=== PATIENT | female | born 1945 | race African-American/Black ===

== ENCOUNTER 2017-12-02 21:56 | Inpatient (IN) | payer MEDICARE ==
[2017-12-02 22:12] LABS: ADD MAN DIFF? NO
[2017-12-02] MEDS: IV NORMAL SALINE 1000ML BAG 1,000 ML IV (22:16)
[2017-12-02] MEDS: methylPREDNISolone SOD SUCC PF 125 MG/2 ML VIAL. IV (22:17)
[2017-12-02 22:19] LABS: BASO # 0.1 x10^3/uL (0.0-0.2); BASO % 1 % (0-3); EOS # 0.2 x10^3/uL (0.0-0.7); EOS % 2 % (0-3); LYMPH # 2.5 x10^3/uL (1.0-4.8); LYMPH % 24 % (24-48); MEAN CORPUSCULAR HEMOGLOBIN 31 pg (25-35); MEAN CORPUSCULAR HGB CONC 33 g/dL (31-37); MEAN CORPUSCULAR VOLUME 94 fL (79-100); MONO # 0.8 x10^3/uL (0.0-1.1); MONO % 8 % (0-9); NEUT % 66 % (31-73); PLATELET COUNT 260 x10^3/uL (140-400); RED BLOOD COUNT 1.82 x10^6/uL (3.50-5.40); RED CELL DISTRIBUTION WIDTH 16.6 % (11.5-14.5); WHITE BLOOD COUNT 10.6 x10^3/uL (4.0-11.0)
[2017-12-02 22:24] LABS: HEMOGLOBIN 5.6 g/dL (12.0-15.5)
[2017-12-02] MEDS: IPRATRPIUM/ALBUTEROL 0.5/2.5MG 3 ML NEBU. NEB ×2 (22:26→22:56)
[2017-12-02 22:31] LABS: ANION GAP 13 (6-14); BLOOD UREA NITROGEN 23 mg/dL (7-20); CALCIUM 8.4 mg/dL (8.5-10.1); CARBON DIOXIDE 24 mmol/L (21-32); CHLORIDE 107 mmol/L (98-107); CREATININE 1.2 mg/dL (0.6-1.0); GFR 53.3; GLUCOSE 196 mg/dL (70-99); POTASSIUM 3.9 mmol/L (3.5-5.1); SODIUM 144 mmol/L (136-145)
[2017-12-02 22:40] LABS: TROPONINI < 0.017 ng/mL (0.000-0.055)
[2017-12-02 23:32] LABS: INR 1.2 (0.8-1.1); PARTIAL THROMBOPLASTIN TIME 31 SEC (24-38); PROTHROMBIN TIME PATIENT 14.7 SEC (11.7-14.0)
[2017-12-03] MEDS ORDERED: ONDANSETRON PF 4 MG/2 ML VIAL. IV (00:45)
[2017-12-03 02:00] LABS: IMMEDIATE SPIN CROSSMATCH 1 4
[2017-12-03] MEDS: IV NORMAL SALINE 1000ML BAG 1,000 ML IV ×2 (04:46→18:02)
[2017-12-03] MEDS: IPRATRPIUM/ALBUTEROL 0.5/2.5MG 3 ML NEBU. NEB ×4 (07:24→19:34)
[2017-12-03 07:31] LABS: TROPONINI < 0.017 ng/mL (0.000-0.055)
[2017-12-03 07:37] LABS: FECAL OB PT POSITIVE (NEG); NEG OBC FOB NEG; POS OBC FOB POS
[2017-12-03 08:23] LABS: POC GLUCOSE 175 mg/dL (70-99)
[2017-12-03 12:45] LABS: POC GLUCOSE 178 mg/dL (70-99)
[2017-12-03] MEDS: FAMOTIDINE 20 MG/2 ML VIAL IVP ×2 (13:02→20:31)
[2017-12-03] MEDS: methylPREDNISolone SOD SUCC PF 40 MG/ML VIAL. IV ×2 (13:02→20:34)
[2017-12-03 13:38] LABS: ADD MAN DIFF? NO
[2017-12-03 13:41] LABS: BASO % 0 % (0-3); EOS % 0 % (0-3); HEMATOCRIT 24.9 % (36.0-47.0); HEMOGLOBIN 8.3 g/dL (12.0-15.5); LYMPH % 14 % (24-48); MEAN CORPUSCULAR HEMOGLOBIN 31 pg (25-35); MEAN CORPUSCULAR HGB CONC 34 g/dL (31-37); MEAN CORPUSCULAR VOLUME 91 fL (79-100); MONO # 0.2 x10^3/uL (0.0-1.1); MONO % 3 % (0-9); NEUT # 5.7 x10^3uL (1.8-7.7); NEUT % 83 % (31-73); PLATELET COUNT 231 x10^3/uL (140-400); RED BLOOD COUNT 2.74 x10^6/uL (3.50-5.40); RED CELL DISTRIBUTION WIDTH 15.8 % (11.5-14.5); WHITE BLOOD COUNT 6.9 x10^3/uL (4.0-11.0)
[2017-12-03 14:38] LABS: ALBUMIN 2.9 g/dL (3.4-5.0); ALBUMIN/GLOBULIN RATIO 0.9 (1.0-1.7); ALK PHOS 52 U/L (46-116); ALT (SGPT) 23 U/L (14-59); ANION GAP 13 (6-14); AST (SGOT) 17 U/L (15-37); BLOOD UREA NITROGEN 19 mg/dL (7-20); BUN/CREATININE RATIO 19 (6-20); CALCIUM 8.7 mg/dL (8.5-10.1); CARBON DIOXIDE 23 mmol/L (21-32); CHLORIDE 107 mmol/L (98-107); GFR 65.8; GLUCOSE 160 mg/dL (70-99); POTASSIUM 4.2 mmol/L (3.5-5.1); SODIUM 143 mmol/L (136-145); TOTAL BILIRUBIN 0.4 mg/dL (0.2-1.0); TOTAL PROTEIN 6.1 g/dL (6.4-8.2)
[2017-12-03 14:45] LABS: TROPONINI < 0.017 ng/mL (0.000-0.055)
[2017-12-03 17:06] LABS: POC GLUCOSE 164 mg/dL (70-99)
[2017-12-03] MEDS: DULoxetine HCL 30 MG CAPSULE.DR PO (17:55)
[2017-12-03] MEDS: rOPINIRole 1 MG TABLET. PO (17:55)
[2017-12-03] MEDS: SPIRONOLACTONE 25 MG TABLET PO (17:55)
[2017-12-03] MEDS: LOSARTAN POTASSIUM 50 MG TABLET. PO (17:55)
[2017-12-03] MEDS: traMADol 50 MG TABLET PO (17:56)
[2017-12-03] MEDS: MEMANTINE 10 MG TABLET. PO (20:29)
[2017-12-03 20:52] LABS: POC GLUCOSE 171 mg/dL (70-99)
[2017-12-03] MEDS: ACETAMINOPHEN 325 MG TABLET. PO (22:46)
[2017-12-04 05:15] LABS: ADD MAN DIFF? NO
[2017-12-04 05:32] LABS: BASO % 0 % (0-3); EOS % 0 % (0-3); HEMATOCRIT 27.9 % (36.0-47.0); HEMOGLOBIN 9.2 g/dL (12.0-15.5); LYMPH # 0.8 x10^3/uL (1.0-4.8); LYMPH % 8 % (24-48); MEAN CORPUSCULAR HEMOGLOBIN 30 pg (25-35); MEAN CORPUSCULAR HGB CONC 33 g/dL (31-37); MEAN CORPUSCULAR VOLUME 91 fL (79-100); MONO # 0.2 x10^3/uL (0.0-1.1); MONO % 2 % (0-9); NEUT # 9.2 x10^3uL (1.8-7.7); NEUT % 89 % (31-73); PLATELET COUNT 291 x10^3/uL (140-400); RED BLOOD COUNT 3.07 x10^6/uL (3.50-5.40); RED CELL DISTRIBUTION WIDTH 16.6 % (11.5-14.5); WHITE BLOOD COUNT 10.3 x10^3/uL (4.0-11.0)
[2017-12-04] MEDS: methylPREDNISolone SOD SUCC PF 40 MG/ML VIAL. IV (05:44)
[2017-12-04 05:53] LABS: ANION GAP 14 (6-14); BLOOD UREA NITROGEN 16 mg/dL (7-20); CALCIUM 8.9 mg/dL (8.5-10.1); CARBON DIOXIDE 21 mmol/L (21-32); CHLORIDE 106 mmol/L (98-107); GFR 65.8; GLUCOSE 166 mg/dL (70-99); POTASSIUM 4.2 mmol/L (3.5-5.1); SODIUM 141 mmol/L (136-145)
[2017-12-04] MEDS: IPRATRPIUM/ALBUTEROL 0.5/2.5MG 3 ML NEBU. NEB (07:46)
[2017-12-04 08:48] LABS: POC GLUCOSE 167 mg/dL (70-99)
[2017-12-04] MEDS: rOPINIRole 1 MG TABLET. PO (09:02)
[2017-12-04] MEDS: amLODIPine BESYLATE 10 MG TABLET PO (09:02)
[2017-12-04] MEDS: MEMANTINE 10 MG TABLET. PO (09:02)
[2017-12-04] MEDS: SPIRONOLACTONE 25 MG TABLET PO (09:02)
[2017-12-04] MEDS: FAMOTIDINE 20 MG/2 ML VIAL IVP (09:03)
[2017-12-04] MEDS: DULoxetine HCL 30 MG CAPSULE.DR PO (09:03)
[2017-12-04] MEDS: LOSARTAN POTASSIUM 50 MG TABLET. PO (09:03)
[2017-12-04 11:50] LABS: POC GLUCOSE 163 mg/dL (70-99)
== END 2017-12-04 13:30 | disposition home health service (06) | DRG 377 ==
LOC: 2 SOUTH 12-03 01:00 → ER 21:56
PROVIDERS: Neurological Surgery
PROC: 30233N1 Transfusion of Nonautologous Red Blood Cells into Peripheral Vein, Percutaneous Approach (ICD-10-PCS; principal; 2017-12-03)
DX: K57.31 Diverticulosis of large intestine without perforation or abscess with bleeding (principal); J96.01 Acute respiratory failure with hypoxia; E44.0 Moderate protein-calorie malnutrition; D62 Acute posthemorrhagic anemia; J44.1 Chronic obstructive pulmonary disease with (acute) exacerbation; E86.0 Dehydration; E11.9 Type 2 diabetes mellitus without complications; E78.00 Pure hypercholesterolemia, unspecified; E78.5 Hyperlipidemia, unspecified; Z68.28 Body mass index [BMI] 28.0-28.9, adult; F03.90 Unspecified dementia, unspecified severity, without behavioral disturbance, psychotic disturbance, mood disturbance, and anxiety; F17.210 Nicotine dependence, cigarettes, uncomplicated; F32.9 Major depressive disorder, single episode, unspecified; F41.9 Anxiety disorder, unspecified; G47.33 Obstructive sleep apnea (adult) (pediatric); I10 Essential (primary) hypertension; K21.9 Gastro-esophageal reflux disease without esophagitis; K29.80 Duodenitis without bleeding; K55.20 Angiodysplasia of colon without hemorrhage; K59.00 Constipation, unspecified; Z82.3 Family history of stroke; Z82.49 Family history of ischemic heart disease and other diseases of the circulatory system; Z86.010 Personal history of colon polyps; Z88.0 Allergy status to penicillin
CPT/HCPCS: 36415; 71045; 71046; 78278; 80048; 80053; 82274; 82962; 84484; 85025; 85610; 85730; 86850; 86900; 86901; 86920; 93005; 94618; 94640; 94760; 96361; 96374; 99291-25; A9560; J2920; J2930; J7030; J7620; P9016; S0028

== ENCOUNTER 2018-04-20 12:14 | Emergency (ER) | payer MEDICARE ==
[2018-04-20] MEDS: IPRATRPIUM/ALBUTEROL 0.5/2.5MG 3 ML NEBU. NEB (13:15)
[2018-04-20] MEDS: predniSONE 20 MG TABLET PO (14:03)
[2018-04-20 14:22] LABS: ADD MAN DIFF? NO
[2018-04-20 14:24] LABS: BASO # 0.1 x10^3/uL (0.0-0.2); BASO % 1 % (0-3); EOS # 0.1 x10^3/uL (0.0-0.7); EOS % 1 % (0-3); HEMATOCRIT 44.8 % (36.0-47.0); HEMOGLOBIN 15.2 g/dL (12.0-15.5); LYMPH # 1.9 x10^3/uL (1.0-4.8); LYMPH % 17 % (24-48); MEAN CORPUSCULAR HEMOGLOBIN 30 pg (25-35); MEAN CORPUSCULAR HGB CONC 34 g/dL (31-37); MEAN CORPUSCULAR VOLUME 88 fL (79-100); MONO # 0.9 x10^3/uL (0.0-1.1); MONO % 8 % (0-9); NEUT # 8.3 x10^3uL (1.8-7.7); NEUT % 74 % (31-73); PLATELET COUNT 202 x10^3/uL (140-400); RED BLOOD COUNT 5.12 x10^6/uL (3.50-5.40); RED CELL DISTRIBUTION WIDTH 16.7 % (11.5-14.5); WHITE BLOOD COUNT 11.2 x10^3/uL (4.0-11.0)
[2018-04-20 14:43] LABS: ANION GAP 7 (6-14); BLOOD UREA NITROGEN 11 mg/dL (7-20); BUN/CREATININE RATIO 14 (6-20); CALCIUM 9.2 mg/dL (8.5-10.1); CARBON DIOXIDE 28 mmol/L (21-32); CHLORIDE 103 mmol/L (98-107); CREATININE 0.8 mg/dL (0.6-1.0); GFR 84.8; GLUCOSE 106 mg/dL (70-99); POTASSIUM 3.8 mmol/L (3.5-5.1); SODIUM 138 mmol/L (136-145)
[2018-04-20 14:49] LABS: ALBUMIN 3.7 g/dL (3.4-5.0); ALBUMIN/GLOBULIN RATIO 0.8 (1.0-1.7); ALK PHOS 92 U/L (46-116); ALT (SGPT) 33 U/L (14-59); AST (SGOT) 22 U/L (15-37); TOTAL BILIRUBIN 0.6 mg/dL (0.2-1.0); TOTAL PROTEIN 8.1 g/dL (6.4-8.2)
[2018-04-20] MEDS: ALBUTEROL SULFATE 2.5 MG/3 ML NEBU. CONT NEB (15:21)
== END 2018-04-20 21:06 | disposition left against medical advice (07) ==
LOC: ER 12:14
DX: J44.9 Chronic obstructive pulmonary disease, unspecified (principal); E78.00 Pure hypercholesterolemia, unspecified; E11.9 Type 2 diabetes mellitus without complications; I10 Essential (primary) hypertension; F41.9 Anxiety disorder, unspecified; Z99.81 Dependence on supplemental oxygen; F17.210 Nicotine dependence, cigarettes, uncomplicated; Z88.0 Allergy status to penicillin
CPT/HCPCS: 36415; 71046; 80053; 85025; 93005; 94618; 94640; 94644; 99285-25; J7512; J7613; J7620

== ENCOUNTER 2018-12-10 20:12 | Emergency (ER) | payer MEDICARE ==
[~2018-12-10] VITALS: Ht 170.2 cm; Wt 81.6 kg
[~2018-12-10 20:12] MED LIST: AMLO10TA6 PO; ASCO-78 PO; BISO5TAB2 PO; DIAZ5TAB PO; DONE10TA7 PO; DULO20CA PO; FERR250T PO; FLUT1DIS3 IH; Fluticasone/Vilanterol INH; GABA800T3 PO; GUAI5LIQ PO; HYDR-2678 PO; LOSA100T14 PO; LOSA1TAB22 PO; MEMA10TA PO; METF500T9 PO; METH500T7 PO; NAPR-683 PO; OXYB10TA PO; OXYB15TA PO; OXYB5TAB7 PO; PANT40GR PO; POTA10TA12 PO; PRED-220 PO; PRED50TA PO; ROPI1TAB PO; SPIR25TA5 PO; VENTOLIN HFA18 GM INH; [UNRECOGNIZED DRUG - REMARK]
--- NOTE | 2018-12-10 20:39 | PHYS DOC ---
Past Medical History Past Medical History: Anxiety, COPD, Diabetes-Type II, GI Bleed, High Cholesterol, Hypertension, Other Additional Past Medical Histor: "MEMORY LOSS" (OLYA MORE APRN) Past Surgical History: Tonsillectomy, Other Additional Past Surgical Histo: BACK SURGERY X2, POLYPS REMOVED FROM THROAT (OLYA MORE APRN) Alcohol Use: Occasionally Drug Use: None (OLYA MORE APRN) Adult General Chief Complaint Chief Complaint: MECHANICAL FALL HPI HPI Patient is a 72 year old female who presents with tripped over her oxygen cord at home at 1930 and hit her face. Patient's bottom tooth went through her top lip. There are no broken teeth. (OLYA MORE APRN) Review of Systems Review of Systems Constitutional: Denies fever or chills [] Eyes: Denies change in visual acuity, redness, or eye pain [] HENT: Denies nasal congestion or sore throat [] Respiratory: Denies cough or shortness of breath [] Cardiovascular: No additional information not addressed in HPI [] GI: Denies abdominal pain, nausea, vomiting, bloody stools or diarrhea [] : Denies dysuria or hematuria [] Musculoskeletal: Denies back pain or joint pain [] Integument: laceration to inner upper lip. Denies rash or skin lesions [] Neurologic: Denies headache, focal weakness or sensory changes [] All other systems were reviewed and found to be within normal limits, except as documented in this note. (OLYA MORE APRN) Current Medications Current Medications Current Medications Medications (Trade) Dose Ordered Sig/Buffy Start Time Stop Time Status Last Admin Dose Admin Lidocaine/ Epinephrine (Let Topical) 3 ml 1X ONCE 12/10/18 20:45 12/10/18 20:46 DC 12/10/18 20:51 3 ML Lidocaine/Sodium Bicarbonate (Buffered Lidocaine 1%) 3 ml 1X ONCE 12/10/18 20:45 12/10/18 20:46 DC 12/10/18 20:52 3 ML Oxycodone/ Acetaminophen (Percocet 5/325) 1 tab 1X ONCE 12/10/18 21:30 12/10/18 21:31 DC 12/10/18 21:32 1 TAB (LUCY WHALEN DO) Allergies Allergies Allergies Coded Allergies Type Severity Reaction Last Updated Verified Penicillins Allergy Intermediate 11/22/18 Yes (LUCY WHALEN DO) Physical Exam Physical Exam Constitutional: Well developed, well nourished, no acute distress, non-toxic appearance. [] HENT: Normocephalic, atraumatic, bilateral external ears normal, oropharynx moist, no oral exudates, nose normal. [] Eyes: PERRLA, EOMI, conjunctiva normal, no discharge. [] Neck: Normal range of motion, no tenderness, supple, no stridor. [] Cardiovascular:Heart rate regular rhythm, no murmur [] Lungs & Thorax: Bilateral breath sounds clear to auscultation [] Abdomen: Bowel sounds normal, soft, no tenderness, no masses, no pulsatile masses. [] Skin: Laceration to inner mucosa of upper lip. Warm, dry, no erythema, no rash. [] Back: No tenderness, no CVA tenderness. [] Extremities: No tenderness, no cyanosis, no clubbing, ROM intact, no edema. [] Neurologic: Alert and oriented X 3, normal motor function, normal sensory function, no focal deficits noted. [] Psychologic: Affect normal, judgement normal, mood normal. [] (OLYA MORE APRN) Physical Exam Constitutional: No acute distress, non-toxic appearance. [] HENT: Normocephalic, atraumatic,mucosal lacerations to upper lip, no lilian border involvement Neurologic: Alert and oriented X 3, no focal deficits noted. [] (LUCY WHALEN DO) Current Patient Data Vital Signs Vital Signs Date Time Temp Pulse Resp B/P (MAP) Pulse Ox O2 Delivery O2 Flow Rate FiO2 12/10/18 22:00 79 20 100 12/10/18 21:32 Nasal Cannula 2.0 12/10/18 20:14 98.0 125/67 (86) 98.0 (LUCY WHALEN DO) EKG EKG [] (OLYA MORE APRN) Radiology/Procedures Radiology/Procedures CT HEAD, MAXILLOFACIAL, AND CERVICAL SPINE (OLYA MORE APRN) Impressions: [facility] [address] [place] [address] IMAGING REPORT Signed PATIENT: ELLE LATHAM ACCOUNT: [id number] : 1945 LOCATION: ER AGE: 72 SEX: F EXAM STATUS: REG ER ORD. PHYSICIAN: OLYA MORE APRN REASON: FALL PROCEDURE: CT CERVICAL SPINE WO CONTRAST PQRS Compliance Statement: One or more of the following individualized dose reduction techniques were utilized for this examination: 1. Automated exposure control 2. Adjustment of the mA and/or kV according to patient size 3. Use of iterative reconstruction technique CT head , maxillofacial and cervical spine without contrast 12/10/2018 8:31 PM INDICATION: Fall COMPARISON: CT head November 20, 2018 TECHNIQUE: Multiple axial CT images of the head were obtained from skull base through the vertex without intravenous contrast. Multiple axial CT images of the cervical spine and maxillofacial structures were obtained without intravenous contrast. Coronal and sagittal reformats are provided. FINDINGS: Head and maxillofacial: Ventricles, sulci and basal cisterns are within normal limits. There is no hydrocephalus. Jeong-white matter differentiation is normal. There is no acute intracranial hemorrhage. There is no mass, mass effect or midline shift. Posterior fossa is normal in appearance. Orbits are spherical and contour. Bilateral lens replacement is noted. There is no intraconal or extraconal mass is identified. Extraocular muscles are normal in appearance. Osseous orbits are intact. Paranasal sinuses are well aerated. Nasal septum is predominantly midline. Ostiomeatal units are widely patent. Skull base is intact. Soft tissue swelling is identified along the ventral aspect of the mandible. Mandible and maxilla are intact. Dentition appear intact. Cervical spine: Alignment of the cervical spine is normal. Skull base is intact. Craniocervical junction is normal in appearance. Atlantoaxial articulation is normal. Vertebral body heights are maintained without evidence for acute fracture. There is straightening of the normal cervical lordosis. There is moderate disc height loss at C4-C5, C5-C6 and C6-C7. There is endplate remodeling at C5-C6 and C6-C7 with endplate sclerosis. Superior endplate Schmorl's node is identified at C7. There is minimal height loss at C7 which is age indeterminate. There is no prevertebral soft tissue swelling. Thyroid gland is normal in appearance. Visualized portions of the lung apices are normal without evidence for suspicious pulmonary nodule or infiltrate. IMPRESSION: 1. No acute intracranial hemorrhage. Subcutaneous soft tissue swelling along the ventral mandible without maxillofacial fracture. 2. No acute malalignment. There is superior endplate Schmorl's node at C7 with minimal height loss. Findings may represent superior plate compression fracture in the appropriate clinical setting. Correlate with point tenderness. Alternatively, these findings may be chronic and secondary to remodeling from degenerative disc disease. Electronically signed by: Ludwin Erwin MD (12/10/2018 9:34 PM) [facility] DICTATED and SIGNED BY: LUDWIN ERWIN MD DATE: 12/10/182124 [facility] [address] [place], [place] [id number] IMAGING REPORT Signed PATIENT: ELLE LATHAM ACCOUNT: [id number] : 1945 LOCATION: ER AGE: 72 SEX: F EXAM STATUS: REG ER ORD. PHYSICIAN: OLYA MORE APRN REASON: FALL PROCEDURE: CT HEAD AND MAXILLOFACIAL WO PQRS Compliance Statement: One or more of the following individualized dose reduction techniques were utilized for this examination: 1. Automated exposure control 2. Adjustment of the mA and/or kV according to patient size 3. Use of iterative reconstruction technique CT head , maxillofacial and cervical spine without contrast 12/10/2018 8:31 PM INDICATION: Fall COMPARISON: CT head November 20, 2018 TECHNIQUE: Multiple axial CT images of the head were obtained from skull base through the vertex without intravenous contrast. Multiple axial CT images of the cervical spine and maxillofacial structures were obtained without intravenous contrast. Coronal and sagittal reformats are provided. FINDINGS: Head and maxillofacial: Ventricles, sulci and basal cisterns are within normal limits. There is no hydrocephalus. Jeong-white matter differentiation is normal. There is no acute intracranial hemorrhage. There is no mass, mass effect or midline shift. Posterior fossa is normal in appearance. Orbits are spherical and contour. Bilateral lens replacement is noted. There is no intraconal or extraconal mass is identified. Extraocular muscles are normal in appearance. Osseous orbits are intact. Paranasal sinuses are well aerated. Nasal septum is predominantly midline. Ostiomeatal units are widely patent. Skull base is intact. Soft tissue swelling is identified along the ventral aspect of the mandible. Mandible and maxilla are intact. Dentition appear intact. Cervical spine: Alignment of the cervical spine is normal. Skull base is intact. Craniocervical junction is normal in appearance. Atlantoaxial articulation is normal. Vertebral body heights are maintained without evidence for acute fracture. There is straightening of the normal cervical lordosis. There is moderate disc height loss at C4-C5, C5-C6 and C6-C7. There is endplate remodeling at C5-C6 and C6-C7 with endplate sclerosis. Superior endplate Schmorl's node is identified at C7. There is minimal height loss at C7 which is age indeterminate. There is no prevertebral soft tissue swelling. Thyroid gland is normal in appearance. Visualized portions of the lung apices are normal without evidence for suspicious pulmonary nodule or infiltrate. IMPRESSION: 1. No acute intracranial hemorrhage. Subcutaneous soft tissue swelling along the ventral mandible without maxillofacial fracture. 2. No acute malalignment. There is superior endplate Schmorl's node at C7 with minimal height loss. Findings may represent superior plate compression fracture in the appropriate clinical setting. Correlate with point tenderness. Alternatively, these findings may be chronic and secondary to remodeling from degenerative disc disease. Electronically signed by: Ludwin Erwin MD (12/10/2018 9:34 PM) [facility] DICTATED and SIGNED BY: LUDWIN ERWIN MD DATE: 12/10/182124 (OLYA MORE APRN) Course & Med Decision Making Course & Med Decision Making Patient is a 72 year old female who presents with tripped over her oxygen cord at home at 1930 and hit her face. Patient's bottom tooth went through her top lip. There are no broken teeth. Patient is alert and oriented. Strength in full clear sentences. Patient has no facial pain with palpation but she does have some slight tenderness and pain on her upper lip and right above her upper teeth. Patient has full range of motion of her neck. She has no tenderness in her neck or pain in her neck. Patient denies hitting her head elsewhere. Patient has no other trauma on her body. Patient has no spinal bony point tenderness. Patient moves all extremities with equal strength. Patient can move all extremities at all joints without pain or problem. There are no deformities seen. Patient states she's had a tetanus shot in the last 5 years. Patient denies LOC. Patient denies a headache or nausea, vomiting, neck pain or stiffness. Patient states her pain is a 5 out of 10. Patient states she last took a Percocet this morning. Patient will be given one Percocet in the ED. Patient has Percocet at home that she can take for pain and Chlorhexidine mouth wash. Laceration Repair by me: Anesthesia: 1% lidocaine locally Location: Inner Mucosa of upper lip Tendon/Joint/Nerves: No injury Foreign body: None detected after copious irrigation and exploration Technique: 4 Simple Interrupted Sutures Complexity: No subcutaneous sutures/mucosal repair/edge excision Post Closure Length: 1 cm Patient's bleeding was easily controlled in the department and there is no indication of anemia. No evidence of compartment syndrome, neurologic injury, vascular injury, open joint, tendon laceration, or foreign body. Patient is appropriate for outpatient follow up. 48 hour wound check. Scar minimization instructions given. (OLYA MORE APRN) Dragon Disclaimer Dragon Disclaimer This electronic medical record was generated, in whole or in part, using a voice recognition dictation system. (OLYA MORE MATE SHIP) Departure Departure Impression: Primary Impression: Fall Additional Impression: Laceration of mouth Disposition: HOME, SELF-CARE Condition: STABLE Referrals: MINI TREJO (PCP) Patient Instructions: Fall Prevention and Home Safety, Laceration Care, Adult, Mouth Laceration Additional Instructions: Return to the ER in 5-7 days for sutural removal. Use medication as described. Member to rinse out her mouth after eating or smoking. Try not to smoke. Try using ice for pain control with your pain medication. Scripts Chlorhexidine Gluconate (CHLORHEXIDINE GLUCONATE) 473 Ml Mouthwash 473 ML MM BID for 7 Days, #1 [facility] [place]: OLYA MORE MATE SHIP 12/10/18 Attending Signature Attending Signature I have personally interviewed and examined the patient. All charts, labs, and imaging studies were reviewed. I agree with the PA/DIRECTOR OF FRONT OFFICE's findings, exam, and plan. (LUCY WHALEN DO) Problem Qualifiers Primary Impression: Fall Encounter type: initial encounter Qualified Codes: W19.XXXA - Unspecified fall, initial encounter Additional Impression: Laceration of mouth Encounter type: initial encounter Qualified Codes: S01.512A - Laceration without foreign body of oral cavity, initial encounter OLYA MORE APRN Dec 10, 2018 20:39 LUCY WHALEN DO Dec 10, 2018 22:42
[2018-12-10] MEDS ORDERED: LIDOCAINE WITH 8.4% SOD BICARB 3 ML DISP.SYRIN. INJ ONE (20:45)
[2018-12-10] MEDS ORDERED: LIDOCAINE/EPI/TETRACAINE TOPICAL GEL 3 ML. TP ONE (20:45)
[2018-12-10] MEDS ORDERED: oxyCODONE/APAP 5/325 1 TAB TABLET PO ONE (21:30)
--- NOTE | 2018-12-10 21:39 | RAD ---
PQRS Compliance Statement: One or more of the following individualized dose reduction techniques were utilized for this examination: 1. Automated exposure control 2. Adjustment of the mA and/or kV according to patient size 3. Use of iterative reconstruction technique CT head , maxillofacial and cervical spine without contrast 12/10/2018 8:31 PM INDICATION: Fall COMPARISON: CT head November 20, 2018 TECHNIQUE: Multiple axial CT images of the head were obtained from skull base through the vertex without intravenous contrast. Multiple axial CT images of the cervical spine and maxillofacial structures were obtained without intravenous contrast. Coronal and sagittal reformats are provided. FINDINGS: Head and maxillofacial: Ventricles, sulci and basal cisterns are within normal limits. There is no hydrocephalus. Jeong-white matter differentiation is normal. There is no acute intracranial hemorrhage. There is no mass, mass effect or midline shift. Posterior fossa is normal in appearance. Orbits are spherical and contour. Bilateral lens replacement is noted. There is no intraconal or extraconal mass is identified. Extraocular muscles are normal in appearance. Osseous orbits are intact. Paranasal sinuses are well aerated. Nasal septum is predominantly midline. Ostiomeatal units are widely patent. Skull base is intact. Soft tissue swelling is identified along the ventral aspect of the mandible. Mandible and maxilla are intact. Dentition appear intact. Cervical spine: Alignment of the cervical spine is normal. Skull base is intact. Craniocervical junction is normal in appearance. Atlantoaxial articulation is normal. Vertebral body heights are maintained without evidence for acute fracture. There is straightening of the normal cervical lordosis. There is moderate disc height loss at C4-C5, C5-C6 and C6-C7. There is endplate remodeling at C5-C6 and C6-C7 with endplate sclerosis. Superior endplate Schmorl's node is identified at C7. There is minimal height loss at C7 which is age indeterminate. There is no prevertebral soft tissue swelling. Thyroid gland is normal in appearance. Visualized portions of the lung apices are normal without evidence for suspicious pulmonary nodule or infiltrate. IMPRESSION: 1. No acute intracranial hemorrhage. Subcutaneous soft tissue swelling along the ventral mandible without maxillofacial fracture. 2. No acute malalignment. There is superior endplate Schmorl's node at C7 with minimal height loss. Findings may represent superior plate compression fracture in the appropriate clinical setting. Correlate with point tenderness. Alternatively, these findings may be chronic and secondary to remodeling from degenerative disc disease. Electronically signed by: Mary Lorenzo MD (12/10/2018 9:34 PM) [facility]
[2018-12-10] MEDS ORDERED: CHLO473M MM (22:22)
[2018-12-10 22:30] VITALS: BP 113/55
== END 2018-12-10 22:34 | disposition home or self-care (01) ==
LOC: ER 20:12
DX: S01.512A Laceration without foreign body of oral cavity, initial encounter (principal); E78.00 Pure hypercholesterolemia, unspecified; I10 Essential (primary) hypertension; E11.9 Type 2 diabetes mellitus without complications; J44.9 Chronic obstructive pulmonary disease, unspecified; Z88.0 Allergy status to penicillin; W01.198A Fall on same level from slipping, tripping and stumbling with subsequent striking against other object, initial encounter; Y93.89 Activity, other specified; Y92.89 Other specified places as the place of occurrence of the external cause; Y99.8 Other external cause status
CPT/HCPCS: 12011; 70450; 70486; 72125; 99285-25

== ENCOUNTER 2018-12-14 13:02 | Inpatient (IN) | payer MEDICARE ==
[~2018-12-14] VITALS: Ht 170.2 cm; Wt 85.0 kg
[2018-12-14] VITALS (8 sets, daily range): BP systolic 98–146; BP diastolic 61–73
[~2018-12-14 13:02] MED LIST changes: -AMLO10TA6 PO; +AMLO10TA8 PO; +CHLO473M MM; -GABA800T3 PO; +GABA800T5 PO
[2018-12-14] MEDS ORDERED: IV NORMAL SALINE 1000ML BAG 1,000 ML IV ONE (13:30)
[2018-12-14 14:12] LABS: BASO % 1 % (0-3); EOS % 0 % (0-3); LYMPH # 1.5 x10^3/uL (1.0-4.8); LYMPH % 17 % (24-48); MEAN CORPUSCULAR HEMOGLOBIN 23 pg (25-35); MEAN CORPUSCULAR HGB CONC 31 g/dL (31-37); MEAN CORPUSCULAR VOLUME 75 fL (79-100); MONO # 0.8 x10^3/uL (0.0-1.1); MONO % 9 % (0-9); NEUT # 6.1 x10^3uL (1.8-7.7); NEUT % 73 % (31-73); PLATELET COUNT 336 x10^3/uL (140-400); RED BLOOD COUNT 2.58 x10^6/uL (3.50-5.40); RED CELL DISTRIBUTION WIDTH 20.5 % (11.5-14.5); WHITE BLOOD COUNT 8.5 x10^3/uL (4.0-11.0)
--- NOTE | 2018-12-14 14:13 | PDOC2 ---
ABRAHAM WEBER PORCELAIN ENAMELER 12/14/18 1413: CONSULT Date of Consult Date of Consult DATE: 12/14/18 TIME: 14:03 Reason for Consult Reason for Consult: GI bleed Referring Physician Referring Physician: ER Identification/Chief Complaint Chief Complaint gi bleed Source Source: Chart review, Patient History of Present Illness Reason for Visit: Ongoing issues with GI bleed for several months, has been following with Dr Austin 11/24 at [facility] CT showed focal extravasation mid sigmoid, however negative bleeding scan capsule study study 12/07 showed retained blood in right colon colonoscopy showed diverticula in sigmoid, no other findings and no active bleeding Returns due to anemia when labs done at GI office yesterday Past Medical History Cardiovascular: HTN Pulmonary: Asthma, Bronchitis, COPD Past Surgical History Past Surgical History: No pertinent history Family History Family History: No Significant, Heart Disease Social History Social History: Parent <1 pack per day ALCOHOL: none Drugs: None Lives: with Family Current Medications Current Medications Current Medications Sodium Chloride 1,000 ml @ 1,000 mls/hr 1X ONCE IV Last administered on at 13:52; Start 12/14/18 at 13:30; Stop 12/14/18 at 14:29 Active Scripts Active Chlorhexidine Gluconate 473 Ml Mouthwash 473 Ml MM BID 7 Days Vitamin C (Ascorbate Calcium) 500 Mg Tablet 500 Mg PO DAILY 30 Days Slow Release Iron (Ferrous Sulfate) 250 Mg Tablet.er 250 Mg PO DAILY 30 Days Protonix (Pantoprazole Sodium) 40 Mg Grankofikt.dr 40 Mg PO DAILY 30 Days Reported Metformin Hcl Er (Metformin Hcl) 500 Mg Tab.er.24h 1 Tab PO DAILY Namenda (Memantine Hcl) 10 Mg Tablet 1 Tab PO BID Losartan Potassium 100 Mg Tablet 100 Mg PO DAILY Spironolactone 25 Mg Tablet 1 Tab PO DAILY Ventolin Hfa Inhaler (Albuterol Sulfate) 18 Gm Hfa.aer.ad 2 Puff INH Q4HRS Cymbalta (Duloxetine Hcl) 20 Mg Capsule.dr 90 Mg PO DAILY Requip (Ropinirole Hcl) 1 Mg Tablet 3 Mg PO DAILY Amlodipine Besylate 10 Mg Tablet 10 Mg PO DAILY Allergies Allergies: Coded Allergies: Penicillins (Verified Allergy, Intermediate, 11/22/18) ROS General: YES: Appetite (lack); No: Chills PSYCHOLOGICAL ROS: No: Anxiety, Depression Eyes: No Blurry vision, No Double vision HEENT: No: Heacaches, Sore Throat Hematological and Lymphatic: YES: Bleeding Problems; No: Blood Clots Respiratory: YES: Shortness of breath; No: Cough Cardiovascular: No Chest Pain, No Palpitations Gastrointestinal: No Nausea, No Abdominal Pain Genitourinary: No Dysuria, No Hematuria Musculoskeletal: Yes Muscular Weakness; No Joint Pain Neurological: No Impaired Coord/balance, No Numbness/Tingling Skin: No Pruritus, No Rash Physical Exam General: Alert, Oriented X3, Cooperative, No acute distress HEENT: PERRLA, Mucous membr. moist/pink Lungs: Clear to auscultation, Normal air movement Heart: Regular rate, Normal S1, Normal S2, No murmurs Abdomen: Soft, Other (ND, NTTP) Extremities: No clubbing, No cyanosis Skin: No rashes, No breakdown Neuro: Normal gait, Normal speech Psych/Mental Status: Mental status NL, Mood NL MUSCULOSKELETAL: No deformity, No swelling Vitals VITALS Vital Signs Date Time Temp Pulse Resp B/P (MAP) Pulse Ox O2 Delivery O2 Flow Rate FiO2 12/14/18 13:05 98.5 97 24 125/78 (94) 98 Room Air 98.5 Assessment/Plan Assessment/Plan Gi bleed testing did not identify bleeding source--findings of tic in sigmoid on scope, capsule showed retained blood in right colon would rec bleeding scan DAYLIN WEI MD 12/15/18 0849: CONSULT Assessment/Plan Assessment/Plan Patient seen and examined. Denies abd pain has some nausea but no vomiting. Abd soft, ND NT CT reviewed showing no abnormalities and bleeding scan negative. Will await further recommendations from ABRAHAM MCMAHAN APRN Dec 14, 2018 14:13 DAYLIN WEI MD Dec 15, 2018 08:49
[2018-12-14 14:17] LABS: CALCIUM 9.8 mg/dL (8.5-10.1); CREATININE 1.2 mg/dL (0.6-1.0); GFR 53.1; POTASSIUM 4.1 mmol/L (3.5-5.1)
[2018-12-14 14:18] LABS: HEMATOCRIT 19.4 % (36.0-47.0)
[2018-12-14 14:19] LABS: PROTHROMBIN TIME PATIENT 14.3 SEC (11.7-14.0)
[2018-12-14 14:23] LABS: ALBUMIN 3.4 g/dL (3.4-5.0); ALBUMIN/GLOBULIN RATIO 0.9 (1.0-1.7); TOTAL BILIRUBIN 0.4 mg/dL (0.2-1.0); TOTAL PROTEIN 7.4 g/dL (6.4-8.2)
[2018-12-14 14:43] LABS: ANISOCYTOSIS MOD; HYPOCHROMIA SLIGHT; PLT ESTIMATE ADEQUATE (ADEQUATE); POIKILOCYTOSIS SLIGHT
[2018-12-14 14:44] LABS: MICROCYTOSIS SLIGHT; POLYCHROMASIA SLIGHT; SPHEROCYTES OCC; TARGET CELLS FEW
[2018-12-14 14:45] LABS: OVALOCYTES OCC; SCHISTOCYTES OCC
--- NOTE | 2018-12-14 15:10 | EKG ---
[facility] [address] [place] [address] Test Date: 2018-12-14 Test Time: 13:17:10 Pat Name: ELLE LATHAM Department: Room: 508 1 Gender: F Field Liability Generalist: : 1945 Requested By: ANDRES GÓMEZ Order Number: [id number] Reading MD: Wes Christianson MD Measurements Intervals Girard Rate: 70 P: DE: QRS: 24 QRSD: 82 T: 54 QT: 402 QTc: 436 Interpretive Statements BASELINE ARTIFACT CANNOT RULE OUT AFIB PROBABLE SINUS RHYTHM WITH PAC'S RECOMMEND REPEAT EKG Electronically Signed On 12-20-2018 9:25:59 TELECOMMUNICATIONS SWITCH TECHNICIAN by Wes Christianson MD
--- NOTE | 2018-12-14 15:50 | PDOC1 ---
History and Physical Date of Admission Date of Admission DATE: 12/14/18 TIME: 15:48 Identification/Chief Complaint Chief Complaint GI bleed for several months, has been following with Dr Austin sent for admit with low hgb today, transfused in er Past Medical History Cardiovascular: HTN Pulmonary: Asthma, Bronchitis, COPD Past Surgical History Past Surgical History: No pertinent history Family History Family History: No Significant, Heart Disease Family History: Parent Social History Smoke: <1 pack per day ALCOHOL: none Drugs: None Current Medications Current Medications Current Medications Sodium Chloride 1,000 ml @ 1,000 mls/hr 1X ONCE IV Last administered on at 13:52; Start 12/14/18 at 13:30; Stop 12/14/18 at 14:29; Status DC Active Scripts Active Chlorhexidine Gluconate 473 Ml Mouthwash 473 Ml MM BID 7 Days Vitamin C (Ascorbate Calcium) 500 Mg Tablet 500 Mg PO DAILY 30 Days Slow Release Iron (Ferrous Sulfate) 250 Mg Tablet.er 250 Mg PO DAILY 30 Days Protonix (Pantoprazole Sodium) 40 Mg Granpkt.dr 40 Mg PO DAILY 30 Days Reported Metformin Hcl Er (Metformin Hcl) 500 Mg Tab.er.24h 1 Tab PO DAILY Namenda (Memantine Hcl) 10 Mg Tablet 1 Tab PO BID Losartan Potassium 100 Mg Tablet 100 Mg PO DAILY Spironolactone 25 Mg Tablet 1 Tab PO DAILY Ventolin Hfa Inhaler (Albuterol Sulfate) 18 Gm Hfa.aer.ad 2 Puff INH Q4HRS Cymbalta (Duloxetine Hcl) 20 Mg Capsule.dr 90 Mg PO DAILY Requip (Ropinirole Hcl) 1 Mg Tablet 3 Mg PO DAILY Amlodipine Besylate 10 Mg Tablet 10 Mg PO DAILY Allergies Allergies: Coded Allergies: Penicillins (Verified Allergy, Intermediate, 11/22/18) ROS Review of System Review of Systems Review of Systems Constitutional: Denies fever or chills [] Eyes: Denies change in visual acuity, redness, or eye pain [] HENT: Denies nasal congestion or sore throat [] Respiratory: Denies cough or shortness of breath [] Cardiovascular: No additional information not addressed in HPI [] GI: Denies abdominal pain, nausea, vomiting, bloody stools or diarrhea [] : Denies dysuria or hematuria [] Musculoskeletal: Denies back pain or joint pain [] Integument: laceration to inner upper lip. Denies rash or skin lesions [] Neurologic: Denies headache, focal weakness or sensory changes [] 14 pt systems were reviewed and found to be within normal limits, except as documented . Gastrointestinal: Yes Melena Physical Exam Physical Exam Physical Exam Physical Exam Constitutional: Well developed, well nourished, no acute distress, non-toxic appearance. [] HENT: Normocephalic, atraumatic, bilateral external ears normal, oropharynx moist, no oral exudates, nose normal. [] Eyes: PERRLA, EOMI, conjunctiva normal, no discharge. [] Neck: Normal range of motion, no tenderness, supple, no stridor. [] Cardiovascular:Heart rate regular rhythm, no murmur [] Lungs & Thorax: Bilateral breath sounds clear to auscultation [] Abdomen: Bowel sounds normal, soft, no tenderness, no masses, no pulsatile masses. [] Skin: Laceration to inner mucosa of upper lip. Warm, dry, no erythema, no rash. [] Back: No tenderness, no CVA tenderness. [] Extremities: No tenderness, no cyanosis, no clubbing, ROM intact, no edema. [] Neurologic: Alert and oriented X 3, normal motor function, normal sensory function, no focal deficits noted. [] Psychologic: Affect normal, judgement normal, mood normal. [] General: Alert, Oriented X3, Cooperative Breasts: Not examined Abdomen: Soft Extremities: No cyanosis Neuro: Cranial nerves 3-12 NL Psych/Mental Status: Mental status NL, Mood NL Vitals Vitals Vital Signs Date Time Temp Pulse Resp B/P (MAP) Pulse Ox O2 Delivery O2 Flow Rate FiO2 12/14/18 14:39 62 18 114/61 (78) 93 Room Air 12/14/18 13:05 98.5 98.5 Labs Labs Laboratory Tests Test 12/14/18 13:44 White Blood Count 8.5 x10^3/uL (4.0-11.0) Red Blood Count 2.58 x10^6/uL (3.50-5.40) Hemoglobin 6.0 g/dL (12.0-15.5) Hematocrit 19.4 % (36.0-47.0) Mean Corpuscular Volume 75 fL (79-100) Mean Corpuscular Hemoglobin 23 pg (25-35) Mean Corpuscular Hemoglobin Concent 31 g/dL (31-37) Red Cell Distribution Width 20.5 % (11.5-14.5) Platelet Count 336 x10^3/uL (140-400) Neutrophils (%) (Auto) 73 % (31-73) Lymphocytes (%) (Auto) 17 % (24-48) Monocytes (%) (Auto) 9 % (0-9) Eosinophils (%) (Auto) 0 % (0-3) Basophils (%) (Auto) 1 % (0-3) Neutrophils # (Auto) 6.1 x10^3uL (1.8-7.7) Lymphocytes # (Auto) 1.5 x10^3/uL (1.0-4.8) Monocytes # (Auto) 0.8 x10^3/uL (0.0-1.1) Eosinophils # (Auto) 0.0 x10^3/uL (0.0-0.7) Basophils # (Auto) 0.0 x10^3/uL (0.0-0.2) Platelet Estimate Adequate (ADEQUATE) Polychromasia Slight Hypochromasia Slight Poikilocytosis Slight Anisocytosis Mod Microcytosis Slight Spherocytes Occ Target Cells Few Ovalocytes Occ Schistocytes Occ Prothrombin Time 14.3 SEC (11.7-14.0) Prothromb Time International Ratio 1.1 (0.8-1.1) Activated Partial Thromboplast Time 29 SEC (24-38) Sodium Level 140 mmol/L (136-145) Potassium Level 4.1 mmol/L (3.5-5.1) Chloride Level 101 mmol/L (98-107) Carbon Dioxide Level 29 mmol/L (21-32) Anion Gap 10 (6-14) Blood Urea Nitrogen 21 mg/dL (7-20) Creatinine 1.2 mg/dL (0.6-1.0) Estimated GFR (Cockcroft-Gault) 53.1 BUN/Creatinine Ratio 18 (6-20) Glucose Level 141 mg/dL (70-99) Calcium Level 9.8 mg/dL (8.5-10.1) Total Bilirubin 0.4 mg/dL (0.2-1.0) Aspartate Amino Transf (AST/SGOT) 14 U/L (15-37) Alanine Aminotransferase (ALT/SGPT) 22 U/L (14-59) Alkaline Phosphatase 63 U/L (46-116) Total Protein 7.4 g/dL (6.4-8.2) Albumin 3.4 g/dL (3.4-5.0) Albumin/Globulin Ratio 0.9 (1.0-1.7) Laboratory Tests Test 12/14/18 13:44 White Blood Count 8.5 x10^3/uL (4.0-11.0) Red Blood Count 2.58 x10^6/uL (3.50-5.40) Hemoglobin 6.0 g/dL (12.0-15.5) Hematocrit 19.4 % (36.0-47.0) Mean Corpuscular Volume 75 fL (79-100) Mean Corpuscular Hemoglobin 23 pg (25-35) Mean Corpuscular Hemoglobin Concent 31 g/dL (31-37) Red Cell Distribution Width 20.5 % (11.5-14.5) Platelet Count 336 x10^3/uL (140-400) Neutrophils (%) (Auto) 73 % (31-73) Lymphocytes (%) (Auto) 17 % (24-48) Monocytes (%) (Auto) 9 % (0-9) Eosinophils (%) (Auto) 0 % (0-3) Basophils (%) (Auto) 1 % (0-3) Neutrophils # (Auto) 6.1 x10^3uL (1.8-7.7) Lymphocytes # (Auto) 1.5 x10^3/uL (1.0-4.8) Monocytes # (Auto) 0.8 x10^3/uL (0.0-1.1) Eosinophils # (Auto) 0.0 x10^3/uL (0.0-0.7) Basophils # (Auto) 0.0 x10^3/uL (0.0-0.2) Platelet Estimate Adequate (ADEQUATE) Polychromasia Slight Hypochromasia Slight Poikilocytosis Slight Anisocytosis Mod Microcytosis Slight Spherocytes Occ Target Cells Few Ovalocytes Occ Schistocytes Occ Prothrombin Time 14.3 SEC (11.7-14.0) Prothromb Time International Ratio 1.1 (0.8-1.1) Activated Partial Thromboplast Time 29 SEC (24-38) Sodium Level 140 mmol/L (136-145) Potassium Level 4.1 mmol/L (3.5-5.1) Chloride Level 101 mmol/L (98-107) Carbon Dioxide Level 29 mmol/L (21-32) Anion Gap 10 (6-14) Blood Urea Nitrogen 21 mg/dL (7-20) Creatinine 1.2 mg/dL (0.6-1.0) Estimated GFR (Cockcroft-Gault) 53.1 BUN/Creatinine Ratio 18 (6-20) Glucose Level 141 mg/dL (70-99) Calcium Level 9.8 mg/dL (8.5-10.1) Total Bilirubin 0.4 mg/dL (0.2-1.0) Aspartate Amino Transf (AST/SGOT) 14 U/L (15-37) Alanine Aminotransferase (ALT/SGPT) 22 U/L (14-59) Alkaline Phosphatase 63 U/L (46-116) Total Protein 7.4 g/dL (6.4-8.2) Albumin 3.4 g/dL (3.4-5.0) Albumin/Globulin Ratio 0.9 (1.0-1.7) Images Images STATUS: REG ER ORD. PHYSICIAN: OLYA MORE APRN REASON: FALL PROCEDURE: CT CERVICAL SPINE WO CONTRAST PQRS Compliance Statement: One or more of the following individualized dose reduction techniques were utilized for this examination: 1. Automated exposure control 2. Adjustment of the mA and/or kV according to patient size 3. Use of iterative reconstruction technique CT head , maxillofacial and cervical spine without contrast 12/10/2018 8:31 PM INDICATION: Fall COMPARISON: CT head November 20, 2018 TECHNIQUE: Multiple axial CT images of the head were obtained from skull base through the vertex without intravenous contrast. Multiple axial CT images of the cervical spine and maxillofacial structures were obtained without intravenous contrast. Coronal and sagittal reformats are provided. FINDINGS: Head and maxillofacial: Ventricles, sulci and basal cisterns are within normal limits. There is no hydrocephalus. Jeong-white matter differentiation is normal. There is no acute intracranial hemorrhage. There is no mass, mass effect or midline shift. Posterior fossa is normal in appearance. Orbits are spherical and contour. Bilateral lens replacement is noted. There is no intraconal or extraconal mass is identified. Extraocular muscles are normal in appearance. Osseous orbits are intact. Paranasal sinuses are well aerated. Nasal septum is predominantly midline. Ostiomeatal units are widely patent. Skull base is intact. Soft tissue swelling is identified along the ventral aspect of the mandible. Mandible and maxilla are intact. Dentition appear intact. Cervical spine: Alignment of the cervical spine is normal. Skull base is intact. Craniocervical junction is normal in appearance. Atlantoaxial articulation is normal. Vertebral body heights are maintained without evidence for acute fracture. There is straightening of the normal cervical lordosis. There is moderate disc height loss at C4-C5, C5-C6 and C6-C7. There is endplate remodeling at C5-C6 and C6-C7 with endplate sclerosis. Superior endplate Schmorl's node is identified at C7. There is minimal height loss at C7 which is age indeterminate. There is no prevertebral soft tissue swelling. Thyroid gland is normal in appearance. Visualized portions of the lung apices are normal without evidence for suspicious pulmonary nodule or infiltrate. IMPRESSION: 1. No acute intracranial hemorrhage. Subcutaneous soft tissue swelling along the ventral mandible without maxillofacial fracture. 2. No acute malalignment. There is superior endplate Schmorl's node at C7 with minimal height loss. Findings may represent superior plate compression fracture in the appropriate clinical setting. Correlate with point tenderness. Alternatively, these findings may be chronic and secondary to remodeling from degenerative disc disease. Electronically signed by: Ludwin Erwin MD (12/10/2018 9:34 PM) [facility] DICTATED and SIGNED BY: LUDWIN ERWIN MD DATE: 12/10/182124 VTE Prophylaxis Ordered VTE Prophylaxis Devices: Yes VTE Pharmacological Prophylaxi: Contraindicated Assessment/Plan Assessment/Plan Assessment/Plan Assessment/Plan Gi bleed acute testing with capsule showed retained blood in right colon bleeding scan today, gen surg consult DAYLIN MILLER MD Dec 14, 2018 15:50
--- NOTE | 2018-12-14 16:18 | RAD ---
NUCLEAR MEDICINE TAGGED RBC SCAN Clinical Indication: Dark tarry stool for several months, admitted today for anemia. COMPARISON: Tagged red blood cell scan October 26, 2018. Technique: Patient was injected with 31 mCi of technetium 99m labeled red blood cells using Ultratag technique. Then anterior dynamic images of the abdomen were obtained for 60 minutes. Findings: Lower chest is included in the [id number], similar to prior study. On the first image there is faint diffuse tracer uptake in the stomach that gradually increases throughout the study and the distribution is homogeneous throughout the stomach. Finding likely due to free pertechnetate. The pattern of uptake is not suggestive of GI bleed. There is gradual tracer accumulation in the urinary bladder, a normal finding. Urinary contamination is noted inferiorly near the end of the study. There is no gradual accumulation and propagation of tracer to indicate an active GI bleed. IMPRESSION: Study is negative for acute GI bleed. Electronically signed by: Bruno Kinney MD (12/14/2018 4:14 PM) [id number]
[2018-12-14] MEDS: ASCORBIC ACID 500 MG TABLET PO SCH (17:00)
[2018-12-14] MEDS: amLODIPine BESYLATE 10 MG TABLET PO SCH (17:00)
[2018-12-14] MEDS: LOSARTAN POTASSIUM 50 MG TABLET. PO SCH (17:00)
[2018-12-14] MEDS: DULoxetine HCL 30 MG CAPSULE.DR PO SCH (17:00)
[2018-12-14] MEDS: FERROUS SULFATE 325 MG TABLET. PO SCH (17:00)
[2018-12-14] MEDS: PANTOPRAZOLE 40 MG TABLET.DR. PO SCH (17:00)
[2018-12-14] MEDS: SPIRONOLACTONE 25 MG TABLET PO SCH (17:00)
--- NOTE | 2018-12-14 17:28 | NUR ---
All 1700 medications not given, patient stated she took all her medications the morning.
[2018-12-14] MEDS: IV NORMAL SALINE 1000ML BAG 1,000 ML IV SCH (17:37)
--- NOTE | 2018-12-14 17:51 | PHYS DOC ---
Past Medical History Past Medical History: Anxiety, COPD, Diabetes-Type II, GI Bleed, High Cholesterol, Hypertension, Other Additional Past Medical Histor: "MEMORY LOSS" (ANDRES GÓMEZ APRN) Past Surgical History: Tonsillectomy, Other Additional Past Surgical Histo: BACK SURGERY X2, POLYPS REMOVED FROM THROAT (ANDRES GÓMEZ APRN) Alcohol Use: Occasionally Drug Use: None (ANDRES GÓMEZ APRN) Adult General Chief Complaint Chief Complaint: SHORTNESS OF BREATH HPI HPI Patient is a 72 year old female who presents with anemia and a GI bleed. The patient was seen at Dr. Davi Austin's office. She was supposed to be seen by Dr. Balderrama later this week but it was noted that her hemoglobin was 6.3. She was instructed to go to the emergency department for transfusion. She has exercise intolerance and fatigue. She denies syncope. (ANDRES GÓMEZ APRN) Review of Systems Review of Systems Constitutional: Denies fever or chills [] Eyes: Denies change in visual acuity, redness, or eye pain [] HENT: Denies nasal congestion or sore throat [] Respiratory: Denies cough or shortness of breath [] Cardiovascular: No additional information not addressed in HPI [] GI: See history of present illness : Denies dysuria or hematuria [] Musculoskeletal: Denies back pain or joint pain [] Integument: Denies rash or skin lesions [] Neurologic: Denies headache, focal weakness or sensory changes [] Endocrine: Denies polyuria or polydipsia [] All other systems were reviewed and found to be within normal limits, except as documented in this note. (ANDRES GÓMEZ APRN) Current Medications Current Medications Current Medications Medications (Trade) Dose Ordered Sig/Buffy Start Time Stop Time Status Last Admin Dose Admin Sodium Chloride 1,000 ml @ 1,000 mls/hr 1X ONCE 12/14/18 13:30 12/14/18 14:29 DC 12/14/18 13:52 1,000 MLS/HR (LUCY WHALEN DO) Allergies Allergies Allergies Coded Allergies Type Severity Reaction Last Updated Verified Penicillins Allergy Intermediate 11/22/18 Yes (LUCY WHALEN DO) Physical Exam Physical Exam Constitutional: Well developed, well nourished, no acute distress, non-toxic appearance. [] HENT: Normocephalic, atraumatic, bilateral external ears normal, oropharynx moist, no oral exudates, nose normal. [] Eyes: PERRLA, EOMI, conjunctiva normal, no discharge. [] Neck: Normal range of motion, no tenderness, supple, no stridor. [] Cardiovascular:Heart rate regular rhythm, no murmur [] Lungs & Thorax: Bilateral breath sounds clear to auscultation [] Abdomen: Bowel sounds normal, firm, mild abdominal tenderness to right mid quadrant, no masses, no pulsatile masses. [] Skin: Warm, dry, no erythema, no rash. [] Back: No tenderness, no CVA tenderness. [] Extremities: No tenderness, no cyanosis, no clubbing, ROM intact, no edema. [] Neurologic: Alert and oriented X 3, normal motor function, normal sensory function, no focal deficits noted. [] Psychologic: Affect normal, judgement normal, mood normal. [] (ANDRES GÓMEZ APRN) Current Patient Data Vital Signs Vital Signs Date Time Temp Pulse Resp B/P (MAP) Pulse Ox O2 Delivery O2 Flow Rate FiO2 12/14/18 13:05 98.5 97 24 125/78 (94) 98 Room Air 98.5 (WHALENLUCY FOURNIER DO) EKG EKG [] (ANDRES GÓMEZ APRN) Radiology/Procedures Radiology/Procedures [] (ANDRES GÓMEZ APRN) Course & Med Decision Making Course & Med Decision Making Pertinent Labs and Imaging studies reviewed. (See chart for details) []Transfusion has been ordered for the patient. She is being admitted to Dr. Ball's service. Dr. Montoya was consulted in the care of this patient. (ANDRES GÓMEZ APRN) Dragon Disclaimer Dragon Disclaimer This electronic medical record was generated, in whole or in part, using a voice recognition dictation system. (ANDRES GÓMEZ APRN) Departure Departure Impression: Primary Impression: GI bleed Additional Impression: Anemia Disposition: ADMITTED INPATIENT Admitting Physician: Elmer Vasquez (ANDRES GÓMEZ APRN) Condition: GOOD Referrals: MINI TREJO (PCP) Attending Signature Attending Signature I have reviewed the PA/SAP TRAINER's note and plan of care. I was available for consultation as needed during the patient's visit in the emergency department. I agree with the clinical impression, plan, and disposition. (LUCY WHALEN DO) Problem Qualifiers ANDRES GÓMEZ APRN Dec 14, 2018 17:51 LUCY WHALEN DO Dec 14, 2018 20:46
[2018-12-14] MEDS ORDERED: NON FORMULARY ITEM (Albuterol Sulfate (Ventolin Hfa Inhaler) 2 PUFF) INH SCH (20:00)
[2018-12-14] MEDS: ALBUTEROL SULFATE 2.5 MG/3 ML NEBU. NEB SCH ×2 (20:05→23:56)
[2018-12-14] MEDS: rOPINIRole 1 MG TABLET. PO SCH (21:24)
[2018-12-14] MEDS: CHLORHEXIDINE 0.12% 15 ML MOUTHWASH. MM SCH (21:24)
[2018-12-14] MEDS: MEMANTINE 10 MG TABLET. PO SCH (21:24)
--- NOTE | 2018-12-14 21:31 | RAD ---
Abdominal and Pelvis CT, Without Contrast: History: GI bleed. Comparison: None. Procedure: Axial images are obtained of the abdomen and pelvis, without IV or oral contrast. CT Abdomen without Contrast: Findings: Evaluation of solid organs is limited without contrast. Evaluation of stomach and bowel is limited without oral contrast. There is been prior fracture from hardware from prior fusion of L2-L4. Liver: Normal. Spleen: Normal. Pancreas: Normal. Adrenal Glands: Normal. Kidneys: Normal. There is no free air or free fluid. There is no lymphadenopathy. Impression: Please see CT Pelvis without Contrast. End Impression. CT Pelvis without Contrast: Findings: The urinary bladder appears normal. There is no free fluid. There is no lymphadenopathy. There is no pericolonic inflammation identified. Impression: No acute findings. End impression PQRS Compliance Statement: One or more of the following individualized dose reduction techniques were utilized for this examination: 1. Automated exposure control 2. Adjustment of the mA and/or kV according to patient size 3. Use of iterative reconstruction technique Electronically signed by: Fred Ramachandran III, MD (12/14/2018 9:27 PM) [id number]
[2018-12-15] VITALS (8 sets, daily range): BP systolic 138–170; BP diastolic 72–89
[2018-12-15] MEDS: ALBUTEROL SULFATE 2.5 MG/3 ML NEBU. NEB SCH ×5 (04:31→20:08)
[2018-12-15] MEDS: ACETAMINOPHEN 325 MG TABLET. PO PRN ×2 (05:02→19:43)
[2018-12-15 05:38] LABS: BASO # 0.1 x10^3/uL (0.0-0.2); BASO % 1 % (0-3); EOS # 0.1 x10^3/uL (0.0-0.7); EOS % 1 % (0-3); HEMATOCRIT 26.5 % (36.0-47.0); HEMOGLOBIN 8.6 g/dL (12.0-15.5); LYMPH # 1.8 x10^3/uL (1.0-4.8); LYMPH % 21 % (24-48); MEAN CORPUSCULAR HEMOGLOBIN 26 pg (25-35); MEAN CORPUSCULAR HGB CONC 32 g/dL (31-37); MEAN CORPUSCULAR VOLUME 79 fL (79-100); MONO # 0.9 x10^3/uL (0.0-1.1); MONO % 10 % (0-9); NEUT # 5.9 x10^3uL (1.8-7.7); NEUT % 67 % (31-73); PLATELET COUNT 305 x10^3/uL (140-400); RED BLOOD COUNT 3.34 x10^6/uL (3.50-5.40); RED CELL DISTRIBUTION WIDTH 22.1 % (11.5-14.5); WHITE BLOOD COUNT 8.8 x10^3/uL (4.0-11.0)
[2018-12-15 05:57] LABS: CALCIUM 9.5 mg/dL (8.5-10.1); CREATININE 0.9 mg/dL (0.6-1.0); GFR 74.1; POTASSIUM 3.9 mmol/L (3.5-5.1)
--- NOTE | 2018-12-15 08:56 | PDOC ---
SURGICAL PROGRESS NOTE Subjective Patient doing well, no complaints Vital Signs Vital Signs Date Time Temp Pulse Resp B/P (MAP) Pulse Ox O2 Delivery O2 Flow Rate FiO2 12/15/18 08:13 Room Air 12/15/18 03:00 98.5 76 17 148/75 (99) 93 98.5 I&O Intake and Output 12/15/18 07:01 Intake Total 10 ml Balance 10 ml Intake Oral 0 ml Blood Product IV Normal Saline Flush 10 ml # Voids 3 PATIENT HAS A PILLAI: No General: Alert, Oriented X3, Cooperative, No acute distress Lungs: Clear to auscultation Heart: Regular rate, No murmurs Abdomen: Normal bowel sounds, Soft, No tenderness Extremities: No clubbing, No edema Skin: No significant lesion Neuro: Normal speech Labs Laboratory Tests Test 12/14/18 13:44 12/14/18 16:56 12/15/18 04:08 12/15/18 07:16 White Blood Count 8.5 x10^3/uL (4.0-11.0) 8.8 x10^3/uL (4.0-11.0) Red Blood Count 2.58 x10^6/uL (3.50-5.40) 3.34 x10^6/uL (3.50-5.40) Hemoglobin 6.0 g/dL (12.0-15.5) 8.6 g/dL (12.0-15.5) Hematocrit 19.4 % (36.0-47.0) 26.5 % (36.0-47.0) Mean Corpuscular Volume 75 fL (79-100) 79 fL (79-100) Mean Corpuscular Hemoglobin 23 pg (25-35) 26 pg (25-35) Mean Corpuscular Hemoglobin Concent 31 g/dL (31-37) 32 g/dL (31-37) Red Cell Distribution Width 20.5 % (11.5-14.5) 22.1 % (11.5-14.5) Platelet Count 336 x10^3/uL (140-400) 305 x10^3/uL (140-400) Neutrophils (%) (Auto) 73 % (31-73) 67 % (31-73) Lymphocytes (%) (Auto) 17 % (24-48) 21 % (24-48) Monocytes (%) (Auto) 9 % (0-9) 10 % (0-9) Eosinophils (%) (Auto) 0 % (0-3) 1 % (0-3) Basophils (%) (Auto) 1 % (0-3) 1 % (0-3) Neutrophils # (Auto) 6.1 x10^3uL (1.8-7.7) 5.9 x10^3uL (1.8-7.7) Lymphocytes # (Auto) 1.5 x10^3/uL (1.0-4.8) 1.8 x10^3/uL (1.0-4.8) Monocytes # (Auto) 0.8 x10^3/uL (0.0-1.1) 0.9 x10^3/uL (0.0-1.1) Eosinophils # (Auto) 0.0 x10^3/uL (0.0-0.7) 0.1 x10^3/uL (0.0-0.7) Basophils # (Auto) 0.0 x10^3/uL (0.0-0.2) 0.1 x10^3/uL (0.0-0.2) Platelet Estimate Adequate (ADEQUATE) Polychromasia Slight Hypochromasia Slight Poikilocytosis Slight Anisocytosis Mod Microcytosis Slight Spherocytes Occ Target Cells Few Ovalocytes Occ Schistocytes Occ Prothrombin Time 14.3 SEC (11.7-14.0) Prothromb Time International Ratio 1.1 (0.8-1.1) Activated Partial Thromboplast Time 29 SEC (24-38) Sodium Level 140 mmol/L (136-145) 140 mmol/L (136-145) Potassium Level 4.1 mmol/L (3.5-5.1) 3.9 mmol/L (3.5-5.1) Chloride Level 101 mmol/L (98-107) 104 mmol/L (98-107) Carbon Dioxide Level 29 mmol/L (21-32) 27 mmol/L (21-32) Anion Gap 10 (6-14) 9 (6-14) Blood Urea Nitrogen 21 mg/dL (7-20) 13 mg/dL (7-20) Creatinine 1.2 mg/dL (0.6-1.0) 0.9 mg/dL (0.6-1.0) Estimated GFR (Cockcroft-Gault) 53.1 74.1 BUN/Creatinine Ratio 18 (6-20) Glucose Level 141 mg/dL (70-99) 126 mg/dL (70-99) Calcium Level 9.8 mg/dL (8.5-10.1) 9.5 mg/dL (8.5-10.1) Total Bilirubin 0.4 mg/dL (0.2-1.0) Aspartate Amino Transf (AST/SGOT) 14 U/L (15-37) Alanine Aminotransferase (ALT/SGPT) 22 U/L (14-59) Alkaline Phosphatase 63 U/L (46-116) Total Protein 7.4 g/dL (6.4-8.2) Albumin 3.4 g/dL (3.4-5.0) Albumin/Globulin Ratio 0.9 (1.0-1.7) Glucose (Fingerstick) 102 mg/dL (70-99) 135 mg/dL (70-99) Laboratory Tests Test 12/14/18 13:44 12/14/18 16:56 12/15/18 04:08 12/15/18 07:16 White Blood Count 8.5 x10^3/uL (4.0-11.0) 8.8 x10^3/uL (4.0-11.0) Red Blood Count 2.58 x10^6/uL (3.50-5.40) 3.34 x10^6/uL (3.50-5.40) Hemoglobin 6.0 g/dL (12.0-15.5) 8.6 g/dL (12.0-15.5) Hematocrit 19.4 % (36.0-47.0) 26.5 % (36.0-47.0) Mean Corpuscular Volume 75 fL (79-100) 79 fL (79-100) Mean Corpuscular Hemoglobin 23 pg (25-35) 26 pg (25-35) Mean Corpuscular Hemoglobin Concent 31 g/dL (31-37) 32 g/dL (31-37) Red Cell Distribution Width 20.5 % (11.5-14.5) 22.1 % (11.5-14.5) Platelet Count 336 x10^3/uL (140-400) 305 x10^3/uL (140-400) Neutrophils (%) (Auto) 73 % (31-73) 67 % (31-73) Lymphocytes (%) (Auto) 17 % (24-48) 21 % (24-48) Monocytes (%) (Auto) 9 % (0-9) 10 % (0-9) Eosinophils (%) (Auto) 0 % (0-3) 1 % (0-3) Basophils (%) (Auto) 1 % (0-3) 1 % (0-3) Neutrophils # (Auto) 6.1 x10^3uL (1.8-7.7) 5.9 x10^3uL (1.8-7.7) Lymphocytes # (Auto) 1.5 x10^3/uL (1.0-4.8) 1.8 x10^3/uL (1.0-4.8) Monocytes # (Auto) 0.8 x10^3/uL (0.0-1.1) 0.9 x10^3/uL (0.0-1.1) Eosinophils # (Auto) 0.0 x10^3/uL (0.0-0.7) 0.1 x10^3/uL (0.0-0.7) Basophils # (Auto) 0.0 x10^3/uL (0.0-0.2) 0.1 x10^3/uL (0.0-0.2) Platelet Estimate Adequate (ADEQUATE) Polychromasia Slight Hypochromasia Slight Poikilocytosis Slight Anisocytosis Mod Microcytosis Slight Spherocytes Occ Target Cells Few Ovalocytes Occ Schistocytes Occ Prothrombin Time 14.3 SEC (11.7-14.0) Prothromb Time International Ratio 1.1 (0.8-1.1) Activated Partial Thromboplast Time 29 SEC (24-38) Sodium Level 140 mmol/L (136-145) 140 mmol/L (136-145) Potassium Level 4.1 mmol/L (3.5-5.1) 3.9 mmol/L (3.5-5.1) Chloride Level 101 mmol/L (98-107) 104 mmol/L (98-107) Carbon Dioxide Level 29 mmol/L (21-32) 27 mmol/L (21-32) Anion Gap 10 (6-14) 9 (6-14) Blood Urea Nitrogen 21 mg/dL (7-20) 13 mg/dL (7-20) Creatinine 1.2 mg/dL (0.6-1.0) 0.9 mg/dL (0.6-1.0) Estimated GFR (Cockcroft-Gault) 53.1 74.1 BUN/Creatinine Ratio 18 (6-20) Glucose Level 141 mg/dL (70-99) 126 mg/dL (70-99) Calcium Level 9.8 mg/dL (8.5-10.1) 9.5 mg/dL (8.5-10.1) Total Bilirubin 0.4 mg/dL (0.2-1.0) Aspartate Amino Transf (AST/SGOT) 14 U/L (15-37) Alanine Aminotransferase (ALT/SGPT) 22 U/L (14-59) Alkaline Phosphatase 63 U/L (46-116) Total Protein 7.4 g/dL (6.4-8.2) Albumin 3.4 g/dL (3.4-5.0) Albumin/Globulin Ratio 0.9 (1.0-1.7) Glucose (Fingerstick) 102 mg/dL (70-99) 135 mg/dL (70-99) Assessment/Plan Questionable GI bleed with anemia Nuc med bleeding scan negative Unsure of source. Awaiting recommendations from DAYLIN OTERO MD Dec 15, 2018 08:56
--- NOTE | 2018-12-15 09:08 | PDOC ---
Subjective: Subjective: 72 y/o female know to GI who has been followed by Dr. Austin for recurrent GI bleeding. 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 Hgb yesterday was 6, now 8.6 s/p transfusion 2 units. Per RN, no bleeding. Pt reports a black stool on 12/10 or 12/11 - none since. Objective: Vital Signs: Vital Signs Date Time Temp Pulse Resp B/P (MAP) Pulse Ox O2 Delivery O2 Flow Rate FiO2 12/15/18 08:48 94 Room Air 12/15/18 03:00 98.5 76 17 148/75 (99) 98.5 Labs: Laboratory Tests Test 12/14/18 13:44 12/14/18 16:56 12/15/18 04:08 12/15/18 07:16 White Blood Count 8.5 x10^3/uL 8.8 x10^3/uL Red Blood Count 2.58 x10^6/uL 3.34 x10^6/uL Hemoglobin 6.0 g/dL 8.6 g/dL Hematocrit 19.4 % 26.5 % Mean Corpuscular Volume 75 fL 79 fL Mean Corpuscular Hemoglobin 23 pg 26 pg Mean Corpuscular Hemoglobin Concent 31 g/dL 32 g/dL Red Cell Distribution Width 20.5 % 22.1 % Platelet Count 336 x10^3/uL 305 x10^3/uL Neutrophils (%) (Auto) 73 % 67 % Lymphocytes (%) (Auto) 17 % 21 % Monocytes (%) (Auto) 9 % 10 % Eosinophils (%) (Auto) 0 % 1 % Basophils (%) (Auto) 1 % 1 % Neutrophils # (Auto) 6.1 x10^3uL 5.9 x10^3uL Lymphocytes # (Auto) 1.5 x10^3/uL 1.8 x10^3/uL Monocytes # (Auto) 0.8 x10^3/uL 0.9 x10^3/uL Eosinophils # (Auto) 0.0 x10^3/uL 0.1 x10^3/uL Basophils # (Auto) 0.0 x10^3/uL 0.1 x10^3/uL Platelet Estimate Adequate Polychromasia Slight Hypochromasia Slight Poikilocytosis Slight Anisocytosis Mod Microcytosis Slight Spherocytes Occ Target Cells Few Ovalocytes Occ Schistocytes Occ Prothrombin Time 14.3 SEC Prothromb Time International Ratio 1.1 Activated Partial Thromboplast Time 29 SEC Sodium Level 140 mmol/L 140 mmol/L Potassium Level 4.1 mmol/L 3.9 mmol/L Chloride Level 101 mmol/L 104 mmol/L Carbon Dioxide Level 29 mmol/L 27 mmol/L Anion Gap 10 9 Blood Urea Nitrogen 21 mg/dL 13 mg/dL Creatinine 1.2 mg/dL 0.9 mg/dL Estimated GFR (Cockcroft-Gault) 53.1 74.1 BUN/Creatinine Ratio 18 Glucose Level 141 mg/dL 126 mg/dL Calcium Level 9.8 mg/dL 9.5 mg/dL Total Bilirubin 0.4 mg/dL Aspartate Amino Transf (AST/SGOT) 14 U/L Alanine Aminotransferase (ALT/SGPT) 22 U/L Alkaline Phosphatase 63 U/L Total Protein 7.4 g/dL Albumin 3.4 g/dL Albumin/Globulin Ratio 0.9 Glucose (Fingerstick) 102 mg/dL 135 mg/dL Imaging: CT A/P Impression: No acute findings. GI Bleed IMPRESSION: Study is negative for acute GI bleed. PE: GEN: NAD LUNGS: CTAB HEART: RRR ABD: NABS, S/ND/NT NEURO/PSYCH: A & O 3 A/P: Recurrent GI bleeding -- Will plan for colonoscopy tomorrow after prep. RADHA JUSTICE Dec 15, 2018 09:08
[2018-12-15] MEDS: PANTOPRAZOLE 40 MG TABLET.DR. PO SCH (10:53)
[2018-12-15] MEDS: DULoxetine HCL 30 MG CAPSULE.DR PO SCH (10:53)
[2018-12-15] MEDS: ASCORBIC ACID 500 MG TABLET PO SCH (10:54)
[2018-12-15] MEDS: MEMANTINE 10 MG TABLET. PO SCH ×2 (10:54→21:27)
[2018-12-15] MEDS: amLODIPine BESYLATE 10 MG TABLET PO SCH (10:54)
[2018-12-15] MEDS: LOSARTAN POTASSIUM 50 MG TABLET. PO SCH (10:54)
[2018-12-15] MEDS: SPIRONOLACTONE 25 MG TABLET PO SCH (10:55)
[2018-12-15] MEDS: FERROUS SULFATE 325 MG TABLET. PO SCH (10:55)
[2018-12-15] MEDS: CHLORHEXIDINE 0.12% 15 ML MOUTHWASH. MM SCH ×2 (10:55→21:26)
--- NOTE | 2018-12-15 11:43 | PDOC ---
PROGRESS NOTES History of Present Illness History of Present Illness VTE Prophylaxis Ordered VTE Prophylaxis Devices: Yes VTE Pharmacological Prophylaxi: Contraindicated Assessment/Plan Assessment/Plan Assessment/Plan Assessment/Plan Gi bleed acute ,Questionable GI bleed with anemia marked anemia POA Colonoscopy in 11/2017 showed diverticulosis, EGD 11/2018 showed non-erosive gastritis testing with capsule showed retained blood in right colon bleeding scan 12/14, gen surg FOLLOWING Vitals Vitals Vital Signs Date Time Temp Pulse Resp B/P (MAP) Pulse Ox O2 Delivery O2 Flow Rate FiO2 12/15/18 11:00 98.0 73 17 143/80 (101) 95 Room Air 98.0 Physical Exam General: Alert, Oriented X3, Cooperative, No acute distress Heart: Regular rate, No murmurs Lungs: Clear Abdomen: Normal bowel sounds, Soft, No tenderness Extremities: No clubbing, No edema Skin: No significant lesion Labs LABS NUCLEAR MEDICINE TAGGED RBC SCAN Clinical Indication: Dark tarry stool for several months, admitted today for anemia. COMPARISON: Tagged red blood cell scan October 26, 2018. Technique: Patient was injected with 31 mCi of technetium 99m labeled red blood cells using Ultratag technique. Then anterior dynamic images of the abdomen were obtained for 60 minutes. Findings: Lower chest is included in the [id number], similar to prior study. On the first image there is faint diffuse tracer uptake in the stomach that gradually increases throughout the study and the distribution is homogeneous throughout the stomach. Finding likely due to free pertechnetate. The pattern of uptake is not suggestive of GI bleed. There is gradual tracer accumulation in the urinary bladder, a normal finding. Urinary contamination is noted inferiorly near the end of the study. There is no gradual accumulation and propagation of tracer to indicate an active GI bleed. IMPRESSION: Study is negative for acute GI bleed. Electronically signed by: Bruno Kinney MD (12/14/2018 4:14 PM) [id number] Abdominal and Pelvis CT, Without Contrast: History: GI bleed. Comparison: None. Procedure: Axial images are obtained of the abdomen and pelvis, without IV or oral contrast. CT Abdomen without Contrast: Findings: Evaluation of solid organs is limited without contrast. Evaluation of stomach and bowel is limited without oral contrast. There is been prior fracture from hardware from prior fusion of L2-L4. Liver: Normal. Spleen: Normal. Pancreas: Normal. Adrenal Glands: Normal. Kidneys: Normal. There is no free air or free fluid. There is no lymphadenopathy. Impression: Please see CT Pelvis without Contrast. End Impression. CT Pelvis without Contrast: Findings: The urinary bladder appears normal. There is no free fluid. There is no lymphadenopathy. There is no pericolonic inflammation identified. Impression: No acute findings. End impression Laboratory Tests Test 12/14/18 13:44 12/14/18 16:56 12/15/18 04:08 12/15/18 07:16 White Blood Count 8.5 x10^3/uL (4.0-11.0) 8.8 x10^3/uL (4.0-11.0) Red Blood Count 2.58 x10^6/uL (3.50-5.40) 3.34 x10^6/uL (3.50-5.40) Hemoglobin 6.0 g/dL (12.0-15.5) 8.6 g/dL (12.0-15.5) Hematocrit 19.4 % (36.0-47.0) 26.5 % (36.0-47.0) Mean Corpuscular Volume 75 fL (79-100) 79 fL (79-100) Mean Corpuscular Hemoglobin 23 pg (25-35) 26 pg (25-35) Mean Corpuscular Hemoglobin Concent 31 g/dL (31-37) 32 g/dL (31-37) Red Cell Distribution Width 20.5 % (11.5-14.5) 22.1 % (11.5-14.5) Platelet Count 336 x10^3/uL (140-400) 305 x10^3/uL (140-400) Neutrophils (%) (Auto) 73 % (31-73) 67 % (31-73) Lymphocytes (%) (Auto) 17 % (24-48) 21 % (24-48) Monocytes (%) (Auto) 9 % (0-9) 10 % (0-9) Eosinophils (%) (Auto) 0 % (0-3) 1 % (0-3) Basophils (%) (Auto) 1 % (0-3) 1 % (0-3) Neutrophils # (Auto) 6.1 x10^3uL (1.8-7.7) 5.9 x10^3uL (1.8-7.7) Lymphocytes # (Auto) 1.5 x10^3/uL (1.0-4.8) 1.8 x10^3/uL (1.0-4.8) Monocytes # (Auto) 0.8 x10^3/uL (0.0-1.1) 0.9 x10^3/uL (0.0-1.1) Eosinophils # (Auto) 0.0 x10^3/uL (0.0-0.7) 0.1 x10^3/uL (0.0-0.7) Basophils # (Auto) 0.0 x10^3/uL (0.0-0.2) 0.1 x10^3/uL (0.0-0.2) Platelet Estimate Adequate (ADEQUATE) Polychromasia Slight Hypochromasia Slight Poikilocytosis Slight Anisocytosis Mod Microcytosis Slight Spherocytes Occ Target Cells Few Ovalocytes Occ Schistocytes Occ Prothrombin Time 14.3 SEC (11.7-14.0) Prothromb Time International Ratio 1.1 (0.8-1.1) Activated Partial Thromboplast Time 29 SEC (24-38) Sodium Level 140 mmol/L (136-145) 140 mmol/L (136-145) Potassium Level 4.1 mmol/L (3.5-5.1) 3.9 mmol/L (3.5-5.1) Chloride Level 101 mmol/L (98-107) 104 mmol/L (98-107) Carbon Dioxide Level 29 mmol/L (21-32) 27 mmol/L (21-32) Anion Gap 10 (6-14) 9 (6-14) Blood Urea Nitrogen 21 mg/dL (7-20) 13 mg/dL (7-20) Creatinine 1.2 mg/dL (0.6-1.0) 0.9 mg/dL (0.6-1.0) Estimated GFR (Cockcroft-Gault) 53.1 74.1 BUN/Creatinine Ratio 18 (6-20) Glucose Level 141 mg/dL (70-99) 126 mg/dL (70-99) Calcium Level 9.8 mg/dL (8.5-10.1) 9.5 mg/dL (8.5-10.1) Total Bilirubin 0.4 mg/dL (0.2-1.0) Aspartate Amino Transf (AST/SGOT) 14 U/L (15-37) Alanine Aminotransferase (ALT/SGPT) 22 U/L (14-59) Alkaline Phosphatase 63 U/L (46-116) Total Protein 7.4 g/dL (6.4-8.2) Albumin 3.4 g/dL (3.4-5.0) Albumin/Globulin Ratio 0.9 (1.0-1.7) Glucose (Fingerstick) 102 mg/dL (70-99) 135 mg/dL (70-99) Test 12/15/18 11:27 Glucose (Fingerstick) 166 mg/dL (70-99) Comment Review of Relevant I have reviewed the following items abdifatah (where applicable) has been applied. Labs Laboratory Tests Test 12/14/18 13:44 12/14/18 16:56 12/15/18 04:08 12/15/18 07:16 White Blood Count 8.5 x10^3/uL (4.0-11.0) 8.8 x10^3/uL (4.0-11.0) Red Blood Count 2.58 x10^6/uL (3.50-5.40) 3.34 x10^6/uL (3.50-5.40) Hemoglobin 6.0 g/dL (12.0-15.5) 8.6 g/dL (12.0-15.5) Hematocrit 19.4 % (36.0-47.0) 26.5 % (36.0-47.0) Mean Corpuscular Volume 75 fL (79-100) 79 fL (79-100) Mean Corpuscular Hemoglobin 23 pg (25-35) 26 pg (25-35) Mean Corpuscular Hemoglobin Concent 31 g/dL (31-37) 32 g/dL (31-37) Red Cell Distribution Width 20.5 % (11.5-14.5) 22.1 % (11.5-14.5) Platelet Count 336 x10^3/uL (140-400) 305 x10^3/uL (140-400) Neutrophils (%) (Auto) 73 % (31-73) 67 % (31-73) Lymphocytes (%) (Auto) 17 % (24-48) 21 % (24-48) Monocytes (%) (Auto) 9 % (0-9) 10 % (0-9) Eosinophils (%) (Auto) 0 % (0-3) 1 % (0-3) Basophils (%) (Auto) 1 % (0-3) 1 % (0-3) Neutrophils # (Auto) 6.1 x10^3uL (1.8-7.7) 5.9 x10^3uL (1.8-7.7) Lymphocytes # (Auto) 1.5 x10^3/uL (1.0-4.8) 1.8 x10^3/uL (1.0-4.8) Monocytes # (Auto) 0.8 x10^3/uL (0.0-1.1) 0.9 x10^3/uL (0.0-1.1) Eosinophils # (Auto) 0.0 x10^3/uL (0.0-0.7) 0.1 x10^3/uL (0.0-0.7) Basophils # (Auto) 0.0 x10^3/uL (0.0-0.2) 0.1 x10^3/uL (0.0-0.2) Platelet Estimate Adequate (ADEQUATE) Polychromasia Slight Hypochromasia Slight Poikilocytosis Slight Anisocytosis Mod Microcytosis Slight Spherocytes Occ Target Cells Few Ovalocytes Occ Schistocytes Occ Prothrombin Time 14.3 SEC (11.7-14.0) Prothromb Time International Ratio 1.1 (0.8-1.1) Activated Partial Thromboplast Time 29 SEC (24-38) Sodium Level 140 mmol/L (136-145) 140 mmol/L (136-145) Potassium Level 4.1 mmol/L (3.5-5.1) 3.9 mmol/L (3.5-5.1) Chloride Level 101 mmol/L (98-107) 104 mmol/L (98-107) Carbon Dioxide Level 29 mmol/L (21-32) 27 mmol/L (21-32) Anion Gap 10 (6-14) 9 (6-14) Blood Urea Nitrogen 21 mg/dL (7-20) 13 mg/dL (7-20) Creatinine 1.2 mg/dL (0.6-1.0) 0.9 mg/dL (0.6-1.0) Estimated GFR (Cockcroft-Gault) 53.1 74.1 BUN/Creatinine Ratio 18 (6-20) Glucose Level 141 mg/dL (70-99) 126 mg/dL (70-99) Calcium Level 9.8 mg/dL (8.5-10.1) 9.5 mg/dL (8.5-10.1) Total Bilirubin 0.4 mg/dL (0.2-1.0) Aspartate Amino Transf (AST/SGOT) 14 U/L (15-37) Alanine Aminotransferase (ALT/SGPT) 22 U/L (14-59) Alkaline Phosphatase 63 U/L (46-116) Total Protein 7.4 g/dL (6.4-8.2) Albumin 3.4 g/dL (3.4-5.0) Albumin/Globulin Ratio 0.9 (1.0-1.7) Glucose (Fingerstick) 102 mg/dL (70-99) 135 mg/dL (70-99) Test 12/15/18 11:27 Glucose (Fingerstick) 166 mg/dL (70-99) Laboratory Tests Test 12/14/18 13:44 12/14/18 16:56 12/15/18 04:08 12/15/18 07:16 White Blood Count 8.5 x10^3/uL (4.0-11.0) 8.8 x10^3/uL (4.0-11.0) Red Blood Count 2.58 x10^6/uL (3.50-5.40) 3.34 x10^6/uL (3.50-5.40) Hemoglobin 6.0 g/dL (12.0-15.5) 8.6 g/dL (12.0-15.5) Hematocrit 19.4 % (36.0-47.0) 26.5 % (36.0-47.0) Mean Corpuscular Volume 75 fL (79-100) 79 fL (79-100) Mean Corpuscular Hemoglobin 23 pg (25-35) 26 pg (25-35) Mean Corpuscular Hemoglobin Concent 31 g/dL (31-37) 32 g/dL (31-37) Red Cell Distribution Width 20.5 % (11.5-14.5) 22.1 % (11.5-14.5) Platelet Count 336 x10^3/uL (140-400) 305 x10^3/uL (140-400) Neutrophils (%) (Auto) 73 % (31-73) 67 % (31-73) Lymphocytes (%) (Auto) 17 % (24-48) 21 % (24-48) Monocytes (%) (Auto) 9 % (0-9) 10 % (0-9) Eosinophils (%) (Auto) 0 % (0-3) 1 % (0-3) Basophils (%) (Auto) 1 % (0-3) 1 % (0-3) Neutrophils # (Auto) 6.1 x10^3uL (1.8-7.7) 5.9 x10^3uL (1.8-7.7) Lymphocytes # (Auto) 1.5 x10^3/uL (1.0-4.8) 1.8 x10^3/uL (1.0-4.8) Monocytes # (Auto) 0.8 x10^3/uL (0.0-1.1) 0.9 x10^3/uL (0.0-1.1) Eosinophils # (Auto) 0.0 x10^3/uL (0.0-0.7) 0.1 x10^3/uL (0.0-0.7) Basophils # (Auto) 0.0 x10^3/uL (0.0-0.2) 0.1 x10^3/uL (0.0-0.2) Platelet Estimate Adequate (ADEQUATE) Polychromasia Slight Hypochromasia Slight Poikilocytosis Slight Anisocytosis Mod Microcytosis Slight Spherocytes Occ Target Cells Few Ovalocytes Occ Schistocytes Occ Prothrombin Time 14.3 SEC (11.7-14.0) Prothromb Time International Ratio 1.1 (0.8-1.1) Activated Partial Thromboplast Time 29 SEC (24-38) Sodium Level 140 mmol/L (136-145) 140 mmol/L (136-145) Potassium Level 4.1 mmol/L (3.5-5.1) 3.9 mmol/L (3.5-5.1) Chloride Level 101 mmol/L (98-107) 104 mmol/L (98-107) Carbon Dioxide Level 29 mmol/L (21-32) 27 mmol/L (21-32) Anion Gap 10 (6-14) 9 (6-14) Blood Urea Nitrogen 21 mg/dL (7-20) 13 mg/dL (7-20) Creatinine 1.2 mg/dL (0.6-1.0) 0.9 mg/dL (0.6-1.0) Estimated GFR (Cockcroft-Gault) 53.1 74.1 BUN/Creatinine Ratio 18 (6-20) Glucose Level 141 mg/dL (70-99) 126 mg/dL (70-99) Calcium Level 9.8 mg/dL (8.5-10.1) 9.5 mg/dL (8.5-10.1) Total Bilirubin 0.4 mg/dL (0.2-1.0) Aspartate Amino Transf (AST/SGOT) 14 U/L (15-37) Alanine Aminotransferase (ALT/SGPT) 22 U/L (14-59) Alkaline Phosphatase 63 U/L (46-116) Total Protein 7.4 g/dL (6.4-8.2) Albumin 3.4 g/dL (3.4-5.0) Albumin/Globulin Ratio 0.9 (1.0-1.7) Glucose (Fingerstick) 102 mg/dL (70-99) 135 mg/dL (70-99) Test 12/15/18 11:27 Glucose (Fingerstick) 166 mg/dL (70-99) Medications Current Medications Sodium Chloride 1,000 ml @ 1,000 mls/hr 1X ONCE IV Last administered on at 13:52; Start 12/14/18 at 13:30; Stop 12/14/18 at 14:29; Status DC Amlodipine Besylate (Norvasc) 10 mg DAILY PO Last administered on 12/15/18at 10: 54; Start 12/14/18 at 17:00 Chlorhexidine Gluconate (Peridex) 15 ml BID MM Last administered on 12/15/18at 10:55; Start 12/14/18 at 21:00 Non-Formulary Medication (Albuterol Sulfate (Ventolin Hfa Inhaler)) 2 puff Q4HRS INH ; Start 12/14/18 at 20:00; Status UNV Ascorbic Acid (Vitamin C) 500 mg DAILY PO Last administered on 12/15/18 10:54 ; Start 12/14/18 at 17:00 Duloxetine HCl (Cymbalta) 90 mg DAILY PO Last administered on 12/15/18 10:53; Start 12/14/18 at 17:00 Ferrous Sulfate (Feosol) 325 mg [id number] PO Last administered on 12/15/18 10 :55; Start 12/14/18 at 17:00 Losartan Potassium (Cozaar) 100 mg DAILY PO Last administered on 12/15/18 10: 54; Start 12/14/18 at 17:00 Memantine (Namenda) 10 mg BID PO Last administered on 12/15/18 10:54; Start at 21:00 Pantoprazole Sodium (Protonix) 40 mg DAILYAC PO Last administered on 12/15/18 10:53; Start 12/14/18 at 17:00 Ropinirole HCl (Requip) 3 mg QHS PO Last administered on 12/14/18at 21:24; Start 12/14/18 at 21:00 Spironolactone (Aldactone) 25 mg DAILY PO Last administered on 12/15/18 10:55 ; Start 12/14/18 at 17:00 Albuterol Sulfate (Ventolin Neb Soln) 2.5 mg Q4HRS NEB Last administered on at 08:48; Start 12/14/18 at 20:00 Sodium Chloride 1,000 ml @ 80 mls/hr [id number] IV Last administered on at 17:37; Start 12/14/18 at 17:15 Acetaminophen (Tylenol) 650 mg PRN Q6HRS PRN PO Pain Last administered on at 05:02; Start 12/15/18 at 04:45 Polyethylene Glycol (miraLAX Powder BULK BOTTLE) 238 gm 1X ONCE PO ; Start at 12:00; Stop 12/15/18 at 12:01 Active Scripts Active Chlorhexidine Gluconate 473 Ml Mouthwash 473 Ml MM BID 7 Days Vitamin C (Ascorbate Calcium) 500 Mg Tablet 500 Mg PO DAILY 30 Days Slow Release Iron (Ferrous Sulfate) 250 Mg Tablet.er 250 Mg PO DAILY 30 Days Protonix (Pantoprazole Sodium) 40 Mg Saludkt. 40 Mg PO DAILY 30 Days Reported Metformin Hcl Er (Metformin Hcl) 500 Mg Tab.er.24h 1 Tab PO DAILY Namenda (Memantine Hcl) 10 Mg Tablet 1 Tab PO BID Losartan Potassium 100 Mg Tablet 100 Mg PO DAILY Spironolactone 25 Mg Tablet 1 Tab PO DAILY Ventolin Hfa Inhaler (Albuterol Sulfate) 18 Gm Hfa.aer.ad 2 Puff INH Q4HRS Cymbalta (Duloxetine Hcl) 20 Mg Capsule.dr 90 Mg PO DAILY Requip (Ropinirole Hcl) 1 Mg Tablet 3 Mg PO DAILY Amlodipine Besylate 10 Mg Tablet 10 Mg PO DAILY Vitals/I & O Vital Sign - Last 24 Hours 12/14/18 12/14/18 12/14/18 12/14/18 13:05 13:55 14:25 14:39 Temp 98.5 98.5 Pulse 97 66 62 62 Resp 24 28 13 18 B/P (MAP) 125/78 (94) 118/55 (76) 123/72 (89) 114/61 (78) Pulse Ox 98 99 95 93 O2 Delivery Room Air Room Air Room Air Room Air 12/14/18 12/14/18 12/14/18 12/14/18 17:11 18:45 19:00 20:02 Temp 98.7 98.7 97.7 97.2 98.7 98.7 97.7 97.2 Pulse 62 62 72 63 Resp 16 16 16 B/P (MAP) 132/67 (88) 132/67 98/73 115/61 O2 Delivery Room Air 12/14/18 12/14/18 12/14/18 12/14/18 20:03 20:06 21:07 23:14 Temp 98.4 98.6 98.4 98.6 Pulse 71 75 Resp 16 16 B/P (MAP) 128/63 142/70 Pulse Ox 95 O2 Delivery Room Air Room Air 12/14/18 12/14/18 12/14/18 12/15/18 23:23 23:29 23:56 00:17 Temp 98.3 98.3 98.6 98.3 98.3 98.6 Pulse 84 84 84 Resp 16 16 16 B/P (MAP) 146/69 (94) 146/69 138/76 O2 Delivery Room Air Room Air 12/15/18 12/15/18 12/15/18 12/15/18 01:18 03:00 04:33 07:00 Temp 98.6 98.5 98.7 98.6 98.5 98.7 Pulse 91 76 83 Resp 16 17 17 B/P (MAP) 145/82 148/75 (99) 170/88 (115) Pulse Ox 93 96 O2 Delivery Room Air Room Air Room Air 12/15/18 12/15/18 12/15/18 12/15/18 08:13 08:48 10:54 10:54 Pulse 73 73 B/P (MAP) 143/80 143/80 Pulse Ox 94 O2 Delivery Room Air Room Air 12/15/18 11:00 Temp 98.0 98.0 Pulse 73 Resp 17 B/P (MAP) 143/80 (101) Pulse Ox 95 O2 Delivery Room Air Intake and Output 12/14/18 12/14/18 12/15/18 15:01 23:01 07:01 Intake Total 10 ml 0 ml Balance 10 ml 0 ml DAYLIN MILLER MD Dec 15, 2018 11:43
[2018-12-15] MEDS ORDERED: POLYETHYLENE GLYCOL 3350 BTL 238 GM POWDER PO ONE (12:00)
[2018-12-15] MEDS: IV NORMAL SALINE 1000ML BAG 1,000 ML IV SCH ×2 (12:49→18:15)
--- NOTE | 2018-12-15 14:41 | NUR ---
SW following pt for anticipated dc needs. Chart reviewed. Pt lives home alone and is on Room Air. No PT/OT evaluation at this time. SW will continue to evaluate dc needs.
[2018-12-15] MEDS: rOPINIRole 1 MG TABLET. PO SCH (21:27)
[2018-12-16] VITALS (8 sets, daily range): BP systolic 117–155; BP diastolic 64–90
[2018-12-16] MEDS: IV NORMAL SALINE 1000ML BAG 1,000 ML IV SCH ×2 (00:51→17:00)
[2018-12-16 05:01] LABS: BASO % 1 % (0-3); EOS # 0.1 x10^3/uL (0.0-0.7); EOS % 1 % (0-3); HEMATOCRIT 26.7 % (36.0-47.0); HEMOGLOBIN 8.5 g/dL (12.0-15.5); LYMPH # 1.6 x10^3/uL (1.0-4.8); LYMPH % 22 % (24-48); MEAN CORPUSCULAR HEMOGLOBIN 25 pg (25-35); MEAN CORPUSCULAR HGB CONC 32 g/dL (31-37); MEAN CORPUSCULAR VOLUME 79 fL (79-100); MONO # 0.7 x10^3/uL (0.0-1.1); MONO % 9 % (0-9); NEUT # 5.1 x10^3uL (1.8-7.7); NEUT % 67 % (31-73); PLATELET COUNT 289 x10^3/uL (140-400); RED BLOOD COUNT 3.39 x10^6/uL (3.50-5.40); RED CELL DISTRIBUTION WIDTH 22.2 % (11.5-14.5); WHITE BLOOD COUNT 7.6 x10^3/uL (4.0-11.0)
[2018-12-16 05:28] LABS: CALCIUM 9.2 mg/dL (8.5-10.1); CREATININE 0.8 mg/dL (0.6-1.0); GFR 84.8; POTASSIUM 3.4 mmol/L (3.5-5.1)
[2018-12-16] MEDS: PANTOPRAZOLE 40 MG TABLET.DR. PO SCH (05:43)
[2018-12-16] MEDS: ALBUTEROL SULFATE 2.5 MG/3 ML NEBU. NEB SCH ×5 (06:56→19:22)
[2018-12-16] MEDS ORDERED: HYDROmorphone 2 MG/ML VIAL IV PRN (07:00)
[2018-12-16] MEDS ORDERED: fentaNYL PF VIAL 100 MCG/2 ML VIAL IV PRN ×4 (07:00→07:15)
[2018-12-16] MEDS ORDERED: LIDOCAINE 1% PF 2 ML VIAL. ID PRN ×2 (07:00→07:15)
[2018-12-16] MEDS ORDERED: PROCHLORPERAZINE 10 MG/2 ML VIAL. IV PRN (07:00)
[2018-12-16] MEDS ORDERED: MORPHINE SULFATE 4 MG/ML VIAL. IV PRN (07:00)
[2018-12-16] MEDS ORDERED: ONDANSETRON PF 4 MG/2 ML VIAL. IV PRN (07:00)
[2018-12-16] MEDS ORDERED: IV RINGERS,LACTATED 1000ML 1,000 ML IV SCH (07:00)
[2018-12-16] MEDS: IV RINGERS,LACTATED 1000ML 1,000 ML IV SCH ×2 (07:13→15:13)
[2018-12-16] MEDS ORDERED: MIDAZOLAM HCL/PF 2 MG/2 ML VIAL. IV PRN (07:15)
[2018-12-16] MEDS: ACETAMINOPHEN 325 MG TABLET. PO PRN ×2 (08:11→17:11)
[2018-12-16] MEDS: MEMANTINE 10 MG TABLET. PO SCH ×2 (09:00→21:31)
[2018-12-16] MEDS: CHLORHEXIDINE 0.12% 15 ML MOUTHWASH. MM SCH ×2 (09:00→21:30)
--- NOTE | 2018-12-16 09:02 | PDOC ---
SURGICAL PROGRESS NOTE Subjective Patient without complaints. Had prep for colonoscopy Vital Signs Vital Signs Date Time Temp Pulse Resp B/P (MAP) Pulse Ox O2 Delivery O2 Flow Rate FiO2 12/16/18 07:00 98.8 82 17 117/78 (91) 92 Room Air 98.8 I&O Intake and Output 12/16/18 07:01 Intake Total 600 ml Output Total 0 ml Balance 600 ml Intake Oral 600 ml Output Urine Total 0 ml # Voids 3 PATIENT HAS A PILLAI: No General: Alert, Oriented X3, Cooperative, No acute distress Abdomen: Normal bowel sounds, Soft, No tenderness Labs Laboratory Tests Test 12/14/18 13:44 12/14/18 16:56 12/15/18 04:08 12/15/18 07:16 White Blood Count 8.5 x10^3/uL (4.0-11.0) 8.8 x10^3/uL (4.0-11.0) Red Blood Count 2.58 x10^6/uL (3.50-5.40) 3.34 x10^6/uL (3.50-5.40) Hemoglobin 6.0 g/dL (12.0-15.5) 8.6 g/dL (12.0-15.5) Hematocrit 19.4 % (36.0-47.0) 26.5 % (36.0-47.0) Mean Corpuscular Volume 75 fL (79-100) 79 fL (79-100) Mean Corpuscular Hemoglobin 23 pg (25-35) 26 pg (25-35) Mean Corpuscular Hemoglobin Concent 31 g/dL (31-37) 32 g/dL (31-37) Red Cell Distribution Width 20.5 % (11.5-14.5) 22.1 % (11.5-14.5) Platelet Count 336 x10^3/uL (140-400) 305 x10^3/uL (140-400) Neutrophils (%) (Auto) 73 % (31-73) 67 % (31-73) Lymphocytes (%) (Auto) 17 % (24-48) 21 % (24-48) Monocytes (%) (Auto) 9 % (0-9) 10 % (0-9) Eosinophils (%) (Auto) 0 % (0-3) 1 % (0-3) Basophils (%) (Auto) 1 % (0-3) 1 % (0-3) Neutrophils # (Auto) 6.1 x10^3uL (1.8-7.7) 5.9 x10^3uL (1.8-7.7) Lymphocytes # (Auto) 1.5 x10^3/uL (1.0-4.8) 1.8 x10^3/uL (1.0-4.8) Monocytes # (Auto) 0.8 x10^3/uL (0.0-1.1) 0.9 x10^3/uL (0.0-1.1) Eosinophils # (Auto) 0.0 x10^3/uL (0.0-0.7) 0.1 x10^3/uL (0.0-0.7) Basophils # (Auto) 0.0 x10^3/uL (0.0-0.2) 0.1 x10^3/uL (0.0-0.2) Platelet Estimate Adequate (ADEQUATE) Polychromasia Slight Hypochromasia Slight Poikilocytosis Slight Anisocytosis Mod Microcytosis Slight Spherocytes Occ Target Cells Few Ovalocytes Occ Schistocytes Occ Prothrombin Time 14.3 SEC (11.7-14.0) Prothromb Time International Ratio 1.1 (0.8-1.1) Activated Partial Thromboplast Time 29 SEC (24-38) Sodium Level 140 mmol/L (136-145) 140 mmol/L (136-145) Potassium Level 4.1 mmol/L (3.5-5.1) 3.9 mmol/L (3.5-5.1) Chloride Level 101 mmol/L (98-107) 104 mmol/L (98-107) Carbon Dioxide Level 29 mmol/L (21-32) 27 mmol/L (21-32) Anion Gap 10 (6-14) 9 (6-14) Blood Urea Nitrogen 21 mg/dL (7-20) 13 mg/dL (7-20) Creatinine 1.2 mg/dL (0.6-1.0) 0.9 mg/dL (0.6-1.0) Estimated GFR (Cockcroft-Gault) 53.1 74.1 BUN/Creatinine Ratio 18 (6-20) Glucose Level 141 mg/dL (70-99) 126 mg/dL (70-99) Calcium Level 9.8 mg/dL (8.5-10.1) 9.5 mg/dL (8.5-10.1) Total Bilirubin 0.4 mg/dL (0.2-1.0) Aspartate Amino Transf (AST/SGOT) 14 U/L (15-37) Alanine Aminotransferase (ALT/SGPT) 22 U/L (14-59) Alkaline Phosphatase 63 U/L (46-116) Total Protein 7.4 g/dL (6.4-8.2) Albumin 3.4 g/dL (3.4-5.0) Albumin/Globulin Ratio 0.9 (1.0-1.7) Glucose (Fingerstick) 102 mg/dL (70-99) 135 mg/dL (70-99) Test 12/15/18 11:27 12/15/18 16:28 12/15/18 19:27 12/16/18 03:46 Glucose (Fingerstick) 166 mg/dL (70-99) 124 mg/dL (70-99) 145 mg/dL (70-99) 135 mg/dL (70-99) Test 12/16/18 04:08 12/16/18 07:00 White Blood Count 7.6 x10^3/uL (4.0-11.0) Red Blood Count 3.39 x10^6/uL (3.50-5.40) Hemoglobin 8.5 g/dL (12.0-15.5) Hematocrit 26.7 % (36.0-47.0) Mean Corpuscular Volume 79 fL (79-100) Mean Corpuscular Hemoglobin 25 pg (25-35) Mean Corpuscular Hemoglobin Concent 32 g/dL (31-37) Red Cell Distribution Width 22.2 % (11.5-14.5) Platelet Count 289 x10^3/uL (140-400) Neutrophils (%) (Auto) 67 % (31-73) Lymphocytes (%) (Auto) 22 % (24-48) Monocytes (%) (Auto) 9 % (0-9) Eosinophils (%) (Auto) 1 % (0-3) Basophils (%) (Auto) 1 % (0-3) Neutrophils # (Auto) 5.1 x10^3uL (1.8-7.7) Lymphocytes # (Auto) 1.6 x10^3/uL (1.0-4.8) Monocytes # (Auto) 0.7 x10^3/uL (0.0-1.1) Eosinophils # (Auto) 0.1 x10^3/uL (0.0-0.7) Basophils # (Auto) 0.0 x10^3/uL (0.0-0.2) Sodium Level 139 mmol/L (136-145) Potassium Level 3.4 mmol/L (3.5-5.1) Chloride Level 103 mmol/L (98-107) Carbon Dioxide Level 27 mmol/L (21-32) Anion Gap 9 (6-14) Blood Urea Nitrogen 6 mg/dL (7-20) Creatinine 0.8 mg/dL (0.6-1.0) Estimated GFR (Cockcroft-Gault) 84.8 Glucose Level 139 mg/dL (70-99) Calcium Level 9.2 mg/dL (8.5-10.1) Glucose (Fingerstick) 126 mg/dL (70-99) Laboratory Tests Test 12/15/18 11:27 12/15/18 16:28 12/15/18 19:27 12/16/18 03:46 Glucose (Fingerstick) 166 mg/dL (70-99) 124 mg/dL (70-99) 145 mg/dL (70-99) 135 mg/dL (70-99) Test 12/16/18 04:08 12/16/18 07:00 White Blood Count 7.6 x10^3/uL (4.0-11.0) Red Blood Count 3.39 x10^6/uL (3.50-5.40) Hemoglobin 8.5 g/dL (12.0-15.5) Hematocrit 26.7 % (36.0-47.0) Mean Corpuscular Volume 79 fL (79-100) Mean Corpuscular Hemoglobin 25 pg (25-35) Mean Corpuscular Hemoglobin Concent 32 g/dL (31-37) Red Cell Distribution Width 22.2 % (11.5-14.5) Platelet Count 289 x10^3/uL (140-400) Neutrophils (%) (Auto) 67 % (31-73) Lymphocytes (%) (Auto) 22 % (24-48) Monocytes (%) (Auto) 9 % (0-9) Eosinophils (%) (Auto) 1 % (0-3) Basophils (%) (Auto) 1 % (0-3) Neutrophils # (Auto) 5.1 x10^3uL (1.8-7.7) Lymphocytes # (Auto) 1.6 x10^3/uL (1.0-4.8) Monocytes # (Auto) 0.7 x10^3/uL (0.0-1.1) Eosinophils # (Auto) 0.1 x10^3/uL (0.0-0.7) Basophils # (Auto) 0.0 x10^3/uL (0.0-0.2) Sodium Level 139 mmol/L (136-145) Potassium Level 3.4 mmol/L (3.5-5.1) Chloride Level 103 mmol/L (98-107) Carbon Dioxide Level 27 mmol/L (21-32) Anion Gap 9 (6-14) Blood Urea Nitrogen 6 mg/dL (7-20) Creatinine 0.8 mg/dL (0.6-1.0) Estimated GFR (Cockcroft-Gault) 84.8 Glucose Level 139 mg/dL (70-99) Calcium Level 9.2 mg/dL (8.5-10.1) Glucose (Fingerstick) 126 mg/dL (70-99) Assessment/Plan Anemia from presumed GI bleed Nuc Med bleeding scan 11/24/[address] Angio 11/24/16 showed bleeding in the sigmoid colon Colonoscopy 12/16/17 d sigmoid diverticulosis without bleeding EGD 11/22/18 gastritis without bleeding Small bowel series 11/26/18 negative Capsule endoscopy 12/07/18 showed some angiodysplasias at the cecum Information is confusing as to the source of bleeding. She is scheduled for colonoscopy today will F/U on results. Hopefully, will give clearer picture as to the source. DAYLIN WEI MD Dec 16, 2018 09:02
--- NOTE | 2018-12-16 10:00 | PDOC ---
PROGRESS NOTES History of Present Illness History of Present Illness VTE Prophylaxis Ordered VTE Prophylaxis Devices: Yes VTE Pharmacological Prophylaxi: Contraindicated Assessment/Plan Assessment/Plan Assessment/Plan Assessment/Plan Gi bleed acute ,Questionable GI bleed with anemia marked anemia POA Colonoscopy in 11/2017 showed diverticulosis, EGD 11/2018 showed non-erosive gastritis bleeding cecal ulcer/avm s/p endo-clip with continued oozing Plan surgical resection tomorrow and possible hemorrhoid debulking testing with capsule showed retained blood in right colon bleeding scan 12/14, gen surg FOLLOWING Vitals Vitals Vital Signs Date Time Temp Pulse Resp B/P (MAP) Pulse Ox O2 Delivery O2 Flow Rate FiO2 12/16/18 07:00 98.8 82 17 117/78 (91) 92 Room Air 98.8 Physical Exam General: Alert, Oriented X3, Cooperative, No acute distress Heart: Regular rate, Normal S1, No murmurs Lungs: Clear Abdomen: Normal bowel sounds, Soft, No tenderness Extremities: No clubbing, No cyanosis, No edema Skin: No significant lesion Labs LABS Operative Note Operative Note Colonoscopy with endo-clipping Meds propofol per anesthesia Pre-op dx chroinc blood loss anemia/abnl pill cam endoscopy post-op dx large external and internal hemorrhoids sigmoid and cecal diverticuli bleeding cecal ulcer/avm s/p endo-clip with continued oozing Plan surgical resection tomorrow and possible hemorrhoid debulking Laboratory Tests Test 12/15/18 11:27 12/15/18 16:28 12/15/18 19:27 12/16/18 03:46 Glucose (Fingerstick) 166 mg/dL (70-99) 124 mg/dL (70-99) 145 mg/dL (70-99) 135 mg/dL (70-99) Test 12/16/18 04:08 12/16/18 07:00 White Blood Count 7.6 x10^3/uL (4.0-11.0) Red Blood Count 3.39 x10^6/uL (3.50-5.40) Hemoglobin 8.5 g/dL (12.0-15.5) Hematocrit 26.7 % (36.0-47.0) Mean Corpuscular Volume 79 fL (79-100) Mean Corpuscular Hemoglobin 25 pg (25-35) Mean Corpuscular Hemoglobin Concent 32 g/dL (31-37) Red Cell Distribution Width 22.2 % (11.5-14.5) Platelet Count 289 x10^3/uL (140-400) Neutrophils (%) (Auto) 67 % (31-73) Lymphocytes (%) (Auto) 22 % (24-48) Monocytes (%) (Auto) 9 % (0-9) Eosinophils (%) (Auto) 1 % (0-3) Basophils (%) (Auto) 1 % (0-3) Neutrophils # (Auto) 5.1 x10^3uL (1.8-7.7) Lymphocytes # (Auto) 1.6 x10^3/uL (1.0-4.8) Monocytes # (Auto) 0.7 x10^3/uL (0.0-1.1) Eosinophils # (Auto) 0.1 x10^3/uL (0.0-0.7) Basophils # (Auto) 0.0 x10^3/uL (0.0-0.2) Sodium Level 139 mmol/L (136-145) Potassium Level 3.4 mmol/L (3.5-5.1) Chloride Level 103 mmol/L (98-107) Carbon Dioxide Level 27 mmol/L (21-32) Anion Gap 9 (6-14) Blood Urea Nitrogen 6 mg/dL (7-20) Creatinine 0.8 mg/dL (0.6-1.0) Estimated GFR (Cockcroft-Gault) 84.8 Glucose Level 139 mg/dL (70-99) Calcium Level 9.2 mg/dL (8.5-10.1) Glucose (Fingerstick) 126 mg/dL (70-99) Comment Review of Relevant I have reviewed the following items abdifatah (where applicable) has been applied. Labs Laboratory Tests Test 12/14/18 13:44 12/14/18 16:56 12/15/18 04:08 12/15/18 07:16 White Blood Count 8.5 x10^3/uL (4.0-11.0) 8.8 x10^3/uL (4.0-11.0) Red Blood Count 2.58 x10^6/uL (3.50-5.40) 3.34 x10^6/uL (3.50-5.40) Hemoglobin 6.0 g/dL (12.0-15.5) 8.6 g/dL (12.0-15.5) Hematocrit 19.4 % (36.0-47.0) 26.5 % (36.0-47.0) Mean Corpuscular Volume 75 fL (79-100) 79 fL (79-100) Mean Corpuscular Hemoglobin 23 pg (25-35) 26 pg (25-35) Mean Corpuscular Hemoglobin Concent 31 g/dL (31-37) 32 g/dL (31-37) Red Cell Distribution Width 20.5 % (11.5-14.5) 22.1 % (11.5-14.5) Platelet Count 336 x10^3/uL (140-400) 305 x10^3/uL (140-400) Neutrophils (%) (Auto) 73 % (31-73) 67 % (31-73) Lymphocytes (%) (Auto) 17 % (24-48) 21 % (24-48) Monocytes (%) (Auto) 9 % (0-9) 10 % (0-9) Eosinophils (%) (Auto) 0 % (0-3) 1 % (0-3) Basophils (%) (Auto) 1 % (0-3) 1 % (0-3) Neutrophils # (Auto) 6.1 x10^3uL (1.8-7.7) 5.9 x10^3uL (1.8-7.7) Lymphocytes # (Auto) 1.5 x10^3/uL (1.0-4.8) 1.8 x10^3/uL (1.0-4.8) Monocytes # (Auto) 0.8 x10^3/uL (0.0-1.1) 0.9 x10^3/uL (0.0-1.1) Eosinophils # (Auto) 0.0 x10^3/uL (0.0-0.7) 0.1 x10^3/uL (0.0-0.7) Basophils # (Auto) 0.0 x10^3/uL (0.0-0.2) 0.1 x10^3/uL (0.0-0.2) Platelet Estimate Adequate (ADEQUATE) Polychromasia Slight Hypochromasia Slight Poikilocytosis Slight Anisocytosis Mod Microcytosis Slight Spherocytes Occ Target Cells Few Ovalocytes Occ Schistocytes Occ Prothrombin Time 14.3 SEC (11.7-14.0) Prothromb Time International Ratio 1.1 (0.8-1.1) Activated Partial Thromboplast Time 29 SEC (24-38) Sodium Level 140 mmol/L (136-145) 140 mmol/L (136-145) Potassium Level 4.1 mmol/L (3.5-5.1) 3.9 mmol/L (3.5-5.1) Chloride Level 101 mmol/L (98-107) 104 mmol/L (98-107) Carbon Dioxide Level 29 mmol/L (21-32) 27 mmol/L (21-32) Anion Gap 10 (6-14) 9 (6-14) Blood Urea Nitrogen 21 mg/dL (7-20) 13 mg/dL (7-20) Creatinine 1.2 mg/dL (0.6-1.0) 0.9 mg/dL (0.6-1.0) Estimated GFR (Cockcroft-Gault) 53.1 74.1 BUN/Creatinine Ratio 18 (6-20) Glucose Level 141 mg/dL (70-99) 126 mg/dL (70-99) Calcium Level 9.8 mg/dL (8.5-10.1) 9.5 mg/dL (8.5-10.1) Total Bilirubin 0.4 mg/dL (0.2-1.0) Aspartate Amino Transf (AST/SGOT) 14 U/L (15-37) Alanine Aminotransferase (ALT/SGPT) 22 U/L (14-59) Alkaline Phosphatase 63 U/L (46-116) Total Protein 7.4 g/dL (6.4-8.2) Albumin 3.4 g/dL (3.4-5.0) Albumin/Globulin Ratio 0.9 (1.0-1.7) Glucose (Fingerstick) 102 mg/dL (70-99) 135 mg/dL (70-99) Test 12/15/18 11:27 12/15/18 16:28 12/15/18 19:27 12/16/18 03:46 Glucose (Fingerstick) 166 mg/dL (70-99) 124 mg/dL (70-99) 145 mg/dL (70-99) 135 mg/dL (70-99) Test 12/16/18 04:08 12/16/18 07:00 White Blood Count 7.6 x10^3/uL (4.0-11.0) Red Blood Count 3.39 x10^6/uL (3.50-5.40) Hemoglobin 8.5 g/dL (12.0-15.5) Hematocrit 26.7 % (36.0-47.0) Mean Corpuscular Volume 79 fL (79-100) Mean Corpuscular Hemoglobin 25 pg (25-35) Mean Corpuscular Hemoglobin Concent 32 g/dL (31-37) Red Cell Distribution Width 22.2 % (11.5-14.5) Platelet Count 289 x10^3/uL (140-400) Neutrophils (%) (Auto) 67 % (31-73) Lymphocytes (%) (Auto) 22 % (24-48) Monocytes (%) (Auto) 9 % (0-9) Eosinophils (%) (Auto) 1 % (0-3) Basophils (%) (Auto) 1 % (0-3) Neutrophils # (Auto) 5.1 x10^3uL (1.8-7.7) Lymphocytes # (Auto) 1.6 x10^3/uL (1.0-4.8) Monocytes # (Auto) 0.7 x10^3/uL (0.0-1.1) Eosinophils # (Auto) 0.1 x10^3/uL (0.0-0.7) Basophils # (Auto) 0.0 x10^3/uL (0.0-0.2) Sodium Level 139 mmol/L (136-145) Potassium Level 3.4 mmol/L (3.5-5.1) Chloride Level 103 mmol/L (98-107) Carbon Dioxide Level 27 mmol/L (21-32) Anion Gap 9 (6-14) Blood Urea Nitrogen 6 mg/dL (7-20) Creatinine 0.8 mg/dL (0.6-1.0) Estimated GFR (Cockcroft-Gault) 84.8 Glucose Level 139 mg/dL (70-99) Calcium Level 9.2 mg/dL (8.5-10.1) Glucose (Fingerstick) 126 mg/dL (70-99) Laboratory Tests Test 12/15/18 11:27 12/15/18 16:28 12/15/18 19:27 12/16/18 03:46 Glucose (Fingerstick) 166 mg/dL (70-99) 124 mg/dL (70-99) 145 mg/dL (70-99) 135 mg/dL (70-99) Test 12/16/18 04:08 12/16/18 07:00 White Blood Count 7.6 x10^3/uL (4.0-11.0) Red Blood Count 3.39 x10^6/uL (3.50-5.40) Hemoglobin 8.5 g/dL (12.0-15.5) Hematocrit 26.7 % (36.0-47.0) Mean Corpuscular Volume 79 fL (79-100) Mean Corpuscular Hemoglobin 25 pg (25-35) Mean Corpuscular Hemoglobin Concent 32 g/dL (31-37) Red Cell Distribution Width 22.2 % (11.5-14.5) Platelet Count 289 x10^3/uL (140-400) Neutrophils (%) (Auto) 67 % (31-73) Lymphocytes (%) (Auto) 22 % (24-48) Monocytes (%) (Auto) 9 % (0-9) Eosinophils (%) (Auto) 1 % (0-3) Basophils (%) (Auto) 1 % (0-3) Neutrophils # (Auto) 5.1 x10^3uL (1.8-7.7) Lymphocytes # (Auto) 1.6 x10^3/uL (1.0-4.8) Monocytes # (Auto) 0.7 x10^3/uL (0.0-1.1) Eosinophils # (Auto) 0.1 x10^3/uL (0.0-0.7) Basophils # (Auto) 0.0 x10^3/uL (0.0-0.2) Sodium Level 139 mmol/L (136-145) Potassium Level 3.4 mmol/L (3.5-5.1) Chloride Level 103 mmol/L (98-107) Carbon Dioxide Level 27 mmol/L (21-32) Anion Gap 9 (6-14) Blood Urea Nitrogen 6 mg/dL (7-20) Creatinine 0.8 mg/dL (0.6-1.0) Estimated GFR (Cockcroft-Gault) 84.8 Glucose Level 139 mg/dL (70-99) Calcium Level 9.2 mg/dL (8.5-10.1) Glucose (Fingerstick) 126 mg/dL (70-99) Medications Current Medications Sodium Chloride 1,000 ml @ 1,000 mls/hr 1X ONCE IV Last administered on 13:52; Start 12/14/18 at 13:30; Stop 12/14/18 at 14:29; Status DC Amlodipine Besylate (Norvasc) 10 mg DAILY PO Last administered on 12/15/18 10: 54; Start 12/14/18 at 17:00 Chlorhexidine Gluconate (Peridex) 15 ml BID MM Last administered on 12/15/18 21:26; Start 12/14/18 at 21:00 Non-Formulary Medication (Albuterol Sulfate (Ventolin Hfa Inhaler)) 2 puff Q4HRS INH ; Start 12/14/18 at 20:00; Status UNV Ascorbic Acid (Vitamin C) 500 mg DAILY PO Last administered on 12/15/18 10:54 ; Start 12/14/18 at 17:00 Duloxetine HCl (Cymbalta) 90 mg DAILY PO Last administered on 12/15/18 10:53; Start 12/14/18 at 17:00 Ferrous Sulfate (Feosol) 325 mg DAILYWBKFT PO Last administered on 12/15/18 10 :55; Start 12/14/18 at 17:00 Losartan Potassium (Cozaar) 100 mg DAILY PO Last administered on 12/15/18 10: 54; Start 12/14/18 at 17:00 Memantine (Namenda) 10 mg BID PO Last administered on 12/15/18 21:27; Start at 21:00 Pantoprazole Sodium (Protonix) 40 mg DAILYAC PO Last administered on 12/16/18 05:43; Start 12/14/18 at 17:00 Ropinirole HCl (Requip) 3 mg QHS PO Last administered on 12/15/18 21:27; Start 12/14/18 at 21:00 Spironolactone (Aldactone) 25 mg DAILY PO Last administered on 12/15/18at 10:55 ; Start 12/14/18 at 17:00 Albuterol Sulfate (Ventolin Neb Soln) 2.5 mg Q4HRS NEB Last administered on at 06:56; Start 12/14/18 at 20:00 Sodium Chloride 1,000 ml @ 80 mls/hr [id number] IV Last administered on at 00:51; Start 12/14/18 at 17:15 Acetaminophen (Tylenol) 650 mg PRN Q6HRS PRN PO Pain Last administered on at 08:11; Start 12/15/18 at 04:45 Polyethylene Glycol (miraLAX Powder BULK BOTTLE) 238 gm 1X ONCE PO Last administered on 12/15/18at 12:48; Start 12/15/18 at 12:00; Stop 12/15/18 at 12:01 ; Status DC Ondansetron HCl (Zofran) 4 mg PRN Q6HRS PRN IV NAUSEA/VOMITING; Start 12/16/18 at 07:00; Stop 12/17/18 at 06:59 Fentanyl Citrate (Fentanyl 2ml Vial) 25 mcg PRN Q5MIN PRN IV MILD PAIN; Start 12/16/18 at 07:00; Stop 12/17/18 at 06:59 Fentanyl Citrate (Fentanyl 2ml Vial) 50 mcg PRN Q5MIN PRN IV MODERATE TO SEVERE PAIN; Start 12/16/18 at 07:00; Stop 12/17/18 at 06:59 Morphine Sulfate (Morphine Sulfate) 1 mg PRN Q10MIN PRN IV SEVERE PAIN; Start 12/16/18 at 07:00; Stop 12/17/18 at 06:59 Ringer's Solution 1,000 ml @ 30 mls/hr Q24H IV ; Start 12/16/18 at 07:00; Stop 12/16/18 at 18:59 Lidocaine HCl (Xylocaine-Mpf 1% 2ml Vial) 2 ml PRN 1X PRN ID IV START; Start at 07:00; Stop 12/17/18 at 06:59 Hydromorphone HCl (Dilaudid) 0.5 mg PRN Q10MIN PRN IV SEV PAIN, Second choice; Start 12/16/18 at 07:00; Stop 12/17/18 at 06:59 Prochlorperazine Edisylate (Compazine) 5 mg PACU PRN PRN IV NAUSEA, MRX1; Start 12/16/18 at 07:00; Stop 12/17/18 at 06:59 Midazolam HCl (Versed) 2 mg PRN 1X PRN IV PRIOR TO PROCEDURE; Start 12/16/18 at 07:15; Stop 12/17/18 at 07:14 Fentanyl Citrate (Fentanyl 2ml Vial) 25 mcg PRN Q5MIN PRN IV X 2 DOSES FOR PAIN ; Start 12/16/18 at 07:15; Stop 12/17/18 at 07:14 Fentanyl Citrate (Fentanyl 2ml Vial) 50 mcg PRN Q5MIN PRN IV X 2 DOSES FOR PAIN ; Start 12/16/18 at 07:15; Stop 12/17/18 at 07:14 Ringer's Solution 1,000 ml @ 125 mls/hr Q8H IV ; Start 12/16/18 at 07:13; Stop 12/16/18 at 19:12 Lidocaine HCl (Xylocaine-Mpf 1% 2ml Vial) 2 ml 1X PRN PRN ID IV START; Start at 07:15; Stop 12/17/18 at 07:14 Active Scripts Active Chlorhexidine Gluconate 473 Ml Mouthwash 473 Ml MM BID 7 Days Vitamin C (Ascorbate Calcium) 500 Mg Tablet 500 Mg PO DAILY 30 Days Slow Release Iron (Ferrous Sulfate) 250 Mg Tablet.er 250 Mg PO DAILY 30 Days Protonix (Pantoprazole Sodium) 40 Mg Nav. 40 Mg PO DAILY 30 Days Reported Metformin Hcl Er (Metformin Hcl) 500 Mg Tab.er.24h 1 Tab PO DAILY Namenda (Memantine Hcl) 10 Mg Tablet 1 Tab PO BID Losartan Potassium 100 Mg Tablet 100 Mg PO DAILY Spironolactone 25 Mg Tablet 1 Tab PO DAILY Ventolin Hfa Inhaler (Albuterol Sulfate) 18 Gm Hfa.aer.ad 2 Puff INH Q4HRS Cymbalta (Duloxetine Hcl) 20 Mg Capsule. 90 Mg PO DAILY Requip (Ropinirole Hcl) 1 Mg Tablet 3 Mg PO DAILY Amlodipine Besylate 10 Mg Tablet 10 Mg PO DAILY Vitals/I & O Vital Sign - Last 24 Hours 12/15/18 12/15/18 12/15/18 12/15/18 10:54 10:54 11:00 12:20 Temp 98.0 98.0 Pulse 73 73 73 Resp 17 B/P (MAP) 143/80 143/80 143/80 (101) Pulse Ox 95 95 O2 Delivery Room Air Room Air 12/15/18 12/15/18 12/15/18 12/15/18 15:00 17:01 19:00 20:00 Temp 98.3 97.9 98.3 97.9 Pulse 68 86 Resp 18 18 B/P (MAP) 141/72 (95) 148/89 (108) Pulse Ox 98 95 97 O2 Delivery Room Air Room Air Room Air Room Air 12/15/18 12/15/18 12/16/18 12/16/18 20:08 23:00 03:00 06:56 Temp 98.5 98.0 98.5 98.0 Pulse 80 80 Resp 18 18 B/P (MAP) 165/86 (112) 147/72 (97) Pulse Ox 96 93 99 96 O2 Delivery Room Air Room Air Room Air Room Air 12/16/18 07:00 Temp 98.8 98.8 Pulse 82 Resp 17 B/P (MAP) 117/78 (91) Pulse Ox 92 O2 Delivery Room Air Intake and Output 12/15/18 12/15/18 12/16/18 15:01 23:01 07:01 Intake Total 120 ml 480 ml 0 ml Output Total 0 ml Balance 120 ml 480 ml 0 ml DAYLIN MILLER MD Dec 16, 2018 10:00
--- NOTE | 2018-12-16 12:19 | NUR ---
Pt was given 2 1000ml TWE's 50 minutes apart. Pt siddhartha well after 2nd enema clear brown tinged fluid returned.
[2018-12-16] MEDS ORDERED: PROPOFOL 40 ML IV ONE (13:58)
--- NOTE | 2018-12-16 14:45 | PDOC4 ---
Operative Note Operative Note Colonoscopy with endo-clipping Meds propofol per anesthesia Pre-op dx chroinc blood loss anemia/abnl pill cam endoscopy post-op dx large external and internal hemorrhoids sigmoid and cecal diverticuli bleeding cecal ulcer/avm s/p endo-clip with continued oozing Plan surgical resection tomorrow and possible hemorrhoid debulking ELIZABETH PACHECO MD Dec 16, 2018 14:45
--- NOTE | 2018-12-16 16:06 | PDOC ---
SURGICAL PROGRESS NOTE Subjective Patient doing quite well status post colonoscopy where she was found to have a cecal diverticulum with ulceration and bleeding attempts at clipping the bleed with the endoscope were unsuccessful. Vital Signs Vital Signs Date Time Temp Pulse Resp B/P (MAP) Pulse Ox O2 Delivery O2 Flow Rate FiO2 12/16/18 15:13 65 16 154/78 95 Room Air 12/16/18 15:00 98.8 98.8 I&O Intake and Output 12/16/18 07:01 Intake Total 600 ml Output Total 0 ml Balance 600 ml Intake Oral 600 ml Output Urine Total 0 ml # Voids 3 PATIENT HAS A PILLAI: No General: Alert, Oriented X3, Cooperative, No acute distress Abdomen: Normal bowel sounds, Soft, No tenderness Labs Laboratory Tests Test 12/14/18 16:56 12/15/18 04:08 12/15/18 07:16 12/15/18 11:27 Glucose (Fingerstick) 102 mg/dL (70-99) 135 mg/dL (70-99) 166 mg/dL (70-99) White Blood Count 8.8 x10^3/uL (4.0-11.0) Red Blood Count 3.34 x10^6/uL (3.50-5.40) Hemoglobin 8.6 g/dL (12.0-15.5) Hematocrit 26.5 % (36.0-47.0) Mean Corpuscular Volume 79 fL (79-100) Mean Corpuscular Hemoglobin 26 pg (25-35) Mean Corpuscular Hemoglobin Concent 32 g/dL (31-37) Red Cell Distribution Width 22.1 % (11.5-14.5) Platelet Count 305 x10^3/uL (140-400) Neutrophils (%) (Auto) 67 % (31-73) Lymphocytes (%) (Auto) 21 % (24-48) Monocytes (%) (Auto) 10 % (0-9) Eosinophils (%) (Auto) 1 % (0-3) Basophils (%) (Auto) 1 % (0-3) Neutrophils # (Auto) 5.9 x10^3uL (1.8-7.7) Lymphocytes # (Auto) 1.8 x10^3/uL (1.0-4.8) Monocytes # (Auto) 0.9 x10^3/uL (0.0-1.1) Eosinophils # (Auto) 0.1 x10^3/uL (0.0-0.7) Basophils # (Auto) 0.1 x10^3/uL (0.0-0.2) Sodium Level 140 mmol/L (136-145) Potassium Level 3.9 mmol/L (3.5-5.1) Chloride Level 104 mmol/L (98-107) Carbon Dioxide Level 27 mmol/L (21-32) Anion Gap 9 (6-14) Blood Urea Nitrogen 13 mg/dL (7-20) Creatinine 0.9 mg/dL (0.6-1.0) Estimated GFR (Cockcroft-Gault) 74.1 Glucose Level 126 mg/dL (70-99) Calcium Level 9.5 mg/dL (8.5-10.1) Test 12/15/18 16:28 12/15/18 19:27 12/16/18 03:46 12/16/18 04:08 Glucose (Fingerstick) 124 mg/dL (70-99) 145 mg/dL (70-99) 135 mg/dL (70-99) White Blood Count 7.6 x10^3/uL (4.0-11.0) Red Blood Count 3.39 x10^6/uL (3.50-5.40) Hemoglobin 8.5 g/dL (12.0-15.5) Hematocrit 26.7 % (36.0-47.0) Mean Corpuscular Volume 79 fL (79-100) Mean Corpuscular Hemoglobin 25 pg (25-35) Mean Corpuscular Hemoglobin Concent 32 g/dL (31-37) Red Cell Distribution Width 22.2 % (11.5-14.5) Platelet Count 289 x10^3/uL (140-400) Neutrophils (%) (Auto) 67 % (31-73) Lymphocytes (%) (Auto) 22 % (24-48) Monocytes (%) (Auto) 9 % (0-9) Eosinophils (%) (Auto) 1 % (0-3) Basophils (%) (Auto) 1 % (0-3) Neutrophils # (Auto) 5.1 x10^3uL (1.8-7.7) Lymphocytes # (Auto) 1.6 x10^3/uL (1.0-4.8) Monocytes # (Auto) 0.7 x10^3/uL (0.0-1.1) Eosinophils # (Auto) 0.1 x10^3/uL (0.0-0.7) Basophils # (Auto) 0.0 x10^3/uL (0.0-0.2) Sodium Level 139 mmol/L (136-145) Potassium Level 3.4 mmol/L (3.5-5.1) Chloride Level 103 mmol/L (98-107) Carbon Dioxide Level 27 mmol/L (21-32) Anion Gap 9 (6-14) Blood Urea Nitrogen 6 mg/dL (7-20) Creatinine 0.8 mg/dL (0.6-1.0) Estimated GFR (Cockcroft-Gault) 84.8 Glucose Level 139 mg/dL (70-99) Calcium Level 9.2 mg/dL (8.5-10.1) Test 12/16/18 07:00 12/16/18 11:15 Glucose (Fingerstick) 126 mg/dL (70-99) 133 mg/dL (70-99) Laboratory Tests Test 12/15/18 16:28 12/15/18 19:27 12/16/18 03:46 12/16/18 04:08 Glucose (Fingerstick) 124 mg/dL (70-99) 145 mg/dL (70-99) 135 mg/dL (70-99) White Blood Count 7.6 x10^3/uL (4.0-11.0) Red Blood Count 3.39 x10^6/uL (3.50-5.40) Hemoglobin 8.5 g/dL (12.0-15.5) Hematocrit 26.7 % (36.0-47.0) Mean Corpuscular Volume 79 fL (79-100) Mean Corpuscular Hemoglobin 25 pg (25-35) Mean Corpuscular Hemoglobin Concent 32 g/dL (31-37) Red Cell Distribution Width 22.2 % (11.5-14.5) Platelet Count 289 x10^3/uL (140-400) Neutrophils (%) (Auto) 67 % (31-73) Lymphocytes (%) (Auto) 22 % (24-48) Monocytes (%) (Auto) 9 % (0-9) Eosinophils (%) (Auto) 1 % (0-3) Basophils (%) (Auto) 1 % (0-3) Neutrophils # (Auto) 5.1 x10^3uL (1.8-7.7) Lymphocytes # (Auto) 1.6 x10^3/uL (1.0-4.8) Monocytes # (Auto) 0.7 x10^3/uL (0.0-1.1) Eosinophils # (Auto) 0.1 x10^3/uL (0.0-0.7) Basophils # (Auto) 0.0 x10^3/uL (0.0-0.2) Sodium Level 139 mmol/L (136-145) Potassium Level 3.4 mmol/L (3.5-5.1) Chloride Level 103 mmol/L (98-107) Carbon Dioxide Level 27 mmol/L (21-32) Anion Gap 9 (6-14) Blood Urea Nitrogen 6 mg/dL (7-20) Creatinine 0.8 mg/dL (0.6-1.0) Estimated GFR (Cockcroft-Gault) 84.8 Glucose Level 139 mg/dL (70-99) Calcium Level 9.2 mg/dL (8.5-10.1) Test 12/16/18 07:00 12/16/18 11:15 Glucose (Fingerstick) 126 mg/dL (70-99) 133 mg/dL (70-99) Assessment/Plan Cecal diverticulum with ulceration and bleeding and for laparoscopic cecectomy in the a.m. in addition were all due hemorrhoidectomy. An long discussion with the patient and her family about surgery risks benefits and she wishes to proceed with surgery. DAYLIN WEI MD Dec 16, 2018 16:06
[2018-12-16] MEDS: FERROUS SULFATE 325 MG TABLET. PO SCH (16:57)
[2018-12-16] MEDS: LOSARTAN POTASSIUM 50 MG TABLET. PO SCH (16:58)
[2018-12-16] MEDS: SPIRONOLACTONE 25 MG TABLET PO SCH (16:58)
[2018-12-16] MEDS: DULoxetine HCL 30 MG CAPSULE.DR PO SCH (16:59)
[2018-12-16] MEDS: ASCORBIC ACID 500 MG TABLET PO SCH (17:00)
[2018-12-16] MEDS: amLODIPine BESYLATE 10 MG TABLET PO SCH (17:06)
[2018-12-16] MEDS: rOPINIRole 1 MG TABLET. PO SCH (21:31)
[2018-12-17] VITALS (15 sets, daily range): BP systolic 114–150; BP diastolic 67–92
[2018-12-17] MEDS ORDERED: ONDANSETRON PF 4 MG/2 ML VIAL. IV PRN (07:00)
[2018-12-17] MEDS ORDERED: PROCHLORPERAZINE 10 MG/2 ML VIAL. IV PRN (07:00)
[2018-12-17] MEDS ORDERED: LIDOCAINE 1% PF 2 ML VIAL. ID PRN (07:00)
[2018-12-17] MEDS ORDERED: fentaNYL PF VIAL 100 MCG/2 ML VIAL IV PRN (07:00)
[2018-12-17] MEDS ORDERED: MORPHINE SULFATE 4 MG/ML VIAL. IV PRN (07:00)
[2018-12-17] MEDS ORDERED: HYDROmorphone 2 MG/ML VIAL IV PRN (07:00)
[2018-12-17] MEDS ORDERED: SUCCINYLCHOLINE 200 MG/10 ML VIAL. ONE (07:21)
[2018-12-17] MEDS ORDERED: ROCURONIUM 50 MG/5 ML VIAL. ONE (07:21)
[2018-12-17] MEDS ORDERED: PROPOFOL 20 ML IV ONE (07:21)
[2018-12-17] MEDS ORDERED: LIDOCAINE 2% PF 5 ML VIAL. ONE (07:21)
[2018-12-17] MEDS ORDERED: fentaNYL PF VIAL 100 MCG/2 ML VIAL ONE (07:21)
[2018-12-17] MEDS: IV RINGERS,LACTATED 1000ML 1,000 ML IV SCH ×2 (07:26→10:34)
[2018-12-17] MEDS: ALBUTEROL SULFATE 2.5 MG/3 ML NEBU. NEB SCH ×7 (07:28→23:22)
[2018-12-17] MEDS ORDERED: ALBUTEROL SULFATE 2.5 MG/3 ML NEBU. NEB ONE (07:30)
[2018-12-17] MEDS: PANTOPRAZOLE 40 MG TABLET.DR. PO SCH (07:30)
[2018-12-17] MEDS: IV NORMAL SALINE 1000ML BAG 1,000 ML IV SCH ×2 (07:45→11:57)
[2018-12-17] MEDS ORDERED: BUPIVAC MPF-EPI 0.5%-1:200000 30 ML VIAL. ONE ×2 (07:46→09:41)
[2018-12-17] MEDS ORDERED: NEOMY/BACITR/POLYMYXIN OINT PACKET. TP ONE ×3 (07:46→07:47)
[2018-12-17] MEDS ORDERED: DESFLURANE > 120 MINUTES IH ONE (07:54)
[2018-12-17] MEDS ORDERED: DEXAMETHASONE SOD PHOS 20 MG/5 ML VIAL. ONE (07:54)
[2018-12-17] MEDS ORDERED: HYDROCORTISONE SOD SUCC/PF 100 MG/2 ML VIAL. ONE (07:54)
[2018-12-17] MEDS: FERROUS SULFATE 325 MG TABLET. PO SCH (08:00)
[2018-12-17] MEDS ORDERED: NEOSTIGMINE 10 MG/10 ML VIAL. ONE (08:21)
[2018-12-17] MEDS ORDERED: GLYCOPYRROLATE 1 MG/5 ML VIAL. ONE (08:21)
[2018-12-17] MEDS ORDERED: PHENYLEPHRINE 10 MG/ML VIAL. ONE (08:23)
[2018-12-17] MEDS: ASCORBIC ACID 500 MG TABLET PO SCH (09:00)
[2018-12-17] MEDS: DULoxetine HCL 30 MG CAPSULE.DR PO SCH (09:00)
[2018-12-17] MEDS: MEMANTINE 10 MG TABLET. PO SCH ×2 (09:00→21:05)
[2018-12-17] MEDS: SPIRONOLACTONE 25 MG TABLET PO SCH (09:00)
[2018-12-17] MEDS: LOSARTAN POTASSIUM 50 MG TABLET. PO SCH (09:00)
[2018-12-17] MEDS: CHLORHEXIDINE 0.12% 15 ML MOUTHWASH. MM SCH ×2 (09:00→21:06)
[2018-12-17] MEDS: amLODIPine BESYLATE 10 MG TABLET PO SCH (09:00)
[2018-12-17] MEDS ORDERED: DESFLURANE 61 TO 120 MINUTES IH ONE (09:23)
--- NOTE | 2018-12-17 09:37 | NUR ---
Pt to transfer post op to room 442,report called to receiving nurse Tamar VAUGHN. Pt's belongings moved to room 442.
--- NOTE | 2018-12-17 10:03 | PDOC4 ---
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 She is also found to have grade 3 hemorrhoids on her colonoscopy. The procedure of laparoscopic-assisted right colon resection and hemorrhoidectomy were explained to the patient in detail all risks and benefits were also discussed including bleeding infection injury to intra-abdominal contents possibly necessitating further or open operations alternatives to this procedure were also discussed with the patient is seemed to understand and gave both verbal and written consent to have the procedure performed. Patient was taken to the operating room placed in supine position general anesthesia with was initiated once patient was asleep and it abated her abdomen was prepped and draped usual sterile fashion using ChloraPrep and area at the umbilicus was injected with quarter percent Marcaine with epinephrine and incision was mail-in blade scalpel and a Veress needle was placed within the abdomen creating pneumoperitoneum once this was complete 5 mm port was placed and a 5mm camera was placed within the abdomen which was inspected no other abnormalities were noted. A 5 mm port was placed under direct visualization low in the left abdomen and one in the epigastrium. Using the services should the white line of Toldt was taken down laterally to free up the right colon there were some attachments to the appendix which were taken down with the Sonos incision. Once the right colon and freed up up to the hepatic flexure and incision was made in the right lower quadrant transversely about 7 cm this was carried down through the subcutaneous tissue using electrocautery divided hemostasis established fascia which again was opened with electrocautery and the peritoneum was opened with electrocautery a Yasmeen retractor was placed and the cecum and terminal ileum right colon were brought up through the retractor A CECILIA staplers used to staple and transect at the terminal ileum a second load was used to staple and transect the right colon about mid descending colon. A [id number] stapled anastomosis was performed between the small bowel and the colon and the enterotomy was closed with a running interlocking 3-0 PDS and oversewn with 3-0 Vicryl Lembert sutures. This was then returned to the abdomen the Yasmeen retractor was removed to the peritoneum was closed with a running 0 Vicryl and the fascia was closed with a running oh looped PDS. The deep subcutaneous layers closed running 3-0 Vicryl the skin was reapproximated for septic or Monocryl all ports removed skin incisions at the port sites were closed with 4- 0 subcuticular Monocryl Mastisol Steri-Strips and island dressings were applied. Once this was completed the drapes were taken down the patient was repositioned in the lithotomy position and her perineum was prepped and draped usual sterile fashion using Betadine solution. She had sequential hemorrhoids these area was injected with quarter percent Marcaine with epinephrine and the hemorrhoids were excised using the Harmonic scalpel. Once this complete area was dressed with antibiotic ointment A BD and mesh underwear. The patient was awakened and extubated in operating room taken recovery in stable condition all sponge instrument needle counts listed as correct estimated blood loss 30 mL. DAYLIN WEI MD Dec 17, 2018 10:02
[2018-12-17] MEDS: fentaNYL PF VIAL 100 MCG/2 ML VIAL IV PRN ×2 (10:35→11:13)
--- NOTE | 2018-12-17 11:05 | PDOC ---
Objective: Vital Signs: Vital Signs Date Time Temp Pulse Resp B/P (MAP) Pulse Ox O2 Delivery O2 Flow Rate FiO2 12/17/18 10:35 22 99 Simple Mask 10.0 12/17/18 10:33 79 156/75 12/17/18 10:03 97.2 97.2 Labs: Laboratory Tests Test 12/16/18 11:15 12/16/18 16:13 12/16/18 20:26 Glucose (Fingerstick) 133 mg/dL 116 mg/dL 117 mg/dL Imaging: Colonoscopy 12/16 large external and internal hemorrhoids sigmoid and cecal diverticuli bleeding cecal ulcer/avm s/p endo-clip with continued oozing PE: not in room A/P: S/p right colon resection and hemorrhoidectomy -- Will follow post-op. RADHA JUSTICE Dec 17, 2018 11:04 ELIZABETH PACHECO MD Dec 17, 2018 11:17
--- NOTE | 2018-12-17 11:09 | PDOC ---
PROGRESS NOTES History of Present Illness History of Present Illness VTE Prophylaxis Ordered VTE Prophylaxis Devices: Yes VTE Pharmacological Prophylaxi: Contraindicated Assessment/Plan Assessment/Plan Assessment/Plan Assessment/Plan Gi bleed acute ,Questionable GI bleed with anemia marked anemia POA Colonoscopy in 11/2017 showed diverticulosis, EGD 11/2018 showed non-erosive gastritis bleeding cecal ulcer/avm s/p endo-clip with continued oozing Plan surgical resection 12/17/18 Operative Note Operative Note Date: 12/17/2018 Preoperative diagnosis: GI bleed cecal ulceration by colonoscopy with active bleeding hemorrhoids Postoperative diagnosis: Same Procedure: Laparoscopic-assisted right colon resection and hemorrhoidectomy Surgeon: Jan Specimen: Right colon and hemorrhoids testing with capsule showed retained blood in right colon Vitals Vitals Vital Signs Date Time Temp Pulse Resp B/P (MAP) Pulse Ox O2 Delivery O2 Flow Rate FiO2 12/17/18 11:03 82 22 147/80 100 Simple Mask 10 12/17/18 10:03 97.2 97.2 Physical Exam General: Alert, Oriented X3, Cooperative, No acute distress, mild distress Heart: Regular rate, Normal S1, No murmurs Lungs: Clear Abdomen: Normal bowel sounds, Soft, No tenderness Extremities: No clubbing, No cyanosis, No edema Skin: No significant lesion Labs LABS Laboratory Tests Test 12/16/18 11:15 12/16/18 16:13 12/16/18 20:26 Glucose (Fingerstick) 133 mg/dL (70-99) 116 mg/dL (70-99) 117 mg/dL (70-99) Comment Review of Relevant I have reviewed the following items abdifatah (where applicable) has been applied. Labs Laboratory Tests Test 12/15/18 11:27 12/15/18 16:28 12/15/18 19:27 12/16/18 03:46 Glucose (Fingerstick) 166 mg/dL (70-99) 124 mg/dL (70-99) 145 mg/dL (70-99) 135 mg/dL (70-99) Test 12/16/18 04:08 12/16/18 07:00 12/16/18 11:15 12/16/18 16:13 White Blood Count 7.6 x10^3/uL (4.0-11.0) Red Blood Count 3.39 x10^6/uL (3.50-5.40) Hemoglobin 8.5 g/dL (12.0-15.5) Hematocrit 26.7 % (36.0-47.0) Mean Corpuscular Volume 79 fL (79-100) Mean Corpuscular Hemoglobin 25 pg (25-35) Mean Corpuscular Hemoglobin Concent 32 g/dL (31-37) Red Cell Distribution Width 22.2 % (11.5-14.5) Platelet Count 289 x10^3/uL (140-400) Neutrophils (%) (Auto) 67 % (31-73) Lymphocytes (%) (Auto) 22 % (24-48) Monocytes (%) (Auto) 9 % (0-9) Eosinophils (%) (Auto) 1 % (0-3) Basophils (%) (Auto) 1 % (0-3) Neutrophils # (Auto) 5.1 x10^3uL (1.8-7.7) Lymphocytes # (Auto) 1.6 x10^3/uL (1.0-4.8) Monocytes # (Auto) 0.7 x10^3/uL (0.0-1.1) Eosinophils # (Auto) 0.1 x10^3/uL (0.0-0.7) Basophils # (Auto) 0.0 x10^3/uL (0.0-0.2) Sodium Level 139 mmol/L (136-145) Potassium Level 3.4 mmol/L (3.5-5.1) Chloride Level 103 mmol/L (98-107) Carbon Dioxide Level 27 mmol/L (21-32) Anion Gap 9 (6-14) Blood Urea Nitrogen 6 mg/dL (7-20) Creatinine 0.8 mg/dL (0.6-1.0) Estimated GFR (Cockcroft-Gault) 84.8 Glucose Level 139 mg/dL (70-99) Calcium Level 9.2 mg/dL (8.5-10.1) Glucose (Fingerstick) 126 mg/dL (70-99) 133 mg/dL (70-99) 116 mg/dL (70-99) Test 12/16/18 20:26 Glucose (Fingerstick) 117 mg/dL (70-99) Laboratory Tests Test 12/16/18 11:15 12/16/18 16:13 12/16/18 20:26 Glucose (Fingerstick) 133 mg/dL (70-99) 116 mg/dL (70-99) 117 mg/dL (70-99) Medications Current Medications Sodium Chloride 1,000 ml @ 1,000 mls/hr 1X ONCE IV Last administered on 13:52; Start 12/14/18 at 13:30; Stop 12/14/18 at 14:29; Status DC Amlodipine Besylate (Norvasc) 10 mg DAILY PO Last administered on 12/16/18 17: 06; Start 12/14/18 at 17:00 Chlorhexidine Gluconate (Peridex) 15 ml BID MM Last administered on 12/16/18 21:30; Start 12/14/18 at 21:00 Non-Formulary Medication (Albuterol Sulfate (Ventolin Hfa Inhaler)) 2 puff Q4HRS INH ; Start 12/14/18 at 20:00; Status UNV Ascorbic Acid (Vitamin C) 500 mg DAILY PO Last administered on 12/16/18 17:00 ; Start 12/14/18 at 17:00 Duloxetine HCl (Cymbalta) 90 mg DAILY PO Last administered on 12/16/18 16:59; Start 12/14/18 at 17:00 Ferrous Sulfate (Feosol) 325 mg DAILYWBKFT PO Last administered on 12/16/18 16 :57; Start 12/14/18 at 17:00 Losartan Potassium (Cozaar) 100 mg DAILY PO Last administered on 12/16/18 16: 58; Start 12/14/18 at 17:00 Memantine (Namenda) 10 mg BID PO Last administered on 12/16/18 21:31; Start at 21:00 Pantoprazole Sodium (Protonix) 40 mg DAILYAC PO Last administered on 12/16/18 05:43; Start 12/14/18 at 17:00 Ropinirole HCl (Requip) 3 mg QHS PO Last administered on 12/16/18 21:31; Start 12/14/18 at 21:00 Spironolactone (Aldactone) 25 mg DAILY PO Last administered on 12/16/18 16:58 ; Start 12/14/18 at 17:00 Albuterol Sulfate (Ventolin Neb Soln) 2.5 mg Q4HRS NEB Last administered on 12/17at 07:28; Start 12/14/18 at 20:00 Sodium Chloride 1,000 ml @ 80 mls/hr [id number] IV Last administered on at 17:00; Start 12/14/18 at 17:15 Acetaminophen (Tylenol) 650 mg PRN Q6HRS PRN PO Pain Last administered on at 17:11; Start 12/15/18 at 04:45 Polyethylene Glycol (miraLAX Powder BULK BOTTLE) 238 gm 1X ONCE PO Last administered on 12/15/18at 12:48; Start 12/15/18 at 12:00; Stop 12/15/18 at 12:01 ; Status DC Ondansetron HCl (Zofran) 4 mg PRN Q6HRS PRN IV NAUSEA/VOMITING; Start 12/16/18 at 07:00; Stop 12/17/18 at 06:59; Status DC Fentanyl Citrate (Fentanyl 2ml Vial) 25 mcg PRN Q5MIN PRN IV MILD PAIN; Start 12/16/18 at 07:00; Stop 12/16/18 at 16:33; Status DC Fentanyl Citrate (Fentanyl 2ml Vial) 50 mcg PRN Q5MIN PRN IV MODERATE TO SEVERE PAIN; Start 12/16/18 at 07:00; Stop 12/16/18 at 16:33; Status DC Morphine Sulfate (Morphine Sulfate) 1 mg PRN Q10MIN PRN IV SEVERE PAIN; Start 12/16/18 at 07:00; Stop 12/17/18 at 06:59; Status DC Ringer's Solution 1,000 ml @ 30 mls/hr Q24H IV Last administered on 12/16/18at 13:00; Start 12/16/18 at 07:00; Stop 12/16/18 at 18:59; Status DC Lidocaine HCl (Xylocaine-Mpf 1% 2ml Vial) 2 ml PRN 1X PRN ID IV START; Start at 07:00; Stop 12/17/18 at 06:59; Status DC Hydromorphone HCl (Dilaudid) 0.5 mg PRN Q10MIN PRN IV SEV PAIN, Second choice; Start 12/16/18 at 07:00; Stop 12/17/18 at 06:59; Status DC Prochlorperazine Edisylate (Compazine) 5 mg PACU PRN PRN IV NAUSEA, MRX1; Start 12/16/18 at 07:00; Stop 12/17/18 at 06:59; Status DC Midazolam HCl (Versed) 2 mg PRN 1X PRN IV PRIOR TO PROCEDURE; Start 12/16/18 at 07:15; Stop 12/17/18 at 07:14; Status DC Fentanyl Citrate (Fentanyl 2ml Vial) 25 mcg PRN Q5MIN PRN IV X 2 DOSES FOR PAIN ; Start 12/16/18 at 07:15; Stop 12/16/18 at 16:33; Status DC Fentanyl Citrate (Fentanyl 2ml Vial) 50 mcg PRN Q5MIN PRN IV X 2 DOSES FOR PAIN ; Start 12/16/18 at 07:15; Stop 12/16/18 at 16:34; Status DC Ringer's Solution 1,000 ml @ 125 mls/hr Q8H IV ; Start 12/16/18 at 07:13; Stop 12/16/18 at 19:12; Status DC Lidocaine HCl (Xylocaine-Mpf 1% 2ml Vial) 2 ml 1X PRN PRN ID IV START; Start at 07:15; Stop 12/17/18 at 07:14; Status DC Propofol 40 ml @ As Directed STK-MED ONCE IV ; Start 12/16/18 at 13:58; Stop at 14:00; Status DC Prochlorperazine Edisylate (Compazine) 5 mg PACU PRN PRN IV NAUSEA, MRX1; Start 12/17/18 at 07:00; Stop 12/18/18 at 06:59 Hydromorphone HCl (Dilaudid) 0.5 mg PRN Q10MIN PRN IV SEV PAIN, Second choice; Start 12/17/18 at 07:00; Stop 12/18/18 at 06:59 Lidocaine HCl (Xylocaine-Mpf 1% 2ml Vial) 2 ml PRN 1X PRN ID IV START; Start at 07:00; Stop 12/18/18 at 06:59 Ringer's Solution 1,000 ml @ 30 mls/hr Q24H IV Last administered on 12/17/18at 10:34; Start 12/17/18 at 07:00; Stop 12/17/18 at 18:59 Morphine Sulfate (Morphine Sulfate) 1 mg PRN Q10MIN PRN IV SEVERE PAIN; Start 12/17/18 at 07:00; Stop 12/18/18 at 06:59 Fentanyl Citrate (Fentanyl 2ml Vial) 50 mcg PRN Q5MIN PRN IV MODERATE TO SEVERE PAIN Last administered on 12/17/18at 10:35; Start 12/17/18 at 07:00; Stop at 06:59 Fentanyl Citrate (Fentanyl 2ml Vial) 25 mcg PRN Q5MIN PRN IV MILD PAIN; Start 12/17/18 at 07:00; Stop 12/18/18 at 06:59 Ondansetron HCl (Zofran) 4 mg PRN Q6HRS PRN IV NAUSEA/VOMITING; Start 12/17/18 at 07:00; Stop 12/18/18 at 06:59 Propofol 20 ml @ As Directed STK-MED ONCE IV ; Start 12/17/18 at 07:21; Stop 12/17 at 07:23; Status DC Albuterol Sulfate (Ventolin Neb Soln) 2.5 mg 1X ONCE NEB ; Start 12/17/18 at 07: 30; Stop 12/17/18 at 07:31; Status DC Lidocaine HCl (Lidocaine Pf 2% Vial) 5 ml STK-MED ONCE .ROUTE ; Start 12/17/18 at 07:21; Stop 12/17/18 at 07:23; Status DC Succinylcholine Chloride (Anectine) 200 mg STK-MED ONCE .ROUTE ; Start 12/17/18 at 07:21; Stop 12/17/18 at 07:23; Status DC Rocuronium [place] (Zemuron) 50 mg STK-MED ONCE .ROUTE ; Start 12/17/18 at 07:21 ; Stop 12/17/18 at 07:23; Status DC Fentanyl Citrate (Fentanyl 2ml Vial) 100 mcg STK-MED ONCE .ROUTE ; Start at 07:21; Stop 12/17/18 at 07:24; Status DC Cefazolin Sodium/ Dextrose 50 ml @ 100 mls/hr 1X ONCE IV Last administered on 12/17/18at 08:07; Start 12/17/18 at 07:45; Stop 12/17/18 at 08:18; Status DC Bupivacaine HCl/ Epinephrine Bitart (Sensorcain-Mpf Epi 0.5%-1:[id number]) 30 ml STK -MED ONCE .ROUTE Last administered on 12/17/18at 08:34; Start 12/17/18 at 07:46; Stop 12/17/18 at 07:49; Status DC Neomycin/ Polymyxin/ Bacitracin (Triple Antibiotic Ointment) 1 pkt STK-MED ONCE TP Last administered on 12/17/18at 10:07; Start 12/17/18 at 07:46; Stop 12/17/18 at 07:49; Status DC Neomycin/ Polymyxin/ Bacitracin (Triple Antibiotic Ointment) 1 pkt STK-MED ONCE TP Last administered on 12/17/18at 10:07; Start 12/17/18 at 07:46; Stop 12/17/18 at 07:49; Status DC Neomycin/ Polymyxin/ Bacitracin (Triple Antibiotic Ointment) 1 pkt STK-MED ONCE TP ; Start 12/17/18 at 07:47; Stop 12/17/18 at 07:49; Status DC Dexamethasone Sodium Phosphate (Decadron) 20 mg STK-MED ONCE .ROUTE ; Start 12/17 at 07:54; Stop 12/17/18 at 07:56; Status DC Hydrocortisone Sodium Succinate (Solu-CORTEF) 100 mg STK-MED ONCE .ROUTE ; Start 12/17/18 at 07:54; Stop 12/17/18 at 07:56; Status DC Desflurane (Suprane) 90 ml STK-MED ONCE IH ; Start 12/17/18 at 07:54; Stop at 07:56; Status DC Neostigmine Methylsulfate (Bloxiverz) 10 mg STK-MED ONCE .ROUTE ; Start 12/17/18 at 08:21; Stop 12/17/18 at 08:24; Status DC Glycopyrrolate (Robinul) 1 mg STK-MED ONCE .ROUTE ; Start 12/17/18 at 08:21; Stop 12/17/18 at 08:24; Status DC Phenylephrine HCl (Bogdan-Synephrine Inj) 10 mg STK-MED ONCE .ROUTE ; Start at 08:23; Stop 12/17/18 at 08:26; Status DC Desflurane (Suprane) 60 ml STK-MED ONCE IH ; Start 12/17/18 at 09:23; Stop at 09:26; Status DC Bupivacaine HCl/ Epinephrine Bitart (Sensorcain-Mpf Epi 0.5%-1:[id number]) 30 ml STK -MED ONCE .ROUTE Last administered on 12/17/18at 10:06; Start 12/17/18 at 09:41; Stop 12/17/18 at 09:43; Status DC Morphine Sulfate (Morphine Sulfate) 2 mg PRN Q2HR PRN IV PAIN; Start 12/17/18 at 10:15 Ketorolac Tromethamine (Toradol 15mg Vial) 15 mg Q6HRS IV ; Start 12/17/18 at 12: 00; Stop 12/18/18 at 10:00 Active Scripts Active Chlorhexidine Gluconate 473 Ml Mouthwash 473 Ml MM BID 7 Days Vitamin C (Ascorbate Calcium) 500 Mg Tablet 500 Mg PO DAILY 30 Days Slow Release Iron (Ferrous Sulfate) 250 Mg Tablet.er 250 Mg PO DAILY 30 Days Protonix (Pantoprazole Sodium) 40 Mg Granpkt.dr 40 Mg PO DAILY 30 Days Reported Metformin Hcl Er (Metformin Hcl) 500 Mg Tab.er.24h 1 Tab PO DAILY Namenda (Memantine Hcl) 10 Mg Tablet 1 Tab PO BID Losartan Potassium 100 Mg Tablet 100 Mg PO DAILY Spironolactone 25 Mg Tablet 1 Tab PO DAILY Ventolin Hfa Inhaler (Albuterol Sulfate) 18 Gm Hfa.aer.ad 2 Puff INH Q4HRS Cymbalta (Duloxetine Hcl) 20 Mg Capsule.dr 90 Mg PO DAILY Requip (Ropinirole Hcl) 1 Mg Tablet 3 Mg PO DAILY Amlodipine Besylate 10 Mg Tablet 10 Mg PO DAILY Vitals/I & O Vital Sign - Last 24 Hours 12/16/18 12/16/18 12/16/18 12/16/18 11:53 12:53 14:43 14:58 Temp 97.9 97.4 97.9 97.4 Pulse 76 84 68 Resp 16 16 16 B/P (MAP) 128/64 154/78 Pulse Ox 96 95 95 O2 Delivery Room Air Room Air Room Air 12/16/18 12/16/18 12/16/1819 15:00 15:13 16:10 16:17 Temp 98.8 98.8 Pulse 96 65 79 Resp 18 16 B/P (MAP) 129/90 (103) 154/78 129/80 (96) Pulse Ox 97 95 O2 Delivery Room Air Room Air Room Air 12/16/18 12/16/18 12/16/18 12/16/18 16:18 16:58 17:06 19:00 Temp 98.4 98.4 Pulse 79 79 69 Resp 20 B/P (MAP) 129/80 129/80 150/80 (103) Pulse Ox 98 98 O2 Delivery Room Air Nasal Cannula 12/16/18 12/16/18 12/16/18 12/17/18 19:22 20:00 23:05 03:05 Temp 98.6 98.3 98.6 98.3 Pulse 64 87 Resp 20 20 B/P (MAP) 155/80 (105) 150/92 (111) Pulse Ox 98 98 93 O2 Delivery Nasal Cannula Room Air Nasal Cannula Nasal Cannula O2 Flow Rate 2.0 12/17/18 12/17/18 12/17/18 12/17/18 03:24 07:07 07:31 10:03 Temp 98.6 97.2 98.6 97.2 Pulse 84 81 88 Resp 22 B/P (MAP) 139/87 (104) 157/84 180/99 Pulse Ox 93 100 O2 Delivery Room Air Room Air Simple Mask O2 Flow Rate 10 12/17/18 12/17/18 12/17/18 12/17/18 10:03 10:18 10:33 10:35 Pulse 84 79 Resp 22 B/P (MAP) 165/85 156/75 Pulse Ox 100 100 99 O2 Delivery Mask Simple Mask Simple Mask Simple Mask O2 Flow Rate 10 10 10 10.0 12/17/18 12/17/18 10:48 11:03 Pulse 81 82 Resp 22 B/P (MAP) 169/79 147/80 Pulse Ox 100 100 O2 Delivery Simple Mask Simple Mask O2 Flow Rate 10 10 Intake and Output 12/16/18 12/16/18 12/17/18 15:01 23:01 07:01 Intake Total 1050 ml Balance 1050 ml DAYLIN MILLER MD Dec 17, 2018 11:09
[2018-12-17] MEDS: KETOROLAC 15 MG/ML VIAL. IV SCH ×2 (11:57→17:45)
[2018-12-17] MEDS: MORPHINE SULFATE 4 MG/ML VIAL. IV PRN ×3 (13:35→19:01)
[2018-12-17] MEDS: rOPINIRole 1 MG TABLET. PO SCH (21:05)
[2018-12-18] MEDS: IV NORMAL SALINE 1000ML BAG 1,000 ML IV SCH ×2 (00:27→17:54)
[2018-12-18] MEDS: KETOROLAC 15 MG/ML VIAL. IV SCH ×2 (00:27→05:39)
[2018-12-18 03:00] VITALS: BP 129/76
[2018-12-18 04:25] LABS: BASO % 0 % (0-3); EOS % 0 % (0-3); HEMATOCRIT 24.2 % (36.0-47.0); HEMOGLOBIN 7.6 g/dL (12.0-15.5); LYMPH # 0.9 x10^3/uL (1.0-4.8); LYMPH % 5 % (24-48); MEAN CORPUSCULAR HEMOGLOBIN 25 pg (25-35); MEAN CORPUSCULAR HGB CONC 32 g/dL (31-37); MEAN CORPUSCULAR VOLUME 78 fL (79-100); MONO # 1.2 x10^3/uL (0.0-1.1); MONO % 7 % (0-9); NEUT # 16.1 x10^3uL (1.8-7.7); NEUT % 88 % (31-73); PLATELET COUNT 247 x10^3/uL (140-400); RED CELL DISTRIBUTION WIDTH 23.5 % (11.5-14.5); WHITE BLOOD COUNT 18.2 x10^3/uL (4.0-11.0)
[2018-12-18 04:30] LABS: CALCIUM 9.1 mg/dL (8.5-10.1); CREATININE 1.2 mg/dL (0.6-1.0); GFR 53.1; POTASSIUM 4.3 mmol/L (3.5-5.1)
[2018-12-18] MEDS: PANTOPRAZOLE 40 MG TABLET.DR. PO SCH (05:40)
[2018-12-18 07:00] VITALS: BP 116/62
[2018-12-18] MEDS: ALBUTEROL SULFATE 2.5 MG/3 ML NEBU. NEB SCH ×5 (07:23→23:09)
[2018-12-18] MEDS: FERROUS SULFATE 325 MG TABLET. PO SCH (08:28)
[2018-12-18] MEDS: CHLORHEXIDINE 0.12% 15 ML MOUTHWASH. MM SCH ×2 (08:29→20:58)
[2018-12-18] MEDS: SPIRONOLACTONE 25 MG TABLET PO SCH (08:29)
[2018-12-18] MEDS: DULoxetine HCL 30 MG CAPSULE.DR PO SCH (08:31)
[2018-12-18] MEDS: LOSARTAN POTASSIUM 50 MG TABLET. PO SCH (08:31)
[2018-12-18] MEDS: ASCORBIC ACID 500 MG TABLET PO SCH (08:32)
[2018-12-18] MEDS: amLODIPine BESYLATE 10 MG TABLET PO SCH (08:32)
[2018-12-18] MEDS: MEMANTINE 10 MG TABLET. PO SCH ×2 (08:32→20:59)
[2018-12-18] MEDS: MORPHINE SULFATE 4 MG/ML VIAL. IV PRN ×3 (08:35→21:00)
[2018-12-18 09:10] LABS: % BANDS 6 % (0-9); % LYMPHS 7 % (24-48); % MONOS 5 % (0-10); % SEGS 82 % (35-66)
--- NOTE | 2018-12-18 09:10 | PDOC ---
ABRAHAM WEBER [employer] 12/18/18 0910: SURGICAL PROGRESS NOTE Subjective hungry some nausea with liquids, no emesis no flatus Vital Signs Vital Signs Date Time Temp Pulse Resp B/P (MAP) Pulse Ox O2 Delivery O2 Flow Rate FiO2 12/18/18 08:35 20 Room Air 12/18/18 08:32 71 129/76 12/18/18 07:24 96 2.0 12/18/18 07:00 97.7 97.7 I&O Intake and Output 12/18/18 07:01 Intake Total 2780 ml Output Total 584 ml Balance 2196 ml Intake Oral 1630 ml IV Total 1150 ml Output Urine Total 580 ml Estimated Blood Loss 4 ml General: Alert, Oriented X3, Cooperative, No acute distress Abdomen: Soft, Other (ND, dressings dry) Labs Laboratory Tests Test 12/16/18 11:15 12/16/18 16:13 12/16/18 20:26 12/17/18 12:08 Glucose (Fingerstick) 133 mg/dL (70-99) 116 mg/dL (70-99) 117 mg/dL (70-99) 164 mg/dL (70-99) Test 12/17/18 17:00 12/17/18 20:39 12/18/18 03:50 12/18/18 08:06 Glucose (Fingerstick) 177 mg/dL (70-99) 182 mg/dL (70-99) 162 mg/dL (70-99) White Blood Count 18.2 x10^3/uL (4.0-11.0) Red Blood Count 3.10 x10^6/uL (3.50-5.40) Hemoglobin 7.6 g/dL (12.0-15.5) Hematocrit 24.2 % (36.0-47.0) Mean Corpuscular Volume 78 fL (79-100) Mean Corpuscular Hemoglobin 25 pg (25-35) Mean Corpuscular Hemoglobin Concent 32 g/dL (31-37) Red Cell Distribution Width 23.5 % (11.5-14.5) Platelet Count 247 x10^3/uL (140-400) Neutrophils (%) (Auto) 88 % (31-73) Lymphocytes (%) (Auto) 5 % (24-48) Monocytes (%) (Auto) 7 % (0-9) Eosinophils (%) (Auto) 0 % (0-3) Basophils (%) (Auto) 0 % (0-3) Neutrophils # (Auto) 16.1 x10^3uL (1.8-7.7) Lymphocytes # (Auto) 0.9 x10^3/uL (1.0-4.8) Monocytes # (Auto) 1.2 x10^3/uL (0.0-1.1) Eosinophils # (Auto) 0.0 x10^3/uL (0.0-0.7) Basophils # (Auto) 0.0 x10^3/uL (0.0-0.2) Sodium Level 138 mmol/L (136-145) Potassium Level 4.3 mmol/L (3.5-5.1) Chloride Level 104 mmol/L (98-107) Carbon Dioxide Level 26 mmol/L (21-32) Anion Gap 8 (6-14) Blood Urea Nitrogen 16 mg/dL (7-20) Creatinine 1.2 mg/dL (0.6-1.0) Estimated GFR (Cockcroft-Gault) 53.1 Glucose Level 128 mg/dL (70-99) Calcium Level 9.1 mg/dL (8.5-10.1) Laboratory Tests Test 12/17/18 12:08 12/17/18 17:00 12/17/18 20:39 12/18/18 03:50 Glucose (Fingerstick) 164 mg/dL (70-99) 177 mg/dL (70-99) 182 mg/dL (70-99) White Blood Count 18.2 x10^3/uL (4.0-11.0) Red Blood Count 3.10 x10^6/uL (3.50-5.40) Hemoglobin 7.6 g/dL (12.0-15.5) Hematocrit 24.2 % (36.0-47.0) Mean Corpuscular Volume 78 fL (79-100) Mean Corpuscular Hemoglobin 25 pg (25-35) Mean Corpuscular Hemoglobin Concent 32 g/dL (31-37) Red Cell Distribution Width 23.5 % (11.5-14.5) Platelet Count 247 x10^3/uL (140-400) Neutrophils (%) (Auto) 88 % (31-73) Lymphocytes (%) (Auto) 5 % (24-48) Monocytes (%) (Auto) 7 % (0-9) Eosinophils (%) (Auto) 0 % (0-3) Basophils (%) (Auto) 0 % (0-3) Neutrophils # (Auto) 16.1 x10^3uL (1.8-7.7) Lymphocytes # (Auto) 0.9 x10^3/uL (1.0-4.8) Monocytes # (Auto) 1.2 x10^3/uL (0.0-1.1) Eosinophils # (Auto) 0.0 x10^3/uL (0.0-0.7) Basophils # (Auto) 0.0 x10^3/uL (0.0-0.2) Sodium Level 138 mmol/L (136-145) Potassium Level 4.3 mmol/L (3.5-5.1) Chloride Level 104 mmol/L (98-107) Carbon Dioxide Level 26 mmol/L (21-32) Anion Gap 8 (6-14) Blood Urea Nitrogen 16 mg/dL (7-20) Creatinine 1.2 mg/dL (0.6-1.0) Estimated GFR (Cockcroft-Gault) 53.1 Glucose Level 128 mg/dL (70-99) Calcium Level 9.1 mg/dL (8.5-10.1) Test 12/18/18 08:06 Glucose (Fingerstick) 162 mg/dL (70-99) Problem List s/p resection, hemorrhoidectomy clears, await better bowel function increase activity DAYLIN WEI MD 12/18/18 1054: SURGICAL PROGRESS NOTE Assessment/Plan Patient described pain at the anus has passed a small amount of flatus denies any nausea vomiting. Agree with Germania assessment and plan we'll hold on advancing diet until return of bowel function ABRAHAM WEBER APRN Dec 18, 2018 09:10 DAYLIN WEI MD Dec 18, 2018 10:54
[2018-12-18 09:11] LABS: ANISOCYTOSIS MOD; HYPOCHROMIA PRESENT; PLT ESTIMATE ADEQUATE (ADEQUATE); POLYCHROMASIA PRESENT
--- NOTE | 2018-12-18 10:02 | PDOC ---
PROGRESS NOTES History of Present Illness History of Present Illness VTE Prophylaxis Ordered VTE Prophylaxis Devices: Yes VTE Pharmacological Prophylaxi: Contraindicated Assessment/Plan Assessment/Plan Assessment/Plan Assessment/Plan Gi bleed acute ,Questionable GI bleed with anemia marked anemia POA Colonoscopy in 11/2017 showed diverticulosis, EGD 11/2018 showed non-erosive gastritis bleeding cecal ulcer surgical resection 12/17/18 POD # 1 Operative Note Operative Note Date: 12/17/2018 Preoperative diagnosis: GI bleed cecal ulceration by colonoscopy with active bleeding hemorrhoids Postoperative diagnosis: Same Procedure: Laparoscopic-assisted right colon resection and hemorrhoidectomy Surgeon: Jan Specimen: Right colon and hemorrhoids INCREASE ACTIVITY 12/18 CLEAR LIQ, NO inc in bowel fx yet, pain under fair control Vitals Vitals Vital Signs Date Time Temp Pulse Resp B/P (MAP) Pulse Ox O2 Delivery O2 Flow Rate FiO2 12/18/18 08:35 20 Room Air 12/18/18 08:32 71 129/76 12/18/18 07:24 96 2.0 12/18/18 07:00 97.7 97.7 Physical Exam General: Alert, Oriented X3, Cooperative, No acute distress Heart: Regular rate, Normal S1, Normal S2, No murmurs Lungs: Clear Abdomen: Soft, Other (ND, dressings dry) Extremities: No clubbing, No cyanosis, No edema Skin: No significant lesion Labs LABS Laboratory Tests Test 12/17/18 12:08 12/17/18 17:00 12/17/18 20:39 12/18/18 03:50 Glucose (Fingerstick) 164 mg/dL (70-99) 177 mg/dL (70-99) 182 mg/dL (70-99) White Blood Count 18.2 x10^3/uL (4.0-11.0) Red Blood Count 3.10 x10^6/uL (3.50-5.40) Hemoglobin 7.6 g/dL (12.0-15.5) Hematocrit 24.2 % (36.0-47.0) Mean Corpuscular Volume 78 fL (79-100) Mean Corpuscular Hemoglobin 25 pg (25-35) Mean Corpuscular Hemoglobin Concent 32 g/dL (31-37) Red Cell Distribution Width 23.5 % (11.5-14.5) Platelet Count 247 x10^3/uL (140-400) Neutrophils (%) (Auto) 88 % (31-73) Lymphocytes (%) (Auto) 5 % (24-48) Monocytes (%) (Auto) 7 % (0-9) Eosinophils (%) (Auto) 0 % (0-3) Basophils (%) (Auto) 0 % (0-3) Neutrophils # (Auto) 16.1 x10^3uL (1.8-7.7) Lymphocytes # (Auto) 0.9 x10^3/uL (1.0-4.8) Monocytes # (Auto) 1.2 x10^3/uL (0.0-1.1) Eosinophils # (Auto) 0.0 x10^3/uL (0.0-0.7) Basophils # (Auto) 0.0 x10^3/uL (0.0-0.2) Segmented Neutrophils % 82 % (35-66) Band Neutrophils % 6 % (0-9) Lymphocytes % 7 % (24-48) Monocytes % 5 % (0-10) Platelet Estimate Adequate (ADEQUATE) Large Platelets Present Polychromasia Present Hypochromasia Present Anisocytosis Mod Sodium Level 138 mmol/L (136-145) Potassium Level 4.3 mmol/L (3.5-5.1) Chloride Level 104 mmol/L (98-107) Carbon Dioxide Level 26 mmol/L (21-32) Anion Gap 8 (6-14) Blood Urea Nitrogen 16 mg/dL (7-20) Creatinine 1.2 mg/dL (0.6-1.0) Estimated GFR (Cockcroft-Gault) 53.1 Glucose Level 128 mg/dL (70-99) Calcium Level 9.1 mg/dL (8.5-10.1) Test 12/18/18 08:06 Glucose (Fingerstick) 162 mg/dL (70-99) Comment Review of Relevant I have reviewed the following items abdifatah (where applicable) has been applied. Labs Laboratory Tests Test 12/16/18 11:15 12/16/18 16:13 12/16/18 20:26 12/17/18 12:08 Glucose (Fingerstick) 133 mg/dL (70-99) 116 mg/dL (70-99) 117 mg/dL (70-99) 164 mg/dL (70-99) Test 12/17/18 17:00 12/17/18 20:39 12/18/18 03:50 12/18/18 08:06 Glucose (Fingerstick) 177 mg/dL (70-99) 182 mg/dL (70-99) 162 mg/dL (70-99) White Blood Count 18.2 x10^3/uL (4.0-11.0) Red Blood Count 3.10 x10^6/uL (3.50-5.40) Hemoglobin 7.6 g/dL (12.0-15.5) Hematocrit 24.2 % (36.0-47.0) Mean Corpuscular Volume 78 fL (79-100) Mean Corpuscular Hemoglobin 25 pg (25-35) Mean Corpuscular Hemoglobin Concent 32 g/dL (31-37) Red Cell Distribution Width 23.5 % (11.5-14.5) Platelet Count 247 x10^3/uL (140-400) Neutrophils (%) (Auto) 88 % (31-73) Lymphocytes (%) (Auto) 5 % (24-48) Monocytes (%) (Auto) 7 % (0-9) Eosinophils (%) (Auto) 0 % (0-3) Basophils (%) (Auto) 0 % (0-3) Neutrophils # (Auto) 16.1 x10^3uL (1.8-7.7) Lymphocytes # (Auto) 0.9 x10^3/uL (1.0-4.8) Monocytes # (Auto) 1.2 x10^3/uL (0.0-1.1) Eosinophils # (Auto) 0.0 x10^3/uL (0.0-0.7) Basophils # (Auto) 0.0 x10^3/uL (0.0-0.2) Segmented Neutrophils % 82 % (35-66) Band Neutrophils % 6 % (0-9) Lymphocytes % 7 % (24-48) Monocytes % 5 % (0-10) Platelet Estimate Adequate (ADEQUATE) Large Platelets Present Polychromasia Present Hypochromasia Present Anisocytosis Mod Sodium Level 138 mmol/L (136-145) Potassium Level 4.3 mmol/L (3.5-5.1) Chloride Level 104 mmol/L (98-107) Carbon Dioxide Level 26 mmol/L (21-32) Anion Gap 8 (6-14) Blood Urea Nitrogen 16 mg/dL (7-20) Creatinine 1.2 mg/dL (0.6-1.0) Estimated GFR (Cockcroft-Gault) 53.1 Glucose Level 128 mg/dL (70-99) Calcium Level 9.1 mg/dL (8.5-10.1) Laboratory Tests Test 12/17/18 12:08 12/17/18 17:00 12/17/18 20:39 12/18/18 03:50 Glucose (Fingerstick) 164 mg/dL (70-99) 177 mg/dL (70-99) 182 mg/dL (70-99) White Blood Count 18.2 x10^3/uL (4.0-11.0) Red Blood Count 3.10 x10^6/uL (3.50-5.40) Hemoglobin 7.6 g/dL (12.0-15.5) Hematocrit 24.2 % (36.0-47.0) Mean Corpuscular Volume 78 fL (79-100) Mean Corpuscular Hemoglobin 25 pg (25-35) Mean Corpuscular Hemoglobin Concent 32 g/dL (31-37) Red Cell Distribution Width 23.5 % (11.5-14.5) Platelet Count 247 x10^3/uL (140-400) Neutrophils (%) (Auto) 88 % (31-73) Lymphocytes (%) (Auto) 5 % (24-48) Monocytes (%) (Auto) 7 % (0-9) Eosinophils (%) (Auto) 0 % (0-3) Basophils (%) (Auto) 0 % (0-3) Neutrophils # (Auto) 16.1 x10^3uL (1.8-7.7) Lymphocytes # (Auto) 0.9 x10^3/uL (1.0-4.8) Monocytes # (Auto) 1.2 x10^3/uL (0.0-1.1) Eosinophils # (Auto) 0.0 x10^3/uL (0.0-0.7) Basophils # (Auto) 0.0 x10^3/uL (0.0-0.2) Segmented Neutrophils % 82 % (35-66) Band Neutrophils % 6 % (0-9) Lymphocytes % 7 % (24-48) Monocytes % 5 % (0-10) Platelet Estimate Adequate (ADEQUATE) Large Platelets Present Polychromasia Present Hypochromasia Present Anisocytosis Mod Sodium Level 138 mmol/L (136-145) Potassium Level 4.3 mmol/L (3.5-5.1) Chloride Level 104 mmol/L (98-107) Carbon Dioxide Level 26 mmol/L (21-32) Anion Gap 8 (6-14) Blood Urea Nitrogen 16 mg/dL (7-20) Creatinine 1.2 mg/dL (0.6-1.0) Estimated GFR (Cockcroft-Gault) 53.1 Glucose Level 128 mg/dL (70-99) Calcium Level 9.1 mg/dL (8.5-10.1) Test 12/18/18 08:06 Glucose (Fingerstick) 162 mg/dL (70-99) Medications Current Medications Sodium Chloride 1,000 ml @ 1,000 mls/hr 1X ONCE IV Last administered on 13:52; Start 12/14/18 at 13:30; Stop 12/14/18 at 14:29; Status DC Amlodipine Besylate (Norvasc) 10 mg DAILY PO Last administered on 12/18/18 08: 32; Start 12/14/18 at 17:00 Chlorhexidine Gluconate (Peridex) 15 ml BID MM Last administered on 12/18/18 08 :29; Start 12/14/18 at 21:00 Non-Formulary Medication (Albuterol Sulfate (Ventolin Hfa Inhaler)) 2 puff Q4HRS INH ; Start 12/14/18 at 20:00; Status UNV Ascorbic Acid (Vitamin C) 500 mg DAILY PO Last administered on 12/18/18 08:32; Start 12/14/18 at 17:00 Duloxetine HCl (Cymbalta) 90 mg DAILY PO Last administered on 12/18/18 08:31; Start 12/14/18 at 17:00 Ferrous Sulfate (Feosol) 325 mg [id number] PO Last administered on 12/18/18 08: 28; Start 12/14/18 at 17:00 Losartan Potassium (Cozaar) 100 mg DAILY PO Last administered on 12/18/18 08:31 ; Start 12/14/18 at 17:00 Memantine (Namenda) 10 mg BID PO Last administered on 12/18/18 08:32; Start at 21:00 Pantoprazole Sodium (Protonix) 40 mg DAILYAC PO Last administered on 12/18/18at 05:40; Start 12/14/18 at 17:00 Ropinirole HCl (Requip) 3 mg QHS PO Last administered on 12/17/18at 21:05; Start 12/14/18 at 21:00 Spironolactone (Aldactone) 25 mg DAILY PO Last administered on 12/18/18 08:29; Start 12/14/18 at 17:00 Albuterol Sulfate (Ventolin Neb Soln) 2.5 mg Q4HRS NEB Last administered on 12/18 07:23; Start 12/14/18 at 20:00 Sodium Chloride 1,000 ml @ 80 mls/hr [id number] IV Last administered on 12/18/18 00:27; Start 12/14/18 at 17:15 Acetaminophen (Tylenol) 650 mg PRN Q6HRS PRN PO Pain Last administered on at 17:11; Start 12/15/18 at 04:45 Polyethylene Glycol (miraLAX Powder BULK BOTTLE) 238 gm 1X ONCE PO Last administered on 12/15/18at 12:48; Start 12/15/18 at 12:00; Stop 12/15/18 at 12:01 ; Status DC Ondansetron HCl (Zofran) 4 mg PRN Q6HRS PRN IV NAUSEA/VOMITING; Start 12/16/18 at 07:00; Stop 12/17/18 at 06:59; Status DC Fentanyl Citrate (Fentanyl 2ml Vial) 25 mcg PRN Q5MIN PRN IV MILD PAIN; Start 12/16/18 at 07:00; Stop 12/16/18 at 16:33; Status DC Fentanyl Citrate (Fentanyl 2ml Vial) 50 mcg PRN Q5MIN PRN IV MODERATE TO SEVERE PAIN; Start 12/16/18 at 07:00; Stop 12/16/18 at 16:33; Status DC Morphine Sulfate (Morphine Sulfate) 1 mg PRN Q10MIN PRN IV SEVERE PAIN; Start 12/16/18 at 07:00; Stop 12/17/18 at 06:59; Status DC Ringer's Solution 1,000 ml @ 30 mls/hr Q24H IV Last administered on 12/16/18at 13:00; Start 12/16/18 at 07:00; Stop 12/16/18 at 18:59; Status DC Lidocaine HCl (Xylocaine-Mpf 1% 2ml Vial) 2 ml PRN 1X PRN ID IV START; Start at 07:00; Stop 12/17/18 at 06:59; Status DC Hydromorphone HCl (Dilaudid) 0.5 mg PRN Q10MIN PRN IV SEV PAIN, Second choice; Start 12/16/18 at 07:00; Stop 12/17/18 at 06:59; Status DC Prochlorperazine Edisylate (Compazine) 5 mg PACU PRN PRN IV NAUSEA, MRX1; Start 12/16/18 at 07:00; Stop 12/17/18 at 06:59; Status DC Midazolam HCl (Versed) 2 mg PRN 1X PRN IV PRIOR TO PROCEDURE; Start 12/16/18 at 07:15; Stop 12/17/18 at 07:14; Status DC Fentanyl Citrate (Fentanyl 2ml Vial) 25 mcg PRN Q5MIN PRN IV X 2 DOSES FOR PAIN ; Start 12/16/18 at 07:15; Stop 12/16/18 at 16:33; Status DC Fentanyl Citrate (Fentanyl 2ml Vial) 50 mcg PRN Q5MIN PRN IV X 2 DOSES FOR PAIN ; Start 12/16/18 at 07:15; Stop 12/16/18 at 16:34; Status DC Ringer's Solution 1,000 ml @ 125 mls/hr Q8H IV ; Start 12/16/18 at 07:13; Stop 12/16/18 at 19:12; Status DC Lidocaine HCl (Xylocaine-Mpf 1% 2ml Vial) 2 ml 1X PRN PRN ID IV START; Start at 07:15; Stop 12/17/18 at 07:14; Status DC Propofol 40 ml @ As Directed STK-MED ONCE IV ; Start 12/16/18 at 13:58; Stop at 14:00; Status DC Prochlorperazine Edisylate (Compazine) 5 mg PACU PRN PRN IV NAUSEA, MRX1; Start 12/17/18 at 07:00; Stop 12/18/18 at 06:59; Status DC Hydromorphone HCl (Dilaudid) 0.5 mg PRN Q10MIN PRN IV SEV PAIN, Second choice; Start 12/17/18 at 07:00; Stop 12/18/18 at 06:59; Status DC Lidocaine HCl (Xylocaine-Mpf 1% 2ml Vial) 2 ml PRN 1X PRN ID IV START; Start at 07:00; Stop 12/18/18 at 06:59; Status DC Ringer's Solution 1,000 ml @ 30 mls/hr Q24H IV Last administered on 12/17/18at 10:34; Start 12/17/18 at 07:00; Stop 12/17/18 at 18:59; Status DC Morphine Sulfate (Morphine Sulfate) 1 mg PRN Q10MIN PRN IV SEVERE PAIN; Start 12/17/18 at 07:00; Stop 12/18/18 at 06:59; Status DC Fentanyl Citrate (Fentanyl 2ml Vial) 50 mcg PRN Q5MIN PRN IV MODERATE TO SEVERE PAIN Last administered on 12/17/18at 11:13; Start 12/17/18 at 07:00; Stop at 06:59; Status DC Fentanyl Citrate (Fentanyl 2ml Vial) 25 mcg PRN Q5MIN PRN IV MILD PAIN; Start 12/17/18 at 07:00; Stop 12/18/18 at 06:59; Status DC Ondansetron HCl (Zofran) 4 mg PRN Q6HRS PRN IV NAUSEA/VOMITING; Start 12/17/18 at 07:00; Stop 12/18/18 at 06:59; Status DC Propofol 20 ml @ As Directed STK-MED ONCE IV ; Start 12/17/18 at 07:21; Stop 12/17 at 07:23; Status DC Albuterol Sulfate (Ventolin Neb Soln) 2.5 mg 1X ONCE NEB ; Start 12/17/18 at 07: 30; Stop 12/17/18 at 07:31; Status DC Lidocaine HCl (Lidocaine Pf 2% Vial) 5 ml STK-MED ONCE .ROUTE ; Start 12/17/18 at 07:21; Stop 12/17/18 at 07:23; Status DC Succinylcholine Chloride (Anectine) 200 mg STK-MED ONCE .ROUTE ; Start 12/17/18 at 07:21; Stop 12/17/18 at 07:23; Status DC Rocuronium Forrest (Zemuron) 50 mg STK-MED ONCE .ROUTE ; Start 12/17/18 at 07:21 ; Stop 12/17/18 at 07:23; Status DC Fentanyl Citrate (Fentanyl 2ml Vial) 100 mcg STK-MED ONCE .ROUTE ; Start at 07:21; Stop 12/17/18 at 07:24; Status DC Cefazolin Sodium/ Dextrose 50 ml @ 100 mls/hr 1X ONCE IV Last administered on 12/17/18at 08:07; Start 12/17/18 at 07:45; Stop 12/17/18 at 08:18; Status DC Bupivacaine HCl/ Epinephrine Bitart (Sensorcain-Mpf Epi 0.5%-1:[id number]) 30 ml STK -MED ONCE .ROUTE Last administered on 12/17/18at 08:34; Start 12/17/18 at 07:46; Stop 12/17/18 at 07:49; Status DC Neomycin/ Polymyxin/ Bacitracin (Triple Antibiotic Ointment) 1 pkt STK-MED ONCE TP Last administered on 12/17/18at 10:07; Start 12/17/18 at 07:46; Stop 12/17/18 at 07:49; Status DC Neomycin/ Polymyxin/ Bacitracin (Triple Antibiotic Ointment) 1 pkt STK-MED ONCE TP Last administered on 12/17/18at 10:07; Start 12/17/18 at 07:46; Stop 12/17/18 at 07:49; Status DC Neomycin/ Polymyxin/ Bacitracin (Triple Antibiotic Ointment) 1 pkt STK-MED ONCE TP ; Start 12/17/18 at 07:47; Stop 12/17/18 at 07:49; Status DC Dexamethasone Sodium Phosphate (Decadron) 20 mg STK-MED ONCE .ROUTE ; Start 12/17 at 07:54; Stop 12/17/18 at 07:56; Status DC Hydrocortisone Sodium Succinate (Solu-CORTEF) 100 mg STK-MED ONCE .ROUTE ; Start 12/17/18 at 07:54; Stop 12/17/18 at 07:56; Status DC Desflurane (Suprane) 90 ml STK-MED ONCE IH ; Start 12/17/18 at 07:54; Stop at 07:56; Status DC Neostigmine Methylsulfate (Bloxiverz) 10 mg STK-MED ONCE .ROUTE ; Start 12/17/18 at 08:21; Stop 12/17/18 at 08:24; Status DC Glycopyrrolate (Robinul) 1 mg STK-MED ONCE .ROUTE ; Start 12/17/18 at 08:21; Stop 12/17/18 at 08:24; Status DC Phenylephrine HCl (Bogdan-Synephrine Inj) 10 mg STK-MED ONCE .ROUTE ; Start at 08:23; Stop 12/17/18 at 08:26; Status DC Desflurane (Suprane) 60 ml STK-MED ONCE IH ; Start 12/17/18 at 09:23; Stop at 09:26; Status DC Bupivacaine HCl/ Epinephrine Bitart (Sensorcain-Mpf Epi 0.5%-1:[id number]) 30 ml STK -MED ONCE .ROUTE Last administered on 12/17/18at 10:06; Start 12/17/18 at 09:41; Stop 12/17/18 at 09:43; Status DC Morphine Sulfate (Morphine Sulfate) 2 mg PRN Q2HR PRN IV PAIN Last administered on 12/18/18at 08:35; Start 12/17/18 at 10:15 Ketorolac Tromethamine (Toradol 15mg Vial) 15 mg Q6HRS IV Last administered on 12/18/18at 05:39; Start 12/17/18 at 12:00; Stop 12/18/18 at 10:00; Status DC Artificial Tears (Artificial Tears) 1 drop PRN Q15MIN PRN OU DRY EYE; Start 12/18/18 at 08:00 Active Scripts Active Chlorhexidine Gluconate 473 Ml Mouthwash 473 Ml MM BID 7 Days Vitamin C (Ascorbate Calcium) 500 Mg Tablet 500 Mg PO DAILY 30 Days Slow Release Iron (Ferrous Sulfate) 250 Mg Tablet.er 250 Mg PO DAILY 30 Days Protonix (Pantoprazole Sodium) 40 Mg Granpkt.dr 40 Mg PO DAILY 30 Days Reported Metformin Hcl Er (Metformin Hcl) 500 Mg Tab.er.24h 1 Tab PO DAILY Namenda (Memantine Hcl) 10 Mg Tablet 1 Tab PO BID Losartan Potassium 100 Mg Tablet 100 Mg PO DAILY Spironolactone 25 Mg Tablet 1 Tab PO DAILY Ventolin Hfa Inhaler (Albuterol Sulfate) 18 Gm Hfa.aer.ad 2 Puff INH Q4HRS Cymbalta (Duloxetine Hcl) 20 Mg Capsule.dr 90 Mg PO DAILY Requip (Ropinirole Hcl) 1 Mg Tablet 3 Mg PO DAILY Amlodipine Besylate 10 Mg Tablet 10 Mg PO DAILY Vitals/I & O Vital Sign - Last 24 Hours 12/17/18 12/17/18 12/17/18 12/17/18 10:03 10:03 10:18 10:33 Temp 97.2 97.2 Pulse 88 84 79 Resp 22 B/P (MAP) 180/99 165/85 156/75 Pulse Ox 100 100 100 O2 Delivery Simple Mask Mask Simple Mask Simple Mask O2 Flow Rate 10 10 10 10 12/17/18 12/17/18 12/17/18 12/17/18 10:35 10:48 11:03 11:13 Pulse 81 82 Resp 22 22 B/P (MAP) 169/79 147/80 Pulse Ox 99 100 100 O2 Delivery Simple Mask Simple Mask Simple Mask Nasal Cannula O2 Flow Rate 10.0 10 10 2.0 12/17/18 12/17/18 12/17/18 12/17/18 11:18 11:29 11:33 11:45 Temp 98.3 98.3 Pulse 80 65 Resp 22 20 B/P (MAP) 147/80 147/68 Pulse Ox 100 100 100 O2 Delivery Nasal Cannula Nasal Cannula Nasal Cannula Nasal Cannula O2 Flow Rate 2 2.0 2 2 12/17/18 12/17/18 12/17/18 12/17/18 11:53 11:57 12:07 12:22 Pulse 90 84 91 B/P (MAP) 129/74 (92) 140/77 (98) 130/85 (100) Pulse Ox 90 92 97 99 O2 Delivery Nasal Cannula O2 Flow Rate 2.0 12/17/18 12/17/18 12/17/18 12/17/18 12:37 12:52 13:22 13:35 Pulse 91 86 B/P (MAP) 138/82 (100) 128/83 (98) 124/79 (94) Pulse Ox 100 O2 Delivery Nasal Cannula O2 Flow Rate 2.0 12/17/18 12/17/18 12/17/18 12/17/18 13:52 14:30 14:32 14:53 Pulse 84 77 95 B/P (MAP) 125/79 (94) 130/82 (98) 136/85 (102) O2 Flow Rate 2.0 12/17/18 12/17/18 12/17/18 12/17/18 15:00 15:40 15:53 16:01 Temp 97.9 97.9 Pulse 84 89 Resp 16 B/P (MAP) 130/82 (98) 137/81 (99) Pulse Ox 98 100 O2 Delivery Room Air Room Air Nasal Cannula O2 Flow Rate 2.0 2.0 12/17/18 12/17/18 12/17/18 12/17/18 19:00 19:01 19:31 20:20 Temp 98.5 98.5 Pulse 67 Resp 18 B/P (MAP) 114/67 (83) Pulse Ox 99 O2 Delivery Nasal Cannula Nasal Cannula Nasal Cannula Nasal Cannula O2 Flow Rate 2.0 2.0 2.0 12/17/18 12/17/18 12/18/18 12/18/18 20:27 23:00 03:00 07:00 Temp 98.8 99.0 97.7 98.8 99.0 97.7 Pulse 74 71 84 Resp 18 18 16 B/P (MAP) 124/69 (87) 129/76 (93) 116/62 (80) Pulse Ox 98 98 98 91 O2 Delivery Nasal Cannula Nasal Cannula Nasal Cannula Room Air O2 Flow Rate 2.0 2.0 2.0 12/18/18 12/18/18 12/18/18 12/18/18 07:24 08:31 08:32 08:35 Pulse 71 71 Resp 20 B/P (MAP) 129/76 129/76 Pulse Ox 96 O2 Delivery Nasal Cannula Room Air O2 Flow Rate 2.0 Intake and Output 12/17/18 12/17/18 12/18/18 15:01 23:01 07:01 Intake Total 1150 ml 900 ml 730 ml Output Total 134 ml 300 ml 150 ml Balance 1016 ml 600 ml 580 ml DAYLIN MILLER MD Dec 18, 2018 10:02
[2018-12-18 11:00] VITALS: BP 121/64
[2018-12-18] MEDS: DOCUSATE SODIUM 100 MG CAPSULE. PO SCH (13:16)
[2018-12-18] MEDS: BENZOCAINE/MENTHOL LOZENGE. PO PRN (14:03)
[2018-12-18 15:00] VITALS: BP 125/66
--- NOTE | 2018-12-18 16:36 | NUR ---
09 Notified surgical COAL TRIMMER of elevated WBC's
[2018-12-18 19:00] VITALS: BP 133/73
[2018-12-18] MEDS: rOPINIRole 1 MG TABLET. PO SCH (20:59)
[2018-12-18 23:00] VITALS: BP 126/76
[2018-12-19 03:00] VITALS: BP 116/70
[2018-12-19] MEDS: ALBUTEROL SULFATE 2.5 MG/3 ML NEBU. NEB SCH ×5 (03:21→21:40)
[2018-12-19 04:34] LABS: BASO % 0 % (0-3); EOS % 0 % (0-3); HEMATOCRIT 23.5 % (36.0-47.0); HEMOGLOBIN 7.5 g/dL (12.0-15.5); LYMPH # 1.2 x10^3/uL (1.0-4.8); LYMPH % 8 % (24-48); MEAN CORPUSCULAR HEMOGLOBIN 25 pg (25-35); MEAN CORPUSCULAR HGB CONC 32 g/dL (31-37); MEAN CORPUSCULAR VOLUME 78 fL (79-100); MONO # 1.1 x10^3/uL (0.0-1.1); MONO % 7 % (0-9); NEUT # 12.8 x10^3uL (1.8-7.7); NEUT % 85 % (31-73); PLATELET COUNT 202 x10^3/uL (140-400); RED BLOOD COUNT 3.03 x10^6/uL (3.50-5.40); RED CELL DISTRIBUTION WIDTH 23.8 % (11.5-14.5); WHITE BLOOD COUNT 15.1 x10^3/uL (4.0-11.0)
[2018-12-19] MEDS: MORPHINE SULFATE 4 MG/ML VIAL. IV PRN ×5 (04:41→19:35)
[2018-12-19 04:55] LABS: CREATININE 0.8 mg/dL (0.6-1.0); GFR 84.8; POTASSIUM 3.8 mmol/L (3.5-5.1)
[2018-12-19] MEDS: PANTOPRAZOLE 40 MG TABLET.DR. PO SCH (05:39)
[2018-12-19] MEDS: IV NORMAL SALINE 1000ML BAG 1,000 ML IV SCH ×2 (06:10→20:41)
[2018-12-19 07:00] VITALS: BP 127/82
--- NOTE | 2018-12-19 08:33 | PDOC ---
[employer] 12/19/18 0833: SURGICAL PROGRESS NOTE Subjective resting small stool some nausea Vital Signs Vital Signs Date Time Temp Pulse Resp B/P (MAP) Pulse Ox O2 Delivery O2 Flow Rate FiO2 12/19/18 07:50 98 Nasal Cannula 2.0 12/19/18 03:00 99.2 84 18 116/70 (85) 99.2 I&O Intake and Output 12/19/18 07:01 Intake Total 250 ml Balance 250 ml Intake Oral 250 ml # Voids 1 # Bowel Movements 1 General: Alert, Oriented X3, Cooperative, No acute distress Abdomen: Soft, Other (mild distention, dressings dry ) Labs Laboratory Tests Test 12/17/18 12:08 12/17/18 17:00 12/17/18 20:39 12/18/18 03:50 Glucose (Fingerstick) 164 mg/dL (70-99) 177 mg/dL (70-99) 182 mg/dL (70-99) White Blood Count 18.2 x10^3/uL (4.0-11.0) Red Blood Count 3.10 x10^6/uL (3.50-5.40) Hemoglobin 7.6 g/dL (12.0-15.5) Hematocrit 24.2 % (36.0-47.0) Mean Corpuscular Volume 78 fL (79-100) Mean Corpuscular Hemoglobin 25 pg (25-35) Mean Corpuscular Hemoglobin Concent 32 g/dL (31-37) Red Cell Distribution Width 23.5 % (11.5-14.5) Platelet Count 247 x10^3/uL (140-400) Neutrophils (%) (Auto) 88 % (31-73) Lymphocytes (%) (Auto) 5 % (24-48) Monocytes (%) (Auto) 7 % (0-9) Eosinophils (%) (Auto) 0 % (0-3) Basophils (%) (Auto) 0 % (0-3) Neutrophils # (Auto) 16.1 x10^3uL (1.8-7.7) Lymphocytes # (Auto) 0.9 x10^3/uL (1.0-4.8) Monocytes # (Auto) 1.2 x10^3/uL (0.0-1.1) Eosinophils # (Auto) 0.0 x10^3/uL (0.0-0.7) Basophils # (Auto) 0.0 x10^3/uL (0.0-0.2) Segmented Neutrophils % 82 % (35-66) Band Neutrophils % 6 % (0-9) Lymphocytes % 7 % (24-48) Monocytes % 5 % (0-10) Platelet Estimate Adequate (ADEQUATE) Large Platelets Present Polychromasia Present Hypochromasia Present Anisocytosis Mod Sodium Level 138 mmol/L (136-145) Potassium Level 4.3 mmol/L (3.5-5.1) Chloride Level 104 mmol/L (98-107) Carbon Dioxide Level 26 mmol/L (21-32) Anion Gap 8 (6-14) Blood Urea Nitrogen 16 mg/dL (7-20) Creatinine 1.2 mg/dL (0.6-1.0) Estimated GFR (Cockcroft-Gault) 53.1 Glucose Level 128 mg/dL (70-99) Calcium Level 9.1 mg/dL (8.5-10.1) Test 12/18/18 08:06 12/18/18 11:14 12/18/18 16:26 12/18/18 20:52 Glucose (Fingerstick) 162 mg/dL (70-99) 106 mg/dL (70-99) 148 mg/dL (70-99) 118 mg/dL (70-99) Test 12/19/18 04:15 White Blood Count 15.1 x10^3/uL (4.0-11.0) Red Blood Count 3.03 x10^6/uL (3.50-5.40) Hemoglobin 7.5 g/dL (12.0-15.5) Hematocrit 23.5 % (36.0-47.0) Mean Corpuscular Volume 78 fL (79-100) Mean Corpuscular Hemoglobin 25 pg (25-35) Mean Corpuscular Hemoglobin Concent 32 g/dL (31-37) Red Cell Distribution Width 23.8 % (11.5-14.5) Platelet Count 202 x10^3/uL (140-400) Neutrophils (%) (Auto) 85 % (31-73) Lymphocytes (%) (Auto) 8 % (24-48) Monocytes (%) (Auto) 7 % (0-9) Eosinophils (%) (Auto) 0 % (0-3) Basophils (%) (Auto) 0 % (0-3) Neutrophils # (Auto) 12.8 x10^3uL (1.8-7.7) Lymphocytes # (Auto) 1.2 x10^3/uL (1.0-4.8) Monocytes # (Auto) 1.1 x10^3/uL (0.0-1.1) Eosinophils # (Auto) 0.0 x10^3/uL (0.0-0.7) Basophils # (Auto) 0.0 x10^3/uL (0.0-0.2) Sodium Level 137 mmol/L (136-145) Potassium Level 3.8 mmol/L (3.5-5.1) Chloride Level 103 mmol/L (98-107) Carbon Dioxide Level 24 mmol/L (21-32) Anion Gap 10 (6-14) Blood Urea Nitrogen 19 mg/dL (7-20) Creatinine 0.8 mg/dL (0.6-1.0) Estimated GFR (Cockcroft-Gault) 84.8 Glucose Level 139 mg/dL (70-99) Calcium Level 9.0 mg/dL (8.5-10.1) Laboratory Tests Test 12/18/18 11:14 12/18/18 16:26 12/18/18 20:52 12/19/18 04:15 Glucose (Fingerstick) 106 mg/dL (70-99) 148 mg/dL (70-99) 118 mg/dL (70-99) White Blood Count 15.1 x10^3/uL (4.0-11.0) Red Blood Count 3.03 x10^6/uL (3.50-5.40) Hemoglobin 7.5 g/dL (12.0-15.5) Hematocrit 23.5 % (36.0-47.0) Mean Corpuscular Volume 78 fL (79-100) Mean Corpuscular Hemoglobin 25 pg (25-35) Mean Corpuscular Hemoglobin Concent 32 g/dL (31-37) Red Cell Distribution Width 23.8 % (11.5-14.5) Platelet Count 202 x10^3/uL (140-400) Neutrophils (%) (Auto) 85 % (31-73) Lymphocytes (%) (Auto) 8 % (24-48) Monocytes (%) (Auto) 7 % (0-9) Eosinophils (%) (Auto) 0 % (0-3) Basophils (%) (Auto) 0 % (0-3) Neutrophils # (Auto) 12.8 x10^3uL (1.8-7.7) Lymphocytes # (Auto) 1.2 x10^3/uL (1.0-4.8) Monocytes # (Auto) 1.1 x10^3/uL (0.0-1.1) Eosinophils # (Auto) 0.0 x10^3/uL (0.0-0.7) Basophils # (Auto) 0.0 x10^3/uL (0.0-0.2) Sodium Level 137 mmol/L (136-145) Potassium Level 3.8 mmol/L (3.5-5.1) Chloride Level 103 mmol/L (98-107) Carbon Dioxide Level 24 mmol/L (21-32) Anion Gap 10 (6-14) Blood Urea Nitrogen 19 mg/dL (7-20) Creatinine 0.8 mg/dL (0.6-1.0) Estimated GFR (Cockcroft-Gault) 84.8 Glucose Level 139 mg/dL (70-99) Calcium Level 9.0 mg/dL (8.5-10.1) Assessment/Plan s/p resection await for improved bowel function, continue clears increase activity today DAYLIN WEI MD 12/19/18 1251: SURGICAL PROGRESS NOTE Assessment/Plan Patient tolerating clear liquids will advance to full liquids agree with Germania assessment and plan encourage activity ABRAHAM WEBER APRN Dec 19, 2018 08:33 DAYLIN WEI MD Dec 19, 2018 12:51
--- NOTE | 2018-12-19 09:52 | PDOC ---
PROGRESS NOTES History of Present Illness History of Present Illness VTE Prophylaxis Ordered VTE Prophylaxis Devices: Yes VTE Pharmacological Prophylaxi: Contraindicated Assessment/Plan Assessment/Plan Assessment/Plan Assessment/Plan Gi bleed acute ,Questionable GI bleed with anemia marked anemia POA Colonoscopy in 11/2017 showed diverticulosis, EGD 11/2018 showed non-erosive gastritis bleeding cecal ulcer surgical resection 12/17/18 POD # 3 Operative Note Operative Note Date: 12/17/2018 Preoperative diagnosis: GI bleed cecal ulceration by colonoscopy with active bleeding hemorrhoids Postoperative diagnosis: Same Procedure: Laparoscopic-assisted right colon resection and hemorrhoidectomy Surgeon: Jan Specimen: Right colon and hemorrhoids INCREASE ACTIVITY 2/2 pain under fair control / STOOL X 1 Advance to full liquids, inc activity, PT/OT Vitals Vitals Vital Signs Date Time Temp Pulse Resp B/P (MAP) Pulse Ox O2 Delivery O2 Flow Rate FiO2 12/19/18 07:50 98 Nasal Cannula 2.0 12/19/18 03:00 99.2 84 18 116/70 (85) 99.2 Physical Exam General: Alert, Oriented X3, Cooperative, No acute distress Heart: Regular rate, Normal S1, Normal S2, No murmurs Lungs: Clear Abdomen: Soft, Other (DRESSING CLEAN/ DRY) Extremities: No clubbing, No cyanosis, No edema Skin: No significant lesion Labs LABS Laboratory Tests Test 12/18/18 11:14 12/18/18 16:26 12/18/18 20:52 12/19/18 04:15 Glucose (Fingerstick) 106 mg/dL (70-99) 148 mg/dL (70-99) 118 mg/dL (70-99) White Blood Count 15.1 x10^3/uL (4.0-11.0) Red Blood Count 3.03 x10^6/uL (3.50-5.40) Hemoglobin 7.5 g/dL (12.0-15.5) Hematocrit 23.5 % (36.0-47.0) Mean Corpuscular Volume 78 fL (79-100) Mean Corpuscular Hemoglobin 25 pg (25-35) Mean Corpuscular Hemoglobin Concent 32 g/dL (31-37) Red Cell Distribution Width 23.8 % (11.5-14.5) Platelet Count 202 x10^3/uL (140-400) Neutrophils (%) (Auto) 85 % (31-73) Lymphocytes (%) (Auto) 8 % (24-48) Monocytes (%) (Auto) 7 % (0-9) Eosinophils (%) (Auto) 0 % (0-3) Basophils (%) (Auto) 0 % (0-3) Neutrophils # (Auto) 12.8 x10^3uL (1.8-7.7) Lymphocytes # (Auto) 1.2 x10^3/uL (1.0-4.8) Monocytes # (Auto) 1.1 x10^3/uL (0.0-1.1) Eosinophils # (Auto) 0.0 x10^3/uL (0.0-0.7) Basophils # (Auto) 0.0 x10^3/uL (0.0-0.2) Sodium Level 137 mmol/L (136-145) Potassium Level 3.8 mmol/L (3.5-5.1) Chloride Level 103 mmol/L (98-107) Carbon Dioxide Level 24 mmol/L (21-32) Anion Gap 10 (6-14) Blood Urea Nitrogen 19 mg/dL (7-20) Creatinine 0.8 mg/dL (0.6-1.0) Estimated GFR (Cockcroft-Gault) 84.8 Glucose Level 139 mg/dL (70-99) Calcium Level 9.0 mg/dL (8.5-10.1) Test 12/19/18 08:16 Glucose (Fingerstick) 131 mg/dL (70-99) Comment Review of Relevant I have reviewed the following items abdifatah (where applicable) has been applied. Labs Laboratory Tests Test 12/17/18 12:08 12/17/18 17:00 12/17/18 20:39 12/18/18 03:50 Glucose (Fingerstick) 164 mg/dL (70-99) 177 mg/dL (70-99) 182 mg/dL (70-99) White Blood Count 18.2 x10^3/uL (4.0-11.0) Red Blood Count 3.10 x10^6/uL (3.50-5.40) Hemoglobin 7.6 g/dL (12.0-15.5) Hematocrit 24.2 % (36.0-47.0) Mean Corpuscular Volume 78 fL (79-100) Mean Corpuscular Hemoglobin 25 pg (25-35) Mean Corpuscular Hemoglobin Concent 32 g/dL (31-37) Red Cell Distribution Width 23.5 % (11.5-14.5) Platelet Count 247 x10^3/uL (140-400) Neutrophils (%) (Auto) 88 % (31-73) Lymphocytes (%) (Auto) 5 % (24-48) Monocytes (%) (Auto) 7 % (0-9) Eosinophils (%) (Auto) 0 % (0-3) Basophils (%) (Auto) 0 % (0-3) Neutrophils # (Auto) 16.1 x10^3uL (1.8-7.7) Lymphocytes # (Auto) 0.9 x10^3/uL (1.0-4.8) Monocytes # (Auto) 1.2 x10^3/uL (0.0-1.1) Eosinophils # (Auto) 0.0 x10^3/uL (0.0-0.7) Basophils # (Auto) 0.0 x10^3/uL (0.0-0.2) Segmented Neutrophils % 82 % (35-66) Band Neutrophils % 6 % (0-9) Lymphocytes % 7 % (24-48) Monocytes % 5 % (0-10) Platelet Estimate Adequate (ADEQUATE) Large Platelets Present Polychromasia Present Hypochromasia Present Anisocytosis Mod Sodium Level 138 mmol/L (136-145) Potassium Level 4.3 mmol/L (3.5-5.1) Chloride Level 104 mmol/L (98-107) Carbon Dioxide Level 26 mmol/L (21-32) Anion Gap 8 (6-14) Blood Urea Nitrogen 16 mg/dL (7-20) Creatinine 1.2 mg/dL (0.6-1.0) Estimated GFR (Cockcroft-Gault) 53.1 Glucose Level 128 mg/dL (70-99) Calcium Level 9.1 mg/dL (8.5-10.1) Test 12/18/18 08:06 12/18/18 11:14 12/18/18 16:26 12/18/18 20:52 Glucose (Fingerstick) 162 mg/dL (70-99) 106 mg/dL (70-99) 148 mg/dL (70-99) 118 mg/dL (70-99) Test 12/19/18 04:15 12/19/18 08:16 White Blood Count 15.1 x10^3/uL (4.0-11.0) Red Blood Count 3.03 x10^6/uL (3.50-5.40) Hemoglobin 7.5 g/dL (12.0-15.5) Hematocrit 23.5 % (36.0-47.0) Mean Corpuscular Volume 78 fL (79-100) Mean Corpuscular Hemoglobin 25 pg (25-35) Mean Corpuscular Hemoglobin Concent 32 g/dL (31-37) Red Cell Distribution Width 23.8 % (11.5-14.5) Platelet Count 202 x10^3/uL (140-400) Neutrophils (%) (Auto) 85 % (31-73) Lymphocytes (%) (Auto) 8 % (24-48) Monocytes (%) (Auto) 7 % (0-9) Eosinophils (%) (Auto) 0 % (0-3) Basophils (%) (Auto) 0 % (0-3) Neutrophils # (Auto) 12.8 x10^3uL (1.8-7.7) Lymphocytes # (Auto) 1.2 x10^3/uL (1.0-4.8) Monocytes # (Auto) 1.1 x10^3/uL (0.0-1.1) Eosinophils # (Auto) 0.0 x10^3/uL (0.0-0.7) Basophils # (Auto) 0.0 x10^3/uL (0.0-0.2) Sodium Level 137 mmol/L (136-145) Potassium Level 3.8 mmol/L (3.5-5.1) Chloride Level 103 mmol/L (98-107) Carbon Dioxide Level 24 mmol/L (21-32) Anion Gap 10 (6-14) Blood Urea Nitrogen 19 mg/dL (7-20) Creatinine 0.8 mg/dL (0.6-1.0) Estimated GFR (Cockcroft-Gault) 84.8 Glucose Level 139 mg/dL (70-99) Calcium Level 9.0 mg/dL (8.5-10.1) Glucose (Fingerstick) 131 mg/dL (70-99) Laboratory Tests Test 12/18/18 11:14 12/18/18 16:26 12/18/18 20:52 12/19/18 04:15 Glucose (Fingerstick) 106 mg/dL (70-99) 148 mg/dL (70-99) 118 mg/dL (70-99) White Blood Count 15.1 x10^3/uL (4.0-11.0) Red Blood Count 3.03 x10^6/uL (3.50-5.40) Hemoglobin 7.5 g/dL (12.0-15.5) Hematocrit 23.5 % (36.0-47.0) Mean Corpuscular Volume 78 fL (79-100) Mean Corpuscular Hemoglobin 25 pg (25-35) Mean Corpuscular Hemoglobin Concent 32 g/dL (31-37) Red Cell Distribution Width 23.8 % (11.5-14.5) Platelet Count 202 x10^3/uL (140-400) Neutrophils (%) (Auto) 85 % (31-73) Lymphocytes (%) (Auto) 8 % (24-48) Monocytes (%) (Auto) 7 % (0-9) Eosinophils (%) (Auto) 0 % (0-3) Basophils (%) (Auto) 0 % (0-3) Neutrophils # (Auto) 12.8 x10^3uL (1.8-7.7) Lymphocytes # (Auto) 1.2 x10^3/uL (1.0-4.8) Monocytes # (Auto) 1.1 x10^3/uL (0.0-1.1) Eosinophils # (Auto) 0.0 x10^3/uL (0.0-0.7) Basophils # (Auto) 0.0 x10^3/uL (0.0-0.2) Sodium Level 137 mmol/L (136-145) Potassium Level 3.8 mmol/L (3.5-5.1) Chloride Level 103 mmol/L (98-107) Carbon Dioxide Level 24 mmol/L (21-32) Anion Gap 10 (6-14) Blood Urea Nitrogen 19 mg/dL (7-20) Creatinine 0.8 mg/dL (0.6-1.0) Estimated GFR (Cockcroft-Gault) 84.8 Glucose Level 139 mg/dL (70-99) Calcium Level 9.0 mg/dL (8.5-10.1) Test 12/19/18 08:16 Glucose (Fingerstick) 131 mg/dL (70-99) Medications Current Medications Sodium Chloride 1,000 ml @ 1,000 mls/hr 1X ONCE IV Last administered on 13:52; Start 12/14/18 at 13:30; Stop 12/14/18 at 14:29; Status DC Amlodipine Besylate (Norvasc) 10 mg DAILY PO Last administered on 12/18/18 08: 32; Start 12/14/18 at 17:00 Chlorhexidine Gluconate (Peridex) 15 ml BID MM Last administered on 12/18/18 20 :58; Start 12/14/18 at 21:00 Non-Formulary Medication (Albuterol Sulfate (Ventolin Hfa Inhaler)) 2 puff Q4HRS INH ; Start 12/14/18 at 20:00; Status UNV Ascorbic Acid (Vitamin C) 500 mg DAILY PO Last administered on 12/18/18 08:32; Start 12/14/18 at 17:00 Duloxetine HCl (Cymbalta) 90 mg DAILY PO Last administered on 12/18/18 08:31; Start 12/14/18 at 17:00 Ferrous Sulfate (Feosol) 325 mg DAILYWBKFT PO Last administered on 12/18/18 08: 28; Start 12/14/18 at 17:00 Losartan Potassium (Cozaar) 100 mg DAILY PO Last administered on 12/18/18 08:31 ; Start 12/14/18 at 17:00 Memantine (Namenda) 10 mg BID PO Last administered on 12/18/18 20:59; Start at 21:00 Pantoprazole Sodium (Protonix) 40 mg DAILYAC PO Last administered on 12/19/18 05:39; Start 12/14/18 at 17:00 Ropinirole HCl (Requip) 3 mg QHS PO Last administered on 12/18/18 20:59; Start 12/14/18 at 21:00 Spironolactone (Aldactone) 25 mg DAILY PO Last administered on 2/2/19at 08:29; Start 12/14/18 at 17:00 Albuterol Sulfate (Ventolin Neb Soln) 2.5 mg Q4HRS NEB Last administered on 12/19at 07:50; Start 12/14/18 at 20:00 Sodium Chloride 1,000 ml @ 80 mls/hr [id number] IV Last administered on 12/19/18at 06:10; Start 12/14/18 at 17:15 Acetaminophen (Tylenol) 650 mg PRN Q6HRS PRN PO Pain Last administered on at 17:11; Start 12/15/18 at 04:45 Polyethylene Glycol (miraLAX Powder BULK BOTTLE) 238 gm 1X ONCE PO Last administered on 12/15/18at 12:48; Start 12/15/18 at 12:00; Stop 12/15/18 at 12:01 ; Status DC Ondansetron HCl (Zofran) 4 mg PRN Q6HRS PRN IV NAUSEA/VOMITING; Start 12/16/18 at 07:00; Stop 12/17/18 at 06:59; Status DC Fentanyl Citrate (Fentanyl 2ml Vial) 25 mcg PRN Q5MIN PRN IV MILD PAIN; Start 12/16/18 at 07:00; Stop 12/16/18 at 16:33; Status DC Fentanyl Citrate (Fentanyl 2ml Vial) 50 mcg PRN Q5MIN PRN IV MODERATE TO SEVERE PAIN; Start 12/16/18 at 07:00; Stop 12/16/18 at 16:33; Status DC Morphine Sulfate (Morphine Sulfate) 1 mg PRN Q10MIN PRN IV SEVERE PAIN; Start 12/16/18 at 07:00; Stop 12/17/18 at 06:59; Status DC Ringer's Solution 1,000 ml @ 30 mls/hr Q24H IV Last administered on 12/16/18at 13:00; Start 12/16/18 at 07:00; Stop 12/16/18 at 18:59; Status DC Lidocaine HCl (Xylocaine-Mpf 1% 2ml Vial) 2 ml PRN 1X PRN ID IV START; Start at 07:00; Stop 12/17/18 at 06:59; Status DC Hydromorphone HCl (Dilaudid) 0.5 mg PRN Q10MIN PRN IV SEV PAIN, Second choice; Start 12/16/18 at 07:00; Stop 12/17/18 at 06:59; Status DC Prochlorperazine Edisylate (Compazine) 5 mg PACU PRN PRN IV NAUSEA, MRX1; Start 12/16/18 at 07:00; Stop 12/17/18 at 06:59; Status DC Midazolam HCl (Versed) 2 mg PRN 1X PRN IV PRIOR TO PROCEDURE; Start 12/16/18 at 07:15; Stop 12/17/18 at 07:14; Status DC Fentanyl Citrate (Fentanyl 2ml Vial) 25 mcg PRN Q5MIN PRN IV X 2 DOSES FOR PAIN ; Start 12/16/18 at 07:15; Stop 12/16/18 at 16:33; Status DC Fentanyl Citrate (Fentanyl 2ml Vial) 50 mcg PRN Q5MIN PRN IV X 2 DOSES FOR PAIN ; Start 12/16/18 at 07:15; Stop 12/16/18 at 16:34; Status DC Ringer's Solution 1,000 ml @ 125 mls/hr Q8H IV ; Start 12/16/18 at 07:13; Stop 12/16/18 at 19:12; Status DC Lidocaine HCl (Xylocaine-Mpf 1% 2ml Vial) 2 ml 1X PRN PRN ID IV START; Start at 07:15; Stop 12/17/18 at 07:14; Status DC Propofol 40 ml @ As Directed STK-MED ONCE IV ; Start 12/16/18 at 13:58; Stop at 14:00; Status DC Prochlorperazine Edisylate (Compazine) 5 mg PACU PRN PRN IV NAUSEA, MRX1; Start 12/17/18 at 07:00; Stop 12/18/18 at 06:59; Status DC Hydromorphone HCl (Dilaudid) 0.5 mg PRN Q10MIN PRN IV SEV PAIN, Second choice; Start 12/17/18 at 07:00; Stop 12/18/18 at 06:59; Status DC Lidocaine HCl (Xylocaine-Mpf 1% 2ml Vial) 2 ml PRN 1X PRN ID IV START; Start at 07:00; Stop 12/18/18 at 06:59; Status DC Ringer's Solution 1,000 ml @ 30 mls/hr Q24H IV Last administered on 12/17/18at 10:34; Start 12/17/18 at 07:00; Stop 12/17/18 at 18:59; Status DC Morphine Sulfate (Morphine Sulfate) 1 mg PRN Q10MIN PRN IV SEVERE PAIN; Start 12/17/18 at 07:00; Stop 12/18/18 at 06:59; Status DC Fentanyl Citrate (Fentanyl 2ml Vial) 50 mcg PRN Q5MIN PRN IV MODERATE TO SEVERE PAIN Last administered on 12/17/18at 11:13; Start 12/17/18 at 07:00; Stop at 06:59; Status DC Fentanyl Citrate (Fentanyl 2ml Vial) 25 mcg PRN Q5MIN PRN IV MILD PAIN; Start 12/17/18 at 07:00; Stop 12/18/18 at 06:59; Status DC Ondansetron HCl (Zofran) 4 mg PRN Q6HRS PRN IV NAUSEA/VOMITING; Start 12/17/18 at 07:00; Stop 12/18/18 at 06:59; Status DC Propofol 20 ml @ As Directed STK-MED ONCE IV ; Start 12/17/18 at 07:21; Stop 12/17 at 07:23; Status DC Albuterol Sulfate (Ventolin Neb Soln) 2.5 mg 1X ONCE NEB ; Start 12/17/18 at 07: 30; Stop 12/17/18 at 07:31; Status DC Lidocaine HCl (Lidocaine Pf 2% Vial) 5 ml STK-MED ONCE .ROUTE ; Start 12/17/18 at 07:21; Stop 12/17/18 at 07:23; Status DC Succinylcholine Chloride (Anectine) 200 mg STK-MED ONCE .ROUTE ; Start 12/17/18 at 07:21; Stop 12/17/18 at 07:23; Status DC Rocuronium [place] (Zemuron) 50 mg STK-MED ONCE .ROUTE ; Start 12/17/18 at 07:21 ; Stop 12/17/18 at 07:23; Status DC Fentanyl Citrate (Fentanyl 2ml Vial) 100 mcg STK-MED ONCE .ROUTE ; Start at 07:21; Stop 12/17/18 at 07:24; Status DC Cefazolin Sodium/ Dextrose 50 ml @ 100 mls/hr 1X ONCE IV Last administered on 12/17/18at 08:07; Start 12/17/18 at 07:45; Stop 12/17/18 at 08:18; Status DC Bupivacaine HCl/ Epinephrine Bitart (Sensorcain-Mpf Epi 0.5%-1:452205) 30 ml STK -MED ONCE .ROUTE Last administered on 12/17/18at 08:34; Start 12/17/18 at 07:46; Stop 12/17/18 at 07:49; Status DC Neomycin/ Polymyxin/ Bacitracin (Triple Antibiotic Ointment) 1 pkt STK-MED ONCE TP Last administered on 12/17/18at 10:07; Start 12/17/18 at 07:46; Stop 12/17/18 at 07:49; Status DC Neomycin/ Polymyxin/ Bacitracin (Triple Antibiotic Ointment) 1 pkt STK-MED ONCE TP Last administered on 12/17/18at 10:07; Start 12/17/18 at 07:46; Stop 12/17/18 at 07:49; Status DC Neomycin/ Polymyxin/ Bacitracin (Triple Antibiotic Ointment) 1 pkt STK-MED ONCE TP ; Start 12/17/18 at 07:47; Stop 12/17/18 at 07:49; Status DC Dexamethasone Sodium Phosphate (Decadron) 20 mg STK-MED ONCE .ROUTE ; Start 12/17 at 07:54; Stop 12/17/18 at 07:56; Status DC Hydrocortisone Sodium Succinate (Solu-CORTEF) 100 mg STK-MED ONCE .ROUTE ; Start 12/17/18 at 07:54; Stop 12/17/18 at 07:56; Status DC Desflurane (Suprane) 90 ml STK-MED ONCE IH ; Start 12/17/18 at 07:54; Stop at 07:56; Status DC Neostigmine Methylsulfate (Bloxiverz) 10 mg STK-MED ONCE .ROUTE ; Start 12/17/18 at 08:21; Stop 12/17/18 at 08:24; Status DC Glycopyrrolate (Robinul) 1 mg STK-MED ONCE .ROUTE ; Start 12/17/18 at 08:21; Stop 12/17/18 at 08:24; Status DC Phenylephrine HCl (Bogdan-Synephrine Inj) 10 mg STK-MED ONCE .ROUTE ; Start at 08:23; Stop 12/17/18 at 08:26; Status DC Desflurane (Suprane) 60 ml STK-MED ONCE IH ; Start 12/17/18 at 09:23; Stop at 09:26; Status DC Bupivacaine HCl/ Epinephrine Bitart (Sensorcain-Mpf Epi 0.5%-1:[id number]) 30 ml STK -MED ONCE .ROUTE Last administered on 12/17/18at 10:06; Start 12/17/18 at 09:41; Stop 12/17/18 at 09:43; Status DC Morphine Sulfate (Morphine Sulfate) 2 mg PRN Q2HR PRN IV PAIN Last administered on 12/19/18at 07:18; Start 12/17/18 at 10:15 Ketorolac Tromethamine (Toradol 15mg Vial) 15 mg Q6HRS IV Last administered on 12/18/18at 05:39; Start 12/17/18 at 12:00; Stop 12/18/18 at 10:00; Status DC Artificial Tears (Artificial Tears) 1 drop PRN Q15MIN PRN OU DRY EYE; Start 12/18/18 at 08:00 Docusate Sodium (Colace) 100 mg DAILY PO Last administered on 12/18/18at 13:16; Start 12/18/18 at 10:00 Throat Lozenges (Cepacol Sore Throat Lozenge) 1 kristyn PRN Q2HRS PRN PO SORE THROAT Last administered on 12/18/18at 14:03; Start 12/18/18 at 14:00 Enoxaparin Sodium (Lovenox 40mg Syringe) 40 mg Q24H SQ ; Start 12/19/18 at 09:00 Active Scripts Active Chlorhexidine Gluconate 473 Ml Mouthwash 473 Ml MM BID 7 Days Vitamin C (Ascorbate Calcium) 500 Mg Tablet 500 Mg PO DAILY 30 Days Slow Release Iron (Ferrous Sulfate) 250 Mg Tablet.er 250 Mg PO DAILY 30 Days Protonix (Pantoprazole Sodium) 40 Mg Granpkt.dr 40 Mg PO DAILY 30 Days Reported Metformin Hcl Er (Metformin Hcl) 500 Mg Tab.er.24h 1 Tab PO DAILY Namenda (Memantine Hcl) 10 Mg Tablet 1 Tab PO BID Losartan Potassium 100 Mg Tablet 100 Mg PO DAILY Spironolactone 25 Mg Tablet 1 Tab PO DAILY Ventolin Hfa Inhaler (Albuterol Sulfate) 18 Gm Hfa.aer.ad 2 Puff INH Q4HRS Cymbalta (Duloxetine Hcl) 20 Mg Capsule.dr 90 Mg PO DAILY Requip (Ropinirole Hcl) 1 Mg Tablet 3 Mg PO DAILY Amlodipine Besylate 10 Mg Tablet 10 Mg PO DAILY Vitals/I & O Vital Sign - Last 24 Hours 12/18/18 12/18/18 12/18/18 12/18/18 11:00 11:32 14:03 15:00 Temp 98.1 98.1 98.1 98.1 Pulse 101 95 Resp 18 18 B/P (MAP) 121/64 (83) 125/66 (85) Pulse Ox 93 93 93 O2 Delivery Room Air Nasal Cannula Nasal Cannula Nasal Cannula O2 Flow Rate 2.0 2.0 2.0 12/18/18 12/18/18 12/18/18 12/18/18 15:16 19:00 20:15 20:20 Temp 99.1 99.1 Pulse 64 Resp 18 B/P (MAP) 133/73 (93) Pulse Ox 95 94 O2 Delivery Nasal Cannula Nasal Cannula Nasal Cannula Nasal Cannula O2 Flow Rate 3.0 2.0 4.0 3.0 12/18/18 12/18/18 12/18/18 12/19/18 21:00 23:00 23:10 03:00 Temp 100.0 99.2 100.0 99.2 Pulse 87 84 Resp 18 18 B/P (MAP) 126/76 (93) 116/70 (85) Pulse Ox 98 100 O2 Delivery Nasal Cannula Nasal Cannula Nasal Cannula Nasal Cannula O2 Flow Rate 3.0 2.0 4.0 2.0 12/19/18 12/19/18 12/19/18 12/19/18 03:23 04:41 05:39 07:18 Pulse Ox 99 O2 Delivery Nasal Cannula Nasal Cannula Nasal Cannula Nasal Cannula O2 Flow Rate 4.0 3.0 3.0 3.0 12/19/18 07:50 Pulse Ox 98 O2 Delivery Nasal Cannula O2 Flow Rate 2.0 Intake and Output 12/18/18 12/18/18 12/19/18 15:01 23:01 07:01 Intake Total 250 ml Balance 250 ml DAYLIN MILLER MD Dec 19, 2018 09:52
[2018-12-19] MEDS: DOCUSATE SODIUM 100 MG CAPSULE. PO SCH (10:56)
[2018-12-19] MEDS: MEMANTINE 10 MG TABLET. PO SCH ×2 (10:56→20:34)
[2018-12-19] MEDS: SPIRONOLACTONE 25 MG TABLET PO SCH (10:56)
[2018-12-19] MEDS: amLODIPine BESYLATE 10 MG TABLET PO SCH (10:58)
[2018-12-19] MEDS: CHLORHEXIDINE 0.12% 15 ML MOUTHWASH. MM SCH ×2 (10:59→20:34)
[2018-12-19] MEDS: FERROUS SULFATE 325 MG TABLET. PO SCH (10:59)
[2018-12-19] MEDS: DULoxetine HCL 30 MG CAPSULE.DR PO SCH (10:59)
[2018-12-19] MEDS: ASCORBIC ACID 500 MG TABLET PO SCH (10:59)
[2018-12-19] MEDS: LOSARTAN POTASSIUM 50 MG TABLET. PO SCH (10:59)
[2018-12-19 11:00] VITALS: BP 143/83
[2018-12-19] MEDS: POLYVINYL ALCOHOL 1.4% OPHTH SOLUTION 15ML BOTTLE. OU PRN (11:00)
[2018-12-19] MEDS: ENOXAPARIN 40 MG/0.4 ML SYRINGE. SQ SCH (11:07)
[2018-12-19] MEDS: ONDANSETRON PF 4 MG/2 ML VIAL. IV PRN (11:46)
[2018-12-19 15:00] VITALS: BP 135/86
[2018-12-19] MEDS ORDERED: DEXTROSE 50% 25 GM / 50ML DISP.SYRIN. IV PRN (16:45)
[2018-12-19] MEDS: INSULIN LISPRO 300 UNITS/3 ML INSULN.PEN. SQ SCH (17:00)
[2018-12-19 19:00] VITALS: BP 134/88
--- NOTE | 2018-12-19 19:30 | NUR ---
Pt flagged septic. MD notified. Orders placed. Will continue to monitor.
[2018-12-19] MEDS: rOPINIRole 1 MG TABLET. PO SCH (20:37)
--- NOTE | 2018-12-19 22:08 | RAD ---
CHEST AP ONLY Clinical History: septic Technique: AP view of the chest was obtained at 12/19/2018 8:54 PM. Comparison: None. Findings: The heart is normal in size. The pulmonary vasculature is normal. There is left perihilar and basilar linear opacities. The pleural margins are clear. Prominence of the superior mediastinum is likely ectatic vasculature. Impression: Bilateral infiltrates likely discoid atelectasis. Electronically signed by: Fred Ramachandran III, MD (12/19/2018 10:04 PM) [facility]
[2018-12-19 23:00] VITALS: BP 144/82
--- NOTE | 2018-12-20 02:07 | NUR ---
RN noticed that patient hasn't had a breathing treatment since yesterday afternoon and they are scheduled every 4 hours. RN spoke to Lucy KAM and she stated that patient has refused breathing treatments at night and patient agreed to call if she is in need of a treatment. RN will continue to monitor.
[2018-12-20] MEDS: ALBUTEROL SULFATE 2.5 MG/3 ML NEBU. NEB SCH ×7 (02:23→20:55)
--- NOTE | 2018-12-20 02:25 | NUR ---
PT REQUESTING NOT TO BE AWOKEN AT NIGHT FOR NEB TREATMENTS, SHE FEELS SHE IS BREATHING OK. PT GIVEN [id number] BREATHING TREATMENT AT [facility].
[2018-12-20 03:00] VITALS: BP 137/91
[2018-12-20] MEDS: PANTOPRAZOLE 40 MG TABLET.DR. PO SCH (06:11)
[2018-12-20 07:00] VITALS: BP 147/95
[2018-12-20 07:09] LABS: BASO % 0 % (0-3); EOS % 0 % (0-3); HEMATOCRIT 26.7 % (36.0-47.0); HEMOGLOBIN 8.5 g/dL (12.0-15.5); LYMPH # 0.6 x10^3/uL (1.0-4.8); LYMPH % 14 % (24-48); MEAN CORPUSCULAR HEMOGLOBIN 25 pg (25-35); MEAN CORPUSCULAR HGB CONC 32 g/dL (31-37); MEAN CORPUSCULAR VOLUME 78 fL (79-100); MONO # 0.6 x10^3/uL (0.0-1.1); MONO % 16 % (0-9); NEUT # 2.7 x10^3uL (1.8-7.7); NEUT % 69 % (31-73); PLATELET COUNT 214 x10^3/uL (140-400); RED BLOOD COUNT 3.42 x10^6/uL (3.50-5.40); RED CELL DISTRIBUTION WIDTH 23.4 % (11.5-14.5); WHITE BLOOD COUNT 3.8 x10^3/uL (4.0-11.0)
[2018-12-20 07:13] LABS: CALCIUM 9.4 mg/dL (8.5-10.1); CREATININE 0.9 mg/dL (0.6-1.0); GFR 74.1
[2018-12-20] MEDS: INSULIN LISPRO 300 UNITS/3 ML INSULN.PEN. SQ SCH ×3 (08:00→17:00)
[2018-12-20] MEDS: FERROUS SULFATE 325 MG TABLET. PO SCH (08:55)
[2018-12-20] MEDS: ENOXAPARIN 40 MG/0.4 ML SYRINGE. SQ SCH (08:56)
[2018-12-20] MEDS: amLODIPine BESYLATE 10 MG TABLET PO SCH (08:56)
[2018-12-20] MEDS: DULoxetine HCL 30 MG CAPSULE.DR PO SCH (08:56)
[2018-12-20] MEDS: ASCORBIC ACID 500 MG TABLET PO SCH (08:56)
[2018-12-20] MEDS: SPIRONOLACTONE 25 MG TABLET PO SCH (08:57)
[2018-12-20] MEDS: MEMANTINE 10 MG TABLET. PO SCH ×2 (08:57→21:27)
[2018-12-20] MEDS: DOCUSATE SODIUM 100 MG CAPSULE. PO SCH (08:57)
[2018-12-20] MEDS: LOSARTAN POTASSIUM 50 MG TABLET. PO SCH (08:57)
[2018-12-20] MEDS: CHLORHEXIDINE 0.12% 15 ML MOUTHWASH. MM SCH ×2 (09:18→21:27)
[2018-12-20] MEDS: MORPHINE SULFATE 4 MG/ML VIAL. IV PRN ×3 (09:20→21:29)
--- NOTE | 2018-12-20 10:17 | PDOC ---
PROGRESS NOTES History of Present Illness History of Present Illness VTE Prophylaxis Ordered VTE Prophylaxis Devices: Yes VTE Pharmacological Prophylaxi: Contraindicated Assessment/Plan Assessment/Plan Assessment/Plan Assessment/Plan Gi bleed acute ,Questionable GI bleed with anemia marked anemia POA Colonoscopy in 11/2017 showed diverticulosis, EGD 11/2018 showed non-erosive gastritis bleeding cecal ulcer surgical resection 12/17/18 POD # 3 Operative Note Operative Note Date: 12/17/2018 Preoperative diagnosis: GI bleed cecal ulceration by colonoscopy with active bleeding hemorrhoids Postoperative diagnosis: Same Procedure: Laparoscopic-assisted right colon resection and hemorrhoidectomy Surgeon: Jan Specimen: Right colon and hemorrhoids INCREASE ACTIVITY 2/2 pain under fair control 2/3 STOOL X 1 Advance to full liquids, inc activity, PT/OT, snf bed encouraged Vitals Vitals Vital Signs Date Time Temp Pulse Resp B/P (MAP) Pulse Ox O2 Delivery O2 Flow Rate FiO2 12/20/18 09:20 18 98 Nasal Cannula 3.0 12/20/18 08:57 86 147/95 12/20/18 07:00 98.4 98.4 Physical Exam General: Alert, Oriented X3, Cooperative, No acute distress Heart: Regular rate, Normal S1, Normal S2, No murmurs Lungs: Clear Abdomen: Soft, Other (DRESSING CLEAN/ DRY) Extremities: No clubbing, No cyanosis, No edema Skin: No significant lesion Labs LABS Laboratory Tests Test 12/19/18 12:09 12/19/18 15:58 12/19/18 20:28 12/19/18 21:10 Glucose (Fingerstick) 155 mg/dL (70-99) 140 mg/dL (70-99) 170 mg/dL (70-99) Lactic Acid Level 1.2 mmol/L (0.4-2.0) Test 12/20/18 06:35 12/20/18 07:11 White Blood Count 3.8 x10^3/uL (4.0-11.0) Red Blood Count 3.42 x10^6/uL (3.50-5.40) Hemoglobin 8.5 g/dL (12.0-15.5) Hematocrit 26.7 % (36.0-47.0) Mean Corpuscular Volume 78 fL (79-100) Mean Corpuscular Hemoglobin 25 pg (25-35) Mean Corpuscular Hemoglobin Concent 32 g/dL (31-37) Red Cell Distribution Width 23.4 % (11.5-14.5) Platelet Count 214 x10^3/uL (140-400) Neutrophils (%) (Auto) 69 % (31-73) Lymphocytes (%) (Auto) 14 % (24-48) Monocytes (%) (Auto) 16 % (0-9) Eosinophils (%) (Auto) 0 % (0-3) Basophils (%) (Auto) 0 % (0-3) Neutrophils # (Auto) 2.7 x10^3uL (1.8-7.7) Lymphocytes # (Auto) 0.6 x10^3/uL (1.0-4.8) Monocytes # (Auto) 0.6 x10^3/uL (0.0-1.1) Eosinophils # (Auto) 0.0 x10^3/uL (0.0-0.7) Basophils # (Auto) 0.0 x10^3/uL (0.0-0.2) Sodium Level 137 mmol/L (136-145) Potassium Level 4.0 mmol/L (3.5-5.1) Chloride Level 103 mmol/L (98-107) Carbon Dioxide Level 24 mmol/L (21-32) Anion Gap 10 (6-14) Blood Urea Nitrogen 26 mg/dL (7-20) Creatinine 0.9 mg/dL (0.6-1.0) Estimated GFR (Cockcroft-Gault) 74.1 Glucose Level 154 mg/dL (70-99) Calcium Level 9.4 mg/dL (8.5-10.1) Glucose (Fingerstick) 133 mg/dL (70-99) Comment Review of Relevant I have reviewed the following items abdifatah (where applicable) has been applied. Labs Laboratory Tests Test 12/18/18 11:14 12/18/18 16:26 12/18/18 20:52 12/19/18 04:15 Glucose (Fingerstick) 106 mg/dL (70-99) 148 mg/dL (70-99) 118 mg/dL (70-99) White Blood Count 15.1 x10^3/uL (4.0-11.0) Red Blood Count 3.03 x10^6/uL (3.50-5.40) Hemoglobin 7.5 g/dL (12.0-15.5) Hematocrit 23.5 % (36.0-47.0) Mean Corpuscular Volume 78 fL (79-100) Mean Corpuscular Hemoglobin 25 pg (25-35) Mean Corpuscular Hemoglobin Concent 32 g/dL (31-37) Red Cell Distribution Width 23.8 % (11.5-14.5) Platelet Count 202 x10^3/uL (140-400) Neutrophils (%) (Auto) 85 % (31-73) Lymphocytes (%) (Auto) 8 % (24-48) Monocytes (%) (Auto) 7 % (0-9) Eosinophils (%) (Auto) 0 % (0-3) Basophils (%) (Auto) 0 % (0-3) Neutrophils # (Auto) 12.8 x10^3uL (1.8-7.7) Lymphocytes # (Auto) 1.2 x10^3/uL (1.0-4.8) Monocytes # (Auto) 1.1 x10^3/uL (0.0-1.1) Eosinophils # (Auto) 0.0 x10^3/uL (0.0-0.7) Basophils # (Auto) 0.0 x10^3/uL (0.0-0.2) Sodium Level 137 mmol/L (136-145) Potassium Level 3.8 mmol/L (3.5-5.1) Chloride Level 103 mmol/L (98-107) Carbon Dioxide Level 24 mmol/L (21-32) Anion Gap 10 (6-14) Blood Urea Nitrogen 19 mg/dL (7-20) Creatinine 0.8 mg/dL (0.6-1.0) Estimated GFR (Cockcroft-Gault) 84.8 Glucose Level 139 mg/dL (70-99) Calcium Level 9.0 mg/dL (8.5-10.1) Test 12/19/18 08:16 12/19/18 12:09 12/19/18 15:58 12/19/18 20:28 Glucose (Fingerstick) 131 mg/dL (70-99) 155 mg/dL (70-99) 140 mg/dL (70-99) 170 mg/dL (70-99) Test 12/19/18 21:10 12/20/18 06:35 12/20/18 07:11 Lactic Acid Level 1.2 mmol/L (0.4-2.0) White Blood Count 3.8 x10^3/uL (4.0-11.0) Red Blood Count 3.42 x10^6/uL (3.50-5.40) Hemoglobin 8.5 g/dL (12.0-15.5) Hematocrit 26.7 % (36.0-47.0) Mean Corpuscular Volume 78 fL (79-100) Mean Corpuscular Hemoglobin 25 pg (25-35) Mean Corpuscular Hemoglobin Concent 32 g/dL (31-37) Red Cell Distribution Width 23.4 % (11.5-14.5) Platelet Count 214 x10^3/uL (140-400) Neutrophils (%) (Auto) 69 % (31-73) Lymphocytes (%) (Auto) 14 % (24-48) Monocytes (%) (Auto) 16 % (0-9) Eosinophils (%) (Auto) 0 % (0-3) Basophils (%) (Auto) 0 % (0-3) Neutrophils # (Auto) 2.7 x10^3uL (1.8-7.7) Lymphocytes # (Auto) 0.6 x10^3/uL (1.0-4.8) Monocytes # (Auto) 0.6 x10^3/uL (0.0-1.1) Eosinophils # (Auto) 0.0 x10^3/uL (0.0-0.7) Basophils # (Auto) 0.0 x10^3/uL (0.0-0.2) Sodium Level 137 mmol/L (136-145) Potassium Level 4.0 mmol/L (3.5-5.1) Chloride Level 103 mmol/L (98-107) Carbon Dioxide Level 24 mmol/L (21-32) Anion Gap 10 (6-14) Blood Urea Nitrogen 26 mg/dL (7-20) Creatinine 0.9 mg/dL (0.6-1.0) Estimated GFR (Cockcroft-Gault) 74.1 Glucose Level 154 mg/dL (70-99) Calcium Level 9.4 mg/dL (8.5-10.1) Glucose (Fingerstick) 133 mg/dL (70-99) Laboratory Tests Test 12/19/18 12:09 12/19/18 15:58 12/19/18 20:28 12/19/18 21:10 Glucose (Fingerstick) 155 mg/dL (70-99) 140 mg/dL (70-99) 170 mg/dL (70-99) Lactic Acid Level 1.2 mmol/L (0.4-2.0) Test 12/20/18 06:35 12/20/18 07:11 White Blood Count 3.8 x10^3/uL (4.0-11.0) Red Blood Count 3.42 x10^6/uL (3.50-5.40) Hemoglobin 8.5 g/dL (12.0-15.5) Hematocrit 26.7 % (36.0-47.0) Mean Corpuscular Volume 78 fL (79-100) Mean Corpuscular Hemoglobin 25 pg (25-35) Mean Corpuscular Hemoglobin Concent 32 g/dL (31-37) Red Cell Distribution Width 23.4 % (11.5-14.5) Platelet Count 214 x10^3/uL (140-400) Neutrophils (%) (Auto) 69 % (31-73) Lymphocytes (%) (Auto) 14 % (24-48) Monocytes (%) (Auto) 16 % (0-9) Eosinophils (%) (Auto) 0 % (0-3) Basophils (%) (Auto) 0 % (0-3) Neutrophils # (Auto) 2.7 x10^3uL (1.8-7.7) Lymphocytes # (Auto) 0.6 x10^3/uL (1.0-4.8) Monocytes # (Auto) 0.6 x10^3/uL (0.0-1.1) Eosinophils # (Auto) 0.0 x10^3/uL (0.0-0.7) Basophils # (Auto) 0.0 x10^3/uL (0.0-0.2) Sodium Level 137 mmol/L (136-145) Potassium Level 4.0 mmol/L (3.5-5.1) Chloride Level 103 mmol/L (98-107) Carbon Dioxide Level 24 mmol/L (21-32) Anion Gap 10 (6-14) Blood Urea Nitrogen 26 mg/dL (7-20) Creatinine 0.9 mg/dL (0.6-1.0) Estimated GFR (Cockcroft-Gault) 74.1 Glucose Level 154 mg/dL (70-99) Calcium Level 9.4 mg/dL (8.5-10.1) Glucose (Fingerstick) 133 mg/dL (70-99) Medications Current Medications Sodium Chloride 1,000 ml @ 1,000 mls/hr 1X ONCE IV Last administered on 13:52; Start 12/14/18 at 13:30; Stop 12/14/18 at 14:29; Status DC Amlodipine Besylate (Norvasc) 10 mg DAILY PO Last administered on 12/20/18 08: 56; Start 12/14/18 at 17:00 Chlorhexidine Gluconate (Peridex) 15 ml BID MM Last administered on 12/20/18 09 :18; Start 12/14/18 at 21:00 Non-Formulary Medication (Albuterol Sulfate (Ventolin Hfa Inhaler)) 2 puff Q4HRS INH ; Start 12/14/18 at 20:00; Status UNV Ascorbic Acid (Vitamin C) 500 mg DAILY PO Last administered on 12/20/18 08:56; Start 12/14/18 at 17:00 Duloxetine HCl (Cymbalta) 90 mg DAILY PO Last administered on 12/20/18 08:56; Start 12/14/18 at 17:00 Ferrous Sulfate (Feosol) 325 mg DAILYWBKFT PO Last administered on 12/20/18 08: 55; Start 12/14/18 at 17:00 Losartan Potassium (Cozaar) 100 mg DAILY PO Last administered on 12/20/18 08:57 ; Start 12/14/18 at 17:00 Memantine (Namenda) 10 mg BID PO Last administered on 12/20/18 08:57; Start at 21:00 Pantoprazole Sodium (Protonix) 40 mg DAILYAC PO Last administered on 12/20/18 06:11; Start 12/14/18 at 17:00 Ropinirole HCl (Requip) 3 mg QHS PO Last administered on 12/19/18 20:37; Start 12/14/18 at 21:00 Spironolactone (Aldactone) 25 mg DAILY PO Last administered on 12/20/18at 08:57; Start 12/14/18 at 17:00 Albuterol Sulfate (Ventolin Neb Soln) 2.5 mg Q4HRS NEB Last administered on 12/20at 07:30; Start 12/14/18 at 20:00 Sodium Chloride 1,000 ml @ 80 mls/hr [id number] IV Last administered on 12/19/18at 20:41; Start 12/14/18 at 17:15 Acetaminophen (Tylenol) 650 mg PRN Q6HRS PRN PO Pain Last administered on at 17:11; Start 12/15/18 at 04:45 Polyethylene Glycol (miraLAX Powder BULK BOTTLE) 238 gm 1X ONCE PO Last administered on 12/15/18at 12:48; Start 12/15/18 at 12:00; Stop 12/15/18 at 12:01 ; Status DC Ondansetron HCl (Zofran) 4 mg PRN Q6HRS PRN IV NAUSEA/VOMITING; Start 12/16/18 at 07:00; Stop 12/17/18 at 06:59; Status DC Fentanyl Citrate (Fentanyl 2ml Vial) 25 mcg PRN Q5MIN PRN IV MILD PAIN; Start 12/16/18 at 07:00; Stop 12/16/18 at 16:33; Status DC Fentanyl Citrate (Fentanyl 2ml Vial) 50 mcg PRN Q5MIN PRN IV MODERATE TO SEVERE PAIN; Start 12/16/18 at 07:00; Stop 12/16/18 at 16:33; Status DC Morphine Sulfate (Morphine Sulfate) 1 mg PRN Q10MIN PRN IV SEVERE PAIN; Start 12/16/18 at 07:00; Stop 12/17/18 at 06:59; Status DC Ringer's Solution 1,000 ml @ 30 mls/hr Q24H IV Last administered on 12/16/18at 13:00; Start 12/16/18 at 07:00; Stop 12/16/18 at 18:59; Status DC Lidocaine HCl (Xylocaine-Mpf 1% 2ml Vial) 2 ml PRN 1X PRN ID IV START; Start at 07:00; Stop 12/17/18 at 06:59; Status DC Hydromorphone HCl (Dilaudid) 0.5 mg PRN Q10MIN PRN IV SEV PAIN, Second choice; Start 12/16/18 at 07:00; Stop 12/17/18 at 06:59; Status DC Prochlorperazine Edisylate (Compazine) 5 mg PACU PRN PRN IV NAUSEA, MRX1; Start 12/16/18 at 07:00; Stop 12/17/18 at 06:59; Status DC Midazolam HCl (Versed) 2 mg PRN 1X PRN IV PRIOR TO PROCEDURE; Start 12/16/18 at 07:15; Stop 12/17/18 at 07:14; Status DC Fentanyl Citrate (Fentanyl 2ml Vial) 25 mcg PRN Q5MIN PRN IV X 2 DOSES FOR PAIN ; Start 12/16/18 at 07:15; Stop 12/16/18 at 16:33; Status DC Fentanyl Citrate (Fentanyl 2ml Vial) 50 mcg PRN Q5MIN PRN IV X 2 DOSES FOR PAIN ; Start 12/16/18 at 07:15; Stop 12/16/18 at 16:34; Status DC Ringer's Solution 1,000 ml @ 125 mls/hr Q8H IV ; Start 12/16/18 at 07:13; Stop 12/16/18 at 19:12; Status DC Lidocaine HCl (Xylocaine-Mpf 1% 2ml Vial) 2 ml 1X PRN PRN ID IV START; Start at 07:15; Stop 12/17/18 at 07:14; Status DC Propofol 40 ml @ As Directed STK-MED ONCE IV ; Start 12/16/18 at 13:58; Stop at 14:00; Status DC Prochlorperazine Edisylate (Compazine) 5 mg PACU PRN PRN IV NAUSEA, MRX1; Start 12/17/18 at 07:00; Stop 12/18/18 at 06:59; Status DC Hydromorphone HCl (Dilaudid) 0.5 mg PRN Q10MIN PRN IV SEV PAIN, Second choice; Start 12/17/18 at 07:00; Stop 12/18/18 at 06:59; Status DC Lidocaine HCl (Xylocaine-Mpf 1% 2ml Vial) 2 ml PRN 1X PRN ID IV START; Start at 07:00; Stop 12/18/18 at 06:59; Status DC Ringer's Solution 1,000 ml @ 30 mls/hr Q24H IV Last administered on 12/17/18at 10:34; Start 12/17/18 at 07:00; Stop 12/17/18 at 18:59; Status DC Morphine Sulfate (Morphine Sulfate) 1 mg PRN Q10MIN PRN IV SEVERE PAIN; Start 12/17/18 at 07:00; Stop 12/18/18 at 06:59; Status DC Fentanyl Citrate (Fentanyl 2ml Vial) 50 mcg PRN Q5MIN PRN IV MODERATE TO SEVERE PAIN Last administered on 12/17/18at 11:13; Start 12/17/18 at 07:00; Stop at 06:59; Status DC Fentanyl Citrate (Fentanyl 2ml Vial) 25 mcg PRN Q5MIN PRN IV MILD PAIN; Start 12/17/18 at 07:00; Stop 12/18/18 at 06:59; Status DC Ondansetron HCl (Zofran) 4 mg PRN Q6HRS PRN IV NAUSEA/VOMITING; Start 12/17/18 at 07:00; Stop 12/18/18 at 06:59; Status DC Propofol 20 ml @ As Directed STK-MED ONCE IV ; Start 12/17/18 at 07:21; Stop 12/17 at 07:23; Status DC Albuterol Sulfate (Ventolin Neb Soln) 2.5 mg 1X ONCE NEB ; Start 12/17/18 at 07: 30; Stop 12/17/18 at 07:31; Status DC Lidocaine HCl (Lidocaine Pf 2% Vial) 5 ml STK-MED ONCE .ROUTE ; Start 12/17/18 at 07:21; Stop 12/17/18 at 07:23; Status DC Succinylcholine Chloride (Anectine) 200 mg STK-MED ONCE .ROUTE ; Start 12/17/18 at 07:21; Stop 12/17/18 at 07:23; Status DC Rocuronium Gillham (Zemuron) 50 mg STK-MED ONCE .ROUTE ; Start 12/17/18 at 07:21 ; Stop 12/17/18 at 07:23; Status DC Fentanyl Citrate (Fentanyl 2ml Vial) 100 mcg STK-MED ONCE .ROUTE ; Start at 07:21; Stop 12/17/18 at 07:24; Status DC Cefazolin Sodium/ Dextrose 50 ml @ 100 mls/hr 1X ONCE IV Last administered on 12/17/18at 08:07; Start 12/17/18 at 07:45; Stop 12/17/18 at 08:18; Status DC Bupivacaine HCl/ Epinephrine Bitart (Sensorcain-Mpf Epi 0.5%-1:[id number]) 30 ml STK -MED ONCE .ROUTE Last administered on 12/17/18at 08:34; Start 12/17/18 at 07:46; Stop 12/17/18 at 07:49; Status DC Neomycin/ Polymyxin/ Bacitracin (Triple Antibiotic Ointment) 1 pkt STK-MED ONCE TP Last administered on 12/17/18at 10:07; Start 12/17/18 at 07:46; Stop 12/17/18 at 07:49; Status DC Neomycin/ Polymyxin/ Bacitracin (Triple Antibiotic Ointment) 1 pkt STK-MED ONCE TP Last administered on 12/17/18at 10:07; Start 12/17/18 at 07:46; Stop 12/17/18 at 07:49; Status DC Neomycin/ Polymyxin/ Bacitracin (Triple Antibiotic Ointment) 1 pkt STK-MED ONCE TP ; Start 12/17/18 at 07:47; Stop 12/17/18 at 07:49; Status DC Dexamethasone Sodium Phosphate (Decadron) 20 mg STK-MED ONCE .ROUTE ; Start 12/17 at 07:54; Stop 12/17/18 at 07:56; Status DC Hydrocortisone Sodium Succinate (Solu-CORTEF) 100 mg STK-MED ONCE .ROUTE ; Start 12/17/18 at 07:54; Stop 12/17/18 at 07:56; Status DC Desflurane (Suprane) 90 ml STK-MED ONCE IH ; Start 12/17/18 at 07:54; Stop at 07:56; Status DC Neostigmine Methylsulfate (Bloxiverz) 10 mg STK-MED ONCE .ROUTE ; Start 12/17/18 at 08:21; Stop 12/17/18 at 08:24; Status DC Glycopyrrolate (Robinul) 1 mg STK-MED ONCE .ROUTE ; Start 12/17/18 at 08:21; Stop 12/17/18 at 08:24; Status DC Phenylephrine HCl (Bogdan-Synephrine Inj) 10 mg STK-MED ONCE .ROUTE ; Start at 08:23; Stop 12/17/18 at 08:26; Status DC Desflurane (Suprane) 60 ml STK-MED ONCE IH ; Start 12/17/18 at 09:23; Stop at 09:26; Status DC Bupivacaine HCl/ Epinephrine Bitart (Sensorcain-Mpf Epi 0.5%-1:[id number]) 30 ml STK -MED ONCE .ROUTE Last administered on 12/17/18 10:06; Start 12/17/18 at 09:41; Stop 12/17/18 at 09:43; Status DC Morphine Sulfate (Morphine Sulfate) 2 mg PRN Q2HR PRN IV PAIN Last administered on 12/20/18 09:20; Start 12/17/18 at 10:15 Ketorolac Tromethamine (Toradol 15mg Vial) 15 mg Q6HRS IV Last administered on 12/18/18 05:39; Start 12/17/18 at 12:00; Stop 12/18/18 at 10:00; Status DC Artificial Tears (Artificial Tears) 1 drop PRN Q15MIN PRN OU DRY EYE Last administered on 12/19/18 11:00; Start 12/18/18 at 08:00 Docusate Sodium (Colace) 100 mg DAILY PO Last administered on 12/20/18 08:57; Start 12/18/18 at 10:00 Throat Lozenges (Cepacol Sore Throat Lozenge) 1 kristyn PRN Q2HRS PRN PO SORE THROAT Last administered on 12/18/18 14:03; Start 12/18/18 at 14:00 Enoxaparin Sodium (Lovenox 40mg Syringe) 40 mg Q24H SQ Last administered on 12/20 08:56; Start 12/19/18 at 09:00 Ondansetron HCl (Zofran) 4 mg PRN Q6HRS PRN IV NAUSEA/VOMITING Last administered on 2/3/19at 11:46; Start 12/19/18 at 11:30 Insulin Human Lispro (HumaLOG) 0-5 UNITS TIDWMEALS SQ ; Start 12/19/18 at 17:00 Dextrose (Dextrose 50%-Water Syringe) 12.5 gm PRN Q15MIN PRN IV SEE COMMENTS; Start 12/19/18 at 16:45 Levofloxacin/ Dextrose 100 ml @ 100 mls/hr 1X ONCE IV Last administered on 12/19/18at 20:56; Start 12/19/18 at 21:00; Stop 12/19/18 at 21:59; Status DC Active Scripts Active Chlorhexidine Gluconate 473 Ml Mouthwash 473 Ml MM BID 7 Days Vitamin C (Ascorbate Calcium) 500 Mg Tablet 500 Mg PO DAILY 30 Days Slow Release Iron (Ferrous Sulfate) 250 Mg Tablet.er 250 Mg PO DAILY 30 Days Protonix (Pantoprazole Sodium) 40 Mg Granpkt.dr 40 Mg PO DAILY 30 Days Reported Metformin Hcl Er (Metformin Hcl) 500 Mg Tab.er.24h 1 Tab PO DAILY Namenda (Memantine Hcl) 10 Mg Tablet 1 Tab PO BID Losartan Potassium 100 Mg Tablet 100 Mg PO DAILY Spironolactone 25 Mg Tablet 1 Tab PO DAILY Ventolin Hfa Inhaler (Albuterol Sulfate) 18 Gm Hfa.aer.ad 2 Puff INH Q4HRS Cymbalta (Duloxetine Hcl) 20 Mg Capsule.dr 90 Mg PO DAILY Requip (Ropinirole Hcl) 1 Mg Tablet 3 Mg PO DAILY Amlodipine Besylate 10 Mg Tablet 10 Mg PO DAILY Vitals/I & O Vital Sign - Last 24 Hours 12/19/18 12/19/18 12/19/18 12/19/18 10:54 10:58 10:59 11:00 Temp 98.1 98.1 Pulse 98 98 63 Resp 18 B/P (MAP) 127/82 127/82 143/83 (103) Pulse Ox 91 O2 Delivery Nasal Cannula Room Air O2 Flow Rate 2.0 12/19/18 12/19/18 12/19/18 12/19/18 11:53 15:00 15:03 15:42 Temp 97.9 97.9 Pulse 102 Resp 16 B/P (MAP) 135/86 (102) Pulse Ox 98 92 96 O2 Delivery Nasal Cannula Room Air Nasal Cannula Nasal Cannula O2 Flow Rate 2.0 2.0 2.0 12/19/18 12/19/18 12/19/18 12/19/18 19:00 19:35 20:05 20:15 Temp 99.3 99.3 Pulse 98 Resp 16 B/P (MAP) 134/88 (103) Pulse Ox 92 O2 Delivery Room Air Nasal Cannula Nasal Cannula Nasal Cannula O2 Flow Rate 3.0 3.0 3.0 12/19/18 12/20/18 12/20/18 12/20/18 23:00 02:24 03:00 07:00 Temp 97.9 97.7 98.4 97.9 97.7 98.4 Pulse 104 105 86 Resp 16 16 18 B/P (MAP) 144/82 (102) 137/91 (106) 147/95 (112) Pulse Ox 94 100 94 97 O2 Delivery Nasal Cannula Nasal Cannula Nasal Cannula Nasal Cannula O2 Flow Rate 3.0 3.0 3.0 3.0 12/20/18 12/20/18 12/20/18 12/20/18 07:31 08:56 08:57 09:20 Pulse 86 86 Resp 18 B/P (MAP) 147/95 147/95 Pulse Ox 98 98 O2 Delivery Nasal Cannula Nasal Cannula O2 Flow Rate 3.0 3.0 DAYLIN MILLER MD Dec 20, 2018 10:17
[2018-12-20] MEDS: IV NORMAL SALINE 1000ML BAG 1,000 ML IV SCH ×2 (10:46→23:06)
[2018-12-20] MEDS: BENZOCAINE/MENTHOL LOZENGE. PO PRN ×2 (10:55→19:46)
[2018-12-20 11:00] VITALS: BP 135/97
--- NOTE | 2018-12-20 11:18 | PDOC ---
Subjective: Subjective: Doing okay, wonders she she can go home. Ate cream of wheat. Says stooled yesterday. Some pain but meds help. Occasional SOA - says can be normal. Objective: Objective: D/w RN - wonders about some intermittent confusion/forgetfulness. Has stooled, denies pain, tolerating PO - said her abdomen feels distended - received report from night staff that abd is stable. Vital Signs: Vital Signs Date Time Temp Pulse Resp B/P (MAP) Pulse Ox O2 Delivery O2 Flow Rate FiO2 12/20/18 09:50 18 98 Nasal Cannula 3.0 12/20/18 08:57 86 147/95 12/20/18 07:00 98.4 98.4 Labs: Laboratory Tests Test 12/19/18 12:09 12/19/18 15:58 12/19/18 20:28 12/20/18 07:11 Glucose (Fingerstick) 155 mg/dL (70-99) 140 mg/dL (70-99) 170 mg/dL (70-99) 133 mg/dL (70-99) Imaging: CXR 2 Impression: Bilateral infiltrates likely discoid atelectasis. PE: GEN: NAD LUNGS: tachypneic, NC HEART: RRR ABD: some distention, quiet, doesn't seem too tender NEURO/PSYCH: A & O 3 A/P: S/p right colon resection and hemorrhoidectomy -- Continue per surgery. Monitor distention and stooling, consider KUB. ?SOA - defer to primary CLARENCE-RADHA SANTANA Dec 20, 2018 11:18
--- NOTE | 2018-12-20 12:48 | PDOC ---
[employer] 12/20/18 1247: SURGICAL PROGRESS NOTE Subjective some stool and flatus not ambulating much taking liquids, no nausea Vital Signs Vital Signs Date Time Temp Pulse Resp B/P (MAP) Pulse Ox O2 Delivery O2 Flow Rate FiO2 12/20/18 11:16 Nasal Cannula 3.0 12/20/18 09:50 18 98 12/20/18 08:57 86 147/95 12/20/18 07:00 98.4 98.4 I&O Intake and Output 12/20/18 07:01 # Voids 8 General: Alert, Oriented X3, Cooperative, No acute distress Abdomen: Soft, Other (abdomen distended) Labs Laboratory Tests Test 12/18/18 16:26 12/18/18 20:52 12/19/18 04:15 12/19/18 08:16 Glucose (Fingerstick) 148 mg/dL (70-99) 118 mg/dL (70-99) 131 mg/dL (70-99) White Blood Count 15.1 x10^3/uL (4.0-11.0) Red Blood Count 3.03 x10^6/uL (3.50-5.40) Hemoglobin 7.5 g/dL (12.0-15.5) Hematocrit 23.5 % (36.0-47.0) Mean Corpuscular Volume 78 fL (79-100) Mean Corpuscular Hemoglobin 25 pg (25-35) Mean Corpuscular Hemoglobin Concent 32 g/dL (31-37) Red Cell Distribution Width 23.8 % (11.5-14.5) Platelet Count 202 x10^3/uL (140-400) Neutrophils (%) (Auto) 85 % (31-73) Lymphocytes (%) (Auto) 8 % (24-48) Monocytes (%) (Auto) 7 % (0-9) Eosinophils (%) (Auto) 0 % (0-3) Basophils (%) (Auto) 0 % (0-3) Neutrophils # (Auto) 12.8 x10^3uL (1.8-7.7) Lymphocytes # (Auto) 1.2 x10^3/uL (1.0-4.8) Monocytes # (Auto) 1.1 x10^3/uL (0.0-1.1) Eosinophils # (Auto) 0.0 x10^3/uL (0.0-0.7) Basophils # (Auto) 0.0 x10^3/uL (0.0-0.2) Sodium Level 137 mmol/L (136-145) Potassium Level 3.8 mmol/L (3.5-5.1) Chloride Level 103 mmol/L (98-107) Carbon Dioxide Level 24 mmol/L (21-32) Anion Gap 10 (6-14) Blood Urea Nitrogen 19 mg/dL (7-20) Creatinine 0.8 mg/dL (0.6-1.0) Estimated GFR (Cockcroft-Gault) 84.8 Glucose Level 139 mg/dL (70-99) Calcium Level 9.0 mg/dL (8.5-10.1) Test 12/19/18 12:09 12/19/18 15:58 12/19/18 20:28 12/19/18 21:10 Glucose (Fingerstick) 155 mg/dL (70-99) 140 mg/dL (70-99) 170 mg/dL (70-99) Lactic Acid Level 1.2 mmol/L (0.4-2.0) Test 12/20/18 06:35 12/20/18 07:11 12/20/18 11:44 White Blood Count 3.8 x10^3/uL (4.0-11.0) Red Blood Count 3.42 x10^6/uL (3.50-5.40) Hemoglobin 8.5 g/dL (12.0-15.5) Hematocrit 26.7 % (36.0-47.0) Mean Corpuscular Volume 78 fL (79-100) Mean Corpuscular Hemoglobin 25 pg (25-35) Mean Corpuscular Hemoglobin Concent 32 g/dL (31-37) Red Cell Distribution Width 23.4 % (11.5-14.5) Platelet Count 214 x10^3/uL (140-400) Neutrophils (%) (Auto) 69 % (31-73) Lymphocytes (%) (Auto) 14 % (24-48) Monocytes (%) (Auto) 16 % (0-9) Eosinophils (%) (Auto) 0 % (0-3) Basophils (%) (Auto) 0 % (0-3) Neutrophils # (Auto) 2.7 x10^3uL (1.8-7.7) Lymphocytes # (Auto) 0.6 x10^3/uL (1.0-4.8) Monocytes # (Auto) 0.6 x10^3/uL (0.0-1.1) Eosinophils # (Auto) 0.0 x10^3/uL (0.0-0.7) Basophils # (Auto) 0.0 x10^3/uL (0.0-0.2) Sodium Level 137 mmol/L (136-145) Potassium Level 4.0 mmol/L (3.5-5.1) Chloride Level 103 mmol/L (98-107) Carbon Dioxide Level 24 mmol/L (21-32) Anion Gap 10 (6-14) Blood Urea Nitrogen 26 mg/dL (7-20) Creatinine 0.9 mg/dL (0.6-1.0) Estimated GFR (Cockcroft-Gault) 74.1 Glucose Level 154 mg/dL (70-99) Calcium Level 9.4 mg/dL (8.5-10.1) Glucose (Fingerstick) 133 mg/dL (70-99) 143 mg/dL (70-99) Laboratory Tests Test 12/19/18 15:58 12/19/18 20:28 12/19/18 21:10 12/20/18 06:35 Glucose (Fingerstick) 140 mg/dL (70-99) 170 mg/dL (70-99) Lactic Acid Level 1.2 mmol/L (0.4-2.0) White Blood Count 3.8 x10^3/uL (4.0-11.0) Red Blood Count 3.42 x10^6/uL (3.50-5.40) Hemoglobin 8.5 g/dL (12.0-15.5) Hematocrit 26.7 % (36.0-47.0) Mean Corpuscular Volume 78 fL (79-100) Mean Corpuscular Hemoglobin 25 pg (25-35) Mean Corpuscular Hemoglobin Concent 32 g/dL (31-37) Red Cell Distribution Width 23.4 % (11.5-14.5) Platelet Count 214 x10^3/uL (140-400) Neutrophils (%) (Auto) 69 % (31-73) Lymphocytes (%) (Auto) 14 % (24-48) Monocytes (%) (Auto) 16 % (0-9) Eosinophils (%) (Auto) 0 % (0-3) Basophils (%) (Auto) 0 % (0-3) Neutrophils # (Auto) 2.7 x10^3uL (1.8-7.7) Lymphocytes # (Auto) 0.6 x10^3/uL (1.0-4.8) Monocytes # (Auto) 0.6 x10^3/uL (0.0-1.1) Eosinophils # (Auto) 0.0 x10^3/uL (0.0-0.7) Basophils # (Auto) 0.0 x10^3/uL (0.0-0.2) Sodium Level 137 mmol/L (136-145) Potassium Level 4.0 mmol/L (3.5-5.1) Chloride Level 103 mmol/L (98-107) Carbon Dioxide Level 24 mmol/L (21-32) Anion Gap 10 (6-14) Blood Urea Nitrogen 26 mg/dL (7-20) Creatinine 0.9 mg/dL (0.6-1.0) Estimated GFR (Cockcroft-Gault) 74.1 Glucose Level 154 mg/dL (70-99) Calcium Level 9.4 mg/dL (8.5-10.1) Test 12/20/18 07:11 12/20/18 11:44 Glucose (Fingerstick) 133 mg/dL (70-99) 143 mg/dL (70-99) Assessment/Plan s/p resection await improved bowel function before advancing diet increase her activity to help with ileus DAYLIN WEI MD 12/20/18 1416: SURGICAL PROGRESS NOTE Assessment/Plan Agree with Lisandra's assessment and plan ABRAHAM WEBER APRN Dec 20, 2018 12:47 DAYLIN WEI MD Dec 20, 2018 14:16
--- NOTE | 2018-12-20 13:36 | RAD ---
Indication:ABD DISTENTION POST OP TECHNIQUE:AP chest and 2 views of the abdomen and pelvis COMPARISON: None FINDINGS: Heart is normal in size. 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 Stable prominent bronchial markings most likely chronic changes. No pneumothorax. No large pneumoperitoneum. Diffusely dilated small bowel loops are seen. Visualized bones are within normal limits. IMPRESSION: Diffusely dilated small bowel loops may be secondary to postop ileus or distal obstruction. Follow-up KUB recommended. Electronically signed by: Gabe Madden DO (12/20/2018 1:31 PM) [id number]
--- NOTE | 2018-12-20 14:02 | PDOC ---
Infectious Disease Note Vital Sign Vital Signs Vital Signs Date Time Temp Pulse Resp B/P (MAP) Pulse Ox O2 Delivery O2 Flow Rate FiO2 12/20/18 11:16 Nasal Cannula 3.0 12/20/18 11:00 97.9 88 18 135/97 (110) 97 97.9 Labs Lab Laboratory Tests Test 12/19/18 15:58 12/19/18 20:28 12/19/18 21:10 12/20/18 06:35 Glucose (Fingerstick) 140 mg/dL (70-99) 170 mg/dL (70-99) Lactic Acid Level 1.2 mmol/L (0.4-2.0) White Blood Count 3.8 x10^3/uL (4.0-11.0) Red Blood Count 3.42 x10^6/uL (3.50-5.40) Hemoglobin 8.5 g/dL (12.0-15.5) Hematocrit 26.7 % (36.0-47.0) Mean Corpuscular Volume 78 fL (79-100) Mean Corpuscular Hemoglobin 25 pg (25-35) Mean Corpuscular Hemoglobin Concent 32 g/dL (31-37) Red Cell Distribution Width 23.4 % (11.5-14.5) Platelet Count 214 x10^3/uL (140-400) Neutrophils (%) (Auto) 69 % (31-73) Lymphocytes (%) (Auto) 14 % (24-48) Monocytes (%) (Auto) 16 % (0-9) Eosinophils (%) (Auto) 0 % (0-3) Basophils (%) (Auto) 0 % (0-3) Neutrophils # (Auto) 2.7 x10^3uL (1.8-7.7) Lymphocytes # (Auto) 0.6 x10^3/uL (1.0-4.8) Monocytes # (Auto) 0.6 x10^3/uL (0.0-1.1) Eosinophils # (Auto) 0.0 x10^3/uL (0.0-0.7) Basophils # (Auto) 0.0 x10^3/uL (0.0-0.2) Sodium Level 137 mmol/L (136-145) Potassium Level 4.0 mmol/L (3.5-5.1) Chloride Level 103 mmol/L (98-107) Carbon Dioxide Level 24 mmol/L (21-32) Anion Gap 10 (6-14) Blood Urea Nitrogen 26 mg/dL (7-20) Creatinine 0.9 mg/dL (0.6-1.0) Estimated GFR (Cockcroft-Gault) 74.1 Glucose Level 154 mg/dL (70-99) Calcium Level 9.4 mg/dL (8.5-10.1) Test 12/20/18 07:11 12/20/18 11:44 Glucose (Fingerstick) 133 mg/dL (70-99) 143 mg/dL (70-99) Objective Assessment ? Sepsis Leukocytosis yesterday and leukopenia today, no fever S/P rt hemicolectomy COPD Plan Plan of Care repeat cbc if abnormal then may need further workup d/w DENI Paulino MD Dec 20, 2018 14:02
[2018-12-20 15:00] VITALS: BP 127/87
[2018-12-20 15:03] LABS: BASO % 0 % (0-3); EOS % 0 % (0-3); HEMOGLOBIN 8.5 g/dL (12.0-15.5); LYMPH # 0.5 x10^3/uL (1.0-4.8); LYMPH % 14 % (24-48); MEAN CORPUSCULAR HEMOGLOBIN 25 pg (25-35); MEAN CORPUSCULAR HGB CONC 32 g/dL (31-37); MEAN CORPUSCULAR VOLUME 78 fL (79-100); MONO # 0.7 x10^3/uL (0.0-1.1); MONO % 18 % (0-9); NEUT # 2.7 x10^3uL (1.8-7.7); NEUT % 68 % (31-73); PLATELET COUNT 217 x10^3/uL (140-400); RED BLOOD COUNT 3.46 x10^6/uL (3.50-5.40); RED CELL DISTRIBUTION WIDTH 23.4 % (11.5-14.5); WHITE BLOOD COUNT 3.9 x10^3/uL (4.0-11.0)
--- NOTE | 2018-12-20 15:07 | NUR ---
SW following for discharge planning. Discussed with RN, pt is on full liquids. PT/OT recommending SNU. LATANYA met with pt and pt's family, Jorge to discuss discharge planning. Pt does not want to go to long term. Pt would like to discharge home to her daughter's home with home health. Pt will need home health for PT/OT/RN. Daughter's address [address] [place] [address], [place], [address]. SW to fax paperwork to home health at discharge. RN notified. LATANYA will continue to follow.
--- NOTE | 2018-12-20 17:09 | PATHOLOGY ---
[facility] Accession Number: [id number] . 01 Material submitted: . PART A: CECUM PART B: HEMORRHOIDS . 01 Clinical history: . Cecal ulcer/anemia . 02 Diagnosis: A. 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 - Three mesocolic lymph nodes showing focal reactive changes - negative for tumor. - Focal superficial mucosal erosion and slight acute inflammation of appendix. . B. Segments of skin and anorectal mucosa and underlying fibromuscular tissue, hemorrhoidectomy: - Hemorrhoids, showing focal organizing thrombosis and chronic inflammation. (JPM:[facility] 12/20/2018) QTP/12/20/2018 . 02 Comment: There is no evidence of malignancy. . 02 Electronically signed: . Scott Lee MD, Pathologist NPI- [id number] . 01 Gross description: . A. The specimen is received in formalin, labeled "Helaire, Elizebeath, cecum" and consists of a segment of colon measuring 9.0 cm in length and approximately 6.0 cm in diameter with appendix measuring 8.0 cm in length and ranging from 0.5-0.8 cm in diameter. There is pericolic fat measuring up to 4.0 cm. Both margins are closed with salvador. The serosa is monahan-brown with edematous adhesions. Opening reveals a pink-brown mucosa with attached metallic clip at a site of ulceration measuring 0.5 x 0.5 cm. There is a brown nodule measuring 0.3 x 0.2 cm that extends 2.5 cm from the distal margin and 3.5 cm from the proximal margin. No additional masses or lesions are identified. The appendix serosa is monahan with focal hemorrhagic adhesions. Sectioning reveals a focally dilated lumen (up to 0.5 cm) containing fecal material. No mucosal lesions are identified. Present within the pericolic fat are a few lymph node candidates ranging from 0.3 cm to 0.8 cm. Tire Fabric Inspector sections are submitted as follows: . A1: Proximal margin A2: Distal margin A3: Mucosa at site of attached metallic clip A4: Appendix A5: Nodule A6: 3 bisected lymph node candidates, 2 differentially . B. The specimen is received in formalin, labeled "Helaire, Elizebeath, hemorrhoids" and consists of 3 segments of meza-monhaan skin/mucosa covered tissue measuring between 3.3 x 2.8 x 1.2 cm and 5.4 x 2.5 x 1.6 cm. Sectioning reveals dilated vascular spaces containing blood clot and a retail representative section from each is submitted in B1-B2. (SDY; 12/18/2018) SYU/SYU . 02 Pathologist provided ICD-10: K63.3, K52.9, K35.80, K64.5 . 02 CPT . 384559, 447534 Specimen Comment: A courtesy copy of this report has been sent to Specimen Comment: [phone], , , . Specimen Comment: Report sent to ,DR MILLER,DR WHALEN / DR TREJO Specimen Comment: A duplicate report has been generated due to demographic updates. Performed at: 01 [facility] [address], [place], [place] [id number] MD Stefan Tai MD Phone: [phone] Performed at: 02 [facility] [address] [place], [place] [id number] MD Scott Lee MD Phone: [phone]
[2018-12-20 19:00] VITALS: BP 131/94
--- NOTE | 2018-12-20 19:47 | CONS ---
DATE OF CONSULTATION: 12/20/2018 CONSULTING PHYSICIAN: Dr. Ball. REASON FOR CONSULTATION: Possible sepsis. HISTORY OF PRESENT ILLNESS: This is a 72-year-old -English female with history of COPD, who came in with a GI bleed. The patient had workup done including colonoscopy and found to have bleeding ulcer in the colon. The patient underwent a right hemicolectomy on 12/17/2018. The patient's hospital course was uncomplicated after that until yesterday. The patient is not on any antibiotics. In fact, her white count went up to 18,000 on 12/18/2018, came down to 15 and now down to 3.8. Yesterday, they were concerned for whatever reason, either tachycardia or since there is no fever I see, the patient was given a dose of Levaquin and consult has been requested. The patient is alert, awake and appropriate. She was sitting in the chair. I got her to go to the bed to examine her and she is not in any distress. The patient says she is feeling pretty good. She does have slight nausea and slight abdominal post-surgical pain, but no other problem. She is eating. She is pooping normal. She denies any sore throat, denies any headache, denies any chest pain, shortness of breath, urinary symptoms. PAST MEDICAL HISTORY: Positive for COPD, the patient is on home oxygen, she still smokes; hypertension, asthma and now the surgery. SOCIAL HISTORY: Positive for smoking, social alcohol use, no drug use. ALLERGIES: LISTED ALLERGIC TO PENICILLIN. SHE DOES NOT KNOW WHAT HAPPENED WHEN SHE WAS A CHILD. REVIEW OF SYSTEMS: As per HPI, all other systems reviewed are negative. PHYSICAL EXAMINATION: GENERAL: Alert, oriented female, not in distress. VITAL SIGNS: Stable. The patient has a T-max of 99.3. HEENT: NAD. NECK: Supple, no JVP, no lymphadenopathy. LUNGS: Clear. HEART: S1, S2 regular. ABDOMEN: Benign. The patient's incisions are well approximated without any signs of infection. There is no tenderness, rebound or guarding. No organomegaly. EXTREMITIES: No edema or cyanosis. SKIN: Unremarkable. NEUROLOGIC: The patient is neurologically intact. CURRENT MEDICATIONS: Reviewed. LABORATORY DATA: As I mentioned, creatinine is normal. Her CT and x-ray reviewed. IMPRESSION: 1. Gastrointestinal bleed, status post right hemicolectomy. 2. Leukocytosis post surgery was secondary to steroids that she received in operating room, although rebound leukopenia is concerning. It may have been a lab error and/or medication induced, it is unclear. The patient does not look septic, does not have sickness or any significant fever. The patient is even walking. I do not see the need for any antibiotics right now. I would repeat first CBC and see where we are at and then it may demand any more investigation if significantly abnormal. If she does have fever, I would start with the blood culture and then would initiate the antibiotics. Discussion with the patient's nurse as well as discussed with the patient's son at the bedside. Thank you very much, Dr. Ball, for giving me the opportunity to participate in this patient's care. DENI SALINAS MD DR: RAZ/courtney JOB#: [id number] / [id number]
[2018-12-20] MEDS: ACETAMINOPHEN 325 MG TABLET. PO PRN (21:27)
[2018-12-20] MEDS: POLYVINYL ALCOHOL 1.4% OPHTH SOLUTION 15ML BOTTLE. OU PRN (21:28)
[2018-12-20] MEDS: ONDANSETRON PF 4 MG/2 ML VIAL. IV PRN (21:28)
[2018-12-20] MEDS: rOPINIRole 1 MG TABLET. PO SCH (21:29)
[2018-12-20 23:00] VITALS: BP 144/84
[2018-12-21] MEDS: ALBUTEROL SULFATE 2.5 MG/3 ML NEBU. NEB SCH ×6 (00:21→19:14)
[2018-12-21 03:00] VITALS: BP 140/84
[2018-12-21 05:42] LABS: BASO % 0 % (0-3); EOS % 0 % (0-3); HEMATOCRIT 25.8 % (36.0-47.0); HEMOGLOBIN 8.3 g/dL (12.0-15.5); LYMPH # 0.4 x10^3/uL (1.0-4.8); LYMPH % 14 % (24-48); MEAN CORPUSCULAR HEMOGLOBIN 25 pg (25-35); MEAN CORPUSCULAR HGB CONC 32 g/dL (31-37); MEAN CORPUSCULAR VOLUME 77 fL (79-100); MONO # 0.4 x10^3/uL (0.0-1.1); MONO % 12 % (0-9); NEUT # 2.3 x10^3uL (1.8-7.7); NEUT % 74 % (31-73); PLATELET COUNT 215 x10^3/uL (140-400); RED BLOOD COUNT 3.34 x10^6/uL (3.50-5.40); RED CELL DISTRIBUTION WIDTH 23.6 % (11.5-14.5); WHITE BLOOD COUNT 3.1 x10^3/uL (4.0-11.0)
[2018-12-21 05:46] LABS: ALBUMIN 2.6 g/dL (3.4-5.0); ALBUMIN/GLOBULIN RATIO 0.6 (1.0-1.7); CALCIUM 9.3 mg/dL (8.5-10.1); CREATININE 1.1 mg/dL (0.6-1.0); GFR 58.7; TOTAL BILIRUBIN 0.4 mg/dL (0.2-1.0); TOTAL PROTEIN 6.7 g/dL (6.4-8.2)
[2018-12-21 07:00] VITALS: BP 141/90
[2018-12-21] MEDS: INSULIN LISPRO 300 UNITS/3 ML INSULN.PEN. SQ SCH ×3 (08:00→16:37)
--- NOTE | 2018-12-21 08:17 | PDOC ---
ABRAHAM WEBER [employer] 12/21/18 0817: SURGICAL PROGRESS NOTE Subjective nauseated after meals some increased SOA no flatus tight abdomen Vital Signs Vital Signs Date Time Temp Pulse Resp B/P (MAP) Pulse Ox O2 Delivery O2 Flow Rate FiO2 12/21/18 07:04 95 Nasal Cannula 3.0 12/21/18 07:00 97.6 91 18 141/90 (107) 97.6 I&O Intake and Output 12/21/18 07:01 Intake Total 795 ml Balance 795 ml Intake Oral 795 ml # Voids 6 General: Alert, Oriented X3, Cooperative, No acute distress Abdomen: Other (distended, lap dressings in place) Labs Laboratory Tests Test 12/19/18 08:16 12/19/18 12:09 12/19/18 15:58 12/19/18 20:28 Glucose (Fingerstick) 131 mg/dL (70-99) 155 mg/dL (70-99) 140 mg/dL (70-99) 170 mg/dL (70-99) Test 12/19/18 21:10 12/20/18 06:35 12/20/18 07:11 12/20/18 11:44 Lactic Acid Level 1.2 mmol/L (0.4-2.0) White Blood Count 3.8 x10^3/uL (4.0-11.0) Red Blood Count 3.42 x10^6/uL (3.50-5.40) Hemoglobin 8.5 g/dL (12.0-15.5) Hematocrit 26.7 % (36.0-47.0) Mean Corpuscular Volume 78 fL (79-100) Mean Corpuscular Hemoglobin 25 pg (25-35) Mean Corpuscular Hemoglobin Concent 32 g/dL (31-37) Red Cell Distribution Width 23.4 % (11.5-14.5) Platelet Count 214 x10^3/uL (140-400) Neutrophils (%) (Auto) 69 % (31-73) Lymphocytes (%) (Auto) 14 % (24-48) Monocytes (%) (Auto) 16 % (0-9) Eosinophils (%) (Auto) 0 % (0-3) Basophils (%) (Auto) 0 % (0-3) Neutrophils # (Auto) 2.7 x10^3uL (1.8-7.7) Lymphocytes # (Auto) 0.6 x10^3/uL (1.0-4.8) Monocytes # (Auto) 0.6 x10^3/uL (0.0-1.1) Eosinophils # (Auto) 0.0 x10^3/uL (0.0-0.7) Basophils # (Auto) 0.0 x10^3/uL (0.0-0.2) Sodium Level 137 mmol/L (136-145) Potassium Level 4.0 mmol/L (3.5-5.1) Chloride Level 103 mmol/L (98-107) Carbon Dioxide Level 24 mmol/L (21-32) Anion Gap 10 (6-14) Blood Urea Nitrogen 26 mg/dL (7-20) Creatinine 0.9 mg/dL (0.6-1.0) Estimated GFR (Cockcroft-Gault) 74.1 Glucose Level 154 mg/dL (70-99) Calcium Level 9.4 mg/dL (8.5-10.1) Procalcitonin 0.27 ng/mL (0.00-0.10) Glucose (Fingerstick) 133 mg/dL (70-99) 143 mg/dL (70-99) Test 12/20/18 14:45 12/20/18 16:43 12/20/18 20:51 12/21/18 04:40 White Blood Count 3.9 x10^3/uL (4.0-11.0) 3.1 x10^3/uL (4.0-11.0) Red Blood Count 3.46 x10^6/uL (3.50-5.40) 3.34 x10^6/uL (3.50-5.40) Hemoglobin 8.5 g/dL (12.0-15.5) 8.3 g/dL (12.0-15.5) Hematocrit 27.0 % (36.0-47.0) 25.8 % (36.0-47.0) Mean Corpuscular Volume 78 fL (79-100) 77 fL (79-100) Mean Corpuscular Hemoglobin 25 pg (25-35) 25 pg (25-35) Mean Corpuscular Hemoglobin Concent 32 g/dL (31-37) 32 g/dL (31-37) Red Cell Distribution Width 23.4 % (11.5-14.5) 23.6 % (11.5-14.5) Platelet Count 217 x10^3/uL (140-400) 215 x10^3/uL (140-400) Neutrophils (%) (Auto) 68 % (31-73) 74 % (31-73) Lymphocytes (%) (Auto) 14 % (24-48) 14 % (24-48) Monocytes (%) (Auto) 18 % (0-9) 12 % (0-9) Eosinophils (%) (Auto) 0 % (0-3) 0 % (0-3) Basophils (%) (Auto) 0 % (0-3) 0 % (0-3) Neutrophils # (Auto) 2.7 x10^3uL (1.8-7.7) 2.3 x10^3uL (1.8-7.7) Lymphocytes # (Auto) 0.5 x10^3/uL (1.0-4.8) 0.4 x10^3/uL (1.0-4.8) Monocytes # (Auto) 0.7 x10^3/uL (0.0-1.1) 0.4 x10^3/uL (0.0-1.1) Eosinophils # (Auto) 0.0 x10^3/uL (0.0-0.7) 0.0 x10^3/uL (0.0-0.7) Basophils # (Auto) 0.0 x10^3/uL (0.0-0.2) 0.0 x10^3/uL (0.0-0.2) Glucose (Fingerstick) 144 mg/dL (70-99) 151 mg/dL (70-99) Sodium Level 140 mmol/L (136-145) Potassium Level 4.0 mmol/L (3.5-5.1) Chloride Level 103 mmol/L (98-107) Carbon Dioxide Level 25 mmol/L (21-32) Anion Gap 12 (6-14) Blood Urea Nitrogen 34 mg/dL (7-20) Creatinine 1.1 mg/dL (0.6-1.0) Estimated GFR (Cockcroft-Gault) 58.7 BUN/Creatinine Ratio 31 (6-20) Glucose Level 157 mg/dL (70-99) Calcium Level 9.3 mg/dL (8.5-10.1) Total Bilirubin 0.4 mg/dL (0.2-1.0) Aspartate Amino Transf (AST/SGOT) 12 U/L (15-37) Alanine Aminotransferase (ALT/SGPT) 12 U/L (14-59) Alkaline Phosphatase 54 U/L (46-116) Total Protein 6.7 g/dL (6.4-8.2) Albumin 2.6 g/dL (3.4-5.0) Albumin/Globulin Ratio 0.6 (1.0-1.7) Test 12/21/18 07:36 Glucose (Fingerstick) 170 mg/dL (70-99) Laboratory Tests Test 12/20/18 11:44 12/20/18 14:45 12/20/18 16:43 12/20/18 20:51 Glucose (Fingerstick) 143 mg/dL (70-99) 144 mg/dL (70-99) 151 mg/dL (70-99) White Blood Count 3.9 x10^3/uL (4.0-11.0) Red Blood Count 3.46 x10^6/uL (3.50-5.40) Hemoglobin 8.5 g/dL (12.0-15.5) Hematocrit 27.0 % (36.0-47.0) Mean Corpuscular Volume 78 fL (79-100) Mean Corpuscular Hemoglobin 25 pg (25-35) Mean Corpuscular Hemoglobin Concent 32 g/dL (31-37) Red Cell Distribution Width 23.4 % (11.5-14.5) Platelet Count 217 x10^3/uL (140-400) Neutrophils (%) (Auto) 68 % (31-73) Lymphocytes (%) (Auto) 14 % (24-48) Monocytes (%) (Auto) 18 % (0-9) Eosinophils (%) (Auto) 0 % (0-3) Basophils (%) (Auto) 0 % (0-3) Neutrophils # (Auto) 2.7 x10^3uL (1.8-7.7) Lymphocytes # (Auto) 0.5 x10^3/uL (1.0-4.8) Monocytes # (Auto) 0.7 x10^3/uL (0.0-1.1) Eosinophils # (Auto) 0.0 x10^3/uL (0.0-0.7) Basophils # (Auto) 0.0 x10^3/uL (0.0-0.2) Test 12/21/18 04:40 12/21/18 07:36 White Blood Count 3.1 x10^3/uL (4.0-11.0) Red Blood Count 3.34 x10^6/uL (3.50-5.40) Hemoglobin 8.3 g/dL (12.0-15.5) Hematocrit 25.8 % (36.0-47.0) Mean Corpuscular Volume 77 fL (79-100) Mean Corpuscular Hemoglobin 25 pg (25-35) Mean Corpuscular Hemoglobin Concent 32 g/dL (31-37) Red Cell Distribution Width 23.6 % (11.5-14.5) Platelet Count 215 x10^3/uL (140-400) Neutrophils (%) (Auto) 74 % (31-73) Lymphocytes (%) (Auto) 14 % (24-48) Monocytes (%) (Auto) 12 % (0-9) Eosinophils (%) (Auto) 0 % (0-3) Basophils (%) (Auto) 0 % (0-3) Neutrophils # (Auto) 2.3 x10^3uL (1.8-7.7) Lymphocytes # (Auto) 0.4 x10^3/uL (1.0-4.8) Monocytes # (Auto) 0.4 x10^3/uL (0.0-1.1) Eosinophils # (Auto) 0.0 x10^3/uL (0.0-0.7) Basophils # (Auto) 0.0 x10^3/uL (0.0-0.2) Sodium Level 140 mmol/L (136-145) Potassium Level 4.0 mmol/L (3.5-5.1) Chloride Level 103 mmol/L (98-107) Carbon Dioxide Level 25 mmol/L (21-32) Anion Gap 12 (6-14) Blood Urea Nitrogen 34 mg/dL (7-20) Creatinine 1.1 mg/dL (0.6-1.0) Estimated GFR (Cockcroft-Gault) 58.7 BUN/Creatinine Ratio 31 (6-20) Glucose Level 157 mg/dL (70-99) Calcium Level 9.3 mg/dL (8.5-10.1) Total Bilirubin 0.4 mg/dL (0.2-1.0) Aspartate Amino Transf (AST/SGOT) 12 U/L (15-37) Alanine Aminotransferase (ALT/SGPT) 12 U/L (14-59) Alkaline Phosphatase 54 U/L (46-116) Total Protein 6.7 g/dL (6.4-8.2) Albumin 2.6 g/dL (3.4-5.0) Albumin/Globulin Ratio 0.6 (1.0-1.7) Glucose (Fingerstick) 170 mg/dL (70-99) Problem List npo, await improved bowel function abdomen distended, consider NG if worsening or n/v soa defer to IPC DAYLIN WEI MD 12/21/18 1632: SURGICAL PROGRESS NOTE Assessment/Plan Agree with Germania assessment and plan ABRAHAM WEBER APRN Dec 21, 2018 08:17 DAYLIN WEI MD Dec 21, 2018 16:32
[2018-12-21] MEDS: CHLORHEXIDINE 0.12% 15 ML MOUTHWASH. MM SCH ×2 (08:45→22:01)
[2018-12-21] MEDS: FERROUS SULFATE 325 MG TABLET. PO SCH (08:46)
[2018-12-21] MEDS: ASCORBIC ACID 500 MG TABLET PO SCH (08:46)
[2018-12-21] MEDS: LOSARTAN POTASSIUM 50 MG TABLET. PO SCH (08:47)
[2018-12-21] MEDS: MEMANTINE 10 MG TABLET. PO SCH ×2 (08:48→22:02)
[2018-12-21] MEDS: DULoxetine HCL 30 MG CAPSULE.DR PO SCH (08:48)
[2018-12-21] MEDS: PANTOPRAZOLE 40 MG TABLET.DR. PO SCH (08:48)
[2018-12-21] MEDS: DOCUSATE SODIUM 100 MG CAPSULE. PO SCH (08:48)
[2018-12-21] MEDS: SPIRONOLACTONE 25 MG TABLET PO SCH (08:49)
[2018-12-21] MEDS: amLODIPine BESYLATE 10 MG TABLET PO SCH (08:49)
[2018-12-21] MEDS: ENOXAPARIN 40 MG/0.4 ML SYRINGE. SQ SCH (08:51)
[2018-12-21] MEDS: IV NORMAL SALINE 1000ML BAG 1,000 ML IV SCH ×3 (08:58→23:46)
--- NOTE | 2018-12-21 09:35 | PDOC ---
Infectious Disease Note Subjective Subjective sob, no BM, abd distention tachypneic ROS ROS no n/v/d/fever Vital Sign Vital Signs Vital Signs Date Time Temp Pulse Resp B/P (MAP) Pulse Ox O2 Delivery O2 Flow Rate FiO2 12/21/18 08:49 91 141/90 12/21/18 07:04 95 Nasal Cannula 3.0 12/21/18 07:00 97.6 18 97.6 Physical Exam PHYSICAL EXAM GENERAL: Alert, oriented female, not in distress. VITAL SIGNS: Stable. tachypneic HEENT: NAD. NECK: Supple, no JVP, no lymphadenopathy. LUNGS: Clear. HEART: S1, S2 regular. ABDOMEN: Benign. The patient's incisions are well approximated without any signs of infection. There is no tenderness, rebound or guarding. No organomegaly. EXTREMITIES: No edema or cyanosis. SKIN: Unremarkable. NEUROLOGIC: The patient is neurologically intact. Labs Lab Laboratory Tests Test 12/20/18 11:44 12/20/18 14:45 12/20/18 16:43 12/20/18 20:51 Glucose (Fingerstick) 143 mg/dL (70-99) 144 mg/dL (70-99) 151 mg/dL (70-99) White Blood Count 3.9 x10^3/uL (4.0-11.0) Red Blood Count 3.46 x10^6/uL (3.50-5.40) Hemoglobin 8.5 g/dL (12.0-15.5) Hematocrit 27.0 % (36.0-47.0) Mean Corpuscular Volume 78 fL (79-100) Mean Corpuscular Hemoglobin 25 pg (25-35) Mean Corpuscular Hemoglobin Concent 32 g/dL (31-37) Red Cell Distribution Width 23.4 % (11.5-14.5) Platelet Count 217 x10^3/uL (140-400) Neutrophils (%) (Auto) 68 % (31-73) Lymphocytes (%) (Auto) 14 % (24-48) Monocytes (%) (Auto) 18 % (0-9) Eosinophils (%) (Auto) 0 % (0-3) Basophils (%) (Auto) 0 % (0-3) Neutrophils # (Auto) 2.7 x10^3uL (1.8-7.7) Lymphocytes # (Auto) 0.5 x10^3/uL (1.0-4.8) Monocytes # (Auto) 0.7 x10^3/uL (0.0-1.1) Eosinophils # (Auto) 0.0 x10^3/uL (0.0-0.7) Basophils # (Auto) 0.0 x10^3/uL (0.0-0.2) Test 12/21/18 04:40 12/21/18 07:36 White Blood Count 3.1 x10^3/uL (4.0-11.0) Red Blood Count 3.34 x10^6/uL (3.50-5.40) Hemoglobin 8.3 g/dL (12.0-15.5) Hematocrit 25.8 % (36.0-47.0) Mean Corpuscular Volume 77 fL (79-100) Mean Corpuscular Hemoglobin 25 pg (25-35) Mean Corpuscular Hemoglobin Concent 32 g/dL (31-37) Red Cell Distribution Width 23.6 % (11.5-14.5) Platelet Count 215 x10^3/uL (140-400) Neutrophils (%) (Auto) 74 % (31-73) Lymphocytes (%) (Auto) 14 % (24-48) Monocytes (%) (Auto) 12 % (0-9) Eosinophils (%) (Auto) 0 % (0-3) Basophils (%) (Auto) 0 % (0-3) Neutrophils # (Auto) 2.3 x10^3uL (1.8-7.7) Lymphocytes # (Auto) 0.4 x10^3/uL (1.0-4.8) Monocytes # (Auto) 0.4 x10^3/uL (0.0-1.1) Eosinophils # (Auto) 0.0 x10^3/uL (0.0-0.7) Basophils # (Auto) 0.0 x10^3/uL (0.0-0.2) Sodium Level 140 mmol/L (136-145) Potassium Level 4.0 mmol/L (3.5-5.1) Chloride Level 103 mmol/L (98-107) Carbon Dioxide Level 25 mmol/L (21-32) Anion Gap 12 (6-14) Blood Urea Nitrogen 34 mg/dL (7-20) Creatinine 1.1 mg/dL (0.6-1.0) Estimated GFR (Cockcroft-Gault) 58.7 BUN/Creatinine Ratio 31 (6-20) Glucose Level 157 mg/dL (70-99) Calcium Level 9.3 mg/dL (8.5-10.1) Total Bilirubin 0.4 mg/dL (0.2-1.0) Aspartate Amino Transf (AST/SGOT) 12 U/L (15-37) Alanine Aminotransferase (ALT/SGPT) 12 U/L (14-59) Alkaline Phosphatase 54 U/L (46-116) Total Protein 6.7 g/dL (6.4-8.2) Albumin 2.6 g/dL (3.4-5.0) Albumin/Globulin Ratio 0.6 (1.0-1.7) Glucose (Fingerstick) 170 mg/dL (70-99) Micro Microbiology 12/19/18 Blood Culture - Preliminary, Resulted NO GROWTH AFTER 1 DAY Objective Assessment ? Sepsis,, Leukocytosis post surgery and leukopenia now, no fever S/P rt hemicolectomy COPD Plan Plan of Care bc cxr abg start cefepime supportive care lactic acid DENI SALINAS MD Dec 21, 2018 09:35
[2018-12-21] MEDS ORDERED: IV NORMAL SALINE 1000ML BAG 1,000 ML IV ONE (09:45)
--- NOTE | 2018-12-21 09:50 | PDOC ---
Subjective: Subjective: Disappointed to be only getting ice chips. Not passing gas, feels bloated. Objective: Vital Signs: Vital Signs Date Time Temp Pulse Resp B/P (MAP) Pulse Ox O2 Delivery O2 Flow Rate FiO2 12/21/18 08:49 91 141/90 12/21/18 07:04 95 Nasal Cannula 3.0 12/21/18 07:00 97.6 18 97.6 Labs: Laboratory Tests Test 12/20/18 11:44 12/20/18 14:45 12/20/18 16:43 12/20/18 20:51 Glucose (Fingerstick) 143 mg/dL 144 mg/dL 151 mg/dL White Blood Count 3.9 x10^3/uL Red Blood Count 3.46 x10^6/uL Hemoglobin 8.5 g/dL Hematocrit 27.0 % Mean Corpuscular Volume 78 fL Mean Corpuscular Hemoglobin 25 pg Mean Corpuscular Hemoglobin Concent 32 g/dL Red Cell Distribution Width 23.4 % Platelet Count 217 x10^3/uL Neutrophils (%) (Auto) 68 % Lymphocytes (%) (Auto) 14 % Monocytes (%) (Auto) 18 % Eosinophils (%) (Auto) 0 % Basophils (%) (Auto) 0 % Neutrophils # (Auto) 2.7 x10^3uL Lymphocytes # (Auto) 0.5 x10^3/uL Monocytes # (Auto) 0.7 x10^3/uL Eosinophils # (Auto) 0.0 x10^3/uL Basophils # (Auto) 0.0 x10^3/uL Test 12/21/18 04:40 12/21/18 07:36 White Blood Count 3.1 x10^3/uL Red Blood Count 3.34 x10^6/uL Hemoglobin 8.3 g/dL Hematocrit 25.8 % Mean Corpuscular Volume 77 fL Mean Corpuscular Hemoglobin 25 pg Mean Corpuscular Hemoglobin Concent 32 g/dL Red Cell Distribution Width 23.6 % Platelet Count 215 x10^3/uL Neutrophils (%) (Auto) 74 % Lymphocytes (%) (Auto) 14 % Monocytes (%) (Auto) 12 % Eosinophils (%) (Auto) 0 % Basophils (%) (Auto) 0 % Neutrophils # (Auto) 2.3 x10^3uL Lymphocytes # (Auto) 0.4 x10^3/uL Monocytes # (Auto) 0.4 x10^3/uL Eosinophils # (Auto) 0.0 x10^3/uL Basophils # (Auto) 0.0 x10^3/uL Sodium Level 140 mmol/L Potassium Level 4.0 mmol/L Chloride Level 103 mmol/L Carbon Dioxide Level 25 mmol/L Anion Gap 12 Blood Urea Nitrogen 34 mg/dL Creatinine 1.1 mg/dL Estimated GFR (Cockcroft-Gault) 58.7 BUN/Creatinine Ratio 31 Glucose Level 157 mg/dL Calcium Level 9.3 mg/dL Total Bilirubin 0.4 mg/dL Aspartate Amino Transf (AST/SGOT) 12 U/L Alanine Aminotransferase (ALT/SGPT) 12 U/L Alkaline Phosphatase 54 U/L Total Protein 6.7 g/dL Albumin 2.6 g/dL Albumin/Globulin Ratio 0.6 Glucose (Fingerstick) 170 mg/dL Material submitted: . PART A: CECUM PART B: HEMORRHOIDS Clinical history: . Cecal ulcer/anemia Diagnosis: A. 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 - Three mesocolic lymph nodes showing focal reactive changes - negative for tumor. - Focal superficial mucosal erosion and slight acute inflammation of appendix. B. Segments of skin and anorectal mucosa and underlying fibromuscular tissue, hemorrhoidectomy: - Hemorrhoids, showing focal organizing thrombosis and chronic inflammation. Comment: There is no evidence of malignancy. Imaging: Acute Abd Series 12/20/18 IMPRESSION: Diffusely dilated small bowel loops may be secondary to postop ileus or distal obstruction. Follow-up KUB recommended. PE: GEN: NAD, up to chair LUNGS: NC HEART: RRR ABD: distended, quiet, not particularly tender NEURO/PSYCH: A & O 3, quiet A/P: S/p right colon resection and hemorrhoidectomy - ileus VISHNU -- Continue per surgery - NPO w/ ice chips for now. RADHA JUSTICE Dec 21, 2018 09:50
--- NOTE | 2018-12-21 10:22 | RAD ---
CHEST AP ONLY History: SHORT OF BREATH. Comparison: December 19, 2018 Cardiomediastinal silhouette: Unchanged in appearance. Shift to the right is unchanged. Lungs: Linear markings, greatest in the left lung base, similar to previous exam. No new consolidating infiltrate. Pleura: No evidence of pleural effusion. Pneumothorax: None visualized Support Devices: None. Gaseous distention beneath the left hemidiaphragm appears similar. Impression: Stable appearance of the chest. Electronically signed by: Denny Bright MD (12/21/2018 10:18 AM) [id number]
[2018-12-21 10:24] LABS: BASE EXCESS ABG -1 mmol/L (-3-3); HCO3 ABG 22 mmol/L (21-28); PCO2 ABG 32 mmHg (35-46); PO2 ABG 63 mmHg (65-108); SAT O2 ABG 91 % (92-99)
[2018-12-21 10:26] LABS: FIO2 ABG 32
[2018-12-21] MEDS: CEFEPIME HCL IV Push 2 GM VIAL. IVP SCH ×2 (10:44→22:01)
[2018-12-21 11:00] VITALS: BP 129/89
--- NOTE | 2018-12-21 13:02 | NUR ---
SW following. Discussed with RN. RN advised awaiting blood cultures. Pt to discharge home with home health PT/OT/RN. SW will continue to follow.
[2018-12-21] MEDS: CALCIUM CARBONATE 500 MG TAB.CHEW PO PRN (13:10)
[2018-12-21] MEDS: ONDANSETRON PF 4 MG/2 ML VIAL. IV PRN (13:31)
[2018-12-21] MEDS: MORPHINE SULFATE 4 MG/ML VIAL. IV PRN ×2 (13:32→16:30)
--- NOTE | 2018-12-21 14:21 | PDOC ---
PROGRESS NOTES History of Present Illness History of Present Illness Assessment/Plan Assessment/Plan S/p right colon resection and hemorrhoidectomy secondary to bleeding cecal ulcer , path negative for malign ileus VISHNU, resolving Sepsis/Leukopenia. start cefepime. check cultures. apprec ID Gi bleed acute ,Questionable GI bleed with anemia marked anemia POA. hb stable Colonoscopy in 11/2017 showed diverticulosis, EGD 11/2018 showed non-erosive gastritis keep patient NPO for now with ice chips gen sx following. may need NG tube if distention not improved. Operative Note Operative Note Date: 12/17/2018 Preoperative diagnosis: GI bleed cecal ulceration by colonoscopy with active bleeding hemorrhoids Postoperative diagnosis: Same Procedure: Laparoscopic-assisted right colon resection and hemorrhoidectomy Surgeon: Jan Specimen: Right colon and hemorrhoids INCREASE ACTIVITY 2/2 pain under fair control 2/3 STOOL X 1 Advance to full liquids, inc activity, PT/OT, snf bed encouraged Vitals Vitals Vital Signs Date Time Temp Pulse Resp B/P (MAP) Pulse Ox O2 Delivery O2 Flow Rate FiO2 12/21/18 13:32 92 Nasal Cannula 3.0 12/21/18 11:00 97.7 101 129/89 (102) 97.7 12/21/18 07:00 18 Physical Exam Physical Exam GENERAL: Alert, oriented female, not in distress. VITAL SIGNS: Stable. tachypneic HEENT: NAD. NECK: Supple, no JVP, no lymphadenopathy. LUNGS: Clear. HEART: S1, S2 regular. ABDOMEN: Benign. The patient's incisions are well approximated without any signs of infection. There is no tenderness, rebound or guarding. No organomegaly. EXTREMITIES: No edema or cyanosis. SKIN: Unremarkable. NEUROLOGIC: The patient is neurologically intact. General: Alert, Oriented X3, Cooperative, No acute distress Heart: Regular rate, Normal S1, Normal S2, No murmurs Lungs: Clear Abdomen: Other (distended, lap dressings in place) Extremities: No clubbing, No cyanosis, No edema Skin: No significant lesion Labs LABS Laboratory Tests Test 12/20/18 14:45 12/20/18 16:43 12/20/18 20:51 12/21/18 04:40 White Blood Count 3.9 x10^3/uL (4.0-11.0) 3.1 x10^3/uL (4.0-11.0) Red Blood Count 3.46 x10^6/uL (3.50-5.40) 3.34 x10^6/uL (3.50-5.40) Hemoglobin 8.5 g/dL (12.0-15.5) 8.3 g/dL (12.0-15.5) Hematocrit 27.0 % (36.0-47.0) 25.8 % (36.0-47.0) Mean Corpuscular Volume 78 fL (79-100) 77 fL (79-100) Mean Corpuscular Hemoglobin 25 pg (25-35) 25 pg (25-35) Mean Corpuscular Hemoglobin Concent 32 g/dL (31-37) 32 g/dL (31-37) Red Cell Distribution Width 23.4 % (11.5-14.5) 23.6 % (11.5-14.5) Platelet Count 217 x10^3/uL (140-400) 215 x10^3/uL (140-400) Neutrophils (%) (Auto) 68 % (31-73) 74 % (31-73) Lymphocytes (%) (Auto) 14 % (24-48) 14 % (24-48) Monocytes (%) (Auto) 18 % (0-9) 12 % (0-9) Eosinophils (%) (Auto) 0 % (0-3) 0 % (0-3) Basophils (%) (Auto) 0 % (0-3) 0 % (0-3) Neutrophils # (Auto) 2.7 x10^3uL (1.8-7.7) 2.3 x10^3uL (1.8-7.7) Lymphocytes # (Auto) 0.5 x10^3/uL (1.0-4.8) 0.4 x10^3/uL (1.0-4.8) Monocytes # (Auto) 0.7 x10^3/uL (0.0-1.1) 0.4 x10^3/uL (0.0-1.1) Eosinophils # (Auto) 0.0 x10^3/uL (0.0-0.7) 0.0 x10^3/uL (0.0-0.7) Basophils # (Auto) 0.0 x10^3/uL (0.0-0.2) 0.0 x10^3/uL (0.0-0.2) Glucose (Fingerstick) 144 mg/dL (70-99) 151 mg/dL (70-99) Sodium Level 140 mmol/L (136-145) Potassium Level 4.0 mmol/L (3.5-5.1) Chloride Level 103 mmol/L (98-107) Carbon Dioxide Level 25 mmol/L (21-32) Anion Gap 12 (6-14) Blood Urea Nitrogen 34 mg/dL (7-20) Creatinine 1.1 mg/dL (0.6-1.0) Estimated GFR (Cockcroft-Gault) 58.7 BUN/Creatinine Ratio 31 (6-20) Glucose Level 157 mg/dL (70-99) Calcium Level 9.3 mg/dL (8.5-10.1) Total Bilirubin 0.4 mg/dL (0.2-1.0) Aspartate Amino Transf (AST/SGOT) 12 U/L (15-37) Alanine Aminotransferase (ALT/SGPT) 12 U/L (14-59) Alkaline Phosphatase 54 U/L (46-116) Total Protein 6.7 g/dL (6.4-8.2) Albumin 2.6 g/dL (3.4-5.0) Albumin/Globulin Ratio 0.6 (1.0-1.7) Test 12/21/18 07:36 12/21/18 09:53 12/21/18 10:25 12/21/18 10:56 Glucose (Fingerstick) 170 mg/dL (70-99) 179 mg/dL (70-99) O2 Saturation 91 % (92-99) Arterial Blood pH 7.46 (7.35-7.45) Arterial Blood pCO2 at Patient Temp 32 mmHg (35-46) Arterial Blood pO2 at Patient Temp 63 mmHg (65-108) Arterial Blood HCO3 22 mmol/L (21-28) Arterial Blood Base Excess -1 mmol/L (-3-3) FiO2 32 Lactic Acid Level 1.6 mmol/L (0.4-2.0) Comment Review of Relevant I have reviewed the following items abdifatah (where applicable) has been applied. Labs Laboratory Tests Test 12/19/18 15:58 12/19/18 20:28 12/19/18 21:10 12/20/18 06:35 Glucose (Fingerstick) 140 mg/dL (70-99) 170 mg/dL (70-99) Lactic Acid Level 1.2 mmol/L (0.4-2.0) White Blood Count 3.8 x10^3/uL (4.0-11.0) Red Blood Count 3.42 x10^6/uL (3.50-5.40) Hemoglobin 8.5 g/dL (12.0-15.5) Hematocrit 26.7 % (36.0-47.0) Mean Corpuscular Volume 78 fL (79-100) Mean Corpuscular Hemoglobin 25 pg (25-35) Mean Corpuscular Hemoglobin Concent 32 g/dL (31-37) Red Cell Distribution Width 23.4 % (11.5-14.5) Platelet Count 214 x10^3/uL (140-400) Neutrophils (%) (Auto) 69 % (31-73) Lymphocytes (%) (Auto) 14 % (24-48) Monocytes (%) (Auto) 16 % (0-9) Eosinophils (%) (Auto) 0 % (0-3) Basophils (%) (Auto) 0 % (0-3) Neutrophils # (Auto) 2.7 x10^3uL (1.8-7.7) Lymphocytes # (Auto) 0.6 x10^3/uL (1.0-4.8) Monocytes # (Auto) 0.6 x10^3/uL (0.0-1.1) Eosinophils # (Auto) 0.0 x10^3/uL (0.0-0.7) Basophils # (Auto) 0.0 x10^3/uL (0.0-0.2) Sodium Level 137 mmol/L (136-145) Potassium Level 4.0 mmol/L (3.5-5.1) Chloride Level 103 mmol/L (98-107) Carbon Dioxide Level 24 mmol/L (21-32) Anion Gap 10 (6-14) Blood Urea Nitrogen 26 mg/dL (7-20) Creatinine 0.9 mg/dL (0.6-1.0) Estimated GFR (Cockcroft-Gault) 74.1 Glucose Level 154 mg/dL (70-99) Calcium Level 9.4 mg/dL (8.5-10.1) Procalcitonin 0.27 ng/mL (0.00-0.10) Test 12/20/18 07:11 12/20/18 11:44 12/20/18 14:45 12/20/18 16:43 Glucose (Fingerstick) 133 mg/dL (70-99) 143 mg/dL (70-99) 144 mg/dL (70-99) White Blood Count 3.9 x10^3/uL (4.0-11.0) Red Blood Count 3.46 x10^6/uL (3.50-5.40) Hemoglobin 8.5 g/dL (12.0-15.5) Hematocrit 27.0 % (36.0-47.0) Mean Corpuscular Volume 78 fL (79-100) Mean Corpuscular Hemoglobin 25 pg (25-35) Mean Corpuscular Hemoglobin Concent 32 g/dL (31-37) Red Cell Distribution Width 23.4 % (11.5-14.5) Platelet Count 217 x10^3/uL (140-400) Neutrophils (%) (Auto) 68 % (31-73) Lymphocytes (%) (Auto) 14 % (24-48) Monocytes (%) (Auto) 18 % (0-9) Eosinophils (%) (Auto) 0 % (0-3) Basophils (%) (Auto) 0 % (0-3) Neutrophils # (Auto) 2.7 x10^3uL (1.8-7.7) Lymphocytes # (Auto) 0.5 x10^3/uL (1.0-4.8) Monocytes # (Auto) 0.7 x10^3/uL (0.0-1.1) Eosinophils # (Auto) 0.0 x10^3/uL (0.0-0.7) Basophils # (Auto) 0.0 x10^3/uL (0.0-0.2) Test 12/20/18 20:51 12/21/18 04:40 12/21/18 07:36 12/21/18 09:53 Glucose (Fingerstick) 151 mg/dL (70-99) 170 mg/dL (70-99) White Blood Count 3.1 x10^3/uL (4.0-11.0) Red Blood Count 3.34 x10^6/uL (3.50-5.40) Hemoglobin 8.3 g/dL (12.0-15.5) Hematocrit 25.8 % (36.0-47.0) Mean Corpuscular Volume 77 fL (79-100) Mean Corpuscular Hemoglobin 25 pg (25-35) Mean Corpuscular Hemoglobin Concent 32 g/dL (31-37) Red Cell Distribution Width 23.6 % (11.5-14.5) Platelet Count 215 x10^3/uL (140-400) Neutrophils (%) (Auto) 74 % (31-73) Lymphocytes (%) (Auto) 14 % (24-48) Monocytes (%) (Auto) 12 % (0-9) Eosinophils (%) (Auto) 0 % (0-3) Basophils (%) (Auto) 0 % (0-3) Neutrophils # (Auto) 2.3 x10^3uL (1.8-7.7) Lymphocytes # (Auto) 0.4 x10^3/uL (1.0-4.8) Monocytes # (Auto) 0.4 x10^3/uL (0.0-1.1) Eosinophils # (Auto) 0.0 x10^3/uL (0.0-0.7) Basophils # (Auto) 0.0 x10^3/uL (0.0-0.2) Sodium Level 140 mmol/L (136-145) Potassium Level 4.0 mmol/L (3.5-5.1) Chloride Level 103 mmol/L (98-107) Carbon Dioxide Level 25 mmol/L (21-32) Anion Gap 12 (6-14) Blood Urea Nitrogen 34 mg/dL (7-20) Creatinine 1.1 mg/dL (0.6-1.0) Estimated GFR (Cockcroft-Gault) 58.7 BUN/Creatinine Ratio 31 (6-20) Glucose Level 157 mg/dL (70-99) Calcium Level 9.3 mg/dL (8.5-10.1) Total Bilirubin 0.4 mg/dL (0.2-1.0) Aspartate Amino Transf (AST/SGOT) 12 U/L (15-37) Alanine Aminotransferase (ALT/SGPT) 12 U/L (14-59) Alkaline Phosphatase 54 U/L (46-116) Total Protein 6.7 g/dL (6.4-8.2) Albumin 2.6 g/dL (3.4-5.0) Albumin/Globulin Ratio 0.6 (1.0-1.7) O2 Saturation 91 % (92-99) Arterial Blood pH 7.46 (7.35-7.45) Arterial Blood pCO2 at Patient Temp 32 mmHg (35-46) Arterial Blood pO2 at Patient Temp 63 mmHg (65-108) Arterial Blood HCO3 22 mmol/L (21-28) Arterial Blood Base Excess -1 mmol/L (-3-3) FiO2 32 Test 12/21/18 10:25 12/21/18 10:56 Lactic Acid Level 1.6 mmol/L (0.4-2.0) Glucose (Fingerstick) 179 mg/dL (70-99) Laboratory Tests Test 12/20/18 14:45 12/20/18 16:43 12/20/18 20:51 12/21/18 04:40 White Blood Count 3.9 x10^3/uL (4.0-11.0) 3.1 x10^3/uL (4.0-11.0) Red Blood Count 3.46 x10^6/uL (3.50-5.40) 3.34 x10^6/uL (3.50-5.40) Hemoglobin 8.5 g/dL (12.0-15.5) 8.3 g/dL (12.0-15.5) Hematocrit 27.0 % (36.0-47.0) 25.8 % (36.0-47.0) Mean Corpuscular Volume 78 fL (79-100) 77 fL (79-100) Mean Corpuscular Hemoglobin 25 pg (25-35) 25 pg (25-35) Mean Corpuscular Hemoglobin Concent 32 g/dL (31-37) 32 g/dL (31-37) Red Cell Distribution Width 23.4 % (11.5-14.5) 23.6 % (11.5-14.5) Platelet Count 217 x10^3/uL (140-400) 215 x10^3/uL (140-400) Neutrophils (%) (Auto) 68 % (31-73) 74 % (31-73) Lymphocytes (%) (Auto) 14 % (24-48) 14 % (24-48) Monocytes (%) (Auto) 18 % (0-9) 12 % (0-9) Eosinophils (%) (Auto) 0 % (0-3) 0 % (0-3) Basophils (%) (Auto) 0 % (0-3) 0 % (0-3) Neutrophils # (Auto) 2.7 x10^3uL (1.8-7.7) 2.3 x10^3uL (1.8-7.7) Lymphocytes # (Auto) 0.5 x10^3/uL (1.0-4.8) 0.4 x10^3/uL (1.0-4.8) Monocytes # (Auto) 0.7 x10^3/uL (0.0-1.1) 0.4 x10^3/uL (0.0-1.1) Eosinophils # (Auto) 0.0 x10^3/uL (0.0-0.7) 0.0 x10^3/uL (0.0-0.7) Basophils # (Auto) 0.0 x10^3/uL (0.0-0.2) 0.0 x10^3/uL (0.0-0.2) Glucose (Fingerstick) 144 mg/dL (70-99) 151 mg/dL (70-99) Sodium Level 140 mmol/L (136-145) Potassium Level 4.0 mmol/L (3.5-5.1) Chloride Level 103 mmol/L (98-107) Carbon Dioxide Level 25 mmol/L (21-32) Anion Gap 12 (6-14) Blood Urea Nitrogen 34 mg/dL (7-20) Creatinine 1.1 mg/dL (0.6-1.0) Estimated GFR (Cockcroft-Gault) 58.7 BUN/Creatinine Ratio 31 (6-20) Glucose Level 157 mg/dL (70-99) Calcium Level 9.3 mg/dL (8.5-10.1) Total Bilirubin 0.4 mg/dL (0.2-1.0) Aspartate Amino Transf (AST/SGOT) 12 U/L (15-37) Alanine Aminotransferase (ALT/SGPT) 12 U/L (14-59) Alkaline Phosphatase 54 U/L (46-116) Total Protein 6.7 g/dL (6.4-8.2) Albumin 2.6 g/dL (3.4-5.0) Albumin/Globulin Ratio 0.6 (1.0-1.7) Test 12/21/18 07:36 12/21/18 09:53 12/21/18 10:25 12/21/18 10:56 Glucose (Fingerstick) 170 mg/dL (70-99) 179 mg/dL (70-99) O2 Saturation 91 % (92-99) Arterial Blood pH 7.46 (7.35-7.45) Arterial Blood pCO2 at Patient Temp 32 mmHg (35-46) Arterial Blood pO2 at Patient Temp 63 mmHg (65-108) Arterial Blood HCO3 22 mmol/L (21-28) Arterial Blood Base Excess -1 mmol/L (-3-3) FiO2 32 Lactic Acid Level 1.6 mmol/L (0.4-2.0) Microbiology 12/19/18 Blood Culture - Preliminary, Resulted NO GROWTH AFTER 1 DAY Medications Current Medications Sodium Chloride 1,000 ml @ 1,000 mls/hr 1X ONCE IV Last administered on at 13:52; Start 12/14/18 at 13:30; Stop 12/14/18 at 14:29; Status DC Amlodipine Besylate (Norvasc) 10 mg DAILY PO Last administered on 12/21/18at 08: 49; Start 12/14/18 at 17:00 Chlorhexidine Gluconate (Peridex) 15 ml BID MM Last administered on 12/21/18at 08 :45; Start 12/14/18 at 21:00 Non-Formulary Medication (Albuterol Sulfate (Ventolin Hfa Inhaler)) 2 puff Q4HRS INH ; Start 12/14/18 at 20:00; Status UNV Ascorbic Acid (Vitamin C) 500 mg DAILY PO Last administered on 12/21/18at 08:46; Start 12/14/18 at 17:00 Duloxetine HCl (Cymbalta) 90 mg DAILY PO Last administered on 12/21/18 08:48; Start 12/14/18 at 17:00 Ferrous Sulfate (Feosol) 325 mg DAILYWBKFT PO Last administered on 12/21/18 08: 46; Start 12/14/18 at 17:00 Losartan Potassium (Cozaar) 100 mg DAILY PO Last administered on 12/21/18 08:47 ; Start 12/14/18 at 17:00 Memantine (Namenda) 10 mg BID PO Last administered on 12/21/18 08:48; Start at 21:00 Pantoprazole Sodium (Protonix) 40 mg DAILYAC PO Last administered on 12/21/18 08:48; Start 12/14/18 at 17:00 Ropinirole HCl (Requip) 3 mg QHS PO Last administered on 12/20/18 21:29; Start 12/14/18 at 21:00 Spironolactone (Aldactone) 25 mg DAILY PO Last administered on 12/21/18 08:49; Start 12/14/18 at 17:00 Albuterol Sulfate (Ventolin Neb Soln) 2.5 mg Q4HRS NEB Last administered on 12/21 10:13; Start 12/14/18 at 20:00 Sodium Chloride 1,000 ml @ 80 mls/hr [id number] IV Last administered on 12/20/18 23:06; Start 12/14/18 at 17:15 Acetaminophen (Tylenol) 650 mg PRN Q6HRS PRN PO Pain Last administered on 21:27; Start 12/15/18 at 04:45 Polyethylene Glycol (miraLAX Powder BULK BOTTLE) 238 gm 1X ONCE PO Last administered on 12/15/18 12:48; Start 12/15/18 at 12:00; Stop 12/15/18 at 12:01 ; Status DC Ondansetron HCl (Zofran) 4 mg PRN Q6HRS PRN IV NAUSEA/VOMITING; Start 12/16/18 at 07:00; Stop 12/17/18 at 06:59; Status DC Fentanyl Citrate (Fentanyl 2ml Vial) 25 mcg PRN Q5MIN PRN IV MILD PAIN; Start 12/16/18 at 07:00; Stop 12/16/18 at 16:33; Status DC Fentanyl Citrate (Fentanyl 2ml Vial) 50 mcg PRN Q5MIN PRN IV MODERATE TO SEVERE PAIN; Start 12/16/18 at 07:00; Stop 12/16/18 at 16:33; Status DC Morphine Sulfate (Morphine Sulfate) 1 mg PRN Q10MIN PRN IV SEVERE PAIN; Start 12/16/18 at 07:00; Stop 12/17/18 at 06:59; Status DC Ringer's Solution 1,000 ml @ 30 mls/hr Q24H IV Last administered on 12/16/18at 13:00; Start 12/16/18 at 07:00; Stop 12/16/18 at 18:59; Status DC Lidocaine HCl (Xylocaine-Mpf 1% 2ml Vial) 2 ml PRN 1X PRN ID IV START; Start at 07:00; Stop 12/17/18 at 06:59; Status DC Hydromorphone HCl (Dilaudid) 0.5 mg PRN Q10MIN PRN IV SEV PAIN, Second choice; Start 12/16/18 at 07:00; Stop 12/17/18 at 06:59; Status DC Prochlorperazine Edisylate (Compazine) 5 mg PACU PRN PRN IV NAUSEA, MRX1; Start 12/16/18 at 07:00; Stop 12/17/18 at 06:59; Status DC Midazolam HCl (Versed) 2 mg PRN 1X PRN IV PRIOR TO PROCEDURE; Start 12/16/18 at 07:15; Stop 12/17/18 at 07:14; Status DC Fentanyl Citrate (Fentanyl 2ml Vial) 25 mcg PRN Q5MIN PRN IV X 2 DOSES FOR PAIN ; Start 12/16/18 at 07:15; Stop 12/16/18 at 16:33; Status DC Fentanyl Citrate (Fentanyl 2ml Vial) 50 mcg PRN Q5MIN PRN IV X 2 DOSES FOR PAIN ; Start 12/16/18 at 07:15; Stop 12/16/18 at 16:34; Status DC Ringer's Solution 1,000 ml @ 125 mls/hr Q8H IV ; Start 12/16/18 at 07:13; Stop 12/16/18 at 19:12; Status DC Lidocaine HCl (Xylocaine-Mpf 1% 2ml Vial) 2 ml 1X PRN PRN ID IV START; Start at 07:15; Stop 12/17/18 at 07:14; Status DC Propofol 40 ml @ As Directed STK-MED ONCE IV ; Start 12/16/18 at 13:58; Stop at 14:00; Status DC Prochlorperazine Edisylate (Compazine) 5 mg PACU PRN PRN IV NAUSEA, MRX1; Start 12/17/18 at 07:00; Stop 12/18/18 at 06:59; Status DC Hydromorphone HCl (Dilaudid) 0.5 mg PRN Q10MIN PRN IV SEV PAIN, Second choice; Start 12/17/18 at 07:00; Stop 12/18/18 at 06:59; Status DC Lidocaine HCl (Xylocaine-Mpf 1% 2ml Vial) 2 ml PRN 1X PRN ID IV START; Start at 07:00; Stop 12/18/18 at 06:59; Status DC Ringer's Solution 1,000 ml @ 30 mls/hr Q24H IV Last administered on 12/17/18at 10:34; Start 12/17/18 at 07:00; Stop 12/17/18 at 18:59; Status DC Morphine Sulfate (Morphine Sulfate) 1 mg PRN Q10MIN PRN IV SEVERE PAIN; Start 12/17/18 at 07:00; Stop 12/18/18 at 06:59; Status DC Fentanyl Citrate (Fentanyl 2ml Vial) 50 mcg PRN Q5MIN PRN IV MODERATE TO SEVERE PAIN Last administered on 12/17/18at 11:13; Start 12/17/18 at 07:00; Stop at 06:59; Status DC Fentanyl Citrate (Fentanyl 2ml Vial) 25 mcg PRN Q5MIN PRN IV MILD PAIN; Start 12/17/18 at 07:00; Stop 12/18/18 at 06:59; Status DC Ondansetron HCl (Zofran) 4 mg PRN Q6HRS PRN IV NAUSEA/VOMITING; Start 12/17/18 at 07:00; Stop 12/18/18 at 06:59; Status DC Propofol 20 ml @ As Directed STK-MED ONCE IV ; Start 12/17/18 at 07:21; Stop 12/17 at 07:23; Status DC Albuterol Sulfate (Ventolin Neb Soln) 2.5 mg 1X ONCE NEB ; Start 12/17/18 at 07: 30; Stop 12/17/18 at 07:31; Status DC Lidocaine HCl (Lidocaine Pf 2% Vial) 5 ml STK-MED ONCE .ROUTE ; Start 12/17/18 at 07:21; Stop 12/17/18 at 07:23; Status DC Succinylcholine Chloride (Anectine) 200 mg STK-MED ONCE .ROUTE ; Start 12/17/18 at 07:21; Stop 12/17/18 at 07:23; Status DC Rocuronium [place] (Zemuron) 50 mg STK-MED ONCE .ROUTE ; Start 12/17/18 at 07:21 ; Stop 12/17/18 at 07:23; Status DC Fentanyl Citrate (Fentanyl 2ml Vial) 100 mcg STK-MED ONCE .ROUTE ; Start at 07:21; Stop 12/17/18 at 07:24; Status DC Cefazolin Sodium/ Dextrose 50 ml @ 100 mls/hr 1X ONCE IV Last administered on 12/17/18at 08:07; Start 12/17/18 at 07:45; Stop 12/17/18 at 08:18; Status DC Bupivacaine HCl/ Epinephrine Bitart (Sensorcain-Mpf Epi 0.5%-[id number]) 30 ml STK -MED ONCE .ROUTE Last administered on 12/17/18at 08:34; Start 12/17/18 at 07:46; Stop 12/17/18 at 07:49; Status DC Neomycin/ Polymyxin/ Bacitracin (Triple Antibiotic Ointment) 1 pkt STK-MED ONCE TP Last administered on 12/17/18at 10:07; Start 12/17/18 at 07:46; Stop 12/17/18 at 07:49; Status DC Neomycin/ Polymyxin/ Bacitracin (Triple Antibiotic Ointment) 1 pkt STK-MED ONCE TP Last administered on 12/17/18at 10:07; Start 12/17/18 at 07:46; Stop 12/17/18 at 07:49; Status DC Neomycin/ Polymyxin/ Bacitracin (Triple Antibiotic Ointment) 1 pkt STK-MED ONCE TP ; Start 12/17/18 at 07:47; Stop 12/17/18 at 07:49; Status DC Dexamethasone Sodium Phosphate (Decadron) 20 mg STK-MED ONCE .ROUTE ; Start 12/17 at 07:54; Stop 12/17/18 at 07:56; Status DC Hydrocortisone Sodium Succinate (Solu-CORTEF) 100 mg STK-MED ONCE .ROUTE ; Start 12/17/18 at 07:54; Stop 12/17/18 at 07:56; Status DC Desflurane (Suprane) 90 ml STK-MED ONCE IH ; Start 12/17/18 at 07:54; Stop at 07:56; Status DC Neostigmine Methylsulfate (Bloxiverz) 10 mg STK-MED ONCE .ROUTE ; Start 12/17/18 at 08:21; Stop 12/17/18 at 08:24; Status DC Glycopyrrolate (Robinul) 1 mg STK-MED ONCE .ROUTE ; Start 12/17/18 at 08:21; Stop 12/17/18 at 08:24; Status DC Phenylephrine HCl (Bogdan-Synephrine Inj) 10 mg STK-MED ONCE .ROUTE ; Start at 08:23; Stop 12/17/18 at 08:26; Status DC Desflurane (Suprane) 60 ml STK-MED ONCE IH ; Start 12/17/18 at 09:23; Stop at 09:26; Status DC Bupivacaine HCl/ Epinephrine Bitart (Sensorcain-Mpf Epi 0.5%-[id number]) 30 ml STK -MED ONCE .ROUTE Last administered on 12/17/18at 10:06; Start 12/17/18 at 09:41; Stop 12/17/18 at 09:43; Status DC Morphine Sulfate (Morphine Sulfate) 2 mg PRN Q2HR PRN IV PAIN Last administered on 12/21/18at 13:32; Start 12/17/18 at 10:15 Ketorolac Tromethamine (Toradol 15mg Vial) 15 mg Q6HRS IV Last administered on 12/18/18at 05:39; Start 12/17/18 at 12:00; Stop 12/18/18 at 10:00; Status DC Artificial Tears (Artificial Tears) 1 drop PRN Q15MIN PRN OU DRY EYE Last administered on 12/20/18at 21:28; Start 12/18/18 at 08:00 Docusate Sodium (Colace) 100 mg DAILY PO Last administered on 12/21/18 08:48; Start 12/18/18 at 10:00 Throat Lozenges (Cepacol Sore Throat Lozenge) 1 kristyn PRN Q2HRS PRN PO SORE THROAT Last administered on 12/20/18 19:46; Start 12/18/18 at 14:00 Enoxaparin Sodium (Lovenox 40mg Syringe) 40 mg Q24H SQ Last administered on 12/21 08:51; Start 12/19/18 at 09:00 Ondansetron HCl (Zofran) 4 mg PRN Q6HRS PRN IV NAUSEA/VOMITING Last administered on 12/21/18 13:31; Start 12/19/18 at 11:30 Insulin Human Lispro (HumaLOG) 0-5 UNITS TIDWMEALS SQ ; Start 12/19/18 at 17:00 Dextrose (Dextrose 50%-Water Syringe) 12.5 gm PRN Q15MIN PRN IV SEE COMMENTS; Start 12/19/18 at 16:45 Levofloxacin/ Dextrose 100 ml @ 100 mls/hr 1X ONCE IV Last administered on 20:56; Start 12/19/18 at 21:00; Stop 12/19/18 at 21:59; Status DC Cefepime HCl (Maxipime) 2 gm Q12HR IVP Last administered on 12/21/18 10:44; Start 12/21/18 at 10:00 Sodium Chloride 1,000 ml @ 125 mls/hr 1X ONCE IV Last administered on 10:43; Start 12/21/18 at 09:45; Stop 12/21/18 at 17:44 Calcium Carbonate/ Glycine (Tums) 500 mg PRN AFTMEALHC PRN PO INDIGESTION Last administered on 12/21/18 13:10; Start 12/21/18 at 12:15 Active Scripts Active Chlorhexidine Gluconate 473 Ml Mouthwash 473 Ml MM BID 7 Days Vitamin C (Ascorbate Calcium) 500 Mg Tablet 500 Mg PO DAILY 30 Days Slow Release Iron (Ferrous Sulfate) 250 Mg Tablet.er 250 Mg PO DAILY 30 Days Protonix (Pantoprazole Sodium) 40 Mg Granpkt.dr 40 Mg PO DAILY 30 Days Reported Metformin Hcl Er (Metformin Hcl) 500 Mg Tab.er.24h 1 Tab PO DAILY Namenda (Memantine Hcl) 10 Mg Tablet 1 Tab PO BID Losartan Potassium 100 Mg Tablet 100 Mg PO DAILY Spironolactone 25 Mg Tablet 1 Tab PO DAILY Ventolin Hfa Inhaler (Albuterol Sulfate) 18 Gm Hfa.aer.ad 2 Puff INH Q4HRS Cymbalta (Duloxetine Hcl) 20 Mg Capsule.dr 90 Mg PO DAILY Requip (Ropinirole Hcl) 1 Mg Tablet 3 Mg PO DAILY Amlodipine Besylate 10 Mg Tablet 10 Mg PO DAILY Vitals/I & O Vital Sign - Last 24 Hours 12/20/18 12/20/18 12/20/18 12/20/18 15:00 15:45 17:31 19:00 Temp 98.4 98.5 98.4 98.5 Pulse 91 103 Resp 18 18 18 B/P (MAP) 127/87 (100) 131/94 (106) Pulse Ox 95 96 93 O2 Delivery Nasal Cannula Nasal Cannula Nasal Cannula Nasal Cannula O2 Flow Rate 3.0 3.0 3.0 3.0 12/20/18 12/20/18 12/20/18 12/20/18 20:30 21:29 22:00 23:00 Temp 98.5 98.5 Pulse 99 Resp 18 16 18 B/P (MAP) 144/84 (104) Pulse Ox 93 94 96 O2 Delivery Nasal Cannula Nasal Cannula Nasal Cannula Nasal Cannula O2 Flow Rate 3.0 3.0 3.0 3.0 12/21/18 12/21/18 12/21/18 12/21/18 00:23 03:00 07:00 07:04 Temp 98.4 97.6 98.4 97.6 Pulse 100 91 Resp 18 18 B/P (MAP) 140/84 (102) 141/90 (107) Pulse Ox 98 92 93 95 O2 Delivery Nasal Cannula Nasal Cannula Nasal Cannula Nasal Cannula O2 Flow Rate 3.0 3.0 3.0 3.0 12/21/18 12/21/18 12/21/18 12/21/18 07:30 08:47 08:49 10:14 Pulse 91 91 B/P (MAP) 141/90 141/90 Pulse Ox 95 O2 Delivery Nasal Cannula Nasal Cannula O2 Flow Rate 3.0 3.0 12/21/18 12/21/18 11:00 13:32 Temp 97.7 97.7 Pulse 101 B/P (MAP) 129/89 (102) Pulse Ox 92 92 O2 Delivery Nasal Cannula Nasal Cannula O2 Flow Rate 3.0 3.0 Intake and Output 12/20/18 12/20/18 12/21/18 15:01 23:01 07:01 Intake Total 425 ml 370 ml Balance 425 ml 370 ml NICOLE RETANA MD Dec 21, 2018 14:21
[2018-12-21 15:06] VITALS: BP 137/98
[2018-12-21 19:00] VITALS: BP 131/86
[2018-12-21] MEDS: NICOTINE 14MG PATCH. TD PRN (22:02)
[2018-12-21] MEDS: rOPINIRole 1 MG TABLET. PO SCH (22:02)
[2018-12-21 22:55] VITALS: BP 133/89
[2018-12-22] VITALS (13 sets, daily range): BP systolic 114–141; BP diastolic 72–93
--- NOTE | 2018-12-22 03:05 | NUR ---
RT discussed with this nurse that pt.'s daughter had refused pt.'s scheduled breathing treatment during beginning of the shift 12/21/18. Daughter was upset that pt. was going to be woken up.
--- NOTE | 2018-12-22 03:33 | NUR ---
Pt. woke up with SOB saying she could not breathe. Spoke to Dr. Caballero this morning. He stated just to give her next dose of ativan and RT treatments. She will be the first pt. he will see in the morning. Will continue to monitor and pass on to day shift.
[2018-12-22] MEDS: ALBUTEROL SULFATE 2.5 MG/3 ML NEBU. NEB SCH ×7 (03:37→23:29)
--- NOTE | 2018-12-22 03:52 | NUR ---
UPON ARRIVAL TO GIVE BREATHING TREATMENT AT 2330, PT RESPIRATORY STATUS IS NOTED TO HAVE DETERIORATED SINCE PREVIOUS MORNING. UPON ARRIVAL FOR NEXT TREATMENT AT 0340, PT SEEMS TO HAVE GOTTEN WORSE STILL. PT IS TACHYPNEIC RR32, AND LOOKS TO BE IN MODERATE TO SEVERE DISTRESS, WITH ACCESSORY MUSCLE USE FOR BREATHING WELL PARADOXICAL BREATHING WITH PROLONGED EXPIRATORY PHASE. PT ALSO SEEMS CONFUSED COMPARED TO PREVIOUS DAYS. RELAYED OBSERVATIONS TO RN, WHO DID CALL NO TESTS OR INTERVENTIONS ORDERED AT THIS TIME.
[2018-12-22] MEDS: PANTOPRAZOLE 40 MG TABLET.DR. PO SCH (05:28)
[2018-12-22 06:15] LABS: BASE EXCESS ABG -1 mmol/L (-3-3); HCO3 ABG 23 mmol/L (21-28); PCO2 ABG 34 mmHg (35-46); PO2 ABG 71 mmHg (65-108); SAT O2 ABG 93 % (92-99)
[2018-12-22 06:17] LABS: FIO2 ABG 35
--- NOTE | 2018-12-22 07:43 | NUR ---
0550: Pt. still tachypneic with RR 32/min. VSS except HR at 108. Pt. has trouble speaking properly because she has to catch her breath. Pt. on 9L venti mask. Pt. has been needing breathing treatments all night. Called [facility] around this time. ABGs done and showed almost no change with only more hyperventilation. Pt. denies pain. Abdomen is distended.
[2018-12-22] MEDS: INSULIN LISPRO 300 UNITS/3 ML INSULN.PEN. SQ SCH ×2 (08:00→17:00)
--- NOTE | 2018-12-22 09:03 | PDOC ---
Infectious Disease Note Subjective Subjective sob, no BM, abd distention tachypneic ROS ROS no n/v/d/fever Vital Sign Vital Signs Vital Signs Date Time Temp Pulse Resp B/P (MAP) Pulse Ox O2 Delivery O2 Flow Rate FiO2 12/22/18 08:09 Venturi Mask 10.0 12/22/18 07:19 100 12/22/18 07:00 98.8 100 20 139/93 (108) 98.8 Physical Exam PHYSICAL EXAM GENERAL: Alert, oriented female, not in distress. VITAL SIGNS: Stable. tachypneic HEENT: NAD. NECK: Supple, no JVP, no lymphadenopathy. LUNGS: Clear. HEART: S1, S2 regular. ABDOMEN: Benign. The patient's incisions are well approximated without any signs of infection. There is no tenderness, rebound or guarding. No organomegaly. EXTREMITIES: No edema or cyanosis. SKIN: Unremarkable. NEUROLOGIC: The patient is neurologically intact. Labs Lab Laboratory Tests Test 12/21/18 09:53 12/21/18 10:25 12/21/18 10:56 12/21/18 16:34 O2 Saturation 91 % (92-99) Arterial Blood pH 7.46 (7.35-7.45) Arterial Blood pCO2 at Patient Temp 32 mmHg (35-46) Arterial Blood pO2 at Patient Temp 63 mmHg (65-108) Arterial Blood HCO3 22 mmol/L (21-28) Arterial Blood Base Excess -1 mmol/L (-3-3) FiO2 32 Lactic Acid Level 1.6 mmol/L (0.4-2.0) Glucose (Fingerstick) 179 mg/dL (70-99) 171 mg/dL (70-99) Test 12/21/18 21:20 12/22/18 06:00 12/22/18 07:16 Glucose (Fingerstick) 118 mg/dL (70-99) 135 mg/dL (70-99) O2 Saturation 93 % (92-99) Arterial Blood pH 7.44 (7.35-7.45) Arterial Blood pCO2 at Patient Temp 34 mmHg (35-46) Arterial Blood pO2 at Patient Temp 71 mmHg (65-108) Arterial Blood pO2 (Temp corrected) mmHg Arterial Blood HCO3 23 mmol/L (21-28) Arterial Blood Base Excess -1 mmol/L (-3-3) FiO2 35 Micro Microbiology 12/19/18 Blood Culture - Preliminary, Resulted NO GROWTH AFTER 1 DAY Objective Assessment ? Sepsis,, Leukocytosis post surgery and leukopenia now, no fever S/P rt hemicolectomy COPD Plan Plan of Care bc neg cxr ok abg noted cefepime supportive care lactic acid normal will get ct chest, abd and pelvis d/w daughter in detail DENI SALINAS MD Dec 22, 2018 09:03
[2018-12-22] MEDS ORDERED: IV NORMAL SALINE 1000ML BAG 1,000 ML IV ONE (09:15)
--- NOTE | 2018-12-22 09:43 | NUR ---
Pt triggered a positive sepsis screen again today. Dr. Blackmon on floor notified and orders received.
--- NOTE | 2018-12-22 10:03 | RAD ---
Examination: CT chest abdomen pelvis without contrast HISTORY: History of sepsis COMPARISON: 12/14/2018 TECHNIQUE: Axial CT images of the chest abdomen pelvis were performed without contrast. Coronal and sagittal reformats are performed Exposure: One or more of the following individualized dose reduction techniques were utilized for this examination: 1. Automated exposure control 2. Adjustment of the mA and/or kV according to patient size 3. Use of iterative reconstruction technique FINDINGS: Examination is limited due to lack of IV contrast. The central airways are patent. Mild cardiomegaly. Coronary artery calcifications identified. There are bibasilar lung airspace opacities likely atelectasis or infiltrates. There is a 8 mm focus of airspace opacity identified in the right upper lobe of the lung. Minimal atelectasis or infiltrate identified in the left lingula of the lung. Minimal bilateral pleural effusions. No evidence of free air identified in the abdomen. Small amount of perihepatic fluid identified. The visualized noncontrasted liver, spleen, adrenals, pancreas grossly appears unremarkable. The gallbladder is mildly distended. Moderate hyperdensity identified in the dependent portion of the gallbladder probably sludge. The stomach is mildly distended. There are multiple dilated and fluid distended small bowel loops identified throughout the abdomen measuring up to 4.9 cm in transverse dimension with a likely transition point in the right lower quadrant of the abdomen best visualized on series 4 image #50 with the collapsed distal small bowel loop. Surgical sutures identified at the ileocolic junction. Feces and gas noted in the ascending colon. The transverse colon is mildly distended in its proximal and midportion with focal nondistention or stricture in the distal transverse colon, best visualized on series 4 image 24. No evidence of intrarenal collecting system calculi or hydronephrosis. Moderate aortic atherosclerosis. Urinary bladder is mildly distended. Moderate to severe degenerative changes thoracic lumbar spine. Lumbar hardware identified at L2, L3, L4 vertebral level with posterior lumbar fusion and bilateral pedicle screws. Minimal soft tissue edema identified in the abdomen likely mild anasarca. IMPRESSION: 1. Multiple dilated small bowel loops identified throughout the abdomen except the distal most portion of the ileum likely small bowel obstruction with transition point in the right lower quadrant of the abdomen. 2. Mild ascites. 3. 8 mm focus of airspace opacity identified in the right upper lobe of the lung. Close interval follow-up examination is recommended. 4. Bibasilar lung airspace opacities likely atelectasis or infiltrates with small bilateral pleural effusions. 5. The transverse colon is mildly distended with a focal nondistention or less likely stricture at the junction of the mid and distal transverse colon without proximal large bowel obstruction. Follow-up colonoscopy can be considered after the acute episode has resolved. Electronically signed by: Bryon Lindquist MD (12/22/2018 9:59 AM) [facility]
[2018-12-22] MEDS: CEFEPIME HCL IV Push 2 GM VIAL. IVP SCH ×2 (10:25→20:19)
[2018-12-22] MEDS: CHLORHEXIDINE 0.12% 15 ML MOUTHWASH. MM SCH ×2 (10:28→20:19)
[2018-12-22] MEDS: DOCUSATE SODIUM 100 MG CAPSULE. PO SCH (10:29)
[2018-12-22] MEDS: LOSARTAN POTASSIUM 50 MG TABLET. PO SCH (10:29)
[2018-12-22] MEDS: SPIRONOLACTONE 25 MG TABLET PO SCH (10:29)
[2018-12-22] MEDS: FERROUS SULFATE 325 MG TABLET. PO SCH (10:30)
[2018-12-22] MEDS: DULoxetine HCL 30 MG CAPSULE.DR PO SCH (10:30)
[2018-12-22] MEDS: ASCORBIC ACID 500 MG TABLET PO SCH (10:30)
[2018-12-22] MEDS: MEMANTINE 10 MG TABLET. PO SCH ×2 (10:30→20:18)
[2018-12-22] MEDS: amLODIPine BESYLATE 10 MG TABLET PO SCH (10:30)
[2018-12-22] MEDS: ENOXAPARIN 40 MG/0.4 ML SYRINGE. SQ SCH (10:31)
[2018-12-22 10:38] LABS: CALCIUM 9.4 mg/dL (8.5-10.1); CREATININE 1.2 mg/dL (0.6-1.0); POTASSIUM 4.1 mmol/L (3.5-5.1)
--- NOTE | 2018-12-22 11:11 | NUR ---
SW following. Discussed with RN, pt is not doing to well today. SW will continue to follow.
--- NOTE | 2018-12-22 12:00 | NUR ---
Rec'd as tx from 4 no for resp distress. Here on bed and tx over. Dgt at bedside. VSS on 2l n/c sat 94%. Pt states only discomfort is abd tenderness as abd is distended. Pt answered approp but slow to respond. Had rec'd Ativan earlier. IV replaced. NS infusing. SR. Skin w/d. RR 22. NG placed after a couple tries but finally in right spot and confirmed with KUB. Placed to LIG. Dr Montoya at bedside. Dr Sands consult called and he will see soon. Mitts applied to protect NG tube.
--- NOTE | 2018-12-22 12:12 | PDOC ---
Objective: Objective: Called by floor RN - transferred to ICU for resp distress, says abd still distended w/ hypoactive BS. Vital Signs: Vital Signs Date Time Temp Pulse Resp B/P (MAP) Pulse Ox O2 Delivery O2 Flow Rate FiO2 12/22/18 11:00 98.1 108 20 141/88 (105) 100 Nasal Cannula 3.0 98.1 Labs: Laboratory Tests Test 12/21/18 16:34 12/21/18 21:20 12/22/18 06:00 12/22/18 07:16 Glucose (Fingerstick) 171 mg/dL 118 mg/dL 135 mg/dL O2 Saturation 93 % Arterial Blood pH 7.44 Arterial Blood pCO2 at Patient Temp 34 mmHg Arterial Blood pO2 at Patient Temp 71 mmHg Arterial Blood pO2 (Temp corrected) mmHg Arterial Blood HCO3 23 mmol/L Arterial Blood Base Excess -1 mmol/L FiO2 35 Test 12/22/18 09:50 Sodium Level 144 mmol/L Potassium Level 4.1 mmol/L Chloride Level 106 mmol/L Carbon Dioxide Level 24 mmol/L Anion Gap 14 Blood Urea Nitrogen 42 mg/dL Creatinine 1.2 mg/dL Estimated GFR (Cockcroft-Gault) 53.0 Glucose Level 134 mg/dL Calcium Level 9.4 mg/dL BLOOD CULTURE Preliminary NO GROWTH AFTER 1 DAY Imaging: Chest/A/P CT IMPRESSION: 1. Multiple dilated small bowel loops identified throughout the abdomen except the distal most portion of the ileum likely small bowel obstruction with transition point in the right lower quadrant of the abdomen. 2. Mild ascites. 3. 8 mm focus of airspace opacity identified in the right upper lobe of the lung. Close interval follow-up examination is recommended. 4. Bibasilar lung airspace opacities likely atelectasis or infiltrates with small bilateral pleural effusions. 5. The transverse colon is mildly distended with a focal nondistention or less likely stricture at the junction of the mid and distal transverse colon without proximal large bowel obstruction. Follow-up colonoscopy can be considered after the acute episode has resolved. PE: GEN: just arrived in ICU - staff helping transfer to another bed, daughter present LUNGS: NC, tachypneic HEART: tachycardic ABD: distended NEURO/PSYCH: A & O 3 A/P: S/p right colon resection and hemorrhoidectomy SBO - CT as above Resp distress, abnormal CT chest - transferred to ICU Leukopenia, anemia, VISHNU -- Note order for NG, will follow. RADHA JUSTICE Dec 22, 2018 12:12
--- NOTE | 2018-12-22 12:30 | PDOC ---
SURGICAL PROGRESS NOTE Subjective Patient seen in the intensive care unit having more difficulty with respirations states she feels bloated no abdominal pain Vital Signs Vital Signs Date Time Temp Pulse Resp B/P (MAP) Pulse Ox O2 Delivery O2 Flow Rate FiO2 12/22/18 11:00 98.1 108 20 141/88 (105) 100 Nasal Cannula 3.0 98.1 I&O Intake and Output 12/22/18 07:01 Intake Total 220 ml Balance 220 ml Intake Oral 220 ml # Voids 7 PATIENT HAS A PILLAI: No General: Alert, Oriented X3, Cooperative, moderate distress (hypoactive bowel sounds moderately distended nontender to palpation) Labs Laboratory Tests Test 12/20/18 14:45 12/20/18 16:43 12/20/18 20:51 12/21/18 04:40 White Blood Count 3.9 x10^3/uL (4.0-11.0) 3.1 x10^3/uL (4.0-11.0) Red Blood Count 3.46 x10^6/uL (3.50-5.40) 3.34 x10^6/uL (3.50-5.40) Hemoglobin 8.5 g/dL (12.0-15.5) 8.3 g/dL (12.0-15.5) Hematocrit 27.0 % (36.0-47.0) 25.8 % (36.0-47.0) Mean Corpuscular Volume 78 fL (79-100) 77 fL (79-100) Mean Corpuscular Hemoglobin 25 pg (25-35) 25 pg (25-35) Mean Corpuscular Hemoglobin Concent 32 g/dL (31-37) 32 g/dL (31-37) Red Cell Distribution Width 23.4 % (11.5-14.5) 23.6 % (11.5-14.5) Platelet Count 217 x10^3/uL (140-400) 215 x10^3/uL (140-400) Neutrophils (%) (Auto) 68 % (31-73) 74 % (31-73) Lymphocytes (%) (Auto) 14 % (24-48) 14 % (24-48) Monocytes (%) (Auto) 18 % (0-9) 12 % (0-9) Eosinophils (%) (Auto) 0 % (0-3) 0 % (0-3) Basophils (%) (Auto) 0 % (0-3) 0 % (0-3) Neutrophils # (Auto) 2.7 x10^3uL (1.8-7.7) 2.3 x10^3uL (1.8-7.7) Lymphocytes # (Auto) 0.5 x10^3/uL (1.0-4.8) 0.4 x10^3/uL (1.0-4.8) Monocytes # (Auto) 0.7 x10^3/uL (0.0-1.1) 0.4 x10^3/uL (0.0-1.1) Eosinophils # (Auto) 0.0 x10^3/uL (0.0-0.7) 0.0 x10^3/uL (0.0-0.7) Basophils # (Auto) 0.0 x10^3/uL (0.0-0.2) 0.0 x10^3/uL (0.0-0.2) Glucose (Fingerstick) 144 mg/dL (70-99) 151 mg/dL (70-99) Sodium Level 140 mmol/L (136-145) Potassium Level 4.0 mmol/L (3.5-5.1) Chloride Level 103 mmol/L (98-107) Carbon Dioxide Level 25 mmol/L (21-32) Anion Gap 12 (6-14) Blood Urea Nitrogen 34 mg/dL (7-20) Creatinine 1.1 mg/dL (0.6-1.0) Estimated GFR (Cockcroft-Gault) 58.7 BUN/Creatinine Ratio 31 (6-20) Glucose Level 157 mg/dL (70-99) Calcium Level 9.3 mg/dL (8.5-10.1) Total Bilirubin 0.4 mg/dL (0.2-1.0) Aspartate Amino Transf (AST/SGOT) 12 U/L (15-37) Alanine Aminotransferase (ALT/SGPT) 12 U/L (14-59) Alkaline Phosphatase 54 U/L (46-116) Total Protein 6.7 g/dL (6.4-8.2) Albumin 2.6 g/dL (3.4-5.0) Albumin/Globulin Ratio 0.6 (1.0-1.7) Test 12/21/18 07:36 12/21/18 09:53 12/21/18 10:25 12/21/18 10:56 Glucose (Fingerstick) 170 mg/dL (70-99) 179 mg/dL (70-99) O2 Saturation 91 % (92-99) Arterial Blood pH 7.46 (7.35-7.45) Arterial Blood pCO2 at Patient Temp 32 mmHg (35-46) Arterial Blood pO2 at Patient Temp 63 mmHg (65-108) Arterial Blood HCO3 22 mmol/L (21-28) Arterial Blood Base Excess -1 mmol/L (-3-3) FiO2 32 Lactic Acid Level 1.6 mmol/L (0.4-2.0) Test 12/21/18 16:34 12/21/18 21:20 12/22/18 06:00 12/22/18 07:16 Glucose (Fingerstick) 171 mg/dL (70-99) 118 mg/dL (70-99) 135 mg/dL (70-99) O2 Saturation 93 % (92-99) Arterial Blood pH 7.44 (7.35-7.45) Arterial Blood pCO2 at Patient Temp 34 mmHg (35-46) Arterial Blood pO2 at Patient Temp 71 mmHg (65-108) Arterial Blood pO2 (Temp corrected) mmHg Arterial Blood HCO3 23 mmol/L (21-28) Arterial Blood Base Excess -1 mmol/L (-3-3) FiO2 35 Test 12/22/18 09:50 Sodium Level 144 mmol/L (136-145) Potassium Level 4.1 mmol/L (3.5-5.1) Chloride Level 106 mmol/L (98-107) Carbon Dioxide Level 24 mmol/L (21-32) Anion Gap 14 (6-14) Blood Urea Nitrogen 42 mg/dL (7-20) Creatinine 1.2 mg/dL (0.6-1.0) Estimated GFR (Cockcroft-Gault) 53.0 Glucose Level 134 mg/dL (70-99) Calcium Level 9.4 mg/dL (8.5-10.1) Laboratory Tests Test 12/21/18 16:34 12/21/18 21:20 12/22/18 06:00 12/22/18 07:16 Glucose (Fingerstick) 171 mg/dL (70-99) 118 mg/dL (70-99) 135 mg/dL (70-99) O2 Saturation 93 % (92-99) Arterial Blood pH 7.44 (7.35-7.45) Arterial Blood pCO2 at Patient Temp 34 mmHg (35-46) Arterial Blood pO2 at Patient Temp 71 mmHg (65-108) Arterial Blood pO2 (Temp corrected) mmHg Arterial Blood HCO3 23 mmol/L (21-28) Arterial Blood Base Excess -1 mmol/L (-3-3) FiO2 35 Test 12/22/18 09:50 Sodium Level 144 mmol/L (136-145) Potassium Level 4.1 mmol/L (3.5-5.1) Chloride Level 106 mmol/L (98-107) Carbon Dioxide Level 24 mmol/L (21-32) Anion Gap 14 (6-14) Blood Urea Nitrogen 42 mg/dL (7-20) Creatinine 1.2 mg/dL (0.6-1.0) Estimated GFR (Cockcroft-Gault) 53.0 Glucose Level 134 mg/dL (70-99) Calcium Level 9.4 mg/dL (8.5-10.1) I have reviewed the following Viewed CT scan showing dilated loops of small bowel consistent with ileus versus bowel obstruction she also has some pleural effusions bilaterally with some atelectasis Assessment/Plan Abdominal distention likely due to ileus. Will place NG tube to low intermittent suction Patient transferred to ICU for pulmonary care Path report on right colon showed ulceration within the cecum no evidence of malignancy her hemoglobin is improving DAYLIN WEI MD Dec 22, 2018 12:30
--- NOTE | 2018-12-22 14:30 | RAD ---
EXAM: Abdomen, single view. HISTORY: Nasogastric tube placement. COMPARISON: CT obtained on the same date. FINDINGS: Frontal views of the abdomen are obtained. The initial image demonstrates a nasogastric tube looped within the stomach. The second image demonstrates slight interval retraction of the nasogastric tube with a single loop within the stomach. There are distended air-filled loops of bowel throughout the abdomen. No free air is seen. There is suspected bilateral lower lobe atelectasis or interstitial infiltrate. There are small bilateral pleural effusions. IMPRESSION: 1. Nasogastric tube looped within the stomach. 2. Distended loops of bowel throughout the abdomen. This is better characterized on the CT obtained earlier on the same date. Electronically signed by: Judy Valencia MD (12/22/2018 2:26 PM) [place] [id number]
--- NOTE | 2018-12-22 15:15 | CONS ---
DATE OF CONSULTATION: ATTENDING PHYSICIAN: Dr. Ball. REASON FOR CONSULTATION: Dyspnea, hypoxia. HISTORY OF PRESENT ILLNESS: The patient is a 73-year-old female who has ongoing issues with GI bleed for several months. She was followed by Dr. Austin. She had a previous CT at [facility] which showed fecal extravasation in the mid sigmoid area. Bleeding scan was negative. She was evaluated by Dr. Montoya and was suspected to have cecal ulceration. She had colonoscopy done with active bleeding hemorrhoids. She underwent laparoscopic-assisted right colon resection and hemorrhoidectomy. Postoperatively, I was asked today because of increasing dyspnea. She was noted to have increasing abdominal distention. She had a CT chest and abdomen, which was reviewed by me. It shows multiple dilated small loops of bowel consistent with small-bowel obstruction. There was 8 mm faint density seen in the right upper lobe area. There are bibasilar atelectases. She now has an NG tube to decompression. She says she has a mild cough. No chest pains. No vomiting, no diarrhea. Her bowels are distended. Consultation requested for further evaluation and management. ABGs obtained and showed a pH of 7.44, pCO2 of 34 and a pO2 of 71 on 35% FiO2. PAST MEDICAL HISTORY: Significant for history of COPD, bronchitis, hypertension. PAST SURGICAL HISTORY: No recent surgery. SOCIAL HISTORY: Smoked for about 35 years. Has not quit. ALLERGIES: PENICILLIN. MEDICATIONS: Reviewed, as listed in the MRAD, including antibiotics, Lovenox for DVT prophylaxis, and schedule albuterol nebulizer. REVIEW OF SYSTEMS: Limited, but pertinent positives discussed in my history of present illness, otherwise noncontributory. PHYSICAL EXAMINATION: VITAL SIGNS: Reviewed. Blood pressure is stable, afebrile, pulse ox 100% on 3 liters. NECK: Supple. LUNGS: With clear breath sounds. CARDIOVASCULAR: Regular rate. ABDOMEN: Distended, decreased bowel sounds. EXTREMITIES: With no pitting edema. LABORATORY DATA: Reviewed. ABGs as discussed in my history of present illness. BUN 42, creatinine 1.2. INR 1.1. White cell count 3.1, hemoglobin 8.3 and platelets are 250. IMPRESSION: 1. Acute hypoxic respiratory failure secondary to underlying chronic obstructive pulmonary disease and increasing abdominal distention related to postop ileus. 2. Gastrointestinal bleed/cecal ulceration by colonoscopy, status post laparoscopic-assisted right colon resection and hemorrhoidectomy. 3. Postoperative ileus. 4. Underlying chronic obstructive pulmonary disease. 5. Abnormal CT chest with focal opacity in the right upper lobe, could be nodule. Needs to have a followup in 4-6 months. She also has bibasilar atelectasis, caused by abdominal distention. Clinically, less likely pneumonia. RECOMMENDATIONS AND PLAN: 1. Continue with present oxygen. 2. Continue bronchodilators. 3. DVT prophylaxis. 4. Antibiotics. 5. Bowel decompression per Surgery and GI. 6. ABGs are adequate, we will watch respiratory status closely. 7. May consider p.r.n. BiPAP if needed. 8. Discussed with the patient's daughter. Discussed with RN and we will follow along with you. Critical care time 35 minutes. JEF CARLIN MD DR: DAKOTA/courtney JOB#: [id number] / [id number]
[2018-12-22] MEDS: IV NORMAL SALINE 1000ML BAG 1,000 ML IV SCH (15:19)
--- NOTE | 2018-12-22 15:54 | PDOC ---
PROGRESS NOTES Chief Complaint Chief Complaint patient sob and anxious overnight. given multiple doses of ativan. now sob this AM. for CT scan of abdomen in AM History of Present Illness History of Present Illness Assessment/Plan 1. Acute hypoxic respiratory failure secondary to underlying chronic obstructive pulmonary disease and increasing abdominal distention related to postop ileus: continue supplemental 02. prn BIPAP if needed. transfer to ICU. decompress bowel with NG tube. NPO for now. GI and Gen sx following 2. S/p right colon resection and hemorrhoidectomy secondary to bleeding cecal ulcer, path negative for malignancy 3. Underlying COPD. bronchodilator therapy 4. VISHNU, resolving 5. Sepsis/Leukopenia. started cefepime. check cultures. apprec ID 6. Gi bleed acute ,Questionable GI bleed with anemia marked anemia POA. hb stable Colonoscopy in 11/2017 showed diverticulosis, EGD 11/2018 showed non-erosive gastritis Operative Note Date: 12/17/2018 Preoperative diagnosis: GI bleed cecal ulceration by colonoscopy with active bleeding hemorrhoids Postoperative diagnosis: Same Procedure: Laparoscopic-assisted right colon resection and hemorrhoidectomy Surgeon: Jan Specimen: Right colon and hemorrhoids Vitals Vitals Vital Signs Date Time Temp Pulse Resp B/P (MAP) Pulse Ox O2 Delivery O2 Flow Rate FiO2 12/22/18 11:00 98.1 108 20 141/88 (105) 100 Nasal Cannula 3.0 98.1 Physical Exam Physical Exam GENERAL: Alert, oriented female, not in distress. VITAL SIGNS: Stable. tachypneic HEENT: NAD. NECK: Supple, no JVP, no lymphadenopathy. LUNGS: Clear. HEART: S1, S2 regular. ABDOMEN: Benign. The patient's incisions are well approximated without any signs of infection. There is no tenderness, rebound or guarding. No organomegaly. EXTREMITIES: No edema or cyanosis. SKIN: Unremarkable. NEUROLOGIC: The patient is neurologically intact. General: Alert, Oriented X3, Cooperative, moderate distress (hypoactive bowel sounds moderately distended nontender to palpation) Heart: Regular rate, Normal S1, Normal S2, No murmurs Lungs: Clear Abdomen: Other (distended, lap dressings in place) Extremities: No clubbing, No cyanosis, No edema Skin: No significant lesion Labs LABS Laboratory Tests Test 12/21/18 16:34 12/21/18 21:20 12/22/18 06:00 12/22/18 07:16 Glucose (Fingerstick) 171 mg/dL (70-99) 118 mg/dL (70-99) 135 mg/dL (70-99) O2 Saturation 93 % (92-99) Arterial Blood pH 7.44 (7.35-7.45) Arterial Blood pCO2 at Patient Temp 34 mmHg (35-46) Arterial Blood pO2 at Patient Temp 71 mmHg (65-108) Arterial Blood pO2 (Temp corrected) mmHg Arterial Blood HCO3 23 mmol/L (21-28) Arterial Blood Base Excess -1 mmol/L (-3-3) FiO2 35 Test 12/22/18 09:50 Sodium Level 144 mmol/L (136-145) Potassium Level 4.1 mmol/L (3.5-5.1) Chloride Level 106 mmol/L (98-107) Carbon Dioxide Level 24 mmol/L (21-32) Anion Gap 14 (6-14) Blood Urea Nitrogen 42 mg/dL (7-20) Creatinine 1.2 mg/dL (0.6-1.0) Estimated GFR (Cockcroft-Gault) 53.0 Glucose Level 134 mg/dL (70-99) Calcium Level 9.4 mg/dL (8.5-10.1) Comment Review of Relevant I have reviewed the following items abdifatah (where applicable) has been applied. Labs Laboratory Tests Test 12/20/18 16:43 12/20/18 20:51 12/21/18 04:40 12/21/18 07:36 Glucose (Fingerstick) 144 mg/dL (70-99) 151 mg/dL (70-99) 170 mg/dL (70-99) White Blood Count 3.1 x10^3/uL (4.0-11.0) Red Blood Count 3.34 x10^6/uL (3.50-5.40) Hemoglobin 8.3 g/dL (12.0-15.5) Hematocrit 25.8 % (36.0-47.0) Mean Corpuscular Volume 77 fL (79-100) Mean Corpuscular Hemoglobin 25 pg (25-35) Mean Corpuscular Hemoglobin Concent 32 g/dL (31-37) Red Cell Distribution Width 23.6 % (11.5-14.5) Platelet Count 215 x10^3/uL (140-400) Neutrophils (%) (Auto) 74 % (31-73) Lymphocytes (%) (Auto) 14 % (24-48) Monocytes (%) (Auto) 12 % (0-9) Eosinophils (%) (Auto) 0 % (0-3) Basophils (%) (Auto) 0 % (0-3) Neutrophils # (Auto) 2.3 x10^3uL (1.8-7.7) Lymphocytes # (Auto) 0.4 x10^3/uL (1.0-4.8) Monocytes # (Auto) 0.4 x10^3/uL (0.0-1.1) Eosinophils # (Auto) 0.0 x10^3/uL (0.0-0.7) Basophils # (Auto) 0.0 x10^3/uL (0.0-0.2) Sodium Level 140 mmol/L (136-145) Potassium Level 4.0 mmol/L (3.5-5.1) Chloride Level 103 mmol/L (98-107) Carbon Dioxide Level 25 mmol/L (21-32) Anion Gap 12 (6-14) Blood Urea Nitrogen 34 mg/dL (7-20) Creatinine 1.1 mg/dL (0.6-1.0) Estimated GFR (Cockcroft-Gault) 58.7 BUN/Creatinine Ratio 31 (6-20) Glucose Level 157 mg/dL (70-99) Calcium Level 9.3 mg/dL (8.5-10.1) Total Bilirubin 0.4 mg/dL (0.2-1.0) Aspartate Amino Transf (AST/SGOT) 12 U/L (15-37) Alanine Aminotransferase (ALT/SGPT) 12 U/L (14-59) Alkaline Phosphatase 54 U/L (46-116) Total Protein 6.7 g/dL (6.4-8.2) Albumin 2.6 g/dL (3.4-5.0) Albumin/Globulin Ratio 0.6 (1.0-1.7) Test 12/21/18 09:53 12/21/18 10:25 12/21/18 10:56 12/21/18 16:34 O2 Saturation 91 % (92-99) Arterial Blood pH 7.46 (7.35-7.45) Arterial Blood pCO2 at Patient Temp 32 mmHg (35-46) Arterial Blood pO2 at Patient Temp 63 mmHg (65-108) Arterial Blood HCO3 22 mmol/L (21-28) Arterial Blood Base Excess -1 mmol/L (-3-3) FiO2 32 Lactic Acid Level 1.6 mmol/L (0.4-2.0) Glucose (Fingerstick) 179 mg/dL (70-99) 171 mg/dL (70-99) Test 12/21/18 21:20 12/22/18 06:00 12/22/18 07:16 12/22/18 09:50 Glucose (Fingerstick) 118 mg/dL (70-99) 135 mg/dL (70-99) O2 Saturation 93 % (92-99) Arterial Blood pH 7.44 (7.35-7.45) Arterial Blood pCO2 at Patient Temp 34 mmHg (35-46) Arterial Blood pO2 at Patient Temp 71 mmHg (65-108) Arterial Blood pO2 (Temp corrected) mmHg Arterial Blood HCO3 23 mmol/L (21-28) Arterial Blood Base Excess -1 mmol/L (-3-3) FiO2 35 Sodium Level 144 mmol/L (136-145) Potassium Level 4.1 mmol/L (3.5-5.1) Chloride Level 106 mmol/L (98-107) Carbon Dioxide Level 24 mmol/L (21-32) Anion Gap 14 (6-14) Blood Urea Nitrogen 42 mg/dL (7-20) Creatinine 1.2 mg/dL (0.6-1.0) Estimated GFR (Cockcroft-Gault) 53.0 Glucose Level 134 mg/dL (70-99) Calcium Level 9.4 mg/dL (8.5-10.1) Laboratory Tests Test 12/21/18 16:34 12/21/18 21:20 12/22/18 06:00 12/22/18 07:16 Glucose (Fingerstick) 171 mg/dL (70-99) 118 mg/dL (70-99) 135 mg/dL (70-99) O2 Saturation 93 % (92-99) Arterial Blood pH 7.44 (7.35-7.45) Arterial Blood pCO2 at Patient Temp 34 mmHg (35-46) Arterial Blood pO2 at Patient Temp 71 mmHg (65-108) Arterial Blood pO2 (Temp corrected) mmHg Arterial Blood HCO3 23 mmol/L (21-28) Arterial Blood Base Excess -1 mmol/L (-3-3) FiO2 35 Test 12/22/18 09:50 Sodium Level 144 mmol/L (136-145) Potassium Level 4.1 mmol/L (3.5-5.1) Chloride Level 106 mmol/L (98-107) Carbon Dioxide Level 24 mmol/L (21-32) Anion Gap 14 (6-14) Blood Urea Nitrogen 42 mg/dL (7-20) Creatinine 1.2 mg/dL (0.6-1.0) Estimated GFR (Cockcroft-Gault) 53.0 Glucose Level 134 mg/dL (70-99) Calcium Level 9.4 mg/dL (8.5-10.1) Microbiology 12/21/18 Blood Culture - Preliminary, Resulted NO GROWTH AFTER 1 DAY Medications Current Medications Sodium Chloride 1,000 ml @ 1,000 mls/hr 1X ONCE IV Last administered on 13:52; Start 12/14/18 at 13:30; Stop 12/14/18 at 14:29; Status DC Amlodipine Besylate (Norvasc) 10 mg DAILY PO Last administered on 12/22/18 10: 30; Start 12/14/18 at 17:00 Chlorhexidine Gluconate (Peridex) 15 ml BID MM Last administered on 12/22/18 10 :28; Start 12/14/18 at 21:00 Non-Formulary Medication (Albuterol Sulfate (Ventolin Hfa Inhaler)) 2 puff Q4HRS INH ; Start 12/14/18 at 20:00; Status UNV Ascorbic Acid (Vitamin C) 500 mg DAILY PO Last administered on 12/22/18 10:30; Start 12/14/18 at 17:00 Duloxetine HCl (Cymbalta) 90 mg DAILY PO Last administered on 12/22/18 10:30; Start 12/14/18 at 17:00 Ferrous Sulfate (Feosol) 325 mg DAILYWBKFT PO Last administered on 12/22/18 10: 30; Start 12/14/18 at 17:00 Losartan Potassium (Cozaar) 100 mg DAILY PO Last administered on 12/22/18 10:29 ; Start 12/14/18 at 17:00 Memantine (Namenda) 10 mg BID PO Last administered on 12/22/18 10:30; Start at 21:00 Pantoprazole Sodium (Protonix) 40 mg DAILYAC PO Last administered on 12/22/18 05:28; Start 12/14/18 at 17:00 Ropinirole HCl (Requip) 3 mg QHS PO Last administered on 12/21/18 22:02; Start 12/14/18 at 21:00 Spironolactone (Aldactone) 25 mg DAILY PO Last administered on 12/22/18 10:29; Start 12/14/18 at 17:00 Albuterol Sulfate (Ventolin Neb Soln) 2.5 mg Q4HRS NEB Last administered on 12/22 10:53; Start 12/14/18 at 20:00 Sodium Chloride 1,000 ml @ 80 mls/hr [id number] IV Last administered on 12/22/18 15:19; Start 12/14/18 at 17:15 Acetaminophen (Tylenol) 650 mg PRN Q6HRS PRN PO Pain Last administered on 21:27; Start 12/15/18 at 04:45 Polyethylene Glycol (miraLAX Powder BULK BOTTLE) 238 gm 1X ONCE PO Last administered on 12/15/18at 12:48; Start 12/15/18 at 12:00; Stop 12/15/18 at 12:01 ; Status DC Ondansetron HCl (Zofran) 4 mg PRN Q6HRS PRN IV NAUSEA/VOMITING; Start 12/16/18 at 07:00; Stop 12/17/18 at 06:59; Status DC Fentanyl Citrate (Fentanyl 2ml Vial) 25 mcg PRN Q5MIN PRN IV MILD PAIN; Start 12/16/18 at 07:00; Stop 12/16/18 at 16:33; Status DC Fentanyl Citrate (Fentanyl 2ml Vial) 50 mcg PRN Q5MIN PRN IV MODERATE TO SEVERE PAIN; Start 12/16/18 at 07:00; Stop 12/16/18 at 16:33; Status DC Morphine Sulfate (Morphine Sulfate) 1 mg PRN Q10MIN PRN IV SEVERE PAIN; Start 12/16/18 at 07:00; Stop 12/17/18 at 06:59; Status DC Ringer's Solution 1,000 ml @ 30 mls/hr Q24H IV Last administered on 12/16/18at 13:00; Start 12/16/18 at 07:00; Stop 12/16/18 at 18:59; Status DC Lidocaine HCl (Xylocaine-Mpf 1% 2ml Vial) 2 ml PRN 1X PRN ID IV START; Start at 07:00; Stop 12/17/18 at 06:59; Status DC Hydromorphone HCl (Dilaudid) 0.5 mg PRN Q10MIN PRN IV SEV PAIN, Second choice; Start 12/16/18 at 07:00; Stop 12/17/18 at 06:59; Status DC Prochlorperazine Edisylate (Compazine) 5 mg PACU PRN PRN IV NAUSEA, MRX1; Start 12/16/18 at 07:00; Stop 12/17/18 at 06:59; Status DC Midazolam HCl (Versed) 2 mg PRN 1X PRN IV PRIOR TO PROCEDURE; Start 12/16/18 at 07:15; Stop 12/17/18 at 07:14; Status DC Fentanyl Citrate (Fentanyl 2ml Vial) 25 mcg PRN Q5MIN PRN IV X 2 DOSES FOR PAIN ; Start 12/16/18 at 07:15; Stop 12/16/18 at 16:33; Status DC Fentanyl Citrate (Fentanyl 2ml Vial) 50 mcg PRN Q5MIN PRN IV X 2 DOSES FOR PAIN ; Start 12/16/18 at 07:15; Stop 12/16/18 at 16:34; Status DC Ringer's Solution 1,000 ml @ 125 mls/hr Q8H IV ; Start 12/16/18 at 07:13; Stop 12/16/18 at 19:12; Status DC Lidocaine HCl (Xylocaine-Mpf 1% 2ml Vial) 2 ml 1X PRN PRN ID IV START; Start at 07:15; Stop 12/17/18 at 07:14; Status DC Propofol 40 ml @ As Directed STK-MED ONCE IV ; Start 12/16/18 at 13:58; Stop at 14:00; Status DC Prochlorperazine Edisylate (Compazine) 5 mg PACU PRN PRN IV NAUSEA, MRX1; Start 12/17/18 at 07:00; Stop 12/18/18 at 06:59; Status DC Hydromorphone HCl (Dilaudid) 0.5 mg PRN Q10MIN PRN IV SEV PAIN, Second choice; Start 12/17/18 at 07:00; Stop 12/18/18 at 06:59; Status DC Lidocaine HCl (Xylocaine-Mpf 1% 2ml Vial) 2 ml PRN 1X PRN ID IV START; Start at 07:00; Stop 12/18/18 at 06:59; Status DC Ringer's Solution 1,000 ml @ 30 mls/hr Q24H IV Last administered on 12/17/18at 10:34; Start 12/17/18 at 07:00; Stop 12/17/18 at 18:59; Status DC Morphine Sulfate (Morphine Sulfate) 1 mg PRN Q10MIN PRN IV SEVERE PAIN; Start 12/17/18 at 07:00; Stop 12/18/18 at 06:59; Status DC Fentanyl Citrate (Fentanyl 2ml Vial) 50 mcg PRN Q5MIN PRN IV MODERATE TO SEVERE PAIN Last administered on 12/17/18at 11:13; Start 12/17/18 at 07:00; Stop at 06:59; Status DC Fentanyl Citrate (Fentanyl 2ml Vial) 25 mcg PRN Q5MIN PRN IV MILD PAIN; Start 12/17/18 at 07:00; Stop 12/18/18 at 06:59; Status DC Ondansetron HCl (Zofran) 4 mg PRN Q6HRS PRN IV NAUSEA/VOMITING; Start 12/17/18 at 07:00; Stop 12/18/18 at 06:59; Status DC Propofol 20 ml @ As Directed STK-MED ONCE IV ; Start 12/17/18 at 07:21; Stop 12/17 at 07:23; Status DC Albuterol Sulfate (Ventolin Neb Soln) 2.5 mg 1X ONCE NEB ; Start 12/17/18 at 07: 30; Stop 12/17/18 at 07:31; Status DC Lidocaine HCl (Lidocaine Pf 2% Vial) 5 ml STK-MED ONCE .ROUTE ; Start 12/17/18 at 07:21; Stop 12/17/18 at 07:23; Status DC Succinylcholine Chloride (Anectine) 200 mg STK-MED ONCE .ROUTE ; Start 12/17/18 at 07:21; Stop 12/17/18 at 07:23; Status DC Rocuronium [place] (Zemuron) 50 mg STK-MED ONCE .ROUTE ; Start 12/17/18 at 07:21 ; Stop 12/17/18 at 07:23; Status DC Fentanyl Citrate (Fentanyl 2ml Vial) 100 mcg STK-MED ONCE .ROUTE ; Start at 07:21; Stop 12/17/18 at 07:24; Status DC Cefazolin Sodium/ Dextrose 50 ml @ 100 mls/hr 1X ONCE IV Last administered on 12/17/18at 08:07; Start 12/17/18 at 07:45; Stop 12/17/18 at 08:18; Status DC Bupivacaine HCl/ Epinephrine Bitart (Sensorcain-Mpf Epi 0.5%-1:149396) 30 ml STK -MED ONCE .ROUTE Last administered on 12/17/18at 08:34; Start 12/17/18 at 07:46; Stop 12/17/18 at 07:49; Status DC Neomycin/ Polymyxin/ Bacitracin (Triple Antibiotic Ointment) 1 pkt STK-MED ONCE TP Last administered on 12/17/18at 10:07; Start 12/17/18 at 07:46; Stop 12/17/18 at 07:49; Status DC Neomycin/ Polymyxin/ Bacitracin (Triple Antibiotic Ointment) 1 pkt STK-MED ONCE TP Last administered on 12/17/18at 10:07; Start 12/17/18 at 07:46; Stop 12/17/18 at 07:49; Status DC Neomycin/ Polymyxin/ Bacitracin (Triple Antibiotic Ointment) 1 pkt STK-MED ONCE TP ; Start 12/17/18 at 07:47; Stop 12/17/18 at 07:49; Status DC Dexamethasone Sodium Phosphate (Decadron) 20 mg STK-MED ONCE .ROUTE ; Start 12/17 at 07:54; Stop 12/17/18 at 07:56; Status DC Hydrocortisone Sodium Succinate (Solu-CORTEF) 100 mg STK-MED ONCE .ROUTE ; Start 12/17/18 at 07:54; Stop 12/17/18 at 07:56; Status DC Desflurane (Suprane) 90 ml STK-MED ONCE IH ; Start 12/17/18 at 07:54; Stop at 07:56; Status DC Neostigmine Methylsulfate (Bloxiverz) 10 mg STK-MED ONCE .ROUTE ; Start 12/17/18 at 08:21; Stop 12/17/18 at 08:24; Status DC Glycopyrrolate (Robinul) 1 mg STK-MED ONCE .ROUTE ; Start 12/17/18 at 08:21; Stop 12/17/18 at 08:24; Status DC Phenylephrine HCl (Bogdan-Synephrine Inj) 10 mg STK-MED ONCE .ROUTE ; Start at 08:23; Stop 12/17/18 at 08:26; Status DC Desflurane (Suprane) 60 ml STK-MED ONCE IH ; Start 12/17/18 at 09:23; Stop at 09:26; Status DC Bupivacaine HCl/ Epinephrine Bitart (Sensorcain-Mpf Epi 0.5%-1:328859) 30 ml STK -MED ONCE .ROUTE Last administered on 12/17/18 10:06; Start 12/17/18 at 09:41; Stop 12/17/18 at 09:43; Status DC Morphine Sulfate (Morphine Sulfate) 2 mg PRN Q2HR PRN IV PAIN Last administered on 12/21/18 16:30; Start 12/17/18 at 10:15 Ketorolac Tromethamine (Toradol 15mg Vial) 15 mg Q6HRS IV Last administered on 12/18/18 05:39; Start 12/17/18 at 12:00; Stop 12/18/18 at 10:00; Status DC Artificial Tears (Artificial Tears) 1 drop PRN Q15MIN PRN OU DRY EYE Last administered on 12/20/18 21:28; Start 12/18/18 at 08:00 Docusate Sodium (Colace) 100 mg DAILY PO Last administered on 12/22/18 10:29; Start 12/18/18 at 10:00 Throat Lozenges (Cepacol Sore Throat Lozenge) 1 kristyn PRN Q2HRS PRN PO SORE THROAT Last administered on 12/20/18 19:46; Start 12/18/18 at 14:00 Enoxaparin Sodium (Lovenox 40mg Syringe) 40 mg Q24H SQ Last administered on 12/22 10:31; Start 12/19/18 at 09:00 Ondansetron HCl (Zofran) 4 mg PRN Q6HRS PRN IV NAUSEA/VOMITING Last administered on 12/21/18 13:31; Start 12/19/18 at 11:30 Insulin Human Lispro (HumaLOG) 0-5 UNITS TIDWMEALS SQ ; Start 12/19/18 at 17:00 Dextrose (Dextrose 50%-Water Syringe) 12.5 gm PRN Q15MIN PRN IV SEE COMMENTS; Start 12/19/18 at 16:45 Levofloxacin/ Dextrose 100 ml @ 100 mls/hr 1X ONCE IV Last administered on 20:56; Start 12/19/18 at 21:00; Stop 12/19/18 at 21:59; Status DC Cefepime HCl (Maxipime) 2 gm Q12HR IVP Last administered on 12/22/18 10:25; Start 12/21/18 at 10:00 Sodium Chloride 1,000 ml @ 125 mls/hr 1X ONCE IV Last administered on 10:43; Start 12/21/18 at 09:45; Stop 12/21/18 at 17:44; Status DC Calcium Carbonate/ Glycine (Tums) 500 mg PRN AFTMEALHC PRN PO INDIGESTION Last administered on 12/21/18 13:10; Start 12/21/18 at 12:15 Lorazepam (Ativan) 1 mg 1X ONCE IV Last administered on 12/21/18 17:50; Start 12/21/18 at 17:30; Stop 12/21/18 at 17:31; Status DC Albuterol Sulfate (Ventolin Neb Soln) 2.5 mg PRN Q2HRS PRN NEB SHORTNESS OF BREATH; Start 12/21/18 at 17:30 Nicotine (Nicoderm Cq 14mg) 1 patch PRN DAILY PRN TD SMOKING CESSATION; Start 12/21/18 at 19:30 Lorazepam (Ativan) 1 mg 1X ONCE IV Last administered on 12/21/18 23:45; Start 12/21/18 at 23:45; Stop 12/21/18 at 23:46; Status DC Lorazepam (Ativan) 1 mg PRN Q4HRS PRN IV ANXIETY / AGITATION Last administered on 12/22/18at 11:15; Start 12/21/18 at 23:30; Stop 12/22/18 at 14:42; Status DC Sodium Chloride 1,000 ml @ 250 mls/hr 1X ONCE IV Last administered on at 09:15; Start 12/22/18 at 09:15; Stop 12/22/18 at 13:14; Status DC Active Scripts Active Chlorhexidine Gluconate 473 Ml Mouthwash 473 Ml MM BID 7 Days Vitamin C (Ascorbate Calcium) 500 Mg Tablet 500 Mg PO DAILY 30 Days Slow Release Iron (Ferrous Sulfate) 250 Mg Tablet.er 250 Mg PO DAILY 30 Days Protonix (Pantoprazole Sodium) 40 Mg Granpkt.dr 40 Mg PO DAILY 30 Days Reported Metformin Hcl Er (Metformin Hcl) 500 Mg Tab.er.24h 1 Tab PO DAILY Namenda (Memantine Hcl) 10 Mg Tablet 1 Tab PO BID Losartan Potassium 100 Mg Tablet 100 Mg PO DAILY Spironolactone 25 Mg Tablet 1 Tab PO DAILY Ventolin Hfa Inhaler (Albuterol Sulfate) 18 Gm Hfa.aer.ad 2 Puff INH Q4HRS Cymbalta (Duloxetine Hcl) 20 Mg Capsule.dr 90 Mg PO DAILY Requip (Ropinirole Hcl) 1 Mg Tablet 3 Mg PO DAILY Amlodipine Besylate 10 Mg Tablet 10 Mg PO DAILY Vitals/I & O Vital Sign - Last 24 Hours 12/21/18 12/21/18 12/21/18 12/21/18 16:30 17:03 19:00 20:00 Temp 98.7 98.7 Pulse 97 Resp 18 B/P (MAP) 131/86 (101) Pulse Ox 96 96 95 O2 Delivery Nasal Cannula Nasal Cannula Venturi Mask Venturi Mask O2 Flow Rate 3.0 3.0 3.0 3.0 12/21/18 12/22/18 12/22/18 12/22/18 22:55 03:00 03:40 07:00 Temp 97.5 97.5 98.8 97.5 97.5 98.8 Pulse 101 107 100 Resp 18 26 20 B/P (MAP) 133/89 (104) 125/84 (98) 139/93 (108) Pulse Ox 97 90 96 100 O2 Delivery Venturi Mask Venturi Mask Venturi Mask Venturi Mask O2 Flow Rate 3.0 3.0 10.0 3.0 12/22/18 12/22/18 12/22/18 12/22/18 07:19 08:09 10:29 10:30 Pulse 100 100 B/P (MAP) 139/93 139/93 Pulse Ox 100 O2 Delivery Venturi Mask Venturi Mask O2 Flow Rate 10.0 10.0 12/22/18 11:00 Temp 98.1 98.1 Pulse 108 Resp 20 B/P (MAP) 141/88 (105) Pulse Ox 100 O2 Delivery Nasal Cannula O2 Flow Rate 3.0 Intake and Output 12/21/18 12/21/18 12/22/18 15:01 23:01 07:01 Intake Total 220 ml Balance 220 ml NICOLE RETANA MD Dec 22, 2018 15:54
[2018-12-22] MEDS: rOPINIRole 1 MG TABLET. PO SCH (20:19)
[2018-12-23] VITALS (15 sets, daily range): BP systolic 107–137; BP diastolic 75–84
[2018-12-23] MEDS: IV NORMAL SALINE 1000ML BAG 1,000 ML IV SCH ×2 (02:35→15:25)
[2018-12-23] MEDS: MORPHINE SULFATE 4 MG/ML VIAL. IV PRN ×4 (03:40→22:35)
[2018-12-23] MEDS: ALBUTEROL SULFATE 2.5 MG/3 ML NEBU. NEB SCH ×6 (04:17→23:51)
[2018-12-23] MEDS: PANTOPRAZOLE 40 MG TABLET.DR. PO SCH (07:30)
[2018-12-23] MEDS: FERROUS SULFATE 325 MG TABLET. PO SCH (08:00)
[2018-12-23] MEDS: INSULIN LISPRO 300 UNITS/3 ML INSULN.PEN. SQ SCH ×3 (08:00→17:13)
--- NOTE | 2018-12-23 08:06 | PDOC ---
SURGICAL PROGRESS NOTE Subjective Feeling better still SOA has passed some flatus no BM. NGT with minimal output Vital Signs Vital Signs Date Time Temp Pulse Resp B/P (MAP) Pulse Ox O2 Delivery O2 Flow Rate FiO2 12/23/18 07:00 94 25 131/81 (98) 94 Nasal Cannula 3.0 12/23/18 04:00 98.4 98.4 I&O Intake and Output 12/23/18 07:01 Intake Total 2134 ml Output Total 400 ml Balance 1734 ml IV Total 2134 ml Output Urine Total 100 ml Gastric Drainage Total 300 ml # Voids 3 PATIENT HAS A PILLAI: Yes General: Alert, Oriented X3, Cooperative, mild distress Abdomen: Normal bowel sounds, Soft (distended NT) Labs Laboratory Tests Test 12/21/18 09:53 12/21/18 10:25 12/21/18 10:56 12/21/18 16:34 O2 Saturation 91 % (92-99) Arterial Blood pH 7.46 (7.35-7.45) Arterial Blood pCO2 at Patient Temp 32 mmHg (35-46) Arterial Blood pO2 at Patient Temp 63 mmHg (65-108) Arterial Blood HCO3 22 mmol/L (21-28) Arterial Blood Base Excess -1 mmol/L (-3-3) FiO2 32 Lactic Acid Level 1.6 mmol/L (0.4-2.0) Glucose (Fingerstick) 179 mg/dL (70-99) 171 mg/dL (70-99) Test 12/21/18 21:20 12/22/18 06:00 12/22/18 07:16 12/22/18 09:50 Glucose (Fingerstick) 118 mg/dL (70-99) 135 mg/dL (70-99) O2 Saturation 93 % (92-99) Arterial Blood pH 7.44 (7.35-7.45) Arterial Blood pCO2 at Patient Temp 34 mmHg (35-46) Arterial Blood pO2 at Patient Temp 71 mmHg (65-108) Arterial Blood pO2 (Temp corrected) mmHg Arterial Blood HCO3 23 mmol/L (21-28) Arterial Blood Base Excess -1 mmol/L (-3-3) FiO2 35 Sodium Level 144 mmol/L (136-145) Potassium Level 4.1 mmol/L (3.5-5.1) Chloride Level 106 mmol/L (98-107) Carbon Dioxide Level 24 mmol/L (21-32) Anion Gap 14 (6-14) Blood Urea Nitrogen 42 mg/dL (7-20) Creatinine 1.2 mg/dL (0.6-1.0) Estimated GFR (Cockcroft-Gault) 53.0 Glucose Level 134 mg/dL (70-99) Calcium Level 9.4 mg/dL (8.5-10.1) Test 12/22/18 16:39 Glucose (Fingerstick) 107 mg/dL (70-99) Laboratory Tests Test 12/22/18 09:50 12/22/18 16:39 Sodium Level 144 mmol/L (136-145) Potassium Level 4.1 mmol/L (3.5-5.1) Chloride Level 106 mmol/L (98-107) Carbon Dioxide Level 24 mmol/L (21-32) Anion Gap 14 (6-14) Blood Urea Nitrogen 42 mg/dL (7-20) Creatinine 1.2 mg/dL (0.6-1.0) Estimated GFR (Cockcroft-Gault) 53.0 Glucose Level 134 mg/dL (70-99) Calcium Level 9.4 mg/dL (8.5-10.1) Glucose (Fingerstick) 107 mg/dL (70-99) Assessment/Plan Ordered picc line so TPN can be started Continue supportive care DAYLIN WEI MD Dec 23, 2018 08:06
--- NOTE | 2018-12-23 08:18 | PDOC ---
Infectious Disease Note Subjective Subjective pt is feeling little better, no new complaints, abd distention less ROS ROS no n/v/d/sob Vital Sign Vital Signs Vital Signs Date Time Temp Pulse Resp B/P (MAP) Pulse Ox O2 Delivery O2 Flow Rate FiO2 12/23/18 08:06 92 Nasal Cannula 2.0 12/23/18 07:00 94 25 131/81 (98) 12/23/18 04:00 98.4 98.4 Physical Exam PHYSICAL EXAM GENERAL: Alert, oriented female, not in distress. VITAL SIGNS: Stable. tachypneic HEENT: NAD. NECK: Supple, no JVP, no lymphadenopathy. LUNGS: Clear. HEART: S1, S2 regular. ABDOMEN: Benign. The patient's incisions are well approximated without any signs of infection. There is no tenderness, rebound or guarding. No organomegaly. EXTREMITIES: No edema or cyanosis. SKIN: Unremarkable. NEUROLOGIC: The patient is neurologically intact. Labs Lab Laboratory Tests Test 12/22/18 09:50 12/22/18 16:39 Sodium Level 144 mmol/L (136-145) Potassium Level 4.1 mmol/L (3.5-5.1) Chloride Level 106 mmol/L (98-107) Carbon Dioxide Level 24 mmol/L (21-32) Anion Gap 14 (6-14) Blood Urea Nitrogen 42 mg/dL (7-20) Creatinine 1.2 mg/dL (0.6-1.0) Estimated GFR (Cockcroft-Gault) 53.0 Glucose Level 134 mg/dL (70-99) Calcium Level 9.4 mg/dL (8.5-10.1) Glucose (Fingerstick) 107 mg/dL (70-99) Micro Microbiology 12/19/18 Blood Culture - Preliminary, Resulted NO GROWTH AFTER 1 DAY Objective Assessment ? Sepsis,, Leukocytosis post surgery and leukopenia now, no fever S/P rt hemicolectomy COPD Pneumonia Ileus Plan Plan of Care bc neg cxr ok abg noted cefepime supportive care lactic acid normal ct chest, abd and pelvis noted d/w son DENI SALINAS MD Dec 23, 2018 08:18
--- NOTE | 2018-12-23 08:59 | PDOC ---
PROGRESS NOTES Chief Complaint Chief Complaint Yesterday patient sob and anxious overnight. given multiple doses of ativan. Still sob this AM, feeling a bit better. for CT scan of abdomen in AM showed SBO in distal ileum, transferred to ICU for better monitoring. Not passing flatus. Plan: IS PT/OT History of Present Illness History of Present Illness Assessment/Plan 1. Acute hypoxic respiratory failure secondary to underlying chronic obstructive pulmonary disease and increasing abdominal distention related to ileus: continue supplemental 02. prn BIPAP if needed. Ok to transfer out of ICU. decompress bowel with NG tube. NPO for now. GI and Gen sx following. She has an appetite, this is a positive sign 2. S/p right colon resection and hemorrhoidectomy secondary to bleeding cecal ulcer, path negative for malignancy 3. Underlying COPD. bronchodilator therapy 4. VISHNU, resolving 5. Sepsis/Leukopenia. started cefepime. check cultures. apprec ID - unclear if there is actually a pneumonia, mostly atelectatic lungs 6. Gi bleed acute ,Questionable GI bleed with anemia marked anemia POA. hb stable Colonoscopy in 11/2017 showed diverticulosis, EGD 11/2018 showed non-erosive gastritis Operative Note Date: 12/17/2018 Preoperative diagnosis: GI bleed cecal ulceration by colonoscopy with active bleeding hemorrhoids Postoperative diagnosis: Same Procedure: Laparoscopic-assisted right colon resection and hemorrhoidectomy Surgeon: Jan Specimen: Right colon and hemorrhoids Vitals Vitals Vital Signs Date Time Temp Pulse Resp B/P (MAP) Pulse Ox O2 Delivery O2 Flow Rate FiO2 12/23/18 08:06 92 Nasal Cannula 2.0 12/23/18 07:00 94 25 131/81 (98) 12/23/18 04:00 98.4 98.4 Physical Exam Physical Exam GENERAL: Alert, oriented female, not in distress. VITAL SIGNS: Stable. tachypneic HEENT: NAD. NECK: Supple, no JVP, no lymphadenopathy. LUNGS: Clear. HEART: S1, S2 regular. ABDOMEN: Benign. The patient's incisions are well approximated without any signs of infection. There is no tenderness, rebound or guarding. No organomegaly. EXTREMITIES: No edema or cyanosis. SKIN: Unremarkable. NEUROLOGIC: The patient is neurologically intact. General: Alert, Oriented X3, Cooperative, mild distress Heart: Regular rate, Normal S1, Normal S2, No murmurs Lungs: Clear Abdomen: Normal bowel sounds, Soft (distended NT) Extremities: No clubbing, No cyanosis, No edema Skin: No significant lesion Labs LABS Laboratory Tests Test 12/22/18 09:50 12/22/18 16:39 Sodium Level 144 mmol/L (136-145) Potassium Level 4.1 mmol/L (3.5-5.1) Chloride Level 106 mmol/L (98-107) Carbon Dioxide Level 24 mmol/L (21-32) Anion Gap 14 (6-14) Blood Urea Nitrogen 42 mg/dL (7-20) Creatinine 1.2 mg/dL (0.6-1.0) Estimated GFR (Cockcroft-Gault) 53.0 Glucose Level 134 mg/dL (70-99) Calcium Level 9.4 mg/dL (8.5-10.1) Glucose (Fingerstick) 107 mg/dL (70-99) Comment Review of Relevant I have reviewed the following items abdifatah (where applicable) has been applied. Labs Laboratory Tests Test 12/21/18 09:53 12/21/18 10:25 12/21/18 10:56 12/21/18 16:34 O2 Saturation 91 % (92-99) Arterial Blood pH 7.46 (7.35-7.45) Arterial Blood pCO2 at Patient Temp 32 mmHg (35-46) Arterial Blood pO2 at Patient Temp 63 mmHg (65-108) Arterial Blood HCO3 22 mmol/L (21-28) Arterial Blood Base Excess -1 mmol/L (-3-3) FiO2 32 Lactic Acid Level 1.6 mmol/L (0.4-2.0) Glucose (Fingerstick) 179 mg/dL (70-99) 171 mg/dL (70-99) Test 12/21/18 21:20 12/22/18 06:00 12/22/18 07:16 12/22/18 09:50 Glucose (Fingerstick) 118 mg/dL (70-99) 135 mg/dL (70-99) O2 Saturation 93 % (92-99) Arterial Blood pH 7.44 (7.35-7.45) Arterial Blood pCO2 at Patient Temp 34 mmHg (35-46) Arterial Blood pO2 at Patient Temp 71 mmHg (65-108) Arterial Blood pO2 (Temp corrected) mmHg Arterial Blood HCO3 23 mmol/L (21-28) Arterial Blood Base Excess -1 mmol/L (-3-3) FiO2 35 Sodium Level 144 mmol/L (136-145) Potassium Level 4.1 mmol/L (3.5-5.1) Chloride Level 106 mmol/L (98-107) Carbon Dioxide Level 24 mmol/L (21-32) Anion Gap 14 (6-14) Blood Urea Nitrogen 42 mg/dL (7-20) Creatinine 1.2 mg/dL (0.6-1.0) Estimated GFR (Cockcroft-Gault) 53.0 Glucose Level 134 mg/dL (70-99) Calcium Level 9.4 mg/dL (8.5-10.1) Test 12/22/18 16:39 Glucose (Fingerstick) 107 mg/dL (70-99) Laboratory Tests Test 12/22/18 09:50 12/22/18 16:39 Sodium Level 144 mmol/L (136-145) Potassium Level 4.1 mmol/L (3.5-5.1) Chloride Level 106 mmol/L (98-107) Carbon Dioxide Level 24 mmol/L (21-32) Anion Gap 14 (6-14) Blood Urea Nitrogen 42 mg/dL (7-20) Creatinine 1.2 mg/dL (0.6-1.0) Estimated GFR (Cockcroft-Gault) 53.0 Glucose Level 134 mg/dL (70-99) Calcium Level 9.4 mg/dL (8.5-10.1) Glucose (Fingerstick) 107 mg/dL (70-99) Microbiology 12/21/18 Blood Culture - Preliminary, Resulted NO GROWTH AFTER 1 DAY Medications Current Medications Sodium Chloride 1,000 ml @ 1,000 mls/hr 1X ONCE IV Last administered on at 13:52; Start 12/14/18 at 13:30; Stop 12/14/18 at 14:29; Status DC Amlodipine Besylate (Norvasc) 10 mg DAILY PO Last administered on 12/22/18at 10: 30; Start 12/14/18 at 17:00 Chlorhexidine Gluconate (Peridex) 15 ml BID MM Last administered on 12/22/18at 20 :19; Start 12/14/18 at 21:00 Non-Formulary Medication (Albuterol Sulfate (Ventolin Hfa Inhaler)) 2 puff Q4HRS INH ; Start 12/14/18 at 20:00; Status UNV Ascorbic Acid (Vitamin C) 500 mg DAILY PO Last administered on 12/22/18 10:30; Start 12/14/18 at 17:00 Duloxetine HCl (Cymbalta) 90 mg DAILY PO Last administered on 12/22/18 10:30; Start 12/14/18 at 17:00 Ferrous Sulfate (Feosol) 325 mg DAILYWBKFT PO Last administered on 12/22/18 10: 30; Start 12/14/18 at 17:00 Losartan Potassium (Cozaar) 100 mg DAILY PO Last administered on 12/22/18 10:29 ; Start 12/14/18 at 17:00 Memantine (Namenda) 10 mg BID PO Last administered on 12/22/18 20:18; Start at 21:00 Pantoprazole Sodium (Protonix) 40 mg DAILYAC PO Last administered on 12/22/18 05:28; Start 12/14/18 at 17:00 Ropinirole HCl (Requip) 3 mg QHS PO Last administered on 12/22/18 20:19; Start 12/14/18 at 21:00 Spironolactone (Aldactone) 25 mg DAILY PO Last administered on 12/22/18 10:29; Start 12/14/18 at 17:00 Albuterol Sulfate (Ventolin Neb Soln) 2.5 mg Q4HRS NEB Last administered on 12/23 08:04; Start 12/14/18 at 20:00 Sodium Chloride 1,000 ml @ 80 mls/hr [id number] IV Last administered on 12/23/18 02:35; Start 12/14/18 at 17:15 Acetaminophen (Tylenol) 650 mg PRN Q6HRS PRN PO Pain Last administered on 21:27; Start 12/15/18 at 04:45 Polyethylene Glycol (miraLAX Powder BULK BOTTLE) 238 gm 1X ONCE PO Last administered on 12/15/18 12:48; Start 12/15/18 at 12:00; Stop 12/15/18 at 12:01 ; Status DC Ondansetron HCl (Zofran) 4 mg PRN Q6HRS PRN IV NAUSEA/VOMITING; Start 12/16/18 at 07:00; Stop 12/17/18 at 06:59; Status DC Fentanyl Citrate (Fentanyl 2ml Vial) 25 mcg PRN Q5MIN PRN IV MILD PAIN; Start 12/16/18 at 07:00; Stop 12/16/18 at 16:33; Status DC Fentanyl Citrate (Fentanyl 2ml Vial) 50 mcg PRN Q5MIN PRN IV MODERATE TO SEVERE PAIN; Start 12/16/18 at 07:00; Stop 12/16/18 at 16:33; Status DC Morphine Sulfate (Morphine Sulfate) 1 mg PRN Q10MIN PRN IV SEVERE PAIN; Start 12/16/18 at 07:00; Stop 12/17/18 at 06:59; Status DC Ringer's Solution 1,000 ml @ 30 mls/hr Q24H IV Last administered on 12/16/18at 13:00; Start 12/16/18 at 07:00; Stop 12/16/18 at 18:59; Status DC Lidocaine HCl (Xylocaine-Mpf 1% 2ml Vial) 2 ml PRN 1X PRN ID IV START; Start at 07:00; Stop 12/17/18 at 06:59; Status DC Hydromorphone HCl (Dilaudid) 0.5 mg PRN Q10MIN PRN IV SEV PAIN, Second choice; Start 12/16/18 at 07:00; Stop 12/17/18 at 06:59; Status DC Prochlorperazine Edisylate (Compazine) 5 mg PACU PRN PRN IV NAUSEA, MRX1; Start 12/16/18 at 07:00; Stop 12/17/18 at 06:59; Status DC Midazolam HCl (Versed) 2 mg PRN 1X PRN IV PRIOR TO PROCEDURE; Start 12/16/18 at 07:15; Stop 12/17/18 at 07:14; Status DC Fentanyl Citrate (Fentanyl 2ml Vial) 25 mcg PRN Q5MIN PRN IV X 2 DOSES FOR PAIN ; Start 12/16/18 at 07:15; Stop 12/16/18 at 16:33; Status DC Fentanyl Citrate (Fentanyl 2ml Vial) 50 mcg PRN Q5MIN PRN IV X 2 DOSES FOR PAIN ; Start 12/16/18 at 07:15; Stop 12/16/18 at 16:34; Status DC Ringer's Solution 1,000 ml @ 125 mls/hr Q8H IV ; Start 12/16/18 at 07:13; Stop 12/16/18 at 19:12; Status DC Lidocaine HCl (Xylocaine-Mpf 1% 2ml Vial) 2 ml 1X PRN PRN ID IV START; Start at 07:15; Stop 12/17/18 at 07:14; Status DC Propofol 40 ml @ As Directed STK-MED ONCE IV ; Start 12/16/18 at 13:58; Stop at 14:00; Status DC Prochlorperazine Edisylate (Compazine) 5 mg PACU PRN PRN IV NAUSEA, MRX1; Start 12/17/18 at 07:00; Stop 12/18/18 at 06:59; Status DC Hydromorphone HCl (Dilaudid) 0.5 mg PRN Q10MIN PRN IV SEV PAIN, Second choice; Start 12/17/18 at 07:00; Stop 12/18/18 at 06:59; Status DC Lidocaine HCl (Xylocaine-Mpf 1% 2ml Vial) 2 ml PRN 1X PRN ID IV START; Start at 07:00; Stop 12/18/18 at 06:59; Status DC Ringer's Solution 1,000 ml @ 30 mls/hr Q24H IV Last administered on 12/17/18at 10:34; Start 12/17/18 at 07:00; Stop 12/17/18 at 18:59; Status DC Morphine Sulfate (Morphine Sulfate) 1 mg PRN Q10MIN PRN IV SEVERE PAIN; Start 12/17/18 at 07:00; Stop 12/18/18 at 06:59; Status DC Fentanyl Citrate (Fentanyl 2ml Vial) 50 mcg PRN Q5MIN PRN IV MODERATE TO SEVERE PAIN Last administered on 12/17/18at 11:13; Start 12/17/18 at 07:00; Stop at 06:59; Status DC Fentanyl Citrate (Fentanyl 2ml Vial) 25 mcg PRN Q5MIN PRN IV MILD PAIN; Start 12/17/18 at 07:00; Stop 12/18/18 at 06:59; Status DC Ondansetron HCl (Zofran) 4 mg PRN Q6HRS PRN IV NAUSEA/VOMITING; Start 12/17/18 at 07:00; Stop 12/18/18 at 06:59; Status DC Propofol 20 ml @ As Directed STK-MED ONCE IV ; Start 12/17/18 at 07:21; Stop 12/17 at 07:23; Status DC Albuterol Sulfate (Ventolin Neb Soln) 2.5 mg 1X ONCE NEB ; Start 12/17/18 at 07: 30; Stop 12/17/18 at 07:31; Status DC Lidocaine HCl (Lidocaine Pf 2% Vial) 5 ml STK-MED ONCE .ROUTE ; Start 12/17/18 at 07:21; Stop 12/17/18 at 07:23; Status DC Succinylcholine Chloride (Anectine) 200 mg STK-MED ONCE .ROUTE ; Start 12/17/18 at 07:21; Stop 12/17/18 at 07:23; Status DC Rocuronium [place] (Zemuron) 50 mg STK-MED ONCE .ROUTE ; Start 12/17/18 at 07:21 ; Stop 12/17/18 at 07:23; Status DC Fentanyl Citrate (Fentanyl 2ml Vial) 100 mcg STK-MED ONCE .ROUTE ; Start at 07:21; Stop 12/17/18 at 07:24; Status DC Cefazolin Sodium/ Dextrose 50 ml @ 100 mls/hr 1X ONCE IV Last administered on 12/17/18at 08:07; Start 12/17/18 at 07:45; Stop 12/17/18 at 08:18; Status DC Bupivacaine HCl/ Epinephrine Bitart (Sensorcain-Mpf Epi 0.5%-1:[id number]) 30 ml STK -MED ONCE .ROUTE Last administered on 12/17/18at 08:34; Start 12/17/18 at 07:46; Stop 12/17/18 at 07:49; Status DC Neomycin/ Polymyxin/ Bacitracin (Triple Antibiotic Ointment) 1 pkt STK-MED ONCE TP Last administered on 12/17/18at 10:07; Start 12/17/18 at 07:46; Stop 12/17/18 at 07:49; Status DC Neomycin/ Polymyxin/ Bacitracin (Triple Antibiotic Ointment) 1 pkt STK-MED ONCE TP Last administered on 12/17/18at 10:07; Start 12/17/18 at 07:46; Stop 12/17/18 at 07:49; Status DC Neomycin/ Polymyxin/ Bacitracin (Triple Antibiotic Ointment) 1 pkt STK-MED ONCE TP ; Start 12/17/18 at 07:47; Stop 12/17/18 at 07:49; Status DC Dexamethasone Sodium Phosphate (Decadron) 20 mg STK-MED ONCE .ROUTE ; Start 12/17 at 07:54; Stop 12/17/18 at 07:56; Status DC Hydrocortisone Sodium Succinate (Solu-CORTEF) 100 mg STK-MED ONCE .ROUTE ; Start 12/17/18 at 07:54; Stop 12/17/18 at 07:56; Status DC Desflurane (Suprane) 90 ml STK-MED ONCE IH ; Start 12/17/18 at 07:54; Stop at 07:56; Status DC Neostigmine Methylsulfate (Bloxiverz) 10 mg STK-MED ONCE .ROUTE ; Start 12/17/18 at 08:21; Stop 12/17/18 at 08:24; Status DC Glycopyrrolate (Robinul) 1 mg STK-MED ONCE .ROUTE ; Start 12/17/18 at 08:21; Stop 12/17/18 at 08:24; Status DC Phenylephrine HCl (Bogdan-Synephrine Inj) 10 mg STK-MED ONCE .ROUTE ; Start at 08:23; Stop 12/17/18 at 08:26; Status DC Desflurane (Suprane) 60 ml STK-MED ONCE IH ; Start 12/17/18 at 09:23; Stop at 09:26; Status DC Bupivacaine HCl/ Epinephrine Bitart (Sensorcain-Mpf Epi 0.5%-1:[id number]) 30 ml STK -MED ONCE .ROUTE Last administered on 12/17/18at 10:06; Start 12/17/18 at 09:41; Stop 12/17/18 at 09:43; Status DC Morphine Sulfate (Morphine Sulfate) 2 mg PRN Q2HR PRN IV PAIN Last administered on 12/23/18at 03:40; Start 12/17/18 at 10:15 Ketorolac Tromethamine (Toradol 15mg Vial) 15 mg Q6HRS IV Last administered on 12/18/18 05:39; Start 12/17/18 at 12:00; Stop 12/18/18 at 10:00; Status DC Artificial Tears (Artificial Tears) 1 drop PRN Q15MIN PRN OU DRY EYE Last administered on 12/20/18 21:28; Start 12/18/18 at 08:00 Docusate Sodium (Colace) 100 mg DAILY PO Last administered on 12/22/18 10:29; Start 12/18/18 at 10:00 Throat Lozenges (Cepacol Sore Throat Lozenge) 1 kristyn PRN Q2HRS PRN PO SORE THROAT Last administered on 12/20/18 19:46; Start 12/18/18 at 14:00 Enoxaparin Sodium (Lovenox 40mg Syringe) 40 mg Q24H SQ Last administered on 12/22 10:31; Start 12/19/18 at 09:00 Ondansetron HCl (Zofran) 4 mg PRN Q6HRS PRN IV NAUSEA/VOMITING Last administered on 12/21/18 13:31; Start 12/19/18 at 11:30 Insulin Human Lispro (HumaLOG) 0-5 UNITS TIDWMEALS SQ ; Start 12/19/18 at 17:00 Dextrose (Dextrose 50%-Water Syringe) 12.5 gm PRN Q15MIN PRN IV SEE COMMENTS; Start 12/19/18 at 16:45 Levofloxacin/ Dextrose 100 ml @ 100 mls/hr 1X ONCE IV Last administered on 20:56; Start 12/19/18 at 21:00; Stop 12/19/18 at 21:59; Status DC Cefepime HCl (Maxipime) 2 gm Q12HR IVP Last administered on 12/22/18 20:19; Start 12/21/18 at 10:00 Sodium Chloride 1,000 ml @ 125 mls/hr 1X ONCE IV Last administered on 10:43; Start 12/21/18 at 09:45; Stop 12/21/18 at 17:44; Status DC Calcium Carbonate/ Glycine (Tums) 500 mg PRN AFTMEALHC PRN PO INDIGESTION Last administered on 12/21/18at 13:10; Start 12/21/18 at 12:15 Lorazepam (Ativan) 1 mg 1X ONCE IV Last administered on 12/21/18at 17:50; Start 12/21/18 at 17:30; Stop 12/21/18 at 17:31; Status DC Albuterol Sulfate (Ventolin Neb Soln) 2.5 mg PRN Q2HRS PRN NEB SHORTNESS OF BREATH; Start 12/21/18 at 17:30 Nicotine (Nicoderm Cq 14mg) 1 patch PRN DAILY PRN TD SMOKING CESSATION; Start 12/21/18 at 19:30 Lorazepam (Ativan) 1 mg 1X ONCE IV Last administered on 12/21/18at 23:45; Start 12/21/18 at 23:45; Stop 12/21/18 at 23:46; Status DC Lorazepam (Ativan) 1 mg PRN Q4HRS PRN IV ANXIETY / AGITATION Last administered on 12/22/18at 11:15; Start 12/21/18 at 23:30; Stop 12/22/18 at 14:42; Status DC Sodium Chloride 1,000 ml @ 250 mls/hr 1X ONCE IV Last administered on at 09:15; Start 12/22/18 at 09:15; Stop 12/22/18 at 13:14; Status DC Active Scripts Active Chlorhexidine Gluconate 473 Ml Mouthwash 473 Ml MM BID 7 Days Vitamin C (Ascorbate Calcium) 500 Mg Tablet 500 Mg PO DAILY 30 Days Slow Release Iron (Ferrous Sulfate) 250 Mg Tablet.er 250 Mg PO DAILY 30 Days Protonix (Pantoprazole Sodium) 40 Mg Nav. 40 Mg PO DAILY 30 Days Reported Metformin Hcl Er (Metformin Hcl) 500 Mg Tab.er.24h 1 Tab PO DAILY Namenda (Memantine Hcl) 10 Mg Tablet 1 Tab PO BID Losartan Potassium 100 Mg Tablet 100 Mg PO DAILY Spironolactone 25 Mg Tablet 1 Tab PO DAILY Ventolin Hfa Inhaler (Albuterol Sulfate) 18 Gm Hfa.aer.ad 2 Puff INH Q4HRS Cymbalta (Duloxetine Hcl) 20 Mg Capsule. 90 Mg PO DAILY Requip (Ropinirole Hcl) 1 Mg Tablet 3 Mg PO DAILY Amlodipine Besylate 10 Mg Tablet 10 Mg PO DAILY Vitals/I & O Vital Sign - Last 24 Hours 12/22/18 12/22/18 12/22/18 12/22/18 10:29 10:30 11:00 12:00 Temp 98.1 98.8 98.1 98.8 Pulse 100 100 108 96 Resp 20 22 B/P (MAP) 139/93 139/93 141/88 (105) 132/88 (103) Pulse Ox 100 O2 Delivery Nasal Cannula Nasal Cannula O2 Flow Rate 3.0 3.0 12/22/18 12/22/18 12/22/18 12/22/18 13:00 14:00 15:00 16:17 Pulse 96 98 98 Resp 22 22 B/P (MAP) 114/84 (94) 131/81 (98) 128/84 (99) Pulse Ox 95 94 93 O2 Delivery Nasal Cannula Nasal Cannula Nasal Cannula Nasal Cannula O2 Flow Rate 3.0 3.0 3.0 2.0 12/22/18 12/22/18 12/22/18 12/22/18 19:00 20:00 20:00 20:09 Temp 98.2 98.2 Pulse 107 96 Resp 30 30 B/P (MAP) 118/72 (87) 122/81 (95) Pulse Ox 92 96 93 O2 Delivery Nasal Cannula Nasal Cannula Nasal Cannula Nasal Cannula O2 Flow Rate 3.0 3.0 3.0 2.0 12/22/18 12/22/18 12/22/18 12/22/18 21:00 22:00 23:05 23:31 Pulse 96 95 93 Resp 30 30 25 B/P (MAP) 114/74 (87) 119/82 (94) 124/81 (95) Pulse Ox 86 95 96 94 O2 Delivery Nasal Cannula Nasal Cannula Nasal Cannula Nasal Cannula O2 Flow Rate 3.0 3.0 3.0 2.0 12/22/18 12/22/18 12/23/18 12/23/18 23:59 23:59 01:00 02:00 Temp 98.8 98.8 Pulse 93 95 92 Resp 27 23 28 B/P (MAP) 127/80 (96) 124/77 (93) 132/81 (98) Pulse Ox 96 97 96 O2 Delivery Nasal Cannula Nasal Cannula Nasal Cannula Nasal Cannula O2 Flow Rate 3.0 3.0 3.0 3.0 12/23/18 12/23/18 12/23/18 12/23/18 03:00 03:40 03:54 04:00 Temp 98.4 98.4 Pulse 95 94 Resp 30 30 28 B/P (MAP) 137/81 (99) 129/84 (99) Pulse Ox 95 91 94 O2 Delivery Nasal Cannula Nasal Cannula Nasal Cannula Nasal Cannula O2 Flow Rate 3.0 3.0 3.0 3.0 12/23/18 12/23/18 12/23/18 12/23/18 04:10 04:18 05:00 06:00 Pulse 91 95 Resp 28 27 25 B/P (MAP) 133/78 (96) 123/81 (95) Pulse Ox 94 94 91 96 O2 Delivery Nasal Cannula Nasal Cannula Nasal Cannula Nasal Cannula O2 Flow Rate 3.0 2.0 3.0 3.0 12/23/18 12/23/18 07:00 08:06 Pulse 94 Resp 25 B/P (MAP) 131/81 (98) Pulse Ox 94 92 O2 Delivery Nasal Cannula Nasal Cannula O2 Flow Rate 3.0 2.0 Intake and Output 12/22/18 12/22/18 12/23/18 15:01 23:01 07:01 Intake Total 1240 ml 894 ml Output Total 100 ml 300 ml Balance 1140 ml 594 ml FLORY NEAL MD Dec 23, 2018 08:59
[2018-12-23] MEDS: DULoxetine HCL 30 MG CAPSULE.DR PO SCH (09:00)
[2018-12-23] MEDS: ASCORBIC ACID 500 MG TABLET PO SCH (09:00)
[2018-12-23] MEDS: MEMANTINE 10 MG TABLET. PO SCH ×2 (09:00→21:36)
[2018-12-23] MEDS: LOSARTAN POTASSIUM 50 MG TABLET. PO SCH (09:00)
[2018-12-23] MEDS: amLODIPine BESYLATE 10 MG TABLET PO SCH (09:00)
[2018-12-23] MEDS: DOCUSATE SODIUM 100 MG CAPSULE. PO SCH (09:00)
[2018-12-23] MEDS: SPIRONOLACTONE 25 MG TABLET PO SCH (09:00)
[2018-12-23] MEDS: ENOXAPARIN 40 MG/0.4 ML SYRINGE. SQ SCH (10:28)
[2018-12-23] MEDS: CHLORHEXIDINE 0.12% 15 ML MOUTHWASH. MM SCH ×2 (10:28→21:35)
[2018-12-23] MEDS: CEFEPIME HCL IV Push 2 GM VIAL. IVP SCH ×2 (10:31→21:34)
[2018-12-23] MEDS ORDERED: LIDOCAINE WITH 8.4% SOD BICARB 3 ML DISP.SYRIN. ONE (10:33)
[2018-12-23] MEDS: ONDANSETRON PF 4 MG/2 ML VIAL. IV PRN (10:49)
[2018-12-23] MEDS ORDERED: LIDOCAINE WITH 8.4% SOD BICARB 3 ML DISP.SYRIN. INJ ONE (11:00)
--- NOTE | 2018-12-23 11:30 | NUR ---
Report from RODERICK Mcnair in ICU. Pt arrived to unit from vasc lab after PICC placement. A&Ox4, VSS on 4L nc, denies nausea at this time, pain is "ok" per pt, denies need for pain meds at this time. R nare NG tube in place and connected to LIS. New RUE DL PICC is intact, good blood return upon arrival. FSBS 113, no need for SSI at this time. Tele monitor on, tachy in the low 100s. Side rails up x3, call light within reach, will continue to monitor.
--- NOTE | 2018-12-23 11:33 | PDOC ---
Objective: Objective: Reviewed chart, d/w floor RN. Vital Signs: Vital Signs Date Time Temp Pulse Resp B/P (MAP) Pulse Ox O2 Delivery O2 Flow Rate FiO2 12/23/18 11:00 92 26 126/80 (95) 94 Nasal Cannula 4.0 12/23/18 08:00 98.6 98.6 Labs: Laboratory Tests Test 12/22/18 16:39 12/23/18 10:00 Glucose (Fingerstick) 107 mg/dL 98 mg/dL Imaging: KUB 12/22 IMPRESSION: 1. Nasogastric tube looped within the stomach. 2. Distended loops of bowel throughout the abdomen. This is better characterized on the CT obtained earlier on the same date. PE: not in ICU or on floor - apparently getting PICC A/P: COPD, resp failure - better S/p right colon resection and hemorrhoidectomy, postop ileus vs SBO -- Out for PICC placement, continue per surgery, will follow. RADHA JUSTICE Dec 23, 2018 11:33
--- NOTE | 2018-12-23 13:34 | PDOC ---
PULMONARY PROGRESS NOTES Subjective less soa/ abd less distended Vitals Vital Signs Date Time Temp Pulse Resp B/P (MAP) Pulse Ox O2 Delivery O2 Flow Rate FiO2 12/23/18 11:40 97.9 95 16 129/80 (96) 92 Room Air 97.9 12/23/18 11:00 4.0 General: Alert, Oriented X4, No acute distress Lungs: Clear Cardiovascular: S1 Abdomen: Soft, Other (distended) Extremities: No Edema Skin: Warm Labs Laboratory Tests Test 12/21/18 16:34 12/21/18 21:20 12/22/18 06:00 12/22/18 07:16 Glucose (Fingerstick) 171 mg/dL (70-99) 118 mg/dL (70-99) 135 mg/dL (70-99) O2 Saturation 93 % (92-99) Arterial Blood pH 7.44 (7.35-7.45) Arterial Blood pCO2 at Patient Temp 34 mmHg (35-46) Arterial Blood pO2 at Patient Temp 71 mmHg (65-108) Arterial Blood pO2 (Temp corrected) mmHg Arterial Blood HCO3 23 mmol/L (21-28) Arterial Blood Base Excess -1 mmol/L (-3-3) FiO2 35 Test 12/22/18 09:50 12/22/18 16:39 12/23/18 10:00 12/23/18 11:38 Sodium Level 144 mmol/L (136-145) Potassium Level 4.1 mmol/L (3.5-5.1) Chloride Level 106 mmol/L (98-107) Carbon Dioxide Level 24 mmol/L (21-32) Anion Gap 14 (6-14) Blood Urea Nitrogen 42 mg/dL (7-20) Creatinine 1.2 mg/dL (0.6-1.0) Estimated GFR (Cockcroft-Gault) 53.0 Glucose Level 134 mg/dL (70-99) Calcium Level 9.4 mg/dL (8.5-10.1) Glucose (Fingerstick) 107 mg/dL (70-99) 98 mg/dL (70-99) 112 mg/dL (70-99) Laboratory Tests Test 12/22/18 16:39 12/23/18 10:00 12/23/18 11:38 Glucose (Fingerstick) 107 mg/dL (70-99) 98 mg/dL (70-99) 112 mg/dL (70-99) Medications Active Scripts Medications Dose Route/Sig Max Daily Dose Days Date Category Chlorhexidine Gluconate 473 Ml Mouthwash 473 Ml MM BID 7 12/10/18 Rx Vitamin C (Ascorbate Calcium) 500 Mg Tablet 500 Mg PO DAILY 30 11/22/18 Rx Slow Release Iron (Ferrous Sulfate) 250 Mg Tablet.er 250 Mg PO DAILY 30 11/22/18 Rx Protonix (Pantoprazole Sodium) 40 Mg Granpkt.dr 40 Mg PO DAILY 30 11/22/18 Rx Metformin Hcl Er (Metformin Hcl) 500 Mg Tab.er.24h 1 Tab PO DAILY 11/12/16 Reported Namenda (Memantine Hcl) 10 Mg Tablet 1 Tab PO BID 11/12/16 Reported Losartan Potassium 100 Mg Tablet 100 Mg PO DAILY 11/12/16 Reported Spironolactone 25 Mg Tablet 1 Tab PO DAILY 11/12/16 Reported Ventolin Hfa Inhaler (Albuterol Sulfate) 18 Gm Hfa.aer.ad 2 Puff INH Q4HRS 11/11/16 Reported Cymbalta (Duloxetine Hcl) 20 Mg Capsule.dr 90 Mg PO DAILY 01/27/16 Reported Requip (Ropinirole Hcl) 1 Mg Tablet 3 Mg PO DAILY 01/27/16 Reported Amlodipine Besylate 10 Mg Tablet 10 Mg PO DAILY 01/27/16 Reported Impression . 1. Acute hypoxic respiratory failure secondary to underlying chronic obstructive pulmonary disease and increasing abdominal distention related to postop ileus. 2. Gastrointestinal bleed/cecal ulceration by colonoscopy, status post laparoscopic-assisted right colon resection and hemorrhoidectomy. 3. Postoperative ileus. 4. Underlying chronic obstructive pulmonary disease. 5. Abnormal CT chest with focal opacity in the right upper lobe, could be nodule. Needs to have a followup in 4-6 months. She also has bibasilar atelectasis, caused by abdominal distention. Clinically, less likely pneumonia. Plan . 1. Continue with present oxygen. 2. Continue bronchodilators. 3. DVT prophylaxis. 4. Antibiotics. 5. Bowel decompression per Surgery and GI. 6. ABGs are adequate, we will watch respiratory status closely. 7. May consider p.r.n. BiPAP if needed. 8. Discussed with RN and we will follow along with you. JEF CARLIN MD Dec 23, 2018 13:34
[2018-12-23 14:01] LABS: HEMATOCRIT 25.7 % (36.0-47.0); RED BLOOD COUNT 3.29 x10^6/uL (3.50-5.40); RED CELL DISTRIBUTION WIDTH 23.6 % (11.5-14.5); WHITE BLOOD COUNT 6.1 x10^3/uL (4.0-11.0)
[2018-12-23] MEDS: TPN PER PHARMACY MC PRN (14:31)
--- NOTE | 2018-12-23 14:33 | NUR ---
Pharmacy TPN Dosing Note S: ELLE LATHAM is a 72 year old F Currently receiving Central Continuous TPN started 12/23/18 B:Pertinent PMH: SBO Height: 5 feet, 7 inches Weight: 85.203706 kg Current diet: npo LABS: Sodium: 144 Potassium: 4.1 Chloride: 106 Calcium: 9.4 Corrected Calcium: 10.60 Magnesium: - CO2: 25 SCr: 1.1 Glucose: 112 Albumin: 2.5 AST: 12 ALT: 12 TPN FORMULA: TPN TYPE: Central Continuous AMINO ACIDS: 60 gm DEXTROSE: 195 gm LIPIDS: 20 gm SODIUM CHLORIDE: 90 mEq SODIUM ACETATE: mEq SODIUM PHOSPHATE: mmol POTASSIUM CHLORIDE: 50 mEq POTASSIUM ACETATE: mEq POTASSIUM PHOSPHATE: 20.4 mmol MAGNESIUM: 18 mEq CALCIUM: 5 mEq INSULIN: units MULTIPLE VITAMIN: 10 ml TRACE ELEMENTS: mte5 1 ml ml(s) TPN PLAN: Started standard TPN with 8 meq (2g) extra magnesium, 6.8 mmol extra Kphos (~10 meq K) for pt with high risk of refeeding (prolonged NPO, recent bowel surgery, elderly). Decreased calcium to 5 for solubility. Await macro recs from dietary in AM. BMP, phos, mag, trig in AM. R: Begin TPN ABOVE. Will monitor electrolytes, glucose, and tolerance to TPN. MELIA PRUITT [facility], 12/23/18 [id number]
--- NOTE | 2018-12-23 14:49 | RAD ---
Exam: Fluoroscopic and ultrasound guided right percutaneous inserted central venous catheter placement 12/23/2018 2:43 PM .Indication: TPN access Technique: Informed oral and written consent were obtained. The right upper extremity was prepped and draped using sterile barrier technique. All elements of maximal sterile barrier technique including the use of a cap, mask, sterile gown, sterile gloves, large sterile sheet, appropriate hand hygiene, and 2% chlorhexidine for cutaneous antisepsis (or acceptable alternative antiseptic per current guidelines) were followed for this procedure.. Real-time ultrasound demonstrated a patent right basilic vein. The right upper extremity was prepped and draped in usual sterile fashion. 1% lidocaine used for local anesthesia. Using real-time ultrasound guidance the access needle percutaneously punctured the selected vein. Reference ultrasound images were saved to the medical record. A guidewire was advanced through the needle to the cavoatrial junction, and a peel-away sheath placed. The catheter was cut to length and inserted through the peel-away sheath such that its tip is at the cavoatrial junction. The wire and sheath were removed, and the catheter secured in place, and a sterile dressing was applied. Catheter was found to flush and aspirate normally. No immediate complications are identified. FLUORO TIME: 0.3 MIN DOSE AREA PRODUCT: 1 Gycm2 Impression: Ultrasound and fluoroscopically guided placement of a right upper extremity PICC line.
--- NOTE | 2018-12-23 15:46 | PDOC ---
SURGICAL PROGRESS NOTE Subjective More alert today, she states she has passed flatus but no stool Vital Signs Vital Signs Date Time Temp Pulse Resp B/P (MAP) Pulse Ox O2 Delivery O2 Flow Rate FiO2 12/23/18 15:25 95 Nasal Cannula 3.0 12/23/18 11:40 97.9 95 16 129/80 (96) 97.9 I&O Intake and Output 12/23/18 07:01 Intake Total 2134 ml Output Total 400 ml Balance 1734 ml IV Total 2134 ml Output Urine Total 100 ml Gastric Drainage Total 300 ml # Voids 3 PATIENT HAS A PILLAI: Yes General: Alert, Cooperative, mild distress Abdomen: Normal bowel sounds, Soft (mildly distended, wounds c/d/i minimal NGT output. ) Labs Laboratory Tests Test 12/21/18 16:34 12/21/18 21:20 12/22/18 06:00 12/22/18 07:16 Glucose (Fingerstick) 171 mg/dL (70-99) 118 mg/dL (70-99) 135 mg/dL (70-99) O2 Saturation 93 % (92-99) Arterial Blood pH 7.44 (7.35-7.45) Arterial Blood pCO2 at Patient Temp 34 mmHg (35-46) Arterial Blood pO2 at Patient Temp 71 mmHg (65-108) Arterial Blood pO2 (Temp corrected) mmHg Arterial Blood HCO3 23 mmol/L (21-28) Arterial Blood Base Excess -1 mmol/L (-3-3) FiO2 35 Test 12/22/18 09:50 12/22/18 16:39 12/23/18 10:00 12/23/18 11:38 Sodium Level 144 mmol/L (136-145) Potassium Level 4.1 mmol/L (3.5-5.1) Chloride Level 106 mmol/L (98-107) Carbon Dioxide Level 24 mmol/L (21-32) Anion Gap 14 (6-14) Blood Urea Nitrogen 42 mg/dL (7-20) Creatinine 1.2 mg/dL (0.6-1.0) Estimated GFR (Cockcroft-Gault) 53.0 Glucose Level 134 mg/dL (70-99) Calcium Level 9.4 mg/dL (8.5-10.1) Glucose (Fingerstick) 107 mg/dL (70-99) 98 mg/dL (70-99) 112 mg/dL (70-99) Test 12/23/18 13:40 White Blood Count 6.1 x10^3/uL (4.0-11.0) Red Blood Count 3.29 x10^6/uL (3.50-5.40) Hemoglobin 8.0 g/dL (12.0-15.5) Hematocrit 25.7 % (36.0-47.0) Mean Corpuscular Volume 78 fL (79-100) Mean Corpuscular Hemoglobin 24 pg (25-35) Mean Corpuscular Hemoglobin Concent 31 g/dL (31-37) Red Cell Distribution Width 23.6 % (11.5-14.5) Platelet Count 235 x10^3/uL (140-400) Procalcitonin 0.15 ng/mL (0.00-0.10) Laboratory Tests Test 12/22/18 16:39 12/23/18 10:00 12/23/18 11:38 12/23/18 13:40 Glucose (Fingerstick) 107 mg/dL (70-99) 98 mg/dL (70-99) 112 mg/dL (70-99) White Blood Count 6.1 x10^3/uL (4.0-11.0) Red Blood Count 3.29 x10^6/uL (3.50-5.40) Hemoglobin 8.0 g/dL (12.0-15.5) Hematocrit 25.7 % (36.0-47.0) Mean Corpuscular Volume 78 fL (79-100) Mean Corpuscular Hemoglobin 24 pg (25-35) Mean Corpuscular Hemoglobin Concent 31 g/dL (31-37) Red Cell Distribution Width 23.6 % (11.5-14.5) Platelet Count 235 x10^3/uL (140-400) Procalcitonin 0.15 ng/mL (0.00-0.10) Assessment/Plan PICC line for tpn Bowel rest awaiting return of bowel function Appreciate pulmonary input DAYLIN WEI MD Dec 23, 2018 15:46
[2018-12-23 17:56] LABS: BILIRUBIN,URINE NEGATIVE (NEG); CLARITY,URINE CLEAR; COLOR,URINE YELLOW; NITRITE,URINE NEGATIVE (NEG); PROTEIN,URINE NEGATIVE (NEG-TRACE); UROBILINOGEN,URINE 0.2 mg/dL (0.2 mg/dL)
[2018-12-23 18:01] LABS: BACTERIA,URINE 0 /HPF (0-FEW); HYALINE CASTS, URINE OCCASIONAL /HPF; RBC,URINE 0 /HPF (0-2); SQUAMOUS EPITHELIAL CELL,UR OCC /LPF; WBC,URINE OCC /HPF (0-4)
[2018-12-23] MEDS: rOPINIRole 1 MG TABLET. PO SCH (21:36)
[2018-12-23] MEDS: NICOTINE 14MG PATCH. TD PRN (21:49)
[2018-12-23] MEDS ORDERED: TOTAL PARENTERAL NUTRITION IV SCH ×10 (22:00)
[2018-12-23] MEDS ORDERED: [UNRECOGNIZED DRUG - OTHER] IV SCH ×10 (22:00)
[2018-12-23] MEDS ORDERED: AMINO ACID IV SCH ×10 (22:00)
[2018-12-23] MEDS ORDERED: DEXTROSE 70% IV SCH ×10 (22:00)
[2018-12-23] MEDS ORDERED: ALPR0.254 PO (22:13)
[2018-12-23] MEDS: ALPRAZolam 0.25 MG TABLET PO PRN (23:05)
[2018-12-24 03:00] VITALS: BP 136/87
[2018-12-24] MEDS: ALBUTEROL SULFATE 2.5 MG/3 ML NEBU. NEB SCH ×6 (04:19→22:36)
[2018-12-24] MEDS: MORPHINE SULFATE 4 MG/ML VIAL. IV PRN ×3 (04:50→19:03)
[2018-12-24 05:45] LABS: CALCIUM 9.3 mg/dL (8.5-10.1); CREATININE 0.8 mg/dL (0.6-1.0); GFR 84.6; MAGNESIUM 2.2 mg/dL (1.8-2.4)
[2018-12-24 07:00] VITALS: BP_SYST 110; BP_SYST 151; BP_DIAS 70; BP_DIAS 91
[2018-12-24] MEDS: PANTOPRAZOLE 40 MG TABLET.DR. PO SCH (07:30)
[2018-12-24] MEDS: FERROUS SULFATE 325 MG TABLET. PO SCH (08:00)
[2018-12-24] MEDS: INSULIN LISPRO 300 UNITS/3 ML INSULN.PEN. SQ SCH ×3 (08:00→17:00)
[2018-12-24 08:06] LABS: HEMATOCRIT 25.6 % (36.0-47.0); RED BLOOD COUNT 3.26 x10^6/uL (3.50-5.40); RED CELL DISTRIBUTION WIDTH 23.5 % (11.5-14.5); WHITE BLOOD COUNT 6.6 x10^3/uL (4.0-11.0)
[2018-12-24] MEDS: DULoxetine HCL 30 MG CAPSULE.DR PO SCH (09:00)
[2018-12-24] MEDS: SPIRONOLACTONE 25 MG TABLET PO SCH (09:00)
[2018-12-24] MEDS: LOSARTAN POTASSIUM 50 MG TABLET. PO SCH (09:00)
[2018-12-24] MEDS: MEMANTINE 10 MG TABLET. PO SCH ×2 (09:00→20:12)
[2018-12-24] MEDS: ASCORBIC ACID 500 MG TABLET PO SCH (09:00)
[2018-12-24] MEDS: DOCUSATE SODIUM 100 MG CAPSULE. PO SCH (09:00)
[2018-12-24] MEDS: CHLORHEXIDINE 0.12% 15 ML MOUTHWASH. MM SCH ×2 (09:00→20:09)
[2018-12-24] MEDS: amLODIPine BESYLATE 10 MG TABLET PO SCH (09:00)
[2018-12-24] MEDS: ENOXAPARIN 40 MG/0.4 ML SYRINGE. SQ SCH (09:22)
--- NOTE | 2018-12-24 09:23 | PDOC ---
SURGICAL PROGRESS NOTE Subjective Patient states she is doing okay she feels a little less distended no nausea no vomiting. States she is passing flatus but no bowel movement Vital Signs Vital Signs Date Time Temp Pulse Resp B/P (MAP) Pulse Ox O2 Delivery O2 Flow Rate FiO2 12/24/18 07:14 Nasal Cannula 4.0 12/24/18 07:00 97.9 89 16 151/91 (111) 92 97.9 I&O Intake and Output 12/24/18 07:01 Intake Total 480 ml Output Total 100 ml Balance 380 ml Intake Oral 0 ml IV Total 480 ml Output Urine Total 0 ml Drainage Total 100 ml # Voids 6 PATIENT HAS A PILLAI: No General: Alert, Oriented X3, Cooperative, mild distress Abdomen: Normal bowel sounds, Soft (clean dry and intact mildly distended minimal NG tube output) Labs Laboratory Tests Test 12/22/18 09:50 12/22/18 15:00 12/22/18 16:39 12/23/18 10:00 Sodium Level 144 mmol/L (136-145) Potassium Level 4.1 mmol/L (3.5-5.1) Chloride Level 106 mmol/L (98-107) Carbon Dioxide Level 24 mmol/L (21-32) Anion Gap 14 (6-14) Blood Urea Nitrogen 42 mg/dL (7-20) Creatinine 1.2 mg/dL (0.6-1.0) Estimated GFR (Cockcroft-Gault) 53.0 Glucose Level 134 mg/dL (70-99) Calcium Level 9.4 mg/dL (8.5-10.1) Nasal Screen MRSA (PCR) Negative (Negative) Glucose (Fingerstick) 107 mg/dL (70-99) 98 mg/dL (70-99) Test 12/23/18 11:38 12/23/18 13:40 12/23/18 17:00 12/23/18 17:40 Glucose (Fingerstick) 112 mg/dL (70-99) 100 mg/dL (70-99) White Blood Count 6.1 x10^3/uL (4.0-11.0) Red Blood Count 3.29 x10^6/uL (3.50-5.40) Hemoglobin 8.0 g/dL (12.0-15.5) Hematocrit 25.7 % (36.0-47.0) Mean Corpuscular Volume 78 fL (79-100) Mean Corpuscular Hemoglobin 24 pg (25-35) Mean Corpuscular Hemoglobin Concent 31 g/dL (31-37) Red Cell Distribution Width 23.6 % (11.5-14.5) Platelet Count 235 x10^3/uL (140-400) Procalcitonin 0.15 ng/mL (0.00-0.10) Urine Color Yellow Urine Clarity Clear Urine pH 6.0 Urine Specific [place] 1.025 Urine Protein Negative mg/dL (NEG-TRACE) Urine Glucose (UA) Negative mg/dL (NEG) Urine Ketones (Stick) 15 mg/dL (NEG) Urine Blood Negative (NEG) Urine Nitrite Negative (NEG) Urine Bilirubin Negative (NEG) Urine Urobilinogen Dipstick 0.2 mg/dL (0.2 mg/dL) Urine Leukocyte Esterase Negative (NEG) Urine RBC 0 /HPF (0-2) Urine WBC Occ /HPF (0-4) Urine Squamous Epithelial Cells Occ /LPF Urine Bacteria 0 /HPF (0-FEW) Urine Hyaline Casts Occasional /HPF Urine Mucus Mod /LPF Test 12/23/18 20:59 12/24/18 05:00 12/24/18 08:02 Glucose (Fingerstick) 98 mg/dL (70-99) 169 mg/dL (70-99) White Blood Count 6.6 x10^3/uL (4.0-11.0) Red Blood Count 3.26 x10^6/uL (3.50-5.40) Hemoglobin 8.0 g/dL (12.0-15.5) Hematocrit 25.6 % (36.0-47.0) Mean Corpuscular Volume 79 fL (79-100) Mean Corpuscular Hemoglobin 25 pg (25-35) Mean Corpuscular Hemoglobin Concent 31 g/dL (31-37) Red Cell Distribution Width 23.5 % (11.5-14.5) Platelet Count 240 x10^3/uL (140-400) Sodium Level 145 mmol/L (136-145) Potassium Level 4.0 mmol/L (3.5-5.1) Chloride Level 109 mmol/L (98-107) Carbon Dioxide Level 25 mmol/L (21-32) Anion Gap 11 (6-14) Blood Urea Nitrogen 34 mg/dL (7-20) Creatinine 0.8 mg/dL (0.6-1.0) Estimated GFR (Cockcroft-Gault) 84.6 Glucose Level 155 mg/dL (70-99) Calcium Level 9.3 mg/dL (8.5-10.1) Phosphorus Level 3.0 mg/dL (2.6-4.7) Magnesium Level 2.2 mg/dL (1.8-2.4) Triglycerides Level 107 mg/dL (0-150) Laboratory Tests Test 12/23/18 10:00 12/23/18 11:38 12/23/18 13:40 12/23/18 17:00 Glucose (Fingerstick) 98 mg/dL (70-99) 112 mg/dL (70-99) 100 mg/dL (70-99) White Blood Count 6.1 x10^3/uL (4.0-11.0) Red Blood Count 3.29 x10^6/uL (3.50-5.40) Hemoglobin 8.0 g/dL (12.0-15.5) Hematocrit 25.7 % (36.0-47.0) Mean Corpuscular Volume 78 fL (79-100) Mean Corpuscular Hemoglobin 24 pg (25-35) Mean Corpuscular Hemoglobin Concent 31 g/dL (31-37) Red Cell Distribution Width 23.6 % (11.5-14.5) Platelet Count 235 x10^3/uL (140-400) Procalcitonin 0.15 ng/mL (0.00-0.10) Test 12/23/18 17:40 12/23/18 20:59 12/24/18 05:00 12/24/18 08:02 Urine Color Yellow Urine Clarity Clear Urine pH 6.0 Urine Specific [place] 1.025 Urine Protein Negative mg/dL (NEG-TRACE) Urine Glucose (UA) Negative mg/dL (NEG) Urine Ketones (Stick) 15 mg/dL (NEG) Urine Blood Negative (NEG) Urine Nitrite Negative (NEG) Urine Bilirubin Negative (NEG) Urine Urobilinogen Dipstick 0.2 mg/dL (0.2 mg/dL) Urine Leukocyte Esterase Negative (NEG) Urine RBC 0 /HPF (0-2) Urine WBC Occ /HPF (0-4) Urine Squamous Epithelial Cells Occ /LPF Urine Bacteria 0 /HPF (0-FEW) Urine Hyaline Casts Occasional /HPF Urine Mucus Mod /LPF Glucose (Fingerstick) 98 mg/dL (70-99) 169 mg/dL (70-99) White Blood Count 6.6 x10^3/uL (4.0-11.0) Red Blood Count 3.26 x10^6/uL (3.50-5.40) Hemoglobin 8.0 g/dL (12.0-15.5) Hematocrit 25.6 % (36.0-47.0) Mean Corpuscular Volume 79 fL (79-100) Mean Corpuscular Hemoglobin 25 pg (25-35) Mean Corpuscular Hemoglobin Concent 31 g/dL (31-37) Red Cell Distribution Width 23.5 % (11.5-14.5) Platelet Count 240 x10^3/uL (140-400) Sodium Level 145 mmol/L (136-145) Potassium Level 4.0 mmol/L (3.5-5.1) Chloride Level 109 mmol/L (98-107) Carbon Dioxide Level 25 mmol/L (21-32) Anion Gap 11 (6-14) Blood Urea Nitrogen 34 mg/dL (7-20) Creatinine 0.8 mg/dL (0.6-1.0) Estimated GFR (Cockcroft-Gault) 84.6 Glucose Level 155 mg/dL (70-99) Calcium Level 9.3 mg/dL (8.5-10.1) Phosphorus Level 3.0 mg/dL (2.6-4.7) Magnesium Level 2.2 mg/dL (1.8-2.4) Triglycerides Level 107 mg/dL (0-150) Assessment/Plan Status post right colon resection with postop ileus Minimal NG tube output will removed today continue nothing by mouth until bowel more functional DAYLIN WEI MD Dec 24, 2018 09:23
--- NOTE | 2018-12-24 09:25 | PDOC ---
Subjective: Subjective: Wants a pillow behind her back and wants a spoon for ice chips. Doesn't really have any abdominal complaints. Objective: Vital Signs: Vital Signs Date Time Temp Pulse Resp B/P (MAP) Pulse Ox O2 Delivery O2 Flow Rate FiO2 12/24/18 07:14 Nasal Cannula 4.0 12/24/18 07:00 97.9 89 16 151/91 (111) 92 97.9 Labs: Laboratory Tests Test 12/23/18 10:00 12/23/18 11:38 12/23/18 13:40 12/23/18 17:00 Glucose (Fingerstick) 98 mg/dL 112 mg/dL 100 mg/dL White Blood Count 6.1 x10^3/uL Red Blood Count 3.29 x10^6/uL Hemoglobin 8.0 g/dL Hematocrit 25.7 % Mean Corpuscular Volume 78 fL Mean Corpuscular Hemoglobin 24 pg Mean Corpuscular Hemoglobin Concent 31 g/dL Red Cell Distribution Width 23.6 % Platelet Count 235 x10^3/uL Procalcitonin 0.15 ng/mL Test 12/23/18 17:40 12/23/18 20:59 12/24/18 05:00 12/24/18 08:02 Urine Color Yellow Urine Clarity Clear Urine pH 6.0 Urine Specific [place] 1.025 Urine Protein Negative mg/dL Urine Glucose (UA) Negative mg/dL Urine Ketones (Stick) 15 mg/dL Urine Blood Negative Urine Nitrite Negative Urine Bilirubin Negative Urine Urobilinogen Dipstick 0.2 mg/dL Urine Leukocyte Esterase Negative Urine RBC 0 /HPF Urine WBC Occ /HPF Urine Squamous Epithelial Cells Occ /LPF Urine Bacteria 0 /HPF Urine Hyaline Casts Occasional /HPF Urine Mucus Mod /LPF Glucose (Fingerstick) 98 mg/dL 169 mg/dL White Blood Count 6.6 x10^3/uL Red Blood Count 3.26 x10^6/uL Hemoglobin 8.0 g/dL Hematocrit 25.6 % Mean Corpuscular Volume 79 fL Mean Corpuscular Hemoglobin 25 pg Mean Corpuscular Hemoglobin Concent 31 g/dL Red Cell Distribution Width 23.5 % Platelet Count 240 x10^3/uL Sodium Level 145 mmol/L Potassium Level 4.0 mmol/L Chloride Level 109 mmol/L Carbon Dioxide Level 25 mmol/L Anion Gap 11 Blood Urea Nitrogen 34 mg/dL Creatinine 0.8 mg/dL Estimated GFR (Cockcroft-Gault) 84.6 Glucose Level 155 mg/dL Calcium Level 9.3 mg/dL Phosphorus Level 3.0 mg/dL Magnesium Level 2.2 mg/dL Triglycerides Level 107 mg/dL PE: GEN: looks uncomfortable HEENT: NG w/ <300cc in canister LUNGS: NC ABD: distended, quiet NEURO/PSYCH: a little confused? A/P: COPD, resp failure S/p right colon resection and hemorrhoidectomy - postop ileus vs SBO, s/p PICC on TPN, has NG tube -- Continue per surgery. RADHA JUSTICE Dec 24, 2018 09:25
[2018-12-24] MEDS: CEFEPIME HCL IV Push 2 GM VIAL. IVP SCH ×2 (10:15→20:10)
[2018-12-24] MEDS: NICOTINE 14MG PATCH. TD PRN (10:15)
[2018-12-24] MEDS: PANTOPRAZOLE IV PUSH 40 MG VIAL. IVP SCH (10:15)
[2018-12-24 11:00] VITALS: BP 141/93
--- NOTE | 2018-12-24 11:04 | PDOC ---
Infectious Disease Note Subjective Subjective pt is feeling little better, no new complaints, abd distention less Vital Sign Vital Signs Vital Signs Date Time Temp Pulse Resp B/P (MAP) Pulse Ox O2 Delivery O2 Flow Rate FiO2 12/24/18 07:14 Nasal Cannula 4.0 12/24/18 07:00 97.9 89 16 151/91 (111) 92 97.9 Physical Exam PHYSICAL EXAM GENERAL: Alert, oriented female, not in distress. VITAL SIGNS: Stable. tachypneic HEENT: NAD. NECK: Supple, no JVP, no lymphadenopathy. LUNGS: Clear. HEART: S1, S2 regular. ABDOMEN: Benign. The patient's incisions are well approximated without any signs of infection. There is no tenderness, rebound or guarding. No organomegaly. EXTREMITIES: No edema or cyanosis. SKIN: Unremarkable. NEUROLOGIC: The patient is neurologically intact. Labs Lab Laboratory Tests Test 12/23/18 11:38 12/23/18 13:40 12/23/18 17:00 12/23/18 17:40 Glucose (Fingerstick) 112 mg/dL (70-99) 100 mg/dL (70-99) White Blood Count 6.1 x10^3/uL (4.0-11.0) Red Blood Count 3.29 x10^6/uL (3.50-5.40) Hemoglobin 8.0 g/dL (12.0-15.5) Hematocrit 25.7 % (36.0-47.0) Mean Corpuscular Volume 78 fL (79-100) Mean Corpuscular Hemoglobin 24 pg (25-35) Mean Corpuscular Hemoglobin Concent 31 g/dL (31-37) Red Cell Distribution Width 23.6 % (11.5-14.5) Platelet Count 235 x10^3/uL (140-400) Procalcitonin 0.15 ng/mL (0.00-0.10) Urine Color Yellow Urine Clarity Clear Urine pH 6.0 Urine Specific [place] 1.025 Urine Protein Negative mg/dL (NEG-TRACE) Urine Glucose (UA) Negative mg/dL (NEG) Urine Ketones (Stick) 15 mg/dL (NEG) Urine Blood Negative (NEG) Urine Nitrite Negative (NEG) Urine Bilirubin Negative (NEG) Urine Urobilinogen Dipstick 0.2 mg/dL (0.2 mg/dL) Urine Leukocyte Esterase Negative (NEG) Urine RBC 0 /HPF (0-2) Urine WBC Occ /HPF (0-4) Urine Squamous Epithelial Cells Occ /LPF Urine Bacteria 0 /HPF (0-FEW) Urine Hyaline Casts Occasional /HPF Urine Mucus Mod /LPF Test 12/23/18 20:59 12/24/18 05:00 12/24/18 08:02 Glucose (Fingerstick) 98 mg/dL (70-99) 169 mg/dL (70-99) White Blood Count 6.6 x10^3/uL (4.0-11.0) Red Blood Count 3.26 x10^6/uL (3.50-5.40) Hemoglobin 8.0 g/dL (12.0-15.5) Hematocrit 25.6 % (36.0-47.0) Mean Corpuscular Volume 79 fL (79-100) Mean Corpuscular Hemoglobin 25 pg (25-35) Mean Corpuscular Hemoglobin Concent 31 g/dL (31-37) Red Cell Distribution Width 23.5 % (11.5-14.5) Platelet Count 240 x10^3/uL (140-400) Sodium Level 145 mmol/L (136-145) Potassium Level 4.0 mmol/L (3.5-5.1) Chloride Level 109 mmol/L (98-107) Carbon Dioxide Level 25 mmol/L (21-32) Anion Gap 11 (6-14) Blood Urea Nitrogen 34 mg/dL (7-20) Creatinine 0.8 mg/dL (0.6-1.0) Estimated GFR (Cockcroft-Gault) 84.6 Glucose Level 155 mg/dL (70-99) Calcium Level 9.3 mg/dL (8.5-10.1) Phosphorus Level 3.0 mg/dL (2.6-4.7) Magnesium Level 2.2 mg/dL (1.8-2.4) Triglycerides Level 107 mg/dL (0-150) Micro Microbiology 12/19/18 Blood Culture - Preliminary, Resulted NO GROWTH AFTER 1 DAY Objective Assessment ? Sepsis,, Leukocytosis post surgery and leukopenia now, no fever S/P rt hemicolectomy COPD Pneumonia Ileus Plan Plan of Care bc neg cxr ok abg noted cefepime supportive care lactic acid normal ct chest, abd and pelvis noted d/w son SALINAS,DENI R MD Dec 24, 2018 11:04
--- NOTE | 2018-12-24 11:14 | PDOC ---
PROGRESS NOTES Chief Complaint Chief Complaint transferred back [facility] ICU to floor. still anxious. no BM but passing gas. NG tube in place to suction. History of Present Illness History of Present Illness Assessment/Plan 1. Acute hypoxic respiratory failure secondary to underlying chronic obstructive pulmonary disease and increasing abdominal distention related to ileus: continue supplemental 02. decompress bowel with NG tube to suction.. NPO for now. GI and Gen sx following. NPO status. PICC in place with TPN. 2. S/p right colon resection and hemorrhoidectomy secondary to bleeding cecal ulcer, path negative for malignancy . 3. Underlying COPD. bronchodilator therapy 4. VISHNU, resolving 5. Sepsis/Leukopenia. started cefepime. check cultures. apprec ID - unclear if there is actually a pneumonia, mostly atelectatic lungs 6. Gi bleed acute ,Questionable GI bleed with anemia marked anemia POA. hb stable Colonoscopy in 11/2017 showed diverticulosis, EGD 11/2018 showed non-erosive gastritis Operative Note Date: 12/17/2018 Preoperative diagnosis: GI bleed cecal ulceration by colonoscopy with active bleeding hemorrhoids Postoperative diagnosis: Same Procedure: Laparoscopic-assisted right colon resection and hemorrhoidectomy Surgeon: Jan Specimen: Right colon and hemorrhoids Vitals Vitals Vital Signs Date Time Temp Pulse Resp B/P (MAP) Pulse Ox O2 Delivery O2 Flow Rate FiO2 12/24/18 07:14 Nasal Cannula 4.0 12/24/18 07:00 97.9 89 16 151/91 (111) 92 97.9 Physical Exam Physical Exam GENERAL: Alert, oriented female, not in distress. VITAL SIGNS: Stable. tachypneic HEENT: NAD. NECK: Supple, no JVP, no lymphadenopathy. LUNGS: Clear. HEART: S1, S2 regular. ABDOMEN: Benign. The patient's incisions are well approximated without any signs of infection. There is no tenderness, rebound or guarding. No organomegaly. EXTREMITIES: No edema or cyanosis. SKIN: Unremarkable. NEUROLOGIC: The patient is neurologically intact. General: Alert, Oriented X3, Cooperative, mild distress Heart: Regular rate, Normal S1, Normal S2, No murmurs Lungs: Clear Abdomen: Normal bowel sounds, Soft (clean dry and intact mildly distended minimal NG tube output) Extremities: No clubbing, No cyanosis, No edema Skin: No significant lesion Labs LABS Laboratory Tests Test 12/23/18 11:38 12/23/18 13:40 12/23/18 17:00 12/23/18 17:40 Glucose (Fingerstick) 112 mg/dL (70-99) 100 mg/dL (70-99) White Blood Count 6.1 x10^3/uL (4.0-11.0) Red Blood Count 3.29 x10^6/uL (3.50-5.40) Hemoglobin 8.0 g/dL (12.0-15.5) Hematocrit 25.7 % (36.0-47.0) Mean Corpuscular Volume 78 fL (79-100) Mean Corpuscular Hemoglobin 24 pg (25-35) Mean Corpuscular Hemoglobin Concent 31 g/dL (31-37) Red Cell Distribution Width 23.6 % (11.5-14.5) Platelet Count 235 x10^3/uL (140-400) Procalcitonin 0.15 ng/mL (0.00-0.10) Urine Color Yellow Urine Clarity Clear Urine pH 6.0 Urine Specific [place] 1.025 Urine Protein Negative mg/dL (NEG-TRACE) Urine Glucose (UA) Negative mg/dL (NEG) Urine Ketones (Stick) 15 mg/dL (NEG) Urine Blood Negative (NEG) Urine Nitrite Negative (NEG) Urine Bilirubin Negative (NEG) Urine Urobilinogen Dipstick 0.2 mg/dL (0.2 mg/dL) Urine Leukocyte Esterase Negative (NEG) Urine RBC 0 /HPF (0-2) Urine WBC Occ /HPF (0-4) Urine Squamous Epithelial Cells Occ /LPF Urine Bacteria 0 /HPF (0-FEW) Urine Hyaline Casts Occasional /HPF Urine Mucus Mod /LPF Test 12/23/18 20:59 12/24/18 05:00 12/24/18 08:02 Glucose (Fingerstick) 98 mg/dL (70-99) 169 mg/dL (70-99) White Blood Count 6.6 x10^3/uL (4.0-11.0) Red Blood Count 3.26 x10^6/uL (3.50-5.40) Hemoglobin 8.0 g/dL (12.0-15.5) Hematocrit 25.6 % (36.0-47.0) Mean Corpuscular Volume 79 fL (79-100) Mean Corpuscular Hemoglobin 25 pg (25-35) Mean Corpuscular Hemoglobin Concent 31 g/dL (31-37) Red Cell Distribution Width 23.5 % (11.5-14.5) Platelet Count 240 x10^3/uL (140-400) Sodium Level 145 mmol/L (136-145) Potassium Level 4.0 mmol/L (3.5-5.1) Chloride Level 109 mmol/L (98-107) Carbon Dioxide Level 25 mmol/L (21-32) Anion Gap 11 (6-14) Blood Urea Nitrogen 34 mg/dL (7-20) Creatinine 0.8 mg/dL (0.6-1.0) Estimated GFR (Cockcroft-Gault) 84.6 Glucose Level 155 mg/dL (70-99) Calcium Level 9.3 mg/dL (8.5-10.1) Phosphorus Level 3.0 mg/dL (2.6-4.7) Magnesium Level 2.2 mg/dL (1.8-2.4) Triglycerides Level 107 mg/dL (0-150) Comment Review of Relevant I have reviewed the following items abdifatah (where applicable) has been applied. Labs Laboratory Tests Test 12/22/18 15:00 12/22/18 16:39 12/23/18 10:00 12/23/18 11:38 Nasal Screen MRSA (PCR) Negative (Negative) Glucose (Fingerstick) 107 mg/dL (70-99) 98 mg/dL (70-99) 112 mg/dL (70-99) Test 12/23/18 13:40 12/23/18 17:00 12/23/18 17:40 12/23/18 20:59 White Blood Count 6.1 x10^3/uL (4.0-11.0) Red Blood Count 3.29 x10^6/uL (3.50-5.40) Hemoglobin 8.0 g/dL (12.0-15.5) Hematocrit 25.7 % (36.0-47.0) Mean Corpuscular Volume 78 fL (79-100) Mean Corpuscular Hemoglobin 24 pg (25-35) Mean Corpuscular Hemoglobin Concent 31 g/dL (31-37) Red Cell Distribution Width 23.6 % (11.5-14.5) Platelet Count 235 x10^3/uL (140-400) Procalcitonin 0.15 ng/mL (0.00-0.10) Glucose (Fingerstick) 100 mg/dL (70-99) 98 mg/dL (70-99) Urine Color Yellow Urine Clarity Clear Urine pH 6.0 Urine Specific [place] 1.025 Urine Protein Negative mg/dL (NEG-TRACE) Urine Glucose (UA) Negative mg/dL (NEG) Urine Ketones (Stick) 15 mg/dL (NEG) Urine Blood Negative (NEG) Urine Nitrite Negative (NEG) Urine Bilirubin Negative (NEG) Urine Urobilinogen Dipstick 0.2 mg/dL (0.2 mg/dL) Urine Leukocyte Esterase Negative (NEG) Urine RBC 0 /HPF (0-2) Urine WBC Occ /HPF (0-4) Urine Squamous Epithelial Cells Occ /LPF Urine Bacteria 0 /HPF (0-FEW) Urine Hyaline Casts Occasional /HPF Urine Mucus Mod /LPF Test 12/24/18 05:00 12/24/18 08:02 White Blood Count 6.6 x10^3/uL (4.0-11.0) Red Blood Count 3.26 x10^6/uL (3.50-5.40) Hemoglobin 8.0 g/dL (12.0-15.5) Hematocrit 25.6 % (36.0-47.0) Mean Corpuscular Volume 79 fL (79-100) Mean Corpuscular Hemoglobin 25 pg (25-35) Mean Corpuscular Hemoglobin Concent 31 g/dL (31-37) Red Cell Distribution Width 23.5 % (11.5-14.5) Platelet Count 240 x10^3/uL (140-400) Sodium Level 145 mmol/L (136-145) Potassium Level 4.0 mmol/L (3.5-5.1) Chloride Level 109 mmol/L (98-107) Carbon Dioxide Level 25 mmol/L (21-32) Anion Gap 11 (6-14) Blood Urea Nitrogen 34 mg/dL (7-20) Creatinine 0.8 mg/dL (0.6-1.0) Estimated GFR (Cockcroft-Gault) 84.6 Glucose Level 155 mg/dL (70-99) Calcium Level 9.3 mg/dL (8.5-10.1) Phosphorus Level 3.0 mg/dL (2.6-4.7) Magnesium Level 2.2 mg/dL (1.8-2.4) Triglycerides Level 107 mg/dL (0-150) Glucose (Fingerstick) 169 mg/dL (70-99) Laboratory Tests Test 12/23/18 11:38 12/23/18 13:40 12/23/18 17:00 12/23/18 17:40 Glucose (Fingerstick) 112 mg/dL (70-99) 100 mg/dL (70-99) White Blood Count 6.1 x10^3/uL (4.0-11.0) Red Blood Count 3.29 x10^6/uL (3.50-5.40) Hemoglobin 8.0 g/dL (12.0-15.5) Hematocrit 25.7 % (36.0-47.0) Mean Corpuscular Volume 78 fL (79-100) Mean Corpuscular Hemoglobin 24 pg (25-35) Mean Corpuscular Hemoglobin Concent 31 g/dL (31-37) Red Cell Distribution Width 23.6 % (11.5-14.5) Platelet Count 235 x10^3/uL (140-400) Procalcitonin 0.15 ng/mL (0.00-0.10) Urine Color Yellow Urine Clarity Clear Urine pH 6.0 Urine Specific [place] 1.025 Urine Protein Negative mg/dL (NEG-TRACE) Urine Glucose (UA) Negative mg/dL (NEG) Urine Ketones (Stick) 15 mg/dL (NEG) Urine Blood Negative (NEG) Urine Nitrite Negative (NEG) Urine Bilirubin Negative (NEG) Urine Urobilinogen Dipstick 0.2 mg/dL (0.2 mg/dL) Urine Leukocyte Esterase Negative (NEG) Urine RBC 0 /HPF (0-2) Urine WBC Occ /HPF (0-4) Urine Squamous Epithelial Cells Occ /LPF Urine Bacteria 0 /HPF (0-FEW) Urine Hyaline Casts Occasional /HPF Urine Mucus Mod /LPF Test 12/23/18 20:59 12/24/18 05:00 12/24/18 08:02 Glucose (Fingerstick) 98 mg/dL (70-99) 169 mg/dL (70-99) White Blood Count 6.6 x10^3/uL (4.0-11.0) Red Blood Count 3.26 x10^6/uL (3.50-5.40) Hemoglobin 8.0 g/dL (12.0-15.5) Hematocrit 25.6 % (36.0-47.0) Mean Corpuscular Volume 79 fL (79-100) Mean Corpuscular Hemoglobin 25 pg (25-35) Mean Corpuscular Hemoglobin Concent 31 g/dL (31-37) Red Cell Distribution Width 23.5 % (11.5-14.5) Platelet Count 240 x10^3/uL (140-400) Sodium Level 145 mmol/L (136-145) Potassium Level 4.0 mmol/L (3.5-5.1) Chloride Level 109 mmol/L (98-107) Carbon Dioxide Level 25 mmol/L (21-32) Anion Gap 11 (6-14) Blood Urea Nitrogen 34 mg/dL (7-20) Creatinine 0.8 mg/dL (0.6-1.0) Estimated GFR (Cockcroft-Gault) 84.6 Glucose Level 155 mg/dL (70-99) Calcium Level 9.3 mg/dL (8.5-10.1) Phosphorus Level 3.0 mg/dL (2.6-4.7) Magnesium Level 2.2 mg/dL (1.8-2.4) Triglycerides Level 107 mg/dL (0-150) Microbiology 12/21/18 Blood Culture - Preliminary, Resulted NO GROWTH AFTER 3 DAYS Medications Current Medications Sodium Chloride 1,000 ml @ 1,000 mls/hr 1X ONCE IV Last administered on at 13:52; Start 12/14/18 at 13:30; Stop 12/14/18 at 14:29; Status DC Amlodipine Besylate (Norvasc) 10 mg DAILY PO Last administered on 12/22/18at 10: 30; Start 12/14/18 at 17:00 Chlorhexidine Gluconate (Peridex) 15 ml BID MM Last administered on 12/24/18at 09 :00; Start 12/14/18 at 21:00 Non-Formulary Medication (Albuterol Sulfate (Ventolin Hfa Inhaler)) 2 puff Q4HRS INH ; Start 12/14/18 at 20:00; Status UNV Ascorbic Acid (Vitamin C) 500 mg DAILY PO Last administered on 12/22/18 10:30; Start 12/14/18 at 17:00 Duloxetine HCl (Cymbalta) 90 mg DAILY PO Last administered on 12/22/18 10:30; Start 12/14/18 at 17:00 Ferrous Sulfate (Feosol) 325 mg DAILYWBKFT PO Last administered on 12/22/18 10: 30; Start 12/14/18 at 17:00 Losartan Potassium (Cozaar) 100 mg DAILY PO Last administered on 12/22/18 10:29 ; Start 12/14/18 at 17:00 Memantine (Namenda) 10 mg BID PO Last administered on 12/23/18 21:36; Start at 21:00 Pantoprazole Sodium (Protonix) 40 mg DAILYAC PO Last administered on 12/22/18 05:28; Start 12/14/18 at 17:00; Stop 12/24/18 at 09:25; Status DC Ropinirole HCl (Requip) 3 mg QHS PO Last administered on 12/23/18 21:36; Start 12/14/18 at 21:00 Spironolactone (Aldactone) 25 mg DAILY PO Last administered on 12/22/18 10:29; Start 12/14/18 at 17:00 Albuterol Sulfate (Ventolin Neb Soln) 2.5 mg Q4HRS NEB Last administered on 12/24 07:14; Start 12/14/18 at 20:00 Sodium Chloride 1,000 ml @ 80 mls/hr [id number] IV Last administered on 12/23/18 15:25; Start 12/14/18 at 17:15; Stop 12/23/18 at 21:59; Status DC Acetaminophen (Tylenol) 650 mg PRN Q6HRS PRN PO Pain Last administered on 21:27; Start 12/15/18 at 04:45 Polyethylene Glycol (miraLAX Powder BULK BOTTLE) 238 gm 1X ONCE PO Last administered on 12/15/18 12:48; Start 12/15/18 at 12:00; Stop 12/15/18 at 12:01 ; Status DC Ondansetron HCl (Zofran) 4 mg PRN Q6HRS PRN IV NAUSEA/VOMITING; Start 12/16/18 at 07:00; Stop 12/17/18 at 06:59; Status DC Fentanyl Citrate (Fentanyl 2ml Vial) 25 mcg PRN Q5MIN PRN IV MILD PAIN; Start 12/16/18 at 07:00; Stop 12/16/18 at 16:33; Status DC Fentanyl Citrate (Fentanyl 2ml Vial) 50 mcg PRN Q5MIN PRN IV MODERATE TO SEVERE PAIN; Start 12/16/18 at 07:00; Stop 12/16/18 at 16:33; Status DC Morphine Sulfate (Morphine Sulfate) 1 mg PRN Q10MIN PRN IV SEVERE PAIN; Start 12/16/18 at 07:00; Stop 12/17/18 at 06:59; Status DC Ringer's Solution 1,000 ml @ 30 mls/hr Q24H IV Last administered on 12/16/18at 13:00; Start 12/16/18 at 07:00; Stop 12/16/18 at 18:59; Status DC Lidocaine HCl (Xylocaine-Mpf 1% 2ml Vial) 2 ml PRN 1X PRN ID IV START; Start at 07:00; Stop 12/17/18 at 06:59; Status DC Hydromorphone HCl (Dilaudid) 0.5 mg PRN Q10MIN PRN IV SEV PAIN, Second choice; Start 12/16/18 at 07:00; Stop 12/17/18 at 06:59; Status DC Prochlorperazine Edisylate (Compazine) 5 mg PACU PRN PRN IV NAUSEA, MRX1; Start 12/16/18 at 07:00; Stop 12/17/18 at 06:59; Status DC Midazolam HCl (Versed) 2 mg PRN 1X PRN IV PRIOR TO PROCEDURE; Start 12/16/18 at 07:15; Stop 12/17/18 at 07:14; Status DC Fentanyl Citrate (Fentanyl 2ml Vial) 25 mcg PRN Q5MIN PRN IV X 2 DOSES FOR PAIN ; Start 12/16/18 at 07:15; Stop 12/16/18 at 16:33; Status DC Fentanyl Citrate (Fentanyl 2ml Vial) 50 mcg PRN Q5MIN PRN IV X 2 DOSES FOR PAIN ; Start 12/16/18 at 07:15; Stop 12/16/18 at 16:34; Status DC Ringer's Solution 1,000 ml @ 125 mls/hr Q8H IV ; Start 12/16/18 at 07:13; Stop 12/16/18 at 19:12; Status DC Lidocaine HCl (Xylocaine-Mpf 1% 2ml Vial) 2 ml 1X PRN PRN ID IV START; Start at 07:15; Stop 12/17/18 at 07:14; Status DC Propofol 40 ml @ As Directed STK-MED ONCE IV ; Start 12/16/18 at 13:58; Stop at 14:00; Status DC Prochlorperazine Edisylate (Compazine) 5 mg PACU PRN PRN IV NAUSEA, MRX1; Start 12/17/18 at 07:00; Stop 12/18/18 at 06:59; Status DC Hydromorphone HCl (Dilaudid) 0.5 mg PRN Q10MIN PRN IV SEV PAIN, Second choice; Start 12/17/18 at 07:00; Stop 12/18/18 at 06:59; Status DC Lidocaine HCl (Xylocaine-Mpf 1% 2ml Vial) 2 ml PRN 1X PRN ID IV START; Start at 07:00; Stop 12/18/18 at 06:59; Status DC Ringer's Solution 1,000 ml @ 30 mls/hr Q24H IV Last administered on 12/17/18at 10:34; Start 12/17/18 at 07:00; Stop 12/17/18 at 18:59; Status DC Morphine Sulfate (Morphine Sulfate) 1 mg PRN Q10MIN PRN IV SEVERE PAIN; Start 12/17/18 at 07:00; Stop 12/18/18 at 06:59; Status DC Fentanyl Citrate (Fentanyl 2ml Vial) 50 mcg PRN Q5MIN PRN IV MODERATE TO SEVERE PAIN Last administered on 12/17/18at 11:13; Start 12/17/18 at 07:00; Stop at 06:59; Status DC Fentanyl Citrate (Fentanyl 2ml Vial) 25 mcg PRN Q5MIN PRN IV MILD PAIN; Start 12/17/18 at 07:00; Stop 12/18/18 at 06:59; Status DC Ondansetron HCl (Zofran) 4 mg PRN Q6HRS PRN IV NAUSEA/VOMITING; Start 12/17/18 at 07:00; Stop 12/18/18 at 06:59; Status DC Propofol 20 ml @ As Directed STK-MED ONCE IV ; Start 12/17/18 at 07:21; Stop 12/17 at 07:23; Status DC Albuterol Sulfate (Ventolin Neb Soln) 2.5 mg 1X ONCE NEB ; Start 12/17/18 at 07: 30; Stop 12/17/18 at 07:31; Status DC Lidocaine HCl (Lidocaine Pf 2% Vial) 5 ml STK-MED ONCE .ROUTE ; Start 12/17/18 at 07:21; Stop 12/17/18 at 07:23; Status DC Succinylcholine Chloride (Anectine) 200 mg STK-MED ONCE .ROUTE ; Start 12/17/18 at 07:21; Stop 12/17/18 at 07:23; Status DC Rocuronium Canvas (Zemuron) 50 mg STK-MED ONCE .ROUTE ; Start 12/17/18 at 07:21 ; Stop 12/17/18 at 07:23; Status DC Fentanyl Citrate (Fentanyl 2ml Vial) 100 mcg STK-MED ONCE .ROUTE ; Start at 07:21; Stop 12/17/18 at 07:24; Status DC Cefazolin Sodium/ Dextrose 50 ml @ 100 mls/hr 1X ONCE IV Last administered on 12/17/18at 08:07; Start 12/17/18 at 07:45; Stop 12/17/18 at 08:18; Status DC Bupivacaine HCl/ Epinephrine Bitart (Sensorcain-Mpf Epi 0.5%-1:[id number]) 30 ml STK -MED ONCE .ROUTE Last administered on 12/17/18at 08:34; Start 12/17/18 at 07:46; Stop 12/17/18 at 07:49; Status DC Neomycin/ Polymyxin/ Bacitracin (Triple Antibiotic Ointment) 1 pkt STK-MED ONCE TP Last administered on 12/17/18at 10:07; Start 12/17/18 at 07:46; Stop 12/17/18 at 07:49; Status DC Neomycin/ Polymyxin/ Bacitracin (Triple Antibiotic Ointment) 1 pkt STK-MED ONCE TP Last administered on 12/17/18at 10:07; Start 12/17/18 at 07:46; Stop 12/17/18 at 07:49; Status DC Neomycin/ Polymyxin/ Bacitracin (Triple Antibiotic Ointment) 1 pkt STK-MED ONCE TP ; Start 12/17/18 at 07:47; Stop 12/17/18 at 07:49; Status DC Dexamethasone Sodium Phosphate (Decadron) 20 mg STK-MED ONCE .ROUTE ; Start 12/17 at 07:54; Stop 12/17/18 at 07:56; Status DC Hydrocortisone Sodium Succinate (Solu-CORTEF) 100 mg STK-MED ONCE .ROUTE ; Start 12/17/18 at 07:54; Stop 12/17/18 at 07:56; Status DC Desflurane (Suprane) 90 ml STK-MED ONCE IH ; Start 12/17/18 at 07:54; Stop at 07:56; Status DC Neostigmine Methylsulfate (Bloxiverz) 10 mg STK-MED ONCE .ROUTE ; Start 12/17/18 at 08:21; Stop 12/17/18 at 08:24; Status DC Glycopyrrolate (Robinul) 1 mg STK-MED ONCE .ROUTE ; Start 12/17/18 at 08:21; Stop 12/17/18 at 08:24; Status DC Phenylephrine HCl (Bogdan-Synephrine Inj) 10 mg STK-MED ONCE .ROUTE ; Start at 08:23; Stop 12/17/18 at 08:26; Status DC Desflurane (Suprane) 60 ml STK-MED ONCE IH ; Start 12/17/18 at 09:23; Stop at 09:26; Status DC Bupivacaine HCl/ Epinephrine Bitart (Sensorcain-Mpf Epi 0.5%-1:[id number]) 30 ml STK -MED ONCE .ROUTE Last administered on 12/17/18at 10:06; Start 12/17/18 at 09:41; Stop 12/17/18 at 09:43; Status DC Morphine Sulfate (Morphine Sulfate) 2 mg PRN Q2HR PRN IV PAIN Last administered on 12/24/18at 04:50; Start 12/17/18 at 10:15 Ketorolac Tromethamine (Toradol 15mg Vial) 15 mg Q6HRS IV Last administered on 12/18/18 05:39; Start 12/17/18 at 12:00; Stop 12/18/18 at 10:00; Status DC Artificial Tears (Artificial Tears) 1 drop PRN Q15MIN PRN OU DRY EYE Last administered on 12/20/18 21:28; Start 12/18/18 at 08:00 Docusate Sodium (Colace) 100 mg DAILY PO Last administered on 12/22/18 10:29; Start 12/18/18 at 10:00 Throat Lozenges (Cepacol Sore Throat Lozenge) 1 kristyn PRN Q2HRS PRN PO SORE THROAT Last administered on 12/20/18 19:46; Start 12/18/18 at 14:00 Enoxaparin Sodium (Lovenox 40mg Syringe) 40 mg Q24H SQ Last administered on 12/24 09:22; Start 12/19/18 at 09:00 Ondansetron HCl (Zofran) 4 mg PRN Q6HRS PRN IV NAUSEA/VOMITING Last administered on 12/23/18 10:49; Start 12/19/18 at 11:30 Insulin Human Lispro (HumaLOG) 0-5 UNITS TIDWMEALS SQ ; Start 12/19/18 at 17:00 Dextrose (Dextrose 50%-Water Syringe) 12.5 gm PRN Q15MIN PRN IV SEE COMMENTS; Start 12/19/18 at 16:45 Levofloxacin/ Dextrose 100 ml @ 100 mls/hr 1X ONCE IV Last administered on 20:56; Start 12/19/18 at 21:00; Stop 12/19/18 at 21:59; Status DC Cefepime HCl (Maxipime) 2 gm Q12HR IVP Last administered on 12/24/18 10:15; Start 12/21/18 at 10:00 Sodium Chloride 1,000 ml @ 125 mls/hr 1X ONCE IV Last administered on 10:43; Start 12/21/18 at 09:45; Stop 12/21/18 at 17:44; Status DC Calcium Carbonate/ Glycine (Tums) 500 mg PRN AFTMEALHC PRN PO INDIGESTION Last administered on 12/21/18 13:10; Start 12/21/18 at 12:15 Lorazepam (Ativan) 1 mg 1X ONCE IV Last administered on 12/21/18at 17:50; Start 12/21/18 at 17:30; Stop 12/21/18 at 17:31; Status DC Albuterol Sulfate (Ventolin Neb Soln) 2.5 mg PRN Q2HRS PRN NEB SHORTNESS OF BREATH; Start 12/21/18 at 17:30 Nicotine (Nicoderm Cq 14mg) 1 patch PRN DAILY PRN TD SMOKING CESSATION Last administered on 12/24/18 10:15; Start 12/21/18 at 19:30 Lorazepam (Ativan) 1 mg 1X ONCE IV Last administered on 12/21/18at 23:45; Start 12/21/18 at 23:45; Stop 12/21/18 at 23:46; Status DC Lorazepam (Ativan) 1 mg PRN Q4HRS PRN IV ANXIETY / AGITATION Last administered on 12/22/18 11:15; Start 12/21/18 at 23:30; Stop 12/22/18 at 14:42; Status DC Sodium Chloride 1,000 ml @ 250 mls/hr 1X ONCE IV Last administered on 09:15; Start 12/22/18 at 09:15; Stop 12/22/18 at 13:14; Status DC Lidocaine/Sodium Bicarbonate (Buffered Lidocaine 1%) 3 ml STK-MED ONCE .ROUTE ; Start 12/23/18 at 10:33; Stop 12/23/18 at 10:35; Status DC Lidocaine/Sodium Bicarbonate (Buffered Lidocaine 1%) 3 ml 1X ONCE INJ Last administered on 12/23/18at 11:24; Start 12/23/18 at 11:00; Stop 12/23/18 at 11:10; Status DC Info (Tpn Per Pharmacy) 1 each PRN DAILY PRN MC SEE COMMENTS Last administered on 12/23/18at 14:31; Start 12/23/18 at 14:00 Sodium Chloride 90 meq/Potassium Chloride 50 meq/ Potassium Phosphate 20.4 mmol/ Magnesium Sulfate 18 meq/ Calcium Gluconate 5 meq/ Multivitamins 10 ml/Chromium / Copper/Manganese/ Seleni/Zn 1 ml/ Total Parenteral Nutrition/Amino Acids/ Dextrose/ Fat Emulsion Intravenous 1,512 ml @ 63 mls/hr TPN CONT IV Last administered on 12/23/18at 21:37; Start 12/23/18 at 22:00; Stop 12/24/18 at 21:59 Alprazolam (Xanax) 0.25 mg PRN BID PRN PO ANXIETY / AGITATION Last administered on 12/23/18at 23:05; Start 12/23/18 at 23:00 Lorazepam (Ativan) 1 mg PRN Q4HRS PRN IV ANXIETY / AGITATION Last administered on 12/24/18at 09:21; Start 12/24/18 at 08:45; Stop 12/24/18 at 10:19; Status DC Pantoprazole Sodium (PROTONIX VIAL for IV PUSH) 40 mg DAILYAC IVP Last administered on 12/24/18at 10:15; Start 12/24/18 at 09:30 Lorazepam (Ativan) 0.5 mg PRN Q4HRS PRN IV ANXIETY / AGITATION; Start 12/24/18 at 10:30 Active Scripts Active Chlorhexidine Gluconate 473 Ml Mouthwash 473 Ml MM BID 7 Days Vitamin C (Ascorbate Calcium) 500 Mg Tablet 500 Mg PO DAILY 30 Days Slow Release Iron (Ferrous Sulfate) 250 Mg Tablet.er 250 Mg PO DAILY 30 Days Protonix (Pantoprazole Sodium) 40 Mg Grankofikt. 40 Mg PO DAILY 30 Days Reported Alprazolam 0.25 Mg Tablet 0.25 Mg PO DAILY Metformin Hcl Er (Metformin Hcl) 500 Mg Tab.er.24h 1 Tab PO DAILY Namenda (Memantine Hcl) 10 Mg Tablet 1 Tab PO BID Losartan Potassium 100 Mg Tablet 100 Mg PO DAILY Spironolactone 25 Mg Tablet 1 Tab PO DAILY Ventolin Hfa Inhaler (Albuterol Sulfate) 18 Gm Hfa.aer.ad 2 Puff INH Q4HRS Cymbalta (Duloxetine Hcl) 20 Mg Capsule. 90 Mg PO DAILY Requip (Ropinirole Hcl) 1 Mg Tablet 3 Mg PO DAILY Amlodipine Besylate 10 Mg Tablet 10 Mg PO DAILY Vitals/I & O Vital Sign - Last 24 Hours 12/23/18 12/23/18 12/23/18 12/23/18 11:30 11:40 13:37 15:00 Temp 97.9 98.1 97.9 98.1 Pulse 95 101 Resp 16 16 B/P (MAP) 129/80 (96) 107/81 (90) Pulse Ox 92 95 91 O2 Delivery Nasal Cannula Room Air Nasal Cannula Room Air O2 Flow Rate 4.0 3.0 12/23/18 12/23/18 12/23/18 12/23/18 15:25 15:50 19:00 19:38 Temp 98.1 98.1 Pulse 104 Resp 18 B/P (MAP) 132/82 (99) Pulse Ox 95 94 O2 Delivery Nasal Cannula Nasal Cannula Nasal Cannula O2 Flow Rate 3.0 3.0 4.0 12/23/18 12/23/18 12/23/18 12/23/18 19:45 20:00 20:20 23:00 Temp 97.9 97.9 Pulse 114 Resp 18 B/P (MAP) 137/82 (100) Pulse Ox 94 O2 Delivery Nasal Cannula Nasal Cannula Nasal Cannula Nasal Cannula O2 Flow Rate 3.0 3.0 4.0 3.0 12/23/18 12/24/18 12/24/18 12/24/18 23:51 03:00 04:19 07:00 Temp 97.6 97.9 97.6 97.9 Pulse 100 89 Resp 18 16 B/P (MAP) 136/87 (103) 151/91 (111) Pulse Ox 96 92 O2 Delivery Nasal Cannula Nasal Cannula Nasal Cannula Room Air O2 Flow Rate 3.0 3.0 3.0 12/24/18 07:14 O2 Delivery Nasal Cannula O2 Flow Rate 4.0 Intake and Output 12/23/18 12/23/18 12/24/18 15:01 23:01 07:01 Intake Total 480 ml Output Total 100 ml Balance 380 ml NICOLE RETANA MD Dec 24, 2018 11:14
--- NOTE | 2018-12-24 11:44 | PDOC ---
PULMONARY PROGRESS NOTES Subjective sleepy, received ativan Vitals Vital Signs Date Time Temp Pulse Resp B/P (MAP) Pulse Ox O2 Delivery O2 Flow Rate FiO2 12/24/18 11:15 Nasal Cannula 4.0 12/24/18 11:00 98.1 96 18 141/93 (109) 98 98.1 General: No acute distress Lungs: Clear Cardiovascular: S1 Abdomen: Soft, Other (distended) Extremities: No Edema Skin: Warm Labs Laboratory Tests Test 12/22/18 15:00 12/22/18 16:39 12/23/18 10:00 12/23/18 11:38 Nasal Screen MRSA (PCR) Negative (Negative) Glucose (Fingerstick) 107 mg/dL (70-99) 98 mg/dL (70-99) 112 mg/dL (70-99) Test 12/23/18 13:40 12/23/18 17:00 12/23/18 17:40 12/23/18 20:59 White Blood Count 6.1 x10^3/uL (4.0-11.0) Red Blood Count 3.29 x10^6/uL (3.50-5.40) Hemoglobin 8.0 g/dL (12.0-15.5) Hematocrit 25.7 % (36.0-47.0) Mean Corpuscular Volume 78 fL (79-100) Mean Corpuscular Hemoglobin 24 pg (25-35) Mean Corpuscular Hemoglobin Concent 31 g/dL (31-37) Red Cell Distribution Width 23.6 % (11.5-14.5) Platelet Count 235 x10^3/uL (140-400) Procalcitonin 0.15 ng/mL (0.00-0.10) Glucose (Fingerstick) 100 mg/dL (70-99) 98 mg/dL (70-99) Urine Color Yellow Urine Clarity Clear Urine pH 6.0 Urine Specific [place] 1.025 Urine Protein Negative mg/dL (NEG-TRACE) Urine Glucose (UA) Negative mg/dL (NEG) Urine Ketones (Stick) 15 mg/dL (NEG) Urine Blood Negative (NEG) Urine Nitrite Negative (NEG) Urine Bilirubin Negative (NEG) Urine Urobilinogen Dipstick 0.2 mg/dL (0.2 mg/dL) Urine Leukocyte Esterase Negative (NEG) Urine RBC 0 /HPF (0-2) Urine WBC Occ /HPF (0-4) Urine Squamous Epithelial Cells Occ /LPF Urine Bacteria 0 /HPF (0-FEW) Urine Hyaline Casts Occasional /HPF Urine Mucus Mod /LPF Test 12/24/18 05:00 12/24/18 08:02 White Blood Count 6.6 x10^3/uL (4.0-11.0) Red Blood Count 3.26 x10^6/uL (3.50-5.40) Hemoglobin 8.0 g/dL (12.0-15.5) Hematocrit 25.6 % (36.0-47.0) Mean Corpuscular Volume 79 fL (79-100) Mean Corpuscular Hemoglobin 25 pg (25-35) Mean Corpuscular Hemoglobin Concent 31 g/dL (31-37) Red Cell Distribution Width 23.5 % (11.5-14.5) Platelet Count 240 x10^3/uL (140-400) Sodium Level 145 mmol/L (136-145) Potassium Level 4.0 mmol/L (3.5-5.1) Chloride Level 109 mmol/L (98-107) Carbon Dioxide Level 25 mmol/L (21-32) Anion Gap 11 (6-14) Blood Urea Nitrogen 34 mg/dL (7-20) Creatinine 0.8 mg/dL (0.6-1.0) Estimated GFR (Cockcroft-Gault) 84.6 Glucose Level 155 mg/dL (70-99) Calcium Level 9.3 mg/dL (8.5-10.1) Phosphorus Level 3.0 mg/dL (2.6-4.7) Magnesium Level 2.2 mg/dL (1.8-2.4) Triglycerides Level 107 mg/dL (0-150) Glucose (Fingerstick) 169 mg/dL (70-99) Laboratory Tests Test 12/23/18 13:40 12/23/18 17:00 12/23/18 17:40 12/23/18 20:59 White Blood Count 6.1 x10^3/uL (4.0-11.0) Red Blood Count 3.29 x10^6/uL (3.50-5.40) Hemoglobin 8.0 g/dL (12.0-15.5) Hematocrit 25.7 % (36.0-47.0) Mean Corpuscular Volume 78 fL (79-100) Mean Corpuscular Hemoglobin 24 pg (25-35) Mean Corpuscular Hemoglobin Concent 31 g/dL (31-37) Red Cell Distribution Width 23.6 % (11.5-14.5) Platelet Count 235 x10^3/uL (140-400) Procalcitonin 0.15 ng/mL (0.00-0.10) Glucose (Fingerstick) 100 mg/dL (70-99) 98 mg/dL (70-99) Urine Color Yellow Urine Clarity Clear Urine pH 6.0 Urine Specific [place] 1.025 Urine Protein Negative mg/dL (NEG-TRACE) Urine Glucose (UA) Negative mg/dL (NEG) Urine Ketones (Stick) 15 mg/dL (NEG) Urine Blood Negative (NEG) Urine Nitrite Negative (NEG) Urine Bilirubin Negative (NEG) Urine Urobilinogen Dipstick 0.2 mg/dL (0.2 mg/dL) Urine Leukocyte Esterase Negative (NEG) Urine RBC 0 /HPF (0-2) Urine WBC Occ /HPF (0-4) Urine Squamous Epithelial Cells Occ /LPF Urine Bacteria 0 /HPF (0-FEW) Urine Hyaline Casts Occasional /HPF Urine Mucus Mod /LPF Test 12/24/18 05:00 12/24/18 08:02 White Blood Count 6.6 x10^3/uL (4.0-11.0) Red Blood Count 3.26 x10^6/uL (3.50-5.40) Hemoglobin 8.0 g/dL (12.0-15.5) Hematocrit 25.6 % (36.0-47.0) Mean Corpuscular Volume 79 fL (79-100) Mean Corpuscular Hemoglobin 25 pg (25-35) Mean Corpuscular Hemoglobin Concent 31 g/dL (31-37) Red Cell Distribution Width 23.5 % (11.5-14.5) Platelet Count 240 x10^3/uL (140-400) Sodium Level 145 mmol/L (136-145) Potassium Level 4.0 mmol/L (3.5-5.1) Chloride Level 109 mmol/L (98-107) Carbon Dioxide Level 25 mmol/L (21-32) Anion Gap 11 (6-14) Blood Urea Nitrogen 34 mg/dL (7-20) Creatinine 0.8 mg/dL (0.6-1.0) Estimated GFR (Cockcroft-Gault) 84.6 Glucose Level 155 mg/dL (70-99) Calcium Level 9.3 mg/dL (8.5-10.1) Phosphorus Level 3.0 mg/dL (2.6-4.7) Magnesium Level 2.2 mg/dL (1.8-2.4) Triglycerides Level 107 mg/dL (0-150) Glucose (Fingerstick) 169 mg/dL (70-99) Medications Active Scripts Medications Dose Route/Sig Max Daily Dose Days Date Category Chlorhexidine Gluconate 473 Ml Mouthwash 473 Ml MM BID 7 12/10/18 Rx Vitamin C (Ascorbate Calcium) 500 Mg Tablet 500 Mg PO DAILY 30 11/22/18 Rx Slow Release Iron (Ferrous Sulfate) 250 Mg Tablet.er 250 Mg PO DAILY 30 11/22/18 Rx Protonix (Pantoprazole Sodium) 40 Mg Granpkt.dr 40 Mg PO DAILY 11/22/18 Rx Metformin Hcl Er (Metformin Hcl) 500 Mg Tab.er.24h 1 Tab PO DAILY 11/12/16 Reported Namenda (Memantine Hcl) 10 Mg Tablet 1 Tab PO BID 11/12/16 Reported Losartan Potassium 100 Mg Tablet 100 Mg PO DAILY 11/12/16 Reported Spironolactone 25 Mg Tablet 1 Tab PO DAILY 11/12/16 Reported Ventolin Hfa Inhaler (Albuterol Sulfate) 18 Gm Hfa.aer.ad 2 Puff INH Q4HRS 11/11/16 Reported Cymbalta (Duloxetine Hcl) 20 Mg Capsule.dr 90 Mg PO DAILY 01/27/16 Reported Requip (Ropinirole Hcl) 1 Mg Tablet 3 Mg PO DAILY 01/27/16 Reported Amlodipine Besylate 10 Mg Tablet 10 Mg PO DAILY 01/27/16 Reported Impression . 1. Acute hypoxic respiratory failure secondary to underlying chronic obstructive pulmonary disease and increasing abdominal distention related to postop ileus. 2. Gastrointestinal bleed/cecal ulceration by colonoscopy, status post laparoscopic-assisted right colon resection and hemorrhoidectomy. 3. Postoperative ileus. 4. Underlying chronic obstructive pulmonary disease. 5. Abnormal CT chest with focal opacity in the right upper lobe, could be nodule. Needs to have a followup in 4-6 months. She also has bibasilar atelectasis, caused by abdominal distention. Clinically, less likely pneumonia. Plan . 1. Continue with present oxygen. 2. Continue bronchodilators. 3. DVT prophylaxis. 4. Antibiotics. 5. Bowel decompression per Surgery and GI. 6. ABGs are adequate, we will watch respiratory status closely. 7. p.r.n. BiPAP if needed. 8. Discussed with RN/ reduce ativan dose JEF CARLIN MD Dec 24, 2018 11:44
[2018-12-24] MEDS: TPN PER PHARMACY MC PRN (12:17)
--- NOTE | 2018-12-24 12:17 | NUR ---
Pharmacy TPN Dosing Note S: ELLE LATHAM is a 72 year old F Currently receiving Central Continuous TPN started 12/23/18 B:Pertinent PMH: SBO Height: 5 feet, 7 inches Weight: 85.688923 kg Current diet: npo LABS: Sodium: 145 Potassium: 4.0 Chloride: 109 Calcium: 9.3 Corrected Calcium: 10.50 Magnesium: 2.2 CO2: 25 SCr: 0.8 Glucose: 155-169 Albumin: 2.5 AST: 12 ALT: 12 TPN FORMULA: TPN TYPE: Central Continuous AMINO ACIDS: 60 gm DEXTROSE: 195 gm LIPIDS: 20 gm SODIUM CHLORIDE: 45 mEq SODIUM ACETATE: 45 mEq SODIUM PHOSPHATE: mmol POTASSIUM CHLORIDE: 50 mEq POTASSIUM ACETATE: mEq POTASSIUM PHOSPHATE: 20.4 mmol MAGNESIUM: 18 mEq CALCIUM: 5 mEq INSULIN: units MULTIPLE VITAMIN: 10 ml TRACE ELEMENTS: mte5 1 ml ml(s) TPN PLAN: Labs WNL. Dietary rec not received yet. Changed half of sodium to acetate salt for acid-base balance. No other changes, labs in AM. R: Begin TPN as above. Will monitor electrolytes, glucose, and tolerance to TPN. MELIA PRUITT [facility], 12/24/18 [id number]
[2018-12-24] MEDS ORDERED: PHENYLEPH/MINERAL OIL/PETROLAT RECTAL OINTMENT 28GM TUBE. RC PRN (12:45)
--- NOTE | 2018-12-24 13:52 | NUR ---
LATANYA following. Discussed with RN, pt is on TPN and has and NG tube. Initially pt wanted to discharge home with home health to her daughter's home. LATANYA met with pt who stated this again, however now has more needs than before ICU stay. Pt gave permission for SW to contact dtr, Deepa ([phone]) to discuss discharge planning. Deepa reported her mother is too unwell to come home and she will not take her home. Deepa stated her mother needs to go to a alf facility. LATANYA discussed possibility of pt going to [facility], Deepa in agreement. Deepa is going to contact her mother to discuss DPOA for healthcare paperwork and possibly have this completed here at [facility]. LATANYA faxed pt facesheet to [facility] to determine if pt meets criteria to go there. RN notified. LATANYA will continue to follow.
[2018-12-24 15:00] VITALS: BP 128/83
--- NOTE | 2018-12-24 15:36 | RAD ---
ACUTE ABDOMEN SERIES History: Recent colon resection, ileus versus small bowel obstruction Comparison: Abdomen radiograph 12/22/2018; chest radiograph 12/21/2018 Findings: Single AP view the chest and single supine and upright views of the abdomen are submitted. There is again degree of elevation of left hemidiaphragm. There is probable small pleural effusion with adjacent atelectasis or infiltrate, also mild right base atelectasis. There is now a right extremity PICC with the tip near the cavoatrial junction right atrium. Prominence of the mediastinal width is stable. There are low lung volumes. Heart size is similar. No pneumothorax is identified. There is persistent although somewhat decreased gaseous distention of the large and small bowel also with air-fluid levels, relative paucity of gas in the pelvis. There is enteric catheter coursing into the region of stomach. There is again posterolateral fusion hardware of the lumbar spine. Impression: 1. There is persistent although somewhat decreased gaseous distention of the large and small bowel again which may be due to due to ileus although distal obstruction not excluded. 2. There is likely at least small left pleural effusion with adjacent atelectasis or infiltrate also mild right base atelectasis. Electronically signed by: Hardik Packer MD (12/24/2018 3:31 PM) [id number]
[2018-12-24] MEDS: ALPRAZolam 0.25 MG TABLET PO PRN (16:30)
--- NOTE | 2018-12-24 16:37 | NUR ---
LATANYA following. SW met with pt, pt in agreement to go to [facility]. Pt also wanted to complete DPOA for Healthcare decisions. LATANYA explained this document and read document to pt. Pt appointed her daughter, Deepa and two sons, Jorge and Anthony. LATANYA - [place], notarized document, copied and placed on chart. Referral sent to [facility]. RN notified. LATANYA will continue to follow.
[2018-12-24 19:00] VITALS: BP 136/84
[2018-12-24] MEDS: rOPINIRole 1 MG TABLET. PO SCH (20:12)
[2018-12-24] MEDS ORDERED: DEXTROSE 70% IV SCH ×11 (22:00)
[2018-12-24] MEDS ORDERED: TOTAL PARENTERAL NUTRITION IV SCH ×11 (22:00)
[2018-12-24] MEDS ORDERED: AMINO ACID IV SCH ×11 (22:00)
[2018-12-24] MEDS ORDERED: [UNRECOGNIZED DRUG - OTHER] IV SCH ×11 (22:00)
[2018-12-24 23:00] VITALS: BP 142/86
[2018-12-25] MEDS: MORPHINE SULFATE 4 MG/ML VIAL. IV PRN ×3 (02:04→18:26)
[2018-12-25] MEDS: ALBUTEROL SULFATE 2.5 MG/3 ML NEBU. NEB SCH ×6 (02:25→23:12)
[2018-12-25 03:00] VITALS: BP 135/83
[2018-12-25] MEDS: PANTOPRAZOLE IV PUSH 40 MG VIAL. IVP SCH (05:45)
[2018-12-25 06:21] LABS: CALCIUM 9.5 mg/dL (8.5-10.1); CREATININE 0.8 mg/dL (0.6-1.0); GFR 84.6; MAGNESIUM 2.3 mg/dL (1.8-2.4); PHOSPHORUS 3.2 mg/dL (2.6-4.7); POTASSIUM 4.3 mmol/L (3.5-5.1)
[2018-12-25 07:00] VITALS: BP 139/90
[2018-12-25] MEDS: FERROUS SULFATE 325 MG TABLET. PO SCH (08:00)
[2018-12-25] MEDS: INSULIN LISPRO 300 UNITS/3 ML INSULN.PEN. SQ SCH ×3 (08:00→17:00)
[2018-12-25] MEDS: SPIRONOLACTONE 25 MG TABLET PO SCH (09:00)
[2018-12-25] MEDS: DULoxetine HCL 30 MG CAPSULE.DR PO SCH (09:00)
[2018-12-25] MEDS: MEMANTINE 10 MG TABLET. PO SCH ×2 (09:00→21:13)
[2018-12-25] MEDS: LOSARTAN POTASSIUM 50 MG TABLET. PO SCH (09:00)
[2018-12-25] MEDS: ASCORBIC ACID 500 MG TABLET PO SCH (09:00)
[2018-12-25] MEDS: DOCUSATE SODIUM 100 MG CAPSULE. PO SCH (09:00)
[2018-12-25] MEDS: ENOXAPARIN 40 MG/0.4 ML SYRINGE. SQ SCH (09:25)
[2018-12-25] MEDS: CEFEPIME HCL IV Push 2 GM VIAL. IVP SCH ×2 (09:25→21:13)
[2018-12-25] MEDS: CHLORHEXIDINE 0.12% 15 ML MOUTHWASH. MM SCH ×2 (09:25→21:12)
[2018-12-25] MEDS: NICOTINE 14MG PATCH. TD PRN (09:25)
[2018-12-25] MEDS: ALPRAZolam 0.25 MG TABLET PO PRN (09:25)
[2018-12-25] MEDS: amLODIPine BESYLATE 10 MG TABLET PO SCH (09:36)
--- NOTE | 2018-12-25 10:27 | PDOC ---
PROGRESS NOTES Subjective Subjective appears short of breath, not speaking much, nurse present Objective Objective Vital Signs Date Time Temp Pulse Resp B/P (MAP) Pulse Ox O2 Delivery O2 Flow Rate FiO2 12/25/18 09:36 98 139/90 12/25/18 09:26 Nasal Cannula 3.0 12/25/18 07:37 96 12/25/18 07:00 97.5 18 97.5 Intake and Output 12/25/18 07:01 Intake Total 30 ml Output Total 300 ml Balance -270 ml Intake Oral 30 ml Gastric Drainage Total 300 ml # Voids 5 Physical Exam Abdomen: Soft Assessment Assessment S/P R colectomy Plan Plan of Care Await return of bowel function Comment Review of Relevant I have reviewed the following items abdifatah (where applicable) has been applied. Labs Laboratory Tests Test 12/23/18 11:38 12/23/18 13:40 12/23/18 17:00 12/23/18 17:40 Glucose (Fingerstick) 112 mg/dL (70-99) 100 mg/dL (70-99) White Blood Count 6.1 x10^3/uL (4.0-11.0) Red Blood Count 3.29 x10^6/uL (3.50-5.40) Hemoglobin 8.0 g/dL (12.0-15.5) Hematocrit 25.7 % (36.0-47.0) Mean Corpuscular Volume 78 fL (79-100) Mean Corpuscular Hemoglobin 24 pg (25-35) Mean Corpuscular Hemoglobin Concent 31 g/dL (31-37) Red Cell Distribution Width 23.6 % (11.5-14.5) Platelet Count 235 x10^3/uL (140-400) Procalcitonin 0.15 ng/mL (0.00-0.10) Urine Color Yellow Urine Clarity Clear Urine pH 6.0 Urine Specific [place] 1.025 Urine Protein Negative mg/dL (NEG-TRACE) Urine Glucose (UA) Negative mg/dL (NEG) Urine Ketones (Stick) 15 mg/dL (NEG) Urine Blood Negative (NEG) Urine Nitrite Negative (NEG) Urine Bilirubin Negative (NEG) Urine Urobilinogen Dipstick 0.2 mg/dL (0.2 mg/dL) Urine Leukocyte Esterase Negative (NEG) Urine RBC 0 /HPF (0-2) Urine WBC Occ /HPF (0-4) Urine Squamous Epithelial Cells Occ /LPF Urine Bacteria 0 /HPF (0-FEW) Urine Hyaline Casts Occasional /HPF Urine Mucus Mod /LPF Test 12/23/18 20:59 12/24/18 05:00 12/24/18 08:02 12/24/18 10:57 Glucose (Fingerstick) 98 mg/dL (70-99) 169 mg/dL (70-99) 177 mg/dL (70-99) White Blood Count 6.6 x10^3/uL (4.0-11.0) Red Blood Count 3.26 x10^6/uL (3.50-5.40) Hemoglobin 8.0 g/dL (12.0-15.5) Hematocrit 25.6 % (36.0-47.0) Mean Corpuscular Volume 79 fL (79-100) Mean Corpuscular Hemoglobin 25 pg (25-35) Mean Corpuscular Hemoglobin Concent 31 g/dL (31-37) Red Cell Distribution Width 23.5 % (11.5-14.5) Platelet Count 240 x10^3/uL (140-400) Sodium Level 145 mmol/L (136-145) Potassium Level 4.0 mmol/L (3.5-5.1) Chloride Level 109 mmol/L (98-107) Carbon Dioxide Level 25 mmol/L (21-32) Anion Gap 11 (6-14) Blood Urea Nitrogen 34 mg/dL (7-20) Creatinine 0.8 mg/dL (0.6-1.0) Estimated GFR (Cockcroft-Gault) 84.6 Glucose Level 155 mg/dL (70-99) Calcium Level 9.3 mg/dL (8.5-10.1) Phosphorus Level 3.0 mg/dL (2.6-4.7) Magnesium Level 2.2 mg/dL (1.8-2.4) Triglycerides Level 107 mg/dL (0-150) Test 12/24/18 17:21 12/24/18 20:07 12/25/18 05:45 12/25/18 07:20 Glucose (Fingerstick) 165 mg/dL (70-99) 166 mg/dL (70-99) 152 mg/dL (70-99) Sodium Level 145 mmol/L (136-145) Potassium Level 4.3 mmol/L (3.5-5.1) Chloride Level 111 mmol/L (98-107) Carbon Dioxide Level 26 mmol/L (21-32) Anion Gap 8 (6-14) Blood Urea Nitrogen 29 mg/dL (7-20) Creatinine 0.8 mg/dL (0.6-1.0) Estimated GFR (Cockcroft-Gault) 84.6 Glucose Level 171 mg/dL (70-99) Calcium Level 9.5 mg/dL (8.5-10.1) Phosphorus Level 3.2 mg/dL (2.6-4.7) Magnesium Level 2.3 mg/dL (1.8-2.4) Laboratory Tests Test 12/24/18 10:57 12/24/18 17:21 12/24/18 20:07 12/25/18 05:45 Glucose (Fingerstick) 177 mg/dL (70-99) 165 mg/dL (70-99) 166 mg/dL (70-99) Sodium Level 145 mmol/L (136-145) Potassium Level 4.3 mmol/L (3.5-5.1) Chloride Level 111 mmol/L (98-107) Carbon Dioxide Level 26 mmol/L (21-32) Anion Gap 8 (6-14) Blood Urea Nitrogen 29 mg/dL (7-20) Creatinine 0.8 mg/dL (0.6-1.0) Estimated GFR (Cockcroft-Gault) 84.6 Glucose Level 171 mg/dL (70-99) Calcium Level 9.5 mg/dL (8.5-10.1) Phosphorus Level 3.2 mg/dL (2.6-4.7) Magnesium Level 2.3 mg/dL (1.8-2.4) Test 12/25/18 07:20 Glucose (Fingerstick) 152 mg/dL (70-99) Microbiology 12/21/18 Blood Culture - Preliminary, Resulted NO GROWTH AFTER 3 DAYS Medications Current Medications Sodium Chloride 1,000 ml @ 1,000 mls/hr 1X ONCE IV Last administered on at 13:52; Start 12/14/18 at 13:30; Stop 12/14/18 at 14:29; Status DC Amlodipine Besylate (Norvasc) 10 mg DAILY PO Last administered on 12/25/18 09: 36; Start 12/14/18 at 17:00 Chlorhexidine Gluconate (Peridex) 15 ml BID MM Last administered on 12/25/18 09 :25; Start 12/14/18 at 21:00 Non-Formulary Medication (Albuterol Sulfate (Ventolin Hfa Inhaler)) 2 puff Q4HRS INH ; Start 12/14/18 at 20:00; Status UNV Ascorbic Acid (Vitamin C) 500 mg DAILY PO Last administered on 12/22/18 10:30; Start 12/14/18 at 17:00 Duloxetine HCl (Cymbalta) 90 mg DAILY PO Last administered on 12/22/18 10:30; Start 12/14/18 at 17:00 Ferrous Sulfate (Feosol) 325 mg DAILYWBKFT PO Last administered on 12/22/18 10: 30; Start 12/14/18 at 17:00 Losartan Potassium (Cozaar) 100 mg DAILY PO Last administered on 12/22/18 10:29 ; Start 12/14/18 at 17:00 Memantine (Namenda) 10 mg BID PO Last administered on 12/24/18 20:12; Start at 21:00 Pantoprazole Sodium (Protonix) 40 mg DAILYAC PO Last administered on 12/22/18 05:28; Start 12/14/18 at 17:00; Stop 12/24/18 at 09:25; Status DC Ropinirole HCl (Requip) 3 mg QHS PO Last administered on 12/24/18 20:12; Start 12/14/18 at 21:00 Spironolactone (Aldactone) 25 mg DAILY PO Last administered on 12/22/18 10:29; Start 12/14/18 at 17:00 Albuterol Sulfate (Ventolin Neb Soln) 2.5 mg Q4HRS NEB Last administered on 12/25 07:33; Start 12/14/18 at 20:00 Sodium Chloride 1,000 ml @ 80 mls/hr [id number] IV Last administered on 12/23/18 15:25; Start 12/14/18 at 17:15; Stop 12/23/18 at 21:59; Status DC Acetaminophen (Tylenol) 650 mg PRN Q6HRS PRN PO Pain Last administered on at 21:27; Start 12/15/18 at 04:45 Polyethylene Glycol (miraLAX Powder BULK BOTTLE) 238 gm 1X ONCE PO Last administered on 12/15/18at 12:48; Start 12/15/18 at 12:00; Stop 12/15/18 at 12:01 ; Status DC Ondansetron HCl (Zofran) 4 mg PRN Q6HRS PRN IV NAUSEA/VOMITING; Start 12/16/18 at 07:00; Stop 12/17/18 at 06:59; Status DC Fentanyl Citrate (Fentanyl 2ml Vial) 25 mcg PRN Q5MIN PRN IV MILD PAIN; Start 12/16/18 at 07:00; Stop 12/16/18 at 16:33; Status DC Fentanyl Citrate (Fentanyl 2ml Vial) 50 mcg PRN Q5MIN PRN IV MODERATE TO SEVERE PAIN; Start 12/16/18 at 07:00; Stop 12/16/18 at 16:33; Status DC Morphine Sulfate (Morphine Sulfate) 1 mg PRN Q10MIN PRN IV SEVERE PAIN; Start 12/16/18 at 07:00; Stop 12/17/18 at 06:59; Status DC Ringer's Solution 1,000 ml @ 30 mls/hr Q24H IV Last administered on 12/16/18at 13:00; Start 12/16/18 at 07:00; Stop 12/16/18 at 18:59; Status DC Lidocaine HCl (Xylocaine-Mpf 1% 2ml Vial) 2 ml PRN 1X PRN ID IV START; Start at 07:00; Stop 12/17/18 at 06:59; Status DC Hydromorphone HCl (Dilaudid) 0.5 mg PRN Q10MIN PRN IV SEV PAIN, Second choice; Start 12/16/18 at 07:00; Stop 12/17/18 at 06:59; Status DC Prochlorperazine Edisylate (Compazine) 5 mg PACU PRN PRN IV NAUSEA, MRX1; Start 12/16/18 at 07:00; Stop 12/17/18 at 06:59; Status DC Midazolam HCl (Versed) 2 mg PRN 1X PRN IV PRIOR TO PROCEDURE; Start 12/16/18 at 07:15; Stop 12/17/18 at 07:14; Status DC Fentanyl Citrate (Fentanyl 2ml Vial) 25 mcg PRN Q5MIN PRN IV X 2 DOSES FOR PAIN ; Start 12/16/18 at 07:15; Stop 12/16/18 at 16:33; Status DC Fentanyl Citrate (Fentanyl 2ml Vial) 50 mcg PRN Q5MIN PRN IV X 2 DOSES FOR PAIN ; Start 12/16/18 at 07:15; Stop 12/16/18 at 16:34; Status DC Ringer's Solution 1,000 ml @ 125 mls/hr Q8H IV ; Start 12/16/18 at 07:13; Stop 12/16/18 at 19:12; Status DC Lidocaine HCl (Xylocaine-Mpf 1% 2ml Vial) 2 ml 1X PRN PRN ID IV START; Start at 07:15; Stop 12/17/18 at 07:14; Status DC Propofol 40 ml @ As Directed STK-MED ONCE IV ; Start 12/16/18 at 13:58; Stop at 14:00; Status DC Prochlorperazine Edisylate (Compazine) 5 mg PACU PRN PRN IV NAUSEA, MRX1; Start 12/17/18 at 07:00; Stop 12/18/18 at 06:59; Status DC Hydromorphone HCl (Dilaudid) 0.5 mg PRN Q10MIN PRN IV SEV PAIN, Second choice; Start 12/17/18 at 07:00; Stop 12/18/18 at 06:59; Status DC Lidocaine HCl (Xylocaine-Mpf 1% 2ml Vial) 2 ml PRN 1X PRN ID IV START; Start at 07:00; Stop 12/18/18 at 06:59; Status DC Ringer's Solution 1,000 ml @ 30 mls/hr Q24H IV Last administered on 12/17/18at 10:34; Start 12/17/18 at 07:00; Stop 12/17/18 at 18:59; Status DC Morphine Sulfate (Morphine Sulfate) 1 mg PRN Q10MIN PRN IV SEVERE PAIN; Start 12/17/18 at 07:00; Stop 12/18/18 at 06:59; Status DC Fentanyl Citrate (Fentanyl 2ml Vial) 50 mcg PRN Q5MIN PRN IV MODERATE TO SEVERE PAIN Last administered on 12/17/18at 11:13; Start 12/17/18 at 07:00; Stop at 06:59; Status DC Fentanyl Citrate (Fentanyl 2ml Vial) 25 mcg PRN Q5MIN PRN IV MILD PAIN; Start 12/17/18 at 07:00; Stop 12/18/18 at 06:59; Status DC Ondansetron HCl (Zofran) 4 mg PRN Q6HRS PRN IV NAUSEA/VOMITING; Start 12/17/18 at 07:00; Stop 12/18/18 at 06:59; Status DC Propofol 20 ml @ As Directed STK-MED ONCE IV ; Start 12/17/18 at 07:21; Stop 12/17 at 07:23; Status DC Albuterol Sulfate (Ventolin Neb Soln) 2.5 mg 1X ONCE NEB ; Start 12/17/18 at 07: 30; Stop 12/17/18 at 07:31; Status DC Lidocaine HCl (Lidocaine Pf 2% Vial) 5 ml STK-MED ONCE .ROUTE ; Start 12/17/18 at 07:21; Stop 12/17/18 at 07:23; Status DC Succinylcholine Chloride (Anectine) 200 mg STK-MED ONCE .ROUTE ; Start 12/17/18 at 07:21; Stop 12/17/18 at 07:23; Status DC Rocuronium Eunice (Zemuron) 50 mg STK-MED ONCE .ROUTE ; Start 12/17/18 at 07:21 ; Stop 12/17/18 at 07:23; Status DC Fentanyl Citrate (Fentanyl 2ml Vial) 100 mcg STK-MED ONCE .ROUTE ; Start at 07:21; Stop 12/17/18 at 07:24; Status DC Cefazolin Sodium/ Dextrose 50 ml @ 100 mls/hr 1X ONCE IV Last administered on 12/17/18at 08:07; Start 12/17/18 at 07:45; Stop 12/17/18 at 08:18; Status DC Bupivacaine HCl/ Epinephrine Bitart (Sensorcain-Mpf Epi 0.5%-[id number]) 30 ml STK -MED ONCE .ROUTE Last administered on 12/17/18at 08:34; Start 12/17/18 at 07:46; Stop 12/17/18 at 07:49; Status DC Neomycin/ Polymyxin/ Bacitracin (Triple Antibiotic Ointment) 1 pkt STK-MED ONCE TP Last administered on 12/17/18at 10:07; Start 12/17/18 at 07:46; Stop 12/17/18 at 07:49; Status DC Neomycin/ Polymyxin/ Bacitracin (Triple Antibiotic Ointment) 1 pkt STK-MED ONCE TP Last administered on 12/17/18at 10:07; Start 12/17/18 at 07:46; Stop 12/17/18 at 07:49; Status DC Neomycin/ Polymyxin/ Bacitracin (Triple Antibiotic Ointment) 1 pkt STK-MED ONCE TP ; Start 12/17/18 at 07:47; Stop 12/17/18 at 07:49; Status DC Dexamethasone Sodium Phosphate (Decadron) 20 mg STK-MED ONCE .ROUTE ; Start 12/17 at 07:54; Stop 12/17/18 at 07:56; Status DC Hydrocortisone Sodium Succinate (Solu-CORTEF) 100 mg STK-MED ONCE .ROUTE ; Start 12/17/18 at 07:54; Stop 12/17/18 at 07:56; Status DC Desflurane (Suprane) 90 ml STK-MED ONCE IH ; Start 12/17/18 at 07:54; Stop at 07:56; Status DC Neostigmine Methylsulfate (Bloxiverz) 10 mg STK-MED ONCE .ROUTE ; Start 12/17/18 at 08:21; Stop 12/17/18 at 08:24; Status DC Glycopyrrolate (Robinul) 1 mg STK-MED ONCE .ROUTE ; Start 12/17/18 at 08:21; Stop 12/17/18 at 08:24; Status DC Phenylephrine HCl (Bogdan-Synephrine Inj) 10 mg STK-MED ONCE .ROUTE ; Start at 08:23; Stop 12/17/18 at 08:26; Status DC Desflurane (Suprane) 60 ml STK-MED ONCE IH ; Start 12/17/18 at 09:23; Stop at 09:26; Status DC Bupivacaine HCl/ Epinephrine Bitart (Sensorcain-Mpf Epi 0.5%-1:[id number]) 30 ml STK -MED ONCE .ROUTE Last administered on 12/17/18 10:06; Start 12/17/18 at 09:41; Stop 12/17/18 at 09:43; Status DC Morphine Sulfate (Morphine Sulfate) 2 mg PRN Q2HR PRN IV PAIN Last administered on 12/25/18 09:26; Start 12/17/18 at 10:15 Ketorolac Tromethamine (Toradol 15mg Vial) 15 mg Q6HRS IV Last administered on 12/18/18 05:39; Start 12/17/18 at 12:00; Stop 12/18/18 at 10:00; Status DC Artificial Tears (Artificial Tears) 1 drop PRN Q15MIN PRN OU DRY EYE Last administered on 12/20/18 21:28; Start 12/18/18 at 08:00 Docusate Sodium (Colace) 100 mg DAILY PO Last administered on 12/22/18 10:29; Start 12/18/18 at 10:00 Throat Lozenges (Cepacol Sore Throat Lozenge) 1 kristyn PRN Q2HRS PRN PO SORE THROAT Last administered on 12/20/18 19:46; Start 12/18/18 at 14:00 Enoxaparin Sodium (Lovenox 40mg Syringe) 40 mg Q24H SQ Last administered on 12/25 09:25; Start 12/19/18 at 09:00 Ondansetron HCl (Zofran) 4 mg PRN Q6HRS PRN IV NAUSEA/VOMITING Last administered on 12/23/18 10:49; Start 12/19/18 at 11:30 Insulin Human Lispro (HumaLOG) 0-5 UNITS TIDWMEALS SQ ; Start 12/19/18 at 17:00 Dextrose (Dextrose 50%-Water Syringe) 12.5 gm PRN Q15MIN PRN IV SEE COMMENTS; Start 12/19/18 at 16:45 Levofloxacin/ Dextrose 100 ml @ 100 mls/hr 1X ONCE IV Last administered on 20:56; Start 12/19/18 at 21:00; Stop 12/19/18 at 21:59; Status DC Cefepime HCl (Maxipime) 2 gm Q12HR IVP Last administered on 12/25/18 09:25; Start 12/21/18 at 10:00 Sodium Chloride 1,000 ml @ 125 mls/hr 1X ONCE IV Last administered on 10:43; Start 12/21/18 at 09:45; Stop 12/21/18 at 17:44; Status DC Calcium Carbonate/ Glycine (Tums) 500 mg PRN AFTMEALHC PRN PO INDIGESTION Last administered on 12/21/18 13:10; Start 12/21/18 at 12:15 Lorazepam (Ativan) 1 mg 1X ONCE IV Last administered on 12/21/18 17:50; Start 12/21/18 at 17:30; Stop 12/21/18 at 17:31; Status DC Albuterol Sulfate (Ventolin Neb Soln) 2.5 mg PRN Q2HRS PRN NEB SHORTNESS OF BREATH; Start 12/21/18 at 17:30 Nicotine (Nicoderm Cq 14mg) 1 patch PRN DAILY PRN TD SMOKING CESSATION Last administered on 12/25/18 09:25; Start 12/21/18 at 19:30 Lorazepam (Ativan) 1 mg 1X ONCE IV Last administered on 12/21/18 23:45; Start 12/21/18 at 23:45; Stop 12/21/18 at 23:46; Status DC Lorazepam (Ativan) 1 mg PRN Q4HRS PRN IV ANXIETY / AGITATION Last administered on 12/22/18at 11:15; Start 12/21/18 at 23:30; Stop 12/22/18 at 14:42; Status DC Sodium Chloride 1,000 ml @ 250 mls/hr 1X ONCE IV Last administered on 09:15; Start 12/22/18 at 09:15; Stop 12/22/18 at 13:14; Status DC Lidocaine/Sodium Bicarbonate (Buffered Lidocaine 1%) 3 ml STK-MED ONCE .ROUTE ; Start 12/23/18 at 10:33; Stop 12/23/18 at 10:35; Status DC Lidocaine/Sodium Bicarbonate (Buffered Lidocaine 1%) 3 ml 1X ONCE INJ Last administered on 12/23/18at 11:24; Start 12/23/18 at 11:00; Stop 12/23/18 at 11:10; Status DC Info (Tpn Per Pharmacy) 1 each PRN DAILY PRN MC SEE COMMENTS Last administered on 12/24/18 12:17; Start 12/23/18 at 14:00 Sodium Chloride 90 meq/Potassium Chloride 50 meq/ Potassium Phosphate 20.4 mmol/ Magnesium Sulfate 18 meq/ Calcium Gluconate 5 meq/ Multivitamins 10 ml/Chromium / Copper/Manganese/ Seleni/Zn 1 ml/ Total Parenteral Nutrition/Amino Acids/ Dextrose/ Fat Emulsion Intravenous 1,512 ml @ 63 mls/hr TPN CONT IV Last administered on 12/23/18 21:37; Start 12/23/18 at 22:00; Stop 12/24/18 at 21:59; Status DC Alprazolam (Xanax) 0.25 mg PRN BID PRN PO ANXIETY / AGITATION Last administered on 12/25/18 09:25; Start 12/23/18 at 23:00 Lorazepam (Ativan) 1 mg PRN Q4HRS PRN IV ANXIETY / AGITATION Last administered on 12/24/18 09:21; Start 12/24/18 at 08:45; Stop 12/24/18 at 10:19; Status DC Pantoprazole Sodium (PROTONIX VIAL for IV PUSH) 40 mg DAILYAC IVP Last administered on 12/25/18at 05:45; Start 12/24/18 at 09:30 Lorazepam (Ativan) 0.5 mg PRN Q4HRS PRN IV ANXIETY / AGITATION Last administered on 12/25/18 04:47; Start 12/24/18 at 10:30; Stop 12/25/18 at 10:22; Status DC Sodium Chloride 45 meq/Sodium Acetate 45 meq/ Potassium Chloride 50 meq/ Potassium Phosphate 20.4 mmol/Magnesium Sulfate 18 meq/ Calcium Gluconate 5 meq / Multivitamins 10 ml/Chromium/ Copper/Manganese/ Seleni/Zn 1 ml/ Total Parenteral Nutrition/Amino Acids/Dextrose/ Fat Emuls... 1,512 ml @ 63 mls/hr TPN CONT IV Last administered on 12/24/18 21:57; Start 12/24/18 at 22:00; Stop 12/25/18 at 21:59 Phenyleph/Shark Oil/Min Oil/Petrol (Preparation H) 1 ranjith PRN Q4HRS PRN RC RECTAL PAIN; Start 12/24/18 at 12:45 Active Scripts Active Chlorhexidine Gluconate 473 Ml Mouthwash 473 Ml MM BID 7 Days Vitamin C (Ascorbate Calcium) 500 Mg Tablet 500 Mg PO DAILY 30 Days Slow Release Iron (Ferrous Sulfate) 250 Mg Tablet.er 250 Mg PO DAILY 30 Days Protonix (Pantoprazole Sodium) 40 Mg Granpkt.dr 40 Mg PO DAILY 30 Days Reported Alprazolam 0.25 Mg Tablet 0.25 Mg PO DAILY Metformin Hcl Er (Metformin Hcl) 500 Mg Tab.er.24h 1 Tab PO DAILY Namenda (Memantine Hcl) 10 Mg Tablet 1 Tab PO BID Losartan Potassium 100 Mg Tablet 100 Mg PO DAILY Spironolactone 25 Mg Tablet 1 Tab PO DAILY Ventolin Hfa Inhaler (Albuterol Sulfate) 18 Gm Hfa.aer.ad 2 Puff INH Q4HRS Cymbalta (Duloxetine Hcl) 20 Mg Capsule.dr 90 Mg PO DAILY Requip (Ropinirole Hcl) 1 Mg Tablet 3 Mg PO DAILY Amlodipine Besylate 10 Mg Tablet 10 Mg PO DAILY Vitals/I & O Vital Sign - Last 24 Hours 12/24/18 12/24/18 12/24/18 12/24/18 11:00 11:15 14:47 15:00 Temp 98.1 97.9 98.1 97.9 Pulse 96 98 Resp 18 22 B/P (MAP) 141/93 (109) 128/83 (98) Pulse Ox 98 98 94 O2 Delivery Nasal Cannula Nasal Cannula Nasal Cannula Room Air O2 Flow Rate 5.0 4.0 4.0 12/24/18 12/24/18 12/24/18 12/24/18 15:07 19:00 19:03 19:32 Temp 98.4 98.4 Pulse 98 Resp 18 B/P (MAP) 136/84 (101) Pulse Ox 98 O2 Delivery Nasal Cannula Nasal Cannula Nasal Cannula Nasal Cannula O2 Flow Rate 3.0 3.0 4.0 3.0 12/24/18 12/24/18 12/24/18 12/25/18 20:00 22:36 23:00 02:04 Temp 98.2 98.2 Pulse 88 Resp 18 B/P (MAP) 142/86 (104) Pulse Ox 96 96 O2 Delivery Nasal Cannula Nasal Cannula Nasal Cannula Nasal Cannula O2 Flow Rate 3.0 3.0 3.0 3.0 12/25/18 12/25/18 12/25/18 12/25/18 02:28 02:34 03:00 07:00 Temp 97.8 97.5 97.8 97.5 Pulse 77 98 Resp 22 18 18 B/P (MAP) 135/83 (100) 139/90 (106) Pulse Ox 94 94 97 O2 Delivery Nasal Cannula Nasal Cannula Room Air Nasal Cannula O2 Flow Rate 3.0 3.0 3.0 3.0 12/25/18 12/25/18 12/25/18 07:37 09:26 09:36 Pulse 98 B/P (MAP) 139/90 Pulse Ox 96 O2 Delivery Nasal Cannula Nasal Cannula O2 Flow Rate 2.0 3.0 Intake and Output 12/24/18 12/24/18 12/25/18 15:01 23:01 07:01 Intake Total 30 ml Output Total 300 ml Balance -300 ml 30 ml ELIZABETH BUTCHER MD Dec 25, 2018 10:27
[2018-12-25 10:45] LABS: BASE EXCESS ABG 0 mmol/L (-3-3); HCO3 ABG 24 mmol/L (21-28); PCO2 ABG 35 mmHg (35-46); PO2 ABG 66 mmHg (65-108); SAT O2 ABG 93 % (92-99)
[2018-12-25 11:00] VITALS: BP 132/81
[2018-12-25] MEDS: TPN PER PHARMACY MC PRN (11:00)
--- NOTE | 2018-12-25 11:01 | NUR ---
Pharmacy TPN Dosing Note S: ELLE LATHAM is a 72 year old F Currently receiving Central Continuous TPN started 12/23/18 B:Pertinent PMH: SBO Current diet: npo LABS: Sodium: 145 Potassium: 4.3 Chloride: 111 Calcium: 9.5 Corrected Calcium: 10.70 Magnesium: 2.3 CO2: 26 SCr: 0.8 Glucose: 152 Albumin: 2.5 AST: 12 ALT: 12 TPN FORMULA: TPN TYPE: Central Continuous AMINO ACIDS: 60 gm DEXTROSE: 195 gm LIPIDS: 20 gm SODIUM CHLORIDE: 45 mEq SODIUM ACETATE: 45 mEq SODIUM PHOSPHATE: - mmol POTASSIUM CHLORIDE: 50 mEq POTASSIUM ACETATE: - mEq POTASSIUM PHOSPHATE: 20.4 mmol MAGNESIUM: 18 mEq CALCIUM: 5 mEq INSULIN: - units MULTIPLE VITAMIN: 10 ml TRACE ELEMENTS: mte5 1 ml ml(s) TPN PLAN: 12/25 CONT SAME TPN R: Continue TPN Will monitor electrolytes, glucose, and tolerance to TPN. MANSI DIA [facility], 12/25/18 1527
--- NOTE | 2018-12-25 11:18 | PDOC ---
PULMONARY PROGRESS NOTES Subjective sleepy, received MS Vitals Vital Signs Date Time Temp Pulse Resp B/P (MAP) Pulse Ox O2 Delivery O2 Flow Rate FiO2 12/25/18 10:27 Nasal Cannula 3.0 12/25/18 09:36 98 139/90 12/25/18 07:37 96 12/25/18 07:00 97.5 18 97.5 General: Lethargic Lungs: Clear Cardiovascular: S1 Abdomen: Soft, Other (distended) Extremities: No Edema Skin: Warm Labs Laboratory Tests Test 12/23/18 11:38 12/23/18 13:40 12/23/18 17:00 12/23/18 17:40 Glucose (Fingerstick) 112 mg/dL (70-99) 100 mg/dL (70-99) White Blood Count 6.1 x10^3/uL (4.0-11.0) Red Blood Count 3.29 x10^6/uL (3.50-5.40) Hemoglobin 8.0 g/dL (12.0-15.5) Hematocrit 25.7 % (36.0-47.0) Mean Corpuscular Volume 78 fL (79-100) Mean Corpuscular Hemoglobin 24 pg (25-35) Mean Corpuscular Hemoglobin Concent 31 g/dL (31-37) Red Cell Distribution Width 23.6 % (11.5-14.5) Platelet Count 235 x10^3/uL (140-400) Procalcitonin 0.15 ng/mL (0.00-0.10) Urine Color Yellow Urine Clarity Clear Urine pH 6.0 Urine Specific [place] 1.025 Urine Protein Negative mg/dL (NEG-TRACE) Urine Glucose (UA) Negative mg/dL (NEG) Urine Ketones (Stick) 15 mg/dL (NEG) Urine Blood Negative (NEG) Urine Nitrite Negative (NEG) Urine Bilirubin Negative (NEG) Urine Urobilinogen Dipstick 0.2 mg/dL (0.2 mg/dL) Urine Leukocyte Esterase Negative (NEG) Urine RBC 0 /HPF (0-2) Urine WBC Occ /HPF (0-4) Urine Squamous Epithelial Cells Occ /LPF Urine Bacteria 0 /HPF (0-FEW) Urine Hyaline Casts Occasional /HPF Urine Mucus Mod /LPF Test 12/23/18 20:59 12/24/18 05:00 12/24/18 08:02 12/24/18 10:57 Glucose (Fingerstick) 98 mg/dL (70-99) 169 mg/dL (70-99) 177 mg/dL (70-99) White Blood Count 6.6 x10^3/uL (4.0-11.0) Red Blood Count 3.26 x10^6/uL (3.50-5.40) Hemoglobin 8.0 g/dL (12.0-15.5) Hematocrit 25.6 % (36.0-47.0) Mean Corpuscular Volume 79 fL (79-100) Mean Corpuscular Hemoglobin 25 pg (25-35) Mean Corpuscular Hemoglobin Concent 31 g/dL (31-37) Red Cell Distribution Width 23.5 % (11.5-14.5) Platelet Count 240 x10^3/uL (140-400) Sodium Level 145 mmol/L (136-145) Potassium Level 4.0 mmol/L (3.5-5.1) Chloride Level 109 mmol/L (98-107) Carbon Dioxide Level 25 mmol/L (21-32) Anion Gap 11 (6-14) Blood Urea Nitrogen 34 mg/dL (7-20) Creatinine 0.8 mg/dL (0.6-1.0) Estimated GFR (Cockcroft-Gault) 84.6 Glucose Level 155 mg/dL (70-99) Calcium Level 9.3 mg/dL (8.5-10.1) Phosphorus Level 3.0 mg/dL (2.6-4.7) Magnesium Level 2.2 mg/dL (1.8-2.4) Triglycerides Level 107 mg/dL (0-150) Test 12/24/18 17:21 12/24/18 20:07 12/25/18 05:45 12/25/18 07:20 Glucose (Fingerstick) 165 mg/dL (70-99) 166 mg/dL (70-99) 152 mg/dL (70-99) Sodium Level 145 mmol/L (136-145) Potassium Level 4.3 mmol/L (3.5-5.1) Chloride Level 111 mmol/L (98-107) Carbon Dioxide Level 26 mmol/L (21-32) Anion Gap 8 (6-14) Blood Urea Nitrogen 29 mg/dL (7-20) Creatinine 0.8 mg/dL (0.6-1.0) Estimated GFR (Cockcroft-Gault) 84.6 Glucose Level 171 mg/dL (70-99) Calcium Level 9.5 mg/dL (8.5-10.1) Phosphorus Level 3.2 mg/dL (2.6-4.7) Magnesium Level 2.3 mg/dL (1.8-2.4) Test 12/25/18 10:30 O2 Saturation 93 % (92-99) Arterial Blood pH 7.46 (7.35-7.45) Arterial Blood pCO2 at Patient Temp 35 mmHg (35-46) Arterial Blood pO2 at Patient Temp 66 mmHg (65-108) Arterial Blood HCO3 24 mmol/L (21-28) Arterial Blood Base Excess 0 mmol/L (-3-3) FiO2 2 lpm nc Laboratory Tests Test 12/24/18 17:21 12/24/18 20:07 12/25/18 05:45 12/25/18 07:20 Glucose (Fingerstick) 165 mg/dL (70-99) 166 mg/dL (70-99) 152 mg/dL (70-99) Sodium Level 145 mmol/L (136-145) Potassium Level 4.3 mmol/L (3.5-5.1) Chloride Level 111 mmol/L (98-107) Carbon Dioxide Level 26 mmol/L (21-32) Anion Gap 8 (6-14) Blood Urea Nitrogen 29 mg/dL (7-20) Creatinine 0.8 mg/dL (0.6-1.0) Estimated GFR (Cockcroft-Gault) 84.6 Glucose Level 171 mg/dL (70-99) Calcium Level 9.5 mg/dL (8.5-10.1) Phosphorus Level 3.2 mg/dL (2.6-4.7) Magnesium Level 2.3 mg/dL (1.8-2.4) Test 12/25/18 10:30 O2 Saturation 93 % (92-99) Arterial Blood pH 7.46 (7.35-7.45) Arterial Blood pCO2 at Patient Temp 35 mmHg (35-46) Arterial Blood pO2 at Patient Temp 66 mmHg (65-108) Arterial Blood HCO3 24 mmol/L (21-28) Arterial Blood Base Excess 0 mmol/L (-3-3) FiO2 2 lpm nc Medications Active Scripts Medications Dose Route/Sig Max Daily Dose Days Date Category Chlorhexidine Gluconate 473 Ml Mouthwash 473 Ml MM BID 7 12/10/18 Rx Vitamin C (Ascorbate Calcium) 500 Mg Tablet 500 Mg PO DAILY 30 11/22/18 Rx Slow Release Iron (Ferrous Sulfate) 250 Mg Tablet.er 250 Mg PO DAILY 30 11/22/18 Rx Protonix (Pantoprazole Sodium) 40 Mg Granpkt.dr 40 Mg PO DAILY 30 11/22/18 Rx Metformin Hcl Er (Metformin Hcl) 500 Mg Tab.er.24h 1 Tab PO DAILY 11/12/16 Reported Namenda (Memantine Hcl) 10 Mg Tablet 1 Tab PO BID 11/12/16 Reported Losartan Potassium 100 Mg Tablet 100 Mg PO DAILY 11/12/16 Reported Spironolactone 25 Mg Tablet 1 Tab PO DAILY 11/12/16 Reported Ventolin Hfa Inhaler (Albuterol Sulfate) 18 Gm Hfa.aer.ad 2 Puff INH Q4HRS 11/11/16 Reported Cymbalta (Duloxetine Hcl) 20 Mg Capsule.dr 90 Mg PO DAILY 01/27/16 Reported Requip (Ropinirole Hcl) 1 Mg Tablet 3 Mg PO DAILY 01/27/16 Reported Amlodipine Besylate 10 Mg Tablet 10 Mg PO DAILY 01/27/16 Reported Impression . 1. Acute hypoxic respiratory failure secondary to underlying chronic obstructive pulmonary disease and increasing abdominal distention related to postop ileus. 2. Gastrointestinal bleed/cecal ulceration by colonoscopy, status post laparoscopic-assisted right colon resection and hemorrhoidectomy. 3. Postoperative ileus. 4. Underlying chronic obstructive pulmonary disease. 5. Abnormal CT chest with focal opacity in the right upper lobe, could be nodule. Needs to have a followup in 4-6 months. She also has bibasilar atelectasis, caused by abdominal distention. Clinically, less likely pneumonia. Plan . 1. Continue with present oxygen. ABG 12/25 reviewed.no sig hypercapnia 2. Continue bronchodilators. 3. DVT prophylaxis. 4. Antibiotics. 5. Bowel decompression per Surgery and GI. 6. ABGs are adequate, we will watch respiratory status closely. 7. p.r.n. BiPAP if needed. 8. Discussed with RN/ son. Minimize narcotic dose JEF CARLIN MD Dec 25, 2018 11:18
--- NOTE | 2018-12-25 12:29 | PDOC ---
PROGRESS NOTES Chief Complaint Chief Complaint Patient somewhat confused today. She is having some respiratory distress family member at bedside reassurance has been provided. Plan of care strain detail unable to have a meaningful conversation today. NG tube has been removed and abdominal distention has resolved. TPN ongoing will continue to follow respiratory status and results of blood gases History of Present Illness History of Present Illness Assessment/Plan 1. Acute hypoxic respiratory failure secondary to underlying chronic obstructive pulmonary disease and increasing abdominal distention related to ileus: continue supplemental 02. decompress bowel with NG tube to suction.. NPO for now. GI and Gen sx following. NPO status. PICC in place with TPN. 2. S/p right colon resection and hemorrhoidectomy secondary to bleeding cecal ulcer, path negative for malignancy . 3. Underlying COPD. bronchodilator therapy 4. VISHNU, resolving 5. Sepsis/Leukopenia. started cefepime. check cultures. apprec ID - unclear if there is actually a pneumonia, mostly atelectatic lungs 6. Gi bleed acute ,Questionable GI bleed with anemia marked anemia POA. hb stable Colonoscopy in 11/2017 showed diverticulosis, EGD 11/2018 showed non-erosive gastritis Operative Note Date: 12/17/2018 Preoperative diagnosis: GI bleed cecal ulceration by colonoscopy with active bleeding hemorrhoids Postoperative diagnosis: Same Procedure: Laparoscopic-assisted right colon resection and hemorrhoidectomy Surgeon: Jan Specimen: Right colon and hemorrhoids Vitals Vitals Vital Signs Date Time Temp Pulse Resp B/P (MAP) Pulse Ox O2 Delivery O2 Flow Rate FiO2 12/25/18 11:17 98 Nasal Cannula 3.0 12/25/18 09:36 98 139/90 12/25/18 07:00 97.5 18 97.5 Physical Exam Physical Exam GENERAL: Alert, oriented female, not in distress. VITAL SIGNS: Stable. tachypneic HEENT: NAD. NECK: Supple, no JVP, no lymphadenopathy. LUNGS: Clear. HEART: S1, S2 regular. ABDOMEN: Benign. The patient's incisions are well approximated without any signs of infection. There is no tenderness, rebound or guarding. No organomegaly. EXTREMITIES: No edema or cyanosis. SKIN: Unremarkable. NEUROLOGIC: The patient is neurologically intact. General: Alert, Oriented X3, Cooperative, mild distress Heart: Regular rate, Normal S1, Normal S2, No murmurs Lungs: Clear Abdomen: Soft Extremities: No clubbing, No cyanosis, No edema Skin: No significant lesion Labs LABS Laboratory Tests Test 12/24/18 17:21 12/24/18 20:07 12/25/18 05:45 12/25/18 07:20 Glucose (Fingerstick) 165 mg/dL (70-99) 166 mg/dL (70-99) 152 mg/dL (70-99) Sodium Level 145 mmol/L (136-145) Potassium Level 4.3 mmol/L (3.5-5.1) Chloride Level 111 mmol/L (98-107) Carbon Dioxide Level 26 mmol/L (21-32) Anion Gap 8 (6-14) Blood Urea Nitrogen 29 mg/dL (7-20) Creatinine 0.8 mg/dL (0.6-1.0) Estimated GFR (Cockcroft-Gault) 84.6 Glucose Level 171 mg/dL (70-99) Calcium Level 9.5 mg/dL (8.5-10.1) Phosphorus Level 3.2 mg/dL (2.6-4.7) Magnesium Level 2.3 mg/dL (1.8-2.4) Test 12/25/18 10:30 12/25/18 11:15 12/25/18 11:36 O2 Saturation 93 % (92-99) Arterial Blood pH 7.46 (7.35-7.45) Arterial Blood pCO2 at Patient Temp 35 mmHg (35-46) Arterial Blood pO2 at Patient Temp 66 mmHg (65-108) Arterial Blood HCO3 24 mmol/L (21-28) Arterial Blood Base Excess 0 mmol/L (-3-3) FiO2 2 lpm nc Lactic Acid Level 0.9 mmol/L (0.4-2.0) Glucose (Fingerstick) 152 mg/dL (70-99) Comment Review of Relevant I have reviewed the following items abdifatah (where applicable) has been applied. Labs Laboratory Tests Test 12/23/18 13:40 12/23/18 17:00 12/23/18 17:40 12/23/18 20:59 White Blood Count 6.1 x10^3/uL (4.0-11.0) Red Blood Count 3.29 x10^6/uL (3.50-5.40) Hemoglobin 8.0 g/dL (12.0-15.5) Hematocrit 25.7 % (36.0-47.0) Mean Corpuscular Volume 78 fL (79-100) Mean Corpuscular Hemoglobin 24 pg (25-35) Mean Corpuscular Hemoglobin Concent 31 g/dL (31-37) Red Cell Distribution Width 23.6 % (11.5-14.5) Platelet Count 235 x10^3/uL (140-400) Procalcitonin 0.15 ng/mL (0.00-0.10) Glucose (Fingerstick) 100 mg/dL (70-99) 98 mg/dL (70-99) Urine Color Yellow Urine Clarity Clear Urine pH 6.0 Urine Specific [place] 1.025 Urine Protein Negative mg/dL (NEG-TRACE) Urine Glucose (UA) Negative mg/dL (NEG) Urine Ketones (Stick) 15 mg/dL (NEG) Urine Blood Negative (NEG) Urine Nitrite Negative (NEG) Urine Bilirubin Negative (NEG) Urine Urobilinogen Dipstick 0.2 mg/dL (0.2 mg/dL) Urine Leukocyte Esterase Negative (NEG) Urine RBC 0 /HPF (0-2) Urine WBC Occ /HPF (0-4) Urine Squamous Epithelial Cells Occ /LPF Urine Bacteria 0 /HPF (0-FEW) Urine Hyaline Casts Occasional /HPF Urine Mucus Mod /LPF Test 12/24/18 05:00 12/24/18 08:02 12/24/18 10:57 12/24/18 17:21 White Blood Count 6.6 x10^3/uL (4.0-11.0) Red Blood Count 3.26 x10^6/uL (3.50-5.40) Hemoglobin 8.0 g/dL (12.0-15.5) Hematocrit 25.6 % (36.0-47.0) Mean Corpuscular Volume 79 fL (79-100) Mean Corpuscular Hemoglobin 25 pg (25-35) Mean Corpuscular Hemoglobin Concent 31 g/dL (31-37) Red Cell Distribution Width 23.5 % (11.5-14.5) Platelet Count 240 x10^3/uL (140-400) Sodium Level 145 mmol/L (136-145) Potassium Level 4.0 mmol/L (3.5-5.1) Chloride Level 109 mmol/L (98-107) Carbon Dioxide Level 25 mmol/L (21-32) Anion Gap 11 (6-14) Blood Urea Nitrogen 34 mg/dL (7-20) Creatinine 0.8 mg/dL (0.6-1.0) Estimated GFR (Cockcroft-Gault) 84.6 Glucose Level 155 mg/dL (70-99) Calcium Level 9.3 mg/dL (8.5-10.1) Phosphorus Level 3.0 mg/dL (2.6-4.7) Magnesium Level 2.2 mg/dL (1.8-2.4) Triglycerides Level 107 mg/dL (0-150) Glucose (Fingerstick) 169 mg/dL (70-99) 177 mg/dL (70-99) 165 mg/dL (70-99) Test 12/24/18 20:07 12/25/18 05:45 12/25/18 07:20 12/25/18 10:30 Glucose (Fingerstick) 166 mg/dL (70-99) 152 mg/dL (70-99) Sodium Level 145 mmol/L (136-145) Potassium Level 4.3 mmol/L (3.5-5.1) Chloride Level 111 mmol/L (98-107) Carbon Dioxide Level 26 mmol/L (21-32) Anion Gap 8 (6-14) Blood Urea Nitrogen 29 mg/dL (7-20) Creatinine 0.8 mg/dL (0.6-1.0) Estimated GFR (Cockcroft-Gault) 84.6 Glucose Level 171 mg/dL (70-99) Calcium Level 9.5 mg/dL (8.5-10.1) Phosphorus Level 3.2 mg/dL (2.6-4.7) Magnesium Level 2.3 mg/dL (1.8-2.4) O2 Saturation 93 % (92-99) Arterial Blood pH 7.46 (7.35-7.45) Arterial Blood pCO2 at Patient Temp 35 mmHg (35-46) Arterial Blood pO2 at Patient Temp 66 mmHg (65-108) Arterial Blood HCO3 24 mmol/L (21-28) Arterial Blood Base Excess 0 mmol/L (-3-3) FiO2 2 lpm nc Test 12/25/18 11:15 12/25/18 11:36 Lactic Acid Level 0.9 mmol/L (0.4-2.0) Glucose (Fingerstick) 152 mg/dL (70-99) Laboratory Tests Test 12/24/18 17:21 12/24/18 20:07 12/25/18 05:45 12/25/18 07:20 Glucose (Fingerstick) 165 mg/dL (70-99) 166 mg/dL (70-99) 152 mg/dL (70-99) Sodium Level 145 mmol/L (136-145) Potassium Level 4.3 mmol/L (3.5-5.1) Chloride Level 111 mmol/L (98-107) Carbon Dioxide Level 26 mmol/L (21-32) Anion Gap 8 (6-14) Blood Urea Nitrogen 29 mg/dL (7-20) Creatinine 0.8 mg/dL (0.6-1.0) Estimated GFR (Cockcroft-Gault) 84.6 Glucose Level 171 mg/dL (70-99) Calcium Level 9.5 mg/dL (8.5-10.1) Phosphorus Level 3.2 mg/dL (2.6-4.7) Magnesium Level 2.3 mg/dL (1.8-2.4) Test 12/25/18 10:30 12/25/18 11:15 12/25/18 11:36 O2 Saturation 93 % (92-99) Arterial Blood pH 7.46 (7.35-7.45) Arterial Blood pCO2 at Patient Temp 35 mmHg (35-46) Arterial Blood pO2 at Patient Temp 66 mmHg (65-108) Arterial Blood HCO3 24 mmol/L (21-28) Arterial Blood Base Excess 0 mmol/L (-3-3) FiO2 2 lpm nc Lactic Acid Level 0.9 mmol/L (0.4-2.0) Glucose (Fingerstick) 152 mg/dL (70-99) Microbiology 12/21/18 Blood Culture - Preliminary, Resulted NO GROWTH AFTER 4 DAYS Medications Current Medications Sodium Chloride 1,000 ml @ 1,000 mls/hr 1X ONCE IV Last administered on at 13:52; Start 12/14/18 at 13:30; Stop 12/14/18 at 14:29; Status DC Amlodipine Besylate (Norvasc) 10 mg DAILY PO Last administered on 12/25/18at 09: 36; Start 12/14/18 at 17:00 Chlorhexidine Gluconate (Peridex) 15 ml BID MM Last administered on 12/25/18 09 :25; Start 12/14/18 at 21:00 Non-Formulary Medication (Albuterol Sulfate (Ventolin Hfa Inhaler)) 2 puff Q4HRS INH ; Start 12/14/18 at 20:00; Status UNV Ascorbic Acid (Vitamin C) 500 mg DAILY PO Last administered on 12/22/18 10:30; Start 12/14/18 at 17:00 Duloxetine HCl (Cymbalta) 90 mg DAILY PO Last administered on 12/22/18 10:30; Start 12/14/18 at 17:00 Ferrous Sulfate (Feosol) 325 mg DAILYWBKFT PO Last administered on 12/22/18 10: 30; Start 12/14/18 at 17:00 Losartan Potassium (Cozaar) 100 mg DAILY PO Last administered on 12/22/18 10:29 ; Start 12/14/18 at 17:00 Memantine (Namenda) 10 mg BID PO Last administered on 12/24/18 20:12; Start at 21:00 Pantoprazole Sodium (Protonix) 40 mg DAILYAC PO Last administered on 12/22/18 05:28; Start 12/14/18 at 17:00; Stop 12/24/18 at 09:25; Status DC Ropinirole HCl (Requip) 3 mg QHS PO Last administered on 12/24/18 20:12; Start 12/14/18 at 21:00 Spironolactone (Aldactone) 25 mg DAILY PO Last administered on 12/22/18 10:29; Start 12/14/18 at 17:00 Albuterol Sulfate (Ventolin Neb Soln) 2.5 mg Q4HRS NEB Last administered on 12/25 11:12; Start 12/14/18 at 20:00 Sodium Chloride 1,000 ml @ 80 mls/hr [id number] IV Last administered on 12/23/18 15:25; Start 12/14/18 at 17:15; Stop 12/23/18 at 21:59; Status DC Acetaminophen (Tylenol) 650 mg PRN Q6HRS PRN PO Pain Last administered on 2/4/ 19at 21:27; Start 12/15/18 at 04:45 Polyethylene Glycol (miraLAX Powder BULK BOTTLE) 238 gm 1X ONCE PO Last administered on 12/15/18at 12:48; Start 12/15/18 at 12:00; Stop 12/15/18 at 12:01 ; Status DC Ondansetron HCl (Zofran) 4 mg PRN Q6HRS PRN IV NAUSEA/VOMITING; Start 12/16/18 at 07:00; Stop 12/17/18 at 06:59; Status DC Fentanyl Citrate (Fentanyl 2ml Vial) 25 mcg PRN Q5MIN PRN IV MILD PAIN; Start 12/16/18 at 07:00; Stop 12/16/18 at 16:33; Status DC Fentanyl Citrate (Fentanyl 2ml Vial) 50 mcg PRN Q5MIN PRN IV MODERATE TO SEVERE PAIN; Start 12/16/18 at 07:00; Stop 12/16/18 at 16:33; Status DC Morphine Sulfate (Morphine Sulfate) 1 mg PRN Q10MIN PRN IV SEVERE PAIN; Start 12/16/18 at 07:00; Stop 12/17/18 at 06:59; Status DC Ringer's Solution 1,000 ml @ 30 mls/hr Q24H IV Last administered on 12/16/18at 13:00; Start 12/16/18 at 07:00; Stop 12/16/18 at 18:59; Status DC Lidocaine HCl (Xylocaine-Mpf 1% 2ml Vial) 2 ml PRN 1X PRN ID IV START; Start at 07:00; Stop 12/17/18 at 06:59; Status DC Hydromorphone HCl (Dilaudid) 0.5 mg PRN Q10MIN PRN IV SEV PAIN, Second choice; Start 12/16/18 at 07:00; Stop 12/17/18 at 06:59; Status DC Prochlorperazine Edisylate (Compazine) 5 mg PACU PRN PRN IV NAUSEA, MRX1; Start 12/16/18 at 07:00; Stop 12/17/18 at 06:59; Status DC Midazolam HCl (Versed) 2 mg PRN 1X PRN IV PRIOR TO PROCEDURE; Start 12/16/18 at 07:15; Stop 12/17/18 at 07:14; Status DC Fentanyl Citrate (Fentanyl 2ml Vial) 25 mcg PRN Q5MIN PRN IV X 2 DOSES FOR PAIN ; Start 12/16/18 at 07:15; Stop 12/16/18 at 16:33; Status DC Fentanyl Citrate (Fentanyl 2ml Vial) 50 mcg PRN Q5MIN PRN IV X 2 DOSES FOR PAIN ; Start 12/16/18 at 07:15; Stop 12/16/18 at 16:34; Status DC Ringer's Solution 1,000 ml @ 125 mls/hr Q8H IV ; Start 12/16/18 at 07:13; Stop 12/16/18 at 19:12; Status DC Lidocaine HCl (Xylocaine-Mpf 1% 2ml Vial) 2 ml 1X PRN PRN ID IV START; Start at 07:15; Stop 12/17/18 at 07:14; Status DC Propofol 40 ml @ As Directed STK-MED ONCE IV ; Start 12/16/18 at 13:58; Stop at 14:00; Status DC Prochlorperazine Edisylate (Compazine) 5 mg PACU PRN PRN IV NAUSEA, MRX1; Start 12/17/18 at 07:00; Stop 12/18/18 at 06:59; Status DC Hydromorphone HCl (Dilaudid) 0.5 mg PRN Q10MIN PRN IV SEV PAIN, Second choice; Start 12/17/18 at 07:00; Stop 12/18/18 at 06:59; Status DC Lidocaine HCl (Xylocaine-Mpf 1% 2ml Vial) 2 ml PRN 1X PRN ID IV START; Start at 07:00; Stop 12/18/18 at 06:59; Status DC Ringer's Solution 1,000 ml @ 30 mls/hr Q24H IV Last administered on 12/17/18at 10:34; Start 12/17/18 at 07:00; Stop 12/17/18 at 18:59; Status DC Morphine Sulfate (Morphine Sulfate) 1 mg PRN Q10MIN PRN IV SEVERE PAIN; Start 12/17/18 at 07:00; Stop 12/18/18 at 06:59; Status DC Fentanyl Citrate (Fentanyl 2ml Vial) 50 mcg PRN Q5MIN PRN IV MODERATE TO SEVERE PAIN Last administered on 12/17/18at 11:13; Start 12/17/18 at 07:00; Stop at 06:59; Status DC Fentanyl Citrate (Fentanyl 2ml Vial) 25 mcg PRN Q5MIN PRN IV MILD PAIN; Start 12/17/18 at 07:00; Stop 12/18/18 at 06:59; Status DC Ondansetron HCl (Zofran) 4 mg PRN Q6HRS PRN IV NAUSEA/VOMITING; Start 12/17/18 at 07:00; Stop 12/18/18 at 06:59; Status DC Propofol 20 ml @ As Directed STK-MED ONCE IV ; Start 12/17/18 at 07:21; Stop 12/17 at 07:23; Status DC Albuterol Sulfate (Ventolin Neb Soln) 2.5 mg 1X ONCE NEB ; Start 12/17/18 at 07: 30; Stop 12/17/18 at 07:31; Status DC Lidocaine HCl (Lidocaine Pf 2% Vial) 5 ml STK-MED ONCE .ROUTE ; Start 12/17/18 at 07:21; Stop 12/17/18 at 07:23; Status DC Succinylcholine Chloride (Anectine) 200 mg STK-MED ONCE .ROUTE ; Start 12/17/18 at 07:21; Stop 12/17/18 at 07:23; Status DC Rocuronium [place] (Zemuron) 50 mg STK-MED ONCE .ROUTE ; Start 12/17/18 at 07:21 ; Stop 12/17/18 at 07:23; Status DC Fentanyl Citrate (Fentanyl 2ml Vial) 100 mcg STK-MED ONCE .ROUTE ; Start at 07:21; Stop 12/17/18 at 07:24; Status DC Cefazolin Sodium/ Dextrose 50 ml @ 100 mls/hr 1X ONCE IV Last administered on 12/17/18at 08:07; Start 12/17/18 at 07:45; Stop 12/17/18 at 08:18; Status DC Bupivacaine HCl/ Epinephrine Bitart (Sensorcain-Mpf Epi 0.5%-1:[id number]) 30 ml STK -MED ONCE .ROUTE Last administered on 12/17/18at 08:34; Start 12/17/18 at 07:46; Stop 12/17/18 at 07:49; Status DC Neomycin/ Polymyxin/ Bacitracin (Triple Antibiotic Ointment) 1 pkt STK-MED ONCE TP Last administered on 12/17/18at 10:07; Start 12/17/18 at 07:46; Stop 12/17/18 at 07:49; Status DC Neomycin/ Polymyxin/ Bacitracin (Triple Antibiotic Ointment) 1 pkt STK-MED ONCE TP Last administered on 12/17/18at 10:07; Start 12/17/18 at 07:46; Stop 12/17/18 at 07:49; Status DC Neomycin/ Polymyxin/ Bacitracin (Triple Antibiotic Ointment) 1 pkt STK-MED ONCE TP ; Start 12/17/18 at 07:47; Stop 12/17/18 at 07:49; Status DC Dexamethasone Sodium Phosphate (Decadron) 20 mg STK-MED ONCE .ROUTE ; Start 12/17 at 07:54; Stop 12/17/18 at 07:56; Status DC Hydrocortisone Sodium Succinate (Solu-CORTEF) 100 mg STK-MED ONCE .ROUTE ; Start 12/17/18 at 07:54; Stop 12/17/18 at 07:56; Status DC Desflurane (Suprane) 90 ml STK-MED ONCE IH ; Start 12/17/18 at 07:54; Stop at 07:56; Status DC Neostigmine Methylsulfate (Bloxiverz) 10 mg STK-MED ONCE .ROUTE ; Start 12/17/18 at 08:21; Stop 12/17/18 at 08:24; Status DC Glycopyrrolate (Robinul) 1 mg STK-MED ONCE .ROUTE ; Start 12/17/18 at 08:21; Stop 12/17/18 at 08:24; Status DC Phenylephrine HCl (Bogdan-Synephrine Inj) 10 mg STK-MED ONCE .ROUTE ; Start at 08:23; Stop 12/17/18 at 08:26; Status DC Desflurane (Suprane) 60 ml STK-MED ONCE IH ; Start 12/17/18 at 09:23; Stop at 09:26; Status DC Bupivacaine HCl/ Epinephrine Bitart (Sensorcain-Mpf Epi 0.5%-1:[id number]) 30 ml STK -MED ONCE .ROUTE Last administered on 12/17/18 10:06; Start 12/17/18 at 09:41; Stop 12/17/18 at 09:43; Status DC Morphine Sulfate (Morphine Sulfate) 2 mg PRN Q2HR PRN IV PAIN Last administered on 12/25/18 09:26; Start 12/17/18 at 10:15 Ketorolac Tromethamine (Toradol 15mg Vial) 15 mg Q6HRS IV Last administered on 12/18/18 05:39; Start 12/17/18 at 12:00; Stop 12/18/18 at 10:00; Status DC Artificial Tears (Artificial Tears) 1 drop PRN Q15MIN PRN OU DRY EYE Last administered on 12/20/18 21:28; Start 12/18/18 at 08:00 Docusate Sodium (Colace) 100 mg DAILY PO Last administered on 12/22/18 10:29; Start 12/18/18 at 10:00 Throat Lozenges (Cepacol Sore Throat Lozenge) 1 kristyn PRN Q2HRS PRN PO SORE THROAT Last administered on 12/20/18 19:46; Start 12/18/18 at 14:00 Enoxaparin Sodium (Lovenox 40mg Syringe) 40 mg Q24H SQ Last administered on 12/25 09:25; Start 12/19/18 at 09:00 Ondansetron HCl (Zofran) 4 mg PRN Q6HRS PRN IV NAUSEA/VOMITING Last administered on 12/23/18 10:49; Start 12/19/18 at 11:30 Insulin Human Lispro (HumaLOG) 0-5 UNITS TIDWMEALS SQ ; Start 12/19/18 at 17:00 Dextrose (Dextrose 50%-Water Syringe) 12.5 gm PRN Q15MIN PRN IV SEE COMMENTS; Start 12/19/18 at 16:45 Levofloxacin/ Dextrose 100 ml @ 100 mls/hr 1X ONCE IV Last administered on 20:56; Start 12/19/18 at 21:00; Stop 12/19/18 at 21:59; Status DC Cefepime HCl (Maxipime) 2 gm Q12HR IVP Last administered on 12/25/18 09:25; Start 12/21/18 at 10:00 Sodium Chloride 1,000 ml @ 125 mls/hr 1X ONCE IV Last administered on 10:43; Start 12/21/18 at 09:45; Stop 12/21/18 at 17:44; Status DC Calcium Carbonate/ Glycine (Tums) 500 mg PRN AFTMEALHC PRN PO INDIGESTION Last administered on 12/21/18 13:10; Start 12/21/18 at 12:15 Lorazepam (Ativan) 1 mg 1X ONCE IV Last administered on 12/21/18 17:50; Start 12/21/18 at 17:30; Stop 12/21/18 at 17:31; Status DC Albuterol Sulfate (Ventolin Neb Soln) 2.5 mg PRN Q2HRS PRN NEB SHORTNESS OF BREATH; Start 12/21/18 at 17:30 Nicotine (Nicoderm Cq 14mg) 1 patch PRN DAILY PRN TD SMOKING CESSATION Last administered on 12/25/18 09:25; Start 12/21/18 at 19:30 Lorazepam (Ativan) 1 mg 1X ONCE IV Last administered on 12/21/18 23:45; Start 12/21/18 at 23:45; Stop 12/21/18 at 23:46; Status DC Lorazepam (Ativan) 1 mg PRN Q4HRS PRN IV ANXIETY / AGITATION Last administered on 12/22/18 11:15; Start 12/21/18 at 23:30; Stop 12/22/18 at 14:42; Status DC Sodium Chloride 1,000 ml @ 250 mls/hr 1X ONCE IV Last administered on at 09:15; Start 12/22/18 at 09:15; Stop 12/22/18 at 13:14; Status DC Lidocaine/Sodium Bicarbonate (Buffered Lidocaine 1%) 3 ml STK-MED ONCE .ROUTE ; Start 12/23/18 at 10:33; Stop 12/23/18 at 10:35; Status DC Lidocaine/Sodium Bicarbonate (Buffered Lidocaine 1%) 3 ml 1X ONCE INJ Last administered on 12/23/18at 11:24; Start 12/23/18 at 11:00; Stop 12/23/18 at 11:10; Status DC Info (Tpn Per Pharmacy) 1 each PRN DAILY PRN MC SEE COMMENTS Last administered on 12/25/18at 11:00; Start 12/23/18 at 14:00 Sodium Chloride 90 meq/Potassium Chloride 50 meq/ Potassium Phosphate 20.4 mmol/ Magnesium Sulfate 18 meq/ Calcium Gluconate 5 meq/ Multivitamins 10 ml/Chromium / Copper/Manganese/ Seleni/Zn 1 ml/ Total Parenteral Nutrition/Amino Acids/ Dextrose/ Fat Emulsion Intravenous 1,512 ml @ 63 mls/hr TPN CONT IV Last administered on 12/23/18at 21:37; Start 12/23/18 at 22:00; Stop 12/24/18 at 21:59; Status DC Alprazolam (Xanax) 0.25 mg PRN BID PRN PO ANXIETY / AGITATION Last administered on 12/25/18 09:25; Start 12/23/18 at 23:00 Lorazepam (Ativan) 1 mg PRN Q4HRS PRN IV ANXIETY / AGITATION Last administered on 12/24/18 09:21; Start 12/24/18 at 08:45; Stop 12/24/18 at 10:19; Status DC Pantoprazole Sodium (PROTONIX VIAL for IV PUSH) 40 mg DAILYAC IVP Last administered on 12/25/18 05:45; Start 12/24/18 at 09:30 Lorazepam (Ativan) 0.5 mg PRN Q4HRS PRN IV ANXIETY / AGITATION Last administered on 12/25/18 04:47; Start 12/24/18 at 10:30; Stop 12/25/18 at 10:22; Status DC Sodium Chloride 45 meq/Sodium Acetate 45 meq/ Potassium Chloride 50 meq/ Potassium Phosphate 20.4 mmol/Magnesium Sulfate 18 meq/ Calcium Gluconate 5 meq / Multivitamins 10 ml/Chromium/ Copper/Manganese/ Seleni/Zn 1 ml/ Total Parenteral Nutrition/Amino Acids/Dextrose/ Fat Emuls... 1,512 ml @ 63 mls/hr TPN CONT IV Last administered on 12/24/18at 21:57; Start 12/24/18 at 22:00; Stop 12/25/18 at 21:59 Phenyleph/Shark Oil/Min Oil/Petrol (Preparation H) 1 ranjith PRN Q4HRS PRN RC RECTAL PAIN; Start 12/24/18 at 12:45 Sodium Chloride 45 meq/Sodium Acetate 45 meq/ Potassium Chloride 50 meq/ Potassium Phosphate 20.4 mmol/Magnesium Sulfate 18 meq/ Calcium Gluconate 5 meq / Multivitamins 10 ml/Chromium/ Copper/Manganese/ Seleni/Zn 1 ml/ Total Parenteral Nutrition/Amino Acids/Dextrose/ Fat Emuls... 1,512 ml @ 63 mls/hr TPN CONT IV ; Start 12/25/18 at 22:00; Stop 12/26/18 at 21:59 Active Scripts Active Chlorhexidine Gluconate 473 Ml Mouthwash 473 Ml MM BID 7 Days Vitamin C (Ascorbate Calcium) 500 Mg Tablet 500 Mg PO DAILY 30 Days Slow Release Iron (Ferrous Sulfate) 250 Mg Tablet.er 250 Mg PO DAILY 30 Days Protonix (Pantoprazole Sodium) 40 Mg Granpkt.dr 40 Mg PO DAILY 30 Days Reported Alprazolam 0.25 Mg Tablet 0.25 Mg PO DAILY Metformin Hcl Er (Metformin Hcl) 500 Mg Tab.er.24h 1 Tab PO DAILY Namenda (Memantine Hcl) 10 Mg Tablet 1 Tab PO BID Losartan Potassium 100 Mg Tablet 100 Mg PO DAILY Spironolactone 25 Mg Tablet 1 Tab PO DAILY Ventolin Hfa Inhaler (Albuterol Sulfate) 18 Gm Hfa.aer.ad 2 Puff INH Q4HRS Cymbalta (Duloxetine Hcl) 20 Mg Capsule.dr 90 Mg PO DAILY Requip (Ropinirole Hcl) 1 Mg Tablet 3 Mg PO DAILY Amlodipine Besylate 10 Mg Tablet 10 Mg PO DAILY Vitals/I & O Vital Sign - Last 24 Hours 12/24/18 12/24/18 12/24/18 12/24/18 14:47 15:00 15:07 19:00 Temp 97.9 98.4 97.9 98.4 Pulse 98 98 Resp 22 18 B/P (MAP) 128/83 (98) 136/84 (101) Pulse Ox 98 94 98 O2 Delivery Nasal Cannula Room Air Nasal Cannula Nasal Cannula O2 Flow Rate 4.0 3.0 3.0 12/24/18 12/24/18 12/24/18 12/24/18 19:03 19:32 20:00 22:36 O2 Delivery Nasal Cannula Nasal Cannula Nasal Cannula Nasal Cannula O2 Flow Rate 4.0 3.0 3.0 3.0 12/24/18 12/25/18 12/25/18 12/25/18 23:00 02:04 02:28 02:34 Temp 98.2 98.2 Pulse 88 Resp 18 22 B/P (MAP) 142/86 (104) Pulse Ox 96 96 94 O2 Delivery Nasal Cannula Nasal Cannula Nasal Cannula O2 Flow Rate 3.0 3.0 3.0 12/25/18 12/25/18 12/25/18 12/25/18 03:00 07:00 07:37 09:26 Temp 97.8 97.5 97.8 97.5 Pulse 77 98 Resp 18 18 B/P (MAP) 135/83 (100) 139/90 (106) Pulse Ox 94 97 96 O2 Delivery Room Air Nasal Cannula Nasal Cannula Nasal Cannula O2 Flow Rate 3.0 3.0 2.0 3.0 12/25/18 12/25/18 12/25/18 09:36 10:27 11:17 Pulse 98 B/P (MAP) 139/90 Pulse Ox 98 O2 Delivery Nasal Cannula Nasal Cannula O2 Flow Rate 3.0 3.0 Intake and Output 12/24/18 12/24/18 12/25/18 15:01 23:01 07:01 Intake Total 30 ml Output Total 300 ml Balance -300 ml 30 ml ISACC SERRATO MD Dec 25, 2018 12:29
--- NOTE | 2018-12-25 12:43 | PDOC ---
G I PROGRESS NOTE Reason for Follow-up S/P r colectomy for bleeding Subjective More SOA Physical Exam Lungs decreased BS CV S1 S2 ABD +BS, soft, less distended EXT 2+ Review of Relevant I have reviewed the following items abdifatah (where applicable) has been applied. Labs Laboratory Tests Test 12/23/18 13:40 12/23/18 17:00 12/23/18 17:40 12/23/18 20:59 White Blood Count 6.1 x10^3/uL (4.0-11.0) Red Blood Count 3.29 x10^6/uL (3.50-5.40) Hemoglobin 8.0 g/dL (12.0-15.5) Hematocrit 25.7 % (36.0-47.0) Mean Corpuscular Volume 78 fL (79-100) Mean Corpuscular Hemoglobin 24 pg (25-35) Mean Corpuscular Hemoglobin Concent 31 g/dL (31-37) Red Cell Distribution Width 23.6 % (11.5-14.5) Platelet Count 235 x10^3/uL (140-400) Procalcitonin 0.15 ng/mL (0.00-0.10) Glucose (Fingerstick) 100 mg/dL (70-99) 98 mg/dL (70-99) Urine Color Yellow Urine Clarity Clear Urine pH 6.0 Urine Specific [place] 1.025 Urine Protein Negative mg/dL (NEG-TRACE) Urine Glucose (UA) Negative mg/dL (NEG) Urine Ketones (Stick) 15 mg/dL (NEG) Urine Blood Negative (NEG) Urine Nitrite Negative (NEG) Urine Bilirubin Negative (NEG) Urine Urobilinogen Dipstick 0.2 mg/dL (0.2 mg/dL) Urine Leukocyte Esterase Negative (NEG) Urine RBC 0 /HPF (0-2) Urine WBC Occ /HPF (0-4) Urine Squamous Epithelial Cells Occ /LPF Urine Bacteria 0 /HPF (0-FEW) Urine Hyaline Casts Occasional /HPF Urine Mucus Mod /LPF Test 12/24/18 05:00 12/24/18 08:02 12/24/18 10:57 12/24/18 17:21 White Blood Count 6.6 x10^3/uL (4.0-11.0) Red Blood Count 3.26 x10^6/uL (3.50-5.40) Hemoglobin 8.0 g/dL (12.0-15.5) Hematocrit 25.6 % (36.0-47.0) Mean Corpuscular Volume 79 fL (79-100) Mean Corpuscular Hemoglobin 25 pg (25-35) Mean Corpuscular Hemoglobin Concent 31 g/dL (31-37) Red Cell Distribution Width 23.5 % (11.5-14.5) Platelet Count 240 x10^3/uL (140-400) Sodium Level 145 mmol/L (136-145) Potassium Level 4.0 mmol/L (3.5-5.1) Chloride Level 109 mmol/L (98-107) Carbon Dioxide Level 25 mmol/L (21-32) Anion Gap 11 (6-14) Blood Urea Nitrogen 34 mg/dL (7-20) Creatinine 0.8 mg/dL (0.6-1.0) Estimated GFR (Cockcroft-Gault) 84.6 Glucose Level 155 mg/dL (70-99) Calcium Level 9.3 mg/dL (8.5-10.1) Phosphorus Level 3.0 mg/dL (2.6-4.7) Magnesium Level 2.2 mg/dL (1.8-2.4) Triglycerides Level 107 mg/dL (0-150) Glucose (Fingerstick) 169 mg/dL (70-99) 177 mg/dL (70-99) 165 mg/dL (70-99) Test 12/24/18 20:07 12/25/18 05:45 12/25/18 07:20 12/25/18 10:30 Glucose (Fingerstick) 166 mg/dL (70-99) 152 mg/dL (70-99) Sodium Level 145 mmol/L (136-145) Potassium Level 4.3 mmol/L (3.5-5.1) Chloride Level 111 mmol/L (98-107) Carbon Dioxide Level 26 mmol/L (21-32) Anion Gap 8 (6-14) Blood Urea Nitrogen 29 mg/dL (7-20) Creatinine 0.8 mg/dL (0.6-1.0) Estimated GFR (Cockcroft-Gault) 84.6 Glucose Level 171 mg/dL (70-99) Calcium Level 9.5 mg/dL (8.5-10.1) Phosphorus Level 3.2 mg/dL (2.6-4.7) Magnesium Level 2.3 mg/dL (1.8-2.4) O2 Saturation 93 % (92-99) Arterial Blood pH 7.46 (7.35-7.45) Arterial Blood pCO2 at Patient Temp 35 mmHg (35-46) Arterial Blood pO2 at Patient Temp 66 mmHg (65-108) Arterial Blood HCO3 24 mmol/L (21-28) Arterial Blood Base Excess 0 mmol/L (-3-3) FiO2 2 lpm nc Test 12/25/18 11:15 12/25/18 11:36 Lactic Acid Level 0.9 mmol/L (0.4-2.0) Glucose (Fingerstick) 152 mg/dL (70-99) Laboratory Tests Test 12/24/18 17:21 12/24/18 20:07 12/25/18 05:45 12/25/18 07:20 Glucose (Fingerstick) 165 mg/dL (70-99) 166 mg/dL (70-99) 152 mg/dL (70-99) Sodium Level 145 mmol/L (136-145) Potassium Level 4.3 mmol/L (3.5-5.1) Chloride Level 111 mmol/L (98-107) Carbon Dioxide Level 26 mmol/L (21-32) Anion Gap 8 (6-14) Blood Urea Nitrogen 29 mg/dL (7-20) Creatinine 0.8 mg/dL (0.6-1.0) Estimated GFR (Cockcroft-Gault) 84.6 Glucose Level 171 mg/dL (70-99) Calcium Level 9.5 mg/dL (8.5-10.1) Phosphorus Level 3.2 mg/dL (2.6-4.7) Magnesium Level 2.3 mg/dL (1.8-2.4) Test 12/25/18 10:30 12/25/18 11:15 12/25/18 11:36 O2 Saturation 93 % (92-99) Arterial Blood pH 7.46 (7.35-7.45) Arterial Blood pCO2 at Patient Temp 35 mmHg (35-46) Arterial Blood pO2 at Patient Temp 66 mmHg (65-108) Arterial Blood HCO3 24 mmol/L (21-28) Arterial Blood Base Excess 0 mmol/L (-3-3) FiO2 2 lpm nc Lactic Acid Level 0.9 mmol/L (0.4-2.0) Glucose (Fingerstick) 152 mg/dL (70-99) Microbiology 12/21/18 Blood Culture - Preliminary, Resulted NO GROWTH AFTER 4 DAYS Medications Current Medications Sodium Chloride 1,000 ml @ 1,000 mls/hr 1X ONCE IV Last administered on 13:52; Start 12/14/18 at 13:30; Stop 12/14/18 at 14:29; Status DC Amlodipine Besylate (Norvasc) 10 mg DAILY PO Last administered on 12/25/18 09: 36; Start 12/14/18 at 17:00 Chlorhexidine Gluconate (Peridex) 15 ml BID MM Last administered on 12/25/18 09 :25; Start 12/14/18 at 21:00 Non-Formulary Medication (Albuterol Sulfate (Ventolin Hfa Inhaler)) 2 puff Q4HRS INH ; Start 12/14/18 at 20:00; Status UNV Ascorbic Acid (Vitamin C) 500 mg DAILY PO Last administered on 12/22/18 10:30; Start 12/14/18 at 17:00 Duloxetine HCl (Cymbalta) 90 mg DAILY PO Last administered on 12/22/18 10:30; Start 12/14/18 at 17:00 Ferrous Sulfate (Feosol) 325 mg DAILYWBKFT PO Last administered on 12/22/18 10: 30; Start 12/14/18 at 17:00 Losartan Potassium (Cozaar) 100 mg DAILY PO Last administered on 12/22/18 10:29 ; Start 12/14/18 at 17:00 Memantine (Namenda) 10 mg BID PO Last administered on 12/24/18 20:12; Start at 21:00 Pantoprazole Sodium (Protonix) 40 mg DAILYAC PO Last administered on 12/22/18 05:28; Start 12/14/18 at 17:00; Stop 12/24/18 at 09:25; Status DC Ropinirole HCl (Requip) 3 mg QHS PO Last administered on 12/24/18 20:12; Start 12/14/18 at 21:00 Spironolactone (Aldactone) 25 mg DAILY PO Last administered on 12/22/18at 10:29; Start 12/14/18 at 17:00 Albuterol Sulfate (Ventolin Neb Soln) 2.5 mg Q4HRS NEB Last administered on 12/25at 11:12; Start 12/14/18 at 20:00 Sodium Chloride 1,000 ml @ 80 mls/hr [id number] IV Last administered on 12/23/18at 15:25; Start 12/14/18 at 17:15; Stop 12/23/18 at 21:59; Status DC Acetaminophen (Tylenol) 650 mg PRN Q6HRS PRN PO Pain Last administered on at 21:27; Start 12/15/18 at 04:45 Polyethylene Glycol (miraLAX Powder BULK BOTTLE) 238 gm 1X ONCE PO Last administered on 12/15/18at 12:48; Start 12/15/18 at 12:00; Stop 12/15/18 at 12:01 ; Status DC Ondansetron HCl (Zofran) 4 mg PRN Q6HRS PRN IV NAUSEA/VOMITING; Start 12/16/18 at 07:00; Stop 12/17/18 at 06:59; Status DC Fentanyl Citrate (Fentanyl 2ml Vial) 25 mcg PRN Q5MIN PRN IV MILD PAIN; Start 12/16/18 at 07:00; Stop 12/16/18 at 16:33; Status DC Fentanyl Citrate (Fentanyl 2ml Vial) 50 mcg PRN Q5MIN PRN IV MODERATE TO SEVERE PAIN; Start 12/16/18 at 07:00; Stop 12/16/18 at 16:33; Status DC Morphine Sulfate (Morphine Sulfate) 1 mg PRN Q10MIN PRN IV SEVERE PAIN; Start 12/16/18 at 07:00; Stop 12/17/18 at 06:59; Status DC Ringer's Solution 1,000 ml @ 30 mls/hr Q24H IV Last administered on 12/16/18at 13:00; Start 12/16/18 at 07:00; Stop 12/16/18 at 18:59; Status DC Lidocaine HCl (Xylocaine-Mpf 1% 2ml Vial) 2 ml PRN 1X PRN ID IV START; Start at 07:00; Stop 12/17/18 at 06:59; Status DC Hydromorphone HCl (Dilaudid) 0.5 mg PRN Q10MIN PRN IV SEV PAIN, Second choice; Start 12/16/18 at 07:00; Stop 12/17/18 at 06:59; Status DC Prochlorperazine Edisylate (Compazine) 5 mg PACU PRN PRN IV NAUSEA, MRX1; Start 12/16/18 at 07:00; Stop 12/17/18 at 06:59; Status DC Midazolam HCl (Versed) 2 mg PRN 1X PRN IV PRIOR TO PROCEDURE; Start 12/16/18 at 07:15; Stop 12/17/18 at 07:14; Status DC Fentanyl Citrate (Fentanyl 2ml Vial) 25 mcg PRN Q5MIN PRN IV X 2 DOSES FOR PAIN ; Start 12/16/18 at 07:15; Stop 12/16/18 at 16:33; Status DC Fentanyl Citrate (Fentanyl 2ml Vial) 50 mcg PRN Q5MIN PRN IV X 2 DOSES FOR PAIN ; Start 12/16/18 at 07:15; Stop 12/16/18 at 16:34; Status DC Ringer's Solution 1,000 ml @ 125 mls/hr Q8H IV ; Start 12/16/18 at 07:13; Stop 12/16/18 at 19:12; Status DC Lidocaine HCl (Xylocaine-Mpf 1% 2ml Vial) 2 ml 1X PRN PRN ID IV START; Start at 07:15; Stop 12/17/18 at 07:14; Status DC Propofol 40 ml @ As Directed STK-MED ONCE IV ; Start 12/16/18 at 13:58; Stop at 14:00; Status DC Prochlorperazine Edisylate (Compazine) 5 mg PACU PRN PRN IV NAUSEA, MRX1; Start 12/17/18 at 07:00; Stop 12/18/18 at 06:59; Status DC Hydromorphone HCl (Dilaudid) 0.5 mg PRN Q10MIN PRN IV SEV PAIN, Second choice; Start 12/17/18 at 07:00; Stop 12/18/18 at 06:59; Status DC Lidocaine HCl (Xylocaine-Mpf 1% 2ml Vial) 2 ml PRN 1X PRN ID IV START; Start at 07:00; Stop 12/18/18 at 06:59; Status DC Ringer's Solution 1,000 ml @ 30 mls/hr Q24H IV Last administered on 12/17/18at 10:34; Start 12/17/18 at 07:00; Stop 12/17/18 at 18:59; Status DC Morphine Sulfate (Morphine Sulfate) 1 mg PRN Q10MIN PRN IV SEVERE PAIN; Start 12/17/18 at 07:00; Stop 12/18/18 at 06:59; Status DC Fentanyl Citrate (Fentanyl 2ml Vial) 50 mcg PRN Q5MIN PRN IV MODERATE TO SEVERE PAIN Last administered on 12/17/18at 11:13; Start 12/17/18 at 07:00; Stop at 06:59; Status DC Fentanyl Citrate (Fentanyl 2ml Vial) 25 mcg PRN Q5MIN PRN IV MILD PAIN; Start 12/17/18 at 07:00; Stop 12/18/18 at 06:59; Status DC Ondansetron HCl (Zofran) 4 mg PRN Q6HRS PRN IV NAUSEA/VOMITING; Start 12/17/18 at 07:00; Stop 12/18/18 at 06:59; Status DC Propofol 20 ml @ As Directed STK-MED ONCE IV ; Start 12/17/18 at 07:21; Stop 12/17 at 07:23; Status DC Albuterol Sulfate (Ventolin Neb Soln) 2.5 mg 1X ONCE NEB ; Start 12/17/18 at 07: 30; Stop 12/17/18 at 07:31; Status DC Lidocaine HCl (Lidocaine Pf 2% Vial) 5 ml STK-MED ONCE .ROUTE ; Start 12/17/18 at 07:21; Stop 12/17/18 at 07:23; Status DC Succinylcholine Chloride (Anectine) 200 mg STK-MED ONCE .ROUTE ; Start 12/17/18 at 07:21; Stop 12/17/18 at 07:23; Status DC Rocuronium [place] (Zemuron) 50 mg STK-MED ONCE .ROUTE ; Start 12/17/18 at 07:21 ; Stop 12/17/18 at 07:23; Status DC Fentanyl Citrate (Fentanyl 2ml Vial) 100 mcg STK-MED ONCE .ROUTE ; Start at 07:21; Stop 12/17/18 at 07:24; Status DC Cefazolin Sodium/ Dextrose 50 ml @ 100 mls/hr 1X ONCE IV Last administered on 12/17/18at 08:07; Start 12/17/18 at 07:45; Stop 12/17/18 at 08:18; Status DC Bupivacaine HCl/ Epinephrine Bitart (Sensorcain-Mpf Epi 0.5%-1:[id number]) 30 ml STK -MED ONCE .ROUTE Last administered on 12/17/18at 08:34; Start 12/17/18 at 07:46; Stop 12/17/18 at 07:49; Status DC Neomycin/ Polymyxin/ Bacitracin (Triple Antibiotic Ointment) 1 pkt STK-MED ONCE TP Last administered on 12/17/18at 10:07; Start 12/17/18 at 07:46; Stop 12/17/18 at 07:49; Status DC Neomycin/ Polymyxin/ Bacitracin (Triple Antibiotic Ointment) 1 pkt STK-MED ONCE TP Last administered on 12/17/18at 10:07; Start 12/17/18 at 07:46; Stop 12/17/18 at 07:49; Status DC Neomycin/ Polymyxin/ Bacitracin (Triple Antibiotic Ointment) 1 pkt STK-MED ONCE TP ; Start 12/17/18 at 07:47; Stop 12/17/18 at 07:49; Status DC Dexamethasone Sodium Phosphate (Decadron) 20 mg STK-MED ONCE .ROUTE ; Start 12/17 at 07:54; Stop 12/17/18 at 07:56; Status DC Hydrocortisone Sodium Succinate (Solu-CORTEF) 100 mg STK-MED ONCE .ROUTE ; Start 12/17/18 at 07:54; Stop 12/17/18 at 07:56; Status DC Desflurane (Suprane) 90 ml STK-MED ONCE IH ; Start 12/17/18 at 07:54; Stop at 07:56; Status DC Neostigmine Methylsulfate (Bloxiverz) 10 mg STK-MED ONCE .ROUTE ; Start 12/17/18 at 08:21; Stop 12/17/18 at 08:24; Status DC Glycopyrrolate (Robinul) 1 mg STK-MED ONCE .ROUTE ; Start 12/17/18 at 08:21; Stop 12/17/18 at 08:24; Status DC Phenylephrine HCl (Bogdan-Synephrine Inj) 10 mg STK-MED ONCE .ROUTE ; Start at 08:23; Stop 12/17/18 at 08:26; Status DC Desflurane (Suprane) 60 ml STK-MED ONCE IH ; Start 12/17/18 at 09:23; Stop at 09:26; Status DC Bupivacaine HCl/ Epinephrine Bitart (Sensorcain-Mpf Epi 0.5%-1:[id number]) 30 ml STK -MED ONCE .ROUTE Last administered on 12/17/18 10:06; Start 12/17/18 at 09:41; Stop 12/17/18 at 09:43; Status DC Morphine Sulfate (Morphine Sulfate) 2 mg PRN Q2HR PRN IV PAIN Last administered on 12/25/18 09:26; Start 12/17/18 at 10:15 Ketorolac Tromethamine (Toradol 15mg Vial) 15 mg Q6HRS IV Last administered on 12/18/18 05:39; Start 12/17/18 at 12:00; Stop 12/18/18 at 10:00; Status DC Artificial Tears (Artificial Tears) 1 drop PRN Q15MIN PRN OU DRY EYE Last administered on 12/20/18 21:28; Start 12/18/18 at 08:00 Docusate Sodium (Colace) 100 mg DAILY PO Last administered on 12/22/18 10:29; Start 12/18/18 at 10:00 Throat Lozenges (Cepacol Sore Throat Lozenge) 1 kristyn PRN Q2HRS PRN PO SORE THROAT Last administered on 12/20/18 19:46; Start 12/18/18 at 14:00 Enoxaparin Sodium (Lovenox 40mg Syringe) 40 mg Q24H SQ Last administered on 12/25 09:25; Start 12/19/18 at 09:00 Ondansetron HCl (Zofran) 4 mg PRN Q6HRS PRN IV NAUSEA/VOMITING Last administered on 2/7/19at 10:49; Start 12/19/18 at 11:30 Insulin Human Lispro (HumaLOG) 0-5 UNITS TIDWMEALS SQ ; Start 12/19/18 at 17:00 Dextrose (Dextrose 50%-Water Syringe) 12.5 gm PRN Q15MIN PRN IV SEE COMMENTS; Start 12/19/18 at 16:45 Levofloxacin/ Dextrose 100 ml @ 100 mls/hr 1X ONCE IV Last administered on 12/19/18at 20:56; Start 12/19/18 at 21:00; Stop 12/19/18 at 21:59; Status DC Cefepime HCl (Maxipime) 2 gm Q12HR IVP Last administered on 12/25/18at 09:25; Start 12/21/18 at 10:00 Sodium Chloride 1,000 ml @ 125 mls/hr 1X ONCE IV Last administered on at 10:43; Start 12/21/18 at 09:45; Stop 12/21/18 at 17:44; Status DC Calcium Carbonate/ Glycine (Tums) 500 mg PRN AFTMEALHC PRN PO INDIGESTION Last administered on 12/21/18at 13:10; Start 12/21/18 at 12:15 Lorazepam (Ativan) 1 mg 1X ONCE IV Last administered on 12/21/18at 17:50; Start 12/21/18 at 17:30; Stop 12/21/18 at 17:31; Status DC Albuterol Sulfate (Ventolin Neb Soln) 2.5 mg PRN Q2HRS PRN NEB SHORTNESS OF BREATH; Start 12/21/18 at 17:30 Nicotine (Nicoderm Cq 14mg) 1 patch PRN DAILY PRN TD SMOKING CESSATION Last administered on 12/25/18at 09:25; Start 12/21/18 at 19:30 Lorazepam (Ativan) 1 mg 1X ONCE IV Last administered on 12/21/18at 23:45; Start 12/21/18 at 23:45; Stop 12/21/18 at 23:46; Status DC Lorazepam (Ativan) 1 mg PRN Q4HRS PRN IV ANXIETY / AGITATION Last administered on 12/22/18at 11:15; Start 12/21/18 at 23:30; Stop 12/22/18 at 14:42; Status DC Sodium Chloride 1,000 ml @ 250 mls/hr 1X ONCE IV Last administered on 09:15; Start 12/22/18 at 09:15; Stop 12/22/18 at 13:14; Status DC Lidocaine/Sodium Bicarbonate (Buffered Lidocaine 1%) 3 ml STK-MED ONCE .ROUTE ; Start 12/23/18 at 10:33; Stop 12/23/18 at 10:35; Status DC Lidocaine/Sodium Bicarbonate (Buffered Lidocaine 1%) 3 ml 1X ONCE INJ Last administered on 12/23/18 11:24; Start 12/23/18 at 11:00; Stop 12/23/18 at 11:10; Status DC Info (Tpn Per Pharmacy) 1 each PRN DAILY PRN MC SEE COMMENTS Last administered on 12/25/18 11:00; Start 12/23/18 at 14:00 Sodium Chloride 90 meq/Potassium Chloride 50 meq/ Potassium Phosphate 20.4 mmol/ Magnesium Sulfate 18 meq/ Calcium Gluconate 5 meq/ Multivitamins 10 ml/Chromium / Copper/Manganese/ Seleni/Zn 1 ml/ Total Parenteral Nutrition/Amino Acids/ Dextrose/ Fat Emulsion Intravenous 1,512 ml @ 63 mls/hr TPN CONT IV Last administered on 12/23/18 21:37; Start 12/23/18 at 22:00; Stop 12/24/18 at 21:59; Status DC Alprazolam (Xanax) 0.25 mg PRN BID PRN PO ANXIETY / AGITATION Last administered on 12/25/18 09:25; Start 12/23/18 at 23:00 Lorazepam (Ativan) 1 mg PRN Q4HRS PRN IV ANXIETY / AGITATION Last administered on 12/24/18 09:21; Start 12/24/18 at 08:45; Stop 12/24/18 at 10:19; Status DC Pantoprazole Sodium (PROTONIX VIAL for IV PUSH) 40 mg DAILYAC IVP Last administered on 12/25/18 05:45; Start 12/24/18 at 09:30 Lorazepam (Ativan) 0.5 mg PRN Q4HRS PRN IV ANXIETY / AGITATION Last administered on 12/25/18 04:47; Start 12/24/18 at 10:30; Stop 12/25/18 at 10:22; Status DC Sodium Chloride 45 meq/Sodium Acetate 45 meq/ Potassium Chloride 50 meq/ Potassium Phosphate 20.4 mmol/Magnesium Sulfate 18 meq/ Calcium Gluconate 5 meq / Multivitamins 10 ml/Chromium/ Copper/Manganese/ Seleni/Zn 1 ml/ Total Parenteral Nutrition/Amino Acids/Dextrose/ Fat Emuls... 1,512 ml @ 63 mls/hr TPN CONT IV Last administered on 12/24/18at 21:57; Start 12/24/18 at 22:00; Stop 12/25/18 at 21:59 Phenyleph/Shark Oil/Min Oil/Petrol (Preparation H) 1 ranjith PRN Q4HRS PRN RC RECTAL PAIN; Start 12/24/18 at 12:45 Sodium Chloride 45 meq/Sodium Acetate 45 meq/ Potassium Chloride 50 meq/ Potassium Phosphate 20.4 mmol/Magnesium Sulfate 18 meq/ Calcium Gluconate 5 meq / Multivitamins 10 ml/Chromium/ Copper/Manganese/ Seleni/Zn 1 ml/ Total Parenteral Nutrition/Amino Acids/Dextrose/ Fat Emuls... 1,512 ml @ 63 mls/hr TPN CONT IV ; Start 12/25/18 at 22:00; Stop 12/26/18 at 21:59 Active Scripts Active Chlorhexidine Gluconate 473 Ml Mouthwash 473 Ml MM BID 7 Days Vitamin C (Ascorbate Calcium) 500 Mg Tablet 500 Mg PO DAILY 30 Days Slow Release Iron (Ferrous Sulfate) 250 Mg Tablet.er 250 Mg PO DAILY 30 Days Protonix (Pantoprazole Sodium) 40 Mg Grankofikt. 40 Mg PO DAILY 30 Days Reported Alprazolam 0.25 Mg Tablet 0.25 Mg PO DAILY Metformin Hcl Er (Metformin Hcl) 500 Mg Tab.er.24h 1 Tab PO DAILY Namenda (Memantine Hcl) 10 Mg Tablet 1 Tab PO BID Losartan Potassium 100 Mg Tablet 100 Mg PO DAILY Spironolactone 25 Mg Tablet 1 Tab PO DAILY Ventolin Hfa Inhaler (Albuterol Sulfate) 18 Gm Hfa.aer.ad 2 Puff INH Q4HRS Cymbalta (Duloxetine Hcl) 20 Mg Capsule.dr 90 Mg PO DAILY Requip (Ropinirole Hcl) 1 Mg Tablet 3 Mg PO DAILY Amlodipine Besylate 10 Mg Tablet 10 Mg PO DAILY Vitals/I & O Vital Sign - Last 24 Hours 2/8/19 2/8/19 2/8/19 2/8/19 14:47 15:00 15:07 19:00 Temp 97.9 98.4 97.9 98.4 Pulse 98 98 Resp 22 18 B/P (MAP) 128/83 (98) 136/84 (101) Pulse Ox 98 94 98 O2 Delivery Nasal Cannula Room Air Nasal Cannula Nasal Cannula O2 Flow Rate 4.0 3.0 3.0 12/24/18 12/24/18 12/24/18 12/24/18 19:03 19:32 20:00 22:36 O2 Delivery Nasal Cannula Nasal Cannula Nasal Cannula Nasal Cannula O2 Flow Rate 4.0 3.0 3.0 3.0 12/24/18 12/25/18 12/25/18 12/25/18 23:00 02:04 02:28 02:34 Temp 98.2 98.2 Pulse 88 Resp B/P (MAP) 142/86 (104) Pulse Ox 96 96 94 O2 Delivery Nasal Cannula Nasal Cannula Nasal Cannula O2 Flow Rate 3.0 3.0 3.0 12/25/18 12/25/18 12/25/18 12/25/18 03:00 07:00 07:37 09:26 Temp 97.8 97.5 97.8 97.5 Pulse 77 98 Resp 18 18 B/P (MAP) 135/83 (100) 139/90 (106) Pulse Ox 94 97 96 O2 Delivery Room Air Nasal Cannula Nasal Cannula Nasal Cannula O2 Flow Rate 3.0 3.0 2.0 3.0 12/25/18 12/25/18 12/25/18 09:36 10:27 11:17 Pulse 98 B/P (MAP) 139/90 Pulse Ox 98 O2 Delivery Nasal Cannula Nasal Cannula O2 Flow Rate 3.0 3.0 Intake and Output 12/24/18 12/24/18 12/25/18 15:01 23:01 07:01 Intake Total 30 ml Output Total 300 ml Balance -300 ml 30 ml Problem List S/p R hemicolectomy- for cecal diverticulosis/ulcer with bleeding, Hg stable Dyspnea- with COPD exacerbation, will resume her diuretics as she is no longer NPO ELIZABETH PACHECO MD Dec 25, 2018 12:43
--- NOTE | 2018-12-25 14:05 | PDOC ---
Infectious Disease Note Subjective Subjective Having some increase work of breathing after returning from the bathroom c/o abdominal pain No BM Denies F/C/S/N/V/CP ROS ROS per HPI Vital Sign Vital Signs Vital Signs Date Time Temp Pulse Resp B/P (MAP) Pulse Ox O2 Delivery O2 Flow Rate FiO2 12/25/18 11:17 98 Nasal Cannula 3.0 12/25/18 09:36 98 139/90 12/25/18 07:00 97.5 18 97.5 Physical Exam PHYSICAL EXAM GENERAL: Lying down, tired appearance, HEENT: Oral cavity clear NECK: Supple LUNGS: Soft wheeze HEART: S1, S2 ABDOMEN: Distended, soft, hypoactive BS. dressings dry EXTREMITIES: No edema or cyanosis. SKIN: No rash. Rectal wound clean NEUROLOGIC: Awake, responds appropriately RUE-PICC (12/23) clean Labs Lab Laboratory Tests Test 12/24/18 17:21 12/24/18 20:07 12/25/18 05:45 12/25/18 07:20 Glucose (Fingerstick) 165 mg/dL (70-99) 166 mg/dL (70-99) 152 mg/dL (70-99) Sodium Level 145 mmol/L (136-145) Potassium Level 4.3 mmol/L (3.5-5.1) Chloride Level 111 mmol/L (98-107) Carbon Dioxide Level 26 mmol/L (21-32) Anion Gap 8 (6-14) Blood Urea Nitrogen 29 mg/dL (7-20) Creatinine 0.8 mg/dL (0.6-1.0) Estimated GFR (Cockcroft-Gault) 84.6 Glucose Level 171 mg/dL (70-99) Calcium Level 9.5 mg/dL (8.5-10.1) Phosphorus Level 3.2 mg/dL (2.6-4.7) Magnesium Level 2.3 mg/dL (1.8-2.4) Test 12/25/18 10:30 12/25/18 11:15 12/25/18 11:36 O2 Saturation 93 % (92-99) Arterial Blood pH 7.46 (7.35-7.45) Arterial Blood pCO2 at Patient Temp 35 mmHg (35-46) Arterial Blood pO2 at Patient Temp 66 mmHg (65-108) Arterial Blood HCO3 24 mmol/L (21-28) Arterial Blood Base Excess 0 mmol/L (-3-3) FiO2 2 lpm nc Lactic Acid Level 0.9 mmol/L (0.4-2.0) Glucose (Fingerstick) 152 mg/dL (70-99) Micro Microbiology 12/21/18 Blood Culture - Preliminary, Resulted NO GROWTH AFTER 4 DAYS Objective Assessment ? Sepsis,, normal lactic acid, BC neg Leukocytosis post surgery and then leukopenia, no fever; improved S/P laparoscopic-assisted right colon resection and hemorrhoidectomy on 2018 for bleeding cecal ulcer and hemorrhoids; path negative for malignancy . COPD Pneumonia Ileus Anemia Plan Plan of Care Cefepime Sputum C & S breathing treatment D/w RN Patient seen, examined, I agree with above assessment and plan HERSON PARSON APRN Dec 25, 2018 14:05 MICHAEL SALINAS MD Dec 25, 2018 14:44
[2018-12-25 15:00] VITALS: BP 115/73
[2018-12-25 19:00] VITALS: BP 114/68
--- NOTE | 2018-12-25 20:17 | NUR ---
Pt was less talkative, and was falling asleep while conversing around 1200 rounds. Doctors paged. Orders given. ABG's normal. Lactic 0.9. Ammonia lab sent. Pt was given ativan on the shift supervisor film processing, pt showed signs of sedation. Ativan has since been discontinued. Morphine doses have been changed, so patient will receive dose less often. Pt is now doing much better this evening, conversing with family, more active, and closer to baseline. ATIVAN use not Recommended.
--- NOTE | 2018-12-25 20:21 | NUR ---
Pt is retaining urine, bladder scanned post void, she has incontinence issues, and has been voiding into brief. Pt was scanned with 600ml in bladder. Doctor orders given for philippe. security shift supervisor nurse inserted. Pt reported some relief and no discomfort during procedure. Will continue to monitor.
[2018-12-25] MEDS: rOPINIRole 1 MG TABLET. PO SCH (21:13)
[2018-12-25] MEDS ORDERED: AMINO ACID IV SCH ×11 (22:00)
[2018-12-25] MEDS ORDERED: DEXTROSE 70% IV SCH ×11 (22:00)
[2018-12-25] MEDS ORDERED: TOTAL PARENTERAL NUTRITION IV SCH ×11 (22:00)
[2018-12-25] MEDS ORDERED: [UNRECOGNIZED DRUG - OTHER] IV SCH ×11 (22:00)
[2018-12-25 23:00] VITALS: BP 118/72
[2018-12-26] MEDS: MORPHINE SULFATE 4 MG/ML VIAL. IV PRN ×3 (00:33→18:51)
[2018-12-26 03:00] VITALS: BP 128/80
[2018-12-26] MEDS: ALBUTEROL SULFATE 2.5 MG/3 ML NEBU. NEB SCH ×6 (03:00→23:08)
[2018-12-26] MEDS: PANTOPRAZOLE IV PUSH 40 MG VIAL. IVP SCH (06:07)
[2018-12-26 06:11] LABS: CALCIUM 9.4 mg/dL (8.5-10.1); CREATININE 0.7 mg/dL (0.6-1.0); GFR 98.7; MAGNESIUM 2.1 mg/dL (1.8-2.4); PHOSPHORUS 4.1 mg/dL (2.6-4.7); POTASSIUM 4.4 mmol/L (3.5-5.1)
[2018-12-26 07:00] VITALS: BP 138/92
[2018-12-26] MEDS: INSULIN LISPRO 300 UNITS/3 ML INSULN.PEN. SQ SCH ×3 (08:00→17:00)
[2018-12-26] MEDS: FERROUS SULFATE 325 MG TABLET. PO SCH (08:00)
[2018-12-26] MEDS: LOSARTAN POTASSIUM 50 MG TABLET. PO SCH (09:00)
[2018-12-26] MEDS: DULoxetine HCL 30 MG CAPSULE.DR PO SCH (09:00)
[2018-12-26] MEDS: MEMANTINE 10 MG TABLET. PO SCH ×2 (09:00→21:25)
[2018-12-26] MEDS: ASCORBIC ACID 500 MG TABLET PO SCH (09:00)
[2018-12-26 09:22] LABS: BASO # 0.1 x10^3/uL (0.0-0.2); BASO % 1 % (0-3); EOS # 0.1 x10^3/uL (0.0-0.7); EOS % 1 % (0-3); HEMATOCRIT 26.6 % (36.0-47.0); LYMPH # 1.4 x10^3/uL (1.0-4.8); LYMPH % 14 % (24-48); MEAN CORPUSCULAR HEMOGLOBIN 24 pg (25-35); MEAN CORPUSCULAR HGB CONC 30 g/dL (31-37); MEAN CORPUSCULAR VOLUME 79 fL (79-100); MONO % 10 % (0-9); NEUT # 7.5 x10^3uL (1.8-7.7); NEUT % 75 % (31-73); PLATELET COUNT 250 x10^3/uL (140-400); RED BLOOD COUNT 3.39 x10^6/uL (3.50-5.40); RED CELL DISTRIBUTION WIDTH 23.1 % (11.5-14.5); WHITE BLOOD COUNT 10.1 x10^3/uL (4.0-11.0)
[2018-12-26] MEDS: NEOMY/BACITR/POLYMYXIN OINT PACKET. TP PRN (09:58)
[2018-12-26] MEDS: CEFEPIME HCL IV Push 2 GM VIAL. IVP SCH ×2 (09:59→21:26)
[2018-12-26] MEDS: NICOTINE 14MG PATCH. TD PRN (09:59)
[2018-12-26] MEDS: ALPRAZolam 0.25 MG TABLET PO PRN (09:59)
[2018-12-26] MEDS: CHLORHEXIDINE 0.12% 15 ML MOUTHWASH. MM SCH ×2 (09:59→21:26)
[2018-12-26] MEDS: ENOXAPARIN 40 MG/0.4 ML SYRINGE. SQ SCH (10:01)
[2018-12-26] MEDS: SPIRONOLACTONE 25 MG TABLET PO SCH ×2 (10:01→10:42)
[2018-12-26] MEDS: amLODIPine BESYLATE 10 MG TABLET PO SCH (10:01)
[2018-12-26] MEDS: BENZOCAINE/MENTHOL LOZENGE. PO PRN (10:01)
[2018-12-26] MEDS: DOCUSATE SODIUM 100 MG CAPSULE. PO SCH (10:01)
[2018-12-26] MEDS: ALBUTEROL SULFATE 2.5 MG/3 ML NEBU. NEB PRN (10:26)
[2018-12-26] MEDS ORDERED: guaiFENesin/CODEINE 100mg/10mg 5 ML LIQUID PO PRN (10:30)
--- NOTE | 2018-12-26 10:50 | PDOC ---
Infectious Disease Note Subjective Subjective Periods of anxiety, daughter at bed side + cough Denies F/C/S/N/V/CP TPN ROS ROS per HPI Vital Sign Vital Signs Vital Signs Date Time Temp Pulse Resp B/P (MAP) Pulse Ox O2 Delivery O2 Flow Rate FiO2 12/26/18 10:26 Nasal Cannula 3.0 12/26/18 10:01 85 138/92 12/26/18 07:15 99 12/26/18 07:00 98.4 16 98.4 Physical Exam PHYSICAL EXAM GENERAL: Lying down, tired appearance, HEENT: Oral cavity clear NECK: Supple LUNGS: Soft wheeze HEART: S1, S2 ABDOMEN: Distended, soft, hypoactive BS. dressings dry EXTREMITIES: No edema or cyanosis. SKIN: No rash. Rectal wound clean NEUROLOGIC: Alert, responds appropriately RUE-PICC (12/23) clean Labs Lab Laboratory Tests Test 12/25/18 11:15 12/25/18 11:36 12/25/18 16:00 12/25/18 16:12 Lactic Acid Level 0.9 mmol/L (0.4-2.0) Glucose (Fingerstick) 152 mg/dL (70-99) 159 mg/dL (70-99) Ammonia < 10 mcmol/L (11-34) Test 12/26/18 00:29 12/26/18 05:30 Glucose (Fingerstick) 171 mg/dL (70-99) White Blood Count 10.1 x10^3/uL (4.0-11.0) Red Blood Count 3.39 x10^6/uL (3.50-5.40) Hemoglobin 8.0 g/dL (12.0-15.5) Hematocrit 26.6 % (36.0-47.0) Mean Corpuscular Volume 79 fL (79-100) Mean Corpuscular Hemoglobin 24 pg (25-35) Mean Corpuscular Hemoglobin Concent 30 g/dL (31-37) Red Cell Distribution Width 23.1 % (11.5-14.5) Platelet Count 250 x10^3/uL (140-400) Neutrophils (%) (Auto) 75 % (31-73) Lymphocytes (%) (Auto) 14 % (24-48) Monocytes (%) (Auto) 10 % (0-9) Eosinophils (%) (Auto) 1 % (0-3) Basophils (%) (Auto) 1 % (0-3) Neutrophils # (Auto) 7.5 x10^3uL (1.8-7.7) Lymphocytes # (Auto) 1.4 x10^3/uL (1.0-4.8) Monocytes # (Auto) 1.0 x10^3/uL (0.0-1.1) Eosinophils # (Auto) 0.1 x10^3/uL (0.0-0.7) Basophils # (Auto) 0.1 x10^3/uL (0.0-0.2) Sodium Level 142 mmol/L (136-145) Potassium Level 4.4 mmol/L (3.5-5.1) Chloride Level 109 mmol/L (98-107) Carbon Dioxide Level 25 mmol/L (21-32) Anion Gap 8 (6-14) Blood Urea Nitrogen 27 mg/dL (7-20) Creatinine 0.7 mg/dL (0.6-1.0) Estimated GFR (Cockcroft-Gault) 98.7 Glucose Level 151 mg/dL (70-99) Calcium Level 9.4 mg/dL (8.5-10.1) Phosphorus Level 4.1 mg/dL (2.6-4.7) Magnesium Level 2.1 mg/dL (1.8-2.4) Micro Microbiology 12/21/18 Blood Culture - Preliminary, Resulted NO GROWTH AFTER 4 DAYS Objective Assessment ? Sepsis,, normal lactic acid, BC neg Leukocytosis post surgery and then leukopenia, no fever; improved S/P laparoscopic-assisted right colon resection and hemorrhoidectomy on 2018 for bleeding cecal ulcer and hemorrhoids; path negative for malignancy . COPD Pneumonia Ileus Anemia Plan Plan of Care Cefepime Sputum C & S D/w RN D/w daughter Patient seen, examined, I agree with above assessment and plan HERSON PARSON APRN Dec 26, 2018 10:50 MICHAEL SALINAS MD Dec 26, 2018 14:14
--- NOTE | 2018-12-26 10:53 | PDOC ---
PULMONARY PROGRESS NOTES Subjective more awake, mild increase soa Vitals Vital Signs Date Time Temp Pulse Resp B/P (MAP) Pulse Ox O2 Delivery O2 Flow Rate FiO2 12/26/18 10:26 Nasal Cannula 3.0 12/26/18 10:01 85 138/92 12/26/18 07:15 99 12/26/18 07:00 98.4 16 98.4 General: Alert, No acute distress Lungs: Clear Cardiovascular: S1 Abdomen: Soft, Other (distended) Extremities: No Edema Skin: Warm Labs Laboratory Tests Test 12/24/18 10:57 12/24/18 17:21 12/24/18 20:07 12/25/18 05:45 Glucose (Fingerstick) 177 mg/dL (70-99) 165 mg/dL (70-99) 166 mg/dL (70-99) Sodium Level 145 mmol/L (136-145) Potassium Level 4.3 mmol/L (3.5-5.1) Chloride Level 111 mmol/L (98-107) Carbon Dioxide Level 26 mmol/L (21-32) Anion Gap 8 (6-14) Blood Urea Nitrogen 29 mg/dL (7-20) Creatinine 0.8 mg/dL (0.6-1.0) Estimated GFR (Cockcroft-Gault) 84.6 Glucose Level 171 mg/dL (70-99) Calcium Level 9.5 mg/dL (8.5-10.1) Phosphorus Level 3.2 mg/dL (2.6-4.7) Magnesium Level 2.3 mg/dL (1.8-2.4) Test 12/25/18 07:20 12/25/18 10:30 12/25/18 11:15 12/25/18 11:36 Glucose (Fingerstick) 152 mg/dL (70-99) 152 mg/dL (70-99) O2 Saturation 93 % (92-99) Arterial Blood pH 7.46 (7.35-7.45) Arterial Blood pCO2 at Patient Temp 35 mmHg (35-46) Arterial Blood pO2 at Patient Temp 66 mmHg (65-108) Arterial Blood HCO3 24 mmol/L (21-28) Arterial Blood Base Excess 0 mmol/L (-3-3) FiO2 2 lpm nc Lactic Acid Level 0.9 mmol/L (0.4-2.0) Test 12/25/18 16:00 12/25/18 16:12 12/26/18 00:29 12/26/18 05:30 Ammonia < 10 mcmol/L (11-34) Glucose (Fingerstick) 159 mg/dL (70-99) 171 mg/dL (70-99) White Blood Count 10.1 x10^3/uL (4.0-11.0) Red Blood Count 3.39 x10^6/uL (3.50-5.40) Hemoglobin 8.0 g/dL (12.0-15.5) Hematocrit 26.6 % (36.0-47.0) Mean Corpuscular Volume 79 fL (79-100) Mean Corpuscular Hemoglobin 24 pg (25-35) Mean Corpuscular Hemoglobin Concent 30 g/dL (31-37) Red Cell Distribution Width 23.1 % (11.5-14.5) Platelet Count 250 x10^3/uL (140-400) Neutrophils (%) (Auto) 75 % (31-73) Lymphocytes (%) (Auto) 14 % (24-48) Monocytes (%) (Auto) 10 % (0-9) Eosinophils (%) (Auto) 1 % (0-3) Basophils (%) (Auto) 1 % (0-3) Neutrophils # (Auto) 7.5 x10^3uL (1.8-7.7) Lymphocytes # (Auto) 1.4 x10^3/uL (1.0-4.8) Monocytes # (Auto) 1.0 x10^3/uL (0.0-1.1) Eosinophils # (Auto) 0.1 x10^3/uL (0.0-0.7) Basophils # (Auto) 0.1 x10^3/uL (0.0-0.2) Sodium Level 142 mmol/L (136-145) Potassium Level 4.4 mmol/L (3.5-5.1) Chloride Level 109 mmol/L (98-107) Carbon Dioxide Level 25 mmol/L (21-32) Anion Gap 8 (6-14) Blood Urea Nitrogen 27 mg/dL (7-20) Creatinine 0.7 mg/dL (0.6-1.0) Estimated GFR (Cockcroft-Gault) 98.7 Glucose Level 151 mg/dL (70-99) Calcium Level 9.4 mg/dL (8.5-10.1) Phosphorus Level 4.1 mg/dL (2.6-4.7) Magnesium Level 2.1 mg/dL (1.8-2.4) Laboratory Tests Test 12/25/18 11:15 12/25/18 11:36 12/25/18 16:00 12/25/18 16:12 Lactic Acid Level 0.9 mmol/L (0.4-2.0) Glucose (Fingerstick) 152 mg/dL (70-99) 159 mg/dL (70-99) Ammonia < 10 mcmol/L (11-34) Test 12/26/18 00:29 12/26/18 05:30 Glucose (Fingerstick) 171 mg/dL (70-99) White Blood Count 10.1 x10^3/uL (4.0-11.0) Red Blood Count 3.39 x10^6/uL (3.50-5.40) Hemoglobin 8.0 g/dL (12.0-15.5) Hematocrit 26.6 % (36.0-47.0) Mean Corpuscular Volume 79 fL (79-100) Mean Corpuscular Hemoglobin 24 pg (25-35) Mean Corpuscular Hemoglobin Concent 30 g/dL (31-37) Red Cell Distribution Width 23.1 % (11.5-14.5) Platelet Count 250 x10^3/uL (140-400) Neutrophils (%) (Auto) 75 % (31-73) Lymphocytes (%) (Auto) 14 % (24-48) Monocytes (%) (Auto) 10 % (0-9) Eosinophils (%) (Auto) 1 % (0-3) Basophils (%) (Auto) 1 % (0-3) Neutrophils # (Auto) 7.5 x10^3uL (1.8-7.7) Lymphocytes # (Auto) 1.4 x10^3/uL (1.0-4.8) Monocytes # (Auto) 1.0 x10^3/uL (0.0-1.1) Eosinophils # (Auto) 0.1 x10^3/uL (0.0-0.7) Basophils # (Auto) 0.1 x10^3/uL (0.0-0.2) Sodium Level 142 mmol/L (136-145) Potassium Level 4.4 mmol/L (3.5-5.1) Chloride Level 109 mmol/L (98-107) Carbon Dioxide Level 25 mmol/L (21-32) Anion Gap 8 (6-14) Blood Urea Nitrogen 27 mg/dL (7-20) Creatinine 0.7 mg/dL (0.6-1.0) Estimated GFR (Cockcroft-Gault) 98.7 Glucose Level 151 mg/dL (70-99) Calcium Level 9.4 mg/dL (8.5-10.1) Phosphorus Level 4.1 mg/dL (2.6-4.7) Magnesium Level 2.1 mg/dL (1.8-2.4) Medications Active Scripts Medications Dose Route/Sig Max Daily Dose Days Date Category Chlorhexidine Gluconate 473 Ml Mouthwash 473 Ml MM BID 7 12/10/18 Rx Vitamin C (Ascorbate Calcium) 500 Mg Tablet 500 Mg PO DAILY 30 11/22/18 Rx Slow Release Iron (Ferrous Sulfate) 250 Mg Tablet.er 250 Mg PO DAILY 30 11/22/18 Rx Protonix (Pantoprazole Sodium) 40 Mg Granpkt.dr 40 Mg PO DAILY 30 11/22/18 Rx Metformin Hcl Er (Metformin Hcl) 500 Mg Tab.er.24h 1 Tab PO DAILY 11/12/16 Reported Namenda (Memantine Hcl) 10 Mg Tablet 1 Tab PO BID 11/12/16 Reported Losartan Potassium 100 Mg Tablet 100 Mg PO DAILY 11/12/16 Reported Spironolactone 25 Mg Tablet 1 Tab PO DAILY 11/12/16 Reported Ventolin Hfa Inhaler (Albuterol Sulfate) 18 Gm Hfa.aer.ad 2 Puff INH Q4HRS 11/11/16 Reported Cymbalta (Duloxetine Hcl) 20 Mg Capsule.dr 90 Mg PO DAILY 01/27/16 Reported Requip (Ropinirole Hcl) 1 Mg Tablet 3 Mg PO DAILY 01/27/16 Reported Amlodipine Besylate 10 Mg Tablet 10 Mg PO DAILY 01/27/16 Reported Impression . 1. Acute hypoxic respiratory failure secondary to underlying chronic obstructive pulmonary disease and increasing abdominal distention related to postop ileus. no sig BM per RN 2. Gastrointestinal bleed/cecal ulceration by colonoscopy, status post laparoscopic-assisted right colon resection and hemorrhoidectomy. 3. Postoperative ileus. 4. Underlying chronic obstructive pulmonary disease. 5. Abnormal CT chest with focal opacity in the right upper lobe, could be nodule. Needs to have a followup in 4-6 months. She also has bibasilar atelectasis, caused by abdominal distention. Clinically, less likely pneumonia. Plan . 1. Continue with present oxygen. ABG 12/25 reviewed.no sig hypercapnia 2. Continue bronchodilators. 3. DVT prophylaxis. 4. Antibiotics. 5. Bowel decompression per Surgery and GI. 6. ABGs are adequate, we will watch respiratory status closely. 7. p.r.n. BiPAP if needed. 8. Discussed with RN/ son. Minimize narcotic dose 9. repeat CXR today JEF CARLIN MD Dec 26, 2018 10:53
[2018-12-26 11:00] VITALS: BP 144/72
[2018-12-26] MEDS: TPN PER PHARMACY MC PRN (12:03)
--- NOTE | 2018-12-26 12:04 | NUR ---
Pharmacy TPN Dosing Note S: ELLE LATHAM is a 72 year old F Currently receiving Central Continuous TPN started 12/23/18 B:Pertinent PMH: SBO Height: 5 feet, 7 inches Weight: 85.062242 kg Current diet: npo LABS: Sodium: 142 Potassium: 4.4 Chloride: 109 Calcium: 9.4 Corrected Calcium: 10.60 Magnesium: 2.1 CO2: 25 SCr: 0.7 Glucose: 151 Albumin: 2.5 AST: 12 ALT: 12 TPN FORMULA: TPN TYPE: Central Continuous AMINO ACIDS: 60 gm DEXTROSE: 195 gm LIPIDS: 20 gm SODIUM CHLORIDE: - mEq SODIUM ACETATE: 90 mEq SODIUM PHOSPHATE: - mmol POTASSIUM CHLORIDE: 50 mEq POTASSIUM ACETATE: - mEq POTASSIUM PHOSPHATE: 13.6 mmol MAGNESIUM: 18 mEq CALCIUM: 5 mEq INSULIN: - units MULTIPLE VITAMIN: 10 ml TRACE ELEMENTS: mte5 1 ml ml(s) TPN PLAN: Chloride elevated- convert remaining NaCl to NaAce Phos trending up rapidly- will cut back to 13.6mmol KPhos Labs in the am R: Continue TPN as written above. Will monitor electrolytes, glucose, and tolerance to TPN. RO [facility], 12/26/18 [id number]
--- NOTE | 2018-12-26 12:20 | PDOC ---
PROGRESS NOTES Subjective Subjective seems more alert and comfortable today, no stool, ?small flatus Objective Objective Vital Signs Date Time Temp Pulse Resp B/P (MAP) Pulse Ox O2 Delivery O2 Flow Rate FiO2 12/26/18 10:26 Nasal Cannula 3.0 12/26/18 10:01 85 138/92 12/26/18 07:15 99 12/26/18 07:00 98.4 16 98.4 Intake and Output 12/26/18 07:01 Intake Total 0 ml Balance 0 ml Intake Oral 0 ml # Voids 1 Physical Exam Physical Exam abdomen with some distension Plan Plan of Care Await return of bowel function, recommend minimizing narcotics Comment Review of Relevant I have reviewed the following items abdifatah (where applicable) has been applied. Labs Laboratory Tests Test 12/24/18 17:21 12/24/18 20:07 12/25/18 05:45 12/25/18 07:20 Glucose (Fingerstick) 165 mg/dL (70-99) 166 mg/dL (70-99) 152 mg/dL (70-99) Sodium Level 145 mmol/L (136-145) Potassium Level 4.3 mmol/L (3.5-5.1) Chloride Level 111 mmol/L (98-107) Carbon Dioxide Level 26 mmol/L (21-32) Anion Gap 8 (6-14) Blood Urea Nitrogen 29 mg/dL (7-20) Creatinine 0.8 mg/dL (0.6-1.0) Estimated GFR (Cockcroft-Gault) 84.6 Glucose Level 171 mg/dL (70-99) Calcium Level 9.5 mg/dL (8.5-10.1) Phosphorus Level 3.2 mg/dL (2.6-4.7) Magnesium Level 2.3 mg/dL (1.8-2.4) Test 12/25/18 10:30 12/25/18 11:15 12/25/18 11:36 12/25/18 16:00 O2 Saturation 93 % (92-99) Arterial Blood pH 7.46 (7.35-7.45) Arterial Blood pCO2 at Patient Temp 35 mmHg (35-46) Arterial Blood pO2 at Patient Temp 66 mmHg (65-108) Arterial Blood HCO3 24 mmol/L (21-28) Arterial Blood Base Excess 0 mmol/L (-3-3) FiO2 2 lpm nc Lactic Acid Level 0.9 mmol/L (0.4-2.0) Glucose (Fingerstick) 152 mg/dL (70-99) Ammonia < 10 mcmol/L (11-34) Test 12/25/18 16:12 12/26/18 00:29 12/26/18 05:30 Glucose (Fingerstick) 159 mg/dL (70-99) 171 mg/dL (70-99) White Blood Count 10.1 x10^3/uL (4.0-11.0) Red Blood Count 3.39 x10^6/uL (3.50-5.40) Hemoglobin 8.0 g/dL (12.0-15.5) Hematocrit 26.6 % (36.0-47.0) Mean Corpuscular Volume 79 fL (79-100) Mean Corpuscular Hemoglobin 24 pg (25-35) Mean Corpuscular Hemoglobin Concent 30 g/dL (31-37) Red Cell Distribution Width 23.1 % (11.5-14.5) Platelet Count 250 x10^3/uL (140-400) Neutrophils (%) (Auto) 75 % (31-73) Lymphocytes (%) (Auto) 14 % (24-48) Monocytes (%) (Auto) 10 % (0-9) Eosinophils (%) (Auto) 1 % (0-3) Basophils (%) (Auto) 1 % (0-3) Neutrophils # (Auto) 7.5 x10^3uL (1.8-7.7) Lymphocytes # (Auto) 1.4 x10^3/uL (1.0-4.8) Monocytes # (Auto) 1.0 x10^3/uL (0.0-1.1) Eosinophils # (Auto) 0.1 x10^3/uL (0.0-0.7) Basophils # (Auto) 0.1 x10^3/uL (0.0-0.2) Sodium Level 142 mmol/L (136-145) Potassium Level 4.4 mmol/L (3.5-5.1) Chloride Level 109 mmol/L (98-107) Carbon Dioxide Level 25 mmol/L (21-32) Anion Gap 8 (6-14) Blood Urea Nitrogen 27 mg/dL (7-20) Creatinine 0.7 mg/dL (0.6-1.0) Estimated GFR (Cockcroft-Gault) 98.7 Glucose Level 151 mg/dL (70-99) Calcium Level 9.4 mg/dL (8.5-10.1) Phosphorus Level 4.1 mg/dL (2.6-4.7) Magnesium Level 2.1 mg/dL (1.8-2.4) Laboratory Tests Test 12/25/18 16:00 12/25/18 16:12 12/26/18 00:29 12/26/18 05:30 Ammonia < 10 mcmol/L (11-34) Glucose (Fingerstick) 159 mg/dL (70-99) 171 mg/dL (70-99) White Blood Count 10.1 x10^3/uL (4.0-11.0) Red Blood Count 3.39 x10^6/uL (3.50-5.40) Hemoglobin 8.0 g/dL (12.0-15.5) Hematocrit 26.6 % (36.0-47.0) Mean Corpuscular Volume 79 fL (79-100) Mean Corpuscular Hemoglobin 24 pg (25-35) Mean Corpuscular Hemoglobin Concent 30 g/dL (31-37) Red Cell Distribution Width 23.1 % (11.5-14.5) Platelet Count 250 x10^3/uL (140-400) Neutrophils (%) (Auto) 75 % (31-73) Lymphocytes (%) (Auto) 14 % (24-48) Monocytes (%) (Auto) 10 % (0-9) Eosinophils (%) (Auto) 1 % (0-3) Basophils (%) (Auto) 1 % (0-3) Neutrophils # (Auto) 7.5 x10^3uL (1.8-7.7) Lymphocytes # (Auto) 1.4 x10^3/uL (1.0-4.8) Monocytes # (Auto) 1.0 x10^3/uL (0.0-1.1) Eosinophils # (Auto) 0.1 x10^3/uL (0.0-0.7) Basophils # (Auto) 0.1 x10^3/uL (0.0-0.2) Sodium Level 142 mmol/L (136-145) Potassium Level 4.4 mmol/L (3.5-5.1) Chloride Level 109 mmol/L (98-107) Carbon Dioxide Level 25 mmol/L (21-32) Anion Gap 8 (6-14) Blood Urea Nitrogen 27 mg/dL (7-20) Creatinine 0.7 mg/dL (0.6-1.0) Estimated GFR (Cockcroft-Gault) 98.7 Glucose Level 151 mg/dL (70-99) Calcium Level 9.4 mg/dL (8.5-10.1) Phosphorus Level 4.1 mg/dL (2.6-4.7) Magnesium Level 2.1 mg/dL (1.8-2.4) Microbiology 12/21/18 Blood Culture - Final, Complete NO GROWTH AFTER 5 DAYS Medications Current Medications Sodium Chloride 1,000 ml @ 1,000 mls/hr 1X ONCE IV Last administered on 13:52; Start 12/14/18 at 13:30; Stop 12/14/18 at 14:29; Status DC Amlodipine Besylate (Norvasc) 10 mg DAILY PO Last administered on 12/26/18 10: 01; Start 12/14/18 at 17:00 Chlorhexidine Gluconate (Peridex) 15 ml BID MM Last administered on 12/26/18 09:59; Start 12/14/18 at 21:00 Non-Formulary Medication (Albuterol Sulfate (Ventolin Hfa Inhaler)) 2 puff Q4HRS INH ; Start 12/14/18 at 20:00; Status UNV Ascorbic Acid (Vitamin C) 500 mg DAILY PO Last administered on 12/22/18 10:30; Start 12/14/18 at 17:00 Duloxetine HCl (Cymbalta) 90 mg DAILY PO Last administered on 12/22/18 10:30; Start 12/14/18 at 17:00 Ferrous Sulfate (Feosol) 325 mg DAILYWBKFT PO Last administered on 12/22/18 10: 30; Start 12/14/18 at 17:00 Losartan Potassium (Cozaar) 100 mg DAILY PO Last administered on 12/22/18 10:29 ; Start 12/14/18 at 17:00 Memantine (Namenda) 10 mg BID PO Last administered on 2/9/19at 21:13; Start at 21:00 Pantoprazole Sodium (Protonix) 40 mg DAILYAC PO Last administered on 12/22/18 05:28; Start 12/14/18 at 17:00; Stop 12/24/18 at 09:25; Status DC Ropinirole HCl (Requip) 3 mg QHS PO Last administered on 12/25/18at 21:13; Start 12/14/18 at 21:00 Spironolactone (Aldactone) 25 mg DAILY PO Last administered on 12/26/18at 10:42 ; Start 12/14/18 at 17:00 Albuterol Sulfate (Ventolin Neb Soln) 2.5 mg Q4HRS NEB Last administered on 07:15; Start 12/14/18 at 20:00 Sodium Chloride 1,000 ml @ 80 mls/hr [id number] IV Last administered on 12/23/18at 15:25; Start 12/14/18 at 17:15; Stop 12/23/18 at 21:59; Status DC Acetaminophen (Tylenol) 650 mg PRN Q6HRS PRN PO Pain Last administered on 21:27; Start 12/15/18 at 04:45 Polyethylene Glycol (miraLAX Powder BULK BOTTLE) 238 gm 1X ONCE PO Last administered on 12/15/18at 12:48; Start 12/15/18 at 12:00; Stop 12/15/18 at 12:01 ; Status DC Ondansetron HCl (Zofran) 4 mg PRN Q6HRS PRN IV NAUSEA/VOMITING; Start 12/16/18 at 07:00; Stop 12/17/18 at 06:59; Status DC Fentanyl Citrate (Fentanyl 2ml Vial) 25 mcg PRN Q5MIN PRN IV MILD PAIN; Start 12/16/18 at 07:00; Stop 12/16/18 at 16:33; Status DC Fentanyl Citrate (Fentanyl 2ml Vial) 50 mcg PRN Q5MIN PRN IV MODERATE TO SEVERE PAIN; Start 12/16/18 at 07:00; Stop 12/16/18 at 16:33; Status DC Morphine Sulfate (Morphine Sulfate) 1 mg PRN Q10MIN PRN IV SEVERE PAIN; Start 12/16/18 at 07:00; Stop 12/17/18 at 06:59; Status DC Ringer's Solution 1,000 ml @ 30 mls/hr Q24H IV Last administered on 12/16/18at 13:00; Start 12/16/18 at 07:00; Stop 12/16/18 at 18:59; Status DC Lidocaine HCl (Xylocaine-Mpf 1% 2ml Vial) 2 ml PRN 1X PRN ID IV START; Start at 07:00; Stop 12/17/18 at 06:59; Status DC Hydromorphone HCl (Dilaudid) 0.5 mg PRN Q10MIN PRN IV SEV PAIN, Second choice; Start 12/16/18 at 07:00; Stop 12/17/18 at 06:59; Status DC Prochlorperazine Edisylate (Compazine) 5 mg PACU PRN PRN IV NAUSEA, MRX1; Start 12/16/18 at 07:00; Stop 12/17/18 at 06:59; Status DC Midazolam HCl (Versed) 2 mg PRN 1X PRN IV PRIOR TO PROCEDURE; Start 12/16/18 at 07:15; Stop 12/17/18 at 07:14; Status DC Fentanyl Citrate (Fentanyl 2ml Vial) 25 mcg PRN Q5MIN PRN IV X 2 DOSES FOR PAIN ; Start 12/16/18 at 07:15; Stop 12/16/18 at 16:33; Status DC Fentanyl Citrate (Fentanyl 2ml Vial) 50 mcg PRN Q5MIN PRN IV X 2 DOSES FOR PAIN ; Start 12/16/18 at 07:15; Stop 12/16/18 at 16:34; Status DC Ringer's Solution 1,000 ml @ 125 mls/hr Q8H IV ; Start 12/16/18 at 07:13; Stop 12/16/18 at 19:12; Status DC Lidocaine HCl (Xylocaine-Mpf 1% 2ml Vial) 2 ml 1X PRN PRN ID IV START; Start at 07:15; Stop 12/17/18 at 07:14; Status DC Propofol 40 ml @ As Directed STK-MED ONCE IV ; Start 12/16/18 at 13:58; Stop at 14:00; Status DC Prochlorperazine Edisylate (Compazine) 5 mg PACU PRN PRN IV NAUSEA, MRX1; Start 12/17/18 at 07:00; Stop 12/18/18 at 06:59; Status DC Hydromorphone HCl (Dilaudid) 0.5 mg PRN Q10MIN PRN IV SEV PAIN, Second choice; Start 12/17/18 at 07:00; Stop 12/18/18 at 06:59; Status DC Lidocaine HCl (Xylocaine-Mpf 1% 2ml Vial) 2 ml PRN 1X PRN ID IV START; Start at 07:00; Stop 12/18/18 at 06:59; Status DC Ringer's Solution 1,000 ml @ 30 mls/hr Q24H IV Last administered on 12/17/18at 10:34; Start 12/17/18 at 07:00; Stop 12/17/18 at 18:59; Status DC Morphine Sulfate (Morphine Sulfate) 1 mg PRN Q10MIN PRN IV SEVERE PAIN; Start 12/17/18 at 07:00; Stop 12/18/18 at 06:59; Status DC Fentanyl Citrate (Fentanyl 2ml Vial) 50 mcg PRN Q5MIN PRN IV MODERATE TO SEVERE PAIN Last administered on 12/17/18at 11:13; Start 12/17/18 at 07:00; Stop at 06:59; Status DC Fentanyl Citrate (Fentanyl 2ml Vial) 25 mcg PRN Q5MIN PRN IV MILD PAIN; Start 12/17/18 at 07:00; Stop 12/18/18 at 06:59; Status DC Ondansetron HCl (Zofran) 4 mg PRN Q6HRS PRN IV NAUSEA/VOMITING; Start 12/17/18 at 07:00; Stop 12/18/18 at 06:59; Status DC Propofol 20 ml @ As Directed STK-MED ONCE IV ; Start 12/17/18 at 07:21; Stop 12/17 at 07:23; Status DC Albuterol Sulfate (Ventolin Neb Soln) 2.5 mg 1X ONCE NEB ; Start 12/17/18 at 07: 30; Stop 12/17/18 at 07:31; Status DC Lidocaine HCl (Lidocaine Pf 2% Vial) 5 ml STK-MED ONCE .ROUTE ; Start 12/17/18 at 07:21; Stop 12/17/18 at 07:23; Status DC Succinylcholine Chloride (Anectine) 200 mg STK-MED ONCE .ROUTE ; Start 12/17/18 at 07:21; Stop 12/17/18 at 07:23; Status DC Rocuronium Banks (Zemuron) 50 mg STK-MED ONCE .ROUTE ; Start 12/17/18 at 07:21 ; Stop 12/17/18 at 07:23; Status DC Fentanyl Citrate (Fentanyl 2ml Vial) 100 mcg STK-MED ONCE .ROUTE ; Start at 07:21; Stop 12/17/18 at 07:24; Status DC Cefazolin Sodium/ Dextrose 50 ml @ 100 mls/hr 1X ONCE IV Last administered on 12/17/18at 08:07; Start 12/17/18 at 07:45; Stop 12/17/18 at 08:18; Status DC Bupivacaine HCl/ Epinephrine Bitart (Sensorcain-Mpf Epi 0.5%-1:[id number]) 30 ml STK -MED ONCE .ROUTE Last administered on 12/17/18at 08:34; Start 12/17/18 at 07:46; Stop 12/17/18 at 07:49; Status DC Neomycin/ Polymyxin/ Bacitracin (Triple Antibiotic Ointment) 1 pkt STK-MED ONCE TP Last administered on 12/17/18at 10:07; Start 12/17/18 at 07:46; Stop 12/17/18 at 07:49; Status DC Neomycin/ Polymyxin/ Bacitracin (Triple Antibiotic Ointment) 1 pkt STK-MED ONCE TP Last administered on 12/17/18at 10:07; Start 12/17/18 at 07:46; Stop 12/17/18 at 07:49; Status DC Neomycin/ Polymyxin/ Bacitracin (Triple Antibiotic Ointment) 1 pkt STK-MED ONCE TP ; Start 12/17/18 at 07:47; Stop 12/17/18 at 07:49; Status DC Dexamethasone Sodium Phosphate (Decadron) 20 mg STK-MED ONCE .ROUTE ; Start 12/17 at 07:54; Stop 12/17/18 at 07:56; Status DC Hydrocortisone Sodium Succinate (Solu-CORTEF) 100 mg STK-MED ONCE .ROUTE ; Start 12/17/18 at 07:54; Stop 12/17/18 at 07:56; Status DC Desflurane (Suprane) 90 ml STK-MED ONCE IH ; Start 12/17/18 at 07:54; Stop at 07:56; Status DC Neostigmine Methylsulfate (Bloxiverz) 10 mg STK-MED ONCE .ROUTE ; Start 12/17/18 at 08:21; Stop 12/17/18 at 08:24; Status DC Glycopyrrolate (Robinul) 1 mg STK-MED ONCE .ROUTE ; Start 12/17/18 at 08:21; Stop 12/17/18 at 08:24; Status DC Phenylephrine HCl (Bogdan-Synephrine Inj) 10 mg STK-MED ONCE .ROUTE ; Start at 08:23; Stop 12/17/18 at 08:26; Status DC Desflurane (Suprane) 60 ml STK-MED ONCE IH ; Start 12/17/18 at 09:23; Stop at 09:26; Status DC Bupivacaine HCl/ Epinephrine Bitart (Sensorcain-Mpf Epi 0.5%-1:[id number]) 30 ml STK -MED ONCE .ROUTE Last administered on 12/17/18at 10:06; Start 12/17/18 at 09:41; Stop 12/17/18 at 09:43; Status DC Morphine Sulfate (Morphine Sulfate) 2 mg PRN Q2HR PRN IV PAIN Last administered on 12/25/18at 09:26; Start 12/17/18 at 10:15; Stop 12/25/18 at 17:54; Status DC Ketorolac Tromethamine (Toradol 15mg Vial) 15 mg Q6HRS IV Last administered on 12/18/18at 05:39; Start 12/17/18 at 12:00; Stop 12/18/18 at 10:00; Status DC Artificial Tears (Artificial Tears) 1 drop PRN Q15MIN PRN OU DRY EYE Last administered on 12/20/18at 21:28; Start 12/18/18 at 08:00 Docusate Sodium (Colace) 100 mg DAILY PO Last administered on 12/26/18at 10:01; Start 12/18/18 at 10:00 Throat Lozenges (Cepacol Sore Throat Lozenge) 1 kristyn PRN Q2HRS PRN PO SORE THROAT Last administered on 12/26/18 10:01; Start 12/18/18 at 14:00 Enoxaparin Sodium (Lovenox 40mg Syringe) 40 mg Q24H SQ Last administered on 10:01; Start 12/19/18 at 09:00 Ondansetron HCl (Zofran) 4 mg PRN Q6HRS PRN IV NAUSEA/VOMITING Last administered on 12/23/18 10:49; Start 12/19/18 at 11:30 Insulin Human Lispro (HumaLOG) 0-5 UNITS TIDWMEALS SQ ; Start 12/19/18 at 17:00 Dextrose (Dextrose 50%-Water Syringe) 12.5 gm PRN Q15MIN PRN IV SEE COMMENTS; Start 12/19/18 at 16:45 Levofloxacin/ Dextrose 100 ml @ 100 mls/hr 1X ONCE IV Last administered on 20:56; Start 12/19/18 at 21:00; Stop 12/19/18 at 21:59; Status DC Cefepime HCl (Maxipime) 2 gm Q12HR IVP Last administered on 12/26/18 09:59; Start 12/21/18 at 10:00 Sodium Chloride 1,000 ml @ 125 mls/hr 1X ONCE IV Last administered on 10:43; Start 12/21/18 at 09:45; Stop 12/21/18 at 17:44; Status DC Calcium Carbonate/ Glycine (Tums) 500 mg PRN AFTMEALHC PRN PO INDIGESTION Last administered on 12/21/18 13:10; Start 12/21/18 at 12:15 Lorazepam (Ativan) 1 mg 1X ONCE IV Last administered on 12/21/18 17:50; Start 12/21/18 at 17:30; Stop 12/21/18 at 17:31; Status DC Albuterol Sulfate (Ventolin Neb Soln) 2.5 mg PRN Q2HRS PRN NEB SHORTNESS OF BREATH Last administered on 12/26/18 10:26; Start 12/21/18 at 17:30 Nicotine (Nicoderm Cq 14mg) 1 patch PRN DAILY PRN TD SMOKING CESSATION Last administered on 12/26/18 09:59; Start 12/21/18 at 19:30 Lorazepam (Ativan) 1 mg 1X ONCE IV Last administered on 12/21/18at 23:45; Start 12/21/18 at 23:45; Stop 12/21/18 at 23:46; Status DC Lorazepam (Ativan) 1 mg PRN Q4HRS PRN IV ANXIETY / AGITATION Last administered on 12/22/18 11:15; Start 12/21/18 at 23:30; Stop 12/22/18 at 14:42; Status DC Sodium Chloride 1,000 ml @ 250 mls/hr 1X ONCE IV Last administered on 09:15; Start 12/22/18 at 09:15; Stop 12/22/18 at 13:14; Status DC Lidocaine/Sodium Bicarbonate (Buffered Lidocaine 1%) 3 ml STK-MED ONCE .ROUTE ; Start 12/23/18 at 10:33; Stop 12/23/18 at 10:35; Status DC Lidocaine/Sodium Bicarbonate (Buffered Lidocaine 1%) 3 ml 1X ONCE INJ Last administered on 12/23/18at 11:24; Start 12/23/18 at 11:00; Stop 12/23/18 at 11:10; Status DC Info (Tpn Per Pharmacy) 1 each PRN DAILY PRN MC SEE COMMENTS Last administered on 12/26/18at 12:03; Start 12/23/18 at 14:00 Sodium Chloride 90 meq/Potassium Chloride 50 meq/ Potassium Phosphate 20.4 mmol/ Magnesium Sulfate 18 meq/ Calcium Gluconate 5 meq/ Multivitamins 10 ml/Chromium / Copper/Manganese/ Seleni/Zn 1 ml/ Total Parenteral Nutrition/Amino Acids/ Dextrose/ Fat Emulsion Intravenous 1,512 ml @ 63 mls/hr TPN CONT IV Last administered on 12/23/18at 21:37; Start 12/23/18 at 22:00; Stop 12/24/18 at 21:59; Status DC Alprazolam (Xanax) 0.25 mg PRN BID PRN PO ANXIETY / AGITATION Last administered on 12/25/18at 09:25; Start 12/23/18 at 23:00; Stop 12/25/18 at 17:54; Status DC Lorazepam (Ativan) 1 mg PRN Q4HRS PRN IV ANXIETY / AGITATION Last administered on 12/24/18at 09:21; Start 12/24/18 at 08:45; Stop 12/24/18 at 10:19; Status DC Pantoprazole Sodium (PROTONIX VIAL for IV PUSH) 40 mg DAILYAC IVP Last administered on 12/26/18at 06:07; Start 12/24/18 at 09:30 Lorazepam (Ativan) 0.5 mg PRN Q4HRS PRN IV ANXIETY / AGITATION Last administered on 12/25/18at 04:47; Start 12/24/18 at 10:30; Stop 12/25/18 at 10:22; Status DC Sodium Chloride 45 meq/Sodium Acetate 45 meq/ Potassium Chloride 50 meq/ Potassium Phosphate 20.4 mmol/Magnesium Sulfate 18 meq/ Calcium Gluconate 5 meq / Multivitamins 10 ml/Chromium/ Copper/Manganese/ Seleni/Zn 1 ml/ Total Parenteral Nutrition/Amino Acids/Dextrose/ Fat Emuls... 1,512 ml @ 63 mls/hr TPN CONT IV Last administered on 12/24/18at 21:57; Start 12/24/18 at 22:00; Stop 12/25/18 at 21:59; Status DC Phenyleph/Shark Oil/Min Oil/Petrol (Preparation H) 1 ranjith PRN Q4HRS PRN RC RECTAL PAIN; Start 12/24/18 at 12:45; Stop 12/25/18 at 20:20; Status DC Sodium Chloride 45 meq/Sodium Acetate 45 meq/ Potassium Chloride 50 meq/ Potassium Phosphate 20.4 mmol/Magnesium Sulfate 18 meq/ Calcium Gluconate 5 meq / Multivitamins 10 ml/Chromium/ Copper/Manganese/ Seleni/Zn 1 ml/ Total Parenteral Nutrition/Amino Acids/Dextrose/ Fat Emuls... 1,512 ml @ 63 mls/hr TPN CONT IV Last administered on 12/26/18at 00:34; Start 12/25/18 at 22:00; Stop 12/26/18 at 21:59 Neomycin/ Polymyxin/ Bacitracin (Triple Antibiotic Ointment) 1 pkt PRN TID PRN TP skin around rectum, post op Last administered on 12/26/18at 09:58; Start at 14:30 Alprazolam (Xanax) 0.25 mg PRN Q8HRS PRN PO ANXIETY / AGITATION Last administered on 12/26/18at 09:59; Start 12/25/18 at 18:00 Morphine Sulfate (Morphine Sulfate) 2 mg PRN Q6HRS PRN IV PAIN Last administered on 12/26/18at 06:51; Start 12/25/18 at 18:00 Guaifenesin (Mucinex) 600 mg BID PO ; Start 12/26/18 at 11:00 Guaifenesin (Mucinex) 600 mg BID PO ; Start 12/26/18 at 11:00; Status UNV Guaifenesin/ Codeine Phosphate (Robitussin Ac) 5 ml PRN Q6HRS PRN PO COUGH Last administered on 12/26/18at 10:41; Start 12/26/18 at 10:30 Sodium Acetate 90 meq/Potassium Chloride 50 meq/ Potassium Phosphate 13.6 mmol/ Magnesium Sulfate 18 meq/ Calcium Gluconate 5 meq/ Multivitamins 10 ml/Chromium / Copper/Manganese/ Seleni/Zn 1 ml/ Total Parenteral Nutrition/Amino Acids/ Dextrose/ Fat Emulsion Intravenous 1,512 ml @ 63 mls/hr TPN CONT IV ; Start at 22:00; Stop 12/27/18 at 21:59 Active Scripts Active Chlorhexidine Gluconate 473 Ml Mouthwash 473 Ml MM BID 7 Days Vitamin C (Ascorbate Calcium) 500 Mg Tablet 500 Mg PO DAILY 30 Days Slow Release Iron (Ferrous Sulfate) 250 Mg Tablet.er 250 Mg PO DAILY 30 Days Protonix (Pantoprazole Sodium) 40 Mg Nav. 40 Mg PO DAILY 30 Days Reported Alprazolam 0.25 Mg Tablet 0.25 Mg PO DAILY Metformin Hcl Er (Metformin Hcl) 500 Mg Tab.er.24h 1 Tab PO DAILY Namenda (Memantine Hcl) 10 Mg Tablet 1 Tab PO BID Losartan Potassium 100 Mg Tablet 100 Mg PO DAILY Spironolactone 25 Mg Tablet 1 Tab PO DAILY Ventolin Hfa Inhaler (Albuterol Sulfate) 18 Gm Hfa.aer.ad 2 Puff INH Q4HRS Cymbalta (Duloxetine Hcl) 20 Mg Capsule. 90 Mg PO DAILY Requip (Ropinirole Hcl) 1 Mg Tablet 3 Mg PO DAILY Amlodipine Besylate 10 Mg Tablet 10 Mg PO DAILY Vitals/I & O Vital Sign - Last 24 Hours 2/08/0412/25/18 12/25/18 12/25/18 15:00 15:45 18:26 19:00 Temp 98.1 97.9 98.1 97.9 Pulse 95 94 Resp 17 18 B/P (MAP) 115/73 (87) 114/68 (83) Pulse Ox 96 98 98 95 O2 Delivery Nasal Cannula Nasal Cannula Nasal Cannula Nasal Cannula O2 Flow Rate 3.0 3.0 3.0 3.0 12/25/18 12/25/18 12/25/18 12/25/18 19:07 20:00 23:00 23:16 Temp 98.4 98.4 Pulse 93 Resp 22 B/P (MAP) 118/72 (87) Pulse Ox 97 100 O2 Delivery Nasal Cannula Nasal Cannula Nasal Cannula Nasal Cannula O2 Flow Rate 3.0 3.0 3.0 3.0 12/26/18 12/26/18 12/26/18 12/26/18 00:33 01:03 03:00 03:00 Temp 97.7 97.7 Pulse 85 Resp 20 18 20 B/P (MAP) 128/80 (96) Pulse Ox 100 100 97 100 O2 Delivery Nasal Cannula Nasal Cannula Nasal Cannula Nasal Cannula O2 Flow Rate 3.0 3.0 3.0 3.0 12/26/18 12/26/18 12/26/18 12/26/18 06:51 07:00 07:15 10:01 Temp 98.4 98.4 Pulse 85 85 Resp 20 16 B/P (MAP) 138/92 (107) 138/92 Pulse Ox 100 95 99 O2 Delivery Nasal Cannula Nasal Cannula Nasal Cannula O2 Flow Rate 3.0 3.0 3.0 12/26/18 10:26 O2 Delivery Nasal Cannula O2 Flow Rate 3.0 Intake and Output 12/25/18 12/25/18 12/26/18 15:01 23:01 07:01 Intake Total 0 ml 0 ml Balance 0 ml 0 ml ELIZABETH BUTCHER MD Dec 26, 2018 12:20
--- NOTE | 2018-12-26 13:42 | RAD ---
CHEST PA LATERAL CLINICAL INDICATION: Coughing up yellow mucus. COMPARISON: 12/21/2018 FINDINGS: Stable rightward mediastinal shift. Tip of the PICC line is in the SVC. Stable elevation of left hemidiaphragm with loss of left lung volume. Mild patchy opacities seen in the left lung base. No pneumothorax or large pleural effusion. Visualized bony thorax is within normal limits. IMPRESSION: 1. Mild patchy opacity in the left lung base may be secondary to subsegmental atelectasis, aspiration or pneumonia. Electronically signed by: Gabe Madden DO (12/26/2018 1:37 PM) [facility]
--- NOTE | 2018-12-26 13:56 | PDOC ---
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 Labs Laboratory Tests Test 12/24/18 17:21 12/24/18 20:07 12/25/18 05:45 12/25/18 07:20 Glucose (Fingerstick) 165 mg/dL (70-99) 166 mg/dL (70-99) 152 mg/dL (70-99) Sodium Level 145 mmol/L (136-145) Potassium Level 4.3 mmol/L (3.5-5.1) Chloride Level 111 mmol/L (98-107) Carbon Dioxide Level 26 mmol/L (21-32) Anion Gap 8 (6-14) Blood Urea Nitrogen 29 mg/dL (7-20) Creatinine 0.8 mg/dL (0.6-1.0) Estimated GFR (Cockcroft-Gault) 84.6 Glucose Level 171 mg/dL (70-99) Calcium Level 9.5 mg/dL (8.5-10.1) Phosphorus Level 3.2 mg/dL (2.6-4.7) Magnesium Level 2.3 mg/dL (1.8-2.4) Test 12/25/18 10:30 12/25/18 11:15 12/25/18 11:36 12/25/18 16:00 O2 Saturation 93 % (92-99) Arterial Blood pH 7.46 (7.35-7.45) Arterial Blood pCO2 at Patient Temp 35 mmHg (35-46) Arterial Blood pO2 at Patient Temp 66 mmHg (65-108) Arterial Blood HCO3 24 mmol/L (21-28) Arterial Blood Base Excess 0 mmol/L (-3-3) FiO2 2 lpm nc Lactic Acid Level 0.9 mmol/L (0.4-2.0) Glucose (Fingerstick) 152 mg/dL (70-99) Ammonia < 10 mcmol/L (11-34) Test 12/25/18 16:12 12/26/18 00:29 12/26/18 05:30 12/26/18 12:41 Glucose (Fingerstick) 159 mg/dL (70-99) 171 mg/dL (70-99) 175 mg/dL (70-99) White Blood Count 10.1 x10^3/uL (4.0-11.0) Red Blood Count 3.39 x10^6/uL (3.50-5.40) Hemoglobin 8.0 g/dL (12.0-15.5) Hematocrit 26.6 % (36.0-47.0) Mean Corpuscular Volume 79 fL (79-100) Mean Corpuscular Hemoglobin 24 pg (25-35) Mean Corpuscular Hemoglobin Concent 30 g/dL (31-37) Red Cell Distribution Width 23.1 % (11.5-14.5) Platelet Count 250 x10^3/uL (140-400) Neutrophils (%) (Auto) 75 % (31-73) Lymphocytes (%) (Auto) 14 % (24-48) Monocytes (%) (Auto) 10 % (0-9) Eosinophils (%) (Auto) 1 % (0-3) Basophils (%) (Auto) 1 % (0-3) Neutrophils # (Auto) 7.5 x10^3uL (1.8-7.7) Lymphocytes # (Auto) 1.4 x10^3/uL (1.0-4.8) Monocytes # (Auto) 1.0 x10^3/uL (0.0-1.1) Eosinophils # (Auto) 0.1 x10^3/uL (0.0-0.7) Basophils # (Auto) 0.1 x10^3/uL (0.0-0.2) Sodium Level 142 mmol/L (136-145) Potassium Level 4.4 mmol/L (3.5-5.1) Chloride Level 109 mmol/L (98-107) Carbon Dioxide Level 25 mmol/L (21-32) Anion Gap 8 (6-14) Blood Urea Nitrogen 27 mg/dL (7-20) Creatinine 0.7 mg/dL (0.6-1.0) Estimated GFR (Cockcroft-Gault) 98.7 Glucose Level 151 mg/dL (70-99) Calcium Level 9.4 mg/dL (8.5-10.1) Phosphorus Level 4.1 mg/dL (2.6-4.7) Magnesium Level 2.1 mg/dL (1.8-2.4) Laboratory Tests Test 12/25/18 16:00 12/25/18 16:12 12/26/18 00:29 12/26/18 05:30 Ammonia < 10 mcmol/L (11-34) Glucose (Fingerstick) 159 mg/dL (70-99) 171 mg/dL (70-99) White Blood Count 10.1 x10^3/uL (4.0-11.0) Red Blood Count 3.39 x10^6/uL (3.50-5.40) Hemoglobin 8.0 g/dL (12.0-15.5) Hematocrit 26.6 % (36.0-47.0) Mean Corpuscular Volume 79 fL (79-100) Mean Corpuscular Hemoglobin 24 pg (25-35) Mean Corpuscular Hemoglobin Concent 30 g/dL (31-37) Red Cell Distribution Width 23.1 % (11.5-14.5) Platelet Count 250 x10^3/uL (140-400) Neutrophils (%) (Auto) 75 % (31-73) Lymphocytes (%) (Auto) 14 % (24-48) Monocytes (%) (Auto) 10 % (0-9) Eosinophils (%) (Auto) 1 % (0-3) Basophils (%) (Auto) 1 % (0-3) Neutrophils # (Auto) 7.5 x10^3uL (1.8-7.7) Lymphocytes # (Auto) 1.4 x10^3/uL (1.0-4.8) Monocytes # (Auto) 1.0 x10^3/uL (0.0-1.1) Eosinophils # (Auto) 0.1 x10^3/uL (0.0-0.7) Basophils # (Auto) 0.1 x10^3/uL (0.0-0.2) Sodium Level 142 mmol/L (136-145) Potassium Level 4.4 mmol/L (3.5-5.1) Chloride Level 109 mmol/L (98-107) Carbon Dioxide Level 25 mmol/L (21-32) Anion Gap 8 (6-14) Blood Urea Nitrogen 27 mg/dL (7-20) Creatinine 0.7 mg/dL (0.6-1.0) Estimated GFR (Cockcroft-Gault) 98.7 Glucose Level 151 mg/dL (70-99) Calcium Level 9.4 mg/dL (8.5-10.1) Phosphorus Level 4.1 mg/dL (2.6-4.7) Magnesium Level 2.1 mg/dL (1.8-2.4) Test 12/26/18 12:41 Glucose (Fingerstick) 175 mg/dL (70-99) Microbiology 12/21/18 Blood Culture - Final, Complete NO GROWTH AFTER 5 DAYS Medications Current Medications Sodium Chloride 1,000 ml @ 1,000 mls/hr 1X ONCE IV Last administered on 13:52; Start 12/14/18 at 13:30; Stop 12/14/18 at 14:29; Status DC Amlodipine Besylate (Norvasc) 10 mg DAILY PO Last administered on 12/26/18 10: 01; Start 12/14/18 at 17:00 Chlorhexidine Gluconate (Peridex) 15 ml BID MM Last administered on 12/26/18 09:59; Start 12/14/18 at 21:00 Non-Formulary Medication (Albuterol Sulfate (Ventolin Hfa Inhaler)) 2 puff Q4HRS INH ; Start 12/14/18 at 20:00; Status UNV Ascorbic Acid (Vitamin C) 500 mg DAILY PO Last administered on 12/22/18 10:30; Start 12/14/18 at 17:00 Duloxetine HCl (Cymbalta) 90 mg DAILY PO Last administered on 12/22/18 10:30; Start 12/14/18 at 17:00 Ferrous Sulfate (Feosol) 325 mg DAILYWBKFT PO Last administered on 12/22/18 10: 30; Start 12/14/18 at 17:00 Losartan Potassium (Cozaar) 100 mg DAILY PO Last administered on 12/22/18 10:29 ; Start 12/14/18 at 17:00 Memantine (Namenda) 10 mg BID PO Last administered on 12/25/18at 21:13; Start at 21:00 Pantoprazole Sodium (Protonix) 40 mg DAILYAC PO Last administered on 12/22/18 05:28; Start 12/14/18 at 17:00; Stop 12/24/18 at 09:25; Status DC Ropinirole HCl (Requip) 3 mg QHS PO Last administered on 12/25/18at 21:13; Start 12/14/18 at 21:00 Spironolactone (Aldactone) 25 mg DAILY PO Last administered on 12/26/18at 10:42 ; Start 12/14/18 at 17:00 Albuterol Sulfate (Ventolin Neb Soln) 2.5 mg Q4HRS NEB Last administered on 09/03at 13:25; Start 12/14/18 at 20:00 Sodium Chloride 1,000 ml @ 80 mls/hr [id number] IV Last administered on 12/23/18at 15:25; Start 12/14/18 at 17:15; Stop 12/23/18 at 21:59; Status DC Acetaminophen (Tylenol) 650 mg PRN Q6HRS PRN PO Pain Last administered on at 21:27; Start 12/15/18 at 04:45 Polyethylene Glycol (miraLAX Powder BULK BOTTLE) 238 gm 1X ONCE PO Last administered on 12/15/18at 12:48; Start 12/15/18 at 12:00; Stop 12/15/18 at 12:01 ; Status DC Ondansetron HCl (Zofran) 4 mg PRN Q6HRS PRN IV NAUSEA/VOMITING; Start 12/16/18 at 07:00; Stop 12/17/18 at 06:59; Status DC Fentanyl Citrate (Fentanyl 2ml Vial) 25 mcg PRN Q5MIN PRN IV MILD PAIN; Start 12/16/18 at 07:00; Stop 12/16/18 at 16:33; Status DC Fentanyl Citrate (Fentanyl 2ml Vial) 50 mcg PRN Q5MIN PRN IV MODERATE TO SEVERE PAIN; Start 12/16/18 at 07:00; Stop 12/16/18 at 16:33; Status DC Morphine Sulfate (Morphine Sulfate) 1 mg PRN Q10MIN PRN IV SEVERE PAIN; Start 12/16/18 at 07:00; Stop 12/17/18 at 06:59; Status DC Ringer's Solution 1,000 ml @ 30 mls/hr Q24H IV Last administered on 12/16/18at 13:00; Start 12/16/18 at 07:00; Stop 12/16/18 at 18:59; Status DC Lidocaine HCl (Xylocaine-Mpf 1% 2ml Vial) 2 ml PRN 1X PRN ID IV START; Start at 07:00; Stop 12/17/18 at 06:59; Status DC Hydromorphone HCl (Dilaudid) 0.5 mg PRN Q10MIN PRN IV SEV PAIN, Second choice; Start 12/16/18 at 07:00; Stop 12/17/18 at 06:59; Status DC Prochlorperazine Edisylate (Compazine) 5 mg PACU PRN PRN IV NAUSEA, MRX1; Start 12/16/18 at 07:00; Stop 12/17/18 at 06:59; Status DC Midazolam HCl (Versed) 2 mg PRN 1X PRN IV PRIOR TO PROCEDURE; Start 12/16/18 at 07:15; Stop 12/17/18 at 07:14; Status DC Fentanyl Citrate (Fentanyl 2ml Vial) 25 mcg PRN Q5MIN PRN IV X 2 DOSES FOR PAIN ; Start 12/16/18 at 07:15; Stop 12/16/18 at 16:33; Status DC Fentanyl Citrate (Fentanyl 2ml Vial) 50 mcg PRN Q5MIN PRN IV X 2 DOSES FOR PAIN ; Start 12/16/18 at 07:15; Stop 12/16/18 at 16:34; Status DC Ringer's Solution 1,000 ml @ 125 mls/hr Q8H IV ; Start 12/16/18 at 07:13; Stop 12/16/18 at 19:12; Status DC Lidocaine HCl (Xylocaine-Mpf 1% 2ml Vial) 2 ml 1X PRN PRN ID IV START; Start at 07:15; Stop 12/17/18 at 07:14; Status DC Propofol 40 ml @ As Directed STK-MED ONCE IV ; Start 12/16/18 at 13:58; Stop at 14:00; Status DC Prochlorperazine Edisylate (Compazine) 5 mg PACU PRN PRN IV NAUSEA, MRX1; Start 12/17/18 at 07:00; Stop 12/18/18 at 06:59; Status DC Hydromorphone HCl (Dilaudid) 0.5 mg PRN Q10MIN PRN IV SEV PAIN, Second choice; Start 12/17/18 at 07:00; Stop 12/18/18 at 06:59; Status DC Lidocaine HCl (Xylocaine-Mpf 1% 2ml Vial) 2 ml PRN 1X PRN ID IV START; Start at 07:00; Stop 12/18/18 at 06:59; Status DC Ringer's Solution 1,000 ml @ 30 mls/hr Q24H IV Last administered on 12/17/18at 10:34; Start 12/17/18 at 07:00; Stop 12/17/18 at 18:59; Status DC Morphine Sulfate (Morphine Sulfate) 1 mg PRN Q10MIN PRN IV SEVERE PAIN; Start 12/17/18 at 07:00; Stop 12/18/18 at 06:59; Status DC Fentanyl Citrate (Fentanyl 2ml Vial) 50 mcg PRN Q5MIN PRN IV MODERATE TO SEVERE PAIN Last administered on 12/17/18at 11:13; Start 12/17/18 at 07:00; Stop at 06:59; Status DC Fentanyl Citrate (Fentanyl 2ml Vial) 25 mcg PRN Q5MIN PRN IV MILD PAIN; Start 12/17/18 at 07:00; Stop 12/18/18 at 06:59; Status DC Ondansetron HCl (Zofran) 4 mg PRN Q6HRS PRN IV NAUSEA/VOMITING; Start 12/17/18 at 07:00; Stop 12/18/18 at 06:59; Status DC Propofol 20 ml @ As Directed STK-MED ONCE IV ; Start 12/17/18 at 07:21; Stop 12/17 at 07:23; Status DC Albuterol Sulfate (Ventolin Neb Soln) 2.5 mg 1X ONCE NEB ; Start 12/17/18 at 07: 30; Stop 12/17/18 at 07:31; Status DC Lidocaine HCl (Lidocaine Pf 2% Vial) 5 ml STK-MED ONCE .ROUTE ; Start 12/17/18 at 07:21; Stop 12/17/18 at 07:23; Status DC Succinylcholine Chloride (Anectine) 200 mg STK-MED ONCE .ROUTE ; Start 12/17/18 at 07:21; Stop 12/17/18 at 07:23; Status DC Rocuronium [place] (Zemuron) 50 mg STK-MED ONCE .ROUTE ; Start 12/17/18 at 07:21 ; Stop 12/17/18 at 07:23; Status DC Fentanyl Citrate (Fentanyl 2ml Vial) 100 mcg STK-MED ONCE .ROUTE ; Start at 07:21; Stop 12/17/18 at 07:24; Status DC Cefazolin Sodium/ Dextrose 50 ml @ 100 mls/hr 1X ONCE IV Last administered on 12/17/18at 08:07; Start 12/17/18 at 07:45; Stop 12/17/18 at 08:18; Status DC Bupivacaine HCl/ Epinephrine Bitart (Sensorcain-Mpf Epi 0.5%-[id number]) 30 ml STK -MED ONCE .ROUTE Last administered on 12/17/18at 08:34; Start 12/17/18 at 07:46; Stop 12/17/18 at 07:49; Status DC Neomycin/ Polymyxin/ Bacitracin (Triple Antibiotic Ointment) 1 pkt STK-MED ONCE TP Last administered on 12/17/18at 10:07; Start 12/17/18 at 07:46; Stop 12/17/18 at 07:49; Status DC Neomycin/ Polymyxin/ Bacitracin (Triple Antibiotic Ointment) 1 pkt STK-MED ONCE TP Last administered on 12/17/18at 10:07; Start 12/17/18 at 07:46; Stop 12/17/18 at 07:49; Status DC Neomycin/ Polymyxin/ Bacitracin (Triple Antibiotic Ointment) 1 pkt STK-MED ONCE TP ; Start 12/17/18 at 07:47; Stop 12/17/18 at 07:49; Status DC Dexamethasone Sodium Phosphate (Decadron) 20 mg STK-MED ONCE .ROUTE ; Start 12/17 at 07:54; Stop 12/17/18 at 07:56; Status DC Hydrocortisone Sodium Succinate (Solu-CORTEF) 100 mg STK-MED ONCE .ROUTE ; Start 12/17/18 at 07:54; Stop 12/17/18 at 07:56; Status DC Desflurane (Suprane) 90 ml STK-MED ONCE IH ; Start 12/17/18 at 07:54; Stop at 07:56; Status DC Neostigmine Methylsulfate (Bloxiverz) 10 mg STK-MED ONCE .ROUTE ; Start 12/17/18 at 08:21; Stop 12/17/18 at 08:24; Status DC Glycopyrrolate (Robinul) 1 mg STK-MED ONCE .ROUTE ; Start 12/17/18 at 08:21; Stop 12/17/18 at 08:24; Status DC Phenylephrine HCl (Bogdan-Synephrine Inj) 10 mg STK-MED ONCE .ROUTE ; Start at 08:23; Stop 12/17/18 at 08:26; Status DC Desflurane (Suprane) 60 ml STK-MED ONCE IH ; Start 12/17/18 at 09:23; Stop at 09:26; Status DC Bupivacaine HCl/ Epinephrine Bitart (Sensorcain-Mpf Epi 0.5%-1:[id number]) 30 ml STK -MED ONCE .ROUTE Last administered on 12/17/18at 10:06; Start 12/17/18 at 09:41; Stop 12/17/18 at 09:43; Status DC Morphine Sulfate (Morphine Sulfate) 2 mg PRN Q2HR PRN IV PAIN Last administered on 12/25/18at 09:26; Start 12/17/18 at 10:15; Stop 12/25/18 at 17:54; Status DC Ketorolac Tromethamine (Toradol 15mg Vial) 15 mg Q6HRS IV Last administered on 12/18/18at 05:39; Start 12/17/18 at 12:00; Stop 12/18/18 at 10:00; Status DC Artificial Tears (Artificial Tears) 1 drop PRN Q15MIN PRN OU DRY EYE Last administered on 12/20/18at 21:28; Start 12/18/18 at 08:00 Docusate Sodium (Colace) 100 mg DAILY PO Last administered on 12/26/18at 10:01; Start 12/18/18 at 10:00 Throat Lozenges (Cepacol Sore Throat Lozenge) 1 kristyn PRN Q2HRS PRN PO SORE THROAT Last administered on 12/26/18at 10:01; Start 12/18/18 at 14:00 Enoxaparin Sodium (Lovenox 40mg Syringe) 40 mg Q24H SQ Last administered on 10:01; Start 12/19/18 at 09:00 Ondansetron HCl (Zofran) 4 mg PRN Q6HRS PRN IV NAUSEA/VOMITING Last administered on 12/23/18 10:49; Start 12/19/18 at 11:30 Insulin Human Lispro (HumaLOG) 0-5 UNITS TIDWMEALS SQ ; Start 12/19/18 at 17:00 Dextrose (Dextrose 50%-Water Syringe) 12.5 gm PRN Q15MIN PRN IV SEE COMMENTS; Start 12/19/18 at 16:45 Levofloxacin/ Dextrose 100 ml @ 100 mls/hr 1X ONCE IV Last administered on 20:56; Start 12/19/18 at 21:00; Stop 12/19/18 at 21:59; Status DC Cefepime HCl (Maxipime) 2 gm Q12HR IVP Last administered on 12/26/18 09:59; Start 12/21/18 at 10:00 Sodium Chloride 1,000 ml @ 125 mls/hr 1X ONCE IV Last administered on 10:43; Start 12/21/18 at 09:45; Stop 12/21/18 at 17:44; Status DC Calcium Carbonate/ Glycine (Tums) 500 mg PRN AFTMEALHC PRN PO INDIGESTION Last administered on 12/21/18 13:10; Start 12/21/18 at 12:15 Lorazepam (Ativan) 1 mg 1X ONCE IV Last administered on 12/21/18 17:50; Start 12/21/18 at 17:30; Stop 12/21/18 at 17:31; Status DC Albuterol Sulfate (Ventolin Neb Soln) 2.5 mg PRN Q2HRS PRN NEB SHORTNESS OF BREATH Last administered on 12/26/18 10:26; Start 12/21/18 at 17:30 Nicotine (Nicoderm Cq 14mg) 1 patch PRN DAILY PRN TD SMOKING CESSATION Last administered on 12/26/18 09:59; Start 12/21/18 at 19:30 Lorazepam (Ativan) 1 mg 1X ONCE IV Last administered on 12/21/18 23:45; Start 12/21/18 at 23:45; Stop 12/21/18 at 23:46; Status DC Lorazepam (Ativan) 1 mg PRN Q4HRS PRN IV ANXIETY / AGITATION Last administered on 12/22/18at 11:15; Start 12/21/18 at 23:30; Stop 12/22/18 at 14:42; Status DC Sodium Chloride 1,000 ml @ 250 mls/hr 1X ONCE IV Last administered on at 09:15; Start 12/22/18 at 09:15; Stop 12/22/18 at 13:14; Status DC Lidocaine/Sodium Bicarbonate (Buffered Lidocaine 1%) 3 ml STK-MED ONCE .ROUTE ; Start 12/23/18 at 10:33; Stop 12/23/18 at 10:35; Status DC Lidocaine/Sodium Bicarbonate (Buffered Lidocaine 1%) 3 ml 1X ONCE INJ Last administered on 12/23/18at 11:24; Start 12/23/18 at 11:00; Stop 12/23/18 at 11:10; Status DC Info (Tpn Per Pharmacy) 1 each PRN DAILY PRN MC SEE COMMENTS Last administered on 12/26/18at 12:03; Start 12/23/18 at 14:00 Sodium Chloride 90 meq/Potassium Chloride 50 meq/ Potassium Phosphate 20.4 mmol/ Magnesium Sulfate 18 meq/ Calcium Gluconate 5 meq/ Multivitamins 10 ml/Chromium / Copper/Manganese/ Seleni/Zn 1 ml/ Total Parenteral Nutrition/Amino Acids/ Dextrose/ Fat Emulsion Intravenous 1,512 ml @ 63 mls/hr TPN CONT IV Last administered on 12/23/18at 21:37; Start 12/23/18 at 22:00; Stop 12/24/18 at 21:59; Status DC Alprazolam (Xanax) 0.25 mg PRN BID PRN PO ANXIETY / AGITATION Last administered on 12/25/18at 09:25; Start 12/23/18 at 23:00; Stop 12/25/18 at 17:54; Status DC Lorazepam (Ativan) 1 mg PRN Q4HRS PRN IV ANXIETY / AGITATION Last administered on 12/24/18at 09:21; Start 12/24/18 at 08:45; Stop 12/24/18 at 10:19; Status DC Pantoprazole Sodium (PROTONIX VIAL for IV PUSH) 40 mg DAILYAC IVP Last administered on 12/26/18 06:07; Start 12/24/18 at 09:30 Lorazepam (Ativan) 0.5 mg PRN Q4HRS PRN IV ANXIETY / AGITATION Last administered on 12/25/18at 04:47; Start 12/24/18 at 10:30; Stop 12/25/18 at 10:22; Status DC Sodium Chloride 45 meq/Sodium Acetate 45 meq/ Potassium Chloride 50 meq/ Potassium Phosphate 20.4 mmol/Magnesium Sulfate 18 meq/ Calcium Gluconate 5 meq / Multivitamins 10 ml/Chromium/ Copper/Manganese/ Seleni/Zn 1 ml/ Total Parenteral Nutrition/Amino Acids/Dextrose/ Fat Emuls... 1,512 ml @ 63 mls/hr TPN CONT IV Last administered on 12/24/18 21:57; Start 12/24/18 at 22:00; Stop 12/25/18 at 21:59; Status DC Phenyleph/Shark Oil/Min Oil/Petrol (Preparation H) 1 ranjith PRN Q4HRS PRN RC RECTAL PAIN; Start 12/24/18 at 12:45; Stop 12/25/18 at 20:20; Status DC Sodium Chloride 45 meq/Sodium Acetate 45 meq/ Potassium Chloride 50 meq/ Potassium Phosphate 20.4 mmol/Magnesium Sulfate 18 meq/ Calcium Gluconate 5 meq / Multivitamins 10 ml/Chromium/ Copper/Manganese/ Seleni/Zn 1 ml/ Total Parenteral Nutrition/Amino Acids/Dextrose/ Fat Emuls... 1,512 ml @ 63 mls/hr TPN CONT IV Last administered on 12/26/18at 00:34; Start 12/25/18 at 22:00; Stop 12/26/18 at 21:59 Neomycin/ Polymyxin/ Bacitracin (Triple Antibiotic Ointment) 1 pkt PRN TID PRN TP skin around rectum, post op Last administered on 12/26/18 09:58; Start at 14:30 Alprazolam (Xanax) 0.25 mg PRN Q8HRS PRN PO ANXIETY / AGITATION Last administered on 12/26/18 09:59; Start 12/25/18 at 18:00 Morphine Sulfate (Morphine Sulfate) 2 mg PRN Q6HRS PRN IV PAIN Last administered on 2/10/19at 06:51; Start 12/25/18 at 18:00 Guaifenesin (Mucinex) 600 mg BID PO ; Start 12/26/18 at 11:00 Guaifenesin (Mucinex) 600 mg BID PO ; Start 12/26/18 at 11:00; Status UNV Guaifenesin/ Codeine Phosphate (Robitussin Ac) 5 ml PRN Q6HRS PRN PO COUGH Last administered on 12/26/18at 10:41; Start 12/26/18 at 10:30 Sodium Acetate 90 meq/Potassium Chloride 50 meq/ Potassium Phosphate 13.6 mmol/ Magnesium Sulfate 18 meq/ Calcium Gluconate 5 meq/ Multivitamins 10 ml/Chromium / Copper/Manganese/ Seleni/Zn 1 ml/ Total Parenteral Nutrition/Amino Acids/ Dextrose/ Fat Emulsion Intravenous 1,512 ml @ 63 mls/hr TPN CONT IV ; Start at 22:00; Stop 12/27/18 at 21:59 Active Scripts Active Chlorhexidine Gluconate 473 Ml Mouthwash 473 Ml MM BID 7 Days Vitamin C (Ascorbate Calcium) 500 Mg Tablet 500 Mg PO DAILY 30 Days Slow Release Iron (Ferrous Sulfate) 250 Mg Tablet.er 250 Mg PO DAILY 30 Days Protonix (Pantoprazole Sodium) 40 Mg Granpkt.dr 40 Mg PO DAILY 30 Days Reported Alprazolam 0.25 Mg Tablet 0.25 Mg PO DAILY Metformin Hcl Er (Metformin Hcl) 500 Mg Tab.er.24h 1 Tab PO DAILY Namenda (Memantine Hcl) 10 Mg Tablet 1 Tab PO BID Losartan Potassium 100 Mg Tablet 100 Mg PO DAILY Spironolactone 25 Mg Tablet 1 Tab PO DAILY Ventolin Hfa Inhaler (Albuterol Sulfate) 18 Gm Hfa.aer.ad 2 Puff INH Q4HRS Cymbalta (Duloxetine Hcl) 20 Mg Capsule.dr 90 Mg PO DAILY Requip (Ropinirole Hcl) 1 Mg Tablet 3 Mg PO DAILY Amlodipine Besylate 10 Mg Tablet 10 Mg PO DAILY Vitals/I & O Vital Sign - Last 24 Hours 12/25/18 12/25/18 12/25/18 12/25/18 15:00 15:45 18:26 19:00 Temp 98.1 97.9 98.1 97.9 Pulse 95 94 Resp 17 18 B/P (MAP) 115/73 (87) 114/68 (83) Pulse Ox 96 98 98 95 O2 Delivery Nasal Cannula Nasal Cannula Nasal Cannula Nasal Cannula O2 Flow Rate 3.0 3.0 3.0 3.0 12/25/18 12/25/18 12/25/18 12/25/18 19:07 20:00 23:00 23:16 Temp 98.4 98.4 Pulse 93 Resp 22 B/P (MAP) 118/72 (87) Pulse Ox 97 100 O2 Delivery Nasal Cannula Nasal Cannula Nasal Cannula Nasal Cannula O2 Flow Rate 3.0 3.0 3.0 3.0 12/26/18 12/26/18 12/26/18 12/26/18 00:33 01:03 03:00 03:00 Temp 97.7 97.7 Pulse 85 Resp 20 18 20 B/P (MAP) 128/80 (96) Pulse Ox 100 100 97 100 O2 Delivery Nasal Cannula Nasal Cannula Nasal Cannula Nasal Cannula O2 Flow Rate 3.0 3.0 3.0 3.0 12/26/18 12/26/18 12/26/18 12/26/18 06:51 07:00 07:15 10:01 Temp 98.4 98.4 Pulse 85 85 Resp 20 16 B/P (MAP) 138/92 (107) 138/92 Pulse Ox 100 95 99 O2 Delivery Nasal Cannula Nasal Cannula Nasal Cannula O2 Flow Rate 3.0 3.0 3.0 12/26/18 12/26/18 12/26/18 10:26 11:00 13:25 Temp 98.1 98.1 Pulse 95 Resp 18 B/P (MAP) 144/72 (96) Pulse Ox 100 99 O2 Delivery Nasal Cannula Room Air Nasal Cannula O2 Flow Rate 3.0 3.0 Intake and Output 12/25/18 12/25/18 12/26/18 15:01 23:01 07:01 Intake Total 0 ml 0 ml Balance 0 ml 0 ml Assessment S/p partial colectomy- possible pneumonia on CXR, continue with oral diuretics and antibiotics. ELIZABETH PACHECO MD Dec 26, 2018 13:56
[2018-12-26 15:00] VITALS: BP 109/68
--- NOTE | 2018-12-26 16:07 | PDOC ---
PROGRESS NOTES Chief Complaint Chief Complaint Patient much more alert today compared to yesterday. She is now responding to questions appropriately and I am able to interact with the patient is supposed to yesterday. Unclear the etiology of her transient episode reassurance has been provided CONCERNS address to the best of my abilities. Consult and recommendations and input greatly appreciated History of Present Illness History of Present Illness Assessment/Plan 1. Acute hypoxic respiratory failure secondary to underlying chronic obstructive pulmonary disease and increasing abdominal distention related to ileus: continue supplemental 02. decompress bowel with NG tube to suction.. GI and Gen sx following. NPO status. PICC in place with TPN. 2. S/p right colon resection and hemorrhoidectomy secondary to bleeding cecal ulcer, path negative for malignancy . 3. Underlying COPD. bronchodilator therapy 4. VISHNU, resolving 5. Sepsis/Leukopenia. started cefepime. check cultures. apprec ID - unclear if there is actually a pneumonia, mostly atelectatic lungs 6. Gi bleed acute ,Questionable GI bleed with anemia marked anemia POA. hb stable Colonoscopy in 11/2017 showed diverticulosis, EGD 11/2018 showed non-erosive gastritis Operative Note Date: 12/17/2018 Preoperative diagnosis: GI bleed cecal ulceration by colonoscopy with active bleeding hemorrhoids Postoperative diagnosis: Same Procedure: Laparoscopic-assisted right colon resection and hemorrhoidectomy Surgeon: Jan Specimen: Right colon and hemorrhoids Vitals Vitals Vital Signs Date Time Temp Pulse Resp B/P (MAP) Pulse Ox O2 Delivery O2 Flow Rate FiO2 12/26/18 15:17 99 Nasal Cannula 3.0 12/26/18 11:00 98.1 95 18 144/72 (96) 98.1 Physical Exam Physical Exam GENERAL: Lying down, tired appearance, HEENT: Oral cavity clear NECK: Supple LUNGS: Soft wheeze HEART: S1, S2 ABDOMEN: Distended, soft, hypoactive BS. dressings dry EXTREMITIES: No edema or cyanosis. SKIN: No rash. Rectal wound clean NEUROLOGIC: Alert, responds appropriately RUE-PICC (12/23) clean General: Alert, Oriented X3, Cooperative, mild distress Heart: Regular rate, Normal S1, Normal S2, No murmurs Lungs: Clear Abdomen: Soft Extremities: No clubbing, No cyanosis, No edema Skin: No significant lesion Labs LABS Laboratory Tests Test 12/25/18 16:00 12/25/18 16:12 12/26/18 00:29 12/26/18 05:30 Ammonia < 10 mcmol/L (11-34) Glucose (Fingerstick) 159 mg/dL (70-99) 171 mg/dL (70-99) White Blood Count 10.1 x10^3/uL (4.0-11.0) Red Blood Count 3.39 x10^6/uL (3.50-5.40) Hemoglobin 8.0 g/dL (12.0-15.5) Hematocrit 26.6 % (36.0-47.0) Mean Corpuscular Volume 79 fL (79-100) Mean Corpuscular Hemoglobin 24 pg (25-35) Mean Corpuscular Hemoglobin Concent 30 g/dL (31-37) Red Cell Distribution Width 23.1 % (11.5-14.5) Platelet Count 250 x10^3/uL (140-400) Neutrophils (%) (Auto) 75 % (31-73) Lymphocytes (%) (Auto) 14 % (24-48) Monocytes (%) (Auto) 10 % (0-9) Eosinophils (%) (Auto) 1 % (0-3) Basophils (%) (Auto) 1 % (0-3) Neutrophils # (Auto) 7.5 x10^3uL (1.8-7.7) Lymphocytes # (Auto) 1.4 x10^3/uL (1.0-4.8) Monocytes # (Auto) 1.0 x10^3/uL (0.0-1.1) Eosinophils # (Auto) 0.1 x10^3/uL (0.0-0.7) Basophils # (Auto) 0.1 x10^3/uL (0.0-0.2) Sodium Level 142 mmol/L (136-145) Potassium Level 4.4 mmol/L (3.5-5.1) Chloride Level 109 mmol/L (98-107) Carbon Dioxide Level 25 mmol/L (21-32) Anion Gap 8 (6-14) Blood Urea Nitrogen 27 mg/dL (7-20) Creatinine 0.7 mg/dL (0.6-1.0) Estimated GFR (Cockcroft-Gault) 98.7 Glucose Level 151 mg/dL (70-99) Calcium Level 9.4 mg/dL (8.5-10.1) Phosphorus Level 4.1 mg/dL (2.6-4.7) Magnesium Level 2.1 mg/dL (1.8-2.4) Test 12/26/18 12:41 Glucose (Fingerstick) 175 mg/dL (70-99) Review of Systems Review of Systems Pertinent as per history of present illness otherwise 14 point review of system is negative Comment Review of Relevant I have reviewed the following items abdifatah (where applicable) has been applied. Labs Laboratory Tests Test 12/24/18 17:21 12/24/18 20:07 12/25/18 05:45 12/25/18 07:20 Glucose (Fingerstick) 165 mg/dL (70-99) 166 mg/dL (70-99) 152 mg/dL (70-99) Sodium Level 145 mmol/L (136-145) Potassium Level 4.3 mmol/L (3.5-5.1) Chloride Level 111 mmol/L (98-107) Carbon Dioxide Level 26 mmol/L (21-32) Anion Gap 8 (6-14) Blood Urea Nitrogen 29 mg/dL (7-20) Creatinine 0.8 mg/dL (0.6-1.0) Estimated GFR (Cockcroft-Gault) 84.6 Glucose Level 171 mg/dL (70-99) Calcium Level 9.5 mg/dL (8.5-10.1) Phosphorus Level 3.2 mg/dL (2.6-4.7) Magnesium Level 2.3 mg/dL (1.8-2.4) Test 12/25/18 10:30 12/25/18 11:15 12/25/18 11:36 12/25/18 16:00 O2 Saturation 93 % (92-99) Arterial Blood pH 7.46 (7.35-7.45) Arterial Blood pCO2 at Patient Temp 35 mmHg (35-46) Arterial Blood pO2 at Patient Temp 66 mmHg (65-108) Arterial Blood HCO3 24 mmol/L (21-28) Arterial Blood Base Excess 0 mmol/L (-3-3) FiO2 2 lpm nc Lactic Acid Level 0.9 mmol/L (0.4-2.0) Glucose (Fingerstick) 152 mg/dL (70-99) Ammonia < 10 mcmol/L (11-34) Test 12/25/18 16:12 12/26/18 00:29 12/26/18 05:30 12/26/18 12:41 Glucose (Fingerstick) 159 mg/dL (70-99) 171 mg/dL (70-99) 175 mg/dL (70-99) White Blood Count 10.1 x10^3/uL (4.0-11.0) Red Blood Count 3.39 x10^6/uL (3.50-5.40) Hemoglobin 8.0 g/dL (12.0-15.5) Hematocrit 26.6 % (36.0-47.0) Mean Corpuscular Volume 79 fL (79-100) Mean Corpuscular Hemoglobin 24 pg (25-35) Mean Corpuscular Hemoglobin Concent 30 g/dL (31-37) Red Cell Distribution Width 23.1 % (11.5-14.5) Platelet Count 250 x10^3/uL (140-400) Neutrophils (%) (Auto) 75 % (31-73) Lymphocytes (%) (Auto) 14 % (24-48) Monocytes (%) (Auto) 10 % (0-9) Eosinophils (%) (Auto) 1 % (0-3) Basophils (%) (Auto) 1 % (0-3) Neutrophils # (Auto) 7.5 x10^3uL (1.8-7.7) Lymphocytes # (Auto) 1.4 x10^3/uL (1.0-4.8) Monocytes # (Auto) 1.0 x10^3/uL (0.0-1.1) Eosinophils # (Auto) 0.1 x10^3/uL (0.0-0.7) Basophils # (Auto) 0.1 x10^3/uL (0.0-0.2) Sodium Level 142 mmol/L (136-145) Potassium Level 4.4 mmol/L (3.5-5.1) Chloride Level 109 mmol/L (98-107) Carbon Dioxide Level 25 mmol/L (21-32) Anion Gap 8 (6-14) Blood Urea Nitrogen 27 mg/dL (7-20) Creatinine 0.7 mg/dL (0.6-1.0) Estimated GFR (Cockcroft-Gault) 98.7 Glucose Level 151 mg/dL (70-99) Calcium Level 9.4 mg/dL (8.5-10.1) Phosphorus Level 4.1 mg/dL (2.6-4.7) Magnesium Level 2.1 mg/dL (1.8-2.4) Laboratory Tests Test 12/25/18 16:00 12/25/18 16:12 12/26/18 00:29 12/26/18 05:30 Ammonia < 10 mcmol/L (11-34) Glucose (Fingerstick) 159 mg/dL (70-99) 171 mg/dL (70-99) White Blood Count 10.1 x10^3/uL (4.0-11.0) Red Blood Count 3.39 x10^6/uL (3.50-5.40) Hemoglobin 8.0 g/dL (12.0-15.5) Hematocrit 26.6 % (36.0-47.0) Mean Corpuscular Volume 79 fL (79-100) Mean Corpuscular Hemoglobin 24 pg (25-35) Mean Corpuscular Hemoglobin Concent 30 g/dL (31-37) Red Cell Distribution Width 23.1 % (11.5-14.5) Platelet Count 250 x10^3/uL (140-400) Neutrophils (%) (Auto) 75 % (31-73) Lymphocytes (%) (Auto) 14 % (24-48) Monocytes (%) (Auto) 10 % (0-9) Eosinophils (%) (Auto) 1 % (0-3) Basophils (%) (Auto) 1 % (0-3) Neutrophils # (Auto) 7.5 x10^3uL (1.8-7.7) Lymphocytes # (Auto) 1.4 x10^3/uL (1.0-4.8) Monocytes # (Auto) 1.0 x10^3/uL (0.0-1.1) Eosinophils # (Auto) 0.1 x10^3/uL (0.0-0.7) Basophils # (Auto) 0.1 x10^3/uL (0.0-0.2) Sodium Level 142 mmol/L (136-145) Potassium Level 4.4 mmol/L (3.5-5.1) Chloride Level 109 mmol/L (98-107) Carbon Dioxide Level 25 mmol/L (21-32) Anion Gap 8 (6-14) Blood Urea Nitrogen 27 mg/dL (7-20) Creatinine 0.7 mg/dL (0.6-1.0) Estimated GFR (Cockcroft-Gault) 98.7 Glucose Level 151 mg/dL (70-99) Calcium Level 9.4 mg/dL (8.5-10.1) Phosphorus Level 4.1 mg/dL (2.6-4.7) Magnesium Level 2.1 mg/dL (1.8-2.4) Test 12/26/18 12:41 Glucose (Fingerstick) 175 mg/dL (70-99) Microbiology 12/21/18 Blood Culture - Final, Complete NO GROWTH AFTER 5 DAYS Medications Current Medications Sodium Chloride 1,000 ml @ 1,000 mls/hr 1X ONCE IV Last administered on 13:52; Start 12/14/18 at 13:30; Stop 12/14/18 at 14:29; Status DC Amlodipine Besylate (Norvasc) 10 mg DAILY PO Last administered on 12/26/18 10: 01; Start 12/14/18 at 17:00 Chlorhexidine Gluconate (Peridex) 15 ml BID MM Last administered on 12/26/18 09:59; Start 12/14/18 at 21:00 Non-Formulary Medication (Albuterol Sulfate (Ventolin Hfa Inhaler)) 2 puff Q4HRS INH ; Start 12/14/18 at 20:00; Status UNV Ascorbic Acid (Vitamin C) 500 mg DAILY PO Last administered on 12/22/18 10:30; Start 12/14/18 at 17:00 Duloxetine HCl (Cymbalta) 90 mg DAILY PO Last administered on 12/22/18 10:30; Start 12/14/18 at 17:00 Ferrous Sulfate (Feosol) 325 mg DAILYWBKFT PO Last administered on 12/22/18 10: 30; Start 12/14/18 at 17:00 Losartan Potassium (Cozaar) 100 mg DAILY PO Last administered on 12/22/18 10:29 ; Start 12/14/18 at 17:00 Memantine (Namenda) 10 mg BID PO Last administered on 12/25/18at 21:13; Start at 21:00 Pantoprazole Sodium (Protonix) 40 mg DAILYAC PO Last administered on 12/22/18at 05:28; Start 12/14/18 at 17:00; Stop 12/24/18 at 09:25; Status DC Ropinirole HCl (Requip) 3 mg QHS PO Last administered on 12/25/18at 21:13; Start 12/14/18 at 21:00 Spironolactone (Aldactone) 25 mg DAILY PO Last administered on 12/26/18at 10:42 ; Start 12/14/18 at 17:00 Albuterol Sulfate (Ventolin Neb Soln) 2.5 mg Q4HRS NEB Last administered on 13:25; Start 12/14/18 at 20:00 Sodium Chloride 1,000 ml @ 80 mls/hr [id number] IV Last administered on 12/23/18at 15:25; Start 12/14/18 at 17:15; Stop 12/23/18 at 21:59; Status DC Acetaminophen (Tylenol) 650 mg PRN Q6HRS PRN PO Pain Last administered on 21:27; Start 12/15/18 at 04:45 Polyethylene Glycol (miraLAX Powder BULK BOTTLE) 238 gm 1X ONCE PO Last administered on 12/15/18at 12:48; Start 12/15/18 at 12:00; Stop 12/15/18 at 12:01 ; Status DC Ondansetron HCl (Zofran) 4 mg PRN Q6HRS PRN IV NAUSEA/VOMITING; Start 12/16/18 at 07:00; Stop 12/17/18 at 06:59; Status DC Fentanyl Citrate (Fentanyl 2ml Vial) 25 mcg PRN Q5MIN PRN IV MILD PAIN; Start 12/16/18 at 07:00; Stop 12/16/18 at 16:33; Status DC Fentanyl Citrate (Fentanyl 2ml Vial) 50 mcg PRN Q5MIN PRN IV MODERATE TO SEVERE PAIN; Start 12/16/18 at 07:00; Stop 12/16/18 at 16:33; Status DC Morphine Sulfate (Morphine Sulfate) 1 mg PRN Q10MIN PRN IV SEVERE PAIN; Start 12/16/18 at 07:00; Stop 12/17/18 at 06:59; Status DC Ringer's Solution 1,000 ml @ 30 mls/hr Q24H IV Last administered on 12/16/18at 13:00; Start 12/16/18 at 07:00; Stop 12/16/18 at 18:59; Status DC Lidocaine HCl (Xylocaine-Mpf 1% 2ml Vial) 2 ml PRN 1X PRN ID IV START; Start at 07:00; Stop 12/17/18 at 06:59; Status DC Hydromorphone HCl (Dilaudid) 0.5 mg PRN Q10MIN PRN IV SEV PAIN, Second choice; Start 12/16/18 at 07:00; Stop 12/17/18 at 06:59; Status DC Prochlorperazine Edisylate (Compazine) 5 mg PACU PRN PRN IV NAUSEA, MRX1; Start 12/16/18 at 07:00; Stop 12/17/18 at 06:59; Status DC Midazolam HCl (Versed) 2 mg PRN 1X PRN IV PRIOR TO PROCEDURE; Start 12/16/18 at 07:15; Stop 12/17/18 at 07:14; Status DC Fentanyl Citrate (Fentanyl 2ml Vial) 25 mcg PRN Q5MIN PRN IV X 2 DOSES FOR PAIN ; Start 12/16/18 at 07:15; Stop 12/16/18 at 16:33; Status DC Fentanyl Citrate (Fentanyl 2ml Vial) 50 mcg PRN Q5MIN PRN IV X 2 DOSES FOR PAIN ; Start 12/16/18 at 07:15; Stop 12/16/18 at 16:34; Status DC Ringer's Solution 1,000 ml @ 125 mls/hr Q8H IV ; Start 12/16/18 at 07:13; Stop 12/16/18 at 19:12; Status DC Lidocaine HCl (Xylocaine-Mpf 1% 2ml Vial) 2 ml 1X PRN PRN ID IV START; Start at 07:15; Stop 12/17/18 at 07:14; Status DC Propofol 40 ml @ As Directed STK-MED ONCE IV ; Start 12/16/18 at 13:58; Stop at 14:00; Status DC Prochlorperazine Edisylate (Compazine) 5 mg PACU PRN PRN IV NAUSEA, MRX1; Start 12/17/18 at 07:00; Stop 12/18/18 at 06:59; Status DC Hydromorphone HCl (Dilaudid) 0.5 mg PRN Q10MIN PRN IV SEV PAIN, Second choice; Start 12/17/18 at 07:00; Stop 12/18/18 at 06:59; Status DC Lidocaine HCl (Xylocaine-Mpf 1% 2ml Vial) 2 ml PRN 1X PRN ID IV START; Start at 07:00; Stop 12/18/18 at 06:59; Status DC Ringer's Solution 1,000 ml @ 30 mls/hr Q24H IV Last administered on 12/17/18at 10:34; Start 12/17/18 at 07:00; Stop 12/17/18 at 18:59; Status DC Morphine Sulfate (Morphine Sulfate) 1 mg PRN Q10MIN PRN IV SEVERE PAIN; Start 12/17/18 at 07:00; Stop 12/18/18 at 06:59; Status DC Fentanyl Citrate (Fentanyl 2ml Vial) 50 mcg PRN Q5MIN PRN IV MODERATE TO SEVERE PAIN Last administered on 12/17/18at 11:13; Start 12/17/18 at 07:00; Stop at 06:59; Status DC Fentanyl Citrate (Fentanyl 2ml Vial) 25 mcg PRN Q5MIN PRN IV MILD PAIN; Start 12/17/18 at 07:00; Stop 12/18/18 at 06:59; Status DC Ondansetron HCl (Zofran) 4 mg PRN Q6HRS PRN IV NAUSEA/VOMITING; Start 12/17/18 at 07:00; Stop 12/18/18 at 06:59; Status DC Propofol 20 ml @ As Directed STK-MED ONCE IV ; Start 12/17/18 at 07:21; Stop 12/17 at 07:23; Status DC Albuterol Sulfate (Ventolin Neb Soln) 2.5 mg 1X ONCE NEB ; Start 12/17/18 at 07: 30; Stop 12/17/18 at 07:31; Status DC Lidocaine HCl (Lidocaine Pf 2% Vial) 5 ml STK-MED ONCE .ROUTE ; Start 12/17/18 at 07:21; Stop 12/17/18 at 07:23; Status DC Succinylcholine Chloride (Anectine) 200 mg STK-MED ONCE .ROUTE ; Start 12/17/18 at 07:21; Stop 12/17/18 at 07:23; Status DC Rocuronium [place] (Zemuron) 50 mg STK-MED ONCE .ROUTE ; Start 12/17/18 at 07:21 ; Stop 12/17/18 at 07:23; Status DC Fentanyl Citrate (Fentanyl 2ml Vial) 100 mcg STK-MED ONCE .ROUTE ; Start at 07:21; Stop 12/17/18 at 07:24; Status DC Cefazolin Sodium/ Dextrose 50 ml @ 100 mls/hr 1X ONCE IV Last administered on 12/17/18at 08:07; Start 12/17/18 at 07:45; Stop 12/17/18 at 08:18; Status DC Bupivacaine HCl/ Epinephrine Bitart (Sensorcain-Mpf Epi 0.5%-[id number]) 30 ml STK -MED ONCE .ROUTE Last administered on 12/17/18at 08:34; Start 12/17/18 at 07:46; Stop 12/17/18 at 07:49; Status DC Neomycin/ Polymyxin/ Bacitracin (Triple Antibiotic Ointment) 1 pkt STK-MED ONCE TP Last administered on 12/17/18at 10:07; Start 12/17/18 at 07:46; Stop 12/17/18 at 07:49; Status DC Neomycin/ Polymyxin/ Bacitracin (Triple Antibiotic Ointment) 1 pkt STK-MED ONCE TP Last administered on 12/17/18at 10:07; Start 12/17/18 at 07:46; Stop 12/17/18 at 07:49; Status DC Neomycin/ Polymyxin/ Bacitracin (Triple Antibiotic Ointment) 1 pkt STK-MED ONCE TP ; Start 12/17/18 at 07:47; Stop 12/17/18 at 07:49; Status DC Dexamethasone Sodium Phosphate (Decadron) 20 mg STK-MED ONCE .ROUTE ; Start 12/17 at 07:54; Stop 12/17/18 at 07:56; Status DC Hydrocortisone Sodium Succinate (Solu-CORTEF) 100 mg STK-MED ONCE .ROUTE ; Start 12/17/18 at 07:54; Stop 12/17/18 at 07:56; Status DC Desflurane (Suprane) 90 ml STK-MED ONCE IH ; Start 12/17/18 at 07:54; Stop at 07:56; Status DC Neostigmine Methylsulfate (Bloxiverz) 10 mg STK-MED ONCE .ROUTE ; Start 12/17/18 at 08:21; Stop 12/17/18 at 08:24; Status DC Glycopyrrolate (Robinul) 1 mg STK-MED ONCE .ROUTE ; Start 12/17/18 at 08:21; Stop 12/17/18 at 08:24; Status DC Phenylephrine HCl (Bogdan-Synephrine Inj) 10 mg STK-MED ONCE .ROUTE ; Start at 08:23; Stop 12/17/18 at 08:26; Status DC Desflurane (Suprane) 60 ml STK-MED ONCE IH ; Start 12/17/18 at 09:23; Stop at 09:26; Status DC Bupivacaine HCl/ Epinephrine Bitart (Sensorcain-Mpf Epi 0.5%-1:[id number]) 30 ml STK -MED ONCE .ROUTE Last administered on 12/17/18at 10:06; Start 12/17/18 at 09:41; Stop 12/17/18 at 09:43; Status DC Morphine Sulfate (Morphine Sulfate) 2 mg PRN Q2HR PRN IV PAIN Last administered on 12/25/18at 09:26; Start 12/17/18 at 10:15; Stop 12/25/18 at 17:54; Status DC Ketorolac Tromethamine (Toradol 15mg Vial) 15 mg Q6HRS IV Last administered on 12/18/18at 05:39; Start 12/17/18 at 12:00; Stop 12/18/18 at 10:00; Status DC Artificial Tears (Artificial Tears) 1 drop PRN Q15MIN PRN OU DRY EYE Last administered on 12/20/18at 21:28; Start 12/18/18 at 08:00 Docusate Sodium (Colace) 100 mg DAILY PO Last administered on 12/26/18at 10:01; Start 12/18/18 at 10:00 Throat Lozenges (Cepacol Sore Throat Lozenge) 1 kristyn PRN Q2HRS PRN PO SORE THROAT Last administered on 12/26/18 10:01; Start 12/18/18 at 14:00 Enoxaparin Sodium (Lovenox 40mg Syringe) 40 mg Q24H SQ Last administered on 10:01; Start 12/19/18 at 09:00 Ondansetron HCl (Zofran) 4 mg PRN Q6HRS PRN IV NAUSEA/VOMITING Last administered on 12/23/18 10:49; Start 12/19/18 at 11:30 Insulin Human Lispro (HumaLOG) 0-5 UNITS TIDWMEALS SQ ; Start 12/19/18 at 17:00 Dextrose (Dextrose 50%-Water Syringe) 12.5 gm PRN Q15MIN PRN IV SEE COMMENTS; Start 12/19/18 at 16:45 Levofloxacin/ Dextrose 100 ml @ 100 mls/hr 1X ONCE IV Last administered on 20:56; Start 12/19/18 at 21:00; Stop 12/19/18 at 21:59; Status DC Cefepime HCl (Maxipime) 2 gm Q12HR IVP Last administered on 12/26/18 09:59; Start 12/21/18 at 10:00 Sodium Chloride 1,000 ml @ 125 mls/hr 1X ONCE IV Last administered on 10:43; Start 12/21/18 at 09:45; Stop 12/21/18 at 17:44; Status DC Calcium Carbonate/ Glycine (Tums) 500 mg PRN AFTMEALHC PRN PO INDIGESTION Last administered on 12/21/18 13:10; Start 12/21/18 at 12:15 Lorazepam (Ativan) 1 mg 1X ONCE IV Last administered on 12/21/18 17:50; Start 12/21/18 at 17:30; Stop 12/21/18 at 17:31; Status DC Albuterol Sulfate (Ventolin Neb Soln) 2.5 mg PRN Q2HRS PRN NEB SHORTNESS OF BREATH Last administered on 12/26/18 10:26; Start 12/21/18 at 17:30 Nicotine (Nicoderm Cq 14mg) 1 patch PRN DAILY PRN TD SMOKING CESSATION Last administered on 12/26/18 09:59; Start 12/21/18 at 19:30 Lorazepam (Ativan) 1 mg 1X ONCE IV Last administered on 12/21/18 23:45; Start 12/21/18 at 23:45; Stop 12/21/18 at 23:46; Status DC Lorazepam (Ativan) 1 mg PRN Q4HRS PRN IV ANXIETY / AGITATION Last administered on 12/22/18 11:15; Start 12/21/18 at 23:30; Stop 12/22/18 at 14:42; Status DC Sodium Chloride 1,000 ml @ 250 mls/hr 1X ONCE IV Last administered on 09:15; Start 12/22/18 at 09:15; Stop 12/22/18 at 13:14; Status DC Lidocaine/Sodium Bicarbonate (Buffered Lidocaine 1%) 3 ml STK-MED ONCE .ROUTE ; Start 12/23/18 at 10:33; Stop 12/23/18 at 10:35; Status DC Lidocaine/Sodium Bicarbonate (Buffered Lidocaine 1%) 3 ml 1X ONCE INJ Last administered on 12/23/18at 11:24; Start 12/23/18 at 11:00; Stop 12/23/18 at 11:10; Status DC Info (Tpn Per Pharmacy) 1 each PRN DAILY PRN MC SEE COMMENTS Last administered on 12/26/18at 12:03; Start 12/23/18 at 14:00 Sodium Chloride 90 meq/Potassium Chloride 50 meq/ Potassium Phosphate 20.4 mmol/ Magnesium Sulfate 18 meq/ Calcium Gluconate 5 meq/ Multivitamins 10 ml/Chromium / Copper/Manganese/ Seleni/Zn 1 ml/ Total Parenteral Nutrition/Amino Acids/ Dextrose/ Fat Emulsion Intravenous 1,512 ml @ 63 mls/hr TPN CONT IV Last administered on 12/23/18 21:37; Start 12/23/18 at 22:00; Stop 12/24/18 at 21:59; Status DC Alprazolam (Xanax) 0.25 mg PRN BID PRN PO ANXIETY / AGITATION Last administered on 12/25/18 09:25; Start 12/23/18 at 23:00; Stop 12/25/18 at 17:54; Status DC Lorazepam (Ativan) 1 mg PRN Q4HRS PRN IV ANXIETY / AGITATION Last administered on 12/24/18at 09:21; Start 12/24/18 at 08:45; Stop 12/24/18 at 10:19; Status DC Pantoprazole Sodium (PROTONIX VIAL for IV PUSH) 40 mg DAILYAC IVP Last administered on 12/26/18at 06:07; Start 12/24/18 at 09:30 Lorazepam (Ativan) 0.5 mg PRN Q4HRS PRN IV ANXIETY / AGITATION Last administered on 12/25/18at 04:47; Start 12/24/18 at 10:30; Stop 12/25/18 at 10:22; Status DC Sodium Chloride 45 meq/Sodium Acetate 45 meq/ Potassium Chloride 50 meq/ Potassium Phosphate 20.4 mmol/Magnesium Sulfate 18 meq/ Calcium Gluconate 5 meq / Multivitamins 10 ml/Chromium/ Copper/Manganese/ Seleni/Zn 1 ml/ Total Parenteral Nutrition/Amino Acids/Dextrose/ Fat Emuls... 1,512 ml @ 63 mls/hr TPN CONT IV Last administered on 12/24/18at 21:57; Start 12/24/18 at 22:00; Stop 12/25/18 at 21:59; Status DC Phenyleph/Shark Oil/Min Oil/Petrol (Preparation H) 1 ranjith PRN Q4HRS PRN RC RECTAL PAIN; Start 12/24/18 at 12:45; Stop 12/25/18 at 20:20; Status DC Sodium Chloride 45 meq/Sodium Acetate 45 meq/ Potassium Chloride 50 meq/ Potassium Phosphate 20.4 mmol/Magnesium Sulfate 18 meq/ Calcium Gluconate 5 meq / Multivitamins 10 ml/Chromium/ Copper/Manganese/ Seleni/Zn 1 ml/ Total Parenteral Nutrition/Amino Acids/Dextrose/ Fat Emuls... 1,512 ml @ 63 mls/hr TPN CONT IV Last administered on 12/26/18at 00:34; Start 12/25/18 at 22:00; Stop 12/26/18 at 21:59 Neomycin/ Polymyxin/ Bacitracin (Triple Antibiotic Ointment) 1 pkt PRN TID PRN TP skin around rectum, post op Last administered on 12/26/18at 09:58; Start at 14:30 Alprazolam (Xanax) 0.25 mg PRN Q8HRS PRN PO ANXIETY / AGITATION Last administered on 12/26/18at 09:59; Start 12/25/18 at 18:00 Morphine Sulfate (Morphine Sulfate) 2 mg PRN Q6HRS PRN IV PAIN Last administered on 12/26/18at 06:51; Start 12/25/18 at 18:00 Guaifenesin (Mucinex) 600 mg BID PO Last administered on 12/26/18at 11:00; Start 12/26/18 at 11:00 Guaifenesin (Mucinex) 600 mg BID PO ; Start 12/26/18 at 11:00; Status UNV Guaifenesin/ Codeine Phosphate (Robitussin Ac) 5 ml PRN Q6HRS PRN PO COUGH Last administered on 12/26/18at 10:41; Start 12/26/18 at 10:30 Sodium Acetate 90 meq/Potassium Chloride 50 meq/ Potassium Phosphate 13.6 mmol/ Magnesium Sulfate 18 meq/ Calcium Gluconate 5 meq/ Multivitamins 10 ml/Chromium / Copper/Manganese/ Seleni/Zn 1 ml/ Total Parenteral Nutrition/Amino Acids/ Dextrose/ Fat Emulsion Intravenous 1,512 ml @ 63 mls/hr TPN CONT IV ; Start at 22:00; Stop 12/27/18 at 21:59 Active Scripts Active Chlorhexidine Gluconate 473 Ml Mouthwash 473 Ml MM BID 7 Days Vitamin C (Ascorbate Calcium) 500 Mg Tablet 500 Mg PO DAILY 30 Days Slow Release Iron (Ferrous Sulfate) 250 Mg Tablet.er 250 Mg PO DAILY 30 Days Protonix (Pantoprazole Sodium) 40 Mg Granpkt.dr 40 Mg PO DAILY 30 Days Reported Alprazolam 0.25 Mg Tablet 0.25 Mg PO DAILY Metformin Hcl Er (Metformin Hcl) 500 Mg Tab.er.24h 1 Tab PO DAILY Namenda (Memantine Hcl) 10 Mg Tablet 1 Tab PO BID Losartan Potassium 100 Mg Tablet 100 Mg PO DAILY Spironolactone 25 Mg Tablet 1 Tab PO DAILY Ventolin Hfa Inhaler (Albuterol Sulfate) 18 Gm Hfa.aer.ad 2 Puff INH Q4HRS Cymbalta (Duloxetine Hcl) 20 Mg Capsule.dr 90 Mg PO DAILY Requip (Ropinirole Hcl) 1 Mg Tablet 3 Mg PO DAILY Amlodipine Besylate 10 Mg Tablet 10 Mg PO DAILY Vitals/I & O Vital Sign - Last 24 Hours 12/25/18 12/25/18 12/25/18 12/25/18 18:26 19:00 19:07 20:00 Temp 97.9 97.9 Pulse 94 Resp 18 B/P (MAP) 114/68 (83) Pulse Ox 98 95 O2 Delivery Nasal Cannula Nasal Cannula Nasal Cannula Nasal Cannula O2 Flow Rate 3.0 3.0 3.0 3.0 12/25/18 12/25/18 12/26/18 12/26/18 23:00 23:16 00:33 01:03 Temp 98.4 98.4 Pulse 93 Resp 22 20 18 B/P (MAP) 118/72 (87) Pulse Ox 97 100 100 O2 Delivery Nasal Cannula Nasal Cannula Nasal Cannula O2 Flow Rate 3.0 3.0 3.0 12/26/18 12/26/18 12/26/18 12/26/18 03:00 03:00 06:51 07:00 Temp 97.7 98.4 97.7 98.4 Pulse 85 85 Resp 20 20 16 B/P (MAP) 128/80 (96) 138/92 (107) Pulse Ox 97 100 100 95 O2 Delivery Nasal Cannula Nasal Cannula Nasal Cannula Nasal Cannula O2 Flow Rate 3.0 3.0 3.0 3.0 12/26/18 12/26/18 12/26/18 12/26/18 07:15 09:00 10:01 10:26 Pulse 95 85 B/P (MAP) 144/72 138/92 Pulse Ox 99 O2 Delivery Nasal Cannula Nasal Cannula O2 Flow Rate 3.0 3.0 12/26/18 12/26/18 12/26/18 11:00 13:25 15:17 Temp 98.1 98.1 Pulse 95 Resp 18 B/P (MAP) 144/72 (96) Pulse Ox 100 99 99 O2 Delivery Room Air Nasal Cannula Nasal Cannula O2 Flow Rate 3.0 3.0 Intake and Output 12/25/18 12/25/18 12/26/18 15:01 23:01 07:01 Intake Total 0 ml 0 ml Balance 0 ml 0 ml ISACC SERRATO MD Dec 26, 2018 16:07
--- NOTE | 2018-12-26 17:41 | NUR ---
Dr. Balderrama paged in regards to this patients new slight redness on abdomen, with distention. Pt is still hard of breathing. No new orders at this time. Dr. Balderrama to round later and put in orders at that time. Will continue to monitor.
--- NOTE | 2018-12-26 18:39 | NUR ---
Dr. Balderrama assessed, no new orders at this time. Said if possible we could place NG tube to help with discomfort.
[2018-12-26 19:00] VITALS: BP 132/87
--- NOTE | 2018-12-26 19:04 | NUR ---
Pt states she is feeling very anxious and needs something to calm her down. She asks where her daughter is. Pt is informed that the doctor stated that if she lets me I can put in an NG to help with discomfort. Bessy her daughter was also called. Will wait for Bessy to insert NG, Bessy will be arriving around 2130 this evening.
[2018-12-26] MEDS ORDERED: BENZOCAINE ONE 20% MUCOSAL SPRAY. MM (19:15)
[2018-12-26] MEDS: rOPINIRole 1 MG TABLET. PO SCH (21:25)
[2018-12-26] MEDS: ACETAMINOPHEN 325 MG TABLET. PO PRN (21:29)
[2018-12-26] MEDS ORDERED: DEXTROSE 70% IV SCH ×10 (22:00)
[2018-12-26] MEDS ORDERED: AMINO ACID IV SCH ×10 (22:00)
[2018-12-26] MEDS ORDERED: TOTAL PARENTERAL NUTRITION IV SCH ×10 (22:00)
[2018-12-26] MEDS ORDERED: [UNRECOGNIZED DRUG - OTHER] IV SCH ×10 (22:00)
[2018-12-26 23:00] VITALS: BP 108/73
[2018-12-27] MEDS: MORPHINE SULFATE 4 MG/ML VIAL. IV PRN ×2 (01:34→07:39)
[2018-12-27] MEDS: ONDANSETRON PF 4 MG/2 ML VIAL. IV PRN ×3 (01:41→21:14)
[2018-12-27 03:00] VITALS: BP 114/72
[2018-12-27] MEDS: ALBUTEROL SULFATE 2.5 MG/3 ML NEBU. NEB SCH ×6 (03:22→23:27)
--- NOTE | 2018-12-27 04:15 | NUR ---
Educated pt. and her daughter Bessy about the importance of a NG tube. The pt. refused to have one placed and the daughter stated that it was okay to hold off on placing the NG until later today and they will discuss it w/ the
[2018-12-27] MEDS: ACETAMINOPHEN 325 MG TABLET. PO PRN (04:39)
[2018-12-27 06:44] LABS: ALBUMIN 2.4 g/dL (3.4-5.0); ALBUMIN/GLOBULIN RATIO 0.6 (1.0-1.7); CREATININE 0.8 mg/dL (0.6-1.0); GFR 84.6; MAGNESIUM 2.2 mg/dL (1.8-2.4); PHOSPHORUS 3.9 mg/dL (2.6-4.7); POTASSIUM 4.4 mmol/L (3.5-5.1); TOTAL BILIRUBIN 0.3 mg/dL (0.2-1.0); TOTAL PROTEIN 6.4 g/dL (6.4-8.2)
[2018-12-27 07:00] VITALS: BP 116/76
[2018-12-27] MEDS: PANTOPRAZOLE IV PUSH 40 MG VIAL. IVP SCH (07:39)
[2018-12-27] MEDS: INSULIN LISPRO 300 UNITS/3 ML INSULN.PEN. SQ SCH ×3 (08:00→17:00)
[2018-12-27] MEDS: FERROUS SULFATE 325 MG TABLET. PO SCH (08:00)
[2018-12-27] MEDS: SPIRONOLACTONE 25 MG TABLET PO SCH (08:24)
[2018-12-27] MEDS: LOSARTAN POTASSIUM 50 MG TABLET. PO SCH (08:24)
[2018-12-27] MEDS: DOCUSATE SODIUM 100 MG CAPSULE. PO SCH (08:24)
[2018-12-27] MEDS: amLODIPine BESYLATE 10 MG TABLET PO SCH (08:25)
[2018-12-27] MEDS: ASCORBIC ACID 500 MG TABLET PO SCH (08:25)
[2018-12-27] MEDS: DULoxetine HCL 30 MG CAPSULE.DR PO SCH (08:25)
[2018-12-27] MEDS: MEMANTINE 10 MG TABLET. PO SCH ×2 (08:25→21:00)
[2018-12-27] MEDS: CEFEPIME HCL IV Push 2 GM VIAL. IVP SCH ×2 (08:35→21:15)
[2018-12-27] MEDS: ENOXAPARIN 40 MG/0.4 ML SYRINGE. SQ SCH (08:35)
[2018-12-27] MEDS: CHLORHEXIDINE 0.12% 15 ML MOUTHWASH. MM SCH ×2 (08:42→21:15)
--- NOTE | 2018-12-27 08:44 | NUR ---
Pt. c/o nausea not revieved by Miguelina. Pt. educated on necessity of NG tube. Pt. states she would call her daughter to ask for placement.
--- NOTE | 2018-12-27 09:10 | NUR ---
16 fr NG placed to L nare. Immediate return of thing green fluid, approximately 200cc. Placement also verified via ausultation. KUB ordered per prototcol.
--- NOTE | 2018-12-27 09:12 | PDOC ---
PULMONARY PROGRESS NOTES Subjective PT NOT MORE SOA NG IN PLACE FEELS BETTER Vitals Vital Signs Date Time Temp Pulse Resp B/P (MAP) Pulse Ox O2 Delivery O2 Flow Rate FiO2 12/27/18 08:24 Nasal Cannula 2.0 12/27/18 07:39 20 98 12/27/18 07:00 97.6 80 116/76 (89) 97.6 General: Alert, No acute distress Lungs: Clear Cardiovascular: S1 Abdomen: Soft, Other (distended) Extremities: No Edema Skin: Warm Labs Laboratory Tests Test 12/25/18 10:30 12/25/18 11:15 12/25/18 11:36 12/25/18 16:00 O2 Saturation 93 % (92-99) Arterial Blood pH 7.46 (7.35-7.45) Arterial Blood pCO2 at Patient Temp 35 mmHg (35-46) Arterial Blood pO2 at Patient Temp 66 mmHg (65-108) Arterial Blood HCO3 24 mmol/L (21-28) Arterial Blood Base Excess 0 mmol/L (-3-3) FiO2 2 lpm nc Lactic Acid Level 0.9 mmol/L (0.4-2.0) Glucose (Fingerstick) 152 mg/dL (70-99) Ammonia < 10 mcmol/L (11-34) Test 12/25/18 16:12 12/26/18 00:29 12/26/18 05:30 12/26/18 12:41 Glucose (Fingerstick) 159 mg/dL (70-99) 171 mg/dL (70-99) 175 mg/dL (70-99) White Blood Count 10.1 x10^3/uL (4.0-11.0) Red Blood Count 3.39 x10^6/uL (3.50-5.40) Hemoglobin 8.0 g/dL (12.0-15.5) Hematocrit 26.6 % (36.0-47.0) Mean Corpuscular Volume 79 fL (79-100) Mean Corpuscular Hemoglobin 24 pg (25-35) Mean Corpuscular Hemoglobin Concent 30 g/dL (31-37) Red Cell Distribution Width 23.1 % (11.5-14.5) Platelet Count 250 x10^3/uL (140-400) Neutrophils (%) (Auto) 75 % (31-73) Lymphocytes (%) (Auto) 14 % (24-48) Monocytes (%) (Auto) 10 % (0-9) Eosinophils (%) (Auto) 1 % (0-3) Basophils (%) (Auto) 1 % (0-3) Neutrophils # (Auto) 7.5 x10^3uL (1.8-7.7) Lymphocytes # (Auto) 1.4 x10^3/uL (1.0-4.8) Monocytes # (Auto) 1.0 x10^3/uL (0.0-1.1) Eosinophils # (Auto) 0.1 x10^3/uL (0.0-0.7) Basophils # (Auto) 0.1 x10^3/uL (0.0-0.2) Sodium Level 142 mmol/L (136-145) Potassium Level 4.4 mmol/L (3.5-5.1) Chloride Level 109 mmol/L (98-107) Carbon Dioxide Level 25 mmol/L (21-32) Anion Gap 8 (6-14) Blood Urea Nitrogen 27 mg/dL (7-20) Creatinine 0.7 mg/dL (0.6-1.0) Estimated GFR (Cockcroft-Gault) 98.7 Glucose Level 151 mg/dL (70-99) Calcium Level 9.4 mg/dL (8.5-10.1) Phosphorus Level 4.1 mg/dL (2.6-4.7) Magnesium Level 2.1 mg/dL (1.8-2.4) Test 12/26/18 19:13 12/27/18 05:30 12/27/18 07:05 Glucose (Fingerstick) 180 mg/dL (70-99) 183 mg/dL (70-99) Sodium Level 141 mmol/L (136-145) Potassium Level 4.4 mmol/L (3.5-5.1) Chloride Level 105 mmol/L (98-107) Carbon Dioxide Level 26 mmol/L (21-32) Anion Gap 10 (6-14) Blood Urea Nitrogen 31 mg/dL (7-20) Creatinine 0.8 mg/dL (0.6-1.0) Estimated GFR (Cockcroft-Gault) 84.6 BUN/Creatinine Ratio 39 (6-20) Glucose Level 173 mg/dL (70-99) Calcium Level 9.0 mg/dL (8.5-10.1) Phosphorus Level 3.9 mg/dL (2.6-4.7) Magnesium Level 2.2 mg/dL (1.8-2.4) Total Bilirubin 0.3 mg/dL (0.2-1.0) Aspartate Amino Transf (AST/SGOT) 18 U/L (15-37) Alanine Aminotransferase (ALT/SGPT) 20 U/L (14-59) Alkaline Phosphatase 52 U/L (46-116) Total Protein 6.4 g/dL (6.4-8.2) Albumin 2.4 g/dL (3.4-5.0) Albumin/Globulin Ratio 0.6 (1.0-1.7) Laboratory Tests Test 12/26/18 12:41 12/26/18 19:13 12/27/18 05:30 12/27/18 07:05 Glucose (Fingerstick) 175 mg/dL (70-99) 180 mg/dL (70-99) 183 mg/dL (70-99) Sodium Level 141 mmol/L (136-145) Potassium Level 4.4 mmol/L (3.5-5.1) Chloride Level 105 mmol/L (98-107) Carbon Dioxide Level 26 mmol/L (21-32) Anion Gap 10 (6-14) Blood Urea Nitrogen 31 mg/dL (7-20) Creatinine 0.8 mg/dL (0.6-1.0) Estimated GFR (Cockcroft-Gault) 84.6 BUN/Creatinine Ratio 39 (6-20) Glucose Level 173 mg/dL (70-99) Calcium Level 9.0 mg/dL (8.5-10.1) Phosphorus Level 3.9 mg/dL (2.6-4.7) Magnesium Level 2.2 mg/dL (1.8-2.4) Total Bilirubin 0.3 mg/dL (0.2-1.0) Aspartate Amino Transf (AST/SGOT) 18 U/L (15-37) Alanine Aminotransferase (ALT/SGPT) 20 U/L (14-59) Alkaline Phosphatase 52 U/L (46-116) Total Protein 6.4 g/dL (6.4-8.2) Albumin 2.4 g/dL (3.4-5.0) Albumin/Globulin Ratio 0.6 (1.0-1.7) Medications Active Scripts Medications Dose Route/Sig Max Daily Dose Days Date Category Chlorhexidine Gluconate 473 Ml Mouthwash 473 Ml MM BID 7 12/10/18 Rx Vitamin C (Ascorbate Calcium) 500 Mg Tablet 500 Mg PO DAILY 30 11/22/18 Rx Slow Release Iron (Ferrous Sulfate) 250 Mg Tablet.er 250 Mg PO DAILY 30 11/22/18 Rx Protonix (Pantoprazole Sodium) 40 Mg Granpkt.dr 40 Mg PO DAILY 30 11/22/18 Rx Metformin Hcl Er (Metformin Hcl) 500 Mg Tab.er.24h 1 Tab PO DAILY 11/12/16 Reported Namenda (Memantine Hcl) 10 Mg Tablet 1 Tab PO BID 11/12/16 Reported Losartan Potassium 100 Mg Tablet 100 Mg PO DAILY 11/12/16 Reported Spironolactone 25 Mg Tablet 1 Tab PO DAILY 11/12/16 Reported Ventolin Hfa Inhaler (Albuterol Sulfate) 18 Gm Hfa.aer.ad 2 Puff INH Q4HRS 11/11/16 Reported Cymbalta (Duloxetine Hcl) 20 Mg Capsule.dr 90 Mg PO DAILY 01/27/16 Reported Requip (Ropinirole Hcl) 1 Mg Tablet 3 Mg PO DAILY 01/27/16 Reported Amlodipine Besylate 10 Mg Tablet 10 Mg PO DAILY 01/27/16 Reported Impression . 1. Acute hypoxic respiratory failure secondary to underlying chronic obstructive pulmonary disease and increasing abdominal distention 2. Gastrointestinal bleed/cecal ulceration by colonoscopy, status post laparoscopic-assisted right colon resection and hemorrhoidectomy. 3. ileus. 4. Underlying chronic obstructive pulmonary disease. 5. Abnormal CT chest with focal opacity in the right upper lobe, could be nodule/ATELECTASIS Plan . CONTINUE SUPPORT NG ASPIRATE IS NEBS FOLLOW UP CT IN 4 MONTHS D/W DAUGHTER MARIA ALEJANDRA VALENTINE MD Dec 27, 2018 09:12
[2018-12-27] MEDS ORDERED: BENZOCAINE ONE 20% MUCOSAL SPRAY. MM (09:15)
--- NOTE | 2018-12-27 09:38 | PDOC ---
Infectious Disease Note Vital Signs: Vital Signs Vital Signs Date Time Temp Pulse Resp B/P (MAP) Pulse Ox O2 Delivery O2 Flow Rate FiO2 12/27/18 08:24 Nasal Cannula 2.0 12/27/18 07:39 20 98 12/27/18 07:00 97.6 80 116/76 (89) 97.6 Medications: Inpatient Meds: Current Medications Medications (Trade) Dose Ordered Sig/Buffy Start Time Stop Time Status Last Admin Dose Admin Acetaminophen (Tylenol) 650 mg PRN Q6HRS PRN 12/26/18 21:00 12/27/18 04:39 650 MG Albuterol Sulfate (Ventolin Neb Soln) 2.5 mg PRN Q2HRS PRN 12/21/18 17:30 12/26/18 10:26 2.5 MG Alprazolam (Xanax) 0.25 mg PRN Q8HRS PRN 12/25/18 18:00 12/26/18 09:59 0.25 MG Amlodipine Besylate (Norvasc) 10 mg DAILY 12/14/18 17:00 12/26/18 10:01 10 MG Artificial Tears (Artificial Tears) 1 drop PRN Q15MIN PRN 12/18/18 08:00 12/20/18 21:28 1 DROP Ascorbic Acid (Vitamin C) 500 mg DAILY 12/14/18 17:00 12/22/18 10:30 500 MG Benzocaine (Hurricaine One) 1 spray 1X ONCE 12/27/18 09:15 12/27/18 09:16 DC 12/27/18 09:00 1 SPRAY Bupivacaine HCl/ Epinephrine Bitart (Sensorcain-Mpf Epi 0.5%-[id number]) 30 ml STK-MED ONCE 12/17/18 09:41 12/17/18 09:43 DC 12/17/18 10:06 19 ML Calcium Carbonate/ Glycine (Tums) 500 mg PRN AFTMEALHC PRN 12/21/18 12:15 12/21/18 13:10 500 MG Cefazolin Sodium/ Dextrose 50 ml @ 100 mls/hr 1X ONCE 12/17/18 07:45 12/17/18 08:18 DC 12/17/18 08:07 100 MLS/HR Cefepime HCl (Maxipime) 2 gm Q12HR 12/21/18 10:00 12/27/18 08:35 2 GM Chlorhexidine Gluconate (Peridex) 15 ml BID 12/14/18 21:00 12/27/18 08:42 15 ML Desflurane (Suprane) 60 ml STK-MED ONCE 12/17/18 09:23 12/17/18 09:26 DC Dexamethasone Sodium Phosphate (Decadron) 20 mg STK-MED ONCE 12/17/18 07:54 12/17/18 07:56 DC Dextrose (Dextrose 50%-Water Syringe) 12.5 gm PRN Q15MIN PRN 12/19/18 16:45 Docusate Sodium (Colace) 100 mg DAILY 12/18/18 10:00 12/26/18 10:01 100 MG Duloxetine HCl (Cymbalta) 90 mg DAILY 12/14/18 17:00 12/22/18 10:30 90 MG Enoxaparin Sodium (Lovenox 40mg Syringe) 40 mg Q24H 12/19/18 09:00 12/27/18 08:35 40 MG Fentanyl Citrate (Fentanyl 2ml Vial) 100 mcg STK-MED ONCE 12/17/18 07:21 12/17/18 07:24 DC Ferrous Sulfate (Feosol) 325 mg DAILYWBKFT 12/14/18 17:00 12/22/18 10:30 325 MG Glycopyrrolate (Robinul) 1 mg STK-MED ONCE 12/17/18 08:21 12/17/18 08:24 DC Guaifenesin (Mucinex) 600 mg BID 12/26/18 11:00 UNV Guaifenesin/ Codeine Phosphate (Robitussin Ac) 5 ml PRN Q6HRS PRN 12/26/18 10:30 12/26/18 10:41 5 ML Hydrocortisone Sodium Succinate (Solu-CORTEF) 100 mg STK-MED ONCE 12/17/18 07:54 12/17/18 07:56 DC Hydromorphone HCl (Dilaudid) 0.5 mg PRN Q10MIN PRN 12/17/18 07:00 12/18/18 06:59 DC Info (Tpn Per Pharmacy) 1 each PRN DAILY PRN 12/23/18 14:00 12/26/18 12:03 1 EACH Insulin Human Lispro (HumaLOG) 0-5 UNITS TIDWMEALS 12/19/18 17:00 Ketorolac Tromethamine (Toradol 15mg Vial) 15 mg Q6HRS 12/17/18 12:00 12/18/18 10:00 DC 12/18/18 05:39 15 MG Levofloxacin/ Dextrose 100 ml @ 100 mls/hr 1X ONCE 12/19/18 21:00 12/19/18 21:59 DC 12/19/18 20:56 100 MLS/HR Lidocaine HCl (Lidocaine Pf 2% Vial) 5 ml STK-MED ONCE 12/17/18 07:21 12/17/18 07:23 DC Lidocaine HCl (Xylocaine-Mpf 1% 2ml Vial) 2 ml PRN 1X PRN 12/17/18 07:00 12/18/18 06:59 DC Lidocaine/Sodium Bicarbonate (Buffered Lidocaine 1%) 3 ml 1X ONCE 12/23/18 11:00 12/23/18 11:10 DC 12/23/18 11:24 3 ML Lorazepam (Ativan) 0.5 mg PRN Q4HRS PRN 12/24/18 10:30 12/25/18 10:22 DC 12/25/18 04:47 0.5 MG Losartan Potassium (Cozaar) 100 mg DAILY 12/14/18 17:00 12/22/18 10:29 100 MG Memantine (Namenda) 10 mg BID 12/14/18 21:00 12/26/18 21:25 10 MG Midazolam HCl (Versed) 2 mg PRN 1X PRN 12/16/18 07:15 12/17/18 07:14 DC Morphine Sulfate (Morphine Sulfate) 2 mg PRN Q6HRS PRN 12/25/18 18:00 12/27/18 07:39 2 MG Neomycin/ Polymyxin/ Bacitracin (Triple Antibiotic Ointment) 1 pkt PRN TID PRN 12/25/18 14:30 12/26/18 09:58 1 PKT Neostigmine Methylsulfate (Bloxiverz) 10 mg STK-MED ONCE 12/17/18 08:21 12/17/18 08:24 DC Nicotine (Nicoderm Cq 14mg) 1 patch PRN DAILY PRN 12/21/18 19:30 12/26/18 09:59 1 PATCH Non-Formulary Medication (Albuterol Sulfate (Ventolin Hfa Inhaler)) 2 puff Q4HRS 12/14/18 20:00 UNV Ondansetron HCl (Zofran) 4 mg PRN Q6HRS PRN 12/19/18 11:30 12/27/18 07:45 4 MG Pantoprazole Sodium (PROTONIX VIAL for IV PUSH) 40 mg DAILYAC 12/24/18 09:30 12/27/18 07:39 40 MG Pantoprazole Sodium (Protonix) 40 mg DAILYAC 12/14/18 17:00 12/24/18 09:25 DC 12/22/18 05:28 40 MG Phenyleph/Shark Oil/Min Oil/Petrol (Preparation H) 1 ranjith PRN Q4HRS PRN 12/24/18 12:45 12/25/18 20:20 DC Phenylephrine HCl (Bogdan-Synephrine Inj) 10 mg STK-MED ONCE 12/17/18 08:23 12/17/18 08:26 DC Polyethylene Glycol (miraLAX Powder BULK BOTTLE) 238 gm 1X ONCE 12/15/18 12:00 12/15/18 12:01 DC 12/15/18 12:48 238 GM Prochlorperazine Edisylate (Compazine) 5 mg PACU PRN PRN 12/17/18 07:00 12/18/18 06:59 DC Propofol 20 ml @ As Directed STK-MED ONCE 12/17/18 07:21 12/17/18 07:23 DC Ringer's Solution 1,000 ml @ 30 mls/hr Q24H 12/17/18 07:00 12/17/18 18:59 DC 12/17/18 10:34 30 MLS/HR Rocuronium [place] (Zemuron) 50 mg STK-MED ONCE 12/17/18 07:21 12/17/18 07:23 DC Ropinirole HCl (Requip) 3 mg QHS 12/14/18 21:00 12/26/18 21:25 3 MG Sodium Acetate 90 meq/Potassium Chloride 50 meq/ Potassium Phosphate 13.6 mmol/Magnesium Sulfate 18 meq/ Calcium Gluconate 5 meq/ Multivitamins 10 ml/Chromium/ Copper/Manganese/ Seleni/Zn 1 ml/ Total Parenteral Nutrition/Amino Acids/Dextrose/ Fat Emulsion Intravenous 1,512 ml @ 63 mls/hr TPN CONT 12/26/18 22:00 12/27/18 21:59 12/26/18 21:37 63 MLS/HR Sodium Chloride 45 meq/Sodium Acetate 45 meq/ Potassium Chloride 50 meq/ Potassium Phosphate 20.4 mmol/Magnesium Sulfate 18 meq/ Calcium Gluconate 5 meq/ Multivitamins 10 ml/Chromium/ Copper/Manganese/ Seleni/Zn 1 ml/ Total Parenteral Nutrition/Amino Acids/Dextrose/ Fat Emuls... 1,512 ml @ 63 mls/hr TPN CONT 12/25/18 22:00 12/26/18 21:59 DC 12/26/18 00:34 63 MLS/HR Sodium Chloride 90 meq/Potassium Chloride 50 meq/ Potassium Phosphate 20.4 mmol/Magnesium Sulfate 18 meq/ Calcium Gluconate 5 meq/ Multivitamins 10 ml/Chromium/ Copper/Manganese/ Seleni/Zn 1 ml/ Total Parenteral Nutrition/Amino Acids/Dextrose/ Fat Emulsion Intravenous 1,512 ml @ 63 mls/hr TPN CONT 12/23/18 22:00 12/24/18 21:59 DC 12/23/18 21:37 63 MLS/HR Spironolactone (Aldactone) 25 mg DAILY 12/14/18 17:00 12/26/18 10:42 25 MG Succinylcholine Chloride (Anectine) 200 mg STK-MED ONCE 12/17/18 07:21 12/17/18 07:23 DC Throat Lozenges (Cepacol Sore Throat Lozenge) 1 stella PRN Q2HRS PRN 12/18/18 14:00 12/26/18 10:01 1 STELLA Labs: Lab Laboratory Tests Test 12/26/18 12:41 12/26/18 19:13 12/27/18 05:30 12/27/18 07:05 Glucose (Fingerstick) 175 mg/dL (70-99) 180 mg/dL (70-99) 183 mg/dL (70-99) Sodium Level 141 mmol/L (136-145) Potassium Level 4.4 mmol/L (3.5-5.1) Chloride Level 105 mmol/L (98-107) Carbon Dioxide Level 26 mmol/L (21-32) Anion Gap 10 (6-14) Blood Urea Nitrogen 31 mg/dL (7-20) Creatinine 0.8 mg/dL (0.6-1.0) Estimated GFR (Cockcroft-Gault) 84.6 BUN/Creatinine Ratio 39 (6-20) Glucose Level 173 mg/dL (70-99) Calcium Level 9.0 mg/dL (8.5-10.1) Phosphorus Level 3.9 mg/dL (2.6-4.7) Magnesium Level 2.2 mg/dL (1.8-2.4) Total Bilirubin 0.3 mg/dL (0.2-1.0) Aspartate Amino Transf (AST/SGOT) 18 U/L (15-37) Alanine Aminotransferase (ALT/SGPT) 20 U/L (14-59) Alkaline Phosphatase 52 U/L (46-116) Total Protein 6.4 g/dL (6.4-8.2) Albumin 2.4 g/dL (3.4-5.0) Albumin/Globulin Ratio 0.6 (1.0-1.7) Plan: Plan of Care duplicate note MICHAEL SALINAS MD Dec 27, 2018 09:38
--- NOTE | 2018-12-27 09:49 | RAD ---
Examination: KUB History: NG tube placement Comparison/Correlation: None Findings: Frontal view of the abdomen was obtained. The entire abdomen was not included for purposes of this exam. Enteric tube terminates within the stomach overlying the left subdiaphragmatic region. Minimal bibasilar atelectasis is present. Lumbar spine rods and associated screws are present. Distended mid abdominal small bowel loops are present. Impression: Enteric tube is in place. Distention of small bowel likely representing obstruction. Electronically signed by: Omar Galindo MD (12/27/2018 9:44 AM) [id number]
--- NOTE | 2018-12-27 09:53 | PDOC ---
PROGRESS NOTES Chief Complaint Chief Complaint Patient much more alert today compared to yesterday. Unclear the etiology of her transient episode reassurance has been provided If not improved 12/28 consider SBFT History of Present Illness History of Present Illness Assessment/Plan 1. Acute hypoxic respiratory failure secondary to underlying chronic obstructive pulmonary disease and increasing abdominal distention related to ileus: continue supplemental 02. decompress bowel with NG tube to suction.. GI and Gen sx following. NPO status. PICC in place with TPN. 2. S/p right colon resection and hemorrhoidectomy secondary to bleeding cecal ulcer, path negative for malignancy . 3. Underlying COPD. bronchodilator therapy 4. VISHNU, resolving 5. Sepsis/Leukopenia. started cefepime. check cultures. apprec ID - unclear if there is actually a pneumonia, mostly atelectatic lungs 6. Gi bleed acute ,Questionable GI bleed with anemia marked anemia POA. hb stable Colonoscopy in 11/2017 showed diverticulosis, EGD 11/2018 showed non-erosive gastritis Operative Note Date: 12/17/2018 Preoperative diagnosis: GI bleed cecal ulceration by colonoscopy with active bleeding hemorrhoids Postoperative diagnosis: Same Procedure: Laparoscopic-assisted right colon resection and hemorrhoidectomy Surgeon: Jan Specimen: Right colon and hemorrhoids Vitals Vitals Vital Signs Date Time Temp Pulse Resp B/P (MAP) Pulse Ox O2 Delivery O2 Flow Rate FiO2 12/27/18 08:24 Nasal Cannula 2.0 12/27/18 07:39 20 98 12/27/18 07:00 97.6 80 116/76 (89) 97.6 Physical Exam Physical Exam GENERAL: Lying down, tired appearance, HEENT: Oral cavity clear NECK: Supple LUNGS: Soft wheeze HEART: S1, S2 ABDOMEN: Distended, soft, hypoactive BS. dressings dry EXTREMITIES: No edema or cyanosis. SKIN: No rash. Rectal wound clean NEUROLOGIC: Alert, responds appropriately RUE-PICC (12/23) clean General: Alert, Oriented X3, Cooperative, mild distress Heart: Regular rate, Normal S1, Normal S2, No murmurs Lungs: Clear Abdomen: Soft Extremities: No clubbing, No cyanosis, No edema Skin: No significant lesion Labs LABS STATUS: ADM IN ORD. PHYSICIAN: RADHA JUSTICE REASON: recent colon resection, recheck SBO vs ileus PROCEDURE: ACUTE ABDOMEN SERIES ACUTE ABDOMEN SERIES History: Recent colon resection, ileus versus small bowel obstruction Comparison: Abdomen radiograph 12/22/2018; chest radiograph 12/21/2018 Findings: Single AP view the chest and single supine and upright views of the abdomen are submitted. There is again degree of elevation of left hemidiaphragm. There is probable small pleural effusion with adjacent atelectasis or infiltrate, also mild right base atelectasis. There is now a right extremity PICC with the tip near the cavoatrial junction right atrium. Prominence of the mediastinal width is stable. There are low lung volumes. Heart size is similar. No pneumothorax is identified. There is persistent although somewhat decreased gaseous distention of the large and small bowel also with air-fluid levels, relative paucity of gas in the pelvis. There is enteric catheter coursing into the region of stomach. There is again posterolateral fusion hardware of the lumbar spine. Impression: 1. There is persistent although somewhat decreased gaseous distention of the large and small bowel again which may be due to due to ileus although distal obstruction not excluded. 2. There is likely at least small left pleural effusion with adjacent atelectasis or infiltrate also mild right base atelectasis. Electronically signed by: Sherrill Kaur MD (12/24/2018 3:31 PM) [id number] DICTATED and SIGNED BY: SHERRILL KAUR MD DATE: 12/24/18 1528 REASON: NG placement verification [id number] PROCEDURE: KUB Examination: KUB History: NG tube placement Comparison/Correlation: None Findings: Frontal view of the abdomen was obtained. The entire abdomen was not included for purposes of this exam. Enteric tube terminates within the stomach overlying the left subdiaphragmatic region. Minimal bibasilar atelectasis is present. Lumbar spine rods and associated screws are present. Distended mid abdominal small bowel loops are present. Impression: Enteric tube is in place. Distention of small bowel likely representing obstruction. Electronically signed by: Omar Chaudhari MD (12/27/2018 9:44 AM) [id number] DICTATED and SIGNED BY: OMAR CHAUDHARI MD DATE: 12/27/18 0942 Laboratory Tests Test 12/26/18 12:41 12/26/18 19:13 12/27/18 05:30 12/27/18 07:05 Glucose (Fingerstick) 175 mg/dL (70-99) 180 mg/dL (70-99) 183 mg/dL (70-99) Sodium Level 141 mmol/L (136-145) Potassium Level 4.4 mmol/L (3.5-5.1) Chloride Level 105 mmol/L (98-107) Carbon Dioxide Level 26 mmol/L (21-32) Anion Gap 10 (6-14) Blood Urea Nitrogen 31 mg/dL (7-20) Creatinine 0.8 mg/dL (0.6-1.0) Estimated GFR (Cockcroft-Gault) 84.6 BUN/Creatinine Ratio 39 (6-20) Glucose Level 173 mg/dL (70-99) Calcium Level 9.0 mg/dL (8.5-10.1) Phosphorus Level 3.9 mg/dL (2.6-4.7) Magnesium Level 2.2 mg/dL (1.8-2.4) Total Bilirubin 0.3 mg/dL (0.2-1.0) Aspartate Amino Transf (AST/SGOT) 18 U/L (15-37) Alanine Aminotransferase (ALT/SGPT) 20 U/L (14-59) Alkaline Phosphatase 52 U/L (46-116) Total Protein 6.4 g/dL (6.4-8.2) Albumin 2.4 g/dL (3.4-5.0) Albumin/Globulin Ratio 0.6 (1.0-1.7) Comment Review of Relevant I have reviewed the following items abdifatah (where applicable) has been applied. Labs Laboratory Tests Test 12/25/18 10:30 12/25/18 11:15 12/25/18 11:36 12/25/18 16:00 O2 Saturation 93 % (92-99) Arterial Blood pH 7.46 (7.35-7.45) Arterial Blood pCO2 at Patient Temp 35 mmHg (35-46) Arterial Blood pO2 at Patient Temp 66 mmHg (65-108) Arterial Blood HCO3 24 mmol/L (21-28) Arterial Blood Base Excess 0 mmol/L (-3-3) FiO2 2 lpm nc Lactic Acid Level 0.9 mmol/L (0.4-2.0) Glucose (Fingerstick) 152 mg/dL (70-99) Ammonia < 10 mcmol/L (11-34) Test 12/25/18 16:12 12/26/18 00:29 12/26/18 05:30 12/26/18 12:41 Glucose (Fingerstick) 159 mg/dL (70-99) 171 mg/dL (70-99) 175 mg/dL (70-99) White Blood Count 10.1 x10^3/uL (4.0-11.0) Red Blood Count 3.39 x10^6/uL (3.50-5.40) Hemoglobin 8.0 g/dL (12.0-15.5) Hematocrit 26.6 % (36.0-47.0) Mean Corpuscular Volume 79 fL (79-100) Mean Corpuscular Hemoglobin 24 pg (25-35) Mean Corpuscular Hemoglobin Concent 30 g/dL (31-37) Red Cell Distribution Width 23.1 % (11.5-14.5) Platelet Count 250 x10^3/uL (140-400) Neutrophils (%) (Auto) 75 % (31-73) Lymphocytes (%) (Auto) 14 % (24-48) Monocytes (%) (Auto) 10 % (0-9) Eosinophils (%) (Auto) 1 % (0-3) Basophils (%) (Auto) 1 % (0-3) Neutrophils # (Auto) 7.5 x10^3uL (1.8-7.7) Lymphocytes # (Auto) 1.4 x10^3/uL (1.0-4.8) Monocytes # (Auto) 1.0 x10^3/uL (0.0-1.1) Eosinophils # (Auto) 0.1 x10^3/uL (0.0-0.7) Basophils # (Auto) 0.1 x10^3/uL (0.0-0.2) Sodium Level 142 mmol/L (136-145) Potassium Level 4.4 mmol/L (3.5-5.1) Chloride Level 109 mmol/L (98-107) Carbon Dioxide Level 25 mmol/L (21-32) Anion Gap 8 (6-14) Blood Urea Nitrogen 27 mg/dL (7-20) Creatinine 0.7 mg/dL (0.6-1.0) Estimated GFR (Cockcroft-Gault) 98.7 Glucose Level 151 mg/dL (70-99) Calcium Level 9.4 mg/dL (8.5-10.1) Phosphorus Level 4.1 mg/dL (2.6-4.7) Magnesium Level 2.1 mg/dL (1.8-2.4) Test 12/26/18 19:13 12/27/18 05:30 12/27/18 07:05 Glucose (Fingerstick) 180 mg/dL (70-99) 183 mg/dL (70-99) Sodium Level 141 mmol/L (136-145) Potassium Level 4.4 mmol/L (3.5-5.1) Chloride Level 105 mmol/L (98-107) Carbon Dioxide Level 26 mmol/L (21-32) Anion Gap 10 (6-14) Blood Urea Nitrogen 31 mg/dL (7-20) Creatinine 0.8 mg/dL (0.6-1.0) Estimated GFR (Cockcroft-Gault) 84.6 BUN/Creatinine Ratio 39 (6-20) Glucose Level 173 mg/dL (70-99) Calcium Level 9.0 mg/dL (8.5-10.1) Phosphorus Level 3.9 mg/dL (2.6-4.7) Magnesium Level 2.2 mg/dL (1.8-2.4) Total Bilirubin 0.3 mg/dL (0.2-1.0) Aspartate Amino Transf (AST/SGOT) 18 U/L (15-37) Alanine Aminotransferase (ALT/SGPT) 20 U/L (14-59) Alkaline Phosphatase 52 U/L (46-116) Total Protein 6.4 g/dL (6.4-8.2) Albumin 2.4 g/dL (3.4-5.0) Albumin/Globulin Ratio 0.6 (1.0-1.7) Laboratory Tests Test 12/26/18 12:41 12/26/18 19:13 12/27/18 05:30 12/27/18 07:05 Glucose (Fingerstick) 175 mg/dL (70-99) 180 mg/dL (70-99) 183 mg/dL (70-99) Sodium Level 141 mmol/L (136-145) Potassium Level 4.4 mmol/L (3.5-5.1) Chloride Level 105 mmol/L (98-107) Carbon Dioxide Level 26 mmol/L (21-32) Anion Gap 10 (6-14) Blood Urea Nitrogen 31 mg/dL (7-20) Creatinine 0.8 mg/dL (0.6-1.0) Estimated GFR (Cockcroft-Gault) 84.6 BUN/Creatinine Ratio 39 (6-20) Glucose Level 173 mg/dL (70-99) Calcium Level 9.0 mg/dL (8.5-10.1) Phosphorus Level 3.9 mg/dL (2.6-4.7) Magnesium Level 2.2 mg/dL (1.8-2.4) Total Bilirubin 0.3 mg/dL (0.2-1.0) Aspartate Amino Transf (AST/SGOT) 18 U/L (15-37) Alanine Aminotransferase (ALT/SGPT) 20 U/L (14-59) Alkaline Phosphatase 52 U/L (46-116) Total Protein 6.4 g/dL (6.4-8.2) Albumin 2.4 g/dL (3.4-5.0) Albumin/Globulin Ratio 0.6 (1.0-1.7) Microbiology 12/21/18 Blood Culture - Final, Complete NO GROWTH AFTER 5 DAYS Medications Current Medications Sodium Chloride 1,000 ml @ 1,000 mls/hr 1X ONCE IV Last administered on at 13:52; Start 12/14/18 at 13:30; Stop 12/14/18 at 14:29; Status DC Amlodipine Besylate (Norvasc) 10 mg DAILY PO Last administered on 12/26/18at 10: 01; Start 12/14/18 at 17:00 Chlorhexidine Gluconate (Peridex) 15 ml BID MM Last administered on 12/27/18at 08:42; Start 12/14/18 at 21:00 Non-Formulary Medication (Albuterol Sulfate (Ventolin Hfa Inhaler)) 2 puff Q4HRS INH ; Start 12/14/18 at 20:00; Status UNV Ascorbic Acid (Vitamin C) 500 mg DAILY PO Last administered on 12/22/18at 10:30; Start 12/14/18 at 17:00 Duloxetine HCl (Cymbalta) 90 mg DAILY PO Last administered on 12/22/18at 10:30; Start 12/14/18 at 17:00 Ferrous Sulfate (Feosol) 325 mg [id number] PO Last administered on 12/22/18 10: 30; Start 12/14/18 at 17:00 Losartan Potassium (Cozaar) 100 mg DAILY PO Last administered on 12/22/18 10:29 ; Start 12/14/18 at 17:00 Memantine (Namenda) 10 mg BID PO Last administered on 12/26/18 21:25; Start at 21:00 Pantoprazole Sodium (Protonix) 40 mg DAILYAC PO Last administered on 12/22/18 05:28; Start 12/14/18 at 17:00; Stop 12/24/18 at 09:25; Status DC Ropinirole HCl (Requip) 3 mg QHS PO Last administered on 12/26/18 21:25; Start 12/14/18 at 21:00 Spironolactone (Aldactone) 25 mg DAILY PO Last administered on 12/26/18 10:42 ; Start 12/14/18 at 17:00 Albuterol Sulfate (Ventolin Neb Soln) 2.5 mg Q4HRS NEB Last administered on 07:32; Start 12/14/18 at 20:00 Sodium Chloride 1,000 ml @ 80 mls/hr [id number] IV Last administered on 12/23/18 15:25; Start 12/14/18 at 17:15; Stop 12/23/18 at 21:59; Status DC Acetaminophen (Tylenol) 650 mg PRN Q6HRS PRN PO Pain Last administered on 21:27; Start 12/15/18 at 04:45; Stop 12/26/18 at 21:07; Status DC Polyethylene Glycol (miraLAX Powder BULK BOTTLE) 238 gm 1X ONCE PO Last administered on 12/15/18 12:48; Start 12/15/18 at 12:00; Stop 12/15/18 at 12:01 ; Status DC Ondansetron HCl (Zofran) 4 mg PRN Q6HRS PRN IV NAUSEA/VOMITING; Start 12/16/18 at 07:00; Stop 12/17/18 at 06:59; Status DC Fentanyl Citrate (Fentanyl 2ml Vial) 25 mcg PRN Q5MIN PRN IV MILD PAIN; Start 12/16/18 at 07:00; Stop 12/16/18 at 16:33; Status DC Fentanyl Citrate (Fentanyl 2ml Vial) 50 mcg PRN Q5MIN PRN IV MODERATE TO SEVERE PAIN; Start 12/16/18 at 07:00; Stop 12/16/18 at 16:33; Status DC Morphine Sulfate (Morphine Sulfate) 1 mg PRN Q10MIN PRN IV SEVERE PAIN; Start 12/16/18 at 07:00; Stop 12/17/18 at 06:59; Status DC Ringer's Solution 1,000 ml @ 30 mls/hr Q24H IV Last administered on 12/16/18at 13:00; Start 12/16/18 at 07:00; Stop 12/16/18 at 18:59; Status DC Lidocaine HCl (Xylocaine-Mpf 1% 2ml Vial) 2 ml PRN 1X PRN ID IV START; Start at 07:00; Stop 12/17/18 at 06:59; Status DC Hydromorphone HCl (Dilaudid) 0.5 mg PRN Q10MIN PRN IV SEV PAIN, Second choice; Start 12/16/18 at 07:00; Stop 12/17/18 at 06:59; Status DC Prochlorperazine Edisylate (Compazine) 5 mg PACU PRN PRN IV NAUSEA, MRX1; Start 12/16/18 at 07:00; Stop 12/17/18 at 06:59; Status DC Midazolam HCl (Versed) 2 mg PRN 1X PRN IV PRIOR TO PROCEDURE; Start 12/16/18 at 07:15; Stop 12/17/18 at 07:14; Status DC Fentanyl Citrate (Fentanyl 2ml Vial) 25 mcg PRN Q5MIN PRN IV X 2 DOSES FOR PAIN ; Start 12/16/18 at 07:15; Stop 12/16/18 at 16:33; Status DC Fentanyl Citrate (Fentanyl 2ml Vial) 50 mcg PRN Q5MIN PRN IV X 2 DOSES FOR PAIN ; Start 12/16/18 at 07:15; Stop 12/16/18 at 16:34; Status DC Ringer's Solution 1,000 ml @ 125 mls/hr Q8H IV ; Start 12/16/18 at 07:13; Stop 12/16/18 at 19:12; Status DC Lidocaine HCl (Xylocaine-Mpf 1% 2ml Vial) 2 ml 1X PRN PRN ID IV START; Start at 07:15; Stop 12/17/18 at 07:14; Status DC Propofol 40 ml @ As Directed STK-MED ONCE IV ; Start 12/16/18 at 13:58; Stop at 14:00; Status DC Prochlorperazine Edisylate (Compazine) 5 mg PACU PRN PRN IV NAUSEA, MRX1; Start 12/17/18 at 07:00; Stop 12/18/18 at 06:59; Status DC Hydromorphone HCl (Dilaudid) 0.5 mg PRN Q10MIN PRN IV SEV PAIN, Second choice; Start 12/17/18 at 07:00; Stop 12/18/18 at 06:59; Status DC Lidocaine HCl (Xylocaine-Mpf 1% 2ml Vial) 2 ml PRN 1X PRN ID IV START; Start at 07:00; Stop 12/18/18 at 06:59; Status DC Ringer's Solution 1,000 ml @ 30 mls/hr Q24H IV Last administered on 12/17/18at 10:34; Start 12/17/18 at 07:00; Stop 12/17/18 at 18:59; Status DC Morphine Sulfate (Morphine Sulfate) 1 mg PRN Q10MIN PRN IV SEVERE PAIN; Start 12/17/18 at 07:00; Stop 12/18/18 at 06:59; Status DC Fentanyl Citrate (Fentanyl 2ml Vial) 50 mcg PRN Q5MIN PRN IV MODERATE TO SEVERE PAIN Last administered on 12/17/18at 11:13; Start 12/17/18 at 07:00; Stop at 06:59; Status DC Fentanyl Citrate (Fentanyl 2ml Vial) 25 mcg PRN Q5MIN PRN IV MILD PAIN; Start 12/17/18 at 07:00; Stop 12/18/18 at 06:59; Status DC Ondansetron HCl (Zofran) 4 mg PRN Q6HRS PRN IV NAUSEA/VOMITING; Start 12/17/18 at 07:00; Stop 12/18/18 at 06:59; Status DC Propofol 20 ml @ As Directed STK-MED ONCE IV ; Start 12/17/18 at 07:21; Stop 12/17 at 07:23; Status DC Albuterol Sulfate (Ventolin Neb Soln) 2.5 mg 1X ONCE NEB ; Start 12/17/18 at 07: 30; Stop 12/17/18 at 07:31; Status DC Lidocaine HCl (Lidocaine Pf 2% Vial) 5 ml STK-MED ONCE .ROUTE ; Start 12/17/18 at 07:21; Stop 12/17/18 at 07:23; Status DC Succinylcholine Chloride (Anectine) 200 mg STK-MED ONCE .ROUTE ; Start 12/17/18 at 07:21; Stop 12/17/18 at 07:23; Status DC Rocuronium [place] (Zemuron) 50 mg STK-MED ONCE .ROUTE ; Start 12/17/18 at 07:21 ; Stop 12/17/18 at 07:23; Status DC Fentanyl Citrate (Fentanyl 2ml Vial) 100 mcg STK-MED ONCE .ROUTE ; Start at 07:21; Stop 12/17/18 at 07:24; Status DC Cefazolin Sodium/ Dextrose 50 ml @ 100 mls/hr 1X ONCE IV Last administered on 12/17/18at 08:07; Start 12/17/18 at 07:45; Stop 12/17/18 at 08:18; Status DC Bupivacaine HCl/ Epinephrine Bitart (Sensorcain-Mpf Epi 0.5%-[id number]) 30 ml STK -MED ONCE .ROUTE Last administered on 12/17/18at 08:34; Start 12/17/18 at 07:46; Stop 12/17/18 at 07:49; Status DC Neomycin/ Polymyxin/ Bacitracin (Triple Antibiotic Ointment) 1 pkt STK-MED ONCE TP Last administered on 12/17/18at 10:07; Start 12/17/18 at 07:46; Stop 12/17/18 at 07:49; Status DC Neomycin/ Polymyxin/ Bacitracin (Triple Antibiotic Ointment) 1 pkt STK-MED ONCE TP Last administered on 12/17/18at 10:07; Start 12/17/18 at 07:46; Stop 12/17/18 at 07:49; Status DC Neomycin/ Polymyxin/ Bacitracin (Triple Antibiotic Ointment) 1 pkt STK-MED ONCE TP ; Start 12/17/18 at 07:47; Stop 12/17/18 at 07:49; Status DC Dexamethasone Sodium Phosphate (Decadron) 20 mg STK-MED ONCE .ROUTE ; Start 12/17 at 07:54; Stop 12/17/18 at 07:56; Status DC Hydrocortisone Sodium Succinate (Solu-CORTEF) 100 mg STK-MED ONCE .ROUTE ; Start 12/17/18 at 07:54; Stop 12/17/18 at 07:56; Status DC Desflurane (Suprane) 90 ml STK-MED ONCE IH ; Start 12/17/18 at 07:54; Stop at 07:56; Status DC Neostigmine Methylsulfate (Bloxiverz) 10 mg STK-MED ONCE .ROUTE ; Start 12/17/18 at 08:21; Stop 12/17/18 at 08:24; Status DC Glycopyrrolate (Robinul) 1 mg STK-MED ONCE .ROUTE ; Start 12/17/18 at 08:21; Stop 12/17/18 at 08:24; Status DC Phenylephrine HCl (Bogdan-Synephrine Inj) 10 mg STK-MED ONCE .ROUTE ; Start at 08:23; Stop 12/17/18 at 08:26; Status DC Desflurane (Suprane) 60 ml STK-MED ONCE IH ; Start 12/17/18 at 09:23; Stop at 09:26; Status DC Bupivacaine HCl/ Epinephrine Bitart (Sensorcain-Mpf Epi 0.5%-1:[id number]) 30 ml STK -MED ONCE .ROUTE Last administered on 12/17/18at 10:06; Start 12/17/18 at 09:41; Stop 12/17/18 at 09:43; Status DC Morphine Sulfate (Morphine Sulfate) 2 mg PRN Q2HR PRN IV PAIN Last administered on 12/25/18at 09:26; Start 12/17/18 at 10:15; Stop 12/25/18 at 17:54; Status DC Ketorolac Tromethamine (Toradol 15mg Vial) 15 mg Q6HRS IV Last administered on 12/18/18at 05:39; Start 12/17/18 at 12:00; Stop 12/18/18 at 10:00; Status DC Artificial Tears (Artificial Tears) 1 drop PRN Q15MIN PRN OU DRY EYE Last administered on 12/20/18 21:28; Start 12/18/18 at 08:00 Docusate Sodium (Colace) 100 mg DAILY PO Last administered on 12/26/18 10:01; Start 12/18/18 at 10:00 Throat Lozenges (Cepacol Sore Throat Lozenge) 1 kristyn PRN Q2HRS PRN PO SORE THROAT Last administered on 12/26/18 10:01; Start 12/18/18 at 14:00 Enoxaparin Sodium (Lovenox 40mg Syringe) 40 mg Q24H SQ Last administered on 08:35; Start 12/19/18 at 09:00 Ondansetron HCl (Zofran) 4 mg PRN Q6HRS PRN IV NAUSEA/VOMITING Last administered on 12/27/18 07:45; Start 12/19/18 at 11:30 Insulin Human Lispro (HumaLOG) 0-5 UNITS TIDWMEALS SQ ; Start 12/19/18 at 17:00 Dextrose (Dextrose 50%-Water Syringe) 12.5 gm PRN Q15MIN PRN IV SEE COMMENTS; Start 12/19/18 at 16:45 Levofloxacin/ Dextrose 100 ml @ 100 mls/hr 1X ONCE IV Last administered on 20:56; Start 12/19/18 at 21:00; Stop 12/19/18 at 21:59; Status DC Cefepime HCl (Maxipime) 2 gm Q12HR IVP Last administered on 12/27/18 08:35; Start 12/21/18 at 10:00 Sodium Chloride 1,000 ml @ 125 mls/hr 1X ONCE IV Last administered on 10:43; Start 12/21/18 at 09:45; Stop 12/21/18 at 17:44; Status DC Calcium Carbonate/ Glycine (Tums) 500 mg PRN AFTMEALHC PRN PO INDIGESTION Last administered on 12/21/18 13:10; Start 12/21/18 at 12:15 Lorazepam (Ativan) 1 mg 1X ONCE IV Last administered on 12/21/18 17:50; Start 12/21/18 at 17:30; Stop 12/21/18 at 17:31; Status DC Albuterol Sulfate (Ventolin Neb Soln) 2.5 mg PRN Q2HRS PRN NEB SHORTNESS OF BREATH Last administered on 12/26/18 10:26; Start 12/21/18 at 17:30 Nicotine (Nicoderm Cq 14mg) 1 patch PRN DAILY PRN TD SMOKING CESSATION Last administered on 12/26/18 09:59; Start 12/21/18 at 19:30 Lorazepam (Ativan) 1 mg 1X ONCE IV Last administered on 12/21/18 23:45; Start 12/21/18 at 23:45; Stop 12/21/18 at 23:46; Status DC Lorazepam (Ativan) 1 mg PRN Q4HRS PRN IV ANXIETY / AGITATION Last administered on 12/22/18 11:15; Start 12/21/18 at 23:30; Stop 12/22/18 at 14:42; Status DC Sodium Chloride 1,000 ml @ 250 mls/hr 1X ONCE IV Last administered on 09:15; Start 12/22/18 at 09:15; Stop 12/22/18 at 13:14; Status DC Lidocaine/Sodium Bicarbonate (Buffered Lidocaine 1%) 3 ml STK-MED ONCE .ROUTE ; Start 12/23/18 at 10:33; Stop 12/23/18 at 10:35; Status DC Lidocaine/Sodium Bicarbonate (Buffered Lidocaine 1%) 3 ml 1X ONCE INJ Last administered on 12/23/18 11:24; Start 12/23/18 at 11:00; Stop 12/23/18 at 11:10; Status DC Info (Tpn Per Pharmacy) 1 each PRN DAILY PRN MC SEE COMMENTS Last administered on 12/26/18 12:03; Start 12/23/18 at 14:00 Sodium Chloride 90 meq/Potassium Chloride 50 meq/ Potassium Phosphate 20.4 mmol/ Magnesium Sulfate 18 meq/ Calcium Gluconate 5 meq/ Multivitamins 10 ml/Chromium / Copper/Manganese/ Seleni/Zn 1 ml/ Total Parenteral Nutrition/Amino Acids/ Dextrose/ Fat Emulsion Intravenous 1,512 ml @ 63 mls/hr TPN CONT IV Last administered on 2/7/19at 21:37; Start 12/23/18 at 22:00; Stop 12/24/18 at 21:59; Status DC Alprazolam (Xanax) 0.25 mg PRN BID PRN PO ANXIETY / AGITATION Last administered on 12/25/18at 09:25; Start 12/23/18 at 23:00; Stop 12/25/18 at 17:54; Status DC Lorazepam (Ativan) 1 mg PRN Q4HRS PRN IV ANXIETY / AGITATION Last administered on 12/24/18at 09:21; Start 12/24/18 at 08:45; Stop 12/24/18 at 10:19; Status DC Pantoprazole Sodium (PROTONIX VIAL for IV PUSH) 40 mg DAILYAC IVP Last administered on 12/27/18at 07:39; Start 12/24/18 at 09:30 Lorazepam (Ativan) 0.5 mg PRN Q4HRS PRN IV ANXIETY / AGITATION Last administered on 12/25/18at 04:47; Start 12/24/18 at 10:30; Stop 12/25/18 at 10:22; Status DC Sodium Chloride 45 meq/Sodium Acetate 45 meq/ Potassium Chloride 50 meq/ Potassium Phosphate 20.4 mmol/Magnesium Sulfate 18 meq/ Calcium Gluconate 5 meq / Multivitamins 10 ml/Chromium/ Copper/Manganese/ Seleni/Zn 1 ml/ Total Parenteral Nutrition/Amino Acids/Dextrose/ Fat Emuls... 1,512 ml @ 63 mls/hr TPN CONT IV Last administered on 12/24/18at 21:57; Start 12/24/18 at 22:00; Stop 12/25/18 at 21:59; Status DC Phenyleph/Shark Oil/Min Oil/Petrol (Preparation H) 1 ranjith PRN Q4HRS PRN RC RECTAL PAIN; Start 12/24/18 at 12:45; Stop 12/25/18 at 20:20; Status DC Sodium Chloride 45 meq/Sodium Acetate 45 meq/ Potassium Chloride 50 meq/ Potassium Phosphate 20.4 mmol/Magnesium Sulfate 18 meq/ Calcium Gluconate 5 meq / Multivitamins 10 ml/Chromium/ Copper/Manganese/ Seleni/Zn 1 ml/ Total Parenteral Nutrition/Amino Acids/Dextrose/ Fat Emuls... 1,512 ml @ 63 mls/hr TPN CONT IV Last administered on 12/26/18 00:34; Start 12/25/18 at 22:00; Stop 12/26/18 at 21:59; Status DC Neomycin/ Polymyxin/ Bacitracin (Triple Antibiotic Ointment) 1 pkt PRN TID PRN TP skin around rectum, post op Last administered on 12/26/18 09:58; Start at 14:30 Alprazolam (Xanax) 0.25 mg PRN Q8HRS PRN PO ANXIETY / AGITATION Last administered on 12/26/18 09:59; Start 12/25/18 at 18:00 Morphine Sulfate (Morphine Sulfate) 2 mg PRN Q6HRS PRN IV PAIN Last administered on 12/27/18 07:39; Start 12/25/18 at 18:00 Guaifenesin (Mucinex) 600 mg BID PO Last administered on 12/26/18 21:26; Start 12/26/18 at 11:00 Guaifenesin (Mucinex) 600 mg BID PO ; Start 12/26/18 at 11:00; Status UNV Guaifenesin/ Codeine Phosphate (Robitussin Ac) 5 ml PRN Q6HRS PRN PO COUGH Last administered on 12/26/18 10:41; Start 12/26/18 at 10:30 Sodium Acetate 90 meq/Potassium Chloride 50 meq/ Potassium Phosphate 13.6 mmol/ Magnesium Sulfate 18 meq/ Calcium Gluconate 5 meq/ Multivitamins 10 ml/Chromium / Copper/Manganese/ Seleni/Zn 1 ml/ Total Parenteral Nutrition/Amino Acids/ Dextrose/ Fat Emulsion Intravenous 1,512 ml @ 63 mls/hr TPN CONT IV Last administered on 12/26/18at 21:37; Start 12/26/18 at 22:00; Stop 12/27/18 at 21:59 Benzocaine (Hurricaine One) 1 spray 1X ONCE MM ; Start 12/26/18 at 19:15; Stop 12/26/18 at 19:16; Status DC Acetaminophen (Tylenol) 650 mg PRN Q6HRS PRN PO MILD PAIN / TEMP Last administered on 12/27/18 04:39; Start 12/26/18 at 21:00 Benzocaine (Hurricaine One) 1 spray 1X ONCE MM Last administered on 2/11/19at 09:00; Start 12/27/18 at 09:15; Stop 12/27/18 at 09:16; Status DC Active Scripts Active Chlorhexidine Gluconate 473 Ml Mouthwash 473 Ml MM BID 7 Days Vitamin C (Ascorbate Calcium) 500 Mg Tablet 500 Mg PO DAILY 30 Days Slow Release Iron (Ferrous Sulfate) 250 Mg Tablet.er 250 Mg PO DAILY 30 Days Protonix (Pantoprazole Sodium) 40 Mg Granpkt.dr 40 Mg PO DAILY 30 Days Reported Alprazolam 0.25 Mg Tablet 0.25 Mg PO DAILY Metformin Hcl Er (Metformin Hcl) 500 Mg Tab.er.24h 1 Tab PO DAILY Namenda (Memantine Hcl) 10 Mg Tablet 1 Tab PO BID Losartan Potassium 100 Mg Tablet 100 Mg PO DAILY Spironolactone 25 Mg Tablet 1 Tab PO DAILY Ventolin Hfa Inhaler (Albuterol Sulfate) 18 Gm Hfa.aer.ad 2 Puff INH Q4HRS Cymbalta (Duloxetine Hcl) 20 Mg Capsule.dr 90 Mg PO DAILY Requip (Ropinirole Hcl) 1 Mg Tablet 3 Mg PO DAILY Amlodipine Besylate 10 Mg Tablet 10 Mg PO DAILY Vitals/I & O Vital Sign - Last 24 Hours 12/26/18 12/26/18 12/26/18 12/26/18 10:01 10:26 11:00 13:25 Temp 98.1 98.1 Pulse 85 95 Resp 18 B/P (MAP) 138/92 144/72 (96) Pulse Ox 100 99 O2 Delivery Nasal Cannula Room Air Nasal Cannula O2 Flow Rate 3.0 3.0 12/26/18 12/26/18 12/26/18 12/26/18 15:00 17:02 18:51 19:00 Temp 98.1 98.6 98.1 98.6 Pulse 92 87 Resp 16 16 B/P (MAP) 109/68 (82) 132/87 (102) Pulse Ox 97 96 96 98 O2 Delivery Nasal Cannula Nasal Cannula Nasal Cannula Nasal Cannula O2 Flow Rate 3.0 3.0 3.0 3.0 12/26/18 12/26/18 12/26/18 12/26/18 19:41 20:09 23:00 23:09 Temp 98.1 98.1 Pulse 71 Resp 18 B/P (MAP) 108/73 (85) Pulse Ox 96 93 O2 Delivery Nasal Cannula Nasal Cannula Nasal Cannula Nasal Cannula O2 Flow Rate 3.0 3.0 3.0 3.0 12/27/18 12/27/18 12/27/18 12/27/18 01:34 02:08 03:00 03:22 Temp 98.9 98.9 Pulse 82 Resp 22 20 16 B/P (MAP) 114/72 (86) Pulse Ox 93 93 99 O2 Delivery Nasal Cannula Nasal Cannula Nasal Cannula O2 Flow Rate 3.0 3.0 3.0 12/27/18 12/27/18 12/27/18 12/27/18 07:00 07:20 07:32 07:39 Temp 97.6 97.6 Pulse 80 Resp 20 20 B/P (MAP) 116/76 (89) Pulse Ox 98 98 98 O2 Delivery Nasal Cannula Nasal Cannula Nasal Cannula Nasal Cannula O2 Flow Rate 3.0 3.0 3.0 3.0 12/27/18 08:24 O2 Delivery Nasal Cannula O2 Flow Rate 2.0 Intake and Output 12/26/18 12/26/18 12/27/18 15:01 23:01 07:01 Intake Total 870 ml Output Total 450 ml Balance -450 ml 870 ml DAYLIN MILLER MD Dec 27, 2018 09:53
--- NOTE | 2018-12-27 10:08 | PDOC ---
Objective: Objective: Having NG tube placement when I came by, x-ray present. Vital Signs: Vital Signs Date Time Temp Pulse Resp B/P (MAP) Pulse Ox O2 Delivery O2 Flow Rate FiO2 12/27/18 08:24 Nasal Cannula 2.0 12/27/18 07:39 20 98 12/27/18 07:00 97.6 80 116/76 (89) 97.6 Labs: Laboratory Tests Test 12/26/18 12:41 12/26/18 19:13 12/27/18 05:30 12/27/18 07:05 Glucose (Fingerstick) 175 mg/dL 180 mg/dL 183 mg/dL Sodium Level 141 mmol/L Potassium Level 4.4 mmol/L Chloride Level 105 mmol/L Carbon Dioxide Level 26 mmol/L Anion Gap 10 Blood Urea Nitrogen 31 mg/dL Creatinine 0.8 mg/dL Estimated GFR (Cockcroft-Gault) 84.6 BUN/Creatinine Ratio 39 Glucose Level 173 mg/dL Calcium Level 9.0 mg/dL Phosphorus Level 3.9 mg/dL Magnesium Level 2.2 mg/dL Total Bilirubin 0.3 mg/dL Aspartate Amino Transf (AST/SGOT) 18 U/L Alanine Aminotransferase (ALT/SGPT) 20 U/L Alkaline Phosphatase 52 U/L Total Protein 6.4 g/dL Albumin 2.4 g/dL Albumin/Globulin Ratio 0.6 Imaging: KUB 12/27 Impression: Enteric tube is in place. Distention of small bowel likely representing obstruction. CXR 12/26 1. Mild patchy opacity in the left lung base may be secondary to subsegmental atelectasis, aspiration or pneumonia. PE: GEN: NAD - staff/x-ray present as above NEURO/PSYCH: A & O 3 A/P: S/p right colon resection and hemorrhoidectomy - postop ileus/SBO, has NG tube and TPN Anemia - stable, on IV PPI COPD, abnormal chest imaging -- Continue per surgery. RADHA JUSTICE Dec 27, 2018 10:08
--- NOTE | 2018-12-27 10:08 | PDOC ---
SURGICAL PROGRESS NOTE Subjective No stool, passing flatus. Minimal abd pain no rectal pain Vital Signs Vital Signs Date Time Temp Pulse Resp B/P (MAP) Pulse Ox O2 Delivery O2 Flow Rate FiO2 12/27/18 08:24 Nasal Cannula 2.0 12/27/18 07:39 20 98 12/27/18 07:00 97.6 80 116/76 (89) 97.6 I&O Intake and Output 12/27/18 07:01 Intake Total 870 ml Output Total 450 ml Balance 420 ml Intake Oral 120 ml IV Total 750 ml Output Urine Total 450 ml PATIENT HAS A PILLAI: No General: Alert, Cooperative, mild distress Abdomen: Normal bowel sounds, Soft, Other (Mildly distended, Mild ttp NGT in place with bilious output) Labs Laboratory Tests Test 12/25/18 10:30 12/25/18 11:15 12/25/18 11:36 12/25/18 16:00 O2 Saturation 93 % (92-99) Arterial Blood pH 7.46 (7.35-7.45) Arterial Blood pCO2 at Patient Temp 35 mmHg (35-46) Arterial Blood pO2 at Patient Temp 66 mmHg (65-108) Arterial Blood HCO3 24 mmol/L (21-28) Arterial Blood Base Excess 0 mmol/L (-3-3) FiO2 2 lpm nc Lactic Acid Level 0.9 mmol/L (0.4-2.0) Glucose (Fingerstick) 152 mg/dL (70-99) Ammonia < 10 mcmol/L (11-34) Test 12/25/18 16:12 12/26/18 00:29 12/26/18 05:30 12/26/18 12:41 Glucose (Fingerstick) 159 mg/dL (70-99) 171 mg/dL (70-99) 175 mg/dL (70-99) White Blood Count 10.1 x10^3/uL (4.0-11.0) Red Blood Count 3.39 x10^6/uL (3.50-5.40) Hemoglobin 8.0 g/dL (12.0-15.5) Hematocrit 26.6 % (36.0-47.0) Mean Corpuscular Volume 79 fL (79-100) Mean Corpuscular Hemoglobin 24 pg (25-35) Mean Corpuscular Hemoglobin Concent 30 g/dL (31-37) Red Cell Distribution Width 23.1 % (11.5-14.5) Platelet Count 250 x10^3/uL (140-400) Neutrophils (%) (Auto) 75 % (31-73) Lymphocytes (%) (Auto) 14 % (24-48) Monocytes (%) (Auto) 10 % (0-9) Eosinophils (%) (Auto) 1 % (0-3) Basophils (%) (Auto) 1 % (0-3) Neutrophils # (Auto) 7.5 x10^3uL (1.8-7.7) Lymphocytes # (Auto) 1.4 x10^3/uL (1.0-4.8) Monocytes # (Auto) 1.0 x10^3/uL (0.0-1.1) Eosinophils # (Auto) 0.1 x10^3/uL (0.0-0.7) Basophils # (Auto) 0.1 x10^3/uL (0.0-0.2) Sodium Level 142 mmol/L (136-145) Potassium Level 4.4 mmol/L (3.5-5.1) Chloride Level 109 mmol/L (98-107) Carbon Dioxide Level 25 mmol/L (21-32) Anion Gap 8 (6-14) Blood Urea Nitrogen 27 mg/dL (7-20) Creatinine 0.7 mg/dL (0.6-1.0) Estimated GFR (Cockcroft-Gault) 98.7 Glucose Level 151 mg/dL (70-99) Calcium Level 9.4 mg/dL (8.5-10.1) Phosphorus Level 4.1 mg/dL (2.6-4.7) Magnesium Level 2.1 mg/dL (1.8-2.4) Test 12/26/18 19:13 12/27/18 05:30 12/27/18 07:05 Glucose (Fingerstick) 180 mg/dL (70-99) 183 mg/dL (70-99) Sodium Level 141 mmol/L (136-145) Potassium Level 4.4 mmol/L (3.5-5.1) Chloride Level 105 mmol/L (98-107) Carbon Dioxide Level 26 mmol/L (21-32) Anion Gap 10 (6-14) Blood Urea Nitrogen 31 mg/dL (7-20) Creatinine 0.8 mg/dL (0.6-1.0) Estimated GFR (Cockcroft-Gault) 84.6 BUN/Creatinine Ratio 39 (6-20) Glucose Level 173 mg/dL (70-99) Calcium Level 9.0 mg/dL (8.5-10.1) Phosphorus Level 3.9 mg/dL (2.6-4.7) Magnesium Level 2.2 mg/dL (1.8-2.4) Total Bilirubin 0.3 mg/dL (0.2-1.0) Aspartate Amino Transf (AST/SGOT) 18 U/L (15-37) Alanine Aminotransferase (ALT/SGPT) 20 U/L (14-59) Alkaline Phosphatase 52 U/L (46-116) Total Protein 6.4 g/dL (6.4-8.2) Albumin 2.4 g/dL (3.4-5.0) Albumin/Globulin Ratio 0.6 (1.0-1.7) Laboratory Tests Test 12/26/18 12:41 12/26/18 19:13 12/27/18 05:30 12/27/18 07:05 Glucose (Fingerstick) 175 mg/dL (70-99) 180 mg/dL (70-99) 183 mg/dL (70-99) Sodium Level 141 mmol/L (136-145) Potassium Level 4.4 mmol/L (3.5-5.1) Chloride Level 105 mmol/L (98-107) Carbon Dioxide Level 26 mmol/L (21-32) Anion Gap 10 (6-14) Blood Urea Nitrogen 31 mg/dL (7-20) Creatinine 0.8 mg/dL (0.6-1.0) Estimated GFR (Cockcroft-Gault) 84.6 BUN/Creatinine Ratio 39 (6-20) Glucose Level 173 mg/dL (70-99) Calcium Level 9.0 mg/dL (8.5-10.1) Phosphorus Level 3.9 mg/dL (2.6-4.7) Magnesium Level 2.2 mg/dL (1.8-2.4) Total Bilirubin 0.3 mg/dL (0.2-1.0) Aspartate Amino Transf (AST/SGOT) 18 U/L (15-37) Alanine Aminotransferase (ALT/SGPT) 20 U/L (14-59) Alkaline Phosphatase 52 U/L (46-116) Total Protein 6.4 g/dL (6.4-8.2) Albumin 2.4 g/dL (3.4-5.0) Albumin/Globulin Ratio 0.6 (1.0-1.7) Assessment/Plan s/p right colectomy with ileus. If not improved in the next day consider SBFT Continue supportive care. DAYLIN WEI MD Dec 27, 2018 10:08
[2018-12-27 11:00] VITALS: BP 120/77
--- NOTE | 2018-12-27 11:19 | PDOC ---
Infectious Disease Note Subjective: Subjective Pt is sleeping Daughter at bedside now has NGT for abdominal distention Has more than 800ml output per RN since this am was agitated last night passing flatus Denies F/C less swelling of ble on TPN ROS: ROS Negative except for above. Vital Signs: Vital Signs Vital Signs Date Time Temp Pulse Resp B/P (MAP) Pulse Ox O2 Delivery O2 Flow Rate FiO2 12/27/18 08:24 Nasal Cannula 2.0 12/27/18 07:39 20 98 12/27/18 07:00 97.6 80 116/76 (89) 97.6 Physical Exam: PHYSICAL EXAM GENERAL: Lying down, sleeping HEENT:no icterus, ngt + NECK: Supple LUNGS: Clear anteriorly HEART: S1, S2 ABDOMEN: Distended, soft, hypoactive BS. dressings dry EXTREMITIES: No edema or cyanosis. SKIN: No rash. Rectal wound clean NEUROLOGIC: sleepy but arousable RUE-PICC (12/23) clean Medications: Inpatient Meds: Current Medications Medications (Trade) Dose Ordered Sig/Buffy Start Time Stop Time Status Last Admin Dose Admin Acetaminophen (Tylenol) 650 mg PRN Q6HRS PRN 12/26/18 21:00 12/27/18 04:39 650 MG Albuterol Sulfate (Ventolin Neb Soln) 2.5 mg PRN Q2HRS PRN 12/21/18 17:30 12/26/18 10:26 2.5 MG Alprazolam (Xanax) 0.25 mg PRN Q8HRS PRN 12/25/18 18:00 12/26/18 09:59 0.25 MG Amlodipine Besylate (Norvasc) 10 mg DAILY 12/14/18 17:00 12/26/18 10:01 10 MG Artificial Tears (Artificial Tears) 1 drop PRN Q15MIN PRN 12/18/18 08:00 12/20/18 21:28 1 DROP Ascorbic Acid (Vitamin C) 500 mg DAILY 12/14/18 17:00 12/22/18 10:30 500 MG Benzocaine (Hurricaine One) 1 spray 1X ONCE 12/27/18 09:15 12/27/18 09:16 DC 12/27/18 09:00 1 SPRAY Bupivacaine HCl/ Epinephrine Bitart (Sensorcain-Mpf Epi 0.5%-1:552205) 30 ml STK-MED ONCE 12/17/18 09:41 12/17/18 09:43 DC 12/17/18 10:06 19 ML Calcium Carbonate/ Glycine (Tums) 500 mg PRN AFTMEALHC PRN 12/21/18 12:15 12/21/18 13:10 500 MG Cefazolin Sodium/ Dextrose 50 ml @ 100 mls/hr 1X ONCE 12/17/18 07:45 12/17/18 08:18 DC 12/17/18 08:07 100 MLS/HR Cefepime HCl (Maxipime) 2 gm Q12HR 12/21/18 10:00 12/27/18 08:35 2 GM Chlorhexidine Gluconate (Peridex) 15 ml BID 12/14/18 21:00 12/27/18 08:42 15 ML Desflurane (Suprane) 60 ml STK-MED ONCE 12/17/18 09:23 12/17/18 09:26 DC Dexamethasone Sodium Phosphate (Decadron) 20 mg STK-MED ONCE 12/17/18 07:54 12/17/18 07:56 DC Dextrose (Dextrose 50%-Water Syringe) 12.5 gm PRN Q15MIN PRN 12/19/18 16:45 Docusate Sodium (Colace) 100 mg DAILY 12/18/18 10:00 12/26/18 10:01 100 MG Duloxetine HCl (Cymbalta) 90 mg DAILY 12/14/18 17:00 12/22/18 10:30 90 MG Enoxaparin Sodium (Lovenox 40mg Syringe) 40 mg Q24H 12/19/18 09:00 12/27/18 08:35 40 MG Fentanyl Citrate (Fentanyl 2ml Vial) 100 mcg STK-MED ONCE 12/17/18 07:21 12/17/18 07:24 DC Ferrous Sulfate (Feosol) 325 mg DAILYWBKFT 12/14/18 17:00 12/22/18 10:30 325 MG Glycopyrrolate (Robinul) 1 mg STK-MED ONCE 12/17/18 08:21 12/17/18 08:24 DC Guaifenesin (Mucinex) 600 mg BID 12/26/18 11:00 UNV Guaifenesin/ Codeine Phosphate (Robitussin Ac) 5 ml PRN Q6HRS PRN 12/26/18 10:30 12/26/18 10:41 5 ML Hydrocortisone Sodium Succinate (Solu-CORTEF) 100 mg STK-MED ONCE 12/17/18 07:54 12/17/18 07:56 DC Hydromorphone HCl (Dilaudid) 0.5 mg PRN Q10MIN PRN 12/17/18 07:00 12/18/18 06:59 DC Info (Tpn Per Pharmacy) 1 each PRN DAILY PRN 12/23/18 14:00 12/26/18 12:03 1 EACH Insulin Human Lispro (HumaLOG) 0-5 UNITS TIDWMEALS 12/19/18 17:00 Ketorolac Tromethamine (Toradol 15mg Vial) 15 mg Q6HRS 12/17/18 12:00 12/18/18 10:00 DC 12/18/18 05:39 15 MG Levofloxacin/ Dextrose 100 ml @ 100 mls/hr 1X ONCE 12/19/18 21:00 12/19/18 21:59 DC 12/19/18 20:56 100 MLS/HR Lidocaine HCl (Lidocaine Pf 2% Vial) 5 ml STK-MED ONCE 12/17/18 07:21 12/17/18 07:23 DC Lidocaine HCl (Xylocaine-Mpf 1% 2ml Vial) 2 ml PRN 1X PRN 12/17/18 07:00 12/18/18 06:59 DC Lidocaine/Sodium Bicarbonate (Buffered Lidocaine 1%) 3 ml 1X ONCE 12/23/18 11:00 12/23/18 11:10 DC 12/23/18 11:24 3 ML Lorazepam (Ativan) 0.5 mg PRN Q4HRS PRN 12/24/18 10:30 12/25/18 10:22 DC 12/25/18 04:47 0.5 MG Losartan Potassium (Cozaar) 100 mg DAILY 12/14/18 17:00 12/22/18 10:29 100 MG Memantine (Namenda) 10 mg BID 12/14/18 21:00 12/26/18 21:25 10 MG Midazolam HCl (Versed) 2 mg PRN 1X PRN 12/16/18 07:15 12/17/18 07:14 DC Morphine Sulfate (Morphine Sulfate) 2 mg PRN Q6HRS PRN 12/25/18 18:00 12/27/18 07:39 2 MG Neomycin/ Polymyxin/ Bacitracin (Triple Antibiotic Ointment) 1 pkt PRN TID PRN 12/25/18 14:30 12/26/18 09:58 1 PKT Neostigmine Methylsulfate (Bloxiverz) 10 mg STK-MED ONCE 12/17/18 08:21 12/17/18 08:24 DC Nicotine (Nicoderm Cq 14mg) 1 patch PRN DAILY PRN 12/21/18 19:30 12/26/18 09:59 1 PATCH Non-Formulary Medication (Albuterol Sulfate (Ventolin Hfa Inhaler)) 2 puff Q4HRS 12/14/18 20:00 UNV Ondansetron HCl (Zofran) 4 mg PRN Q6HRS PRN 12/19/18 11:30 12/27/18 07:45 4 MG Pantoprazole Sodium (PROTONIX VIAL for IV PUSH) 40 mg DAILYAC 12/24/18 09:30 12/27/18 07:39 40 MG Pantoprazole Sodium (Protonix) 40 mg DAILYAC 12/14/18 17:00 12/24/18 09:25 DC 12/22/18 05:28 40 MG Phenyleph/Shark Oil/Min Oil/Petrol (Preparation H) 1 ranjith PRN Q4HRS PRN 12/24/18 12:45 12/25/18 20:20 DC Phenylephrine HCl (Bogdan-Synephrine Inj) 10 mg STK-MED ONCE 12/17/18 08:23 12/17/18 08:26 DC Polyethylene Glycol (miraLAX Powder BULK BOTTLE) 238 gm 1X ONCE 12/15/18 12:00 12/15/18 12:01 DC 12/15/18 12:48 238 GM Prochlorperazine Edisylate (Compazine) 5 mg PACU PRN PRN 12/17/18 07:00 12/18/18 06:59 DC Propofol 20 ml @ As Directed STK-MED ONCE 12/17/18 07:21 12/17/18 07:23 DC Ringer's Solution 1,000 ml @ 30 mls/hr Q24H 12/17/18 07:00 12/17/18 18:59 DC 12/17/18 10:34 30 MLS/HR Rocuronium Beason (Zemuron) 50 mg STK-MED ONCE 12/17/18 07:21 12/17/18 07:23 DC Ropinirole HCl (Requip) 3 mg QHS 12/14/18 21:00 12/26/18 21:25 3 MG Sodium Acetate 90 meq/Potassium Chloride 50 meq/ Potassium Phosphate 13.6 mmol/Magnesium Sulfate 18 meq/ Calcium Gluconate 5 meq/ Multivitamins 10 ml/Chromium/ Copper/Manganese/ Seleni/Zn 1 ml/ Total Parenteral Nutrition/Amino Acids/Dextrose/ Fat Emulsion Intravenous 1,512 ml @ 63 mls/hr TPN CONT 12/26/18 22:00 12/27/18 21:59 12/26/18 21:37 63 MLS/HR Sodium Chloride 45 meq/Sodium Acetate 45 meq/ Potassium Chloride 50 meq/ Potassium Phosphate 20.4 mmol/Magnesium Sulfate 18 meq/ Calcium Gluconate 5 meq/ Multivitamins 10 ml/Chromium/ Copper/Manganese/ Seleni/Zn 1 ml/ Total Parenteral Nutrition/Amino Acids/Dextrose/ Fat Emuls... 1,512 ml @ 63 mls/hr TPN CONT 12/25/18 22:00 12/26/18 21:59 DC 12/26/18 00:34 63 MLS/HR Sodium Chloride 90 meq/Potassium Chloride 50 meq/ Potassium Phosphate 20.4 mmol/Magnesium Sulfate 18 meq/ Calcium Gluconate 5 meq/ Multivitamins 10 ml/Chromium/ Copper/Manganese/ Seleni/Zn 1 ml/ Total Parenteral Nutrition/Amino Acids/Dextrose/ Fat Emulsion Intravenous 1,512 ml @ 63 mls/hr TPN CONT 12/23/18 22:00 12/24/18 21:59 DC 12/23/18 21:37 63 MLS/HR Spironolactone (Aldactone) 25 mg DAILY 12/14/18 17:00 12/26/18 10:42 25 MG Succinylcholine Chloride (Anectine) 200 mg STK-MED ONCE 12/17/18 07:21 12/17/18 07:23 DC Throat Lozenges (Cepacol Sore Throat Lozenge) 1 stella PRN Q2HRS PRN 12/18/18 14:00 12/26/18 10:01 1 STELLA Labs: Lab Laboratory Tests Test 12/26/18 12:41 12/26/18 19:13 12/27/18 05:30 12/27/18 07:05 Glucose (Fingerstick) 175 mg/dL (70-99) 180 mg/dL (70-99) 183 mg/dL (70-99) Sodium Level 141 mmol/L (136-145) Potassium Level 4.4 mmol/L (3.5-5.1) Chloride Level 105 mmol/L (98-107) Carbon Dioxide Level 26 mmol/L (21-32) Anion Gap 10 (6-14) Blood Urea Nitrogen 31 mg/dL (7-20) Creatinine 0.8 mg/dL (0.6-1.0) Estimated GFR (Cockcroft-Gault) 84.6 BUN/Creatinine Ratio 39 (6-20) Glucose Level 173 mg/dL (70-99) Calcium Level 9.0 mg/dL (8.5-10.1) Phosphorus Level 3.9 mg/dL (2.6-4.7) Magnesium Level 2.2 mg/dL (1.8-2.4) Total Bilirubin 0.3 mg/dL (0.2-1.0) Aspartate Amino Transf (AST/SGOT) 18 U/L (15-37) Alanine Aminotransferase (ALT/SGPT) 20 U/L (14-59) Alkaline Phosphatase 52 U/L (46-116) Total Protein 6.4 g/dL (6.4-8.2) Albumin 2.4 g/dL (3.4-5.0) Albumin/Globulin Ratio 0.6 (1.0-1.7) Micro Micro Microbiology 12/21/18 Blood Culture - Preliminary, Resulted NO GROWTH AFTER 4 DAYS Objective: Assessment: ? Sepsis,, normal lactic acid, BC neg Leukocytosis post surgery and then leukopenia, no fever; improved S/P laparoscopic-assisted right colon resection and hemorrhoidectomy on 2018 for bleeding cecal ulcer and hemorrhoids; path negative for malignancy . Distention of small bowel likely representing obstruction. COPD Pneumonia Ileus Anemia Plan: Plan of Care Cefepime f/u c/s and labs in am maintain aspiration D/w RN D/w daughter MICHAEL SALINAS MD Dec 27, 2018 11:19
--- NOTE | 2018-12-27 12:20 | NUR ---
SW following. Discussed with RN, pt was not doing to well this morning. Pt has the NG tube back in. SW sent updates to [facility]. [facility] is submitting for insurance auth. Per RN, pt may be ready for discharge in the next day or two. LATANYA will continue to follow.
[2018-12-27] MEDS: TPN PER PHARMACY MC PRN ×2 (13:46→14:15)
--- NOTE | 2018-12-27 13:47 | NUR ---
Pharmacy TPN Dosing Note S: ELLE LATHAM is a 72 year old F Currently receiving Central Continuous TPN started 12/23/18 B:Pertinent PMH: SBO Height: 5 feet, 7 inches Weight: 85.796452 kg Current diet: npo LABS: Sodium: 141 Potassium: 4.4 Chloride: 105 Calcium: 9.0 Corrected Calcium: 10.28 Magnesium: 2.2 CO2: 26 SCr: 0.8 Glucose: 173 Albumin: 2.4 AST: 12 ALT: 12 TPN FORMULA: TPN TYPE: Central Continuous AMINO ACIDS: 60 gm DEXTROSE: 195 gm LIPIDS: 20 gm SODIUM CHLORIDE: - mEq SODIUM ACETATE: 90 mEq SODIUM PHOSPHATE: - mmol POTASSIUM CHLORIDE: 50 mEq POTASSIUM ACETATE: - mEq POTASSIUM PHOSPHATE: 13.6 mmol MAGNESIUM: 15 mEq CALCIUM: 5 mEq INSULIN: - units MULTIPLE VITAMIN: 10 ml TRACE ELEMENTS: mte5 1 ml ml(s) TPN PLAN: adjust magso4 to 15 meq R: Continue TPN AT 63ML/HR Will monitor electrolytes, glucose, and tolerance to TPN. JAMILA WILKINS [facility], 12/27/18 1103
[2018-12-27 15:00] VITALS: BP 112/71
--- NOTE | 2018-12-27 17:30 | NUR ---
Pt's NG fell out, Dr. Montoya paged.
--- NOTE | 2018-12-27 18:00 | NUR ---
Dr. Ponce returned call, orders received.
[2018-12-27 19:00] VITALS: BP 97/63
[2018-12-27] MEDS: rOPINIRole 1 MG TABLET. PO SCH (21:00)
[2018-12-27] MEDS: ALPRAZolam 0.25 MG TABLET PO PRN (21:14)
[2018-12-27] MEDS ORDERED: [UNRECOGNIZED DRUG - OTHER] IV SCH ×10 (22:00)
[2018-12-27] MEDS ORDERED: AMINO ACID IV SCH ×20 (22:00)
[2018-12-27] MEDS ORDERED: DEXTROSE 70% IV SCH ×20 (22:00)
[2018-12-27] MEDS ORDERED: TOTAL PARENTERAL NUTRITION IV SCH ×20 (22:00)
[2018-12-27] MEDS ORDERED: [UNRECOGNIZED DRUG - OTHER] IV SCH ×10 (22:00)
[2018-12-28 03:00] VITALS: BP 111/73
[2018-12-28] MEDS: ALBUTEROL SULFATE 2.5 MG/3 ML NEBU. NEB SCH ×6 (03:05→23:35)
--- NOTE | 2018-12-28 03:30 | NUR ---
[facility] was down for 5 hours. See chart for documentation of medications given and shift assessment.
[2018-12-28] MEDS: ALPRAZolam 0.25 MG TABLET PO PRN (04:39)
[2018-12-28] MEDS: ONDANSETRON PF 4 MG/2 ML VIAL. IV PRN ×2 (04:39→19:53)
[2018-12-28 06:20] LABS: BASO % 0 % (0-3); EOS # 0.1 x10^3/uL (0.0-0.7); EOS % 0 % (0-3); HEMOGLOBIN 8.1 g/dL (12.0-15.5); LYMPH # 0.9 x10^3/uL (1.0-4.8); LYMPH % 6 % (24-48); MEAN CORPUSCULAR HEMOGLOBIN 24 pg (25-35); MEAN CORPUSCULAR HGB CONC 31 g/dL (31-37); MEAN CORPUSCULAR VOLUME 77 fL (79-100); MONO # 1.1 x10^3/uL (0.0-1.1); MONO % 8 % (0-9); NEUT # 12.2 x10^3uL (1.8-7.7); NEUT % 86 % (31-73); PLATELET COUNT 301 x10^3/uL (140-400); RED BLOOD COUNT 3.38 x10^6/uL (3.50-5.40); RED CELL DISTRIBUTION WIDTH 23.4 % (11.5-14.5); WHITE BLOOD COUNT 14.2 x10^3/uL (4.0-11.0)
[2018-12-28 06:32] LABS: CALCIUM 9.1 mg/dL (8.5-10.1); CREATININE 0.7 mg/dL (0.6-1.0); GFR 98.7; POTASSIUM 4.6 mmol/L (3.5-5.1)
[2018-12-28 07:00] VITALS: BP 112/74
[2018-12-28] MEDS: INSULIN LISPRO 300 UNITS/3 ML INSULN.PEN. SQ SCH ×3 (07:49→17:00)
[2018-12-28] MEDS: FERROUS SULFATE 325 MG TABLET. PO SCH (08:00)
[2018-12-28] MEDS: PANTOPRAZOLE IV PUSH 40 MG VIAL. IVP SCH (08:11)
[2018-12-28] MEDS: CEFEPIME HCL IV Push 2 GM VIAL. IVP SCH ×2 (08:11→21:06)
[2018-12-28] MEDS: CHLORHEXIDINE 0.12% 15 ML MOUTHWASH. MM SCH ×2 (08:11→21:05)
[2018-12-28] MEDS: MORPHINE SULFATE 4 MG/ML VIAL. IV PRN ×3 (08:12→22:17)
[2018-12-28] MEDS: ENOXAPARIN 40 MG/0.4 ML SYRINGE. SQ SCH (08:12)
[2018-12-28] MEDS: LOSARTAN POTASSIUM 50 MG TABLET. PO SCH (08:13)
[2018-12-28] MEDS: SPIRONOLACTONE 25 MG TABLET PO SCH (08:13)
[2018-12-28] MEDS: DULoxetine HCL 30 MG CAPSULE.DR PO SCH (08:13)
[2018-12-28] MEDS: MEMANTINE 10 MG TABLET. PO SCH ×2 (08:13→21:00)
[2018-12-28] MEDS: DOCUSATE SODIUM 100 MG CAPSULE. PO SCH (08:13)
[2018-12-28] MEDS: ASCORBIC ACID 500 MG TABLET PO SCH (08:14)
[2018-12-28] MEDS: amLODIPine BESYLATE 10 MG TABLET PO SCH (08:14)
--- NOTE | 2018-12-28 08:19 | PDOC ---
Infectious Disease Note Subjective: Subjective Pt says feels ok wants ngt out no abdo pain some nausea ,no vomiting ROS: ROS Negative except for above. D/W RN Vital Signs: Vital Signs Vital Signs Date Time Temp Pulse Resp B/P (MAP) Pulse Ox O2 Delivery O2 Flow Rate FiO2 12/28/18 07:15 Nasal Cannula 3.0 12/28/18 07:10 98 12/28/18 07:00 98.0 90 18 112/74 (87) 98.0 Physical Exam: PHYSICAL EXAM GENERAL: awake alert HEENT:no icterus, ngt + NECK: Supple LUNGS: Clear anteriorly HEART: S1, S2 ABDOMEN: Distended, soft, hypoactive BS. dressings dry EXTREMITIES: No edema or cyanosis. SKIN: No rash. Rectal wound clean NEUROLOGIC: alert awake Philippe in place RUE-PICC (12/23) clean Medications: Inpatient Meds: Current Medications Medications (Trade) Dose Ordered Sig/Buffy Start Time Stop Time Status Last Admin Dose Admin Acetaminophen (Tylenol) 650 mg PRN Q6HRS PRN 12/26/18 21:00 12/27/18 04:39 650 MG Albuterol Sulfate (Ventolin Neb Soln) 2.5 mg PRN Q2HRS PRN 12/21/18 17:30 12/26/18 10:26 2.5 MG Alprazolam (Xanax) 0.25 mg PRN Q8HRS PRN 12/25/18 18:00 12/28/18 04:39 0.25 MG Amlodipine Besylate (Norvasc) 10 mg DAILY 12/14/18 17:00 12/26/18 10:01 10 MG Artificial Tears (Artificial Tears) 1 drop PRN Q15MIN PRN 12/18/18 08:00 12/20/18 21:28 1 DROP Ascorbic Acid (Vitamin C) 500 mg DAILY 12/14/18 17:00 12/22/18 10:30 500 MG Benzocaine (Hurricaine One) 1 spray 1X ONCE 12/27/18 09:15 12/27/18 09:16 DC 12/27/18 09:00 1 SPRAY Bupivacaine HCl/ Epinephrine Bitart (Sensorcain-Mpf Epi 0.5%-1:[id number]) 30 ml STK-MED ONCE 12/17/18 09:41 12/17/18 09:43 DC 12/17/18 10:06 19 ML Calcium Carbonate/ Glycine (Tums) 500 mg PRN AFTMEALHC PRN 12/21/18 12:15 12/21/18 13:10 500 MG Cefazolin Sodium/ Dextrose 50 ml @ 100 mls/hr 1X ONCE 12/17/18 07:45 12/17/18 08:18 DC 12/17/18 08:07 100 MLS/HR Cefepime HCl (Maxipime) 2 gm Q12HR 12/21/18 10:00 12/27/18 21:15 2 GM Chlorhexidine Gluconate (Peridex) 15 ml BID 12/14/18 21:00 12/27/18 21:15 15 ML Desflurane (Suprane) 60 ml STK-MED ONCE 12/17/18 09:23 12/17/18 09:26 DC Dexamethasone Sodium Phosphate (Decadron) 20 mg STK-MED ONCE 12/17/18 07:54 12/17/18 07:56 DC Dextrose (Dextrose 50%-Water Syringe) 12.5 gm PRN Q15MIN PRN 12/19/18 16:45 Docusate Sodium (Colace) 100 mg DAILY 12/18/18 10:00 12/26/18 10:01 100 MG Duloxetine HCl (Cymbalta) 90 mg DAILY 12/14/18 17:00 12/22/18 10:30 90 MG Enoxaparin Sodium (Lovenox 40mg Syringe) 40 mg Q24H 12/19/18 09:00 12/27/18 08:35 40 MG Fentanyl Citrate (Fentanyl 2ml Vial) 100 mcg STK-MED ONCE 12/17/18 07:21 12/17/18 07:24 DC Ferrous Sulfate (Feosol) 325 mg DAILYWBKFT 12/14/18 17:00 12/22/18 10:30 325 MG Glycopyrrolate (Robinul) 1 mg STK-MED ONCE 12/17/18 08:21 12/17/18 08:24 DC Guaifenesin (Mucinex) 600 mg BID 12/26/18 11:00 UNV Guaifenesin/ Codeine Phosphate (Robitussin Ac) 5 ml PRN Q6HRS PRN 12/26/18 10:30 12/26/18 10:41 5 ML Hydrocortisone Sodium Succinate (Solu-CORTEF) 100 mg STK-MED ONCE 12/17/18 07:54 12/17/18 07:56 DC Hydromorphone HCl (Dilaudid) 0.5 mg PRN Q10MIN PRN 12/17/18 07:00 12/18/18 06:59 DC Info (Tpn Per Pharmacy) 1 each PRN DAILY PRN 12/23/18 14:00 12/27/18 14:15 1 EACH Insulin Human Lispro (HumaLOG) 0-5 UNITS TIDWMEALS 12/19/18 17:00 Ketorolac Tromethamine (Toradol 15mg Vial) 15 mg Q6HRS 12/17/18 12:00 12/18/18 10:00 DC 12/18/18 05:39 15 MG Levofloxacin/ Dextrose 100 ml @ 100 mls/hr 1X ONCE 12/19/18 21:00 12/19/18 21:59 DC 12/19/18 20:56 100 MLS/HR Lidocaine HCl (Lidocaine Pf 2% Vial) 5 ml STK-MED ONCE 12/17/18 07:21 12/17/18 07:23 DC Lidocaine HCl (Xylocaine-Mpf 1% 2ml Vial) 2 ml PRN 1X PRN 12/17/18 07:00 12/18/18 06:59 DC Lidocaine/Sodium Bicarbonate (Buffered Lidocaine 1%) 3 ml 1X ONCE 12/23/18 11:00 12/23/18 11:10 DC 12/23/18 11:24 3 ML Lorazepam (Ativan) 0.5 mg PRN Q4HRS PRN 12/24/18 10:30 12/25/18 10:22 DC 12/25/18 04:47 0.5 MG Losartan Potassium (Cozaar) 100 mg DAILY 12/14/18 17:00 12/22/18 10:29 100 MG Memantine (Namenda) 10 mg BID 12/14/18 21:00 12/26/18 21:25 10 MG Midazolam HCl (Versed) 2 mg PRN 1X PRN 12/16/18 07:15 12/17/18 07:14 DC Morphine Sulfate (Morphine Sulfate) 2 mg PRN Q6HRS PRN 12/25/18 18:00 12/27/18 07:39 2 MG Neomycin/ Polymyxin/ Bacitracin (Triple Antibiotic Ointment) 1 pkt PRN TID PRN 12/25/18 14:30 12/26/18 09:58 1 PKT Neostigmine Methylsulfate (Bloxiverz) 10 mg STK-MED ONCE 12/17/18 08:21 12/17/18 08:24 DC Nicotine (Nicoderm Cq 14mg) 1 patch PRN DAILY PRN 12/21/18 19:30 12/26/18 09:59 1 PATCH Non-Formulary Medication (Albuterol Sulfate (Ventolin Hfa Inhaler)) 2 puff Q4HRS 12/14/18 20:00 UNV Ondansetron HCl (Zofran) 4 mg PRN Q6HRS PRN 12/19/18 11:30 12/28/18 04:39 4 MG Pantoprazole Sodium (PROTONIX VIAL for IV PUSH) 40 mg DAILYAC 12/24/18 09:30 12/27/18 07:39 40 MG Pantoprazole Sodium (Protonix) 40 mg DAILYAC 12/14/18 17:00 12/24/18 09:25 DC 12/22/18 05:28 40 MG Phenyleph/Shark Oil/Min Oil/Petrol (Preparation H) 1 ranjith PRN Q4HRS PRN 12/24/18 12:45 12/25/18 20:20 DC Phenylephrine HCl (Bogdan-Synephrine Inj) 10 mg STK-MED ONCE 12/17/18 08:23 12/17/18 08:26 DC Polyethylene Glycol (miraLAX Powder BULK BOTTLE) 238 gm 1X ONCE 12/15/18 12:00 12/15/18 12:01 DC 12/15/18 12:48 238 GM Prochlorperazine Edisylate (Compazine) 5 mg PACU PRN PRN 12/17/18 07:00 12/18/18 06:59 DC Propofol 20 ml @ As Directed STK-MED ONCE 12/17/18 07:21 12/17/18 07:23 DC Ringer's Solution 1,000 ml @ 30 mls/hr Q24H 12/17/18 07:00 12/17/18 18:59 DC 12/17/18 10:34 30 MLS/HR Rocuronium [place] (Zemuron) 50 mg STK-MED ONCE 12/17/18 07:21 12/17/18 07:23 DC Ropinirole HCl (Requip) 3 mg QHS 12/14/18 21:00 12/26/18 21:25 3 MG Sodium Acetate 90 meq/Potassium Chloride 50 meq/ Potassium Phosphate 13.6 mmol/Magnesium Sulfate 15 meq/ Calcium Gluconate 5 meq/ Multivitamins 10 ml/Chromium/ Copper/Manganese/ Seleni/Zn 1 ml/ Total Parenteral Nutrition/Amino Acids/Dextrose/ Fat Emulsion Intravenous 1,512 ml @ 63 mls/hr TPN CONT 12/27/18 22:00 12/28/18 21:59 Sodium Acetate 90 meq/Potassium Chloride 50 meq/ Potassium Phosphate 13.6 mmol/Magnesium Sulfate 18 meq/ Calcium Gluconate 5 meq/ Multivitamins 10 ml/Chromium/ Copper/Manganese/ Seleni/Zn 1 ml/ Total Parenteral Nutrition/Amino Acids/Dextrose/ Fat Emulsion Intravenous 1,512 ml @ 63 mls/hr TPN CONT 12/26/18 22:00 12/28/18 01:28 DC 12/26/18 21:37 63 MLS/HR Sodium Chloride 45 meq/Sodium Acetate 45 meq/ Potassium Chloride 50 meq/ Potassium Phosphate 20.4 mmol/Magnesium Sulfate 18 meq/ Calcium Gluconate 5 meq/ Multivitamins 10 ml/Chromium/ Copper/Manganese/ Seleni/Zn 1 ml/ Total Parenteral Nutrition/Amino Acids/Dextrose/ Fat Emuls... 1,512 ml @ 63 mls/hr TPN CONT 12/25/18 22:00 12/26/18 21:59 DC 12/26/18 00:34 63 MLS/HR Sodium Chloride 90 meq/Potassium Chloride 50 meq/ Potassium Phosphate 20.4 mmol/Magnesium Sulfate 18 meq/ Calcium Gluconate 5 meq/ Multivitamins 10 ml/Chromium/ Copper/Manganese/ Seleni/Zn 1 ml/ Total Parenteral Nutrition/Amino Acids/Dextrose/ Fat Emulsion Intravenous 1,512 ml @ 63 mls/hr TPN CONT 12/23/18 22:00 12/24/18 21:59 DC 12/23/18 21:37 63 MLS/HR Spironolactone (Aldactone) 25 mg DAILY 12/14/18 17:00 12/26/18 10:42 25 MG Succinylcholine Chloride (Anectine) 200 mg STK-MED ONCE 12/17/18 07:21 12/17/18 07:23 DC Throat Lozenges (Cepacol Sore Throat Lozenge) 1 stella PRN Q2HRS PRN 12/18/18 14:00 12/26/18 10:01 1 STELLA Labs: Lab Laboratory Tests Test 12/27/18 12:19 12/27/18 18:27 12/28/18 00:29 12/28/18 06:10 Glucose (Fingerstick) 172 mg/dL (70-99) 183 mg/dL (70-99) 192 mg/dL (70-99) White Blood Count 14.2 x10^3/uL (4.0-11.0) Red Blood Count 3.38 x10^6/uL (3.50-5.40) Hemoglobin 8.1 g/dL (12.0-15.5) Hematocrit 26.0 % (36.0-47.0) Mean Corpuscular Volume 77 fL (79-100) Mean Corpuscular Hemoglobin 24 pg (25-35) Mean Corpuscular Hemoglobin Concent 31 g/dL (31-37) Red Cell Distribution Width 23.4 % (11.5-14.5) Platelet Count 301 x10^3/uL (140-400) Neutrophils (%) (Auto) 86 % (31-73) Lymphocytes (%) (Auto) 6 % (24-48) Monocytes (%) (Auto) 8 % (0-9) Eosinophils (%) (Auto) 0 % (0-3) Basophils (%) (Auto) 0 % (0-3) Neutrophils # (Auto) 12.2 x10^3uL (1.8-7.7) Lymphocytes # (Auto) 0.9 x10^3/uL (1.0-4.8) Monocytes # (Auto) 1.1 x10^3/uL (0.0-1.1) Eosinophils # (Auto) 0.1 x10^3/uL (0.0-0.7) Basophils # (Auto) 0.0 x10^3/uL (0.0-0.2) Sodium Level 140 mmol/L (136-145) Potassium Level 4.6 mmol/L (3.5-5.1) Chloride Level 104 mmol/L (98-107) Carbon Dioxide Level 28 mmol/L (21-32) Anion Gap 8 (6-14) Blood Urea Nitrogen 31 mg/dL (7-20) Creatinine 0.7 mg/dL (0.6-1.0) Estimated GFR (Cockcroft-Gault) 98.7 Glucose Level 226 mg/dL (70-99) Calcium Level 9.1 mg/dL (8.5-10.1) Test 12/28/18 06:18 Glucose (Fingerstick) 208 mg/dL (70-99) Objective: Assessment: ? Sepsis,, normal lactic acid, BC neg Leukocytosis post surgery and then leukopenia, no fever; improved S/P laparoscopic-assisted right colon resection and hemorrhoidectomy on 2018 for bleeding cecal ulcer and hemorrhoids; path negative for malignancy . Distention of small bowel likely representing obstruction. COPD Pneumonia Ileus Anemia Plan: Plan of Care Cefepime f/u c/s and labs in am maintain aspiration DC philippe if feasible D/w MICHAEL SHEIKH MD Dec 28, 2018 08:19
--- NOTE | 2018-12-28 08:52 | NUR ---
Dr. Montoya paged re: lidocaine spray to replace NG tube.
[2018-12-28] MEDS ORDERED: LIDOCAINE WITH 8.4% SOD BICARB 3 ML DISP.SYRIN. INJ ONE (09:00)
--- NOTE | 2018-12-28 09:01 | PDOC ---
PULMONARY PROGRESS NOTES Subjective PT NOT MORE SOA NG IN PLACE FEELS BETTER Vitals Vital Signs Date Time Temp Pulse Resp B/P (MAP) Pulse Ox O2 Delivery O2 Flow Rate FiO2 12/28/18 08:50 Nasal Cannula 3.0 12/28/18 08:14 90 112/74 12/28/18 07:10 98 12/28/18 07:00 98.0 18 98.0 General: Alert, No acute distress Lungs: Clear Cardiovascular: S1 Abdomen: Soft, Other (distended) Extremities: No Edema Skin: Warm Labs Laboratory Tests Test 12/26/18 12:41 12/26/18 19:13 12/27/18 05:30 12/27/18 07:05 Glucose (Fingerstick) 175 mg/dL (70-99) 180 mg/dL (70-99) 183 mg/dL (70-99) Sodium Level 141 mmol/L (136-145) Potassium Level 4.4 mmol/L (3.5-5.1) Chloride Level 105 mmol/L (98-107) Carbon Dioxide Level 26 mmol/L (21-32) Anion Gap 10 (6-14) Blood Urea Nitrogen 31 mg/dL (7-20) Creatinine 0.8 mg/dL (0.6-1.0) Estimated GFR (Cockcroft-Gault) 84.6 BUN/Creatinine Ratio 39 (6-20) Glucose Level 173 mg/dL (70-99) Calcium Level 9.0 mg/dL (8.5-10.1) Phosphorus Level 3.9 mg/dL (2.6-4.7) Magnesium Level 2.2 mg/dL (1.8-2.4) Total Bilirubin 0.3 mg/dL (0.2-1.0) Aspartate Amino Transf (AST/SGOT) 18 U/L (15-37) Alanine Aminotransferase (ALT/SGPT) 20 U/L (14-59) Alkaline Phosphatase 52 U/L (46-116) Total Protein 6.4 g/dL (6.4-8.2) Albumin 2.4 g/dL (3.4-5.0) Albumin/Globulin Ratio 0.6 (1.0-1.7) Test 12/27/18 12:19 12/27/18 18:27 12/28/18 00:29 12/28/18 06:10 Glucose (Fingerstick) 172 mg/dL (70-99) 183 mg/dL (70-99) 192 mg/dL (70-99) White Blood Count 14.2 x10^3/uL (4.0-11.0) Red Blood Count 3.38 x10^6/uL (3.50-5.40) Hemoglobin 8.1 g/dL (12.0-15.5) Hematocrit 26.0 % (36.0-47.0) Mean Corpuscular Volume 77 fL (79-100) Mean Corpuscular Hemoglobin 24 pg (25-35) Mean Corpuscular Hemoglobin Concent 31 g/dL (31-37) Red Cell Distribution Width 23.4 % (11.5-14.5) Platelet Count 301 x10^3/uL (140-400) Neutrophils (%) (Auto) 86 % (31-73) Lymphocytes (%) (Auto) 6 % (24-48) Monocytes (%) (Auto) 8 % (0-9) Eosinophils (%) (Auto) 0 % (0-3) Basophils (%) (Auto) 0 % (0-3) Neutrophils # (Auto) 12.2 x10^3uL (1.8-7.7) Lymphocytes # (Auto) 0.9 x10^3/uL (1.0-4.8) Monocytes # (Auto) 1.1 x10^3/uL (0.0-1.1) Eosinophils # (Auto) 0.1 x10^3/uL (0.0-0.7) Basophils # (Auto) 0.0 x10^3/uL (0.0-0.2) Sodium Level 140 mmol/L (136-145) Potassium Level 4.6 mmol/L (3.5-5.1) Chloride Level 104 mmol/L (98-107) Carbon Dioxide Level 28 mmol/L (21-32) Anion Gap 8 (6-14) Blood Urea Nitrogen 31 mg/dL (7-20) Creatinine 0.7 mg/dL (0.6-1.0) Estimated GFR (Cockcroft-Gault) 98.7 Glucose Level 226 mg/dL (70-99) Calcium Level 9.1 mg/dL (8.5-10.1) Test 12/28/18 06:18 Glucose (Fingerstick) 208 mg/dL (70-99) Laboratory Tests Test 12/27/18 12:19 12/27/18 18:27 12/28/18 00:29 12/28/18 06:10 Glucose (Fingerstick) 172 mg/dL (70-99) 183 mg/dL (70-99) 192 mg/dL (70-99) White Blood Count 14.2 x10^3/uL (4.0-11.0) Red Blood Count 3.38 x10^6/uL (3.50-5.40) Hemoglobin 8.1 g/dL (12.0-15.5) Hematocrit 26.0 % (36.0-47.0) Mean Corpuscular Volume 77 fL (79-100) Mean Corpuscular Hemoglobin 24 pg (25-35) Mean Corpuscular Hemoglobin Concent 31 g/dL (31-37) Red Cell Distribution Width 23.4 % (11.5-14.5) Platelet Count 301 x10^3/uL (140-400) Neutrophils (%) (Auto) 86 % (31-73) Lymphocytes (%) (Auto) 6 % (24-48) Monocytes (%) (Auto) 8 % (0-9) Eosinophils (%) (Auto) 0 % (0-3) Basophils (%) (Auto) 0 % (0-3) Neutrophils # (Auto) 12.2 x10^3uL (1.8-7.7) Lymphocytes # (Auto) 0.9 x10^3/uL (1.0-4.8) Monocytes # (Auto) 1.1 x10^3/uL (0.0-1.1) Eosinophils # (Auto) 0.1 x10^3/uL (0.0-0.7) Basophils # (Auto) 0.0 x10^3/uL (0.0-0.2) Sodium Level 140 mmol/L (136-145) Potassium Level 4.6 mmol/L (3.5-5.1) Chloride Level 104 mmol/L (98-107) Carbon Dioxide Level 28 mmol/L (21-32) Anion Gap 8 (6-14) Blood Urea Nitrogen 31 mg/dL (7-20) Creatinine 0.7 mg/dL (0.6-1.0) Estimated GFR (Cockcroft-Gault) 98.7 Glucose Level 226 mg/dL (70-99) Calcium Level 9.1 mg/dL (8.5-10.1) Test 12/28/18 06:18 Glucose (Fingerstick) 208 mg/dL (70-99) Medications Active Scripts Medications Dose Route/Sig Max Daily Dose Days Date Category Chlorhexidine Gluconate 473 Ml Mouthwash 473 Ml MM BID 7 12/10/18 Rx Vitamin C (Ascorbate Calcium) 500 Mg Tablet 500 Mg PO DAILY 30 11/22/18 Rx Slow Release Iron (Ferrous Sulfate) 250 Mg Tablet.er 250 Mg PO DAILY 30 11/22/18 Rx Protonix (Pantoprazole Sodium) 40 Mg Granpkt.dr 40 Mg PO DAILY 30 11/22/18 Rx Metformin Hcl Er (Metformin Hcl) 500 Mg Tab.er.24h 1 Tab PO DAILY 11/12/16 Reported Namenda (Memantine Hcl) 10 Mg Tablet 1 Tab PO BID 11/12/16 Reported Losartan Potassium 100 Mg Tablet 100 Mg PO DAILY 11/12/16 Reported Spironolactone 25 Mg Tablet 1 Tab PO DAILY 11/12/16 Reported Ventolin Hfa Inhaler (Albuterol Sulfate) 18 Gm Hfa.aer.ad 2 Puff INH Q4HRS 11/11/16 Reported Cymbalta (Duloxetine Hcl) 20 Mg Capsule.dr 90 Mg PO DAILY 01/27/16 Reported Requip (Ropinirole Hcl) 1 Mg Tablet 3 Mg PO DAILY 01/27/16 Reported Amlodipine Besylate 10 Mg Tablet 10 Mg PO DAILY 01/27/16 Reported Impression . 1. Acute hypoxic respiratory failure secondary to underlying chronic obstructive pulmonary disease and increasing abdominal distention 2. Gastrointestinal bleed/cecal ulceration by colonoscopy, status post laparoscopic-assisted right colon resection and hemorrhoidectomy. 3. ileus. 4. Underlying chronic obstructive pulmonary disease. 5. Abnormal CT chest with focal opacity in the right upper lobe, could be nodule/ATELECTASIS Plan . CONTINUE SUPPORT NG ASPIRATE IS NEBS FOLLOW UP CT IN 4 MONTHS D/W DAUGHTER MARIA ALEJANDRA VALENTINE MD Dec 28, 2018 09:01
--- NOTE | 2018-12-28 09:02 | NUR ---
Dr. Montoya returned call, notified of current condition, orders received.
[2018-12-28] MEDS ORDERED: BENZOCAINE ONE 20% MUCOSAL SPRAY. MM (09:30)
--- NOTE | 2018-12-28 09:49 | PDOC ---
Subjective: Subjective: C/o back pain. Says passing gas. Objective: Objective: Reviewed w/ RN - NG placed yesterday w/ ~950cc out, then tube fell out - will replace this morning, still distended w/ some labored breathing. Says discussion of SBS per surgery. Vital Signs: Vital Signs Date Time Temp Pulse Resp B/P (MAP) Pulse Ox O2 Delivery O2 Flow Rate FiO2 12/28/18 08:50 Nasal Cannula 3.0 12/28/18 08:14 90 112/74 12/28/18 07:10 98 12/28/18 07:00 98.0 18 98.0 Labs: Laboratory Tests Test 12/27/18 12:19 12/27/18 18:27 12/28/18 00:29 12/28/18 06:10 Glucose (Fingerstick) 172 mg/dL 183 mg/dL 192 mg/dL White Blood Count 14.2 x10^3/uL Red Blood Count 3.38 x10^6/uL Hemoglobin 8.1 g/dL Hematocrit 26.0 % Mean Corpuscular Volume 77 fL Mean Corpuscular Hemoglobin 24 pg Mean Corpuscular Hemoglobin Concent 31 g/dL Red Cell Distribution Width 23.4 % Platelet Count 301 x10^3/uL Neutrophils (%) (Auto) 86 % Lymphocytes (%) (Auto) 6 % Monocytes (%) (Auto) 8 % Eosinophils (%) (Auto) 0 % Basophils (%) (Auto) 0 % Neutrophils # (Auto) 12.2 x10^3uL Lymphocytes # (Auto) 0.9 x10^3/uL Monocytes # (Auto) 1.1 x10^3/uL Eosinophils # (Auto) 0.1 x10^3/uL Basophils # (Auto) 0.0 x10^3/uL Platelet Estimate Pending Sodium Level 140 mmol/L Potassium Level 4.6 mmol/L Chloride Level 104 mmol/L Carbon Dioxide Level 28 mmol/L Anion Gap 8 Blood Urea Nitrogen 31 mg/dL Creatinine 0.7 mg/dL Estimated GFR (Cockcroft-Gault) 98.7 Glucose Level 226 mg/dL Calcium Level 9.1 mg/dL Test 12/28/18 06:18 Glucose (Fingerstick) 208 mg/dL PE: GEN: NAD - reading newspaper LUNGS: NC HEART: RRR ABD: distended NEURO/PSYCH: awake and alert, bit of difficult historian A/P: S/p right colon resection and hemorrhoidectomy, ileus/SBO Anemia - stable COPD, abnormal chest imaging -- NG to be replaced. Continue per surgery. RADHA JUSTICE Dec 28, 2018 09:49
--- NOTE | 2018-12-28 10:14 | RAD ---
EXAM: Abdomen, single view. HISTORY: Nasogastric tube placement. COMPARISON: 12/27/2018 FINDINGS: A frontal view of the abdomen is obtained. There is a nasogastric tube looped within the stomach. This is not significantly changed compared to the prior study. There are stable distended air-filled loops of bowel throughout the abdomen. There is instrumented and nondistended instrumented fusion with laminectomy decompression involving the lumbar spine. IMPRESSION: 1. Nasogastric tube within the stomach. 2. No significant change in distended loops of bowel throughout the abdomen. Electronically signed by: Judy Valencia MD (12/28/2018 10:10 AM) [id number]
--- NOTE | 2018-12-28 10:24 | PDOC ---
PROGRESS NOTES Chief Complaint Chief Complaint Patient much more alert today compared to yesterday. Unclear the etiology of her transient episode reassurance has been provided not improved 12/28 await SBFT kub 2/122. No significant change in distended loops of bowel throughout the abdomen. History of Present Illness History of Present Illness Assessment/Plan 1. Acute hypoxic respiratory failure secondary to underlying chronic obstructive pulmonary disease and increasing abdominal distention related to ileus: continue supplemental 02. decompress bowel with NG tube to suction.. GI and Gen sx following. NPO status. PICC in place with TPN. 2. S/p right colon resection and hemorrhoidectomy secondary to bleeding cecal ulcer, path negative for malignancy . 3. Underlying COPD. bronchodilator therapy 4. VISHNU, resolving 5. Sepsis/Leukopenia. started cefepime. check cultures. apprec ID - unclear if there is actually a pneumonia, mostly atelectatic lungs 6. Gi bleed acute ,Questionable GI bleed with anemia marked anemia POA. hb stable Colonoscopy in 11/2017 showed diverticulosis, EGD 11/2018 showed non-erosive gastritis Operative Note Date: 12/17/2018 Preoperative diagnosis: GI bleed cecal ulceration by colonoscopy with active bleeding hemorrhoids Postoperative diagnosis: Same Procedure: Laparoscopic-assisted right colon resection and hemorrhoidectomy Surgeon: Jan Specimen: Right colon and hemorrhoids Vitals Vitals Vital Signs Date Time Temp Pulse Resp B/P (MAP) Pulse Ox O2 Delivery O2 Flow Rate FiO2 12/28/18 08:50 Nasal Cannula 3.0 12/28/18 08:14 90 112/74 12/28/18 07:10 98 12/28/18 07:00 98.0 18 98.0 Physical Exam General: Alert, Cooperative, mild distress Heart: Regular rate, Normal S1, Normal S2, No murmurs Lungs: Clear Abdomen: Soft, Other (Mildly distended, Mild ttp NGT in place with bilious output) Extremities: No clubbing, No cyanosis, No edema Skin: No significant lesion Labs LABS EXAM: Abdomen, single view. HISTORY: Nasogastric tube placement. COMPARISON: 12/27/2018 FINDINGS: A frontal view of the abdomen is obtained. There is a nasogastric tube looped within the stomach. This is not significantly changed compared to the prior study. There are stable distended air-filled loops of bowel throughout the abdomen. There is instrumented and nondistended instrumented fusion with laminectomy decompression involving the lumbar spine. IMPRESSION: 1. Nasogastric tube within the stomach. 2. No significant change in distended loops of bowel throughout the abdomen. Electronically signed by: Judy Valencia MD (12/28/2018 10:10 AM) [id number] DICTATED and SIGNED BY: JUDY VALENCIA MD DATE: 12/28/18 1010 Laboratory Tests Test 12/27/18 12:19 12/27/18 18:27 12/28/18 00:29 12/28/18 06:10 Glucose (Fingerstick) 172 mg/dL (70-99) 183 mg/dL (70-99) 192 mg/dL (70-99) White Blood Count 14.2 x10^3/uL (4.0-11.0) Red Blood Count 3.38 x10^6/uL (3.50-5.40) Hemoglobin 8.1 g/dL (12.0-15.5) Hematocrit 26.0 % (36.0-47.0) Mean Corpuscular Volume 77 fL (79-100) Mean Corpuscular Hemoglobin 24 pg (25-35) Mean Corpuscular Hemoglobin Concent 31 g/dL (31-37) Red Cell Distribution Width 23.4 % (11.5-14.5) Platelet Count 301 x10^3/uL (140-400) Neutrophils (%) (Auto) 86 % (31-73) Lymphocytes (%) (Auto) 6 % (24-48) Monocytes (%) (Auto) 8 % (0-9) Eosinophils (%) (Auto) 0 % (0-3) Basophils (%) (Auto) 0 % (0-3) Neutrophils # (Auto) 12.2 x10^3uL (1.8-7.7) Lymphocytes # (Auto) 0.9 x10^3/uL (1.0-4.8) Monocytes # (Auto) 1.1 x10^3/uL (0.0-1.1) Eosinophils # (Auto) 0.1 x10^3/uL (0.0-0.7) Basophils # (Auto) 0.0 x10^3/uL (0.0-0.2) Sodium Level 140 mmol/L (136-145) Potassium Level 4.6 mmol/L (3.5-5.1) Chloride Level 104 mmol/L (98-107) Carbon Dioxide Level 28 mmol/L (21-32) Anion Gap 8 (6-14) Blood Urea Nitrogen 31 mg/dL (7-20) Creatinine 0.7 mg/dL (0.6-1.0) Estimated GFR (Cockcroft-Gault) 98.7 Glucose Level 226 mg/dL (70-99) Calcium Level 9.1 mg/dL (8.5-10.1) Test 12/28/18 06:18 Glucose (Fingerstick) 208 mg/dL (70-99) Comment Review of Relevant I have reviewed the following items abdifatah (where applicable) has been applied. Labs Laboratory Tests Test 12/26/18 12:41 12/26/18 19:13 12/27/18 05:30 12/27/18 07:05 Glucose (Fingerstick) 175 mg/dL (70-99) 180 mg/dL (70-99) 183 mg/dL (70-99) Sodium Level 141 mmol/L (136-145) Potassium Level 4.4 mmol/L (3.5-5.1) Chloride Level 105 mmol/L (98-107) Carbon Dioxide Level 26 mmol/L (21-32) Anion Gap 10 (6-14) Blood Urea Nitrogen 31 mg/dL (7-20) Creatinine 0.8 mg/dL (0.6-1.0) Estimated GFR (Cockcroft-Gault) 84.6 BUN/Creatinine Ratio 39 (6-20) Glucose Level 173 mg/dL (70-99) Calcium Level 9.0 mg/dL (8.5-10.1) Phosphorus Level 3.9 mg/dL (2.6-4.7) Magnesium Level 2.2 mg/dL (1.8-2.4) Total Bilirubin 0.3 mg/dL (0.2-1.0) Aspartate Amino Transf (AST/SGOT) 18 U/L (15-37) Alanine Aminotransferase (ALT/SGPT) 20 U/L (14-59) Alkaline Phosphatase 52 U/L (46-116) Total Protein 6.4 g/dL (6.4-8.2) Albumin 2.4 g/dL (3.4-5.0) Albumin/Globulin Ratio 0.6 (1.0-1.7) Test 12/27/18 12:19 12/27/18 18:27 12/28/18 00:29 12/28/18 06:10 Glucose (Fingerstick) 172 mg/dL (70-99) 183 mg/dL (70-99) 192 mg/dL (70-99) White Blood Count 14.2 x10^3/uL (4.0-11.0) Red Blood Count 3.38 x10^6/uL (3.50-5.40) Hemoglobin 8.1 g/dL (12.0-15.5) Hematocrit 26.0 % (36.0-47.0) Mean Corpuscular Volume 77 fL (79-100) Mean Corpuscular Hemoglobin 24 pg (25-35) Mean Corpuscular Hemoglobin Concent 31 g/dL (31-37) Red Cell Distribution Width 23.4 % (11.5-14.5) Platelet Count 301 x10^3/uL (140-400) Neutrophils (%) (Auto) 86 % (31-73) Lymphocytes (%) (Auto) 6 % (24-48) Monocytes (%) (Auto) 8 % (0-9) Eosinophils (%) (Auto) 0 % (0-3) Basophils (%) (Auto) 0 % (0-3) Neutrophils # (Auto) 12.2 x10^3uL (1.8-7.7) Lymphocytes # (Auto) 0.9 x10^3/uL (1.0-4.8) Monocytes # (Auto) 1.1 x10^3/uL (0.0-1.1) Eosinophils # (Auto) 0.1 x10^3/uL (0.0-0.7) Basophils # (Auto) 0.0 x10^3/uL (0.0-0.2) Sodium Level 140 mmol/L (136-145) Potassium Level 4.6 mmol/L (3.5-5.1) Chloride Level 104 mmol/L (98-107) Carbon Dioxide Level 28 mmol/L (21-32) Anion Gap 8 (6-14) Blood Urea Nitrogen 31 mg/dL (7-20) Creatinine 0.7 mg/dL (0.6-1.0) Estimated GFR (Cockcroft-Gault) 98.7 Glucose Level 226 mg/dL (70-99) Calcium Level 9.1 mg/dL (8.5-10.1) Test 12/28/18 06:18 Glucose (Fingerstick) 208 mg/dL (70-99) Laboratory Tests Test 12/27/18 12:19 12/27/18 18:27 12/28/18 00:29 12/28/18 06:10 Glucose (Fingerstick) 172 mg/dL (70-99) 183 mg/dL (70-99) 192 mg/dL (70-99) White Blood Count 14.2 x10^3/uL (4.0-11.0) Red Blood Count 3.38 x10^6/uL (3.50-5.40) Hemoglobin 8.1 g/dL (12.0-15.5) Hematocrit 26.0 % (36.0-47.0) Mean Corpuscular Volume 77 fL (79-100) Mean Corpuscular Hemoglobin 24 pg (25-35) Mean Corpuscular Hemoglobin Concent 31 g/dL (31-37) Red Cell Distribution Width 23.4 % (11.5-14.5) Platelet Count 301 x10^3/uL (140-400) Neutrophils (%) (Auto) 86 % (31-73) Lymphocytes (%) (Auto) 6 % (24-48) Monocytes (%) (Auto) 8 % (0-9) Eosinophils (%) (Auto) 0 % (0-3) Basophils (%) (Auto) 0 % (0-3) Neutrophils # (Auto) 12.2 x10^3uL (1.8-7.7) Lymphocytes # (Auto) 0.9 x10^3/uL (1.0-4.8) Monocytes # (Auto) 1.1 x10^3/uL (0.0-1.1) Eosinophils # (Auto) 0.1 x10^3/uL (0.0-0.7) Basophils # (Auto) 0.0 x10^3/uL (0.0-0.2) Sodium Level 140 mmol/L (136-145) Potassium Level 4.6 mmol/L (3.5-5.1) Chloride Level 104 mmol/L (98-107) Carbon Dioxide Level 28 mmol/L (21-32) Anion Gap 8 (6-14) Blood Urea Nitrogen 31 mg/dL (7-20) Creatinine 0.7 mg/dL (0.6-1.0) Estimated GFR (Cockcroft-Gault) 98.7 Glucose Level 226 mg/dL (70-99) Calcium Level 9.1 mg/dL (8.5-10.1) Test 12/28/18 06:18 Glucose (Fingerstick) 208 mg/dL (70-99) Microbiology 12/21/18 Blood Culture - Final, Complete NO GROWTH AFTER 5 DAYS 12/25/18 - Final, Resulted 12/25/18 - Final, Resulted 12/25/18 - Final, Resulted 12/25/18 - Final, Resulted 12/25/18 Gram Stain Evaluation - Final, Resulted 12/25/18 Sputum Culture, Resulted Pending Medications Current Medications Sodium Chloride 1,000 ml @ 1,000 mls/hr 1X ONCE IV Last administered on at 13:52; Start 12/14/18 at 13:30; Stop 12/14/18 at 14:29; Status DC Amlodipine Besylate (Norvasc) 10 mg DAILY PO Last administered on 12/26/18at 10: 01; Start 12/14/18 at 17:00 Chlorhexidine Gluconate (Peridex) 15 ml BID MM Last administered on 12/28/18at 08:11; Start 12/14/18 at 21:00 Non-Formulary Medication (Albuterol Sulfate (Ventolin Hfa Inhaler)) 2 puff Q4HRS INH ; Start 12/14/18 at 20:00; Status UNV Ascorbic Acid (Vitamin C) 500 mg DAILY PO Last administered on 12/22/18at 10:30; Start 12/14/18 at 17:00 Duloxetine HCl (Cymbalta) 90 mg DAILY PO Last administered on 12/22/18 10:30; Start 12/14/18 at 17:00 Ferrous Sulfate (Feosol) 325 mg [id number] PO Last administered on 12/22/18 10: 30; Start 12/14/18 at 17:00 Losartan Potassium (Cozaar) 100 mg DAILY PO Last administered on 12/22/18at 10:29 ; Start 12/14/18 at 17:00 Memantine (Namenda) 10 mg BID PO Last administered on 12/26/18at 21:25; Start at 21:00 Pantoprazole Sodium (Protonix) 40 mg DAILYAC PO Last administered on 12/22/18at 05:28; Start 12/14/18 at 17:00; Stop 12/24/18 at 09:25; Status DC Ropinirole HCl (Requip) 3 mg QHS PO Last administered on 12/26/18at 21:25; Start 12/14/18 at 21:00 Spironolactone (Aldactone) 25 mg DAILY PO Last administered on 12/26/18at 10:42 ; Start 12/14/18 at 17:00 Albuterol Sulfate (Ventolin Neb Soln) 2.5 mg Q4HRS NEB Last administered on 11/03at 07:07; Start 12/14/18 at 20:00 Sodium Chloride 1,000 ml @ 80 mls/hr [id number] IV Last administered on 12/23/18at 15:25; Start 12/14/18 at 17:15; Stop 12/23/18 at 21:59; Status DC Acetaminophen (Tylenol) 650 mg PRN Q6HRS PRN PO Pain Last administered on 21:27; Start 12/15/18 at 04:45; Stop 12/26/18 at 21:07; Status DC Polyethylene Glycol (miraLAX Powder BULK BOTTLE) 238 gm 1X ONCE PO Last administered on 12/15/18at 12:48; Start 12/15/18 at 12:00; Stop 12/15/18 at 12:01 ; Status DC Ondansetron HCl (Zofran) 4 mg PRN Q6HRS PRN IV NAUSEA/VOMITING; Start 12/16/18 at 07:00; Stop 12/17/18 at 06:59; Status DC Fentanyl Citrate (Fentanyl 2ml Vial) 25 mcg PRN Q5MIN PRN IV MILD PAIN; Start 12/16/18 at 07:00; Stop 12/16/18 at 16:33; Status DC Fentanyl Citrate (Fentanyl 2ml Vial) 50 mcg PRN Q5MIN PRN IV MODERATE TO SEVERE PAIN; Start 12/16/18 at 07:00; Stop 12/16/18 at 16:33; Status DC Morphine Sulfate (Morphine Sulfate) 1 mg PRN Q10MIN PRN IV SEVERE PAIN; Start 12/16/18 at 07:00; Stop 12/17/18 at 06:59; Status DC Ringer's Solution 1,000 ml @ 30 mls/hr Q24H IV Last administered on 12/16/18at 13:00; Start 12/16/18 at 07:00; Stop 12/16/18 at 18:59; Status DC Lidocaine HCl (Xylocaine-Mpf 1% 2ml Vial) 2 ml PRN 1X PRN ID IV START; Start at 07:00; Stop 12/17/18 at 06:59; Status DC Hydromorphone HCl (Dilaudid) 0.5 mg PRN Q10MIN PRN IV SEV PAIN, Second choice; Start 12/16/18 at 07:00; Stop 12/17/18 at 06:59; Status DC Prochlorperazine Edisylate (Compazine) 5 mg PACU PRN PRN IV NAUSEA, MRX1; Start 12/16/18 at 07:00; Stop 12/17/18 at 06:59; Status DC Midazolam HCl (Versed) 2 mg PRN 1X PRN IV PRIOR TO PROCEDURE; Start 12/16/18 at 07:15; Stop 12/17/18 at 07:14; Status DC Fentanyl Citrate (Fentanyl 2ml Vial) 25 mcg PRN Q5MIN PRN IV X 2 DOSES FOR PAIN ; Start 12/16/18 at 07:15; Stop 12/16/18 at 16:33; Status DC Fentanyl Citrate (Fentanyl 2ml Vial) 50 mcg PRN Q5MIN PRN IV X 2 DOSES FOR PAIN ; Start 12/16/18 at 07:15; Stop 12/16/18 at 16:34; Status DC Ringer's Solution 1,000 ml @ 125 mls/hr Q8H IV ; Start 12/16/18 at 07:13; Stop 12/16/18 at 19:12; Status DC Lidocaine HCl (Xylocaine-Mpf 1% 2ml Vial) 2 ml 1X PRN PRN ID IV START; Start at 07:15; Stop 12/17/18 at 07:14; Status DC Propofol 40 ml @ As Directed STK-MED ONCE IV ; Start 12/16/18 at 13:58; Stop at 14:00; Status DC Prochlorperazine Edisylate (Compazine) 5 mg PACU PRN PRN IV NAUSEA, MRX1; Start 12/17/18 at 07:00; Stop 12/18/18 at 06:59; Status DC Hydromorphone HCl (Dilaudid) 0.5 mg PRN Q10MIN PRN IV SEV PAIN, Second choice; Start 12/17/18 at 07:00; Stop 12/18/18 at 06:59; Status DC Lidocaine HCl (Xylocaine-Mpf 1% 2ml Vial) 2 ml PRN 1X PRN ID IV START; Start at 07:00; Stop 12/18/18 at 06:59; Status DC Ringer's Solution 1,000 ml @ 30 mls/hr Q24H IV Last administered on 12/17/18at 10:34; Start 12/17/18 at 07:00; Stop 12/17/18 at 18:59; Status DC Morphine Sulfate (Morphine Sulfate) 1 mg PRN Q10MIN PRN IV SEVERE PAIN; Start 12/17/18 at 07:00; Stop 12/18/18 at 06:59; Status DC Fentanyl Citrate (Fentanyl 2ml Vial) 50 mcg PRN Q5MIN PRN IV MODERATE TO SEVERE PAIN Last administered on 12/17/18at 11:13; Start 12/17/18 at 07:00; Stop at 06:59; Status DC Fentanyl Citrate (Fentanyl 2ml Vial) 25 mcg PRN Q5MIN PRN IV MILD PAIN; Start 12/17/18 at 07:00; Stop 12/18/18 at 06:59; Status DC Ondansetron HCl (Zofran) 4 mg PRN Q6HRS PRN IV NAUSEA/VOMITING; Start 12/17/18 at 07:00; Stop 12/18/18 at 06:59; Status DC Propofol 20 ml @ As Directed STK-MED ONCE IV ; Start 12/17/18 at 07:21; Stop 12/17 at 07:23; Status DC Albuterol Sulfate (Ventolin Neb Soln) 2.5 mg 1X ONCE NEB ; Start 12/17/18 at 07: 30; Stop 12/17/18 at 07:31; Status DC Lidocaine HCl (Lidocaine Pf 2% Vial) 5 ml STK-MED ONCE .ROUTE ; Start 12/17/18 at 07:21; Stop 12/17/18 at 07:23; Status DC Succinylcholine Chloride (Anectine) 200 mg STK-MED ONCE .ROUTE ; Start 12/17/18 at 07:21; Stop 12/17/18 at 07:23; Status DC Rocuronium [place] (Zemuron) 50 mg STK-MED ONCE .ROUTE ; Start 12/17/18 at 07:21 ; Stop 12/17/18 at 07:23; Status DC Fentanyl Citrate (Fentanyl 2ml Vial) 100 mcg STK-MED ONCE .ROUTE ; Start at 07:21; Stop 12/17/18 at 07:24; Status DC Cefazolin Sodium/ Dextrose 50 ml @ 100 mls/hr 1X ONCE IV Last administered on 12/17/18at 08:07; Start 12/17/18 at 07:45; Stop 12/17/18 at 08:18; Status DC Bupivacaine HCl/ Epinephrine Bitart (Sensorcain-Mpf Epi 0.5%-1:146720) 30 ml STK -MED ONCE .ROUTE Last administered on 12/17/18at 08:34; Start 12/17/18 at 07:46; Stop 12/17/18 at 07:49; Status DC Neomycin/ Polymyxin/ Bacitracin (Triple Antibiotic Ointment) 1 pkt STK-MED ONCE TP Last administered on 12/17/18at 10:07; Start 12/17/18 at 07:46; Stop 12/17/18 at 07:49; Status DC Neomycin/ Polymyxin/ Bacitracin (Triple Antibiotic Ointment) 1 pkt STK-MED ONCE TP Last administered on 12/17/18at 10:07; Start 12/17/18 at 07:46; Stop 12/17/18 at 07:49; Status DC Neomycin/ Polymyxin/ Bacitracin (Triple Antibiotic Ointment) 1 pkt STK-MED ONCE TP ; Start 12/17/18 at 07:47; Stop 12/17/18 at 07:49; Status DC Dexamethasone Sodium Phosphate (Decadron) 20 mg STK-MED ONCE .ROUTE ; Start 12/17 at 07:54; Stop 12/17/18 at 07:56; Status DC Hydrocortisone Sodium Succinate (Solu-CORTEF) 100 mg STK-MED ONCE .ROUTE ; Start 12/17/18 at 07:54; Stop 12/17/18 at 07:56; Status DC Desflurane (Suprane) 90 ml STK-MED ONCE IH ; Start 12/17/18 at 07:54; Stop at 07:56; Status DC Neostigmine Methylsulfate (Bloxiverz) 10 mg STK-MED ONCE .ROUTE ; Start 12/17/18 at 08:21; Stop 12/17/18 at 08:24; Status DC Glycopyrrolate (Robinul) 1 mg STK-MED ONCE .ROUTE ; Start 12/17/18 at 08:21; Stop 12/17/18 at 08:24; Status DC Phenylephrine HCl (Bogdan-Synephrine Inj) 10 mg STK-MED ONCE .ROUTE ; Start at 08:23; Stop 12/17/18 at 08:26; Status DC Desflurane (Suprane) 60 ml STK-MED ONCE IH ; Start 12/17/18 at 09:23; Stop at 09:26; Status DC Bupivacaine HCl/ Epinephrine Bitart (Sensorcain-Mpf Epi 0.5%-1:132110) 30 ml STK -MED ONCE .ROUTE Last administered on 12/17/18at 10:06; Start 12/17/18 at 09:41; Stop 12/17/18 at 09:43; Status DC Morphine Sulfate (Morphine Sulfate) 2 mg PRN Q2HR PRN IV PAIN Last administered on 12/25/18at 09:26; Start 12/17/18 at 10:15; Stop 12/25/18 at 17:54; Status DC Ketorolac Tromethamine (Toradol 15mg Vial) 15 mg Q6HRS IV Last administered on 12/18/18at 05:39; Start 12/17/18 at 12:00; Stop 12/18/18 at 10:00; Status DC Artificial Tears (Artificial Tears) 1 drop PRN Q15MIN PRN OU DRY EYE Last administered on 12/20/18at 21:28; Start 12/18/18 at 08:00 Docusate Sodium (Colace) 100 mg DAILY PO Last administered on 12/26/18 10:01; Start 12/18/18 at 10:00 Throat Lozenges (Cepacol Sore Throat Lozenge) 1 kristyn PRN Q2HRS PRN PO SORE THROAT Last administered on 12/26/18 10:01; Start 12/18/18 at 14:00 Enoxaparin Sodium (Lovenox 40mg Syringe) 40 mg Q24H SQ Last administered on 08:12; Start 12/19/18 at 09:00 Ondansetron HCl (Zofran) 4 mg PRN Q6HRS PRN IV NAUSEA/VOMITING Last administered on 12/28/18 04:39; Start 12/19/18 at 11:30 Insulin Human Lispro (HumaLOG) 0-5 UNITS TIDWMEALS SQ ; Start 12/19/18 at 17:00 Dextrose (Dextrose 50%-Water Syringe) 12.5 gm PRN Q15MIN PRN IV SEE COMMENTS; Start 12/19/18 at 16:45 Levofloxacin/ Dextrose 100 ml @ 100 mls/hr 1X ONCE IV Last administered on 20:56; Start 12/19/18 at 21:00; Stop 12/19/18 at 21:59; Status DC Cefepime HCl (Maxipime) 2 gm Q12HR IVP Last administered on 12/28/18 08:11; Start 12/21/18 at 10:00 Sodium Chloride 1,000 ml @ 125 mls/hr 1X ONCE IV Last administered on 10:43; Start 12/21/18 at 09:45; Stop 12/21/18 at 17:44; Status DC Calcium Carbonate/ Glycine (Tums) 500 mg PRN AFTMEALHC PRN PO INDIGESTION Last administered on 12/21/18 13:10; Start 12/21/18 at 12:15 Lorazepam (Ativan) 1 mg 1X ONCE IV Last administered on 12/21/18 17:50; Start 12/21/18 at 17:30; Stop 12/21/18 at 17:31; Status DC Albuterol Sulfate (Ventolin Neb Soln) 2.5 mg PRN Q2HRS PRN NEB SHORTNESS OF BREATH Last administered on 12/26/18 10:26; Start 12/21/18 at 17:30 Nicotine (Nicoderm Cq 14mg) 1 patch PRN DAILY PRN TD SMOKING CESSATION Last administered on 12/26/18 09:59; Start 12/21/18 at 19:30 Lorazepam (Ativan) 1 mg 1X ONCE IV Last administered on 12/21/18 23:45; Start 12/21/18 at 23:45; Stop 12/21/18 at 23:46; Status DC Lorazepam (Ativan) 1 mg PRN Q4HRS PRN IV ANXIETY / AGITATION Last administered on 12/22/18 11:15; Start 12/21/18 at 23:30; Stop 12/22/18 at 14:42; Status DC Sodium Chloride 1,000 ml @ 250 mls/hr 1X ONCE IV Last administered on 09:15; Start 12/22/18 at 09:15; Stop 12/22/18 at 13:14; Status DC Lidocaine/Sodium Bicarbonate (Buffered Lidocaine 1%) 3 ml STK-MED ONCE .ROUTE ; Start 12/23/18 at 10:33; Stop 12/23/18 at 10:35; Status DC Lidocaine/Sodium Bicarbonate (Buffered Lidocaine 1%) 3 ml 1X ONCE INJ Last administered on 12/23/18 11:24; Start 12/23/18 at 11:00; Stop 12/23/18 at 11:10; Status DC Info (Tpn Per Pharmacy) 1 each PRN DAILY PRN MC SEE COMMENTS Last administered on 12/27/18 14:15; Start 12/23/18 at 14:00 Sodium Chloride 90 meq/Potassium Chloride 50 meq/ Potassium Phosphate 20.4 mmol/ Magnesium Sulfate 18 meq/ Calcium Gluconate 5 meq/ Multivitamins 10 ml/Chromium / Copper/Manganese/ Seleni/Zn 1 ml/ Total Parenteral Nutrition/Amino Acids/ Dextrose/ Fat Emulsion Intravenous 1,512 ml @ 63 mls/hr TPN CONT IV Last administered on 12/23/18 21:37; Start 12/23/18 at 22:00; Stop 12/24/18 at 21:59; Status DC Alprazolam (Xanax) 0.25 mg PRN BID PRN PO ANXIETY / AGITATION Last administered on 12/25/18 09:25; Start 12/23/18 at 23:00; Stop 12/25/18 at 17:54; Status DC Lorazepam (Ativan) 1 mg PRN Q4HRS PRN IV ANXIETY / AGITATION Last administered on 12/24/18at 09:21; Start 12/24/18 at 08:45; Stop 12/24/18 at 10:19; Status DC Pantoprazole Sodium (PROTONIX VIAL for IV PUSH) 40 mg DAILYAC IVP Last administered on 12/28/18at 08:11; Start 12/24/18 at 09:30 Lorazepam (Ativan) 0.5 mg PRN Q4HRS PRN IV ANXIETY / AGITATION Last administered on 12/25/18at 04:47; Start 12/24/18 at 10:30; Stop 12/25/18 at 10:22; Status DC Sodium Chloride 45 meq/Sodium Acetate 45 meq/ Potassium Chloride 50 meq/ Potassium Phosphate 20.4 mmol/Magnesium Sulfate 18 meq/ Calcium Gluconate 5 meq / Multivitamins 10 ml/Chromium/ Copper/Manganese/ Seleni/Zn 1 ml/ Total Parenteral Nutrition/Amino Acids/Dextrose/ Fat Emuls... 1,512 ml @ 63 mls/hr TPN CONT IV Last administered on 12/24/18at 21:57; Start 12/24/18 at 22:00; Stop 12/25/18 at 21:59; Status DC Phenyleph/Shark Oil/Min Oil/Petrol (Preparation H) 1 ranjith PRN Q4HRS PRN RC RECTAL PAIN; Start 12/24/18 at 12:45; Stop 12/25/18 at 20:20; Status DC Sodium Chloride 45 meq/Sodium Acetate 45 meq/ Potassium Chloride 50 meq/ Potassium Phosphate 20.4 mmol/Magnesium Sulfate 18 meq/ Calcium Gluconate 5 meq / Multivitamins 10 ml/Chromium/ Copper/Manganese/ Seleni/Zn 1 ml/ Total Parenteral Nutrition/Amino Acids/Dextrose/ Fat Emuls... 1,512 ml @ 63 mls/hr TPN CONT IV Last administered on 12/26/18at 00:34; Start 12/25/18 at 22:00; Stop 12/26/18 at 21:59; Status DC Neomycin/ Polymyxin/ Bacitracin (Triple Antibiotic Ointment) 1 pkt PRN TID PRN TP skin around rectum, post op Last administered on 12/26/18 09:58; Start at 14:30 Alprazolam (Xanax) 0.25 mg PRN Q8HRS PRN PO ANXIETY / AGITATION Last administered on 12/28/18 04:39; Start 12/25/18 at 18:00 Morphine Sulfate (Morphine Sulfate) 2 mg PRN Q6HRS PRN IV PAIN Last administered on 12/28/18 08:12; Start 12/25/18 at 18:00 Guaifenesin (Mucinex) 600 mg BID PO Last administered on 12/26/18 21:26; Start 12/26/18 at 11:00 Guaifenesin (Mucinex) 600 mg BID PO ; Start 12/26/18 at 11:00; Status UNV Guaifenesin/ Codeine Phosphate (Robitussin Ac) 5 ml PRN Q6HRS PRN PO COUGH Last administered on 12/26/18at 10:41; Start 12/26/18 at 10:30 Sodium Acetate 90 meq/Potassium Chloride 50 meq/ Potassium Phosphate 13.6 mmol/ Magnesium Sulfate 18 meq/ Calcium Gluconate 5 meq/ Multivitamins 10 ml/Chromium / Copper/Manganese/ Seleni/Zn 1 ml/ Total Parenteral Nutrition/Amino Acids/ Dextrose/ Fat Emulsion Intravenous 1,512 ml @ 63 mls/hr TPN CONT IV Last administered on 12/26/18at 21:37; Start 12/26/18 at 22:00; Stop 12/28/18 at 01:28 ; Status DC Benzocaine (Hurricaine One) 1 spray 1X ONCE MM ; Start 12/26/18 at 19:15; Stop 12/26/18 at 19:16; Status DC Acetaminophen (Tylenol) 650 mg PRN Q6HRS PRN PO MILD PAIN / TEMP Last administered on 12/27/18 04:39; Start 12/26/18 at 21:00 Benzocaine (Hurricaine One) 1 spray 1X ONCE MM Last administered on 12/27/18at 09:00; Start 12/27/18 at 09:15; Stop 12/27/18 at 09:16; Status DC Sodium Acetate 90 meq/Potassium Chloride 50 meq/ Potassium Phosphate 13.6 mmol/ Magnesium Sulfate 15 meq/ Calcium Gluconate 5 meq/ Multivitamins 10 ml/Chromium / Copper/Manganese/ Seleni/Zn 1 ml/ Total Parenteral Nutrition/Amino Acids/ Dextrose/ Fat Emulsion Intravenous 1,512 ml @ 63 mls/hr TPN CONT IV ; Start at 22:00; Stop 12/28/18 at 21:59; Status Cancel Sodium Acetate 90 meq/Potassium Chloride 50 meq/ Potassium Phosphate 13.6 mmol/ Magnesium Sulfate 15 meq/ Calcium Gluconate 5 meq/ Multivitamins 10 ml/Chromium / Copper/Manganese/ Seleni/Zn 1 ml/ Total Parenteral Nutrition/Amino Acids/ Dextrose/ Fat Emulsion Intravenous 1,512 ml @ 63 mls/hr TPN CONT IV ; Start at 22:00; Stop 12/28/18 at 21:59 Lidocaine/Sodium Bicarbonate (Buffered Lidocaine 1%) 3 ml 1X ONCE INJ ; Start 12/28/18 at 09:00; Stop 12/28/18 at 09:01; Status Cancel Benzocaine (Hurricaine One) 1 spray 1X ONCE MM Last administered on 12/28/18at 09:32; Start 12/28/18 at 09:30; Stop 12/28/18 at 09:33; Status DC Active Scripts Active Chlorhexidine Gluconate 473 Ml Mouthwash 473 Ml MM BID 7 Days Vitamin C (Ascorbate Calcium) 500 Mg Tablet 500 Mg PO DAILY 30 Days Slow Release Iron (Ferrous Sulfate) 250 Mg Tablet.er 250 Mg PO DAILY 30 Days Protonix (Pantoprazole Sodium) 40 Mg Granpkt. 40 Mg PO DAILY 30 Days Reported Alprazolam 0.25 Mg Tablet 0.25 Mg PO DAILY Metformin Hcl Er (Metformin Hcl) 500 Mg Tab.er.24h 1 Tab PO DAILY Namenda (Memantine Hcl) 10 Mg Tablet 1 Tab PO BID Losartan Potassium 100 Mg Tablet 100 Mg PO DAILY Spironolactone 25 Mg Tablet 1 Tab PO DAILY Ventolin Hfa Inhaler (Albuterol Sulfate) 18 Gm Hfa.aer.ad 2 Puff INH Q4HRS Cymbalta (Duloxetine Hcl) 20 Mg Capsule.dr 90 Mg PO DAILY Requip (Ropinirole Hcl) 1 Mg Tablet 3 Mg PO DAILY Amlodipine Besylate 10 Mg Tablet 10 Mg PO DAILY Vitals/I & O Vital Sign - Last 24 Hours 2/11/19 2/11/19 2/11/19 2/11/19 11:00 12:07 15:00 15:58 Temp 98.0 97.4 98.0 97.4 Pulse 76 83 Resp 18 18 B/P (MAP) 120/77 (91) 112/71 (85) Pulse Ox 98 97 94 O2 Delivery Nasal Cannula Nasal Cannula Nasal Cannula Nasal Cannula O2 Flow Rate 3.0 3.0 3.0 3.0 12/27/18 12/27/18 12/27/18 12/28/18 19:00 19:03 23:27 03:00 Temp 97.9 98.4 97.9 98.4 Pulse 69 90 Resp 18 18 B/P (MAP) 97/63 (74) 111/73 (86) Pulse Ox 96 98 98 O2 Delivery Nasal Cannula Nasal Cannula Nasal Cannula Nasal Cannula O2 Flow Rate 3.0 3.0 3.0 3.0 12/28/18 12/28/18 12/28/18 12/28/18 03:06 07:00 07:10 07:15 Temp 98.0 98.0 Pulse 90 Resp 18 B/P (MAP) 112/74 (87) Pulse Ox 99 97 98 O2 Delivery Nasal Cannula Nasal Cannula Nasal Cannula Nasal Cannula O2 Flow Rate 3.0 3.0 3.0 3.0 12/28/18 12/28/18 12/28/18 12/28/18 08:12 08:13 08:14 08:50 Pulse 90 90 B/P (MAP) 112/74 112/74 O2 Delivery Nasal Cannula Nasal Cannula O2 Flow Rate 3.0 3.0 Intake and Output 12/27/18 12/27/18 12/28/18 15:00 23:00 07:00 Intake Total 760 ml Output Total 200 ml 1675 ml Balance -200 ml -1675 ml 760 ml DAYLIN MILLER MD Dec 28, 2018 10:23
[2018-12-28 10:28] LABS: % LYMPHS 11 % (24-48); % MONOS 5 % (0-10); % SEGS 84 % (35-66); ANISOCYTOSIS MOD; HYPOCHROMIA SLIGHT; PLT ESTIMATE ADEQUATE (ADEQUATE)
[2018-12-28 11:00] VITALS: BP 103/69
--- NOTE | 2018-12-28 11:25 | PDOC ---
SURGICAL PROGRESS NOTE Subjective Still not passing any stool she says she has passed gas. Vital Signs Vital Signs Date Time Temp Pulse Resp B/P (MAP) Pulse Ox O2 Delivery O2 Flow Rate FiO2 12/28/18 11:00 97.7 88 18 103/69 (80) 97 Nasal Cannula 3.0 97.7 I&O Intake and Output 12/28/18 07:00 Intake Total 760 ml Output Total 1875 ml Balance -1115 ml Intake Oral 0 ml Other 760 ml Output Urine Total 725 ml Stool Total 200 ml Gastric Drainage Total 950 ml PATIENT HAS A PILLAI: No General: Alert, Oriented X3, Cooperative, mild distress Abdomen: Normal bowel sounds, Soft, Other (distended NT NGT in place with bilious output) Labs Laboratory Tests Test 12/26/18 12:41 12/26/18 19:13 12/27/18 05:30 12/27/18 07:05 Glucose (Fingerstick) 175 mg/dL (70-99) 180 mg/dL (70-99) 183 mg/dL (70-99) Sodium Level 141 mmol/L (136-145) Potassium Level 4.4 mmol/L (3.5-5.1) Chloride Level 105 mmol/L (98-107) Carbon Dioxide Level 26 mmol/L (21-32) Anion Gap 10 (6-14) Blood Urea Nitrogen 31 mg/dL (7-20) Creatinine 0.8 mg/dL (0.6-1.0) Estimated GFR (Cockcroft-Gault) 84.6 BUN/Creatinine Ratio 39 (6-20) Glucose Level 173 mg/dL (70-99) Calcium Level 9.0 mg/dL (8.5-10.1) Phosphorus Level 3.9 mg/dL (2.6-4.7) Magnesium Level 2.2 mg/dL (1.8-2.4) Total Bilirubin 0.3 mg/dL (0.2-1.0) Aspartate Amino Transf (AST/SGOT) 18 U/L (15-37) Alanine Aminotransferase (ALT/SGPT) 20 U/L (14-59) Alkaline Phosphatase 52 U/L (46-116) Total Protein 6.4 g/dL (6.4-8.2) Albumin 2.4 g/dL (3.4-5.0) Albumin/Globulin Ratio 0.6 (1.0-1.7) Test 12/27/18 12:19 12/27/18 18:27 12/28/18 00:29 12/28/18 06:10 Glucose (Fingerstick) 172 mg/dL (70-99) 183 mg/dL (70-99) 192 mg/dL (70-99) White Blood Count 14.2 x10^3/uL (4.0-11.0) Red Blood Count 3.38 x10^6/uL (3.50-5.40) Hemoglobin 8.1 g/dL (12.0-15.5) Hematocrit 26.0 % (36.0-47.0) Mean Corpuscular Volume 77 fL (79-100) Mean Corpuscular Hemoglobin 24 pg (25-35) Mean Corpuscular Hemoglobin Concent 31 g/dL (31-37) Red Cell Distribution Width 23.4 % (11.5-14.5) Platelet Count 301 x10^3/uL (140-400) Neutrophils (%) (Auto) 86 % (31-73) Lymphocytes (%) (Auto) 6 % (24-48) Monocytes (%) (Auto) 8 % (0-9) Eosinophils (%) (Auto) 0 % (0-3) Basophils (%) (Auto) 0 % (0-3) Neutrophils # (Auto) 12.2 x10^3uL (1.8-7.7) Lymphocytes # (Auto) 0.9 x10^3/uL (1.0-4.8) Monocytes # (Auto) 1.1 x10^3/uL (0.0-1.1) Eosinophils # (Auto) 0.1 x10^3/uL (0.0-0.7) Basophils # (Auto) 0.0 x10^3/uL (0.0-0.2) Segmented Neutrophils % 84 % (35-66) Lymphocytes % 11 % (24-48) Monocytes % 5 % (0-10) Platelet Estimate Adequate (ADEQUATE) Hypochromasia Slight Anisocytosis Mod Sodium Level 140 mmol/L (136-145) Potassium Level 4.6 mmol/L (3.5-5.1) Chloride Level 104 mmol/L (98-107) Carbon Dioxide Level 28 mmol/L (21-32) Anion Gap 8 (6-14) Blood Urea Nitrogen 31 mg/dL (7-20) Creatinine 0.7 mg/dL (0.6-1.0) Estimated GFR (Cockcroft-Gault) 98.7 Glucose Level 226 mg/dL (70-99) Calcium Level 9.1 mg/dL (8.5-10.1) Test 12/28/18 06:18 Glucose (Fingerstick) 208 mg/dL (70-99) Laboratory Tests Test 12/27/18 12:19 12/27/18 18:27 12/28/18 00:29 12/28/18 06:10 Glucose (Fingerstick) 172 mg/dL (70-99) 183 mg/dL (70-99) 192 mg/dL (70-99) White Blood Count 14.2 x10^3/uL (4.0-11.0) Red Blood Count 3.38 x10^6/uL (3.50-5.40) Hemoglobin 8.1 g/dL (12.0-15.5) Hematocrit 26.0 % (36.0-47.0) Mean Corpuscular Volume 77 fL (79-100) Mean Corpuscular Hemoglobin 24 pg (25-35) Mean Corpuscular Hemoglobin Concent 31 g/dL (31-37) Red Cell Distribution Width 23.4 % (11.5-14.5) Platelet Count 301 x10^3/uL (140-400) Neutrophils (%) (Auto) 86 % (31-73) Lymphocytes (%) (Auto) 6 % (24-48) Monocytes (%) (Auto) 8 % (0-9) Eosinophils (%) (Auto) 0 % (0-3) Basophils (%) (Auto) 0 % (0-3) Neutrophils # (Auto) 12.2 x10^3uL (1.8-7.7) Lymphocytes # (Auto) 0.9 x10^3/uL (1.0-4.8) Monocytes # (Auto) 1.1 x10^3/uL (0.0-1.1) Eosinophils # (Auto) 0.1 x10^3/uL (0.0-0.7) Basophils # (Auto) 0.0 x10^3/uL (0.0-0.2) Segmented Neutrophils % 84 % (35-66) Lymphocytes % 11 % (24-48) Monocytes % 5 % (0-10) Platelet Estimate Adequate (ADEQUATE) Hypochromasia Slight Anisocytosis Mod Sodium Level 140 mmol/L (136-145) Potassium Level 4.6 mmol/L (3.5-5.1) Chloride Level 104 mmol/L (98-107) Carbon Dioxide Level 28 mmol/L (21-32) Anion Gap 8 (6-14) Blood Urea Nitrogen 31 mg/dL (7-20) Creatinine 0.7 mg/dL (0.6-1.0) Estimated GFR (Cockcroft-Gault) 98.7 Glucose Level 226 mg/dL (70-99) Calcium Level 9.1 mg/dL (8.5-10.1) Test 12/28/18 06:18 Glucose (Fingerstick) 208 mg/dL (70-99) Assessment/Plan S/P right colon resection Awaiting return of bowel function Will obtain SBFT DAYLIN WEI MD Dec 28, 2018 11:25
--- NOTE | 2018-12-28 12:36 | NUR ---
SW following. Discussed with RN, pt had NG tube placed again. Insurance denied pt's transfer to [facility]. RN notified. SW will continue to follow.
[2018-12-28] MEDS: TPN PER PHARMACY MC PRN ×3 (14:13→14:15)
--- NOTE | 2018-12-28 14:17 | NUR ---
Pharmacy TPN Dosing Note S: ELLE LATHAM is a 72 year old F Currently receiving Central Continuous TPN started 12/23/18 B:Pertinent PMH: SBO Height: 5 feet, 7 inches Weight: 85.045194 kg Current diet: npo LABS: Sodium: 140 Potassium: 4.6 Chloride: 104 Calcium: 9.1 Corrected Calcium: 10.38 Magnesium: 2.2 CO2: 28 SCr: 0.7 Glucose: 231 Albumin: 2.4 AST: 12 ALT: 12 TPN FORMULA: TPN TYPE: Central Continuous AMINO ACIDS: 85 gm DEXTROSE: 260 gm LIPIDS: 40 gm SODIUM ACETATE: 90 mEq POTASSIUM CHLORIDE: 50 mEq POTASSIUM PHOSPHATE: 13.6 mmol MAGNESIUM: 15 mEq CALCIUM: 5 mEq MULTIPLE VITAMIN: 10 ml TRACE ELEMENTS: mte5 1 ml ml(s) TPN PLAN: Labs WNL. Continue same TPN. R: Continue TPN Will monitor electrolytes, glucose, and tolerance to TPN. Umair Oconnell, [facility], 12/28/18 [id number]
[2018-12-28 15:00] VITALS: BP 110/70
--- NOTE | 2018-12-28 15:50 | NUR ---
Pt. c/o NGT feeling strange, dec output noted, output appears more clear. tube advanced approx 1 inch, will continue to monitor. Addendum: 12/28/18 at 1647 by CAL JOHNSON RN Placement verified through auscultation.
--- NOTE | 2018-12-28 17:02 | NUR ---
Clear drainage noted from NGT. KUB ordered for verification of placement
--- NOTE | 2018-12-28 18:21 | NUR ---
Pt. c/o pain. Pt. and son educated on Morphine ordered 2mg IV q6prn. Son stated he did not want the frequency increased.
--- NOTE | 2018-12-28 18:57 | RAD ---
AP abdomen radiograph 12/28/2018 CLINICAL HISTORY: Post NG tube placement. An AP erect portable digital radiograph of the abdomen was obtained. A NG tube is seen. The tip of this tube is coiled within the proximal stomach and overlies the gastric cardia. Air distention of small bowel loops is seen throughout the visualized portions of the abdomen. The abdominal bowel gas pattern is nonspecific. Pedicle screws and stabilizing rods overlie the mid and lower lumbar spine. Degenerative changes are seen involving lower thoracic and throughout the lumbar spine. Elevation of the left hemidiaphragm is noted. IMPRESSION: The tip of the NG tube overlies the gastric cardia. Electronically signed by: Ramos Swartz MD (12/28/2018 6:54 PM) [facility]
[2018-12-28 19:00] VITALS: BP 117/73
[2018-12-28] MEDS: rOPINIRole 1 MG TABLET. PO SCH (21:00)
[2018-12-28] MEDS ORDERED: [UNRECOGNIZED DRUG - OTHER] IV SCH ×10 (22:00)
[2018-12-28] MEDS ORDERED: AMINO ACID IV SCH ×10 (22:00)
[2018-12-28] MEDS ORDERED: TOTAL PARENTERAL NUTRITION IV SCH ×10 (22:00)
[2018-12-28] MEDS ORDERED: DEXTROSE 70% IV SCH ×10 (22:00)
[2018-12-28 23:00] VITALS: BP 131/74
[2018-12-29 03:00] VITALS: BP 122/79
[2018-12-29] MEDS: ALBUTEROL SULFATE 2.5 MG/3 ML NEBU. NEB SCH ×6 (03:57→23:47)
[2018-12-29] MEDS: ONDANSETRON PF 4 MG/2 ML VIAL. IV PRN ×3 (05:04→21:47)
[2018-12-29] MEDS ORDERED: CONTRAST GIVEN. MC PRN ×2 (06:45→07:15)
[2018-12-29] MEDS ORDERED: IOHEXOL 300 MG/ML 100ML VIAL. PO ONE ×2 (06:45→07:00)
[2018-12-29] MEDS: PANTOPRAZOLE IV PUSH 40 MG VIAL. IVP SCH (07:11)
[2018-12-29] MEDS: MORPHINE SULFATE 4 MG/ML VIAL. IV PRN ×3 (07:11→21:47)
[2018-12-29 07:29] LABS: ALBUMIN 2.3 g/dL (3.4-5.0); ALBUMIN/GLOBULIN RATIO 0.6 (1.0-1.7); CALCIUM 9.4 mg/dL (8.5-10.1); CREATININE 0.8 mg/dL (0.6-1.0); GFR 84.6; POTASSIUM 4.6 mmol/L (3.5-5.1); TOTAL BILIRUBIN 0.2 mg/dL (0.2-1.0); TOTAL PROTEIN 6.3 g/dL (6.4-8.2)
[2018-12-29 07:37] LABS: BASO % 0 % (0-3); EOS # 0.1 x10^3/uL (0.0-0.7); EOS % 1 % (0-3); HEMATOCRIT 25.9 % (36.0-47.0); LYMPH # 1.1 x10^3/uL (1.0-4.8); LYMPH % 8 % (24-48); MEAN CORPUSCULAR HEMOGLOBIN 24 pg (25-35); MEAN CORPUSCULAR HGB CONC 31 g/dL (31-37); MEAN CORPUSCULAR VOLUME 77 fL (79-100); MONO % 7 % (0-9); NEUT # 12.4 x10^3uL (1.8-7.7); NEUT % 85 % (31-73); PLATELET COUNT 342 x10^3/uL (140-400); RED BLOOD COUNT 3.37 x10^6/uL (3.50-5.40); RED CELL DISTRIBUTION WIDTH 23.6 % (11.5-14.5); WHITE BLOOD COUNT 14.6 x10^3/uL (4.0-11.0)
[2018-12-29] MEDS: FERROUS SULFATE 325 MG TABLET. PO SCH (08:00)
[2018-12-29] MEDS: INSULIN LISPRO 300 UNITS/3 ML INSULN.PEN. SQ SCH ×3 (08:00→17:00)
--- NOTE | 2018-12-29 08:59 | PDOC ---
PULMONARY PROGRESS NOTES Subjective PT NOT MORE SOA NG IN PLACE FEELS BETTER Vitals Vital Signs Date Time Temp Pulse Resp B/P (MAP) Pulse Ox O2 Delivery O2 Flow Rate FiO2 12/29/18 07:18 90 Nasal Cannula 3.0 12/29/18 03:00 98.7 80 18 122/79 (93) 98.7 General: Alert, No acute distress Lungs: Clear Cardiovascular: S1 Abdomen: Soft, Other (distended) Extremities: No Edema Skin: Warm Labs Laboratory Tests Test 12/27/18 12:19 12/27/18 18:27 12/28/18 00:29 12/28/18 06:10 Glucose (Fingerstick) 172 mg/dL (70-99) 183 mg/dL (70-99) 192 mg/dL (70-99) White Blood Count 14.2 x10^3/uL (4.0-11.0) Red Blood Count 3.38 x10^6/uL (3.50-5.40) Hemoglobin 8.1 g/dL (12.0-15.5) Hematocrit 26.0 % (36.0-47.0) Mean Corpuscular Volume 77 fL (79-100) Mean Corpuscular Hemoglobin 24 pg (25-35) Mean Corpuscular Hemoglobin Concent 31 g/dL (31-37) Red Cell Distribution Width 23.4 % (11.5-14.5) Platelet Count 301 x10^3/uL (140-400) Neutrophils (%) (Auto) 86 % (31-73) Lymphocytes (%) (Auto) 6 % (24-48) Monocytes (%) (Auto) 8 % (0-9) Eosinophils (%) (Auto) 0 % (0-3) Basophils (%) (Auto) 0 % (0-3) Neutrophils # (Auto) 12.2 x10^3uL (1.8-7.7) Lymphocytes # (Auto) 0.9 x10^3/uL (1.0-4.8) Monocytes # (Auto) 1.1 x10^3/uL (0.0-1.1) Eosinophils # (Auto) 0.1 x10^3/uL (0.0-0.7) Basophils # (Auto) 0.0 x10^3/uL (0.0-0.2) Segmented Neutrophils % 84 % (35-66) Lymphocytes % 11 % (24-48) Monocytes % 5 % (0-10) Platelet Estimate Adequate (ADEQUATE) Hypochromasia Slight Anisocytosis Mod Sodium Level 140 mmol/L (136-145) Potassium Level 4.6 mmol/L (3.5-5.1) Chloride Level 104 mmol/L (98-107) Carbon Dioxide Level 28 mmol/L (21-32) Anion Gap 8 (6-14) Blood Urea Nitrogen 31 mg/dL (7-20) Creatinine 0.7 mg/dL (0.6-1.0) Estimated GFR (Cockcroft-Gault) 98.7 Glucose Level 226 mg/dL (70-99) Calcium Level 9.1 mg/dL (8.5-10.1) Test 12/28/18 06:18 12/28/18 11:49 12/28/18 18:07 12/29/18 06:24 Glucose (Fingerstick) 208 mg/dL (70-99) 231 mg/dL (70-99) 191 mg/dL (70-99) 227 mg/dL (70-99) Test 12/29/18 06:45 White Blood Count 14.6 x10^3/uL (4.0-11.0) Red Blood Count 3.37 x10^6/uL (3.50-5.40) Hemoglobin 8.0 g/dL (12.0-15.5) Hematocrit 25.9 % (36.0-47.0) Mean Corpuscular Volume 77 fL (79-100) Mean Corpuscular Hemoglobin 24 pg (25-35) Mean Corpuscular Hemoglobin Concent 31 g/dL (31-37) Red Cell Distribution Width 23.6 % (11.5-14.5) Platelet Count 342 x10^3/uL (140-400) Neutrophils (%) (Auto) 85 % (31-73) Lymphocytes (%) (Auto) 8 % (24-48) Monocytes (%) (Auto) 7 % (0-9) Eosinophils (%) (Auto) 1 % (0-3) Basophils (%) (Auto) 0 % (0-3) Neutrophils # (Auto) 12.4 x10^3uL (1.8-7.7) Lymphocytes # (Auto) 1.1 x10^3/uL (1.0-4.8) Monocytes # (Auto) 1.0 x10^3/uL (0.0-1.1) Eosinophils # (Auto) 0.1 x10^3/uL (0.0-0.7) Basophils # (Auto) 0.0 x10^3/uL (0.0-0.2) Sodium Level 140 mmol/L (136-145) Potassium Level 4.6 mmol/L (3.5-5.1) Chloride Level 104 mmol/L (98-107) Carbon Dioxide Level 30 mmol/L (21-32) Anion Gap 6 (6-14) Blood Urea Nitrogen 31 mg/dL (7-20) Creatinine 0.8 mg/dL (0.6-1.0) Estimated GFR (Cockcroft-Gault) 84.6 BUN/Creatinine Ratio 39 (6-20) Glucose Level 265 mg/dL (70-99) Calcium Level 9.4 mg/dL (8.5-10.1) Total Bilirubin 0.2 mg/dL (0.2-1.0) Aspartate Amino Transf (AST/SGOT) 24 U/L (15-37) Alanine Aminotransferase (ALT/SGPT) 23 U/L (14-59) Alkaline Phosphatase 58 U/L (46-116) Total Protein 6.3 g/dL (6.4-8.2) Albumin 2.3 g/dL (3.4-5.0) Albumin/Globulin Ratio 0.6 (1.0-1.7) Laboratory Tests Test 12/28/18 11:49 12/28/18 18:07 12/29/18 06:24 12/29/18 06:45 Glucose (Fingerstick) 231 mg/dL (70-99) 191 mg/dL (70-99) 227 mg/dL (70-99) White Blood Count 14.6 x10^3/uL (4.0-11.0) Red Blood Count 3.37 x10^6/uL (3.50-5.40) Hemoglobin 8.0 g/dL (12.0-15.5) Hematocrit 25.9 % (36.0-47.0) Mean Corpuscular Volume 77 fL (79-100) Mean Corpuscular Hemoglobin 24 pg (25-35) Mean Corpuscular Hemoglobin Concent 31 g/dL (31-37) Red Cell Distribution Width 23.6 % (11.5-14.5) Platelet Count 342 x10^3/uL (140-400) Neutrophils (%) (Auto) 85 % (31-73) Lymphocytes (%) (Auto) 8 % (24-48) Monocytes (%) (Auto) 7 % (0-9) Eosinophils (%) (Auto) 1 % (0-3) Basophils (%) (Auto) 0 % (0-3) Neutrophils # (Auto) 12.4 x10^3uL (1.8-7.7) Lymphocytes # (Auto) 1.1 x10^3/uL (1.0-4.8) Monocytes # (Auto) 1.0 x10^3/uL (0.0-1.1) Eosinophils # (Auto) 0.1 x10^3/uL (0.0-0.7) Basophils # (Auto) 0.0 x10^3/uL (0.0-0.2) Sodium Level 140 mmol/L (136-145) Potassium Level 4.6 mmol/L (3.5-5.1) Chloride Level 104 mmol/L (98-107) Carbon Dioxide Level 30 mmol/L (21-32) Anion Gap 6 (6-14) Blood Urea Nitrogen 31 mg/dL (7-20) Creatinine 0.8 mg/dL (0.6-1.0) Estimated GFR (Cockcroft-Gault) 84.6 BUN/Creatinine Ratio 39 (6-20) Glucose Level 265 mg/dL (70-99) Calcium Level 9.4 mg/dL (8.5-10.1) Total Bilirubin 0.2 mg/dL (0.2-1.0) Aspartate Amino Transf (AST/SGOT) 24 U/L (15-37) Alanine Aminotransferase (ALT/SGPT) 23 U/L (14-59) Alkaline Phosphatase 58 U/L (46-116) Total Protein 6.3 g/dL (6.4-8.2) Albumin 2.3 g/dL (3.4-5.0) Albumin/Globulin Ratio 0.6 (1.0-1.7) Medications Active Scripts Medications Dose Route/Sig Max Daily Dose Days Date Category Chlorhexidine Gluconate 473 Ml Mouthwash 473 Ml MM BID 7 12/10/18 Rx Vitamin C (Ascorbate Calcium) 500 Mg Tablet 500 Mg PO DAILY 30 11/22/18 Rx Slow Release Iron (Ferrous Sulfate) 250 Mg Tablet.er 250 Mg PO DAILY 30 11/22/18 Rx Protonix (Pantoprazole Sodium) 40 Mg Granpkt.dr 40 Mg PO DAILY 30 11/22/18 Rx Metformin Hcl Er (Metformin Hcl) 500 Mg Tab.er.24h 1 Tab PO DAILY 11/12/16 Reported Namenda (Memantine Hcl) 10 Mg Tablet 1 Tab PO BID 11/12/16 Reported Losartan Potassium 100 Mg Tablet 100 Mg PO DAILY 11/12/16 Reported Spironolactone 25 Mg Tablet 1 Tab PO DAILY 11/12/16 Reported Ventolin Hfa Inhaler (Albuterol Sulfate) 18 Gm Hfa.aer.ad 2 Puff INH Q4HRS 11/11/16 Reported Cymbalta (Duloxetine Hcl) 20 Mg Capsule.dr 90 Mg PO DAILY 01/27/16 Reported Requip (Ropinirole Hcl) 1 Mg Tablet 3 Mg PO DAILY 01/27/16 Reported Amlodipine Besylate 10 Mg Tablet 10 Mg PO DAILY 01/27/16 Reported Impression . 1. Acute hypoxic respiratory failure secondary to underlying chronic obstructive pulmonary disease and increasing abdominal distention 2. Gastrointestinal bleed/cecal ulceration by colonoscopy, status post laparoscopic-assisted right colon resection and hemorrhoidectomy. 3. ileus. 4. Underlying chronic obstructive pulmonary disease. 5. Abnormal CT chest with focal opacity in the right upper lobe, could be nodule/ATELECTASIS Plan . CXR IN AM CONTINUE SUPPORT NG ASPIRATE PER SURGEON IS NEBS FOLLOW UP CT IN 4 MONTHS MARIA ALEJANDRA VALENTINE MD Dec 29, 2018 08:59
[2018-12-29] MEDS: DOCUSATE SODIUM 100 MG CAPSULE. PO SCH (09:00)
[2018-12-29] MEDS: DULoxetine HCL 30 MG CAPSULE.DR PO SCH (09:00)
[2018-12-29] MEDS: LOSARTAN POTASSIUM 50 MG TABLET. PO SCH (09:00)
[2018-12-29] MEDS: amLODIPine BESYLATE 10 MG TABLET PO SCH (09:00)
[2018-12-29] MEDS: ASCORBIC ACID 500 MG TABLET PO SCH (09:00)
[2018-12-29] MEDS: MEMANTINE 10 MG TABLET. PO SCH ×2 (09:00→21:42)
[2018-12-29] MEDS: SPIRONOLACTONE 25 MG TABLET PO SCH (09:00)
--- NOTE | 2018-12-29 09:34 | PDOC ---
Objective: Objective: Reviewed w/ RN - out for imaging, about ~400cc out of NG since yesterday, still distended. Vital Signs: Vital Signs Date Time Temp Pulse Resp B/P (MAP) Pulse Ox O2 Delivery O2 Flow Rate FiO2 12/29/18 07:18 90 Nasal Cannula 3.0 12/29/18 03:00 98.7 80 18 122/79 (93) 98.7 Labs: Laboratory Tests Test 12/28/18 11:49 12/28/18 18:07 12/29/18 06:24 12/29/18 06:45 Glucose (Fingerstick) 231 mg/dL 191 mg/dL 227 mg/dL White Blood Count 14.6 x10^3/uL Red Blood Count 3.37 x10^6/uL Hemoglobin 8.0 g/dL Hematocrit 25.9 % Mean Corpuscular Volume 77 fL Mean Corpuscular Hemoglobin 24 pg Mean Corpuscular Hemoglobin Concent 31 g/dL Red Cell Distribution Width 23.6 % Platelet Count 342 x10^3/uL Neutrophils (%) (Auto) 85 % Lymphocytes (%) (Auto) 8 % Monocytes (%) (Auto) 7 % Eosinophils (%) (Auto) 1 % Basophils (%) (Auto) 0 % Neutrophils # (Auto) 12.4 x10^3uL Lymphocytes # (Auto) 1.1 x10^3/uL Monocytes # (Auto) 1.0 x10^3/uL Eosinophils # (Auto) 0.1 x10^3/uL Basophils # (Auto) 0.0 x10^3/uL Sodium Level 140 mmol/L Potassium Level 4.6 mmol/L Chloride Level 104 mmol/L Carbon Dioxide Level 30 mmol/L Anion Gap 6 Blood Urea Nitrogen 31 mg/dL Creatinine 0.8 mg/dL Estimated GFR (Cockcroft-Gault) 84.6 BUN/Creatinine Ratio 39 Glucose Level 265 mg/dL Calcium Level 9.4 mg/dL Total Bilirubin 0.2 mg/dL Aspartate Amino Transf (AST/SGOT) 24 U/L Alanine Aminotransferase (ALT/SGPT) 23 U/L Alkaline Phosphatase 58 U/L Total Protein 6.3 g/dL Albumin 2.3 g/dL Albumin/Globulin Ratio 0.6 Imaging: KUB 12/28 An AP erect portable digital radiograph of the abdomen was obtained. A NG tube is seen. The tip of this tube is coiled within the proximal stomach and overlies the gastric cardia. Air distention of small bowel loops is seen throughout the visualized portions of the abdomen. The abdominal bowel gas pattern is nonspecific. Pedicle screws and stabilizing rods overlie the mid and lower lumbar spine. Degenerative changes are seen involving lower thoracic and throughout the lumbar spine. Elevation of the left hemidiaphragm is noted. IMPRESSION: The tip of the NG tube overlies the gastric cardia. SBS 12/29 (pending) PE: out of room A/P: S/p right colon resection and hemorrhoidectomy - ileus vs SBO, on TPN w/ NG tube Anemia - stable COPD/abnormal chest imaging, leukocytosis -- Await SBS. RADHA JUSTICE Dec 29, 2018 09:34
--- NOTE | 2018-12-29 09:47 | PDOC ---
Infectious Disease Note Subjective: Subjective Pt says feels ok awaiting abdo series abdominal distention some sob some nausea ,no vomiting low grade fevers wbc 14k today d/w RN ROS: ROS Negative except for above. Vital Signs: Vital Signs Vital Signs Date Time Temp Pulse Resp B/P (MAP) Pulse Ox O2 Delivery O2 Flow Rate FiO2 12/29/18 07:18 90 Nasal Cannula 3.0 12/29/18 03:00 98.7 80 18 122/79 (93) 98.7 Physical Exam: PHYSICAL EXAM GENERAL: awake alert HEENT:no icterus, ngt + NECK: Supple LUNGS: Clear anteriorly HEART: S1, S2 ABDOMEN: Distended, soft, hypoactive BS. dressings dry EXTREMITIES: No edema or cyanosis. SKIN: No rash. Rectal wound clean NEUROLOGIC: alert awake Dunn in place RUE-PICC (12/23) clean Medications: Inpatient Meds: Current Medications Medications (Trade) Dose Ordered Sig/Buffy Start Time Stop Time Status Last Admin Dose Admin Acetaminophen (Tylenol) 650 mg PRN Q6HRS PRN 12/26/18 21:00 12/27/18 04:39 Albuterol Sulfate (Ventolin Neb Soln) 2.5 mg PRN Q2HRS PRN 12/21/18 17:30 12/26/18 10:26 Alprazolam (Xanax) 0.25 mg PRN Q8HRS PRN 12/25/18 18:00 12/28/18 04:39 Amlodipine Besylate (Norvasc) 10 mg DAILY 12/14/18 17:00 12/26/18 10:01 Artificial Tears (Artificial Tears) 1 drop PRN Q15MIN PRN 12/18/18 08:00 12/20/18 21:28 Ascorbic Acid (Vitamin C) 500 mg DAILY 12/14/18 17:00 12/22/18 10:30 Benzocaine (Hurricaine One) 1 spray 1X ONCE 12/28/18 09:30 12/28/18 09:33 DC 12/28/18 09:32 Bupivacaine HCl/ Epinephrine Bitart (Sensorcain-Mpf Epi 0.5%-1:[id number]) 30 ml STK-MED ONCE 12/17/18 09:41 12/17/18 09:43 DC 12/17/18 10:06 Calcium Carbonate/ Glycine (Tums) 500 mg PRN AFTMEALHC PRN 12/21/18 12:15 12/21/18 13:10 Cefazolin Sodium/ Dextrose 50 ml @ 100 mls/hr 1X ONCE 12/17/18 07:45 12/17/18 08:18 DC 12/17/18 08:07 Cefepime HCl (Maxipime) 2 gm Q12HR 12/21/18 10:00 12/28/18 21:06 Chlorhexidine Gluconate (Peridex) 15 ml BID 12/14/18 21:00 12/28/18 21:05 Desflurane (Suprane) 60 ml STK-MED ONCE 12/17/18 09:23 12/17/18 09:26 DC Dexamethasone Sodium Phosphate (Decadron) 20 mg STK-MED ONCE 12/17/18 07:54 12/17/18 07:56 DC Dextrose (Dextrose 50%-Water Syringe) 12.5 gm PRN Q15MIN PRN 12/19/18 16:45 Docusate Sodium (Colace) 100 mg DAILY 12/18/18 10:00 12/26/18 10:01 Duloxetine HCl (Cymbalta) 90 mg DAILY 12/14/18 17:00 12/22/18 10:30 Enoxaparin Sodium (Lovenox 40mg Syringe) 40 mg Q24H 12/19/18 09:00 12/28/18 08:12 Fentanyl Citrate (Fentanyl 2ml Vial) 100 mcg STK-MED ONCE 12/17/18 07:21 12/17/18 07:24 DC Ferrous Sulfate (Feosol) 325 mg DAILYWBKFT 12/14/18 17:00 12/22/18 10:30 Glycopyrrolate (Robinul) 1 mg STK-MED ONCE 12/17/18 08:21 12/17/18 08:24 DC Guaifenesin (Mucinex) 600 mg BID 12/26/18 11:00 UNV Guaifenesin/ Codeine Phosphate (Robitussin Ac) 5 ml PRN Q6HRS PRN 12/26/18 10:30 12/26/18 10:41 Hydrocortisone Sodium Succinate (Solu-CORTEF) 100 mg STK-MED ONCE 12/17/18 07:54 12/17/18 07:56 DC Hydromorphone HCl (Dilaudid) 0.5 mg PRN Q10MIN PRN 12/17/18 07:00 12/18/18 06:59 DC Info (CONTRAST GIVEN -- Rx MONITORING) 1 each PRN DAILY PRN 12/29/18 07:15 12/31/18 07:14 Info (Tpn Per Pharmacy) 1 each PRN DAILY PRN 12/23/18 14:00 12/28/18 14:15 Insulin Human Lispro (HumaLOG) 0-5 UNITS TIDWMEALS 12/19/18 17:00 Iohexol (Omnipaque 300 Mg/ml) 400 ml 1X ONCE 12/29/18 07:00 12/29/18 07:03 DC Ketorolac Tromethamine (Toradol 15mg Vial) 15 mg Q6HRS 12/17/18 12:00 12/18/18 10:00 DC 12/18/18 05:39 Levofloxacin/ Dextrose 100 ml @ 100 mls/hr 1X ONCE 12/19/18 21:00 12/19/18 21:59 DC 12/19/18 20:56 Lidocaine HCl (Lidocaine Pf 2% Vial) 5 ml STK-MED ONCE 12/17/18 07:21 12/17/18 07:23 DC Lidocaine HCl (Xylocaine-Mpf 1% 2ml Vial) 2 ml PRN 1X PRN 12/17/18 07:00 12/18/18 06:59 DC Lidocaine/Sodium Bicarbonate (Buffered Lidocaine 1%) 3 ml 1X ONCE 12/28/18 09:00 12/28/18 09:01 Cancel Lorazepam (Ativan) 0.5 mg PRN Q4HRS PRN 12/24/18 10:30 12/25/18 10:22 DC 12/25/18 04:47 Losartan Potassium (Cozaar) 100 mg DAILY 12/14/18 17:00 12/22/18 10:29 Memantine (Namenda) 10 mg BID 12/14/18 21:00 12/26/18 21:25 Midazolam HCl (Versed) 2 mg PRN 1X PRN 12/16/18 07:15 12/17/18 07:14 DC Morphine Sulfate (Morphine Sulfate) 2 mg PRN Q6HRS PRN 12/25/18 18:00 12/29/18 07:11 Neomycin/ Polymyxin/ Bacitracin (Triple Antibiotic Ointment) 1 pkt PRN TID PRN 12/25/18 14:30 12/26/18 09:58 Neostigmine Methylsulfate (Bloxiverz) 10 mg STK-MED ONCE 12/17/18 08:21 12/17/18 08:24 DC Nicotine (Nicoderm Cq 14mg) 1 patch PRN DAILY PRN 12/21/18 19:30 12/26/18 09:59 Non-Formulary Medication (Albuterol Sulfate (Ventolin Hfa Inhaler)) 2 puff Q4HRS 12/14/18 20:00 UNV Ondansetron HCl (Zofran) 4 mg PRN Q6HRS PRN 12/19/18 11:30 12/29/18 05:04 Pantoprazole Sodium (PROTONIX VIAL for IV PUSH) 40 mg DAILYAC 12/24/18 09:30 12/29/18 07:11 Pantoprazole Sodium (Protonix) 40 mg DAILYAC 12/14/18 17:00 12/24/18 09:25 DC 12/22/18 05:28 Phenyleph/Shark Oil/Min Oil/Petrol (Preparation H) 1 ranjith PRN Q4HRS PRN 12/24/18 12:45 12/25/18 20:20 DC Phenylephrine HCl (Bogdan-Synephrine Inj) 10 mg STK-MED ONCE 12/17/18 08:23 12/17/18 08:26 DC Polyethylene Glycol (miraLAX Powder BULK BOTTLE) 238 gm 1X ONCE 12/15/18 12:00 12/15/18 12:01 DC 12/15/18 12:48 Prochlorperazine Edisylate (Compazine) 5 mg PACU PRN PRN 12/17/18 07:00 12/18/18 06:59 DC Propofol 20 ml @ As Directed STK-MED ONCE 12/17/18 07:21 12/17/18 07:23 DC Ringer's Solution 1,000 ml @ 30 mls/hr Q24H 12/17/18 07:00 12/17/18 18:59 DC 12/17/18 10:34 Rocuronium [place] (Zemuron) 50 mg STK-MED ONCE 12/17/18 07:21 12/17/18 07:23 DC Ropinirole HCl (Requip) 3 mg QHS 12/14/18 21:00 12/26/18 21:25 Sodium Acetate 90 meq/Potassium Chloride 50 meq/ Potassium Phosphate 13.6 mmol/Magnesium Sulfate 15 meq/ Calcium Gluconate 5 meq/ Multivitamins 10 ml/Chromium/ Copper/Manganese/ Seleni/Zn 1 ml/ Total Parenteral Nutrition/Amino Acids/Dextrose/ Fat Emulsion Intravenous 1,512 ml @ 63 mls/hr TPN CONT 12/28/18 22:00 12/29/18 21:59 12/28/18 22:06 Sodium Acetate 90 meq/Potassium Chloride 50 meq/ Potassium Phosphate 13.6 mmol/Magnesium Sulfate 18 meq/ Calcium Gluconate 5 meq/ Multivitamins 10 ml/Chromium/ Copper/Manganese/ Seleni/Zn 1 ml/ Total Parenteral Nutrition/Amino Acids/Dextrose/ Fat Emulsion Intravenous 1,512 ml @ 63 mls/hr TPN CONT 12/26/18 22:00 12/28/18 01:28 DC 12/26/18 21:37 Sodium Chloride 45 meq/Sodium Acetate 45 meq/ Potassium Chloride 50 meq/ Potassium Phosphate 20.4 mmol/Magnesium Sulfate 18 meq/ Calcium Gluconate 5 meq/ Multivitamins 10 ml/Chromium/ Copper/Manganese/ Seleni/Zn 1 ml/ Total Parenteral Nutrition/Amino Acids/Dextrose/ Fat Emuls... 1,512 ml @ 63 mls/hr TPN CONT 12/25/18 22:00 12/26/18 21:59 DC 12/26/18 00:34 Sodium Chloride 90 meq/Potassium Chloride 50 meq/ Potassium Phosphate 20.4 mmol/Magnesium Sulfate 18 meq/ Calcium Gluconate 5 meq/ Multivitamins 10 ml/Chromium/ Copper/Manganese/ Seleni/Zn 1 ml/ Total Parenteral Nutrition/Amino Acids/Dextrose/ Fat Emulsion Intravenous 1,512 ml @ 63 mls/hr TPN CONT 12/23/18 22:00 12/24/18 21:59 DC 12/23/18 21:37 Spironolactone (Aldactone) 25 mg DAILY 12/14/18 17:00 12/26/18 10:42 Succinylcholine Chloride (Anectine) 200 mg STK-MED ONCE 12/17/18 07:21 12/17/18 07:23 DC Throat Lozenges (Cepacol Sore Throat Lozenge) 1 kristyn PRN Q2HRS PRN 12/18/18 14:00 12/26/18 10:01 Labs: Lab Laboratory Tests Test 12/28/18 11:49 12/28/18 18:07 12/29/18 06:24 12/29/18 06:45 Glucose (Fingerstick) 231 mg/dL (70-99) 191 mg/dL (70-99) 227 mg/dL (70-99) White Blood Count 14.6 x10^3/uL (4.0-11.0) Red Blood Count 3.37 x10^6/uL (3.50-5.40) Hemoglobin 8.0 g/dL (12.0-15.5) Hematocrit 25.9 % (36.0-47.0) Mean Corpuscular Volume 77 fL (79-100) Mean Corpuscular Hemoglobin 24 pg (25-35) Mean Corpuscular Hemoglobin Concent 31 g/dL (31-37) Red Cell Distribution Width 23.6 % (11.5-14.5) Platelet Count 342 x10^3/uL (140-400) Neutrophils (%) (Auto) 85 % (31-73) Lymphocytes (%) (Auto) 8 % (24-48) Monocytes (%) (Auto) 7 % (0-9) Eosinophils (%) (Auto) 1 % (0-3) Basophils (%) (Auto) 0 % (0-3) Neutrophils # (Auto) 12.4 x10^3uL (1.8-7.7) Lymphocytes # (Auto) 1.1 x10^3/uL (1.0-4.8) Monocytes # (Auto) 1.0 x10^3/uL (0.0-1.1) Eosinophils # (Auto) 0.1 x10^3/uL (0.0-0.7) Basophils # (Auto) 0.0 x10^3/uL (0.0-0.2) Sodium Level 140 mmol/L (136-145) Potassium Level 4.6 mmol/L (3.5-5.1) Chloride Level 104 mmol/L (98-107) Carbon Dioxide Level 30 mmol/L (21-32) Anion Gap 6 (6-14) Blood Urea Nitrogen 31 mg/dL (7-20) Creatinine 0.8 mg/dL (0.6-1.0) Estimated GFR (Cockcroft-Gault) 84.6 BUN/Creatinine Ratio 39 (6-20) Glucose Level 265 mg/dL (70-99) Calcium Level 9.4 mg/dL (8.5-10.1) Total Bilirubin 0.2 mg/dL (0.2-1.0) Aspartate Amino Transf (AST/SGOT) 24 U/L (15-37) Alanine Aminotransferase (ALT/SGPT) 23 U/L (14-59) Alkaline Phosphatase 58 U/L (46-116) Total Protein 6.3 g/dL (6.4-8.2) Albumin 2.3 g/dL (3.4-5.0) Albumin/Globulin Ratio 0.6 (1.0-1.7) Objective: Assessment: ? Sepsis,, normal lactic acid, BC neg Leukocytosis source intraabdominal S/P laparoscopic-assisted right colon resection and hemorrhoidectomy on 2018 for bleeding cecal ulcer and hemorrhoids; path negative for malignancy . Distention of small bowel likely representing obstruction. COPD Pneumonia sputum c/s nonrevealing Ileus Anemia Allergies to PCN Plan: Plan of Care will change cefepime to merrem for anaerobic coverage, has tolerated cefepime well awaiting abdo series f/u c/s and labs in am maintain aspiration D/w MICHAEL SHEIKH MD Dec 29, 2018 09:47
[2018-12-29] MEDS: CEFEPIME HCL IV Push 2 GM VIAL. IVP SCH (10:02)
[2018-12-29] MEDS: CHLORHEXIDINE 0.12% 15 ML MOUTHWASH. MM SCH ×2 (10:03→21:41)
[2018-12-29] MEDS: ENOXAPARIN 40 MG/0.4 ML SYRINGE. SQ SCH (10:03)
--- NOTE | 2018-12-29 10:34 | PDOC ---
PROGRESS NOTES Chief Complaint Chief Complaint Patient much more alert today compared to yesterday. Unclear the etiology of her transient episode reassurance has been provided not improved 12/28 await SBFT kub . No significant change in distended loops of bowel throughout the abdomen. 12/29 in process of small bowel follow-through to follow up History of Present Illness History of Present Illness Assessment/Plan 1. Acute hypoxic respiratory failure secondary to underlying chronic obstructive pulmonary disease and increasing abdominal distention related to ileus: continue supplemental 02. decompress bowel with NG tube to suction.. GI and Gen sx following. NPO status. PICC in place with TPN. 2. S/p right colon resection and hemorrhoidectomy secondary to bleeding cecal ulcer, path negative for malignancy . 3. Underlying COPD. bronchodilator therapy 4. VISHNU, resolving 5. Sepsis/Leukopenia. started cefepime. check cultures. apprec ID - unclear if there is actually a pneumonia, mostly atelectatic lungs 6. Gi bleed acute ,Questionable GI bleed with anemia marked anemia POA. hb stable Colonoscopy in 11/2017 showed diverticulosis, EGD 11/2018 showed non-erosive gastritis in process of small bowel follow-through to follow up on results Operative Note Date: 12/17/2018 Preoperative diagnosis: GI bleed cecal ulceration by colonoscopy with active bleeding hemorrhoids Postoperative diagnosis: Same Procedure: Laparoscopic-assisted right colon resection and hemorrhoidectomy Surgeon: Jan Specimen: Right colon and hemorrhoids Vitals Vitals Vital Signs Date Time Temp Pulse Resp B/P (MAP) Pulse Ox O2 Delivery O2 Flow Rate FiO2 12/29/18 07:18 90 Nasal Cannula 3.0 12/29/18 03:00 98.7 80 18 122/79 (93) 98.7 Physical Exam Physical Exam GENERAL: awake alert HEENT:no icterus, ngt + NECK: Supple LUNGS: Clear anteriorly HEART: S1, S2 ABDOMEN: Distended, soft, hypoactive BS. dressings dry EXTREMITIES: No edema or cyanosis. SKIN: No rash. Rectal wound clean NEUROLOGIC: alert awake Dunn in place RUE-PICC (12/23) clean General: Alert, Oriented X3, Cooperative, mild distress Heart: Regular rate, Normal S1, Normal S2, No murmurs Lungs: Clear Abdomen: Soft, Other (Mildly distended, Mild ttp NGT in place with bilious output) Extremities: No clubbing, No cyanosis, No edema Skin: No significant lesion Labs LABS AP abdomen radiograph 12/28/2018 CLINICAL HISTORY: Post NG tube placement. An AP erect portable digital radiograph of the abdomen was obtained. A NG tube is seen. The tip of this tube is coiled within the proximal stomach and overlies the gastric cardia. Air distention of small bowel loops is seen throughout the visualized portions of the abdomen. The abdominal bowel gas pattern is nonspecific. Pedicle screws and stabilizing rods overlie the mid and lower lumbar spine. Degenerative changes are seen involving lower thoracic and throughout the lumbar spine. Elevation of the left hemidiaphragm is noted. IMPRESSION: The tip of the NG tube overlies the gastric cardia. Electronically signed by: Ramos Swartz MD (12/28/2018 6:54 PM) [facility] Laboratory Tests Test 12/28/18 11:49 12/28/18 18:07 12/29/18 06:24 12/29/18 06:45 Glucose (Fingerstick) 231 mg/dL (70-99) 191 mg/dL (70-99) 227 mg/dL (70-99) White Blood Count 14.6 x10^3/uL (4.0-11.0) Red Blood Count 3.37 x10^6/uL (3.50-5.40) Hemoglobin 8.0 g/dL (12.0-15.5) Hematocrit 25.9 % (36.0-47.0) Mean Corpuscular Volume 77 fL (79-100) Mean Corpuscular Hemoglobin 24 pg (25-35) Mean Corpuscular Hemoglobin Concent 31 g/dL (31-37) Red Cell Distribution Width 23.6 % (11.5-14.5) Platelet Count 342 x10^3/uL (140-400) Neutrophils (%) (Auto) 85 % (31-73) Lymphocytes (%) (Auto) 8 % (24-48) Monocytes (%) (Auto) 7 % (0-9) Eosinophils (%) (Auto) 1 % (0-3) Basophils (%) (Auto) 0 % (0-3) Neutrophils # (Auto) 12.4 x10^3uL (1.8-7.7) Lymphocytes # (Auto) 1.1 x10^3/uL (1.0-4.8) Monocytes # (Auto) 1.0 x10^3/uL (0.0-1.1) Eosinophils # (Auto) 0.1 x10^3/uL (0.0-0.7) Basophils # (Auto) 0.0 x10^3/uL (0.0-0.2) Sodium Level 140 mmol/L (136-145) Potassium Level 4.6 mmol/L (3.5-5.1) Chloride Level 104 mmol/L (98-107) Carbon Dioxide Level 30 mmol/L (21-32) Anion Gap 6 (6-14) Blood Urea Nitrogen 31 mg/dL (7-20) Creatinine 0.8 mg/dL (0.6-1.0) Estimated GFR (Cockcroft-Gault) 84.6 BUN/Creatinine Ratio 39 (6-20) Glucose Level 265 mg/dL (70-99) Calcium Level 9.4 mg/dL (8.5-10.1) Total Bilirubin 0.2 mg/dL (0.2-1.0) Aspartate Amino Transf (AST/SGOT) 24 U/L (15-37) Alanine Aminotransferase (ALT/SGPT) 23 U/L (14-59) Alkaline Phosphatase 58 U/L (46-116) Total Protein 6.3 g/dL (6.4-8.2) Albumin 2.3 g/dL (3.4-5.0) Albumin/Globulin Ratio 0.6 (1.0-1.7) Comment Review of Relevant I have reviewed the following items abdifatah (where applicable) has been applied. Labs Laboratory Tests Test 12/27/18 12:19 12/27/18 18:27 12/28/18 00:29 12/28/18 06:10 Glucose (Fingerstick) 172 mg/dL (70-99) 183 mg/dL (70-99) 192 mg/dL (70-99) White Blood Count 14.2 x10^3/uL (4.0-11.0) Red Blood Count 3.38 x10^6/uL (3.50-5.40) Hemoglobin 8.1 g/dL (12.0-15.5) Hematocrit 26.0 % (36.0-47.0) Mean Corpuscular Volume 77 fL (79-100) Mean Corpuscular Hemoglobin 24 pg (25-35) Mean Corpuscular Hemoglobin Concent 31 g/dL (31-37) Red Cell Distribution Width 23.4 % (11.5-14.5) Platelet Count 301 x10^3/uL (140-400) Neutrophils (%) (Auto) 86 % (31-73) Lymphocytes (%) (Auto) 6 % (24-48) Monocytes (%) (Auto) 8 % (0-9) Eosinophils (%) (Auto) 0 % (0-3) Basophils (%) (Auto) 0 % (0-3) Neutrophils # (Auto) 12.2 x10^3uL (1.8-7.7) Lymphocytes # (Auto) 0.9 x10^3/uL (1.0-4.8) Monocytes # (Auto) 1.1 x10^3/uL (0.0-1.1) Eosinophils # (Auto) 0.1 x10^3/uL (0.0-0.7) Basophils # (Auto) 0.0 x10^3/uL (0.0-0.2) Segmented Neutrophils % 84 % (35-66) Lymphocytes % 11 % (24-48) Monocytes % 5 % (0-10) Platelet Estimate Adequate (ADEQUATE) Hypochromasia Slight Anisocytosis Mod Sodium Level 140 mmol/L (136-145) Potassium Level 4.6 mmol/L (3.5-5.1) Chloride Level 104 mmol/L (98-107) Carbon Dioxide Level 28 mmol/L (21-32) Anion Gap 8 (6-14) Blood Urea Nitrogen 31 mg/dL (7-20) Creatinine 0.7 mg/dL (0.6-1.0) Estimated GFR (Cockcroft-Gault) 98.7 Glucose Level 226 mg/dL (70-99) Calcium Level 9.1 mg/dL (8.5-10.1) Test 12/28/18 06:18 12/28/18 11:49 12/28/18 18:07 12/29/18 06:24 Glucose (Fingerstick) 208 mg/dL (70-99) 231 mg/dL (70-99) 191 mg/dL (70-99) 227 mg/dL (70-99) Test 12/29/18 06:45 White Blood Count 14.6 x10^3/uL (4.0-11.0) Red Blood Count 3.37 x10^6/uL (3.50-5.40) Hemoglobin 8.0 g/dL (12.0-15.5) Hematocrit 25.9 % (36.0-47.0) Mean Corpuscular Volume 77 fL (79-100) Mean Corpuscular Hemoglobin 24 pg (25-35) Mean Corpuscular Hemoglobin Concent 31 g/dL (31-37) Red Cell Distribution Width 23.6 % (11.5-14.5) Platelet Count 342 x10^3/uL (140-400) Neutrophils (%) (Auto) 85 % (31-73) Lymphocytes (%) (Auto) 8 % (24-48) Monocytes (%) (Auto) 7 % (0-9) Eosinophils (%) (Auto) 1 % (0-3) Basophils (%) (Auto) 0 % (0-3) Neutrophils # (Auto) 12.4 x10^3uL (1.8-7.7) Lymphocytes # (Auto) 1.1 x10^3/uL (1.0-4.8) Monocytes # (Auto) 1.0 x10^3/uL (0.0-1.1) Eosinophils # (Auto) 0.1 x10^3/uL (0.0-0.7) Basophils # (Auto) 0.0 x10^3/uL (0.0-0.2) Sodium Level 140 mmol/L (136-145) Potassium Level 4.6 mmol/L (3.5-5.1) Chloride Level 104 mmol/L (98-107) Carbon Dioxide Level 30 mmol/L (21-32) Anion Gap 6 (6-14) Blood Urea Nitrogen 31 mg/dL (7-20) Creatinine 0.8 mg/dL (0.6-1.0) Estimated GFR (Cockcroft-Gault) 84.6 BUN/Creatinine Ratio 39 (6-20) Glucose Level 265 mg/dL (70-99) Calcium Level 9.4 mg/dL (8.5-10.1) Total Bilirubin 0.2 mg/dL (0.2-1.0) Aspartate Amino Transf (AST/SGOT) 24 U/L (15-37) Alanine Aminotransferase (ALT/SGPT) 23 U/L (14-59) Alkaline Phosphatase 58 U/L (46-116) Total Protein 6.3 g/dL (6.4-8.2) Albumin 2.3 g/dL (3.4-5.0) Albumin/Globulin Ratio 0.6 (1.0-1.7) Laboratory Tests Test 12/28/18 11:49 12/28/18 18:07 12/29/18 06:24 12/29/18 06:45 Glucose (Fingerstick) 231 mg/dL (70-99) 191 mg/dL (70-99) 227 mg/dL (70-99) White Blood Count 14.6 x10^3/uL (4.0-11.0) Red Blood Count 3.37 x10^6/uL (3.50-5.40) Hemoglobin 8.0 g/dL (12.0-15.5) Hematocrit 25.9 % (36.0-47.0) Mean Corpuscular Volume 77 fL (79-100) Mean Corpuscular Hemoglobin 24 pg (25-35) Mean Corpuscular Hemoglobin Concent 31 g/dL (31-37) Red Cell Distribution Width 23.6 % (11.5-14.5) Platelet Count 342 x10^3/uL (140-400) Neutrophils (%) (Auto) 85 % (31-73) Lymphocytes (%) (Auto) 8 % (24-48) Monocytes (%) (Auto) 7 % (0-9) Eosinophils (%) (Auto) 1 % (0-3) Basophils (%) (Auto) 0 % (0-3) Neutrophils # (Auto) 12.4 x10^3uL (1.8-7.7) Lymphocytes # (Auto) 1.1 x10^3/uL (1.0-4.8) Monocytes # (Auto) 1.0 x10^3/uL (0.0-1.1) Eosinophils # (Auto) 0.1 x10^3/uL (0.0-0.7) Basophils # (Auto) 0.0 x10^3/uL (0.0-0.2) Sodium Level 140 mmol/L (136-145) Potassium Level 4.6 mmol/L (3.5-5.1) Chloride Level 104 mmol/L (98-107) Carbon Dioxide Level 30 mmol/L (21-32) Anion Gap 6 (6-14) Blood Urea Nitrogen 31 mg/dL (7-20) Creatinine 0.8 mg/dL (0.6-1.0) Estimated GFR (Cockcroft-Gault) 84.6 BUN/Creatinine Ratio 39 (6-20) Glucose Level 265 mg/dL (70-99) Calcium Level 9.4 mg/dL (8.5-10.1) Total Bilirubin 0.2 mg/dL (0.2-1.0) Aspartate Amino Transf (AST/SGOT) 24 U/L (15-37) Alanine Aminotransferase (ALT/SGPT) 23 U/L (14-59) Alkaline Phosphatase 58 U/L (46-116) Total Protein 6.3 g/dL (6.4-8.2) Albumin 2.3 g/dL (3.4-5.0) Albumin/Globulin Ratio 0.6 (1.0-1.7) Microbiology 12/21/18 Blood Culture - Final, Complete NO GROWTH AFTER 5 DAYS 12/25/18 - Final, Complete 12/25/18 - Final, Complete 12/25/18 - Final, Complete 12/25/18 - Final, Complete 12/25/18 Gram Stain Evaluation - Final, Complete 12/25/18 Sputum Culture - Final, Complete 12/25/18 Sputum Result 1 - Final, Complete Medications Current Medications Sodium Chloride 1,000 ml @ 1,000 mls/hr 1X ONCE IV Last administered on at 13:52; Start 12/14/18 at 13:30; Stop 12/14/18 at 14:29; Status DC Amlodipine Besylate (Norvasc) 10 mg DAILY PO Last administered on 12/26/18at 10: 01; Start 12/14/18 at 17:00 Chlorhexidine Gluconate (Peridex) 15 ml BID MM Last administered on 12/28/18at 21:05; Start 12/14/18 at 21:00 Non-Formulary Medication (Albuterol Sulfate (Ventolin Hfa Inhaler)) 2 puff Q4HRS INH ; Start 12/14/18 at 20:00; Status UNV Ascorbic Acid (Vitamin C) 500 mg DAILY PO Last administered on 12/22/18 10:30; Start 12/14/18 at 17:00 Duloxetine HCl (Cymbalta) 90 mg DAILY PO Last administered on 12/22/18 10:30; Start 12/14/18 at 17:00 Ferrous Sulfate (Feosol) 325 mg DAILYWBKFT PO Last administered on 12/22/18 10: 30; Start 12/14/18 at 17:00 Losartan Potassium (Cozaar) 100 mg DAILY PO Last administered on 12/22/18 10:29 ; Start 12/14/18 at 17:00 Memantine (Namenda) 10 mg BID PO Last administered on 12/26/18 21:25; Start at 21:00 Pantoprazole Sodium (Protonix) 40 mg DAILYAC PO Last administered on 12/22/18 05:28; Start 12/14/18 at 17:00; Stop 12/24/18 at 09:25; Status DC Ropinirole HCl (Requip) 3 mg QHS PO Last administered on 12/26/18 21:25; Start 12/14/18 at 21:00 Spironolactone (Aldactone) 25 mg DAILY PO Last administered on 12/26/18 10:42 ; Start 12/14/18 at 17:00 Albuterol Sulfate (Ventolin Neb Soln) 2.5 mg Q4HRS NEB Last administered on 07:17; Start 12/14/18 at 20:00 Sodium Chloride 1,000 ml @ 80 mls/hr [id number] IV Last administered on 12/23/18 15:25; Start 12/14/18 at 17:15; Stop 12/23/18 at 21:59; Status DC Acetaminophen (Tylenol) 650 mg PRN Q6HRS PRN PO Pain Last administered on 21:27; Start 12/15/18 at 04:45; Stop 12/26/18 at 21:07; Status DC Polyethylene Glycol (miraLAX Powder BULK BOTTLE) 238 gm 1X ONCE PO Last administered on 12/15/18 12:48; Start 12/15/18 at 12:00; Stop 12/15/18 at 12:01 ; Status DC Ondansetron HCl (Zofran) 4 mg PRN Q6HRS PRN IV NAUSEA/VOMITING; Start 12/16/18 at 07:00; Stop 12/17/18 at 06:59; Status DC Fentanyl Citrate (Fentanyl 2ml Vial) 25 mcg PRN Q5MIN PRN IV MILD PAIN; Start 12/16/18 at 07:00; Stop 12/16/18 at 16:33; Status DC Fentanyl Citrate (Fentanyl 2ml Vial) 50 mcg PRN Q5MIN PRN IV MODERATE TO SEVERE PAIN; Start 12/16/18 at 07:00; Stop 12/16/18 at 16:33; Status DC Morphine Sulfate (Morphine Sulfate) 1 mg PRN Q10MIN PRN IV SEVERE PAIN; Start 12/16/18 at 07:00; Stop 12/17/18 at 06:59; Status DC Ringer's Solution 1,000 ml @ 30 mls/hr Q24H IV Last administered on 12/16/18at 13:00; Start 12/16/18 at 07:00; Stop 12/16/18 at 18:59; Status DC Lidocaine HCl (Xylocaine-Mpf 1% 2ml Vial) 2 ml PRN 1X PRN ID IV START; Start at 07:00; Stop 12/17/18 at 06:59; Status DC Hydromorphone HCl (Dilaudid) 0.5 mg PRN Q10MIN PRN IV SEV PAIN, Second choice; Start 12/16/18 at 07:00; Stop 12/17/18 at 06:59; Status DC Prochlorperazine Edisylate (Compazine) 5 mg PACU PRN PRN IV NAUSEA, MRX1; Start 12/16/18 at 07:00; Stop 12/17/18 at 06:59; Status DC Midazolam HCl (Versed) 2 mg PRN 1X PRN IV PRIOR TO PROCEDURE; Start 12/16/18 at 07:15; Stop 12/17/18 at 07:14; Status DC Fentanyl Citrate (Fentanyl 2ml Vial) 25 mcg PRN Q5MIN PRN IV X 2 DOSES FOR PAIN ; Start 12/16/18 at 07:15; Stop 12/16/18 at 16:33; Status DC Fentanyl Citrate (Fentanyl 2ml Vial) 50 mcg PRN Q5MIN PRN IV X 2 DOSES FOR PAIN ; Start 12/16/18 at 07:15; Stop 12/16/18 at 16:34; Status DC Ringer's Solution 1,000 ml @ 125 mls/hr Q8H IV ; Start 12/16/18 at 07:13; Stop 12/16/18 at 19:12; Status DC Lidocaine HCl (Xylocaine-Mpf 1% 2ml Vial) 2 ml 1X PRN PRN ID IV START; Start at 07:15; Stop 12/17/18 at 07:14; Status DC Propofol 40 ml @ As Directed STK-MED ONCE IV ; Start 12/16/18 at 13:58; Stop at 14:00; Status DC Prochlorperazine Edisylate (Compazine) 5 mg PACU PRN PRN IV NAUSEA, MRX1; Start 12/17/18 at 07:00; Stop 12/18/18 at 06:59; Status DC Hydromorphone HCl (Dilaudid) 0.5 mg PRN Q10MIN PRN IV SEV PAIN, Second choice; Start 12/17/18 at 07:00; Stop 12/18/18 at 06:59; Status DC Lidocaine HCl (Xylocaine-Mpf 1% 2ml Vial) 2 ml PRN 1X PRN ID IV START; Start at 07:00; Stop 12/18/18 at 06:59; Status DC Ringer's Solution 1,000 ml @ 30 mls/hr Q24H IV Last administered on 12/17/18at 10:34; Start 12/17/18 at 07:00; Stop 12/17/18 at 18:59; Status DC Morphine Sulfate (Morphine Sulfate) 1 mg PRN Q10MIN PRN IV SEVERE PAIN; Start 12/17/18 at 07:00; Stop 12/18/18 at 06:59; Status DC Fentanyl Citrate (Fentanyl 2ml Vial) 50 mcg PRN Q5MIN PRN IV MODERATE TO SEVERE PAIN Last administered on 12/17/18at 11:13; Start 12/17/18 at 07:00; Stop at 06:59; Status DC Fentanyl Citrate (Fentanyl 2ml Vial) 25 mcg PRN Q5MIN PRN IV MILD PAIN; Start 12/17/18 at 07:00; Stop 12/18/18 at 06:59; Status DC Ondansetron HCl (Zofran) 4 mg PRN Q6HRS PRN IV NAUSEA/VOMITING; Start 12/17/18 at 07:00; Stop 12/18/18 at 06:59; Status DC Propofol 20 ml @ As Directed STK-MED ONCE IV ; Start 12/17/18 at 07:21; Stop 12/17 at 07:23; Status DC Albuterol Sulfate (Ventolin Neb Soln) 2.5 mg 1X ONCE NEB ; Start 12/17/18 at 07: 30; Stop 12/17/18 at 07:31; Status DC Lidocaine HCl (Lidocaine Pf 2% Vial) 5 ml STK-MED ONCE .ROUTE ; Start 12/17/18 at 07:21; Stop 12/17/18 at 07:23; Status DC Succinylcholine Chloride (Anectine) 200 mg STK-MED ONCE .ROUTE ; Start 12/17/18 at 07:21; Stop 12/17/18 at 07:23; Status DC Rocuronium [place] (Zemuron) 50 mg STK-MED ONCE .ROUTE ; Start 12/17/18 at 07:21 ; Stop 12/17/18 at 07:23; Status DC Fentanyl Citrate (Fentanyl 2ml Vial) 100 mcg STK-MED ONCE .ROUTE ; Start at 07:21; Stop 12/17/18 at 07:24; Status DC Cefazolin Sodium/ Dextrose 50 ml @ 100 mls/hr 1X ONCE IV Last administered on 12/17/18at 08:07; Start 12/17/18 at 07:45; Stop 12/17/18 at 08:18; Status DC Bupivacaine HCl/ Epinephrine Bitart (Sensorcain-Mpf Epi 0.5%-1:[id number]) 30 ml STK -MED ONCE .ROUTE Last administered on 12/17/18at 08:34; Start 12/17/18 at 07:46; Stop 12/17/18 at 07:49; Status DC Neomycin/ Polymyxin/ Bacitracin (Triple Antibiotic Ointment) 1 pkt STK-MED ONCE TP Last administered on 12/17/18at 10:07; Start 12/17/18 at 07:46; Stop 12/17/18 at 07:49; Status DC Neomycin/ Polymyxin/ Bacitracin (Triple Antibiotic Ointment) 1 pkt STK-MED ONCE TP Last administered on 12/17/18at 10:07; Start 12/17/18 at 07:46; Stop 12/17/18 at 07:49; Status DC Neomycin/ Polymyxin/ Bacitracin (Triple Antibiotic Ointment) 1 pkt STK-MED ONCE TP ; Start 12/17/18 at 07:47; Stop 12/17/18 at 07:49; Status DC Dexamethasone Sodium Phosphate (Decadron) 20 mg STK-MED ONCE .ROUTE ; Start 12/17 at 07:54; Stop 12/17/18 at 07:56; Status DC Hydrocortisone Sodium Succinate (Solu-CORTEF) 100 mg STK-MED ONCE .ROUTE ; Start 12/17/18 at 07:54; Stop 12/17/18 at 07:56; Status DC Desflurane (Suprane) 90 ml STK-MED ONCE IH ; Start 12/17/18 at 07:54; Stop at 07:56; Status DC Neostigmine Methylsulfate (Bloxiverz) 10 mg STK-MED ONCE .ROUTE ; Start 12/17/18 at 08:21; Stop 12/17/18 at 08:24; Status DC Glycopyrrolate (Robinul) 1 mg STK-MED ONCE .ROUTE ; Start 12/17/18 at 08:21; Stop 12/17/18 at 08:24; Status DC Phenylephrine HCl (Bogdan-Synephrine Inj) 10 mg STK-MED ONCE .ROUTE ; Start at 08:23; Stop 12/17/18 at 08:26; Status DC Desflurane (Suprane) 60 ml STK-MED ONCE IH ; Start 12/17/18 at 09:23; Stop at 09:26; Status DC Bupivacaine HCl/ Epinephrine Bitart (Sensorcain-Mpf Epi 0.5%-1:[id number]) 30 ml STK -MED ONCE .ROUTE Last administered on 12/17/18at 10:06; Start 12/17/18 at 09:41; Stop 12/17/18 at 09:43; Status DC Morphine Sulfate (Morphine Sulfate) 2 mg PRN Q2HR PRN IV PAIN Last administered on 12/25/18at 09:26; Start 12/17/18 at 10:15; Stop 12/25/18 at 17:54; Status DC Ketorolac Tromethamine (Toradol 15mg Vial) 15 mg Q6HRS IV Last administered on 12/18/18 05:39; Start 12/17/18 at 12:00; Stop 12/18/18 at 10:00; Status DC Artificial Tears (Artificial Tears) 1 drop PRN Q15MIN PRN OU DRY EYE Last administered on 12/20/18 21:28; Start 12/18/18 at 08:00 Docusate Sodium (Colace) 100 mg DAILY PO Last administered on 12/26/18 10:01; Start 12/18/18 at 10:00 Throat Lozenges (Cepacol Sore Throat Lozenge) 1 kristyn PRN Q2HRS PRN PO SORE THROAT Last administered on 12/26/18 10:01; Start 12/18/18 at 14:00 Enoxaparin Sodium (Lovenox 40mg Syringe) 40 mg Q24H SQ Last administered on 10:03; Start 12/19/18 at 09:00 Ondansetron HCl (Zofran) 4 mg PRN Q6HRS PRN IV NAUSEA/VOMITING Last administered on 12/29/18 10:02; Start 12/19/18 at 11:30 Insulin Human Lispro (HumaLOG) 0-5 UNITS TIDWMEALS SQ ; Start 12/19/18 at 17:00 Dextrose (Dextrose 50%-Water Syringe) 12.5 gm PRN Q15MIN PRN IV SEE COMMENTS; Start 12/19/18 at 16:45 Levofloxacin/ Dextrose 100 ml @ 100 mls/hr 1X ONCE IV Last administered on 20:56; Start 12/19/18 at 21:00; Stop 12/19/18 at 21:59; Status DC Cefepime HCl (Maxipime) 2 gm Q12HR IVP Last administered on 12/29/18 10:02; Start 12/21/18 at 10:00 Sodium Chloride 1,000 ml @ 125 mls/hr 1X ONCE IV Last administered on 10:43; Start 12/21/18 at 09:45; Stop 12/21/18 at 17:44; Status DC Calcium Carbonate/ Glycine (Tums) 500 mg PRN AFTMEALHC PRN PO INDIGESTION Last administered on 12/21/18 13:10; Start 12/21/18 at 12:15 Lorazepam (Ativan) 1 mg 1X ONCE IV Last administered on 12/21/18 17:50; Start 12/21/18 at 17:30; Stop 12/21/18 at 17:31; Status DC Albuterol Sulfate (Ventolin Neb Soln) 2.5 mg PRN Q2HRS PRN NEB SHORTNESS OF BREATH Last administered on 12/26/18 10:26; Start 12/21/18 at 17:30 Nicotine (Nicoderm Cq 14mg) 1 patch PRN DAILY PRN TD SMOKING CESSATION Last administered on 12/26/18 09:59; Start 12/21/18 at 19:30 Lorazepam (Ativan) 1 mg 1X ONCE IV Last administered on 12/21/18 23:45; Start 12/21/18 at 23:45; Stop 12/21/18 at 23:46; Status DC Lorazepam (Ativan) 1 mg PRN Q4HRS PRN IV ANXIETY / AGITATION Last administered on 12/22/18 11:15; Start 12/21/18 at 23:30; Stop 12/22/18 at 14:42; Status DC Sodium Chloride 1,000 ml @ 250 mls/hr 1X ONCE IV Last administered on 09:15; Start 12/22/18 at 09:15; Stop 12/22/18 at 13:14; Status DC Lidocaine/Sodium Bicarbonate (Buffered Lidocaine 1%) 3 ml STK-MED ONCE .ROUTE ; Start 12/23/18 at 10:33; Stop 12/23/18 at 10:35; Status DC Lidocaine/Sodium Bicarbonate (Buffered Lidocaine 1%) 3 ml 1X ONCE INJ Last administered on 12/23/18 11:24; Start 12/23/18 at 11:00; Stop 12/23/18 at 11:10; Status DC Info (Tpn Per Pharmacy) 1 each PRN DAILY PRN MC SEE COMMENTS Last administered on 12/28/18 14:15; Start 12/23/18 at 14:00 Sodium Chloride 90 meq/Potassium Chloride 50 meq/ Potassium Phosphate 20.4 mmol/ Magnesium Sulfate 18 meq/ Calcium Gluconate 5 meq/ Multivitamins 10 ml/Chromium / Copper/Manganese/ Seleni/Zn 1 ml/ Total Parenteral Nutrition/Amino Acids/ Dextrose/ Fat Emulsion Intravenous 1,512 ml @ 63 mls/hr TPN CONT IV Last administered on 12/23/18at 21:37; Start 12/23/18 at 22:00; Stop 12/24/18 at 21:59; Status DC Alprazolam (Xanax) 0.25 mg PRN BID PRN PO ANXIETY / AGITATION Last administered on 12/25/18at 09:25; Start 12/23/18 at 23:00; Stop 12/25/18 at 17:54; Status DC Lorazepam (Ativan) 1 mg PRN Q4HRS PRN IV ANXIETY / AGITATION Last administered on 12/24/18at 09:21; Start 12/24/18 at 08:45; Stop 12/24/18 at 10:19; Status DC Pantoprazole Sodium (PROTONIX VIAL for IV PUSH) 40 mg DAILYAC IVP Last administered on 12/29/18at 07:11; Start 12/24/18 at 09:30 Lorazepam (Ativan) 0.5 mg PRN Q4HRS PRN IV ANXIETY / AGITATION Last administered on 12/25/18at 04:47; Start 12/24/18 at 10:30; Stop 12/25/18 at 10:22; Status DC Sodium Chloride 45 meq/Sodium Acetate 45 meq/ Potassium Chloride 50 meq/ Potassium Phosphate 20.4 mmol/Magnesium Sulfate 18 meq/ Calcium Gluconate 5 meq / Multivitamins 10 ml/Chromium/ Copper/Manganese/ Seleni/Zn 1 ml/ Total Parenteral Nutrition/Amino Acids/Dextrose/ Fat Emuls... 1,512 ml @ 63 mls/hr TPN CONT IV Last administered on 12/24/18at 21:57; Start 12/24/18 at 22:00; Stop 12/25/18 at 21:59; Status DC Phenyleph/Shark Oil/Min Oil/Petrol (Preparation H) 1 ranjith PRN Q4HRS PRN RC RECTAL PAIN; Start 12/24/18 at 12:45; Stop 12/25/18 at 20:20; Status DC Sodium Chloride 45 meq/Sodium Acetate 45 meq/ Potassium Chloride 50 meq/ Potassium Phosphate 20.4 mmol/Magnesium Sulfate 18 meq/ Calcium Gluconate 5 meq / Multivitamins 10 ml/Chromium/ Copper/Manganese/ Seleni/Zn 1 ml/ Total Parenteral Nutrition/Amino Acids/Dextrose/ Fat Emuls... 1,512 ml @ 63 mls/hr TPN CONT IV Last administered on 12/26/18at 00:34; Start 12/25/18 at 22:00; Stop 12/26/18 at 21:59; Status DC Neomycin/ Polymyxin/ Bacitracin (Triple Antibiotic Ointment) 1 pkt PRN TID PRN TP skin around rectum, post op Last administered on 12/26/18 09:58; Start at 14:30 Alprazolam (Xanax) 0.25 mg PRN Q8HRS PRN PO ANXIETY / AGITATION Last administered on 12/28/18at 04:39; Start 12/25/18 at 18:00 Morphine Sulfate (Morphine Sulfate) 2 mg PRN Q6HRS PRN IV PAIN Last administered on 12/29/18 07:11; Start 12/25/18 at 18:00 Guaifenesin (Mucinex) 600 mg BID PO Last administered on 12/26/18 21:26; Start 12/26/18 at 11:00 Guaifenesin (Mucinex) 600 mg BID PO ; Start 12/26/18 at 11:00; Status UNV Guaifenesin/ Codeine Phosphate (Robitussin Ac) 5 ml PRN Q6HRS PRN PO COUGH Last administered on 12/26/18at 10:41; Start 12/26/18 at 10:30 Sodium Acetate 90 meq/Potassium Chloride 50 meq/ Potassium Phosphate 13.6 mmol/ Magnesium Sulfate 18 meq/ Calcium Gluconate 5 meq/ Multivitamins 10 ml/Chromium / Copper/Manganese/ Seleni/Zn 1 ml/ Total Parenteral Nutrition/Amino Acids/ Dextrose/ Fat Emulsion Intravenous 1,512 ml @ 63 mls/hr TPN CONT IV Last administered on 12/26/18at 21:37; Start 12/26/18 at 22:00; Stop 12/28/18 at 01:28 ; Status DC Benzocaine (Hurricaine One) 1 spray 1X ONCE MM ; Start 12/26/18 at 19:15; Stop 12/26/18 at 19:16; Status DC Acetaminophen (Tylenol) 650 mg PRN Q6HRS PRN PO MILD PAIN / TEMP Last administered on 12/27/18at 04:39; Start 12/26/18 at 21:00 Benzocaine (Hurricaine One) 1 spray 1X ONCE MM Last administered on 12/27/18at 09:00; Start 12/27/18 at 09:15; Stop 12/27/18 at 09:16; Status DC Sodium Acetate 90 meq/Potassium Chloride 50 meq/ Potassium Phosphate 13.6 mmol/ Magnesium Sulfate 15 meq/ Calcium Gluconate 5 meq/ Multivitamins 10 ml/Chromium / Copper/Manganese/ Seleni/Zn 1 ml/ Total Parenteral Nutrition/Amino Acids/ Dextrose/ Fat Emulsion Intravenous 1,512 ml @ 63 mls/hr TPN CONT IV ; Start at 22:00; Stop 12/28/18 at 21:59; Status Cancel Sodium Acetate 90 meq/Potassium Chloride 50 meq/ Potassium Phosphate 13.6 mmol/ Magnesium Sulfate 15 meq/ Calcium Gluconate 5 meq/ Multivitamins 10 ml/Chromium / Copper/Manganese/ Seleni/Zn 1 ml/ Total Parenteral Nutrition/Amino Acids/ Dextrose/ Fat Emulsion Intravenous 1,512 ml @ 63 mls/hr TPN CONT IV ; Start at 22:00; Stop 12/28/18 at 21:59; Status DC Lidocaine/Sodium Bicarbonate (Buffered Lidocaine 1%) 3 ml 1X ONCE INJ ; Start 12/28/18 at 09:00; Stop 12/28/18 at 09:01; Status Cancel Benzocaine (Hurricaine One) 1 spray 1X ONCE MM Last administered on 12/28/18at 09:32; Start 12/28/18 at 09:30; Stop 12/28/18 at 09:33; Status DC Sodium Acetate 90 meq/Potassium Chloride 50 meq/ Potassium Phosphate 13.6 mmol/ Magnesium Sulfate 15 meq/ Calcium Gluconate 5 meq/ Multivitamins 10 ml/Chromium / Copper/Manganese/ Seleni/Zn 1 ml/ Total Parenteral Nutrition/Amino Acids/ Dextrose/ Fat Emulsion Intravenous 1,512 ml @ 63 mls/hr TPN CONT IV Last administered on 12/28/18at 22:06; Start 12/28/18 at 22:00; Stop 12/29/18 at 21:59 Iohexol (Omnipaque 300 Mg/ml) 400 ml 1X ONCE PO Last administered on at 08:15; Start 12/29/18 at 06:45; Stop 12/29/18 at 06:46; Status DC Info (CONTRAST GIVEN -- Rx MONITORING) 1 each PRN DAILY PRN MC SEE COMMENTS; Start 12/29/18 at 06:45; Stop 12/31/18 at 06:44 Iohexol (Omnipaque 300 Mg/ml) 400 ml 1X ONCE PO ; Start 12/29/18 at 07:00; Stop 12/29/18 at 07:03; Status DC Info (CONTRAST GIVEN -- Rx MONITORING) 1 each PRN DAILY PRN MC SEE COMMENTS; Start 12/29/18 at 07:15; Stop 12/31/18 at 07:14 Active Scripts Active Chlorhexidine Gluconate 473 Ml Mouthwash 473 Ml MM BID 7 Days Vitamin C (Ascorbate Calcium) 500 Mg Tablet 500 Mg PO DAILY 30 Days Slow Release Iron (Ferrous Sulfate) 250 Mg Tablet.er 250 Mg PO DAILY 30 Days Protonix (Pantoprazole Sodium) 40 Mg Granpkt.dr 40 Mg PO DAILY 30 Days Reported Alprazolam 0.25 Mg Tablet 0.25 Mg PO DAILY Metformin Hcl Er (Metformin Hcl) 500 Mg Tab.er.24h 1 Tab PO DAILY Namenda (Memantine Hcl) 10 Mg Tablet 1 Tab PO BID Losartan Potassium 100 Mg Tablet 100 Mg PO DAILY Spironolactone 25 Mg Tablet 1 Tab PO DAILY Ventolin Hfa Inhaler (Albuterol Sulfate) 18 Gm Hfa.aer.ad 2 Puff INH Q4HRS Cymbalta (Duloxetine Hcl) 20 Mg Capsule.dr 90 Mg PO DAILY Requip (Ropinirole Hcl) 1 Mg Tablet 3 Mg PO DAILY Amlodipine Besylate 10 Mg Tablet 10 Mg PO DAILY Vitals/I & O Vital Sign - Last 24 Hours 12/28/18 12/28/18 12/28/18 12/28/18 10:56 11:00 14:48 15:00 Temp 97.7 97.4 97.7 97.4 Pulse 88 94 Resp 18 18 B/P (MAP) 103/69 (80) 110/70 (83) Pulse Ox 97 97 97 100 O2 Delivery Nasal Cannula Nasal Cannula Nasal Cannula Nasal Cannula O2 Flow Rate 3.0 3.0 3.0 3.0 2/12/19 12/28/18 12/28/18 12/28/18 15:37 19:00 19:15 19:55 Temp 98.6 98.6 Pulse 85 Resp 18 B/P (MAP) 117/73 (88) Pulse Ox 96 97 O2 Delivery Nasal Cannula Nasal Cannula Nasal Cannula Nasal Cannula O2 Flow Rate 3.0 3.0 3.0 3.0 12/28/18 12/28/18 12/28/18 12/28/18 22:17 22:47 23:00 23:35 Temp 99.7 99.7 Pulse 86 Resp 20 18 18 B/P (MAP) 131/74 (93) Pulse Ox 97 95 99 O2 Delivery Nasal Cannula Nasal Cannula Nasal Cannula Nasal Cannula O2 Flow Rate 3.0 3.0 3.0 3.0 12/29/18 12/29/18 12/29/18 12/29/18 03:00 03:58 07:11 07:18 Temp 98.7 98.7 Pulse 80 Resp 18 B/P (MAP) 122/79 (93) Pulse Ox 97 96 90 O2 Delivery Nasal Cannula Nasal Cannula Nasal Cannula Nasal Cannula O2 Flow Rate 3.0 3.0 3.0 3.0 Intake and Output 12/28/18 12/28/18 12/29/18 14:59 22:59 06:59 Intake Total 1205 ml Output Total 550 ml Balance -550 ml 1205 ml DAYLIN MILLER MD Dec 29, 2018 10:34
[2018-12-29 11:00] VITALS: BP 116/74
--- NOTE | 2018-12-29 11:07 | PDOC ---
SURGICAL PROGRESS NOTE Subjective Patient complaining more of feeling full and distended. NG tube is in place currently clamped for her small bowel follow-through. She denies passing any flatus or stool Vital Signs Vital Signs Date Time Temp Pulse Resp B/P (MAP) Pulse Ox O2 Delivery O2 Flow Rate FiO2 12/29/18 11:03 Nasal Cannula 3.0 12/29/18 07:18 90 12/29/18 03:00 98.7 80 18 122/79 (93) 98.7 I&O Intake and Output 12/29/18 06:59 Intake Total 1205 ml Output Total 550 ml Balance 655 ml Intake Oral 0 ml IV Total 445 ml Other 760 ml Gastric Drainage Total 550 ml # Voids 3 PATIENT HAS A PILLAI: No General: Alert, Oriented X3, Cooperative, mild distress Abdomen: Normal bowel sounds, Soft, Other (distended fully tender to palpation as are clean dry and intact) Labs Laboratory Tests Test 12/27/18 12:19 12/27/18 18:27 12/28/18 00:29 12/28/18 06:10 Glucose (Fingerstick) 172 mg/dL (70-99) 183 mg/dL (70-99) 192 mg/dL (70-99) White Blood Count 14.2 x10^3/uL (4.0-11.0) Red Blood Count 3.38 x10^6/uL (3.50-5.40) Hemoglobin 8.1 g/dL (12.0-15.5) Hematocrit 26.0 % (36.0-47.0) Mean Corpuscular Volume 77 fL (79-100) Mean Corpuscular Hemoglobin 24 pg (25-35) Mean Corpuscular Hemoglobin Concent 31 g/dL (31-37) Red Cell Distribution Width 23.4 % (11.5-14.5) Platelet Count 301 x10^3/uL (140-400) Neutrophils (%) (Auto) 86 % (31-73) Lymphocytes (%) (Auto) 6 % (24-48) Monocytes (%) (Auto) 8 % (0-9) Eosinophils (%) (Auto) 0 % (0-3) Basophils (%) (Auto) 0 % (0-3) Neutrophils # (Auto) 12.2 x10^3uL (1.8-7.7) Lymphocytes # (Auto) 0.9 x10^3/uL (1.0-4.8) Monocytes # (Auto) 1.1 x10^3/uL (0.0-1.1) Eosinophils # (Auto) 0.1 x10^3/uL (0.0-0.7) Basophils # (Auto) 0.0 x10^3/uL (0.0-0.2) Segmented Neutrophils % 84 % (35-66) Lymphocytes % 11 % (24-48) Monocytes % 5 % (0-10) Platelet Estimate Adequate (ADEQUATE) Hypochromasia Slight Anisocytosis Mod Sodium Level 140 mmol/L (136-145) Potassium Level 4.6 mmol/L (3.5-5.1) Chloride Level 104 mmol/L (98-107) Carbon Dioxide Level 28 mmol/L (21-32) Anion Gap 8 (6-14) Blood Urea Nitrogen 31 mg/dL (7-20) Creatinine 0.7 mg/dL (0.6-1.0) Estimated GFR (Cockcroft-Gault) 98.7 Glucose Level 226 mg/dL (70-99) Calcium Level 9.1 mg/dL (8.5-10.1) Test 12/28/18 06:18 12/28/18 11:49 12/28/18 18:07 12/29/18 06:24 Glucose (Fingerstick) 208 mg/dL (70-99) 231 mg/dL (70-99) 191 mg/dL (70-99) 227 mg/dL (70-99) Test 12/29/18 06:45 White Blood Count 14.6 x10^3/uL (4.0-11.0) Red Blood Count 3.37 x10^6/uL (3.50-5.40) Hemoglobin 8.0 g/dL (12.0-15.5) Hematocrit 25.9 % (36.0-47.0) Mean Corpuscular Volume 77 fL (79-100) Mean Corpuscular Hemoglobin 24 pg (25-35) Mean Corpuscular Hemoglobin Concent 31 g/dL (31-37) Red Cell Distribution Width 23.6 % (11.5-14.5) Platelet Count 342 x10^3/uL (140-400) Neutrophils (%) (Auto) 85 % (31-73) Lymphocytes (%) (Auto) 8 % (24-48) Monocytes (%) (Auto) 7 % (0-9) Eosinophils (%) (Auto) 1 % (0-3) Basophils (%) (Auto) 0 % (0-3) Neutrophils # (Auto) 12.4 x10^3uL (1.8-7.7) Lymphocytes # (Auto) 1.1 x10^3/uL (1.0-4.8) Monocytes # (Auto) 1.0 x10^3/uL (0.0-1.1) Eosinophils # (Auto) 0.1 x10^3/uL (0.0-0.7) Basophils # (Auto) 0.0 x10^3/uL (0.0-0.2) Sodium Level 140 mmol/L (136-145) Potassium Level 4.6 mmol/L (3.5-5.1) Chloride Level 104 mmol/L (98-107) Carbon Dioxide Level 30 mmol/L (21-32) Anion Gap 6 (6-14) Blood Urea Nitrogen 31 mg/dL (7-20) Creatinine 0.8 mg/dL (0.6-1.0) Estimated GFR (Cockcroft-Gault) 84.6 BUN/Creatinine Ratio 39 (6-20) Glucose Level 265 mg/dL (70-99) Calcium Level 9.4 mg/dL (8.5-10.1) Total Bilirubin 0.2 mg/dL (0.2-1.0) Aspartate Amino Transf (AST/SGOT) 24 U/L (15-37) Alanine Aminotransferase (ALT/SGPT) 23 U/L (14-59) Alkaline Phosphatase 58 U/L (46-116) Total Protein 6.3 g/dL (6.4-8.2) Albumin 2.3 g/dL (3.4-5.0) Albumin/Globulin Ratio 0.6 (1.0-1.7) Laboratory Tests Test 12/28/18 11:49 12/28/18 18:07 12/29/18 06:24 12/29/18 06:45 Glucose (Fingerstick) 231 mg/dL (70-99) 191 mg/dL (70-99) 227 mg/dL (70-99) White Blood Count 14.6 x10^3/uL (4.0-11.0) Red Blood Count 3.37 x10^6/uL (3.50-5.40) Hemoglobin 8.0 g/dL (12.0-15.5) Hematocrit 25.9 % (36.0-47.0) Mean Corpuscular Volume 77 fL (79-100) Mean Corpuscular Hemoglobin 24 pg (25-35) Mean Corpuscular Hemoglobin Concent 31 g/dL (31-37) Red Cell Distribution Width 23.6 % (11.5-14.5) Platelet Count 342 x10^3/uL (140-400) Neutrophils (%) (Auto) 85 % (31-73) Lymphocytes (%) (Auto) 8 % (24-48) Monocytes (%) (Auto) 7 % (0-9) Eosinophils (%) (Auto) 1 % (0-3) Basophils (%) (Auto) 0 % (0-3) Neutrophils # (Auto) 12.4 x10^3uL (1.8-7.7) Lymphocytes # (Auto) 1.1 x10^3/uL (1.0-4.8) Monocytes # (Auto) 1.0 x10^3/uL (0.0-1.1) Eosinophils # (Auto) 0.1 x10^3/uL (0.0-0.7) Basophils # (Auto) 0.0 x10^3/uL (0.0-0.2) Sodium Level 140 mmol/L (136-145) Potassium Level 4.6 mmol/L (3.5-5.1) Chloride Level 104 mmol/L (98-107) Carbon Dioxide Level 30 mmol/L (21-32) Anion Gap 6 (6-14) Blood Urea Nitrogen 31 mg/dL (7-20) Creatinine 0.8 mg/dL (0.6-1.0) Estimated GFR (Cockcroft-Gault) 84.6 BUN/Creatinine Ratio 39 (6-20) Glucose Level 265 mg/dL (70-99) Calcium Level 9.4 mg/dL (8.5-10.1) Total Bilirubin 0.2 mg/dL (0.2-1.0) Aspartate Amino Transf (AST/SGOT) 24 U/L (15-37) Alanine Aminotransferase (ALT/SGPT) 23 U/L (14-59) Alkaline Phosphatase 58 U/L (46-116) Total Protein 6.3 g/dL (6.4-8.2) Albumin 2.3 g/dL (3.4-5.0) Albumin/Globulin Ratio 0.6 (1.0-1.7) Assessment/Plan Status post right hemicolectomy with ileus versus small bowel obstruction in process of small bowel follow-through to follow up on results DAYLIN WEI MD Dec 29, 2018 11:07
--- NOTE | 2018-12-29 12:09 | NUR ---
SW following. Discussed with RN, RN advised pt is having an abdominal series today. SW will continue to follow.
[2018-12-29] MEDS: MEROPENEM 500 MG in IV NORMAL SALINE 50ML 50 ML IV SCH ×2 (12:22→17:59)
[2018-12-29] MEDS: TPN PER PHARMACY MC PRN (13:12)
--- NOTE | 2018-12-29 13:13 | NUR ---
Pharmacy TPN Dosing Note S: ELLE LATHAM is a 72 year old F Currently receiving Central Continuous TPN started 12/23/18 B:Pertinent PMH: SBO Height: 5 feet, 7 inches Weight: 85.723091 kg Current diet: npo LABS: Sodium: 140 Potassium: 4.6 Chloride: 104 Calcium: 9.4 Corrected Calcium: 10.68 Magnesium: 2.2 CO2: 30 SCr: 0.8 Glucose: 265 Albumin: 2.4 AST: 24 ALT: 23 TPN FORMULA: TPN TYPE: Central Continuous AMINO ACIDS: 85 gm DEXTROSE: 260 gm LIPIDS: 40 gm SODIUM CHLORIDE: - mEq SODIUM ACETATE: 90 mEq SODIUM PHOSPHATE: - mmol POTASSIUM CHLORIDE: 50 mEq POTASSIUM ACETATE: - mEq POTASSIUM PHOSPHATE: 13.6 mmol MAGNESIUM: 15 mEq CALCIUM: 5 mEq INSULIN: - units MULTIPLE VITAMIN: 10 ml TRACE ELEMENTS: mte5 1 ml ml(s) TPN PLAN: Labs WNL. Continue same TPN. R: Continue TPN as written above. Will monitor electrolytes, glucose, and tolerance to TPN. RO MATUTE [facility], 12/29/18 [id number]
[2018-12-29] MEDS: METHYL SALICYLATE/MENTHOL TOPICAL OINTMENT 29GM TUBE. TP PRN (14:40)
[2018-12-29 15:00] VITALS: BP 121/76
--- NOTE | 2018-12-29 18:00 | NUR ---
NGT clamped from 0740 until 1515. Pt taken for first part of small bowel series at 0740 and then NGT was clamped until Radiology staff called to notify that Radiologist had reviewed the images and it was okay to re-connect NGT to suction. Imaging will continue to be done today at 1800, 2200 and then tomorrow at 0600/0700. NGT to remain connected to suction unless ordered otherwise by Radiologist. Total gastric drainage output for this shift is 650 mL. Canister replaced.
[2018-12-29 19:00] VITALS: BP 127/76
[2018-12-29] MEDS: rOPINIRole 1 MG TABLET. PO SCH (21:42)
[2018-12-29] MEDS ORDERED: [UNRECOGNIZED DRUG - OTHER] IV SCH ×10 (22:00)
[2018-12-29] MEDS ORDERED: TOTAL PARENTERAL NUTRITION IV SCH ×10 (22:00)
[2018-12-29] MEDS ORDERED: DEXTROSE 70% IV SCH ×10 (22:00)
[2018-12-29] MEDS ORDERED: AMINO ACID IV SCH ×10 (22:00)
[2018-12-29 23:00] VITALS: BP 127/84
[2018-12-30] VITALS (14 sets, daily range): BP systolic 66–146; BP diastolic 46–87
[2018-12-30] MEDS: MEROPENEM 500 MG in IV NORMAL SALINE 50ML 50 ML IV SCH ×5 (00:38→23:46)
[2018-12-30] MEDS: ALBUTEROL SULFATE 2.5 MG/3 ML NEBU. NEB SCH ×6 (03:16→23:34)
[2018-12-30] MEDS: MORPHINE SULFATE 4 MG/ML VIAL. IV PRN ×3 (03:40→19:50)
[2018-12-30] MEDS: ONDANSETRON PF 4 MG/2 ML VIAL. IV PRN (03:43)
[2018-12-30 06:03] LABS: BASO # 0.1 x10^3/uL (0.0-0.2); BASO % 1 % (0-3); EOS # 0.1 x10^3/uL (0.0-0.7); EOS % 1 % (0-3); HEMATOCRIT 25.9 % (36.0-47.0); LYMPH # 1.2 x10^3/uL (1.0-4.8); LYMPH % 7 % (24-48); MEAN CORPUSCULAR HEMOGLOBIN 24 pg (25-35); MEAN CORPUSCULAR HGB CONC 31 g/dL (31-37); MEAN CORPUSCULAR VOLUME 76 fL (79-100); MONO % 6 % (0-9); NEUT # 13.8 x10^3uL (1.8-7.7); NEUT % 85 % (31-73); PLATELET COUNT 381 x10^3/uL (140-400); RED CELL DISTRIBUTION WIDTH 23.6 % (11.5-14.5); WHITE BLOOD COUNT 16.2 x10^3/uL (4.0-11.0)
[2018-12-30 06:24] LABS: ALBUMIN 2.3 g/dL (3.4-5.0); ALBUMIN/GLOBULIN RATIO 0.5 (1.0-1.7); CALCIUM 9.5 mg/dL (8.5-10.1); CREATININE 0.8 mg/dL (0.6-1.0); GFR 84.6; MAGNESIUM 2.1 mg/dL (1.8-2.4); PHOSPHORUS 4.2 mg/dL (2.6-4.7); POTASSIUM 4.5 mmol/L (3.5-5.1); TOTAL BILIRUBIN 0.2 mg/dL (0.2-1.0); TOTAL PROTEIN 6.7 g/dL (6.4-8.2)
[2018-12-30] MEDS: PANTOPRAZOLE IV PUSH 40 MG VIAL. IVP SCH (07:45)
[2018-12-30] MEDS: INSULIN LISPRO 300 UNITS/3 ML INSULN.PEN. SQ SCH ×3 (07:56→18:23)
[2018-12-30] MEDS: FERROUS SULFATE 325 MG TABLET. PO SCH (08:00)
--- NOTE | 2018-12-30 08:04 | RAD ---
Small bowel series, 12/29/2018: HISTORY: Obstruction versus ileus The preliminary abdominal image demonstrates moderate ongoing gaseous distention of multiple small bowel loops. There appears to be a small amount gas in the nondilated rectum and hepatic flexure of the colon. The tip of the NG tube extends into the proximal aspect of the stomach. Serial digital imaging was then performed following injection of nonionic contrast into the patient's NG tube. No fluoroscopy was performed. There is dilatation of the duodenum and more severe dilatation of the mid small bowel. There is delayed passage of the contrast in the small bowel. Imaging was performed out to 23 hours at which time there was persistent dilatation of multiple small loops. No definite extension of the contrast into the colon is seen. The appearance is that of high-grade distal small bowel obstruction. The point of obstruction is not clear on this study. IMPRESSION: High-grade distal small bowel obstruction Electronically signed by: Sedrick Pate MD (12/30/2018 8:01 AM) [facility]
--- NOTE | 2018-12-30 08:29 | PDOC ---
SURGICAL PROGRESS NOTE Subjective Not feeling well, no stool Vital Signs Vital Signs Date Time Temp Pulse Resp B/P (MAP) Pulse Ox O2 Delivery O2 Flow Rate FiO2 12/30/18 07:03 92 Nasal Cannula 3.0 12/30/18 03:00 98.7 97 18 146/87 (106) 98.7 I&O Intake and Output 12/30/18 07:00 Intake Total 0 ml Output Total 1650 ml Balance -1650 ml Intake Oral 0 ml Gastric Drainage Total 1650 ml # Voids 8 PATIENT HAS A PILLAI: No General: Alert, Oriented X3, Cooperative, moderate distress Abdomen: Soft, Other (distended, NGT with bilious output) Labs Laboratory Tests Test 12/28/18 11:49 12/28/18 18:07 12/29/18 06:24 12/29/18 06:45 Glucose (Fingerstick) 231 mg/dL (70-99) 191 mg/dL (70-99) 227 mg/dL (70-99) White Blood Count 14.6 x10^3/uL (4.0-11.0) Red Blood Count 3.37 x10^6/uL (3.50-5.40) Hemoglobin 8.0 g/dL (12.0-15.5) Hematocrit 25.9 % (36.0-47.0) Mean Corpuscular Volume 77 fL (79-100) Mean Corpuscular Hemoglobin 24 pg (25-35) Mean Corpuscular Hemoglobin Concent 31 g/dL (31-37) Red Cell Distribution Width 23.6 % (11.5-14.5) Platelet Count 342 x10^3/uL (140-400) Neutrophils (%) (Auto) 85 % (31-73) Lymphocytes (%) (Auto) 8 % (24-48) Monocytes (%) (Auto) 7 % (0-9) Eosinophils (%) (Auto) 1 % (0-3) Basophils (%) (Auto) 0 % (0-3) Neutrophils # (Auto) 12.4 x10^3uL (1.8-7.7) Lymphocytes # (Auto) 1.1 x10^3/uL (1.0-4.8) Monocytes # (Auto) 1.0 x10^3/uL (0.0-1.1) Eosinophils # (Auto) 0.1 x10^3/uL (0.0-0.7) Basophils # (Auto) 0.0 x10^3/uL (0.0-0.2) Sodium Level 140 mmol/L (136-145) Potassium Level 4.6 mmol/L (3.5-5.1) Chloride Level 104 mmol/L (98-107) Carbon Dioxide Level 30 mmol/L (21-32) Anion Gap 6 (6-14) Blood Urea Nitrogen 31 mg/dL (7-20) Creatinine 0.8 mg/dL (0.6-1.0) Estimated GFR (Cockcroft-Gault) 84.6 BUN/Creatinine Ratio 39 (6-20) Glucose Level 265 mg/dL (70-99) Calcium Level 9.4 mg/dL (8.5-10.1) Total Bilirubin 0.2 mg/dL (0.2-1.0) Aspartate Amino Transf (AST/SGOT) 24 U/L (15-37) Alanine Aminotransferase (ALT/SGPT) 23 U/L (14-59) Alkaline Phosphatase 58 U/L (46-116) Total Protein 6.3 g/dL (6.4-8.2) Albumin 2.3 g/dL (3.4-5.0) Albumin/Globulin Ratio 0.6 (1.0-1.7) Test 12/29/18 12:01 12/29/18 18:05 12/30/18 05:45 Glucose (Fingerstick) 251 mg/dL (70-99) 212 mg/dL (70-99) White Blood Count 16.2 x10^3/uL (4.0-11.0) Red Blood Count 3.40 x10^6/uL (3.50-5.40) Hemoglobin 8.0 g/dL (12.0-15.5) Hematocrit 25.9 % (36.0-47.0) Mean Corpuscular Volume 76 fL (79-100) Mean Corpuscular Hemoglobin 24 pg (25-35) Mean Corpuscular Hemoglobin Concent 31 g/dL (31-37) Red Cell Distribution Width 23.6 % (11.5-14.5) Platelet Count 381 x10^3/uL (140-400) Neutrophils (%) (Auto) 85 % (31-73) Lymphocytes (%) (Auto) 7 % (24-48) Monocytes (%) (Auto) 6 % (0-9) Eosinophils (%) (Auto) 1 % (0-3) Basophils (%) (Auto) 1 % (0-3) Neutrophils # (Auto) 13.8 x10^3uL (1.8-7.7) Lymphocytes # (Auto) 1.2 x10^3/uL (1.0-4.8) Monocytes # (Auto) 1.0 x10^3/uL (0.0-1.1) Eosinophils # (Auto) 0.1 x10^3/uL (0.0-0.7) Basophils # (Auto) 0.1 x10^3/uL (0.0-0.2) Sodium Level 142 mmol/L (136-145) Potassium Level 4.5 mmol/L (3.5-5.1) Chloride Level 104 mmol/L (98-107) Carbon Dioxide Level 33 mmol/L (21-32) Anion Gap 5 (6-14) Blood Urea Nitrogen 33 mg/dL (7-20) Creatinine 0.8 mg/dL (0.6-1.0) Estimated GFR (Cockcroft-Gault) 84.6 BUN/Creatinine Ratio 41 (6-20) Glucose Level 260 mg/dL (70-99) Calcium Level 9.5 mg/dL (8.5-10.1) Phosphorus Level 4.2 mg/dL (2.6-4.7) Magnesium Level 2.1 mg/dL (1.8-2.4) Total Bilirubin 0.2 mg/dL (0.2-1.0) Aspartate Amino Transf (AST/SGOT) 26 U/L (15-37) Alanine Aminotransferase (ALT/SGPT) 22 U/L (14-59) Alkaline Phosphatase 70 U/L (46-116) Total Protein 6.7 g/dL (6.4-8.2) Albumin 2.3 g/dL (3.4-5.0) Albumin/Globulin Ratio 0.5 (1.0-1.7) Laboratory Tests Test 12/29/18 12:01 12/29/18 18:05 12/30/18 05:45 Glucose (Fingerstick) 251 mg/dL (70-99) 212 mg/dL (70-99) White Blood Count 16.2 x10^3/uL (4.0-11.0) Red Blood Count 3.40 x10^6/uL (3.50-5.40) Hemoglobin 8.0 g/dL (12.0-15.5) Hematocrit 25.9 % (36.0-47.0) Mean Corpuscular Volume 76 fL (79-100) Mean Corpuscular Hemoglobin 24 pg (25-35) Mean Corpuscular Hemoglobin Concent 31 g/dL (31-37) Red Cell Distribution Width 23.6 % (11.5-14.5) Platelet Count 381 x10^3/uL (140-400) Neutrophils (%) (Auto) 85 % (31-73) Lymphocytes (%) (Auto) 7 % (24-48) Monocytes (%) (Auto) 6 % (0-9) Eosinophils (%) (Auto) 1 % (0-3) Basophils (%) (Auto) 1 % (0-3) Neutrophils # (Auto) 13.8 x10^3uL (1.8-7.7) Lymphocytes # (Auto) 1.2 x10^3/uL (1.0-4.8) Monocytes # (Auto) 1.0 x10^3/uL (0.0-1.1) Eosinophils # (Auto) 0.1 x10^3/uL (0.0-0.7) Basophils # (Auto) 0.1 x10^3/uL (0.0-0.2) Sodium Level 142 mmol/L (136-145) Potassium Level 4.5 mmol/L (3.5-5.1) Chloride Level 104 mmol/L (98-107) Carbon Dioxide Level 33 mmol/L (21-32) Anion Gap 5 (6-14) Blood Urea Nitrogen 33 mg/dL (7-20) Creatinine 0.8 mg/dL (0.6-1.0) Estimated GFR (Cockcroft-Gault) 84.6 BUN/Creatinine Ratio 41 (6-20) Glucose Level 260 mg/dL (70-99) Calcium Level 9.5 mg/dL (8.5-10.1) Phosphorus Level 4.2 mg/dL (2.6-4.7) Magnesium Level 2.1 mg/dL (1.8-2.4) Total Bilirubin 0.2 mg/dL (0.2-1.0) Aspartate Amino Transf (AST/SGOT) 26 U/L (15-37) Alanine Aminotransferase (ALT/SGPT) 22 U/L (14-59) Alkaline Phosphatase 70 U/L (46-116) Total Protein 6.7 g/dL (6.4-8.2) Albumin 2.3 g/dL (3.4-5.0) Albumin/Globulin Ratio 0.5 (1.0-1.7) I have reviewed the following SBFT contrast in the small bowel suggestive of high grade obstruction Assessment/Plan Small bowel obstruction, plan on xlap to relieve obstruction today Discussed with the patient and her family, discussed risk of bleeding infection and respiratory complications. DAYLIN WEI MD Dec 30, 2018 08:29
--- NOTE | 2018-12-30 08:34 | PDOC ---
Infectious Disease Note Subjective: Subjective Pt cont to have abdo distention awaiting ex lap some sob some nausea ,no vomiting wbc 16k d/w RN ROS: ROS Negative except for above. Vital Signs: Vital Signs Vital Signs Date Time Temp Pulse Resp B/P (MAP) Pulse Ox O2 Delivery O2 Flow Rate FiO2 12/30/18 07:03 92 Nasal Cannula 3.0 12/30/18 03:00 98.7 97 18 146/87 (106) 98.7 Physical Exam: PHYSICAL EXAM GENERAL: awake alert HEENT:no icterus, ngt + NECK: Supple LUNGS: Clear anteriorly HEART: S1, S2 ABDOMEN: Distended, soft, hypoactive BS. dressings dry EXTREMITIES: No edema or cyanosis. SKIN: No rash. Rectal wound clean NEUROLOGIC: alert awake Dunn in place RUE-PICC (12/23) clean Medications: Inpatient Meds: Current Medications Medications (Trade) Dose Ordered Sig/Buffy Start Time Stop Time Status Last Admin Dose Admin Acetaminophen (Tylenol) 650 mg PRN Q6HRS PRN 12/26/18 21:00 12/27/18 04:39 650 MG Albuterol Sulfate (Ventolin Neb Soln) 2.5 mg PRN Q2HRS PRN 12/21/18 17:30 12/26/18 10:26 2.5 MG Alprazolam (Xanax) 0.25 mg PRN Q8HRS PRN 12/25/18 18:00 12/28/18 04:39 0.25 MG Amlodipine Besylate (Norvasc) 10 mg DAILY 12/14/18 17:00 12/26/18 10:01 10 MG Artificial Tears (Artificial Tears) 1 drop PRN Q15MIN PRN 12/18/18 08:00 12/20/18 21:28 1 DROP Ascorbic Acid (Vitamin C) 500 mg DAILY 12/14/18 17:00 12/22/18 10:30 500 MG Benzocaine (Hurricaine One) 1 spray 1X ONCE 12/28/18 09:30 12/28/18 09:33 DC 12/28/18 09:32 1 SPRAY Bupivacaine HCl/ Epinephrine Bitart (Sensorcain-Mpf Epi 0.5%-1:[id number]) 30 ml STK-MED ONCE 12/17/18 09:41 12/17/18 09:43 DC 12/17/18 10:06 19 ML Calcium Carbonate/ Glycine (Tums) 500 mg PRN AFTMEALHC PRN 12/21/18 12:15 12/21/18 13:10 500 MG Cefazolin Sodium/ Dextrose 50 ml @ 100 mls/hr 1X ONCE 12/17/18 07:45 12/17/18 08:18 DC 12/17/18 08:07 100 MLS/HR Cefepime HCl (Maxipime) 2 gm Q12HR 12/21/18 10:00 12/29/18 10:37 DC 12/29/18 10:02 2 GM Chlorhexidine Gluconate (Peridex) 15 ml BID 12/14/18 21:00 12/29/18 21:41 15 ML Desflurane (Suprane) 60 ml STK-MED ONCE 12/17/18 09:23 12/17/18 09:26 DC Dexamethasone Sodium Phosphate (Decadron) 20 mg STK-MED ONCE 12/17/18 07:54 12/17/18 07:56 DC Dextrose (Dextrose 50%-Water Syringe) 12.5 gm PRN Q15MIN PRN 12/19/18 16:45 Docusate Sodium (Colace) 100 mg DAILY 12/18/18 10:00 12/26/18 10:01 100 MG Duloxetine HCl (Cymbalta) 90 mg DAILY 12/14/18 17:00 12/22/18 10:30 90 MG Enoxaparin Sodium (Lovenox 40mg Syringe) 40 mg Q24H 12/19/18 09:00 12/29/18 10:03 40 MG Fentanyl Citrate (Fentanyl 2ml Vial) 100 mcg STK-MED ONCE 12/17/18 07:21 12/17/18 07:24 DC Ferrous Sulfate (Feosol) 325 mg DAILYWBKFT 12/14/18 17:00 12/22/18 10:30 325 MG Glycopyrrolate (Robinul) 1 mg STK-MED ONCE 12/17/18 08:21 12/17/18 08:24 DC Guaifenesin (Mucinex) 600 mg BID 12/26/18 11:00 UNV Guaifenesin/ Codeine Phosphate (Robitussin Ac) 5 ml PRN Q6HRS PRN 12/26/18 10:30 12/26/18 10:41 5 ML Hydrocortisone Sodium Succinate (Solu-CORTEF) 100 mg STK-MED ONCE 12/17/18 07:54 12/17/18 07:56 DC Hydromorphone HCl (Dilaudid) 0.5 mg PRN Q10MIN PRN 12/17/18 07:00 12/18/18 06:59 DC Info (CONTRAST GIVEN -- Rx MONITORING) 1 each PRN DAILY PRN 12/29/18 07:15 12/31/18 07:14 Info (Tpn Per Pharmacy) 1 each PRN DAILY PRN 12/23/18 14:00 12/29/18 13:12 1 EACH Insulin Human Lispro (HumaLOG) 0-5 UNITS TIDWMEALS 12/19/18 17:00 12/30/18 07:56 2 UNITS Iohexol (Omnipaque 300 Mg/ml) 400 ml 1X ONCE 12/29/18 07:00 12/29/18 07:03 DC Ketorolac Tromethamine (Toradol 15mg Vial) 15 mg Q6HRS 12/17/18 12:00 12/18/18 10:00 DC 12/18/18 05:39 15 MG Levofloxacin/ Dextrose 100 ml @ 100 mls/hr 1X ONCE 12/19/18 21:00 12/19/18 21:59 DC 12/19/18 20:56 100 MLS/HR Lidocaine HCl (Lidocaine Pf 2% Vial) 5 ml STK-MED ONCE 12/17/18 07:21 12/17/18 07:23 DC Lidocaine HCl (Xylocaine-Mpf 1% 2ml Vial) 2 ml PRN 1X PRN 12/17/18 07:00 12/18/18 06:59 DC Lidocaine/Sodium Bicarbonate (Buffered Lidocaine 1%) 3 ml 1X ONCE 12/28/18 09:00 12/28/18 09:01 Cancel Lorazepam (Ativan) 0.5 mg PRN Q4HRS PRN 12/24/18 10:30 12/25/18 10:22 DC 12/25/18 04:47 0.5 MG Losartan Potassium (Cozaar) 100 mg DAILY 12/14/18 17:00 12/22/18 10:29 100 MG Memantine (Namenda) 10 mg BID 12/14/18 21:00 12/26/18 21:25 10 MG Meropenem 500 mg/ Sodium Chloride 50 ml @ 100 mls/hr Q6HRS 12/29/18 12:00 12/30/18 05:51 100 MLS/HR Midazolam HCl (Versed) 2 mg PRN 1X PRN 12/16/18 07:15 12/17/18 07:14 DC Morphine Sulfate (Morphine Sulfate) 2 mg PRN Q4HRS PRN 12/30/18 03:30 12/30/18 03:40 2 MG Multi-Ingredient Ointment (Analgesic [place]vine) 1 ranjith PRN QID PRN 12/29/18 13:00 12/29/18 14:40 1 RANJITH Neomycin/ Polymyxin/ Bacitracin (Triple Antibiotic Ointment) 1 pkt PRN TID PRN 12/25/18 14:30 12/26/18 09:58 1 PKT Neostigmine Methylsulfate (Bloxiverz) 10 mg STK-MED ONCE 12/17/18 08:21 12/17/18 08:24 DC Nicotine (Nicoderm Cq 14mg) 1 patch PRN DAILY PRN 12/21/18 19:30 12/26/18 09:59 1 PATCH Non-Formulary Medication (Albuterol Sulfate (Ventolin Hfa Inhaler)) 2 puff Q4HRS 12/14/18 20:00 UNV Ondansetron HCl (Zofran) 4 mg PRN Q6HRS PRN 12/19/18 11:30 12/30/18 03:43 4 MG Pantoprazole Sodium (PROTONIX VIAL for IV PUSH) 40 mg DAILYAC 12/24/18 09:30 12/30/18 07:45 40 MG Pantoprazole Sodium (Protonix) 40 mg DAILYAC 12/14/18 17:00 12/24/18 09:25 DC 12/22/18 05:28 40 MG Phenyleph/Shark Oil/Min Oil/Petrol (Preparation H) 1 ranjith PRN Q4HRS PRN 12/24/18 12:45 12/25/18 20:20 DC Phenylephrine HCl (Bogdan-Synephrine Inj) 10 mg STK-MED ONCE 12/17/18 08:23 12/17/18 08:26 DC Polyethylene Glycol (miraLAX Powder BULK BOTTLE) 238 gm 1X ONCE 12/15/18 12:00 12/15/18 12:01 DC 12/15/18 12:48 238 GM Prochlorperazine Edisylate (Compazine) 5 mg PACU PRN PRN 12/17/18 07:00 12/18/18 06:59 DC Propofol 20 ml @ As Directed STK-MED ONCE 12/17/18 07:21 12/17/18 07:23 DC Ringer's Solution 1,000 ml @ 30 mls/hr Q24H 12/17/18 07:00 12/17/18 18:59 DC 12/17/18 10:34 30 MLS/HR Rocuronium Quincy (Zemuron) 50 mg STK-MED ONCE 12/17/18 07:21 12/17/18 07:23 DC Ropinirole HCl (Requip) 3 mg QHS 12/14/18 21:00 12/26/18 21:25 3 MG Sodium Acetate 90 meq/Potassium Chloride 50 meq/ Potassium Phosphate 13.6 mmol/Magnesium Sulfate 15 meq/ Calcium Gluconate 5 meq/ Multivitamins 10 ml/Chromium/ Copper/Manganese/ Seleni/Zn 1 ml/ Total Parenteral Nutrition/Amino Acids/Dextrose/ Fat Emulsion Intravenous 1,512 ml @ 63 mls/hr TPN CONT 12/29/18 22:00 12/30/18 21:59 12/29/18 21:40 63 MLS/HR Sodium Acetate 90 meq/Potassium Chloride 50 meq/ Potassium Phosphate 13.6 mmol/Magnesium Sulfate 18 meq/ Calcium Gluconate 5 meq/ Multivitamins 10 ml/Chromium/ Copper/Manganese/ Seleni/Zn 1 ml/ Total Parenteral Nutrition/Amino Acids/Dextrose/ Fat Emulsion Intravenous 1,512 ml @ 63 mls/hr TPN CONT 12/26/18 22:00 12/28/18 01:28 DC 12/26/18 21:37 63 MLS/HR Sodium Chloride 45 meq/Sodium Acetate 45 meq/ Potassium Chloride 50 meq/ Potassium Phosphate 20.4 mmol/Magnesium Sulfate 18 meq/ Calcium Gluconate 5 meq/ Multivitamins 10 ml/Chromium/ Copper/Manganese/ Seleni/Zn 1 ml/ Total Parenteral Nutrition/Amino Acids/Dextrose/ Fat Emuls... 1,512 ml @ 63 mls/hr TPN CONT 12/25/18 22:00 12/26/18 21:59 DC 12/26/18 00:34 63 MLS/HR Sodium Chloride 90 meq/Potassium Chloride 50 meq/ Potassium Phosphate 20.4 mmol/Magnesium Sulfate 18 meq/ Calcium Gluconate 5 meq/ Multivitamins 10 ml/Chromium/ Copper/Manganese/ Seleni/Zn 1 ml/ Total Parenteral Nutrition/Amino Acids/Dextrose/ Fat Emulsion Intravenous 1,512 ml @ 63 mls/hr TPN CONT 12/23/18 22:00 12/24/18 21:59 DC 12/23/18 21:37 63 MLS/HR Spironolactone (Aldactone) 25 mg DAILY 12/14/18 17:00 12/26/18 10:42 25 MG Succinylcholine Chloride (Anectine) 200 mg STK-MED ONCE 12/17/18 07:21 12/17/18 07:23 DC Throat Lozenges (Cepacol Sore Throat Lozenge) 1 stella PRN Q2HRS PRN 12/18/18 14:00 12/26/18 10:01 1 STELLA Labs: Lab Laboratory Tests Test 12/29/18 12:01 12/29/18 18:05 12/30/18 05:45 Glucose (Fingerstick) 251 mg/dL (70-99) 212 mg/dL (70-99) White Blood Count 16.2 x10^3/uL (4.0-11.0) Red Blood Count 3.40 x10^6/uL (3.50-5.40) Hemoglobin 8.0 g/dL (12.0-15.5) Hematocrit 25.9 % (36.0-47.0) Mean Corpuscular Volume 76 fL (79-100) Mean Corpuscular Hemoglobin 24 pg (25-35) Mean Corpuscular Hemoglobin Concent 31 g/dL (31-37) Red Cell Distribution Width 23.6 % (11.5-14.5) Platelet Count 381 x10^3/uL (140-400) Neutrophils (%) (Auto) 85 % (31-73) Lymphocytes (%) (Auto) 7 % (24-48) Monocytes (%) (Auto) 6 % (0-9) Eosinophils (%) (Auto) 1 % (0-3) Basophils (%) (Auto) 1 % (0-3) Neutrophils # (Auto) 13.8 x10^3uL (1.8-7.7) Lymphocytes # (Auto) 1.2 x10^3/uL (1.0-4.8) Monocytes # (Auto) 1.0 x10^3/uL (0.0-1.1) Eosinophils # (Auto) 0.1 x10^3/uL (0.0-0.7) Basophils # (Auto) 0.1 x10^3/uL (0.0-0.2) Sodium Level 142 mmol/L (136-145) Potassium Level 4.5 mmol/L (3.5-5.1) Chloride Level 104 mmol/L (98-107) Carbon Dioxide Level 33 mmol/L (21-32) Anion Gap 5 (6-14) Blood Urea Nitrogen 33 mg/dL (7-20) Creatinine 0.8 mg/dL (0.6-1.0) Estimated GFR (Cockcroft-Gault) 84.6 BUN/Creatinine Ratio 41 (6-20) Glucose Level 260 mg/dL (70-99) Calcium Level 9.5 mg/dL (8.5-10.1) Phosphorus Level 4.2 mg/dL (2.6-4.7) Magnesium Level 2.1 mg/dL (1.8-2.4) Total Bilirubin 0.2 mg/dL (0.2-1.0) Aspartate Amino Transf (AST/SGOT) 26 U/L (15-37) Alanine Aminotransferase (ALT/SGPT) 22 U/L (14-59) Alkaline Phosphatase 70 U/L (46-116) Total Protein 6.7 g/dL (6.4-8.2) Albumin 2.3 g/dL (3.4-5.0) Albumin/Globulin Ratio 0.5 (1.0-1.7) Objective: Assessment: Leukocytosis source intraabdominal from bowel obstruction S/P laparoscopic-assisted right colon resection and hemorrhoidectomy on 2018 for bleeding cecal ulcer and hemorrhoids; path negative for malignancy . Distention of small bowel likely representing obstruction. COPD Pneumonia sputum c/s nonrevealing Ileus Anemia Allergies to PCN Plan: Plan of Care cont merrem awaiting ex lap today f/u c/s and labs in am maintain aspiration cont supportive care D/w MICHAEL SHEIKH MD Dec 30, 2018 08:34
--- NOTE | 2018-12-30 08:44 | RAD ---
Portable chest, 12/30/2018: HISTORY: Cough, respiratory failure Comparison is made to a study from 12/26/2018. A right PICC extends into the superior vena cava. The heart size and pulmonary vascularity are normal. There is mild unchanged elevation of the left hemidiaphragm with underlying mild left basilar atelectasis and/or scarring. The right lung is clear. There is no evidence of pleural fluid. No new abnormality is seen. Distended bowel loops are again noted in the upper abdomen. IMPRESSION: No significant change since 12/26/2018. Electronically signed by: Sedrick Pate MD (12/30/2018 8:41 AM) [facility]
[2018-12-30] MEDS: DULoxetine HCL 30 MG CAPSULE.DR PO SCH (08:46)
[2018-12-30] MEDS: SPIRONOLACTONE 25 MG TABLET PO SCH (08:46)
[2018-12-30] MEDS: DOCUSATE SODIUM 100 MG CAPSULE. PO SCH (08:46)
[2018-12-30] MEDS: LOSARTAN POTASSIUM 50 MG TABLET. PO SCH (08:46)
[2018-12-30] MEDS: CHLORHEXIDINE 0.12% 15 ML MOUTHWASH. MM SCH ×2 (08:46→21:00)
[2018-12-30] MEDS: MEMANTINE 10 MG TABLET. PO SCH ×2 (08:47→21:00)
[2018-12-30] MEDS: ASCORBIC ACID 500 MG TABLET PO SCH (08:47)
[2018-12-30] MEDS: amLODIPine BESYLATE 10 MG TABLET PO SCH (08:47)
[2018-12-30] MEDS: ENOXAPARIN 40 MG/0.4 ML SYRINGE. SQ SCH (08:47)
[2018-12-30 08:58] LABS: BILIRUBIN,URINE NEGATIVE (NEG); CLARITY,URINE CLEAR; COLOR,URINE YELLOW; NITRITE,URINE NEGATIVE (NEG); PH,URINE 5.5; PROTEIN,URINE 30 mg/dL (NEG-TRACE); UROBILINOGEN,URINE 0.2 mg/dL (0.2 mg/dL)
--- NOTE | 2018-12-30 09:00 | NUR ---
Sangita held. Pt scheduled for surgery this afternoon.
--- NOTE | 2018-12-30 09:21 | PDOC ---
PULMONARY PROGRESS NOTES Subjective PT NOT MORE SOA NG IN PLACE FEELS BETTER Vitals Vital Signs Date Time Temp Pulse Resp B/P (MAP) Pulse Ox O2 Delivery O2 Flow Rate FiO2 12/30/18 07:03 92 Nasal Cannula 3.0 12/30/18 03:00 98.7 97 18 146/87 (106) 98.7 General: Alert, No acute distress Lungs: Clear Cardiovascular: S1 Abdomen: Soft, Other (distended) Extremities: No Edema Skin: Warm Labs Laboratory Tests Test 12/28/18 11:49 12/28/18 18:07 12/29/18 06:24 12/29/18 06:45 Glucose (Fingerstick) 231 mg/dL (70-99) 191 mg/dL (70-99) 227 mg/dL (70-99) White Blood Count 14.6 x10^3/uL (4.0-11.0) Red Blood Count 3.37 x10^6/uL (3.50-5.40) Hemoglobin 8.0 g/dL (12.0-15.5) Hematocrit 25.9 % (36.0-47.0) Mean Corpuscular Volume 77 fL (79-100) Mean Corpuscular Hemoglobin 24 pg (25-35) Mean Corpuscular Hemoglobin Concent 31 g/dL (31-37) Red Cell Distribution Width 23.6 % (11.5-14.5) Platelet Count 342 x10^3/uL (140-400) Neutrophils (%) (Auto) 85 % (31-73) Lymphocytes (%) (Auto) 8 % (24-48) Monocytes (%) (Auto) 7 % (0-9) Eosinophils (%) (Auto) 1 % (0-3) Basophils (%) (Auto) 0 % (0-3) Neutrophils # (Auto) 12.4 x10^3uL (1.8-7.7) Lymphocytes # (Auto) 1.1 x10^3/uL (1.0-4.8) Monocytes # (Auto) 1.0 x10^3/uL (0.0-1.1) Eosinophils # (Auto) 0.1 x10^3/uL (0.0-0.7) Basophils # (Auto) 0.0 x10^3/uL (0.0-0.2) Sodium Level 140 mmol/L (136-145) Potassium Level 4.6 mmol/L (3.5-5.1) Chloride Level 104 mmol/L (98-107) Carbon Dioxide Level 30 mmol/L (21-32) Anion Gap 6 (6-14) Blood Urea Nitrogen 31 mg/dL (7-20) Creatinine 0.8 mg/dL (0.6-1.0) Estimated GFR (Cockcroft-Gault) 84.6 BUN/Creatinine Ratio 39 (6-20) Glucose Level 265 mg/dL (70-99) Calcium Level 9.4 mg/dL (8.5-10.1) Total Bilirubin 0.2 mg/dL (0.2-1.0) Aspartate Amino Transf (AST/SGOT) 24 U/L (15-37) Alanine Aminotransferase (ALT/SGPT) 23 U/L (14-59) Alkaline Phosphatase 58 U/L (46-116) Total Protein 6.3 g/dL (6.4-8.2) Albumin 2.3 g/dL (3.4-5.0) Albumin/Globulin Ratio 0.6 (1.0-1.7) Test 12/29/18 12:01 12/29/18 18:05 12/30/18 05:45 Glucose (Fingerstick) 251 mg/dL (70-99) 212 mg/dL (70-99) White Blood Count 16.2 x10^3/uL (4.0-11.0) Red Blood Count 3.40 x10^6/uL (3.50-5.40) Hemoglobin 8.0 g/dL (12.0-15.5) Hematocrit 25.9 % (36.0-47.0) Mean Corpuscular Volume 76 fL (79-100) Mean Corpuscular Hemoglobin 24 pg (25-35) Mean Corpuscular Hemoglobin Concent 31 g/dL (31-37) Red Cell Distribution Width 23.6 % (11.5-14.5) Platelet Count 381 x10^3/uL (140-400) Neutrophils (%) (Auto) 85 % (31-73) Lymphocytes (%) (Auto) 7 % (24-48) Monocytes (%) (Auto) 6 % (0-9) Eosinophils (%) (Auto) 1 % (0-3) Basophils (%) (Auto) 1 % (0-3) Neutrophils # (Auto) 13.8 x10^3uL (1.8-7.7) Lymphocytes # (Auto) 1.2 x10^3/uL (1.0-4.8) Monocytes # (Auto) 1.0 x10^3/uL (0.0-1.1) Eosinophils # (Auto) 0.1 x10^3/uL (0.0-0.7) Basophils # (Auto) 0.1 x10^3/uL (0.0-0.2) Sodium Level 142 mmol/L (136-145) Potassium Level 4.5 mmol/L (3.5-5.1) Chloride Level 104 mmol/L (98-107) Carbon Dioxide Level 33 mmol/L (21-32) Anion Gap 5 (6-14) Blood Urea Nitrogen 33 mg/dL (7-20) Creatinine 0.8 mg/dL (0.6-1.0) Estimated GFR (Cockcroft-Gault) 84.6 BUN/Creatinine Ratio 41 (6-20) Glucose Level 260 mg/dL (70-99) Calcium Level 9.5 mg/dL (8.5-10.1) Phosphorus Level 4.2 mg/dL (2.6-4.7) Magnesium Level 2.1 mg/dL (1.8-2.4) Total Bilirubin 0.2 mg/dL (0.2-1.0) Aspartate Amino Transf (AST/SGOT) 26 U/L (15-37) Alanine Aminotransferase (ALT/SGPT) 22 U/L (14-59) Alkaline Phosphatase 70 U/L (46-116) Total Protein 6.7 g/dL (6.4-8.2) Albumin 2.3 g/dL (3.4-5.0) Albumin/Globulin Ratio 0.5 (1.0-1.7) Laboratory Tests Test 12/29/18 12:01 12/29/18 18:05 12/30/18 05:45 Glucose (Fingerstick) 251 mg/dL (70-99) 212 mg/dL (70-99) White Blood Count 16.2 x10^3/uL (4.0-11.0) Red Blood Count 3.40 x10^6/uL (3.50-5.40) Hemoglobin 8.0 g/dL (12.0-15.5) Hematocrit 25.9 % (36.0-47.0) Mean Corpuscular Volume 76 fL (79-100) Mean Corpuscular Hemoglobin 24 pg (25-35) Mean Corpuscular Hemoglobin Concent 31 g/dL (31-37) Red Cell Distribution Width 23.6 % (11.5-14.5) Platelet Count 381 x10^3/uL (140-400) Neutrophils (%) (Auto) 85 % (31-73) Lymphocytes (%) (Auto) 7 % (24-48) Monocytes (%) (Auto) 6 % (0-9) Eosinophils (%) (Auto) 1 % (0-3) Basophils (%) (Auto) 1 % (0-3) Neutrophils # (Auto) 13.8 x10^3uL (1.8-7.7) Lymphocytes # (Auto) 1.2 x10^3/uL (1.0-4.8) Monocytes # (Auto) 1.0 x10^3/uL (0.0-1.1) Eosinophils # (Auto) 0.1 x10^3/uL (0.0-0.7) Basophils # (Auto) 0.1 x10^3/uL (0.0-0.2) Sodium Level 142 mmol/L (136-145) Potassium Level 4.5 mmol/L (3.5-5.1) Chloride Level 104 mmol/L (98-107) Carbon Dioxide Level 33 mmol/L (21-32) Anion Gap 5 (6-14) Blood Urea Nitrogen 33 mg/dL (7-20) Creatinine 0.8 mg/dL (0.6-1.0) Estimated GFR (Cockcroft-Gault) 84.6 BUN/Creatinine Ratio 41 (6-20) Glucose Level 260 mg/dL (70-99) Calcium Level 9.5 mg/dL (8.5-10.1) Phosphorus Level 4.2 mg/dL (2.6-4.7) Magnesium Level 2.1 mg/dL (1.8-2.4) Total Bilirubin 0.2 mg/dL (0.2-1.0) Aspartate Amino Transf (AST/SGOT) 26 U/L (15-37) Alanine Aminotransferase (ALT/SGPT) 22 U/L (14-59) Alkaline Phosphatase 70 U/L (46-116) Total Protein 6.7 g/dL (6.4-8.2) Albumin 2.3 g/dL (3.4-5.0) Albumin/Globulin Ratio 0.5 (1.0-1.7) Medications Active Scripts Medications Dose Route/Sig Max Daily Dose Days Date Category Chlorhexidine Gluconate 473 Ml Mouthwash 473 Ml MM BID 7 12/10/18 Rx Vitamin C (Ascorbate Calcium) 500 Mg Tablet 500 Mg PO DAILY 30 11/22/18 Rx Slow Release Iron (Ferrous Sulfate) 250 Mg Tablet.er 250 Mg PO DAILY 30 11/22/18 Rx Protonix (Pantoprazole Sodium) 40 Mg Granpkt.dr 40 Mg PO DAILY 30 11/22/18 Rx Metformin Hcl Er (Metformin Hcl) 500 Mg Tab.er.24h 1 Tab PO DAILY 11/12/16 Reported Namenda (Memantine Hcl) 10 Mg Tablet 1 Tab PO BID 11/12/16 Reported Losartan Potassium 100 Mg Tablet 100 Mg PO DAILY 11/12/16 Reported Spironolactone 25 Mg Tablet 1 Tab PO DAILY 11/12/16 Reported Ventolin Hfa Inhaler (Albuterol Sulfate) 18 Gm Hfa.aer.ad 2 Puff INH Q4HRS 11/11/16 Reported Cymbalta (Duloxetine Hcl) 20 Mg Capsule.dr 90 Mg PO DAILY 01/27/16 Reported Requip (Ropinirole Hcl) 1 Mg Tablet 3 Mg PO DAILY 01/27/16 Reported Amlodipine Besylate 10 Mg Tablet 10 Mg PO DAILY 01/27/16 Reported Impression . 1. Acute hypoxic respiratory failure secondary to underlying chronic obstructive pulmonary disease and increasing abdominal distention 2. Gastrointestinal bleed/cecal ulceration by colonoscopy, status post laparoscopic-assisted right colon resection and hemorrhoidectomy. 3. ileus. 4. Underlying chronic obstructive pulmonary disease. 5. Abnormal CT chest with focal opacity in the right upper lobe, could be nodule/ATELECTASIS Plan . CXR IN AM CONTINUE SUPPORT NG ASPIRATE PER SURGEON IS NEBS FOLLOW UP CT IN 4 MONTHS MARIA ALEJANDRA VALENTINE MD Dec 30, 2018 09:21
[2018-12-30 09:25] LABS: BACTERIA,URINE FEW /HPF (0-FEW); RBC,URINE OCC /HPF (0-2); SQUAMOUS EPITHELIAL CELL,UR MANY /LPF
[2018-12-30 09:26] LABS: AMORPHOUS SEDIMENT,UR PRESENT /HPF
--- NOTE | 2018-12-30 10:27 | PDOC ---
PROGRESS NOTES Chief Complaint Chief Complaint Patient much more alert today compared to yesterday. Unclear the etiology of her transient episode reassurance has been provided not improved 12/28 await SBFT kub 122. No significant change in distended loops of bowel throughout the abdomen. 12/29 in process of small bowel follow-through to follow up 12/30 High-grade distal small bowel obstruction on SBF TO OR TODAY History of Present Illness History of Present Illness Assessment/Plan 1. Acute hypoxic respiratory failure secondary to underlying chronic obstructive pulmonary disease and increasing abdominal distention related to ileus: continue supplemental 02. decompress bowel with NG tube to suction.. GI and Gen sx following. NPO status. PICC in place with TPN. 2. S/p right colon resection and hemorrhoidectomy secondary to bleeding cecal ulcer, path negative for malignancy . 3. Underlying COPD. bronchodilator therapy 4. VISHNU, resolving 5. Sepsis/Leukopenia. started cefepime. check cultures. apprec ID - unclear if there is actually a pneumonia, mostly atelectatic lungs 6. Gi bleed acute ,Questionable GI bleed with anemia marked anemia POA. hb stable Colonoscopy in 11/2017 showed diverticulosis, EGD 11/2018 showed non-erosive gastritis in process of small bowel follow-through to follow up on results Operative Note Date: 12/17/2018 Preoperative diagnosis: GI bleed cecal ulceration by colonoscopy with active bleeding hemorrhoids Postoperative diagnosis: Same Procedure: Laparoscopic-assisted right colon resection and hemorrhoidectomy Surgeon: Jan Specimen: Right colon and hemorrhoids Vitals Vitals Vital Signs Date Time Temp Pulse Resp B/P (MAP) Pulse Ox O2 Delivery O2 Flow Rate FiO2 12/30/18 09:52 Nasal Cannula 3.0 12/30/18 07:03 92 12/30/18 07:00 98.0 89 16 111/78 (89) 98.0 Physical Exam Physical Exam GENERAL: awake alert HEENT:no icterus, ngt + NECK: Supple LUNGS: Clear anteriorly HEART: S1, S2 ABDOMEN: Distended, soft, hypoactive BS. dressings dry EXTREMITIES: No edema or cyanosis. SKIN: No rash. Rectal wound clean NEUROLOGIC: alert awake Dunn in place RUE-PICC (12/23) clean General: Alert, Oriented X3, Cooperative, moderate distress Heart: Regular rate, Normal S1, Normal S2, No murmurs Lungs: Clear Abdomen: Soft, Other (distended, NGT with bilious output) Extremities: No clubbing, No cyanosis, No edema Skin: No significant lesion Labs LABS STATUS: ADM IN ORD. PHYSICIAN: DAYLIN WEI MD REASON: Illeus vs obstruction, Use Gastrografin PROCEDURE: SMALL BOWEL SERIES Small bowel series, 12/29/2018: HISTORY: Obstruction versus ileus The preliminary abdominal image demonstrates moderate ongoing gaseous distention of multiple small bowel loops. There appears to be a small amount gas in the nondilated rectum and hepatic flexure of the colon. The tip of the NG tube extends into the proximal aspect of the stomach. Serial digital imaging was then performed following injection of nonionic contrast into the patient's NG tube. No fluoroscopy was performed. There is dilatation of the duodenum and more severe dilatation of the mid small bowel. There is delayed passage of the contrast in the small bowel. Imaging was performed out to 23 hours at which time there was persistent dilatation of multiple small loops. No definite extension of the contrast into the colon is seen. The appearance is that of high-grade distal small bowel obstruction. The point of obstruction is not clear on this study. IMPRESSION: High-grade distal small bowel obstruction Electronically signed by: Sedrick Pate MD (12/30/2018 8:01 AM) [facility] Laboratory Tests Test 12/29/18 12:01 12/29/18 18:05 12/30/18 05:45 12/30/18 08:20 Glucose (Fingerstick) 251 mg/dL (70-99) 212 mg/dL (70-99) White Blood Count 16.2 x10^3/uL (4.0-11.0) Red Blood Count 3.40 x10^6/uL (3.50-5.40) Hemoglobin 8.0 g/dL (12.0-15.5) Hematocrit 25.9 % (36.0-47.0) Mean Corpuscular Volume 76 fL (79-100) Mean Corpuscular Hemoglobin 24 pg (25-35) Mean Corpuscular Hemoglobin Concent 31 g/dL (31-37) Red Cell Distribution Width 23.6 % (11.5-14.5) Platelet Count 381 x10^3/uL (140-400) Neutrophils (%) (Auto) 85 % (31-73) Lymphocytes (%) (Auto) 7 % (24-48) Monocytes (%) (Auto) 6 % (0-9) Eosinophils (%) (Auto) 1 % (0-3) Basophils (%) (Auto) 1 % (0-3) Neutrophils # (Auto) 13.8 x10^3uL (1.8-7.7) Lymphocytes # (Auto) 1.2 x10^3/uL (1.0-4.8) Monocytes # (Auto) 1.0 x10^3/uL (0.0-1.1) Eosinophils # (Auto) 0.1 x10^3/uL (0.0-0.7) Basophils # (Auto) 0.1 x10^3/uL (0.0-0.2) Sodium Level 142 mmol/L (136-145) Potassium Level 4.5 mmol/L (3.5-5.1) Chloride Level 104 mmol/L (98-107) Carbon Dioxide Level 33 mmol/L (21-32) Anion Gap 5 (6-14) Blood Urea Nitrogen 33 mg/dL (7-20) Creatinine 0.8 mg/dL (0.6-1.0) Estimated GFR (Cockcroft-Gault) 84.6 BUN/Creatinine Ratio 41 (6-20) Glucose Level 260 mg/dL (70-99) Calcium Level 9.5 mg/dL (8.5-10.1) Phosphorus Level 4.2 mg/dL (2.6-4.7) Magnesium Level 2.1 mg/dL (1.8-2.4) Total Bilirubin 0.2 mg/dL (0.2-1.0) Aspartate Amino Transf (AST/SGOT) 26 U/L (15-37) Alanine Aminotransferase (ALT/SGPT) 22 U/L (14-59) Alkaline Phosphatase 70 U/L (46-116) Total Protein 6.7 g/dL (6.4-8.2) Albumin 2.3 g/dL (3.4-5.0) Albumin/Globulin Ratio 0.5 (1.0-1.7) Urine Collection Type U cath Urine Color Yellow Urine Clarity Clear Urine pH 5.5 Urine Specific [place] >=1.030 Urine Protein 30 mg/dL (NEG-TRACE) Urine Glucose (UA) 500 mg/dL (NEG) Urine Ketones (Stick) Negative mg/dL (NEG) Urine Blood Negative (NEG) Urine Nitrite Negative (NEG) Urine Bilirubin Negative (NEG) Urine Urobilinogen Dipstick 0.2 mg/dL (0.2 mg/dL) Urine Leukocyte Esterase Negative (NEG) Urine RBC Occ /HPF (0-2) Urine WBC 1-4 /HPF (0-4) Urine Squamous Epithelial Cells Many /LPF Urine Amorphous Sediment Present /HPF Urine Bacteria Few /HPF (0-FEW) Urine Mucus Slight /LPF Comment Review of Relevant I have reviewed the following items abdifatah (where applicable) has been applied. Labs Laboratory Tests Test 12/28/18 11:49 12/28/18 18:07 12/29/18 06:24 12/29/18 06:45 Glucose (Fingerstick) 231 mg/dL (70-99) 191 mg/dL (70-99) 227 mg/dL (70-99) White Blood Count 14.6 x10^3/uL (4.0-11.0) Red Blood Count 3.37 x10^6/uL (3.50-5.40) Hemoglobin 8.0 g/dL (12.0-15.5) Hematocrit 25.9 % (36.0-47.0) Mean Corpuscular Volume 77 fL (79-100) Mean Corpuscular Hemoglobin 24 pg (25-35) Mean Corpuscular Hemoglobin Concent 31 g/dL (31-37) Red Cell Distribution Width 23.6 % (11.5-14.5) Platelet Count 342 x10^3/uL (140-400) Neutrophils (%) (Auto) 85 % (31-73) Lymphocytes (%) (Auto) 8 % (24-48) Monocytes (%) (Auto) 7 % (0-9) Eosinophils (%) (Auto) 1 % (0-3) Basophils (%) (Auto) 0 % (0-3) Neutrophils # (Auto) 12.4 x10^3uL (1.8-7.7) Lymphocytes # (Auto) 1.1 x10^3/uL (1.0-4.8) Monocytes # (Auto) 1.0 x10^3/uL (0.0-1.1) Eosinophils # (Auto) 0.1 x10^3/uL (0.0-0.7) Basophils # (Auto) 0.0 x10^3/uL (0.0-0.2) Sodium Level 140 mmol/L (136-145) Potassium Level 4.6 mmol/L (3.5-5.1) Chloride Level 104 mmol/L (98-107) Carbon Dioxide Level 30 mmol/L (21-32) Anion Gap 6 (6-14) Blood Urea Nitrogen 31 mg/dL (7-20) Creatinine 0.8 mg/dL (0.6-1.0) Estimated GFR (Cockcroft-Gault) 84.6 BUN/Creatinine Ratio 39 (6-20) Glucose Level 265 mg/dL (70-99) Calcium Level 9.4 mg/dL (8.5-10.1) Total Bilirubin 0.2 mg/dL (0.2-1.0) Aspartate Amino Transf (AST/SGOT) 24 U/L (15-37) Alanine Aminotransferase (ALT/SGPT) 23 U/L (14-59) Alkaline Phosphatase 58 U/L (46-116) Total Protein 6.3 g/dL (6.4-8.2) Albumin 2.3 g/dL (3.4-5.0) Albumin/Globulin Ratio 0.6 (1.0-1.7) Test 12/29/18 12:01 12/29/18 18:05 12/30/18 05:45 12/30/18 08:20 Glucose (Fingerstick) 251 mg/dL (70-99) 212 mg/dL (70-99) White Blood Count 16.2 x10^3/uL (4.0-11.0) Red Blood Count 3.40 x10^6/uL (3.50-5.40) Hemoglobin 8.0 g/dL (12.0-15.5) Hematocrit 25.9 % (36.0-47.0) Mean Corpuscular Volume 76 fL (79-100) Mean Corpuscular Hemoglobin 24 pg (25-35) Mean Corpuscular Hemoglobin Concent 31 g/dL (31-37) Red Cell Distribution Width 23.6 % (11.5-14.5) Platelet Count 381 x10^3/uL (140-400) Neutrophils (%) (Auto) 85 % (31-73) Lymphocytes (%) (Auto) 7 % (24-48) Monocytes (%) (Auto) 6 % (0-9) Eosinophils (%) (Auto) 1 % (0-3) Basophils (%) (Auto) 1 % (0-3) Neutrophils # (Auto) 13.8 x10^3uL (1.8-7.7) Lymphocytes # (Auto) 1.2 x10^3/uL (1.0-4.8) Monocytes # (Auto) 1.0 x10^3/uL (0.0-1.1) Eosinophils # (Auto) 0.1 x10^3/uL (0.0-0.7) Basophils # (Auto) 0.1 x10^3/uL (0.0-0.2) Sodium Level 142 mmol/L (136-145) Potassium Level 4.5 mmol/L (3.5-5.1) Chloride Level 104 mmol/L (98-107) Carbon Dioxide Level 33 mmol/L (21-32) Anion Gap 5 (6-14) Blood Urea Nitrogen 33 mg/dL (7-20) Creatinine 0.8 mg/dL (0.6-1.0) Estimated GFR (Cockcroft-Gault) 84.6 BUN/Creatinine Ratio 41 (6-20) Glucose Level 260 mg/dL (70-99) Calcium Level 9.5 mg/dL (8.5-10.1) Phosphorus Level 4.2 mg/dL (2.6-4.7) Magnesium Level 2.1 mg/dL (1.8-2.4) Total Bilirubin 0.2 mg/dL (0.2-1.0) Aspartate Amino Transf (AST/SGOT) 26 U/L (15-37) Alanine Aminotransferase (ALT/SGPT) 22 U/L (14-59) Alkaline Phosphatase 70 U/L (46-116) Total Protein 6.7 g/dL (6.4-8.2) Albumin 2.3 g/dL (3.4-5.0) Albumin/Globulin Ratio 0.5 (1.0-1.7) Urine Collection Type U cath Urine Color Yellow Urine Clarity Clear Urine pH 5.5 Urine Specific [place] >=1.030 Urine Protein 30 mg/dL (NEG-TRACE) Urine Glucose (UA) 500 mg/dL (NEG) Urine Ketones (Stick) Negative mg/dL (NEG) Urine Blood Negative (NEG) Urine Nitrite Negative (NEG) Urine Bilirubin Negative (NEG) Urine Urobilinogen Dipstick 0.2 mg/dL (0.2 mg/dL) Urine Leukocyte Esterase Negative (NEG) Urine RBC Occ /HPF (0-2) Urine WBC 1-4 /HPF (0-4) Urine Squamous Epithelial Cells Many /LPF Urine Amorphous Sediment Present /HPF Urine Bacteria Few /HPF (0-FEW) Urine Mucus Slight /LPF Laboratory Tests Test 12/29/18 12:01 12/29/18 18:05 12/30/18 05:45 12/30/18 08:20 Glucose (Fingerstick) 251 mg/dL (70-99) 212 mg/dL (70-99) White Blood Count 16.2 x10^3/uL (4.0-11.0) Red Blood Count 3.40 x10^6/uL (3.50-5.40) Hemoglobin 8.0 g/dL (12.0-15.5) Hematocrit 25.9 % (36.0-47.0) Mean Corpuscular Volume 76 fL (79-100) Mean Corpuscular Hemoglobin 24 pg (25-35) Mean Corpuscular Hemoglobin Concent 31 g/dL (31-37) Red Cell Distribution Width 23.6 % (11.5-14.5) Platelet Count 381 x10^3/uL (140-400) Neutrophils (%) (Auto) 85 % (31-73) Lymphocytes (%) (Auto) 7 % (24-48) Monocytes (%) (Auto) 6 % (0-9) Eosinophils (%) (Auto) 1 % (0-3) Basophils (%) (Auto) 1 % (0-3) Neutrophils # (Auto) 13.8 x10^3uL (1.8-7.7) Lymphocytes # (Auto) 1.2 x10^3/uL (1.0-4.8) Monocytes # (Auto) 1.0 x10^3/uL (0.0-1.1) Eosinophils # (Auto) 0.1 x10^3/uL (0.0-0.7) Basophils # (Auto) 0.1 x10^3/uL (0.0-0.2) Sodium Level 142 mmol/L (136-145) Potassium Level 4.5 mmol/L (3.5-5.1) Chloride Level 104 mmol/L (98-107) Carbon Dioxide Level 33 mmol/L (21-32) Anion Gap 5 (6-14) Blood Urea Nitrogen 33 mg/dL (7-20) Creatinine 0.8 mg/dL (0.6-1.0) Estimated GFR (Cockcroft-Gault) 84.6 BUN/Creatinine Ratio 41 (6-20) Glucose Level 260 mg/dL (70-99) Calcium Level 9.5 mg/dL (8.5-10.1) Phosphorus Level 4.2 mg/dL (2.6-4.7) Magnesium Level 2.1 mg/dL (1.8-2.4) Total Bilirubin 0.2 mg/dL (0.2-1.0) Aspartate Amino Transf (AST/SGOT) 26 U/L (15-37) Alanine Aminotransferase (ALT/SGPT) 22 U/L (14-59) Alkaline Phosphatase 70 U/L (46-116) Total Protein 6.7 g/dL (6.4-8.2) Albumin 2.3 g/dL (3.4-5.0) Albumin/Globulin Ratio 0.5 (1.0-1.7) Urine Collection Type U cath Urine Color Yellow Urine Clarity Clear Urine pH 5.5 Urine Specific [place] >=1.030 Urine Protein 30 mg/dL (NEG-TRACE) Urine Glucose (UA) 500 mg/dL (NEG) Urine Ketones (Stick) Negative mg/dL (NEG) Urine Blood Negative (NEG) Urine Nitrite Negative (NEG) Urine Bilirubin Negative (NEG) Urine Urobilinogen Dipstick 0.2 mg/dL (0.2 mg/dL) Urine Leukocyte Esterase Negative (NEG) Urine RBC Occ /HPF (0-2) Urine WBC 1-4 /HPF (0-4) Urine Squamous Epithelial Cells Many /LPF Urine Amorphous Sediment Present /HPF Urine Bacteria Few /HPF (0-FEW) Urine Mucus Slight /LPF Microbiology 12/21/18 Blood Culture - Final, Complete NO GROWTH AFTER 5 DAYS 12/25/18 - Final, Complete 12/25/18 - Final, Complete 12/25/18 - Final, Complete 12/25/18 - Final, Complete 12/25/18 Gram Stain Evaluation - Final, Complete 12/25/18 Sputum Culture - Final, Complete 12/25/18 Sputum Result 1 - Final, Complete Medications Current Medications Sodium Chloride 1,000 ml @ 1,000 mls/hr 1X ONCE IV Last administered on 13:52; Start 12/14/18 at 13:30; Stop 12/14/18 at 14:29; Status DC Amlodipine Besylate (Norvasc) 10 mg DAILY PO Last administered on 12/26/18 10: 01; Start 12/14/18 at 17:00 Chlorhexidine Gluconate (Peridex) 15 ml BID MM Last administered on 12/29/18 21:41; Start 12/14/18 at 21:00 Non-Formulary Medication (Albuterol Sulfate (Ventolin Hfa Inhaler)) 2 puff Q4HRS INH ; Start 12/14/18 at 20:00; Status UNV Ascorbic Acid (Vitamin C) 500 mg DAILY PO Last administered on 12/22/18 10:30; Start 12/14/18 at 17:00 Duloxetine HCl (Cymbalta) 90 mg DAILY PO Last administered on 12/22/18 10:30; Start 12/14/18 at 17:00 Ferrous Sulfate (Feosol) 325 mg DAILYWBKFT PO Last administered on 12/22/18 10: 30; Start 12/14/18 at 17:00 Losartan Potassium (Cozaar) 100 mg DAILY PO Last administered on 12/22/18 10:29 ; Start 12/14/18 at 17:00 Memantine (Namenda) 10 mg BID PO Last administered on 12/26/18 21:25; Start at 21:00 Pantoprazole Sodium (Protonix) 40 mg DAILYAC PO Last administered on 12/22/18 05:28; Start 12/14/18 at 17:00; Stop 12/24/18 at 09:25; Status DC Ropinirole HCl (Requip) 3 mg QHS PO Last administered on 12/26/18 21:25; Start 12/14/18 at 21:00 Spironolactone (Aldactone) 25 mg DAILY PO Last administered on 12/26/18 10:42 ; Start 12/14/18 at 17:00 Albuterol Sulfate (Ventolin Neb Soln) 2.5 mg Q4HRS NEB Last administered on at 07:03; Start 12/14/18 at 20:00 Sodium Chloride 1,000 ml @ 80 mls/hr [id number] IV Last administered on 12/23/18at 15:25; Start 12/14/18 at 17:15; Stop 12/23/18 at 21:59; Status DC Acetaminophen (Tylenol) 650 mg PRN Q6HRS PRN PO Pain Last administered on at 21:27; Start 12/15/18 at 04:45; Stop 12/26/18 at 21:07; Status DC Polyethylene Glycol (miraLAX Powder BULK BOTTLE) 238 gm 1X ONCE PO Last administered on 12/15/18at 12:48; Start 12/15/18 at 12:00; Stop 12/15/18 at 12:01 ; Status DC Ondansetron HCl (Zofran) 4 mg PRN Q6HRS PRN IV NAUSEA/VOMITING; Start 12/16/18 at 07:00; Stop 12/17/18 at 06:59; Status DC Fentanyl Citrate (Fentanyl 2ml Vial) 25 mcg PRN Q5MIN PRN IV MILD PAIN; Start 12/16/18 at 07:00; Stop 12/16/18 at 16:33; Status DC Fentanyl Citrate (Fentanyl 2ml Vial) 50 mcg PRN Q5MIN PRN IV MODERATE TO SEVERE PAIN; Start 12/16/18 at 07:00; Stop 12/16/18 at 16:33; Status DC Morphine Sulfate (Morphine Sulfate) 1 mg PRN Q10MIN PRN IV SEVERE PAIN; Start 12/16/18 at 07:00; Stop 12/17/18 at 06:59; Status DC Ringer's Solution 1,000 ml @ 30 mls/hr Q24H IV Last administered on 12/16/18at 13:00; Start 12/16/18 at 07:00; Stop 12/16/18 at 18:59; Status DC Lidocaine HCl (Xylocaine-Mpf 1% 2ml Vial) 2 ml PRN 1X PRN ID IV START; Start at 07:00; Stop 12/17/18 at 06:59; Status DC Hydromorphone HCl (Dilaudid) 0.5 mg PRN Q10MIN PRN IV SEV PAIN, Second choice; Start 12/16/18 at 07:00; Stop 12/17/18 at 06:59; Status DC Prochlorperazine Edisylate (Compazine) 5 mg PACU PRN PRN IV NAUSEA, MRX1; Start 12/16/18 at 07:00; Stop 12/17/18 at 06:59; Status DC Midazolam HCl (Versed) 2 mg PRN 1X PRN IV PRIOR TO PROCEDURE; Start 12/16/18 at 07:15; Stop 12/17/18 at 07:14; Status DC Fentanyl Citrate (Fentanyl 2ml Vial) 25 mcg PRN Q5MIN PRN IV X 2 DOSES FOR PAIN ; Start 12/16/18 at 07:15; Stop 12/16/18 at 16:33; Status DC Fentanyl Citrate (Fentanyl 2ml Vial) 50 mcg PRN Q5MIN PRN IV X 2 DOSES FOR PAIN ; Start 12/16/18 at 07:15; Stop 12/16/18 at 16:34; Status DC Ringer's Solution 1,000 ml @ 125 mls/hr Q8H IV ; Start 12/16/18 at 07:13; Stop 12/16/18 at 19:12; Status DC Lidocaine HCl (Xylocaine-Mpf 1% 2ml Vial) 2 ml 1X PRN PRN ID IV START; Start at 07:15; Stop 12/17/18 at 07:14; Status DC Propofol 40 ml @ As Directed STK-MED ONCE IV ; Start 12/16/18 at 13:58; Stop at 14:00; Status DC Prochlorperazine Edisylate (Compazine) 5 mg PACU PRN PRN IV NAUSEA, MRX1; Start 12/17/18 at 07:00; Stop 12/18/18 at 06:59; Status DC Hydromorphone HCl (Dilaudid) 0.5 mg PRN Q10MIN PRN IV SEV PAIN, Second choice; Start 12/17/18 at 07:00; Stop 12/18/18 at 06:59; Status DC Lidocaine HCl (Xylocaine-Mpf 1% 2ml Vial) 2 ml PRN 1X PRN ID IV START; Start at 07:00; Stop 12/18/18 at 06:59; Status DC Ringer's Solution 1,000 ml @ 30 mls/hr Q24H IV Last administered on 12/17/18at 10:34; Start 12/17/18 at 07:00; Stop 12/17/18 at 18:59; Status DC Morphine Sulfate (Morphine Sulfate) 1 mg PRN Q10MIN PRN IV SEVERE PAIN; Start 12/17/18 at 07:00; Stop 12/18/18 at 06:59; Status DC Fentanyl Citrate (Fentanyl 2ml Vial) 50 mcg PRN Q5MIN PRN IV MODERATE TO SEVERE PAIN Last administered on 12/17/18at 11:13; Start 12/17/18 at 07:00; Stop at 06:59; Status DC Fentanyl Citrate (Fentanyl 2ml Vial) 25 mcg PRN Q5MIN PRN IV MILD PAIN; Start 12/17/18 at 07:00; Stop 12/18/18 at 06:59; Status DC Ondansetron HCl (Zofran) 4 mg PRN Q6HRS PRN IV NAUSEA/VOMITING; Start 12/17/18 at 07:00; Stop 12/18/18 at 06:59; Status DC Propofol 20 ml @ As Directed STK-MED ONCE IV ; Start 12/17/18 at 07:21; Stop 12/17 at 07:23; Status DC Albuterol Sulfate (Ventolin Neb Soln) 2.5 mg 1X ONCE NEB ; Start 12/17/18 at 07: 30; Stop 12/17/18 at 07:31; Status DC Lidocaine HCl (Lidocaine Pf 2% Vial) 5 ml STK-MED ONCE .ROUTE ; Start 12/17/18 at 07:21; Stop 12/17/18 at 07:23; Status DC Succinylcholine Chloride (Anectine) 200 mg STK-MED ONCE .ROUTE ; Start 12/17/18 at 07:21; Stop 12/17/18 at 07:23; Status DC Rocuronium Piseco (Zemuron) 50 mg STK-MED ONCE .ROUTE ; Start 12/17/18 at 07:21 ; Stop 12/17/18 at 07:23; Status DC Fentanyl Citrate (Fentanyl 2ml Vial) 100 mcg STK-MED ONCE .ROUTE ; Start at 07:21; Stop 12/17/18 at 07:24; Status DC Cefazolin Sodium/ Dextrose 50 ml @ 100 mls/hr 1X ONCE IV Last administered on 12/17/18at 08:07; Start 12/17/18 at 07:45; Stop 12/17/18 at 08:18; Status DC Bupivacaine HCl/ Epinephrine Bitart (Sensorcain-Mpf Epi 0.5%-1:[id number]) 30 ml STK -MED ONCE .ROUTE Last administered on 12/17/18at 08:34; Start 12/17/18 at 07:46; Stop 12/17/18 at 07:49; Status DC Neomycin/ Polymyxin/ Bacitracin (Triple Antibiotic Ointment) 1 pkt STK-MED ONCE TP Last administered on 12/17/18at 10:07; Start 12/17/18 at 07:46; Stop 12/17/18 at 07:49; Status DC Neomycin/ Polymyxin/ Bacitracin (Triple Antibiotic Ointment) 1 pkt STK-MED ONCE TP Last administered on 12/17/18at 10:07; Start 12/17/18 at 07:46; Stop 12/17/18 at 07:49; Status DC Neomycin/ Polymyxin/ Bacitracin (Triple Antibiotic Ointment) 1 pkt STK-MED ONCE TP ; Start 12/17/18 at 07:47; Stop 12/17/18 at 07:49; Status DC Dexamethasone Sodium Phosphate (Decadron) 20 mg STK-MED ONCE .ROUTE ; Start 12/17 at 07:54; Stop 12/17/18 at 07:56; Status DC Hydrocortisone Sodium Succinate (Solu-CORTEF) 100 mg STK-MED ONCE .ROUTE ; Start 12/17/18 at 07:54; Stop 12/17/18 at 07:56; Status DC Desflurane (Suprane) 90 ml STK-MED ONCE IH ; Start 12/17/18 at 07:54; Stop at 07:56; Status DC Neostigmine Methylsulfate (Bloxiverz) 10 mg STK-MED ONCE .ROUTE ; Start 12/17/18 at 08:21; Stop 12/17/18 at 08:24; Status DC Glycopyrrolate (Robinul) 1 mg STK-MED ONCE .ROUTE ; Start 12/17/18 at 08:21; Stop 12/17/18 at 08:24; Status DC Phenylephrine HCl (Bogdan-Synephrine Inj) 10 mg STK-MED ONCE .ROUTE ; Start at 08:23; Stop 12/17/18 at 08:26; Status DC Desflurane (Suprane) 60 ml STK-MED ONCE IH ; Start 12/17/18 at 09:23; Stop at 09:26; Status DC Bupivacaine HCl/ Epinephrine Bitart (Sensorcain-Mpf Epi 0.5%-1:[id number]) 30 ml STK -MED ONCE .ROUTE Last administered on 12/17/18 10:06; Start 12/17/18 at 09:41; Stop 12/17/18 at 09:43; Status DC Morphine Sulfate (Morphine Sulfate) 2 mg PRN Q2HR PRN IV PAIN Last administered on 12/25/18 09:26; Start 12/17/18 at 10:15; Stop 12/25/18 at 17:54; Status DC Ketorolac Tromethamine (Toradol 15mg Vial) 15 mg Q6HRS IV Last administered on 12/18/18 05:39; Start 12/17/18 at 12:00; Stop 12/18/18 at 10:00; Status DC Artificial Tears (Artificial Tears) 1 drop PRN Q15MIN PRN OU DRY EYE Last administered on 12/20/18 21:28; Start 12/18/18 at 08:00 Docusate Sodium (Colace) 100 mg DAILY PO Last administered on 12/26/18 10:01; Start 12/18/18 at 10:00 Throat Lozenges (Cepacol Sore Throat Lozenge) 1 kristyn PRN Q2HRS PRN PO SORE THROAT Last administered on 12/26/18 10:01; Start 12/18/18 at 14:00 Enoxaparin Sodium (Lovenox 40mg Syringe) 40 mg Q24H SQ Last administered on 10:03; Start 12/19/18 at 09:00 Ondansetron HCl (Zofran) 4 mg PRN Q6HRS PRN IV NAUSEA/VOMITING Last administered on 12/30/18 03:43; Start 12/19/18 at 11:30 Insulin Human Lispro (HumaLOG) 0-5 UNITS TIDWMEALS SQ Last administered on 12/30 07:56; Start 12/19/18 at 17:00 Dextrose (Dextrose 50%-Water Syringe) 12.5 gm PRN Q15MIN PRN IV SEE COMMENTS; Start 12/19/18 at 16:45 Levofloxacin/ Dextrose 100 ml @ 100 mls/hr 1X ONCE IV Last administered on 20:56; Start 12/19/18 at 21:00; Stop 12/19/18 at 21:59; Status DC Cefepime HCl (Maxipime) 2 gm Q12HR IVP Last administered on 12/29/18 10:02; Start 12/21/18 at 10:00; Stop 12/29/18 at 10:37; Status DC Sodium Chloride 1,000 ml @ 125 mls/hr 1X ONCE IV Last administered on 10:43; Start 12/21/18 at 09:45; Stop 12/21/18 at 17:44; Status DC Calcium Carbonate/ Glycine (Tums) 500 mg PRN AFTMEALHC PRN PO INDIGESTION Last administered on 12/21/18 13:10; Start 12/21/18 at 12:15 Lorazepam (Ativan) 1 mg 1X ONCE IV Last administered on 12/21/18 17:50; Start 12/21/18 at 17:30; Stop 12/21/18 at 17:31; Status DC Albuterol Sulfate (Ventolin Neb Soln) 2.5 mg PRN Q2HRS PRN NEB SHORTNESS OF BREATH Last administered on 12/26/18 10:26; Start 12/21/18 at 17:30 Nicotine (Nicoderm Cq 14mg) 1 patch PRN DAILY PRN TD SMOKING CESSATION Last administered on 12/26/18 09:59; Start 12/21/18 at 19:30 Lorazepam (Ativan) 1 mg 1X ONCE IV Last administered on 12/21/18 23:45; Start 12/21/18 at 23:45; Stop 12/21/18 at 23:46; Status DC Lorazepam (Ativan) 1 mg PRN Q4HRS PRN IV ANXIETY / AGITATION Last administered on 12/22/18 11:15; Start 12/21/18 at 23:30; Stop 12/22/18 at 14:42; Status DC Sodium Chloride 1,000 ml @ 250 mls/hr 1X ONCE IV Last administered on 09:15; Start 12/22/18 at 09:15; Stop 12/22/18 at 13:14; Status DC Lidocaine/Sodium Bicarbonate (Buffered Lidocaine 1%) 3 ml STK-MED ONCE .ROUTE ; Start 12/23/18 at 10:33; Stop 12/23/18 at 10:35; Status DC Lidocaine/Sodium Bicarbonate (Buffered Lidocaine 1%) 3 ml 1X ONCE INJ Last administered on 12/23/18 11:24; Start 12/23/18 at 11:00; Stop 12/23/18 at 11:10; Status DC Info (Tpn Per Pharmacy) 1 each PRN DAILY PRN MC SEE COMMENTS Last administered on 12/29/18at 13:12; Start 12/23/18 at 14:00 Sodium Chloride 90 meq/Potassium Chloride 50 meq/ Potassium Phosphate 20.4 mmol/ Magnesium Sulfate 18 meq/ Calcium Gluconate 5 meq/ Multivitamins 10 ml/Chromium / Copper/Manganese/ Seleni/Zn 1 ml/ Total Parenteral Nutrition/Amino Acids/ Dextrose/ Fat Emulsion Intravenous 1,512 ml @ 63 mls/hr TPN CONT IV Last administered on 12/23/18 21:37; Start 12/23/18 at 22:00; Stop 12/24/18 at 21:59; Status DC Alprazolam (Xanax) 0.25 mg PRN BID PRN PO ANXIETY / AGITATION Last administered on 12/25/18 09:25; Start 12/23/18 at 23:00; Stop 12/25/18 at 17:54; Status DC Lorazepam (Ativan) 1 mg PRN Q4HRS PRN IV ANXIETY / AGITATION Last administered on 12/24/18 09:21; Start 12/24/18 at 08:45; Stop 12/24/18 at 10:19; Status DC Pantoprazole Sodium (PROTONIX VIAL for IV PUSH) 40 mg DAILYAC IVP Last administered on 12/30/18at 07:45; Start 12/24/18 at 09:30 Lorazepam (Ativan) 0.5 mg PRN Q4HRS PRN IV ANXIETY / AGITATION Last administered on 12/25/18at 04:47; Start 12/24/18 at 10:30; Stop 12/25/18 at 10:22; Status DC Sodium Chloride 45 meq/Sodium Acetate 45 meq/ Potassium Chloride 50 meq/ Potassium Phosphate 20.4 mmol/Magnesium Sulfate 18 meq/ Calcium Gluconate 5 meq / Multivitamins 10 ml/Chromium/ Copper/Manganese/ Seleni/Zn 1 ml/ Total Parenteral Nutrition/Amino Acids/Dextrose/ Fat Emuls... 1,512 ml @ 63 mls/hr TPN CONT IV Last administered on 12/24/18at 21:57; Start 12/24/18 at 22:00; Stop 12/25/18 at 21:59; Status DC Phenyleph/Shark Oil/Min Oil/Petrol (Preparation H) 1 ranjith PRN Q4HRS PRN RC RECTAL PAIN; Start 12/24/18 at 12:45; Stop 12/25/18 at 20:20; Status DC Sodium Chloride 45 meq/Sodium Acetate 45 meq/ Potassium Chloride 50 meq/ Potassium Phosphate 20.4 mmol/Magnesium Sulfate 18 meq/ Calcium Gluconate 5 meq / Multivitamins 10 ml/Chromium/ Copper/Manganese/ Seleni/Zn 1 ml/ Total Parenteral Nutrition/Amino Acids/Dextrose/ Fat Emuls... 1,512 ml @ 63 mls/hr TPN CONT IV Last administered on 12/26/18at 00:34; Start 12/25/18 at 22:00; Stop 12/26/18 at 21:59; Status DC Neomycin/ Polymyxin/ Bacitracin (Triple Antibiotic Ointment) 1 pkt PRN TID PRN TP skin around rectum, post op Last administered on 12/26/18at 09:58; Start at 14:30 Alprazolam (Xanax) 0.25 mg PRN Q8HRS PRN PO ANXIETY / AGITATION Last administered on 12/28/18at 04:39; Start 12/25/18 at 18:00 Morphine Sulfate (Morphine Sulfate) 2 mg PRN Q6HRS PRN IV PAIN Last administered on 12/29/18at 21:47; Start 12/25/18 at 18:00; Stop 12/30/18 at 03:17 ; Status DC Guaifenesin (Mucinex) 600 mg BID PO Last administered on 12/26/18at 21:26; Start 12/26/18 at 11:00 Guaifenesin (Mucinex) 600 mg BID PO ; Start 12/26/18 at 11:00; Status UNV Guaifenesin/ Codeine Phosphate (Robitussin Ac) 5 ml PRN Q6HRS PRN PO COUGH Last administered on 12/26/18at 10:41; Start 12/26/18 at 10:30 Sodium Acetate 90 meq/Potassium Chloride 50 meq/ Potassium Phosphate 13.6 mmol/ Magnesium Sulfate 18 meq/ Calcium Gluconate 5 meq/ Multivitamins 10 ml/Chromium / Copper/Manganese/ Seleni/Zn 1 ml/ Total Parenteral Nutrition/Amino Acids/ Dextrose/ Fat Emulsion Intravenous 1,512 ml @ 63 mls/hr TPN CONT IV Last administered on 12/26/18at 21:37; Start 12/26/18 at 22:00; Stop 12/28/18 at 01:28 ; Status DC Benzocaine (Hurricaine One) 1 spray 1X ONCE MM ; Start 12/26/18 at 19:15; Stop 12/26/18 at 19:16; Status DC Acetaminophen (Tylenol) 650 mg PRN Q6HRS PRN PO MILD PAIN / TEMP Last administered on 12/27/18at 04:39; Start 12/26/18 at 21:00 Benzocaine (Hurricaine One) 1 spray 1X ONCE MM Last administered on 12/27/18at 09:00; Start 12/27/18 at 09:15; Stop 12/27/18 at 09:16; Status DC Sodium Acetate 90 meq/Potassium Chloride 50 meq/ Potassium Phosphate 13.6 mmol/ Magnesium Sulfate 15 meq/ Calcium Gluconate 5 meq/ Multivitamins 10 ml/Chromium / Copper/Manganese/ Seleni/Zn 1 ml/ Total Parenteral Nutrition/Amino Acids/ Dextrose/ Fat Emulsion Intravenous 1,512 ml @ 63 mls/hr TPN CONT IV ; Start at 22:00; Stop 12/28/18 at 21:59; Status Cancel Sodium Acetate 90 meq/Potassium Chloride 50 meq/ Potassium Phosphate 13.6 mmol/ Magnesium Sulfate 15 meq/ Calcium Gluconate 5 meq/ Multivitamins 10 ml/Chromium / Copper/Manganese/ Seleni/Zn 1 ml/ Total Parenteral Nutrition/Amino Acids/ Dextrose/ Fat Emulsion Intravenous 1,512 ml @ 63 mls/hr TPN CONT IV ; Start at 22:00; Stop 12/28/18 at 21:59; Status DC Lidocaine/Sodium Bicarbonate (Buffered Lidocaine 1%) 3 ml 1X ONCE INJ ; Start 12/28/18 at 09:00; Stop 12/28/18 at 09:01; Status Cancel Benzocaine (Hurricaine One) 1 spray 1X ONCE MM Last administered on 12/28/18at 09:32; Start 12/28/18 at 09:30; Stop 12/28/18 at 09:33; Status DC Sodium Acetate 90 meq/Potassium Chloride 50 meq/ Potassium Phosphate 13.6 mmol/ Magnesium Sulfate 15 meq/ Calcium Gluconate 5 meq/ Multivitamins 10 ml/Chromium / Copper/Manganese/ Seleni/Zn 1 ml/ Total Parenteral Nutrition/Amino Acids/ Dextrose/ Fat Emulsion Intravenous 1,512 ml @ 63 mls/hr TPN CONT IV Last administered on 12/28/18at 22:06; Start 12/28/18 at 22:00; Stop 12/29/18 at 21:59 ; Status DC Iohexol (Omnipaque 300 Mg/ml) 400 ml 1X ONCE PO Last administered on at 08:15; Start 12/29/18 at 06:45; Stop 12/29/18 at 06:46; Status DC Info (CONTRAST GIVEN -- Rx MONITORING) 1 each PRN DAILY PRN MC SEE COMMENTS; Start 12/29/18 at 06:45; Stop 12/31/18 at 06:44 Iohexol (Omnipaque 300 Mg/ml) 400 ml 1X ONCE PO ; Start 12/29/18 at 07:00; Stop 12/29/18 at 07:03; Status DC Info (CONTRAST GIVEN -- Rx MONITORING) 1 each PRN DAILY PRN MC SEE COMMENTS; Start 12/29/18 at 07:15; Stop 12/31/18 at 07:14 Meropenem 500 mg/ Sodium Chloride 50 ml @ 100 mls/hr Q6HRS IV Last administered on 12/30/18at 05:51; Start 12/29/18 at 12:00 Multi-Ingredient Ointment (Analgesic [place]) 1 ranjith PRN QID PRN TP MUSCLE PAIN Last administered on 12/29/18at 14:40; Start 12/29/18 at 13:00 Sodium Acetate 90 meq/Potassium Chloride 50 meq/ Potassium Phosphate 13.6 mmol/ Magnesium Sulfate 15 meq/ Calcium Gluconate 5 meq/ Multivitamins 10 ml/Chromium / Copper/Manganese/ Seleni/Zn 1 ml/ Total Parenteral Nutrition/Amino Acids/ Dextrose/ Fat Emulsion Intravenous 1,512 ml @ 63 mls/hr TPN CONT IV Last administered on 12/29/18at 21:40; Start 12/29/18 at 22:00; Stop 12/30/18 at 21:59 Morphine Sulfate (Morphine Sulfate) 2 mg PRN Q4HRS PRN IV SEVERE PAIN Last administered on 12/30/18at 09:15; Start 12/30/18 at 03:30 Active Scripts Active Chlorhexidine Gluconate 473 Ml Mouthwash 473 Ml MM BID 7 Days Vitamin C (Ascorbate Calcium) 500 Mg Tablet 500 Mg PO DAILY 30 Days Slow Release Iron (Ferrous Sulfate) 250 Mg Tablet.er 250 Mg PO DAILY 30 Days Protonix (Pantoprazole Sodium) 40 Mg Granpkt.dr 40 Mg PO DAILY 30 Days Reported Alprazolam 0.25 Mg Tablet 0.25 Mg PO DAILY Metformin Hcl Er (Metformin Hcl) 500 Mg Tab.er.24h 1 Tab PO DAILY Namenda (Memantine Hcl) 10 Mg Tablet 1 Tab PO BID Losartan Potassium 100 Mg Tablet 100 Mg PO DAILY Spironolactone 25 Mg Tablet 1 Tab PO DAILY Ventolin Hfa Inhaler (Albuterol Sulfate) 18 Gm Hfa.aer.ad 2 Puff INH Q4HRS Cymbalta (Duloxetine Hcl) 20 Mg Capsule.dr 90 Mg PO DAILY Requip (Ropinirole Hcl) 1 Mg Tablet 3 Mg PO DAILY Amlodipine Besylate 10 Mg Tablet 10 Mg PO DAILY Vitals/I & O Vital Sign - Last 24 Hours 12/29/18 12/29/18 12/29/18 12/29/18 11:00 11:03 14:45 14:49 Temp 98.4 98.4 Pulse 91 Resp 18 B/P (MAP) 116/74 (88) Pulse Ox 94 O2 Delivery Nasal Cannula Nasal Cannula Nasal Cannula Nasal Cannula O2 Flow Rate 3.0 3.0 3.0 3.0 12/29/18 12/29/18 12/29/18 12/29/18 15:00 15:15 19:00 19:35 Temp 99.3 98.8 99.3 98.8 Pulse 87 82 Resp 18 18 B/P (MAP) 121/76 (91) 127/76 (93) Pulse Ox 96 92 92 O2 Delivery Room Air Nasal Cannula Nasal Cannula Nasal Cannula O2 Flow Rate 3.0 3.0 3.0 12/29/18 12/29/18 12/29/18 12/30/18 20:20 23:00 23:46 03:00 Temp 98.4 98.7 98.4 98.7 Pulse 89 97 Resp 18 18 B/P (MAP) 127/84 (98) 146/87 (106) Pulse Ox 94 92 92 O2 Delivery Nasal Cannula Nasal Cannula Nasal Cannula Nasal Cannula O2 Flow Rate 3.0 3.0 3.0 3.0 12/30/18 12/30/18 12/30/18 12/30/18 03:15 07:00 07:03 09:15 Temp 98.0 98.0 Pulse 89 Resp 16 B/P (MAP) 111/78 (89) Pulse Ox 92 95 92 O2 Delivery Nasal Cannula Room Air Nasal Cannula Nasal Cannula O2 Flow Rate 3.0 3.0 3.0 12/30/18 09:52 O2 Delivery Nasal Cannula O2 Flow Rate 3.0 Intake and Output 12/29/18 12/29/18 12/30/18 15:00 23:00 07:00 Intake Total 0 ml Output Total 650 ml 1000 ml Balance -650 ml -1000 ml DAYLIN MILLER MD Dec 30, 2018 10:27
--- NOTE | 2018-12-30 10:57 | PDOC ---
Subjective: Subjective: Daughter and pt say plans for surgery at 2:00 p.m. Objective: Vital Signs: Vital Signs Date Time Temp Pulse Resp B/P (MAP) Pulse Ox O2 Delivery O2 Flow Rate FiO2 12/30/18 09:52 Nasal Cannula 3.0 12/30/18 07:03 92 12/30/18 07:00 98.0 89 16 111/78 (89) 98.0 Labs: Laboratory Tests Test 12/29/18 12:01 12/29/18 18:05 12/30/18 05:45 12/30/18 08:20 Glucose (Fingerstick) 251 mg/dL 212 mg/dL White Blood Count 16.2 x10^3/uL Red Blood Count 3.40 x10^6/uL Hemoglobin 8.0 g/dL Hematocrit 25.9 % Mean Corpuscular Volume 76 fL Mean Corpuscular Hemoglobin 24 pg Mean Corpuscular Hemoglobin Concent 31 g/dL Red Cell Distribution Width 23.6 % Platelet Count 381 x10^3/uL Neutrophils (%) (Auto) 85 % Lymphocytes (%) (Auto) 7 % Monocytes (%) (Auto) 6 % Eosinophils (%) (Auto) 1 % Basophils (%) (Auto) 1 % Neutrophils # (Auto) 13.8 x10^3uL Lymphocytes # (Auto) 1.2 x10^3/uL Monocytes # (Auto) 1.0 x10^3/uL Eosinophils # (Auto) 0.1 x10^3/uL Basophils # (Auto) 0.1 x10^3/uL Sodium Level 142 mmol/L Potassium Level 4.5 mmol/L Chloride Level 104 mmol/L Carbon Dioxide Level 33 mmol/L Anion Gap 5 Blood Urea Nitrogen 33 mg/dL Creatinine 0.8 mg/dL Estimated GFR (Cockcroft-Gault) 84.6 BUN/Creatinine Ratio 41 Glucose Level 260 mg/dL Calcium Level 9.5 mg/dL Phosphorus Level 4.2 mg/dL Magnesium Level 2.1 mg/dL Total Bilirubin 0.2 mg/dL Aspartate Amino Transf (AST/SGOT) 26 U/L Alanine Aminotransferase (ALT/SGPT) 22 U/L Alkaline Phosphatase 70 U/L Total Protein 6.7 g/dL Albumin 2.3 g/dL Albumin/Globulin Ratio 0.5 Urine Collection Type U cath Urine Color Yellow Urine Clarity Clear Urine pH 5.5 Urine Specific [place] >=1.030 Urine Protein 30 mg/dL Urine Glucose (UA) 500 mg/dL Urine Ketones (Stick) Negative mg/dL Urine Blood Negative Urine Nitrite Negative Urine Bilirubin Negative Urine Urobilinogen Dipstick 0.2 mg/dL Urine Leukocyte Esterase Negative Urine RBC Occ /HPF Urine WBC 1-4 /HPF Urine Squamous Epithelial Cells Many /LPF Urine Amorphous Sediment Present /HPF Urine Bacteria Few /HPF Urine Mucus Slight /LPF Imaging: SBS 12/29 IMPRESSION: High-grade distal small bowel obstruction. CXR 12/30 A right PICC extends into the superior vena cava. The heart size and pulmonary vascularity are normal. There is mild unchanged elevation of the left hemidiaphragm with underlying mild left basilar atelectasis and/or scarring. The right lung is clear. There is no evidence of pleural fluid. No new abnormality is seen. Distended bowel loops are again noted in the upper abdomen. IMPRESSION: No significant change since 12/26/2018. PE: GEN: NAD HEENT: NG bilious LUNGS: NC, some diminished ABD: distended NEURO/PSYCH: A & O 3 A/P: Recurrent GI bleeding s/p right colon resection and hemorrhoidectomy 12/17/18 SBO - SBS as above from 12/29 Anemia (stable), leukocytosis (worse) COPD, acute resp failure -- Plans for OR today, will follow. RADHA JUSTICE Dec 30, 2018 10:56
[2018-12-30] MEDS ORDERED: LIDOCAINE 2% PF 5 ML VIAL. ONE (12:51)
[2018-12-30] MEDS ORDERED: DEXAMETHASONE SOD PHOS 20 MG/5 ML VIAL. ONE (12:51)
[2018-12-30] MEDS ORDERED: ROCURONIUM 50 MG/5 ML VIAL. ONE (12:51)
[2018-12-30] MEDS ORDERED: ONDANSETRON PF 4 MG/2 ML VIAL. ONE (12:51)
[2018-12-30] MEDS ORDERED: PROPOFOL 20 ML IV ONE (12:51)
[2018-12-30] MEDS ORDERED: SUCCINYLCHOLINE 200 MG/10 ML VIAL. ONE (12:51)
--- NOTE | 2018-12-30 13:14 | NUR ---
Pt to OR by bed, two family members following. Report given earlier to RODERICK Shook.
[2018-12-30] MEDS ORDERED: fentaNYL PF VIAL 250 MCG/5 ML VIAL ONE (13:49)
--- NOTE | 2018-12-30 14:19 | NUR ---
SW following. Discussed with RN, pt having surgery today. SW will continue to follow.
--- NOTE | 2018-12-30 14:45 | NUR ---
Pt to be transferred to ICU, room 105 after surgery. Report given to RODERICK Shah.
[2018-12-30] MEDS: TPN PER PHARMACY MC PRN (14:51)
--- NOTE | 2018-12-30 14:51 | NUR ---
Pharmacy TPN Dosing Note S: ELLE LATHAM is a 72 year old F Currently receiving Central Continuous TPN started 12/23/18 B:Pertinent PMH: SBO Height: 5 feet, 7 inches Weight: 85.3 kg Current diet: npo LABS: Sodium: 142 Potassium: 4.5 Chloride: 104 Calcium: 9.5 Corrected Calcium: 10.86 Magnesium: 2.1 CO2: 33 SCr: 0.8 Glucose: 260, 255 Albumin: 2.3 AST: 26 ALT: 22 TPN FORMULA: TPN TYPE: Central Continuous AMINO ACIDS: 85 gm DEXTROSE: 260 gm LIPIDS: 40 gm SODIUM CHLORIDE: 90 mEq POTASSIUM CHLORIDE: 50 mEq POTASSIUM PHOSPHATE: 13.6 mmol MAGNESIUM: 15 mEq MULTIPLE VITAMIN: 10 ml TRACE ELEMENTS: MTE5 1 ml TPN PLAN: -Change NaAC to NaCl due to elevated CO2. -Corrected calcium well above goal range, remove remaining calcium from TPN. -CMP tomorrow per primary. R: Continue TPN @ current rate and above formula. Will monitor electrolytes, glucose, and tolerance to TPN. ELIDA HUFFMAN [facility], 12/30/18 [id number]
[2018-12-30] MEDS ORDERED: VASOPRESSIN 20 UNIT/ML VIAL. ONE (15:00)
[2018-12-30] MEDS ORDERED: 0.9 % SODIUM CHLORIDE 20 ML VIAL. IJ ONE (15:01)
[2018-12-30] MEDS ORDERED: ALBUMIN HUMAN 5% 500 ML IV ONE (15:01)
[2018-12-30] MEDS ORDERED: GLYCOPYRROLATE 1 MG/5 ML VIAL. ONE (15:21)
[2018-12-30] MEDS ORDERED: NEOSTIGMINE 10 MG/10 ML VIAL. ONE (15:21)
--- NOTE | 2018-12-30 15:35 | PDOC4 ---
Operative Note Operative Note Date: 12/30/2018 Preoperative diagnosis: Small bowel obstruction Postoperative diagnosis: Small bowel obstruction at previous anastomotic site Procedure: Exploratory laparotomy with extended right hemicolectomy and primary anastomosis Surgeon: Jan Specimen: Right extended colon Dictation: Patient is a 73-year-old female who underwent a right colon resection for a bleeding ulcer in the cecum. Postoperatively she developed abdominal distention and inability to pass flatus or stool small bowel follow- through showed high-grade obstruction in the mid abdomen. Procedure of exploratory laparotomy with possible small bowel resection colon resection was explained to the patient in detail risk benefits were also discussed including bleeding infection alternatives to this procedure also discussed with the patient and her family who seemed to understand and gave both verbal and written consent had procedure performed. Patient was taken to the operating room placed in supine position general anesthesia was initiated once patient was sleep and intubated her abdomen was prepped and draped usual sterile fashion using ChloraPrep midline incision was made with a 10 blade scalpel this is carried down through the subcutaneous tissue using blunt carbide hemostasis down to the fascia fashion was opened left cautery and the peritoneum was opened Metzenbaum scissors there is quite a bit of clear ascitic fluid which was suctioned the small bowel was run from the ligament of Treitz down to the anastomotic site of the right colon. The small bowel in its entirety was dilated up to the anastomotic site. The distal right colon at the hepatic flexure was taken down with left cautery to about the mid transverse colon colon was then stapled and transected the small bowel just proximal to the previous anastomotic site was stapled and transected the right colon and extended transverse were sent for pathology. The small bowel was opened with a small enterotomy and a NG tube was placed to decompress the small bowel this was done from the distal small bowel to the most proximal small bowel ligament of [place]itz a total of about 4 L was aspirated completely decompressing the small bowel. A isoperistaltic anastomosis of the small bowel to the transverse colon was performed with a 75 mm stapler the enterotomy was then closed with a running 3-0 PDS interlocking suture and oversewn 2 layers with 3-0 Vicryl Lembert's. The mesentery was then closed with running 3-0 Vicryl and the bowel was returned to the abdomen. Dirty instruments were removed from the field and surgeons changed gowns and gloves. The abdomen was then irrigated with copious amounts of normal saline and suctioned dry. The fascia was then closed with a running O loop PDS, deep subcutaneous layer was closed with running 3-0 Vicryl a [place] drain was placed deep in the subcutaneous space and the skin was reapproximated for septic and a Monocryl Mastisol Steri-Strips and island dressings were applied. Patient was awakened and asked [place] operating room to recovery in stable condition all sponge instrument needle counts listed as correct and blood loss 20 mL. DAYLIN WEI MD Dec 30, 2018 15:35
[2018-12-30] MEDS ORDERED: IPRATRPIUM/ALBUTEROL 0.5/2.5MG 3 ML NEBU. ONE (15:45)
[2018-12-30 16:38] LABS: BASE EXCESS ABG 2 mmol/L (-3-3); HCO3 ABG 26 mmol/L (21-28); PCO2 ABG 42 mmHg (35-46); PO2 ABG 72 mmHg (65-108); SAT O2 ABG 92 % (92-99)
[2018-12-30 16:44] LABS: FIO2 ABG 60
[2018-12-30] MEDS ORDERED: fentaNYL PF VIAL 100 MCG/2 ML VIAL ONE (16:56)
[2018-12-30] MEDS ORDERED: IV RINGERS,LACTATED 1000ML 1,000 ML IV SCH (17:10)
[2018-12-30] MEDS ORDERED: HYDROmorphone 2 MG/ML VIAL IV PRN (17:15)
[2018-12-30] MEDS ORDERED: ONDANSETRON PF 4 MG/2 ML VIAL. IV PRN (17:15)
[2018-12-30] MEDS ORDERED: LIDOCAINE 1% PF 2 ML VIAL. ID PRN (17:15)
[2018-12-30] MEDS ORDERED: fentaNYL PF VIAL 100 MCG/2 ML VIAL IV PRN (17:15)
[2018-12-30] MEDS ORDERED: PROCHLORPERAZINE 10 MG/2 ML VIAL. IV PRN (17:15)
[2018-12-30] MEDS: fentaNYL PF VIAL 100 MCG/2 ML VIAL IV PRN ×2 (17:15→17:27)
[2018-12-30] MEDS ORDERED: MORPHINE SULFATE 4 MG/ML VIAL. IV PRN (17:15)
[2018-12-30] MEDS: rOPINIRole 1 MG TABLET. PO SCH (21:00)
--- NOTE | 2018-12-30 21:25 | NUR ---
Patient's SBP 80's after Morphine administration and patient states pain has only decreased to 6/10 on Numeric pain scale, also UO 30CC/HR for the past three hours; LR at 30CC/HR and TPN at 63CC/HR--paged Dr Montoya. Dr Montoya returned paged, notified of above; orders received to increase LR to 100CC/HR, give 25GM Albumin TRO 1HR then give LR bolus 500CC TRO 2HRS, call if after Albumin and LR bolus SBP <90 or urine output is not >/= to 300CC/HR. and Dilaudid 0.5-1MG IVP PRN Q2HRS. See orders, Vital signs and UO.
[2018-12-30] MEDS ORDERED: AMINO ACID IV SCH ×9 (22:00)
[2018-12-30] MEDS ORDERED: DEXTROSE 70% IV SCH ×9 (22:00)
[2018-12-30] MEDS ORDERED: [UNRECOGNIZED DRUG - OTHER] IV SCH ×9 (22:00)
[2018-12-30] MEDS ORDERED: ALBUMIN HUMAN 25% 100 ML IV ONE (22:00)
[2018-12-30] MEDS ORDERED: TOTAL PARENTERAL NUTRITION IV SCH ×9 (22:00)
[2018-12-30] MEDS ORDERED: IV RINGERS,LACTATED 500ML 500 ML IV ONE (22:00)
[2018-12-30] MEDS: HYDROmorphone 2 MG/ML VIAL IV PRN (22:02)
[2018-12-30] MEDS: IV RINGERS,LACTATED 1000ML 1,000 ML IV SCH (23:44)
[2018-12-31] VITALS (15 sets, daily range): BP systolic 91–117; BP diastolic 57–74
[2018-12-31] MEDS: INSULIN LISPRO 300 UNITS/3 ML INSULN.PEN. SQ SCH ×4 (00:09→18:08)
[2018-12-31] MEDS: HYDROmorphone 2 MG/ML VIAL IV PRN ×7 (00:37→16:32)
[2018-12-31] MEDS: ALBUTEROL SULFATE 2.5 MG/3 ML NEBU. NEB SCH ×6 (03:55→22:34)
[2018-12-31] MEDS: MEROPENEM 500 MG in IV NORMAL SALINE 50ML 50 ML IV SCH ×4 (05:53→23:49)
[2018-12-31 06:00] LABS: BASO % 0 % (0-3); EOS % 0 % (0-3); HEMATOCRIT 24.4 % (36.0-47.0); HEMOGLOBIN 7.4 g/dL (12.0-15.5); LYMPH # 0.9 x10^3/uL (1.0-4.8); LYMPH % 5 % (24-48); MEAN CORPUSCULAR HEMOGLOBIN 23 pg (25-35); MEAN CORPUSCULAR HGB CONC 30 g/dL (31-37); MEAN CORPUSCULAR VOLUME 77 fL (79-100); MONO # 0.8 x10^3/uL (0.0-1.1); MONO % 5 % (0-9); NEUT # 16.7 x10^3uL (1.8-7.7); NEUT % 91 % (31-73); PLATELET COUNT 331 x10^3/uL (140-400); RED BLOOD COUNT 3.18 x10^6/uL (3.50-5.40); RED CELL DISTRIBUTION WIDTH 23.6 % (11.5-14.5); WHITE BLOOD COUNT 18.5 x10^3/uL (4.0-11.0)
[2018-12-31 06:22] LABS: ALBUMIN 2.3 g/dL (3.4-5.0); ALBUMIN/GLOBULIN RATIO 0.8 (1.0-1.7); CALCIUM 8.8 mg/dL (8.5-10.1); CREATININE 0.8 mg/dL (0.6-1.0); GFR 84.6; POTASSIUM 4.9 mmol/L (3.5-5.1); TOTAL BILIRUBIN 0.5 mg/dL (0.2-1.0); TOTAL PROTEIN 5.3 g/dL (6.4-8.2)
--- NOTE | 2018-12-31 07:28 | PDOC ---
Infectious Disease Note Subjective: Subjective pt underwent ex lap yesterday now moved to ICU says pain is under control no worsening sob or cough no nausea or vomiting d/w RN ROS: ROS Negative except for above. Vital Signs: Vital Signs Vital Signs Date Time Temp Pulse Resp B/P (MAP) Pulse Ox O2 Delivery O2 Flow Rate FiO2 12/31/18 07:03 20 95 3.0 12/31/18 07:00 87 96/67 (77) Nasal Cannula 12/31/18 04:00 96.5 96.5 Physical Exam: PHYSICAL EXAM GENERAL: awake alert HEENT:no icterus, ngt + NECK: Supple LUNGS: Clear anteriorly HEART: S1, S2 ABDOMEN: Distended, soft, hypoactive BS. dressings dry EXTREMITIES: No edema or cyanosis. SKIN: No rash. Rectal wound clean NEUROLOGIC: alert awake Dunn in place RUE-PICC (12/23) clean Medications: Inpatient Meds: Current Medications Medications (Trade) Dose Ordered Sig/Buffy Start Time Stop Time Status Last Admin Dose Admin Acetaminophen (Tylenol) 650 mg PRN Q6HRS PRN 12/26/18 21:00 12/27/18 04:39 650 MG Albumin Human 100 ml @ 100 mls/hr 1X ONCE 12/30/18 22:00 12/30/18 22:59 DC 12/30/18 22:00 100 MLS/HR Albuterol Sulfate (Ventolin Neb Soln) 2.5 mg PRN Q2HRS PRN 12/21/18 17:30 12/26/18 10:26 2.5 MG Albuterol/ Ipratropium (Duoneb) 3 ml STK-MED ONCE 12/30/18 15:45 12/30/18 15:46 DC Alprazolam (Xanax) 0.25 mg PRN Q8HRS PRN 12/25/18 18:00 12/28/18 04:39 0.25 MG Amlodipine Besylate (Norvasc) 10 mg DAILY 12/14/18 17:00 12/26/18 10:01 10 MG Artificial Tears (Artificial Tears) 1 drop PRN Q15MIN PRN 12/18/18 08:00 12/20/18 21:28 1 DROP Ascorbic Acid (Vitamin C) 500 mg DAILY 12/14/18 17:00 12/22/18 10:30 500 MG Benzocaine (Hurricaine One) 1 spray 1X ONCE 12/28/18 09:30 12/28/18 09:33 DC 12/28/18 09:32 1 SPRAY Bupivacaine HCl/ Epinephrine Bitart (Sensorcain-Mpf Epi 0.5%-1:[id number]) 30 ml STK-MED ONCE 12/17/18 09:41 12/17/18 09:43 DC 12/17/18 10:06 19 ML Calcium Carbonate/ Glycine (Tums) 500 mg PRN AFTMEALHC PRN 12/21/18 12:15 12/21/18 13:10 500 MG Cefazolin Sodium/ Dextrose 50 ml @ 100 mls/hr 1X ONCE 12/17/18 07:45 12/17/18 08:18 DC 12/17/18 08:07 100 MLS/HR Cefepime HCl (Maxipime) 2 gm Q12HR 12/21/18 10:00 12/29/18 10:37 DC 12/29/18 10:02 2 GM Chlorhexidine Gluconate (Peridex) 15 ml BID 12/14/18 21:00 12/29/18 21:41 15 ML Desflurane (Suprane) 60 ml STK-MED ONCE 12/17/18 09:23 12/17/18 09:26 DC Dexamethasone Sodium Phosphate (Decadron) 20 mg STK-MED ONCE 12/30/18 12:51 12/30/18 12:52 DC Dextrose (Dextrose 50%-Water Syringe) 12.5 gm PRN Q15MIN PRN 12/19/18 16:45 Docusate Sodium (Colace) 100 mg DAILY 12/18/18 10:00 12/26/18 10:01 100 MG Duloxetine HCl (Cymbalta) 90 mg DAILY 12/14/18 17:00 12/22/18 10:30 90 MG Enoxaparin Sodium (Lovenox 40mg Syringe) 40 mg Q24H 12/19/18 09:00 12/29/18 10:03 40 MG Fentanyl Citrate (Fentanyl 2ml Vial) 50 mcg PRN Q5MIN PRN 12/30/18 17:15 12/30/18 21:35 DC 12/30/18 17:57 50 MCG Fentanyl Citrate (Fentanyl 5ml Vial) 250 mcg STK-MED ONCE 12/30/18 13:49 2/14/19 13:50 DC Ferrous Sulfate (Feosol) 325 mg DAILYWBKFT 12/14/18 17:00 12/22/18 10:30 325 MG Glycopyrrolate (Robinul) 1 mg STK-MED ONCE 12/30/18 15:21 12/30/18 15:22 DC Guaifenesin (Mucinex) 600 mg BID 12/26/18 11:00 UNV Guaifenesin/ Codeine Phosphate (Robitussin Ac) 5 ml PRN Q6HRS PRN 12/26/18 10:30 12/26/18 10:41 5 ML Hydrocortisone Sodium Succinate (Solu-CORTEF) 100 mg STK-MED ONCE 12/17/18 07:54 12/17/18 07:56 DC Hydromorphone HCl (Dilaudid) 1 mg PRN Q2HR PRN 12/30/18 21:30 12/31/18 06:39 1 MG Info (CONTRAST GIVEN -- Rx MONITORING) 1 each PRN DAILY PRN 12/29/18 07:15 12/31/18 07:14 DC Info (Tpn Per Pharmacy) 1 each PRN DAILY PRN 12/23/18 14:00 12/30/18 14:51 1 EACH Insulin Human Lispro (HumaLOG) 0-5 UNITS Q6HRS 12/31/18 00:30 12/31/18 05:57 3 UNITS Iohexol (Omnipaque 300 Mg/ml) 400 ml 1X ONCE 12/29/18 07:00 12/29/18 07:03 DC Ketorolac Tromethamine (Toradol 15mg Vial) 15 mg Q6HRS 12/17/18 12:00 12/18/18 10:00 DC 12/18/18 05:39 15 MG Levofloxacin/ Dextrose 100 ml @ 100 mls/hr 1X ONCE 12/19/18 21:00 12/19/18 21:59 DC 12/19/18 20:56 100 MLS/HR Lidocaine HCl (Lidocaine Pf 2% Vial) 5 ml STK-MED ONCE 12/30/18 12:51 12/30/18 12:52 DC Lidocaine HCl (Xylocaine-Mpf 1% 2ml Vial) 2 ml 1X PRN PRN 12/30/18 17:15 12/30/18 21:35 DC Lidocaine/Sodium Bicarbonate (Buffered Lidocaine 1%) 3 ml 1X ONCE 12/28/18 09:00 12/28/18 09:01 Cancel Lorazepam (Ativan) 0.5 mg PRN Q4HRS PRN 12/24/18 10:30 12/25/18 10:22 DC 12/25/18 04:47 0.5 MG Losartan Potassium (Cozaar) 100 mg DAILY 12/14/18 17:00 12/22/18 10:29 100 MG Memantine (Namenda) 10 mg BID 12/14/18 21:00 12/26/18 21:25 10 MG Meropenem 500 mg/ Sodium Chloride 50 ml @ 100 mls/hr Q6HRS 12/29/18 12:00 12/31/18 05:53 100 MLS/HR Midazolam HCl (Versed) 2 mg PRN 1X PRN 12/16/18 07:15 12/17/18 07:14 DC Morphine Sulfate (Morphine Sulfate) 1 mg PRN Q10MIN PRN 12/30/18 17:15 12/31/18 17:14 Multi-Ingredient Ointment (Analgesic [place]) 1 ranjith PRN QID PRN 12/29/18 13:00 12/29/18 14:40 1 RANJITH Neomycin/ Polymyxin/ Bacitracin (Triple Antibiotic Ointment) 1 pkt PRN TID PRN 12/25/18 14:30 12/26/18 09:58 1 PKT Neostigmine Methylsulfate (Bloxiverz) 10 mg STK-MED ONCE 12/30/18 15:21 12/30/18 15:22 DC Nicotine (Nicoderm Cq 14mg) 1 patch PRN DAILY PRN 12/21/18 19:30 12/26/18 09:59 1 PATCH Non-Formulary Medication (Albuterol Sulfate (Ventolin Hfa Inhaler)) 2 puff Q4HRS 12/14/18 20:00 UNV Ondansetron HCl (Zofran) 4 mg PRN Q6HRS PRN 12/30/18 17:15 12/30/18 21:35 DC Pantoprazole Sodium (PROTONIX VIAL for IV PUSH) 40 mg DAILYAC 12/24/18 09:30 12/30/18 07:45 40 MG Pantoprazole Sodium (Protonix) 40 mg DAILYAC 12/14/18 17:00 12/24/18 09:25 DC 12/22/18 05:28 40 MG Phenyleph/Shark Oil/Min Oil/Petrol (Preparation H) 1 ranjith PRN Q4HRS PRN 12/24/18 12:45 12/25/18 20:20 DC Phenylephrine HCl (Bogdan-Synephrine Inj) 10 mg STK-MED ONCE 12/17/18 08:23 12/17/18 08:26 DC Polyethylene Glycol (miraLAX Powder BULK BOTTLE) 238 gm 1X ONCE 12/15/18 12:00 12/15/18 12:01 DC 12/15/18 12:48 238 GM Prochlorperazine Edisylate (Compazine) 5 mg PACU PRN PRN 12/30/18 17:15 12/30/18 21:35 DC Propofol 20 ml @ As Directed STK-MED ONCE 12/30/18 12:51 12/30/18 12:52 DC Ringer's Solution 1,000 ml @ 100 mls/hr Q10H 12/30/18 23:00 12/30/18 23:44 100 MLS/HR Rocuronium Joice (Zemuron) 50 mg STK-MED ONCE 12/30/18 12:51 12/30/18 12:52 DC Ropinirole HCl (Requip) 3 mg QHS 12/14/18 21:00 12/26/18 21:25 3 MG Sodium Acetate 90 meq/Potassium Chloride 50 meq/ Potassium Phosphate 13.6 mmol/Magnesium Sulfate 15 meq/ Calcium Gluconate 5 meq/ Multivitamins 10 ml/Chromium/ Copper/Manganese/ Seleni/Zn 1 ml/ Total Parenteral Nutrition/Amino Acids/Dextrose/ Fat Emulsion Intravenous 1,512 ml @ 63 mls/hr TPN CONT 12/29/18 22:00 12/30/18 21:59 DC 12/29/18 21:40 63 MLS/HR Sodium Acetate 90 meq/Potassium Chloride 50 meq/ Potassium Phosphate 13.6 mmol/Magnesium Sulfate 18 meq/ Calcium Gluconate 5 meq/ Multivitamins 10 ml/Chromium/ Copper/Manganese/ Seleni/Zn 1 ml/ Total Parenteral Nutrition/Amino Acids/Dextrose/ Fat Emulsion Intravenous 1,512 ml @ 63 mls/hr TPN CONT 12/26/18 22:00 12/28/18 01:28 DC 12/26/18 21:37 63 MLS/HR Sodium Chloride (SODIUM CHLORIDE 20ml) 20 ml STK-MED ONCE 12/30/18 15:01 12/30/18 15:02 DC Sodium Chloride 45 meq/Sodium Acetate 45 meq/ Potassium Chloride 50 meq/ Potassium Phosphate 20.4 mmol/Magnesium Sulfate 18 meq/ Calcium Gluconate 5 meq/ Multivitamins 10 ml/Chromium/ Copper/Manganese/ Seleni/Zn 1 ml/ Total Parenteral Nutrition/Amino Acids/Dextrose/ Fat Emuls... 1,512 ml @ 63 mls/hr TPN CONT 12/25/18 22:00 12/26/18 21:59 DC 12/26/18 00:34 63 MLS/HR Sodium Chloride 90 meq/Potassium Chloride 50 meq/ Potassium Phosphate 13.6 mmol/Magnesium Sulfate 15 meq/ Multivitamins 10 ml/Chromium/ Copper/Manganese/ Seleni/Zn 1 ml/ Total Parenteral Nutrition/Amino Acids/Dextrose/ Fat Emulsion Intravenous 1,512 ml @ 63 mls/hr TPN CONT 12/30/18 22:00 12/31/18 21:59 12/30/18 23:43 63 MLS/HR Sodium Chloride 90 meq/Potassium Chloride 50 meq/ Potassium Phosphate 20.4 mmol/Magnesium Sulfate 18 meq/ Calcium Gluconate 5 meq/ Multivitamins 10 ml/Chromium/ Copper/Manganese/ Seleni/Zn 1 ml/ Total Parenteral Nutrition/Amino Acids/Dextrose/ Fat Emulsion Intravenous 1,512 ml @ 63 mls/hr TPN CONT 12/23/18 22:00 12/24/18 21:59 DC 12/23/18 21:37 63 MLS/HR Spironolactone (Aldactone) 25 mg DAILY 12/14/18 17:00 12/26/18 10:42 25 MG Succinylcholine Chloride (Anectine) 200 mg STK-MED ONCE 12/30/18 12:51 12/30/18 12:52 DC Throat Lozenges (Cepacol Sore Throat Lozenge) 1 stella PRN Q2HRS PRN 12/18/18 14:00 12/26/18 10:01 1 STELLA Vasopressin (Vasostrict) 20 unit STK-MED ONCE 12/30/18 15:00 12/30/18 15:01 DC Labs: Lab Laboratory Tests Test 12/30/18 08:20 12/30/18 12:19 12/30/18 16:30 12/30/18 17:12 Urine Collection Type U cath Urine Color Yellow Urine Clarity Clear Urine pH 5.5 Urine Specific [place] >=1.030 Urine Protein 30 mg/dL (NEG-TRACE) Urine Glucose (UA) 500 mg/dL (NEG) Urine Ketones (Stick) Negative mg/dL (NEG) Urine Blood Negative (NEG) Urine Nitrite Negative (NEG) Urine Bilirubin Negative (NEG) Urine Urobilinogen Dipstick 0.2 mg/dL (0.2 mg/dL) Urine Leukocyte Esterase Negative (NEG) Urine RBC Occ /HPF (0-2) Urine WBC 1-4 /HPF (0-4) Urine Squamous Epithelial Cells Many /LPF Urine Amorphous Sediment Present /HPF Urine Bacteria Few /HPF (0-FEW) Urine Mucus Slight /LPF Glucose (Fingerstick) 255 mg/dL (70-99) 233 mg/dL (70-99) O2 Saturation 92 % (92-99) Arterial Blood pH 7.41 (7.35-7.45) Arterial Blood pCO2 at Patient Temp 42 mmHg (35-46) Arterial Blood pO2 at Patient Temp 72 mmHg (65-108) Arterial Blood HCO3 26 mmol/L (21-28) Arterial Blood Base Excess 2 mmol/L (-3-3) FiO2 60 Test 12/30/18 23:59 12/31/18 05:50 12/31/18 05:51 Glucose (Fingerstick) 256 mg/dL (70-99) 248 mg/dL (70-99) White Blood Count 18.5 x10^3/uL (4.0-11.0) Red Blood Count 3.18 x10^6/uL (3.50-5.40) Hemoglobin 7.4 g/dL (12.0-15.5) Hematocrit 24.4 % (36.0-47.0) Mean Corpuscular Volume 77 fL (79-100) Mean Corpuscular Hemoglobin 23 pg (25-35) Mean Corpuscular Hemoglobin Concent 30 g/dL (31-37) Red Cell Distribution Width 23.6 % (11.5-14.5) Platelet Count 331 x10^3/uL (140-400) Neutrophils (%) (Auto) 91 % (31-73) Lymphocytes (%) (Auto) 5 % (24-48) Monocytes (%) (Auto) 5 % (0-9) Eosinophils (%) (Auto) 0 % (0-3) Basophils (%) (Auto) 0 % (0-3) Neutrophils # (Auto) 16.7 x10^3uL (1.8-7.7) Lymphocytes # (Auto) 0.9 x10^3/uL (1.0-4.8) Monocytes # (Auto) 0.8 x10^3/uL (0.0-1.1) Eosinophils # (Auto) 0.0 x10^3/uL (0.0-0.7) Basophils # (Auto) 0.0 x10^3/uL (0.0-0.2) Sodium Level 145 mmol/L (136-145) Potassium Level 4.9 mmol/L (3.5-5.1) Chloride Level 108 mmol/L (98-107) Carbon Dioxide Level 33 mmol/L (21-32) Anion Gap 4 (6-14) Blood Urea Nitrogen 32 mg/dL (7-20) Creatinine 0.8 mg/dL (0.6-1.0) Estimated GFR (Cockcroft-Gault) 84.6 BUN/Creatinine Ratio 40 (6-20) Glucose Level 252 mg/dL (70-99) Calcium Level 8.8 mg/dL (8.5-10.1) Total Bilirubin 0.5 mg/dL (0.2-1.0) Aspartate Amino Transf (AST/SGOT) 21 U/L (15-37) Alanine Aminotransferase (ALT/SGPT) 20 U/L (14-59) Alkaline Phosphatase 48 U/L (46-116) Total Protein 5.3 g/dL (6.4-8.2) Albumin 2.3 g/dL (3.4-5.0) Albumin/Globulin Ratio 0.8 (1.0-1.7) Objective: Assessment: Small bowel obstruction at previous anastomotic site 12/30 S/P Exploratory laparotomy with extended right hemicolectomy and primary anastomosis Leukocytosis source intraabdominal from bowel obstruction likely postop S/P laparoscopic-assisted right colon resection and hemorrhoidectomy on 2018 for bleeding cecal ulcer and hemorrhoids; path negative for malignancy . Distention of small bowel likely representing obstruction. COPD Pneumonia sputum c/s nonrevealing Ileus Anemia Allergies to PCN Plan: Plan of Care cont merrem f/u c/s and labs in am maintain aspiration cont supportive care D/w MICHAEL SHEIKH MD Dec 31, 2018 07:28
[2018-12-31] MEDS: SPIRONOLACTONE 25 MG TABLET PO SCH (07:58)
[2018-12-31] MEDS: FERROUS SULFATE 325 MG TABLET. PO SCH (07:58)
[2018-12-31] MEDS: LOSARTAN POTASSIUM 50 MG TABLET. PO SCH (07:58)
[2018-12-31] MEDS: DULoxetine HCL 30 MG CAPSULE.DR PO SCH (07:58)
[2018-12-31] MEDS: DOCUSATE SODIUM 100 MG CAPSULE. PO SCH (07:58)
[2018-12-31] MEDS: amLODIPine BESYLATE 10 MG TABLET PO SCH (07:59)
[2018-12-31] MEDS: ASCORBIC ACID 500 MG TABLET PO SCH (07:59)
[2018-12-31] MEDS: MEMANTINE 10 MG TABLET. PO SCH ×2 (07:59→21:00)
[2018-12-31] MEDS: PANTOPRAZOLE IV PUSH 40 MG VIAL. IVP SCH (08:25)
[2018-12-31] MEDS: CHLORHEXIDINE 0.12% 15 ML MOUTHWASH. MM SCH ×2 (08:26→21:00)
[2018-12-31] MEDS: ENOXAPARIN 40 MG/0.4 ML SYRINGE. SQ SCH (08:26)
--- NOTE | 2018-12-31 08:41 | PDOC ---
PULMONARY PROGRESS NOTES Subjective PT WENT TO OR YESTERDAY NOW IN ICU OFF BIPAP O2 NC NOT MORE SOA Vitals Vital Signs Date Time Temp Pulse Resp B/P (MAP) Pulse Ox O2 Delivery O2 Flow Rate FiO2 12/31/18 08:00 98.1 83 19 110/67 (81) 99 Nasal Cannula 3.0 98.1 ROS: No Nausea, No Chest Pain, No Increase Cough General: Alert, No acute distress Lungs: Crackles Cardiovascular: S1 Abdomen: Soft, Other (distended) Neuro Exam: Alert Extremities: No Edema Skin: Warm Labs Laboratory Tests Test 12/29/18 12:01 12/29/18 18:05 12/30/18 05:45 12/30/18 08:20 Glucose (Fingerstick) 251 mg/dL (70-99) 212 mg/dL (70-99) White Blood Count 16.2 x10^3/uL (4.0-11.0) Red Blood Count 3.40 x10^6/uL (3.50-5.40) Hemoglobin 8.0 g/dL (12.0-15.5) Hematocrit 25.9 % (36.0-47.0) Mean Corpuscular Volume 76 fL (79-100) Mean Corpuscular Hemoglobin 24 pg (25-35) Mean Corpuscular Hemoglobin Concent 31 g/dL (31-37) Red Cell Distribution Width 23.6 % (11.5-14.5) Platelet Count 381 x10^3/uL (140-400) Neutrophils (%) (Auto) 85 % (31-73) Lymphocytes (%) (Auto) 7 % (24-48) Monocytes (%) (Auto) 6 % (0-9) Eosinophils (%) (Auto) 1 % (0-3) Basophils (%) (Auto) 1 % (0-3) Neutrophils # (Auto) 13.8 x10^3uL (1.8-7.7) Lymphocytes # (Auto) 1.2 x10^3/uL (1.0-4.8) Monocytes # (Auto) 1.0 x10^3/uL (0.0-1.1) Eosinophils # (Auto) 0.1 x10^3/uL (0.0-0.7) Basophils # (Auto) 0.1 x10^3/uL (0.0-0.2) Sodium Level 142 mmol/L (136-145) Potassium Level 4.5 mmol/L (3.5-5.1) Chloride Level 104 mmol/L (98-107) Carbon Dioxide Level 33 mmol/L (21-32) Anion Gap 5 (6-14) Blood Urea Nitrogen 33 mg/dL (7-20) Creatinine 0.8 mg/dL (0.6-1.0) Estimated GFR (Cockcroft-Gault) 84.6 BUN/Creatinine Ratio 41 (6-20) Glucose Level 260 mg/dL (70-99) Calcium Level 9.5 mg/dL (8.5-10.1) Phosphorus Level 4.2 mg/dL (2.6-4.7) Magnesium Level 2.1 mg/dL (1.8-2.4) Total Bilirubin 0.2 mg/dL (0.2-1.0) Aspartate Amino Transf (AST/SGOT) 26 U/L (15-37) Alanine Aminotransferase (ALT/SGPT) 22 U/L (14-59) Alkaline Phosphatase 70 U/L (46-116) Total Protein 6.7 g/dL (6.4-8.2) Albumin 2.3 g/dL (3.4-5.0) Albumin/Globulin Ratio 0.5 (1.0-1.7) Urine Collection Type U cath Urine Color Yellow Urine Clarity Clear Urine pH 5.5 Urine Specific [place] >=1.030 Urine Protein 30 mg/dL (NEG-TRACE) Urine Glucose (UA) 500 mg/dL (NEG) Urine Ketones (Stick) Negative mg/dL (NEG) Urine Blood Negative (NEG) Urine Nitrite Negative (NEG) Urine Bilirubin Negative (NEG) Urine Urobilinogen Dipstick 0.2 mg/dL (0.2 mg/dL) Urine Leukocyte Esterase Negative (NEG) Urine RBC Occ /HPF (0-2) Urine WBC 1-4 /HPF (0-4) Urine Squamous Epithelial Cells Many /LPF Urine Amorphous Sediment Present /HPF Urine Bacteria Few /HPF (0-FEW) Urine Mucus Slight /LPF Test 12/30/18 12:19 12/30/18 16:30 12/30/18 17:12 12/30/18 23:59 Glucose (Fingerstick) 255 mg/dL (70-99) 233 mg/dL (70-99) 256 mg/dL (70-99) O2 Saturation 92 % (92-99) Arterial Blood pH 7.41 (7.35-7.45) Arterial Blood pCO2 at Patient Temp 42 mmHg (35-46) Arterial Blood pO2 at Patient Temp 72 mmHg (65-108) Arterial Blood HCO3 26 mmol/L (21-28) Arterial Blood Base Excess 2 mmol/L (-3-3) FiO2 60 Test 12/31/18 05:50 12/31/18 05:51 White Blood Count 18.5 x10^3/uL (4.0-11.0) Red Blood Count 3.18 x10^6/uL (3.50-5.40) Hemoglobin 7.4 g/dL (12.0-15.5) Hematocrit 24.4 % (36.0-47.0) Mean Corpuscular Volume 77 fL (79-100) Mean Corpuscular Hemoglobin 23 pg (25-35) Mean Corpuscular Hemoglobin Concent 30 g/dL (31-37) Red Cell Distribution Width 23.6 % (11.5-14.5) Platelet Count 331 x10^3/uL (140-400) Neutrophils (%) (Auto) 91 % (31-73) Lymphocytes (%) (Auto) 5 % (24-48) Monocytes (%) (Auto) 5 % (0-9) Eosinophils (%) (Auto) 0 % (0-3) Basophils (%) (Auto) 0 % (0-3) Neutrophils # (Auto) 16.7 x10^3uL (1.8-7.7) Lymphocytes # (Auto) 0.9 x10^3/uL (1.0-4.8) Monocytes # (Auto) 0.8 x10^3/uL (0.0-1.1) Eosinophils # (Auto) 0.0 x10^3/uL (0.0-0.7) Basophils # (Auto) 0.0 x10^3/uL (0.0-0.2) Sodium Level 145 mmol/L (136-145) Potassium Level 4.9 mmol/L (3.5-5.1) Chloride Level 108 mmol/L (98-107) Carbon Dioxide Level 33 mmol/L (21-32) Anion Gap 4 (6-14) Blood Urea Nitrogen 32 mg/dL (7-20) Creatinine 0.8 mg/dL (0.6-1.0) Estimated GFR (Cockcroft-Gault) 84.6 BUN/Creatinine Ratio 40 (6-20) Glucose Level 252 mg/dL (70-99) Calcium Level 8.8 mg/dL (8.5-10.1) Total Bilirubin 0.5 mg/dL (0.2-1.0) Aspartate Amino Transf (AST/SGOT) 21 U/L (15-37) Alanine Aminotransferase (ALT/SGPT) 20 U/L (14-59) Alkaline Phosphatase 48 U/L (46-116) Total Protein 5.3 g/dL (6.4-8.2) Albumin 2.3 g/dL (3.4-5.0) Albumin/Globulin Ratio 0.8 (1.0-1.7) Glucose (Fingerstick) 248 mg/dL (70-99) Laboratory Tests Test 12/30/18 12:19 12/30/18 16:30 12/30/18 17:12 12/30/18 23:59 Glucose (Fingerstick) 255 mg/dL (70-99) 233 mg/dL (70-99) 256 mg/dL (70-99) O2 Saturation 92 % (92-99) Arterial Blood pH 7.41 (7.35-7.45) Arterial Blood pCO2 at Patient Temp 42 mmHg (35-46) Arterial Blood pO2 at Patient Temp 72 mmHg (65-108) Arterial Blood HCO3 26 mmol/L (21-28) Arterial Blood Base Excess 2 mmol/L (-3-3) FiO2 60 Test 12/31/18 05:50 12/31/18 05:51 White Blood Count 18.5 x10^3/uL (4.0-11.0) Red Blood Count 3.18 x10^6/uL (3.50-5.40) Hemoglobin 7.4 g/dL (12.0-15.5) Hematocrit 24.4 % (36.0-47.0) Mean Corpuscular Volume 77 fL (79-100) Mean Corpuscular Hemoglobin 23 pg (25-35) Mean Corpuscular Hemoglobin Concent 30 g/dL (31-37) Red Cell Distribution Width 23.6 % (11.5-14.5) Platelet Count 331 x10^3/uL (140-400) Neutrophils (%) (Auto) 91 % (31-73) Lymphocytes (%) (Auto) 5 % (24-48) Monocytes (%) (Auto) 5 % (0-9) Eosinophils (%) (Auto) 0 % (0-3) Basophils (%) (Auto) 0 % (0-3) Neutrophils # (Auto) 16.7 x10^3uL (1.8-7.7) Lymphocytes # (Auto) 0.9 x10^3/uL (1.0-4.8) Monocytes # (Auto) 0.8 x10^3/uL (0.0-1.1) Eosinophils # (Auto) 0.0 x10^3/uL (0.0-0.7) Basophils # (Auto) 0.0 x10^3/uL (0.0-0.2) Sodium Level 145 mmol/L (136-145) Potassium Level 4.9 mmol/L (3.5-5.1) Chloride Level 108 mmol/L (98-107) Carbon Dioxide Level 33 mmol/L (21-32) Anion Gap 4 (6-14) Blood Urea Nitrogen 32 mg/dL (7-20) Creatinine 0.8 mg/dL (0.6-1.0) Estimated GFR (Cockcroft-Gault) 84.6 BUN/Creatinine Ratio 40 (6-20) Glucose Level 252 mg/dL (70-99) Calcium Level 8.8 mg/dL (8.5-10.1) Total Bilirubin 0.5 mg/dL (0.2-1.0) Aspartate Amino Transf (AST/SGOT) 21 U/L (15-37) Alanine Aminotransferase (ALT/SGPT) 20 U/L (14-59) Alkaline Phosphatase 48 U/L (46-116) Total Protein 5.3 g/dL (6.4-8.2) Albumin 2.3 g/dL (3.4-5.0) Albumin/Globulin Ratio 0.8 (1.0-1.7) Glucose (Fingerstick) 248 mg/dL (70-99) Medications Active Scripts Medications Dose Route/Sig Max Daily Dose Days Date Category Chlorhexidine Gluconate 473 Ml Mouthwash 473 Ml MM BID 7 12/10/18 Rx Vitamin C (Ascorbate Calcium) 500 Mg Tablet 500 Mg PO DAILY 30 11/22/18 Rx Slow Release Iron (Ferrous Sulfate) 250 Mg Tablet.er 250 Mg PO DAILY 30 11/22/18 Rx Protonix (Pantoprazole Sodium) 40 Mg Granpkt.dr 40 Mg PO DAILY 30 11/22/18 Rx Metformin Hcl Er (Metformin Hcl) 500 Mg Tab.er.24h 1 Tab PO DAILY 11/12/16 Reported Namenda (Memantine Hcl) 10 Mg Tablet 1 Tab PO BID 11/12/16 Reported Losartan Potassium 100 Mg Tablet 100 Mg PO DAILY 11/12/16 Reported Spironolactone 25 Mg Tablet 1 Tab PO DAILY 11/12/16 Reported Ventolin Hfa Inhaler (Albuterol Sulfate) 18 Gm Hfa.aer.ad 2 Puff INH Q4HRS 11/11/16 Reported Cymbalta (Duloxetine Hcl) 20 Mg Capsule.dr 90 Mg PO DAILY 01/27/16 Reported Requip (Ropinirole Hcl) 1 Mg Tablet 3 Mg PO DAILY 01/27/16 Reported Amlodipine Besylate 10 Mg Tablet 10 Mg PO DAILY 01/27/16 Reported Impression . 1. Acute hypoxic respiratory failure MULTIFACTORIAL EXPECTED POST SURGICAL INTERVENTION 2. Gastrointestinal bleed/cecal ulceration by colonoscopy, status post laparoscopic-assisted right colon resection and hemorrhoidectomy 12/17 3. ileus S/P SECOND SURGERY 12/30 SEE BELOW 4. Underlying chronic obstructive pulmonary disease. 5. Abnormal CT chest with focal opacity in the right upper lobe, could be nodule/ATELECTASIS Date: 12/17/2018 Preoperative diagnosis: GI bleed cecal ulceration by colonoscopy with active bleeding hemorrhoids Postoperative diagnosis: Same Procedure: Laparoscopic-assisted right colon resection and hemorrhoidectomy Surgeon: Jan Specimen: Right colon and hemorrhoids Date: 12/30/2018 Preoperative diagnosis: Small bowel obstruction Postoperative diagnosis: Small bowel obstruction at previous anastomotic site Procedure: Exploratory laparotomy with extended right hemicolectomy and primary anastomosis Plan . CXR IN AM UP TO CHAIR ICE CHIPS OK CONTINUE SUPPORT NG ASPIRATE PER SURGEON IS NEBS FOLLOW UP CT IN 4 MONTHS D/W DAUGHTER AT BEDSIDE MARIA ALEJANDRA VALENTINE MD Dec 31, 2018 08:41
--- NOTE | 2018-12-31 09:13 | PDOC ---
SURGICAL PROGRESS NOTE Subjective Patient awake and alert this morning to describe difficult night with pain but better controlled now. Vital Signs Vital Signs Date Time Temp Pulse Resp B/P (MAP) Pulse Ox O2 Delivery O2 Flow Rate FiO2 12/31/18 08:00 98.1 83 19 110/67 (81) 99 Nasal Cannula 3.0 98.1 I&O Intake and Output 12/31/18 07:00 Intake Total 3168 ml Output Total 4175 ml Balance -1007 ml Intake Oral 0 ml IV Total 3168 ml Output Urine Total 1175 ml Gastric Drainage Total 2850 ml Estimated Blood Loss 150 ml PATIENT HAS A PILLAI: Yes General: Alert, Oriented X3, Cooperative, moderate distress Abdomen: Soft, Other (incisional tenderness mildly distended hypoactive bowel sounds NG tube in place with only 150 mL overnight) Labs Laboratory Tests Test 12/29/18 12:01 12/29/18 18:05 12/30/18 05:45 12/30/18 08:20 Glucose (Fingerstick) 251 mg/dL (70-99) 212 mg/dL (70-99) White Blood Count 16.2 x10^3/uL (4.0-11.0) Red Blood Count 3.40 x10^6/uL (3.50-5.40) Hemoglobin 8.0 g/dL (12.0-15.5) Hematocrit 25.9 % (36.0-47.0) Mean Corpuscular Volume 76 fL (79-100) Mean Corpuscular Hemoglobin 24 pg (25-35) Mean Corpuscular Hemoglobin Concent 31 g/dL (31-37) Red Cell Distribution Width 23.6 % (11.5-14.5) Platelet Count 381 x10^3/uL (140-400) Neutrophils (%) (Auto) 85 % (31-73) Lymphocytes (%) (Auto) 7 % (24-48) Monocytes (%) (Auto) 6 % (0-9) Eosinophils (%) (Auto) 1 % (0-3) Basophils (%) (Auto) 1 % (0-3) Neutrophils # (Auto) 13.8 x10^3uL (1.8-7.7) Lymphocytes # (Auto) 1.2 x10^3/uL (1.0-4.8) Monocytes # (Auto) 1.0 x10^3/uL (0.0-1.1) Eosinophils # (Auto) 0.1 x10^3/uL (0.0-0.7) Basophils # (Auto) 0.1 x10^3/uL (0.0-0.2) Sodium Level 142 mmol/L (136-145) Potassium Level 4.5 mmol/L (3.5-5.1) Chloride Level 104 mmol/L (98-107) Carbon Dioxide Level 33 mmol/L (21-32) Anion Gap 5 (6-14) Blood Urea Nitrogen 33 mg/dL (7-20) Creatinine 0.8 mg/dL (0.6-1.0) Estimated GFR (Cockcroft-Gault) 84.6 BUN/Creatinine Ratio 41 (6-20) Glucose Level 260 mg/dL (70-99) Calcium Level 9.5 mg/dL (8.5-10.1) Phosphorus Level 4.2 mg/dL (2.6-4.7) Magnesium Level 2.1 mg/dL (1.8-2.4) Total Bilirubin 0.2 mg/dL (0.2-1.0) Aspartate Amino Transf (AST/SGOT) 26 U/L (15-37) Alanine Aminotransferase (ALT/SGPT) 22 U/L (14-59) Alkaline Phosphatase 70 U/L (46-116) Total Protein 6.7 g/dL (6.4-8.2) Albumin 2.3 g/dL (3.4-5.0) Albumin/Globulin Ratio 0.5 (1.0-1.7) Urine Collection Type U cath Urine Color Yellow Urine Clarity Clear Urine pH 5.5 Urine Specific [place] >=1.030 Urine Protein 30 mg/dL (NEG-TRACE) Urine Glucose (UA) 500 mg/dL (NEG) Urine Ketones (Stick) Negative mg/dL (NEG) Urine Blood Negative (NEG) Urine Nitrite Negative (NEG) Urine Bilirubin Negative (NEG) Urine Urobilinogen Dipstick 0.2 mg/dL (0.2 mg/dL) Urine Leukocyte Esterase Negative (NEG) Urine RBC Occ /HPF (0-2) Urine WBC 1-4 /HPF (0-4) Urine Squamous Epithelial Cells Many /LPF Urine Amorphous Sediment Present /HPF Urine Bacteria Few /HPF (0-FEW) Urine Mucus Slight /LPF Test 12/30/18 12:19 12/30/18 16:30 12/30/18 17:12 12/30/18 23:59 Glucose (Fingerstick) 255 mg/dL (70-99) 233 mg/dL (70-99) 256 mg/dL (70-99) O2 Saturation 92 % (92-99) Arterial Blood pH 7.41 (7.35-7.45) Arterial Blood pCO2 at Patient Temp 42 mmHg (35-46) Arterial Blood pO2 at Patient Temp 72 mmHg (65-108) Arterial Blood HCO3 26 mmol/L (21-28) Arterial Blood Base Excess 2 mmol/L (-3-3) FiO2 60 Test 12/31/18 05:50 12/31/18 05:51 White Blood Count 18.5 x10^3/uL (4.0-11.0) Red Blood Count 3.18 x10^6/uL (3.50-5.40) Hemoglobin 7.4 g/dL (12.0-15.5) Hematocrit 24.4 % (36.0-47.0) Mean Corpuscular Volume 77 fL (79-100) Mean Corpuscular Hemoglobin 23 pg (25-35) Mean Corpuscular Hemoglobin Concent 30 g/dL (31-37) Red Cell Distribution Width 23.6 % (11.5-14.5) Platelet Count 331 x10^3/uL (140-400) Neutrophils (%) (Auto) 91 % (31-73) Lymphocytes (%) (Auto) 5 % (24-48) Monocytes (%) (Auto) 5 % (0-9) Eosinophils (%) (Auto) 0 % (0-3) Basophils (%) (Auto) 0 % (0-3) Neutrophils # (Auto) 16.7 x10^3uL (1.8-7.7) Lymphocytes # (Auto) 0.9 x10^3/uL (1.0-4.8) Monocytes # (Auto) 0.8 x10^3/uL (0.0-1.1) Eosinophils # (Auto) 0.0 x10^3/uL (0.0-0.7) Basophils # (Auto) 0.0 x10^3/uL (0.0-0.2) Sodium Level 145 mmol/L (136-145) Potassium Level 4.9 mmol/L (3.5-5.1) Chloride Level 108 mmol/L (98-107) Carbon Dioxide Level 33 mmol/L (21-32) Anion Gap 4 (6-14) Blood Urea Nitrogen 32 mg/dL (7-20) Creatinine 0.8 mg/dL (0.6-1.0) Estimated GFR (Cockcroft-Gault) 84.6 BUN/Creatinine Ratio 40 (6-20) Glucose Level 252 mg/dL (70-99) Calcium Level 8.8 mg/dL (8.5-10.1) Total Bilirubin 0.5 mg/dL (0.2-1.0) Aspartate Amino Transf (AST/SGOT) 21 U/L (15-37) Alanine Aminotransferase (ALT/SGPT) 20 U/L (14-59) Alkaline Phosphatase 48 U/L (46-116) Total Protein 5.3 g/dL (6.4-8.2) Albumin 2.3 g/dL (3.4-5.0) Albumin/Globulin Ratio 0.8 (1.0-1.7) Glucose (Fingerstick) 248 mg/dL (70-99) Laboratory Tests Test 12/30/18 12:19 12/30/18 16:30 12/30/18 17:12 12/30/18 23:59 Glucose (Fingerstick) 255 mg/dL (70-99) 233 mg/dL (70-99) 256 mg/dL (70-99) O2 Saturation 92 % (92-99) Arterial Blood pH 7.41 (7.35-7.45) Arterial Blood pCO2 at Patient Temp 42 mmHg (35-46) Arterial Blood pO2 at Patient Temp 72 mmHg (65-108) Arterial Blood HCO3 26 mmol/L (21-28) Arterial Blood Base Excess 2 mmol/L (-3-3) FiO2 60 Test 12/31/18 05:50 12/31/18 05:51 White Blood Count 18.5 x10^3/uL (4.0-11.0) Red Blood Count 3.18 x10^6/uL (3.50-5.40) Hemoglobin 7.4 g/dL (12.0-15.5) Hematocrit 24.4 % (36.0-47.0) Mean Corpuscular Volume 77 fL (79-100) Mean Corpuscular Hemoglobin 23 pg (25-35) Mean Corpuscular Hemoglobin Concent 30 g/dL (31-37) Red Cell Distribution Width 23.6 % (11.5-14.5) Platelet Count 331 x10^3/uL (140-400) Neutrophils (%) (Auto) 91 % (31-73) Lymphocytes (%) (Auto) 5 % (24-48) Monocytes (%) (Auto) 5 % (0-9) Eosinophils (%) (Auto) 0 % (0-3) Basophils (%) (Auto) 0 % (0-3) Neutrophils # (Auto) 16.7 x10^3uL (1.8-7.7) Lymphocytes # (Auto) 0.9 x10^3/uL (1.0-4.8) Monocytes # (Auto) 0.8 x10^3/uL (0.0-1.1) Eosinophils # (Auto) 0.0 x10^3/uL (0.0-0.7) Basophils # (Auto) 0.0 x10^3/uL (0.0-0.2) Sodium Level 145 mmol/L (136-145) Potassium Level 4.9 mmol/L (3.5-5.1) Chloride Level 108 mmol/L (98-107) Carbon Dioxide Level 33 mmol/L (21-32) Anion Gap 4 (6-14) Blood Urea Nitrogen 32 mg/dL (7-20) Creatinine 0.8 mg/dL (0.6-1.0) Estimated GFR (Cockcroft-Gault) 84.6 BUN/Creatinine Ratio 40 (6-20) Glucose Level 252 mg/dL (70-99) Calcium Level 8.8 mg/dL (8.5-10.1) Total Bilirubin 0.5 mg/dL (0.2-1.0) Aspartate Amino Transf (AST/SGOT) 21 U/L (15-37) Alanine Aminotransferase (ALT/SGPT) 20 U/L (14-59) Alkaline Phosphatase 48 U/L (46-116) Total Protein 5.3 g/dL (6.4-8.2) Albumin 2.3 g/dL (3.4-5.0) Albumin/Globulin Ratio 0.8 (1.0-1.7) Glucose (Fingerstick) 248 mg/dL (70-99) Assessment/Plan Status post exporter laparotomy with right extended hemicolectomy and decompression of the small bowel Awaiting return of bowel function, supportive care Surgical standpoint could be transferred out of the intensive care unit DAYLIN WEI MD Dec 31, 2018 09:13
[2018-12-31] MEDS: IV RINGERS,LACTATED 1000ML 1,000 ML IV SCH ×2 (10:10→18:22)
--- NOTE | 2018-12-31 10:17 | PDOC ---
Subjective: Subjective: Doing okay. Objective: Objective: On TPN and IV PPI. Per RN - stable, wonders about transfer out of ICU, less NG output. Vital Signs: Vital Signs Date Time Temp Pulse Resp B/P (MAP) Pulse Ox O2 Delivery O2 Flow Rate FiO2 12/31/18 10:10 Nasal Cannula 3.0 12/31/18 09:09 97 12/31/18 09:00 87 22 113/74 (87) 12/31/18 08:00 98.1 98.1 Labs: Laboratory Tests Test 12/30/18 12:19 12/30/18 17:12 12/30/18 23:59 12/31/18 05:51 Glucose (Fingerstick) 255 mg/dL (70-99) 233 mg/dL (70-99) 256 mg/dL (70-99) 248 mg/dL (70-99) PE: GEN: NAD though seems a bit restless LUNGS: NC HEART: RRR ABD: some distention, dressing dry/intact NEURO/PSYCH: A & O 3 A/P: Recurrent GI bleeding s/p right colon resection and hemorrhoidectomy 12/17/18 SBO s/p expl lap w/ extended right hemicolectomy and primary anastomosis Anemia (Hgb drift to 7.4 post-op), leukocytosis (worse - ?reactive) COPD -- Continue per surgery. Monitor Hgb, transfuse as needed. RADHA JUSTICE Dec 31, 2018 10:16
--- NOTE | 2018-12-31 12:06 | PDOC ---
PROGRESS NOTES Chief Complaint Chief Complaint CC: Anemia, colonic Avms Acute hypoxic respiratory failure Cecal ulceration - s/p rt colon resection and hemorrhoidectomy 12/17 SBO - s/p ex lap, extended rt hemicolectomy POD1 VISHNU COPD Sepsis/Leukopenia - cefepime, ID following History of Present Illness History of Present Illness Pt is a 73 y/o female who is s/p rt colon resection and hemorrhoidectomy on and s/p ex lap, extended rt hemicolectomy POD1. Today she was seen and examined in the ICU. She resting and in mild distress. She has no new complaints at this time. I discussed with her daughter and her RN. Her dressing is clean, dry and intact. She has philippe to BSD, on O2, SCD. Vitals Vitals Vital Signs Date Time Temp Pulse Resp B/P (MAP) Pulse Ox O2 Delivery O2 Flow Rate FiO2 12/31/18 10:51 Nasal Cannula 3.0 12/31/18 10:00 85 22 117/72 (87) 98 12/31/18 08:00 98.1 98.1 Physical Exam Physical Exam GENERAL: awake alert HEENT:no icterus, ngt + NECK: Supple LUNGS: Clear anteriorly HEART: S1, S2 ABDOMEN: Distended, soft, hypoactive BS. dressings dry EXTREMITIES: No edema or cyanosis. SKIN: No rash. Rectal wound clean NEUROLOGIC: alert awake Philippe in place RUE-PICC (12/23) clean General: Alert, Oriented X3, Cooperative, moderate distress Heart: Regular rate, Normal S1, Normal S2, No murmurs Lungs: Crackles Abdomen: Soft, Other (dressing clean, dry and intact. TTP throughout) Extremities: No clubbing, No cyanosis, No edema Skin: No significant lesion Labs LABS Laboratory Tests Test 12/30/18 12:19 12/30/18 16:30 12/30/18 17:12 12/30/18 23:59 Glucose (Fingerstick) 255 mg/dL (70-99) 233 mg/dL (70-99) 256 mg/dL (70-99) O2 Saturation 92 % (92-99) Arterial Blood pH 7.41 (7.35-7.45) Arterial Blood pCO2 at Patient Temp 42 mmHg (35-46) Arterial Blood pO2 at Patient Temp 72 mmHg (65-108) Arterial Blood HCO3 26 mmol/L (21-28) Arterial Blood Base Excess 2 mmol/L (-3-3) FiO2 60 Test 12/31/18 05:50 12/31/18 05:51 White Blood Count 18.5 x10^3/uL (4.0-11.0) Red Blood Count 3.18 x10^6/uL (3.50-5.40) Hemoglobin 7.4 g/dL (12.0-15.5) Hematocrit 24.4 % (36.0-47.0) Mean Corpuscular Volume 77 fL (79-100) Mean Corpuscular Hemoglobin 23 pg (25-35) Mean Corpuscular Hemoglobin Concent 30 g/dL (31-37) Red Cell Distribution Width 23.6 % (11.5-14.5) Platelet Count 331 x10^3/uL (140-400) Neutrophils (%) (Auto) 91 % (31-73) Lymphocytes (%) (Auto) 5 % (24-48) Monocytes (%) (Auto) 5 % (0-9) Eosinophils (%) (Auto) 0 % (0-3) Basophils (%) (Auto) 0 % (0-3) Neutrophils # (Auto) 16.7 x10^3uL (1.8-7.7) Lymphocytes # (Auto) 0.9 x10^3/uL (1.0-4.8) Monocytes # (Auto) 0.8 x10^3/uL (0.0-1.1) Eosinophils # (Auto) 0.0 x10^3/uL (0.0-0.7) Basophils # (Auto) 0.0 x10^3/uL (0.0-0.2) Sodium Level 145 mmol/L (136-145) Potassium Level 4.9 mmol/L (3.5-5.1) Chloride Level 108 mmol/L (98-107) Carbon Dioxide Level 33 mmol/L (21-32) Anion Gap 4 (6-14) Blood Urea Nitrogen 32 mg/dL (7-20) Creatinine 0.8 mg/dL (0.6-1.0) Estimated GFR (Cockcroft-Gault) 84.6 BUN/Creatinine Ratio 40 (6-20) Glucose Level 252 mg/dL (70-99) Calcium Level 8.8 mg/dL (8.5-10.1) Total Bilirubin 0.5 mg/dL (0.2-1.0) Aspartate Amino Transf (AST/SGOT) 21 U/L (15-37) Alanine Aminotransferase (ALT/SGPT) 20 U/L (14-59) Alkaline Phosphatase 48 U/L (46-116) Total Protein 5.3 g/dL (6.4-8.2) Albumin 2.3 g/dL (3.4-5.0) Albumin/Globulin Ratio 0.8 (1.0-1.7) Glucose (Fingerstick) 248 mg/dL (70-99) Review of Systems Review of Systems Gen: denies fever, chills Heart: denies CP, palp Lung: mild SOA, cough GI: abdominal pain, denies N/V Assessment and Plan Assessmemt and Plan Assessment CC: Anemia, colonic Avms Acute hypoxic respiratory failure Cecal ulceration - s/p rt colon resection and hemorrhoidectomy 12/17 SBO - s/p ex lap, extended rt hemicolectomy POD1 VISHNU COPD Sepsis/Leukopenia - cefepime, ID following Plan Wound care Abx - IV meropenem, ID following TPN BiPAP PRN Breathing treatments PRN PRN narcotics Follow labs PT/OT Home meds Appreciate subspecialist input Comment Review of Relevant I have reviewed the following items abdifatah (where applicable) has been applied. Labs Laboratory Tests Test 12/29/18 18:05 12/30/18 05:45 12/30/18 08:20 12/30/18 12:19 Glucose (Fingerstick) 212 mg/dL (70-99) 255 mg/dL (70-99) White Blood Count 16.2 x10^3/uL (4.0-11.0) Red Blood Count 3.40 x10^6/uL (3.50-5.40) Hemoglobin 8.0 g/dL (12.0-15.5) Hematocrit 25.9 % (36.0-47.0) Mean Corpuscular Volume 76 fL (79-100) Mean Corpuscular Hemoglobin 24 pg (25-35) Mean Corpuscular Hemoglobin Concent 31 g/dL (31-37) Red Cell Distribution Width 23.6 % (11.5-14.5) Platelet Count 381 x10^3/uL (140-400) Neutrophils (%) (Auto) 85 % (31-73) Lymphocytes (%) (Auto) 7 % (24-48) Monocytes (%) (Auto) 6 % (0-9) Eosinophils (%) (Auto) 1 % (0-3) Basophils (%) (Auto) 1 % (0-3) Neutrophils # (Auto) 13.8 x10^3uL (1.8-7.7) Lymphocytes # (Auto) 1.2 x10^3/uL (1.0-4.8) Monocytes # (Auto) 1.0 x10^3/uL (0.0-1.1) Eosinophils # (Auto) 0.1 x10^3/uL (0.0-0.7) Basophils # (Auto) 0.1 x10^3/uL (0.0-0.2) Sodium Level 142 mmol/L (136-145) Potassium Level 4.5 mmol/L (3.5-5.1) Chloride Level 104 mmol/L (98-107) Carbon Dioxide Level 33 mmol/L (21-32) Anion Gap 5 (6-14) Blood Urea Nitrogen 33 mg/dL (7-20) Creatinine 0.8 mg/dL (0.6-1.0) Estimated GFR (Cockcroft-Gault) 84.6 BUN/Creatinine Ratio 41 (6-20) Glucose Level 260 mg/dL (70-99) Calcium Level 9.5 mg/dL (8.5-10.1) Phosphorus Level 4.2 mg/dL (2.6-4.7) Magnesium Level 2.1 mg/dL (1.8-2.4) Total Bilirubin 0.2 mg/dL (0.2-1.0) Aspartate Amino Transf (AST/SGOT) 26 U/L (15-37) Alanine Aminotransferase (ALT/SGPT) 22 U/L (14-59) Alkaline Phosphatase 70 U/L (46-116) Total Protein 6.7 g/dL (6.4-8.2) Albumin 2.3 g/dL (3.4-5.0) Albumin/Globulin Ratio 0.5 (1.0-1.7) Urine Collection Type U cath Urine Color Yellow Urine Clarity Clear Urine pH 5.5 Urine Specific Leonard >=1.030 Urine Protein 30 mg/dL (NEG-TRACE) Urine Glucose (UA) 500 mg/dL (NEG) Urine Ketones (Stick) Negative mg/dL (NEG) Urine Blood Negative (NEG) Urine Nitrite Negative (NEG) Urine Bilirubin Negative (NEG) Urine Urobilinogen Dipstick 0.2 mg/dL (0.2 mg/dL) Urine Leukocyte Esterase Negative (NEG) Urine RBC Occ /HPF (0-2) Urine WBC 1-4 /HPF (0-4) Urine Squamous Epithelial Cells Many /LPF Urine Amorphous Sediment Present /HPF Urine Bacteria Few /HPF (0-FEW) Urine Mucus Slight /LPF Test 12/30/18 16:30 12/30/18 17:12 12/30/18 23:59 12/31/18 05:50 O2 Saturation 92 % (92-99) Arterial Blood pH 7.41 (7.35-7.45) Arterial Blood pCO2 at Patient Temp 42 mmHg (35-46) Arterial Blood pO2 at Patient Temp 72 mmHg (65-108) Arterial Blood HCO3 26 mmol/L (21-28) Arterial Blood Base Excess 2 mmol/L (-3-3) FiO2 60 Glucose (Fingerstick) 233 mg/dL (70-99) 256 mg/dL (70-99) White Blood Count 18.5 x10^3/uL (4.0-11.0) Red Blood Count 3.18 x10^6/uL (3.50-5.40) Hemoglobin 7.4 g/dL (12.0-15.5) Hematocrit 24.4 % (36.0-47.0) Mean Corpuscular Volume 77 fL (79-100) Mean Corpuscular Hemoglobin 23 pg (25-35) Mean Corpuscular Hemoglobin Concent 30 g/dL (31-37) Red Cell Distribution Width 23.6 % (11.5-14.5) Platelet Count 331 x10^3/uL (140-400) Neutrophils (%) (Auto) 91 % (31-73) Lymphocytes (%) (Auto) 5 % (24-48) Monocytes (%) (Auto) 5 % (0-9) Eosinophils (%) (Auto) 0 % (0-3) Basophils (%) (Auto) 0 % (0-3) Neutrophils # (Auto) 16.7 x10^3uL (1.8-7.7) Lymphocytes # (Auto) 0.9 x10^3/uL (1.0-4.8) Monocytes # (Auto) 0.8 x10^3/uL (0.0-1.1) Eosinophils # (Auto) 0.0 x10^3/uL (0.0-0.7) Basophils # (Auto) 0.0 x10^3/uL (0.0-0.2) Sodium Level 145 mmol/L (136-145) Potassium Level 4.9 mmol/L (3.5-5.1) Chloride Level 108 mmol/L (98-107) Carbon Dioxide Level 33 mmol/L (21-32) Anion Gap 4 (6-14) Blood Urea Nitrogen 32 mg/dL (7-20) Creatinine 0.8 mg/dL (0.6-1.0) Estimated GFR (Cockcroft-Gault) 84.6 BUN/Creatinine Ratio 40 (6-20) Glucose Level 252 mg/dL (70-99) Calcium Level 8.8 mg/dL (8.5-10.1) Total Bilirubin 0.5 mg/dL (0.2-1.0) Aspartate Amino Transf (AST/SGOT) 21 U/L (15-37) Alanine Aminotransferase (ALT/SGPT) 20 U/L (14-59) Alkaline Phosphatase 48 U/L (46-116) Total Protein 5.3 g/dL (6.4-8.2) Albumin 2.3 g/dL (3.4-5.0) Albumin/Globulin Ratio 0.8 (1.0-1.7) Test 12/31/18 05:51 Glucose (Fingerstick) 248 mg/dL (70-99) Laboratory Tests Test 12/30/18 12:19 12/30/18 16:30 12/30/18 17:12 12/30/18 23:59 Glucose (Fingerstick) 255 mg/dL (70-99) 233 mg/dL (70-99) 256 mg/dL (70-99) O2 Saturation 92 % (92-99) Arterial Blood pH 7.41 (7.35-7.45) Arterial Blood pCO2 at Patient Temp 42 mmHg (35-46) Arterial Blood pO2 at Patient Temp 72 mmHg (65-108) Arterial Blood HCO3 26 mmol/L (21-28) Arterial Blood Base Excess 2 mmol/L (-3-3) FiO2 60 Test 12/31/18 05:50 12/31/18 05:51 White Blood Count 18.5 x10^3/uL (4.0-11.0) Red Blood Count 3.18 x10^6/uL (3.50-5.40) Hemoglobin 7.4 g/dL (12.0-15.5) Hematocrit 24.4 % (36.0-47.0) Mean Corpuscular Volume 77 fL (79-100) Mean Corpuscular Hemoglobin 23 pg (25-35) Mean Corpuscular Hemoglobin Concent 30 g/dL (31-37) Red Cell Distribution Width 23.6 % (11.5-14.5) Platelet Count 331 x10^3/uL (140-400) Neutrophils (%) (Auto) 91 % (31-73) Lymphocytes (%) (Auto) 5 % (24-48) Monocytes (%) (Auto) 5 % (0-9) Eosinophils (%) (Auto) 0 % (0-3) Basophils (%) (Auto) 0 % (0-3) Neutrophils # (Auto) 16.7 x10^3uL (1.8-7.7) Lymphocytes # (Auto) 0.9 x10^3/uL (1.0-4.8) Monocytes # (Auto) 0.8 x10^3/uL (0.0-1.1) Eosinophils # (Auto) 0.0 x10^3/uL (0.0-0.7) Basophils # (Auto) 0.0 x10^3/uL (0.0-0.2) Sodium Level 145 mmol/L (136-145) Potassium Level 4.9 mmol/L (3.5-5.1) Chloride Level 108 mmol/L (98-107) Carbon Dioxide Level 33 mmol/L (21-32) Anion Gap 4 (6-14) Blood Urea Nitrogen 32 mg/dL (7-20) Creatinine 0.8 mg/dL (0.6-1.0) Estimated GFR (Cockcroft-Gault) 84.6 BUN/Creatinine Ratio 40 (6-20) Glucose Level 252 mg/dL (70-99) Calcium Level 8.8 mg/dL (8.5-10.1) Total Bilirubin 0.5 mg/dL (0.2-1.0) Aspartate Amino Transf (AST/SGOT) 21 U/L (15-37) Alanine Aminotransferase (ALT/SGPT) 20 U/L (14-59) Alkaline Phosphatase 48 U/L (46-116) Total Protein 5.3 g/dL (6.4-8.2) Albumin 2.3 g/dL (3.4-5.0) Albumin/Globulin Ratio 0.8 (1.0-1.7) Glucose (Fingerstick) 248 mg/dL (70-99) Microbiology 12/21/18 Blood Culture - Final, Complete NO GROWTH AFTER 5 DAYS 12/25/18 - Final, Complete 12/25/18 - Final, Complete 12/25/18 - Final, Complete 12/25/18 - Final, Complete 12/25/18 Gram Stain Evaluation - Final, Complete 12/25/18 Sputum Culture - Final, Complete 12/25/18 Sputum Result 1 - Final, Complete Medications Current Medications Sodium Chloride 1,000 ml @ 1,000 mls/hr 1X ONCE IV Last administered on 13:52; Start 12/14/18 at 13:30; Stop 12/14/18 at 14:29; Status DC Amlodipine Besylate (Norvasc) 10 mg DAILY PO Last administered on 12/26/18at 10: 01; Start 12/14/18 at 17:00 Chlorhexidine Gluconate (Peridex) 15 ml BID MM Last administered on 12/29/18at 21:41; Start 12/14/18 at 21:00 Non-Formulary Medication (Albuterol Sulfate (Ventolin Hfa Inhaler)) 2 puff Q4HRS INH ; Start 12/14/18 at 20:00; Status UNV Ascorbic Acid (Vitamin C) 500 mg DAILY PO Last administered on 12/22/18 10:30; Start 12/14/18 at 17:00 Duloxetine HCl (Cymbalta) 90 mg DAILY PO Last administered on 12/22/18 10:30; Start 12/14/18 at 17:00 Ferrous Sulfate (Feosol) 325 mg DAILYWBKFT PO Last administered on 12/22/18 10: 30; Start 12/14/18 at 17:00 Losartan Potassium (Cozaar) 100 mg DAILY PO Last administered on 12/22/18 10:29 ; Start 12/14/18 at 17:00 Memantine (Namenda) 10 mg BID PO Last administered on 12/26/18 21:25; Start at 21:00 Pantoprazole Sodium (Protonix) 40 mg DAILYAC PO Last administered on 12/22/18 05:28; Start 12/14/18 at 17:00; Stop 12/24/18 at 09:25; Status DC Ropinirole HCl (Requip) 3 mg QHS PO Last administered on 12/26/18 21:25; Start 12/14/18 at 21:00 Spironolactone (Aldactone) 25 mg DAILY PO Last administered on 12/26/18 10:42 ; Start 12/14/18 at 17:00 Albuterol Sulfate (Ventolin Neb Soln) 2.5 mg Q4HRS NEB Last administered on 09:09; Start 12/14/18 at 20:00 Sodium Chloride 1,000 ml @ 80 mls/hr [id number] IV Last administered on 12/23/18 15:25; Start 12/14/18 at 17:15; Stop 12/23/18 at 21:59; Status DC Acetaminophen (Tylenol) 650 mg PRN Q6HRS PRN PO Pain Last administered on 21:27; Start 12/15/18 at 04:45; Stop 12/26/18 at 21:07; Status DC Polyethylene Glycol (miraLAX Powder BULK BOTTLE) 238 gm 1X ONCE PO Last administered on 12/15/18at 12:48; Start 12/15/18 at 12:00; Stop 12/15/18 at 12:01 ; Status DC Ondansetron HCl (Zofran) 4 mg PRN Q6HRS PRN IV NAUSEA/VOMITING; Start 12/16/18 at 07:00; Stop 12/17/18 at 06:59; Status DC Fentanyl Citrate (Fentanyl 2ml Vial) 25 mcg PRN Q5MIN PRN IV MILD PAIN; Start 12/16/18 at 07:00; Stop 12/16/18 at 16:33; Status DC Fentanyl Citrate (Fentanyl 2ml Vial) 50 mcg PRN Q5MIN PRN IV MODERATE TO SEVERE PAIN; Start 12/16/18 at 07:00; Stop 12/16/18 at 16:33; Status DC Morphine Sulfate (Morphine Sulfate) 1 mg PRN Q10MIN PRN IV SEVERE PAIN; Start 12/16/18 at 07:00; Stop 12/17/18 at 06:59; Status DC Ringer's Solution 1,000 ml @ 30 mls/hr Q24H IV Last administered on 12/16/18at 13:00; Start 12/16/18 at 07:00; Stop 12/16/18 at 18:59; Status DC Lidocaine HCl (Xylocaine-Mpf 1% 2ml Vial) 2 ml PRN 1X PRN ID IV START; Start at 07:00; Stop 12/17/18 at 06:59; Status DC Hydromorphone HCl (Dilaudid) 0.5 mg PRN Q10MIN PRN IV SEV PAIN, Second choice; Start 12/16/18 at 07:00; Stop 12/17/18 at 06:59; Status DC Prochlorperazine Edisylate (Compazine) 5 mg PACU PRN PRN IV NAUSEA, MRX1; Start 12/16/18 at 07:00; Stop 12/17/18 at 06:59; Status DC Midazolam HCl (Versed) 2 mg PRN 1X PRN IV PRIOR TO PROCEDURE; Start 12/16/18 at 07:15; Stop 12/17/18 at 07:14; Status DC Fentanyl Citrate (Fentanyl 2ml Vial) 25 mcg PRN Q5MIN PRN IV X 2 DOSES FOR PAIN ; Start 12/16/18 at 07:15; Stop 12/16/18 at 16:33; Status DC Fentanyl Citrate (Fentanyl 2ml Vial) 50 mcg PRN Q5MIN PRN IV X 2 DOSES FOR PAIN ; Start 12/16/18 at 07:15; Stop 12/16/18 at 16:34; Status DC Ringer's Solution 1,000 ml @ 125 mls/hr Q8H IV ; Start 12/16/18 at 07:13; Stop 12/16/18 at 19:12; Status DC Lidocaine HCl (Xylocaine-Mpf 1% 2ml Vial) 2 ml 1X PRN PRN ID IV START; Start at 07:15; Stop 12/17/18 at 07:14; Status DC Propofol 40 ml @ As Directed STK-MED ONCE IV ; Start 12/16/18 at 13:58; Stop at 14:00; Status DC Prochlorperazine Edisylate (Compazine) 5 mg PACU PRN PRN IV NAUSEA, MRX1; Start 12/17/18 at 07:00; Stop 12/18/18 at 06:59; Status DC Hydromorphone HCl (Dilaudid) 0.5 mg PRN Q10MIN PRN IV SEV PAIN, Second choice; Start 12/17/18 at 07:00; Stop 12/18/18 at 06:59; Status DC Lidocaine HCl (Xylocaine-Mpf 1% 2ml Vial) 2 ml PRN 1X PRN ID IV START; Start at 07:00; Stop 12/18/18 at 06:59; Status DC Ringer's Solution 1,000 ml @ 30 mls/hr Q24H IV Last administered on 12/17/18at 10:34; Start 12/17/18 at 07:00; Stop 12/17/18 at 18:59; Status DC Morphine Sulfate (Morphine Sulfate) 1 mg PRN Q10MIN PRN IV SEVERE PAIN; Start 12/17/18 at 07:00; Stop 12/18/18 at 06:59; Status DC Fentanyl Citrate (Fentanyl 2ml Vial) 50 mcg PRN Q5MIN PRN IV MODERATE TO SEVERE PAIN Last administered on 12/17/18at 11:13; Start 12/17/18 at 07:00; Stop at 06:59; Status DC Fentanyl Citrate (Fentanyl 2ml Vial) 25 mcg PRN Q5MIN PRN IV MILD PAIN; Start 12/17/18 at 07:00; Stop 12/18/18 at 06:59; Status DC Ondansetron HCl (Zofran) 4 mg PRN Q6HRS PRN IV NAUSEA/VOMITING; Start 12/17/18 at 07:00; Stop 12/18/18 at 06:59; Status DC Propofol 20 ml @ As Directed STK-MED ONCE IV ; Start 12/17/18 at 07:21; Stop 12/17 at 07:23; Status DC Albuterol Sulfate (Ventolin Neb Soln) 2.5 mg 1X ONCE NEB ; Start 12/17/18 at 07: 30; Stop 12/17/18 at 07:31; Status DC Lidocaine HCl (Lidocaine Pf 2% Vial) 5 ml STK-MED ONCE .ROUTE ; Start 12/17/18 at 07:21; Stop 12/17/18 at 07:23; Status DC Succinylcholine Chloride (Anectine) 200 mg STK-MED ONCE .ROUTE ; Start 12/17/18 at 07:21; Stop 12/17/18 at 07:23; Status DC Rocuronium [place] (Zemuron) 50 mg STK-MED ONCE .ROUTE ; Start 12/17/18 at 07:21 ; Stop 12/17/18 at 07:23; Status DC Fentanyl Citrate (Fentanyl 2ml Vial) 100 mcg STK-MED ONCE .ROUTE ; Start at 07:21; Stop 12/17/18 at 07:24; Status DC Cefazolin Sodium/ Dextrose 50 ml @ 100 mls/hr 1X ONCE IV Last administered on 12/17/18at 08:07; Start 12/17/18 at 07:45; Stop 12/17/18 at 08:18; Status DC Bupivacaine HCl/ Epinephrine Bitart (Sensorcain-Mpf Epi 0.5%-1:[id number]) 30 ml STK -MED ONCE .ROUTE Last administered on 12/17/18at 08:34; Start 12/17/18 at 07:46; Stop 12/17/18 at 07:49; Status DC Neomycin/ Polymyxin/ Bacitracin (Triple Antibiotic Ointment) 1 pkt STK-MED ONCE TP Last administered on 12/17/18at 10:07; Start 12/17/18 at 07:46; Stop 12/17/18 at 07:49; Status DC Neomycin/ Polymyxin/ Bacitracin (Triple Antibiotic Ointment) 1 pkt STK-MED ONCE TP Last administered on 12/17/18at 10:07; Start 12/17/18 at 07:46; Stop 12/17/18 at 07:49; Status DC Neomycin/ Polymyxin/ Bacitracin (Triple Antibiotic Ointment) 1 pkt STK-MED ONCE TP ; Start 12/17/18 at 07:47; Stop 12/17/18 at 07:49; Status DC Dexamethasone Sodium Phosphate (Decadron) 20 mg STK-MED ONCE .ROUTE ; Start 12/17 at 07:54; Stop 12/17/18 at 07:56; Status DC Hydrocortisone Sodium Succinate (Solu-CORTEF) 100 mg STK-MED ONCE .ROUTE ; Start 12/17/18 at 07:54; Stop 12/17/18 at 07:56; Status DC Desflurane (Suprane) 90 ml STK-MED ONCE IH ; Start 12/17/18 at 07:54; Stop at 07:56; Status DC Neostigmine Methylsulfate (Bloxiverz) 10 mg STK-MED ONCE .ROUTE ; Start 12/17/18 at 08:21; Stop 12/17/18 at 08:24; Status DC Glycopyrrolate (Robinul) 1 mg STK-MED ONCE .ROUTE ; Start 12/17/18 at 08:21; Stop 12/17/18 at 08:24; Status DC Phenylephrine HCl (Bogdan-Synephrine Inj) 10 mg STK-MED ONCE .ROUTE ; Start at 08:23; Stop 12/17/18 at 08:26; Status DC Desflurane (Suprane) 60 ml STK-MED ONCE IH ; Start 12/17/18 at 09:23; Stop at 09:26; Status DC Bupivacaine HCl/ Epinephrine Bitart (Sensorcain-Mpf Epi 0.5%-1:[id number]) 30 ml STK -MED ONCE .ROUTE Last administered on 12/17/18at 10:06; Start 12/17/18 at 09:41; Stop 12/17/18 at 09:43; Status DC Morphine Sulfate (Morphine Sulfate) 2 mg PRN Q2HR PRN IV PAIN Last administered on 12/25/18at 09:26; Start 12/17/18 at 10:15; Stop 12/25/18 at 17:54; Status DC Ketorolac Tromethamine (Toradol 15mg Vial) 15 mg Q6HRS IV Last administered on 12/18/18at 05:39; Start 12/17/18 at 12:00; Stop 12/18/18 at 10:00; Status DC Artificial Tears (Artificial Tears) 1 drop PRN Q15MIN PRN OU DRY EYE Last administered on 12/20/18 21:28; Start 12/18/18 at 08:00 Docusate Sodium (Colace) 100 mg DAILY PO Last administered on 12/26/18 10:01; Start 12/18/18 at 10:00 Throat Lozenges (Cepacol Sore Throat Lozenge) 1 kristyn PRN Q2HRS PRN PO SORE THROAT Last administered on 12/26/18 10:01; Start 12/18/18 at 14:00 Enoxaparin Sodium (Lovenox 40mg Syringe) 40 mg Q24H SQ Last administered on 08:26; Start 12/19/18 at 09:00 Ondansetron HCl (Zofran) 4 mg PRN Q6HRS PRN IV NAUSEA/VOMITING Last administered on 12/30/18 03:43; Start 12/19/18 at 11:30 Insulin Human Lispro (HumaLOG) 0-5 UNITS TIDWMEALS SQ Last administered on 12/30 18:23; Start 12/19/18 at 17:00; Stop 12/31/18 at 00:05; Status DC Dextrose (Dextrose 50%-Water Syringe) 12.5 gm PRN Q15MIN PRN IV SEE COMMENTS; Start 12/19/18 at 16:45 Levofloxacin/ Dextrose 100 ml @ 100 mls/hr 1X ONCE IV Last administered on 20:56; Start 12/19/18 at 21:00; Stop 12/19/18 at 21:59; Status DC Cefepime HCl (Maxipime) 2 gm Q12HR IVP Last administered on 12/29/18 10:02; Start 12/21/18 at 10:00; Stop 12/29/18 at 10:37; Status DC Sodium Chloride 1,000 ml @ 125 mls/hr 1X ONCE IV Last administered on 10:43; Start 12/21/18 at 09:45; Stop 12/21/18 at 17:44; Status DC Calcium Carbonate/ Glycine (Tums) 500 mg PRN AFTMEALHC PRN PO INDIGESTION Last administered on 12/21/18 13:10; Start 12/21/18 at 12:15 Lorazepam (Ativan) 1 mg 1X ONCE IV Last administered on 12/21/18 17:50; Start 12/21/18 at 17:30; Stop 12/21/18 at 17:31; Status DC Albuterol Sulfate (Ventolin Neb Soln) 2.5 mg PRN Q2HRS PRN NEB SHORTNESS OF BREATH Last administered on 12/26/18 10:26; Start 12/21/18 at 17:30 Nicotine (Nicoderm Cq 14mg) 1 patch PRN DAILY PRN TD SMOKING CESSATION Last administered on 12/26/18 09:59; Start 12/21/18 at 19:30 Lorazepam (Ativan) 1 mg 1X ONCE IV Last administered on 12/21/18 23:45; Start 12/21/18 at 23:45; Stop 12/21/18 at 23:46; Status DC Lorazepam (Ativan) 1 mg PRN Q4HRS PRN IV ANXIETY / AGITATION Last administered on 12/22/18 11:15; Start 12/21/18 at 23:30; Stop 12/22/18 at 14:42; Status DC Sodium Chloride 1,000 ml @ 250 mls/hr 1X ONCE IV Last administered on 09:15; Start 12/22/18 at 09:15; Stop 12/22/18 at 13:14; Status DC Lidocaine/Sodium Bicarbonate (Buffered Lidocaine 1%) 3 ml STK-MED ONCE .ROUTE ; Start 12/23/18 at 10:33; Stop 12/23/18 at 10:35; Status DC Lidocaine/Sodium Bicarbonate (Buffered Lidocaine 1%) 3 ml 1X ONCE INJ Last administered on 12/23/18at 11:24; Start 12/23/18 at 11:00; Stop 12/23/18 at 11:10; Status DC Info (Tpn Per Pharmacy) 1 each PRN DAILY PRN MC SEE COMMENTS Last administered on 12/30/18at 14:51; Start 12/23/18 at 14:00 Sodium Chloride 90 meq/Potassium Chloride 50 meq/ Potassium Phosphate 20.4 mmol/ Magnesium Sulfate 18 meq/ Calcium Gluconate 5 meq/ Multivitamins 10 ml/Chromium / Copper/Manganese/ Seleni/Zn 1 ml/ Total Parenteral Nutrition/Amino Acids/ Dextrose/ Fat Emulsion Intravenous 1,512 ml @ 63 mls/hr TPN CONT IV Last administered on 12/23/18at 21:37; Start 12/23/18 at 22:00; Stop 12/24/18 at 21:59; Status DC Alprazolam (Xanax) 0.25 mg PRN BID PRN PO ANXIETY / AGITATION Last administered on 12/25/18at 09:25; Start 12/23/18 at 23:00; Stop 12/25/18 at 17:54; Status DC Lorazepam (Ativan) 1 mg PRN Q4HRS PRN IV ANXIETY / AGITATION Last administered on 12/24/18at 09:21; Start 12/24/18 at 08:45; Stop 12/24/18 at 10:19; Status DC Pantoprazole Sodium (PROTONIX VIAL for IV PUSH) 40 mg DAILYAC IVP Last administered on 12/31/18at 08:25; Start 12/24/18 at 09:30 Lorazepam (Ativan) 0.5 mg PRN Q4HRS PRN IV ANXIETY / AGITATION Last administered on 12/25/18at 04:47; Start 12/24/18 at 10:30; Stop 12/25/18 at 10:22; Status DC Sodium Chloride 45 meq/Sodium Acetate 45 meq/ Potassium Chloride 50 meq/ Potassium Phosphate 20.4 mmol/Magnesium Sulfate 18 meq/ Calcium Gluconate 5 meq / Multivitamins 10 ml/Chromium/ Copper/Manganese/ Seleni/Zn 1 ml/ Total Parenteral Nutrition/Amino Acids/Dextrose/ Fat Emuls... 1,512 ml @ 63 mls/hr TPN CONT IV Last administered on 12/24/18at 21:57; Start 12/24/18 at 22:00; Stop 12/25/18 at 21:59; Status DC Phenyleph/Shark Oil/Min Oil/Petrol (Preparation H) 1 ranjith PRN Q4HRS PRN RC RECTAL PAIN; Start 12/24/18 at 12:45; Stop 12/25/18 at 20:20; Status DC Sodium Chloride 45 meq/Sodium Acetate 45 meq/ Potassium Chloride 50 meq/ Potassium Phosphate 20.4 mmol/Magnesium Sulfate 18 meq/ Calcium Gluconate 5 meq / Multivitamins 10 ml/Chromium/ Copper/Manganese/ Seleni/Zn 1 ml/ Total Parenteral Nutrition/Amino Acids/Dextrose/ Fat Emuls... 1,512 ml @ 63 mls/hr TPN CONT IV Last administered on 12/26/18 00:34; Start 12/25/18 at 22:00; Stop 12/26/18 at 21:59; Status DC Neomycin/ Polymyxin/ Bacitracin (Triple Antibiotic Ointment) 1 pkt PRN TID PRN TP skin around rectum, post op Last administered on 12/26/18 09:58; Start at 14:30 Alprazolam (Xanax) 0.25 mg PRN Q8HRS PRN PO ANXIETY / AGITATION Last administered on 12/28/18 04:39; Start 12/25/18 at 18:00 Morphine Sulfate (Morphine Sulfate) 2 mg PRN Q6HRS PRN IV PAIN Last administered on 12/29/18 21:47; Start 12/25/18 at 18:00; Stop 12/30/18 at 03:17 ; Status DC Guaifenesin (Mucinex) 600 mg BID PO Last administered on 12/26/18at 21:26; Start 12/26/18 at 11:00 Guaifenesin (Mucinex) 600 mg BID PO ; Start 12/26/18 at 11:00; Status UNV Guaifenesin/ Codeine Phosphate (Robitussin Ac) 5 ml PRN Q6HRS PRN PO COUGH Last administered on 12/26/18at 10:41; Start 12/26/18 at 10:30 Sodium Acetate 90 meq/Potassium Chloride 50 meq/ Potassium Phosphate 13.6 mmol/ Magnesium Sulfate 18 meq/ Calcium Gluconate 5 meq/ Multivitamins 10 ml/Chromium / Copper/Manganese/ Seleni/Zn 1 ml/ Total Parenteral Nutrition/Amino Acids/ Dextrose/ Fat Emulsion Intravenous 1,512 ml @ 63 mls/hr TPN CONT IV Last administered on 12/26/18at 21:37; Start 12/26/18 at 22:00; Stop 12/28/18 at 01:28 ; Status DC Benzocaine (Hurricaine One) 1 spray 1X ONCE MM ; Start 12/26/18 at 19:15; Stop 12/26/18 at 19:16; Status DC Acetaminophen (Tylenol) 650 mg PRN Q6HRS PRN PO MILD PAIN / TEMP Last administered on 12/27/18at 04:39; Start 12/26/18 at 21:00 Benzocaine (Hurricaine One) 1 spray 1X ONCE MM Last administered on 12/27/18at 09:00; Start 12/27/18 at 09:15; Stop 12/27/18 at 09:16; Status DC Sodium Acetate 90 meq/Potassium Chloride 50 meq/ Potassium Phosphate 13.6 mmol/ Magnesium Sulfate 15 meq/ Calcium Gluconate 5 meq/ Multivitamins 10 ml/Chromium / Copper/Manganese/ Seleni/Zn 1 ml/ Total Parenteral Nutrition/Amino Acids/ Dextrose/ Fat Emulsion Intravenous 1,512 ml @ 63 mls/hr TPN CONT IV ; Start at 22:00; Stop 12/28/18 at 21:59; Status Cancel Sodium Acetate 90 meq/Potassium Chloride 50 meq/ Potassium Phosphate 13.6 mmol/ Magnesium Sulfate 15 meq/ Calcium Gluconate 5 meq/ Multivitamins 10 ml/Chromium / Copper/Manganese/ Seleni/Zn 1 ml/ Total Parenteral Nutrition/Amino Acids/ Dextrose/ Fat Emulsion Intravenous 1,512 ml @ 63 mls/hr TPN CONT IV ; Start at 22:00; Stop 12/28/18 at 21:59; Status DC Lidocaine/Sodium Bicarbonate (Buffered Lidocaine 1%) 3 ml 1X ONCE INJ ; Start 12/28/18 at 09:00; Stop 12/28/18 at 09:01; Status Cancel Benzocaine (Hurricaine One) 1 spray 1X ONCE MM Last administered on 12/28/18at 09:32; Start 12/28/18 at 09:30; Stop 12/28/18 at 09:33; Status DC Sodium Acetate 90 meq/Potassium Chloride 50 meq/ Potassium Phosphate 13.6 mmol/ Magnesium Sulfate 15 meq/ Calcium Gluconate 5 meq/ Multivitamins 10 ml/Chromium / Copper/Manganese/ Seleni/Zn 1 ml/ Total Parenteral Nutrition/Amino Acids/ Dextrose/ Fat Emulsion Intravenous 1,512 ml @ 63 mls/hr TPN CONT IV Last administered on 12/28/18at 22:06; Start 12/28/18 at 22:00; Stop 12/29/18 at 21:59 ; Status DC Iohexol (Omnipaque 300 Mg/ml) 400 ml 1X ONCE PO Last administered on at 08:15; Start 12/29/18 at 06:45; Stop 12/29/18 at 06:46; Status DC Info (CONTRAST GIVEN -- Rx MONITORING) 1 each PRN DAILY PRN MC SEE COMMENTS; Start 12/29/18 at 06:45; Stop 12/31/18 at 06:44; Status DC Iohexol (Omnipaque 300 Mg/ml) 400 ml 1X ONCE PO ; Start 12/29/18 at 07:00; Stop 12/29/18 at 07:03; Status DC Info (CONTRAST GIVEN -- Rx MONITORING) 1 each PRN DAILY PRN MC SEE COMMENTS; Start 12/29/18 at 07:15; Stop 12/31/18 at 07:14; Status DC Meropenem 500 mg/ Sodium Chloride 50 ml @ 100 mls/hr Q6HRS IV Last administered on 12/31/18at 05:53; Start 12/29/18 at 12:00 Multi-Ingredient Ointment (Analgesic [place]) 1 ranjith PRN QID PRN TP MUSCLE PAIN Last administered on 12/29/18at 14:40; Start 12/29/18 at 13:00 Sodium Acetate 90 meq/Potassium Chloride 50 meq/ Potassium Phosphate 13.6 mmol/ Magnesium Sulfate 15 meq/ Calcium Gluconate 5 meq/ Multivitamins 10 ml/Chromium / Copper/Manganese/ Seleni/Zn 1 ml/ Total Parenteral Nutrition/Amino Acids/ Dextrose/ Fat Emulsion Intravenous 1,512 ml @ 63 mls/hr TPN CONT IV Last administered on 12/29/18at 21:40; Start 12/29/18 at 22:00; Stop 12/30/18 at 21:59 ; Status DC Morphine Sulfate (Morphine Sulfate) 2 mg PRN Q4HRS PRN IV SEVERE PAIN Last administered on 12/30/18at 19:50; Start 12/30/18 at 03:30; Stop 12/30/18 at 21:33 ; Status DC Propofol 20 ml @ As Directed STK-MED ONCE IV ; Start 12/30/18 at 12:51; Stop at 12:52; Status DC Dexamethasone Sodium Phosphate (Decadron) 20 mg STK-MED ONCE .ROUTE ; Start at 12:51; Stop 12/30/18 at 12:52; Status DC Lidocaine HCl (Lidocaine Pf 2% Vial) 5 ml STK-MED ONCE .ROUTE ; Start 12/30/18 at 12:51; Stop 12/30/18 at 12:52; Status DC Ondansetron HCl (Zofran) 4 mg STK-MED ONCE .ROUTE ; Start 12/30/18 at 12:51; Stop 12/30/18 at 12:52; Status DC Rocuronium [place] (Zemuron) 50 mg STK-MED ONCE .ROUTE ; Start 12/30/18 at 12:51 ; Stop 12/30/18 at 12:52; Status DC Succinylcholine Chloride (Anectine) 200 mg STK-MED ONCE .ROUTE ; Start 12/30/18 at 12:51; Stop 12/30/18 at 12:52; Status DC Fentanyl Citrate (Fentanyl 5ml Vial) 250 mcg STK-MED ONCE .ROUTE ; Start at 13:49; Stop 12/30/18 at 13:50; Status DC Sodium Chloride 90 meq/Potassium Chloride 50 meq/ Potassium Phosphate 13.6 mmol/ Magnesium Sulfate 15 meq/ Multivitamins 10 ml/Chromium/ Copper/Manganese/ Seleni /Zn 1 ml/ Total Parenteral Nutrition/Amino Acids/Dextrose/ Fat Emulsion Intravenous 1,512 ml @ 63 mls/hr TPN CONT IV Last administered on 12/30/18at 23:43; Start 12/30/18 at 22:00; Stop 12/31/18 at 21:59 Vasopressin (Vasostrict) 20 unit STK-MED ONCE .ROUTE ; Start 12/30/18 at 15:00; Stop 12/30/18 at 15:01; Status DC Sodium Chloride (SODIUM CHLORIDE 20ml) 20 ml STK-MED ONCE IJ ; Start 12/30/18 at 15:01; Stop 12/30/18 at 15:02; Status DC Albumin Human 500 ml @ As Directed STK-MED ONCE IV ; Start 12/30/18 at 15:01; Stop 12/30/18 at 15:02; Status DC Glycopyrrolate (Robinul) 1 mg STK-MED ONCE .ROUTE ; Start 12/30/18 at 15:21; Stop 12/30/18 at 15:22; Status DC Neostigmine Methylsulfate (Bloxiverz) 10 mg STK-MED ONCE .ROUTE ; Start at 15:21; Stop 12/30/18 at 15:22; Status DC Albuterol/ Ipratropium (Duoneb) 3 ml STK-MED ONCE .ROUTE ; Start 12/30/18 at 15: 45; Stop 12/30/18 at 15:46; Status DC Fentanyl Citrate (Fentanyl 2ml Vial) 100 mcg STK-MED ONCE .ROUTE ; Start at 16:56; Stop 12/30/18 at 16:57; Status DC Ondansetron HCl (Zofran) 4 mg PRN Q6HRS PRN IV NAUSEA/VOMITING; Start 12/30/18 at 17:15; Stop 12/30/18 at 21:35; Status DC Fentanyl Citrate (Fentanyl 2ml Vial) 25 mcg PRN Q5MIN PRN IV MILD PAIN Last administered on 12/30/18at 17:15; Start 12/30/18 at 17:15; Stop 12/30/18 at 21:35 ; Status DC Fentanyl Citrate (Fentanyl 2ml Vial) 50 mcg PRN Q5MIN PRN IV MODERATE TO SEVERE PAIN Last administered on 12/30/18at 17:57; Start 12/30/18 at 17:15; Stop 12/30/18 at 21:35; Status DC Morphine Sulfate (Morphine Sulfate) 1 mg PRN Q10MIN PRN IV SEVERE PAIN; Start 12/30/18 at 17:15; Stop 12/31/18 at 17:14 Ringer's Solution 1,000 ml @ 30 mls/hr Q24H IV Last administered on 12/30/18at 18:09; Start 12/30/18 at 17:10; Stop 12/30/18 at 21:33; Status DC Lidocaine HCl (Xylocaine-Mpf 1% 2ml Vial) 2 ml 1X PRN PRN ID IV START; Start at 17:15; Stop 12/30/18 at 21:35; Status DC Hydromorphone HCl (Dilaudid) 0.5 mg PRN Q10MIN PRN IV SEV PAIN, Second choice; Start 12/30/18 at 17:15; Stop 12/30/18 at 21:35; Status DC Prochlorperazine Edisylate (Compazine) 5 mg PACU PRN PRN IV NAUSEA, MRX1; Start 12/30/18 at 17:15; Stop 12/30/18 at 21:35; Status DC Albumin Human 100 ml @ 100 mls/hr 1X ONCE IV Last administered on 12/30/18at 22:00; Start 12/30/18 at 22:00; Stop 12/30/18 at 22:59; Status DC Ringer's Solution 500 ml @ 500 mls/hr 1X ONCE IV Last administered on at 22:00; Start 12/30/18 at 22:00; Stop 12/30/18 at 22:59; Status DC Ringer's Solution 1,000 ml @ 100 mls/hr Q10H IV Last administered on at 10:10; Start 12/30/18 at 23:00 Hydromorphone HCl (Dilaudid) 0.5 mg PRN Q2HR PRN IV MODERATE PAIN Last administered on 12/31/18at 00:37; Start 12/30/18 at 21:30 Hydromorphone HCl (Dilaudid) 1 mg PRN Q2HR PRN IV SEVERE PAIN Last administered on 12/31/18at 10:10; Start 12/30/18 at 21:30 Insulin Human Lispro (HumaLOG) 0-5 UNITS Q6HRS SQ Last administered on at 05:57; Start 12/31/18 at 00:30 Active Scripts Active Chlorhexidine Gluconate 473 Ml Mouthwash 473 Ml MM BID 7 Days Vitamin C (Ascorbate Calcium) 500 Mg Tablet 500 Mg PO DAILY 30 Days Slow Release Iron (Ferrous Sulfate) 250 Mg Tablet.er 250 Mg PO DAILY 30 Days Protonix (Pantoprazole Sodium) 40 Mg Granpkt.dr 40 Mg PO DAILY 30 Days Reported Alprazolam 0.25 Mg Tablet 0.25 Mg PO DAILY Metformin Hcl Er (Metformin Hcl) 500 Mg Tab.er.24h 1 Tab PO DAILY Namenda (Memantine Hcl) 10 Mg Tablet 1 Tab PO BID Losartan Potassium 100 Mg Tablet 100 Mg PO DAILY Spironolactone 25 Mg Tablet 1 Tab PO DAILY Ventolin Hfa Inhaler (Albuterol Sulfate) 18 Gm Hfa.aer.ad 2 Puff INH Q4HRS Cymbalta (Duloxetine Hcl) 20 Mg Capsule.dr 90 Mg PO DAILY Requip (Ropinirole Hcl) 1 Mg Tablet 3 Mg PO DAILY Amlodipine Besylate 10 Mg Tablet 10 Mg PO DAILY Vitals/I & O Vital Sign - Last 24 Hours 12/30/18 12/30/18 12/30/18 12/30/18 13:36 15:44 16:00 16:00 Temp 97.7 96.9 96.9 97.7 96.9 96.9 Pulse 85 92 96 Resp 26 42 40 B/P (MAP) 124/77 103/74 92/65 Pulse Ox 98 88 98 O2 Delivery Nasal Cannula Simple Mask Bi-pap Simple Mask O2 Flow Rate 3.0 10 10 12/30/18 12/30/18 12/30/18 12/30/18 16:15 16:30 16:44 16:45 Temp 96.9 96.9 96.9 96.9 96.9 96.9 Pulse 86 90 88 Resp 38 36 34 B/P (MAP) 120/67 81/48 93/63 Pulse Ox 88 92 96 100 O2 Delivery Simple Mask Simple Mask BiPAP/CPAP Simple Mask BiPAP/CPAP O2 Flow Rate 10 10 12/30/18 12/30/18 12/30/18 12/30/18 17:00 17:15 17:15 17:27 Temp 96.9 97 96.9 97.0 Pulse 88 86 Resp 27 B/P (MAP) 98/68 108/61 Pulse Ox 90 94 92 94 O2 Delivery Simple Mask BiPAP/CPAP Simple Mask BiPAP/CPAP BiPAP/CPAP BiPAP/CPAP O2 Flow Rate 60.0 12/30/18 12/30/18 12/30/18 12/30/18 17:30 17:45 17:57 18:00 Temp 97.0 97.0 97.9 97.0 97.0 97.9 Pulse 88 86 88 Resp 24 24 26 19 B/P (MAP) 117/57 123/43 87/59 (68) Pulse Ox 93 93 94 99 O2 Delivery Simple Mask Simple Mask BiPAP/CPAP BiPAP/CPAP BiPAP/CPAP BiPAP/CPAP O2 Flow Rate 60.0 12/30/18 12/30/18 12/30/18 12/30/18 18:15 18:15 18:27 19:00 Temp 95.7 95.7 Pulse 84 98 Resp 20 20 B/P (MAP) 102/63 (76) 101/66 (78) Pulse Ox 96 96 99 O2 Delivery Room Air Bi-pap BiPAP/CPAP O2 Flow Rate 60.0 2/14/19 2/14/19 2/14/19 2/14/19 19:50 19:50 20:00 20:00 Pulse 92 Resp 24 14 B/P (MAP) 101/58 (72) Pulse Ox 96 100 99 O2 Delivery BiPAP/CPAP BiPAP/CPAP Bi-pap BiPAP/CPAP O2 Flow Rate 60.0 12/30/18 12/30/18 12/30/18 12/30/18 20:30 21:00 22:00 22:02 Pulse 100 100 Resp 20 18 B/P (MAP) 86/56 (66) 73/54 (60) Pulse Ox 99 99 99 99 O2 Delivery BiPAP/CPAP BiPAP/CPAP O2 Flow Rate 60.0 60.0 12/30/18 12/30/18 12/30/18 12/30/18 22:30 22:45 23:00 23:29 Pulse 96 94 90 90 Resp 12 24 24 18 B/P (MAP) 66/46 (53) 83/54 (64) 82/57 (65) 90/60 (70) Pulse Ox 100 100 100 100 O2 Delivery BiPAP/CPAP BiPAP/CPAP BiPAP/CPAP 12/30/18 12/30/18 12/30/18 12/31/18 23:32 23:59 23:59 00:37 Temp 98.7 98.7 Pulse 91 Resp 26 26 B/P (MAP) 96/54 (68) Pulse Ox 100 100 99 O2 Delivery BiPAP/CPAP Bi-pap Nasal Cannula O2 Flow Rate 5.0 12/31/18 12/31/18 12/31/18 12/31/18 01:00 01:05 02:00 02:32 Pulse 91 92 Resp 22 22 26 24 B/P (MAP) 95/59 (71) 95/62 (73) Pulse Ox 100 100 100 100 O2 Delivery Nasal Cannula Nasal Cannula Nasal Cannula O2 Flow Rate 5.0 5.0 5.0 3.0 12/31/18 12/31/18 12/31/18 12/31/18 03:00 04:00 04:00 04:27 Temp 96.5 96.5 Pulse 92 88 Resp 24 28 28 B/P (MAP) 91/57 (68) 92/58 (69) Pulse Ox 99 99 99 O2 Delivery Nasal Cannula Nasal Cannula Bi-pap O2 Flow Rate 5.0 3.0 3.0 12/31/18 12/31/18 12/31/18 12/31/18 05:00 06:00 06:39 07:00 Pulse 87 86 87 Resp 26 20 25 17 B/P (MAP) 102/61 (75) 102/72 (82) 96/67 (77) Pulse Ox 99 95 95 100 O2 Delivery Nasal Cannula Nasal Cannula Nasal Cannula O2 Flow Rate 3.0 3.0 3.0 3.0 12/31/18 12/31/18 12/31/18 12/31/18 07:03 08:00 08:00 09:00 Temp 98.1 98.1 Pulse 83 87 Resp 20 19 22 B/P (MAP) 110/67 (81) 113/74 (87) Pulse Ox 95 99 100 O2 Delivery Nasal Cannula Nasal Cannula Nasal Cannula O2 Flow Rate 3.0 3.0 3.0 12/31/18 12/31/18 12/31/18 12/31/18 09:09 10:00 10:10 10:51 Pulse 85 Resp 22 B/P (MAP) 117/72 (87) Pulse Ox 97 98 O2 Delivery Nasal Cannula Nasal Cannula Nasal Cannula Nasal Cannula O2 Flow Rate 3.0 3.0 3.0 3.0 Intake and Output 12/30/18 12/30/18 12/31/18 15:00 23:00 07:00 Intake Total 2740 ml 428 ml Output Total 3635 ml 540 ml Balance -895 ml -112 ml DAVID DORAN III DO Dec 31, 2018 12:06
[2018-12-31] MEDS: TPN PER PHARMACY MC PRN (12:38)
--- NOTE | 2018-12-31 12:39 | NUR ---
Pharmacy TPN Dosing Note S: ELLE LATHAM is a 72 year old F Currently receiving Central Continuous TPN started 12/23/18 B:Pertinent PMH: SBO Height: 5 feet, 7 inches Weight: 85 kg Current diet: npo LABS: Sodium: 145 Potassium: 4.9 Chloride: 108 Calcium: 8.8 Corrected Calcium: 10.16 Magnesium: 2.1 CO2: 33 SCr: 0.8 Glucose: 252, 248 Albumin: 2.3 AST: 21 ALT: 20 TPN FORMULA: TPN TYPE: Central Continuous AMINO ACIDS: 85 gm DEXTROSE: 260 gm LIPIDS: 40 gm SODIUM CHLORIDE: 90 mEq POTASSIUM CHLORIDE: 30 mEq POTASSIUM PHOSPHATE: 13.6 mmol MAGNESIUM: 15 mEq CALCIUM: 5 mEq MULTIPLE VITAMIN: 10 ml TRACE ELEMENTS: MTE5 1 ml TPN PLAN: -Serum potassium trending up - reduce KCl to 30 mEq/day. -Add calcium 5mEq/day to TPN. -BMP tomorrow. R: Continue TPN @ current rate and above formula. Will monitor electrolytes, glucose, and tolerance to TPN. ELIDA HUFFMAN [facility], 12/31/18 [id number]
[2018-12-31] MEDS: ONDANSETRON PF 4 MG/2 ML VIAL. IV PRN (16:31)
[2018-12-31] MEDS: rOPINIRole 1 MG TABLET. PO SCH (21:00)
[2018-12-31] MEDS ORDERED: AMINO ACID IV SCH ×10 (22:00)
[2018-12-31] MEDS ORDERED: TOTAL PARENTERAL NUTRITION IV SCH ×10 (22:00)
[2018-12-31] MEDS ORDERED: DEXTROSE 70% IV SCH ×10 (22:00)
[2018-12-31] MEDS ORDERED: [UNRECOGNIZED DRUG - OTHER] IV SCH ×10 (22:00)
[2019-01-01] VITALS (10 sets, daily range): BP systolic 104–145; BP diastolic 59–77
[2019-01-01] MEDS: INSULIN LISPRO 300 UNITS/3 ML INSULN.PEN. SQ SCH ×4 (00:44→18:20)
[2019-01-01] MEDS: IV RINGERS,LACTATED 1000ML 1,000 ML IV SCH (00:58)
[2019-01-01] MEDS: ALPRAZolam 0.25 MG TABLET PO PRN (02:34)
[2019-01-01] MEDS: ALBUTEROL SULFATE 2.5 MG/3 ML NEBU. NEB SCH ×6 (03:05→23:42)
[2019-01-01] MEDS: MEROPENEM 500 MG in IV NORMAL SALINE 50ML 50 ML IV SCH ×3 (06:23→18:16)
[2019-01-01 06:51] LABS: BASO # 0.1 x10^3/uL (0.0-0.2); BASO % 0 % (0-3); EOS # 0.1 x10^3/uL (0.0-0.7); EOS % 1 % (0-3); HEMATOCRIT 22.6 % (36.0-47.0); LYMPH % 4 % (24-48); MEAN CORPUSCULAR HEMOGLOBIN 23 pg (25-35); MEAN CORPUSCULAR HGB CONC 30 g/dL (31-37); MEAN CORPUSCULAR VOLUME 77 fL (79-100); MONO % 4 % (0-9); NEUT # 22.3 x10^3uL (1.8-7.7); NEUT % 91 % (31-73); PLATELET COUNT 344 x10^3/uL (140-400); RED BLOOD COUNT 2.95 x10^6/uL (3.50-5.40); RED CELL DISTRIBUTION WIDTH 24.1 % (11.5-14.5); WHITE BLOOD COUNT 24.5 x10^3/uL (4.0-11.0)
[2019-01-01 07:00] LABS: CALCIUM 8.8 mg/dL (8.5-10.1); CREATININE 0.8 mg/dL (0.6-1.0); GFR 84.6; POTASSIUM 4.3 mmol/L (3.5-5.1)
[2019-01-01] MEDS: PANTOPRAZOLE IV PUSH 40 MG VIAL. IVP SCH (07:33)
[2019-01-01] MEDS: HYDROmorphone 2 MG/ML VIAL IV PRN ×3 (07:33→21:35)
[2019-01-01 07:38] LABS: HEMOGLOBIN 6.8 g/dL (12.0-15.5)
--- NOTE | 2019-01-01 07:44 | NUR ---
Dr. Bob paged re: b 6.8.
--- NOTE | 2019-01-01 07:57 | PDOC ---
PULMONARY PROGRESS NOTES Subjective ng in, has some abd pain, has sob, cough, no sputum, on home 02 3lpm Vitals Vital Signs Date Time Temp Pulse Resp B/P (MAP) Pulse Ox O2 Delivery O2 Flow Rate FiO2 01/01/19 07:33 Nasal Cannula 3.0 01/01/19 07:11 95 01/01/19 03:07 98.2 102 20 104/77 (86) 98.2 ROS: No Nausea, No Chest Pain, No Increase Cough General: Alert, No acute distress HEENT: Other (nc at perrl) Lungs: Crackles Cardiovascular: S1, S2 Abdomen: Soft, Other (distended) Neuro Exam: Alert Extremities: No Edema Skin: Warm Labs Laboratory Tests Test 12/30/18 08:20 12/30/18 12:19 12/30/18 16:30 12/30/18 17:12 Urine Collection Type U cath Urine Color Yellow Urine Clarity Clear Urine pH 5.5 Urine Specific [place] >=1.030 Urine Protein 30 mg/dL (NEG-TRACE) Urine Glucose (UA) 500 mg/dL (NEG) Urine Ketones (Stick) Negative mg/dL (NEG) Urine Blood Negative (NEG) Urine Nitrite Negative (NEG) Urine Bilirubin Negative (NEG) Urine Urobilinogen Dipstick 0.2 mg/dL (0.2 mg/dL) Urine Leukocyte Esterase Negative (NEG) Urine RBC Occ /HPF (0-2) Urine WBC 1-4 /HPF (0-4) Urine Squamous Epithelial Cells Many /LPF Urine Amorphous Sediment Present /HPF Urine Bacteria Few /HPF (0-FEW) Urine Mucus Slight /LPF Glucose (Fingerstick) 255 mg/dL (70-99) 233 mg/dL (70-99) O2 Saturation 92 % (92-99) Arterial Blood pH 7.41 (7.35-7.45) Arterial Blood pCO2 at Patient Temp 42 mmHg (35-46) Arterial Blood pO2 at Patient Temp 72 mmHg (65-108) Arterial Blood HCO3 26 mmol/L (21-28) Arterial Blood Base Excess 2 mmol/L (-3-3) FiO2 60 Test 12/30/18 23:59 12/31/18 05:50 12/31/18 05:51 12/31/18 12:55 Glucose (Fingerstick) 256 mg/dL (70-99) 248 mg/dL (70-99) 224 mg/dL (70-99) White Blood Count 18.5 x10^3/uL (4.0-11.0) Red Blood Count 3.18 x10^6/uL (3.50-5.40) Hemoglobin 7.4 g/dL (12.0-15.5) Hematocrit 24.4 % (36.0-47.0) Mean Corpuscular Volume 77 fL (79-100) Mean Corpuscular Hemoglobin 23 pg (25-35) Mean Corpuscular Hemoglobin Concent 30 g/dL (31-37) Red Cell Distribution Width 23.6 % (11.5-14.5) Platelet Count 331 x10^3/uL (140-400) Neutrophils (%) (Auto) 91 % (31-73) Lymphocytes (%) (Auto) 5 % (24-48) Monocytes (%) (Auto) 5 % (0-9) Eosinophils (%) (Auto) 0 % (0-3) Basophils (%) (Auto) 0 % (0-3) Neutrophils # (Auto) 16.7 x10^3uL (1.8-7.7) Lymphocytes # (Auto) 0.9 x10^3/uL (1.0-4.8) Monocytes # (Auto) 0.8 x10^3/uL (0.0-1.1) Eosinophils # (Auto) 0.0 x10^3/uL (0.0-0.7) Basophils # (Auto) 0.0 x10^3/uL (0.0-0.2) Sodium Level 145 mmol/L (136-145) Potassium Level 4.9 mmol/L (3.5-5.1) Chloride Level 108 mmol/L (98-107) Carbon Dioxide Level 33 mmol/L (21-32) Anion Gap 4 (6-14) Blood Urea Nitrogen 32 mg/dL (7-20) Creatinine 0.8 mg/dL (0.6-1.0) Estimated GFR (Cockcroft-Gault) 84.6 BUN/Creatinine Ratio 40 (6-20) Glucose Level 252 mg/dL (70-99) Calcium Level 8.8 mg/dL (8.5-10.1) Total Bilirubin 0.5 mg/dL (0.2-1.0) Aspartate Amino Transf (AST/SGOT) 21 U/L (15-37) Alanine Aminotransferase (ALT/SGPT) 20 U/L (14-59) Alkaline Phosphatase 48 U/L (46-116) Total Protein 5.3 g/dL (6.4-8.2) Albumin 2.3 g/dL (3.4-5.0) Albumin/Globulin Ratio 0.8 (1.0-1.7) Test 12/31/18 18:08 01/01/19 00:29 01/01/19 06:13 01/01/19 06:16 Glucose (Fingerstick) 189 mg/dL (70-99) 240 mg/dL (70-99) 555 mg/dL (70-99) 282 mg/dL (70-99) Test 01/01/19 06:30 White Blood Count 24.5 x10^3/uL (4.0-11.0) Red Blood Count 2.95 x10^6/uL (3.50-5.40) Hemoglobin 6.8 g/dL (12.0-15.5) Hematocrit 22.6 % (36.0-47.0) Mean Corpuscular Volume 77 fL (79-100) Mean Corpuscular Hemoglobin 23 pg (25-35) Mean Corpuscular Hemoglobin Concent 30 g/dL (31-37) Red Cell Distribution Width 24.1 % (11.5-14.5) Platelet Count 344 x10^3/uL (140-400) Neutrophils (%) (Auto) 91 % (31-73) Lymphocytes (%) (Auto) 4 % (24-48) Monocytes (%) (Auto) 4 % (0-9) Eosinophils (%) (Auto) 1 % (0-3) Basophils (%) (Auto) 0 % (0-3) Neutrophils # (Auto) 22.3 x10^3uL (1.8-7.7) Lymphocytes # (Auto) 1.0 x10^3/uL (1.0-4.8) Monocytes # (Auto) 1.0 x10^3/uL (0.0-1.1) Eosinophils # (Auto) 0.1 x10^3/uL (0.0-0.7) Basophils # (Auto) 0.1 x10^3/uL (0.0-0.2) Sodium Level 143 mmol/L (136-145) Potassium Level 4.3 mmol/L (3.5-5.1) Chloride Level 106 mmol/L (98-107) Carbon Dioxide Level 31 mmol/L (21-32) Anion Gap 6 (6-14) Blood Urea Nitrogen 26 mg/dL (7-20) Creatinine 0.8 mg/dL (0.6-1.0) Estimated GFR (Cockcroft-Gault) 84.6 Glucose Level 277 mg/dL (70-99) Calcium Level 8.8 mg/dL (8.5-10.1) Laboratory Tests Test 12/31/18 12:55 12/31/18 18:08 01/01/19 00:29 01/01/19 06:13 Glucose (Fingerstick) 224 mg/dL (70-99) 189 mg/dL (70-99) 240 mg/dL (70-99) 555 mg/dL (70-99) Test 01/01/19 06:16 01/01/19 06:30 Glucose (Fingerstick) 282 mg/dL (70-99) White Blood Count 24.5 x10^3/uL (4.0-11.0) Red Blood Count 2.95 x10^6/uL (3.50-5.40) Hemoglobin 6.8 g/dL (12.0-15.5) Hematocrit 22.6 % (36.0-47.0) Mean Corpuscular Volume 77 fL (79-100) Mean Corpuscular Hemoglobin 23 pg (25-35) Mean Corpuscular Hemoglobin Concent 30 g/dL (31-37) Red Cell Distribution Width 24.1 % (11.5-14.5) Platelet Count 344 x10^3/uL (140-400) Neutrophils (%) (Auto) 91 % (31-73) Lymphocytes (%) (Auto) 4 % (24-48) Monocytes (%) (Auto) 4 % (0-9) Eosinophils (%) (Auto) 1 % (0-3) Basophils (%) (Auto) 0 % (0-3) Neutrophils # (Auto) 22.3 x10^3uL (1.8-7.7) Lymphocytes # (Auto) 1.0 x10^3/uL (1.0-4.8) Monocytes # (Auto) 1.0 x10^3/uL (0.0-1.1) Eosinophils # (Auto) 0.1 x10^3/uL (0.0-0.7) Basophils # (Auto) 0.1 x10^3/uL (0.0-0.2) Sodium Level 143 mmol/L (136-145) Potassium Level 4.3 mmol/L (3.5-5.1) Chloride Level 106 mmol/L (98-107) Carbon Dioxide Level 31 mmol/L (21-32) Anion Gap 6 (6-14) Blood Urea Nitrogen 26 mg/dL (7-20) Creatinine 0.8 mg/dL (0.6-1.0) Estimated GFR (Cockcroft-Gault) 84.6 Glucose Level 277 mg/dL (70-99) Calcium Level 8.8 mg/dL (8.5-10.1) Medications Active Scripts Medications Dose Route/Sig Max Daily Dose Days Date Category Chlorhexidine Gluconate 473 Ml Mouthwash 473 Ml MM BID 7 12/10/18 Rx Vitamin C (Ascorbate Calcium) 500 Mg Tablet 500 Mg PO DAILY 30 11/22/18 Rx Slow Release Iron (Ferrous Sulfate) 250 Mg Tablet.er 250 Mg PO DAILY 30 11/22/18 Rx Protonix (Pantoprazole Sodium) 40 Mg Granpkt.dr 40 Mg PO DAILY 30 11/22/18 Rx Metformin Hcl Er (Metformin Hcl) 500 Mg Tab.er.24h 1 Tab PO DAILY 11/12/16 Reported Namenda (Memantine Hcl) 10 Mg Tablet 1 Tab PO BID 11/12/16 Reported Losartan Potassium 100 Mg Tablet 100 Mg PO DAILY 11/12/16 Reported Spironolactone 25 Mg Tablet 1 Tab PO DAILY 11/12/16 Reported Ventolin Hfa Inhaler (Albuterol Sulfate) 18 Gm Hfa.aer.ad 2 Puff INH Q4HRS 11/11/16 Reported Cymbalta (Duloxetine Hcl) 20 Mg Capsule.dr 90 Mg PO DAILY 01/27/16 Reported Requip (Ropinirole Hcl) 1 Mg Tablet 3 Mg PO DAILY 01/27/16 Reported Amlodipine Besylate 10 Mg Tablet 10 Mg PO DAILY 01/27/16 Reported Impression . 1. Acute hypoxic respiratory failure MULTIFACTORIAL EXPECTED POST SURGICAL INTERVENTION 2. Gastrointestinal bleed/cecal ulceration by colonoscopy, status post laparoscopic-assisted right colon resection and hemorrhoidectomy 12/17 3. ileus S/P SECOND SURGERY 12/30 SEE BELOW 4. Underlying chronic obstructive pulmonary disease. 5. Abnormal CT chest with focal opacity in the right upper lobe, could be nodule/ATELECTASIS Date: 12/17/2018 Preoperative diagnosis: GI bleed cecal ulceration by colonoscopy with active bleeding hemorrhoids Postoperative diagnosis: Same Procedure: Laparoscopic-assisted right colon resection and hemorrhoidectomy Surgeon: Jan Specimen: Right colon and hemorrhoids Date: 12/30/2018 Preoperative diagnosis: Small bowel obstruction Postoperative diagnosis: Small bowel obstruction at previous anastomotic site Procedure: Exploratory laparotomy with extended right hemicolectomy and primary anastomosis Plan . reviewed CXR, l elevated HD, increased vm, lll effusion/atelectasis/ ?infilt , avoid vo UP TO CHAIR CONTINUE SUPPORT NG PER SURGEON IS, the importance of use discussed BD, NEBS FOLLOW UP CT IN [address] hoover D/W DAUGHTER discussed w pt AMBIKA GONZALEZ MD Jan 01, 2019 07:57
[2019-01-01] MEDS: FERROUS SULFATE 325 MG TABLET. PO SCH (08:00)
--- NOTE | 2019-01-01 08:03 | RAD ---
Examination: Lower Extremity Venous Doppler Ultrasound History: Left leg swelling Comparison: 11/28/2014 Procedure: Jeong scale, color flow 2D and spectal waveform analysis images are obtained with and without compression in the area of the common femoral vein, superficial femoral vein - femoral vein junction, main femoral vein (superficial femoral vein) and popliteal vein. Veins of the proximal calf are also imaged. Findings: There is normal duplex flow, color flow and compressibility of all visualized vein segments. No evidence of deep venous thrombus is present. Mild soft tissue edema left lower leg. Impression: No evidence of DVT in the visualized left lower extremity venous system. Electronically signed by: Bryon Lindquist MD (01/01/2019 7:59 AM) [facility]
[2019-01-01] MEDS: SPIRONOLACTONE 25 MG TABLET PO SCH (08:35)
[2019-01-01] MEDS: MEMANTINE 10 MG TABLET. PO SCH ×2 (08:35→19:58)
[2019-01-01] MEDS: DOCUSATE SODIUM 100 MG CAPSULE. PO SCH (08:35)
[2019-01-01] MEDS: DULoxetine HCL 30 MG CAPSULE.DR PO SCH (08:35)
[2019-01-01] MEDS: LOSARTAN POTASSIUM 50 MG TABLET. PO SCH (08:35)
[2019-01-01] MEDS: amLODIPine BESYLATE 10 MG TABLET PO SCH (08:35)
[2019-01-01] MEDS: ASCORBIC ACID 500 MG TABLET PO SCH (08:36)
--- NOTE | 2019-01-01 08:49 | NUR ---
Sepsis screen called on 01/01.
[2019-01-01] MEDS: CHLORHEXIDINE 0.12% 15 ML MOUTHWASH. MM SCH ×3 (09:00→21:09)
[2019-01-01] MEDS: ENOXAPARIN 40 MG/0.4 ML SYRINGE. SQ SCH (09:11)
--- NOTE | 2019-01-01 09:39 | NUR ---
Dr. Bob notified of sepsis screen called and Hgb 6.8.
[2019-01-01] MEDS: TPN PER PHARMACY MC PRN (10:42)
--- NOTE | 2019-01-01 10:44 | NUR ---
Pharmacy TPN Dosing Note S: ELLE LATHAM is a 72 year old F Currently receiving Central Continuous TPN started 12/23/18 B:Pertinent PMH: SBO Height: 5 feet, 7 inches Weight: [id number] kg Current diet: npo LABS: Sodium: 143 Potassium: 4.3 Chloride: 106 Calcium: 8.8 Corrected Calcium: 10.16 Magnesium: 2.1 CO2: 31 SCr: 0.8 Glucose: 282,277 Albumin: 2.3 AST: 21 ALT: 20 TPN FORMULA: TPN TYPE: Central Continuous AMINO ACIDS: 85 gm DEXTROSE: 260 gm LIPIDS: 40 gm SODIUM CHLORIDE: 90 mEq POTASSIUM CHLORIDE: 30 mEq POTASSIUM PHOSPHATE: 13.6 mmol MAGNESIUM: 15 mEq CALCIUM: 5 mEq MULTIPLE VITAMIN: 10 ml TRACE ELEMENTS: MTE5 1 ml(s) TPN PLAN: All lytes WNL. Next labs tomorrow. R: Continue TPN Will monitor electrolytes, glucose, and tolerance to TPN. Umair Oconnell, [facility], 01/01/19 [id number]
--- NOTE | 2019-01-01 11:12 | PDOC ---
SURGICAL PROGRESS NOTE Subjective Kris for Dr Montoya pt c/o abdominal incisional pain, worse with her cough daughter at bedside Vital Signs Vital Signs Date Time Temp Pulse Resp B/P (MAP) Pulse Ox O2 Delivery O2 Flow Rate FiO2 01/01/19 08:35 102 104/77 01/01/19 08:34 Nasal Cannula 3.0 01/01/19 07:11 95 01/01/19 07:00 97.6 20 97.6 I&O Intake and Output 01/01/19 06:59 Intake Total 3710 ml Output Total 1225 ml Balance 2485 ml Intake Oral 0 ml IV Total 1855 ml Other 1855 ml Output Urine Total 1225 ml PATIENT HAS A PILLAI: Yes General: Alert Lungs: Other (increased rate, upper airway noise) Labs Laboratory Tests Test 12/30/18 12:19 12/30/18 16:30 12/30/18 17:12 12/30/18 23:59 Glucose (Fingerstick) 255 mg/dL (70-99) 233 mg/dL (70-99) 256 mg/dL (70-99) O2 Saturation 92 % (92-99) Arterial Blood pH 7.41 (7.35-7.45) Arterial Blood pCO2 at Patient Temp 42 mmHg (35-46) Arterial Blood pO2 at Patient Temp 72 mmHg (65-108) Arterial Blood HCO3 26 mmol/L (21-28) Arterial Blood Base Excess 2 mmol/L (-3-3) FiO2 60 Test 12/31/18 05:50 12/31/18 05:51 12/31/18 12:55 12/31/18 18:08 White Blood Count 18.5 x10^3/uL (4.0-11.0) Red Blood Count 3.18 x10^6/uL (3.50-5.40) Hemoglobin 7.4 g/dL (12.0-15.5) Hematocrit 24.4 % (36.0-47.0) Mean Corpuscular Volume 77 fL (79-100) Mean Corpuscular Hemoglobin 23 pg (25-35) Mean Corpuscular Hemoglobin Concent 30 g/dL (31-37) Red Cell Distribution Width 23.6 % (11.5-14.5) Platelet Count 331 x10^3/uL (140-400) Neutrophils (%) (Auto) 91 % (31-73) Lymphocytes (%) (Auto) 5 % (24-48) Monocytes (%) (Auto) 5 % (0-9) Eosinophils (%) (Auto) 0 % (0-3) Basophils (%) (Auto) 0 % (0-3) Neutrophils # (Auto) 16.7 x10^3uL (1.8-7.7) Lymphocytes # (Auto) 0.9 x10^3/uL (1.0-4.8) Monocytes # (Auto) 0.8 x10^3/uL (0.0-1.1) Eosinophils # (Auto) 0.0 x10^3/uL (0.0-0.7) Basophils # (Auto) 0.0 x10^3/uL (0.0-0.2) Sodium Level 145 mmol/L (136-145) Potassium Level 4.9 mmol/L (3.5-5.1) Chloride Level 108 mmol/L (98-107) Carbon Dioxide Level 33 mmol/L (21-32) Anion Gap 4 (6-14) Blood Urea Nitrogen 32 mg/dL (7-20) Creatinine 0.8 mg/dL (0.6-1.0) Estimated GFR (Cockcroft-Gault) 84.6 BUN/Creatinine Ratio 40 (6-20) Glucose Level 252 mg/dL (70-99) Calcium Level 8.8 mg/dL (8.5-10.1) Total Bilirubin 0.5 mg/dL (0.2-1.0) Aspartate Amino Transf (AST/SGOT) 21 U/L (15-37) Alanine Aminotransferase (ALT/SGPT) 20 U/L (14-59) Alkaline Phosphatase 48 U/L (46-116) Total Protein 5.3 g/dL (6.4-8.2) Albumin 2.3 g/dL (3.4-5.0) Albumin/Globulin Ratio 0.8 (1.0-1.7) Glucose (Fingerstick) 248 mg/dL (70-99) 224 mg/dL (70-99) 189 mg/dL (70-99) Test 01/01/19 00:29 01/01/19 06:13 01/01/19 06:16 01/01/19 06:30 Glucose (Fingerstick) 240 mg/dL (70-99) 555 mg/dL (70-99) 282 mg/dL (70-99) White Blood Count 24.5 x10^3/uL (4.0-11.0) Red Blood Count 2.95 x10^6/uL (3.50-5.40) Hemoglobin 6.8 g/dL (12.0-15.5) Hematocrit 22.6 % (36.0-47.0) Mean Corpuscular Volume 77 fL (79-100) Mean Corpuscular Hemoglobin 23 pg (25-35) Mean Corpuscular Hemoglobin Concent 30 g/dL (31-37) Red Cell Distribution Width 24.1 % (11.5-14.5) Platelet Count 344 x10^3/uL (140-400) Neutrophils (%) (Auto) 91 % (31-73) Lymphocytes (%) (Auto) 4 % (24-48) Monocytes (%) (Auto) 4 % (0-9) Eosinophils (%) (Auto) 1 % (0-3) Basophils (%) (Auto) 0 % (0-3) Neutrophils # (Auto) 22.3 x10^3uL (1.8-7.7) Lymphocytes # (Auto) 1.0 x10^3/uL (1.0-4.8) Monocytes # (Auto) 1.0 x10^3/uL (0.0-1.1) Eosinophils # (Auto) 0.1 x10^3/uL (0.0-0.7) Basophils # (Auto) 0.1 x10^3/uL (0.0-0.2) Sodium Level 143 mmol/L (136-145) Potassium Level 4.3 mmol/L (3.5-5.1) Chloride Level 106 mmol/L (98-107) Carbon Dioxide Level 31 mmol/L (21-32) Anion Gap 6 (6-14) Blood Urea Nitrogen 26 mg/dL (7-20) Creatinine 0.8 mg/dL (0.6-1.0) Estimated GFR (Cockcroft-Gault) 84.6 Glucose Level 277 mg/dL (70-99) Calcium Level 8.8 mg/dL (8.5-10.1) Test 01/01/19 09:20 Lactic Acid Level 1.0 mmol/L (0.4-2.0) Laboratory Tests Test 12/31/18 12:55 12/31/18 18:08 01/01/19 00:29 01/01/19 06:13 Glucose (Fingerstick) 224 mg/dL (70-99) 189 mg/dL (70-99) 240 mg/dL (70-99) 555 mg/dL (70-99) Test 01/01/19 06:16 01/01/19 06:30 01/01/19 09:20 Glucose (Fingerstick) 282 mg/dL (70-99) White Blood Count 24.5 x10^3/uL (4.0-11.0) Red Blood Count 2.95 x10^6/uL (3.50-5.40) Hemoglobin 6.8 g/dL (12.0-15.5) Hematocrit 22.6 % (36.0-47.0) Mean Corpuscular Volume 77 fL (79-100) Mean Corpuscular Hemoglobin 23 pg (25-35) Mean Corpuscular Hemoglobin Concent 30 g/dL (31-37) Red Cell Distribution Width 24.1 % (11.5-14.5) Platelet Count 344 x10^3/uL (140-400) Neutrophils (%) (Auto) 91 % (31-73) Lymphocytes (%) (Auto) 4 % (24-48) Monocytes (%) (Auto) 4 % (0-9) Eosinophils (%) (Auto) 1 % (0-3) Basophils (%) (Auto) 0 % (0-3) Neutrophils # (Auto) 22.3 x10^3uL (1.8-7.7) Lymphocytes # (Auto) 1.0 x10^3/uL (1.0-4.8) Monocytes # (Auto) 1.0 x10^3/uL (0.0-1.1) Eosinophils # (Auto) 0.1 x10^3/uL (0.0-0.7) Basophils # (Auto) 0.1 x10^3/uL (0.0-0.2) Sodium Level 143 mmol/L (136-145) Potassium Level 4.3 mmol/L (3.5-5.1) Chloride Level 106 mmol/L (98-107) Carbon Dioxide Level 31 mmol/L (21-32) Anion Gap 6 (6-14) Blood Urea Nitrogen 26 mg/dL (7-20) Creatinine 0.8 mg/dL (0.6-1.0) Estimated GFR (Cockcroft-Gault) 84.6 Glucose Level 277 mg/dL (70-99) Calcium Level 8.8 mg/dL (8.5-10.1) Lactic Acid Level 1.0 mmol/L (0.4-2.0) Assessment/Plan POD 2 open right colon resection chronic hypoxia on home O2 cough pulmonary following will get CXR continue NG, supportive care SAKINA PÉREZ MD Jan 01, 2019 11:12
--- NOTE | 2019-01-01 11:23 | PDOC ---
PROGRESS NOTES Chief Complaint Chief Complaint CC: Anemia, colonic Avms Acute hypoxic respiratory failure Cecal ulceration - s/p rt colon resection and hemorrhoidectomy 12/17 SBO - s/p ex lap, extended rt hemicolectomy POD2 VISHNU COPD Sepsis/Leukopenia - meropenem and vanco, ID following History of Present Illness History of Present Illness Pt is a 73 y/o female who is s/p rt colon resection and hemorrhoidectomy on and s/p ex lap, extended rt hemicolectomy POD2. Today she was seen and examined in her bed. She is in mild distress. Trouble breathing. Appears ill. She states she "had a bad night". I discussed the pt with her RN. Will add vanco per pharmacy. Transfuse 1 unit of packed RBC, Hgb was 6.8 this morning. RN ordered lactic level. Vitals Vitals Vital Signs Date Time Temp Pulse Resp B/P (MAP) Pulse Ox O2 Delivery O2 Flow Rate FiO2 01/01/19 08:35 102 104/77 01/01/19 08:34 Nasal Cannula 3.0 01/01/19 07:11 95 01/01/19 07:00 97.6 20 97.6 Physical Exam Physical Exam GENERAL: awake alert HEENT:no icterus, ngt + NECK: Supple LUNGS: Clear anteriorly HEART: S1, S2 ABDOMEN: Distended, soft, hypoactive BS. dressings dry EXTREMITIES: No edema or cyanosis. SKIN: No rash. Rectal wound clean NEUROLOGIC: alert awake Dunn in place RUE-PICC (12/23) clean General: Alert, mild distress Heart: Regular rate, Normal S1, Normal S2, No murmurs Lungs: Wheezing, Crackles Abdomen: Soft, Other (dressing clean, dry and intact. TTP throughout) Extremities: No clubbing, No cyanosis, No edema Skin: No significant lesion Labs LABS Laboratory Tests Test 12/31/18 12:55 12/31/18 18:08 01/01/19 00:29 01/01/19 06:13 Glucose (Fingerstick) 224 mg/dL (70-99) 189 mg/dL (70-99) 240 mg/dL (70-99) 555 mg/dL (70-99) Test 01/01/19 06:16 01/01/19 06:30 2/16/19 09:20 Glucose (Fingerstick) 282 mg/dL (70-99) White Blood Count 24.5 x10^3/uL (4.0-11.0) Red Blood Count 2.95 x10^6/uL (3.50-5.40) Hemoglobin 6.8 g/dL (12.0-15.5) Hematocrit 22.6 % (36.0-47.0) Mean Corpuscular Volume 77 fL (79-100) Mean Corpuscular Hemoglobin 23 pg (25-35) Mean Corpuscular Hemoglobin Concent 30 g/dL (31-37) Red Cell Distribution Width 24.1 % (11.5-14.5) Platelet Count 344 x10^3/uL (140-400) Neutrophils (%) (Auto) 91 % (31-73) Lymphocytes (%) (Auto) 4 % (24-48) Monocytes (%) (Auto) 4 % (0-9) Eosinophils (%) (Auto) 1 % (0-3) Basophils (%) (Auto) 0 % (0-3) Neutrophils # (Auto) 22.3 x10^3uL (1.8-7.7) Lymphocytes # (Auto) 1.0 x10^3/uL (1.0-4.8) Monocytes # (Auto) 1.0 x10^3/uL (0.0-1.1) Eosinophils # (Auto) 0.1 x10^3/uL (0.0-0.7) Basophils # (Auto) 0.1 x10^3/uL (0.0-0.2) Sodium Level 143 mmol/L (136-145) Potassium Level 4.3 mmol/L (3.5-5.1) Chloride Level 106 mmol/L (98-107) Carbon Dioxide Level 31 mmol/L (21-32) Anion Gap 6 (6-14) Blood Urea Nitrogen 26 mg/dL (7-20) Creatinine 0.8 mg/dL (0.6-1.0) Estimated GFR (Cockcroft-Gault) 84.6 Glucose Level 277 mg/dL (70-99) Calcium Level 8.8 mg/dL (8.5-10.1) Lactic Acid Level 1.0 mmol/L (0.4-2.0) Review of Systems Review of Systems Gen: feels bad, complains of fatigue Heart: denies CP, palp Lung: mild SOA, cough GI: abdominal pain, denies N/V Assessment and Plan Assessmemt and Plan Assessment CC: Anemia, colonic Avms Acute hypoxic respiratory failure Cecal ulceration - s/p rt colon resection and hemorrhoidectomy 12/17 SBO - s/p ex lap, extended rt hemicolectomy POD1 VISHNU COPD Sepsis/Leukopenia - meropenem and vanco, ID following Plan Transfuse 1 unit packed RBC, Hgb 6.8 this morning Abx - IV meropenem, add vanco per pharmacy ID following Sepsis protocol TPN BiPAP PRN Breathing treatments PRN PRN narcotics Wound care Follow labs PT/OT Home meds Appreciate subspecialist input Comment Review of Relevant I have reviewed the following items abdifatah (where applicable) has been applied. Labs Laboratory Tests Test 12/30/18 12:19 12/30/18 16:30 12/30/18 17:12 12/30/18 23:59 Glucose (Fingerstick) 255 mg/dL (70-99) 233 mg/dL (70-99) 256 mg/dL (70-99) O2 Saturation 92 % (92-99) Arterial Blood pH 7.41 (7.35-7.45) Arterial Blood pCO2 at Patient Temp 42 mmHg (35-46) Arterial Blood pO2 at Patient Temp 72 mmHg (65-108) Arterial Blood HCO3 26 mmol/L (21-28) Arterial Blood Base Excess 2 mmol/L (-3-3) FiO2 60 Test 12/31/18 05:50 12/31/18 05:51 12/31/18 12:55 12/31/18 18:08 White Blood Count 18.5 x10^3/uL (4.0-11.0) Red Blood Count 3.18 x10^6/uL (3.50-5.40) Hemoglobin 7.4 g/dL (12.0-15.5) Hematocrit 24.4 % (36.0-47.0) Mean Corpuscular Volume 77 fL (79-100) Mean Corpuscular Hemoglobin 23 pg (25-35) Mean Corpuscular Hemoglobin Concent 30 g/dL (31-37) Red Cell Distribution Width 23.6 % (11.5-14.5) Platelet Count 331 x10^3/uL (140-400) Neutrophils (%) (Auto) 91 % (31-73) Lymphocytes (%) (Auto) 5 % (24-48) Monocytes (%) (Auto) 5 % (0-9) Eosinophils (%) (Auto) 0 % (0-3) Basophils (%) (Auto) 0 % (0-3) Neutrophils # (Auto) 16.7 x10^3uL (1.8-7.7) Lymphocytes # (Auto) 0.9 x10^3/uL (1.0-4.8) Monocytes # (Auto) 0.8 x10^3/uL (0.0-1.1) Eosinophils # (Auto) 0.0 x10^3/uL (0.0-0.7) Basophils # (Auto) 0.0 x10^3/uL (0.0-0.2) Sodium Level 145 mmol/L (136-145) Potassium Level 4.9 mmol/L (3.5-5.1) Chloride Level 108 mmol/L (98-107) Carbon Dioxide Level 33 mmol/L (21-32) Anion Gap 4 (6-14) Blood Urea Nitrogen 32 mg/dL (7-20) Creatinine 0.8 mg/dL (0.6-1.0) Estimated GFR (Cockcroft-Gault) 84.6 BUN/Creatinine Ratio 40 (6-20) Glucose Level 252 mg/dL (70-99) Calcium Level 8.8 mg/dL (8.5-10.1) Total Bilirubin 0.5 mg/dL (0.2-1.0) Aspartate Amino Transf (AST/SGOT) 21 U/L (15-37) Alanine Aminotransferase (ALT/SGPT) 20 U/L (14-59) Alkaline Phosphatase 48 U/L (46-116) Total Protein 5.3 g/dL (6.4-8.2) Albumin 2.3 g/dL (3.4-5.0) Albumin/Globulin Ratio 0.8 (1.0-1.7) Glucose (Fingerstick) 248 mg/dL (70-99) 224 mg/dL (70-99) 189 mg/dL (70-99) Test 01/01/19 00:29 01/01/19 06:13 01/01/19 06:16 01/01/19 06:30 Glucose (Fingerstick) 240 mg/dL (70-99) 555 mg/dL (70-99) 282 mg/dL (70-99) White Blood Count 24.5 x10^3/uL (4.0-11.0) Red Blood Count 2.95 x10^6/uL (3.50-5.40) Hemoglobin 6.8 g/dL (12.0-15.5) Hematocrit 22.6 % (36.0-47.0) Mean Corpuscular Volume 77 fL (79-100) Mean Corpuscular Hemoglobin 23 pg (25-35) Mean Corpuscular Hemoglobin Concent 30 g/dL (31-37) Red Cell Distribution Width 24.1 % (11.5-14.5) Platelet Count 344 x10^3/uL (140-400) Neutrophils (%) (Auto) 91 % (31-73) Lymphocytes (%) (Auto) 4 % (24-48) Monocytes (%) (Auto) 4 % (0-9) Eosinophils (%) (Auto) 1 % (0-3) Basophils (%) (Auto) 0 % (0-3) Neutrophils # (Auto) 22.3 x10^3uL (1.8-7.7) Lymphocytes # (Auto) 1.0 x10^3/uL (1.0-4.8) Monocytes # (Auto) 1.0 x10^3/uL (0.0-1.1) Eosinophils # (Auto) 0.1 x10^3/uL (0.0-0.7) Basophils # (Auto) 0.1 x10^3/uL (0.0-0.2) Sodium Level 143 mmol/L (136-145) Potassium Level 4.3 mmol/L (3.5-5.1) Chloride Level 106 mmol/L (98-107) Carbon Dioxide Level 31 mmol/L (21-32) Anion Gap 6 (6-14) Blood Urea Nitrogen 26 mg/dL (7-20) Creatinine 0.8 mg/dL (0.6-1.0) Estimated GFR (Cockcroft-Gault) 84.6 Glucose Level 277 mg/dL (70-99) Calcium Level 8.8 mg/dL (8.5-10.1) Test 01/01/19 09:20 Lactic Acid Level 1.0 mmol/L (0.4-2.0) Laboratory Tests Test 12/31/18 12:55 12/31/18 18:08 01/01/19 00:29 01/01/19 06:13 Glucose (Fingerstick) 224 mg/dL (70-99) 189 mg/dL (70-99) 240 mg/dL (70-99) 555 mg/dL (70-99) Test 01/01/19 06:16 01/01/19 06:30 01/01/19 09:20 Glucose (Fingerstick) 282 mg/dL (70-99) White Blood Count 24.5 x10^3/uL (4.0-11.0) Red Blood Count 2.95 x10^6/uL (3.50-5.40) Hemoglobin 6.8 g/dL (12.0-15.5) Hematocrit 22.6 % (36.0-47.0) Mean Corpuscular Volume 77 fL (79-100) Mean Corpuscular Hemoglobin 23 pg (25-35) Mean Corpuscular Hemoglobin Concent 30 g/dL (31-37) Red Cell Distribution Width 24.1 % (11.5-14.5) Platelet Count 344 x10^3/uL (140-400) Neutrophils (%) (Auto) 91 % (31-73) Lymphocytes (%) (Auto) 4 % (24-48) Monocytes (%) (Auto) 4 % (0-9) Eosinophils (%) (Auto) 1 % (0-3) Basophils (%) (Auto) 0 % (0-3) Neutrophils # (Auto) 22.3 x10^3uL (1.8-7.7) Lymphocytes # (Auto) 1.0 x10^3/uL (1.0-4.8) Monocytes # (Auto) 1.0 x10^3/uL (0.0-1.1) Eosinophils # (Auto) 0.1 x10^3/uL (0.0-0.7) Basophils # (Auto) 0.1 x10^3/uL (0.0-0.2) Sodium Level 143 mmol/L (136-145) Potassium Level 4.3 mmol/L (3.5-5.1) Chloride Level 106 mmol/L (98-107) Carbon Dioxide Level 31 mmol/L (21-32) Anion Gap 6 (6-14) Blood Urea Nitrogen 26 mg/dL (7-20) Creatinine 0.8 mg/dL (0.6-1.0) Estimated GFR (Cockcroft-Gault) 84.6 Glucose Level 277 mg/dL (70-99) Calcium Level 8.8 mg/dL (8.5-10.1) Lactic Acid Level 1.0 mmol/L (0.4-2.0) Microbiology 12/21/18 Blood Culture - Final, Complete NO GROWTH AFTER 5 DAYS 12/25/18 - Final, Complete 12/25/18 - Final, Complete 12/25/18 - Final, Complete 12/25/18 - Final, Complete 12/25/18 Gram Stain Evaluation - Final, Complete 12/25/18 Sputum Culture - Final, Complete 12/25/18 Sputum Result 1 - Final, Complete Medications Current Medications Sodium Chloride 1,000 ml @ 1,000 mls/hr 1X ONCE IV Last administered on at 13:52; Start 12/14/18 at 13:30; Stop 12/14/18 at 14:29; Status DC Amlodipine Besylate (Norvasc) 10 mg DAILY PO Last administered on 12/26/18 10: 01; Start 12/14/18 at 17:00 Chlorhexidine Gluconate (Peridex) 15 ml BID MM Last administered on 01/01/19at 09:19; Start 12/14/18 at 21:00 Non-Formulary Medication (Albuterol Sulfate (Ventolin Hfa Inhaler)) 2 puff Q4HRS INH ; Start 12/14/18 at 20:00; Status UNV Ascorbic Acid (Vitamin C) 500 mg DAILY PO Last administered on 12/22/18 10:30; Start 12/14/18 at 17:00 Duloxetine HCl (Cymbalta) 90 mg DAILY PO Last administered on 12/22/18 10:30; Start 12/14/18 at 17:00 Ferrous Sulfate (Feosol) 325 mg DAILYWBKFT PO Last administered on 12/22/18 10: 30; Start 12/14/18 at 17:00 Losartan Potassium (Cozaar) 100 mg DAILY PO Last administered on 12/22/18 10:29 ; Start 12/14/18 at 17:00 Memantine (Namenda) 10 mg BID PO Last administered on 12/26/18 21:25; Start at 21:00 Pantoprazole Sodium (Protonix) 40 mg DAILYAC PO Last administered on 12/22/18 05:28; Start 12/14/18 at 17:00; Stop 12/24/18 at 09:25; Status DC Ropinirole HCl (Requip) 3 mg QHS PO Last administered on 12/26/18 21:25; Start 12/14/18 at 21:00 Spironolactone (Aldactone) 25 mg DAILY PO Last administered on 12/26/18 10:42 ; Start 12/14/18 at 17:00 Albuterol Sulfate (Ventolin Neb Soln) 2.5 mg Q4HRS NEB Last administered on 07:10; Start 12/14/18 at 20:00 Sodium Chloride 1,000 ml @ 80 mls/hr [id number] IV Last administered on 12/23/18at 15:25; Start 12/14/18 at 17:15; Stop 12/23/18 at 21:59; Status DC Acetaminophen (Tylenol) 650 mg PRN Q6HRS PRN PO Pain Last administered on 21:27; Start 12/15/18 at 04:45; Stop 12/26/18 at 21:07; Status DC Polyethylene Glycol (miraLAX Powder BULK BOTTLE) 238 gm 1X ONCE PO Last administered on 12/15/18at 12:48; Start 12/15/18 at 12:00; Stop 12/15/18 at 12:01 ; Status DC Ondansetron HCl (Zofran) 4 mg PRN Q6HRS PRN IV NAUSEA/VOMITING; Start 12/16/18 at 07:00; Stop 12/17/18 at 06:59; Status DC Fentanyl Citrate (Fentanyl 2ml Vial) 25 mcg PRN Q5MIN PRN IV MILD PAIN; Start 12/16/18 at 07:00; Stop 12/16/18 at 16:33; Status DC Fentanyl Citrate (Fentanyl 2ml Vial) 50 mcg PRN Q5MIN PRN IV MODERATE TO SEVERE PAIN; Start 12/16/18 at 07:00; Stop 12/16/18 at 16:33; Status DC Morphine Sulfate (Morphine Sulfate) 1 mg PRN Q10MIN PRN IV SEVERE PAIN; Start 12/16/18 at 07:00; Stop 12/17/18 at 06:59; Status DC Ringer's Solution 1,000 ml @ 30 mls/hr Q24H IV Last administered on 12/16/18at 13:00; Start 12/16/18 at 07:00; Stop 12/16/18 at 18:59; Status DC Lidocaine HCl (Xylocaine-Mpf 1% 2ml Vial) 2 ml PRN 1X PRN ID IV START; Start at 07:00; Stop 12/17/18 at 06:59; Status DC Hydromorphone HCl (Dilaudid) 0.5 mg PRN Q10MIN PRN IV SEV PAIN, Second choice; Start 12/16/18 at 07:00; Stop 12/17/18 at 06:59; Status DC Prochlorperazine Edisylate (Compazine) 5 mg PACU PRN PRN IV NAUSEA, MRX1; Start 12/16/18 at 07:00; Stop 12/17/18 at 06:59; Status DC Midazolam HCl (Versed) 2 mg PRN 1X PRN IV PRIOR TO PROCEDURE; Start 12/16/18 at 07:15; Stop 12/17/18 at 07:14; Status DC Fentanyl Citrate (Fentanyl 2ml Vial) 25 mcg PRN Q5MIN PRN IV X 2 DOSES FOR PAIN ; Start 12/16/18 at 07:15; Stop 12/16/18 at 16:33; Status DC Fentanyl Citrate (Fentanyl 2ml Vial) 50 mcg PRN Q5MIN PRN IV X 2 DOSES FOR PAIN ; Start 12/16/18 at 07:15; Stop 12/16/18 at 16:34; Status DC Ringer's Solution 1,000 ml @ 125 mls/hr Q8H IV ; Start 12/16/18 at 07:13; Stop 12/16/18 at 19:12; Status DC Lidocaine HCl (Xylocaine-Mpf 1% 2ml Vial) 2 ml 1X PRN PRN ID IV START; Start at 07:15; Stop 12/17/18 at 07:14; Status DC Propofol 40 ml @ As Directed STK-MED ONCE IV ; Start 12/16/18 at 13:58; Stop at 14:00; Status DC Prochlorperazine Edisylate (Compazine) 5 mg PACU PRN PRN IV NAUSEA, MRX1; Start 12/17/18 at 07:00; Stop 12/18/18 at 06:59; Status DC Hydromorphone HCl (Dilaudid) 0.5 mg PRN Q10MIN PRN IV SEV PAIN, Second choice; Start 12/17/18 at 07:00; Stop 12/18/18 at 06:59; Status DC Lidocaine HCl (Xylocaine-Mpf 1% 2ml Vial) 2 ml PRN 1X PRN ID IV START; Start at 07:00; Stop 12/18/18 at 06:59; Status DC Ringer's Solution 1,000 ml @ 30 mls/hr Q24H IV Last administered on 12/17/18at 10:34; Start 12/17/18 at 07:00; Stop 12/17/18 at 18:59; Status DC Morphine Sulfate (Morphine Sulfate) 1 mg PRN Q10MIN PRN IV SEVERE PAIN; Start 12/17/18 at 07:00; Stop 12/18/18 at 06:59; Status DC Fentanyl Citrate (Fentanyl 2ml Vial) 50 mcg PRN Q5MIN PRN IV MODERATE TO SEVERE PAIN Last administered on 12/17/18at 11:13; Start 12/17/18 at 07:00; Stop at 06:59; Status DC Fentanyl Citrate (Fentanyl 2ml Vial) 25 mcg PRN Q5MIN PRN IV MILD PAIN; Start 12/17/18 at 07:00; Stop 12/18/18 at 06:59; Status DC Ondansetron HCl (Zofran) 4 mg PRN Q6HRS PRN IV NAUSEA/VOMITING; Start 12/17/18 at 07:00; Stop 12/18/18 at 06:59; Status DC Propofol 20 ml @ As Directed STK-MED ONCE IV ; Start 12/17/18 at 07:21; Stop 12/17 at 07:23; Status DC Albuterol Sulfate (Ventolin Neb Soln) 2.5 mg 1X ONCE NEB ; Start 12/17/18 at 07: 30; Stop 12/17/18 at 07:31; Status DC Lidocaine HCl (Lidocaine Pf 2% Vial) 5 ml STK-MED ONCE .ROUTE ; Start 12/17/18 at 07:21; Stop 12/17/18 at 07:23; Status DC Succinylcholine Chloride (Anectine) 200 mg STK-MED ONCE .ROUTE ; Start 12/17/18 at 07:21; Stop 12/17/18 at 07:23; Status DC Rocuronium [place] (Zemuron) 50 mg STK-MED ONCE .ROUTE ; Start 12/17/18 at 07:21 ; Stop 12/17/18 at 07:23; Status DC Fentanyl Citrate (Fentanyl 2ml Vial) 100 mcg STK-MED ONCE .ROUTE ; Start at 07:21; Stop 12/17/18 at 07:24; Status DC Cefazolin Sodium/ Dextrose 50 ml @ 100 mls/hr 1X ONCE IV Last administered on 12/17/18at 08:07; Start 12/17/18 at 07:45; Stop 12/17/18 at 08:18; Status DC Bupivacaine HCl/ Epinephrine Bitart (Sensorcain-Mpf Epi 0.5%-1:[id number]) 30 ml STK -MED ONCE .ROUTE Last administered on 12/17/18at 08:34; Start 12/17/18 at 07:46; Stop 12/17/18 at 07:49; Status DC Neomycin/ Polymyxin/ Bacitracin (Triple Antibiotic Ointment) 1 pkt STK-MED ONCE TP Last administered on 12/17/18at 10:07; Start 12/17/18 at 07:46; Stop 12/17/18 at 07:49; Status DC Neomycin/ Polymyxin/ Bacitracin (Triple Antibiotic Ointment) 1 pkt STK-MED ONCE TP Last administered on 12/17/18at 10:07; Start 12/17/18 at 07:46; Stop 12/17/18 at 07:49; Status DC Neomycin/ Polymyxin/ Bacitracin (Triple Antibiotic Ointment) 1 pkt STK-MED ONCE TP ; Start 12/17/18 at 07:47; Stop 12/17/18 at 07:49; Status DC Dexamethasone Sodium Phosphate (Decadron) 20 mg STK-MED ONCE .ROUTE ; Start 12/17 at 07:54; Stop 12/17/18 at 07:56; Status DC Hydrocortisone Sodium Succinate (Solu-CORTEF) 100 mg STK-MED ONCE .ROUTE ; Start 12/17/18 at 07:54; Stop 12/17/18 at 07:56; Status DC Desflurane (Suprane) 90 ml STK-MED ONCE IH ; Start 12/17/18 at 07:54; Stop at 07:56; Status DC Neostigmine Methylsulfate (Bloxiverz) 10 mg STK-MED ONCE .ROUTE ; Start 12/17/18 at 08:21; Stop 12/17/18 at 08:24; Status DC Glycopyrrolate (Robinul) 1 mg STK-MED ONCE .ROUTE ; Start 12/17/18 at 08:21; Stop 12/17/18 at 08:24; Status DC Phenylephrine HCl (Bogdan-Synephrine Inj) 10 mg STK-MED ONCE .ROUTE ; Start at 08:23; Stop 12/17/18 at 08:26; Status DC Desflurane (Suprane) 60 ml STK-MED ONCE IH ; Start 12/17/18 at 09:23; Stop at 09:26; Status DC Bupivacaine HCl/ Epinephrine Bitart (Sensorcain-Mpf Epi 0.5%-1:[id number]) 30 ml STK -MED ONCE .ROUTE Last administered on 12/17/18at 10:06; Start 12/17/18 at 09:41; Stop 12/17/18 at 09:43; Status DC Morphine Sulfate (Morphine Sulfate) 2 mg PRN Q2HR PRN IV PAIN Last administered on 12/25/18at 09:26; Start 12/17/18 at 10:15; Stop 12/25/18 at 17:54; Status DC Ketorolac Tromethamine (Toradol 15mg Vial) 15 mg Q6HRS IV Last administered on 12/18/18at 05:39; Start 12/17/18 at 12:00; Stop 12/18/18 at 10:00; Status DC Artificial Tears (Artificial Tears) 1 drop PRN Q15MIN PRN OU DRY EYE Last administered on 12/20/18at 21:28; Start 12/18/18 at 08:00 Docusate Sodium (Colace) 100 mg DAILY PO Last administered on 12/26/18 10:01; Start 12/18/18 at 10:00 Throat Lozenges (Cepacol Sore Throat Lozenge) 1 kristyn PRN Q2HRS PRN PO SORE THROAT Last administered on 12/26/18 10:01; Start 12/18/18 at 14:00 Enoxaparin Sodium (Lovenox 40mg Syringe) 40 mg Q24H SQ Last administered on 09:11; Start 12/19/18 at 09:00 Ondansetron HCl (Zofran) 4 mg PRN Q6HRS PRN IV NAUSEA/VOMITING Last administered on 12/31/18 16:31; Start 12/19/18 at 11:30 Insulin Human Lispro (HumaLOG) 0-5 UNITS TIDWMEALS SQ Last administered on 12/30 18:23; Start 12/19/18 at 17:00; Stop 12/31/18 at 00:05; Status DC Dextrose (Dextrose 50%-Water Syringe) 12.5 gm PRN Q15MIN PRN IV SEE COMMENTS; Start 12/19/18 at 16:45 Levofloxacin/ Dextrose 100 ml @ 100 mls/hr 1X ONCE IV Last administered on 20:56; Start 12/19/18 at 21:00; Stop 12/19/18 at 21:59; Status DC Cefepime HCl (Maxipime) 2 gm Q12HR IVP Last administered on 12/29/18 10:02; Start 12/21/18 at 10:00; Stop 12/29/18 at 10:37; Status DC Sodium Chloride 1,000 ml @ 125 mls/hr 1X ONCE IV Last administered on 10:43; Start 12/21/18 at 09:45; Stop 12/21/18 at 17:44; Status DC Calcium Carbonate/ Glycine (Tums) 500 mg PRN AFTMEALHC PRN PO INDIGESTION Last administered on 12/21/18 13:10; Start 12/21/18 at 12:15 Lorazepam (Ativan) 1 mg 1X ONCE IV Last administered on 2/5/19at 17:50; Start 12/21/18 at 17:30; Stop 12/21/18 at 17:31; Status DC Albuterol Sulfate (Ventolin Neb Soln) 2.5 mg PRN Q2HRS PRN NEB SHORTNESS OF BREATH Last administered on 12/26/18 10:26; Start 12/21/18 at 17:30 Nicotine (Nicoderm Cq 14mg) 1 patch PRN DAILY PRN TD SMOKING CESSATION Last administered on 12/26/18 09:59; Start 12/21/18 at 19:30 Lorazepam (Ativan) 1 mg 1X ONCE IV Last administered on 12/21/18 23:45; Start 12/21/18 at 23:45; Stop 12/21/18 at 23:46; Status DC Lorazepam (Ativan) 1 mg PRN Q4HRS PRN IV ANXIETY / AGITATION Last administered on 12/22/18 11:15; Start 12/21/18 at 23:30; Stop 12/22/18 at 14:42; Status DC Sodium Chloride 1,000 ml @ 250 mls/hr 1X ONCE IV Last administered on 09:15; Start 12/22/18 at 09:15; Stop 12/22/18 at 13:14; Status DC Lidocaine/Sodium Bicarbonate (Buffered Lidocaine 1%) 3 ml STK-MED ONCE .ROUTE ; Start 12/23/18 at 10:33; Stop 12/23/18 at 10:35; Status DC Lidocaine/Sodium Bicarbonate (Buffered Lidocaine 1%) 3 ml 1X ONCE INJ Last administered on 12/23/18at 11:24; Start 12/23/18 at 11:00; Stop 12/23/18 at 11:10; Status DC Info (Tpn Per Pharmacy) 1 each PRN DAILY PRN MC SEE COMMENTS Last administered on 01/01/19at 10:42; Start 12/23/18 at 14:00 Sodium Chloride 90 meq/Potassium Chloride 50 meq/ Potassium Phosphate 20.4 mmol/ Magnesium Sulfate 18 meq/ Calcium Gluconate 5 meq/ Multivitamins 10 ml/Chromium / Copper/Manganese/ Seleni/Zn 1 ml/ Total Parenteral Nutrition/Amino Acids/ Dextrose/ Fat Emulsion Intravenous 1,512 ml @ 63 mls/hr TPN CONT IV Last administered on 12/23/18at 21:37; Start 12/23/18 at 22:00; Stop 12/24/18 at 21:59; Status DC Alprazolam (Xanax) 0.25 mg PRN BID PRN PO ANXIETY / AGITATION Last administered on 12/25/18at 09:25; Start 12/23/18 at 23:00; Stop 12/25/18 at 17:54; Status DC Lorazepam (Ativan) 1 mg PRN Q4HRS PRN IV ANXIETY / AGITATION Last administered on 12/24/18at 09:21; Start 12/24/18 at 08:45; Stop 12/24/18 at 10:19; Status DC Pantoprazole Sodium (PROTONIX VIAL for IV PUSH) 40 mg DAILYAC IVP Last administered on 01/01/19at 07:33; Start 12/24/18 at 09:30 Lorazepam (Ativan) 0.5 mg PRN Q4HRS PRN IV ANXIETY / AGITATION Last administered on 12/25/18at 04:47; Start 12/24/18 at 10:30; Stop 12/25/18 at 10:22; Status DC Sodium Chloride 45 meq/Sodium Acetate 45 meq/ Potassium Chloride 50 meq/ Potassium Phosphate 20.4 mmol/Magnesium Sulfate 18 meq/ Calcium Gluconate 5 meq / Multivitamins 10 ml/Chromium/ Copper/Manganese/ Seleni/Zn 1 ml/ Total Parenteral Nutrition/Amino Acids/Dextrose/ Fat Emuls... 1,512 ml @ 63 mls/hr TPN CONT IV Last administered on 12/24/18at 21:57; Start 12/24/18 at 22:00; Stop 12/25/18 at 21:59; Status DC Phenyleph/Shark Oil/Min Oil/Petrol (Preparation H) 1 ranjith PRN Q4HRS PRN RC RECTAL PAIN; Start 12/24/18 at 12:45; Stop 12/25/18 at 20:20; Status DC Sodium Chloride 45 meq/Sodium Acetate 45 meq/ Potassium Chloride 50 meq/ Potassium Phosphate 20.4 mmol/Magnesium Sulfate 18 meq/ Calcium Gluconate 5 meq / Multivitamins 10 ml/Chromium/ Copper/Manganese/ Seleni/Zn 1 ml/ Total Parenteral Nutrition/Amino Acids/Dextrose/ Fat Emuls... 1,512 ml @ 63 mls/hr TPN CONT IV Last administered on 12/26/18at 00:34; Start 12/25/18 at 22:00; Stop 12/26/18 at 21:59; Status DC Neomycin/ Polymyxin/ Bacitracin (Triple Antibiotic Ointment) 1 pkt PRN TID PRN TP skin around rectum, post op Last administered on 12/26/18 09:58; Start at 14:30 Alprazolam (Xanax) 0.25 mg PRN Q8HRS PRN PO ANXIETY / AGITATION Last administered on 01/01/19 02:34; Start 12/25/18 at 18:00 Morphine Sulfate (Morphine Sulfate) 2 mg PRN Q6HRS PRN IV PAIN Last administered on 12/29/18 21:47; Start 12/25/18 at 18:00; Stop 12/30/18 at 03:17 ; Status DC Guaifenesin (Mucinex) 600 mg BID PO Last administered on 12/26/18at 21:26; Start 12/26/18 at 11:00 Guaifenesin (Mucinex) 600 mg BID PO ; Start 12/26/18 at 11:00; Status UNV Guaifenesin/ Codeine Phosphate (Robitussin Ac) 5 ml PRN Q6HRS PRN PO COUGH Last administered on 12/26/18 10:41; Start 12/26/18 at 10:30 Sodium Acetate 90 meq/Potassium Chloride 50 meq/ Potassium Phosphate 13.6 mmol/ Magnesium Sulfate 18 meq/ Calcium Gluconate 5 meq/ Multivitamins 10 ml/Chromium / Copper/Manganese/ Seleni/Zn 1 ml/ Total Parenteral Nutrition/Amino Acids/ Dextrose/ Fat Emulsion Intravenous 1,512 ml @ 63 mls/hr TPN CONT IV Last administered on 12/26/18at 21:37; Start 12/26/18 at 22:00; Stop 12/28/18 at 01:28 ; Status DC Benzocaine (Hurricaine One) 1 spray 1X ONCE MM ; Start 12/26/18 at 19:15; Stop 12/26/18 at 19:16; Status DC Acetaminophen (Tylenol) 650 mg PRN Q6HRS PRN PO MILD PAIN / TEMP Last administered on 12/27/18 04:39; Start 12/26/18 at 21:00 Benzocaine (Hurricaine One) 1 spray 1X ONCE MM Last administered on 12/27/18at 09:00; Start 12/27/18 at 09:15; Stop 12/27/18 at 09:16; Status DC Sodium Acetate 90 meq/Potassium Chloride 50 meq/ Potassium Phosphate 13.6 mmol/ Magnesium Sulfate 15 meq/ Calcium Gluconate 5 meq/ Multivitamins 10 ml/Chromium / Copper/Manganese/ Seleni/Zn 1 ml/ Total Parenteral Nutrition/Amino Acids/ Dextrose/ Fat Emulsion Intravenous 1,512 ml @ 63 mls/hr TPN CONT IV ; Start at 22:00; Stop 12/28/18 at 21:59; Status Cancel Sodium Acetate 90 meq/Potassium Chloride 50 meq/ Potassium Phosphate 13.6 mmol/ Magnesium Sulfate 15 meq/ Calcium Gluconate 5 meq/ Multivitamins 10 ml/Chromium / Copper/Manganese/ Seleni/Zn 1 ml/ Total Parenteral Nutrition/Amino Acids/ Dextrose/ Fat Emulsion Intravenous 1,512 ml @ 63 mls/hr TPN CONT IV ; Start at 22:00; Stop 12/28/18 at 21:59; Status DC Lidocaine/Sodium Bicarbonate (Buffered Lidocaine 1%) 3 ml 1X ONCE INJ ; Start 12/28/18 at 09:00; Stop 12/28/18 at 09:01; Status Cancel Benzocaine (Hurricaine One) 1 spray 1X ONCE MM Last administered on 12/28/18at 09:32; Start 12/28/18 at 09:30; Stop 12/28/18 at 09:33; Status DC Sodium Acetate 90 meq/Potassium Chloride 50 meq/ Potassium Phosphate 13.6 mmol/ Magnesium Sulfate 15 meq/ Calcium Gluconate 5 meq/ Multivitamins 10 ml/Chromium / Copper/Manganese/ Seleni/Zn 1 ml/ Total Parenteral Nutrition/Amino Acids/ Dextrose/ Fat Emulsion Intravenous 1,512 ml @ 63 mls/hr TPN CONT IV Last administered on 12/28/18at 22:06; Start 12/28/18 at 22:00; Stop 12/29/18 at 21:59 ; Status DC Iohexol (Omnipaque 300 Mg/ml) 400 ml 1X ONCE PO Last administered on at 08:15; Start 12/29/18 at 06:45; Stop 12/29/18 at 06:46; Status DC Info (CONTRAST GIVEN -- Rx MONITORING) 1 each PRN DAILY PRN MC SEE COMMENTS; Start 12/29/18 at 06:45; Stop 12/31/18 at 06:44; Status DC Iohexol (Omnipaque 300 Mg/ml) 400 ml 1X ONCE PO ; Start 12/29/18 at 07:00; Stop 12/29/18 at 07:03; Status DC Info (CONTRAST GIVEN -- Rx MONITORING) 1 each PRN DAILY PRN MC SEE COMMENTS; Start 12/29/18 at 07:15; Stop 12/31/18 at 07:14; Status DC Meropenem 500 mg/ Sodium Chloride 50 ml @ 100 mls/hr Q6HRS IV Last administered on 01/01/19at 06:23; Start 12/29/18 at 12:00 Multi-Ingredient Ointment (Analgesic [place]) 1 ranjith PRN QID PRN TP MUSCLE PAIN Last administered on 12/29/18at 14:40; Start 12/29/18 at 13:00 Sodium Acetate 90 meq/Potassium Chloride 50 meq/ Potassium Phosphate 13.6 mmol/ Magnesium Sulfate 15 meq/ Calcium Gluconate 5 meq/ Multivitamins 10 ml/Chromium / Copper/Manganese/ Seleni/Zn 1 ml/ Total Parenteral Nutrition/Amino Acids/ Dextrose/ Fat Emulsion Intravenous 1,512 ml @ 63 mls/hr TPN CONT IV Last administered on 12/29/18at 21:40; Start 12/29/18 at 22:00; Stop 12/30/18 at 21:59 ; Status DC Morphine Sulfate (Morphine Sulfate) 2 mg PRN Q4HRS PRN IV SEVERE PAIN Last administered on 12/30/18at 19:50; Start 12/30/18 at 03:30; Stop 12/30/18 at 21:33 ; Status DC Propofol 20 ml @ As Directed STK-MED ONCE IV ; Start 12/30/18 at 12:51; Stop at 12:52; Status DC Dexamethasone Sodium Phosphate (Decadron) 20 mg STK-MED ONCE .ROUTE ; Start at 12:51; Stop 12/30/18 at 12:52; Status DC Lidocaine HCl (Lidocaine Pf 2% Vial) 5 ml STK-MED ONCE .ROUTE ; Start 12/30/18 at 12:51; Stop 12/30/18 at 12:52; Status DC Ondansetron HCl (Zofran) 4 mg STK-MED ONCE .ROUTE ; Start 12/30/18 at 12:51; Stop 12/30/18 at 12:52; Status DC Rocuronium [place] (Zemuron) 50 mg STK-MED ONCE .ROUTE ; Start 12/30/18 at 12:51 ; Stop 12/30/18 at 12:52; Status DC Succinylcholine Chloride (Anectine) 200 mg STK-MED ONCE .ROUTE ; Start 12/30/18 at 12:51; Stop 12/30/18 at 12:52; Status DC Fentanyl Citrate (Fentanyl 5ml Vial) 250 mcg STK-MED ONCE .ROUTE ; Start at 13:49; Stop 12/30/18 at 13:50; Status DC Sodium Chloride 90 meq/Potassium Chloride 50 meq/ Potassium Phosphate 13.6 mmol/ Magnesium Sulfate 15 meq/ Multivitamins 10 ml/Chromium/ Copper/Manganese/ Seleni /Zn 1 ml/ Total Parenteral Nutrition/Amino Acids/Dextrose/ Fat Emulsion Intravenous 1,512 ml @ 63 mls/hr TPN CONT IV Last administered on 12/30/18at 23:43; Start 12/30/18 at 22:00; Stop 12/31/18 at 21:59; Status DC Vasopressin (Vasostrict) 20 unit STK-MED ONCE .ROUTE ; Start 12/30/18 at 15:00; Stop 12/30/18 at 15:01; Status DC Sodium Chloride (SODIUM CHLORIDE 20ml) 20 ml STK-MED ONCE IJ ; Start 12/30/18 at 15:01; Stop 12/30/18 at 15:02; Status DC Albumin Human 500 ml @ As Directed STK-MED ONCE IV ; Start 12/30/18 at 15:01; Stop 12/30/18 at 15:02; Status DC Glycopyrrolate (Robinul) 1 mg STK-MED ONCE .ROUTE ; Start 12/30/18 at 15:21; Stop 12/30/18 at 15:22; Status DC Neostigmine Methylsulfate (Bloxiverz) 10 mg STK-MED ONCE .ROUTE ; Start at 15:21; Stop 12/30/18 at 15:22; Status DC Albuterol/ Ipratropium (Duoneb) 3 ml STK-MED ONCE .ROUTE ; Start 12/30/18 at 15: 45; Stop 12/30/18 at 15:46; Status DC Fentanyl Citrate (Fentanyl 2ml Vial) 100 mcg STK-MED ONCE .ROUTE ; Start at 16:56; Stop 12/30/18 at 16:57; Status DC Ondansetron HCl (Zofran) 4 mg PRN Q6HRS PRN IV NAUSEA/VOMITING; Start 12/30/18 at 17:15; Stop 12/30/18 at 21:35; Status DC Fentanyl Citrate (Fentanyl 2ml Vial) 25 mcg PRN Q5MIN PRN IV MILD PAIN Last administered on 12/30/18at 17:15; Start 12/30/18 at 17:15; Stop 12/30/18 at 21:35 ; Status DC Fentanyl Citrate (Fentanyl 2ml Vial) 50 mcg PRN Q5MIN PRN IV MODERATE TO SEVERE PAIN Last administered on 12/30/18at 17:57; Start 12/30/18 at 17:15; Stop 12/30/18 at 21:35; Status DC Morphine Sulfate (Morphine Sulfate) 1 mg PRN Q10MIN PRN IV SEVERE PAIN; Start 12/30/18 at 17:15; Stop 12/31/18 at 17:14; Status DC Ringer's Solution 1,000 ml @ 30 mls/hr Q24H IV Last administered on 12/30/18at 18:09; Start 12/30/18 at 17:10; Stop 12/30/18 at 21:33; Status DC Lidocaine HCl (Xylocaine-Mpf 1% 2ml Vial) 2 ml 1X PRN PRN ID IV START; Start at 17:15; Stop 12/30/18 at 21:35; Status DC Hydromorphone HCl (Dilaudid) 0.5 mg PRN Q10MIN PRN IV SEV PAIN, Second choice; Start 12/30/18 at 17:15; Stop 12/30/18 at 21:35; Status DC Prochlorperazine Edisylate (Compazine) 5 mg PACU PRN PRN IV NAUSEA, MRX1; Start 12/30/18 at 17:15; Stop 12/30/18 at 21:35; Status DC Albumin Human 100 ml @ 100 mls/hr 1X ONCE IV Last administered on 12/30/18at 22:00; Start 12/30/18 at 22:00; Stop 12/30/18 at 22:59; Status DC Ringer's Solution 500 ml @ 500 mls/hr 1X ONCE IV Last administered on at 22:00; Start 12/30/18 at 22:00; Stop 12/30/18 at 22:59; Status DC Ringer's Solution 1,000 ml @ 100 mls/hr Q10H IV Last administered on at 00:58; Start 12/30/18 at 23:00; Stop 01/01/19 at 09:30; Status DC Hydromorphone HCl (Dilaudid) 0.5 mg PRN Q2HR PRN IV MODERATE PAIN Last administered on 12/31/18at 00:37; Start 12/30/18 at 21:30 Hydromorphone HCl (Dilaudid) 1 mg PRN Q2HR PRN IV SEVERE PAIN Last administered on 01/01/19at 07:33; Start 12/30/18 at 21:30 Insulin Human Lispro (HumaLOG) 0-5 UNITS Q6HRS SQ Last administered on at 06:30; Start 12/31/18 at 00:30 Sodium Chloride 90 meq/Potassium Chloride 30 meq/ Potassium Phosphate 13.6 mmol/ Magnesium Sulfate 15 meq/ Calcium Gluconate 5 meq/ Multivitamins 10 ml/Chromium / Copper/Manganese/ Seleni/Zn 1 ml/ Total Parenteral Nutrition/Amino Acids/ Dextrose/ Fat Emulsion Intravenous 1,512 ml @ 63 mls/hr TPN CONT IV Last administered on 12/31/18at 21:58; Start 12/31/18 at 22:00; Stop 01/01/19 at 21:59 Sodium Chloride 90 meq/Potassium Chloride 30 meq/ Potassium Phosphate 13.6 mmol/ Magnesium Sulfate 15 meq/ Calcium Gluconate 5 meq/ Multivitamins 10 ml/Chromium / Copper/Manganese/ Seleni/Zn 1 ml/ Total Parenteral Nutrition/Amino Acids/ Dextrose/ Fat Emulsion Intravenous 1,512 ml @ 63 mls/hr TPN CONT IV ; Start at 22:00; Stop 01/02/19 at 21:59 Active Scripts Active Chlorhexidine Gluconate 473 Ml Mouthwash 473 Ml MM BID 7 Days Vitamin C (Ascorbate Calcium) 500 Mg Tablet 500 Mg PO DAILY 30 Days Slow Release Iron (Ferrous Sulfate) 250 Mg Tablet.er 250 Mg PO DAILY 30 Days Protonix (Pantoprazole Sodium) 40 Mg Granpkt.dr 40 Mg PO DAILY 30 Days Reported Alprazolam 0.25 Mg Tablet 0.25 Mg PO DAILY Metformin Hcl Er (Metformin Hcl) 500 Mg Tab.er.24h 1 Tab PO DAILY Namenda (Memantine Hcl) 10 Mg Tablet 1 Tab PO BID Losartan Potassium 100 Mg Tablet 100 Mg PO DAILY Spironolactone 25 Mg Tablet 1 Tab PO DAILY Ventolin Hfa Inhaler (Albuterol Sulfate) 18 Gm Hfa.aer.ad 2 Puff INH Q4HRS Cymbalta (Duloxetine Hcl) 20 Mg Capsule.dr 90 Mg PO DAILY Requip (Ropinirole Hcl) 1 Mg Tablet 3 Mg PO DAILY Amlodipine Besylate 10 Mg Tablet 10 Mg PO DAILY Vitals/I & O Vital Sign - Last 24 Hours 12/31/18 12/31/18 12/31/18 12/31/18 12:15 12:27 12:33 13:09 Temp 97.9 97.9 97.9 97.9 Pulse 87 87 Resp 20 18 B/P (MAP) 99/66 (77) 99/66 (77) Pulse Ox 97 97 97 O2 Delivery Nasal Cannula Nasal Cannula Nasal Cannula Nasal Cannula O2 Flow Rate 3.0 3.0 3.0 3.0 12/31/18 12/31/18 12/31/18 12/31/18 14:59 15:54 16:32 19:25 Temp 98.1 98.4 98.1 98.4 Pulse 87 90 Resp 18 18 B/P (MAP) 111/72 (85) 113/60 (77) Pulse Ox 100 97 96 O2 Delivery Nasal Cannula Nasal Cannula Nasal Cannula Nasal Cannula O2 Flow Rate 3.0 3.0 3.0 2.0 12/31/18 12/31/18 12/31/18 12/31/18 19:35 19:41 22:37 22:58 Temp 98.5 98.5 Pulse 95 Resp 22 B/P (MAP) 116/69 (85) Pulse Ox 97 97 94 O2 Delivery Nasal Cannula Nasal Cannula Nasal Cannula Nasal Cannula O2 Flow Rate 3.0 3.0 3.0 2.0 201/01/19 01/01/19 01/01/19 03:07 03:08 07:00 07:11 Temp 98.2 97.6 98.2 97.6 Pulse 102 101 Resp 20 20 B/P (MAP) 104/77 (86) 145/73 (97) Pulse Ox 93 96 92 95 O2 Delivery Nasal Cannula Nasal Cannula Nasal Cannula Nasal Cannula O2 Flow Rate 2.0 3.0 2.0 3.0 01/01/19 01/01/19 01/01/19 01/01/19 07:30 07:33 08:34 08:35 Pulse 102 B/P (MAP) 104/77 O2 Delivery Nasal Cannula Nasal Cannula Nasal Cannula O2 Flow Rate 3.0 3.0 3.0 01/01/19 08:35 Pulse 102 B/P (MAP) 104/77 Intake and Output 12/31/18 12/31/18 01/01/19 14:59 22:59 06:59 Intake Total 0 ml 0 ml 3710 ml Output Total 225 ml 650 ml 350 ml Balance -225 ml -650 ml 3360 ml DAVID DORAN III DO Jan 01, 2019 11:23
[2019-01-01] MEDS ORDERED: VANCOMYCIN 2 GM in IV NORMAL SALINE 500ML BAG 500 ML IV ONE (12:00)
[2019-01-01] MEDS ORDERED: VANCOMYCIN 1.25 GM in IV NORMAL SALINE 250ML 250 ML IV SCH (12:00)
[2019-01-01] MEDS: ONDANSETRON PF 4 MG/2 ML VIAL. IV PRN (14:46)
--- NOTE | 2019-01-01 15:14 | RAD ---
AP chest. HISTORY: Tachypnea AP view was taken of the chest. Right PICC line is in good position. NG tube extends into the stomach. There is a left pleural effusion with increase compared to the recent study. There is left base atelectasis or infiltrate. A lateral view could be of benefit. IMPRESSION: 1. PICC line and NG tube unchanged. 2. Increased left pleural effusion with left basilar atelectasis or infiltrate. Electronically signed by: David Lockett MD (01/01/2019 3:11 PM) [id number]
[2019-01-01] MEDS: VANCOMYCIN PER PHARMACY MC PRN (15:22)
--- NOTE | 2019-01-01 15:25 | NUR ---
Pharmacy Vancomycin Dosing Note S:Consulted to monitor and dose vancomycin started 01/01/19. O:ELLE LATHAM is a 72 year old F with Sepsis . Height: 5 feet, 7 inches Weight: 85.239291 kg [place] Body Weight: 61.60 Adjusted Body Weight: 70.96 Dosing Weight: Other Antibiotics: LABS: Last BUN: 26 Last Creatinine: 0.8 Creatinine Clearance: 54.5 mL/min Last WBC: 24.5 Last Procalcitonin: Tmax (past 24 hours): 98.5 Microbiology: BLOOD CULTURE Final NO GROWTH AFTER 5 DAYS I/O: 3710/1225 Drug Levels: Last level: on at Last dose given 01/01/19 at 1228 Vancomycin Dosing: Loading Dose: 2000 mg x1 Dosing Weight: Target Trough: A: Based on weight and est. CrCl: P: 1. Vancomycin 2000mg, followed by Vancomycin 1250 mg IV q24h. 2. Follow up Trough level on 01/03/19 at 1130. 3. Pharmacy will continue to monitor, follow and adjust therapy as needed. Umair Oconnell [facility], 01/01/19 [id number]
--- NOTE | 2019-01-01 16:25 | PDOC ---
Infectious Disease Note Subjective Subjective Tired, pain controlled SOA earlier, vanc added per primary Anemic, hgb 6.8. Currently getting PRBCs Denies N/V/flatus/F/C/SOA TPN O2 3L ROS ROS per HPI Vital Sign Vital Signs Vital Signs Date Time Temp Pulse Resp B/P (MAP) Pulse Ox O2 Delivery O2 Flow Rate FiO2 01/01/19 15:37 98 Nasal Cannula 3.0 01/01/19 15:35 98.5 88 20 107/59 98.5 Physical Exam PHYSICAL EXAM GENERAL: Resting quietly HEENT: Oral cavity pink, dry. + NGT NECK: Supple LUNGS: Diminished aeration bases HEART: S1, S2 ABDOMEN: Distended, soft, BS quiet. dressing dry. : Freeman EXTREMITIES: BLE trace edema, no cyanosis SKIN: No rash. Rectal wound clean NEUROLOGIC: Arouses easily to name, responds appropriately RUE-PICC (12/23) clean Labs Lab Laboratory Tests Test 12/31/18 18:08 01/01/19 00:29 01/01/19 06:13 01/01/19 06:16 Glucose (Fingerstick) 189 mg/dL (70-99) 240 mg/dL (70-99) 555 mg/dL (70-99) 282 mg/dL (70-99) Test 01/01/19 06:30 01/01/19 09:20 01/01/19 11:58 White Blood Count 24.5 x10^3/uL (4.0-11.0) Red Blood Count 2.95 x10^6/uL (3.50-5.40) Hemoglobin 6.8 g/dL (12.0-15.5) Hematocrit 22.6 % (36.0-47.0) Mean Corpuscular Volume 77 fL (79-100) Mean Corpuscular Hemoglobin 23 pg (25-35) Mean Corpuscular Hemoglobin Concent 30 g/dL (31-37) Red Cell Distribution Width 24.1 % (11.5-14.5) Platelet Count 344 x10^3/uL (140-400) Neutrophils (%) (Auto) 91 % (31-73) Lymphocytes (%) (Auto) 4 % (24-48) Monocytes (%) (Auto) 4 % (0-9) Eosinophils (%) (Auto) 1 % (0-3) Basophils (%) (Auto) 0 % (0-3) Neutrophils # (Auto) 22.3 x10^3uL (1.8-7.7) Lymphocytes # (Auto) 1.0 x10^3/uL (1.0-4.8) Monocytes # (Auto) 1.0 x10^3/uL (0.0-1.1) Eosinophils # (Auto) 0.1 x10^3/uL (0.0-0.7) Basophils # (Auto) 0.1 x10^3/uL (0.0-0.2) Sodium Level 143 mmol/L (136-145) Potassium Level 4.3 mmol/L (3.5-5.1) Chloride Level 106 mmol/L (98-107) Carbon Dioxide Level 31 mmol/L (21-32) Anion Gap 6 (6-14) Blood Urea Nitrogen 26 mg/dL (7-20) Creatinine 0.8 mg/dL (0.6-1.0) Estimated GFR (Cockcroft-Gault) 84.6 Glucose Level 277 mg/dL (70-99) Calcium Level 8.8 mg/dL (8.5-10.1) Lactic Acid Level 1.0 mmol/L (0.4-2.0) Glucose (Fingerstick) 263 mg/dL (70-99) CXR 1. PICC line and NG tube unchanged. 2. Increased left pleural effusion with left basilar atelectasis or infiltrate. Micro Microbiology 12/21/18 Blood Culture - Preliminary, Resulted NO GROWTH AFTER 4 DAYS Objective Assessment Small bowel obstruction at previous anastomotic site. s/p exploratory laparotomy with extended right hemicolectomy and primary anastomosis, 12/30. Leukocytosis source intraabdominal from bowel obstruction likely postop, trending up S/P laparoscopic-assisted right colon resection and hemorrhoidectomy on 2018 for bleeding cecal ulcer and hemorrhoids; path negative for malignancy . Left pleural effusion with left basilar atelectasis or infiltrate. COPD Pneumonia sputum c/s nonrevealing, 12/25 Ileus Allergies to PCN Plan Plan of Care cont Merrem vanc added per primary Monitor labs/temp f/u BC maintain aspiration cont supportive care Patient seen and examined. Chart reviewed in detail. Case discussed with SUPER[employer] GENERATING. Agree with above plan. HERSON PARSON APRN Jan 01, 2019 16:25 SRINIVAS GUDINO MD Jan 01, 2019 23:11
[2019-01-01] MEDS: rOPINIRole 1 MG TABLET. PO SCH (19:58)
[2019-01-01] MEDS ORDERED: [UNRECOGNIZED DRUG - OTHER] IV SCH ×10 (22:00)
[2019-01-01] MEDS ORDERED: TOTAL PARENTERAL NUTRITION IV SCH ×10 (22:00)
[2019-01-01] MEDS ORDERED: AMINO ACID IV SCH ×10 (22:00)
[2019-01-01] MEDS ORDERED: DEXTROSE 70% IV SCH ×10 (22:00)
[2019-01-02] MEDS: MEROPENEM 500 MG in IV NORMAL SALINE 50ML 50 ML IV SCH ×4 (00:07→17:20)
[2019-01-02] MEDS: INSULIN LISPRO 300 UNITS/3 ML INSULN.PEN. SQ SCH ×4 (00:16→18:17)
[2019-01-02] MEDS: HYDROmorphone 2 MG/ML VIAL IV PRN ×4 (02:20→22:29)
[2019-01-02 03:00] VITALS: BP 95/52
[2019-01-02] MEDS: ALBUTEROL SULFATE 2.5 MG/3 ML NEBU. NEB SCH ×2 (04:03→06:52)
[2019-01-02 05:31] LABS: BASO # 0.1 x10^3/uL (0.0-0.2); BASO % 0 % (0-3); EOS # 0.2 x10^3/uL (0.0-0.7); EOS % 1 % (0-3); HEMATOCRIT 24.4 % (36.0-47.0); HEMOGLOBIN 7.5 g/dL (12.0-15.5); LYMPH # 0.9 x10^3/uL (1.0-4.8); LYMPH % 4 % (24-48); MEAN CORPUSCULAR HEMOGLOBIN 24 pg (25-35); MEAN CORPUSCULAR HGB CONC 31 g/dL (31-37); MEAN CORPUSCULAR VOLUME 78 fL (79-100); MONO # 1.1 x10^3/uL (0.0-1.1); MONO % 5 % (0-9); NEUT # 18.2 x10^3uL (1.8-7.7); NEUT % 89 % (31-73); PLATELET COUNT 364 x10^3/uL (140-400); RED BLOOD COUNT 3.11 x10^6/uL (3.50-5.40); RED CELL DISTRIBUTION WIDTH 23.1 % (11.5-14.5); WHITE BLOOD COUNT 20.5 x10^3/uL (4.0-11.0)
[2019-01-02] MEDS: PANTOPRAZOLE IV PUSH 40 MG VIAL. IVP SCH (06:38)
[2019-01-02 07:00] VITALS: BP 117/70
--- NOTE | 2019-01-02 07:23 | PDOC ---
PULMONARY PROGRESS NOTES Subjective ng in, has more sob, has cough, no sputum, on home 02 3lpm Vitals Vital Signs Date Time Temp Pulse Resp B/P (MAP) Pulse Ox O2 Delivery O2 Flow Rate FiO2 01/02/19 06:53 96 Nasal Cannula 3.0 01/02/19 03:00 97.6 80 18 95/52 (66) 97.6 Comments ros as mentioned as above other sys otherwise neg ROS: No Nausea, No Chest Pain General: Alert HEENT: Other (nc at perrl nose throat clear neck +JVD no lad, no thyromegaly ) Lungs: Wheezing, Crackles Cardiovascular: S1, S2 Abdomen: Soft, Other (distended) Neuro Exam: Alert, Oriented Extremities: No Edema Skin: Warm Labs Laboratory Tests Test 12/31/18 12:55 12/31/18 18:08 01/01/19 00:29 01/01/19 06:13 Glucose (Fingerstick) 224 mg/dL (70-99) 189 mg/dL (70-99) 240 mg/dL (70-99) 555 mg/dL (70-99) Test 01/01/19 06:16 01/01/19 06:30 01/01/19 09:20 01/01/19 11:58 Glucose (Fingerstick) 282 mg/dL (70-99) 263 mg/dL (70-99) White Blood Count 24.5 x10^3/uL (4.0-11.0) Red Blood Count 2.95 x10^6/uL (3.50-5.40) Hemoglobin 6.8 g/dL (12.0-15.5) Hematocrit 22.6 % (36.0-47.0) Mean Corpuscular Volume 77 fL (79-100) Mean Corpuscular Hemoglobin 23 pg (25-35) Mean Corpuscular Hemoglobin Concent 30 g/dL (31-37) Red Cell Distribution Width 24.1 % (11.5-14.5) Platelet Count 344 x10^3/uL (140-400) Neutrophils (%) (Auto) 91 % (31-73) Lymphocytes (%) (Auto) 4 % (24-48) Monocytes (%) (Auto) 4 % (0-9) Eosinophils (%) (Auto) 1 % (0-3) Basophils (%) (Auto) 0 % (0-3) Neutrophils # (Auto) 22.3 x10^3uL (1.8-7.7) Lymphocytes # (Auto) 1.0 x10^3/uL (1.0-4.8) Monocytes # (Auto) 1.0 x10^3/uL (0.0-1.1) Eosinophils # (Auto) 0.1 x10^3/uL (0.0-0.7) Basophils # (Auto) 0.1 x10^3/uL (0.0-0.2) Sodium Level 143 mmol/L (136-145) Potassium Level 4.3 mmol/L (3.5-5.1) Chloride Level 106 mmol/L (98-107) Carbon Dioxide Level 31 mmol/L (21-32) Anion Gap 6 (6-14) Blood Urea Nitrogen 26 mg/dL (7-20) Creatinine 0.8 mg/dL (0.6-1.0) Estimated GFR (Cockcroft-Gault) 84.6 Glucose Level 277 mg/dL (70-99) Calcium Level 8.8 mg/dL (8.5-10.1) Lactic Acid Level 1.0 mmol/L (0.4-2.0) Test 01/01/19 18:18 01/01/19 23:14 01/02/19 05:00 01/02/19 05:07 Glucose (Fingerstick) 270 mg/dL (70-99) 271 mg/dL (70-99) 262 mg/dL (70-99) White Blood Count 20.5 x10^3/uL (4.0-11.0) Red Blood Count 3.11 x10^6/uL (3.50-5.40) Hemoglobin 7.5 g/dL (12.0-15.5) Hematocrit 24.4 % (36.0-47.0) Mean Corpuscular Volume 78 fL (79-100) Mean Corpuscular Hemoglobin 24 pg (25-35) Mean Corpuscular Hemoglobin Concent 31 g/dL (31-37) Red Cell Distribution Width 23.1 % (11.5-14.5) Platelet Count 364 x10^3/uL (140-400) Neutrophils (%) (Auto) 89 % (31-73) Lymphocytes (%) (Auto) 4 % (24-48) Monocytes (%) (Auto) 5 % (0-9) Eosinophils (%) (Auto) 1 % (0-3) Basophils (%) (Auto) 0 % (0-3) Neutrophils # (Auto) 18.2 x10^3uL (1.8-7.7) Lymphocytes # (Auto) 0.9 x10^3/uL (1.0-4.8) Monocytes # (Auto) 1.1 x10^3/uL (0.0-1.1) Eosinophils # (Auto) 0.2 x10^3/uL (0.0-0.7) Basophils # (Auto) 0.1 x10^3/uL (0.0-0.2) Laboratory Tests Test 01/01/19 09:20 01/01/19 11:58 01/01/19 18:18 01/01/19 23:14 Lactic Acid Level 1.0 mmol/L (0.4-2.0) Glucose (Fingerstick) 263 mg/dL (70-99) 270 mg/dL (70-99) 271 mg/dL (70-99) Test 01/02/19 05:00 01/02/19 05:07 White Blood Count 20.5 x10^3/uL (4.0-11.0) Red Blood Count 3.11 x10^6/uL (3.50-5.40) Hemoglobin 7.5 g/dL (12.0-15.5) Hematocrit 24.4 % (36.0-47.0) Mean Corpuscular Volume 78 fL (79-100) Mean Corpuscular Hemoglobin 24 pg (25-35) Mean Corpuscular Hemoglobin Concent 31 g/dL (31-37) Red Cell Distribution Width 23.1 % (11.5-14.5) Platelet Count 364 x10^3/uL (140-400) Neutrophils (%) (Auto) 89 % (31-73) Lymphocytes (%) (Auto) 4 % (24-48) Monocytes (%) (Auto) 5 % (0-9) Eosinophils (%) (Auto) 1 % (0-3) Basophils (%) (Auto) 0 % (0-3) Neutrophils # (Auto) 18.2 x10^3uL (1.8-7.7) Lymphocytes # (Auto) 0.9 x10^3/uL (1.0-4.8) Monocytes # (Auto) 1.1 x10^3/uL (0.0-1.1) Eosinophils # (Auto) 0.2 x10^3/uL (0.0-0.7) Basophils # (Auto) 0.1 x10^3/uL (0.0-0.2) Glucose (Fingerstick) 262 mg/dL (70-99) Medications Active Scripts Medications Dose Route/Sig Max Daily Dose Days Date Category Chlorhexidine Gluconate 473 Ml Mouthwash 473 Ml MM BID 7 12/10/18 Rx Vitamin C (Ascorbate Calcium) 500 Mg Tablet 500 Mg PO DAILY 30 11/22/18 Rx Slow Release Iron (Ferrous Sulfate) 250 Mg Tablet.er 250 Mg PO DAILY 30 11/22/18 Rx Protonix (Pantoprazole Sodium) 40 Mg Granpkt.dr 40 Mg PO DAILY 30 11/22/18 Rx Metformin Hcl Er (Metformin Hcl) 500 Mg Tab.er.24h 1 Tab PO DAILY 11/12/16 Reported Namenda (Memantine Hcl) 10 Mg Tablet 1 Tab PO BID 11/12/16 Reported Losartan Potassium 100 Mg Tablet 100 Mg PO DAILY 11/12/16 Reported Spironolactone 25 Mg Tablet 1 Tab PO DAILY 11/12/16 Reported Ventolin Hfa Inhaler (Albuterol Sulfate) 18 Gm Hfa.aer.ad 2 Puff INH Q4HRS 11/11/16 Reported Cymbalta (Duloxetine Hcl) 20 Mg Capsule.dr 90 Mg PO DAILY 01/27/16 Reported Requip (Ropinirole Hcl) 1 Mg Tablet 3 Mg PO DAILY 01/27/16 Reported Amlodipine Besylate 10 Mg Tablet 10 Mg PO DAILY 01/27/16 Reported Comments cxr reviewed, b lat ll effusion/atelectasis/infilt L>R Impression . 1. Acute hypoxic respiratory failure MULTIFACTORIAL EXPECTED POST SURGICAL INTERVENTION 2. Gastrointestinal bleed/cecal ulceration by colonoscopy, status post laparoscopic-assisted right colon resection and hemorrhoidectomy 12/17 3. ileus S/P SECOND SURGERY 12/30 SEE BELOW 4. Underlying chronic obstructive pulmonary disease. 5. Abnormal CT chest with focal opacity in the right upper lobe, could be nodule/ATELECTASIS Date: 12/17/2018 Preoperative diagnosis: GI bleed cecal ulceration by colonoscopy with active bleeding hemorrhoids Postoperative diagnosis: Same Procedure: Laparoscopic-assisted right colon resection and hemorrhoidectomy Surgeon: Jan Specimen: Right colon and hemorrhoids Date: 12/30/2018 Preoperative diagnosis: Small bowel obstruction Postoperative diagnosis: Small bowel obstruction at previous anastomotic site Procedure: Exploratory laparotomy with extended right hemicolectomy and primary anastomosis Plan . has more sob, will give BD now, I>O. had prbc yesterday, will give lasix 20 mg iv now. will do cxr now, reviewed UP TO CHAIR CONTINUE SUPPORT NG PER SURGEON IS, the importance of use discussed BD, increase NEBS to q 4hr, change to alb/atrovent FOLLOW UP CT IN 4 MONTHS, dr hoover D/W DAUGHTER discussed w pt, rn, rt AMBIKA GONZALEZ MD Jan 02, 2019 07:23
[2019-01-02] MEDS ORDERED: FUROSEMIDE 20 MG/2 ML VIAL. IVP ONE (07:30)
[2019-01-02] MEDS ORDERED: IPRATRPIUM/ALBUTEROL 0.5/2.5MG 3 ML NEBU. NEB ONE (07:30)
--- NOTE | 2019-01-02 07:53 | RAD ---
Portable AP chest. HISTORY: Short of breath AP view was taken of the chest. Right PICC line is unchanged. Heart size within normal limits in size. There are bilateral pleural effusions. There is hazy atelectasis or infiltrate in the lung bases. The bowel and is less distended in the abdomen. IMPRESSION: 1. Improved bowel distention. 2. Small bilateral effusions with bibasilar atelectasis or infiltrates with little change. Electronically signed by: David Lockett MD (01/02/2019 7:50 AM) [facility]
[2019-01-02] MEDS: FERROUS SULFATE 325 MG TABLET. PO SCH (08:00)
[2019-01-02] MEDS: DOCUSATE SODIUM 100 MG CAPSULE. PO SCH (08:19)
[2019-01-02] MEDS: amLODIPine BESYLATE 10 MG TABLET PO SCH (08:19)
[2019-01-02] MEDS: DULoxetine HCL 30 MG CAPSULE.DR PO SCH (08:19)
[2019-01-02] MEDS: LOSARTAN POTASSIUM 50 MG TABLET. PO SCH (08:19)
[2019-01-02] MEDS: SPIRONOLACTONE 25 MG TABLET PO SCH (08:19)
[2019-01-02] MEDS: MEMANTINE 10 MG TABLET. PO SCH ×2 (08:19→19:11)
[2019-01-02] MEDS: ASCORBIC ACID 500 MG TABLET PO SCH (08:20)
[2019-01-02] MEDS: CHLORHEXIDINE 0.12% 15 ML MOUTHWASH. MM SCH ×2 (08:30→21:20)
[2019-01-02] MEDS: ENOXAPARIN 40 MG/0.4 ML SYRINGE. SQ SCH (08:31)
--- NOTE | 2019-01-02 10:50 | PDOC ---
SURGICAL PROGRESS NOTE Subjective Kris for Dr Montoya pt feels a little better does not look as uncomfortable breathing improved Vital Signs Vital Signs Date Time Temp Pulse Resp B/P (MAP) Pulse Ox O2 Delivery O2 Flow Rate FiO2 01/02/19 08:19 96 Nasal Cannula 3.0 01/02/19 07:00 97.9 81 18 117/70 (86) 97.9 I&O Intake and Output 01/02/19 06:59 Intake Total 0 ml Output Total 2550 ml Balance -2550 ml Intake Oral 0 ml Output Urine Total 750 ml Gastric Drainage Total 1800 ml PATIENT HAS A PILLAI: Yes General: Alert HEENT: Other (NG with bilious return) Lungs: Other (respiratory rate improved, still a little tachypneic) Heart: Regular rate Abdomen: Soft Labs Laboratory Tests Test 12/31/18 12:55 12/31/18 18:08 01/01/19 00:29 01/01/19 06:13 Glucose (Fingerstick) 224 mg/dL (70-99) 189 mg/dL (70-99) 240 mg/dL (70-99) 555 mg/dL (70-99) Test 01/01/19 06:16 01/01/19 06:30 01/01/19 09:20 01/01/19 11:58 Glucose (Fingerstick) 282 mg/dL (70-99) 263 mg/dL (70-99) White Blood Count 24.5 x10^3/uL (4.0-11.0) Red Blood Count 2.95 x10^6/uL (3.50-5.40) Hemoglobin 6.8 g/dL (12.0-15.5) Hematocrit 22.6 % (36.0-47.0) Mean Corpuscular Volume 77 fL (79-100) Mean Corpuscular Hemoglobin 23 pg (25-35) Mean Corpuscular Hemoglobin Concent 30 g/dL (31-37) Red Cell Distribution Width 24.1 % (11.5-14.5) Platelet Count 344 x10^3/uL (140-400) Neutrophils (%) (Auto) 91 % (31-73) Lymphocytes (%) (Auto) 4 % (24-48) Monocytes (%) (Auto) 4 % (0-9) Eosinophils (%) (Auto) 1 % (0-3) Basophils (%) (Auto) 0 % (0-3) Neutrophils # (Auto) 22.3 x10^3uL (1.8-7.7) Lymphocytes # (Auto) 1.0 x10^3/uL (1.0-4.8) Monocytes # (Auto) 1.0 x10^3/uL (0.0-1.1) Eosinophils # (Auto) 0.1 x10^3/uL (0.0-0.7) Basophils # (Auto) 0.1 x10^3/uL (0.0-0.2) Sodium Level 143 mmol/L (136-145) Potassium Level 4.3 mmol/L (3.5-5.1) Chloride Level 106 mmol/L (98-107) Carbon Dioxide Level 31 mmol/L (21-32) Anion Gap 6 (6-14) Blood Urea Nitrogen 26 mg/dL (7-20) Creatinine 0.8 mg/dL (0.6-1.0) Estimated GFR (Cockcroft-Gault) 84.6 Glucose Level 277 mg/dL (70-99) Calcium Level 8.8 mg/dL (8.5-10.1) Lactic Acid Level 1.0 mmol/L (0.4-2.0) Test 01/01/19 18:18 01/01/19 23:14 01/02/19 05:00 01/02/19 05:07 Glucose (Fingerstick) 270 mg/dL (70-99) 271 mg/dL (70-99) 262 mg/dL (70-99) White Blood Count 20.5 x10^3/uL (4.0-11.0) Red Blood Count 3.11 x10^6/uL (3.50-5.40) Hemoglobin 7.5 g/dL (12.0-15.5) Hematocrit 24.4 % (36.0-47.0) Mean Corpuscular Volume 78 fL (79-100) Mean Corpuscular Hemoglobin 24 pg (25-35) Mean Corpuscular Hemoglobin Concent 31 g/dL (31-37) Red Cell Distribution Width 23.1 % (11.5-14.5) Platelet Count 364 x10^3/uL (140-400) Neutrophils (%) (Auto) 89 % (31-73) Lymphocytes (%) (Auto) 4 % (24-48) Monocytes (%) (Auto) 5 % (0-9) Eosinophils (%) (Auto) 1 % (0-3) Basophils (%) (Auto) 0 % (0-3) Neutrophils # (Auto) 18.2 x10^3uL (1.8-7.7) Lymphocytes # (Auto) 0.9 x10^3/uL (1.0-4.8) Monocytes # (Auto) 1.1 x10^3/uL (0.0-1.1) Eosinophils # (Auto) 0.2 x10^3/uL (0.0-0.7) Basophils # (Auto) 0.1 x10^3/uL (0.0-0.2) Laboratory Tests Test 01/01/19 11:58 01/01/19 18:18 01/01/19 23:14 01/02/19 05:00 Glucose (Fingerstick) 263 mg/dL (70-99) 270 mg/dL (70-99) 271 mg/dL (70-99) White Blood Count 20.5 x10^3/uL (4.0-11.0) Red Blood Count 3.11 x10^6/uL (3.50-5.40) Hemoglobin 7.5 g/dL (12.0-15.5) Hematocrit 24.4 % (36.0-47.0) Mean Corpuscular Volume 78 fL (79-100) Mean Corpuscular Hemoglobin 24 pg (25-35) Mean Corpuscular Hemoglobin Concent 31 g/dL (31-37) Red Cell Distribution Width 23.1 % (11.5-14.5) Platelet Count 364 x10^3/uL (140-400) Neutrophils (%) (Auto) 89 % (31-73) Lymphocytes (%) (Auto) 4 % (24-48) Monocytes (%) (Auto) 5 % (0-9) Eosinophils (%) (Auto) 1 % (0-3) Basophils (%) (Auto) 0 % (0-3) Neutrophils # (Auto) 18.2 x10^3uL (1.8-7.7) Lymphocytes # (Auto) 0.9 x10^3/uL (1.0-4.8) Monocytes # (Auto) 1.1 x10^3/uL (0.0-1.1) Eosinophils # (Auto) 0.2 x10^3/uL (0.0-0.7) Basophils # (Auto) 0.1 x10^3/uL (0.0-0.2) Test 01/02/19 05:07 Glucose (Fingerstick) 262 mg/dL (70-99) I have reviewed the following yesterday's CXR seen another ordered for today Assessment/Plan POD 3 open right colon cont NG, trial in AM out of bed pulmonary care SAKINA PÉREZ MD Jan 02, 2019 10:50
[2019-01-02 11:00] VITALS: BP 114/71
[2019-01-02] MEDS: VANCOMYCIN PER PHARMACY MC PRN (11:22)
[2019-01-02] MEDS: IPRATRPIUM/ALBUTEROL 0.5/2.5MG 3 ML NEBU. NEB SCH ×4 (11:30→23:40)
[2019-01-02] MEDS ORDERED: VANCOMYCIN 1.25 GM in IV NORMAL SALINE 250ML 250 ML IV SCH (12:00)
[2019-01-02] MEDS: TPN PER PHARMACY MC PRN (12:09)
--- NOTE | 2019-01-02 12:11 | NUR ---
Pharmacy TPN Dosing Note S: ELLE LATHAM is a 72 year old F Currently receiving Central Continuous TPN started 12/23/18 B:Pertinent PMH: SBO Height: 5 feet, 7 inches Weight: 85.445414 kg Current diet: npo LABS: Sodium: 143 Potassium: 4.3 Chloride: 106 Calcium: 8.8 Corrected Calcium: 10.16 Magnesium: 2.1 CO2: 31 SCr: 0.8 Glucose: 282,277 Albumin: 2.3 AST: 21 ALT: 20 TPN FORMULA: TPN TYPE: Central Continuous AMINO ACIDS: 85 gm DEXTROSE: 260 gm LIPIDS: 40 gm SODIUM CHLORIDE: 90 mEq POTASSIUM CHLORIDE: 30 mEq POTASSIUM PHOSPHATE: 13.6 mmol MAGNESIUM: 15 mEq CALCIUM: 5 mEq MULTIPLE VITAMIN: 10 ml TRACE ELEMENTS: MTE5 1 ml(s) TPN PLAN: No labs today. Next labs Thursday AM. Continue same TPN. R: Continue TPN Will monitor electrolytes, glucose, and tolerance to TPN. Umair Oconnell, [facility], 01/02/19 1211
--- NOTE | 2019-01-02 12:49 | PDOC ---
Infectious Disease Note Subjective Subjective c/o thirst and is hungry, says the TPN is not doing it for her Also says her feet are cold Breathing better, less SOA Denies N/V/F/C O2 3L ROS ROS pr HPI Vital Sign Vital Signs Vital Signs Date Time Temp Pulse Resp B/P (MAP) Pulse Ox O2 Delivery O2 Flow Rate FiO2 01/02/19 12:06 Nasal Cannula 3.0 01/02/19 11:00 97.3 81 16 114/71 (85) 95 97.3 Physical Exam PHYSICAL EXAM GENERAL: Sitting in the chair, legs elevated, alert, relaxed appearance, more conversant and joking HEENT: Oral cavity pink, dry. + NGT NECK: Supple LUNGS: Diminished aeration bases HEART: S1, S2 ABDOMEN: Distended, soft, BS quiet. dressing dry. : Freeman EXTREMITIES: LLE 1+ edema. no cyanosis SKIN: No rash. Rectal wound. NEUROLOGIC: Alert, responding appropriately RUE-PICC (12/23) clean Labs Lab Laboratory Tests Test 01/01/19 18:18 01/01/19 23:14 01/02/19 05:00 01/02/19 05:07 Glucose (Fingerstick) 270 mg/dL (70-99) 271 mg/dL (70-99) 262 mg/dL (70-99) White Blood Count 20.5 x10^3/uL (4.0-11.0) Red Blood Count 3.11 x10^6/uL (3.50-5.40) Hemoglobin 7.5 g/dL (12.0-15.5) Hematocrit 24.4 % (36.0-47.0) Mean Corpuscular Volume 78 fL (79-100) Mean Corpuscular Hemoglobin 24 pg (25-35) Mean Corpuscular Hemoglobin Concent 31 g/dL (31-37) Red Cell Distribution Width 23.1 % (11.5-14.5) Platelet Count 364 x10^3/uL (140-400) Neutrophils (%) (Auto) 89 % (31-73) Lymphocytes (%) (Auto) 4 % (24-48) Monocytes (%) (Auto) 5 % (0-9) Eosinophils (%) (Auto) 1 % (0-3) Basophils (%) (Auto) 0 % (0-3) Neutrophils # (Auto) 18.2 x10^3uL (1.8-7.7) Lymphocytes # (Auto) 0.9 x10^3/uL (1.0-4.8) Monocytes # (Auto) 1.1 x10^3/uL (0.0-1.1) Eosinophils # (Auto) 0.2 x10^3/uL (0.0-0.7) Basophils # (Auto) 0.1 x10^3/uL (0.0-0.2) Test 01/02/19 12:10 Glucose (Fingerstick) 333 mg/dL (70-99) CXR 1. Improved bowel distention. 2. Small bilateral effusions with bibasilar atelectasis or infiltrates with little change. Micro 01/01. BLOOD CULTURE Preliminary NO GROWTH AFTER 1 DAY 12/21/18 Blood Culture - Preliminary, Resulted NO GROWTH AFTER 4 DAYS Objective Assessment Small bowel obstruction at previous anastomotic site. s/p exploratory laparotomy with extended right hemicolectomy and primary anastomosis, 12/30. Leukocytosis source intraabdominal from bowel obstruction likely postop, trending up S/P laparoscopic-assisted right colon resection and hemorrhoidectomy on 2018 for bleeding cecal ulcer and hemorrhoids; path negative for malignancy . Left pleural effusion with left basilar atelectasis or infiltrate. cxr 01/02 shows improvement COPD Pneumonia sputum c/s nonrevealing, 12/25 Ileus Allergies to PCN Plan Plan of Care cont Merrem vanc added per primary on 01/01 Monitor labs/temp f/u BC maintain aspiration cont supportive care d/w son Patient seen and examined. Chart reviewed in detail. Case discussed with MATERIAL EXPEDITER. Agree with above plan. HERSON PARSON APRN Jan 02, 2019 12:49 SRINIVAS GUDINO MD Jan 02, 2019 19:59
[2019-01-02] MEDS: METHYL SALICYLATE/MENTHOL TOPICAL OINTMENT 29GM TUBE. TP PRN (13:04)
--- NOTE | 2019-01-02 13:17 | PDOC ---
PROGRESS NOTES Chief Complaint Chief Complaint CC: Anemia, colonic Avms Acute hypoxic respiratory failure Cecal ulceration - s/p rt colon resection and hemorrhoidectomy 12/17 SBO - s/p ex lap, extended rt hemicolectomy POD3 VISHNU COPD Sepsis/Leukopenia - meropenem and vanco, ID following History of Present Illness History of Present Illness Pt is a 73 y/o female who is s/p rt colon resection and hemorrhoidectomy on and s/p ex lap, extended rt hemicolectomy POD3. Today she was seen and examined in her room. She is awake and up in her chair. She is looking much improved today. Breathing better. States she has no new complaints. I discussed the pt with her son and her RN. Vitals Vitals Vital Signs Date Time Temp Pulse Resp B/P (MAP) Pulse Ox O2 Delivery O2 Flow Rate FiO2 01/02/19 13:04 Nasal Cannula 3.0 01/02/19 11:00 97.3 81 16 114/71 (85) 95 97.3 Physical Exam Physical Exam GENERAL: Sitting in the chair, legs elevated, alert, relaxed appearance, more conversant and joking HEENT: Oral cavity pink, dry. + NGT NECK: Supple LUNGS: Diminished aeration bases HEART: S1, S2 ABDOMEN: Distended, soft, BS quiet. dressing dry. : Freeman EXTREMITIES: LLE 1+ edema. no cyanosis SKIN: No rash. Rectal wound. NEUROLOGIC: Alert, responding appropriately RUE-PICC (12/23) clean General: Alert, No acute distress Heart: Regular rate, No murmurs Lungs: Wheezing, Crackles Abdomen: Soft Extremities: No clubbing, No cyanosis, No edema Skin: No breakdown, No significant lesion Labs LABS Laboratory Tests Test 01/01/19 18:18 01/01/19 23:14 01/02/19 05:00 01/02/19 05:07 Glucose (Fingerstick) 270 mg/dL (70-99) 271 mg/dL (70-99) 262 mg/dL (70-99) White Blood Count 20.5 x10^3/uL (4.0-11.0) Red Blood Count 3.11 x10^6/uL (3.50-5.40) Hemoglobin 7.5 g/dL (12.0-15.5) Hematocrit 24.4 % (36.0-47.0) Mean Corpuscular Volume 78 fL (79-100) Mean Corpuscular Hemoglobin 24 pg (25-35) Mean Corpuscular Hemoglobin Concent 31 g/dL (31-37) Red Cell Distribution Width 23.1 % (11.5-14.5) Platelet Count 364 x10^3/uL (140-400) Neutrophils (%) (Auto) 89 % (31-73) Lymphocytes (%) (Auto) 4 % (24-48) Monocytes (%) (Auto) 5 % (0-9) Eosinophils (%) (Auto) 1 % (0-3) Basophils (%) (Auto) 0 % (0-3) Neutrophils # (Auto) 18.2 x10^3uL (1.8-7.7) Lymphocytes # (Auto) 0.9 x10^3/uL (1.0-4.8) Monocytes # (Auto) 1.1 x10^3/uL (0.0-1.1) Eosinophils # (Auto) 0.2 x10^3/uL (0.0-0.7) Basophils # (Auto) 0.1 x10^3/uL (0.0-0.2) Test 01/02/19 12:10 Glucose (Fingerstick) 333 mg/dL (70-99) Review of Systems Review of Systems Gen: better, denies fever, chills Heart: denies CP, palp Lung: decreased SOA, denies cough GI: denies N/V, pain Assessment and Plan Assessmemt and Plan Assessment CC: Anemia, colonic Avms Acute hypoxic respiratory failure Cecal ulceration - s/p rt colon resection and hemorrhoidectomy 12/17 SBO - s/p ex lap, extended rt hemicolectomy POD3 VISHNU COPD Sepsis/Leukopenia - meropenem and vanco, ID following Plan Abx - IV meropenem, add vanco per pharmacy, ID following TPN NG tube - per surgery PICC rt arm BiPAP PRN Breathing treatments PRN PRN narcotics Wound care Follow labs PT/OT Home meds Appreciate subspecialist input Transfused 1 unit packed RBC 01/01 Comment Review of Relevant I have reviewed the following items abdifatah (where applicable) has been applied. Labs Laboratory Tests Test 12/31/18 18:08 01/01/19 00:29 01/01/19 06:13 01/01/19 06:16 Glucose (Fingerstick) 189 mg/dL (70-99) 240 mg/dL (70-99) 555 mg/dL (70-99) 282 mg/dL (70-99) Test 01/01/19 06:30 01/01/19 09:20 01/01/19 11:58 01/01/19 18:18 White Blood Count 24.5 x10^3/uL (4.0-11.0) Red Blood Count 2.95 x10^6/uL (3.50-5.40) Hemoglobin 6.8 g/dL (12.0-15.5) Hematocrit 22.6 % (36.0-47.0) Mean Corpuscular Volume 77 fL (79-100) Mean Corpuscular Hemoglobin 23 pg (25-35) Mean Corpuscular Hemoglobin Concent 30 g/dL (31-37) Red Cell Distribution Width 24.1 % (11.5-14.5) Platelet Count 344 x10^3/uL (140-400) Neutrophils (%) (Auto) 91 % (31-73) Lymphocytes (%) (Auto) 4 % (24-48) Monocytes (%) (Auto) 4 % (0-9) Eosinophils (%) (Auto) 1 % (0-3) Basophils (%) (Auto) 0 % (0-3) Neutrophils # (Auto) 22.3 x10^3uL (1.8-7.7) Lymphocytes # (Auto) 1.0 x10^3/uL (1.0-4.8) Monocytes # (Auto) 1.0 x10^3/uL (0.0-1.1) Eosinophils # (Auto) 0.1 x10^3/uL (0.0-0.7) Basophils # (Auto) 0.1 x10^3/uL (0.0-0.2) Sodium Level 143 mmol/L (136-145) Potassium Level 4.3 mmol/L (3.5-5.1) Chloride Level 106 mmol/L (98-107) Carbon Dioxide Level 31 mmol/L (21-32) Anion Gap 6 (6-14) Blood Urea Nitrogen 26 mg/dL (7-20) Creatinine 0.8 mg/dL (0.6-1.0) Estimated GFR (Cockcroft-Gault) 84.6 Glucose Level 277 mg/dL (70-99) Calcium Level 8.8 mg/dL (8.5-10.1) Lactic Acid Level 1.0 mmol/L (0.4-2.0) Glucose (Fingerstick) 263 mg/dL (70-99) 270 mg/dL (70-99) Test 01/01/19 23:14 01/02/19 05:00 01/02/19 05:07 01/02/19 12:10 Glucose (Fingerstick) 271 mg/dL (70-99) 262 mg/dL (70-99) 333 mg/dL (70-99) White Blood Count 20.5 x10^3/uL (4.0-11.0) Red Blood Count 3.11 x10^6/uL (3.50-5.40) Hemoglobin 7.5 g/dL (12.0-15.5) Hematocrit 24.4 % (36.0-47.0) Mean Corpuscular Volume 78 fL (79-100) Mean Corpuscular Hemoglobin 24 pg (25-35) Mean Corpuscular Hemoglobin Concent 31 g/dL (31-37) Red Cell Distribution Width 23.1 % (11.5-14.5) Platelet Count 364 x10^3/uL (140-400) Neutrophils (%) (Auto) 89 % (31-73) Lymphocytes (%) (Auto) 4 % (24-48) Monocytes (%) (Auto) 5 % (0-9) Eosinophils (%) (Auto) 1 % (0-3) Basophils (%) (Auto) 0 % (0-3) Neutrophils # (Auto) 18.2 x10^3uL (1.8-7.7) Lymphocytes # (Auto) 0.9 x10^3/uL (1.0-4.8) Monocytes # (Auto) 1.1 x10^3/uL (0.0-1.1) Eosinophils # (Auto) 0.2 x10^3/uL (0.0-0.7) Basophils # (Auto) 0.1 x10^3/uL (0.0-0.2) Laboratory Tests Test 01/01/19 18:18 01/01/19 23:14 01/02/19 05:00 01/02/19 05:07 Glucose (Fingerstick) 270 mg/dL (70-99) 271 mg/dL (70-99) 262 mg/dL (70-99) White Blood Count 20.5 x10^3/uL (4.0-11.0) Red Blood Count 3.11 x10^6/uL (3.50-5.40) Hemoglobin 7.5 g/dL (12.0-15.5) Hematocrit 24.4 % (36.0-47.0) Mean Corpuscular Volume 78 fL (79-100) Mean Corpuscular Hemoglobin 24 pg (25-35) Mean Corpuscular Hemoglobin Concent 31 g/dL (31-37) Red Cell Distribution Width 23.1 % (11.5-14.5) Platelet Count 364 x10^3/uL (140-400) Neutrophils (%) (Auto) 89 % (31-73) Lymphocytes (%) (Auto) 4 % (24-48) Monocytes (%) (Auto) 5 % (0-9) Eosinophils (%) (Auto) 1 % (0-3) Basophils (%) (Auto) 0 % (0-3) Neutrophils # (Auto) 18.2 x10^3uL (1.8-7.7) Lymphocytes # (Auto) 0.9 x10^3/uL (1.0-4.8) Monocytes # (Auto) 1.1 x10^3/uL (0.0-1.1) Eosinophils # (Auto) 0.2 x10^3/uL (0.0-0.7) Basophils # (Auto) 0.1 x10^3/uL (0.0-0.2) Test 01/02/19 12:10 Glucose (Fingerstick) 333 mg/dL (70-99) Microbiology 01/01/19 Blood Culture - Preliminary, Resulted NO GROWTH AFTER 1 DAY 12/25/18 - Final, Complete 12/25/18 - Final, Complete 12/25/18 - Final, Complete 12/25/18 - Final, Complete 12/25/18 Gram Stain Evaluation - Final, Complete 12/25/18 Sputum Culture - Final, Complete 12/25/18 Sputum Result 1 - Final, Complete Medications Current Medications Sodium Chloride 1,000 ml @ 1,000 mls/hr 1X ONCE IV Last administered on 13:52; Start 12/14/18 at 13:30; Stop 12/14/18 at 14:29; Status DC Amlodipine Besylate (Norvasc) 10 mg DAILY PO Last administered on 12/26/18 10: 01; Start 12/14/18 at 17:00 Chlorhexidine Gluconate (Peridex) 15 ml BID MM Last administered on 01/02/19 08:30; Start 12/14/18 at 21:00 Non-Formulary Medication (Albuterol Sulfate (Ventolin Hfa Inhaler)) 2 puff Q4HRS INH ; Start 12/14/18 at 20:00; Status UNV Ascorbic Acid (Vitamin C) 500 mg DAILY PO Last administered on 12/22/18 10:30; Start 12/14/18 at 17:00 Duloxetine HCl (Cymbalta) 90 mg DAILY PO Last administered on 12/22/18 10:30; Start 12/14/18 at 17:00 Ferrous Sulfate (Feosol) 325 mg [id number] PO Last administered on 12/22/18 10: 30; Start 12/14/18 at 17:00 Losartan Potassium (Cozaar) 100 mg DAILY PO Last administered on 12/22/18 10:29 ; Start 12/14/18 at 17:00 Memantine (Namenda) 10 mg BID PO Last administered on 12/26/18 21:25; Start at 21:00 Pantoprazole Sodium (Protonix) 40 mg DAILYAC PO Last administered on 12/22/18 05:28; Start 12/14/18 at 17:00; Stop 12/24/18 at 09:25; Status DC Ropinirole HCl (Requip) 3 mg QHS PO Last administered on 12/26/18 21:25; Start 12/14/18 at 21:00 Spironolactone (Aldactone) 25 mg DAILY PO Last administered on 12/26/18 10:42 ; Start 12/14/18 at 17:00 Albuterol Sulfate (Ventolin Neb Soln) 2.5 mg Q4HRS NEB Last administered on 2/ 17/19at 06:52; Start 12/14/18 at 20:00; Stop 01/02/19 at 07:24; Status DC Sodium Chloride 1,000 ml @ 80 mls/hr [id number] IV Last administered on 12/23/18at 15:25; Start 12/14/18 at 17:15; Stop 12/23/18 at 21:59; Status DC Acetaminophen (Tylenol) 650 mg PRN Q6HRS PRN PO Pain Last administered on at 21:27; Start 12/15/18 at 04:45; Stop 12/26/18 at 21:07; Status DC Polyethylene Glycol (miraLAX Powder BULK BOTTLE) 238 gm 1X ONCE PO Last administered on 12/15/18at 12:48; Start 12/15/18 at 12:00; Stop 12/15/18 at 12:01 ; Status DC Ondansetron HCl (Zofran) 4 mg PRN Q6HRS PRN IV NAUSEA/VOMITING; Start 12/16/18 at 07:00; Stop 12/17/18 at 06:59; Status DC Fentanyl Citrate (Fentanyl 2ml Vial) 25 mcg PRN Q5MIN PRN IV MILD PAIN; Start 12/16/18 at 07:00; Stop 12/16/18 at 16:33; Status DC Fentanyl Citrate (Fentanyl 2ml Vial) 50 mcg PRN Q5MIN PRN IV MODERATE TO SEVERE PAIN; Start 12/16/18 at 07:00; Stop 12/16/18 at 16:33; Status DC Morphine Sulfate (Morphine Sulfate) 1 mg PRN Q10MIN PRN IV SEVERE PAIN; Start 12/16/18 at 07:00; Stop 12/17/18 at 06:59; Status DC Ringer's Solution 1,000 ml @ 30 mls/hr Q24H IV Last administered on 12/16/18at 13:00; Start 12/16/18 at 07:00; Stop 12/16/18 at 18:59; Status DC Lidocaine HCl (Xylocaine-Mpf 1% 2ml Vial) 2 ml PRN 1X PRN ID IV START; Start at 07:00; Stop 12/17/18 at 06:59; Status DC Hydromorphone HCl (Dilaudid) 0.5 mg PRN Q10MIN PRN IV SEV PAIN, Second choice; Start 12/16/18 at 07:00; Stop 12/17/18 at 06:59; Status DC Prochlorperazine Edisylate (Compazine) 5 mg PACU PRN PRN IV NAUSEA, MRX1; Start 12/16/18 at 07:00; Stop 12/17/18 at 06:59; Status DC Midazolam HCl (Versed) 2 mg PRN 1X PRN IV PRIOR TO PROCEDURE; Start 12/16/18 at 07:15; Stop 12/17/18 at 07:14; Status DC Fentanyl Citrate (Fentanyl 2ml Vial) 25 mcg PRN Q5MIN PRN IV X 2 DOSES FOR PAIN ; Start 12/16/18 at 07:15; Stop 12/16/18 at 16:33; Status DC Fentanyl Citrate (Fentanyl 2ml Vial) 50 mcg PRN Q5MIN PRN IV X 2 DOSES FOR PAIN ; Start 12/16/18 at 07:15; Stop 12/16/18 at 16:34; Status DC Ringer's Solution 1,000 ml @ 125 mls/hr Q8H IV ; Start 12/16/18 at 07:13; Stop 12/16/18 at 19:12; Status DC Lidocaine HCl (Xylocaine-Mpf 1% 2ml Vial) 2 ml 1X PRN PRN ID IV START; Start at 07:15; Stop 12/17/18 at 07:14; Status DC Propofol 40 ml @ As Directed STK-MED ONCE IV ; Start 12/16/18 at 13:58; Stop at 14:00; Status DC Prochlorperazine Edisylate (Compazine) 5 mg PACU PRN PRN IV NAUSEA, MRX1; Start 12/17/18 at 07:00; Stop 12/18/18 at 06:59; Status DC Hydromorphone HCl (Dilaudid) 0.5 mg PRN Q10MIN PRN IV SEV PAIN, Second choice; Start 12/17/18 at 07:00; Stop 12/18/18 at 06:59; Status DC Lidocaine HCl (Xylocaine-Mpf 1% 2ml Vial) 2 ml PRN 1X PRN ID IV START; Start at 07:00; Stop 12/18/18 at 06:59; Status DC Ringer's Solution 1,000 ml @ 30 mls/hr Q24H IV Last administered on 12/17/18at 10:34; Start 12/17/18 at 07:00; Stop 12/17/18 at 18:59; Status DC Morphine Sulfate (Morphine Sulfate) 1 mg PRN Q10MIN PRN IV SEVERE PAIN; Start 12/17/18 at 07:00; Stop 12/18/18 at 06:59; Status DC Fentanyl Citrate (Fentanyl 2ml Vial) 50 mcg PRN Q5MIN PRN IV MODERATE TO SEVERE PAIN Last administered on 12/17/18at 11:13; Start 12/17/18 at 07:00; Stop at 06:59; Status DC Fentanyl Citrate (Fentanyl 2ml Vial) 25 mcg PRN Q5MIN PRN IV MILD PAIN; Start 12/17/18 at 07:00; Stop 12/18/18 at 06:59; Status DC Ondansetron HCl (Zofran) 4 mg PRN Q6HRS PRN IV NAUSEA/VOMITING; Start 12/17/18 at 07:00; Stop 12/18/18 at 06:59; Status DC Propofol 20 ml @ As Directed STK-MED ONCE IV ; Start 12/17/18 at 07:21; Stop 12/17 at 07:23; Status DC Albuterol Sulfate (Ventolin Neb Soln) 2.5 mg 1X ONCE NEB ; Start 12/17/18 at 07: 30; Stop 12/17/18 at 07:31; Status DC Lidocaine HCl (Lidocaine Pf 2% Vial) 5 ml STK-MED ONCE .ROUTE ; Start 12/17/18 at 07:21; Stop 12/17/18 at 07:23; Status DC Succinylcholine Chloride (Anectine) 200 mg STK-MED ONCE .ROUTE ; Start 12/17/18 at 07:21; Stop 12/17/18 at 07:23; Status DC Rocuronium [place] (Zemuron) 50 mg STK-MED ONCE .ROUTE ; Start 12/17/18 at 07:21 ; Stop 12/17/18 at 07:23; Status DC Fentanyl Citrate (Fentanyl 2ml Vial) 100 mcg STK-MED ONCE .ROUTE ; Start at 07:21; Stop 12/17/18 at 07:24; Status DC Cefazolin Sodium/ Dextrose 50 ml @ 100 mls/hr 1X ONCE IV Last administered on 12/17/18at 08:07; Start 12/17/18 at 07:45; Stop 12/17/18 at 08:18; Status DC Bupivacaine HCl/ Epinephrine Bitart (Sensorcain-Mpf Epi 0.5%-[id number]) 30 ml STK -MED ONCE .ROUTE Last administered on 12/17/18at 08:34; Start 12/17/18 at 07:46; Stop 12/17/18 at 07:49; Status DC Neomycin/ Polymyxin/ Bacitracin (Triple Antibiotic Ointment) 1 pkt STK-MED ONCE TP Last administered on 12/17/18at 10:07; Start 12/17/18 at 07:46; Stop 12/17/18 at 07:49; Status DC Neomycin/ Polymyxin/ Bacitracin (Triple Antibiotic Ointment) 1 pkt STK-MED ONCE TP Last administered on 12/17/18at 10:07; Start 12/17/18 at 07:46; Stop 12/17/18 at 07:49; Status DC Neomycin/ Polymyxin/ Bacitracin (Triple Antibiotic Ointment) 1 pkt STK-MED ONCE TP ; Start 12/17/18 at 07:47; Stop 12/17/18 at 07:49; Status DC Dexamethasone Sodium Phosphate (Decadron) 20 mg STK-MED ONCE .ROUTE ; Start 12/17 at 07:54; Stop 12/17/18 at 07:56; Status DC Hydrocortisone Sodium Succinate (Solu-CORTEF) 100 mg STK-MED ONCE .ROUTE ; Start 12/17/18 at 07:54; Stop 12/17/18 at 07:56; Status DC Desflurane (Suprane) 90 ml STK-MED ONCE IH ; Start 12/17/18 at 07:54; Stop at 07:56; Status DC Neostigmine Methylsulfate (Bloxiverz) 10 mg STK-MED ONCE .ROUTE ; Start 12/17/18 at 08:21; Stop 12/17/18 at 08:24; Status DC Glycopyrrolate (Robinul) 1 mg STK-MED ONCE .ROUTE ; Start 12/17/18 at 08:21; Stop 12/17/18 at 08:24; Status DC Phenylephrine HCl (Bogdan-Synephrine Inj) 10 mg STK-MED ONCE .ROUTE ; Start at 08:23; Stop 12/17/18 at 08:26; Status DC Desflurane (Suprane) 60 ml STK-MED ONCE IH ; Start 12/17/18 at 09:23; Stop at 09:26; Status DC Bupivacaine HCl/ Epinephrine Bitart (Sensorcain-Mpf Epi 0.5%-1:[id number]) 30 ml STK -MED ONCE .ROUTE Last administered on 12/17/18at 10:06; Start 12/17/18 at 09:41; Stop 12/17/18 at 09:43; Status DC Morphine Sulfate (Morphine Sulfate) 2 mg PRN Q2HR PRN IV PAIN Last administered on 12/25/18 09:26; Start 12/17/18 at 10:15; Stop 12/25/18 at 17:54; Status DC Ketorolac Tromethamine (Toradol 15mg Vial) 15 mg Q6HRS IV Last administered on 12/18/18at 05:39; Start 12/17/18 at 12:00; Stop 12/18/18 at 10:00; Status DC Artificial Tears (Artificial Tears) 1 drop PRN Q15MIN PRN OU DRY EYE Last administered on 12/20/18at 21:28; Start 12/18/18 at 08:00 Docusate Sodium (Colace) 100 mg DAILY PO Last administered on 12/26/18at 10:01; Start 12/18/18 at 10:00 Throat Lozenges (Cepacol Sore Throat Lozenge) 1 kristyn PRN Q2HRS PRN PO SORE THROAT Last administered on 12/26/18at 10:01; Start 12/18/18 at 14:00 Enoxaparin Sodium (Lovenox 40mg Syringe) 40 mg Q24H SQ Last administered on at 08:31; Start 12/19/18 at 09:00 Ondansetron HCl (Zofran) 4 mg PRN Q6HRS PRN IV NAUSEA/VOMITING Last administered on 01/01/19at 14:46; Start 12/19/18 at 11:30 Insulin Human Lispro (HumaLOG) 0-5 UNITS TIDWMEALS SQ Last administered on 12/30 18:23; Start 12/19/18 at 17:00; Stop 12/31/18 at 00:05; Status DC Dextrose (Dextrose 50%-Water Syringe) 12.5 gm PRN Q15MIN PRN IV SEE COMMENTS; Start 12/19/18 at 16:45 Levofloxacin/ Dextrose 100 ml @ 100 mls/hr 1X ONCE IV Last administered on 20:56; Start 12/19/18 at 21:00; Stop 12/19/18 at 21:59; Status DC Cefepime HCl (Maxipime) 2 gm Q12HR IVP Last administered on 12/29/18 10:02; Start 12/21/18 at 10:00; Stop 12/29/18 at 10:37; Status DC Sodium Chloride 1,000 ml @ 125 mls/hr 1X ONCE IV Last administered on 10:43; Start 12/21/18 at 09:45; Stop 12/21/18 at 17:44; Status DC Calcium Carbonate/ Glycine (Tums) 500 mg PRN AFTMEALHC PRN PO INDIGESTION Last administered on 12/21/18 13:10; Start 12/21/18 at 12:15 Lorazepam (Ativan) 1 mg 1X ONCE IV Last administered on 12/21/18 17:50; Start 12/21/18 at 17:30; Stop 12/21/18 at 17:31; Status DC Albuterol Sulfate (Ventolin Neb Soln) 2.5 mg PRN Q2HRS PRN NEB SHORTNESS OF BREATH Last administered on 12/26/18 10:26; Start 12/21/18 at 17:30 Nicotine (Nicoderm Cq 14mg) 1 patch PRN DAILY PRN TD SMOKING CESSATION Last administered on 12/26/18 09:59; Start 12/21/18 at 19:30 Lorazepam (Ativan) 1 mg 1X ONCE IV Last administered on 12/21/18 23:45; Start 12/21/18 at 23:45; Stop 12/21/18 at 23:46; Status DC Lorazepam (Ativan) 1 mg PRN Q4HRS PRN IV ANXIETY / AGITATION Last administered on 12/22/18 11:15; Start 12/21/18 at 23:30; Stop 12/22/18 at 14:42; Status DC Sodium Chloride 1,000 ml @ 250 mls/hr 1X ONCE IV Last administered on 09:15; Start 12/22/18 at 09:15; Stop 12/22/18 at 13:14; Status DC Lidocaine/Sodium Bicarbonate (Buffered Lidocaine 1%) 3 ml STK-MED ONCE .ROUTE ; Start 12/23/18 at 10:33; Stop 12/23/18 at 10:35; Status DC Lidocaine/Sodium Bicarbonate (Buffered Lidocaine 1%) 3 ml 1X ONCE INJ Last administered on 12/23/18 11:24; Start 12/23/18 at 11:00; Stop 12/23/18 at 11:10; Status DC Info (Tpn Per Pharmacy) 1 each PRN DAILY PRN MC SEE COMMENTS Last administered on 01/02/19at 12:09; Start 12/23/18 at 14:00 Sodium Chloride 90 meq/Potassium Chloride 50 meq/ Potassium Phosphate 20.4 mmol/ Magnesium Sulfate 18 meq/ Calcium Gluconate 5 meq/ Multivitamins 10 ml/Chromium / Copper/Manganese/ Seleni/Zn 1 ml/ Total Parenteral Nutrition/Amino Acids/ Dextrose/ Fat Emulsion Intravenous 1,512 ml @ 63 mls/hr TPN CONT IV Last administered on 12/23/18 21:37; Start 12/23/18 at 22:00; Stop 12/24/18 at 21:59; Status DC Alprazolam (Xanax) 0.25 mg PRN BID PRN PO ANXIETY / AGITATION Last administered on 12/25/18 09:25; Start 12/23/18 at 23:00; Stop 12/25/18 at 17:54; Status DC Lorazepam (Ativan) 1 mg PRN Q4HRS PRN IV ANXIETY / AGITATION Last administered on 12/24/18at 09:21; Start 12/24/18 at 08:45; Stop 12/24/18 at 10:19; Status DC Pantoprazole Sodium (PROTONIX VIAL for IV PUSH) 40 mg DAILYAC IVP Last administered on 01/02/19at 06:38; Start 12/24/18 at 09:30 Lorazepam (Ativan) 0.5 mg PRN Q4HRS PRN IV ANXIETY / AGITATION Last administered on 12/25/18at 04:47; Start 12/24/18 at 10:30; Stop 12/25/18 at 10:22; Status DC Sodium Chloride 45 meq/Sodium Acetate 45 meq/ Potassium Chloride 50 meq/ Potassium Phosphate 20.4 mmol/Magnesium Sulfate 18 meq/ Calcium Gluconate 5 meq / Multivitamins 10 ml/Chromium/ Copper/Manganese/ Seleni/Zn 1 ml/ Total Parenteral Nutrition/Amino Acids/Dextrose/ Fat Emuls... 1,512 ml @ 63 mls/hr TPN CONT IV Last administered on 12/24/18at 21:57; Start 12/24/18 at 22:00; Stop 12/25/18 at 21:59; Status DC Phenyleph/Shark Oil/Min Oil/Petrol (Preparation H) 1 ranjith PRN Q4HRS PRN RC RECTAL PAIN; Start 12/24/18 at 12:45; Stop 12/25/18 at 20:20; Status DC Sodium Chloride 45 meq/Sodium Acetate 45 meq/ Potassium Chloride 50 meq/ Potassium Phosphate 20.4 mmol/Magnesium Sulfate 18 meq/ Calcium Gluconate 5 meq / Multivitamins 10 ml/Chromium/ Copper/Manganese/ Seleni/Zn 1 ml/ Total Parenteral Nutrition/Amino Acids/Dextrose/ Fat Emuls... 1,512 ml @ 63 mls/hr TPN CONT IV Last administered on 12/26/18at 00:34; Start 12/25/18 at 22:00; Stop 12/26/18 at 21:59; Status DC Neomycin/ Polymyxin/ Bacitracin (Triple Antibiotic Ointment) 1 pkt PRN TID PRN TP skin around rectum, post op Last administered on 12/26/18at 09:58; Start at 14:30 Alprazolam (Xanax) 0.25 mg PRN Q8HRS PRN PO ANXIETY / AGITATION Last administered on 01/01/19at 02:34; Start 12/25/18 at 18:00 Morphine Sulfate (Morphine Sulfate) 2 mg PRN Q6HRS PRN IV PAIN Last administered on 12/29/18at 21:47; Start 12/25/18 at 18:00; Stop 12/30/18 at 03:17 ; Status DC Guaifenesin (Mucinex) 600 mg BID PO Last administered on 12/26/18at 21:26; Start 12/26/18 at 11:00 Guaifenesin (Mucinex) 600 mg BID PO ; Start 12/26/18 at 11:00; Status UNV Guaifenesin/ Codeine Phosphate (Robitussin Ac) 5 ml PRN Q6HRS PRN PO COUGH Last administered on 12/26/18at 10:41; Start 12/26/18 at 10:30 Sodium Acetate 90 meq/Potassium Chloride 50 meq/ Potassium Phosphate 13.6 mmol/ Magnesium Sulfate 18 meq/ Calcium Gluconate 5 meq/ Multivitamins 10 ml/Chromium / Copper/Manganese/ Seleni/Zn 1 ml/ Total Parenteral Nutrition/Amino Acids/ Dextrose/ Fat Emulsion Intravenous 1,512 ml @ 63 mls/hr TPN CONT IV Last administered on 12/26/18at 21:37; Start 12/26/18 at 22:00; Stop 12/28/18 at 01:28 ; Status DC Benzocaine (Hurricaine One) 1 spray 1X ONCE MM ; Start 12/26/18 at 19:15; Stop 12/26/18 at 19:16; Status DC Acetaminophen (Tylenol) 650 mg PRN Q6HRS PRN PO MILD PAIN / TEMP Last administered on 12/27/18at 04:39; Start 12/26/18 at 21:00 Benzocaine (Hurricaine One) 1 spray 1X ONCE MM Last administered on 12/27/18at 09:00; Start 12/27/18 at 09:15; Stop 12/27/18 at 09:16; Status DC Sodium Acetate 90 meq/Potassium Chloride 50 meq/ Potassium Phosphate 13.6 mmol/ Magnesium Sulfate 15 meq/ Calcium Gluconate 5 meq/ Multivitamins 10 ml/Chromium / Copper/Manganese/ Seleni/Zn 1 ml/ Total Parenteral Nutrition/Amino Acids/ Dextrose/ Fat Emulsion Intravenous 1,512 ml @ 63 mls/hr TPN CONT IV ; Start at 22:00; Stop 12/28/18 at 21:59; Status Cancel Sodium Acetate 90 meq/Potassium Chloride 50 meq/ Potassium Phosphate 13.6 mmol/ Magnesium Sulfate 15 meq/ Calcium Gluconate 5 meq/ Multivitamins 10 ml/Chromium / Copper/Manganese/ Seleni/Zn 1 ml/ Total Parenteral Nutrition/Amino Acids/ Dextrose/ Fat Emulsion Intravenous 1,512 ml @ 63 mls/hr TPN CONT IV ; Start at 22:00; Stop 12/28/18 at 21:59; Status DC Lidocaine/Sodium Bicarbonate (Buffered Lidocaine 1%) 3 ml 1X ONCE INJ ; Start 12/28/18 at 09:00; Stop 12/28/18 at 09:01; Status Cancel Benzocaine (Hurricaine One) 1 spray 1X ONCE MM Last administered on 12/28/18at 09:32; Start 12/28/18 at 09:30; Stop 12/28/18 at 09:33; Status DC Sodium Acetate 90 meq/Potassium Chloride 50 meq/ Potassium Phosphate 13.6 mmol/ Magnesium Sulfate 15 meq/ Calcium Gluconate 5 meq/ Multivitamins 10 ml/Chromium / Copper/Manganese/ Seleni/Zn 1 ml/ Total Parenteral Nutrition/Amino Acids/ Dextrose/ Fat Emulsion Intravenous 1,512 ml @ 63 mls/hr TPN CONT IV Last administered on 12/28/18at 22:06; Start 12/28/18 at 22:00; Stop 12/29/18 at 21:59 ; Status DC Iohexol (Omnipaque 300 Mg/ml) 400 ml 1X ONCE PO Last administered on at 08:15; Start 12/29/18 at 06:45; Stop 12/29/18 at 06:46; Status DC Info (CONTRAST GIVEN -- Rx MONITORING) 1 each PRN DAILY PRN MC SEE COMMENTS; Start 12/29/18 at 06:45; Stop 12/31/18 at 06:44; Status DC Iohexol (Omnipaque 300 Mg/ml) 400 ml 1X ONCE PO ; Start 12/29/18 at 07:00; Stop 12/29/18 at 07:03; Status DC Info (CONTRAST GIVEN -- Rx MONITORING) 1 each PRN DAILY PRN MC SEE COMMENTS; Start 12/29/18 at 07:15; Stop 12/31/18 at 07:14; Status DC Meropenem 500 mg/ Sodium Chloride 50 ml @ 100 mls/hr Q6HRS IV Last administered on 01/02/19at 12:05; Start 12/29/18 at 12:00 Multi-Ingredient Ointment (Analgesic [place]) 1 ranjith PRN QID PRN TP MUSCLE PAIN Last administered on 01/02/19at 13:04; Start 12/29/18 at 13:00 Sodium Acetate 90 meq/Potassium Chloride 50 meq/ Potassium Phosphate 13.6 mmol/ Magnesium Sulfate 15 meq/ Calcium Gluconate 5 meq/ Multivitamins 10 ml/Chromium / Copper/Manganese/ Seleni/Zn 1 ml/ Total Parenteral Nutrition/Amino Acids/ Dextrose/ Fat Emulsion Intravenous 1,512 ml @ 63 mls/hr TPN CONT IV Last administered on 12/29/18at 21:40; Start 12/29/18 at 22:00; Stop 12/30/18 at 21:59 ; Status DC Morphine Sulfate (Morphine Sulfate) 2 mg PRN Q4HRS PRN IV SEVERE PAIN Last administered on 12/30/18at 19:50; Start 12/30/18 at 03:30; Stop 12/30/18 at 21:33 ; Status DC Propofol 20 ml @ As Directed STK-MED ONCE IV ; Start 12/30/18 at 12:51; Stop at 12:52; Status DC Dexamethasone Sodium Phosphate (Decadron) 20 mg STK-MED ONCE .ROUTE ; Start at 12:51; Stop 12/30/18 at 12:52; Status DC Lidocaine HCl (Lidocaine Pf 2% Vial) 5 ml STK-MED ONCE .ROUTE ; Start 12/30/18 at 12:51; Stop 12/30/18 at 12:52; Status DC Ondansetron HCl (Zofran) 4 mg STK-MED ONCE .ROUTE ; Start 12/30/18 at 12:51; Stop 12/30/18 at 12:52; Status DC Rocuronium [place] (Zemuron) 50 mg STK-MED ONCE .ROUTE ; Start 12/30/18 at 12:51 ; Stop 12/30/18 at 12:52; Status DC Succinylcholine Chloride (Anectine) 200 mg STK-MED ONCE .ROUTE ; Start 12/30/18 at 12:51; Stop 12/30/18 at 12:52; Status DC Fentanyl Citrate (Fentanyl 5ml Vial) 250 mcg STK-MED ONCE .ROUTE ; Start at 13:49; Stop 12/30/18 at 13:50; Status DC Sodium Chloride 90 meq/Potassium Chloride 50 meq/ Potassium Phosphate 13.6 mmol/ Magnesium Sulfate 15 meq/ Multivitamins 10 ml/Chromium/ Copper/Manganese/ Seleni /Zn 1 ml/ Total Parenteral Nutrition/Amino Acids/Dextrose/ Fat Emulsion Intravenous 1,512 ml @ 63 mls/hr TPN CONT IV Last administered on 12/30/18at 23:43; Start 12/30/18 at 22:00; Stop 12/31/18 at 21:59; Status DC Vasopressin (Vasostrict) 20 unit STK-MED ONCE .ROUTE ; Start 12/30/18 at 15:00; Stop 12/30/18 at 15:01; Status DC Sodium Chloride (SODIUM CHLORIDE 20ml) 20 ml STK-MED ONCE IJ ; Start 12/30/18 at 15:01; Stop 12/30/18 at 15:02; Status DC Albumin Human 500 ml @ As Directed STK-MED ONCE IV ; Start 12/30/18 at 15:01; Stop 12/30/18 at 15:02; Status DC Glycopyrrolate (Robinul) 1 mg STK-MED ONCE .ROUTE ; Start 12/30/18 at 15:21; Stop 12/30/18 at 15:22; Status DC Neostigmine Methylsulfate (Bloxiverz) 10 mg STK-MED ONCE .ROUTE ; Start at 15:21; Stop 12/30/18 at 15:22; Status DC Albuterol/ Ipratropium (Duoneb) 3 ml STK-MED ONCE .ROUTE ; Start 12/30/18 at 15: 45; Stop 12/30/18 at 15:46; Status DC Fentanyl Citrate (Fentanyl 2ml Vial) 100 mcg STK-MED ONCE .ROUTE ; Start at 16:56; Stop 12/30/18 at 16:57; Status DC Ondansetron HCl (Zofran) 4 mg PRN Q6HRS PRN IV NAUSEA/VOMITING; Start 12/30/18 at 17:15; Stop 12/30/18 at 21:35; Status DC Fentanyl Citrate (Fentanyl 2ml Vial) 25 mcg PRN Q5MIN PRN IV MILD PAIN Last administered on 12/30/18at 17:15; Start 12/30/18 at 17:15; Stop 12/30/18 at 21:35 ; Status DC Fentanyl Citrate (Fentanyl 2ml Vial) 50 mcg PRN Q5MIN PRN IV MODERATE TO SEVERE PAIN Last administered on 12/30/18at 17:57; Start 12/30/18 at 17:15; Stop 12/30/18 at 21:35; Status DC Morphine Sulfate (Morphine Sulfate) 1 mg PRN Q10MIN PRN IV SEVERE PAIN; Start 12/30/18 at 17:15; Stop 12/31/18 at 17:14; Status DC Ringer's Solution 1,000 ml @ 30 mls/hr Q24H IV Last administered on 12/30/18at 18:09; Start 12/30/18 at 17:10; Stop 12/30/18 at 21:33; Status DC Lidocaine HCl (Xylocaine-Mpf 1% 2ml Vial) 2 ml 1X PRN PRN ID IV START; Start at 17:15; Stop 12/30/18 at 21:35; Status DC Hydromorphone HCl (Dilaudid) 0.5 mg PRN Q10MIN PRN IV SEV PAIN, Second choice; Start 12/30/18 at 17:15; Stop 12/30/18 at 21:35; Status DC Prochlorperazine Edisylate (Compazine) 5 mg PACU PRN PRN IV NAUSEA, MRX1; Start 12/30/18 at 17:15; Stop 12/30/18 at 21:35; Status DC Albumin Human 100 ml @ 100 mls/hr 1X ONCE IV Last administered on 12/30/18at 22:00; Start 12/30/18 at 22:00; Stop 12/30/18 at 22:59; Status DC Ringer's Solution 500 ml @ 500 mls/hr 1X ONCE IV Last administered on at 22:00; Start 12/30/18 at 22:00; Stop 12/30/18 at 22:59; Status DC Ringer's Solution 1,000 ml @ 100 mls/hr Q10H IV Last administered on at 00:58; Start 12/30/18 at 23:00; Stop 01/01/19 at 09:30; Status DC Hydromorphone HCl (Dilaudid) 0.5 mg PRN Q2HR PRN IV MODERATE PAIN Last administered on 12/31/18at 00:37; Start 12/30/18 at 21:30 Hydromorphone HCl (Dilaudid) 1 mg PRN Q2HR PRN IV SEVERE PAIN Last administered on 01/02/19at 12:06; Start 12/30/18 at 21:30 Insulin Human Lispro (HumaLOG) 0-5 UNITS Q6HRS SQ Last administered on at 12:13; Start 12/31/18 at 00:30 Sodium Chloride 90 meq/Potassium Chloride 30 meq/ Potassium Phosphate 13.6 mmol/ Magnesium Sulfate 15 meq/ Calcium Gluconate 5 meq/ Multivitamins 10 ml/Chromium / Copper/Manganese/ Seleni/Zn 1 ml/ Total Parenteral Nutrition/Amino Acids/ Dextrose/ Fat Emulsion Intravenous 1,512 ml @ 63 mls/hr TPN CONT IV Last administered on 12/31/18at 21:58; Start 12/31/18 at 22:00; Stop 01/01/19 at 21:59 ; Status DC Sodium Chloride 90 meq/Potassium Chloride 30 meq/ Potassium Phosphate 13.6 mmol/ Magnesium Sulfate 15 meq/ Calcium Gluconate 5 meq/ Multivitamins 10 ml/Chromium / Copper/Manganese/ Seleni/Zn 1 ml/ Total Parenteral Nutrition/Amino Acids/ Dextrose/ Fat Emulsion Intravenous 1,512 ml @ 63 mls/hr TPN CONT IV Last administered on 01/01/19at 21:09; Start 01/01/19 at 22:00; Stop 01/02/19 at 21:59 Vancomycin HCl (Vanco Per Pharmacy) 1 each PRN DAILY PRN MC SEE COMMENTS Last administered on 01/02/19at 11:22; Start 01/01/19 at 11:15 Vancomycin HCl 2 gm/Sodium Chloride 500 ml @ 250 mls/hr ONCE ONCE IV Last administered on 01/01/19at 12:28; Start 01/01/19 at 12:00; Stop 01/01/19 at 13:59 ; Status DC Vancomycin HCl 1.25 gm/Sodium Chloride 250 ml @ 166.667 mls/hr Q24H IV ; Start 01/01/19 at 12:00; Status Cancel Vancomycin HCl (Vancomycin Trough Level) 1 each 1X ONCE MC ; Start 01/03/19 at 11:30; Stop 01/03/19 at 11:31 Vancomycin HCl 1.25 gm/Sodium Chloride 250 ml @ 166.667 mls/hr Q24H IV Last administered on 01/02/19at 13:04; Start 01/02/19 at 12:00 Albuterol/ Ipratropium (Duoneb) 3 ml 1X ONCE NEB Last administered on at 08:19; Start 01/02/19 at 07:30; Stop 01/02/19 at 07:31; Status DC Albuterol/ Ipratropium (Duoneb) 3 ml Q4HRS NEB Last administered on 01/02/19at 11:30; Start 01/02/19 at 12:00 Furosemide (Lasix) 20 mg 1X ONCE IVP Last administered on 01/02/19at 07:36; Start 01/02/19 at 07:30; Stop 01/02/19 at 07:31; Status DC Sodium Chloride 90 meq/Potassium Chloride 30 meq/ Potassium Phosphate 13.6 mmol/ Magnesium Sulfate 15 meq/ Calcium Gluconate 5 meq/ Multivitamins 10 ml/Chromium / Copper/Manganese/ Seleni/Zn 1 ml/ Total Parenteral Nutrition/Amino Acids/ Dextrose/ Fat Emulsion Intravenous 1,512 ml @ 63 mls/hr TPN CONT IV ; Start at 22:00; Stop 01/03/19 at 21:59 Active Scripts Active Chlorhexidine Gluconate 473 Ml Mouthwash 473 Ml MM BID 7 Days Vitamin C (Ascorbate Calcium) 500 Mg Tablet 500 Mg PO DAILY 30 Days Slow Release Iron (Ferrous Sulfate) 250 Mg Tablet.er 250 Mg PO DAILY 30 Days Protonix (Pantoprazole Sodium) 40 Mg Grankofikt.dr 40 Mg PO DAILY 30 Days Reported Alprazolam 0.25 Mg Tablet 0.25 Mg PO DAILY Metformin Hcl Er (Metformin Hcl) 500 Mg Tab.er.24h 1 Tab PO DAILY Namenda (Memantine Hcl) 10 Mg Tablet 1 Tab PO BID Losartan Potassium 100 Mg Tablet 100 Mg PO DAILY Spironolactone 25 Mg Tablet 1 Tab PO DAILY Ventolin Hfa Inhaler (Albuterol Sulfate) 18 Gm Hfa.aer.ad 2 Puff INH Q4HRS Cymbalta (Duloxetine Hcl) 20 Mg Capsule.dr 90 Mg PO DAILY Requip (Ropinirole Hcl) 1 Mg Tablet 3 Mg PO DAILY Amlodipine Besylate 10 Mg Tablet 10 Mg PO DAILY Vitals/I & O Vital Sign - Last 24 Hours 01/01/19 01/01/19 01/01/1916/19 14:41 15:00 15:17 15:35 Temp 98.4 98.4 98.5 98.4 98.4 98.5 Pulse 88 88 88 Resp 22 22 20 B/P (MAP) 107/63 (78) 107/63 107/59 Pulse Ox 96 O2 Delivery Nasal Cannula Nasal Cannula O2 Flow Rate 3.0 3.0 01/01/19 01/01/19 01/01/19 01/01/19 15:37 16:35 17:35 19:00 Temp 98.2 98.9 98.5 98.2 98.9 98.5 Pulse 88 81 87 Resp 25 20 18 B/P (MAP) 107/59 112/61 134/65 (88) Pulse Ox 98 96 O2 Delivery Nasal Cannula Nasal Cannula O2 Flow Rate 3.0 3.0 01/01/19 01/01/19 01/01/19 01/01/19 20:00 20:59 21:35 23:00 Temp 98.2 98.2 Pulse 83 Resp 20 18 B/P (MAP) 105/62 (76) Pulse Ox 98 98 100 O2 Delivery Nasal Cannula Nasal Cannula Nasal Cannula Nasal Cannula O2 Flow Rate 3.0 3.0 3.0 2.0 01/01/19 01/02/19 01/02/19 01/02/19 23:43 02:20 02:50 03:00 Temp 97.6 97.6 Pulse 80 Resp 20 20 18 B/P (MAP) 95/52 (66) Pulse Ox 98 98 98 100 O2 Delivery Nasal Cannula Nasal Cannula Nasal Cannula O2 Flow Rate 3.0 3.0 3.0 01/02/19 01/02/19 01/02/19 01/02/19 04:03 06:53 07:00 07:10 Temp 97.9 97.9 Pulse 81 Resp 18 B/P (MAP) 117/70 (86) Pulse Ox 98 96 93 O2 Delivery Nasal Cannula Nasal Cannula Nasal Cannula Nasal Cannula O2 Flow Rate 3.0 3.0 3.0 3.0 01/02/19 01/02/19 01/02/19 01/02/19 08:19 11:00 11:31 12:06 Temp 97.3 97.3 Pulse 81 Resp 16 B/P (MAP) 114/71 (85) Pulse Ox 96 95 O2 Delivery Nasal Cannula Nasal Cannula Nasal Cannula Nasal Cannula O2 Flow Rate 3.0 3.0 3.0 3.0 01/02/19 13:04 O2 Delivery Nasal Cannula O2 Flow Rate 3.0 Intake and Output 01/01/19 01/01/19 01/02/19 15:00 23:00 07:00 Intake Total 0 ml 0 ml Output Total 1350 ml 1200 ml Balance 0 ml -1350 ml -1200 ml DAVID DORAN III DO Jan 02, 2019 13:17
[2019-01-02 15:00] VITALS: BP 118/68
[2019-01-02] MEDS: rOPINIRole 1 MG TABLET. PO SCH (19:11)
[2019-01-02 19:52] VITALS: BP 121/72
[2019-01-02] MEDS ORDERED: AMINO ACID IV SCH ×10 (22:00)
[2019-01-02] MEDS ORDERED: TOTAL PARENTERAL NUTRITION IV SCH ×10 (22:00)
[2019-01-02] MEDS ORDERED: [UNRECOGNIZED DRUG - OTHER] IV SCH ×10 (22:00)
[2019-01-02] MEDS ORDERED: DEXTROSE 70% IV SCH ×10 (22:00)
[2019-01-02 22:30] VITALS: BP 143/90
[2019-01-03] MEDS: MEROPENEM 500 MG in IV NORMAL SALINE 50ML 50 ML IV SCH ×5 (00:09→23:42)
[2019-01-03] MEDS: INSULIN LISPRO 300 UNITS/3 ML INSULN.PEN. SQ SCH ×4 (00:13→18:34)
[2019-01-03 03:16] VITALS: BP 131/82
[2019-01-03] MEDS: IPRATRPIUM/ALBUTEROL 0.5/2.5MG 3 ML NEBU. NEB SCH ×6 (03:21→23:26)
[2019-01-03] MEDS: HYDROmorphone 2 MG/ML VIAL IV PRN ×5 (03:29→23:42)
[2019-01-03] MEDS: PANTOPRAZOLE IV PUSH 40 MG VIAL. IVP SCH (06:04)
[2019-01-03 06:12] LABS: BASO # 0.2 x10^3/uL (0.0-0.2); BASO % 1 % (0-3); EOS # 0.2 x10^3/uL (0.0-0.7); EOS % 1 % (0-3); HEMATOCRIT 24.7 % (36.0-47.0); HEMOGLOBIN 7.8 g/dL (12.0-15.5); LYMPH # 0.8 x10^3/uL (1.0-4.8); LYMPH % 5 % (24-48); MEAN CORPUSCULAR HEMOGLOBIN 25 pg (25-35); MEAN CORPUSCULAR HGB CONC 32 g/dL (31-37); MEAN CORPUSCULAR VOLUME 78 fL (79-100); MONO % 6 % (0-9); NEUT # 15.2 x10^3uL (1.8-7.7); NEUT % 87 % (31-73); PLATELET COUNT 375 x10^3/uL (140-400); RED BLOOD COUNT 3.19 x10^6/uL (3.50-5.40); RED CELL DISTRIBUTION WIDTH 23.3 % (11.5-14.5); WHITE BLOOD COUNT 17.4 x10^3/uL (4.0-11.0)
[2019-01-03 06:26] LABS: ALBUMIN 1.9 g/dL (3.4-5.0); ALBUMIN/GLOBULIN RATIO 0.5 (1.0-1.7); CALCIUM 9.2 mg/dL (8.5-10.1); CREATININE 0.7 mg/dL (0.6-1.0); GFR 98.7; PHOSPHORUS 3.4 mg/dL (2.6-4.7); POTASSIUM 4.3 mmol/L (3.5-5.1); TOTAL BILIRUBIN 0.3 mg/dL (0.2-1.0); TOTAL PROTEIN 6.1 g/dL (6.4-8.2)
--- NOTE | 2019-01-03 06:33 | NUR ---
NGT off suction at 0600 per MD order.
[2019-01-03 07:21] VITALS: BP 141/85
[2019-01-03] MEDS: FERROUS SULFATE 325 MG TABLET. PO SCH (07:41)
[2019-01-03] MEDS: SPIRONOLACTONE 25 MG TABLET PO SCH (07:41)
[2019-01-03] MEDS: ASCORBIC ACID 500 MG TABLET PO SCH (07:42)
[2019-01-03] MEDS: DOCUSATE SODIUM 100 MG CAPSULE. PO SCH (07:42)
[2019-01-03] MEDS: amLODIPine BESYLATE 10 MG TABLET PO SCH (07:42)
[2019-01-03] MEDS: MEMANTINE 10 MG TABLET. PO SCH ×2 (07:42→21:00)
[2019-01-03] MEDS: DULoxetine HCL 30 MG CAPSULE.DR PO SCH (07:42)
[2019-01-03] MEDS: LOSARTAN POTASSIUM 50 MG TABLET. PO SCH (07:42)
--- NOTE | 2019-01-03 08:18 | PDOC ---
SURGICAL PROGRESS NOTE Subjective Doing much better, passing flatus Vital Signs Vital Signs Date Time Temp Pulse Resp B/P (MAP) Pulse Ox O2 Delivery O2 Flow Rate FiO2 01/03/19 07:42 80 141/85 01/03/19 07:25 94 Nasal Cannula 3.0 01/03/19 07:21 98.0 20 98.0 I&O Intake and Output 01/03/19 06:59 Intake Total 0 ml Output Total 2200 ml Balance -2200 ml Intake Oral 0 ml Output Urine Total 1700 ml Gastric Drainage Total 500 ml PATIENT HAS A PILLAI: Yes General: Alert, Oriented X3, Cooperative, mild distress Abdomen: Normal bowel sounds, Soft, No tenderness, Other (NGT with mininmal output) Labs Laboratory Tests Test 01/01/19 09:20 01/01/19 11:58 01/01/19 18:18 01/01/19 23:14 Lactic Acid Level 1.0 mmol/L (0.4-2.0) Glucose (Fingerstick) 263 mg/dL (70-99) 270 mg/dL (70-99) 271 mg/dL (70-99) Test 01/02/19 05:00 01/02/19 05:07 01/02/19 12:10 01/02/19 18:07 White Blood Count 20.5 x10^3/uL (4.0-11.0) Red Blood Count 3.11 x10^6/uL (3.50-5.40) Hemoglobin 7.5 g/dL (12.0-15.5) Hematocrit 24.4 % (36.0-47.0) Mean Corpuscular Volume 78 fL (79-100) Mean Corpuscular Hemoglobin 24 pg (25-35) Mean Corpuscular Hemoglobin Concent 31 g/dL (31-37) Red Cell Distribution Width 23.1 % (11.5-14.5) Platelet Count 364 x10^3/uL (140-400) Neutrophils (%) (Auto) 89 % (31-73) Lymphocytes (%) (Auto) 4 % (24-48) Monocytes (%) (Auto) 5 % (0-9) Eosinophils (%) (Auto) 1 % (0-3) Basophils (%) (Auto) 0 % (0-3) Neutrophils # (Auto) 18.2 x10^3uL (1.8-7.7) Lymphocytes # (Auto) 0.9 x10^3/uL (1.0-4.8) Monocytes # (Auto) 1.1 x10^3/uL (0.0-1.1) Eosinophils # (Auto) 0.2 x10^3/uL (0.0-0.7) Basophils # (Auto) 0.1 x10^3/uL (0.0-0.2) Glucose (Fingerstick) 262 mg/dL (70-99) 333 mg/dL (70-99) 327 mg/dL (70-99) Test 01/03/19 00:04 01/03/19 05:50 01/03/19 05:51 Glucose (Fingerstick) 248 mg/dL (70-99) 297 mg/dL (70-99) White Blood Count 17.4 x10^3/uL (4.0-11.0) Red Blood Count 3.19 x10^6/uL (3.50-5.40) Hemoglobin 7.8 g/dL (12.0-15.5) Hematocrit 24.7 % (36.0-47.0) Mean Corpuscular Volume 78 fL (79-100) Mean Corpuscular Hemoglobin 25 pg (25-35) Mean Corpuscular Hemoglobin Concent 32 g/dL (31-37) Red Cell Distribution Width 23.3 % (11.5-14.5) Platelet Count 375 x10^3/uL (140-400) Neutrophils (%) (Auto) 87 % (31-73) Lymphocytes (%) (Auto) 5 % (24-48) Monocytes (%) (Auto) 6 % (0-9) Eosinophils (%) (Auto) 1 % (0-3) Basophils (%) (Auto) 1 % (0-3) Neutrophils # (Auto) 15.2 x10^3uL (1.8-7.7) Lymphocytes # (Auto) 0.8 x10^3/uL (1.0-4.8) Monocytes # (Auto) 1.0 x10^3/uL (0.0-1.1) Eosinophils # (Auto) 0.2 x10^3/uL (0.0-0.7) Basophils # (Auto) 0.2 x10^3/uL (0.0-0.2) Sodium Level 144 mmol/L (136-145) Potassium Level 4.3 mmol/L (3.5-5.1) Chloride Level 106 mmol/L (98-107) Carbon Dioxide Level 32 mmol/L (21-32) Anion Gap 6 (6-14) Blood Urea Nitrogen 25 mg/dL (7-20) Creatinine 0.7 mg/dL (0.6-1.0) Estimated GFR (Cockcroft-Gault) 98.7 BUN/Creatinine Ratio 36 (6-20) Glucose Level 387 mg/dL (70-99) Calcium Level 9.2 mg/dL (8.5-10.1) Phosphorus Level 3.4 mg/dL (2.6-4.7) Magnesium Level 2.0 mg/dL (1.8-2.4) Total Bilirubin 0.3 mg/dL (0.2-1.0) Aspartate Amino Transf (AST/SGOT) 35 U/L (15-37) Alanine Aminotransferase (ALT/SGPT) 44 U/L (14-59) Alkaline Phosphatase 95 U/L (46-116) Total Protein 6.1 g/dL (6.4-8.2) Albumin 1.9 g/dL (3.4-5.0) Albumin/Globulin Ratio 0.5 (1.0-1.7) Laboratory Tests Test 01/02/19 12:10 01/02/19 18:07 01/03/19 00:04 01/03/19 05:50 Glucose (Fingerstick) 333 mg/dL (70-99) 327 mg/dL (70-99) 248 mg/dL (70-99) White Blood Count 17.4 x10^3/uL (4.0-11.0) Red Blood Count 3.19 x10^6/uL (3.50-5.40) Hemoglobin 7.8 g/dL (12.0-15.5) Hematocrit 24.7 % (36.0-47.0) Mean Corpuscular Volume 78 fL (79-100) Mean Corpuscular Hemoglobin 25 pg (25-35) Mean Corpuscular Hemoglobin Concent 32 g/dL (31-37) Red Cell Distribution Width 23.3 % (11.5-14.5) Platelet Count 375 x10^3/uL (140-400) Neutrophils (%) (Auto) 87 % (31-73) Lymphocytes (%) (Auto) 5 % (24-48) Monocytes (%) (Auto) 6 % (0-9) Eosinophils (%) (Auto) 1 % (0-3) Basophils (%) (Auto) 1 % (0-3) Neutrophils # (Auto) 15.2 x10^3uL (1.8-7.7) Lymphocytes # (Auto) 0.8 x10^3/uL (1.0-4.8) Monocytes # (Auto) 1.0 x10^3/uL (0.0-1.1) Eosinophils # (Auto) 0.2 x10^3/uL (0.0-0.7) Basophils # (Auto) 0.2 x10^3/uL (0.0-0.2) Sodium Level 144 mmol/L (136-145) Potassium Level 4.3 mmol/L (3.5-5.1) Chloride Level 106 mmol/L (98-107) Carbon Dioxide Level 32 mmol/L (21-32) Anion Gap 6 (6-14) Blood Urea Nitrogen 25 mg/dL (7-20) Creatinine 0.7 mg/dL (0.6-1.0) Estimated GFR (Cockcroft-Gault) 98.7 BUN/Creatinine Ratio 36 (6-20) Glucose Level 387 mg/dL (70-99) Calcium Level 9.2 mg/dL (8.5-10.1) Phosphorus Level 3.4 mg/dL (2.6-4.7) Magnesium Level 2.0 mg/dL (1.8-2.4) Total Bilirubin 0.3 mg/dL (0.2-1.0) Aspartate Amino Transf (AST/SGOT) 35 U/L (15-37) Alanine Aminotransferase (ALT/SGPT) 44 U/L (14-59) Alkaline Phosphatase 95 U/L (46-116) Total Protein 6.1 g/dL (6.4-8.2) Albumin 1.9 g/dL (3.4-5.0) Albumin/Globulin Ratio 0.5 (1.0-1.7) Test 01/03/19 05:51 Glucose (Fingerstick) 297 mg/dL (70-99) Assessment/Plan S/P Right colon resection and sbo Improving, NGT clamped if tolerated will remove in AM DAYLIN WEI MD Jan 03, 2019 08:18
[2019-01-03] MEDS: CHLORHEXIDINE 0.12% 15 ML MOUTHWASH. MM SCH ×2 (08:33→21:36)
[2019-01-03] MEDS: ENOXAPARIN 40 MG/0.4 ML SYRINGE. SQ SCH (08:33)
[2019-01-03] MEDS: VANCOMYCIN PER PHARMACY MC PRN (10:18)
--- NOTE | 2019-01-03 10:50 | PDOC ---
PROGRESS NOTES Chief Complaint Chief Complaint CC: Anemia, colonic Avms Acute hypoxic respiratory failure Cecal ulceration - s/p rt colon resection and hemorrhoidectomy 12/17 SBO - s/p ex lap, extended rt hemicolectomy POD3 VISHNU COPD Sepsis/Leukopenia - meropenem and vanco, ID following History of Present Illness History of Present Illness Pt is a 73 y/o female who is s/p rt colon resection and hemorrhoidectomy on and s/p ex lap, extended rt hemicolectomy POD3. Today she was seen and examined in her room. She is awake and up in her chair. She is looking much improved today. Breathing better. States she has no new complaints. I discussed the pt with her son and her RN. Vitals Vitals Vital Signs Date Time Temp Pulse Resp B/P (MAP) Pulse Ox O2 Delivery O2 Flow Rate FiO2 01/03/19 09:03 Nasal Cannula 2.5 01/03/19 07:42 80 141/85 01/03/19 07:25 94 01/03/19 07:21 98.0 20 98.0 Physical Exam Physical Exam GENERAL: Sitting in the chair, legs elevated, alert, relaxed appearance, more conversant and joking HEENT: Oral cavity pink, dry. + NGT NECK: Supple LUNGS: Diminished aeration bases HEART: S1, S2 ABDOMEN: Distended, soft, BS quiet. dressing dry. : Freeman EXTREMITIES: LLE 1+ edema. no cyanosis SKIN: No rash. Rectal wound. NEUROLOGIC: Alert, responding appropriately RUE-PICC (12/23) clean General: Alert, Oriented X3, Cooperative, mild distress Heart: Regular rate, No murmurs Lungs: Wheezing, Crackles Abdomen: Normal bowel sounds, Soft, No tenderness, Other (NGT with mininmal output) Extremities: No clubbing, No cyanosis, No edema Skin: No breakdown, No significant lesion Labs LABS Laboratory Tests Test 01/02/19 12:10 01/02/19 18:07 01/03/19 00:04 01/03/19 05:50 Glucose (Fingerstick) 333 mg/dL (70-99) 327 mg/dL (70-99) 248 mg/dL (70-99) White Blood Count 17.4 x10^3/uL (4.0-11.0) Red Blood Count 3.19 x10^6/uL (3.50-5.40) Hemoglobin 7.8 g/dL (12.0-15.5) Hematocrit 24.7 % (36.0-47.0) Mean Corpuscular Volume 78 fL (79-100) Mean Corpuscular Hemoglobin 25 pg (25-35) Mean Corpuscular Hemoglobin Concent 32 g/dL (31-37) Red Cell Distribution Width 23.3 % (11.5-14.5) Platelet Count 375 x10^3/uL (140-400) Neutrophils (%) (Auto) 87 % (31-73) Lymphocytes (%) (Auto) 5 % (24-48) Monocytes (%) (Auto) 6 % (0-9) Eosinophils (%) (Auto) 1 % (0-3) Basophils (%) (Auto) 1 % (0-3) Neutrophils # (Auto) 15.2 x10^3uL (1.8-7.7) Lymphocytes # (Auto) 0.8 x10^3/uL (1.0-4.8) Monocytes # (Auto) 1.0 x10^3/uL (0.0-1.1) Eosinophils # (Auto) 0.2 x10^3/uL (0.0-0.7) Basophils # (Auto) 0.2 x10^3/uL (0.0-0.2) Sodium Level 144 mmol/L (136-145) Potassium Level 4.3 mmol/L (3.5-5.1) Chloride Level 106 mmol/L (98-107) Carbon Dioxide Level 32 mmol/L (21-32) Anion Gap 6 (6-14) Blood Urea Nitrogen 25 mg/dL (7-20) Creatinine 0.7 mg/dL (0.6-1.0) Estimated GFR (Cockcroft-Gault) 98.7 BUN/Creatinine Ratio 36 (6-20) Glucose Level 387 mg/dL (70-99) Calcium Level 9.2 mg/dL (8.5-10.1) Phosphorus Level 3.4 mg/dL (2.6-4.7) Magnesium Level 2.0 mg/dL (1.8-2.4) Total Bilirubin 0.3 mg/dL (0.2-1.0) Aspartate Amino Transf (AST/SGOT) 35 U/L (15-37) Alanine Aminotransferase (ALT/SGPT) 44 U/L (14-59) Alkaline Phosphatase 95 U/L (46-116) Total Protein 6.1 g/dL (6.4-8.2) Albumin 1.9 g/dL (3.4-5.0) Albumin/Globulin Ratio 0.5 (1.0-1.7) Test 01/03/19 05:51 Glucose (Fingerstick) 297 mg/dL (70-99) Comment Review of Relevant I have reviewed the following items abdifatah (where applicable) has been applied. Labs Laboratory Tests Test 01/01/19 11:58 01/01/19 18:18 01/01/19 23:14 01/02/19 05:00 Glucose (Fingerstick) 263 mg/dL (70-99) 270 mg/dL (70-99) 271 mg/dL (70-99) White Blood Count 20.5 x10^3/uL (4.0-11.0) Red Blood Count 3.11 x10^6/uL (3.50-5.40) Hemoglobin 7.5 g/dL (12.0-15.5) Hematocrit 24.4 % (36.0-47.0) Mean Corpuscular Volume 78 fL (79-100) Mean Corpuscular Hemoglobin 24 pg (25-35) Mean Corpuscular Hemoglobin Concent 31 g/dL (31-37) Red Cell Distribution Width 23.1 % (11.5-14.5) Platelet Count 364 x10^3/uL (140-400) Neutrophils (%) (Auto) 89 % (31-73) Lymphocytes (%) (Auto) 4 % (24-48) Monocytes (%) (Auto) 5 % (0-9) Eosinophils (%) (Auto) 1 % (0-3) Basophils (%) (Auto) 0 % (0-3) Neutrophils # (Auto) 18.2 x10^3uL (1.8-7.7) Lymphocytes # (Auto) 0.9 x10^3/uL (1.0-4.8) Monocytes # (Auto) 1.1 x10^3/uL (0.0-1.1) Eosinophils # (Auto) 0.2 x10^3/uL (0.0-0.7) Basophils # (Auto) 0.1 x10^3/uL (0.0-0.2) Test 01/02/19 05:07 01/02/19 12:10 01/02/19 18:07 01/03/19 00:04 Glucose (Fingerstick) 262 mg/dL (70-99) 333 mg/dL (70-99) 327 mg/dL (70-99) 248 mg/dL (70-99) Test 01/03/19 05:50 01/03/19 05:51 White Blood Count 17.4 x10^3/uL (4.0-11.0) Red Blood Count 3.19 x10^6/uL (3.50-5.40) Hemoglobin 7.8 g/dL (12.0-15.5) Hematocrit 24.7 % (36.0-47.0) Mean Corpuscular Volume 78 fL (79-100) Mean Corpuscular Hemoglobin 25 pg (25-35) Mean Corpuscular Hemoglobin Concent 32 g/dL (31-37) Red Cell Distribution Width 23.3 % (11.5-14.5) Platelet Count 375 x10^3/uL (140-400) Neutrophils (%) (Auto) 87 % (31-73) Lymphocytes (%) (Auto) 5 % (24-48) Monocytes (%) (Auto) 6 % (0-9) Eosinophils (%) (Auto) 1 % (0-3) Basophils (%) (Auto) 1 % (0-3) Neutrophils # (Auto) 15.2 x10^3uL (1.8-7.7) Lymphocytes # (Auto) 0.8 x10^3/uL (1.0-4.8) Monocytes # (Auto) 1.0 x10^3/uL (0.0-1.1) Eosinophils # (Auto) 0.2 x10^3/uL (0.0-0.7) Basophils # (Auto) 0.2 x10^3/uL (0.0-0.2) Sodium Level 144 mmol/L (136-145) Potassium Level 4.3 mmol/L (3.5-5.1) Chloride Level 106 mmol/L (98-107) Carbon Dioxide Level 32 mmol/L (21-32) Anion Gap 6 (6-14) Blood Urea Nitrogen 25 mg/dL (7-20) Creatinine 0.7 mg/dL (0.6-1.0) Estimated GFR (Cockcroft-Gault) 98.7 BUN/Creatinine Ratio 36 (6-20) Glucose Level 387 mg/dL (70-99) Calcium Level 9.2 mg/dL (8.5-10.1) Phosphorus Level 3.4 mg/dL (2.6-4.7) Magnesium Level 2.0 mg/dL (1.8-2.4) Total Bilirubin 0.3 mg/dL (0.2-1.0) Aspartate Amino Transf (AST/SGOT) 35 U/L (15-37) Alanine Aminotransferase (ALT/SGPT) 44 U/L (14-59) Alkaline Phosphatase 95 U/L (46-116) Total Protein 6.1 g/dL (6.4-8.2) Albumin 1.9 g/dL (3.4-5.0) Albumin/Globulin Ratio 0.5 (1.0-1.7) Glucose (Fingerstick) 297 mg/dL (70-99) Laboratory Tests Test 01/02/19 12:10 01/02/19 18:07 01/03/19 00:04 01/03/19 05:50 Glucose (Fingerstick) 333 mg/dL (70-99) 327 mg/dL (70-99) 248 mg/dL (70-99) White Blood Count 17.4 x10^3/uL (4.0-11.0) Red Blood Count 3.19 x10^6/uL (3.50-5.40) Hemoglobin 7.8 g/dL (12.0-15.5) Hematocrit 24.7 % (36.0-47.0) Mean Corpuscular Volume 78 fL (79-100) Mean Corpuscular Hemoglobin 25 pg (25-35) Mean Corpuscular Hemoglobin Concent 32 g/dL (31-37) Red Cell Distribution Width 23.3 % (11.5-14.5) Platelet Count 375 x10^3/uL (140-400) Neutrophils (%) (Auto) 87 % (31-73) Lymphocytes (%) (Auto) 5 % (24-48) Monocytes (%) (Auto) 6 % (0-9) Eosinophils (%) (Auto) 1 % (0-3) Basophils (%) (Auto) 1 % (0-3) Neutrophils # (Auto) 15.2 x10^3uL (1.8-7.7) Lymphocytes # (Auto) 0.8 x10^3/uL (1.0-4.8) Monocytes # (Auto) 1.0 x10^3/uL (0.0-1.1) Eosinophils # (Auto) 0.2 x10^3/uL (0.0-0.7) Basophils # (Auto) 0.2 x10^3/uL (0.0-0.2) Sodium Level 144 mmol/L (136-145) Potassium Level 4.3 mmol/L (3.5-5.1) Chloride Level 106 mmol/L (98-107) Carbon Dioxide Level 32 mmol/L (21-32) Anion Gap 6 (6-14) Blood Urea Nitrogen 25 mg/dL (7-20) Creatinine 0.7 mg/dL (0.6-1.0) Estimated GFR (Cockcroft-Gault) 98.7 BUN/Creatinine Ratio 36 (6-20) Glucose Level 387 mg/dL (70-99) Calcium Level 9.2 mg/dL (8.5-10.1) Phosphorus Level 3.4 mg/dL (2.6-4.7) Magnesium Level 2.0 mg/dL (1.8-2.4) Total Bilirubin 0.3 mg/dL (0.2-1.0) Aspartate Amino Transf (AST/SGOT) 35 U/L (15-37) Alanine Aminotransferase (ALT/SGPT) 44 U/L (14-59) Alkaline Phosphatase 95 U/L (46-116) Total Protein 6.1 g/dL (6.4-8.2) Albumin 1.9 g/dL (3.4-5.0) Albumin/Globulin Ratio 0.5 (1.0-1.7) Test 01/03/19 05:51 Glucose (Fingerstick) 297 mg/dL (70-99) Microbiology 01/01/19 Blood Culture - Preliminary, Resulted NO GROWTH AFTER 2 DAYS 12/25/18 - Final, Complete 12/25/18 - Final, Complete 12/25/18 - Final, Complete 12/25/18 - Final, Complete 12/25/18 Gram Stain Evaluation - Final, Complete 12/25/18 Sputum Culture - Final, Complete 12/25/18 Sputum Result 1 - Final, Complete Medications Current Medications Sodium Chloride 1,000 ml @ 1,000 mls/hr 1X ONCE IV Last administered on 13:52; Start 12/14/18 at 13:30; Stop 12/14/18 at 14:29; Status DC Amlodipine Besylate (Norvasc) 10 mg DAILY PO Last administered on 12/26/18 10: 01; Start 12/14/18 at 17:00 Chlorhexidine Gluconate (Peridex) 15 ml BID MM Last administered on 01/03/19 08:33; Start 12/14/18 at 21:00 Non-Formulary Medication (Albuterol Sulfate (Ventolin Hfa Inhaler)) 2 puff Q4HRS INH ; Start 12/14/18 at 20:00; Status UNV Ascorbic Acid (Vitamin C) 500 mg DAILY PO Last administered on 12/22/18 10:30; Start 12/14/18 at 17:00 Duloxetine HCl (Cymbalta) 90 mg DAILY PO Last administered on 12/22/18 10:30; Start 12/14/18 at 17:00 Ferrous Sulfate (Feosol) 325 mg DAILYWBKFT PO Last administered on 12/22/18 10: 30; Start 12/14/18 at 17:00 Losartan Potassium (Cozaar) 100 mg DAILY PO Last administered on 12/22/18 10:29 ; Start 12/14/18 at 17:00 Memantine (Namenda) 10 mg BID PO Last administered on 12/26/18 21:25; Start at 21:00 Pantoprazole Sodium (Protonix) 40 mg DAILYAC PO Last administered on 12/22/18 05:28; Start 12/14/18 at 17:00; Stop 12/24/18 at 09:25; Status DC Ropinirole HCl (Requip) 3 mg QHS PO Last administered on 12/26/18 21:25; Start 12/14/18 at 21:00 Spironolactone (Aldactone) 25 mg DAILY PO Last administered on 2/10/19at 10:42 ; Start 12/14/18 at 17:00 Albuterol Sulfate (Ventolin Neb Soln) 2.5 mg Q4HRS NEB Last administered on at 06:52; Start 12/14/18 at 20:00; Stop 01/02/19 at 07:24; Status DC Sodium Chloride 1,000 ml @ 80 mls/hr [id number] IV Last administered on 12/23/18at 15:25; Start 12/14/18 at 17:15; Stop 12/23/18 at 21:59; Status DC Acetaminophen (Tylenol) 650 mg PRN Q6HRS PRN PO Pain Last administered on at 21:27; Start 12/15/18 at 04:45; Stop 12/26/18 at 21:07; Status DC Polyethylene Glycol (miraLAX Powder BULK BOTTLE) 238 gm 1X ONCE PO Last administered on 12/15/18at 12:48; Start 12/15/18 at 12:00; Stop 12/15/18 at 12:01 ; Status DC Ondansetron HCl (Zofran) 4 mg PRN Q6HRS PRN IV NAUSEA/VOMITING; Start 12/16/18 at 07:00; Stop 12/17/18 at 06:59; Status DC Fentanyl Citrate (Fentanyl 2ml Vial) 25 mcg PRN Q5MIN PRN IV MILD PAIN; Start 12/16/18 at 07:00; Stop 12/16/18 at 16:33; Status DC Fentanyl Citrate (Fentanyl 2ml Vial) 50 mcg PRN Q5MIN PRN IV MODERATE TO SEVERE PAIN; Start 12/16/18 at 07:00; Stop 12/16/18 at 16:33; Status DC Morphine Sulfate (Morphine Sulfate) 1 mg PRN Q10MIN PRN IV SEVERE PAIN; Start 12/16/18 at 07:00; Stop 12/17/18 at 06:59; Status DC Ringer's Solution 1,000 ml @ 30 mls/hr Q24H IV Last administered on 12/16/18at 13:00; Start 12/16/18 at 07:00; Stop 12/16/18 at 18:59; Status DC Lidocaine HCl (Xylocaine-Mpf 1% 2ml Vial) 2 ml PRN 1X PRN ID IV START; Start at 07:00; Stop 12/17/18 at 06:59; Status DC Hydromorphone HCl (Dilaudid) 0.5 mg PRN Q10MIN PRN IV SEV PAIN, Second choice; Start 12/16/18 at 07:00; Stop 12/17/18 at 06:59; Status DC Prochlorperazine Edisylate (Compazine) 5 mg PACU PRN PRN IV NAUSEA, MRX1; Start 12/16/18 at 07:00; Stop 12/17/18 at 06:59; Status DC Midazolam HCl (Versed) 2 mg PRN 1X PRN IV PRIOR TO PROCEDURE; Start 12/16/18 at 07:15; Stop 12/17/18 at 07:14; Status DC Fentanyl Citrate (Fentanyl 2ml Vial) 25 mcg PRN Q5MIN PRN IV X 2 DOSES FOR PAIN ; Start 12/16/18 at 07:15; Stop 12/16/18 at 16:33; Status DC Fentanyl Citrate (Fentanyl 2ml Vial) 50 mcg PRN Q5MIN PRN IV X 2 DOSES FOR PAIN ; Start 12/16/18 at 07:15; Stop 12/16/18 at 16:34; Status DC Ringer's Solution 1,000 ml @ 125 mls/hr Q8H IV ; Start 12/16/18 at 07:13; Stop 12/16/18 at 19:12; Status DC Lidocaine HCl (Xylocaine-Mpf 1% 2ml Vial) 2 ml 1X PRN PRN ID IV START; Start at 07:15; Stop 12/17/18 at 07:14; Status DC Propofol 40 ml @ As Directed STK-MED ONCE IV ; Start 12/16/18 at 13:58; Stop at 14:00; Status DC Prochlorperazine Edisylate (Compazine) 5 mg PACU PRN PRN IV NAUSEA, MRX1; Start 12/17/18 at 07:00; Stop 12/18/18 at 06:59; Status DC Hydromorphone HCl (Dilaudid) 0.5 mg PRN Q10MIN PRN IV SEV PAIN, Second choice; Start 12/17/18 at 07:00; Stop 12/18/18 at 06:59; Status DC Lidocaine HCl (Xylocaine-Mpf 1% 2ml Vial) 2 ml PRN 1X PRN ID IV START; Start at 07:00; Stop 12/18/18 at 06:59; Status DC Ringer's Solution 1,000 ml @ 30 mls/hr Q24H IV Last administered on 12/17/18at 10:34; Start 12/17/18 at 07:00; Stop 12/17/18 at 18:59; Status DC Morphine Sulfate (Morphine Sulfate) 1 mg PRN Q10MIN PRN IV SEVERE PAIN; Start 12/17/18 at 07:00; Stop 12/18/18 at 06:59; Status DC Fentanyl Citrate (Fentanyl 2ml Vial) 50 mcg PRN Q5MIN PRN IV MODERATE TO SEVERE PAIN Last administered on 12/17/18at 11:13; Start 12/17/18 at 07:00; Stop at 06:59; Status DC Fentanyl Citrate (Fentanyl 2ml Vial) 25 mcg PRN Q5MIN PRN IV MILD PAIN; Start 12/17/18 at 07:00; Stop 12/18/18 at 06:59; Status DC Ondansetron HCl (Zofran) 4 mg PRN Q6HRS PRN IV NAUSEA/VOMITING; Start 12/17/18 at 07:00; Stop 12/18/18 at 06:59; Status DC Propofol 20 ml @ As Directed STK-MED ONCE IV ; Start 12/17/18 at 07:21; Stop 12/17 at 07:23; Status DC Albuterol Sulfate (Ventolin Neb Soln) 2.5 mg 1X ONCE NEB ; Start 12/17/18 at 07: 30; Stop 12/17/18 at 07:31; Status DC Lidocaine HCl (Lidocaine Pf 2% Vial) 5 ml STK-MED ONCE .ROUTE ; Start 12/17/18 at 07:21; Stop 12/17/18 at 07:23; Status DC Succinylcholine Chloride (Anectine) 200 mg STK-MED ONCE .ROUTE ; Start 12/17/18 at 07:21; Stop 12/17/18 at 07:23; Status DC Rocuronium [place] (Zemuron) 50 mg STK-MED ONCE .ROUTE ; Start 12/17/18 at 07:21 ; Stop 12/17/18 at 07:23; Status DC Fentanyl Citrate (Fentanyl 2ml Vial) 100 mcg STK-MED ONCE .ROUTE ; Start at 07:21; Stop 12/17/18 at 07:24; Status DC Cefazolin Sodium/ Dextrose 50 ml @ 100 mls/hr 1X ONCE IV Last administered on 12/17/18at 08:07; Start 12/17/18 at 07:45; Stop 12/17/18 at 08:18; Status DC Bupivacaine HCl/ Epinephrine Bitart (Sensorcain-Mpf Epi 0.5%-1:[id number]) 30 ml STK -MED ONCE .ROUTE Last administered on 12/17/18at 08:34; Start 12/17/18 at 07:46; Stop 12/17/18 at 07:49; Status DC Neomycin/ Polymyxin/ Bacitracin (Triple Antibiotic Ointment) 1 pkt STK-MED ONCE TP Last administered on 12/17/18at 10:07; Start 12/17/18 at 07:46; Stop 12/17/18 at 07:49; Status DC Neomycin/ Polymyxin/ Bacitracin (Triple Antibiotic Ointment) 1 pkt STK-MED ONCE TP Last administered on 12/17/18at 10:07; Start 12/17/18 at 07:46; Stop 12/17/18 at 07:49; Status DC Neomycin/ Polymyxin/ Bacitracin (Triple Antibiotic Ointment) 1 pkt STK-MED ONCE TP ; Start 12/17/18 at 07:47; Stop 12/17/18 at 07:49; Status DC Dexamethasone Sodium Phosphate (Decadron) 20 mg STK-MED ONCE .ROUTE ; Start 12/17 at 07:54; Stop 12/17/18 at 07:56; Status DC Hydrocortisone Sodium Succinate (Solu-CORTEF) 100 mg STK-MED ONCE .ROUTE ; Start 12/17/18 at 07:54; Stop 12/17/18 at 07:56; Status DC Desflurane (Suprane) 90 ml STK-MED ONCE IH ; Start 12/17/18 at 07:54; Stop at 07:56; Status DC Neostigmine Methylsulfate (Bloxiverz) 10 mg STK-MED ONCE .ROUTE ; Start 12/17/18 at 08:21; Stop 12/17/18 at 08:24; Status DC Glycopyrrolate (Robinul) 1 mg STK-MED ONCE .ROUTE ; Start 12/17/18 at 08:21; Stop 12/17/18 at 08:24; Status DC Phenylephrine HCl (Bogdan-Synephrine Inj) 10 mg STK-MED ONCE .ROUTE ; Start at 08:23; Stop 12/17/18 at 08:26; Status DC Desflurane (Suprane) 60 ml STK-MED ONCE IH ; Start 12/17/18 at 09:23; Stop at 09:26; Status DC Bupivacaine HCl/ Epinephrine Bitart (Sensorcain-Mpf Epi 0.5%-1:[id number]) 30 ml STK -MED ONCE .ROUTE Last administered on 12/17/18at 10:06; Start 12/17/18 at 09:41; Stop 12/17/18 at 09:43; Status DC Morphine Sulfate (Morphine Sulfate) 2 mg PRN Q2HR PRN IV PAIN Last administered on 12/25/18at 09:26; Start 12/17/18 at 10:15; Stop 12/25/18 at 17:54; Status DC Ketorolac Tromethamine (Toradol 15mg Vial) 15 mg Q6HRS IV Last administered on 12/18/18 05:39; Start 12/17/18 at 12:00; Stop 12/18/18 at 10:00; Status DC Artificial Tears (Artificial Tears) 1 drop PRN Q15MIN PRN OU DRY EYE Last administered on 12/20/18at 21:28; Start 12/18/18 at 08:00 Docusate Sodium (Colace) 100 mg DAILY PO Last administered on 12/26/18 10:01; Start 12/18/18 at 10:00 Throat Lozenges (Cepacol Sore Throat Lozenge) 1 kristyn PRN Q2HRS PRN PO SORE THROAT Last administered on 12/26/18 10:01; Start 12/18/18 at 14:00 Enoxaparin Sodium (Lovenox 40mg Syringe) 40 mg Q24H SQ Last administered on at 08:33; Start 12/19/18 at 09:00 Ondansetron HCl (Zofran) 4 mg PRN Q6HRS PRN IV NAUSEA/VOMITING Last administered on 01/01/19 14:46; Start 12/19/18 at 11:30 Insulin Human Lispro (HumaLOG) 0-5 UNITS TIDWMEALS SQ Last administered on 12/30 18:23; Start 12/19/18 at 17:00; Stop 12/31/18 at 00:05; Status DC Dextrose (Dextrose 50%-Water Syringe) 12.5 gm PRN Q15MIN PRN IV SEE COMMENTS; Start 12/19/18 at 16:45 Levofloxacin/ Dextrose 100 ml @ 100 mls/hr 1X ONCE IV Last administered on 20:56; Start 12/19/18 at 21:00; Stop 12/19/18 at 21:59; Status DC Cefepime HCl (Maxipime) 2 gm Q12HR IVP Last administered on 12/29/18 10:02; Start 12/21/18 at 10:00; Stop 12/29/18 at 10:37; Status DC Sodium Chloride 1,000 ml @ 125 mls/hr 1X ONCE IV Last administered on 10:43; Start 12/21/18 at 09:45; Stop 12/21/18 at 17:44; Status DC Calcium Carbonate/ Glycine (Tums) 500 mg PRN AFTMEALHC PRN PO INDIGESTION Last administered on 12/21/18 13:10; Start 12/21/18 at 12:15 Lorazepam (Ativan) 1 mg 1X ONCE IV Last administered on 12/21/18 17:50; Start 12/21/18 at 17:30; Stop 12/21/18 at 17:31; Status DC Albuterol Sulfate (Ventolin Neb Soln) 2.5 mg PRN Q2HRS PRN NEB SHORTNESS OF BREATH Last administered on 12/26/18 10:26; Start 12/21/18 at 17:30 Nicotine (Nicoderm Cq 14mg) 1 patch PRN DAILY PRN TD SMOKING CESSATION Last administered on 12/26/18 09:59; Start 12/21/18 at 19:30 Lorazepam (Ativan) 1 mg 1X ONCE IV Last administered on 12/21/18 23:45; Start 12/21/18 at 23:45; Stop 12/21/18 at 23:46; Status DC Lorazepam (Ativan) 1 mg PRN Q4HRS PRN IV ANXIETY / AGITATION Last administered on 12/22/18at 11:15; Start 12/21/18 at 23:30; Stop 12/22/18 at 14:42; Status DC Sodium Chloride 1,000 ml @ 250 mls/hr 1X ONCE IV Last administered on at 09:15; Start 12/22/18 at 09:15; Stop 12/22/18 at 13:14; Status DC Lidocaine/Sodium Bicarbonate (Buffered Lidocaine 1%) 3 ml STK-MED ONCE .ROUTE ; Start 12/23/18 at 10:33; Stop 12/23/18 at 10:35; Status DC Lidocaine/Sodium Bicarbonate (Buffered Lidocaine 1%) 3 ml 1X ONCE INJ Last administered on 12/23/18at 11:24; Start 12/23/18 at 11:00; Stop 12/23/18 at 11:10; Status DC Info (Tpn Per Pharmacy) 1 each PRN DAILY PRN MC SEE COMMENTS Last administered on 01/02/19at 12:09; Start 12/23/18 at 14:00 Sodium Chloride 90 meq/Potassium Chloride 50 meq/ Potassium Phosphate 20.4 mmol/ Magnesium Sulfate 18 meq/ Calcium Gluconate 5 meq/ Multivitamins 10 ml/Chromium / Copper/Manganese/ Seleni/Zn 1 ml/ Total Parenteral Nutrition/Amino Acids/ Dextrose/ Fat Emulsion Intravenous 1,512 ml @ 63 mls/hr TPN CONT IV Last administered on 12/23/18at 21:37; Start 12/23/18 at 22:00; Stop 12/24/18 at 21:59; Status DC Alprazolam (Xanax) 0.25 mg PRN BID PRN PO ANXIETY / AGITATION Last administered on 12/25/18at 09:25; Start 12/23/18 at 23:00; Stop 12/25/18 at 17:54; Status DC Lorazepam (Ativan) 1 mg PRN Q4HRS PRN IV ANXIETY / AGITATION Last administered on 12/24/18at 09:21; Start 12/24/18 at 08:45; Stop 12/24/18 at 10:19; Status DC Pantoprazole Sodium (PROTONIX VIAL for IV PUSH) 40 mg DAILYAC IVP Last administered on 01/03/19at 06:04; Start 12/24/18 at 09:30 Lorazepam (Ativan) 0.5 mg PRN Q4HRS PRN IV ANXIETY / AGITATION Last administered on 12/25/18at 04:47; Start 12/24/18 at 10:30; Stop 12/25/18 at 10:22; Status DC Sodium Chloride 45 meq/Sodium Acetate 45 meq/ Potassium Chloride 50 meq/ Potassium Phosphate 20.4 mmol/Magnesium Sulfate 18 meq/ Calcium Gluconate 5 meq / Multivitamins 10 ml/Chromium/ Copper/Manganese/ Seleni/Zn 1 ml/ Total Parenteral Nutrition/Amino Acids/Dextrose/ Fat Emuls... 1,512 ml @ 63 mls/hr TPN CONT IV Last administered on 12/24/18at 21:57; Start 12/24/18 at 22:00; Stop 12/25/18 at 21:59; Status DC Phenyleph/Shark Oil/Min Oil/Petrol (Preparation H) 1 ranjith PRN Q4HRS PRN RC RECTAL PAIN; Start 12/24/18 at 12:45; Stop 12/25/18 at 20:20; Status DC Sodium Chloride 45 meq/Sodium Acetate 45 meq/ Potassium Chloride 50 meq/ Potassium Phosphate 20.4 mmol/Magnesium Sulfate 18 meq/ Calcium Gluconate 5 meq / Multivitamins 10 ml/Chromium/ Copper/Manganese/ Seleni/Zn 1 ml/ Total Parenteral Nutrition/Amino Acids/Dextrose/ Fat Emuls... 1,512 ml @ 63 mls/hr TPN CONT IV Last administered on 12/26/18at 00:34; Start 12/25/18 at 22:00; Stop 12/26/18 at 21:59; Status DC Neomycin/ Polymyxin/ Bacitracin (Triple Antibiotic Ointment) 1 pkt PRN TID PRN TP skin around rectum, post op Last administered on 12/26/18at 09:58; Start at 14:30 Alprazolam (Xanax) 0.25 mg PRN Q8HRS PRN PO ANXIETY / AGITATION Last administered on 01/01/19at 02:34; Start 12/25/18 at 18:00 Morphine Sulfate (Morphine Sulfate) 2 mg PRN Q6HRS PRN IV PAIN Last administered on 12/29/18at 21:47; Start 12/25/18 at 18:00; Stop 12/30/18 at 03:17 ; Status DC Guaifenesin (Mucinex) 600 mg BID PO Last administered on 12/26/18at 21:26; Start 12/26/18 at 11:00 Guaifenesin (Mucinex) 600 mg BID PO ; Start 12/26/18 at 11:00; Status UNV Guaifenesin/ Codeine Phosphate (Robitussin Ac) 5 ml PRN Q6HRS PRN PO COUGH Last administered on 12/26/18at 10:41; Start 12/26/18 at 10:30 Sodium Acetate 90 meq/Potassium Chloride 50 meq/ Potassium Phosphate 13.6 mmol/ Magnesium Sulfate 18 meq/ Calcium Gluconate 5 meq/ Multivitamins 10 ml/Chromium / Copper/Manganese/ Seleni/Zn 1 ml/ Total Parenteral Nutrition/Amino Acids/ Dextrose/ Fat Emulsion Intravenous 1,512 ml @ 63 mls/hr TPN CONT IV Last administered on 12/26/18at 21:37; Start 12/26/18 at 22:00; Stop 12/28/18 at 01:28 ; Status DC Benzocaine (Hurricaine One) 1 spray 1X ONCE MM ; Start 12/26/18 at 19:15; Stop 12/26/18 at 19:16; Status DC Acetaminophen (Tylenol) 650 mg PRN Q6HRS PRN PO MILD PAIN / TEMP Last administered on 12/27/18at 04:39; Start 12/26/18 at 21:00 Benzocaine (Hurricaine One) 1 spray 1X ONCE MM Last administered on 12/27/18at 09:00; Start 12/27/18 at 09:15; Stop 12/27/18 at 09:16; Status DC Sodium Acetate 90 meq/Potassium Chloride 50 meq/ Potassium Phosphate 13.6 mmol/ Magnesium Sulfate 15 meq/ Calcium Gluconate 5 meq/ Multivitamins 10 ml/Chromium / Copper/Manganese/ Seleni/Zn 1 ml/ Total Parenteral Nutrition/Amino Acids/ Dextrose/ Fat Emulsion Intravenous 1,512 ml @ 63 mls/hr TPN CONT IV ; Start at 22:00; Stop 12/28/18 at 21:59; Status Cancel Sodium Acetate 90 meq/Potassium Chloride 50 meq/ Potassium Phosphate 13.6 mmol/ Magnesium Sulfate 15 meq/ Calcium Gluconate 5 meq/ Multivitamins 10 ml/Chromium / Copper/Manganese/ Seleni/Zn 1 ml/ Total Parenteral Nutrition/Amino Acids/ Dextrose/ Fat Emulsion Intravenous 1,512 ml @ 63 mls/hr TPN CONT IV ; Start at 22:00; Stop 12/28/18 at 21:59; Status DC Lidocaine/Sodium Bicarbonate (Buffered Lidocaine 1%) 3 ml 1X ONCE INJ ; Start 12/28/18 at 09:00; Stop 12/28/18 at 09:01; Status Cancel Benzocaine (Hurricaine One) 1 spray 1X ONCE MM Last administered on 12/28/18at 09:32; Start 12/28/18 at 09:30; Stop 12/28/18 at 09:33; Status DC Sodium Acetate 90 meq/Potassium Chloride 50 meq/ Potassium Phosphate 13.6 mmol/ Magnesium Sulfate 15 meq/ Calcium Gluconate 5 meq/ Multivitamins 10 ml/Chromium / Copper/Manganese/ Seleni/Zn 1 ml/ Total Parenteral Nutrition/Amino Acids/ Dextrose/ Fat Emulsion Intravenous 1,512 ml @ 63 mls/hr TPN CONT IV Last administered on 12/28/18at 22:06; Start 12/28/18 at 22:00; Stop 12/29/18 at 21:59 ; Status DC Iohexol (Omnipaque 300 Mg/ml) 400 ml 1X ONCE PO Last administered on at 08:15; Start 12/29/18 at 06:45; Stop 12/29/18 at 06:46; Status DC Info (CONTRAST GIVEN -- Rx MONITORING) 1 each PRN DAILY PRN MC SEE COMMENTS; Start 12/29/18 at 06:45; Stop 12/31/18 at 06:44; Status DC Iohexol (Omnipaque 300 Mg/ml) 400 ml 1X ONCE PO ; Start 12/29/18 at 07:00; Stop 12/29/18 at 07:03; Status DC Info (CONTRAST GIVEN -- Rx MONITORING) 1 each PRN DAILY PRN MC SEE COMMENTS; Start 12/29/18 at 07:15; Stop 12/31/18 at 07:14; Status DC Meropenem 500 mg/ Sodium Chloride 50 ml @ 100 mls/hr Q6HRS IV Last administered on 01/03/19at 05:45; Start 12/29/18 at 12:00 Multi-Ingredient Ointment (Analgesic [place]) 1 ranjith PRN QID PRN TP MUSCLE PAIN Last administered on 12/29/18at 14:40; Start 12/29/18 at 13:00 Sodium Acetate 90 meq/Potassium Chloride 50 meq/ Potassium Phosphate 13.6 mmol/ Magnesium Sulfate 15 meq/ Calcium Gluconate 5 meq/ Multivitamins 10 ml/Chromium / Copper/Manganese/ Seleni/Zn 1 ml/ Total Parenteral Nutrition/Amino Acids/ Dextrose/ Fat Emulsion Intravenous 1,512 ml @ 63 mls/hr TPN CONT IV Last administered on 12/29/18at 21:40; Start 12/29/18 at 22:00; Stop 12/30/18 at 21:59 ; Status DC Morphine Sulfate (Morphine Sulfate) 2 mg PRN Q4HRS PRN IV SEVERE PAIN Last administered on 12/30/18at 19:50; Start 12/30/18 at 03:30; Stop 12/30/18 at 21:33 ; Status DC Propofol 20 ml @ As Directed STK-MED ONCE IV ; Start 12/30/18 at 12:51; Stop at 12:52; Status DC Dexamethasone Sodium Phosphate (Decadron) 20 mg STK-MED ONCE .ROUTE ; Start at 12:51; Stop 12/30/18 at 12:52; Status DC Lidocaine HCl (Lidocaine Pf 2% Vial) 5 ml STK-MED ONCE .ROUTE ; Start 12/30/18 at 12:51; Stop 12/30/18 at 12:52; Status DC Ondansetron HCl (Zofran) 4 mg STK-MED ONCE .ROUTE ; Start 12/30/18 at 12:51; Stop 12/30/18 at 12:52; Status DC Rocuronium [place] (Zemuron) 50 mg STK-MED ONCE .ROUTE ; Start 12/30/18 at 12:51 ; Stop 12/30/18 at 12:52; Status DC Succinylcholine Chloride (Anectine) 200 mg STK-MED ONCE .ROUTE ; Start 12/30/18 at 12:51; Stop 12/30/18 at 12:52; Status DC Fentanyl Citrate (Fentanyl 5ml Vial) 250 mcg STK-MED ONCE .ROUTE ; Start at 13:49; Stop 12/30/18 at 13:50; Status DC Sodium Chloride 90 meq/Potassium Chloride 50 meq/ Potassium Phosphate 13.6 mmol/ Magnesium Sulfate 15 meq/ Multivitamins 10 ml/Chromium/ Copper/Manganese/ Seleni /Zn 1 ml/ Total Parenteral Nutrition/Amino Acids/Dextrose/ Fat Emulsion Intravenous 1,512 ml @ 63 mls/hr TPN CONT IV Last administered on 12/30/18at 23:43; Start 12/30/18 at 22:00; Stop 12/31/18 at 21:59; Status DC Vasopressin (Vasostrict) 20 unit STK-MED ONCE .ROUTE ; Start 12/30/18 at 15:00; Stop 12/30/18 at 15:01; Status DC Sodium Chloride (SODIUM CHLORIDE 20ml) 20 ml STK-MED ONCE IJ ; Start 12/30/18 at 15:01; Stop 12/30/18 at 15:02; Status DC Albumin Human 500 ml @ As Directed STK-MED ONCE IV ; Start 12/30/18 at 15:01; Stop 12/30/18 at 15:02; Status DC Glycopyrrolate (Robinul) 1 mg STK-MED ONCE .ROUTE ; Start 12/30/18 at 15:21; Stop 12/30/18 at 15:22; Status DC Neostigmine Methylsulfate (Bloxiverz) 10 mg STK-MED ONCE .ROUTE ; Start at 15:21; Stop 12/30/18 at 15:22; Status DC Albuterol/ Ipratropium (Duoneb) 3 ml STK-MED ONCE .ROUTE ; Start 12/30/18 at 15: 45; Stop 12/30/18 at 15:46; Status DC Fentanyl Citrate (Fentanyl 2ml Vial) 100 mcg STK-MED ONCE .ROUTE ; Start at 16:56; Stop 12/30/18 at 16:57; Status DC Ondansetron HCl (Zofran) 4 mg PRN Q6HRS PRN IV NAUSEA/VOMITING; Start 12/30/18 at 17:15; Stop 12/30/18 at 21:35; Status DC Fentanyl Citrate (Fentanyl 2ml Vial) 25 mcg PRN Q5MIN PRN IV MILD PAIN Last administered on 12/30/18at 17:15; Start 12/30/18 at 17:15; Stop 12/30/18 at 21:35 ; Status DC Fentanyl Citrate (Fentanyl 2ml Vial) 50 mcg PRN Q5MIN PRN IV MODERATE TO SEVERE PAIN Last administered on 12/30/18at 17:57; Start 12/30/18 at 17:15; Stop 12/30/18 at 21:35; Status DC Morphine Sulfate (Morphine Sulfate) 1 mg PRN Q10MIN PRN IV SEVERE PAIN; Start 12/30/18 at 17:15; Stop 12/31/18 at 17:14; Status DC Ringer's Solution 1,000 ml @ 30 mls/hr Q24H IV Last administered on 12/30/18at 18:09; Start 12/30/18 at 17:10; Stop 12/30/18 at 21:33; Status DC Lidocaine HCl (Xylocaine-Mpf 1% 2ml Vial) 2 ml 1X PRN PRN ID IV START; Start at 17:15; Stop 12/30/18 at 21:35; Status DC Hydromorphone HCl (Dilaudid) 0.5 mg PRN Q10MIN PRN IV SEV PAIN, Second choice; Start 12/30/18 at 17:15; Stop 12/30/18 at 21:35; Status DC Prochlorperazine Edisylate (Compazine) 5 mg PACU PRN PRN IV NAUSEA, MRX1; Start 12/30/18 at 17:15; Stop 12/30/18 at 21:35; Status DC Albumin Human 100 ml @ 100 mls/hr 1X ONCE IV Last administered on 12/30/18at 22:00; Start 12/30/18 at 22:00; Stop 12/30/18 at 22:59; Status DC Ringer's Solution 500 ml @ 500 mls/hr 1X ONCE IV Last administered on at 22:00; Start 12/30/18 at 22:00; Stop 12/30/18 at 22:59; Status DC Ringer's Solution 1,000 ml @ 100 mls/hr Q10H IV Last administered on at 00:58; Start 12/30/18 at 23:00; Stop 01/01/19 at 09:30; Status DC Hydromorphone HCl (Dilaudid) 0.5 mg PRN Q2HR PRN IV MODERATE PAIN Last administered on 01/03/19 03:29; Start 12/30/18 at 21:30 Hydromorphone HCl (Dilaudid) 1 mg PRN Q2HR PRN IV SEVERE PAIN Last administered on 01/03/19at 09:03; Start 12/30/18 at 21:30 Insulin Human Lispro (HumaLOG) 0-5 UNITS Q6HRS SQ Last administered on at 06:04; Start 12/31/18 at 00:30 Sodium Chloride 90 meq/Potassium Chloride 30 meq/ Potassium Phosphate 13.6 mmol/ Magnesium Sulfate 15 meq/ Calcium Gluconate 5 meq/ Multivitamins 10 ml/Chromium / Copper/Manganese/ Seleni/Zn 1 ml/ Total Parenteral Nutrition/Amino Acids/ Dextrose/ Fat Emulsion Intravenous 1,512 ml @ 63 mls/hr TPN CONT IV Last administered on 12/31/18 21:58; Start 12/31/18 at 22:00; Stop 01/01/19 at 21:59 ; Status DC Sodium Chloride 90 meq/Potassium Chloride 30 meq/ Potassium Phosphate 13.6 mmol/ Magnesium Sulfate 15 meq/ Calcium Gluconate 5 meq/ Multivitamins 10 ml/Chromium / Copper/Manganese/ Seleni/Zn 1 ml/ Total Parenteral Nutrition/Amino Acids/ Dextrose/ Fat Emulsion Intravenous 1,512 ml @ 63 mls/hr TPN CONT IV Last administered on 01/01/19at 21:09; Start 01/01/19 at 22:00; Stop 01/02/19 at 21:59 ; Status DC Vancomycin HCl (Vanco Per Pharmacy) 1 each PRN DAILY PRN MC SEE COMMENTS Last administered on 01/03/19at 10:18; Start 01/01/19 at 11:15 Vancomycin HCl 2 gm/Sodium Chloride 500 ml @ 250 mls/hr ONCE ONCE IV Last administered on 01/01/19at 12:28; Start 01/01/19 at 12:00; Stop 01/01/19 at 13:59 ; Status DC Vancomycin HCl 1.25 gm/Sodium Chloride 250 ml @ 166.667 mls/hr Q24H IV ; Start 01/01/19 at 12:00; Status Cancel Vancomycin HCl (Vancomycin Trough Level) 1 each 1X ONCE MC ; Start 01/03/19 at 11:30; Stop 01/03/19 at 11:31 Vancomycin HCl 1.25 gm/Sodium Chloride 250 ml @ 166.667 mls/hr Q24H IV Last administered on 01/02/19at 13:04; Start 01/02/19 at 12:00 Albuterol/ Ipratropium (Duoneb) 3 ml 1X ONCE NEB Last administered on at 08:19; Start 01/02/19 at 07:30; Stop 01/02/19 at 07:31; Status DC Albuterol/ Ipratropium (Duoneb) 3 ml Q4HRS NEB Last administered on 01/03/19at 07:24; Start 01/02/19 at 12:00 Furosemide (Lasix) 20 mg 1X ONCE IVP Last administered on 01/02/19at 07:36; Start 01/02/19 at 07:30; Stop 01/02/19 at 07:31; Status DC Sodium Chloride 90 meq/Potassium Chloride 30 meq/ Potassium Phosphate 13.6 mmol/ Magnesium Sulfate 15 meq/ Calcium Gluconate 5 meq/ Multivitamins 10 ml/Chromium / Copper/Manganese/ Seleni/Zn 1 ml/ Total Parenteral Nutrition/Amino Acids/ Dextrose/ Fat Emulsion Intravenous 1,512 ml @ 63 mls/hr TPN CONT IV Last administered on 01/02/19at 21:20; Start 01/02/19 at 22:00; Stop 01/03/19 at 21:59 Active Scripts Active Chlorhexidine Gluconate 473 Ml Mouthwash 473 Ml MM BID 7 Days Vitamin C (Ascorbate Calcium) 500 Mg Tablet 500 Mg PO DAILY 30 Days Slow Release Iron (Ferrous Sulfate) 250 Mg Tablet.er 250 Mg PO DAILY 30 Days Protonix (Pantoprazole Sodium) 40 Mg Granpkt.dr 40 Mg PO DAILY 30 Days Reported Alprazolam 0.25 Mg Tablet 0.25 Mg PO DAILY Metformin Hcl Er (Metformin Hcl) 500 Mg Tab.er.24h 1 Tab PO DAILY Namenda (Memantine Hcl) 10 Mg Tablet 1 Tab PO BID Losartan Potassium 100 Mg Tablet 100 Mg PO DAILY Spironolactone 25 Mg Tablet 1 Tab PO DAILY Ventolin Hfa Inhaler (Albuterol Sulfate) 18 Gm Hfa.aer.ad 2 Puff INH Q4HRS Cymbalta (Duloxetine Hcl) 20 Mg Capsule.dr 90 Mg PO DAILY Requip (Ropinirole Hcl) 1 Mg Tablet 3 Mg PO DAILY Amlodipine Besylate 10 Mg Tablet 10 Mg PO DAILY Vitals/I & O Vital Sign - Last 24 Hours 01/02/19 01/02/19 01/02/19 01/02/19 11:00 11:31 12:06 13:04 Temp 97.3 97.3 Pulse 81 Resp 16 B/P (MAP) 114/71 (85) Pulse Ox 95 O2 Delivery Nasal Cannula Nasal Cannula Nasal Cannula Nasal Cannula O2 Flow Rate 3.0 3.0 3.0 3.0 01/02/19 01/02/19 01/02/19 01/02/19 15:00 15:50 16:27 19:52 Temp 98.0 97.9 98.0 97.9 Pulse 85 78 Resp 18 24 B/P (MAP) 118/68 (85) 121/72 (88) Pulse Ox 97 98 O2 Delivery Nasal Cannula Nasal Cannula Nasal Cannula Nasal Cannula O2 Flow Rate 3.0 3.0 3.0 3.0 01/02/19 01/02/19 01/02/19 01/02/19 19:52 20:00 22:29 22:30 Temp 98.1 98.1 Pulse 90 Resp 20 22 B/P (MAP) 143/90 (107) Pulse Ox 96 96 96 O2 Delivery Nasal Cannula Nasal Cannula Nasal Cannula Nasal Cannula O2 Flow Rate 3.0 3.0 2.5 2.5 01/02/19 01/03/19 01/03/19 01/03/19 23:40 03:16 03:20 03:29 Temp 98.1 98.1 Pulse 81 Resp 20 22 B/P (MAP) 131/82 (98) Pulse Ox 96 98 96 O2 Delivery Nasal Cannula Nasal Cannula Nasal Cannula Nasal Cannula O2 Flow Rate 3.0 2.5 3.0 2.5 01/03/19 01/03/19 01/03/19 01/03/19 03:59 07:20 07:21 07:25 Temp 98.0 98.0 Pulse 80 Resp 18 20 B/P (MAP) 141/85 (103) Pulse Ox 96 99 94 O2 Delivery Nasal Cannula Nasal Cannula Nasal Cannula Nasal Cannula O2 Flow Rate 2.5 2.5 2.5 3.0 01/03/19 01/03/1901/03/19 07:42 07:42 09:03 Pulse 80 80 B/P (MAP) 141/85 141/85 O2 Delivery Nasal Cannula O2 Flow Rate 2.5 Intake and Output 01/02/19 01/02/19 01/03/19 15:00 23:00 07:00 Intake Total 0 ml 0 ml Output Total 1650 ml 550 ml Balance -1650 ml -550 ml RADAMES MÉNDEZ MD Jan 03, 2019 10:50
--- NOTE | 2019-01-03 10:51 | PDOC ---
Infectious Disease Note Subjective Subjective NGT clamped Breathing better, less SOA Denies N/V/F/C O2 3L Vital Sign Vital Signs Vital Signs Date Time Temp Pulse Resp B/P (MAP) Pulse Ox O2 Delivery O2 Flow Rate FiO2 01/03/19 09:03 Nasal Cannula 2.5 01/03/19 07:42 80 141/85 01/03/19 07:25 94 01/03/19 07:21 98.0 20 98.0 Physical Exam PHYSICAL EXAM GENERAL: Sitting in the chair, legs elevated, alert, relaxed appearance, more conversant and joking HEENT: Oral cavity pink, dry. + NGT -clamped NECK: Supple LUNGS: Diminished aeration bases HEART: S1, S2 ABDOMEN: Distended, soft, BS quiet. dressing dry. : Freeman EXTREMITIES: LLE 1+ edema. no cyanosis SKIN: No rash. Rectal wound. NEUROLOGIC: Alert, responding appropriately RUE-PICC (12/23) clean Labs Lab Laboratory Tests Test 01/02/19 12:10 01/02/19 18:07 01/03/19 00:04 01/03/19 05:50 Glucose (Fingerstick) 333 mg/dL (70-99) 327 mg/dL (70-99) 248 mg/dL (70-99) White Blood Count 17.4 x10^3/uL (4.0-11.0) Red Blood Count 3.19 x10^6/uL (3.50-5.40) Hemoglobin 7.8 g/dL (12.0-15.5) Hematocrit 24.7 % (36.0-47.0) Mean Corpuscular Volume 78 fL (79-100) Mean Corpuscular Hemoglobin 25 pg (25-35) Mean Corpuscular Hemoglobin Concent 32 g/dL (31-37) Red Cell Distribution Width 23.3 % (11.5-14.5) Platelet Count 375 x10^3/uL (140-400) Neutrophils (%) (Auto) 87 % (31-73) Lymphocytes (%) (Auto) 5 % (24-48) Monocytes (%) (Auto) 6 % (0-9) Eosinophils (%) (Auto) 1 % (0-3) Basophils (%) (Auto) 1 % (0-3) Neutrophils # (Auto) 15.2 x10^3uL (1.8-7.7) Lymphocytes # (Auto) 0.8 x10^3/uL (1.0-4.8) Monocytes # (Auto) 1.0 x10^3/uL (0.0-1.1) Eosinophils # (Auto) 0.2 x10^3/uL (0.0-0.7) Basophils # (Auto) 0.2 x10^3/uL (0.0-0.2) Sodium Level 144 mmol/L (136-145) Potassium Level 4.3 mmol/L (3.5-5.1) Chloride Level 106 mmol/L (98-107) Carbon Dioxide Level 32 mmol/L (21-32) Anion Gap 6 (6-14) Blood Urea Nitrogen 25 mg/dL (7-20) Creatinine 0.7 mg/dL (0.6-1.0) Estimated GFR (Cockcroft-Gault) 98.7 BUN/Creatinine Ratio 36 (6-20) Glucose Level 387 mg/dL (70-99) Calcium Level 9.2 mg/dL (8.5-10.1) Phosphorus Level 3.4 mg/dL (2.6-4.7) Magnesium Level 2.0 mg/dL (1.8-2.4) Total Bilirubin 0.3 mg/dL (0.2-1.0) Aspartate Amino Transf (AST/SGOT) 35 U/L (15-37) Alanine Aminotransferase (ALT/SGPT) 44 U/L (14-59) Alkaline Phosphatase 95 U/L (46-116) Total Protein 6.1 g/dL (6.4-8.2) Albumin 1.9 g/dL (3.4-5.0) Albumin/Globulin Ratio 0.5 (1.0-1.7) Test 01/03/19 05:51 Glucose (Fingerstick) 297 mg/dL (70-99) Micro Microbiology 01/01/19 Blood Culture - Preliminary, Resulted NO GROWTH AFTER 2 DAYS 12/25/18 - Final, Complete 12/25/18 - Final, Complete 12/25/18 - Final, Complete 12/25/18 - Final, Complete 12/25/18 Gram Stain Evaluation - Final, Complete 12/25/18 Sputum Culture - Final, Complete 12/25/18 Sputum Result 1 - Final, Complete Objective Assessment Small bowel obstruction at previous anastomotic site. s/p exploratory laparotomy with extended right hemicolectomy and primary anastomosis, 12/30. Leukocytosis s/p Dexamethasone 12/30 - source intraabdominal from bowel obstruction likely postop, improving S/P laparoscopic-assisted right colon resection and hemorrhoidectomy on 2018 for bleeding cecal ulcer and hemorrhoids; path negative for malignancy . Left pleural effusion with left basilar atelectasis or infiltrate. cxr 01/02 shows improvement COPD Pneumonia sputum c/s nonrevealing, 12/25 Ileus Allergies to PCN Plan Plan of Care cont Merrem vanc added per primary on 01/01 will d/c Monitor labs/temp f/u BC maintain aspiration cont supportive care JI WAY MD Jan 03, 2019 10:51
[2019-01-03 11:00] VITALS: BP 147/77
[2019-01-03] MEDS: TPN PER PHARMACY MC PRN (12:26)
--- NOTE | 2019-01-03 12:29 | NUR ---
Pharmacy TPN Dosing Note S: ELLE LATHAM is a 72 year old F Currently receiving Central Continuous TPN started 12/23/18 B:Pertinent PMH: SBO Height: 5 feet, 7 inches Weight: 85.085023 kg Current diet: npo LABS: Sodium: 144 Potassium: 4.3 Chloride: 106 Calcium: 9.2 Corrected Calcium: 10.88 Magnesium: 2.0 CO2: 32 SCr: 0.7 Glucose: 297,302 Albumin: 1.9 AST: 35 ALT: 44 TPN FORMULA: TPN TYPE: Central Continuous AMINO ACIDS: 85 gm DEXTROSE: 260 gm LIPIDS: 40 gm POTASSIUM CHLORIDE: 30 mEq POTASSIUM PHOSPHATE: 13.6 mmol MAGNESIUM: 15 mEq INSULIN: 10 units MULTIPLE VITAMIN: 10 ml TRACE ELEMENTS: MTE5 1 ml(s) TPN PLAN: Removed Calcium due to high trending Calcium level. Added 10 units of regular insulin to TPN due to constant high blood sugars. R: Change TPN Will monitor electrolytes, glucose, and tolerance to TPN. Umair Oconnell, [facility], 01/03/19 [id number]
--- NOTE | 2019-01-03 13:25 | PDOC ---
PULMONARY PROGRESS NOTES Subjective ng in, no more sob, has cough, no sputum, on home 02 3lpm Vitals Vital Signs Date Time Temp Pulse Resp B/P (MAP) Pulse Ox O2 Delivery O2 Flow Rate FiO2 01/03/19 11:11 Nasal Cannula 3.0 01/03/19 11:00 98.0 80 18 147/77 (100) 96 98.0 Comments ros as mentioned as above other sys otherwise neg ROS: No Nausea, No Chest Pain General: Alert, No acute distress HEENT: Other (nc at perrl nose throat clear neck +JVD no lad, no thyromegaly ) Lungs: Clear Cardiovascular: S1, S2 Abdomen: Soft, Other (distended) Neuro Exam: Alert, Oriented Extremities: No Edema Skin: Warm Labs Laboratory Tests Test 01/01/19 18:18 01/01/19 23:14 01/02/19 05:00 01/02/19 05:07 Glucose (Fingerstick) 270 mg/dL (70-99) 271 mg/dL (70-99) 262 mg/dL (70-99) White Blood Count 20.5 x10^3/uL (4.0-11.0) Red Blood Count 3.11 x10^6/uL (3.50-5.40) Hemoglobin 7.5 g/dL (12.0-15.5) Hematocrit 24.4 % (36.0-47.0) Mean Corpuscular Volume 78 fL (79-100) Mean Corpuscular Hemoglobin 24 pg (25-35) Mean Corpuscular Hemoglobin Concent 31 g/dL (31-37) Red Cell Distribution Width 23.1 % (11.5-14.5) Platelet Count 364 x10^3/uL (140-400) Neutrophils (%) (Auto) 89 % (31-73) Lymphocytes (%) (Auto) 4 % (24-48) Monocytes (%) (Auto) 5 % (0-9) Eosinophils (%) (Auto) 1 % (0-3) Basophils (%) (Auto) 0 % (0-3) Neutrophils # (Auto) 18.2 x10^3uL (1.8-7.7) Lymphocytes # (Auto) 0.9 x10^3/uL (1.0-4.8) Monocytes # (Auto) 1.1 x10^3/uL (0.0-1.1) Eosinophils # (Auto) 0.2 x10^3/uL (0.0-0.7) Basophils # (Auto) 0.1 x10^3/uL (0.0-0.2) Test 01/02/19 12:10 01/02/19 18:07 01/03/19 00:04 01/03/19 05:50 Glucose (Fingerstick) 333 mg/dL (70-99) 327 mg/dL (70-99) 248 mg/dL (70-99) White Blood Count 17.4 x10^3/uL (4.0-11.0) Red Blood Count 3.19 x10^6/uL (3.50-5.40) Hemoglobin 7.8 g/dL (12.0-15.5) Hematocrit 24.7 % (36.0-47.0) Mean Corpuscular Volume 78 fL (79-100) Mean Corpuscular Hemoglobin 25 pg (25-35) Mean Corpuscular Hemoglobin Concent 32 g/dL (31-37) Red Cell Distribution Width 23.3 % (11.5-14.5) Platelet Count 375 x10^3/uL (140-400) Neutrophils (%) (Auto) 87 % (31-73) Lymphocytes (%) (Auto) 5 % (24-48) Monocytes (%) (Auto) 6 % (0-9) Eosinophils (%) (Auto) 1 % (0-3) Basophils (%) (Auto) 1 % (0-3) Neutrophils # (Auto) 15.2 x10^3uL (1.8-7.7) Lymphocytes # (Auto) 0.8 x10^3/uL (1.0-4.8) Monocytes # (Auto) 1.0 x10^3/uL (0.0-1.1) Eosinophils # (Auto) 0.2 x10^3/uL (0.0-0.7) Basophils # (Auto) 0.2 x10^3/uL (0.0-0.2) Sodium Level 144 mmol/L (136-145) Potassium Level 4.3 mmol/L (3.5-5.1) Chloride Level 106 mmol/L (98-107) Carbon Dioxide Level 32 mmol/L (21-32) Anion Gap 6 (6-14) Blood Urea Nitrogen 25 mg/dL (7-20) Creatinine 0.7 mg/dL (0.6-1.0) Estimated GFR (Cockcroft-Gault) 98.7 BUN/Creatinine Ratio 36 (6-20) Glucose Level 387 mg/dL (70-99) Calcium Level 9.2 mg/dL (8.5-10.1) Phosphorus Level 3.4 mg/dL (2.6-4.7) Magnesium Level 2.0 mg/dL (1.8-2.4) Total Bilirubin 0.3 mg/dL (0.2-1.0) Aspartate Amino Transf (AST/SGOT) 35 U/L (15-37) Alanine Aminotransferase (ALT/SGPT) 44 U/L (14-59) Alkaline Phosphatase 95 U/L (46-116) Total Protein 6.1 g/dL (6.4-8.2) Albumin 1.9 g/dL (3.4-5.0) Albumin/Globulin Ratio 0.5 (1.0-1.7) Test 01/03/19 05:51 01/03/19 12:00 Glucose (Fingerstick) 297 mg/dL (70-99) 302 mg/dL (70-99) Laboratory Tests Test 01/02/19 18:07 01/03/19 00:04 01/03/19 05:50 01/03/19 05:51 Glucose (Fingerstick) 327 mg/dL (70-99) 248 mg/dL (70-99) 297 mg/dL (70-99) White Blood Count 17.4 x10^3/uL (4.0-11.0) Red Blood Count 3.19 x10^6/uL (3.50-5.40) Hemoglobin 7.8 g/dL (12.0-15.5) Hematocrit 24.7 % (36.0-47.0) Mean Corpuscular Volume 78 fL (79-100) Mean Corpuscular Hemoglobin 25 pg (25-35) Mean Corpuscular Hemoglobin Concent 32 g/dL (31-37) Red Cell Distribution Width 23.3 % (11.5-14.5) Platelet Count 375 x10^3/uL (140-400) Neutrophils (%) (Auto) 87 % (31-73) Lymphocytes (%) (Auto) 5 % (24-48) Monocytes (%) (Auto) 6 % (0-9) Eosinophils (%) (Auto) 1 % (0-3) Basophils (%) (Auto) 1 % (0-3) Neutrophils # (Auto) 15.2 x10^3uL (1.8-7.7) Lymphocytes # (Auto) 0.8 x10^3/uL (1.0-4.8) Monocytes # (Auto) 1.0 x10^3/uL (0.0-1.1) Eosinophils # (Auto) 0.2 x10^3/uL (0.0-0.7) Basophils # (Auto) 0.2 x10^3/uL (0.0-0.2) Sodium Level 144 mmol/L (136-145) Potassium Level 4.3 mmol/L (3.5-5.1) Chloride Level 106 mmol/L (98-107) Carbon Dioxide Level 32 mmol/L (21-32) Anion Gap 6 (6-14) Blood Urea Nitrogen 25 mg/dL (7-20) Creatinine 0.7 mg/dL (0.6-1.0) Estimated GFR (Cockcroft-Gault) 98.7 BUN/Creatinine Ratio 36 (6-20) Glucose Level 387 mg/dL (70-99) Calcium Level 9.2 mg/dL (8.5-10.1) Phosphorus Level 3.4 mg/dL (2.6-4.7) Magnesium Level 2.0 mg/dL (1.8-2.4) Total Bilirubin 0.3 mg/dL (0.2-1.0) Aspartate Amino Transf (AST/SGOT) 35 U/L (15-37) Alanine Aminotransferase (ALT/SGPT) 44 U/L (14-59) Alkaline Phosphatase 95 U/L (46-116) Total Protein 6.1 g/dL (6.4-8.2) Albumin 1.9 g/dL (3.4-5.0) Albumin/Globulin Ratio 0.5 (1.0-1.7) Test 01/03/19 12:00 Glucose (Fingerstick) 302 mg/dL (70-99) Medications Active Scripts Medications Dose Route/Sig Max Daily Dose Days Date Category Chlorhexidine Gluconate 473 Ml Mouthwash 473 Ml MM BID 7 12/10/18 Rx Vitamin C (Ascorbate Calcium) 500 Mg Tablet 500 Mg PO DAILY 30 11/22/18 Rx Slow Release Iron (Ferrous Sulfate) 250 Mg Tablet.er 250 Mg PO DAILY 30 11/22/18 Rx Protonix (Pantoprazole Sodium) 40 Mg Granpkt.dr 40 Mg PO DAILY 30 11/22/18 Rx Metformin Hcl Er (Metformin Hcl) 500 Mg Tab.er.24h 1 Tab PO DAILY 11/12/16 Reported Namenda (Memantine Hcl) 10 Mg Tablet 1 Tab PO BID 11/12/16 Reported Losartan Potassium 100 Mg Tablet 100 Mg PO DAILY 11/12/16 Reported Spironolactone 25 Mg Tablet 1 Tab PO DAILY 11/12/16 Reported Ventolin Hfa Inhaler (Albuterol Sulfate) 18 Gm Hfa.aer.ad 2 Puff INH Q4HRS 11/11/16 Reported Cymbalta (Duloxetine Hcl) 20 Mg Capsule.dr 90 Mg PO DAILY 01/27/16 Reported Requip (Ropinirole Hcl) 1 Mg Tablet 3 Mg PO DAILY 01/27/16 Reported Amlodipine Besylate 10 Mg Tablet 10 Mg PO DAILY 01/27/16 Reported Comments cxr reviewed, b lat ll effusion/atelectasis/infilt L>R Impression . 1. Acute hypoxic respiratory failure MULTIFACTORIAL EXPECTED POST SURGICAL INTERVENTION 2. Gastrointestinal bleed/cecal ulceration by colonoscopy, status post laparoscopic-assisted right colon resection and hemorrhoidectomy 12/17 3. ileus S/P SECOND SURGERY 12/30 SEE BELOW 4. Underlying chronic obstructive pulmonary disease. 5. Abnormal CT chest with focal opacity in the right upper lobe, could be nodule/ATELECTASIS Date: 12/17/2018 Preoperative diagnosis: GI bleed cecal ulceration by colonoscopy with active bleeding hemorrhoids Postoperative diagnosis: Same Procedure: Laparoscopic-assisted right colon resection and hemorrhoidectomy Surgeon: Jan Specimen: Right colon and hemorrhoids Date: 12/30/2018 Preoperative diagnosis: Small bowel obstruction Postoperative diagnosis: Small bowel obstruction at previous anastomotic site Procedure: Exploratory laparotomy with extended right hemicolectomy and primary anastomosis Plan . no further sob, UP TO CHAIR CONTINUE SUPPORT NG PER SURGEON IS, the importance of use discussed BD, cxr reviewed 01/[address] IN 4 MONTHS, dr hoover D/W DAUGHTER discussed w pt, rn, rt JEF CARLIN MD Jan 03, 2019 13:25
--- NOTE | 2019-01-03 14:20 | NUR ---
SS following up with discharge planning. PT/OT ordered for recommendations. SS discussed case with case management. Pt was declined by insurance for LTAC. Pt not ready for discharge at this time. SS will continue to follow for discharge need.s
[2019-01-03 15:00] VITALS: BP 140/81
--- NOTE | 2019-01-03 16:18 | NUR ---
Lydia d/c'd per pt request.
[2019-01-03 19:00] VITALS: BP 137/78
[2019-01-03] MEDS: rOPINIRole 1 MG TABLET. PO SCH (21:00)
[2019-01-03] MEDS ORDERED: AMINO ACID IV SCH ×10 (22:00)
[2019-01-03] MEDS ORDERED: [UNRECOGNIZED DRUG - OTHER] IV SCH ×10 (22:00)
[2019-01-03] MEDS ORDERED: DEXTROSE 70% IV SCH ×10 (22:00)
[2019-01-03] MEDS ORDERED: TOTAL PARENTERAL NUTRITION IV SCH ×10 (22:00)
[2019-01-03 23:00] VITALS: BP 159/104
[2019-01-03] MEDS: ALPRAZolam 0.25 MG TABLET PO PRN (23:47)
[2019-01-04] MEDS: INSULIN LISPRO 300 UNITS/3 ML INSULN.PEN. SQ SCH ×4 (00:14→17:09)
[2019-01-04 03:00] VITALS: BP 146/86
[2019-01-04] MEDS: IPRATRPIUM/ALBUTEROL 0.5/2.5MG 3 ML NEBU. NEB SCH ×6 (03:22→23:12)
[2019-01-04] MEDS: HYDROmorphone 2 MG/ML VIAL IV PRN ×3 (04:51→19:36)
[2019-01-04] MEDS: MEROPENEM 500 MG in IV NORMAL SALINE 50ML 50 ML IV SCH ×3 (06:18→17:05)
[2019-01-04 06:34] LABS: BASO # 0.1 x10^3/uL (0.0-0.2); BASO % 1 % (0-3); EOS # 0.2 x10^3/uL (0.0-0.7); EOS % 2 % (0-3); HEMATOCRIT 25.6 % (36.0-47.0); HEMOGLOBIN 8.3 g/dL (12.0-15.5); LYMPH % 6 % (24-48); MEAN CORPUSCULAR HEMOGLOBIN 25 pg (25-35); MEAN CORPUSCULAR HGB CONC 32 g/dL (31-37); MEAN CORPUSCULAR VOLUME 77 fL (79-100); MONO % 7 % (0-9); NEUT # 12.6 x10^3uL (1.8-7.7); NEUT % 84 % (31-73); PLATELET COUNT 374 x10^3/uL (140-400); RED BLOOD COUNT 3.31 x10^6/uL (3.50-5.40); RED CELL DISTRIBUTION WIDTH 23.8 % (11.5-14.5)
[2019-01-04 07:00] VITALS: BP 138/84
--- NOTE | 2019-01-04 07:51 | PDOC ---
Infectious Disease Note Subjective Subjective NGT clamped Breathing ok Denies N/V/F/C. + flatus O2 ROS ROS o/w neg Vital Sign Vital Signs Vital Signs Date Time Temp Pulse Resp B/P (MAP) Pulse Ox O2 Delivery O2 Flow Rate FiO2 01/04/19 05:21 18 Nasal Cannula 2.5 01/04/19 03:00 98.4 89 146/86 (106) 97 98.4 Physical Exam PHYSICAL EXAM GENERAL: In bed, alert, relaxed appearance, HEENT: Oral cavity pink, dry. + NGT -clamped NECK: Supple LUNGS: Diminished aeration bases HEART: S1, S2 ABDOMEN: Distended, soft, BS +. dressing dry. : Freeman EXTREMITIES: LLE 1+ edema. no cyanosis SKIN: No rash. Rectal wound. NEUROLOGIC: Alert, responding appropriately RUE-PICC (12/23) clean Labs Lab Laboratory Tests Test 01/03/19 12:00 01/03/19 18:15 01/04/19 00:05 01/04/19 06:00 Glucose (Fingerstick) 302 mg/dL (70-99) 273 mg/dL (70-99) 270 mg/dL (70-99) White Blood Count 15.0 x10^3/uL (4.0-11.0) Red Blood Count 3.31 x10^6/uL (3.50-5.40) Hemoglobin 8.3 g/dL (12.0-15.5) Hematocrit 25.6 % (36.0-47.0) Mean Corpuscular Volume 77 fL (79-100) Mean Corpuscular Hemoglobin 25 pg (25-35) Mean Corpuscular Hemoglobin Concent 32 g/dL (31-37) Red Cell Distribution Width 23.8 % (11.5-14.5) Platelet Count 374 x10^3/uL (140-400) Neutrophils (%) (Auto) 84 % (31-73) Lymphocytes (%) (Auto) 6 % (24-48) Monocytes (%) (Auto) 7 % (0-9) Eosinophils (%) (Auto) 2 % (0-3) Basophils (%) (Auto) 1 % (0-3) Neutrophils # (Auto) 12.6 x10^3uL (1.8-7.7) Lymphocytes # (Auto) 1.0 x10^3/uL (1.0-4.8) Monocytes # (Auto) 1.0 x10^3/uL (0.0-1.1) Eosinophils # (Auto) 0.2 x10^3/uL (0.0-0.7) Basophils # (Auto) 0.1 x10^3/uL (0.0-0.2) Test 01/04/19 06:10 Glucose (Fingerstick) 277 mg/dL (70-99) Micro Microbiology 01/01/19 Blood Culture - Preliminary, Resulted NO GROWTH AFTER 2 DAYS 12/25/18 - Final, Complete 12/25/18 - Final, Complete 12/25/18 - Final, Complete 12/25/18 - Final, Complete 12/25/18 Gram Stain Evaluation - Final, Complete 12/25/18 Sputum Culture - Final, Complete 12/25/18 Sputum Result 1 - Final, Complete Objective Assessment Small bowel obstruction at previous anastomotic site. s/p exploratory laparotomy with extended right hemicolectomy and primary anastomosis, 12/30. Leukocytosis - better s/p Dexamethasone 12/30 S/P laparoscopic-assisted right colon resection and hemorrhoidectomy on 2018 for bleeding cecal ulcer and hemorrhoids; path negative for malignancy . Left pleural effusion with left basilar atelectasis or infiltrate. cxr 01/02 shows improvement COPD Pneumonia sputum c/s nonrevealing, 12/25 - yeast Ileus - more distended today but + BS Allergies to PCN Plan Plan of Care cont Merrem for now vanc added per primary on 01/01 d/c'd 01/03 Monitor labs in am/temp f/u BC maintain aspiration precautions cont supportive care JI WAY MD Jan 04, 2019 07:51
[2019-01-04] MEDS: FERROUS SULFATE 325 MG TABLET. PO SCH (08:00)
[2019-01-04] MEDS: BENZOCAINE/MENTHOL LOZENGE. PO PRN ×2 (08:49→11:37)
[2019-01-04] MEDS: CHLORHEXIDINE 0.12% 15 ML MOUTHWASH. MM SCH ×2 (08:49→21:41)
[2019-01-04] MEDS ORDERED: DEXTROSE 50% 25 GM / 50ML DISP.SYRIN. IV ONE (08:50)
[2019-01-04] MEDS: PANTOPRAZOLE IV PUSH 40 MG VIAL. IVP SCH (08:52)
[2019-01-04] MEDS: ENOXAPARIN 40 MG/0.4 ML SYRINGE. SQ SCH (08:52)
--- NOTE | 2019-01-04 08:55 | PDOC ---
ABRAHAM WEBER [employer] 01/04/19 0855: SURGICAL PROGRESS NOTE Subjective reports + flatus no stool some nausea at times Vital Signs Vital Signs Date Time Temp Pulse Resp B/P (MAP) Pulse Ox O2 Delivery O2 Flow Rate FiO2 01/04/19 07:00 97.7 85 18 138/84 (102) 97 Nasal Cannula 2.0 97.7 I&O Intake and Output 01/04/19 06:59 Intake Total 630 ml Output Total 550 ml Balance 80 ml Intake Oral 0 ml IV Total 315 ml Other 315 ml Output Urine Total 550 ml # Voids 3 General: Alert, Oriented X3, Cooperative, No acute distress HEENT: Other (NG in place, clamped ) Abdomen: Soft, Other (distended, incision c/d/i, no erythema) Labs Laboratory Tests Test 01/02/19 12:10 01/02/19 18:07 01/03/19 00:04 01/03/19 05:50 Glucose (Fingerstick) 333 mg/dL (70-99) 327 mg/dL (70-99) 248 mg/dL (70-99) White Blood Count 17.4 x10^3/uL (4.0-11.0) Red Blood Count 3.19 x10^6/uL (3.50-5.40) Hemoglobin 7.8 g/dL (12.0-15.5) Hematocrit 24.7 % (36.0-47.0) Mean Corpuscular Volume 78 fL (79-100) Mean Corpuscular Hemoglobin 25 pg (25-35) Mean Corpuscular Hemoglobin Concent 32 g/dL (31-37) Red Cell Distribution Width 23.3 % (11.5-14.5) Platelet Count 375 x10^3/uL (140-400) Neutrophils (%) (Auto) 87 % (31-73) Lymphocytes (%) (Auto) 5 % (24-48) Monocytes (%) (Auto) 6 % (0-9) Eosinophils (%) (Auto) 1 % (0-3) Basophils (%) (Auto) 1 % (0-3) Neutrophils # (Auto) 15.2 x10^3uL (1.8-7.7) Lymphocytes # (Auto) 0.8 x10^3/uL (1.0-4.8) Monocytes # (Auto) 1.0 x10^3/uL (0.0-1.1) Eosinophils # (Auto) 0.2 x10^3/uL (0.0-0.7) Basophils # (Auto) 0.2 x10^3/uL (0.0-0.2) Sodium Level 144 mmol/L (136-145) Potassium Level 4.3 mmol/L (3.5-5.1) Chloride Level 106 mmol/L (98-107) Carbon Dioxide Level 32 mmol/L (21-32) Anion Gap 6 (6-14) Blood Urea Nitrogen 25 mg/dL (7-20) Creatinine 0.7 mg/dL (0.6-1.0) Estimated GFR (Cockcroft-Gault) 98.7 BUN/Creatinine Ratio 36 (6-20) Glucose Level 387 mg/dL (70-99) Calcium Level 9.2 mg/dL (8.5-10.1) Phosphorus Level 3.4 mg/dL (2.6-4.7) Magnesium Level 2.0 mg/dL (1.8-2.4) Total Bilirubin 0.3 mg/dL (0.2-1.0) Aspartate Amino Transf (AST/SGOT) 35 U/L (15-37) Alanine Aminotransferase (ALT/SGPT) 44 U/L (14-59) Alkaline Phosphatase 95 U/L (46-116) Total Protein 6.1 g/dL (6.4-8.2) Albumin 1.9 g/dL (3.4-5.0) Albumin/Globulin Ratio 0.5 (1.0-1.7) Test 01/03/19 05:51 01/03/19 12:00 01/03/19 18:15 01/04/19 00:05 Glucose (Fingerstick) 297 mg/dL (70-99) 302 mg/dL (70-99) 273 mg/dL (70-99) 270 mg/dL (70-99) Test 01/04/19 06:00 01/04/19 06:10 White Blood Count 15.0 x10^3/uL (4.0-11.0) Red Blood Count 3.31 x10^6/uL (3.50-5.40) Hemoglobin 8.3 g/dL (12.0-15.5) Hematocrit 25.6 % (36.0-47.0) Mean Corpuscular Volume 77 fL (79-100) Mean Corpuscular Hemoglobin 25 pg (25-35) Mean Corpuscular Hemoglobin Concent 32 g/dL (31-37) Red Cell Distribution Width 23.8 % (11.5-14.5) Platelet Count 374 x10^3/uL (140-400) Neutrophils (%) (Auto) 84 % (31-73) Lymphocytes (%) (Auto) 6 % (24-48) Monocytes (%) (Auto) 7 % (0-9) Eosinophils (%) (Auto) 2 % (0-3) Basophils (%) (Auto) 1 % (0-3) Neutrophils # (Auto) 12.6 x10^3uL (1.8-7.7) Lymphocytes # (Auto) 1.0 x10^3/uL (1.0-4.8) Monocytes # (Auto) 1.0 x10^3/uL (0.0-1.1) Eosinophils # (Auto) 0.2 x10^3/uL (0.0-0.7) Basophils # (Auto) 0.1 x10^3/uL (0.0-0.2) Glucose (Fingerstick) 277 mg/dL (70-99) Laboratory Tests Test 01/03/19 12:00 01/03/19 18:15 01/04/19 00:05 01/04/19 06:00 Glucose (Fingerstick) 302 mg/dL (70-99) 273 mg/dL (70-99) 270 mg/dL (70-99) White Blood Count 15.0 x10^3/uL (4.0-11.0) Red Blood Count 3.31 x10^6/uL (3.50-5.40) Hemoglobin 8.3 g/dL (12.0-15.5) Hematocrit 25.6 % (36.0-47.0) Mean Corpuscular Volume 77 fL (79-100) Mean Corpuscular Hemoglobin 25 pg (25-35) Mean Corpuscular Hemoglobin Concent 32 g/dL (31-37) Red Cell Distribution Width 23.8 % (11.5-14.5) Platelet Count 374 x10^3/uL (140-400) Neutrophils (%) (Auto) 84 % (31-73) Lymphocytes (%) (Auto) 6 % (24-48) Monocytes (%) (Auto) 7 % (0-9) Eosinophils (%) (Auto) 2 % (0-3) Basophils (%) (Auto) 1 % (0-3) Neutrophils # (Auto) 12.6 x10^3uL (1.8-7.7) Lymphocytes # (Auto) 1.0 x10^3/uL (1.0-4.8) Monocytes # (Auto) 1.0 x10^3/uL (0.0-1.1) Eosinophils # (Auto) 0.2 x10^3/uL (0.0-0.7) Basophils # (Auto) 0.1 x10^3/uL (0.0-0.2) Test 01/04/19 06:10 Glucose (Fingerstick) 277 mg/dL (70-99) Problem List NG clamped overnight, more distended today, she does have + flatus will return to [facility] today DAYLIN WEI MD 01/04/19 1020: SURGICAL PROGRESS NOTE Assessment/Plan Patient looking better, more alert minimal pain. Passing flatus no BM. Mildly distended Agree with Lisandra's assessment and plan to leave NGT to suction until better bowel function. ABRAHAM WEBER APRN Jan 04, 2019 08:55 DAYLIN WEI MD Jan 04, 2019 10:20
[2019-01-04] MEDS: LOSARTAN POTASSIUM 50 MG TABLET. PO SCH (09:00)
[2019-01-04] MEDS: ASCORBIC ACID 500 MG TABLET PO SCH (09:00)
[2019-01-04] MEDS: DULoxetine HCL 30 MG CAPSULE.DR PO SCH (09:00)
[2019-01-04] MEDS: amLODIPine BESYLATE 10 MG TABLET PO SCH (09:00)
[2019-01-04] MEDS: SPIRONOLACTONE 25 MG TABLET PO SCH (09:00)
[2019-01-04] MEDS: DOCUSATE SODIUM 100 MG CAPSULE. PO SCH (09:00)
[2019-01-04] MEDS: MEMANTINE 10 MG TABLET. PO SCH ×2 (09:00→21:00)
--- NOTE | 2019-01-04 09:52 | PDOC ---
Subjective: Subjective: Says she's doing the best she can. "Quite a bit" of flatus. Wants her Kleenex box and ice chips. Objective: Objective: On TPN and IV PPI. Vital Signs: Vital Signs Date Time Temp Pulse Resp B/P (MAP) Pulse Ox O2 Delivery O2 Flow Rate FiO2 01/04/19 07:35 94 Nasal Cannula 3.0 01/04/19 07:00 97.7 85 18 138/84 (102) 97.7 Labs: Laboratory Tests Test 01/03/19 12:00 01/03/19 18:15 01/04/19 00:05 01/04/19 06:00 Glucose (Fingerstick) 302 mg/dL 273 mg/dL 270 mg/dL White Blood Count 15.0 x10^3/uL Red Blood Count 3.31 x10^6/uL Hemoglobin 8.3 g/dL Hematocrit 25.6 % Mean Corpuscular Volume 77 fL Mean Corpuscular Hemoglobin 25 pg Mean Corpuscular Hemoglobin Concent 32 g/dL Red Cell Distribution Width 23.8 % Platelet Count 374 x10^3/uL Neutrophils (%) (Auto) 84 % Lymphocytes (%) (Auto) 6 % Monocytes (%) (Auto) 7 % Eosinophils (%) (Auto) 2 % Basophils (%) (Auto) 1 % Neutrophils # (Auto) 12.6 x10^3uL Lymphocytes # (Auto) 1.0 x10^3/uL Monocytes # (Auto) 1.0 x10^3/uL Eosinophils # (Auto) 0.2 x10^3/uL Basophils # (Auto) 0.1 x10^3/uL Test 01/04/19 06:10 Glucose (Fingerstick) 277 mg/dL PE: GEN: NAD HEENT: NG tube LUNGS: NC HEART: RRR ABD: distended NEURO/PSYCH: A & O 3 A/P: Recurrent GI bleeding s/p right colon resection and hemorrhoidectomy 12/17/18 SBO s/p expl lap w/ extended right hemicolectomy and primary anastomosis 12/30/18 Leukocytosis (better), anemia (stable) COPD, abnormal chest imaging -- Plans to resume NG to LIS today. RADHA JUSTICE Jan 04, 2019 09:52
[2019-01-04 11:00] VITALS: BP 136/91
[2019-01-04] MEDS: TPN PER PHARMACY MC PRN (13:56)
--- NOTE | 2019-01-04 14:02 | NUR ---
Pharmacy TPN Dosing Note S: ELLE LATHAM is a 72 year old F Currently receiving Central Continuous TPN started 12/23/18 B:Pertinent PMH: SBO Height: 5 feet, 7 inches Weight: 85 kg Current diet: npo LABS: Sodium: 144 Potassium: 4.3 Chloride: 106 Calcium: 9.2 Corrected Calcium: 10.88 Magnesium: 2.0 CO2: 32 SCr: 0.7 Glucose: 297,302 Albumin: 1.9 AST: 35 ALT: 44 TPN FORMULA: TPN TYPE: Central Continuous AMINO ACIDS: 85 gm DEXTROSE: 260 gm LIPIDS: 40 gm SODIUM CHLORIDE: 90 mEq POTASSIUM CHLORIDE: 30 mEq POTASSIUM PHOSPHATE: 13.6 mmol MAGNESIUM: 15 mEq INSULIN: 10 units MULTIPLE VITAMIN: 10 ml TRACE ELEMENTS: MTE5 1 ml TPN PLAN: No new labs today. Continue same. Labs in am. R: Continue TPN Will monitor electrolytes, glucose, and tolerance to TPN. Latoya Burns [facility], 01/04/19 [id number]
[2019-01-04 15:00] VITALS: BP 135/77
--- NOTE | 2019-01-04 15:14 | NUR ---
SW following. Discussed with RN, pt still has NG tube and is still on TPN. SW will continue to follow.
--- NOTE | 2019-01-04 15:51 | PDOC ---
PROGRESS NOTES Chief Complaint Chief Complaint CC: Anemia, colonic Avms Acute hypoxic respiratory failure Cecal ulceration - s/p rt colon resection and hemorrhoidectomy 12/17 SBO - s/p ex lap, extended rt hemicolectomy POD3 VISHNU COPD Sepsis/Leukopenia - meropenem and vanco, ID following History of Present Illness History of Present Illness Pt is a 73 y/o female who is s/p rt colon resection and hemorrhoidectomy on and s/p ex lap, extended rt hemicolectomy POD3. Today she was seen and examined in her room. She is awake and up in her chair. She is looking much improved today. Breathing better. States she has no new complaints. I discussed the pt with her son and her RN. Vitals Vitals Vital Signs Date Time Temp Pulse Resp B/P (MAP) Pulse Ox O2 Delivery O2 Flow Rate FiO2 01/04/19 15:47 97 Nasal Cannula 3.0 01/04/19 15:00 97.4 90 18 135/77 (96) 97.4 Physical Exam Physical Exam GENERAL: In bed, alert, relaxed appearance, HEENT: Oral cavity pink, dry. + NGT -clamped NECK: Supple LUNGS: Diminished aeration bases HEART: S1, S2 ABDOMEN: Distended, soft, BS +. dressing dry. : Freeman EXTREMITIES: LLE 1+ edema. no cyanosis SKIN: No rash. Rectal wound. NEUROLOGIC: Alert, responding appropriately RUE-PICC (12/23) clean General: Alert, Oriented X3, Cooperative, No acute distress Heart: Regular rate, No murmurs Lungs: Clear Abdomen: Soft, Other (distended, incision c/d/i, no erythema) Extremities: No clubbing, No cyanosis, No edema Skin: No breakdown, No significant lesion Labs LABS Laboratory Tests Test 01/03/19 18:15 01/04/19 00:05 01/04/19 06:00 01/04/19 06:10 Glucose (Fingerstick) 273 mg/dL (70-99) 270 mg/dL (70-99) 277 mg/dL (70-99) White Blood Count 15.0 x10^3/uL (4.0-11.0) Red Blood Count 3.31 x10^6/uL (3.50-5.40) Hemoglobin 8.3 g/dL (12.0-15.5) Hematocrit 25.6 % (36.0-47.0) Mean Corpuscular Volume 77 fL (79-100) Mean Corpuscular Hemoglobin 25 pg (25-35) Mean Corpuscular Hemoglobin Concent 32 g/dL (31-37) Red Cell Distribution Width 23.8 % (11.5-14.5) Platelet Count 374 x10^3/uL (140-400) Neutrophils (%) (Auto) 84 % (31-73) Lymphocytes (%) (Auto) 6 % (24-48) Monocytes (%) (Auto) 7 % (0-9) Eosinophils (%) (Auto) 2 % (0-3) Basophils (%) (Auto) 1 % (0-3) Neutrophils # (Auto) 12.6 x10^3uL (1.8-7.7) Lymphocytes # (Auto) 1.0 x10^3/uL (1.0-4.8) Monocytes # (Auto) 1.0 x10^3/uL (0.0-1.1) Eosinophils # (Auto) 0.2 x10^3/uL (0.0-0.7) Basophils # (Auto) 0.1 x10^3/uL (0.0-0.2) Test 01/04/19 11:54 Glucose (Fingerstick) 308 mg/dL (70-99) Comment Review of Relevant I have reviewed the following items abdifatah (where applicable) has been applied. Labs Laboratory Tests Test 01/02/19 18:07 01/03/19 00:04 01/03/19 05:50 01/03/19 05:51 Glucose (Fingerstick) 327 mg/dL (70-99) 248 mg/dL (70-99) 297 mg/dL (70-99) White Blood Count 17.4 x10^3/uL (4.0-11.0) Red Blood Count 3.19 x10^6/uL (3.50-5.40) Hemoglobin 7.8 g/dL (12.0-15.5) Hematocrit 24.7 % (36.0-47.0) Mean Corpuscular Volume 78 fL (79-100) Mean Corpuscular Hemoglobin 25 pg (25-35) Mean Corpuscular Hemoglobin Concent 32 g/dL (31-37) Red Cell Distribution Width 23.3 % (11.5-14.5) Platelet Count 375 x10^3/uL (140-400) Neutrophils (%) (Auto) 87 % (31-73) Lymphocytes (%) (Auto) 5 % (24-48) Monocytes (%) (Auto) 6 % (0-9) Eosinophils (%) (Auto) 1 % (0-3) Basophils (%) (Auto) 1 % (0-3) Neutrophils # (Auto) 15.2 x10^3uL (1.8-7.7) Lymphocytes # (Auto) 0.8 x10^3/uL (1.0-4.8) Monocytes # (Auto) 1.0 x10^3/uL (0.0-1.1) Eosinophils # (Auto) 0.2 x10^3/uL (0.0-0.7) Basophils # (Auto) 0.2 x10^3/uL (0.0-0.2) Sodium Level 144 mmol/L (136-145) Potassium Level 4.3 mmol/L (3.5-5.1) Chloride Level 106 mmol/L (98-107) Carbon Dioxide Level 32 mmol/L (21-32) Anion Gap 6 (6-14) Blood Urea Nitrogen 25 mg/dL (7-20) Creatinine 0.7 mg/dL (0.6-1.0) Estimated GFR (Cockcroft-Gault) 98.7 BUN/Creatinine Ratio 36 (6-20) Glucose Level 387 mg/dL (70-99) Calcium Level 9.2 mg/dL (8.5-10.1) Phosphorus Level 3.4 mg/dL (2.6-4.7) Magnesium Level 2.0 mg/dL (1.8-2.4) Total Bilirubin 0.3 mg/dL (0.2-1.0) Aspartate Amino Transf (AST/SGOT) 35 U/L (15-37) Alanine Aminotransferase (ALT/SGPT) 44 U/L (14-59) Alkaline Phosphatase 95 U/L (46-116) Total Protein 6.1 g/dL (6.4-8.2) Albumin 1.9 g/dL (3.4-5.0) Albumin/Globulin Ratio 0.5 (1.0-1.7) Test 01/03/19 12:00 01/03/19 18:15 01/04/19 00:05 01/04/19 06:00 Glucose (Fingerstick) 302 mg/dL (70-99) 273 mg/dL (70-99) 270 mg/dL (70-99) White Blood Count 15.0 x10^3/uL (4.0-11.0) Red Blood Count 3.31 x10^6/uL (3.50-5.40) Hemoglobin 8.3 g/dL (12.0-15.5) Hematocrit 25.6 % (36.0-47.0) Mean Corpuscular Volume 77 fL (79-100) Mean Corpuscular Hemoglobin 25 pg (25-35) Mean Corpuscular Hemoglobin Concent 32 g/dL (31-37) Red Cell Distribution Width 23.8 % (11.5-14.5) Platelet Count 374 x10^3/uL (140-400) Neutrophils (%) (Auto) 84 % (31-73) Lymphocytes (%) (Auto) 6 % (24-48) Monocytes (%) (Auto) 7 % (0-9) Eosinophils (%) (Auto) 2 % (0-3) Basophils (%) (Auto) 1 % (0-3) Neutrophils # (Auto) 12.6 x10^3uL (1.8-7.7) Lymphocytes # (Auto) 1.0 x10^3/uL (1.0-4.8) Monocytes # (Auto) 1.0 x10^3/uL (0.0-1.1) Eosinophils # (Auto) 0.2 x10^3/uL (0.0-0.7) Basophils # (Auto) 0.1 x10^3/uL (0.0-0.2) Test 01/04/19 06:10 01/04/19 11:54 Glucose (Fingerstick) 277 mg/dL (70-99) 308 mg/dL (70-99) Laboratory Tests Test 01/03/19 18:15 01/04/19 00:05 01/04/19 06:00 01/04/19 06:10 Glucose (Fingerstick) 273 mg/dL (70-99) 270 mg/dL (70-99) 277 mg/dL (70-99) White Blood Count 15.0 x10^3/uL (4.0-11.0) Red Blood Count 3.31 x10^6/uL (3.50-5.40) Hemoglobin 8.3 g/dL (12.0-15.5) Hematocrit 25.6 % (36.0-47.0) Mean Corpuscular Volume 77 fL (79-100) Mean Corpuscular Hemoglobin 25 pg (25-35) Mean Corpuscular Hemoglobin Concent 32 g/dL (31-37) Red Cell Distribution Width 23.8 % (11.5-14.5) Platelet Count 374 x10^3/uL (140-400) Neutrophils (%) (Auto) 84 % (31-73) Lymphocytes (%) (Auto) 6 % (24-48) Monocytes (%) (Auto) 7 % (0-9) Eosinophils (%) (Auto) 2 % (0-3) Basophils (%) (Auto) 1 % (0-3) Neutrophils # (Auto) 12.6 x10^3uL (1.8-7.7) Lymphocytes # (Auto) 1.0 x10^3/uL (1.0-4.8) Monocytes # (Auto) 1.0 x10^3/uL (0.0-1.1) Eosinophils # (Auto) 0.2 x10^3/uL (0.0-0.7) Basophils # (Auto) 0.1 x10^3/uL (0.0-0.2) Test 01/04/19 11:54 Glucose (Fingerstick) 308 mg/dL (70-99) Microbiology 01/01/19 Blood Culture - Preliminary, Resulted NO GROWTH AFTER 3 DAYS 12/25/18 - Final, Complete 12/25/18 - Final, Complete 12/25/18 - Final, Complete 12/25/18 - Final, Complete 12/25/18 Gram Stain Evaluation - Final, Complete 12/25/18 Sputum Culture - Final, Complete 12/25/18 Sputum Result 1 - Final, Complete Medications Current Medications Sodium Chloride 1,000 ml @ 1,000 mls/hr 1X ONCE IV Last administered on at 13:52; Start 12/14/18 at 13:30; Stop 12/14/18 at 14:29; Status DC Amlodipine Besylate (Norvasc) 10 mg DAILY PO Last administered on 12/26/18 10: 01; Start 12/14/18 at 17:00 Chlorhexidine Gluconate (Peridex) 15 ml BID MM Last administered on 01/04/19 08:49; Start 12/14/18 at 21:00 Non-Formulary Medication (Albuterol Sulfate (Ventolin Hfa Inhaler)) 2 puff Q4HRS INH ; Start 12/14/18 at 20:00; Status UNV Ascorbic Acid (Vitamin C) 500 mg DAILY PO Last administered on 12/22/18 10:30; Start 12/14/18 at 17:00 Duloxetine HCl (Cymbalta) 90 mg DAILY PO Last administered on 12/22/18 10:30; Start 12/14/18 at 17:00 Ferrous Sulfate (Feosol) 325 mg DAILYWBKFT PO Last administered on 12/22/18 10: 30; Start 12/14/18 at 17:00 Losartan Potassium (Cozaar) 100 mg DAILY PO Last administered on 12/22/18 10:29 ; Start 12/14/18 at 17:00 Memantine (Namenda) 10 mg BID PO Last administered on 12/26/18 21:25; Start at 21:00 Pantoprazole Sodium (Protonix) 40 mg DAILYAC PO Last administered on 12/22/18 05:28; Start 12/14/18 at 17:00; Stop 12/24/18 at 09:25; Status DC Ropinirole HCl (Requip) 3 mg QHS PO Last administered on 12/26/18 21:25; Start 12/14/18 at 21:00 Spironolactone (Aldactone) 25 mg DAILY PO Last administered on 12/26/18 10:42 ; Start 12/14/18 at 17:00 Albuterol Sulfate (Ventolin Neb Soln) 2.5 mg Q4HRS NEB Last administered on 06:52; Start 12/14/18 at 20:00; Stop 01/02/19 at 07:24; Status DC Sodium Chloride 1,000 ml @ 80 mls/hr [id number] IV Last administered on 2/7/19at 15:25; Start 12/14/18 at 17:15; Stop 12/23/18 at 21:59; Status DC Acetaminophen (Tylenol) 650 mg PRN Q6HRS PRN PO Pain Last administered on at 21:27; Start 12/15/18 at 04:45; Stop 12/26/18 at 21:07; Status DC Polyethylene Glycol (miraLAX Powder BULK BOTTLE) 238 gm 1X ONCE PO Last administered on 12/15/18at 12:48; Start 12/15/18 at 12:00; Stop 12/15/18 at 12:01 ; Status DC Ondansetron HCl (Zofran) 4 mg PRN Q6HRS PRN IV NAUSEA/VOMITING; Start 12/16/18 at 07:00; Stop 12/17/18 at 06:59; Status DC Fentanyl Citrate (Fentanyl 2ml Vial) 25 mcg PRN Q5MIN PRN IV MILD PAIN; Start 12/16/18 at 07:00; Stop 12/16/18 at 16:33; Status DC Fentanyl Citrate (Fentanyl 2ml Vial) 50 mcg PRN Q5MIN PRN IV MODERATE TO SEVERE PAIN; Start 12/16/18 at 07:00; Stop 12/16/18 at 16:33; Status DC Morphine Sulfate (Morphine Sulfate) 1 mg PRN Q10MIN PRN IV SEVERE PAIN; Start 12/16/18 at 07:00; Stop 12/17/18 at 06:59; Status DC Ringer's Solution 1,000 ml @ 30 mls/hr Q24H IV Last administered on 12/16/18at 13:00; Start 12/16/18 at 07:00; Stop 12/16/18 at 18:59; Status DC Lidocaine HCl (Xylocaine-Mpf 1% 2ml Vial) 2 ml PRN 1X PRN ID IV START; Start at 07:00; Stop 12/17/18 at 06:59; Status DC Hydromorphone HCl (Dilaudid) 0.5 mg PRN Q10MIN PRN IV SEV PAIN, Second choice; Start 12/16/18 at 07:00; Stop 12/17/18 at 06:59; Status DC Prochlorperazine Edisylate (Compazine) 5 mg PACU PRN PRN IV NAUSEA, MRX1; Start 12/16/18 at 07:00; Stop 12/17/18 at 06:59; Status DC Midazolam HCl (Versed) 2 mg PRN 1X PRN IV PRIOR TO PROCEDURE; Start 12/16/18 at 07:15; Stop 12/17/18 at 07:14; Status DC Fentanyl Citrate (Fentanyl 2ml Vial) 25 mcg PRN Q5MIN PRN IV X 2 DOSES FOR PAIN ; Start 12/16/18 at 07:15; Stop 12/16/18 at 16:33; Status DC Fentanyl Citrate (Fentanyl 2ml Vial) 50 mcg PRN Q5MIN PRN IV X 2 DOSES FOR PAIN ; Start 12/16/18 at 07:15; Stop 12/16/18 at 16:34; Status DC Ringer's Solution 1,000 ml @ 125 mls/hr Q8H IV ; Start 12/16/18 at 07:13; Stop 12/16/18 at 19:12; Status DC Lidocaine HCl (Xylocaine-Mpf 1% 2ml Vial) 2 ml 1X PRN PRN ID IV START; Start at 07:15; Stop 12/17/18 at 07:14; Status DC Propofol 40 ml @ As Directed STK-MED ONCE IV ; Start 12/16/18 at 13:58; Stop at 14:00; Status DC Prochlorperazine Edisylate (Compazine) 5 mg PACU PRN PRN IV NAUSEA, MRX1; Start 12/17/18 at 07:00; Stop 12/18/18 at 06:59; Status DC Hydromorphone HCl (Dilaudid) 0.5 mg PRN Q10MIN PRN IV SEV PAIN, Second choice; Start 12/17/18 at 07:00; Stop 12/18/18 at 06:59; Status DC Lidocaine HCl (Xylocaine-Mpf 1% 2ml Vial) 2 ml PRN 1X PRN ID IV START; Start at 07:00; Stop 12/18/18 at 06:59; Status DC Ringer's Solution 1,000 ml @ 30 mls/hr Q24H IV Last administered on 12/17/18at 10:34; Start 12/17/18 at 07:00; Stop 12/17/18 at 18:59; Status DC Morphine Sulfate (Morphine Sulfate) 1 mg PRN Q10MIN PRN IV SEVERE PAIN; Start 12/17/18 at 07:00; Stop 12/18/18 at 06:59; Status DC Fentanyl Citrate (Fentanyl 2ml Vial) 50 mcg PRN Q5MIN PRN IV MODERATE TO SEVERE PAIN Last administered on 12/17/18at 11:13; Start 12/17/18 at 07:00; Stop at 06:59; Status DC Fentanyl Citrate (Fentanyl 2ml Vial) 25 mcg PRN Q5MIN PRN IV MILD PAIN; Start 12/17/18 at 07:00; Stop 12/18/18 at 06:59; Status DC Ondansetron HCl (Zofran) 4 mg PRN Q6HRS PRN IV NAUSEA/VOMITING; Start 12/17/18 at 07:00; Stop 12/18/18 at 06:59; Status DC Propofol 20 ml @ As Directed STK-MED ONCE IV ; Start 12/17/18 at 07:21; Stop 12/17 at 07:23; Status DC Albuterol Sulfate (Ventolin Neb Soln) 2.5 mg 1X ONCE NEB ; Start 12/17/18 at 07: 30; Stop 12/17/18 at 07:31; Status DC Lidocaine HCl (Lidocaine Pf 2% Vial) 5 ml STK-MED ONCE .ROUTE ; Start 12/17/18 at 07:21; Stop 12/17/18 at 07:23; Status DC Succinylcholine Chloride (Anectine) 200 mg STK-MED ONCE .ROUTE ; Start 12/17/18 at 07:21; Stop 12/17/18 at 07:23; Status DC Rocuronium Dale (Zemuron) 50 mg STK-MED ONCE .ROUTE ; Start 12/17/18 at 07:21 ; Stop 12/17/18 at 07:23; Status DC Fentanyl Citrate (Fentanyl 2ml Vial) 100 mcg STK-MED ONCE .ROUTE ; Start at 07:21; Stop 12/17/18 at 07:24; Status DC Cefazolin Sodium/ Dextrose 50 ml @ 100 mls/hr 1X ONCE IV Last administered on 12/17/18at 08:07; Start 12/17/18 at 07:45; Stop 12/17/18 at 08:18; Status DC Bupivacaine HCl/ Epinephrine Bitart (Sensorcain-Mpf Epi 0.5%-[id number]) 30 ml STK -MED ONCE .ROUTE Last administered on 12/17/18at 08:34; Start 12/17/18 at 07:46; Stop 12/17/18 at 07:49; Status DC Neomycin/ Polymyxin/ Bacitracin (Triple Antibiotic Ointment) 1 pkt STK-MED ONCE TP Last administered on 12/17/18at 10:07; Start 12/17/18 at 07:46; Stop 12/17/18 at 07:49; Status DC Neomycin/ Polymyxin/ Bacitracin (Triple Antibiotic Ointment) 1 pkt STK-MED ONCE TP Last administered on 12/17/18at 10:07; Start 12/17/18 at 07:46; Stop 12/17/18 at 07:49; Status DC Neomycin/ Polymyxin/ Bacitracin (Triple Antibiotic Ointment) 1 pkt STK-MED ONCE TP ; Start 12/17/18 at 07:47; Stop 12/17/18 at 07:49; Status DC Dexamethasone Sodium Phosphate (Decadron) 20 mg STK-MED ONCE .ROUTE ; Start 12/17 at 07:54; Stop 12/17/18 at 07:56; Status DC Hydrocortisone Sodium Succinate (Solu-CORTEF) 100 mg STK-MED ONCE .ROUTE ; Start 12/17/18 at 07:54; Stop 12/17/18 at 07:56; Status DC Desflurane (Suprane) 90 ml STK-MED ONCE IH ; Start 12/17/18 at 07:54; Stop at 07:56; Status DC Neostigmine Methylsulfate (Bloxiverz) 10 mg STK-MED ONCE .ROUTE ; Start 12/17/18 at 08:21; Stop 12/17/18 at 08:24; Status DC Glycopyrrolate (Robinul) 1 mg STK-MED ONCE .ROUTE ; Start 12/17/18 at 08:21; Stop 12/17/18 at 08:24; Status DC Phenylephrine HCl (Bogdan-Synephrine Inj) 10 mg STK-MED ONCE .ROUTE ; Start at 08:23; Stop 12/17/18 at 08:26; Status DC Desflurane (Suprane) 60 ml STK-MED ONCE IH ; Start 12/17/18 at 09:23; Stop at 09:26; Status DC Bupivacaine HCl/ Epinephrine Bitart (Sensorcain-Mpf Epi 0.5%-1:[id number]) 30 ml STK -MED ONCE .ROUTE Last administered on 12/17/18at 10:06; Start 12/17/18 at 09:41; Stop 12/17/18 at 09:43; Status DC Morphine Sulfate (Morphine Sulfate) 2 mg PRN Q2HR PRN IV PAIN Last administered on 12/25/18 09:26; Start 12/17/18 at 10:15; Stop 12/25/18 at 17:54; Status DC Ketorolac Tromethamine (Toradol 15mg Vial) 15 mg Q6HRS IV Last administered on 12/18/18 05:39; Start 12/17/18 at 12:00; Stop 12/18/18 at 10:00; Status DC Artificial Tears (Artificial Tears) 1 drop PRN Q15MIN PRN OU DRY EYE Last administered on 12/20/18 21:28; Start 12/18/18 at 08:00 Docusate Sodium (Colace) 100 mg DAILY PO Last administered on 12/26/18 10:01; Start 12/18/18 at 10:00 Throat Lozenges (Cepacol Sore Throat Lozenge) 1 kristyn PRN Q2HRS PRN PO SORE THROAT Last administered on 01/04/19 11:37; Start 12/18/18 at 14:00 Enoxaparin Sodium (Lovenox 40mg Syringe) 40 mg Q24H SQ Last administered on 08:52; Start 12/19/18 at 09:00 Ondansetron HCl (Zofran) 4 mg PRN Q6HRS PRN IV NAUSEA/VOMITING Last administered on 01/01/19 14:46; Start 12/19/18 at 11:30 Insulin Human Lispro (HumaLOG) 0-5 UNITS TIDWMEALS SQ Last administered on 12/30 18:23; Start 12/19/18 at 17:00; Stop 12/31/18 at 00:05; Status DC Dextrose (Dextrose 50%-Water Syringe) 12.5 gm PRN Q15MIN PRN IV SEE COMMENTS; Start 12/19/18 at 16:45 Levofloxacin/ Dextrose 100 ml @ 100 mls/hr 1X ONCE IV Last administered on 12/19/18at 20:56; Start 12/19/18 at 21:00; Stop 12/19/18 at 21:59; Status DC Cefepime HCl (Maxipime) 2 gm Q12HR IVP Last administered on 12/29/18 10:02; Start 12/21/18 at 10:00; Stop 12/29/18 at 10:37; Status DC Sodium Chloride 1,000 ml @ 125 mls/hr 1X ONCE IV Last administered on 10:43; Start 12/21/18 at 09:45; Stop 12/21/18 at 17:44; Status DC Calcium Carbonate/ Glycine (Tums) 500 mg PRN AFTMEALHC PRN PO INDIGESTION Last administered on 12/21/18 13:10; Start 12/21/18 at 12:15 Lorazepam (Ativan) 1 mg 1X ONCE IV Last administered on 12/21/18 17:50; Start 12/21/18 at 17:30; Stop 12/21/18 at 17:31; Status DC Albuterol Sulfate (Ventolin Neb Soln) 2.5 mg PRN Q2HRS PRN NEB SHORTNESS OF BREATH Last administered on 12/26/18at 10:26; Start 12/21/18 at 17:30 Nicotine (Nicoderm Cq 14mg) 1 patch PRN DAILY PRN TD SMOKING CESSATION Last administered on 12/26/18 09:59; Start 12/21/18 at 19:30 Lorazepam (Ativan) 1 mg 1X ONCE IV Last administered on 12/21/18 23:45; Start 12/21/18 at 23:45; Stop 12/21/18 at 23:46; Status DC Lorazepam (Ativan) 1 mg PRN Q4HRS PRN IV ANXIETY / AGITATION Last administered on 12/22/18at 11:15; Start 12/21/18 at 23:30; Stop 12/22/18 at 14:42; Status DC Sodium Chloride 1,000 ml @ 250 mls/hr 1X ONCE IV Last administered on 09:15; Start 12/22/18 at 09:15; Stop 12/22/18 at 13:14; Status DC Lidocaine/Sodium Bicarbonate (Buffered Lidocaine 1%) 3 ml STK-MED ONCE .ROUTE ; Start 12/23/18 at 10:33; Stop 12/23/18 at 10:35; Status DC Lidocaine/Sodium Bicarbonate (Buffered Lidocaine 1%) 3 ml 1X ONCE INJ Last administered on 12/23/18at 11:24; Start 12/23/18 at 11:00; Stop 12/23/18 at 11:10; Status DC Info (Tpn Per Pharmacy) 1 each PRN DAILY PRN MC SEE COMMENTS Last administered on 01/04/19 13:56; Start 12/23/18 at 14:00 Sodium Chloride 90 meq/Potassium Chloride 50 meq/ Potassium Phosphate 20.4 mmol/ Magnesium Sulfate 18 meq/ Calcium Gluconate 5 meq/ Multivitamins 10 ml/Chromium / Copper/Manganese/ Seleni/Zn 1 ml/ Total Parenteral Nutrition/Amino Acids/ Dextrose/ Fat Emulsion Intravenous 1,512 ml @ 63 mls/hr TPN CONT IV Last administered on 12/23/18 21:37; Start 12/23/18 at 22:00; Stop 12/24/18 at 21:59; Status DC Alprazolam (Xanax) 0.25 mg PRN BID PRN PO ANXIETY / AGITATION Last administered on 12/25/18 09:25; Start 12/23/18 at 23:00; Stop 12/25/18 at 17:54; Status DC Lorazepam (Ativan) 1 mg PRN Q4HRS PRN IV ANXIETY / AGITATION Last administered on 12/24/18at 09:21; Start 12/24/18 at 08:45; Stop 12/24/18 at 10:19; Status DC Pantoprazole Sodium (PROTONIX VIAL for IV PUSH) 40 mg DAILYAC IVP Last administered on 01/04/19at 08:52; Start 12/24/18 at 09:30 Lorazepam (Ativan) 0.5 mg PRN Q4HRS PRN IV ANXIETY / AGITATION Last administered on 12/25/18at 04:47; Start 12/24/18 at 10:30; Stop 12/25/18 at 10:22; Status DC Sodium Chloride 45 meq/Sodium Acetate 45 meq/ Potassium Chloride 50 meq/ Potassium Phosphate 20.4 mmol/Magnesium Sulfate 18 meq/ Calcium Gluconate 5 meq / Multivitamins 10 ml/Chromium/ Copper/Manganese/ Seleni/Zn 1 ml/ Total Parenteral Nutrition/Amino Acids/Dextrose/ Fat Emuls... 1,512 ml @ 63 mls/hr TPN CONT IV Last administered on 12/24/18at 21:57; Start 12/24/18 at 22:00; Stop 12/25/18 at 21:59; Status DC Phenyleph/Shark Oil/Min Oil/Petrol (Preparation H) 1 ranjith PRN Q4HRS PRN RC RECTAL PAIN; Start 12/24/18 at 12:45; Stop 12/25/18 at 20:20; Status DC Sodium Chloride 45 meq/Sodium Acetate 45 meq/ Potassium Chloride 50 meq/ Potassium Phosphate 20.4 mmol/Magnesium Sulfate 18 meq/ Calcium Gluconate 5 meq / Multivitamins 10 ml/Chromium/ Copper/Manganese/ Seleni/Zn 1 ml/ Total Parenteral Nutrition/Amino Acids/Dextrose/ Fat Emuls... 1,512 ml @ 63 mls/hr TPN CONT IV Last administered on 12/26/18at 00:34; Start 12/25/18 at 22:00; Stop 12/26/18 at 21:59; Status DC Neomycin/ Polymyxin/ Bacitracin (Triple Antibiotic Ointment) 1 pkt PRN TID PRN TP skin around rectum, post op Last administered on 12/26/18at 09:58; Start at 14:30 Alprazolam (Xanax) 0.25 mg PRN Q8HRS PRN PO ANXIETY / AGITATION Last administered on 01/03/19at 23:47; Start 12/25/18 at 18:00 Morphine Sulfate (Morphine Sulfate) 2 mg PRN Q6HRS PRN IV PAIN Last administered on 12/29/18at 21:47; Start 12/25/18 at 18:00; Stop 12/30/18 at 03:17 ; Status DC Guaifenesin (Mucinex) 600 mg BID PO Last administered on 12/26/18at 21:26; Start 12/26/18 at 11:00 Guaifenesin (Mucinex) 600 mg BID PO ; Start 12/26/18 at 11:00; Status UNV Guaifenesin/ Codeine Phosphate (Robitussin Ac) 5 ml PRN Q6HRS PRN PO COUGH Last administered on 12/26/18at 10:41; Start 12/26/18 at 10:30 Sodium Acetate 90 meq/Potassium Chloride 50 meq/ Potassium Phosphate 13.6 mmol/ Magnesium Sulfate 18 meq/ Calcium Gluconate 5 meq/ Multivitamins 10 ml/Chromium / Copper/Manganese/ Seleni/Zn 1 ml/ Total Parenteral Nutrition/Amino Acids/ Dextrose/ Fat Emulsion Intravenous 1,512 ml @ 63 mls/hr TPN CONT IV Last administered on 12/26/18at 21:37; Start 12/26/18 at 22:00; Stop 12/28/18 at 01:28 ; Status DC Benzocaine (Hurricaine One) 1 spray 1X ONCE MM ; Start 12/26/18 at 19:15; Stop 12/26/18 at 19:16; Status DC Acetaminophen (Tylenol) 650 mg PRN Q6HRS PRN PO MILD PAIN / TEMP Last administered on 12/27/18at 04:39; Start 12/26/18 at 21:00 Benzocaine (Hurricaine One) 1 spray 1X ONCE MM Last administered on 12/27/18at 09:00; Start 12/27/18 at 09:15; Stop 12/27/18 at 09:16; Status DC Sodium Acetate 90 meq/Potassium Chloride 50 meq/ Potassium Phosphate 13.6 mmol/ Magnesium Sulfate 15 meq/ Calcium Gluconate 5 meq/ Multivitamins 10 ml/Chromium / Copper/Manganese/ Seleni/Zn 1 ml/ Total Parenteral Nutrition/Amino Acids/ Dextrose/ Fat Emulsion Intravenous 1,512 ml @ 63 mls/hr TPN CONT IV ; Start at 22:00; Stop 12/28/18 at 21:59; Status Cancel Sodium Acetate 90 meq/Potassium Chloride 50 meq/ Potassium Phosphate 13.6 mmol/ Magnesium Sulfate 15 meq/ Calcium Gluconate 5 meq/ Multivitamins 10 ml/Chromium / Copper/Manganese/ Seleni/Zn 1 ml/ Total Parenteral Nutrition/Amino Acids/ Dextrose/ Fat Emulsion Intravenous 1,512 ml @ 63 mls/hr TPN CONT IV ; Start at 22:00; Stop 12/28/18 at 21:59; Status DC Lidocaine/Sodium Bicarbonate (Buffered Lidocaine 1%) 3 ml 1X ONCE INJ ; Start 12/28/18 at 09:00; Stop 12/28/18 at 09:01; Status Cancel Benzocaine (Hurricaine One) 1 spray 1X ONCE MM Last administered on 12/28/18at 09:32; Start 12/28/18 at 09:30; Stop 12/28/18 at 09:33; Status DC Sodium Acetate 90 meq/Potassium Chloride 50 meq/ Potassium Phosphate 13.6 mmol/ Magnesium Sulfate 15 meq/ Calcium Gluconate 5 meq/ Multivitamins 10 ml/Chromium / Copper/Manganese/ Seleni/Zn 1 ml/ Total Parenteral Nutrition/Amino Acids/ Dextrose/ Fat Emulsion Intravenous 1,512 ml @ 63 mls/hr TPN CONT IV Last administered on 12/28/18at 22:06; Start 12/28/18 at 22:00; Stop 12/29/18 at 21:59 ; Status DC Iohexol (Omnipaque 300 Mg/ml) 400 ml 1X ONCE PO Last administered on at 08:15; Start 12/29/18 at 06:45; Stop 12/29/18 at 06:46; Status DC Info (CONTRAST GIVEN -- Rx MONITORING) 1 each PRN DAILY PRN MC SEE COMMENTS; Start 12/29/18 at 06:45; Stop 12/31/18 at 06:44; Status DC Iohexol (Omnipaque 300 Mg/ml) 400 ml 1X ONCE PO ; Start 12/29/18 at 07:00; Stop 12/29/18 at 07:03; Status DC Info (CONTRAST GIVEN -- Rx MONITORING) 1 each PRN DAILY PRN MC SEE COMMENTS; Start 12/29/18 at 07:15; Stop 12/31/18 at 07:14; Status DC Meropenem 500 mg/ Sodium Chloride 50 ml @ 100 mls/hr Q6HRS IV Last administered on 01/04/19at 11:38; Start 12/29/18 at 12:00 Multi-Ingredient Ointment (Analgesic [place]) 1 ranjith PRN QID PRN TP MUSCLE PAIN Last administered on 12/29/18at 14:40; Start 12/29/18 at 13:00 Sodium Acetate 90 meq/Potassium Chloride 50 meq/ Potassium Phosphate 13.6 mmol/ Magnesium Sulfate 15 meq/ Calcium Gluconate 5 meq/ Multivitamins 10 ml/Chromium / Copper/Manganese/ Seleni/Zn 1 ml/ Total Parenteral Nutrition/Amino Acids/ Dextrose/ Fat Emulsion Intravenous 1,512 ml @ 63 mls/hr TPN CONT IV Last administered on 12/29/18at 21:40; Start 12/29/18 at 22:00; Stop 12/30/18 at 21:59 ; Status DC Morphine Sulfate (Morphine Sulfate) 2 mg PRN Q4HRS PRN IV SEVERE PAIN Last administered on 12/30/18at 19:50; Start 12/30/18 at 03:30; Stop 12/30/18 at 21:33 ; Status DC Propofol 20 ml @ As Directed STK-MED ONCE IV ; Start 12/30/18 at 12:51; Stop at 12:52; Status DC Dexamethasone Sodium Phosphate (Decadron) 20 mg STK-MED ONCE .ROUTE ; Start at 12:51; Stop 12/30/18 at 12:52; Status DC Lidocaine HCl (Lidocaine Pf 2% Vial) 5 ml STK-MED ONCE .ROUTE ; Start 12/30/18 at 12:51; Stop 12/30/18 at 12:52; Status DC Ondansetron HCl (Zofran) 4 mg STK-MED ONCE .ROUTE ; Start 12/30/18 at 12:51; Stop 12/30/18 at 12:52; Status DC Rocuronium [place] (Zemuron) 50 mg STK-MED ONCE .ROUTE ; Start 12/30/18 at 12:51 ; Stop 12/30/18 at 12:52; Status DC Succinylcholine Chloride (Anectine) 200 mg STK-MED ONCE .ROUTE ; Start 12/30/18 at 12:51; Stop 12/30/18 at 12:52; Status DC Fentanyl Citrate (Fentanyl 5ml Vial) 250 mcg STK-MED ONCE .ROUTE ; Start at 13:49; Stop 12/30/18 at 13:50; Status DC Sodium Chloride 90 meq/Potassium Chloride 50 meq/ Potassium Phosphate 13.6 mmol/ Magnesium Sulfate 15 meq/ Multivitamins 10 ml/Chromium/ Copper/Manganese/ Seleni /Zn 1 ml/ Total Parenteral Nutrition/Amino Acids/Dextrose/ Fat Emulsion Intravenous 1,512 ml @ 63 mls/hr TPN CONT IV Last administered on 12/30/18at 23:43; Start 12/30/18 at 22:00; Stop 12/31/18 at 21:59; Status DC Vasopressin (Vasostrict) 20 unit STK-MED ONCE .ROUTE ; Start 12/30/18 at 15:00; Stop 12/30/18 at 15:01; Status DC Sodium Chloride (SODIUM CHLORIDE 20ml) 20 ml STK-MED ONCE IJ ; Start 12/30/18 at 15:01; Stop 12/30/18 at 15:02; Status DC Albumin Human 500 ml @ As Directed STK-MED ONCE IV ; Start 12/30/18 at 15:01; Stop 12/30/18 at 15:02; Status DC Glycopyrrolate (Robinul) 1 mg STK-MED ONCE .ROUTE ; Start 12/30/18 at 15:21; Stop 12/30/18 at 15:22; Status DC Neostigmine Methylsulfate (Bloxiverz) 10 mg STK-MED ONCE .ROUTE ; Start at 15:21; Stop 12/30/18 at 15:22; Status DC Albuterol/ Ipratropium (Duoneb) 3 ml STK-MED ONCE .ROUTE ; Start 12/30/18 at 15: 45; Stop 12/30/18 at 15:46; Status DC Fentanyl Citrate (Fentanyl 2ml Vial) 100 mcg STK-MED ONCE .ROUTE ; Start at 16:56; Stop 12/30/18 at 16:57; Status DC Ondansetron HCl (Zofran) 4 mg PRN Q6HRS PRN IV NAUSEA/VOMITING; Start 12/30/18 at 17:15; Stop 12/30/18 at 21:35; Status DC Fentanyl Citrate (Fentanyl 2ml Vial) 25 mcg PRN Q5MIN PRN IV MILD PAIN Last administered on 12/30/18at 17:15; Start 12/30/18 at 17:15; Stop 12/30/18 at 21:35 ; Status DC Fentanyl Citrate (Fentanyl 2ml Vial) 50 mcg PRN Q5MIN PRN IV MODERATE TO SEVERE PAIN Last administered on 12/30/18at 17:57; Start 12/30/18 at 17:15; Stop 12/30/18 at 21:35; Status DC Morphine Sulfate (Morphine Sulfate) 1 mg PRN Q10MIN PRN IV SEVERE PAIN; Start 12/30/18 at 17:15; Stop 12/31/18 at 17:14; Status DC Ringer's Solution 1,000 ml @ 30 mls/hr Q24H IV Last administered on 12/30/18at 18:09; Start 12/30/18 at 17:10; Stop 12/30/18 at 21:33; Status DC Lidocaine HCl (Xylocaine-Mpf 1% 2ml Vial) 2 ml 1X PRN PRN ID IV START; Start at 17:15; Stop 12/30/18 at 21:35; Status DC Hydromorphone HCl (Dilaudid) 0.5 mg PRN Q10MIN PRN IV SEV PAIN, Second choice; Start 12/30/18 at 17:15; Stop 12/30/18 at 21:35; Status DC Prochlorperazine Edisylate (Compazine) 5 mg PACU PRN PRN IV NAUSEA, MRX1; Start 12/30/18 at 17:15; Stop 12/30/18 at 21:35; Status DC Albumin Human 100 ml @ 100 mls/hr 1X ONCE IV Last administered on 12/30/18at 22:00; Start 12/30/18 at 22:00; Stop 12/30/18 at 22:59; Status DC Ringer's Solution 500 ml @ 500 mls/hr 1X ONCE IV Last administered on at 22:00; Start 12/30/18 at 22:00; Stop 12/30/18 at 22:59; Status DC Ringer's Solution 1,000 ml @ 100 mls/hr Q10H IV Last administered on at 00:58; Start 12/30/18 at 23:00; Stop 01/01/19 at 09:30; Status DC Hydromorphone HCl (Dilaudid) 0.5 mg PRN Q2HR PRN IV MODERATE PAIN Last administered on 01/04/19at 10:08; Start 12/30/18 at 21:30; Stop 01/04/19 at 15:05 ; Status DC Hydromorphone HCl (Dilaudid) 1 mg PRN Q2HR PRN IV SEVERE PAIN Last administered on 01/04/19at 04:51; Start 12/30/18 at 21:30; Stop 01/04/19 at 15:05 ; Status DC Insulin Human Lispro (HumaLOG) 0-5 UNITS Q6HRS SQ Last administered on at 12:27; Start 12/31/18 at 00:30 Sodium Chloride 90 meq/Potassium Chloride 30 meq/ Potassium Phosphate 13.6 mmol/ Magnesium Sulfate 15 meq/ Calcium Gluconate 5 meq/ Multivitamins 10 ml/Chromium / Copper/Manganese/ Seleni/Zn 1 ml/ Total Parenteral Nutrition/Amino Acids/ Dextrose/ Fat Emulsion Intravenous 1,512 ml @ 63 mls/hr TPN CONT IV Last administered on 12/31/18at 21:58; Start 12/31/18 at 22:00; Stop 01/01/19 at 21:59 ; Status DC Sodium Chloride 90 meq/Potassium Chloride 30 meq/ Potassium Phosphate 13.6 mmol/ Magnesium Sulfate 15 meq/ Calcium Gluconate 5 meq/ Multivitamins 10 ml/Chromium / Copper/Manganese/ Seleni/Zn 1 ml/ Total Parenteral Nutrition/Amino Acids/ Dextrose/ Fat Emulsion Intravenous 1,512 ml @ 63 mls/hr TPN CONT IV Last administered on 01/01/19at 21:09; Start 01/01/19 at 22:00; Stop 01/02/19 at 21:59 ; Status DC Vancomycin HCl (Vanco Per Pharmacy) 1 each PRN DAILY PRN MC SEE COMMENTS Last administered on 01/03/19at 10:18; Start 01/01/19 at 11:15; Stop 01/03/19 at 11:23 ; Status DC Vancomycin HCl 2 gm/Sodium Chloride 500 ml @ 250 mls/hr ONCE ONCE IV Last administered on 01/01/19at 12:28; Start 01/01/19 at 12:00; Stop 01/01/19 at 13:59 ; Status DC Vancomycin HCl 1.25 gm/Sodium Chloride 250 ml @ 166.667 mls/hr Q24H IV ; Start 01/01/19 at 12:00; Status Cancel Vancomycin HCl (Vancomycin Trough Level) 1 each 1X ONCE MC ; Start 01/03/19 at 11:30; Stop 01/03/19 at 11:31; Status Cancel Vancomycin HCl 1.25 gm/Sodium Chloride 250 ml @ 166.667 mls/hr Q24H IV Last administered on 01/02/19at 13:04; Start 01/02/19 at 12:00; Stop 01/03/19 at 11:23 ; Status DC Albuterol/ Ipratropium (Duoneb) 3 ml 1X ONCE NEB Last administered on at 08:19; Start 01/02/19 at 07:30; Stop 01/02/19 at 07:31; Status DC Albuterol/ Ipratropium (Duoneb) 3 ml Q4HRS NEB Last administered on 01/04/19at 15:46; Start 01/02/19 at 12:00 Furosemide (Lasix) 20 mg 1X ONCE IVP Last administered on 01/02/19at 07:36; Start 01/02/19 at 07:30; Stop 01/02/19 at 07:31; Status DC Sodium Chloride 90 meq/Potassium Chloride 30 meq/ Potassium Phosphate 13.6 mmol/ Magnesium Sulfate 15 meq/ Calcium Gluconate 5 meq/ Multivitamins 10 ml/Chromium / Copper/Manganese/ Seleni/Zn 1 ml/ Total Parenteral Nutrition/Amino Acids/ Dextrose/ Fat Emulsion Intravenous 1,512 ml @ 63 mls/hr TPN CONT IV Last administered on 01/02/19at 21:20; Start 01/02/19 at 22:00; Stop 01/03/19 at 21:59 ; Status DC Sodium Chloride 90 meq/Potassium Chloride 30 meq/ Potassium Phosphate 13.6 mmol/ Magnesium Sulfate 15 meq/ Multivitamins 10 ml/Chromium/ Copper/Manganese/ Seleni /Zn 1 ml/ Insulin Human Regular 10 unit/ Total Parenteral Nutrition/Amino Acids/ Dextrose/ Fat Emulsion Intravenous 1,512 ml @ 63 mls/hr TPN CONT IV Last administered on 01/03/19at 22:07; Start 01/03/19 at 22:00; Stop 01/04/19 at 21:59 Sodium Chloride 90 meq/Potassium Chloride 30 meq/ Potassium Phosphate 13.6 mmol/ Magnesium Sulfate 15 meq/ Multivitamins 10 ml/Chromium/ Copper/Manganese/ Seleni /Zn 1 ml/ Insulin Human Regular 10 unit/ Total Parenteral Nutrition/Amino Acids/ Dextrose/ Fat Emulsion Intravenous 1,512 ml @ 63 mls/hr TPN CONT IV ; Start at 22:00; Stop 01/05/19 at 21:59 Hydromorphone HCl (Dilaudid) 0.5 mg PRN Q6HRS PRN IV MODERATE PAIN; Start 01/04 at 15:15 Hydromorphone HCl (Dilaudid) 1 mg PRN Q6HRS PRN IV SEVERE PAIN; Start 01/04/19 at 15:15 Active Scripts Active Chlorhexidine Gluconate 473 Ml Mouthwash 473 Ml MM BID 7 Days Vitamin C (Ascorbate Calcium) 500 Mg Tablet 500 Mg PO DAILY 30 Days Slow Release Iron (Ferrous Sulfate) 250 Mg Tablet.er 250 Mg PO DAILY 30 Days Protonix (Pantoprazole Sodium) 40 Mg Granpkt.dr 40 Mg PO DAILY 30 Days Reported Alprazolam 0.25 Mg Tablet 0.25 Mg PO DAILY Metformin Hcl Er (Metformin Hcl) 500 Mg Tab.er.24h 1 Tab PO DAILY Namenda (Memantine Hcl) 10 Mg Tablet 1 Tab PO BID Losartan Potassium 100 Mg Tablet 100 Mg PO DAILY Spironolactone 25 Mg Tablet 1 Tab PO DAILY Ventolin Hfa Inhaler (Albuterol Sulfate) 18 Gm Hfa.aer.ad 2 Puff INH Q4HRS Cymbalta (Duloxetine Hcl) 20 Mg Capsule.dr 90 Mg PO DAILY Requip (Ropinirole Hcl) 1 Mg Tablet 3 Mg PO DAILY Amlodipine Besylate 10 Mg Tablet 10 Mg PO DAILY Vitals/I & O Vital Sign - Last 24 Hours 01/03/19 01/03/19 01/03/19 01/03/19 18:35 19:00 19:05 19:32 Temp 98.3 98.3 Pulse 77 Resp 18 20 B/P (MAP) 137/78 (97) Pulse Ox 100 94 O2 Delivery Nasal Cannula Nasal Cannula Nasal Cannula O2 Flow Rate 2.5 2.5 2.5 3.0 01/03/19 01/03/19 01/03/19 01/03/19 19:40 23:00 23:26 23:42 Temp 98.7 98.7 Pulse 89 Resp 18 20 B/P (MAP) 159/104 (122) Pulse Ox 96 O2 Delivery Nasal Cannula Nasal Cannula Nasal Cannula Nasal Cannula O2 Flow Rate 2.5 2.5 3.0 2.5 01/04/19 01/04/19 01/04/19 01/04/19 03:00 03:22 04:51 05:21 Temp 98.4 98.4 Pulse 89 Resp 18 20 18 B/P (MAP) 146/86 (106) Pulse Ox 97 O2 Delivery Nasal Cannula Nasal Cannula Nasal Cannula Nasal Cannula O2 Flow Rate 2.5 3.0 2.5 2.5 01/04/19 01/04/19 01/04/19 01/04/19 07:00 07:35 09:00 10:08 Temp 97.7 97.7 Pulse 85 85 Resp 18 B/P (MAP) 138/84 (102) 138/84 Pulse Ox 97 94 94 O2 Delivery Nasal Cannula Nasal Cannula Nasal Cannula O2 Flow Rate 2.0 3.0 3.0 01/04/19 01/04/19 01/04/19 01/04/19 11:00 11:15 11:25 15:00 Temp 97.7 97.4 97.7 97.4 Pulse 82 90 Resp 18 18 B/P (MAP) 136/91 (106) 135/77 (96) Pulse Ox 99 97 98 O2 Delivery Nasal Cannula Nasal Cannula Room Air Nasal Cannula O2 Flow Rate 2.0 3.0 2.0 01/04/19 15:47 Pulse Ox 97 O2 Delivery Nasal Cannula O2 Flow Rate 3.0 Intake and Output 01/03/19 01/03/19 01/04/19 15:00 23:00 07:00 Intake Total 630 ml Output Total 550 ml Balance -550 ml 630 ml RADMAES MÉNDEZ MD Jan 04, 2019 15:50
[2019-01-04] MEDS: ONDANSETRON PF 4 MG/2 ML VIAL. IV PRN (18:09)
[2019-01-04 19:00] VITALS: BP 141/87
[2019-01-04] MEDS: rOPINIRole 1 MG TABLET. PO SCH (21:00)
[2019-01-04] MEDS ORDERED: TOTAL PARENTERAL NUTRITION IV SCH ×10 (22:00)
[2019-01-04] MEDS ORDERED: DEXTROSE 70% IV SCH ×10 (22:00)
[2019-01-04] MEDS ORDERED: AMINO ACID IV SCH ×10 (22:00)
[2019-01-04] MEDS ORDERED: [UNRECOGNIZED DRUG - OTHER] IV SCH ×10 (22:00)
[2019-01-04 23:00] VITALS: BP 122/76
[2019-01-05] MEDS: MEROPENEM 500 MG in IV NORMAL SALINE 50ML 50 ML IV SCH ×5 (00:08→23:41)
[2019-01-05] MEDS: ONDANSETRON PF 4 MG/2 ML VIAL. IV PRN ×3 (01:43→17:30)
[2019-01-05] MEDS: HYDROmorphone 2 MG/ML VIAL IV PRN ×4 (02:18→22:23)
[2019-01-05 02:58] VITALS: BP 115/73
[2019-01-05] MEDS: IPRATRPIUM/ALBUTEROL 0.5/2.5MG 3 ML NEBU. NEB SCH ×6 (04:15→23:10)
[2019-01-05 06:26] LABS: BASO # 0.1 x10^3/uL (0.0-0.2); BASO % 1 % (0-3); EOS # 0.2 x10^3/uL (0.0-0.7); EOS % 1 % (0-3); LYMPH # 1.2 x10^3/uL (1.0-4.8); LYMPH % 9 % (24-48); MEAN CORPUSCULAR HEMOGLOBIN 25 pg (25-35); MEAN CORPUSCULAR HGB CONC 32 g/dL (31-37); MEAN CORPUSCULAR VOLUME 78 fL (79-100); MONO % 7 % (0-9); NEUT # 11.5 x10^3uL (1.8-7.7); NEUT % 83 % (31-73); PLATELET COUNT 324 x10^3/uL (140-400); RED BLOOD COUNT 3.21 x10^6/uL (3.50-5.40); RED CELL DISTRIBUTION WIDTH 24.2 % (11.5-14.5); WHITE BLOOD COUNT 13.9 x10^3/uL (4.0-11.0)
[2019-01-05] MEDS: INSULIN LISPRO 300 UNITS/3 ML INSULN.PEN. SQ SCH ×5 (06:26→23:48)
[2019-01-05 06:39] LABS: CALCIUM 8.5 mg/dL (8.5-10.1); CREATININE 0.7 mg/dL (0.6-1.0); GFR 98.7; MAGNESIUM 1.8 mg/dL (1.8-2.4); PHOSPHORUS 3.8 mg/dL (2.6-4.7); POTASSIUM 4.4 mmol/L (3.5-5.1)
[2019-01-05 07:00] VITALS: BP 136/64
[2019-01-05] MEDS: FERROUS SULFATE 325 MG TABLET. PO SCH (08:00)
[2019-01-05] MEDS: ENOXAPARIN 40 MG/0.4 ML SYRINGE. SQ SCH (08:07)
[2019-01-05] MEDS: CHLORHEXIDINE 0.12% 15 ML MOUTHWASH. MM SCH ×2 (08:07→21:11)
[2019-01-05] MEDS: NEOMY/BACITR/POLYMYXIN OINT PACKET. TP PRN (08:07)
[2019-01-05] MEDS: BENZOCAINE/MENTHOL LOZENGE. PO PRN ×2 (08:07→17:30)
[2019-01-05] MEDS: PANTOPRAZOLE IV PUSH 40 MG VIAL. IVP SCH (08:07)
--- NOTE | 2019-01-05 08:27 | PDOC ---
Infectious Disease Note Subjective Subjective NGT to suction Breathing ok - No SOA Denies N/V/F/C/Rash. + flatus O2 ROS ROS o/w neg Vital Sign Vital Signs Vital Signs Date Time Temp Pulse Resp B/P (MAP) Pulse Ox O2 Delivery O2 Flow Rate FiO2 01/05/19 08:11 98 Nasal Cannula 3.0 01/05/19 07:00 97.0 87 18 136/64 (88) 97.0 Physical Exam PHYSICAL EXAM GENERAL: In bed, alert, relaxed appearance, HEENT: Oral cavity pink, dry. + NGT - to suction NECK: Supple LUNGS: Diminished aeration bases HEART: S1, S2 ABDOMEN: Distended but less, soft, . dressing dry. : Freeman EXTREMITIES: LLE 1+ edema. no cyanosis SKIN: No rash. Rectal wound. NEUROLOGIC: Alert, responding appropriately RUE-PICC (12/23) clean Labs Lab Laboratory Tests Test 01/04/19 11:54 01/04/19 17:00 01/05/19 00:13 01/05/19 06:15 Glucose (Fingerstick) 308 mg/dL (70-99) 298 mg/dL (70-99) 249 mg/dL (70-99) White Blood Count 13.9 x10^3/uL (4.0-11.0) Red Blood Count 3.21 x10^6/uL (3.50-5.40) Hemoglobin 8.0 g/dL (12.0-15.5) Hematocrit 25.0 % (36.0-47.0) Mean Corpuscular Volume 78 fL (79-100) Mean Corpuscular Hemoglobin 25 pg (25-35) Mean Corpuscular Hemoglobin Concent 32 g/dL (31-37) Red Cell Distribution Width 24.2 % (11.5-14.5) Platelet Count 324 x10^3/uL (140-400) Neutrophils (%) (Auto) 83 % (31-73) Lymphocytes (%) (Auto) 9 % (24-48) Monocytes (%) (Auto) 7 % (0-9) Eosinophils (%) (Auto) 1 % (0-3) Basophils (%) (Auto) 1 % (0-3) Neutrophils # (Auto) 11.5 x10^3uL (1.8-7.7) Lymphocytes # (Auto) 1.2 x10^3/uL (1.0-4.8) Monocytes # (Auto) 1.0 x10^3/uL (0.0-1.1) Eosinophils # (Auto) 0.2 x10^3/uL (0.0-0.7) Basophils # (Auto) 0.1 x10^3/uL (0.0-0.2) Sodium Level 145 mmol/L (136-145) Potassium Level 4.4 mmol/L (3.5-5.1) Chloride Level 107 mmol/L (98-107) Carbon Dioxide Level 31 mmol/L (21-32) Anion Gap 7 (6-14) Blood Urea Nitrogen 27 mg/dL (7-20) Creatinine 0.7 mg/dL (0.6-1.0) Estimated GFR (Cockcroft-Gault) 98.7 Glucose Level 312 mg/dL (70-99) Calcium Level 8.5 mg/dL (8.5-10.1) Phosphorus Level 3.8 mg/dL (2.6-4.7) Magnesium Level 1.8 mg/dL (1.8-2.4) Test 01/05/19 06:18 Glucose (Fingerstick) 232 mg/dL (70-99) Micro Microbiology 01/01/19 Blood Culture - Preliminary, Resulted NO GROWTH AFTER 2 DAYS 12/25/18 - Final, Complete 12/25/18 - Final, Complete 12/25/18 - Final, Complete 12/25/18 - Final, Complete 12/25/18 Gram Stain Evaluation - Final, Complete 12/25/18 Sputum Culture - Final, Complete 12/25/18 Sputum Result 1 - Final, Complete Objective Assessment Small bowel obstruction at previous anastomotic site. s/p exploratory laparotomy with extended right hemicolectomy and primary anastomosis, 12/30. Leukocytosis - improving - s/p Dexamethasone 12/30 S/P laparoscopic-assisted right colon resection and hemorrhoidectomy on 2018 for bleeding cecal ulcer and hemorrhoids; path negative for malignancy . Left pleural effusion with left basilar atelectasis or infiltrate. cxr 01/02 shows improvement COPD Pneumonia sputum c/s nonrevealing, 12/25 - yeast Ileus - more distended today but + BS Allergies to PCN Plan Plan of Care cont Merrem for now vanc added per primary on 01/01 d/c'd 01/03 Monitor labs in am/temp f/u BC maintain aspiration precautions cont supportive care JI WAY MD Jan 05, 2019 08:27
[2019-01-05] MEDS: LOSARTAN POTASSIUM 50 MG TABLET. PO SCH (09:00)
[2019-01-05] MEDS: MEMANTINE 10 MG TABLET. PO SCH ×2 (09:00→19:27)
[2019-01-05] MEDS: DULoxetine HCL 30 MG CAPSULE.DR PO SCH (09:00)
[2019-01-05] MEDS: amLODIPine BESYLATE 10 MG TABLET PO SCH (09:00)
[2019-01-05] MEDS: DOCUSATE SODIUM 100 MG CAPSULE. PO SCH (09:00)
[2019-01-05] MEDS: SPIRONOLACTONE 25 MG TABLET PO SCH (09:00)
[2019-01-05] MEDS: ASCORBIC ACID 500 MG TABLET PO SCH (09:00)
--- NOTE | 2019-01-05 09:07 | PATHOLOGY ---
[facility] Accession Number: [id number] . 01 Material submitted: . RIGHT COLON . 01 Clinical history: . Colonic mass . 02 Diagnosis: Segment of small intestine and colon with attached mesentery/mesocolon, right colon resection: - Status/post ileocolic anastomosis, with stricture and focal transmural ulceration and acute and chronic inflammation of anastomosis, and with focal fat necrosis, reactive fibrosis, acute and chronic inflammation and focal suture and foreign body giant cell reaction of mesenteric/mesocolic soft tissues. - Serosal fibrosis and adhesions. - Prominent mucosal fold and small diminutive tubular adenoma of colon. - Thirteen mesocolic lymph nodes showing focal acute inflammation. P/01/04/2019 . 02 Comment: There is no evidence of malignancy. (JPM:[facility] 01/04/2019) . 02 Electronically signed: . Scott Lee MD, Pathologist NPI- [id number] . 01 Gross description: . The specimen is received in formalin, labeled "Denis Mccray, right colon". Received is a segment of small bowel measuring 4.2 cm in length by 1.2 cm in diameter anastomosed to a segment of colon measuring 16.8 cm in length and ranges in diameter from 3.1 to 6.8 cm. Both margins are stapled closed. The small bowel mucosa is pink-meza and smooth in appearance. The colonic mucosa is light monahan with a moderate amount of overlying adhesions. The attached mesenteric fat measures 1.2 cm in thickness. The attached pericolic fat measures up to 2.8 cm in thickness. The mesenteric margin is inked orange. The specimen is opened along the antimesenteric line to reveal a light brown mucosa with normal architectural folds within the small bowel. The anastomotic line is identified, located 4.5 cm from the proximal margin, and is severely strictured. The mucosa surrounding this line is light monahan and granular in appearance with no distinct lesions noted grossly. The bowel wall is thickened in this area and fat necrosis is noted. 2.1 cm distal to the anastomotic line, and 6.6 cm from the proximal margin, there is a light monahan polyp present measuring 1.0 cm in maximum dimensions. 5.7 cm from the distal margin, a second polyp is identified measuring 0.2 cm in maximum dimensions. The remainder of the colonic mucosa is light brown with normal architectural folds. Extensive sectioning reveals no gross evidence of perforation. Dissection and palpation of the attached pericolic fat reveals 13 possible nodes ranging in size from 0.1 to 0.3 cm in maximum dimensions. The specimen is submitted representatively as follows: . A1 proximal margin, en face A2 distal margin, en face A3 perpendicular section through mesenteric margin A4-A6 provider relations representative sections through anastomotic line A7 small bowel mucosa A8 larger polyp closest to proximal margin A9 smaller polyp closest to distal margin A10 uninvolved colonic mucosa A11-A12 intact possible lymph nodes. (CAA; 01/03/2019) QAC/QAC . 02 Pathologist provided ICD-10: K63.3, K52.9, D12.6, L04.8 . 02 CPT . 113430 Specimen Comment: A courtesy copy of this report has been sent to Specimen Comment: [phone], . Specimen Comment: Report sent to / DR MILLER Specimen Comment: A duplicate report has been generated due to demographic updates. Performed at: 01 [facility] [address], [place] [id number] MD Stefan Tai MD Phone: [phone] Performed at: 02 [facility] [address] [place], [place] [id number] MD Scott Lee MD Phone: [phone]
--- NOTE | 2019-01-05 10:59 | PDOC ---
Subjective: Subjective: Doing so-so. Breathing issues "come and go." Passing gas. Objective: Objective: Per RN - 400cc out from last night, 200 this morning. Vital Signs: Vital Signs Date Time Temp Pulse Resp B/P (MAP) Pulse Ox O2 Delivery O2 Flow Rate FiO2 01/05/19 09:24 98 Nasal Cannula 3.0 01/05/19 09:00 87 136/64 01/05/19 07:00 97.0 18 97.0 Labs: Laboratory Tests Test 01/04/19 11:54 01/04/19 17:00 01/05/19 00:13 01/05/19 06:15 Glucose (Fingerstick) 308 mg/dL 298 mg/dL 249 mg/dL White Blood Count 13.9 x10^3/uL Red Blood Count 3.21 x10^6/uL Hemoglobin 8.0 g/dL Hematocrit 25.0 % Mean Corpuscular Volume 78 fL Mean Corpuscular Hemoglobin 25 pg Mean Corpuscular Hemoglobin Concent 32 g/dL Red Cell Distribution Width 24.2 % Platelet Count 324 x10^3/uL Neutrophils (%) (Auto) 83 % Lymphocytes (%) (Auto) 9 % Monocytes (%) (Auto) 7 % Eosinophils (%) (Auto) 1 % Basophils (%) (Auto) 1 % Neutrophils # (Auto) 11.5 x10^3uL Lymphocytes # (Auto) 1.2 x10^3/uL Monocytes # (Auto) 1.0 x10^3/uL Eosinophils # (Auto) 0.2 x10^3/uL Basophils # (Auto) 0.1 x10^3/uL Sodium Level 145 mmol/L Potassium Level 4.4 mmol/L Chloride Level 107 mmol/L Carbon Dioxide Level 31 mmol/L Anion Gap 7 Blood Urea Nitrogen 27 mg/dL Creatinine 0.7 mg/dL Estimated GFR (Cockcroft-Gault) 98.7 Glucose Level 312 mg/dL Calcium Level 8.5 mg/dL Phosphorus Level 3.8 mg/dL Magnesium Level 1.8 mg/dL Test 01/05/19 06:18 Glucose (Fingerstick) 232 mg/dL PE: GEN: NAD HEENT: Atraumatic, PERRLA LUNGS: CTAB HEART: RRR, no murmurs ABD: NABS, S/ND/NT, no masses EXTREMITY: No edema SKIN: No rashes, no jaundice NEURO/PSYCH: A & O 3 A/P: Recurrent GI bleeding s/p right colon resection and hemorrhoidectomy 12/17/18 SBO s/p expl lap w/ extended right hemicolectomy and primary anastomosis 12/30/18 Leukocytosis (better), anemia (stable), hyperglycemia COPD -- Has NG tube and TPN, continue per surgery. RADHA JUSTICE Jan 05, 2019 10:59
[2019-01-05 11:00] VITALS: BP 127/76
[2019-01-05] MEDS: TPN PER PHARMACY MC PRN (11:44)
--- NOTE | 2019-01-05 11:46 | NUR ---
Pharmacy TPN Dosing Note S: ELLE LATHAM is a 72 year old F Currently receiving Central Continuous TPN started 12/23/18 B:Pertinent PMH: SBO Height: 5 feet, 7 inches Weight: 85.739920 kg Current diet: npo LABS: Sodium: 145 Potassium: 4.4 Chloride: 107 Calcium: 8.5 Corrected Calcium: 10.18 Magnesium: 2.0 CO2: 32 SCr: 0.7 Glucose: 232-312 Albumin: 1.9 AST: 35 ALT: 44 TPN FORMULA: TPN TYPE: Central Continuous AMINO ACIDS: 85 gm DEXTROSE: 260 gm LIPIDS: 40 gm SODIUM CHLORIDE: 90 mEq SODIUM ACETATE: - mEq SODIUM PHOSPHATE: - mmol POTASSIUM CHLORIDE: 30 mEq POTASSIUM ACETATE: - mEq POTASSIUM PHOSPHATE: 13.6 mmol MAGNESIUM: 15 mEq CALCIUM: 0 mEq INSULIN: 10 units MULTIPLE VITAMIN: 10 ml TRACE ELEMENTS: MTE5 1 ml(s) TPN PLAN: Continue same. Labs in am. R: Continue TPN ABOVE. Will monitor electrolytes, glucose, and tolerance to TPN. MELIA PRUITT [facility], 01/05/19 1141
--- NOTE | 2019-01-05 12:03 | PDOC ---
PULMONARY PROGRESS NOTES Subjective gets SOA / wheezing with any exertion Vitals Vital Signs Date Time Temp Pulse Resp B/P (MAP) Pulse Ox O2 Delivery O2 Flow Rate FiO2 01/05/19 11:00 98.0 85 18 127/76 (93) 96 Nasal Cannula 3.0 98.0 ROS: No Nausea, No Chest Pain General: Alert, Mild Distress HEENT: Other (nc at perrl nose throat clear neck +JVD no lad, no thyromegaly ) Lungs: Wheezing Cardiovascular: S1, S2 Abdomen: Soft, Other (distended) Neuro Exam: Alert, Oriented Extremities: No Edema Skin: Warm Labs Laboratory Tests Test 01/03/19 12:00 01/03/19 18:15 01/04/19 00:05 01/04/19 06:00 Glucose (Fingerstick) 302 mg/dL (70-99) 273 mg/dL (70-99) 270 mg/dL (70-99) White Blood Count 15.0 x10^3/uL (4.0-11.0) Red Blood Count 3.31 x10^6/uL (3.50-5.40) Hemoglobin 8.3 g/dL (12.0-15.5) Hematocrit 25.6 % (36.0-47.0) Mean Corpuscular Volume 77 fL (79-100) Mean Corpuscular Hemoglobin 25 pg (25-35) Mean Corpuscular Hemoglobin Concent 32 g/dL (31-37) Red Cell Distribution Width 23.8 % (11.5-14.5) Platelet Count 374 x10^3/uL (140-400) Neutrophils (%) (Auto) 84 % (31-73) Lymphocytes (%) (Auto) 6 % (24-48) Monocytes (%) (Auto) 7 % (0-9) Eosinophils (%) (Auto) 2 % (0-3) Basophils (%) (Auto) 1 % (0-3) Neutrophils # (Auto) 12.6 x10^3uL (1.8-7.7) Lymphocytes # (Auto) 1.0 x10^3/uL (1.0-4.8) Monocytes # (Auto) 1.0 x10^3/uL (0.0-1.1) Eosinophils # (Auto) 0.2 x10^3/uL (0.0-0.7) Basophils # (Auto) 0.1 x10^3/uL (0.0-0.2) Test 01/04/19 06:10 01/04/19 11:54 01/04/19 17:00 01/05/19 00:13 Glucose (Fingerstick) 277 mg/dL (70-99) 308 mg/dL (70-99) 298 mg/dL (70-99) 249 mg/dL (70-99) Test 01/05/19 06:15 01/05/19 06:18 01/05/19 11:04 White Blood Count 13.9 x10^3/uL (4.0-11.0) Red Blood Count 3.21 x10^6/uL (3.50-5.40) Hemoglobin 8.0 g/dL (12.0-15.5) Hematocrit 25.0 % (36.0-47.0) Mean Corpuscular Volume 78 fL (79-100) Mean Corpuscular Hemoglobin 25 pg (25-35) Mean Corpuscular Hemoglobin Concent 32 g/dL (31-37) Red Cell Distribution Width 24.2 % (11.5-14.5) Platelet Count 324 x10^3/uL (140-400) Neutrophils (%) (Auto) 83 % (31-73) Lymphocytes (%) (Auto) 9 % (24-48) Monocytes (%) (Auto) 7 % (0-9) Eosinophils (%) (Auto) 1 % (0-3) Basophils (%) (Auto) 1 % (0-3) Neutrophils # (Auto) 11.5 x10^3uL (1.8-7.7) Lymphocytes # (Auto) 1.2 x10^3/uL (1.0-4.8) Monocytes # (Auto) 1.0 x10^3/uL (0.0-1.1) Eosinophils # (Auto) 0.2 x10^3/uL (0.0-0.7) Basophils # (Auto) 0.1 x10^3/uL (0.0-0.2) Sodium Level 145 mmol/L (136-145) Potassium Level 4.4 mmol/L (3.5-5.1) Chloride Level 107 mmol/L (98-107) Carbon Dioxide Level 31 mmol/L (21-32) Anion Gap 7 (6-14) Blood Urea Nitrogen 27 mg/dL (7-20) Creatinine 0.7 mg/dL (0.6-1.0) Estimated GFR (Cockcroft-Gault) 98.7 Glucose Level 312 mg/dL (70-99) Calcium Level 8.5 mg/dL (8.5-10.1) Phosphorus Level 3.8 mg/dL (2.6-4.7) Magnesium Level 1.8 mg/dL (1.8-2.4) Glucose (Fingerstick) 232 mg/dL (70-99) 306 mg/dL (70-99) Laboratory Tests Test 01/04/19 17:00 01/05/19 00:13 01/05/19 06:15 01/05/19 06:18 Glucose (Fingerstick) 298 mg/dL (70-99) 249 mg/dL (70-99) 232 mg/dL (70-99) White Blood Count 13.9 x10^3/uL (4.0-11.0) Red Blood Count 3.21 x10^6/uL (3.50-5.40) Hemoglobin 8.0 g/dL (12.0-15.5) Hematocrit 25.0 % (36.0-47.0) Mean Corpuscular Volume 78 fL (79-100) Mean Corpuscular Hemoglobin 25 pg (25-35) Mean Corpuscular Hemoglobin Concent 32 g/dL (31-37) Red Cell Distribution Width 24.2 % (11.5-14.5) Platelet Count 324 x10^3/uL (140-400) Neutrophils (%) (Auto) 83 % (31-73) Lymphocytes (%) (Auto) 9 % (24-48) Monocytes (%) (Auto) 7 % (0-9) Eosinophils (%) (Auto) 1 % (0-3) Basophils (%) (Auto) 1 % (0-3) Neutrophils # (Auto) 11.5 x10^3uL (1.8-7.7) Lymphocytes # (Auto) 1.2 x10^3/uL (1.0-4.8) Monocytes # (Auto) 1.0 x10^3/uL (0.0-1.1) Eosinophils # (Auto) 0.2 x10^3/uL (0.0-0.7) Basophils # (Auto) 0.1 x10^3/uL (0.0-0.2) Sodium Level 145 mmol/L (136-145) Potassium Level 4.4 mmol/L (3.5-5.1) Chloride Level 107 mmol/L (98-107) Carbon Dioxide Level 31 mmol/L (21-32) Anion Gap 7 (6-14) Blood Urea Nitrogen 27 mg/dL (7-20) Creatinine 0.7 mg/dL (0.6-1.0) Estimated GFR (Cockcroft-Gault) 98.7 Glucose Level 312 mg/dL (70-99) Calcium Level 8.5 mg/dL (8.5-10.1) Phosphorus Level 3.8 mg/dL (2.6-4.7) Magnesium Level 1.8 mg/dL (1.8-2.4) Test 01/05/19 11:04 Glucose (Fingerstick) 306 mg/dL (70-99) Medications Active Scripts Medications Dose Route/Sig Max Daily Dose Days Date Category Chlorhexidine Gluconate 473 Ml Mouthwash 473 Ml MM BID 7 12/10/18 Rx Vitamin C (Ascorbate Calcium) 500 Mg Tablet 500 Mg PO DAILY 30 11/22/18 Rx Slow Release Iron (Ferrous Sulfate) 250 Mg Tablet.er 250 Mg PO DAILY 30 11/22/18 Rx Protonix (Pantoprazole Sodium) 40 Mg Granpkt.dr 40 Mg PO DAILY 30 11/22/18 Rx Metformin Hcl Er (Metformin Hcl) 500 Mg Tab.er.24h 1 Tab PO DAILY 11/12/16 Reported Namenda (Memantine Hcl) 10 Mg Tablet 1 Tab PO BID 11/12/16 Reported Losartan Potassium 100 Mg Tablet 100 Mg PO DAILY 11/12/16 Reported Spironolactone 25 Mg Tablet 1 Tab PO DAILY 11/12/16 Reported Ventolin Hfa Inhaler (Albuterol Sulfate) 18 Gm Hfa.aer.ad 2 Puff INH Q4HRS 11/11/16 Reported Cymbalta (Duloxetine Hcl) 20 Mg Capsule.dr 90 Mg PO DAILY 01/27/16 Reported Requip (Ropinirole Hcl) 1 Mg Tablet 3 Mg PO DAILY 01/27/16 Reported Amlodipine Besylate 10 Mg Tablet 10 Mg PO DAILY 01/27/16 Reported Comments cxr reviewed, b lat ll effusion/atelectasis/infilt L>R Impression . 1. Acute hypoxic respiratory failure MULTIFACTORIAL EXPECTED POST SURGICAL INTERVENTION 2. Gastrointestinal bleed/cecal ulceration by colonoscopy, status post laparoscopic-assisted right colon resection and hemorrhoidectomy 12/17 3. ileus S/P SECOND SURGERY 12/30 SEE BELOW 4. Underlying suspected severe chronic obstructive pulmonary disease. 5. Abnormal CT chest with focal opacity in the right upper lobe, could be nodule/ATELECTASIS Date: 12/17/2018 Preoperative diagnosis: GI bleed cecal ulceration by colonoscopy with active bleeding hemorrhoids Postoperative diagnosis: Same Procedure: Laparoscopic-assisted right colon resection and hemorrhoidectomy Surgeon: Jan Specimen: Right colon and hemorrhoids Date: 12/30/2018 Preoperative diagnosis: Small bowel obstruction Postoperative diagnosis: Small bowel obstruction at previous anastomotic site Procedure: Exploratory laparotomy with extended right hemicolectomy and primary anastomosis Plan . d/w RN add PRN BIPAP for increase dyspnea with activity Duo Nebs add pulmicort CONTINUE SUPPORT NG PER SURGEON IS, the importance of use discussed BD, cxr reviewed 01/[address] IN 4 MONTHS, dr hoover D/W DAUGHTER discussed w pt, rn, JEF CARLIN MD Jan 05, 2019 12:03
--- NOTE | 2019-01-05 12:28 | NUR ---
SW following. Discussed with RN. LATANYA faxed updates to [facility]. SW will continue to follow.
--- NOTE | 2019-01-05 12:32 | PDOC ---
SURGICAL PROGRESS NOTE Subjective Doing ok, passing flatus no BM, No nausea Vital Signs Vital Signs Date Time Temp Pulse Resp B/P (MAP) Pulse Ox O2 Delivery O2 Flow Rate FiO2 01/05/19 11:00 98.0 85 18 127/76 (93) 96 Nasal Cannula 3.0 98.0 I&O Intake and Output 01/05/19 07:00 Intake Total 1530 ml Output Total 800 ml Balance 730 ml Intake Oral 20 ml IV Total 755 ml Other 755 ml Gastric Drainage Total 800 ml # Voids 9 PATIENT HAS A PILLAI: Yes General: Alert, Cooperative, mild distress Abdomen: Normal bowel sounds, Soft, No tenderness Labs Laboratory Tests Test 01/03/19 18:15 01/04/19 00:05 01/04/19 06:00 01/04/19 06:10 Glucose (Fingerstick) 273 mg/dL (70-99) 270 mg/dL (70-99) 277 mg/dL (70-99) White Blood Count 15.0 x10^3/uL (4.0-11.0) Red Blood Count 3.31 x10^6/uL (3.50-5.40) Hemoglobin 8.3 g/dL (12.0-15.5) Hematocrit 25.6 % (36.0-47.0) Mean Corpuscular Volume 77 fL (79-100) Mean Corpuscular Hemoglobin 25 pg (25-35) Mean Corpuscular Hemoglobin Concent 32 g/dL (31-37) Red Cell Distribution Width 23.8 % (11.5-14.5) Platelet Count 374 x10^3/uL (140-400) Neutrophils (%) (Auto) 84 % (31-73) Lymphocytes (%) (Auto) 6 % (24-48) Monocytes (%) (Auto) 7 % (0-9) Eosinophils (%) (Auto) 2 % (0-3) Basophils (%) (Auto) 1 % (0-3) Neutrophils # (Auto) 12.6 x10^3uL (1.8-7.7) Lymphocytes # (Auto) 1.0 x10^3/uL (1.0-4.8) Monocytes # (Auto) 1.0 x10^3/uL (0.0-1.1) Eosinophils # (Auto) 0.2 x10^3/uL (0.0-0.7) Basophils # (Auto) 0.1 x10^3/uL (0.0-0.2) Test 01/04/19 11:54 01/04/19 17:00 01/05/19 00:13 01/05/19 06:15 Glucose (Fingerstick) 308 mg/dL (70-99) 298 mg/dL (70-99) 249 mg/dL (70-99) White Blood Count 13.9 x10^3/uL (4.0-11.0) Red Blood Count 3.21 x10^6/uL (3.50-5.40) Hemoglobin 8.0 g/dL (12.0-15.5) Hematocrit 25.0 % (36.0-47.0) Mean Corpuscular Volume 78 fL (79-100) Mean Corpuscular Hemoglobin 25 pg (25-35) Mean Corpuscular Hemoglobin Concent 32 g/dL (31-37) Red Cell Distribution Width 24.2 % (11.5-14.5) Platelet Count 324 x10^3/uL (140-400) Neutrophils (%) (Auto) 83 % (31-73) Lymphocytes (%) (Auto) 9 % (24-48) Monocytes (%) (Auto) 7 % (0-9) Eosinophils (%) (Auto) 1 % (0-3) Basophils (%) (Auto) 1 % (0-3) Neutrophils # (Auto) 11.5 x10^3uL (1.8-7.7) Lymphocytes # (Auto) 1.2 x10^3/uL (1.0-4.8) Monocytes # (Auto) 1.0 x10^3/uL (0.0-1.1) Eosinophils # (Auto) 0.2 x10^3/uL (0.0-0.7) Basophils # (Auto) 0.1 x10^3/uL (0.0-0.2) Sodium Level 145 mmol/L (136-145) Potassium Level 4.4 mmol/L (3.5-5.1) Chloride Level 107 mmol/L (98-107) Carbon Dioxide Level 31 mmol/L (21-32) Anion Gap 7 (6-14) Blood Urea Nitrogen 27 mg/dL (7-20) Creatinine 0.7 mg/dL (0.6-1.0) Estimated GFR (Cockcroft-Gault) 98.7 Glucose Level 312 mg/dL (70-99) Calcium Level 8.5 mg/dL (8.5-10.1) Phosphorus Level 3.8 mg/dL (2.6-4.7) Magnesium Level 1.8 mg/dL (1.8-2.4) Test 01/05/19 06:18 01/05/19 11:04 Glucose (Fingerstick) 232 mg/dL (70-99) 306 mg/dL (70-99) Laboratory Tests Test 01/04/19 17:00 01/05/19 00:13 01/05/19 06:15 01/05/19 06:18 Glucose (Fingerstick) 298 mg/dL (70-99) 249 mg/dL (70-99) 232 mg/dL (70-99) White Blood Count 13.9 x10^3/uL (4.0-11.0) Red Blood Count 3.21 x10^6/uL (3.50-5.40) Hemoglobin 8.0 g/dL (12.0-15.5) Hematocrit 25.0 % (36.0-47.0) Mean Corpuscular Volume 78 fL (79-100) Mean Corpuscular Hemoglobin 25 pg (25-35) Mean Corpuscular Hemoglobin Concent 32 g/dL (31-37) Red Cell Distribution Width 24.2 % (11.5-14.5) Platelet Count 324 x10^3/uL (140-400) Neutrophils (%) (Auto) 83 % (31-73) Lymphocytes (%) (Auto) 9 % (24-48) Monocytes (%) (Auto) 7 % (0-9) Eosinophils (%) (Auto) 1 % (0-3) Basophils (%) (Auto) 1 % (0-3) Neutrophils # (Auto) 11.5 x10^3uL (1.8-7.7) Lymphocytes # (Auto) 1.2 x10^3/uL (1.0-4.8) Monocytes # (Auto) 1.0 x10^3/uL (0.0-1.1) Eosinophils # (Auto) 0.2 x10^3/uL (0.0-0.7) Basophils # (Auto) 0.1 x10^3/uL (0.0-0.2) Sodium Level 145 mmol/L (136-145) Potassium Level 4.4 mmol/L (3.5-5.1) Chloride Level 107 mmol/L (98-107) Carbon Dioxide Level 31 mmol/L (21-32) Anion Gap 7 (6-14) Blood Urea Nitrogen 27 mg/dL (7-20) Creatinine 0.7 mg/dL (0.6-1.0) Estimated GFR (Cockcroft-Gault) 98.7 Glucose Level 312 mg/dL (70-99) Calcium Level 8.5 mg/dL (8.5-10.1) Phosphorus Level 3.8 mg/dL (2.6-4.7) Magnesium Level 1.8 mg/dL (1.8-2.4) Test 01/05/19 11:04 Glucose (Fingerstick) 306 mg/dL (70-99) Assessment/Plan s/p colon resection with subsequent sbp Awaiting return of bowel function D/C NGT but only ice chips for now DAYLIN WEI MD Jan 05, 2019 12:31
[2019-01-05 15:20] VITALS: BP 118/77
--- NOTE | 2019-01-05 15:50 | RAD ---
Portable abdomen, 01/05/2019: HISTORY: Check NG tube placement Comparison is made to a study from 12/28/2018. The tip of the NG tube now overlies the mid body of the stomach. There is residual contrast material in the colon from a previous diagnostic study. The colon is not dilated. There is mild residual gaseous distention of several small bowel loops, although improved since 12/29/2018. IMPRESSION: The NG tube extends into the body of the stomach. Electronically signed by: Sedrick Pate MD (01/05/2019 3:47 PM) [facility]
[2019-01-05] MEDS: BUDESONIDE 0.5 MG/2 ML NEBU. NEB SCH ×2 (16:19→19:36)
--- NOTE | 2019-01-05 16:44 | PDOC ---
PROGRESS NOTES Chief Complaint Chief Complaint CC: Anemia, colonic Avms Acute hypoxic respiratory failure Cecal ulceration - s/p rt colon resection and hemorrhoidectomy 12/17 SBO - s/p ex lap, extended rt hemicolectomy POD4 VISHNU COPD Sepsis/Leukopenia - meropenem and vanco, ID following History of Present Illness History of Present Illness Pt is a 73 y/o female who is s/p rt colon resection and hemorrhoidectomy on and s/p ex lap, extended rt hemicolectomy POD4. Today she was seen and examined in her room. She is awake and up in her chair. She is looking much improved today. Breathing better. States she has no new complaints. Patient does seem very debilitated as a consequence of her prolonged hospital stay. Vitals Vitals Vital Signs Date Time Temp Pulse Resp B/P (MAP) Pulse Ox O2 Delivery O2 Flow Rate FiO2 01/05/19 16:20 96 Nasal Cannula 3.0 01/05/19 15:20 98.9 95 24 118/77 (91) 98.9 Physical Exam Physical Exam GENERAL: In bed, alert, relaxed appearance, HEENT: Oral cavity pink, dry. + NGT - to suction NECK: Supple LUNGS: Diminished aeration bases HEART: S1, S2 ABDOMEN: Distended but less, soft, . dressing dry. : Freeman EXTREMITIES: LLE 1+ edema. no cyanosis SKIN: No rash. Rectal wound. NEUROLOGIC: Alert, responding appropriately RUE-PICC (12/23) clean General: Alert, Cooperative, mild distress Heart: Regular rate, No murmurs Lungs: Wheezing Abdomen: Normal bowel sounds, Soft, No tenderness Extremities: No clubbing, No cyanosis, No edema Skin: No breakdown, No significant lesion Labs LABS Laboratory Tests Test 01/04/19 17:00 01/05/19 00:13 01/05/19 06:15 01/05/19 06:18 Glucose (Fingerstick) 298 mg/dL (70-99) 249 mg/dL (70-99) 232 mg/dL (70-99) White Blood Count 13.9 x10^3/uL (4.0-11.0) Red Blood Count 3.21 x10^6/uL (3.50-5.40) Hemoglobin 8.0 g/dL (12.0-15.5) Hematocrit 25.0 % (36.0-47.0) Mean Corpuscular Volume 78 fL (79-100) Mean Corpuscular Hemoglobin 25 pg (25-35) Mean Corpuscular Hemoglobin Concent 32 g/dL (31-37) Red Cell Distribution Width 24.2 % (11.5-14.5) Platelet Count 324 x10^3/uL (140-400) Neutrophils (%) (Auto) 83 % (31-73) Lymphocytes (%) (Auto) 9 % (24-48) Monocytes (%) (Auto) 7 % (0-9) Eosinophils (%) (Auto) 1 % (0-3) Basophils (%) (Auto) 1 % (0-3) Neutrophils # (Auto) 11.5 x10^3uL (1.8-7.7) Lymphocytes # (Auto) 1.2 x10^3/uL (1.0-4.8) Monocytes # (Auto) 1.0 x10^3/uL (0.0-1.1) Eosinophils # (Auto) 0.2 x10^3/uL (0.0-0.7) Basophils # (Auto) 0.1 x10^3/uL (0.0-0.2) Sodium Level 145 mmol/L (136-145) Potassium Level 4.4 mmol/L (3.5-5.1) Chloride Level 107 mmol/L (98-107) Carbon Dioxide Level 31 mmol/L (21-32) Anion Gap 7 (6-14) Blood Urea Nitrogen 27 mg/dL (7-20) Creatinine 0.7 mg/dL (0.6-1.0) Estimated GFR (Cockcroft-Gault) 98.7 Glucose Level 312 mg/dL (70-99) Calcium Level 8.5 mg/dL (8.5-10.1) Phosphorus Level 3.8 mg/dL (2.6-4.7) Magnesium Level 1.8 mg/dL (1.8-2.4) Test 01/05/19 11:04 Glucose (Fingerstick) 306 mg/dL (70-99) Review of Systems Review of Systems pertinent as per HPI otherwise 10 point ROS negative. Comment Review of Relevant I have reviewed the following items abdifatah (where applicable) has been applied. Labs Laboratory Tests Test 01/03/19 18:15 2/19/19 00:05 01/04/19 06:00 01/04/19 06:10 Glucose (Fingerstick) 273 mg/dL (70-99) 270 mg/dL (70-99) 277 mg/dL (70-99) White Blood Count 15.0 x10^3/uL (4.0-11.0) Red Blood Count 3.31 x10^6/uL (3.50-5.40) Hemoglobin 8.3 g/dL (12.0-15.5) Hematocrit 25.6 % (36.0-47.0) Mean Corpuscular Volume 77 fL (79-100) Mean Corpuscular Hemoglobin 25 pg (25-35) Mean Corpuscular Hemoglobin Concent 32 g/dL (31-37) Red Cell Distribution Width 23.8 % (11.5-14.5) Platelet Count 374 x10^3/uL (140-400) Neutrophils (%) (Auto) 84 % (31-73) Lymphocytes (%) (Auto) 6 % (24-48) Monocytes (%) (Auto) 7 % (0-9) Eosinophils (%) (Auto) 2 % (0-3) Basophils (%) (Auto) 1 % (0-3) Neutrophils # (Auto) 12.6 x10^3uL (1.8-7.7) Lymphocytes # (Auto) 1.0 x10^3/uL (1.0-4.8) Monocytes # (Auto) 1.0 x10^3/uL (0.0-1.1) Eosinophils # (Auto) 0.2 x10^3/uL (0.0-0.7) Basophils # (Auto) 0.1 x10^3/uL (0.0-0.2) Test 01/04/19 11:54 01/04/19 17:00 01/05/19 00:13 01/05/19 06:15 Glucose (Fingerstick) 308 mg/dL (70-99) 298 mg/dL (70-99) 249 mg/dL (70-99) White Blood Count 13.9 x10^3/uL (4.0-11.0) Red Blood Count 3.21 x10^6/uL (3.50-5.40) Hemoglobin 8.0 g/dL (12.0-15.5) Hematocrit 25.0 % (36.0-47.0) Mean Corpuscular Volume 78 fL (79-100) Mean Corpuscular Hemoglobin 25 pg (25-35) Mean Corpuscular Hemoglobin Concent 32 g/dL (31-37) Red Cell Distribution Width 24.2 % (11.5-14.5) Platelet Count 324 x10^3/uL (140-400) Neutrophils (%) (Auto) 83 % (31-73) Lymphocytes (%) (Auto) 9 % (24-48) Monocytes (%) (Auto) 7 % (0-9) Eosinophils (%) (Auto) 1 % (0-3) Basophils (%) (Auto) 1 % (0-3) Neutrophils # (Auto) 11.5 x10^3uL (1.8-7.7) Lymphocytes # (Auto) 1.2 x10^3/uL (1.0-4.8) Monocytes # (Auto) 1.0 x10^3/uL (0.0-1.1) Eosinophils # (Auto) 0.2 x10^3/uL (0.0-0.7) Basophils # (Auto) 0.1 x10^3/uL (0.0-0.2) Sodium Level 145 mmol/L (136-145) Potassium Level 4.4 mmol/L (3.5-5.1) Chloride Level 107 mmol/L (98-107) Carbon Dioxide Level 31 mmol/L (21-32) Anion Gap 7 (6-14) Blood Urea Nitrogen 27 mg/dL (7-20) Creatinine 0.7 mg/dL (0.6-1.0) Estimated GFR (Cockcroft-Gault) 98.7 Glucose Level 312 mg/dL (70-99) Calcium Level 8.5 mg/dL (8.5-10.1) Phosphorus Level 3.8 mg/dL (2.6-4.7) Magnesium Level 1.8 mg/dL (1.8-2.4) Test 01/05/19 06:18 01/05/19 11:04 Glucose (Fingerstick) 232 mg/dL (70-99) 306 mg/dL (70-99) Laboratory Tests Test 01/04/19 17:00 01/05/19 00:13 01/05/19 06:15 01/05/19 06:18 Glucose (Fingerstick) 298 mg/dL (70-99) 249 mg/dL (70-99) 232 mg/dL (70-99) White Blood Count 13.9 x10^3/uL (4.0-11.0) Red Blood Count 3.21 x10^6/uL (3.50-5.40) Hemoglobin 8.0 g/dL (12.0-15.5) Hematocrit 25.0 % (36.0-47.0) Mean Corpuscular Volume 78 fL (79-100) Mean Corpuscular Hemoglobin 25 pg (25-35) Mean Corpuscular Hemoglobin Concent 32 g/dL (31-37) Red Cell Distribution Width 24.2 % (11.5-14.5) Platelet Count 324 x10^3/uL (140-400) Neutrophils (%) (Auto) 83 % (31-73) Lymphocytes (%) (Auto) 9 % (24-48) Monocytes (%) (Auto) 7 % (0-9) Eosinophils (%) (Auto) 1 % (0-3) Basophils (%) (Auto) 1 % (0-3) Neutrophils # (Auto) 11.5 x10^3uL (1.8-7.7) Lymphocytes # (Auto) 1.2 x10^3/uL (1.0-4.8) Monocytes # (Auto) 1.0 x10^3/uL (0.0-1.1) Eosinophils # (Auto) 0.2 x10^3/uL (0.0-0.7) Basophils # (Auto) 0.1 x10^3/uL (0.0-0.2) Sodium Level 145 mmol/L (136-145) Potassium Level 4.4 mmol/L (3.5-5.1) Chloride Level 107 mmol/L (98-107) Carbon Dioxide Level 31 mmol/L (21-32) Anion Gap 7 (6-14) Blood Urea Nitrogen 27 mg/dL (7-20) Creatinine 0.7 mg/dL (0.6-1.0) Estimated GFR (Cockcroft-Gault) 98.7 Glucose Level 312 mg/dL (70-99) Calcium Level 8.5 mg/dL (8.5-10.1) Phosphorus Level 3.8 mg/dL (2.6-4.7) Magnesium Level 1.8 mg/dL (1.8-2.4) Test 01/05/19 11:04 Glucose (Fingerstick) 306 mg/dL (70-99) Microbiology 01/01/19 Blood Culture - Preliminary, Resulted NO GROWTH AFTER 4 DAYS 12/25/18 - Final, Complete 12/25/18 - Final, Complete 12/25/18 - Final, Complete 12/25/18 - Final, Complete 12/25/18 Gram Stain Evaluation - Final, Complete 12/25/18 Sputum Culture - Final, Complete 12/25/18 Sputum Result 1 - Final, Complete Medications Current Medications Sodium Chloride 1,000 ml @ 1,000 mls/hr 1X ONCE IV Last administered on 13:52; Start 12/14/18 at 13:30; Stop 12/14/18 at 14:29; Status DC Amlodipine Besylate (Norvasc) 10 mg DAILY PO Last administered on 12/26/18 10: 01; Start 12/14/18 at 17:00 Chlorhexidine Gluconate (Peridex) 15 ml BID MM Last administered on 01/05/19 08:07; Start 12/14/18 at 21:00 Non-Formulary Medication (Albuterol Sulfate (Ventolin Hfa Inhaler)) 2 puff Q4HRS INH ; Start 12/14/18 at 20:00; Status UNV Ascorbic Acid (Vitamin C) 500 mg DAILY PO Last administered on 12/22/18 10:30; Start 12/14/18 at 17:00 Duloxetine HCl (Cymbalta) 90 mg DAILY PO Last administered on 12/22/18 10:30; Start 12/14/18 at 17:00 Ferrous Sulfate (Feosol) 325 mg [id number] PO Last administered on 12/22/18 10: 30; Start 12/14/18 at 17:00 Losartan Potassium (Cozaar) 100 mg DAILY PO Last administered on 12/22/18 10:29 ; Start 12/14/18 at 17:00 Memantine (Namenda) 10 mg BID PO Last administered on 2/10/19at 21:25; Start at 21:00 Pantoprazole Sodium (Protonix) 40 mg DAILYAC PO Last administered on 12/22/18at 05:28; Start 12/14/18 at 17:00; Stop 12/24/18 at 09:25; Status DC Ropinirole HCl (Requip) 3 mg QHS PO Last administered on 12/26/18at 21:25; Start 12/14/18 at 21:00 Spironolactone (Aldactone) 25 mg DAILY PO Last administered on 12/26/18at 10:42 ; Start 12/14/18 at 17:00 Albuterol Sulfate (Ventolin Neb Soln) 2.5 mg Q4HRS NEB Last administered on at 06:52; Start 12/14/18 at 20:00; Stop 01/02/19 at 07:24; Status DC Sodium Chloride 1,000 ml @ 80 mls/hr [id number] IV Last administered on 12/23/18at 15:25; Start 12/14/18 at 17:15; Stop 12/23/18 at 21:59; Status DC Acetaminophen (Tylenol) 650 mg PRN Q6HRS PRN PO Pain Last administered on at 21:27; Start 12/15/18 at 04:45; Stop 12/26/18 at 21:07; Status DC Polyethylene Glycol (miraLAX Powder BULK BOTTLE) 238 gm 1X ONCE PO Last administered on 12/15/18at 12:48; Start 12/15/18 at 12:00; Stop 12/15/18 at 12:01 ; Status DC Ondansetron HCl (Zofran) 4 mg PRN Q6HRS PRN IV NAUSEA/VOMITING; Start 12/16/18 at 07:00; Stop 12/17/18 at 06:59; Status DC Fentanyl Citrate (Fentanyl 2ml Vial) 25 mcg PRN Q5MIN PRN IV MILD PAIN; Start 12/16/18 at 07:00; Stop 12/16/18 at 16:33; Status DC Fentanyl Citrate (Fentanyl 2ml Vial) 50 mcg PRN Q5MIN PRN IV MODERATE TO SEVERE PAIN; Start 12/16/18 at 07:00; Stop 12/16/18 at 16:33; Status DC Morphine Sulfate (Morphine Sulfate) 1 mg PRN Q10MIN PRN IV SEVERE PAIN; Start 12/16/18 at 07:00; Stop 12/17/18 at 06:59; Status DC Ringer's Solution 1,000 ml @ 30 mls/hr Q24H IV Last administered on 12/16/18at 13:00; Start 12/16/18 at 07:00; Stop 12/16/18 at 18:59; Status DC Lidocaine HCl (Xylocaine-Mpf 1% 2ml Vial) 2 ml PRN 1X PRN ID IV START; Start at 07:00; Stop 12/17/18 at 06:59; Status DC Hydromorphone HCl (Dilaudid) 0.5 mg PRN Q10MIN PRN IV SEV PAIN, Second choice; Start 12/16/18 at 07:00; Stop 12/17/18 at 06:59; Status DC Prochlorperazine Edisylate (Compazine) 5 mg PACU PRN PRN IV NAUSEA, MRX1; Start 12/16/18 at 07:00; Stop 12/17/18 at 06:59; Status DC Midazolam HCl (Versed) 2 mg PRN 1X PRN IV PRIOR TO PROCEDURE; Start 12/16/18 at 07:15; Stop 12/17/18 at 07:14; Status DC Fentanyl Citrate (Fentanyl 2ml Vial) 25 mcg PRN Q5MIN PRN IV X 2 DOSES FOR PAIN ; Start 12/16/18 at 07:15; Stop 12/16/18 at 16:33; Status DC Fentanyl Citrate (Fentanyl 2ml Vial) 50 mcg PRN Q5MIN PRN IV X 2 DOSES FOR PAIN ; Start 12/16/18 at 07:15; Stop 12/16/18 at 16:34; Status DC Ringer's Solution 1,000 ml @ 125 mls/hr Q8H IV ; Start 12/16/18 at 07:13; Stop 12/16/18 at 19:12; Status DC Lidocaine HCl (Xylocaine-Mpf 1% 2ml Vial) 2 ml 1X PRN PRN ID IV START; Start at 07:15; Stop 12/17/18 at 07:14; Status DC Propofol 40 ml @ As Directed STK-MED ONCE IV ; Start 12/16/18 at 13:58; Stop at 14:00; Status DC Prochlorperazine Edisylate (Compazine) 5 mg PACU PRN PRN IV NAUSEA, MRX1; Start 12/17/18 at 07:00; Stop 12/18/18 at 06:59; Status DC Hydromorphone HCl (Dilaudid) 0.5 mg PRN Q10MIN PRN IV SEV PAIN, Second choice; Start 12/17/18 at 07:00; Stop 12/18/18 at 06:59; Status DC Lidocaine HCl (Xylocaine-Mpf 1% 2ml Vial) 2 ml PRN 1X PRN ID IV START; Start at 07:00; Stop 12/18/18 at 06:59; Status DC Ringer's Solution 1,000 ml @ 30 mls/hr Q24H IV Last administered on 12/17/18at 10:34; Start 12/17/18 at 07:00; Stop 12/17/18 at 18:59; Status DC Morphine Sulfate (Morphine Sulfate) 1 mg PRN Q10MIN PRN IV SEVERE PAIN; Start 12/17/18 at 07:00; Stop 12/18/18 at 06:59; Status DC Fentanyl Citrate (Fentanyl 2ml Vial) 50 mcg PRN Q5MIN PRN IV MODERATE TO SEVERE PAIN Last administered on 12/17/18at 11:13; Start 12/17/18 at 07:00; Stop at 06:59; Status DC Fentanyl Citrate (Fentanyl 2ml Vial) 25 mcg PRN Q5MIN PRN IV MILD PAIN; Start 12/17/18 at 07:00; Stop 12/18/18 at 06:59; Status DC Ondansetron HCl (Zofran) 4 mg PRN Q6HRS PRN IV NAUSEA/VOMITING; Start 12/17/18 at 07:00; Stop 12/18/18 at 06:59; Status DC Propofol 20 ml @ As Directed STK-MED ONCE IV ; Start 12/17/18 at 07:21; Stop 12/17 at 07:23; Status DC Albuterol Sulfate (Ventolin Neb Soln) 2.5 mg 1X ONCE NEB ; Start 12/17/18 at 07: 30; Stop 12/17/18 at 07:31; Status DC Lidocaine HCl (Lidocaine Pf 2% Vial) 5 ml STK-MED ONCE .ROUTE ; Start 12/17/18 at 07:21; Stop 12/17/18 at 07:23; Status DC Succinylcholine Chloride (Anectine) 200 mg STK-MED ONCE .ROUTE ; Start 12/17/18 at 07:21; Stop 12/17/18 at 07:23; Status DC Rocuronium [place] (Zemuron) 50 mg STK-MED ONCE .ROUTE ; Start 12/17/18 at 07:21 ; Stop 12/17/18 at 07:23; Status DC Fentanyl Citrate (Fentanyl 2ml Vial) 100 mcg STK-MED ONCE .ROUTE ; Start at 07:21; Stop 12/17/18 at 07:24; Status DC Cefazolin Sodium/ Dextrose 50 ml @ 100 mls/hr 1X ONCE IV Last administered on 12/17/18at 08:07; Start 12/17/18 at 07:45; Stop 12/17/18 at 08:18; Status DC Bupivacaine HCl/ Epinephrine Bitart (Sensorcain-Mpf Epi 0.5%-1:[id number]) 30 ml STK -MED ONCE .ROUTE Last administered on 12/17/18at 08:34; Start 12/17/18 at 07:46; Stop 12/17/18 at 07:49; Status DC Neomycin/ Polymyxin/ Bacitracin (Triple Antibiotic Ointment) 1 pkt STK-MED ONCE TP Last administered on 12/17/18at 10:07; Start 12/17/18 at 07:46; Stop 12/17/18 at 07:49; Status DC Neomycin/ Polymyxin/ Bacitracin (Triple Antibiotic Ointment) 1 pkt STK-MED ONCE TP Last administered on 12/17/18at 10:07; Start 12/17/18 at 07:46; Stop 12/17/18 at 07:49; Status DC Neomycin/ Polymyxin/ Bacitracin (Triple Antibiotic Ointment) 1 pkt STK-MED ONCE TP ; Start 12/17/18 at 07:47; Stop 12/17/18 at 07:49; Status DC Dexamethasone Sodium Phosphate (Decadron) 20 mg STK-MED ONCE .ROUTE ; Start 12/17 at 07:54; Stop 12/17/18 at 07:56; Status DC Hydrocortisone Sodium Succinate (Solu-CORTEF) 100 mg STK-MED ONCE .ROUTE ; Start 12/17/18 at 07:54; Stop 12/17/18 at 07:56; Status DC Desflurane (Suprane) 90 ml STK-MED ONCE IH ; Start 12/17/18 at 07:54; Stop at 07:56; Status DC Neostigmine Methylsulfate (Bloxiverz) 10 mg STK-MED ONCE .ROUTE ; Start 12/17/18 at 08:21; Stop 12/17/18 at 08:24; Status DC Glycopyrrolate (Robinul) 1 mg STK-MED ONCE .ROUTE ; Start 12/17/18 at 08:21; Stop 12/17/18 at 08:24; Status DC Phenylephrine HCl (Bogdan-Synephrine Inj) 10 mg STK-MED ONCE .ROUTE ; Start at 08:23; Stop 12/17/18 at 08:26; Status DC Desflurane (Suprane) 60 ml STK-MED ONCE IH ; Start 12/17/18 at 09:23; Stop at 09:26; Status DC Bupivacaine HCl/ Epinephrine Bitart (Sensorcain-Mpf Epi 0.5%-1:[id number]) 30 ml STK -MED ONCE .ROUTE Last administered on 12/17/18at 10:06; Start 12/17/18 at 09:41; Stop 12/17/18 at 09:43; Status DC Morphine Sulfate (Morphine Sulfate) 2 mg PRN Q2HR PRN IV PAIN Last administered on 12/25/18at 09:26; Start 12/17/18 at 10:15; Stop 12/25/18 at 17:54; Status DC Ketorolac Tromethamine (Toradol 15mg Vial) 15 mg Q6HRS IV Last administered on 12/18/18at 05:39; Start 12/17/18 at 12:00; Stop 12/18/18 at 10:00; Status DC Artificial Tears (Artificial Tears) 1 drop PRN Q15MIN PRN OU DRY EYE Last administered on 12/20/18at 21:28; Start 12/18/18 at 08:00 Docusate Sodium (Colace) 100 mg DAILY PO Last administered on 12/26/18 10:01; Start 12/18/18 at 10:00 Throat Lozenges (Cepacol Sore Throat Lozenge) 1 kristyn PRN Q2HRS PRN PO SORE THROAT Last administered on 01/05/19 08:07; Start 12/18/18 at 14:00 Enoxaparin Sodium (Lovenox 40mg Syringe) 40 mg Q24H SQ Last administered on 08:07; Start 12/19/18 at 09:00 Ondansetron HCl (Zofran) 4 mg PRN Q6HRS PRN IV NAUSEA/VOMITING Last administered on 01/05/19 08:16; Start 12/19/18 at 11:30 Insulin Human Lispro (HumaLOG) 0-5 UNITS TIDWMEALS SQ Last administered on 12/30 18:23; Start 12/19/18 at 17:00; Stop 12/31/18 at 00:05; Status DC Dextrose (Dextrose 50%-Water Syringe) 12.5 gm PRN Q15MIN PRN IV SEE COMMENTS; Start 12/19/18 at 16:45 Levofloxacin/ Dextrose 100 ml @ 100 mls/hr 1X ONCE IV Last administered on 20:56; Start 12/19/18 at 21:00; Stop 12/19/18 at 21:59; Status DC Cefepime HCl (Maxipime) 2 gm Q12HR IVP Last administered on 12/29/18 10:02; Start 12/21/18 at 10:00; Stop 12/29/18 at 10:37; Status DC Sodium Chloride 1,000 ml @ 125 mls/hr 1X ONCE IV Last administered on 10:43; Start 12/21/18 at 09:45; Stop 12/21/18 at 17:44; Status DC Calcium Carbonate/ Glycine (Tums) 500 mg PRN AFTMEALHC PRN PO INDIGESTION Last administered on 12/21/18 13:10; Start 12/21/18 at 12:15 Lorazepam (Ativan) 1 mg 1X ONCE IV Last administered on 12/21/18 17:50; Start 12/21/18 at 17:30; Stop 12/21/18 at 17:31; Status DC Albuterol Sulfate (Ventolin Neb Soln) 2.5 mg PRN Q2HRS PRN NEB SHORTNESS OF BREATH Last administered on 12/26/18 10:26; Start 12/21/18 at 17:30 Nicotine (Nicoderm Cq 14mg) 1 patch PRN DAILY PRN TD SMOKING CESSATION Last administered on 12/26/18 09:59; Start 12/21/18 at 19:30 Lorazepam (Ativan) 1 mg 1X ONCE IV Last administered on 12/21/18at 23:45; Start 12/21/18 at 23:45; Stop 12/21/18 at 23:46; Status DC Lorazepam (Ativan) 1 mg PRN Q4HRS PRN IV ANXIETY / AGITATION Last administered on 12/22/18 11:15; Start 12/21/18 at 23:30; Stop 12/22/18 at 14:42; Status DC Sodium Chloride 1,000 ml @ 250 mls/hr 1X ONCE IV Last administered on 09:15; Start 12/22/18 at 09:15; Stop 12/22/18 at 13:14; Status DC Lidocaine/Sodium Bicarbonate (Buffered Lidocaine 1%) 3 ml STK-MED ONCE .ROUTE ; Start 12/23/18 at 10:33; Stop 12/23/18 at 10:35; Status DC Lidocaine/Sodium Bicarbonate (Buffered Lidocaine 1%) 3 ml 1X ONCE INJ Last administered on 12/23/18 11:24; Start 12/23/18 at 11:00; Stop 12/23/18 at 11:10; Status DC Info (Tpn Per Pharmacy) 1 each PRN DAILY PRN MC SEE COMMENTS Last administered on 01/05/19at 11:44; Start 12/23/18 at 14:00 Sodium Chloride 90 meq/Potassium Chloride 50 meq/ Potassium Phosphate 20.4 mmol/ Magnesium Sulfate 18 meq/ Calcium Gluconate 5 meq/ Multivitamins 10 ml/Chromium / Copper/Manganese/ Seleni/Zn 1 ml/ Total Parenteral Nutrition/Amino Acids/ Dextrose/ Fat Emulsion Intravenous 1,512 ml @ 63 mls/hr TPN CONT IV Last administered on 12/23/18 21:37; Start 12/23/18 at 22:00; Stop 12/24/18 at 21:59; Status DC Alprazolam (Xanax) 0.25 mg PRN BID PRN PO ANXIETY / AGITATION Last administered on 12/25/18at 09:25; Start 12/23/18 at 23:00; Stop 12/25/18 at 17:54; Status DC Lorazepam (Ativan) 1 mg PRN Q4HRS PRN IV ANXIETY / AGITATION Last administered on 12/24/18at 09:21; Start 12/24/18 at 08:45; Stop 12/24/18 at 10:19; Status DC Pantoprazole Sodium (PROTONIX VIAL for IV PUSH) 40 mg DAILYAC IVP Last administered on 01/05/19at 08:07; Start 12/24/18 at 09:30 Lorazepam (Ativan) 0.5 mg PRN Q4HRS PRN IV ANXIETY / AGITATION Last administered on 12/25/18at 04:47; Start 12/24/18 at 10:30; Stop 12/25/18 at 10:22; Status DC Sodium Chloride 45 meq/Sodium Acetate 45 meq/ Potassium Chloride 50 meq/ Potassium Phosphate 20.4 mmol/Magnesium Sulfate 18 meq/ Calcium Gluconate 5 meq / Multivitamins 10 ml/Chromium/ Copper/Manganese/ Seleni/Zn 1 ml/ Total Parenteral Nutrition/Amino Acids/Dextrose/ Fat Emuls... 1,512 ml @ 63 mls/hr TPN CONT IV Last administered on 12/24/18at 21:57; Start 12/24/18 at 22:00; Stop 12/25/18 at 21:59; Status DC Phenyleph/Shark Oil/Min Oil/Petrol (Preparation H) 1 ranjith PRN Q4HRS PRN RC RECTAL PAIN; Start 12/24/18 at 12:45; Stop 12/25/18 at 20:20; Status DC Sodium Chloride 45 meq/Sodium Acetate 45 meq/ Potassium Chloride 50 meq/ Potassium Phosphate 20.4 mmol/Magnesium Sulfate 18 meq/ Calcium Gluconate 5 meq / Multivitamins 10 ml/Chromium/ Copper/Manganese/ Seleni/Zn 1 ml/ Total Parenteral Nutrition/Amino Acids/Dextrose/ Fat Emuls... 1,512 ml @ 63 mls/hr TPN CONT IV Last administered on 12/26/18at 00:34; Start 12/25/18 at 22:00; Stop 12/26/18 at 21:59; Status DC Neomycin/ Polymyxin/ Bacitracin (Triple Antibiotic Ointment) 1 pkt PRN TID PRN TP skin around rectum, post op Last administered on 01/05/19 08:07; Start at 14:30 Alprazolam (Xanax) 0.25 mg PRN Q8HRS PRN PO ANXIETY / AGITATION Last administered on 01/03/19 23:47; Start 12/25/18 at 18:00 Morphine Sulfate (Morphine Sulfate) 2 mg PRN Q6HRS PRN IV PAIN Last administered on 12/29/18 21:47; Start 12/25/18 at 18:00; Stop 12/30/18 at 03:17 ; Status DC Guaifenesin (Mucinex) 600 mg BID PO Last administered on 12/26/18 21:26; Start 12/26/18 at 11:00 Guaifenesin (Mucinex) 600 mg BID PO ; Start 12/26/18 at 11:00; Status UNV Guaifenesin/ Codeine Phosphate (Robitussin Ac) 5 ml PRN Q6HRS PRN PO COUGH Last administered on 12/26/18at 10:41; Start 12/26/18 at 10:30 Sodium Acetate 90 meq/Potassium Chloride 50 meq/ Potassium Phosphate 13.6 mmol/ Magnesium Sulfate 18 meq/ Calcium Gluconate 5 meq/ Multivitamins 10 ml/Chromium / Copper/Manganese/ Seleni/Zn 1 ml/ Total Parenteral Nutrition/Amino Acids/ Dextrose/ Fat Emulsion Intravenous 1,512 ml @ 63 mls/hr TPN CONT IV Last administered on 12/26/18 21:37; Start 12/26/18 at 22:00; Stop 12/28/18 at 01:28 ; Status DC Benzocaine (Hurricaine One) 1 spray 1X ONCE MM ; Start 12/26/18 at 19:15; Stop 12/26/18 at 19:16; Status DC Acetaminophen (Tylenol) 650 mg PRN Q6HRS PRN PO MILD PAIN / TEMP Last administered on 12/27/18at 04:39; Start 12/26/18 at 21:00 Benzocaine (Hurricaine One) 1 spray 1X ONCE MM Last administered on 12/27/18at 09:00; Start 12/27/18 at 09:15; Stop 12/27/18 at 09:16; Status DC Sodium Acetate 90 meq/Potassium Chloride 50 meq/ Potassium Phosphate 13.6 mmol/ Magnesium Sulfate 15 meq/ Calcium Gluconate 5 meq/ Multivitamins 10 ml/Chromium / Copper/Manganese/ Seleni/Zn 1 ml/ Total Parenteral Nutrition/Amino Acids/ Dextrose/ Fat Emulsion Intravenous 1,512 ml @ 63 mls/hr TPN CONT IV ; Start at 22:00; Stop 12/28/18 at 21:59; Status Cancel Sodium Acetate 90 meq/Potassium Chloride 50 meq/ Potassium Phosphate 13.6 mmol/ Magnesium Sulfate 15 meq/ Calcium Gluconate 5 meq/ Multivitamins 10 ml/Chromium / Copper/Manganese/ Seleni/Zn 1 ml/ Total Parenteral Nutrition/Amino Acids/ Dextrose/ Fat Emulsion Intravenous 1,512 ml @ 63 mls/hr TPN CONT IV ; Start at 22:00; Stop 12/28/18 at 21:59; Status DC Lidocaine/Sodium Bicarbonate (Buffered Lidocaine 1%) 3 ml 1X ONCE INJ ; Start 12/28/18 at 09:00; Stop 12/28/18 at 09:01; Status Cancel Benzocaine (Hurricaine One) 1 spray 1X ONCE MM Last administered on 12/28/18at 09:32; Start 12/28/18 at 09:30; Stop 12/28/18 at 09:33; Status DC Sodium Acetate 90 meq/Potassium Chloride 50 meq/ Potassium Phosphate 13.6 mmol/ Magnesium Sulfate 15 meq/ Calcium Gluconate 5 meq/ Multivitamins 10 ml/Chromium / Copper/Manganese/ Seleni/Zn 1 ml/ Total Parenteral Nutrition/Amino Acids/ Dextrose/ Fat Emulsion Intravenous 1,512 ml @ 63 mls/hr TPN CONT IV Last administered on 12/28/18at 22:06; Start 12/28/18 at 22:00; Stop 12/29/18 at 21:59 ; Status DC Iohexol (Omnipaque 300 Mg/ml) 400 ml 1X ONCE PO Last administered on at 08:15; Start 12/29/18 at 06:45; Stop 12/29/18 at 06:46; Status DC Info (CONTRAST GIVEN -- Rx MONITORING) 1 each PRN DAILY PRN MC SEE COMMENTS; Start 12/29/18 at 06:45; Stop 12/31/18 at 06:44; Status DC Iohexol (Omnipaque 300 Mg/ml) 400 ml 1X ONCE PO ; Start 12/29/18 at 07:00; Stop 12/29/18 at 07:03; Status DC Info (CONTRAST GIVEN -- Rx MONITORING) 1 each PRN DAILY PRN MC SEE COMMENTS; Start 12/29/18 at 07:15; Stop 12/31/18 at 07:14; Status DC Meropenem 500 mg/ Sodium Chloride 50 ml @ 100 mls/hr Q6HRS IV Last administered on 01/05/19at 12:53; Start 12/29/18 at 12:00 Multi-Ingredient Ointment (Analgesic Enloe) 1 ranjith PRN QID PRN TP MUSCLE PAIN Last administered on 12/29/18at 14:40; Start 12/29/18 at 13:00 Sodium Acetate 90 meq/Potassium Chloride 50 meq/ Potassium Phosphate 13.6 mmol/ Magnesium Sulfate 15 meq/ Calcium Gluconate 5 meq/ Multivitamins 10 ml/Chromium / Copper/Manganese/ Seleni/Zn 1 ml/ Total Parenteral Nutrition/Amino Acids/ Dextrose/ Fat Emulsion Intravenous 1,512 ml @ 63 mls/hr TPN CONT IV Last administered on 12/29/18at 21:40; Start 12/29/18 at 22:00; Stop 12/30/18 at 21:59 ; Status DC Morphine Sulfate (Morphine Sulfate) 2 mg PRN Q4HRS PRN IV SEVERE PAIN Last administered on 12/30/18at 19:50; Start 12/30/18 at 03:30; Stop 12/30/18 at 21:33 ; Status DC Propofol 20 ml @ As Directed STK-MED ONCE IV ; Start 12/30/18 at 12:51; Stop at 12:52; Status DC Dexamethasone Sodium Phosphate (Decadron) 20 mg STK-MED ONCE .ROUTE ; Start at 12:51; Stop 12/30/18 at 12:52; Status DC Lidocaine HCl (Lidocaine Pf 2% Vial) 5 ml STK-MED ONCE .ROUTE ; Start 12/30/18 at 12:51; Stop 12/30/18 at 12:52; Status DC Ondansetron HCl (Zofran) 4 mg STK-MED ONCE .ROUTE ; Start 12/30/18 at 12:51; Stop 12/30/18 at 12:52; Status DC Rocuronium [place] (Zemuron) 50 mg STK-MED ONCE .ROUTE ; Start 12/30/18 at 12:51 ; Stop 12/30/18 at 12:52; Status DC Succinylcholine Chloride (Anectine) 200 mg STK-MED ONCE .ROUTE ; Start 12/30/18 at 12:51; Stop 12/30/18 at 12:52; Status DC Fentanyl Citrate (Fentanyl 5ml Vial) 250 mcg STK-MED ONCE .ROUTE ; Start at 13:49; Stop 12/30/18 at 13:50; Status DC Sodium Chloride 90 meq/Potassium Chloride 50 meq/ Potassium Phosphate 13.6 mmol/ Magnesium Sulfate 15 meq/ Multivitamins 10 ml/Chromium/ Copper/Manganese/ Seleni /Zn 1 ml/ Total Parenteral Nutrition/Amino Acids/Dextrose/ Fat Emulsion Intravenous 1,512 ml @ 63 mls/hr TPN CONT IV Last administered on 12/30/18at 23:43; Start 12/30/18 at 22:00; Stop 12/31/18 at 21:59; Status DC Vasopressin (Vasostrict) 20 unit STK-MED ONCE .ROUTE ; Start 12/30/18 at 15:00; Stop 12/30/18 at 15:01; Status DC Sodium Chloride (SODIUM CHLORIDE 20ml) 20 ml STK-MED ONCE IJ ; Start 12/30/18 at 15:01; Stop 12/30/18 at 15:02; Status DC Albumin Human 500 ml @ As Directed STK-MED ONCE IV ; Start 12/30/18 at 15:01; Stop 12/30/18 at 15:02; Status DC Glycopyrrolate (Robinul) 1 mg STK-MED ONCE .ROUTE ; Start 12/30/18 at 15:21; Stop 12/30/18 at 15:22; Status DC Neostigmine Methylsulfate (Bloxiverz) 10 mg STK-MED ONCE .ROUTE ; Start at 15:21; Stop 12/30/18 at 15:22; Status DC Albuterol/ Ipratropium (Duoneb) 3 ml STK-MED ONCE .ROUTE ; Start 12/30/18 at 15: 45; Stop 12/30/18 at 15:46; Status DC Fentanyl Citrate (Fentanyl 2ml Vial) 100 mcg STK-MED ONCE .ROUTE ; Start at 16:56; Stop 12/30/18 at 16:57; Status DC Ondansetron HCl (Zofran) 4 mg PRN Q6HRS PRN IV NAUSEA/VOMITING; Start 12/30/18 at 17:15; Stop 12/30/18 at 21:35; Status DC Fentanyl Citrate (Fentanyl 2ml Vial) 25 mcg PRN Q5MIN PRN IV MILD PAIN Last administered on 12/30/18at 17:15; Start 12/30/18 at 17:15; Stop 12/30/18 at 21:35 ; Status DC Fentanyl Citrate (Fentanyl 2ml Vial) 50 mcg PRN Q5MIN PRN IV MODERATE TO SEVERE PAIN Last administered on 12/30/18at 17:57; Start 12/30/18 at 17:15; Stop 12/30/18 at 21:35; Status DC Morphine Sulfate (Morphine Sulfate) 1 mg PRN Q10MIN PRN IV SEVERE PAIN; Start 12/30/18 at 17:15; Stop 12/31/18 at 17:14; Status DC Ringer's Solution 1,000 ml @ 30 mls/hr Q24H IV Last administered on 12/30/18at 18:09; Start 12/30/18 at 17:10; Stop 12/30/18 at 21:33; Status DC Lidocaine HCl (Xylocaine-Mpf 1% 2ml Vial) 2 ml 1X PRN PRN ID IV START; Start at 17:15; Stop 12/30/18 at 21:35; Status DC Hydromorphone HCl (Dilaudid) 0.5 mg PRN Q10MIN PRN IV SEV PAIN, Second choice; Start 12/30/18 at 17:15; Stop 12/30/18 at 21:35; Status DC Prochlorperazine Edisylate (Compazine) 5 mg PACU PRN PRN IV NAUSEA, MRX1; Start 12/30/18 at 17:15; Stop 12/30/18 at 21:35; Status DC Albumin Human 100 ml @ 100 mls/hr 1X ONCE IV Last administered on 12/30/18at 22:00; Start 12/30/18 at 22:00; Stop 12/30/18 at 22:59; Status DC Ringer's Solution 500 ml @ 500 mls/hr 1X ONCE IV Last administered on at 22:00; Start 12/30/18 at 22:00; Stop 12/30/18 at 22:59; Status DC Ringer's Solution 1,000 ml @ 100 mls/hr Q10H IV Last administered on at 00:58; Start 12/30/18 at 23:00; Stop 01/01/19 at 09:30; Status DC Hydromorphone HCl (Dilaudid) 0.5 mg PRN Q2HR PRN IV MODERATE PAIN Last administered on 01/04/19at 10:08; Start 12/30/18 at 21:30; Stop 01/04/19 at 15:05 ; Status DC Hydromorphone HCl (Dilaudid) 1 mg PRN Q2HR PRN IV SEVERE PAIN Last administered on 01/04/19at 04:51; Start 12/30/18 at 21:30; Stop 01/04/19 at 15:05 ; Status DC Insulin Human Lispro (HumaLOG) 0-5 UNITS Q6HRS SQ Last administered on at 12:57; Start 12/31/18 at 00:30 Sodium Chloride 90 meq/Potassium Chloride 30 meq/ Potassium Phosphate 13.6 mmol/ Magnesium Sulfate 15 meq/ Calcium Gluconate 5 meq/ Multivitamins 10 ml/Chromium / Copper/Manganese/ Seleni/Zn 1 ml/ Total Parenteral Nutrition/Amino Acids/ Dextrose/ Fat Emulsion Intravenous 1,512 ml @ 63 mls/hr TPN CONT IV Last administered on 12/31/18at 21:58; Start 12/31/18 at 22:00; Stop 01/01/19 at 21:59 ; Status DC Sodium Chloride 90 meq/Potassium Chloride 30 meq/ Potassium Phosphate 13.6 mmol/ Magnesium Sulfate 15 meq/ Calcium Gluconate 5 meq/ Multivitamins 10 ml/Chromium / Copper/Manganese/ Seleni/Zn 1 ml/ Total Parenteral Nutrition/Amino Acids/ Dextrose/ Fat Emulsion Intravenous 1,512 ml @ 63 mls/hr TPN CONT IV Last administered on 01/01/19at 21:09; Start 01/01/19 at 22:00; Stop 01/02/19 at 21:59 ; Status DC Vancomycin HCl (Vanco Per Pharmacy) 1 each PRN DAILY PRN MC SEE COMMENTS Last administered on 01/03/19at 10:18; Start 01/01/19 at 11:15; Stop 01/03/19 at 11:23 ; Status DC Vancomycin HCl 2 gm/Sodium Chloride 500 ml @ 250 mls/hr ONCE ONCE IV Last administered on 01/01/19at 12:28; Start 01/01/19 at 12:00; Stop 01/01/19 at 13:59 ; Status DC Vancomycin HCl 1.25 gm/Sodium Chloride 250 ml @ 166.667 mls/hr Q24H IV ; Start 01/01/19 at 12:00; Status Cancel Vancomycin HCl (Vancomycin Trough Level) 1 each 1X ONCE MC ; Start 01/03/19 at 11:30; Stop 01/03/19 at 11:31; Status Cancel Vancomycin HCl 1.25 gm/Sodium Chloride 250 ml @ 166.667 mls/hr Q24H IV Last administered on 01/02/19at 13:04; Start 01/02/19 at 12:00; Stop 01/03/19 at 11:23 ; Status DC Albuterol/ Ipratropium (Duoneb) 3 ml 1X ONCE NEB Last administered on at 08:19; Start 01/02/19 at 07:30; Stop 01/02/19 at 07:31; Status DC Albuterol/ Ipratropium (Duoneb) 3 ml Q4HRS NEB Last administered on 01/05/19at 16:19; Start 01/02/19 at 12:00 Furosemide (Lasix) 20 mg 1X ONCE IVP Last administered on 01/02/19at 07:36; Start 01/02/19 at 07:30; Stop 01/02/19 at 07:31; Status DC Sodium Chloride 90 meq/Potassium Chloride 30 meq/ Potassium Phosphate 13.6 mmol/ Magnesium Sulfate 15 meq/ Calcium Gluconate 5 meq/ Multivitamins 10 ml/Chromium / Copper/Manganese/ Seleni/Zn 1 ml/ Total Parenteral Nutrition/Amino Acids/ Dextrose/ Fat Emulsion Intravenous 1,512 ml @ 63 mls/hr TPN CONT IV Last administered on 01/02/19at 21:20; Start 01/02/19 at 22:00; Stop 01/03/19 at 21:59 ; Status DC Sodium Chloride 90 meq/Potassium Chloride 30 meq/ Potassium Phosphate 13.6 mmol/ Magnesium Sulfate 15 meq/ Multivitamins 10 ml/Chromium/ Copper/Manganese/ Seleni /Zn 1 ml/ Insulin Human Regular 10 unit/ Total Parenteral Nutrition/Amino Acids/ Dextrose/ Fat Emulsion Intravenous 1,512 ml @ 63 mls/hr TPN CONT IV Last administered on 01/03/19at 22:07; Start 01/03/19 at 22:00; Stop 01/04/19 at 21:59 ; Status DC Sodium Chloride 90 meq/Potassium Chloride 30 meq/ Potassium Phosphate 13.6 mmol/ Magnesium Sulfate 15 meq/ Multivitamins 10 ml/Chromium/ Copper/Manganese/ Seleni /Zn 1 ml/ Insulin Human Regular 10 unit/ Total Parenteral Nutrition/Amino Acids/ Dextrose/ Fat Emulsion Intravenous 1,512 ml @ 63 mls/hr TPN CONT IV Last administered on 01/04/19at 22:11; Start 01/04/19 at 22:00; Stop 01/05/19 at 21:59 Hydromorphone HCl (Dilaudid) 0.5 mg PRN Q6HRS PRN IV MODERATE PAIN Last administered on 01/05/19at 16:20; Start 01/04/19 at 15:15 Hydromorphone HCl (Dilaudid) 1 mg PRN Q6HRS PRN IV SEVERE PAIN Last administered on 01/05/19at 02:18; Start 01/04/19 at 15:15 Dextrose (Dextrose 50%-Water Syringe) 25 gm STK-MED ONCE IV ; Start 01/04/19 at 08:50; Stop 01/05/19 at 08:26; Status DC Sodium Chloride 90 meq/Potassium Chloride 30 meq/ Potassium Phosphate 13.6 mmol/ Magnesium Sulfate 15 meq/ Multivitamins 10 ml/Chromium/ Copper/Manganese/ Seleni /Zn 1 ml/ Insulin Human Regular 10 unit/ Total Parenteral Nutrition/Amino Acids/ Dextrose/ Fat Emulsion Intravenous 1,512 ml @ 63 mls/hr TPN CONT IV ; Start at 22:00; Stop 01/06/19 at 21:59 Budesonide (Pulmicort) 0.5 mg RTBID NEB Last administered on 01/05/19at 16:19; Start 01/05/19 at 12:00 Active Scripts Active Chlorhexidine Gluconate 473 Ml Mouthwash 473 Ml MM BID 7 Days Vitamin C (Ascorbate Calcium) 500 Mg Tablet 500 Mg PO DAILY 30 Days Slow Release Iron (Ferrous Sulfate) 250 Mg Tablet.er 250 Mg PO DAILY 30 Days Protonix (Pantoprazole Sodium) 40 Mg Granpkt.dr 40 Mg PO DAILY 30 Days Reported Alprazolam 0.25 Mg Tablet 0.25 Mg PO DAILY Metformin Hcl Er (Metformin Hcl) 500 Mg Tab.er.24h 1 Tab PO DAILY Namenda (Memantine Hcl) 10 Mg Tablet 1 Tab PO BID Losartan Potassium 100 Mg Tablet 100 Mg PO DAILY Spironolactone 25 Mg Tablet 1 Tab PO DAILY Ventolin Hfa Inhaler (Albuterol Sulfate) 18 Gm Hfa.aer.ad 2 Puff INH Q4HRS Cymbalta (Duloxetine Hcl) 20 Mg Capsule.dr 90 Mg PO DAILY Requip (Ropinirole Hcl) 1 Mg Tablet 3 Mg PO DAILY Amlodipine Besylate 10 Mg Tablet 10 Mg PO DAILY Vitals/I & O Vital Sign - Last 24 Hours 01/04/19 01/04/19 01/04/19 01/04/19 19:00 19:36 19:36 20:43 Temp 97.9 97.9 Pulse 99 Resp 18 20 B/P (MAP) 141/87 (105) Pulse Ox 95 99 O2 Delivery Nasal Cannula Nasal Cannula Nasal Cannula Nasal Cannula O2 Flow Rate 2.0 2.5 2.5 3.0 01/04/19 01/04/19 01/05/19 01/05/19 23:00 23:12 02:18 02:48 Temp 97.9 97.9 Pulse 90 Resp 18 20 B/P (MAP) 122/76 (91) Pulse Ox 91 100 O2 Delivery Nasal Cannula Nasal Cannula Nasal Cannula Nasal Cannula O2 Flow Rate 2.0 3.0 2.5 2.5 01/05/19 01/05/19 01/05/19 01/05/19 02:58 04:15 07:00 08:06 Temp 98.3 97.0 98.3 97.0 Pulse 85 87 Resp 16 18 B/P (MAP) 115/73 (87) 136/64 (88) Pulse Ox 95 96 95 O2 Delivery Nasal Cannula Nasal Cannula Nasal Cannula Nasal Cannula O2 Flow Rate 2.0 3.0 3.0 3.0 01/05/19 01/05/19 01/05/1920/19 08:11 08:20 09:00 09:00 Pulse 87 87 B/P (MAP) 136/64 136/64 Pulse Ox 98 O2 Delivery Nasal Cannula Nasal Cannula O2 Flow Rate 3.0 3.0 01/05/19 01/05/19 01/05/19 01/05/19 09:24 11:00 13:11 15:20 Temp 98.0 98.9 98.0 98.9 Pulse 85 95 Resp 18 24 B/P (MAP) 127/76 (93) 118/77 (91) Pulse Ox 98 96 93 98 O2 Delivery Nasal Cannula Nasal Cannula Nasal Cannula Nasal Cannula O2 Flow Rate 3.0 3.0 3.0 3.0 01/05/19 01/05/19 16:20 16:20 Pulse Ox 96 O2 Delivery Nasal Cannula Nasal Cannula O2 Flow Rate 3.0 3.0 Intake and Output 01/04/19 01/04/19 01/05/19 15:00 23:00 07:00 Intake Total 20 ml 1510 ml Output Total 300 ml 500 ml Balance -280 ml 1010 ml ISACC SERRATO MD Jan 05, 2019 16:44
[2019-01-05 19:00] VITALS: BP 128/82
[2019-01-05] MEDS: rOPINIRole 1 MG TABLET. PO SCH (19:27)
[2019-01-05] MEDS ORDERED: DEXTROSE 70% IV SCH ×10 (22:00)
[2019-01-05] MEDS ORDERED: AMINO ACID IV SCH ×10 (22:00)
[2019-01-05] MEDS ORDERED: [UNRECOGNIZED DRUG - OTHER] IV SCH ×10 (22:00)
[2019-01-05] MEDS ORDERED: TOTAL PARENTERAL NUTRITION IV SCH ×10 (22:00)
[2019-01-05 22:36] VITALS: BP 120/72
--- NOTE | 2019-01-05 23:58 | NUR ---
01/05/19 at 1900, noted abdominal dressing very saturated, oozing noted of serosanguineous drainage coming around the bharat drain not inside bharat drain, pt kept dry and clean, dressing change 5x in 2 hours period, Dr Ponce informed regarding increased drainage output, ostomy bag place to collect profuse drainage to keep patient clean and dry, VS WNL, Incision area closed no open area noted, steri strips intact. at 2350 ostomy bag from bharat area noted 250 output serosanguineous output.will continue to monitor.
[2019-01-06 03:00] VITALS: BP 134/78
[2019-01-06] MEDS: IPRATRPIUM/ALBUTEROL 0.5/2.5MG 3 ML NEBU. NEB SCH ×6 (03:10→23:32)
[2019-01-06] MEDS: MEROPENEM 500 MG in IV NORMAL SALINE 50ML 50 ML IV SCH ×4 (05:52→23:05)
[2019-01-06 06:13] LABS: BASO % 0 % (0-3); EOS # 0.2 x10^3/uL (0.0-0.7); EOS % 2 % (0-3); HEMATOCRIT 24.5 % (36.0-47.0); HEMOGLOBIN 7.6 g/dL (12.0-15.5); LYMPH % 8 % (24-48); MEAN CORPUSCULAR HEMOGLOBIN 24 pg (25-35); MEAN CORPUSCULAR HGB CONC 31 g/dL (31-37); MEAN CORPUSCULAR VOLUME 78 fL (79-100); MONO # 0.9 x10^3/uL (0.0-1.1); MONO % 7 % (0-9); NEUT # 10.7 x10^3uL (1.8-7.7); NEUT % 83 % (31-73); PLATELET COUNT 356 x10^3/uL (140-400); RED BLOOD COUNT 3.16 x10^6/uL (3.50-5.40); RED CELL DISTRIBUTION WIDTH 24.1 % (11.5-14.5); WHITE BLOOD COUNT 12.9 x10^3/uL (4.0-11.0)
[2019-01-06] MEDS: HYDROmorphone 2 MG/ML VIAL IV PRN ×3 (06:18→20:30)
[2019-01-06] MEDS: PANTOPRAZOLE IV PUSH 40 MG VIAL. IVP SCH (06:18)
[2019-01-06 06:28] LABS: CALCIUM 8.8 mg/dL (8.5-10.1); CREATININE 0.6 mg/dL (0.6-1.0); GFR 117.9; MAGNESIUM 1.9 mg/dL (1.8-2.4); PHOSPHORUS 3.4 mg/dL (2.6-4.7); POTASSIUM 4.4 mmol/L (3.5-5.1)
[2019-01-06] MEDS: INSULIN LISPRO 300 UNITS/3 ML INSULN.PEN. SQ SCH ×3 (06:42→18:12)
[2019-01-06 07:00] VITALS: BP 122/78
[2019-01-06] MEDS: FERROUS SULFATE 325 MG TABLET. PO SCH (08:00)
--- NOTE | 2019-01-06 08:08 | PDOC ---
SURGICAL PROGRESS NOTE Subjective Patient comfortable. Denies pain. Passing flatus no BM. Wants to have liquids Vital Signs Vital Signs Date Time Temp Pulse Resp B/P (MAP) Pulse Ox O2 Delivery O2 Flow Rate FiO2 01/06/19 07:00 98.4 85 16 122/78 (93) 97 Nasal Cannula 3.0 98.4 I&O Intake and Output 01/06/19 06:59 Intake Total 50 ml Output Total 650 ml Balance -600 ml Intake Oral 50 ml Output Urine Total 300 ml Drainage Total 350 ml # Voids 4 PATIENT HAS A PILLAI: Yes General: Alert, Cooperative, mild distress Abdomen: Normal bowel sounds, Soft, No tenderness, Other (wound intact, serous drainage from bharat) Labs Laboratory Tests Test 01/04/19 11:54 01/04/19 17:00 01/05/19 00:13 01/05/19 06:15 Glucose (Fingerstick) 308 mg/dL (70-99) 298 mg/dL (70-99) 249 mg/dL (70-99) White Blood Count 13.9 x10^3/uL (4.0-11.0) Red Blood Count 3.21 x10^6/uL (3.50-5.40) Hemoglobin 8.0 g/dL (12.0-15.5) Hematocrit 25.0 % (36.0-47.0) Mean Corpuscular Volume 78 fL (79-100) Mean Corpuscular Hemoglobin 25 pg (25-35) Mean Corpuscular Hemoglobin Concent 32 g/dL (31-37) Red Cell Distribution Width 24.2 % (11.5-14.5) Platelet Count 324 x10^3/uL (140-400) Neutrophils (%) (Auto) 83 % (31-73) Lymphocytes (%) (Auto) 9 % (24-48) Monocytes (%) (Auto) 7 % (0-9) Eosinophils (%) (Auto) 1 % (0-3) Basophils (%) (Auto) 1 % (0-3) Neutrophils # (Auto) 11.5 x10^3uL (1.8-7.7) Lymphocytes # (Auto) 1.2 x10^3/uL (1.0-4.8) Monocytes # (Auto) 1.0 x10^3/uL (0.0-1.1) Eosinophils # (Auto) 0.2 x10^3/uL (0.0-0.7) Basophils # (Auto) 0.1 x10^3/uL (0.0-0.2) Sodium Level 145 mmol/L (136-145) Potassium Level 4.4 mmol/L (3.5-5.1) Chloride Level 107 mmol/L (98-107) Carbon Dioxide Level 31 mmol/L (21-32) Anion Gap 7 (6-14) Blood Urea Nitrogen 27 mg/dL (7-20) Creatinine 0.7 mg/dL (0.6-1.0) Estimated GFR (Cockcroft-Gault) 98.7 Glucose Level 312 mg/dL (70-99) Calcium Level 8.5 mg/dL (8.5-10.1) Phosphorus Level 3.8 mg/dL (2.6-4.7) Magnesium Level 1.8 mg/dL (1.8-2.4) Test 01/05/19 06:18 01/05/19 11:04 01/06/19 06:00 Glucose (Fingerstick) 232 mg/dL (70-99) 306 mg/dL (70-99) White Blood Count 12.9 x10^3/uL (4.0-11.0) Red Blood Count 3.16 x10^6/uL (3.50-5.40) Hemoglobin 7.6 g/dL (12.0-15.5) Hematocrit 24.5 % (36.0-47.0) Mean Corpuscular Volume 78 fL (79-100) Mean Corpuscular Hemoglobin 24 pg (25-35) Mean Corpuscular Hemoglobin Concent 31 g/dL (31-37) Red Cell Distribution Width 24.1 % (11.5-14.5) Platelet Count 356 x10^3/uL (140-400) Neutrophils (%) (Auto) 83 % (31-73) Lymphocytes (%) (Auto) 8 % (24-48) Monocytes (%) (Auto) 7 % (0-9) Eosinophils (%) (Auto) 2 % (0-3) Basophils (%) (Auto) 0 % (0-3) Neutrophils # (Auto) 10.7 x10^3uL (1.8-7.7) Lymphocytes # (Auto) 1.0 x10^3/uL (1.0-4.8) Monocytes # (Auto) 0.9 x10^3/uL (0.0-1.1) Eosinophils # (Auto) 0.2 x10^3/uL (0.0-0.7) Basophils # (Auto) 0.0 x10^3/uL (0.0-0.2) Sodium Level 149 mmol/L (136-145) Potassium Level 4.4 mmol/L (3.5-5.1) Chloride Level 111 mmol/L (98-107) Carbon Dioxide Level 32 mmol/L (21-32) Anion Gap 6 (6-14) Blood Urea Nitrogen 26 mg/dL (7-20) Creatinine 0.6 mg/dL (0.6-1.0) Estimated GFR (Cockcroft-Gault) 117.9 Glucose Level 302 mg/dL (70-99) Calcium Level 8.8 mg/dL (8.5-10.1) Phosphorus Level 3.4 mg/dL (2.6-4.7) Magnesium Level 1.9 mg/dL (1.8-2.4) Laboratory Tests Test 01/05/19 11:04 01/06/19 06:00 Glucose (Fingerstick) 306 mg/dL (70-99) White Blood Count 12.9 x10^3/uL (4.0-11.0) Red Blood Count 3.16 x10^6/uL (3.50-5.40) Hemoglobin 7.6 g/dL (12.0-15.5) Hematocrit 24.5 % (36.0-47.0) Mean Corpuscular Volume 78 fL (79-100) Mean Corpuscular Hemoglobin 24 pg (25-35) Mean Corpuscular Hemoglobin Concent 31 g/dL (31-37) Red Cell Distribution Width 24.1 % (11.5-14.5) Platelet Count 356 x10^3/uL (140-400) Neutrophils (%) (Auto) 83 % (31-73) Lymphocytes (%) (Auto) 8 % (24-48) Monocytes (%) (Auto) 7 % (0-9) Eosinophils (%) (Auto) 2 % (0-3) Basophils (%) (Auto) 0 % (0-3) Neutrophils # (Auto) 10.7 x10^3uL (1.8-7.7) Lymphocytes # (Auto) 1.0 x10^3/uL (1.0-4.8) Monocytes # (Auto) 0.9 x10^3/uL (0.0-1.1) Eosinophils # (Auto) 0.2 x10^3/uL (0.0-0.7) Basophils # (Auto) 0.0 x10^3/uL (0.0-0.2) Sodium Level 149 mmol/L (136-145) Potassium Level 4.4 mmol/L (3.5-5.1) Chloride Level 111 mmol/L (98-107) Carbon Dioxide Level 32 mmol/L (21-32) Anion Gap 6 (6-14) Blood Urea Nitrogen 26 mg/dL (7-20) Creatinine 0.6 mg/dL (0.6-1.0) Estimated GFR (Cockcroft-Gault) 117.9 Glucose Level 302 mg/dL (70-99) Calcium Level 8.8 mg/dL (8.5-10.1) Phosphorus Level 3.4 mg/dL (2.6-4.7) Magnesium Level 1.9 mg/dL (1.8-2.4) Assessment/Plan Improving, passing flatus. Tolerated removal of NGT Will start clears slowly. DAYLIN WEI MD Jan 06, 2019 08:08
[2019-01-06] MEDS: BUDESONIDE 0.5 MG/2 ML NEBU. NEB SCH ×2 (08:34→19:49)
--- NOTE | 2019-01-06 08:43 | PDOC ---
Infectious Disease Note Subjective Subjective Better. Had some apple juice Breathing ok - No SOA Denies N/V/F/C/Rash. + flatus O2 Vital Sign Vital Signs Vital Signs Date Time Temp Pulse Resp B/P (MAP) Pulse Ox O2 Delivery O2 Flow Rate FiO2 01/06/19 07:00 98.4 85 16 122/78 (93) 97 Nasal Cannula 3.0 98.4 Physical Exam PHYSICAL EXAM GENERAL: In bed, alert, relaxed appearance, Looks better HEENT: Oral cavity pink, dry NECK: Supple LUNGS: Diminished aeration bases HEART: S1, S2 ABDOMEN: Distended but less, soft.. Incisions intact drain at base and ostomy bag : Freeman EXTREMITIES: LLE 1+ edema. no cyanosis SKIN: No rash. Rectal wound. NEUROLOGIC: Alert, responding appropriately RUE-PICC (12/23) clean Labs Lab Laboratory Tests Test 01/05/19 11:04 01/06/19 06:00 Glucose (Fingerstick) 306 mg/dL (70-99) White Blood Count 12.9 x10^3/uL (4.0-11.0) Red Blood Count 3.16 x10^6/uL (3.50-5.40) Hemoglobin 7.6 g/dL (12.0-15.5) Hematocrit 24.5 % (36.0-47.0) Mean Corpuscular Volume 78 fL (79-100) Mean Corpuscular Hemoglobin 24 pg (25-35) Mean Corpuscular Hemoglobin Concent 31 g/dL (31-37) Red Cell Distribution Width 24.1 % (11.5-14.5) Platelet Count 356 x10^3/uL (140-400) Neutrophils (%) (Auto) 83 % (31-73) Lymphocytes (%) (Auto) 8 % (24-48) Monocytes (%) (Auto) 7 % (0-9) Eosinophils (%) (Auto) 2 % (0-3) Basophils (%) (Auto) 0 % (0-3) Neutrophils # (Auto) 10.7 x10^3uL (1.8-7.7) Lymphocytes # (Auto) 1.0 x10^3/uL (1.0-4.8) Monocytes # (Auto) 0.9 x10^3/uL (0.0-1.1) Eosinophils # (Auto) 0.2 x10^3/uL (0.0-0.7) Basophils # (Auto) 0.0 x10^3/uL (0.0-0.2) Sodium Level 149 mmol/L (136-145) Potassium Level 4.4 mmol/L (3.5-5.1) Chloride Level 111 mmol/L (98-107) Carbon Dioxide Level 32 mmol/L (21-32) Anion Gap 6 (6-14) Blood Urea Nitrogen 26 mg/dL (7-20) Creatinine 0.6 mg/dL (0.6-1.0) Estimated GFR (Cockcroft-Gault) 117.9 Glucose Level 302 mg/dL (70-99) Calcium Level 8.8 mg/dL (8.5-10.1) Phosphorus Level 3.4 mg/dL (2.6-4.7) Magnesium Level 1.9 mg/dL (1.8-2.4) Micro Microbiology 01/01/19 Blood Culture - Preliminary, Resulted NO GROWTH AFTER 2 DAYS 12/25/18 - Final, Complete 12/25/18 - Final, Complete 12/25/18 - Final, Complete 12/25/18 - Final, Complete 12/25/18 Gram Stain Evaluation - Final, Complete 12/25/18 Sputum Culture - Final, Complete 12/25/18 Sputum Result 1 - Final, Complete Objective Assessment Small bowel obstruction at previous anastomotic site. s/p exploratory laparotomy with extended right hemicolectomy and primary anastomosis, 12/30. Leukocytosis - improving - s/p Dexamethasone 12/30 S/P laparoscopic-assisted right colon resection and hemorrhoidectomy on 2018 for bleeding cecal ulcer and hemorrhoids; path negative for malignancy . Left pleural effusion with left basilar atelectasis or infiltrate. cxr 01/02 shows improvement COPD Pneumonia sputum c/s nonrevealing, 12/25 - yeast Ileus - more distended today but + BS Allergies to PCN Plan Plan of Care cont Merrem for now wean soon vanc added per primary on 01/01 d/c'd 01/03 Monitor labs in am/temp f/u BC maintain aspiration precautions cont supportive care JI WAY MD Jan 06, 2019 08:43
[2019-01-06] MEDS: DULoxetine HCL 30 MG CAPSULE.DR PO SCH (09:00)
[2019-01-06] MEDS: amLODIPine BESYLATE 10 MG TABLET PO SCH (09:00)
[2019-01-06] MEDS: SPIRONOLACTONE 25 MG TABLET PO SCH (09:00)
[2019-01-06] MEDS: ASCORBIC ACID 500 MG TABLET PO SCH (09:00)
[2019-01-06] MEDS: MEMANTINE 10 MG TABLET. PO SCH ×2 (09:00→21:00)
[2019-01-06] MEDS: DOCUSATE SODIUM 100 MG CAPSULE. PO SCH (09:00)
[2019-01-06] MEDS: LOSARTAN POTASSIUM 50 MG TABLET. PO SCH (09:00)
[2019-01-06] MEDS: ENOXAPARIN 40 MG/0.4 ML SYRINGE. SQ SCH (09:01)
[2019-01-06] MEDS: CHLORHEXIDINE 0.12% 15 ML MOUTHWASH. MM SCH ×2 (09:01→21:00)
--- NOTE | 2019-01-06 09:38 | PDOC ---
PROGRESS NOTES Chief Complaint Chief Complaint CC: Anemia, colonic Avms Acute hypoxic respiratory failure, improving Cecal ulceration - s/p rt colon resection and hemorrhoidectomy 12/17 SBO - s/p ex lap, extended rt hemicolectomy POD4 VISHNU COPD Sepsis/Leukopenia - meropenem and vanco, ID following History of Present Illness History of Present Illness Pt is a 73 y/o female who is s/p rt colon resection and hemorrhoidectomy on and s/p ex lap, extended rt hemicolectomy NG tube out feeling better, not much bowel sounds still very weak Vitals Vitals Vital Signs Date Time Temp Pulse Resp B/P (MAP) Pulse Ox O2 Delivery O2 Flow Rate FiO2 01/06/19 08:37 90 Nasal Cannula 3.0 01/06/19 07:00 98.4 85 16 122/78 (93) 98.4 Physical Exam Physical Exam GENERAL: In bed, alert, relaxed appearance, Looks better HEENT: Oral cavity pink, dry NECK: Supple LUNGS: Diminished aeration bases HEART: S1, S2 ABDOMEN: Distended but less, soft.. Incisions intact drain at base and ostomy bag : Freeman EXTREMITIES: LLE 1+ edema. no cyanosis SKIN: No rash. Rectal wound. NEUROLOGIC: Alert, responding appropriately RUE-PICC (12/23) clean General: Alert, Cooperative, mild distress Heart: Regular rate, No murmurs Lungs: Wheezing Abdomen: Normal bowel sounds, Soft, No tenderness, Other (wound intact, serous drainage from bharat) Extremities: No clubbing, No cyanosis, No edema Skin: No breakdown, No significant lesion Labs LABS Laboratory Tests Test 01/05/19 11:04 01/06/19 06:00 Glucose (Fingerstick) 306 mg/dL (70-99) White Blood Count 12.9 x10^3/uL (4.0-11.0) Red Blood Count 3.16 x10^6/uL (3.50-5.40) Hemoglobin 7.6 g/dL (12.0-15.5) Hematocrit 24.5 % (36.0-47.0) Mean Corpuscular Volume 78 fL (79-100) Mean Corpuscular Hemoglobin 24 pg (25-35) Mean Corpuscular Hemoglobin Concent 31 g/dL (31-37) Red Cell Distribution Width 24.1 % (11.5-14.5) Platelet Count 356 x10^3/uL (140-400) Neutrophils (%) (Auto) 83 % (31-73) Lymphocytes (%) (Auto) 8 % (24-48) Monocytes (%) (Auto) 7 % (0-9) Eosinophils (%) (Auto) 2 % (0-3) Basophils (%) (Auto) 0 % (0-3) Neutrophils # (Auto) 10.7 x10^3uL (1.8-7.7) Lymphocytes # (Auto) 1.0 x10^3/uL (1.0-4.8) Monocytes # (Auto) 0.9 x10^3/uL (0.0-1.1) Eosinophils # (Auto) 0.2 x10^3/uL (0.0-0.7) Basophils # (Auto) 0.0 x10^3/uL (0.0-0.2) Sodium Level 149 mmol/L (136-145) Potassium Level 4.4 mmol/L (3.5-5.1) Chloride Level 111 mmol/L (98-107) Carbon Dioxide Level 32 mmol/L (21-32) Anion Gap 6 (6-14) Blood Urea Nitrogen 26 mg/dL (7-20) Creatinine 0.6 mg/dL (0.6-1.0) Estimated GFR (Cockcroft-Gault) 117.9 Glucose Level 302 mg/dL (70-99) Calcium Level 8.8 mg/dL (8.5-10.1) Phosphorus Level 3.4 mg/dL (2.6-4.7) Magnesium Level 1.9 mg/dL (1.8-2.4) Comment Review of Relevant I have reviewed the following items abdifatah (where applicable) has been applied. Labs Laboratory Tests Test 01/04/19 11:54 01/04/19 17:00 01/05/19 00:13 01/05/19 06:15 Glucose (Fingerstick) 308 mg/dL (70-99) 298 mg/dL (70-99) 249 mg/dL (70-99) White Blood Count 13.9 x10^3/uL (4.0-11.0) Red Blood Count 3.21 x10^6/uL (3.50-5.40) Hemoglobin 8.0 g/dL (12.0-15.5) Hematocrit 25.0 % (36.0-47.0) Mean Corpuscular Volume 78 fL (79-100) Mean Corpuscular Hemoglobin 25 pg (25-35) Mean Corpuscular Hemoglobin Concent 32 g/dL (31-37) Red Cell Distribution Width 24.2 % (11.5-14.5) Platelet Count 324 x10^3/uL (140-400) Neutrophils (%) (Auto) 83 % (31-73) Lymphocytes (%) (Auto) 9 % (24-48) Monocytes (%) (Auto) 7 % (0-9) Eosinophils (%) (Auto) 1 % (0-3) Basophils (%) (Auto) 1 % (0-3) Neutrophils # (Auto) 11.5 x10^3uL (1.8-7.7) Lymphocytes # (Auto) 1.2 x10^3/uL (1.0-4.8) Monocytes # (Auto) 1.0 x10^3/uL (0.0-1.1) Eosinophils # (Auto) 0.2 x10^3/uL (0.0-0.7) Basophils # (Auto) 0.1 x10^3/uL (0.0-0.2) Sodium Level 145 mmol/L (136-145) Potassium Level 4.4 mmol/L (3.5-5.1) Chloride Level 107 mmol/L (98-107) Carbon Dioxide Level 31 mmol/L (21-32) Anion Gap 7 (6-14) Blood Urea Nitrogen 27 mg/dL (7-20) Creatinine 0.7 mg/dL (0.6-1.0) Estimated GFR (Cockcroft-Gault) 98.7 Glucose Level 312 mg/dL (70-99) Calcium Level 8.5 mg/dL (8.5-10.1) Phosphorus Level 3.8 mg/dL (2.6-4.7) Magnesium Level 1.8 mg/dL (1.8-2.4) Test 01/05/19 06:18 01/05/19 11:04 01/06/19 06:00 Glucose (Fingerstick) 232 mg/dL (70-99) 306 mg/dL (70-99) White Blood Count 12.9 x10^3/uL (4.0-11.0) Red Blood Count 3.16 x10^6/uL (3.50-5.40) Hemoglobin 7.6 g/dL (12.0-15.5) Hematocrit 24.5 % (36.0-47.0) Mean Corpuscular Volume 78 fL (79-100) Mean Corpuscular Hemoglobin 24 pg (25-35) Mean Corpuscular Hemoglobin Concent 31 g/dL (31-37) Red Cell Distribution Width 24.1 % (11.5-14.5) Platelet Count 356 x10^3/uL (140-400) Neutrophils (%) (Auto) 83 % (31-73) Lymphocytes (%) (Auto) 8 % (24-48) Monocytes (%) (Auto) 7 % (0-9) Eosinophils (%) (Auto) 2 % (0-3) Basophils (%) (Auto) 0 % (0-3) Neutrophils # (Auto) 10.7 x10^3uL (1.8-7.7) Lymphocytes # (Auto) 1.0 x10^3/uL (1.0-4.8) Monocytes # (Auto) 0.9 x10^3/uL (0.0-1.1) Eosinophils # (Auto) 0.2 x10^3/uL (0.0-0.7) Basophils # (Auto) 0.0 x10^3/uL (0.0-0.2) Sodium Level 149 mmol/L (136-145) Potassium Level 4.4 mmol/L (3.5-5.1) Chloride Level 111 mmol/L (98-107) Carbon Dioxide Level 32 mmol/L (21-32) Anion Gap 6 (6-14) Blood Urea Nitrogen 26 mg/dL (7-20) Creatinine 0.6 mg/dL (0.6-1.0) Estimated GFR (Cockcroft-Gault) 117.9 Glucose Level 302 mg/dL (70-99) Calcium Level 8.8 mg/dL (8.5-10.1) Phosphorus Level 3.4 mg/dL (2.6-4.7) Magnesium Level 1.9 mg/dL (1.8-2.4) Laboratory Tests Test 01/05/19 11:04 01/06/19 06:00 Glucose (Fingerstick) 306 mg/dL (70-99) White Blood Count 12.9 x10^3/uL (4.0-11.0) Red Blood Count 3.16 x10^6/uL (3.50-5.40) Hemoglobin 7.6 g/dL (12.0-15.5) Hematocrit 24.5 % (36.0-47.0) Mean Corpuscular Volume 78 fL (79-100) Mean Corpuscular Hemoglobin 24 pg (25-35) Mean Corpuscular Hemoglobin Concent 31 g/dL (31-37) Red Cell Distribution Width 24.1 % (11.5-14.5) Platelet Count 356 x10^3/uL (140-400) Neutrophils (%) (Auto) 83 % (31-73) Lymphocytes (%) (Auto) 8 % (24-48) Monocytes (%) (Auto) 7 % (0-9) Eosinophils (%) (Auto) 2 % (0-3) Basophils (%) (Auto) 0 % (0-3) Neutrophils # (Auto) 10.7 x10^3uL (1.8-7.7) Lymphocytes # (Auto) 1.0 x10^3/uL (1.0-4.8) Monocytes # (Auto) 0.9 x10^3/uL (0.0-1.1) Eosinophils # (Auto) 0.2 x10^3/uL (0.0-0.7) Basophils # (Auto) 0.0 x10^3/uL (0.0-0.2) Sodium Level 149 mmol/L (136-145) Potassium Level 4.4 mmol/L (3.5-5.1) Chloride Level 111 mmol/L (98-107) Carbon Dioxide Level 32 mmol/L (21-32) Anion Gap 6 (6-14) Blood Urea Nitrogen 26 mg/dL (7-20) Creatinine 0.6 mg/dL (0.6-1.0) Estimated GFR (Cockcroft-Gault) 117.9 Glucose Level 302 mg/dL (70-99) Calcium Level 8.8 mg/dL (8.5-10.1) Phosphorus Level 3.4 mg/dL (2.6-4.7) Magnesium Level 1.9 mg/dL (1.8-2.4) Microbiology 01/01/19 Blood Culture - Preliminary, Resulted NO GROWTH AFTER 4 DAYS 12/25/18 - Final, Complete 12/25/18 - Final, Complete 12/25/18 - Final, Complete 12/25/18 - Final, Complete 12/25/18 Gram Stain Evaluation - Final, Complete 12/25/18 Sputum Culture - Final, Complete 12/25/18 Sputum Result 1 - Final, Complete Medications Current Medications Sodium Chloride 1,000 ml @ 1,000 mls/hr 1X ONCE IV Last administered on 13:52; Start 12/14/18 at 13:30; Stop 12/14/18 at 14:29; Status DC Amlodipine Besylate (Norvasc) 10 mg DAILY PO Last administered on 12/26/18 10: 01; Start 12/14/18 at 17:00 Chlorhexidine Gluconate (Peridex) 15 ml BID MM Last administered on 01/06/19 09:01; Start 12/14/18 at 21:00 Non-Formulary Medication (Albuterol Sulfate (Ventolin Hfa Inhaler)) 2 puff Q4HRS INH ; Start 12/14/18 at 20:00; Status UNV Ascorbic Acid (Vitamin C) 500 mg DAILY PO Last administered on 12/22/18 10:30; Start 12/14/18 at 17:00 Duloxetine HCl (Cymbalta) 90 mg DAILY PO Last administered on 12/22/18 10:30; Start 12/14/18 at 17:00 Ferrous Sulfate (Feosol) 325 mg DAILYWBKFT PO Last administered on 12/22/18 10: 30; Start 12/14/18 at 17:00 Losartan Potassium (Cozaar) 100 mg DAILY PO Last administered on 12/22/18 10:29 ; Start 12/14/18 at 17:00 Memantine (Namenda) 10 mg BID PO Last administered on 12/26/18 21:25; Start at 21:00 Pantoprazole Sodium (Protonix) 40 mg DAILYAC PO Last administered on 12/22/18 05:28; Start 12/14/18 at 17:00; Stop 12/24/18 at 09:25; Status DC Ropinirole HCl (Requip) 3 mg QHS PO Last administered on 12/26/18at 21:25; Start 12/14/18 at 21:00 Spironolactone (Aldactone) 25 mg DAILY PO Last administered on 12/26/18at 10:42 ; Start 12/14/18 at 17:00 Albuterol Sulfate (Ventolin Neb Soln) 2.5 mg Q4HRS NEB Last administered on at 06:52; Start 12/14/18 at 20:00; Stop 01/02/19 at 07:24; Status DC Sodium Chloride 1,000 ml @ 80 mls/hr [id number] IV Last administered on 12/23/18at 15:25; Start 12/14/18 at 17:15; Stop 12/23/18 at 21:59; Status DC Acetaminophen (Tylenol) 650 mg PRN Q6HRS PRN PO Pain Last administered on at 21:27; Start 12/15/18 at 04:45; Stop 12/26/18 at 21:07; Status DC Polyethylene Glycol (miraLAX Powder BULK BOTTLE) 238 gm 1X ONCE PO Last administered on 12/15/18at 12:48; Start 12/15/18 at 12:00; Stop 12/15/18 at 12:01 ; Status DC Ondansetron HCl (Zofran) 4 mg PRN Q6HRS PRN IV NAUSEA/VOMITING; Start 12/16/18 at 07:00; Stop 12/17/18 at 06:59; Status DC Fentanyl Citrate (Fentanyl 2ml Vial) 25 mcg PRN Q5MIN PRN IV MILD PAIN; Start 12/16/18 at 07:00; Stop 12/16/18 at 16:33; Status DC Fentanyl Citrate (Fentanyl 2ml Vial) 50 mcg PRN Q5MIN PRN IV MODERATE TO SEVERE PAIN; Start 12/16/18 at 07:00; Stop 12/16/18 at 16:33; Status DC Morphine Sulfate (Morphine Sulfate) 1 mg PRN Q10MIN PRN IV SEVERE PAIN; Start 12/16/18 at 07:00; Stop 12/17/18 at 06:59; Status DC Ringer's Solution 1,000 ml @ 30 mls/hr Q24H IV Last administered on 12/16/18at 13:00; Start 12/16/18 at 07:00; Stop 12/16/18 at 18:59; Status DC Lidocaine HCl (Xylocaine-Mpf 1% 2ml Vial) 2 ml PRN 1X PRN ID IV START; Start at 07:00; Stop 12/17/18 at 06:59; Status DC Hydromorphone HCl (Dilaudid) 0.5 mg PRN Q10MIN PRN IV SEV PAIN, Second choice; Start 12/16/18 at 07:00; Stop 12/17/18 at 06:59; Status DC Prochlorperazine Edisylate (Compazine) 5 mg PACU PRN PRN IV NAUSEA, MRX1; Start 12/16/18 at 07:00; Stop 12/17/18 at 06:59; Status DC Midazolam HCl (Versed) 2 mg PRN 1X PRN IV PRIOR TO PROCEDURE; Start 12/16/18 at 07:15; Stop 12/17/18 at 07:14; Status DC Fentanyl Citrate (Fentanyl 2ml Vial) 25 mcg PRN Q5MIN PRN IV X 2 DOSES FOR PAIN ; Start 12/16/18 at 07:15; Stop 12/16/18 at 16:33; Status DC Fentanyl Citrate (Fentanyl 2ml Vial) 50 mcg PRN Q5MIN PRN IV X 2 DOSES FOR PAIN ; Start 12/16/18 at 07:15; Stop 12/16/18 at 16:34; Status DC Ringer's Solution 1,000 ml @ 125 mls/hr Q8H IV ; Start 12/16/18 at 07:13; Stop 12/16/18 at 19:12; Status DC Lidocaine HCl (Xylocaine-Mpf 1% 2ml Vial) 2 ml 1X PRN PRN ID IV START; Start at 07:15; Stop 12/17/18 at 07:14; Status DC Propofol 40 ml @ As Directed STK-MED ONCE IV ; Start 12/16/18 at 13:58; Stop at 14:00; Status DC Prochlorperazine Edisylate (Compazine) 5 mg PACU PRN PRN IV NAUSEA, MRX1; Start 12/17/18 at 07:00; Stop 12/18/18 at 06:59; Status DC Hydromorphone HCl (Dilaudid) 0.5 mg PRN Q10MIN PRN IV SEV PAIN, Second choice; Start 12/17/18 at 07:00; Stop 12/18/18 at 06:59; Status DC Lidocaine HCl (Xylocaine-Mpf 1% 2ml Vial) 2 ml PRN 1X PRN ID IV START; Start at 07:00; Stop 12/18/18 at 06:59; Status DC Ringer's Solution 1,000 ml @ 30 mls/hr Q24H IV Last administered on 12/17/18at 10:34; Start 12/17/18 at 07:00; Stop 12/17/18 at 18:59; Status DC Morphine Sulfate (Morphine Sulfate) 1 mg PRN Q10MIN PRN IV SEVERE PAIN; Start 12/17/18 at 07:00; Stop 12/18/18 at 06:59; Status DC Fentanyl Citrate (Fentanyl 2ml Vial) 50 mcg PRN Q5MIN PRN IV MODERATE TO SEVERE PAIN Last administered on 12/17/18at 11:13; Start 12/17/18 at 07:00; Stop at 06:59; Status DC Fentanyl Citrate (Fentanyl 2ml Vial) 25 mcg PRN Q5MIN PRN IV MILD PAIN; Start 12/17/18 at 07:00; Stop 12/18/18 at 06:59; Status DC Ondansetron HCl (Zofran) 4 mg PRN Q6HRS PRN IV NAUSEA/VOMITING; Start 12/17/18 at 07:00; Stop 12/18/18 at 06:59; Status DC Propofol 20 ml @ As Directed STK-MED ONCE IV ; Start 12/17/18 at 07:21; Stop 12/17 at 07:23; Status DC Albuterol Sulfate (Ventolin Neb Soln) 2.5 mg 1X ONCE NEB ; Start 12/17/18 at 07: 30; Stop 12/17/18 at 07:31; Status DC Lidocaine HCl (Lidocaine Pf 2% Vial) 5 ml STK-MED ONCE .ROUTE ; Start 12/17/18 at 07:21; Stop 12/17/18 at 07:23; Status DC Succinylcholine Chloride (Anectine) 200 mg STK-MED ONCE .ROUTE ; Start 12/17/18 at 07:21; Stop 12/17/18 at 07:23; Status DC Rocuronium [place] (Zemuron) 50 mg STK-MED ONCE .ROUTE ; Start 12/17/18 at 07:21 ; Stop 12/17/18 at 07:23; Status DC Fentanyl Citrate (Fentanyl 2ml Vial) 100 mcg STK-MED ONCE .ROUTE ; Start at 07:21; Stop 12/17/18 at 07:24; Status DC Cefazolin Sodium/ Dextrose 50 ml @ 100 mls/hr 1X ONCE IV Last administered on 12/17/18at 08:07; Start 12/17/18 at 07:45; Stop 12/17/18 at 08:18; Status DC Bupivacaine HCl/ Epinephrine Bitart (Sensorcain-Mpf Epi 0.5%-1:[id number]) 30 ml STK -MED ONCE .ROUTE Last administered on 12/17/18at 08:34; Start 12/17/18 at 07:46; Stop 12/17/18 at 07:49; Status DC Neomycin/ Polymyxin/ Bacitracin (Triple Antibiotic Ointment) 1 pkt STK-MED ONCE TP Last administered on 12/17/18at 10:07; Start 12/17/18 at 07:46; Stop 12/17/18 at 07:49; Status DC Neomycin/ Polymyxin/ Bacitracin (Triple Antibiotic Ointment) 1 pkt STK-MED ONCE TP Last administered on 12/17/18at 10:07; Start 12/17/18 at 07:46; Stop 12/17/18 at 07:49; Status DC Neomycin/ Polymyxin/ Bacitracin (Triple Antibiotic Ointment) 1 pkt STK-MED ONCE TP ; Start 12/17/18 at 07:47; Stop 12/17/18 at 07:49; Status DC Dexamethasone Sodium Phosphate (Decadron) 20 mg STK-MED ONCE .ROUTE ; Start 12/17 at 07:54; Stop 12/17/18 at 07:56; Status DC Hydrocortisone Sodium Succinate (Solu-CORTEF) 100 mg STK-MED ONCE .ROUTE ; Start 12/17/18 at 07:54; Stop 12/17/18 at 07:56; Status DC Desflurane (Suprane) 90 ml STK-MED ONCE IH ; Start 12/17/18 at 07:54; Stop at 07:56; Status DC Neostigmine Methylsulfate (Bloxiverz) 10 mg STK-MED ONCE .ROUTE ; Start 12/17/18 at 08:21; Stop 12/17/18 at 08:24; Status DC Glycopyrrolate (Robinul) 1 mg STK-MED ONCE .ROUTE ; Start 12/17/18 at 08:21; Stop 12/17/18 at 08:24; Status DC Phenylephrine HCl (Bogdan-Synephrine Inj) 10 mg STK-MED ONCE .ROUTE ; Start at 08:23; Stop 12/17/18 at 08:26; Status DC Desflurane (Suprane) 60 ml STK-MED ONCE IH ; Start 12/17/18 at 09:23; Stop at 09:26; Status DC Bupivacaine HCl/ Epinephrine Bitart (Sensorcain-Mpf Epi 0.5%-1:[id number]) 30 ml STK -MED ONCE .ROUTE Last administered on 12/17/18at 10:06; Start 12/17/18 at 09:41; Stop 12/17/18 at 09:43; Status DC Morphine Sulfate (Morphine Sulfate) 2 mg PRN Q2HR PRN IV PAIN Last administered on 12/25/18at 09:26; Start 12/17/18 at 10:15; Stop 12/25/18 at 17:54; Status DC Ketorolac Tromethamine (Toradol 15mg Vial) 15 mg Q6HRS IV Last administered on 12/18/18at 05:39; Start 12/17/18 at 12:00; Stop 12/18/18 at 10:00; Status DC Artificial Tears (Artificial Tears) 1 drop PRN Q15MIN PRN OU DRY EYE Last administered on 12/20/18at 21:28; Start 12/18/18 at 08:00 Docusate Sodium (Colace) 100 mg DAILY PO Last administered on 12/26/18at 10:01; Start 12/18/18 at 10:00 Throat Lozenges (Cepacol Sore Throat Lozenge) 1 kristyn PRN Q2HRS PRN PO SORE THROAT Last administered on 01/05/19 17:30; Start 12/18/18 at 14:00 Enoxaparin Sodium (Lovenox 40mg Syringe) 40 mg Q24H SQ Last administered on 09:01; Start 12/19/18 at 09:00 Ondansetron HCl (Zofran) 4 mg PRN Q6HRS PRN IV NAUSEA/VOMITING Last administered on 01/05/19 17:30; Start 12/19/18 at 11:30 Insulin Human Lispro (HumaLOG) 0-5 UNITS TIDWMEALS SQ Last administered on 12/30 18:23; Start 12/19/18 at 17:00; Stop 12/31/18 at 00:05; Status DC Dextrose (Dextrose 50%-Water Syringe) 12.5 gm PRN Q15MIN PRN IV SEE COMMENTS; Start 12/19/18 at 16:45 Levofloxacin/ Dextrose 100 ml @ 100 mls/hr 1X ONCE IV Last administered on 20:56; Start 12/19/18 at 21:00; Stop 12/19/18 at 21:59; Status DC Cefepime HCl (Maxipime) 2 gm Q12HR IVP Last administered on 12/29/18 10:02; Start 12/21/18 at 10:00; Stop 12/29/18 at 10:37; Status DC Sodium Chloride 1,000 ml @ 125 mls/hr 1X ONCE IV Last administered on 10:43; Start 12/21/18 at 09:45; Stop 12/21/18 at 17:44; Status DC Calcium Carbonate/ Glycine (Tums) 500 mg PRN AFTMEALHC PRN PO INDIGESTION Last administered on 12/21/18 13:10; Start 12/21/18 at 12:15 Lorazepam (Ativan) 1 mg 1X ONCE IV Last administered on 12/21/18 17:50; Start 12/21/18 at 17:30; Stop 12/21/18 at 17:31; Status DC Albuterol Sulfate (Ventolin Neb Soln) 2.5 mg PRN Q2HRS PRN NEB SHORTNESS OF BREATH Last administered on 12/26/18 10:26; Start 12/21/18 at 17:30 Nicotine (Nicoderm Cq 14mg) 1 patch PRN DAILY PRN TD SMOKING CESSATION Last administered on 12/26/18 09:59; Start 12/21/18 at 19:30 Lorazepam (Ativan) 1 mg 1X ONCE IV Last administered on 12/21/18at 23:45; Start 12/21/18 at 23:45; Stop 12/21/18 at 23:46; Status DC Lorazepam (Ativan) 1 mg PRN Q4HRS PRN IV ANXIETY / AGITATION Last administered on 12/22/18 11:15; Start 12/21/18 at 23:30; Stop 12/22/18 at 14:42; Status DC Sodium Chloride 1,000 ml @ 250 mls/hr 1X ONCE IV Last administered on 09:15; Start 12/22/18 at 09:15; Stop 12/22/18 at 13:14; Status DC Lidocaine/Sodium Bicarbonate (Buffered Lidocaine 1%) 3 ml STK-MED ONCE .ROUTE ; Start 12/23/18 at 10:33; Stop 12/23/18 at 10:35; Status DC Lidocaine/Sodium Bicarbonate (Buffered Lidocaine 1%) 3 ml 1X ONCE INJ Last administered on 12/23/18at 11:24; Start 12/23/18 at 11:00; Stop 12/23/18 at 11:10; Status DC Info (Tpn Per Pharmacy) 1 each PRN DAILY PRN MC SEE COMMENTS Last administered on 01/05/19at 11:44; Start 12/23/18 at 14:00 Sodium Chloride 90 meq/Potassium Chloride 50 meq/ Potassium Phosphate 20.4 mmol/ Magnesium Sulfate 18 meq/ Calcium Gluconate 5 meq/ Multivitamins 10 ml/Chromium / Copper/Manganese/ Seleni/Zn 1 ml/ Total Parenteral Nutrition/Amino Acids/ Dextrose/ Fat Emulsion Intravenous 1,512 ml @ 63 mls/hr TPN CONT IV Last administered on 12/23/18 21:37; Start 12/23/18 at 22:00; Stop 12/24/18 at 21:59; Status DC Alprazolam (Xanax) 0.25 mg PRN BID PRN PO ANXIETY / AGITATION Last administered on 12/25/18at 09:25; Start 12/23/18 at 23:00; Stop 12/25/18 at 17:54; Status DC Lorazepam (Ativan) 1 mg PRN Q4HRS PRN IV ANXIETY / AGITATION Last administered on 12/24/18at 09:21; Start 12/24/18 at 08:45; Stop 12/24/18 at 10:19; Status DC Pantoprazole Sodium (PROTONIX VIAL for IV PUSH) 40 mg DAILYAC IVP Last administered on 01/06/19at 06:18; Start 12/24/18 at 09:30 Lorazepam (Ativan) 0.5 mg PRN Q4HRS PRN IV ANXIETY / AGITATION Last administered on 12/25/18at 04:47; Start 12/24/18 at 10:30; Stop 12/25/18 at 10:22; Status DC Sodium Chloride 45 meq/Sodium Acetate 45 meq/ Potassium Chloride 50 meq/ Potassium Phosphate 20.4 mmol/Magnesium Sulfate 18 meq/ Calcium Gluconate 5 meq / Multivitamins 10 ml/Chromium/ Copper/Manganese/ Seleni/Zn 1 ml/ Total Parenteral Nutrition/Amino Acids/Dextrose/ Fat Emuls... 1,512 ml @ 63 mls/hr TPN CONT IV Last administered on 12/24/18at 21:57; Start 12/24/18 at 22:00; Stop 12/25/18 at 21:59; Status DC Phenyleph/Shark Oil/Min Oil/Petrol (Preparation H) 1 ranjith PRN Q4HRS PRN RC RECTAL PAIN; Start 12/24/18 at 12:45; Stop 12/25/18 at 20:20; Status DC Sodium Chloride 45 meq/Sodium Acetate 45 meq/ Potassium Chloride 50 meq/ Potassium Phosphate 20.4 mmol/Magnesium Sulfate 18 meq/ Calcium Gluconate 5 meq / Multivitamins 10 ml/Chromium/ Copper/Manganese/ Seleni/Zn 1 ml/ Total Parenteral Nutrition/Amino Acids/Dextrose/ Fat Emuls... 1,512 ml @ 63 mls/hr TPN CONT IV Last administered on 12/26/18at 00:34; Start 12/25/18 at 22:00; Stop 12/26/18 at 21:59; Status DC Neomycin/ Polymyxin/ Bacitracin (Triple Antibiotic Ointment) 1 pkt PRN TID PRN TP skin around rectum, post op Last administered on 01/05/19at 08:07; Start at 14:30 Alprazolam (Xanax) 0.25 mg PRN Q8HRS PRN PO ANXIETY / AGITATION Last administered on 01/03/19at 23:47; Start 12/25/18 at 18:00 Morphine Sulfate (Morphine Sulfate) 2 mg PRN Q6HRS PRN IV PAIN Last administered on 12/29/18at 21:47; Start 12/25/18 at 18:00; Stop 12/30/18 at 03:17 ; Status DC Guaifenesin (Mucinex) 600 mg BID PO Last administered on 12/26/18at 21:26; Start 12/26/18 at 11:00 Guaifenesin (Mucinex) 600 mg BID PO ; Start 12/26/18 at 11:00; Status UNV Guaifenesin/ Codeine Phosphate (Robitussin Ac) 5 ml PRN Q6HRS PRN PO COUGH Last administered on 12/26/18at 10:41; Start 12/26/18 at 10:30 Sodium Acetate 90 meq/Potassium Chloride 50 meq/ Potassium Phosphate 13.6 mmol/ Magnesium Sulfate 18 meq/ Calcium Gluconate 5 meq/ Multivitamins 10 ml/Chromium / Copper/Manganese/ Seleni/Zn 1 ml/ Total Parenteral Nutrition/Amino Acids/ Dextrose/ Fat Emulsion Intravenous 1,512 ml @ 63 mls/hr TPN CONT IV Last administered on 12/26/18at 21:37; Start 12/26/18 at 22:00; Stop 12/28/18 at 01:28 ; Status DC Benzocaine (Hurricaine One) 1 spray 1X ONCE MM ; Start 12/26/18 at 19:15; Stop 12/26/18 at 19:16; Status DC Acetaminophen (Tylenol) 650 mg PRN Q6HRS PRN PO MILD PAIN / TEMP Last administered on 12/27/18at 04:39; Start 12/26/18 at 21:00 Benzocaine (Hurricaine One) 1 spray 1X ONCE MM Last administered on 12/27/18at 09:00; Start 12/27/18 at 09:15; Stop 12/27/18 at 09:16; Status DC Sodium Acetate 90 meq/Potassium Chloride 50 meq/ Potassium Phosphate 13.6 mmol/ Magnesium Sulfate 15 meq/ Calcium Gluconate 5 meq/ Multivitamins 10 ml/Chromium / Copper/Manganese/ Seleni/Zn 1 ml/ Total Parenteral Nutrition/Amino Acids/ Dextrose/ Fat Emulsion Intravenous 1,512 ml @ 63 mls/hr TPN CONT IV ; Start at 22:00; Stop 12/28/18 at 21:59; Status Cancel Sodium Acetate 90 meq/Potassium Chloride 50 meq/ Potassium Phosphate 13.6 mmol/ Magnesium Sulfate 15 meq/ Calcium Gluconate 5 meq/ Multivitamins 10 ml/Chromium / Copper/Manganese/ Seleni/Zn 1 ml/ Total Parenteral Nutrition/Amino Acids/ Dextrose/ Fat Emulsion Intravenous 1,512 ml @ 63 mls/hr TPN CONT IV ; Start at 22:00; Stop 12/28/18 at 21:59; Status DC Lidocaine/Sodium Bicarbonate (Buffered Lidocaine 1%) 3 ml 1X ONCE INJ ; Start 12/28/18 at 09:00; Stop 12/28/18 at 09:01; Status Cancel Benzocaine (Hurricaine One) 1 spray 1X ONCE MM Last administered on 12/28/18at 09:32; Start 12/28/18 at 09:30; Stop 12/28/18 at 09:33; Status DC Sodium Acetate 90 meq/Potassium Chloride 50 meq/ Potassium Phosphate 13.6 mmol/ Magnesium Sulfate 15 meq/ Calcium Gluconate 5 meq/ Multivitamins 10 ml/Chromium / Copper/Manganese/ Seleni/Zn 1 ml/ Total Parenteral Nutrition/Amino Acids/ Dextrose/ Fat Emulsion Intravenous 1,512 ml @ 63 mls/hr TPN CONT IV Last administered on 12/28/18at 22:06; Start 12/28/18 at 22:00; Stop 12/29/18 at 21:59 ; Status DC Iohexol (Omnipaque 300 Mg/ml) 400 ml 1X ONCE PO Last administered on at 08:15; Start 12/29/18 at 06:45; Stop 12/29/18 at 06:46; Status DC Info (CONTRAST GIVEN -- Rx MONITORING) 1 each PRN DAILY PRN MC SEE COMMENTS; Start 12/29/18 at 06:45; Stop 12/31/18 at 06:44; Status DC Iohexol (Omnipaque 300 Mg/ml) 400 ml 1X ONCE PO ; Start 12/29/18 at 07:00; Stop 12/29/18 at 07:03; Status DC Info (CONTRAST GIVEN -- Rx MONITORING) 1 each PRN DAILY PRN MC SEE COMMENTS; Start 12/29/18 at 07:15; Stop 12/31/18 at 07:14; Status DC Meropenem 500 mg/ Sodium Chloride 50 ml @ 100 mls/hr Q6HRS IV Last administered on 01/06/19at 05:52; Start 12/29/18 at 12:00 Multi-Ingredient Ointment (Analgesic [place]) 1 ranjith PRN QID PRN TP MUSCLE PAIN Last administered on 12/29/18at 14:40; Start 12/29/18 at 13:00 Sodium Acetate 90 meq/Potassium Chloride 50 meq/ Potassium Phosphate 13.6 mmol/ Magnesium Sulfate 15 meq/ Calcium Gluconate 5 meq/ Multivitamins 10 ml/Chromium / Copper/Manganese/ Seleni/Zn 1 ml/ Total Parenteral Nutrition/Amino Acids/ Dextrose/ Fat Emulsion Intravenous 1,512 ml @ 63 mls/hr TPN CONT IV Last administered on 12/29/18at 21:40; Start 12/29/18 at 22:00; Stop 12/30/18 at 21:59 ; Status DC Morphine Sulfate (Morphine Sulfate) 2 mg PRN Q4HRS PRN IV SEVERE PAIN Last administered on 12/30/18at 19:50; Start 12/30/18 at 03:30; Stop 12/30/18 at 21:33 ; Status DC Propofol 20 ml @ As Directed STK-MED ONCE IV ; Start 12/30/18 at 12:51; Stop at 12:52; Status DC Dexamethasone Sodium Phosphate (Decadron) 20 mg STK-MED ONCE .ROUTE ; Start at 12:51; Stop 12/30/18 at 12:52; Status DC Lidocaine HCl (Lidocaine Pf 2% Vial) 5 ml STK-MED ONCE .ROUTE ; Start 12/30/18 at 12:51; Stop 12/30/18 at 12:52; Status DC Ondansetron HCl (Zofran) 4 mg STK-MED ONCE .ROUTE ; Start 12/30/18 at 12:51; Stop 12/30/18 at 12:52; Status DC Rocuronium [place] (Zemuron) 50 mg STK-MED ONCE .ROUTE ; Start 12/30/18 at 12:51 ; Stop 12/30/18 at 12:52; Status DC Succinylcholine Chloride (Anectine) 200 mg STK-MED ONCE .ROUTE ; Start 12/30/18 at 12:51; Stop 12/30/18 at 12:52; Status DC Fentanyl Citrate (Fentanyl 5ml Vial) 250 mcg STK-MED ONCE .ROUTE ; Start at 13:49; Stop 12/30/18 at 13:50; Status DC Sodium Chloride 90 meq/Potassium Chloride 50 meq/ Potassium Phosphate 13.6 mmol/ Magnesium Sulfate 15 meq/ Multivitamins 10 ml/Chromium/ Copper/Manganese/ Seleni /Zn 1 ml/ Total Parenteral Nutrition/Amino Acids/Dextrose/ Fat Emulsion Intravenous 1,512 ml @ 63 mls/hr TPN CONT IV Last administered on 12/30/18at 23:43; Start 12/30/18 at 22:00; Stop 12/31/18 at 21:59; Status DC Vasopressin (Vasostrict) 20 unit STK-MED ONCE .ROUTE ; Start 12/30/18 at 15:00; Stop 12/30/18 at 15:01; Status DC Sodium Chloride (SODIUM CHLORIDE 20ml) 20 ml STK-MED ONCE IJ ; Start 12/30/18 at 15:01; Stop 12/30/18 at 15:02; Status DC Albumin Human 500 ml @ As Directed STK-MED ONCE IV ; Start 12/30/18 at 15:01; Stop 12/30/18 at 15:02; Status DC Glycopyrrolate (Robinul) 1 mg STK-MED ONCE .ROUTE ; Start 12/30/18 at 15:21; Stop 12/30/18 at 15:22; Status DC Neostigmine Methylsulfate (Bloxiverz) 10 mg STK-MED ONCE .ROUTE ; Start at 15:21; Stop 12/30/18 at 15:22; Status DC Albuterol/ Ipratropium (Duoneb) 3 ml STK-MED ONCE .ROUTE ; Start 12/30/18 at 15: 45; Stop 12/30/18 at 15:46; Status DC Fentanyl Citrate (Fentanyl 2ml Vial) 100 mcg STK-MED ONCE .ROUTE ; Start at 16:56; Stop 12/30/18 at 16:57; Status DC Ondansetron HCl (Zofran) 4 mg PRN Q6HRS PRN IV NAUSEA/VOMITING; Start 12/30/18 at 17:15; Stop 12/30/18 at 21:35; Status DC Fentanyl Citrate (Fentanyl 2ml Vial) 25 mcg PRN Q5MIN PRN IV MILD PAIN Last administered on 12/30/18at 17:15; Start 12/30/18 at 17:15; Stop 12/30/18 at 21:35 ; Status DC Fentanyl Citrate (Fentanyl 2ml Vial) 50 mcg PRN Q5MIN PRN IV MODERATE TO SEVERE PAIN Last administered on 12/30/18at 17:57; Start 12/30/18 at 17:15; Stop 12/30/18 at 21:35; Status DC Morphine Sulfate (Morphine Sulfate) 1 mg PRN Q10MIN PRN IV SEVERE PAIN; Start 12/30/18 at 17:15; Stop 12/31/18 at 17:14; Status DC Ringer's Solution 1,000 ml @ 30 mls/hr Q24H IV Last administered on 12/30/18at 18:09; Start 12/30/18 at 17:10; Stop 12/30/18 at 21:33; Status DC Lidocaine HCl (Xylocaine-Mpf 1% 2ml Vial) 2 ml 1X PRN PRN ID IV START; Start at 17:15; Stop 12/30/18 at 21:35; Status DC Hydromorphone HCl (Dilaudid) 0.5 mg PRN Q10MIN PRN IV SEV PAIN, Second choice; Start 12/30/18 at 17:15; Stop 12/30/18 at 21:35; Status DC Prochlorperazine Edisylate (Compazine) 5 mg PACU PRN PRN IV NAUSEA, MRX1; Start 12/30/18 at 17:15; Stop 12/30/18 at 21:35; Status DC Albumin Human 100 ml @ 100 mls/hr 1X ONCE IV Last administered on 12/30/18at 22:00; Start 12/30/18 at 22:00; Stop 12/30/18 at 22:59; Status DC Ringer's Solution 500 ml @ 500 mls/hr 1X ONCE IV Last administered on at 22:00; Start 12/30/18 at 22:00; Stop 12/30/18 at 22:59; Status DC Ringer's Solution 1,000 ml @ 100 mls/hr Q10H IV Last administered on at 00:58; Start 12/30/18 at 23:00; Stop 01/01/19 at 09:30; Status DC Hydromorphone HCl (Dilaudid) 0.5 mg PRN Q2HR PRN IV MODERATE PAIN Last administered on 01/04/19at 10:08; Start 12/30/18 at 21:30; Stop 01/04/19 at 15:05 ; Status DC Hydromorphone HCl (Dilaudid) 1 mg PRN Q2HR PRN IV SEVERE PAIN Last administered on 01/04/19at 04:51; Start 12/30/18 at 21:30; Stop 01/04/19 at 15:05 ; Status DC Insulin Human Lispro (HumaLOG) 0-5 UNITS Q6HRS SQ Last administered on at 06:42; Start 12/31/18 at 00:30 Sodium Chloride 90 meq/Potassium Chloride 30 meq/ Potassium Phosphate 13.6 mmol/ Magnesium Sulfate 15 meq/ Calcium Gluconate 5 meq/ Multivitamins 10 ml/Chromium / Copper/Manganese/ Seleni/Zn 1 ml/ Total Parenteral Nutrition/Amino Acids/ Dextrose/ Fat Emulsion Intravenous 1,512 ml @ 63 mls/hr TPN CONT IV Last administered on 12/31/18at 21:58; Start 12/31/18 at 22:00; Stop 01/01/19 at 21:59 ; Status DC Sodium Chloride 90 meq/Potassium Chloride 30 meq/ Potassium Phosphate 13.6 mmol/ Magnesium Sulfate 15 meq/ Calcium Gluconate 5 meq/ Multivitamins 10 ml/Chromium / Copper/Manganese/ Seleni/Zn 1 ml/ Total Parenteral Nutrition/Amino Acids/ Dextrose/ Fat Emulsion Intravenous 1,512 ml @ 63 mls/hr TPN CONT IV Last administered on 01/01/19at 21:09; Start 01/01/19 at 22:00; Stop 01/02/19 at 21:59 ; Status DC Vancomycin HCl (Vanco Per Pharmacy) 1 each PRN DAILY PRN MC SEE COMMENTS Last administered on 01/03/19at 10:18; Start 01/01/19 at 11:15; Stop 01/03/19 at 11:23 ; Status DC Vancomycin HCl 2 gm/Sodium Chloride 500 ml @ 250 mls/hr ONCE ONCE IV Last administered on 01/01/19at 12:28; Start 01/01/19 at 12:00; Stop 01/01/19 at 13:59 ; Status DC Vancomycin HCl 1.25 gm/Sodium Chloride 250 ml @ 166.667 mls/hr Q24H IV ; Start 01/01/19 at 12:00; Status Cancel Vancomycin HCl (Vancomycin Trough Level) 1 each 1X ONCE MC ; Start 01/03/19 at 11:30; Stop 01/03/19 at 11:31; Status Cancel Vancomycin HCl 1.25 gm/Sodium Chloride 250 ml @ 166.667 mls/hr Q24H IV Last administered on 01/02/19at 13:04; Start 01/02/19 at 12:00; Stop 01/03/19 at 11:23 ; Status DC Albuterol/ Ipratropium (Duoneb) 3 ml 1X ONCE NEB Last administered on at 08:19; Start 01/02/19 at 07:30; Stop 01/02/19 at 07:31; Status DC Albuterol/ Ipratropium (Duoneb) 3 ml Q4HRS NEB Last administered on 01/06/19at 06:25; Start 01/02/19 at 12:00 Furosemide (Lasix) 20 mg 1X ONCE IVP Last administered on 01/02/19at 07:36; Start 01/02/19 at 07:30; Stop 01/02/19 at 07:31; Status DC Sodium Chloride 90 meq/Potassium Chloride 30 meq/ Potassium Phosphate 13.6 mmol/ Magnesium Sulfate 15 meq/ Calcium Gluconate 5 meq/ Multivitamins 10 ml/Chromium / Copper/Manganese/ Seleni/Zn 1 ml/ Total Parenteral Nutrition/Amino Acids/ Dextrose/ Fat Emulsion Intravenous 1,512 ml @ 63 mls/hr TPN CONT IV Last administered on 01/02/19at 21:20; Start 01/02/19 at 22:00; Stop 01/03/19 at 21:59 ; Status DC Sodium Chloride 90 meq/Potassium Chloride 30 meq/ Potassium Phosphate 13.6 mmol/ Magnesium Sulfate 15 meq/ Multivitamins 10 ml/Chromium/ Copper/Manganese/ Seleni /Zn 1 ml/ Insulin Human Regular 10 unit/ Total Parenteral Nutrition/Amino Acids/ Dextrose/ Fat Emulsion Intravenous 1,512 ml @ 63 mls/hr TPN CONT IV Last administered on 01/03/19at 22:07; Start 01/03/19 at 22:00; Stop 01/04/19 at 21:59 ; Status DC Sodium Chloride 90 meq/Potassium Chloride 30 meq/ Potassium Phosphate 13.6 mmol/ Magnesium Sulfate 15 meq/ Multivitamins 10 ml/Chromium/ Copper/Manganese/ Seleni /Zn 1 ml/ Insulin Human Regular 10 unit/ Total Parenteral Nutrition/Amino Acids/ Dextrose/ Fat Emulsion Intravenous 1,512 ml @ 63 mls/hr TPN CONT IV Last administered on 01/04/19at 22:11; Start 01/04/19 at 22:00; Stop 01/05/19 at 21:59 ; Status DC Hydromorphone HCl (Dilaudid) 0.5 mg PRN Q6HRS PRN IV MODERATE PAIN Last administered on 01/06/19at 06:18; Start 01/04/19 at 15:15 Hydromorphone HCl (Dilaudid) 1 mg PRN Q6HRS PRN IV SEVERE PAIN Last administered on 01/05/19at 02:18; Start 01/04/19 at 15:15 Dextrose (Dextrose 50%-Water Syringe) 25 gm STK-MED ONCE IV ; Start 01/04/19 at 08:50; Stop 01/05/19 at 08:26; Status DC Sodium Chloride 90 meq/Potassium Chloride 30 meq/ Potassium Phosphate 13.6 mmol/ Magnesium Sulfate 15 meq/ Multivitamins 10 ml/Chromium/ Copper/Manganese/ Seleni /Zn 1 ml/ Insulin Human Regular 10 unit/ Total Parenteral Nutrition/Amino Acids/ Dextrose/ Fat Emulsion Intravenous 1,512 ml @ 63 mls/hr TPN CONT IV Last administered on 01/05/19at 21:52; Start 01/05/19 at 22:00; Stop 01/06/19 at 21:59 Budesonide (Pulmicort) 0.5 mg RTBID NEB Last administered on 01/06/19at 08:34; Start 01/05/19 at 12:00 Active Scripts Active Chlorhexidine Gluconate 473 Ml Mouthwash 473 Ml MM BID 7 Days Vitamin C (Ascorbate Calcium) 500 Mg Tablet 500 Mg PO DAILY 30 Days Slow Release Iron (Ferrous Sulfate) 250 Mg Tablet.er 250 Mg PO DAILY 30 Days Protonix (Pantoprazole Sodium) 40 Mg Granpkt.dr 40 Mg PO DAILY 30 Days Reported Alprazolam 0.25 Mg Tablet 0.25 Mg PO DAILY Metformin Hcl Er (Metformin Hcl) 500 Mg Tab.er.24h 1 Tab PO DAILY Namenda (Memantine Hcl) 10 Mg Tablet 1 Tab PO BID Losartan Potassium 100 Mg Tablet 100 Mg PO DAILY Spironolactone 25 Mg Tablet 1 Tab PO DAILY Ventolin Hfa Inhaler (Albuterol Sulfate) 18 Gm Hfa.aer.ad 2 Puff INH Q4HRS Cymbalta (Duloxetine Hcl) 20 Mg Capsule.dr 90 Mg PO DAILY Requip (Ropinirole Hcl) 1 Mg Tablet 3 Mg PO DAILY Amlodipine Besylate 10 Mg Tablet 10 Mg PO DAILY Vitals/I & O Vital Sign - Last 24 Hours 01/05/19 01/05/19 01/05/19 01/05/19 11:00 13:11 15:20 16:20 Temp 98.0 98.9 98.0 98.9 Pulse 85 95 Resp 18 24 B/P (MAP) 127/76 (93) 118/77 (91) Pulse Ox 96 93 98 O2 Delivery Nasal Cannula Nasal Cannula Nasal Cannula Nasal Cannula O2 Flow Rate 3.0 3.0 3.0 3.0 01/05/19 01/05/19 01/05/19 01/05/19 16:20 19:00 19:37 19:38 Temp 99.0 99.0 Pulse 89 Resp 18 B/P (MAP) 128/82 (97) Pulse Ox 96 98 96 96 O2 Delivery Nasal Cannula Nasal Cannula Nasal Cannula Nasal Cannula O2 Flow Rate 3.0 3.0 3.0 3.0 01/05/19 01/05/19 01/05/19 01/05/19 20:00 22:23 22:36 23:10 Temp 98.1 98.1 Pulse 80 Resp 20 18 B/P (MAP) 120/72 (88) Pulse Ox 96 98 100 O2 Delivery Nasal Cannula Nasal Cannula Nasal Cannula Nasal Cannula O2 Flow Rate 3.0 3.0 3.0 3.0 01/06/19 01/06/19 01/06/19 01/06/19 03:00 03:10 06:18 06:25 Temp 98.0 98.0 Pulse 82 Resp 18 20 B/P (MAP) 134/78 (96) Pulse Ox 99 100 100 93 O2 Delivery Nasal Cannula Nasal Cannula Nasal Cannula Nasal Cannula O2 Flow Rate 3.0 3.0 3.0 3.0 01/06/19 01/06/19 01/06/19 06:48 07:00 08:37 Temp 98.4 98.4 Pulse 85 Resp 20 16 B/P (MAP) 122/78 (93) Pulse Ox 93 97 90 O2 Delivery Nasal Cannula Nasal Cannula Nasal Cannula O2 Flow Rate 3.0 3.0 3.0 Intake and Output 01/05/19 01/05/19 01/06/19 15:00 23:00 07:00 Intake Total 50 ml 0 ml Output Total 650 ml Balance 50 ml -650 ml RADAMES MÉNDEZ MD Jan 06, 2019 09:38
[2019-01-06] MEDS: ALPRAZolam 0.25 MG TABLET PO PRN ×2 (10:28→20:08)
--- NOTE | 2019-01-06 10:39 | PDOC ---
Subjective: Subjective: Working with therapy - sat up in bed, feels more short of breath - is short of breath even in bed, uses O2 at home. Passing gas, wants to eat. Can't really say if she feels less bloated. Objective: Objective: Reviewed w/ RN - to try some juice today per surgery. Vital Signs: Vital Signs Date Time Temp Pulse Resp B/P (MAP) Pulse Ox O2 Delivery O2 Flow Rate FiO2 01/06/19 08:37 90 Nasal Cannula 3.0 01/06/19 07:00 98.4 85 16 122/78 (93) 98.4 Labs: Laboratory Tests Test 01/05/19 11:04 01/06/19 06:00 Glucose (Fingerstick) 306 mg/dL White Blood Count 12.9 x10^3/uL Red Blood Count 3.16 x10^6/uL Hemoglobin 7.6 g/dL Hematocrit 24.5 % Mean Corpuscular Volume 78 fL Mean Corpuscular Hemoglobin 24 pg Mean Corpuscular Hemoglobin Concent 31 g/dL Red Cell Distribution Width 24.1 % Platelet Count 356 x10^3/uL Neutrophils (%) (Auto) 83 % Lymphocytes (%) (Auto) 8 % Monocytes (%) (Auto) 7 % Eosinophils (%) (Auto) 2 % Basophils (%) (Auto) 0 % Neutrophils # (Auto) 10.7 x10^3uL Lymphocytes # (Auto) 1.0 x10^3/uL Monocytes # (Auto) 0.9 x10^3/uL Eosinophils # (Auto) 0.2 x10^3/uL Basophils # (Auto) 0.0 x10^3/uL Sodium Level 149 mmol/L Potassium Level 4.4 mmol/L Chloride Level 111 mmol/L Carbon Dioxide Level 32 mmol/L Anion Gap 6 Blood Urea Nitrogen 26 mg/dL Creatinine 0.6 mg/dL Estimated GFR (Cockcroft-Gault) 117.9 Glucose Level 302 mg/dL Calcium Level 8.8 mg/dL Phosphorus Level 3.4 mg/dL Magnesium Level 1.9 mg/dL PE: GEN: sitting on edge of bed, therapy present LUNGS: NC, tachypneic, diminished air flow HEART: RRR ABD: ?less distended NEURO/PSYCH: A & O 3 A/P: S/p right colon resection and hemorrhoidectomy 12/17/18 S/p extended right hemicolectomy and primary anastomosis 12/30/18 Leukocytosis improved anemia (Hgb to 7.6), hyperglycemia COPD -- Plans to try juice today, will follow. Can change to PO PPI when eating. RADHA JUSTICE Jan 06, 2019 10:38
[2019-01-06 11:00] VITALS: BP 121/70
--- NOTE | 2019-01-06 12:39 | PDOC ---
PULMONARY PROGRESS NOTES Subjective feels better today gets SOA / wheezing with any exertion Vitals Vital Signs Date Time Temp Pulse Resp B/P (MAP) Pulse Ox O2 Delivery O2 Flow Rate FiO2 01/06/19 11:00 97.7 86 18 121/70 (87) 95 Nasal Cannula 3.0 97.7 ROS: No Nausea, No Chest Pain General: Alert, Mild Distress HEENT: Other (nc at perrl nose throat clear neck +JVD no lad, no thyromegaly ) Lungs: Wheezing (resolved) Cardiovascular: S1, S2 Abdomen: Soft, Other (distended) Neuro Exam: Alert, Oriented Extremities: No Edema Skin: Warm Labs Laboratory Tests Test 01/04/19 17:00 01/05/19 00:13 01/05/19 06:15 01/05/19 06:18 Glucose (Fingerstick) 298 mg/dL (70-99) 249 mg/dL (70-99) 232 mg/dL (70-99) White Blood Count 13.9 x10^3/uL (4.0-11.0) Red Blood Count 3.21 x10^6/uL (3.50-5.40) Hemoglobin 8.0 g/dL (12.0-15.5) Hematocrit 25.0 % (36.0-47.0) Mean Corpuscular Volume 78 fL (79-100) Mean Corpuscular Hemoglobin 25 pg (25-35) Mean Corpuscular Hemoglobin Concent 32 g/dL (31-37) Red Cell Distribution Width 24.2 % (11.5-14.5) Platelet Count 324 x10^3/uL (140-400) Neutrophils (%) (Auto) 83 % (31-73) Lymphocytes (%) (Auto) 9 % (24-48) Monocytes (%) (Auto) 7 % (0-9) Eosinophils (%) (Auto) 1 % (0-3) Basophils (%) (Auto) 1 % (0-3) Neutrophils # (Auto) 11.5 x10^3uL (1.8-7.7) Lymphocytes # (Auto) 1.2 x10^3/uL (1.0-4.8) Monocytes # (Auto) 1.0 x10^3/uL (0.0-1.1) Eosinophils # (Auto) 0.2 x10^3/uL (0.0-0.7) Basophils # (Auto) 0.1 x10^3/uL (0.0-0.2) Sodium Level 145 mmol/L (136-145) Potassium Level 4.4 mmol/L (3.5-5.1) Chloride Level 107 mmol/L (98-107) Carbon Dioxide Level 31 mmol/L (21-32) Anion Gap 7 (6-14) Blood Urea Nitrogen 27 mg/dL (7-20) Creatinine 0.7 mg/dL (0.6-1.0) Estimated GFR (Cockcroft-Gault) 98.7 Glucose Level 312 mg/dL (70-99) Calcium Level 8.5 mg/dL (8.5-10.1) Phosphorus Level 3.8 mg/dL (2.6-4.7) Magnesium Level 1.8 mg/dL (1.8-2.4) Test 01/05/19 11:04 01/06/19 06:00 01/06/19 11:56 Glucose (Fingerstick) 306 mg/dL (70-99) 370 mg/dL (70-99) White Blood Count 12.9 x10^3/uL (4.0-11.0) Red Blood Count 3.16 x10^6/uL (3.50-5.40) Hemoglobin 7.6 g/dL (12.0-15.5) Hematocrit 24.5 % (36.0-47.0) Mean Corpuscular Volume 78 fL (79-100) Mean Corpuscular Hemoglobin 24 pg (25-35) Mean Corpuscular Hemoglobin Concent 31 g/dL (31-37) Red Cell Distribution Width 24.1 % (11.5-14.5) Platelet Count 356 x10^3/uL (140-400) Neutrophils (%) (Auto) 83 % (31-73) Lymphocytes (%) (Auto) 8 % (24-48) Monocytes (%) (Auto) 7 % (0-9) Eosinophils (%) (Auto) 2 % (0-3) Basophils (%) (Auto) 0 % (0-3) Neutrophils # (Auto) 10.7 x10^3uL (1.8-7.7) Lymphocytes # (Auto) 1.0 x10^3/uL (1.0-4.8) Monocytes # (Auto) 0.9 x10^3/uL (0.0-1.1) Eosinophils # (Auto) 0.2 x10^3/uL (0.0-0.7) Basophils # (Auto) 0.0 x10^3/uL (0.0-0.2) Sodium Level 149 mmol/L (136-145) Potassium Level 4.4 mmol/L (3.5-5.1) Chloride Level 111 mmol/L (98-107) Carbon Dioxide Level 32 mmol/L (21-32) Anion Gap 6 (6-14) Blood Urea Nitrogen 26 mg/dL (7-20) Creatinine 0.6 mg/dL (0.6-1.0) Estimated GFR (Cockcroft-Gault) 117.9 Glucose Level 302 mg/dL (70-99) Calcium Level 8.8 mg/dL (8.5-10.1) Phosphorus Level 3.4 mg/dL (2.6-4.7) Magnesium Level 1.9 mg/dL (1.8-2.4) Laboratory Tests Test 01/06/19 06:00 01/06/19 11:56 White Blood Count 12.9 x10^3/uL (4.0-11.0) Red Blood Count 3.16 x10^6/uL (3.50-5.40) Hemoglobin 7.6 g/dL (12.0-15.5) Hematocrit 24.5 % (36.0-47.0) Mean Corpuscular Volume 78 fL (79-100) Mean Corpuscular Hemoglobin 24 pg (25-35) Mean Corpuscular Hemoglobin Concent 31 g/dL (31-37) Red Cell Distribution Width 24.1 % (11.5-14.5) Platelet Count 356 x10^3/uL (140-400) Neutrophils (%) (Auto) 83 % (31-73) Lymphocytes (%) (Auto) 8 % (24-48) Monocytes (%) (Auto) 7 % (0-9) Eosinophils (%) (Auto) 2 % (0-3) Basophils (%) (Auto) 0 % (0-3) Neutrophils # (Auto) 10.7 x10^3uL (1.8-7.7) Lymphocytes # (Auto) 1.0 x10^3/uL (1.0-4.8) Monocytes # (Auto) 0.9 x10^3/uL (0.0-1.1) Eosinophils # (Auto) 0.2 x10^3/uL (0.0-0.7) Basophils # (Auto) 0.0 x10^3/uL (0.0-0.2) Sodium Level 149 mmol/L (136-145) Potassium Level 4.4 mmol/L (3.5-5.1) Chloride Level 111 mmol/L (98-107) Carbon Dioxide Level 32 mmol/L (21-32) Anion Gap 6 (6-14) Blood Urea Nitrogen 26 mg/dL (7-20) Creatinine 0.6 mg/dL (0.6-1.0) Estimated GFR (Cockcroft-Gault) 117.9 Glucose Level 302 mg/dL (70-99) Calcium Level 8.8 mg/dL (8.5-10.1) Phosphorus Level 3.4 mg/dL (2.6-4.7) Magnesium Level 1.9 mg/dL (1.8-2.4) Glucose (Fingerstick) 370 mg/dL (70-99) Medications Active Scripts Medications Dose Route/Sig Max Daily Dose Days Date Category Chlorhexidine Gluconate 473 Ml Mouthwash 473 Ml MM BID 7 12/10/18 Rx Vitamin C (Ascorbate Calcium) 500 Mg Tablet 500 Mg PO DAILY 30 11/22/18 Rx Slow Release Iron (Ferrous Sulfate) 250 Mg Tablet.er 250 Mg PO DAILY 30 11/22/18 Rx Protonix (Pantoprazole Sodium) 40 Mg Granpkt.dr 40 Mg PO DAILY 30 11/22/18 Rx Metformin Hcl Er (Metformin Hcl) 500 Mg Tab.er.24h 1 Tab PO DAILY 11/12/16 Reported Namenda (Memantine Hcl) 10 Mg Tablet 1 Tab PO BID 11/12/16 Reported Losartan Potassium 100 Mg Tablet 100 Mg PO DAILY 11/12/16 Reported Spironolactone 25 Mg Tablet 1 Tab PO DAILY 11/12/16 Reported Ventolin Hfa Inhaler (Albuterol Sulfate) 18 Gm Hfa.aer.ad 2 Puff INH Q4HRS 11/11/16 Reported Cymbalta (Duloxetine Hcl) 20 Mg Capsule.dr 90 Mg PO DAILY 01/27/16 Reported Requip (Ropinirole Hcl) 1 Mg Tablet 3 Mg PO DAILY 01/27/16 Reported Amlodipine Besylate 10 Mg Tablet 10 Mg PO DAILY 01/27/16 Reported Comments cxr reviewed, b lat ll effusion/atelectasis/infilt L>R Impression . 1. Acute hypoxic respiratory failure MULTIFACTORIAL EXPECTED POST SURGICAL INTERVENTION 2. Gastrointestinal bleed/cecal ulceration by colonoscopy, status post laparoscopic-assisted right colon resection and hemorrhoidectomy 12/17 3. ileus S/P SECOND SURGERY 12/30 SEE BELOW 4. Underlying suspected severe chronic obstructive pulmonary disease. 5. Abnormal CT chest with focal opacity in the right upper lobe, could be nodule/ATELECTASIS Date: 12/17/2018 Preoperative diagnosis: GI bleed cecal ulceration by colonoscopy with active bleeding hemorrhoids Postoperative diagnosis: Same Procedure: Laparoscopic-assisted right colon resection and hemorrhoidectomy Surgeon: Jan Specimen: Right colon and hemorrhoids Date: 12/30/2018 Preoperative diagnosis: Small bowel obstruction Postoperative diagnosis: Small bowel obstruction at previous anastomotic site Procedure: Exploratory laparotomy with extended right hemicolectomy and primary anastomosis Plan . d/w RN PRN BIPAP for increase dyspnea with activity Duo Nebs pulmicort NG PER SURGEON IS, the importance of use discussed BD, cxr reviewed 01/[address] IN 4 MONTHS, dr hoover D/W DAUGHTER discussed w pt, rn, JEF CARLIN MD Jan 06, 2019 12:39
[2019-01-06] MEDS: TPN PER PHARMACY MC PRN (12:42)
--- NOTE | 2019-01-06 12:43 | NUR ---
SS following up with discharge planning. Insurance denied LTAC for pt. SS met with pt and discussed discharge planning and referrals to [facility]ci facilities. Pt agreeable to referrals to fci facilities. SS phoned and faxed referrals to [facility], ; fax [phone], [facility], ; fax [phone], and [facility], ; fax [phone]. SS contacted [facility] and [facility] and was notified that they do not take TPN pt's at this time. SS will await acceptance decisions from facilities and will proceed accordingly with discharge planning.
--- NOTE | 2019-01-06 12:43 | NUR ---
Pharmacy TPN Dosing Note S: ELLE LATHAM is a 72 year old F Currently receiving Central Continuous TPN started 12/23/18 B:Pertinent PMH: SBO Height: 5 feet, 7 inches Weight: 85.377459 kg Current diet: npo LABS: Sodium: 149 Potassium: 4.4 Chloride: 111 Calcium: 8.8 Corrected Calcium: 10.48 Magnesium: 1.9 CO2: 32 SCr: 0.6 Glucose: 302-370 Albumin: 1.9 AST: 35 ALT: 44 TPN FORMULA: TPN TYPE: Central Continuous AMINO ACIDS: 85 gm DEXTROSE: 260 gm LIPIDS: 40 gm SODIUM CHLORIDE: 40 mEq SODIUM ACETATE: - mEq SODIUM PHOSPHATE: - mmol POTASSIUM CHLORIDE: 30 mEq POTASSIUM ACETATE: - mEq POTASSIUM PHOSPHATE: 13.6 mmol MAGNESIUM: 15 mEq CALCIUM: 0 mEq INSULIN: 10 units MULTIPLE VITAMIN: 10 ml TRACE ELEMENTS: MTE5 1 ml(s) TPN PLAN: Sodium elevated, will reduce NaCl Glucose elevated, primary added 12 units of lantus daily No other changes R: Continue TPN as written above. Will monitor electrolytes, glucose, and tolerance to TPN. RO [facility], 01/06/19 [id number]
[2019-01-06] MEDS ORDERED: INSULIN LISPRO 300 UNITS/3 ML INSULN.PEN. SQ ONE (13:00)
[2019-01-06] MEDS: INSULIN GLARGINE 300 UNITS/3 ML INSULN.PEN. SQ SCH (13:19)
[2019-01-06 15:00] VITALS: BP 135/84
[2019-01-06] MEDS: ALBUTEROL SULFATE 2.5 MG/3 ML NEBU. NEB PRN (16:44)
[2019-01-06 19:00] VITALS: BP 115/72
[2019-01-06] MEDS: rOPINIRole 1 MG TABLET. PO SCH (21:00)
[2019-01-06] MEDS ORDERED: DEXTROSE 70% IV SCH ×10 (22:00)
[2019-01-06] MEDS ORDERED: TOTAL PARENTERAL NUTRITION IV SCH ×10 (22:00)
[2019-01-06] MEDS ORDERED: [UNRECOGNIZED DRUG - OTHER] IV SCH ×10 (22:00)
[2019-01-06] MEDS ORDERED: AMINO ACID IV SCH ×10 (22:00)
[2019-01-06 23:00] VITALS: BP 112/73
[2019-01-07] MEDS ORDERED: INSULIN LISPRO 300 UNITS/3 ML INSULN.PEN. SQ ONE ×3 (00:30→14:00)
[2019-01-07] MEDS: ALBUTEROL SULFATE 2.5 MG/3 ML NEBU. NEB PRN ×2 (02:24→12:45)
[2019-01-07] MEDS: HYDROmorphone 2 MG/ML VIAL IV PRN ×4 (02:40→20:58)
[2019-01-07 02:49] VITALS: BP 136/95
[2019-01-07] MEDS: IPRATRPIUM/ALBUTEROL 0.5/2.5MG 3 ML NEBU. NEB SCH ×5 (04:00→20:23)
[2019-01-07] MEDS: ALPRAZolam 0.25 MG TABLET PO PRN ×2 (04:25→13:01)
[2019-01-07] MEDS: MEROPENEM 500 MG in IV NORMAL SALINE 50ML 50 ML IV SCH (06:05)
[2019-01-07 06:29] LABS: BASO # 0.1 x10^3/uL (0.0-0.2); BASO % 1 % (0-3); EOS # 0.1 x10^3/uL (0.0-0.7); EOS % 1 % (0-3); HEMATOCRIT 26.3 % (36.0-47.0); HEMOGLOBIN 8.3 g/dL (12.0-15.5); LYMPH % 7 % (24-48); MEAN CORPUSCULAR HEMOGLOBIN 26 pg (25-35); MEAN CORPUSCULAR HGB CONC 31 g/dL (31-37); MEAN CORPUSCULAR VOLUME 84 fL (79-100); MONO # 0.7 x10^3/uL (0.0-1.1); MONO % 5 % (0-9); NEUT # 11.8 x10^3uL (1.8-7.7); NEUT % 86 % (31-73); PLATELET COUNT 355 x10^3/uL (140-400); RED BLOOD COUNT 3.15 x10^6/uL (3.50-5.40); RED CELL DISTRIBUTION WIDTH 25.1 % (11.5-14.5); WHITE BLOOD COUNT 13.7 x10^3/uL (4.0-11.0)
[2019-01-07] MEDS: INSULIN LISPRO 300 UNITS/3 ML INSULN.PEN. SQ SCH ×5 (06:45→17:44)
[2019-01-07] MEDS: PANTOPRAZOLE IV PUSH 40 MG VIAL. IVP SCH (06:45)
[2019-01-07 07:00] VITALS: BP 164/105
[2019-01-07] MEDS: BUDESONIDE 0.5 MG/2 ML NEBU. NEB SCH ×2 (07:04→20:23)
[2019-01-07] MEDS: ONDANSETRON PF 4 MG/2 ML VIAL. IV PRN (07:57)
[2019-01-07] MEDS: FERROUS SULFATE 325 MG TABLET. PO SCH (08:00)
[2019-01-07] MEDS: ASCORBIC ACID 500 MG TABLET PO SCH (08:36)
[2019-01-07] MEDS: LOSARTAN POTASSIUM 50 MG TABLET. PO SCH (08:37)
--- NOTE | 2019-01-07 08:37 | PDOC ---
Infectious Disease Note Subjective Subjective C/o some back pain. Has chronic issues Breathing ok - No SOA Denies N/V/F/C/Rash. + flatus/BM O2 ROS ROS o/w neg Vital Sign Vital Signs Vital Signs Date Time Temp Pulse Resp B/P (MAP) Pulse Ox O2 Delivery O2 Flow Rate FiO2 01/07/19 07:20 Nasal Cannula 3.0 01/07/19 07:06 93 01/07/19 02:49 98.6 100 18 136/95 (109) 98.6 Physical Exam PHYSICAL EXAM GENERAL: In bed, alert, relaxed appearance, Looks better HEENT: Oral cavity pink, dry NECK: Supple LUNGS: Diminished aeration bases HEART: S1, S2 ABDOMEN: A little more distended today, soft.. Incisions intact drain at base and ostomy bag : exteranl [place] EXTREMITIES: LLE 1+ edema. no cyanosis SKIN: No rash. Rectal wound. NEUROLOGIC: Alert, responding appropriately RUE-PICC (12/23) clean Labs Lab Laboratory Tests Test 01/06/19 11:56 01/06/19 18:07 01/07/19 00:05 01/07/19 06:05 Glucose (Fingerstick) 370 mg/dL (70-99) 237 mg/dL (70-99) 242 mg/dL (70-99) White Blood Count 13.7 x10^3/uL (4.0-11.0) Red Blood Count 3.15 x10^6/uL (3.50-5.40) Hemoglobin 8.3 g/dL (12.0-15.5) Hematocrit 26.3 % (36.0-47.0) Mean Corpuscular Volume 84 fL (79-100) Mean Corpuscular Hemoglobin 26 pg (25-35) Mean Corpuscular Hemoglobin Concent 31 g/dL (31-37) Red Cell Distribution Width 25.1 % (11.5-14.5) Platelet Count 355 x10^3/uL (140-400) Neutrophils (%) (Auto) 86 % (31-73) Lymphocytes (%) (Auto) 7 % (24-48) Monocytes (%) (Auto) 5 % (0-9) Eosinophils (%) (Auto) 1 % (0-3) Basophils (%) (Auto) 1 % (0-3) Neutrophils # (Auto) 11.8 x10^3uL (1.8-7.7) Lymphocytes # (Auto) 1.0 x10^3/uL (1.0-4.8) Monocytes # (Auto) 0.7 x10^3/uL (0.0-1.1) Eosinophils # (Auto) 0.1 x10^3/uL (0.0-0.7) Basophils # (Auto) 0.1 x10^3/uL (0.0-0.2) Test 01/07/19 06:35 Glucose (Fingerstick) 322 mg/dL (70-99) Micro Microbiology 01/01/19 Blood Culture - Preliminary, Resulted NO GROWTH AFTER 2 DAYS 12/25/18 - Final, Complete 12/25/18 - Final, Complete 12/25/18 - Final, Complete 12/25/18 - Final, Complete 12/25/18 Gram Stain Evaluation - Final, Complete 12/25/18 Sputum Culture - Final, Complete 12/25/18 Sputum Result 1 - Final, Complete Objective Assessment Small bowel obstruction at previous anastomotic site. s/p exploratory laparotomy with extended right hemicolectomy and primary anastomosis, 12/30. Leukocytosis - mild increase today ? dry given increase in HgB also S/P laparoscopic-assisted right colon resection and hemorrhoidectomy on 2018 for bleeding cecal ulcer and hemorrhoids; path negative for malignancy . Left pleural effusion with left basilar atelectasis or infiltrate. cxr 01/02 shows improvement COPD Pneumonia sputum c/s nonrevealing, 12/25 - yeast Ileus - more distended today but + BS Allergies to PCN Plan Plan of Care Discont Merrem WBC up despite but also HgB up. ? 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 Also d/w nursing JI WAY MD Jan 07, 2019 08:37
[2019-01-07] MEDS: DOCUSATE SODIUM 100 MG CAPSULE. PO SCH (08:45)
[2019-01-07] MEDS: MEMANTINE 10 MG TABLET. PO SCH ×3 (08:45→21:00)
[2019-01-07] MEDS: amLODIPine BESYLATE 10 MG TABLET PO SCH (08:45)
[2019-01-07] MEDS: SPIRONOLACTONE 25 MG TABLET PO SCH (08:45)
[2019-01-07] MEDS: ENOXAPARIN 40 MG/0.4 ML SYRINGE. SQ SCH (08:46)
[2019-01-07] MEDS: CHLORHEXIDINE 0.12% 15 ML MOUTHWASH. MM SCH ×2 (08:46→20:25)
[2019-01-07] MEDS: DULoxetine HCL 30 MG CAPSULE.DR PO SCH (08:48)
[2019-01-07] MEDS: INSULIN GLARGINE 300 UNITS/3 ML INSULN.PEN. SQ SCH (08:55)
[2019-01-07 09:08] LABS: % EOS 1 % (0-5); % LYMPHS 10 % (24-48); % MONOS 2 % (0-10); % SEGS 87 % (35-66); ANISOCYTOSIS MARKED; PLT ESTIMATE ADEQUATE (ADEQUATE)
[2019-01-07 09:09] LABS: HYPOCHROMIA SLIGHT
--- NOTE | 2019-01-07 09:41 | PDOC ---
ABRAHAM WEBER CLOTH PACKER 01/07/19 0941: SURGICAL PROGRESS NOTE Subjective resting reports BM today some bloating Vital Signs Vital Signs Date Time Temp Pulse Resp B/P (MAP) Pulse Ox O2 Delivery O2 Flow Rate FiO2 01/07/19 08:47 Nasal Cannula 3.0 01/07/19 08:45 108 164/105 01/07/19 07:06 93 01/07/19 07:00 97.8 22 97.8 I&O Intake and Output 01/07/19 06:59 Intake Total 990 ml Output Total 200 ml Balance 790 ml Intake Oral 990 ml Output Urine Total 200 ml # Voids 3 General: Alert, Oriented X3, Cooperative, No acute distress Abdomen: Soft, Other (distention, dressing dry) Labs Laboratory Tests Test 01/05/19 11:04 01/06/19 06:00 01/06/19 11:56 01/06/19 18:07 Glucose (Fingerstick) 306 mg/dL (70-99) 370 mg/dL (70-99) 237 mg/dL (70-99) White Blood Count 12.9 x10^3/uL (4.0-11.0) Red Blood Count 3.16 x10^6/uL (3.50-5.40) Hemoglobin 7.6 g/dL (12.0-15.5) Hematocrit 24.5 % (36.0-47.0) Mean Corpuscular Volume 78 fL (79-100) Mean Corpuscular Hemoglobin 24 pg (25-35) Mean Corpuscular Hemoglobin Concent 31 g/dL (31-37) Red Cell Distribution Width 24.1 % (11.5-14.5) Platelet Count 356 x10^3/uL (140-400) Neutrophils (%) (Auto) 83 % (31-73) Lymphocytes (%) (Auto) 8 % (24-48) Monocytes (%) (Auto) 7 % (0-9) Eosinophils (%) (Auto) 2 % (0-3) Basophils (%) (Auto) 0 % (0-3) Neutrophils # (Auto) 10.7 x10^3uL (1.8-7.7) Lymphocytes # (Auto) 1.0 x10^3/uL (1.0-4.8) Monocytes # (Auto) 0.9 x10^3/uL (0.0-1.1) Eosinophils # (Auto) 0.2 x10^3/uL (0.0-0.7) Basophils # (Auto) 0.0 x10^3/uL (0.0-0.2) Sodium Level 149 mmol/L (136-145) Potassium Level 4.4 mmol/L (3.5-5.1) Chloride Level 111 mmol/L (98-107) Carbon Dioxide Level 32 mmol/L (21-32) Anion Gap 6 (6-14) Blood Urea Nitrogen 26 mg/dL (7-20) Creatinine 0.6 mg/dL (0.6-1.0) Estimated GFR (Cockcroft-Gault) 117.9 Glucose Level 302 mg/dL (70-99) Calcium Level 8.8 mg/dL (8.5-10.1) Phosphorus Level 3.4 mg/dL (2.6-4.7) Magnesium Level 1.9 mg/dL (1.8-2.4) Test 01/07/19 00:05 01/07/19 06:05 01/07/19 06:35 Glucose (Fingerstick) 242 mg/dL (70-99) 322 mg/dL (70-99) White Blood Count 13.7 x10^3/uL (4.0-11.0) Red Blood Count 3.15 x10^6/uL (3.50-5.40) Hemoglobin 8.3 g/dL (12.0-15.5) Hematocrit 26.3 % (36.0-47.0) Mean Corpuscular Volume 84 fL (79-100) Mean Corpuscular Hemoglobin 26 pg (25-35) Mean Corpuscular Hemoglobin Concent 31 g/dL (31-37) Red Cell Distribution Width 25.1 % (11.5-14.5) Platelet Count 355 x10^3/uL (140-400) Neutrophils (%) (Auto) 86 % (31-73) Lymphocytes (%) (Auto) 7 % (24-48) Monocytes (%) (Auto) 5 % (0-9) Eosinophils (%) (Auto) 1 % (0-3) Basophils (%) (Auto) 1 % (0-3) Neutrophils # (Auto) 11.8 x10^3uL (1.8-7.7) Lymphocytes # (Auto) 1.0 x10^3/uL (1.0-4.8) Monocytes # (Auto) 0.7 x10^3/uL (0.0-1.1) Eosinophils # (Auto) 0.1 x10^3/uL (0.0-0.7) Basophils # (Auto) 0.1 x10^3/uL (0.0-0.2) Segmented Neutrophils % 87 % (35-66) Lymphocytes % 10 % (24-48) Monocytes % 2 % (0-10) Eosinophils % 1 % (0-5) Platelet Estimate Adequate (ADEQUATE) Hypochromasia Slight Anisocytosis Marked Laboratory Tests Test 01/06/19 11:56 01/06/19 18:07 01/07/19 00:05 01/07/19 06:05 Glucose (Fingerstick) 370 mg/dL (70-99) 237 mg/dL (70-99) 242 mg/dL (70-99) White Blood Count 13.7 x10^3/uL (4.0-11.0) Red Blood Count 3.15 x10^6/uL (3.50-5.40) Hemoglobin 8.3 g/dL (12.0-15.5) Hematocrit 26.3 % (36.0-47.0) Mean Corpuscular Volume 84 fL (79-100) Mean Corpuscular Hemoglobin 26 pg (25-35) Mean Corpuscular Hemoglobin Concent 31 g/dL (31-37) Red Cell Distribution Width 25.1 % (11.5-14.5) Platelet Count 355 x10^3/uL (140-400) Neutrophils (%) (Auto) 86 % (31-73) Lymphocytes (%) (Auto) 7 % (24-48) Monocytes (%) (Auto) 5 % (0-9) Eosinophils (%) (Auto) 1 % (0-3) Basophils (%) (Auto) 1 % (0-3) Neutrophils # (Auto) 11.8 x10^3uL (1.8-7.7) Lymphocytes # (Auto) 1.0 x10^3/uL (1.0-4.8) Monocytes # (Auto) 0.7 x10^3/uL (0.0-1.1) Eosinophils # (Auto) 0.1 x10^3/uL (0.0-0.7) Basophils # (Auto) 0.1 x10^3/uL (0.0-0.2) Segmented Neutrophils % 87 % (35-66) Lymphocytes % 10 % (24-48) Monocytes % 2 % (0-10) Eosinophils % 1 % (0-5) Platelet Estimate Adequate (ADEQUATE) Hypochromasia Slight Anisocytosis Marked Test 01/07/19 06:35 Glucose (Fingerstick) 322 mg/dL (70-99) Assessment/Plan await improved bowel function clears for now DAYLIN WEI MD 01/07/19 1121: SURGICAL PROGRESS NOTE Assessment/Plan Slowly returning bowel function. Agree with Lisandra's assessment and plan, ABRAHAM WEBER APRN Jan 07, 2019 09:41 DAYLIN WEI MD Jan 07, 2019 11:21
--- NOTE | 2019-01-07 09:53 | PDOC ---
Subjective: Subjective: Tolerating clears, passing gas and stool. Objective: Objective: Reviewed w/ RN - plans to keep to clears, did have a stool this morning, still distended. Vital Signs: Vital Signs Date Time Temp Pulse Resp B/P (MAP) Pulse Ox O2 Delivery O2 Flow Rate FiO2 01/07/19 09:39 Nasal Cannula 3.0 01/07/19 08:45 108 164/105 01/07/19 07:06 93 01/07/19 07:00 97.8 22 97.8 Labs: Laboratory Tests Test 01/06/19 11:56 01/06/19 18:07 01/07/19 00:05 01/07/19 06:05 Glucose (Fingerstick) 370 mg/dL 237 mg/dL 242 mg/dL White Blood Count 13.7 x10^3/uL Red Blood Count 3.15 x10^6/uL Hemoglobin 8.3 g/dL Hematocrit 26.3 % Mean Corpuscular Volume 84 fL Mean Corpuscular Hemoglobin 26 pg Mean Corpuscular Hemoglobin Concent 31 g/dL Red Cell Distribution Width 25.1 % Platelet Count 355 x10^3/uL Neutrophils (%) (Auto) 86 % Lymphocytes (%) (Auto) 7 % Monocytes (%) (Auto) 5 % Eosinophils (%) (Auto) 1 % Basophils (%) (Auto) 1 % Neutrophils # (Auto) 11.8 x10^3uL Lymphocytes # (Auto) 1.0 x10^3/uL Monocytes # (Auto) 0.7 x10^3/uL Eosinophils # (Auto) 0.1 x10^3/uL Basophils # (Auto) 0.1 x10^3/uL Segmented Neutrophils % 87 % Lymphocytes % 10 % Monocytes % 2 % Eosinophils % 1 % Platelet Estimate Adequate Hypochromasia Slight Anisocytosis Marked Test 01/07/19 06:35 Glucose (Fingerstick) 322 mg/dL PE: GEN: NAD LUNGS: NC HEART: RRR ABD: ?more distended/tight, doesn't seem too uncomfortable NEURO/PSYCH: A & O 3 A/P: S/p extended right hemicolectomy Leukocytosis (12.9 to 13.7), anemia (stable) -- Had a stool, might be more distended - plans to keep to clears. RADHA JUSTICE Jan 07, 2019 09:53
[2019-01-07 11:00] VITALS: BP 141/88
--- NOTE | 2019-01-07 12:39 | PDOC ---
PULMONARY PROGRESS NOTES Subjective wants BIPAP gets SOA / wheezing with any exertion Vitals Vital Signs Date Time Temp Pulse Resp B/P (MAP) Pulse Ox O2 Delivery O2 Flow Rate FiO2 01/07/19 11:00 98.5 102 20 141/88 (105) 95 Nasal Cannula 3.0 98.5 ROS: No Nausea, No Chest Pain General: Alert, Mild Distress HEENT: Other (nc at perrl nose throat clear neck +JVD no lad, no thyromegaly ) Lungs: Wheezing (resolved) Cardiovascular: S1, S2 Abdomen: Soft, Other (distended) Neuro Exam: Alert, Oriented Extremities: No Edema Skin: Warm Labs Laboratory Tests Test 01/06/19 06:00 01/06/19 11:56 01/06/19 18:07 01/07/19 00:05 White Blood Count 12.9 x10^3/uL (4.0-11.0) Red Blood Count 3.16 x10^6/uL (3.50-5.40) Hemoglobin 7.6 g/dL (12.0-15.5) Hematocrit 24.5 % (36.0-47.0) Mean Corpuscular Volume 78 fL (79-100) Mean Corpuscular Hemoglobin 24 pg (25-35) Mean Corpuscular Hemoglobin Concent 31 g/dL (31-37) Red Cell Distribution Width 24.1 % (11.5-14.5) Platelet Count 356 x10^3/uL (140-400) Neutrophils (%) (Auto) 83 % (31-73) Lymphocytes (%) (Auto) 8 % (24-48) Monocytes (%) (Auto) 7 % (0-9) Eosinophils (%) (Auto) 2 % (0-3) Basophils (%) (Auto) 0 % (0-3) Neutrophils # (Auto) 10.7 x10^3uL (1.8-7.7) Lymphocytes # (Auto) 1.0 x10^3/uL (1.0-4.8) Monocytes # (Auto) 0.9 x10^3/uL (0.0-1.1) Eosinophils # (Auto) 0.2 x10^3/uL (0.0-0.7) Basophils # (Auto) 0.0 x10^3/uL (0.0-0.2) Sodium Level 149 mmol/L (136-145) Potassium Level 4.4 mmol/L (3.5-5.1) Chloride Level 111 mmol/L (98-107) Carbon Dioxide Level 32 mmol/L (21-32) Anion Gap 6 (6-14) Blood Urea Nitrogen 26 mg/dL (7-20) Creatinine 0.6 mg/dL (0.6-1.0) Estimated GFR (Cockcroft-Gault) 117.9 Glucose Level 302 mg/dL (70-99) Calcium Level 8.8 mg/dL (8.5-10.1) Phosphorus Level 3.4 mg/dL (2.6-4.7) Magnesium Level 1.9 mg/dL (1.8-2.4) Glucose (Fingerstick) 370 mg/dL (70-99) 237 mg/dL (70-99) 242 mg/dL (70-99) Test 01/07/19 06:05 01/07/19 06:35 01/07/19 12:01 White Blood Count 13.7 x10^3/uL (4.0-11.0) Red Blood Count 3.15 x10^6/uL (3.50-5.40) Hemoglobin 8.3 g/dL (12.0-15.5) Hematocrit 26.3 % (36.0-47.0) Mean Corpuscular Volume 84 fL (79-100) Mean Corpuscular Hemoglobin 26 pg (25-35) Mean Corpuscular Hemoglobin Concent 31 g/dL (31-37) Red Cell Distribution Width 25.1 % (11.5-14.5) Platelet Count 355 x10^3/uL (140-400) Neutrophils (%) (Auto) 86 % (31-73) Lymphocytes (%) (Auto) 7 % (24-48) Monocytes (%) (Auto) 5 % (0-9) Eosinophils (%) (Auto) 1 % (0-3) Basophils (%) (Auto) 1 % (0-3) Neutrophils # (Auto) 11.8 x10^3uL (1.8-7.7) Lymphocytes # (Auto) 1.0 x10^3/uL (1.0-4.8) Monocytes # (Auto) 0.7 x10^3/uL (0.0-1.1) Eosinophils # (Auto) 0.1 x10^3/uL (0.0-0.7) Basophils # (Auto) 0.1 x10^3/uL (0.0-0.2) Segmented Neutrophils % 87 % (35-66) Lymphocytes % 10 % (24-48) Monocytes % 2 % (0-10) Eosinophils % 1 % (0-5) Platelet Estimate Adequate (ADEQUATE) Hypochromasia Slight Anisocytosis Marked Glucose (Fingerstick) 322 mg/dL (70-99) 419 mg/dL (70-99) Laboratory Tests Test 01/06/19 18:07 01/07/19 00:05 01/07/19 06:05 01/07/19 06:35 Glucose (Fingerstick) 237 mg/dL (70-99) 242 mg/dL (70-99) 322 mg/dL (70-99) White Blood Count 13.7 x10^3/uL (4.0-11.0) Red Blood Count 3.15 x10^6/uL (3.50-5.40) Hemoglobin 8.3 g/dL (12.0-15.5) Hematocrit 26.3 % (36.0-47.0) Mean Corpuscular Volume 84 fL (79-100) Mean Corpuscular Hemoglobin 26 pg (25-35) Mean Corpuscular Hemoglobin Concent 31 g/dL (31-37) Red Cell Distribution Width 25.1 % (11.5-14.5) Platelet Count 355 x10^3/uL (140-400) Neutrophils (%) (Auto) 86 % (31-73) Lymphocytes (%) (Auto) 7 % (24-48) Monocytes (%) (Auto) 5 % (0-9) Eosinophils (%) (Auto) 1 % (0-3) Basophils (%) (Auto) 1 % (0-3) Neutrophils # (Auto) 11.8 x10^3uL (1.8-7.7) Lymphocytes # (Auto) 1.0 x10^3/uL (1.0-4.8) Monocytes # (Auto) 0.7 x10^3/uL (0.0-1.1) Eosinophils # (Auto) 0.1 x10^3/uL (0.0-0.7) Basophils # (Auto) 0.1 x10^3/uL (0.0-0.2) Segmented Neutrophils % 87 % (35-66) Lymphocytes % 10 % (24-48) Monocytes % 2 % (0-10) Eosinophils % 1 % (0-5) Platelet Estimate Adequate (ADEQUATE) Hypochromasia Slight Anisocytosis Marked Test 01/07/19 12:01 Glucose (Fingerstick) 419 mg/dL (70-99) Medications Active Scripts Medications Dose Route/Sig Max Daily Dose Days Date Category Chlorhexidine Gluconate 473 Ml Mouthwash 473 Ml MM BID 7 12/10/18 Rx Vitamin C (Ascorbate Calcium) 500 Mg Tablet 500 Mg PO DAILY 30 11/22/18 Rx Slow Release Iron (Ferrous Sulfate) 250 Mg Tablet.er 250 Mg PO DAILY 30 11/22/18 Rx Protonix (Pantoprazole Sodium) 40 Mg Granpkt.dr 40 Mg PO DAILY 30 11/22/18 Rx Metformin Hcl Er (Metformin Hcl) 500 Mg Tab.er.24h 1 Tab PO DAILY 11/12/16 Reported Namenda (Memantine Hcl) 10 Mg Tablet 1 Tab PO BID 11/12/16 Reported Losartan Potassium 100 Mg Tablet 100 Mg PO DAILY 11/12/16 Reported Spironolactone 25 Mg Tablet 1 Tab PO DAILY 11/12/16 Reported Ventolin Hfa Inhaler (Albuterol Sulfate) 18 Gm Hfa.aer.ad 2 Puff INH Q4HRS 11/11/16 Reported Cymbalta (Duloxetine Hcl) 20 Mg Capsule.dr 90 Mg PO DAILY 01/27/16 Reported Requip (Ropinirole Hcl) 1 Mg Tablet 3 Mg PO DAILY 01/27/16 Reported Amlodipine Besylate 10 Mg Tablet 10 Mg PO DAILY 01/27/16 Reported Comments cxr reviewed, b lat ll effusion/atelectasis/infilt L>R Impression . 1. Acute hypoxic respiratory failure MULTIFACTORIAL EXPECTED POST SURGICAL INTERVENTION 2. Gastrointestinal bleed/cecal ulceration by colonoscopy, status post laparoscopic-assisted right colon resection and hemorrhoidectomy 12/17 3. ileus S/P SECOND SURGERY 12/30 SEE BELOW 4. Underlying suspected severe chronic obstructive pulmonary disease. 5. Abnormal CT chest with focal opacity in the right upper lobe, could be nodule/ATELECTASIS Date: 12/17/2018 Preoperative diagnosis: GI bleed cecal ulceration by colonoscopy with active bleeding hemorrhoids Postoperative diagnosis: Same Procedure: Laparoscopic-assisted right colon resection and hemorrhoidectomy Surgeon: Jan Specimen: Right colon and hemorrhoids Date: 12/30/2018 Preoperative diagnosis: Small bowel obstruction Postoperative diagnosis: Small bowel obstruction at previous anastomotic site Procedure: Exploratory laparotomy with extended right hemicolectomy and primary anastomosis Plan . d/w RN PRN BIPAP for increase dyspnea with activity Duo Nebs pulmicort NG PER SURGEON IS, the importance of use discussed BD, cxr reviewed 01/[address] IN 4 MONTHS, dr hoover D/W DAUGHTER discussed w pt, rn, JEF CARLIN MD Jan 07, 2019 12:39
[2019-01-07] MEDS: TPN PER PHARMACY MC PRN (13:05)
--- NOTE | 2019-01-07 13:09 | NUR ---
Pharmacy TPN Dosing Note S: ELLE LATHAM is a 72 year old F Currently receiving Central Continuous TPN started 12/23/18 B:Pertinent PMH: SBO Height: 5 feet, 7 inches Weight: 85.611184 kg Current diet: npo LABS: Sodium: 149 Potassium: 4.4 Chloride: 111 Calcium: 8.8 Corrected Calcium: 10.48 Magnesium: 1.9 CO2: 32 SCr: 0.6 Glucose: 242-419 Albumin: 1.9 AST: 35 ALT: 44 TPN FORMULA: TPN TYPE: Central Continuous AMINO ACIDS: 85 gm DEXTROSE: 260 gm LIPIDS: 40 gm SODIUM CHLORIDE: 40 mEq SODIUM ACETATE: - mEq SODIUM PHOSPHATE: - mmol POTASSIUM CHLORIDE: 30 mEq POTASSIUM ACETATE: - mEq POTASSIUM PHOSPHATE: 13.6 mmol MAGNESIUM: 15 mEq CALCIUM: 0 mEq INSULIN: 10 units MULTIPLE VITAMIN: 10 ml TRACE ELEMENTS: MTE5 1 ml(s) TPN PLAN: Glucose elevated, insulins being adjusted by primary outside of TPN so will not make any adjustments to TPN Had labs , will order labs for Thursday per protocol R: Continue TPN as written above. Will monitor electrolytes, glucose, and tolerance to TPN. RO MAT[facility], 01/07/19 [id number]
--- NOTE | 2019-01-07 13:10 | NUR ---
Per Dr. Sands, RT notified of pt's request to be placed on bipap. Pt's family agreeable to bipap for comfort. Pt's family also stated they think it is her anxiety and asking anxiety meds be given. Family notified of pt taking home meds this am.
--- NOTE | 2019-01-07 13:44 | NUR ---
Dr. Chandler in the room to see pt, notified of retake of BS.
--- NOTE | 2019-01-07 13:53 | NUR ---
As of this post the daughter of this pt. is adament that they do not want this pt. to have any Respiratory Medications in between the scheduled txs. She believes this is adding to the pts. anxiety.
[2019-01-07 14:06] VITALS: BP 118/80
--- NOTE | 2019-01-07 14:38 | RAD ---
Portable chest, 01/07/2019: HISTORY: Tachypnea, wheezing Comparison is made to a study from 01/02/2019. A right PICC extends into the superior vena cava. The heart size and pulmonary vascularity are normal. There is a persistent hazy opacity in the left lower chest suggesting pleural fluid layering posteriorly. The previously seen mild right basilar opacity has partially cleared. The upper lung barnes are clear. No new abnormality is detected. There is mild gaseous distention of bowel loops in the upper abdomen. IMPRESSION: 1. Unchanged hazy left basilar opacity suggesting pleural fluid and/or atelectasis. 2. The mild right basilar opacity has partially cleared. Electronically signed by: Sedrick Pate MD (01/07/2019 2:35 PM) [facility]
--- NOTE | 2019-01-07 14:48 | NUR ---
Pt's abd more firm and distended from am assessment. Pt. appears uncomfortable, labored breathing noted. Relaxation techniques taught by RN and pt's family. Dr. Jan landin.
--- NOTE | 2019-01-07 14:54 | NUR ---
Dr. Montoya notified in change in pt's abd, stated to minimize PO fluids. Pt's family notified of POC.
[2019-01-07 15:00] VITALS: BP 103/52
--- NOTE | 2019-01-07 15:44 | PDOC ---
PROGRESS NOTES Chief Complaint Chief Complaint Anemia, colonic Avms Acute hypoxic respiratory failure, improving Cecal ulceration - s/p rt colon resection and hemorrhoidectomy 12/17 SBO - s/p ex lap, extended rt hemicolectomy, with post op malnutrition VISHNU COPD Sepsis/Leukopenia - meropenem and vanco, ID following History of Present Illness History of Present Illness some anxiety and tachycardia after breathing treatemetns CXR looks better, some clearning, poss effusion, pulmn following still very weak family at bedside Vitals Vitals Vital Signs Date Time Temp Pulse Resp B/P (MAP) Pulse Ox O2 Delivery O2 Flow Rate FiO2 01/07/19 14:40 Nasal Cannula 3.0 01/07/19 14:06 116 118/80 (93) 01/07/19 13:28 100 01/07/19 11:00 98.5 20 98.5 Physical Exam Physical Exam GENERAL: In bed, alert, relaxed appearance, Looks better HEENT: Oral cavity pink, dry NECK: Supple LUNGS: Diminished aeration bases HEART: S1, S2 ABDOMEN: A little more distended today, soft.. Incisions intact drain at base and ostomy bag : exteranl Freeman EXTREMITIES: LLE 1+ edema. no cyanosis SKIN: No rash. Rectal wound. NEUROLOGIC: Alert, responding appropriately RUE-PICC (12/23) clean General: Alert, Oriented X3, Cooperative, No acute distress Heart: Regular rate, No murmurs Lungs: Wheezing (resolved) Abdomen: Soft, Other (distention, dressing dry) Extremities: No clubbing, No cyanosis, No edema Skin: No breakdown, No significant lesion Labs LABS Laboratory Tests Test 01/06/19 18:07 01/07/19 00:05 01/07/19 06:05 01/07/19 06:35 Glucose (Fingerstick) 237 mg/dL (70-99) 242 mg/dL (70-99) 322 mg/dL (70-99) White Blood Count 13.7 x10^3/uL (4.0-11.0) Red Blood Count 3.15 x10^6/uL (3.50-5.40) Hemoglobin 8.3 g/dL (12.0-15.5) Hematocrit 26.3 % (36.0-47.0) Mean Corpuscular Volume 84 fL (79-100) Mean Corpuscular Hemoglobin 26 pg (25-35) Mean Corpuscular Hemoglobin Concent 31 g/dL (31-37) Red Cell Distribution Width 25.1 % (11.5-14.5) Platelet Count 355 x10^3/uL (140-400) Neutrophils (%) (Auto) 86 % (31-73) Lymphocytes (%) (Auto) 7 % (24-48) Monocytes (%) (Auto) 5 % (0-9) Eosinophils (%) (Auto) 1 % (0-3) Basophils (%) (Auto) 1 % (0-3) Neutrophils # (Auto) 11.8 x10^3uL (1.8-7.7) Lymphocytes # (Auto) 1.0 x10^3/uL (1.0-4.8) Monocytes # (Auto) 0.7 x10^3/uL (0.0-1.1) Eosinophils # (Auto) 0.1 x10^3/uL (0.0-0.7) Basophils # (Auto) 0.1 x10^3/uL (0.0-0.2) Segmented Neutrophils % 87 % (35-66) Lymphocytes % 10 % (24-48) Monocytes % 2 % (0-10) Eosinophils % 1 % (0-5) Platelet Estimate Adequate (ADEQUATE) Hypochromasia Slight Anisocytosis Marked Test 01/07/19 12:01 01/07/19 13:39 Glucose (Fingerstick) 419 mg/dL (70-99) 255 mg/dL (70-99) Comment Review of Relevant I have reviewed the following items abdifatah (where applicable) has been applied. Labs Laboratory Tests Test 01/06/19 06:00 01/06/19 11:56 01/06/19 18:07 01/07/19 00:05 White Blood Count 12.9 x10^3/uL (4.0-11.0) Red Blood Count 3.16 x10^6/uL (3.50-5.40) Hemoglobin 7.6 g/dL (12.0-15.5) Hematocrit 24.5 % (36.0-47.0) Mean Corpuscular Volume 78 fL (79-100) Mean Corpuscular Hemoglobin 24 pg (25-35) Mean Corpuscular Hemoglobin Concent 31 g/dL (31-37) Red Cell Distribution Width 24.1 % (11.5-14.5) Platelet Count 356 x10^3/uL (140-400) Neutrophils (%) (Auto) 83 % (31-73) Lymphocytes (%) (Auto) 8 % (24-48) Monocytes (%) (Auto) 7 % (0-9) Eosinophils (%) (Auto) 2 % (0-3) Basophils (%) (Auto) 0 % (0-3) Neutrophils # (Auto) 10.7 x10^3uL (1.8-7.7) Lymphocytes # (Auto) 1.0 x10^3/uL (1.0-4.8) Monocytes # (Auto) 0.9 x10^3/uL (0.0-1.1) Eosinophils # (Auto) 0.2 x10^3/uL (0.0-0.7) Basophils # (Auto) 0.0 x10^3/uL (0.0-0.2) Sodium Level 149 mmol/L (136-145) Potassium Level 4.4 mmol/L (3.5-5.1) Chloride Level 111 mmol/L (98-107) Carbon Dioxide Level 32 mmol/L (21-32) Anion Gap 6 (6-14) Blood Urea Nitrogen 26 mg/dL (7-20) Creatinine 0.6 mg/dL (0.6-1.0) Estimated GFR (Cockcroft-Gault) 117.9 Glucose Level 302 mg/dL (70-99) Calcium Level 8.8 mg/dL (8.5-10.1) Phosphorus Level 3.4 mg/dL (2.6-4.7) Magnesium Level 1.9 mg/dL (1.8-2.4) Glucose (Fingerstick) 370 mg/dL (70-99) 237 mg/dL (70-99) 242 mg/dL (70-99) Test 01/07/19 06:05 01/07/19 06:35 01/07/19 12:01 01/07/19 13:39 White Blood Count 13.7 x10^3/uL (4.0-11.0) Red Blood Count 3.15 x10^6/uL (3.50-5.40) Hemoglobin 8.3 g/dL (12.0-15.5) Hematocrit 26.3 % (36.0-47.0) Mean Corpuscular Volume 84 fL (79-100) Mean Corpuscular Hemoglobin 26 pg (25-35) Mean Corpuscular Hemoglobin Concent 31 g/dL (31-37) Red Cell Distribution Width 25.1 % (11.5-14.5) Platelet Count 355 x10^3/uL (140-400) Neutrophils (%) (Auto) 86 % (31-73) Lymphocytes (%) (Auto) 7 % (24-48) Monocytes (%) (Auto) 5 % (0-9) Eosinophils (%) (Auto) 1 % (0-3) Basophils (%) (Auto) 1 % (0-3) Neutrophils # (Auto) 11.8 x10^3uL (1.8-7.7) Lymphocytes # (Auto) 1.0 x10^3/uL (1.0-4.8) Monocytes # (Auto) 0.7 x10^3/uL (0.0-1.1) Eosinophils # (Auto) 0.1 x10^3/uL (0.0-0.7) Basophils # (Auto) 0.1 x10^3/uL (0.0-0.2) Segmented Neutrophils % 87 % (35-66) Lymphocytes % 10 % (24-48) Monocytes % 2 % (0-10) Eosinophils % 1 % (0-5) Platelet Estimate Adequate (ADEQUATE) Hypochromasia Slight Anisocytosis Marked Glucose (Fingerstick) 322 mg/dL (70-99) 419 mg/dL (70-99) 255 mg/dL (70-99) Laboratory Tests Test 01/06/19 18:07 01/07/19 00:05 01/07/19 06:05 01/07/19 06:35 Glucose (Fingerstick) 237 mg/dL (70-99) 242 mg/dL (70-99) 322 mg/dL (70-99) White Blood Count 13.7 x10^3/uL (4.0-11.0) Red Blood Count 3.15 x10^6/uL (3.50-5.40) Hemoglobin 8.3 g/dL (12.0-15.5) Hematocrit 26.3 % (36.0-47.0) Mean Corpuscular Volume 84 fL (79-100) Mean Corpuscular Hemoglobin 26 pg (25-35) Mean Corpuscular Hemoglobin Concent 31 g/dL (31-37) Red Cell Distribution Width 25.1 % (11.5-14.5) Platelet Count 355 x10^3/uL (140-400) Neutrophils (%) (Auto) 86 % (31-73) Lymphocytes (%) (Auto) 7 % (24-48) Monocytes (%) (Auto) 5 % (0-9) Eosinophils (%) (Auto) 1 % (0-3) Basophils (%) (Auto) 1 % (0-3) Neutrophils # (Auto) 11.8 x10^3uL (1.8-7.7) Lymphocytes # (Auto) 1.0 x10^3/uL (1.0-4.8) Monocytes # (Auto) 0.7 x10^3/uL (0.0-1.1) Eosinophils # (Auto) 0.1 x10^3/uL (0.0-0.7) Basophils # (Auto) 0.1 x10^3/uL (0.0-0.2) Segmented Neutrophils % 87 % (35-66) Lymphocytes % 10 % (24-48) Monocytes % 2 % (0-10) Eosinophils % 1 % (0-5) Platelet Estimate Adequate (ADEQUATE) Hypochromasia Slight Anisocytosis Marked Test 01/07/19 12:01 01/07/19 13:39 Glucose (Fingerstick) 419 mg/dL (70-99) 255 mg/dL (70-99) Microbiology 01/01/19 Blood Culture - Final, Complete NO GROWTH AFTER 5 DAYS 12/25/18 - Final, Complete 12/25/18 - Final, Complete 12/25/18 - Final, Complete 12/25/18 - Final, Complete 12/25/18 Gram Stain Evaluation - Final, Complete 12/25/18 Sputum Culture - Final, Complete 12/25/18 Sputum Result 1 - Final, Complete Medications Current Medications Sodium Chloride 1,000 ml @ 1,000 mls/hr 1X ONCE IV Last administered on at 13:52; Start 12/14/18 at 13:30; Stop 12/14/18 at 14:29; Status DC Amlodipine Besylate (Norvasc) 10 mg DAILY PO Last administered on 01/07/19 08: 45; Start 12/14/18 at 17:00 Chlorhexidine Gluconate (Peridex) 15 ml BID MM Last administered on 01/07/19 08:46; Start 12/14/18 at 21:00 Non-Formulary Medication (Albuterol Sulfate (Ventolin Hfa Inhaler)) 2 puff Q4HRS INH ; Start 12/14/18 at 20:00; Status UNV Ascorbic Acid (Vitamin C) 500 mg DAILY PO Last administered on 12/22/18 10:30; Start 12/14/18 at 17:00 Duloxetine HCl (Cymbalta) 90 mg DAILY PO Last administered on 01/07/19 08:48; Start 12/14/18 at 17:00 Ferrous Sulfate (Feosol) 325 mg DAILYWBKFT PO Last administered on 12/22/18 10: 30; Start 12/14/18 at 17:00 Losartan Potassium (Cozaar) 100 mg DAILY PO Last administered on 12/22/18 10:29 ; Start 12/14/18 at 17:00 Memantine (Namenda) 10 mg BID PO Last administered on 01/07/19 08:45; Start at 21:00 Pantoprazole Sodium (Protonix) 40 mg DAILYAC PO Last administered on 12/22/18 05:28; Start 12/14/18 at 17:00; Stop 12/24/18 at 09:25; Status DC Ropinirole HCl (Requip) 3 mg QHS PO Last administered on 12/26/18 21:25; Start 12/14/18 at 21:00 Spironolactone (Aldactone) 25 mg DAILY PO Last administered on 01/07/19 08:45 ; Start 12/14/18 at 17:00 Albuterol Sulfate (Ventolin Neb Soln) 2.5 mg Q4HRS NEB Last administered on 06:52; Start 12/14/18 at 20:00; Stop 01/02/19 at 07:24; Status DC Sodium Chloride 1,000 ml @ 80 mls/hr [id number] IV Last administered on 12/23/18 15:25; Start 12/14/18 at 17:15; Stop 12/23/18 at 21:59; Status DC Acetaminophen (Tylenol) 650 mg PRN Q6HRS PRN PO Pain Last administered on at 21:27; Start 12/15/18 at 04:45; Stop 12/26/18 at 21:07; Status DC Polyethylene Glycol (miraLAX Powder BULK BOTTLE) 238 gm 1X ONCE PO Last administered on 12/15/18at 12:48; Start 12/15/18 at 12:00; Stop 12/15/18 at 12:01 ; Status DC Ondansetron HCl (Zofran) 4 mg PRN Q6HRS PRN IV NAUSEA/VOMITING; Start 12/16/18 at 07:00; Stop 12/17/18 at 06:59; Status DC Fentanyl Citrate (Fentanyl 2ml Vial) 25 mcg PRN Q5MIN PRN IV MILD PAIN; Start 12/16/18 at 07:00; Stop 12/16/18 at 16:33; Status DC Fentanyl Citrate (Fentanyl 2ml Vial) 50 mcg PRN Q5MIN PRN IV MODERATE TO SEVERE PAIN; Start 12/16/18 at 07:00; Stop 12/16/18 at 16:33; Status DC Morphine Sulfate (Morphine Sulfate) 1 mg PRN Q10MIN PRN IV SEVERE PAIN; Start 12/16/18 at 07:00; Stop 12/17/18 at 06:59; Status DC Ringer's Solution 1,000 ml @ 30 mls/hr Q24H IV Last administered on 12/16/18at 13:00; Start 12/16/18 at 07:00; Stop 12/16/18 at 18:59; Status DC Lidocaine HCl (Xylocaine-Mpf 1% 2ml Vial) 2 ml PRN 1X PRN ID IV START; Start at 07:00; Stop 12/17/18 at 06:59; Status DC Hydromorphone HCl (Dilaudid) 0.5 mg PRN Q10MIN PRN IV SEV PAIN, Second choice; Start 12/16/18 at 07:00; Stop 12/17/18 at 06:59; Status DC Prochlorperazine Edisylate (Compazine) 5 mg PACU PRN PRN IV NAUSEA, MRX1; Start 12/16/18 at 07:00; Stop 12/17/18 at 06:59; Status DC Midazolam HCl (Versed) 2 mg PRN 1X PRN IV PRIOR TO PROCEDURE; Start 12/16/18 at 07:15; Stop 12/17/18 at 07:14; Status DC Fentanyl Citrate (Fentanyl 2ml Vial) 25 mcg PRN Q5MIN PRN IV X 2 DOSES FOR PAIN ; Start 12/16/18 at 07:15; Stop 12/16/18 at 16:33; Status DC Fentanyl Citrate (Fentanyl 2ml Vial) 50 mcg PRN Q5MIN PRN IV X 2 DOSES FOR PAIN ; Start 12/16/18 at 07:15; Stop 12/16/18 at 16:34; Status DC Ringer's Solution 1,000 ml @ 125 mls/hr Q8H IV ; Start 12/16/18 at 07:13; Stop 12/16/18 at 19:12; Status DC Lidocaine HCl (Xylocaine-Mpf 1% 2ml Vial) 2 ml 1X PRN PRN ID IV START; Start at 07:15; Stop 12/17/18 at 07:14; Status DC Propofol 40 ml @ As Directed STK-MED ONCE IV ; Start 12/16/18 at 13:58; Stop at 14:00; Status DC Prochlorperazine Edisylate (Compazine) 5 mg PACU PRN PRN IV NAUSEA, MRX1; Start 12/17/18 at 07:00; Stop 12/18/18 at 06:59; Status DC Hydromorphone HCl (Dilaudid) 0.5 mg PRN Q10MIN PRN IV SEV PAIN, Second choice; Start 12/17/18 at 07:00; Stop 12/18/18 at 06:59; Status DC Lidocaine HCl (Xylocaine-Mpf 1% 2ml Vial) 2 ml PRN 1X PRN ID IV START; Start at 07:00; Stop 12/18/18 at 06:59; Status DC Ringer's Solution 1,000 ml @ 30 mls/hr Q24H IV Last administered on 12/17/18at 10:34; Start 12/17/18 at 07:00; Stop 12/17/18 at 18:59; Status DC Morphine Sulfate (Morphine Sulfate) 1 mg PRN Q10MIN PRN IV SEVERE PAIN; Start 12/17/18 at 07:00; Stop 12/18/18 at 06:59; Status DC Fentanyl Citrate (Fentanyl 2ml Vial) 50 mcg PRN Q5MIN PRN IV MODERATE TO SEVERE PAIN Last administered on 12/17/18at 11:13; Start 12/17/18 at 07:00; Stop at 06:59; Status DC Fentanyl Citrate (Fentanyl 2ml Vial) 25 mcg PRN Q5MIN PRN IV MILD PAIN; Start 12/17/18 at 07:00; Stop 12/18/18 at 06:59; Status DC Ondansetron HCl (Zofran) 4 mg PRN Q6HRS PRN IV NAUSEA/VOMITING; Start 12/17/18 at 07:00; Stop 12/18/18 at 06:59; Status DC Propofol 20 ml @ As Directed STK-MED ONCE IV ; Start 12/17/18 at 07:21; Stop 12/17 at 07:23; Status DC Albuterol Sulfate (Ventolin Neb Soln) 2.5 mg 1X ONCE NEB ; Start 12/17/18 at 07: 30; Stop 12/17/18 at 07:31; Status DC Lidocaine HCl (Lidocaine Pf 2% Vial) 5 ml STK-MED ONCE .ROUTE ; Start 12/17/18 at 07:21; Stop 12/17/18 at 07:23; Status DC Succinylcholine Chloride (Anectine) 200 mg STK-MED ONCE .ROUTE ; Start 12/17/18 at 07:21; Stop 12/17/18 at 07:23; Status DC Rocuronium [place] (Zemuron) 50 mg STK-MED ONCE .ROUTE ; Start 12/17/18 at 07:21 ; Stop 12/17/18 at 07:23; Status DC Fentanyl Citrate (Fentanyl 2ml Vial) 100 mcg STK-MED ONCE .ROUTE ; Start at 07:21; Stop 12/17/18 at 07:24; Status DC Cefazolin Sodium/ Dextrose 50 ml @ 100 mls/hr 1X ONCE IV Last administered on 12/17/18at 08:07; Start 12/17/18 at 07:45; Stop 12/17/18 at 08:18; Status DC Bupivacaine HCl/ Epinephrine Bitart (Sensorcain-Mpf Epi 0.5%-1:[id number]) 30 ml STK -MED ONCE .ROUTE Last administered on 12/17/18at 08:34; Start 12/17/18 at 07:46; Stop 12/17/18 at 07:49; Status DC Neomycin/ Polymyxin/ Bacitracin (Triple Antibiotic Ointment) 1 pkt STK-MED ONCE TP Last administered on 12/17/18at 10:07; Start 12/17/18 at 07:46; Stop 12/17/18 at 07:49; Status DC Neomycin/ Polymyxin/ Bacitracin (Triple Antibiotic Ointment) 1 pkt STK-MED ONCE TP Last administered on 12/17/18at 10:07; Start 12/17/18 at 07:46; Stop 12/17/18 at 07:49; Status DC Neomycin/ Polymyxin/ Bacitracin (Triple Antibiotic Ointment) 1 pkt STK-MED ONCE TP ; Start 12/17/18 at 07:47; Stop 12/17/18 at 07:49; Status DC Dexamethasone Sodium Phosphate (Decadron) 20 mg STK-MED ONCE .ROUTE ; Start 12/17 at 07:54; Stop 12/17/18 at 07:56; Status DC Hydrocortisone Sodium Succinate (Solu-CORTEF) 100 mg STK-MED ONCE .ROUTE ; Start 12/17/18 at 07:54; Stop 12/17/18 at 07:56; Status DC Desflurane (Suprane) 90 ml STK-MED ONCE IH ; Start 12/17/18 at 07:54; Stop at 07:56; Status DC Neostigmine Methylsulfate (Bloxiverz) 10 mg STK-MED ONCE .ROUTE ; Start 12/17/18 at 08:21; Stop 12/17/18 at 08:24; Status DC Glycopyrrolate (Robinul) 1 mg STK-MED ONCE .ROUTE ; Start 12/17/18 at 08:21; Stop 12/17/18 at 08:24; Status DC Phenylephrine HCl (Bogdan-Synephrine Inj) 10 mg STK-MED ONCE .ROUTE ; Start at 08:23; Stop 12/17/18 at 08:26; Status DC Desflurane (Suprane) 60 ml STK-MED ONCE IH ; Start 12/17/18 at 09:23; Stop at 09:26; Status DC Bupivacaine HCl/ Epinephrine Bitart (Sensorcain-Mpf Epi 0.5%-1:[id number]) 30 ml STK -MED ONCE .ROUTE Last administered on 12/17/18 10:06; Start 12/17/18 at 09:41; Stop 12/17/18 at 09:43; Status DC Morphine Sulfate (Morphine Sulfate) 2 mg PRN Q2HR PRN IV PAIN Last administered on 12/25/18 09:26; Start 12/17/18 at 10:15; Stop 12/25/18 at 17:54; Status DC Ketorolac Tromethamine (Toradol 15mg Vial) 15 mg Q6HRS IV Last administered on 12/18/18 05:39; Start 12/17/18 at 12:00; Stop 12/18/18 at 10:00; Status DC Artificial Tears (Artificial Tears) 1 drop PRN Q15MIN PRN OU DRY EYE Last administered on 12/20/18 21:28; Start 12/18/18 at 08:00 Docusate Sodium (Colace) 100 mg DAILY PO Last administered on 01/07/19 08:45; Start 12/18/18 at 10:00 Throat Lozenges (Cepacol Sore Throat Lozenge) 1 kristyn PRN Q2HRS PRN PO SORE THROAT Last administered on 01/05/19 17:30; Start 12/18/18 at 14:00 Enoxaparin Sodium (Lovenox 40mg Syringe) 40 mg Q24H SQ Last administered on 08:46; Start 12/19/18 at 09:00 Ondansetron HCl (Zofran) 4 mg PRN Q6HRS PRN IV NAUSEA/VOMITING Last administered on 01/07/19 07:57; Start 12/19/18 at 11:30 Insulin Human Lispro (HumaLOG) 0-5 UNITS TIDWMEALS SQ Last administered on 12/30 18:23; Start 12/19/18 at 17:00; Stop 12/31/18 at 00:05; Status DC Dextrose (Dextrose 50%-Water Syringe) 12.5 gm PRN Q15MIN PRN IV SEE COMMENTS; Start 12/19/18 at 16:45 Levofloxacin/ Dextrose 100 ml @ 100 mls/hr 1X ONCE IV Last administered on 12/19/18at 20:56; Start 12/19/18 at 21:00; Stop 12/19/18 at 21:59; Status DC Cefepime HCl (Maxipime) 2 gm Q12HR IVP Last administered on 12/29/18 10:02; Start 12/21/18 at 10:00; Stop 12/29/18 at 10:37; Status DC Sodium Chloride 1,000 ml @ 125 mls/hr 1X ONCE IV Last administered on 10:43; Start 12/21/18 at 09:45; Stop 12/21/18 at 17:44; Status DC Calcium Carbonate/ Glycine (Tums) 500 mg PRN AFTMEALHC PRN PO INDIGESTION Last administered on 12/21/18 13:10; Start 12/21/18 at 12:15 Lorazepam (Ativan) 1 mg 1X ONCE IV Last administered on 12/21/18 17:50; Start 12/21/18 at 17:30; Stop 12/21/18 at 17:31; Status DC Albuterol Sulfate (Ventolin Neb Soln) 2.5 mg PRN Q2HRS PRN NEB SHORTNESS OF BREATH Last administered on 01/07/19at 12:45; Start 12/21/18 at 17:30 Nicotine (Nicoderm Cq 14mg) 1 patch PRN DAILY PRN TD SMOKING CESSATION Last administered on 12/26/18at 09:59; Start 12/21/18 at 19:30 Lorazepam (Ativan) 1 mg 1X ONCE IV Last administered on 12/21/18 23:45; Start 12/21/18 at 23:45; Stop 12/21/18 at 23:46; Status DC Lorazepam (Ativan) 1 mg PRN Q4HRS PRN IV ANXIETY / AGITATION Last administered on 12/22/18 11:15; Start 12/21/18 at 23:30; Stop 12/22/18 at 14:42; Status DC Sodium Chloride 1,000 ml @ 250 mls/hr 1X ONCE IV Last administered on at 09:15; Start 12/22/18 at 09:15; Stop 12/22/18 at 13:14; Status DC Lidocaine/Sodium Bicarbonate (Buffered Lidocaine 1%) 3 ml STK-MED ONCE .ROUTE ; Start 12/23/18 at 10:33; Stop 12/23/18 at 10:35; Status DC Lidocaine/Sodium Bicarbonate (Buffered Lidocaine 1%) 3 ml 1X ONCE INJ Last administered on 12/23/18at 11:24; Start 12/23/18 at 11:00; Stop 12/23/18 at 11:10; Status DC Info (Tpn Per Pharmacy) 1 each PRN DAILY PRN MC SEE COMMENTS Last administered on 01/07/19at 13:05; Start 12/23/18 at 14:00 Sodium Chloride 90 meq/Potassium Chloride 50 meq/ Potassium Phosphate 20.4 mmol/ Magnesium Sulfate 18 meq/ Calcium Gluconate 5 meq/ Multivitamins 10 ml/Chromium / Copper/Manganese/ Seleni/Zn 1 ml/ Total Parenteral Nutrition/Amino Acids/ Dextrose/ Fat Emulsion Intravenous 1,512 ml @ 63 mls/hr TPN CONT IV Last administered on 12/23/18at 21:37; Start 12/23/18 at 22:00; Stop 12/24/18 at 21:59; Status DC Alprazolam (Xanax) 0.25 mg PRN BID PRN PO ANXIETY / AGITATION Last administered on 12/25/18at 09:25; Start 12/23/18 at 23:00; Stop 12/25/18 at 17:54; Status DC Lorazepam (Ativan) 1 mg PRN Q4HRS PRN IV ANXIETY / AGITATION Last administered on 12/24/18at 09:21; Start 12/24/18 at 08:45; Stop 12/24/18 at 10:19; Status DC Pantoprazole Sodium (PROTONIX VIAL for IV PUSH) 40 mg DAILYAC IVP Last administered on 01/07/19at 06:45; Start 12/24/18 at 09:30 Lorazepam (Ativan) 0.5 mg PRN Q4HRS PRN IV ANXIETY / AGITATION Last administered on 12/25/18at 04:47; Start 12/24/18 at 10:30; Stop 12/25/18 at 10:22; Status DC Sodium Chloride 45 meq/Sodium Acetate 45 meq/ Potassium Chloride 50 meq/ Potassium Phosphate 20.4 mmol/Magnesium Sulfate 18 meq/ Calcium Gluconate 5 meq / Multivitamins 10 ml/Chromium/ Copper/Manganese/ Seleni/Zn 1 ml/ Total Parenteral Nutrition/Amino Acids/Dextrose/ Fat Emuls... 1,512 ml @ 63 mls/hr TPN CONT IV Last administered on 12/24/18at 21:57; Start 12/24/18 at 22:00; Stop 12/25/18 at 21:59; Status DC Phenyleph/Shark Oil/Min Oil/Petrol (Preparation H) 1 ranjith PRN Q4HRS PRN RC RECTAL PAIN; Start 12/24/18 at 12:45; Stop 12/25/18 at 20:20; Status DC Sodium Chloride 45 meq/Sodium Acetate 45 meq/ Potassium Chloride 50 meq/ Potassium Phosphate 20.4 mmol/Magnesium Sulfate 18 meq/ Calcium Gluconate 5 meq / Multivitamins 10 ml/Chromium/ Copper/Manganese/ Seleni/Zn 1 ml/ Total Parenteral Nutrition/Amino Acids/Dextrose/ Fat Emuls... 1,512 ml @ 63 mls/hr TPN CONT IV Last administered on 12/26/18at 00:34; Start 12/25/18 at 22:00; Stop 12/26/18 at 21:59; Status DC Neomycin/ Polymyxin/ Bacitracin (Triple Antibiotic Ointment) 1 pkt PRN TID PRN TP skin around rectum, post op Last administered on 01/05/19at 08:07; Start at 14:30 Alprazolam (Xanax) 0.25 mg PRN Q8HRS PRN PO ANXIETY / AGITATION Last administered on 01/07/19at 13:01; Start 12/25/18 at 18:00 Morphine Sulfate (Morphine Sulfate) 2 mg PRN Q6HRS PRN IV PAIN Last administered on 12/29/18at 21:47; Start 12/25/18 at 18:00; Stop 12/30/18 at 03:17 ; Status DC Guaifenesin (Mucinex) 600 mg BID PO Last administered on 12/26/18at 21:26; Start 12/26/18 at 11:00 Guaifenesin (Mucinex) 600 mg BID PO ; Start 12/26/18 at 11:00; Status UNV Guaifenesin/ Codeine Phosphate (Robitussin Ac) 5 ml PRN Q6HRS PRN PO COUGH Last administered on 12/26/18at 10:41; Start 12/26/18 at 10:30 Sodium Acetate 90 meq/Potassium Chloride 50 meq/ Potassium Phosphate 13.6 mmol/ Magnesium Sulfate 18 meq/ Calcium Gluconate 5 meq/ Multivitamins 10 ml/Chromium / Copper/Manganese/ Seleni/Zn 1 ml/ Total Parenteral Nutrition/Amino Acids/ Dextrose/ Fat Emulsion Intravenous 1,512 ml @ 63 mls/hr TPN CONT IV Last administered on 12/26/18at 21:37; Start 12/26/18 at 22:00; Stop 12/28/18 at 01:28 ; Status DC Benzocaine (Hurricaine One) 1 spray 1X ONCE MM ; Start 12/26/18 at 19:15; Stop 12/26/18 at 19:16; Status DC Acetaminophen (Tylenol) 650 mg PRN Q6HRS PRN PO MILD PAIN / TEMP Last administered on 12/27/18at 04:39; Start 12/26/18 at 21:00 Benzocaine (Hurricaine One) 1 spray 1X ONCE MM Last administered on 12/27/18at 09:00; Start 12/27/18 at 09:15; Stop 12/27/18 at 09:16; Status DC Sodium Acetate 90 meq/Potassium Chloride 50 meq/ Potassium Phosphate 13.6 mmol/ Magnesium Sulfate 15 meq/ Calcium Gluconate 5 meq/ Multivitamins 10 ml/Chromium / Copper/Manganese/ Seleni/Zn 1 ml/ Total Parenteral Nutrition/Amino Acids/ Dextrose/ Fat Emulsion Intravenous 1,512 ml @ 63 mls/hr TPN CONT IV ; Start at 22:00; Stop 12/28/18 at 21:59; Status Cancel Sodium Acetate 90 meq/Potassium Chloride 50 meq/ Potassium Phosphate 13.6 mmol/ Magnesium Sulfate 15 meq/ Calcium Gluconate 5 meq/ Multivitamins 10 ml/Chromium / Copper/Manganese/ Seleni/Zn 1 ml/ Total Parenteral Nutrition/Amino Acids/ Dextrose/ Fat Emulsion Intravenous 1,512 ml @ 63 mls/hr TPN CONT IV ; Start at 22:00; Stop 12/28/18 at 21:59; Status DC Lidocaine/Sodium Bicarbonate (Buffered Lidocaine 1%) 3 ml 1X ONCE INJ ; Start 12/28/18 at 09:00; Stop 12/28/18 at 09:01; Status Cancel Benzocaine (Hurricaine One) 1 spray 1X ONCE MM Last administered on 12/28/18at 09:32; Start 12/28/18 at 09:30; Stop 12/28/18 at 09:33; Status DC Sodium Acetate 90 meq/Potassium Chloride 50 meq/ Potassium Phosphate 13.6 mmol/ Magnesium Sulfate 15 meq/ Calcium Gluconate 5 meq/ Multivitamins 10 ml/Chromium / Copper/Manganese/ Seleni/Zn 1 ml/ Total Parenteral Nutrition/Amino Acids/ Dextrose/ Fat Emulsion Intravenous 1,512 ml @ 63 mls/hr TPN CONT IV Last administered on 12/28/18at 22:06; Start 12/28/18 at 22:00; Stop 12/29/18 at 21:59 ; Status DC Iohexol (Omnipaque 300 Mg/ml) 400 ml 1X ONCE PO Last administered on at 08:15; Start 12/29/18 at 06:45; Stop 12/29/18 at 06:46; Status DC Info (CONTRAST GIVEN -- Rx MONITORING) 1 each PRN DAILY PRN MC SEE COMMENTS; Start 12/29/18 at 06:45; Stop 12/31/18 at 06:44; Status DC Iohexol (Omnipaque 300 Mg/ml) 400 ml 1X ONCE PO ; Start 12/29/18 at 07:00; Stop 12/29/18 at 07:03; Status DC Info (CONTRAST GIVEN -- Rx MONITORING) 1 each PRN DAILY PRN MC SEE COMMENTS; Start 12/29/18 at 07:15; Stop 12/31/18 at 07:14; Status DC Meropenem 500 mg/ Sodium Chloride 50 ml @ 100 mls/hr Q6HRS IV Last administered on 01/07/19at 06:05; Start 12/29/18 at 12:00; Stop 01/07/19 at 08:34 ; Status DC Multi-Ingredient Ointment (Analgesic Theodore) 1 ranjith PRN QID PRN TP MUSCLE PAIN Last administered on 12/29/18at 14:40; Start 12/29/18 at 13:00 Sodium Acetate 90 meq/Potassium Chloride 50 meq/ Potassium Phosphate 13.6 mmol/ Magnesium Sulfate 15 meq/ Calcium Gluconate 5 meq/ Multivitamins 10 ml/Chromium / Copper/Manganese/ Seleni/Zn 1 ml/ Total Parenteral Nutrition/Amino Acids/ Dextrose/ Fat Emulsion Intravenous 1,512 ml @ 63 mls/hr TPN CONT IV Last administered on 12/29/18at 21:40; Start 12/29/18 at 22:00; Stop 12/30/18 at 21:59 ; Status DC Morphine Sulfate (Morphine Sulfate) 2 mg PRN Q4HRS PRN IV SEVERE PAIN Last administered on 12/30/18at 19:50; Start 12/30/18 at 03:30; Stop 12/30/18 at 21:33 ; Status DC Propofol 20 ml @ As Directed STK-MED ONCE IV ; Start 12/30/18 at 12:51; Stop at 12:52; Status DC Dexamethasone Sodium Phosphate (Decadron) 20 mg STK-MED ONCE .ROUTE ; Start at 12:51; Stop 12/30/18 at 12:52; Status DC Lidocaine HCl (Lidocaine Pf 2% Vial) 5 ml STK-MED ONCE .ROUTE ; Start 12/30/18 at 12:51; Stop 12/30/18 at 12:52; Status DC Ondansetron HCl (Zofran) 4 mg STK-MED ONCE .ROUTE ; Start 12/30/18 at 12:51; Stop 12/30/18 at 12:52; Status DC Rocuronium [place] (Zemuron) 50 mg STK-MED ONCE .ROUTE ; Start 12/30/18 at 12:51 ; Stop 12/30/18 at 12:52; Status DC Succinylcholine Chloride (Anectine) 200 mg STK-MED ONCE .ROUTE ; Start 12/30/18 at 12:51; Stop 12/30/18 at 12:52; Status DC Fentanyl Citrate (Fentanyl 5ml Vial) 250 mcg STK-MED ONCE .ROUTE ; Start at 13:49; Stop 12/30/18 at 13:50; Status DC Sodium Chloride 90 meq/Potassium Chloride 50 meq/ Potassium Phosphate 13.6 mmol/ Magnesium Sulfate 15 meq/ Multivitamins 10 ml/Chromium/ Copper/Manganese/ Seleni /Zn 1 ml/ Total Parenteral Nutrition/Amino Acids/Dextrose/ Fat Emulsion Intravenous 1,512 ml @ 63 mls/hr TPN CONT IV Last administered on 12/30/18at 23:43; Start 12/30/18 at 22:00; Stop 12/31/18 at 21:59; Status DC Vasopressin (Vasostrict) 20 unit STK-MED ONCE .ROUTE ; Start 12/30/18 at 15:00; Stop 12/30/18 at 15:01; Status DC Sodium Chloride (SODIUM CHLORIDE 20ml) 20 ml STK-MED ONCE IJ ; Start 12/30/18 at 15:01; Stop 12/30/18 at 15:02; Status DC Albumin Human 500 ml @ As Directed STK-MED ONCE IV ; Start 12/30/18 at 15:01; Stop 12/30/18 at 15:02; Status DC Glycopyrrolate (Robinul) 1 mg STK-MED ONCE .ROUTE ; Start 12/30/18 at 15:21; Stop 12/30/18 at 15:22; Status DC Neostigmine Methylsulfate (Bloxiverz) 10 mg STK-MED ONCE .ROUTE ; Start at 15:21; Stop 12/30/18 at 15:22; Status DC Albuterol/ Ipratropium (Duoneb) 3 ml STK-MED ONCE .ROUTE ; Start 12/30/18 at 15: 45; Stop 12/30/18 at 15:46; Status DC Fentanyl Citrate (Fentanyl 2ml Vial) 100 mcg STK-MED ONCE .ROUTE ; Start at 16:56; Stop 12/30/18 at 16:57; Status DC Ondansetron HCl (Zofran) 4 mg PRN Q6HRS PRN IV NAUSEA/VOMITING; Start 12/30/18 at 17:15; Stop 12/30/18 at 21:35; Status DC Fentanyl Citrate (Fentanyl 2ml Vial) 25 mcg PRN Q5MIN PRN IV MILD PAIN Last administered on 12/30/18at 17:15; Start 12/30/18 at 17:15; Stop 12/30/18 at 21:35 ; Status DC Fentanyl Citrate (Fentanyl 2ml Vial) 50 mcg PRN Q5MIN PRN IV MODERATE TO SEVERE PAIN Last administered on 12/30/18at 17:57; Start 12/30/18 at 17:15; Stop 12/30/18 at 21:35; Status DC Morphine Sulfate (Morphine Sulfate) 1 mg PRN Q10MIN PRN IV SEVERE PAIN; Start 12/30/18 at 17:15; Stop 12/31/18 at 17:14; Status DC Ringer's Solution 1,000 ml @ 30 mls/hr Q24H IV Last administered on 12/30/18at 18:09; Start 12/30/18 at 17:10; Stop 12/30/18 at 21:33; Status DC Lidocaine HCl (Xylocaine-Mpf 1% 2ml Vial) 2 ml 1X PRN PRN ID IV START; Start at 17:15; Stop 12/30/18 at 21:35; Status DC Hydromorphone HCl (Dilaudid) 0.5 mg PRN Q10MIN PRN IV SEV PAIN, Second choice; Start 12/30/18 at 17:15; Stop 12/30/18 at 21:35; Status DC Prochlorperazine Edisylate (Compazine) 5 mg PACU PRN PRN IV NAUSEA, MRX1; Start 12/30/18 at 17:15; Stop 12/30/18 at 21:35; Status DC Albumin Human 100 ml @ 100 mls/hr 1X ONCE IV Last administered on 12/30/18at 22:00; Start 12/30/18 at 22:00; Stop 12/30/18 at 22:59; Status DC Ringer's Solution 500 ml @ 500 mls/hr 1X ONCE IV Last administered on at 22:00; Start 12/30/18 at 22:00; Stop 12/30/18 at 22:59; Status DC Ringer's Solution 1,000 ml @ 100 mls/hr Q10H IV Last administered on at 00:58; Start 12/30/18 at 23:00; Stop 01/01/19 at 09:30; Status DC Hydromorphone HCl (Dilaudid) 0.5 mg PRN Q2HR PRN IV MODERATE PAIN Last administered on 01/04/19at 10:08; Start 12/30/18 at 21:30; Stop 01/04/19 at 15:05 ; Status DC Hydromorphone HCl (Dilaudid) 1 mg PRN Q2HR PRN IV SEVERE PAIN Last administered on 01/04/19at 04:51; Start 12/30/18 at 21:30; Stop 01/04/19 at 15:05 ; Status DC Insulin Human Lispro (HumaLOG) 0-5 UNITS Q6HRS SQ Last administered on at 06:42; Start 12/31/18 at 00:30; Stop 01/06/19 at 12:47; Status DC Sodium Chloride 90 meq/Potassium Chloride 30 meq/ Potassium Phosphate 13.6 mmol/ Magnesium Sulfate 15 meq/ Calcium Gluconate 5 meq/ Multivitamins 10 ml/Chromium / Copper/Manganese/ Seleni/Zn 1 ml/ Total Parenteral Nutrition/Amino Acids/ Dextrose/ Fat Emulsion Intravenous 1,512 ml @ 63 mls/hr TPN CONT IV Last administered on 12/31/18at 21:58; Start 12/31/18 at 22:00; Stop 01/01/19 at 21:59 ; Status DC Sodium Chloride 90 meq/Potassium Chloride 30 meq/ Potassium Phosphate 13.6 mmol/ Magnesium Sulfate 15 meq/ Calcium Gluconate 5 meq/ Multivitamins 10 ml/Chromium / Copper/Manganese/ Seleni/Zn 1 ml/ Total Parenteral Nutrition/Amino Acids/ Dextrose/ Fat Emulsion Intravenous 1,512 ml @ 63 mls/hr TPN CONT IV Last administered on 01/01/19at 21:09; Start 01/01/19 at 22:00; Stop 01/02/19 at 21:59 ; Status DC Vancomycin HCl (Vanco Per Pharmacy) 1 each PRN DAILY PRN MC SEE COMMENTS Last administered on 01/03/19at 10:18; Start 01/01/19 at 11:15; Stop 01/03/19 at 11:23 ; Status DC Vancomycin HCl 2 gm/Sodium Chloride 500 ml @ 250 mls/hr ONCE ONCE IV Last administered on 01/01/19at 12:28; Start 01/01/19 at 12:00; Stop 01/01/19 at 13:59 ; Status DC Vancomycin HCl 1.25 gm/Sodium Chloride 250 ml @ 166.667 mls/hr Q24H IV ; Start 01/01/19 at 12:00; Status Cancel Vancomycin HCl (Vancomycin Trough Level) 1 each 1X ONCE MC ; Start 01/03/19 at 11:30; Stop 01/03/19 at 11:31; Status Cancel Vancomycin HCl 1.25 gm/Sodium Chloride 250 ml @ 166.667 mls/hr Q24H IV Last administered on 01/02/19at 13:04; Start 01/02/19 at 12:00; Stop 01/03/19 at 11:23 ; Status DC Albuterol/ Ipratropium (Duoneb) 3 ml 1X ONCE NEB Last administered on at 08:19; Start 01/02/19 at 07:30; Stop 01/02/19 at 07:31; Status DC Albuterol/ Ipratropium (Duoneb) 3 ml Q4HRS NEB Last administered on 01/07/19at 10:41; Start 01/02/19 at 12:00 Furosemide (Lasix) 20 mg 1X ONCE IVP Last administered on 01/02/19at 07:36; Start 01/02/19 at 07:30; Stop 01/02/19 at 07:31; Status DC Sodium Chloride 90 meq/Potassium Chloride 30 meq/ Potassium Phosphate 13.6 mmol/ Magnesium Sulfate 15 meq/ Calcium Gluconate 5 meq/ Multivitamins 10 ml/Chromium / Copper/Manganese/ Seleni/Zn 1 ml/ Total Parenteral Nutrition/Amino Acids/ Dextrose/ Fat Emulsion Intravenous 1,512 ml @ 63 mls/hr TPN CONT IV Last administered on 01/02/19at 21:20; Start 01/02/19 at 22:00; Stop 01/03/19 at 21:59 ; Status DC Sodium Chloride 90 meq/Potassium Chloride 30 meq/ Potassium Phosphate 13.6 mmol/ Magnesium Sulfate 15 meq/ Multivitamins 10 ml/Chromium/ Copper/Manganese/ Seleni /Zn 1 ml/ Insulin Human Regular 10 unit/ Total Parenteral Nutrition/Amino Acids/ Dextrose/ Fat Emulsion Intravenous 1,512 ml @ 63 mls/hr TPN CONT IV Last administered on 01/03/19at 22:07; Start 01/03/19 at 22:00; Stop 01/04/19 at 21:59 ; Status DC Sodium Chloride 90 meq/Potassium Chloride 30 meq/ Potassium Phosphate 13.6 mmol/ Magnesium Sulfate 15 meq/ Multivitamins 10 ml/Chromium/ Copper/Manganese/ Seleni /Zn 1 ml/ Insulin Human Regular 10 unit/ Total Parenteral Nutrition/Amino Acids/ Dextrose/ Fat Emulsion Intravenous 1,512 ml @ 63 mls/hr TPN CONT IV Last administered on 01/04/19at 22:11; Start 01/04/19 at 22:00; Stop 01/05/19 at 21:59 ; Status DC Hydromorphone HCl (Dilaudid) 0.5 mg PRN Q6HRS PRN IV MODERATE PAIN Last administered on 01/07/19at 14:40; Start 01/04/19 at 15:15 Hydromorphone HCl (Dilaudid) 1 mg PRN Q6HRS PRN IV SEVERE PAIN Last administered on 01/05/19at 02:18; Start 01/04/19 at 15:15 Dextrose (Dextrose 50%-Water Syringe) 25 gm STK-MED ONCE IV ; Start 01/04/19 at 08:50; Stop 01/05/19 at 08:26; Status DC Sodium Chloride 90 meq/Potassium Chloride 30 meq/ Potassium Phosphate 13.6 mmol/ Magnesium Sulfate 15 meq/ Multivitamins 10 ml/Chromium/ Copper/Manganese/ Seleni /Zn 1 ml/ Insulin Human Regular 10 unit/ Total Parenteral Nutrition/Amino Acids/ Dextrose/ Fat Emulsion Intravenous 1,512 ml @ 63 mls/hr TPN CONT IV Last administered on 01/05/19at 21:52; Start 01/05/19 at 22:00; Stop 01/06/19 at 21:59 ; Status DC Budesonide (Pulmicort) 0.5 mg RTBID NEB Last administered on 01/07/19at 07:04; Start 01/05/19 at 12:00 Insulin Glargine (Lantus) 12 units DAILY10 SQ Last administered on 01/07/19at 08 :55; Start 01/06/19 at 13:30 Sodium Chloride 40 meq/Potassium Chloride 30 meq/ Potassium Phosphate 13.6 mmol/ Magnesium Sulfate 15 meq/ Multivitamins 10 ml/Chromium/ Copper/Manganese/ Seleni /Zn 1 ml/ Insulin Human Regular 10 unit/ Total Parenteral Nutrition/Amino Acids/ Dextrose/ Fat Emulsion Intravenous 1,512 ml @ 63 mls/hr TPN CONT IV Last administered on 01/07/19at 00:36; Start 01/06/19 at 22:00; Stop 01/07/19 at 21:59 Insulin Human Lispro (HumaLOG) 12 units 1X ONCE SQ Last administered on at 14:18; Start 01/06/19 at 13:00; Stop 01/06/19 at 13:01; Status DC Insulin Human Lispro (HumaLOG) 0-9 UNITS Q6HRS SQ Last administered on at 06:45; Start 01/06/19 at 18:00 Insulin Human Lispro (HumaLOG) 3 units 1X ONCE SQ Last administered on at 00:33; Start 01/07/19 at 00:30; Stop 01/07/19 at 00:31; Status DC Insulin Human Lispro (HumaLOG) 20 units 1X ONCE SQ Last administered on at 12:22; Start 01/07/19 at 12:15; Stop 01/07/19 at 12:16; Status DC Insulin Human Lispro (HumaLOG) 10 units TIDAC SQ ; Start 01/07/19 at 16:30 Sodium Chloride 40 meq/Potassium Chloride 30 meq/ Potassium Phosphate 13.6 mmol/ Magnesium Sulfate 15 meq/ Multivitamins 10 ml/Chromium/ Copper/Manganese/ Seleni /Zn 1 ml/ Insulin Human Regular 10 unit/ Total Parenteral Nutrition/Amino Acids/ Dextrose/ Fat Emulsion Intravenous 1,512 ml @ 63 mls/hr TPN CONT IV ; Start at 22:00; Stop 01/08/19 at 21:59 Insulin Human Lispro (HumaLOG) 10 units 1X ONCE SQ Last administered on at 14:19; Start 01/07/19 at 14:00; Stop 01/07/19 at 14:01; Status DC Active Scripts Active Chlorhexidine Gluconate 473 Ml Mouthwash 473 Ml MM BID 7 Days Vitamin C (Ascorbate Calcium) 500 Mg Tablet 500 Mg PO DAILY 30 Days Slow Release Iron (Ferrous Sulfate) 250 Mg Tablet.er 250 Mg PO DAILY 30 Days Protonix (Pantoprazole Sodium) 40 Mg Granpkt.dr 40 Mg PO DAILY 30 Days Reported Alprazolam 0.25 Mg Tablet 0.25 Mg PO DAILY Metformin Hcl Er (Metformin Hcl) 500 Mg Tab.er.24h 1 Tab PO DAILY Namenda (Memantine Hcl) 10 Mg Tablet 1 Tab PO BID Losartan Potassium 100 Mg Tablet 100 Mg PO DAILY Spironolactone 25 Mg Tablet 1 Tab PO DAILY Ventolin Hfa Inhaler (Albuterol Sulfate) 18 Gm Hfa.aer.ad 2 Puff INH Q4HRS Cymbalta (Duloxetine Hcl) 20 Mg Capsule.dr 90 Mg PO DAILY Requip (Ropinirole Hcl) 1 Mg Tablet 3 Mg PO DAILY Amlodipine Besylate 10 Mg Tablet 10 Mg PO DAILY Vitals/I & O Vital Sign - Last 24 Hours 01/06/19 01/06/19 01/06/19 01/06/19 16:44 19:00 19:48 19:50 Temp 98.1 98.1 Pulse 90 Resp 18 B/P (MAP) 115/72 (86) Pulse Ox 96 97 95 O2 Delivery Nasal Cannula Nasal Cannula Nasal Cannula Nasal Cannula O2 Flow Rate 3.0 3.0 3.0 3.0 01/06/19 01/06/19 01/06/19 01/06/19 20:30 21:00 23:00 23:33 Temp 98.7 98.7 Pulse 100 Resp 18 B/P (MAP) 112/73 (86) Pulse Ox 97 100 95 O2 Delivery Nasal Cannula Nasal Cannula Nasal Cannula O2 Flow Rate 3.0 3.0 3.0 01/07/19 01/07/19 01/07/19 01/07/19 02:24 02:40 02:49 04:13 Temp 98.6 98.6 Pulse 100 Resp 18 B/P (MAP) 136/95 (109) Pulse Ox 95 98 95 O2 Delivery Nasal Cannula Nasal Cannula Nasal Cannula Nasal Cannula O2 Flow Rate 3.0 3.0 3.0 3.0 01/07/19 01/07/19 01/07/19 01/07/19 07:00 07:06 07:20 08:37 Temp 97.8 97.8 Pulse 108 108 Resp 22 B/P (MAP) 164/105 (124) 164/105 Pulse Ox 95 93 O2 Delivery Nasal Cannula Nasal Cannula Nasal Cannula O2 Flow Rate 3.0 3.0 3.0 01/07/19 01/07/19 01/07/19 01/07/19 08:45 08:47 09:39 10:43 Pulse 108 B/P (MAP) 164/105 Pulse Ox 91 O2 Delivery Nasal Cannula Nasal Cannula Nasal Cannula O2 Flow Rate 3.0 3.0 3.0 01/07/19 01/07/19 01/07/19 01/07/19 11:00 12:47 13:28 14:06 Temp 98.5 98.5 Pulse 102 116 Resp 20 B/P (MAP) 141/88 (105) 118/80 (93) Pulse Ox 95 100 O2 Delivery Nasal Cannula Nasal Cannula BiPAP/CPAP O2 Flow Rate 3.0 3.0 01/07/19 14:40 O2 Delivery Nasal Cannula O2 Flow Rate 3.0 Intake and Output 01/06/19 01/06/19 01/07/19 15:00 23:00 07:00 Intake Total 120 ml 120 ml 750 ml Output Total 200 ml Balance 120 ml 120 ml 550 ml RADAMES MÉNDEZ MD Jan 07, 2019 15:44
--- NOTE | 2019-01-07 17:45 | NUR ---
Pt. asleep, not eating at this time. Insulin held, BS 158.
[2019-01-07 19:00] VITALS: BP 120/75
[2019-01-07] MEDS: rOPINIRole 1 MG TABLET. PO SCH (20:26)
[2019-01-07] MEDS ORDERED: TOTAL PARENTERAL NUTRITION IV SCH ×10 (22:00)
[2019-01-07] MEDS ORDERED: AMINO ACID IV SCH ×10 (22:00)
[2019-01-07] MEDS ORDERED: DEXTROSE 70% IV SCH ×10 (22:00)
[2019-01-07] MEDS ORDERED: [UNRECOGNIZED DRUG - OTHER] IV SCH ×10 (22:00)
[2019-01-08 03:00] VITALS: BP 129/77
[2019-01-08] MEDS: IPRATRPIUM/ALBUTEROL 0.5/2.5MG 3 ML NEBU. NEB SCH ×5 (04:29→19:41)
[2019-01-08] MEDS: PANTOPRAZOLE IV PUSH 40 MG VIAL. IVP SCH (05:18)
[2019-01-08 05:44] LABS: CALCIUM 9.1 mg/dL (8.5-10.1); CREATININE 0.9 mg/dL (0.6-1.0); GFR 73.9; MAGNESIUM 2.1 mg/dL (1.8-2.4); PHOSPHORUS 4.3 mg/dL (2.6-4.7); POTASSIUM 4.6 mmol/L (3.5-5.1)
[2019-01-08 05:46] LABS: BASO % 0 % (0-3); EOS # 0.2 x10^3/uL (0.0-0.7); EOS % 1 % (0-3); HEMATOCRIT 25.6 % (36.0-47.0); HEMOGLOBIN 7.9 g/dL (12.0-15.5); LYMPH # 0.9 x10^3/uL (1.0-4.8); LYMPH % 7 % (24-48); MEAN CORPUSCULAR HEMOGLOBIN 24 pg (25-35); MEAN CORPUSCULAR HGB CONC 31 g/dL (31-37); MONO # 0.9 x10^3/uL (0.0-1.1); MONO % 6 % (0-9); NEUT % 86 % (31-73); PLATELET COUNT 358 x10^3/uL (140-400); RED BLOOD COUNT 3.32 x10^6/uL (3.50-5.40); RED CELL DISTRIBUTION WIDTH 24.4 % (11.5-14.5)
[2019-01-08 06:07] LABS: MEAN CORPUSCULAR VOLUME 77 fL (79-100)
[2019-01-08] MEDS: INSULIN LISPRO 300 UNITS/3 ML INSULN.PEN. SQ SCH ×7 (06:20→18:21)
[2019-01-08] MEDS: HYDROmorphone 2 MG/ML VIAL IV PRN ×3 (06:34→21:55)
[2019-01-08] MEDS: ONDANSETRON PF 4 MG/2 ML VIAL. IV PRN (07:20)
--- NOTE | 2019-01-08 07:21 | PDOC ---
PULMONARY PROGRESS NOTES Subjective off BIPAP has sob, cough, some abd pain Vitals Vital Signs Date Time Temp Pulse Resp B/P (MAP) Pulse Ox O2 Delivery O2 Flow Rate FiO2 01/08/19 06:34 20 99 Nasal Cannula 2.5 01/08/19 03:00 97.5 104 129/77 (94) 97.5 ROS: No Nausea, No Chest Pain General: Alert, Mild Distress HEENT: Other (nc at perrl nose throat clear neck +JVD no lad, no thyromegaly ) Lungs: Wheezing (resolved) Cardiovascular: S1, S2 Abdomen: Soft, Other (distended) Neuro Exam: Alert, Oriented Extremities: No Edema Skin: Warm Labs Laboratory Tests Test 01/06/19 11:56 01/06/19 18:07 01/07/19 00:05 01/07/19 06:05 Glucose (Fingerstick) 370 mg/dL (70-99) 237 mg/dL (70-99) 242 mg/dL (70-99) White Blood Count 13.7 x10^3/uL (4.0-11.0) Red Blood Count 3.15 x10^6/uL (3.50-5.40) Hemoglobin 8.3 g/dL (12.0-15.5) Hematocrit 26.3 % (36.0-47.0) Mean Corpuscular Volume 84 fL (79-100) Mean Corpuscular Hemoglobin 26 pg (25-35) Mean Corpuscular Hemoglobin Concent 31 g/dL (31-37) Red Cell Distribution Width 25.1 % (11.5-14.5) Platelet Count 355 x10^3/uL (140-400) Neutrophils (%) (Auto) 86 % (31-73) Lymphocytes (%) (Auto) 7 % (24-48) Monocytes (%) (Auto) 5 % (0-9) Eosinophils (%) (Auto) 1 % (0-3) Basophils (%) (Auto) 1 % (0-3) Neutrophils # (Auto) 11.8 x10^3uL (1.8-7.7) Lymphocytes # (Auto) 1.0 x10^3/uL (1.0-4.8) Monocytes # (Auto) 0.7 x10^3/uL (0.0-1.1) Eosinophils # (Auto) 0.1 x10^3/uL (0.0-0.7) Basophils # (Auto) 0.1 x10^3/uL (0.0-0.2) Segmented Neutrophils % 87 % (35-66) Lymphocytes % 10 % (24-48) Monocytes % 2 % (0-10) Eosinophils % 1 % (0-5) Platelet Estimate Adequate (ADEQUATE) Hypochromasia Slight Anisocytosis Marked Test 01/07/19 06:35 01/07/19 12:01 01/07/19 13:39 01/07/19 17:00 Glucose (Fingerstick) 322 mg/dL (70-99) 419 mg/dL (70-99) 255 mg/dL (70-99) 153 mg/dL (70-99) Test 01/08/19 00:24 01/08/19 05:00 01/08/19 05:58 Glucose (Fingerstick) 134 mg/dL (70-99) 227 mg/dL (70-99) White Blood Count 14.0 x10^3/uL (4.0-11.0) Red Blood Count 3.32 x10^6/uL (3.50-5.40) Hemoglobin 7.9 g/dL (12.0-15.5) Hematocrit 25.6 % (36.0-47.0) Mean Corpuscular Volume 77 fL (79-100) Mean Corpuscular Hemoglobin 24 pg (25-35) Mean Corpuscular Hemoglobin Concent 31 g/dL (31-37) Red Cell Distribution Width 24.4 % (11.5-14.5) Platelet Count 358 x10^3/uL (140-400) Neutrophils (%) (Auto) 86 % (31-73) Lymphocytes (%) (Auto) 7 % (24-48) Monocytes (%) (Auto) 6 % (0-9) Eosinophils (%) (Auto) 1 % (0-3) Basophils (%) (Auto) 0 % (0-3) Neutrophils # (Auto) 12.0 x10^3uL (1.8-7.7) Lymphocytes # (Auto) 0.9 x10^3/uL (1.0-4.8) Monocytes # (Auto) 0.9 x10^3/uL (0.0-1.1) Eosinophils # (Auto) 0.2 x10^3/uL (0.0-0.7) Basophils # (Auto) 0.0 x10^3/uL (0.0-0.2) Sodium Level 146 mmol/L (136-145) Potassium Level 4.6 mmol/L (3.5-5.1) Chloride Level 108 mmol/L (98-107) Carbon Dioxide Level 28 mmol/L (21-32) Anion Gap 10 (6-14) Blood Urea Nitrogen 36 mg/dL (7-20) Creatinine 0.9 mg/dL (0.6-1.0) Estimated GFR (Cockcroft-Gault) 73.9 Glucose Level 240 mg/dL (70-99) Calcium Level 9.1 mg/dL (8.5-10.1) Phosphorus Level 4.3 mg/dL (2.6-4.7) Magnesium Level 2.1 mg/dL (1.8-2.4) Laboratory Tests Test 01/07/19 12:01 01/07/19 13:39 01/07/19 17:00 01/08/19 00:24 Glucose (Fingerstick) 419 mg/dL (70-99) 255 mg/dL (70-99) 153 mg/dL (70-99) 134 mg/dL (70-99) Test 01/08/19 05:00 01/08/19 05:58 White Blood Count 14.0 x10^3/uL (4.0-11.0) Red Blood Count 3.32 x10^6/uL (3.50-5.40) Hemoglobin 7.9 g/dL (12.0-15.5) Hematocrit 25.6 % (36.0-47.0) Mean Corpuscular Volume 77 fL (79-100) Mean Corpuscular Hemoglobin 24 pg (25-35) Mean Corpuscular Hemoglobin Concent 31 g/dL (31-37) Red Cell Distribution Width 24.4 % (11.5-14.5) Platelet Count 358 x10^3/uL (140-400) Neutrophils (%) (Auto) 86 % (31-73) Lymphocytes (%) (Auto) 7 % (24-48) Monocytes (%) (Auto) 6 % (0-9) Eosinophils (%) (Auto) 1 % (0-3) Basophils (%) (Auto) 0 % (0-3) Neutrophils # (Auto) 12.0 x10^3uL (1.8-7.7) Lymphocytes # (Auto) 0.9 x10^3/uL (1.0-4.8) Monocytes # (Auto) 0.9 x10^3/uL (0.0-1.1) Eosinophils # (Auto) 0.2 x10^3/uL (0.0-0.7) Basophils # (Auto) 0.0 x10^3/uL (0.0-0.2) Sodium Level 146 mmol/L (136-145) Potassium Level 4.6 mmol/L (3.5-5.1) Chloride Level 108 mmol/L (98-107) Carbon Dioxide Level 28 mmol/L (21-32) Anion Gap 10 (6-14) Blood Urea Nitrogen 36 mg/dL (7-20) Creatinine 0.9 mg/dL (0.6-1.0) Estimated GFR (Cockcroft-Gault) 73.9 Glucose Level 240 mg/dL (70-99) Calcium Level 9.1 mg/dL (8.5-10.1) Phosphorus Level 4.3 mg/dL (2.6-4.7) Magnesium Level 2.1 mg/dL (1.8-2.4) Glucose (Fingerstick) 227 mg/dL (70-99) Medications Active Scripts Medications Dose Route/Sig Max Daily Dose Days Date Category Chlorhexidine Gluconate 473 Ml Mouthwash 473 Ml MM BID 7 12/10/18 Rx Vitamin C (Ascorbate Calcium) 500 Mg Tablet 500 Mg PO DAILY 30 11/22/18 Rx Slow Release Iron (Ferrous Sulfate) 250 Mg Tablet.er 250 Mg PO DAILY 30 11/22/18 Rx Protonix (Pantoprazole Sodium) 40 Mg Granpkt.dr 40 Mg PO DAILY 30 11/22/18 Rx Metformin Hcl Er (Metformin Hcl) 500 Mg Tab.er.24h 1 Tab PO DAILY 11/12/16 Reported Namenda (Memantine Hcl) 10 Mg Tablet 1 Tab PO BID 11/12/16 Reported Losartan Potassium 100 Mg Tablet 100 Mg PO DAILY 11/12/16 Reported Spironolactone 25 Mg Tablet 1 Tab PO DAILY 11/12/16 Reported Ventolin Hfa Inhaler (Albuterol Sulfate) 18 Gm Hfa.aer.ad 2 Puff INH Q4HRS 11/11/16 Reported Cymbalta (Duloxetine Hcl) 20 Mg Capsule.dr 90 Mg PO DAILY 01/27/16 Reported Requip (Ropinirole Hcl) 1 Mg Tablet 3 Mg PO DAILY 01/27/16 Reported Amlodipine Besylate 10 Mg Tablet 10 Mg PO DAILY 01/27/16 Reported Comments cxr reviewed, b lat ll effusion/atelectasis/infilt L>R Impression . 1. Acute hypoxic respiratory failure MULTIFACTORIAL EXPECTED POST SURGICAL INTERVENTION 2. Gastrointestinal bleed/cecal ulceration by colonoscopy, status post laparoscopic-assisted right colon resection and hemorrhoidectomy 12/17 3. ileus S/P SECOND SURGERY 12/30 SEE BELOW 4. Underlying suspected severe chronic obstructive pulmonary disease. 5. Abnormal CT chest with focal opacity in the right upper lobe, could be nodule/ATELECTASIS Date: 12/17/2018 Preoperative diagnosis: GI bleed cecal ulceration by colonoscopy with active bleeding hemorrhoids Postoperative diagnosis: Same Procedure: Laparoscopic-assisted right colon resection and hemorrhoidectomy Surgeon: Jan Specimen: Right colon and hemorrhoids Date: 12/30/2018 Preoperative diagnosis: Small bowel obstruction Postoperative diagnosis: Small bowel obstruction at previous anastomotic site Procedure: Exploratory laparotomy with extended right hemicolectomy and primary anastomosis Plan . d/w RN, avoid oversedation PRN BIPAP, setting reviewed. pulmicort NG PER SURGEON IS, the importance of use discussed BD q 4hrs, cxr reviewed 01/02 elevate hob FOLLOW UP CT IN 4 MONTHS, dr hoover D/W DAUGHTER discussed w pt, rn, AMBIKA GONZALEZ MD Jan 08, 2019 07:21
[2019-01-08 07:28] VITALS: BP 122/92
[2019-01-08] MEDS: BUDESONIDE 0.5 MG/2 ML NEBU. NEB SCH ×2 (07:53→19:41)
[2019-01-08] MEDS: FERROUS SULFATE 325 MG TABLET. PO SCH (08:00)
--- NOTE | 2019-01-08 08:00 | NUR ---
This nurse spoke with daughter about POC, update on patient for today, this nurse will continue to monitor.
[2019-01-08] MEDS: SPIRONOLACTONE 25 MG TABLET PO SCH (09:00)
[2019-01-08] MEDS: DOCUSATE SODIUM 100 MG CAPSULE. PO SCH (09:00)
[2019-01-08] MEDS: ASCORBIC ACID 500 MG TABLET PO SCH (09:00)
[2019-01-08] MEDS: MEMANTINE 10 MG TABLET. PO SCH ×2 (09:00→21:00)
[2019-01-08] MEDS: DULoxetine HCL 30 MG CAPSULE.DR PO SCH (09:00)
[2019-01-08] MEDS: amLODIPine BESYLATE 10 MG TABLET PO SCH (09:00)
[2019-01-08] MEDS: LOSARTAN POTASSIUM 50 MG TABLET. PO SCH (09:00)
--- NOTE | 2019-01-08 09:12 | PDOC ---
SURGICAL PROGRESS NOTE Subjective Pt without new c/o, noted by nursing to be distended and emesis Vital Signs Vital Signs Date Time Temp Pulse Resp B/P (MAP) Pulse Ox O2 Delivery O2 Flow Rate FiO2 01/08/19 07:48 96 Nasal Cannula 3.0 01/08/19 07:28 97.8 101 20 122/92 (102) 97.8 I&O Intake and Output 01/08/19 06:59 Intake Total 100 ml Output Total 500 ml Balance -400 ml Intake Oral 100 ml Output Urine Total 500 ml # Voids 1 # Bowel Movements 1 General: Alert, Cooperative, No acute distress Abdomen: Other (distended, NTTP) Labs Laboratory Tests Test 01/06/19 11:56 01/06/19 18:07 01/07/19 00:05 01/07/19 06:05 Glucose (Fingerstick) 370 mg/dL (70-99) 237 mg/dL (70-99) 242 mg/dL (70-99) White Blood Count 13.7 x10^3/uL (4.0-11.0) Red Blood Count 3.15 x10^6/uL (3.50-5.40) Hemoglobin 8.3 g/dL (12.0-15.5) Hematocrit 26.3 % (36.0-47.0) Mean Corpuscular Volume 84 fL (79-100) Mean Corpuscular Hemoglobin 26 pg (25-35) Mean Corpuscular Hemoglobin Concent 31 g/dL (31-37) Red Cell Distribution Width 25.1 % (11.5-14.5) Platelet Count 355 x10^3/uL (140-400) Neutrophils (%) (Auto) 86 % (31-73) Lymphocytes (%) (Auto) 7 % (24-48) Monocytes (%) (Auto) 5 % (0-9) Eosinophils (%) (Auto) 1 % (0-3) Basophils (%) (Auto) 1 % (0-3) Neutrophils # (Auto) 11.8 x10^3uL (1.8-7.7) Lymphocytes # (Auto) 1.0 x10^3/uL (1.0-4.8) Monocytes # (Auto) 0.7 x10^3/uL (0.0-1.1) Eosinophils # (Auto) 0.1 x10^3/uL (0.0-0.7) Basophils # (Auto) 0.1 x10^3/uL (0.0-0.2) Segmented Neutrophils % 87 % (35-66) Lymphocytes % 10 % (24-48) Monocytes % 2 % (0-10) Eosinophils % 1 % (0-5) Platelet Estimate Adequate (ADEQUATE) Hypochromasia Slight Anisocytosis Marked Test 01/07/19 06:35 01/07/19 12:01 01/07/19 13:39 01/07/19 17:00 Glucose (Fingerstick) 322 mg/dL (70-99) 419 mg/dL (70-99) 255 mg/dL (70-99) 153 mg/dL (70-99) Test 01/08/19 00:24 01/08/19 05:00 01/08/19 05:58 Glucose (Fingerstick) 134 mg/dL (70-99) 227 mg/dL (70-99) White Blood Count 14.0 x10^3/uL (4.0-11.0) Red Blood Count 3.32 x10^6/uL (3.50-5.40) Hemoglobin 7.9 g/dL (12.0-15.5) Hematocrit 25.6 % (36.0-47.0) Mean Corpuscular Volume 77 fL (79-100) Mean Corpuscular Hemoglobin 24 pg (25-35) Mean Corpuscular Hemoglobin Concent 31 g/dL (31-37) Red Cell Distribution Width 24.4 % (11.5-14.5) Platelet Count 358 x10^3/uL (140-400) Neutrophils (%) (Auto) 86 % (31-73) Lymphocytes (%) (Auto) 7 % (24-48) Monocytes (%) (Auto) 6 % (0-9) Eosinophils (%) (Auto) 1 % (0-3) Basophils (%) (Auto) 0 % (0-3) Neutrophils # (Auto) 12.0 x10^3uL (1.8-7.7) Lymphocytes # (Auto) 0.9 x10^3/uL (1.0-4.8) Monocytes # (Auto) 0.9 x10^3/uL (0.0-1.1) Eosinophils # (Auto) 0.2 x10^3/uL (0.0-0.7) Basophils # (Auto) 0.0 x10^3/uL (0.0-0.2) Sodium Level 146 mmol/L (136-145) Potassium Level 4.6 mmol/L (3.5-5.1) Chloride Level 108 mmol/L (98-107) Carbon Dioxide Level 28 mmol/L (21-32) Anion Gap 10 (6-14) Blood Urea Nitrogen 36 mg/dL (7-20) Creatinine 0.9 mg/dL (0.6-1.0) Estimated GFR (Cockcroft-Gault) 73.9 Glucose Level 240 mg/dL (70-99) Calcium Level 9.1 mg/dL (8.5-10.1) Phosphorus Level 4.3 mg/dL (2.6-4.7) Magnesium Level 2.1 mg/dL (1.8-2.4) Laboratory Tests Test 01/07/19 12:01 01/07/19 13:39 01/07/19 17:00 01/08/19 00:24 Glucose (Fingerstick) 419 mg/dL (70-99) 255 mg/dL (70-99) 153 mg/dL (70-99) 134 mg/dL (70-99) Test 01/08/19 05:00 01/08/19 05:58 White Blood Count 14.0 x10^3/uL (4.0-11.0) Red Blood Count 3.32 x10^6/uL (3.50-5.40) Hemoglobin 7.9 g/dL (12.0-15.5) Hematocrit 25.6 % (36.0-47.0) Mean Corpuscular Volume 77 fL (79-100) Mean Corpuscular Hemoglobin 24 pg (25-35) Mean Corpuscular Hemoglobin Concent 31 g/dL (31-37) Red Cell Distribution Width 24.4 % (11.5-14.5) Platelet Count 358 x10^3/uL (140-400) Neutrophils (%) (Auto) 86 % (31-73) Lymphocytes (%) (Auto) 7 % (24-48) Monocytes (%) (Auto) 6 % (0-9) Eosinophils (%) (Auto) 1 % (0-3) Basophils (%) (Auto) 0 % (0-3) Neutrophils # (Auto) 12.0 x10^3uL (1.8-7.7) Lymphocytes # (Auto) 0.9 x10^3/uL (1.0-4.8) Monocytes # (Auto) 0.9 x10^3/uL (0.0-1.1) Eosinophils # (Auto) 0.2 x10^3/uL (0.0-0.7) Basophils # (Auto) 0.0 x10^3/uL (0.0-0.2) Sodium Level 146 mmol/L (136-145) Potassium Level 4.6 mmol/L (3.5-5.1) Chloride Level 108 mmol/L (98-107) Carbon Dioxide Level 28 mmol/L (21-32) Anion Gap 10 (6-14) Blood Urea Nitrogen 36 mg/dL (7-20) Creatinine 0.9 mg/dL (0.6-1.0) Estimated GFR (Cockcroft-Gault) 73.9 Glucose Level 240 mg/dL (70-99) Calcium Level 9.1 mg/dL (8.5-10.1) Phosphorus Level 4.3 mg/dL (2.6-4.7) Magnesium Level 2.1 mg/dL (1.8-2.4) Glucose (Fingerstick) 227 mg/dL (70-99) Problem List s/p xlap will place NGT and check CAROLINE CARR MD Jan 08, 2019 09:12
[2019-01-08] MEDS ORDERED: BENZOCAINE ONE 20% MUCOSAL SPRAY. MM (09:30)
--- NOTE | 2019-01-08 09:55 | NUR ---
NG tube was inserted with no complaints of pain, family at bedside, KUB ordered stat to check placement. This nurse will continue to monitor.
[2019-01-08] MEDS: INSULIN GLARGINE 300 UNITS/3 ML INSULN.PEN. SQ SCH ×2 (10:00→15:01)
--- NOTE | 2019-01-08 10:43 | PDOC ---
Infectious Disease Note Subjective Subjective + abdominal distension + small BM yesterday TPN O2 No F/C/S/SOA ROS ROS per HPI Vital Sign Vital Signs Vital Signs Date Time Temp Pulse Resp B/P (MAP) Pulse Ox O2 Delivery O2 Flow Rate FiO2 01/08/19 07:48 96 Nasal Cannula 3.0 01/08/19 07:28 97.8 101 20 122/92 (102) 97.8 Physical Exam PHYSICAL EXAM GENERAL: Propped up in bed, alert, NAD HEENT: Oral cavity pink, dry NECK: Supple LUNGS: Diminished aeration bases HEART: S1, S2 ABDOMEN: Distended, NT to light palpation. Incision well-approx, + [place] EXTREMITIES: LLE 1+ edema. no cyanosis SKIN: No rash. NEUROLOGIC: Alert, responding appropriately RUE-PICC (12/23) clean Labs Lab Laboratory Tests Test 01/07/19 12:01 01/07/19 13:39 01/07/19 17:00 01/08/19 00:24 Glucose (Fingerstick) 419 mg/dL (70-99) 255 mg/dL (70-99) 153 mg/dL (70-99) 134 mg/dL (70-99) Test 01/08/19 05:00 01/08/19 05:58 White Blood Count 14.0 x10^3/uL (4.0-11.0) Red Blood Count 3.32 x10^6/uL (3.50-5.40) Hemoglobin 7.9 g/dL (12.0-15.5) Hematocrit 25.6 % (36.0-47.0) Mean Corpuscular Volume 77 fL (79-100) Mean Corpuscular Hemoglobin 24 pg (25-35) Mean Corpuscular Hemoglobin Concent 31 g/dL (31-37) Red Cell Distribution Width 24.4 % (11.5-14.5) Platelet Count 358 x10^3/uL (140-400) Neutrophils (%) (Auto) 86 % (31-73) Lymphocytes (%) (Auto) 7 % (24-48) Monocytes (%) (Auto) 6 % (0-9) Eosinophils (%) (Auto) 1 % (0-3) Basophils (%) (Auto) 0 % (0-3) Neutrophils # (Auto) 12.0 x10^3uL (1.8-7.7) Lymphocytes # (Auto) 0.9 x10^3/uL (1.0-4.8) Monocytes # (Auto) 0.9 x10^3/uL (0.0-1.1) Eosinophils # (Auto) 0.2 x10^3/uL (0.0-0.7) Basophils # (Auto) 0.0 x10^3/uL (0.0-0.2) Sodium Level 146 mmol/L (136-145) Potassium Level 4.6 mmol/L (3.5-5.1) Chloride Level 108 mmol/L (98-107) Carbon Dioxide Level 28 mmol/L (21-32) Anion Gap 10 (6-14) Blood Urea Nitrogen 36 mg/dL (7-20) Creatinine 0.9 mg/dL (0.6-1.0) Estimated GFR (Cockcroft-Gault) 73.9 Glucose Level 240 mg/dL (70-99) Calcium Level 9.1 mg/dL (8.5-10.1) Phosphorus Level 4.3 mg/dL (2.6-4.7) Magnesium Level 2.1 mg/dL (1.8-2.4) Glucose (Fingerstick) 227 mg/dL (70-99) CXR 01/07. 1. Unchanged hazy left basilar opacity suggesting pleural fluid and/or atelectasis. 2. The mild right basilar opacity has partially cleared. Micro 01/01. BLOOD CULTURE Preliminary NO GROWTH AFTER 1 DAY 12/21/18 Blood Culture - Preliminary, Resulted NO GROWTH AFTER 4 DAYS Objective Assessment Small bowel obstruction at previous anastomotic site. s/p exploratory laparotomy with extended right hemicolectomy and primary anastomosis, 12/30. Leukocytosis S/P laparoscopic-assisted right colon resection and hemorrhoidectomy on 2018 for bleeding cecal ulcer and hemorrhoids; path negative for malignancy . Left pleural effusion with left basilar atelectasis or infiltrate. cxr 01/02 shows improvement COPD Pneumonia sputum c/s nonrevealing, 12/25 - yeast Ileus - more distended today but + BS Allergies to PCN Plan Plan of Care Off abx Monitor labs/temp maintain aspiration precautions cont supportive care NGT placed D/w RN D/w daughter Hope WBC will decrease with decompression will monitor Attending Co-Sign Attending Co-Sign The patient was seen and interviewed as well as examined at the bedside. The chart was reviewed. The case was discussed. Agree with the plan of care. HERSON PARSON APRN Jan 08, 2019 10:[address] MD Jan 08, 2019 13:20
[2019-01-08] MEDS: CHLORHEXIDINE 0.12% 15 ML MOUTHWASH. MM SCH ×2 (11:05→21:54)
[2019-01-08] MEDS: ENOXAPARIN 40 MG/0.4 ML SYRINGE. SQ SCH (11:05)
[2019-01-08 11:09] VITALS: BP 107/70
[2019-01-08] MEDS: TPN PER PHARMACY MC PRN (12:44)
--- NOTE | 2019-01-08 12:46 | NUR ---
Received verbal report from Humberto in radiology, report has been read, "it shows NG tube in the correct place, and no significant change from cxray on 01/07." This nurse will continue to monitor.
--- NOTE | 2019-01-08 12:53 | NUR ---
Pharmacy TPN Dosing Note S: ELLE LATHAM is a 72 year old F Currently receiving Central Continuous TPN started 12/23/18 B:Pertinent PMH: SBO Height: 5 feet, 7 inches Weight: 85 kg Current diet: npo LABS: Sodium: 146 Potassium: 4.6 Chloride: 108 Calcium: 9.1 Corrected Calcium: 10.78 Magnesium: 2.1 CO2: 28 SCr: 0.9 Glucose: 134-295 Albumin: 1.9 AST: 35 ALT: 44 TPN FORMULA: TPN TYPE: Central Continuous AMINO ACIDS: 85 gm DEXTROSE: 260 gm LIPIDS: 40 gm SODIUM CHLORIDE: 40 mEq POTASSIUM CHLORIDE: 30 mEq POTASSIUM PHOSPHATE: 10 mmol MAGNESIUM: 15 mEq INSULIN: 10 units MULTIPLE VITAMIN: 10 ml TRACE ELEMENTS: MTE5 1 ml TPN PLAN: [place] decreased slightly based on trends. Labs ordered for [place]. R: Change TPN per plan and ordered formula. Will monitor electrolytes, glucose, and tolerance to TPN. Latoya Burns [facility], 01/08/19 [id number]
--- NOTE | 2019-01-08 13:06 | PDOC ---
PROGRESS NOTES Chief Complaint Chief Complaint Anemia, colonic Avms Acute hypoxic respiratory failure, improving Cecal ulceration - s/p rt colon resection and hemorrhoidectomy 12/30 SBO - s/p ex lap, extended rt hemicolectomy, with post op malnutrition VISHNU COPD Sepsis/Leukopenia - meropenem and vanco, ID following ileus History of Present Illness History of Present Illness marked abd distention this AM, NG tube replaced, will back off to NPO, ileus now a some anxiety and tachycardia CXR looks better, some clearning, poss effusion, pulmn following still very weak family at bedside Vitals Vitals Vital Signs Date Time Temp Pulse Resp B/P (MAP) Pulse Ox O2 Delivery O2 Flow Rate FiO2 01/08/19 11:57 Nasal Cannula 3.0 01/08/19 11:09 97.8 98 107/70 (82) 92 97.8 01/08/19 07:28 20 Physical Exam Physical Exam GENERAL: Propped up in bed, alert, NAD HEENT: Oral cavity pink, dry NECK: Supple LUNGS: Diminished aeration bases HEART: S1, S2 ABDOMEN: Distended, NT to light palpation. Incision well-approx, + Justo EXTREMITIES: LLE 1+ edema. no cyanosis SKIN: No rash. NEUROLOGIC: Alert, responding appropriately RUE-PICC (12/23) clean General: Alert, Cooperative, No acute distress Heart: Regular rate, No murmurs Lungs: Wheezing (resolved) Abdomen: Other (distended, NTTP) Extremities: No clubbing, No cyanosis, No edema Skin: No breakdown, No significant lesion Labs LABS Laboratory Tests Test 01/07/19 13:39 01/07/19 17:00 01/08/19 00:24 01/08/19 05:00 Glucose (Fingerstick) 255 mg/dL (70-99) 153 mg/dL (70-99) 134 mg/dL (70-99) White Blood Count 14.0 x10^3/uL (4.0-11.0) Red Blood Count 3.32 x10^6/uL (3.50-5.40) Hemoglobin 7.9 g/dL (12.0-15.5) Hematocrit 25.6 % (36.0-47.0) Mean Corpuscular Volume 77 fL (79-100) Mean Corpuscular Hemoglobin 24 pg (25-35) Mean Corpuscular Hemoglobin Concent 31 g/dL (31-37) Red Cell Distribution Width 24.4 % (11.5-14.5) Platelet Count 358 x10^3/uL (140-400) Neutrophils (%) (Auto) 86 % (31-73) Lymphocytes (%) (Auto) 7 % (24-48) Monocytes (%) (Auto) 6 % (0-9) Eosinophils (%) (Auto) 1 % (0-3) Basophils (%) (Auto) 0 % (0-3) Neutrophils # (Auto) 12.0 x10^3uL (1.8-7.7) Lymphocytes # (Auto) 0.9 x10^3/uL (1.0-4.8) Monocytes # (Auto) 0.9 x10^3/uL (0.0-1.1) Eosinophils # (Auto) 0.2 x10^3/uL (0.0-0.7) Basophils # (Auto) 0.0 x10^3/uL (0.0-0.2) Sodium Level 146 mmol/L (136-145) Potassium Level 4.6 mmol/L (3.5-5.1) Chloride Level 108 mmol/L (98-107) Carbon Dioxide Level 28 mmol/L (21-32) Anion Gap 10 (6-14) Blood Urea Nitrogen 36 mg/dL (7-20) Creatinine 0.9 mg/dL (0.6-1.0) Estimated GFR (Cockcroft-Gault) 73.9 Glucose Level 240 mg/dL (70-99) Calcium Level 9.1 mg/dL (8.5-10.1) Phosphorus Level 4.3 mg/dL (2.6-4.7) Magnesium Level 2.1 mg/dL (1.8-2.4) Test 01/08/19 05:58 01/08/19 12:02 Glucose (Fingerstick) 227 mg/dL (70-99) 295 mg/dL (70-99) Comment Review of Relevant I have reviewed the following items abdifatah (where applicable) has been applied. Labs Laboratory Tests Test 01/06/19 18:07 01/07/19 00:05 01/07/19 06:05 01/07/19 06:35 Glucose (Fingerstick) 237 mg/dL (70-99) 242 mg/dL (70-99) 322 mg/dL (70-99) White Blood Count 13.7 x10^3/uL (4.0-11.0) Red Blood Count 3.15 x10^6/uL (3.50-5.40) Hemoglobin 8.3 g/dL (12.0-15.5) Hematocrit 26.3 % (36.0-47.0) Mean Corpuscular Volume 84 fL (79-100) Mean Corpuscular Hemoglobin 26 pg (25-35) Mean Corpuscular Hemoglobin Concent 31 g/dL (31-37) Red Cell Distribution Width 25.1 % (11.5-14.5) Platelet Count 355 x10^3/uL (140-400) Neutrophils (%) (Auto) 86 % (31-73) Lymphocytes (%) (Auto) 7 % (24-48) Monocytes (%) (Auto) 5 % (0-9) Eosinophils (%) (Auto) 1 % (0-3) Basophils (%) (Auto) 1 % (0-3) Neutrophils # (Auto) 11.8 x10^3uL (1.8-7.7) Lymphocytes # (Auto) 1.0 x10^3/uL (1.0-4.8) Monocytes # (Auto) 0.7 x10^3/uL (0.0-1.1) Eosinophils # (Auto) 0.1 x10^3/uL (0.0-0.7) Basophils # (Auto) 0.1 x10^3/uL (0.0-0.2) Segmented Neutrophils % 87 % (35-66) Lymphocytes % 10 % (24-48) Monocytes % 2 % (0-10) Eosinophils % 1 % (0-5) Platelet Estimate Adequate (ADEQUATE) Hypochromasia Slight Anisocytosis Marked Test 01/07/19 12:01 01/07/19 13:39 01/07/19 17:00 01/08/19 00:24 Glucose (Fingerstick) 419 mg/dL (70-99) 255 mg/dL (70-99) 153 mg/dL (70-99) 134 mg/dL (70-99) Test 01/08/19 05:00 01/08/19 05:58 01/08/19 12:02 White Blood Count 14.0 x10^3/uL (4.0-11.0) Red Blood Count 3.32 x10^6/uL (3.50-5.40) Hemoglobin 7.9 g/dL (12.0-15.5) Hematocrit 25.6 % (36.0-47.0) Mean Corpuscular Volume 77 fL (79-100) Mean Corpuscular Hemoglobin 24 pg (25-35) Mean Corpuscular Hemoglobin Concent 31 g/dL (31-37) Red Cell Distribution Width 24.4 % (11.5-14.5) Platelet Count 358 x10^3/uL (140-400) Neutrophils (%) (Auto) 86 % (31-73) Lymphocytes (%) (Auto) 7 % (24-48) Monocytes (%) (Auto) 6 % (0-9) Eosinophils (%) (Auto) 1 % (0-3) Basophils (%) (Auto) 0 % (0-3) Neutrophils # (Auto) 12.0 x10^3uL (1.8-7.7) Lymphocytes # (Auto) 0.9 x10^3/uL (1.0-4.8) Monocytes # (Auto) 0.9 x10^3/uL (0.0-1.1) Eosinophils # (Auto) 0.2 x10^3/uL (0.0-0.7) Basophils # (Auto) 0.0 x10^3/uL (0.0-0.2) Sodium Level 146 mmol/L (136-145) Potassium Level 4.6 mmol/L (3.5-5.1) Chloride Level 108 mmol/L (98-107) Carbon Dioxide Level 28 mmol/L (21-32) Anion Gap 10 (6-14) Blood Urea Nitrogen 36 mg/dL (7-20) Creatinine 0.9 mg/dL (0.6-1.0) Estimated GFR (Cockcroft-Gault) 73.9 Glucose Level 240 mg/dL (70-99) Calcium Level 9.1 mg/dL (8.5-10.1) Phosphorus Level 4.3 mg/dL (2.6-4.7) Magnesium Level 2.1 mg/dL (1.8-2.4) Glucose (Fingerstick) 227 mg/dL (70-99) 295 mg/dL (70-99) Laboratory Tests Test 01/07/19 13:39 01/07/19 17:00 01/08/19 00:24 01/08/19 05:00 Glucose (Fingerstick) 255 mg/dL (70-99) 153 mg/dL (70-99) 134 mg/dL (70-99) White Blood Count 14.0 x10^3/uL (4.0-11.0) Red Blood Count 3.32 x10^6/uL (3.50-5.40) Hemoglobin 7.9 g/dL (12.0-15.5) Hematocrit 25.6 % (36.0-47.0) Mean Corpuscular Volume 77 fL (79-100) Mean Corpuscular Hemoglobin 24 pg (25-35) Mean Corpuscular Hemoglobin Concent 31 g/dL (31-37) Red Cell Distribution Width 24.4 % (11.5-14.5) Platelet Count 358 x10^3/uL (140-400) Neutrophils (%) (Auto) 86 % (31-73) Lymphocytes (%) (Auto) 7 % (24-48) Monocytes (%) (Auto) 6 % (0-9) Eosinophils (%) (Auto) 1 % (0-3) Basophils (%) (Auto) 0 % (0-3) Neutrophils # (Auto) 12.0 x10^3uL (1.8-7.7) Lymphocytes # (Auto) 0.9 x10^3/uL (1.0-4.8) Monocytes # (Auto) 0.9 x10^3/uL (0.0-1.1) Eosinophils # (Auto) 0.2 x10^3/uL (0.0-0.7) Basophils # (Auto) 0.0 x10^3/uL (0.0-0.2) Sodium Level 146 mmol/L (136-145) Potassium Level 4.6 mmol/L (3.5-5.1) Chloride Level 108 mmol/L (98-107) Carbon Dioxide Level 28 mmol/L (21-32) Anion Gap 10 (6-14) Blood Urea Nitrogen 36 mg/dL (7-20) Creatinine 0.9 mg/dL (0.6-1.0) Estimated GFR (Cockcroft-Gault) 73.9 Glucose Level 240 mg/dL (70-99) Calcium Level 9.1 mg/dL (8.5-10.1) Phosphorus Level 4.3 mg/dL (2.6-4.7) Magnesium Level 2.1 mg/dL (1.8-2.4) Test 01/08/19 05:58 01/08/19 12:02 Glucose (Fingerstick) 227 mg/dL (70-99) 295 mg/dL (70-99) Microbiology 01/01/19 Blood Culture - Final, Complete NO GROWTH AFTER 5 DAYS 12/25/18 - Final, Complete 12/25/18 - Final, Complete 12/25/18 - Final, Complete 12/25/18 - Final, Complete 12/25/18 Gram Stain Evaluation - Final, Complete 12/25/18 Sputum Culture - Final, Complete 12/25/18 Sputum Result 1 - Final, Complete Medications Current Medications Sodium Chloride 1,000 ml @ 1,000 mls/hr 1X ONCE IV Last administered on at 13:52; Start 12/14/18 at 13:30; Stop 12/14/18 at 14:29; Status DC Amlodipine Besylate (Norvasc) 10 mg DAILY PO Last administered on 01/07/19at 08: 45; Start 12/14/18 at 17:00 Chlorhexidine Gluconate (Peridex) 15 ml BID MM Last administered on 01/08/19at 11:05; Start 12/14/18 at 21:00 Non-Formulary Medication (Albuterol Sulfate (Ventolin Hfa Inhaler)) 2 puff Q4HRS INH ; Start 12/14/18 at 20:00; Status UNV Ascorbic Acid (Vitamin C) 500 mg DAILY PO Last administered on 12/22/18at 10:30; Start 12/14/18 at 17:00 Duloxetine HCl (Cymbalta) 90 mg DAILY PO Last administered on 01/07/19at 08:48; Start 12/14/18 at 17:00 Ferrous Sulfate (Feosol) 325 mg DAILYWBKFT PO Last administered on 12/22/18at 10: 30; Start 12/14/18 at 17:00 Losartan Potassium (Cozaar) 100 mg DAILY PO Last administered on 12/22/18 10:29 ; Start 12/14/18 at 17:00 Memantine (Namenda) 10 mg BID PO Last administered on 01/07/19 08:45; Start at 21:00 Pantoprazole Sodium (Protonix) 40 mg DAILYAC PO Last administered on 12/22/18 05:28; Start 12/14/18 at 17:00; Stop 12/24/18 at 09:25; Status DC Ropinirole HCl (Requip) 3 mg QHS PO Last administered on 01/07/19 20:26; Start 12/14/18 at 21:00 Spironolactone (Aldactone) 25 mg DAILY PO Last administered on 01/07/19 08:45 ; Start 12/14/18 at 17:00 Albuterol Sulfate (Ventolin Neb Soln) 2.5 mg Q4HRS NEB Last administered on 06:52; Start 12/14/18 at 20:00; Stop 01/02/19 at 07:24; Status DC Sodium Chloride 1,000 ml @ 80 mls/hr [id number] IV Last administered on 12/23/18at 15:25; Start 12/14/18 at 17:15; Stop 12/23/18 at 21:59; Status DC Acetaminophen (Tylenol) 650 mg PRN Q6HRS PRN PO Pain Last administered on 21:27; Start 12/15/18 at 04:45; Stop 12/26/18 at 21:07; Status DC Polyethylene Glycol (miraLAX Powder BULK BOTTLE) 238 gm 1X ONCE PO Last administered on 12/15/18at 12:48; Start 12/15/18 at 12:00; Stop 12/15/18 at 12:01 ; Status DC Ondansetron HCl (Zofran) 4 mg PRN Q6HRS PRN IV NAUSEA/VOMITING; Start 12/16/18 at 07:00; Stop 12/17/18 at 06:59; Status DC Fentanyl Citrate (Fentanyl 2ml Vial) 25 mcg PRN Q5MIN PRN IV MILD PAIN; Start 12/16/18 at 07:00; Stop 12/16/18 at 16:33; Status DC Fentanyl Citrate (Fentanyl 2ml Vial) 50 mcg PRN Q5MIN PRN IV MODERATE TO SEVERE PAIN; Start 12/16/18 at 07:00; Stop 12/16/18 at 16:33; Status DC Morphine Sulfate (Morphine Sulfate) 1 mg PRN Q10MIN PRN IV SEVERE PAIN; Start 12/16/18 at 07:00; Stop 12/17/18 at 06:59; Status DC Ringer's Solution 1,000 ml @ 30 mls/hr Q24H IV Last administered on 12/16/18at 13:00; Start 12/16/18 at 07:00; Stop 12/16/18 at 18:59; Status DC Lidocaine HCl (Xylocaine-Mpf 1% 2ml Vial) 2 ml PRN 1X PRN ID IV START; Start at 07:00; Stop 12/17/18 at 06:59; Status DC Hydromorphone HCl (Dilaudid) 0.5 mg PRN Q10MIN PRN IV SEV PAIN, Second choice; Start 12/16/18 at 07:00; Stop 12/17/18 at 06:59; Status DC Prochlorperazine Edisylate (Compazine) 5 mg PACU PRN PRN IV NAUSEA, MRX1; Start 12/16/18 at 07:00; Stop 12/17/18 at 06:59; Status DC Midazolam HCl (Versed) 2 mg PRN 1X PRN IV PRIOR TO PROCEDURE; Start 12/16/18 at 07:15; Stop 12/17/18 at 07:14; Status DC Fentanyl Citrate (Fentanyl 2ml Vial) 25 mcg PRN Q5MIN PRN IV X 2 DOSES FOR PAIN ; Start 12/16/18 at 07:15; Stop 12/16/18 at 16:33; Status DC Fentanyl Citrate (Fentanyl 2ml Vial) 50 mcg PRN Q5MIN PRN IV X 2 DOSES FOR PAIN ; Start 12/16/18 at 07:15; Stop 12/16/18 at 16:34; Status DC Ringer's Solution 1,000 ml @ 125 mls/hr Q8H IV ; Start 12/16/18 at 07:13; Stop 12/16/18 at 19:12; Status DC Lidocaine HCl (Xylocaine-Mpf 1% 2ml Vial) 2 ml 1X PRN PRN ID IV START; Start at 07:15; Stop 12/17/18 at 07:14; Status DC Propofol 40 ml @ As Directed STK-MED ONCE IV ; Start 12/16/18 at 13:58; Stop at 14:00; Status DC Prochlorperazine Edisylate (Compazine) 5 mg PACU PRN PRN IV NAUSEA, MRX1; Start 12/17/18 at 07:00; Stop 12/18/18 at 06:59; Status DC Hydromorphone HCl (Dilaudid) 0.5 mg PRN Q10MIN PRN IV SEV PAIN, Second choice; Start 12/17/18 at 07:00; Stop 12/18/18 at 06:59; Status DC Lidocaine HCl (Xylocaine-Mpf 1% 2ml Vial) 2 ml PRN 1X PRN ID IV START; Start at 07:00; Stop 12/18/18 at 06:59; Status DC Ringer's Solution 1,000 ml @ 30 mls/hr Q24H IV Last administered on 12/17/18at 10:34; Start 12/17/18 at 07:00; Stop 12/17/18 at 18:59; Status DC Morphine Sulfate (Morphine Sulfate) 1 mg PRN Q10MIN PRN IV SEVERE PAIN; Start 12/17/18 at 07:00; Stop 12/18/18 at 06:59; Status DC Fentanyl Citrate (Fentanyl 2ml Vial) 50 mcg PRN Q5MIN PRN IV MODERATE TO SEVERE PAIN Last administered on 12/17/18at 11:13; Start 12/17/18 at 07:00; Stop at 06:59; Status DC Fentanyl Citrate (Fentanyl 2ml Vial) 25 mcg PRN Q5MIN PRN IV MILD PAIN; Start 12/17/18 at 07:00; Stop 12/18/18 at 06:59; Status DC Ondansetron HCl (Zofran) 4 mg PRN Q6HRS PRN IV NAUSEA/VOMITING; Start 12/17/18 at 07:00; Stop 12/18/18 at 06:59; Status DC Propofol 20 ml @ As Directed STK-MED ONCE IV ; Start 12/17/18 at 07:21; Stop 12/17 at 07:23; Status DC Albuterol Sulfate (Ventolin Neb Soln) 2.5 mg 1X ONCE NEB ; Start 12/17/18 at 07: 30; Stop 12/17/18 at 07:31; Status DC Lidocaine HCl (Lidocaine Pf 2% Vial) 5 ml STK-MED ONCE .ROUTE ; Start 12/17/18 at 07:21; Stop 12/17/18 at 07:23; Status DC Succinylcholine Chloride (Anectine) 200 mg STK-MED ONCE .ROUTE ; Start 12/17/18 at 07:21; Stop 12/17/18 at 07:23; Status DC Rocuronium [place] (Zemuron) 50 mg STK-MED ONCE .ROUTE ; Start 12/17/18 at 07:21 ; Stop 12/17/18 at 07:23; Status DC Fentanyl Citrate (Fentanyl 2ml Vial) 100 mcg STK-MED ONCE .ROUTE ; Start at 07:21; Stop 12/17/18 at 07:24; Status DC Cefazolin Sodium/ Dextrose 50 ml @ 100 mls/hr 1X ONCE IV Last administered on 12/17/18at 08:07; Start 12/17/18 at 07:45; Stop 12/17/18 at 08:18; Status DC Bupivacaine HCl/ Epinephrine Bitart (Sensorcain-Mpf Epi 0.5%-[id number]) 30 ml STK -MED ONCE .ROUTE Last administered on 12/17/18at 08:34; Start 12/17/18 at 07:46; Stop 12/17/18 at 07:49; Status DC Neomycin/ Polymyxin/ Bacitracin (Triple Antibiotic Ointment) 1 pkt STK-MED ONCE TP Last administered on 12/17/18at 10:07; Start 12/17/18 at 07:46; Stop 12/17/18 at 07:49; Status DC Neomycin/ Polymyxin/ Bacitracin (Triple Antibiotic Ointment) 1 pkt STK-MED ONCE TP Last administered on 12/17/18at 10:07; Start 12/17/18 at 07:46; Stop 12/17/18 at 07:49; Status DC Neomycin/ Polymyxin/ Bacitracin (Triple Antibiotic Ointment) 1 pkt STK-MED ONCE TP ; Start 12/17/18 at 07:47; Stop 12/17/18 at 07:49; Status DC Dexamethasone Sodium Phosphate (Decadron) 20 mg STK-MED ONCE .ROUTE ; Start 12/17 at 07:54; Stop 12/17/18 at 07:56; Status DC Hydrocortisone Sodium Succinate (Solu-CORTEF) 100 mg STK-MED ONCE .ROUTE ; Start 12/17/18 at 07:54; Stop 12/17/18 at 07:56; Status DC Desflurane (Suprane) 90 ml STK-MED ONCE IH ; Start 12/17/18 at 07:54; Stop at 07:56; Status DC Neostigmine Methylsulfate (Bloxiverz) 10 mg STK-MED ONCE .ROUTE ; Start 12/17/18 at 08:21; Stop 12/17/18 at 08:24; Status DC Glycopyrrolate (Robinul) 1 mg STK-MED ONCE .ROUTE ; Start 12/17/18 at 08:21; Stop 12/17/18 at 08:24; Status DC Phenylephrine HCl (Bogdan-Synephrine Inj) 10 mg STK-MED ONCE .ROUTE ; Start at 08:23; Stop 12/17/18 at 08:26; Status DC Desflurane (Suprane) 60 ml STK-MED ONCE IH ; Start 12/17/18 at 09:23; Stop at 09:26; Status DC Bupivacaine HCl/ Epinephrine Bitart (Sensorcain-Mpf Epi 0.5%-1:[id number]) 30 ml STK -MED ONCE .ROUTE Last administered on 12/17/18at 10:06; Start 12/17/18 at 09:41; Stop 12/17/18 at 09:43; Status DC Morphine Sulfate (Morphine Sulfate) 2 mg PRN Q2HR PRN IV PAIN Last administered on 12/25/18at 09:26; Start 12/17/18 at 10:15; Stop 12/25/18 at 17:54; Status DC Ketorolac Tromethamine (Toradol 15mg Vial) 15 mg Q6HRS IV Last administered on 12/18/18at 05:39; Start 12/17/18 at 12:00; Stop 12/18/18 at 10:00; Status DC Artificial Tears (Artificial Tears) 1 drop PRN Q15MIN PRN OU DRY EYE Last administered on 12/20/18 21:28; Start 12/18/18 at 08:00 Docusate Sodium (Colace) 100 mg DAILY PO Last administered on 01/07/19 08:45; Start 12/18/18 at 10:00 Throat Lozenges (Cepacol Sore Throat Lozenge) 1 kristyn PRN Q2HRS PRN PO SORE THROAT Last administered on 01/05/19 17:30; Start 12/18/18 at 14:00 Enoxaparin Sodium (Lovenox 40mg Syringe) 40 mg Q24H SQ Last administered on 11:05; Start 12/19/18 at 09:00 Ondansetron HCl (Zofran) 4 mg PRN Q6HRS PRN IV NAUSEA/VOMITING Last administered on 01/08/19 07:20; Start 12/19/18 at 11:30 Insulin Human Lispro (HumaLOG) 0-5 UNITS TIDWMEALS SQ Last administered on 12/30 18:23; Start 12/19/18 at 17:00; Stop 12/31/18 at 00:05; Status DC Dextrose (Dextrose 50%-Water Syringe) 12.5 gm PRN Q15MIN PRN IV SEE COMMENTS; Start 12/19/18 at 16:45 Levofloxacin/ Dextrose 100 ml @ 100 mls/hr 1X ONCE IV Last administered on 20:56; Start 12/19/18 at 21:00; Stop 12/19/18 at 21:59; Status DC Cefepime HCl (Maxipime) 2 gm Q12HR IVP Last administered on 12/29/18 10:02; Start 12/21/18 at 10:00; Stop 12/29/18 at 10:37; Status DC Sodium Chloride 1,000 ml @ 125 mls/hr 1X ONCE IV Last administered on 10:43; Start 12/21/18 at 09:45; Stop 12/21/18 at 17:44; Status DC Calcium Carbonate/ Glycine (Tums) 500 mg PRN AFTMEALHC PRN PO INDIGESTION Last administered on 12/21/18 13:10; Start 12/21/18 at 12:15 Lorazepam (Ativan) 1 mg 1X ONCE IV Last administered on 12/21/18 17:50; Start 12/21/18 at 17:30; Stop 12/21/18 at 17:31; Status DC Albuterol Sulfate (Ventolin Neb Soln) 2.5 mg PRN Q2HRS PRN NEB SHORTNESS OF BREATH Last administered on 01/07/19at 12:45; Start 12/21/18 at 17:30 Nicotine (Nicoderm Cq 14mg) 1 patch PRN DAILY PRN TD SMOKING CESSATION Last administered on 12/26/18at 09:59; Start 12/21/18 at 19:30 Lorazepam (Ativan) 1 mg 1X ONCE IV Last administered on 12/21/18at 23:45; Start 12/21/18 at 23:45; Stop 12/21/18 at 23:46; Status DC Lorazepam (Ativan) 1 mg PRN Q4HRS PRN IV ANXIETY / AGITATION Last administered on 12/22/18 11:15; Start 12/21/18 at 23:30; Stop 12/22/18 at 14:42; Status DC Sodium Chloride 1,000 ml @ 250 mls/hr 1X ONCE IV Last administered on at 09:15; Start 12/22/18 at 09:15; Stop 12/22/18 at 13:14; Status DC Lidocaine/Sodium Bicarbonate (Buffered Lidocaine 1%) 3 ml STK-MED ONCE .ROUTE ; Start 12/23/18 at 10:33; Stop 12/23/18 at 10:35; Status DC Lidocaine/Sodium Bicarbonate (Buffered Lidocaine 1%) 3 ml 1X ONCE INJ Last administered on 12/23/18at 11:24; Start 12/23/18 at 11:00; Stop 12/23/18 at 11:10; Status DC Info (Tpn Per Pharmacy) 1 each PRN DAILY PRN MC SEE COMMENTS Last administered on 01/08/19at 12:44; Start 12/23/18 at 14:00 Sodium Chloride 90 meq/Potassium Chloride 50 meq/ Potassium Phosphate 20.4 mmol/ Magnesium Sulfate 18 meq/ Calcium Gluconate 5 meq/ Multivitamins 10 ml/Chromium / Copper/Manganese/ Seleni/Zn 1 ml/ Total Parenteral Nutrition/Amino Acids/ Dextrose/ Fat Emulsion Intravenous 1,512 ml @ 63 mls/hr TPN CONT IV Last administered on 12/23/18at 21:37; Start 12/23/18 at 22:00; Stop 12/24/18 at 21:59; Status DC Alprazolam (Xanax) 0.25 mg PRN BID PRN PO ANXIETY / AGITATION Last administered on 12/25/18at 09:25; Start 12/23/18 at 23:00; Stop 12/25/18 at 17:54; Status DC Lorazepam (Ativan) 1 mg PRN Q4HRS PRN IV ANXIETY / AGITATION Last administered on 12/24/18at 09:21; Start 12/24/18 at 08:45; Stop 12/24/18 at 10:19; Status DC Pantoprazole Sodium (PROTONIX VIAL for IV PUSH) 40 mg DAILYAC IVP Last administered on 01/08/19at 05:18; Start 12/24/18 at 09:30 Lorazepam (Ativan) 0.5 mg PRN Q4HRS PRN IV ANXIETY / AGITATION Last administered on 12/25/18at 04:47; Start 12/24/18 at 10:30; Stop 12/25/18 at 10:22; Status DC Sodium Chloride 45 meq/Sodium Acetate 45 meq/ Potassium Chloride 50 meq/ Potassium Phosphate 20.4 mmol/Magnesium Sulfate 18 meq/ Calcium Gluconate 5 meq / Multivitamins 10 ml/Chromium/ Copper/Manganese/ Seleni/Zn 1 ml/ Total Parenteral Nutrition/Amino Acids/Dextrose/ Fat Emuls... 1,512 ml @ 63 mls/hr TPN CONT IV Last administered on 12/24/18at 21:57; Start 12/24/18 at 22:00; Stop 12/25/18 at 21:59; Status DC Phenyleph/Shark Oil/Min Oil/Petrol (Preparation H) 1 ranjith PRN Q4HRS PRN RC RECTAL PAIN; Start 12/24/18 at 12:45; Stop 12/25/18 at 20:20; Status DC Sodium Chloride 45 meq/Sodium Acetate 45 meq/ Potassium Chloride 50 meq/ Potassium Phosphate 20.4 mmol/Magnesium Sulfate 18 meq/ Calcium Gluconate 5 meq / Multivitamins 10 ml/Chromium/ Copper/Manganese/ Seleni/Zn 1 ml/ Total Parenteral Nutrition/Amino Acids/Dextrose/ Fat Emuls... 1,512 ml @ 63 mls/hr TPN CONT IV Last administered on 12/26/18 00:34; Start 12/25/18 at 22:00; Stop 12/26/18 at 21:59; Status DC Neomycin/ Polymyxin/ Bacitracin (Triple Antibiotic Ointment) 1 pkt PRN TID PRN TP skin around rectum, post op Last administered on 01/05/19 08:07; Start at 14:30 Alprazolam (Xanax) 0.25 mg PRN Q8HRS PRN PO ANXIETY / AGITATION Last administered on 01/07/19 13:01; Start 12/25/18 at 18:00 Morphine Sulfate (Morphine Sulfate) 2 mg PRN Q6HRS PRN IV PAIN Last administered on 12/29/18 21:47; Start 12/25/18 at 18:00; Stop 12/30/18 at 03:17 ; Status DC Guaifenesin (Mucinex) 600 mg BID PO Last administered on 12/26/18 21:26; Start 12/26/18 at 11:00 Guaifenesin (Mucinex) 600 mg BID PO ; Start 12/26/18 at 11:00; Status UNV Guaifenesin/ Codeine Phosphate (Robitussin Ac) 5 ml PRN Q6HRS PRN PO COUGH Last administered on 12/26/18 10:41; Start 12/26/18 at 10:30 Sodium Acetate 90 meq/Potassium Chloride 50 meq/ Potassium Phosphate 13.6 mmol/ Magnesium Sulfate 18 meq/ Calcium Gluconate 5 meq/ Multivitamins 10 ml/Chromium / Copper/Manganese/ Seleni/Zn 1 ml/ Total Parenteral Nutrition/Amino Acids/ Dextrose/ Fat Emulsion Intravenous 1,512 ml @ 63 mls/hr TPN CONT IV Last administered on 12/26/18 21:37; Start 12/26/18 at 22:00; Stop 12/28/18 at 01:28 ; Status DC Benzocaine (Hurricaine One) 1 spray 1X ONCE MM ; Start 12/26/18 at 19:15; Stop 12/26/18 at 19:16; Status DC Acetaminophen (Tylenol) 650 mg PRN Q6HRS PRN PO MILD PAIN / TEMP Last administered on 12/27/18at 04:39; Start 12/26/18 at 21:00 Benzocaine (Hurricaine One) 1 spray 1X ONCE MM Last administered on 12/27/18at 09:00; Start 12/27/18 at 09:15; Stop 12/27/18 at 09:16; Status DC Sodium Acetate 90 meq/Potassium Chloride 50 meq/ Potassium Phosphate 13.6 mmol/ Magnesium Sulfate 15 meq/ Calcium Gluconate 5 meq/ Multivitamins 10 ml/Chromium / Copper/Manganese/ Seleni/Zn 1 ml/ Total Parenteral Nutrition/Amino Acids/ Dextrose/ Fat Emulsion Intravenous 1,512 ml @ 63 mls/hr TPN CONT IV ; Start at 22:00; Stop 12/28/18 at 21:59; Status Cancel Sodium Acetate 90 meq/Potassium Chloride 50 meq/ Potassium Phosphate 13.6 mmol/ Magnesium Sulfate 15 meq/ Calcium Gluconate 5 meq/ Multivitamins 10 ml/Chromium / Copper/Manganese/ Seleni/Zn 1 ml/ Total Parenteral Nutrition/Amino Acids/ Dextrose/ Fat Emulsion Intravenous 1,512 ml @ 63 mls/hr TPN CONT IV ; Start at 22:00; Stop 12/28/18 at 21:59; Status DC Lidocaine/Sodium Bicarbonate (Buffered Lidocaine 1%) 3 ml 1X ONCE INJ ; Start 12/28/18 at 09:00; Stop 12/28/18 at 09:01; Status Cancel Benzocaine (Hurricaine One) 1 spray 1X ONCE MM Last administered on 12/28/18at 09:32; Start 12/28/18 at 09:30; Stop 12/28/18 at 09:33; Status DC Sodium Acetate 90 meq/Potassium Chloride 50 meq/ Potassium Phosphate 13.6 mmol/ Magnesium Sulfate 15 meq/ Calcium Gluconate 5 meq/ Multivitamins 10 ml/Chromium / Copper/Manganese/ Seleni/Zn 1 ml/ Total Parenteral Nutrition/Amino Acids/ Dextrose/ Fat Emulsion Intravenous 1,512 ml @ 63 mls/hr TPN CONT IV Last administered on 12/28/18at 22:06; Start 12/28/18 at 22:00; Stop 12/29/18 at 21:59 ; Status DC Iohexol (Omnipaque 300 Mg/ml) 400 ml 1X ONCE PO Last administered on at 08:15; Start 12/29/18 at 06:45; Stop 12/29/18 at 06:46; Status DC Info (CONTRAST GIVEN -- Rx MONITORING) 1 each PRN DAILY PRN MC SEE COMMENTS; Start 12/29/18 at 06:45; Stop 12/31/18 at 06:44; Status DC Iohexol (Omnipaque 300 Mg/ml) 400 ml 1X ONCE PO ; Start 12/29/18 at 07:00; Stop 12/29/18 at 07:03; Status DC Info (CONTRAST GIVEN -- Rx MONITORING) 1 each PRN DAILY PRN MC SEE COMMENTS; Start 12/29/18 at 07:15; Stop 12/31/18 at 07:14; Status DC Meropenem 500 mg/ Sodium Chloride 50 ml @ 100 mls/hr Q6HRS IV Last administered on 01/07/19at 06:05; Start 12/29/18 at 12:00; Stop 01/07/19 at 08:34 ; Status DC Multi-Ingredient Ointment (Analgesic [place]) 1 ranjith PRN QID PRN TP MUSCLE PAIN Last administered on 12/29/18at 14:40; Start 12/29/18 at 13:00 Sodium Acetate 90 meq/Potassium Chloride 50 meq/ Potassium Phosphate 13.6 mmol/ Magnesium Sulfate 15 meq/ Calcium Gluconate 5 meq/ Multivitamins 10 ml/Chromium / Copper/Manganese/ Seleni/Zn 1 ml/ Total Parenteral Nutrition/Amino Acids/ Dextrose/ Fat Emulsion Intravenous 1,512 ml @ 63 mls/hr TPN CONT IV Last administered on 12/29/18at 21:40; Start 12/29/18 at 22:00; Stop 12/30/18 at 21:59 ; Status DC Morphine Sulfate (Morphine Sulfate) 2 mg PRN Q4HRS PRN IV SEVERE PAIN Last administered on 12/30/18at 19:50; Start 12/30/18 at 03:30; Stop 12/30/18 at 21:33 ; Status DC Propofol 20 ml @ As Directed STK-MED ONCE IV ; Start 12/30/18 at 12:51; Stop at 12:52; Status DC Dexamethasone Sodium Phosphate (Decadron) 20 mg STK-MED ONCE .ROUTE ; Start at 12:51; Stop 12/30/18 at 12:52; Status DC Lidocaine HCl (Lidocaine Pf 2% Vial) 5 ml STK-MED ONCE .ROUTE ; Start 12/30/18 at 12:51; Stop 12/30/18 at 12:52; Status DC Ondansetron HCl (Zofran) 4 mg STK-MED ONCE .ROUTE ; Start 12/30/18 at 12:51; Stop 12/30/18 at 12:52; Status DC Rocuronium [place] (Zemuron) 50 mg STK-MED ONCE .ROUTE ; Start 12/30/18 at 12:51 ; Stop 12/30/18 at 12:52; Status DC Succinylcholine Chloride (Anectine) 200 mg STK-MED ONCE .ROUTE ; Start 12/30/18 at 12:51; Stop 12/30/18 at 12:52; Status DC Fentanyl Citrate (Fentanyl 5ml Vial) 250 mcg STK-MED ONCE .ROUTE ; Start at 13:49; Stop 12/30/18 at 13:50; Status DC Sodium Chloride 90 meq/Potassium Chloride 50 meq/ Potassium Phosphate 13.6 mmol/ Magnesium Sulfate 15 meq/ Multivitamins 10 ml/Chromium/ Copper/Manganese/ Seleni /Zn 1 ml/ Total Parenteral Nutrition/Amino Acids/Dextrose/ Fat Emulsion Intravenous 1,512 ml @ 63 mls/hr TPN CONT IV Last administered on 12/30/18at 23:43; Start 12/30/18 at 22:00; Stop 12/31/18 at 21:59; Status DC Vasopressin (Vasostrict) 20 unit STK-MED ONCE .ROUTE ; Start 12/30/18 at 15:00; Stop 12/30/18 at 15:01; Status DC Sodium Chloride (SODIUM CHLORIDE 20ml) 20 ml STK-MED ONCE IJ ; Start 12/30/18 at 15:01; Stop 12/30/18 at 15:02; Status DC Albumin Human 500 ml @ As Directed STK-MED ONCE IV ; Start 12/30/18 at 15:01; Stop 12/30/18 at 15:02; Status DC Glycopyrrolate (Robinul) 1 mg STK-MED ONCE .ROUTE ; Start 12/30/18 at 15:21; Stop 12/30/18 at 15:22; Status DC Neostigmine Methylsulfate (Bloxiverz) 10 mg STK-MED ONCE .ROUTE ; Start at 15:21; Stop 12/30/18 at 15:22; Status DC Albuterol/ Ipratropium (Duoneb) 3 ml STK-MED ONCE .ROUTE ; Start 12/30/18 at 15: 45; Stop 12/30/18 at 15:46; Status DC Fentanyl Citrate (Fentanyl 2ml Vial) 100 mcg STK-MED ONCE .ROUTE ; Start at 16:56; Stop 12/30/18 at 16:57; Status DC Ondansetron HCl (Zofran) 4 mg PRN Q6HRS PRN IV NAUSEA/VOMITING; Start 12/30/18 at 17:15; Stop 12/30/18 at 21:35; Status DC Fentanyl Citrate (Fentanyl 2ml Vial) 25 mcg PRN Q5MIN PRN IV MILD PAIN Last administered on 12/30/18at 17:15; Start 12/30/18 at 17:15; Stop 12/30/18 at 21:35 ; Status DC Fentanyl Citrate (Fentanyl 2ml Vial) 50 mcg PRN Q5MIN PRN IV MODERATE TO SEVERE PAIN Last administered on 12/30/18at 17:57; Start 12/30/18 at 17:15; Stop 12/30/18 at 21:35; Status DC Morphine Sulfate (Morphine Sulfate) 1 mg PRN Q10MIN PRN IV SEVERE PAIN; Start 12/30/18 at 17:15; Stop 12/31/18 at 17:14; Status DC Ringer's Solution 1,000 ml @ 30 mls/hr Q24H IV Last administered on 12/30/18at 18:09; Start 12/30/18 at 17:10; Stop 12/30/18 at 21:33; Status DC Lidocaine HCl (Xylocaine-Mpf 1% 2ml Vial) 2 ml 1X PRN PRN ID IV START; Start at 17:15; Stop 12/30/18 at 21:35; Status DC Hydromorphone HCl (Dilaudid) 0.5 mg PRN Q10MIN PRN IV SEV PAIN, Second choice; Start 12/30/18 at 17:15; Stop 12/30/18 at 21:35; Status DC Prochlorperazine Edisylate (Compazine) 5 mg PACU PRN PRN IV NAUSEA, MRX1; Start 12/30/18 at 17:15; Stop 12/30/18 at 21:35; Status DC Albumin Human 100 ml @ 100 mls/hr 1X ONCE IV Last administered on 12/30/18at 22:00; Start 12/30/18 at 22:00; Stop 12/30/18 at 22:59; Status DC Ringer's Solution 500 ml @ 500 mls/hr 1X ONCE IV Last administered on at 22:00; Start 12/30/18 at 22:00; Stop 12/30/18 at 22:59; Status DC Ringer's Solution 1,000 ml @ 100 mls/hr Q10H IV Last administered on at 00:58; Start 12/30/18 at 23:00; Stop 01/01/19 at 09:30; Status DC Hydromorphone HCl (Dilaudid) 0.5 mg PRN Q2HR PRN IV MODERATE PAIN Last administered on 01/04/19at 10:08; Start 12/30/18 at 21:30; Stop 01/04/19 at 15:05 ; Status DC Hydromorphone HCl (Dilaudid) 1 mg PRN Q2HR PRN IV SEVERE PAIN Last administered on 01/04/19at 04:51; Start 12/30/18 at 21:30; Stop 01/04/19 at 15:05 ; Status DC Insulin Human Lispro (HumaLOG) 0-5 UNITS Q6HRS SQ Last administered on at 06:42; Start 12/31/18 at 00:30; Stop 01/06/19 at 12:47; Status DC Sodium Chloride 90 meq/Potassium Chloride 30 meq/ Potassium Phosphate 13.6 mmol/ Magnesium Sulfate 15 meq/ Calcium Gluconate 5 meq/ Multivitamins 10 ml/Chromium / Copper/Manganese/ Seleni/Zn 1 ml/ Total Parenteral Nutrition/Amino Acids/ Dextrose/ Fat Emulsion Intravenous 1,512 ml @ 63 mls/hr TPN CONT IV Last administered on 12/31/18at 21:58; Start 12/31/18 at 22:00; Stop 01/01/19 at 21:59 ; Status DC Sodium Chloride 90 meq/Potassium Chloride 30 meq/ Potassium Phosphate 13.6 mmol/ Magnesium Sulfate 15 meq/ Calcium Gluconate 5 meq/ Multivitamins 10 ml/Chromium / Copper/Manganese/ Seleni/Zn 1 ml/ Total Parenteral Nutrition/Amino Acids/ Dextrose/ Fat Emulsion Intravenous 1,512 ml @ 63 mls/hr TPN CONT IV Last administered on 01/01/19at 21:09; Start 01/01/19 at 22:00; Stop 01/02/19 at 21:59 ; Status DC Vancomycin HCl (Vanco Per Pharmacy) 1 each PRN DAILY PRN MC SEE COMMENTS Last administered on 01/03/19at 10:18; Start 01/01/19 at 11:15; Stop 01/03/19 at 11:23 ; Status DC Vancomycin HCl 2 gm/Sodium Chloride 500 ml @ 250 mls/hr ONCE ONCE IV Last administered on 01/01/19at 12:28; Start 01/01/19 at 12:00; Stop 01/01/19 at 13:59 ; Status DC Vancomycin HCl 1.25 gm/Sodium Chloride 250 ml @ 166.667 mls/hr Q24H IV ; Start 01/01/19 at 12:00; Status Cancel Vancomycin HCl (Vancomycin Trough Level) 1 each 1X ONCE MC ; Start 01/03/19 at 11:30; Stop 01/03/19 at 11:31; Status Cancel Vancomycin HCl 1.25 gm/Sodium Chloride 250 ml @ 166.667 mls/hr Q24H IV Last administered on 01/02/19at 13:04; Start 01/02/19 at 12:00; Stop 01/03/19 at 11:23 ; Status DC Albuterol/ Ipratropium (Duoneb) 3 ml 1X ONCE NEB Last administered on at 08:19; Start 01/02/19 at 07:30; Stop 01/02/19 at 07:31; Status DC Albuterol/ Ipratropium (Duoneb) 3 ml Q4HRS NEB Last administered on 01/08/19at 11:57; Start 01/02/19 at 12:00 Furosemide (Lasix) 20 mg 1X ONCE IVP Last administered on 01/02/19at 07:36; Start 01/02/19 at 07:30; Stop 01/02/19 at 07:31; Status DC Sodium Chloride 90 meq/Potassium Chloride 30 meq/ Potassium Phosphate 13.6 mmol/ Magnesium Sulfate 15 meq/ Calcium Gluconate 5 meq/ Multivitamins 10 ml/Chromium / Copper/Manganese/ Seleni/Zn 1 ml/ Total Parenteral Nutrition/Amino Acids/ Dextrose/ Fat Emulsion Intravenous 1,512 ml @ 63 mls/hr TPN CONT IV Last administered on 01/02/19at 21:20; Start 01/02/19 at 22:00; Stop 01/03/19 at 21:59 ; Status DC Sodium Chloride 90 meq/Potassium Chloride 30 meq/ Potassium Phosphate 13.6 mmol/ Magnesium Sulfate 15 meq/ Multivitamins 10 ml/Chromium/ Copper/Manganese/ Seleni /Zn 1 ml/ Insulin Human Regular 10 unit/ Total Parenteral Nutrition/Amino Acids/ Dextrose/ Fat Emulsion Intravenous 1,512 ml @ 63 mls/hr TPN CONT IV Last administered on 01/03/19at 22:07; Start 01/03/19 at 22:00; Stop 01/04/19 at 21:59 ; Status DC Sodium Chloride 90 meq/Potassium Chloride 30 meq/ Potassium Phosphate 13.6 mmol/ Magnesium Sulfate 15 meq/ Multivitamins 10 ml/Chromium/ Copper/Manganese/ Seleni /Zn 1 ml/ Insulin Human Regular 10 unit/ Total Parenteral Nutrition/Amino Acids/ Dextrose/ Fat Emulsion Intravenous 1,512 ml @ 63 mls/hr TPN CONT IV Last administered on 01/04/19at 22:11; Start 01/04/19 at 22:00; Stop 01/05/19 at 21:59 ; Status DC Hydromorphone HCl (Dilaudid) 0.5 mg PRN Q6HRS PRN IV MODERATE PAIN Last administered on 01/08/19at 06:34; Start 01/04/19 at 15:15 Hydromorphone HCl (Dilaudid) 1 mg PRN Q6HRS PRN IV SEVERE PAIN Last administered on 01/05/19at 02:18; Start 01/04/19 at 15:15 Dextrose (Dextrose 50%-Water Syringe) 25 gm STK-MED ONCE IV ; Start 01/04/19 at 08:50; Stop 01/05/19 at 08:26; Status DC Sodium Chloride 90 meq/Potassium Chloride 30 meq/ Potassium Phosphate 13.6 mmol/ Magnesium Sulfate 15 meq/ Multivitamins 10 ml/Chromium/ Copper/Manganese/ Seleni /Zn 1 ml/ Insulin Human Regular 10 unit/ Total Parenteral Nutrition/Amino Acids/ Dextrose/ Fat Emulsion Intravenous 1,512 ml @ 63 mls/hr TPN CONT IV Last administered on 01/05/19at 21:52; Start 01/05/19 at 22:00; Stop 01/06/19 at 21:59 ; Status DC Budesonide (Pulmicort) 0.5 mg RTBID NEB Last administered on 01/08/19at 07:53; Start 01/05/19 at 12:00 Insulin Glargine (Lantus) 12 units DAILY10 SQ Last administered on 01/07/19at 08 :55; Start 01/06/19 at 13:30 Sodium Chloride 40 meq/Potassium Chloride 30 meq/ Potassium Phosphate 13.6 mmol/ Magnesium Sulfate 15 meq/ Multivitamins 10 ml/Chromium/ Copper/Manganese/ Seleni /Zn 1 ml/ Insulin Human Regular 10 unit/ Total Parenteral Nutrition/Amino Acids/ Dextrose/ Fat Emulsion Intravenous 1,512 ml @ 63 mls/hr TPN CONT IV Last administered on 01/07/19at 00:36; Start 01/06/19 at 22:00; Stop 01/07/19 at 21:59 ; Status DC Insulin Human Lispro (HumaLOG) 12 units 1X ONCE SQ Last administered on at 14:18; Start 01/06/19 at 13:00; Stop 01/06/19 at 13:01; Status DC Insulin Human Lispro (HumaLOG) 0-9 UNITS Q6HRS SQ Last administered on at 12:58; Start 01/06/19 at 18:00 Insulin Human Lispro (HumaLOG) 3 units 1X ONCE SQ Last administered on at 00:33; Start 01/07/19 at 00:30; Stop 01/07/19 at 00:31; Status DC Insulin Human Lispro (HumaLOG) 20 units 1X ONCE SQ Last administered on at 12:22; Start 01/07/19 at 12:15; Stop 01/07/19 at 12:16; Status DC Insulin Human Lispro (HumaLOG) 10 units TIDAC SQ ; Start 01/07/19 at 16:30 Sodium Chloride 40 meq/Potassium Chloride 30 meq/ Potassium Phosphate 13.6 mmol/ Magnesium Sulfate 15 meq/ Multivitamins 10 ml/Chromium/ Copper/Manganese/ Seleni /Zn 1 ml/ Insulin Human Regular 10 unit/ Total Parenteral Nutrition/Amino Acids/ Dextrose/ Fat Emulsion Intravenous 1,512 ml @ 63 mls/hr TPN CONT IV Last administered on 01/07/19at 21:45; Start 01/07/19 at 22:00; Stop 01/08/19 at 21:59 Insulin Human Lispro (HumaLOG) 10 units 1X ONCE SQ Last administered on at 14:19; Start 01/07/19 at 14:00; Stop 01/07/19 at 14:01; Status DC Benzocaine (Hurricaine One) 1 spray 1X ONCE MM Last administered on 01/08/19at 09:44; Start 01/08/19 at 09:30; Stop 01/08/19 at 09:31; Status DC Lorazepam (Ativan) 0.5 mg PRN Q4HRS PRN IV ANXIETY / AGITATION Last administered on 01/08/19at 11:05; Start 01/08/19 at 10:45 Sodium Chloride 40 meq/Potassium Chloride 30 meq/ Potassium Phosphate 10 mmol/ Magnesium Sulfate 15 meq/ Multivitamins 10 ml/Chromium/ Copper/Manganese/ Seleni /Zn 1 ml/ Insulin Human Regular 10 unit/ Total Parenteral Nutrition/Amino Acids/ Dextrose/ Fat Emulsion Intravenous 1,512 ml @ 63 mls/hr TPN CONT IV ; Start at 22:00; Stop 01/09/19 at 21:59 Active Scripts Active Chlorhexidine Gluconate 473 Ml Mouthwash 473 Ml MM BID 7 Days Vitamin C (Ascorbate Calcium) 500 Mg Tablet 500 Mg PO DAILY 30 Days Slow Release Iron (Ferrous Sulfate) 250 Mg Tablet.er 250 Mg PO DAILY 30 Days Protonix (Pantoprazole Sodium) 40 Mg Granmanish. 40 Mg PO DAILY 30 Days Reported Alprazolam 0.25 Mg Tablet 0.25 Mg PO DAILY Metformin Hcl Er (Metformin Hcl) 500 Mg Tab.er.24h 1 Tab PO DAILY Namenda (Memantine Hcl) 10 Mg Tablet 1 Tab PO BID Losartan Potassium 100 Mg Tablet 100 Mg PO DAILY Spironolactone 25 Mg Tablet 1 Tab PO DAILY Ventolin Hfa Inhaler (Albuterol Sulfate) 18 Gm Hfa.aer.ad 2 Puff INH Q4HRS Cymbalta (Duloxetine Hcl) 20 Mg Capsule. 90 Mg PO DAILY Requip (Ropinirole Hcl) 1 Mg Tablet 3 Mg PO DAILY Amlodipine Besylate 10 Mg Tablet 10 Mg PO DAILY Vitals/I & O Vital Sign - Last 24 Hours 01/07/19 01/07/19 01/07/19 01/07/19 13:28 14:06 14:40 15:00 Temp 97.9 97.9 Pulse 116 102 Resp 20 B/P (MAP) 118/80 (93) 103/52 (69) Pulse Ox 100 97 O2 Delivery BiPAP/CPAP Nasal Cannula Nasal Cannula O2 Flow Rate 3.0 3.0 01/07/19 01/07/19 01/07/19 01/07/19 19:00 20:00 20:15 20:58 Temp 97.8 97.8 Pulse 97 Resp 18 24 B/P (MAP) 120/75 (90) Pulse Ox 97 100 100 O2 Delivery Nasal Cannula Bi-pap BiPAP/CPAP BiPAP/CPAP O2 Flow Rate 2.0 01/07/19 01/07/19 01/08/19 01/08/19 21:28 23:41 01:27 03:00 Temp 97.5 97.5 Pulse 104 Resp 21 18 B/P (MAP) 129/77 (94) Pulse Ox 97 99 O2 Delivery BiPAP/CPAP BiPAP/CPAP BiPAP/CPAP 01/08/19 01/08/19 01/08/19 01/08/19 03:08 04:35 06:34 07:05 Resp 20 Pulse Ox 97 99 99 96 O2 Delivery BiPAP/CPAP BiPAP/CPAP Nasal Cannula Nasal Cannula O2 Flow Rate 2.5 3.0 01/08/19 01/08/19 01/08/19 01/08/19 07:28 07:45 07:48 11:09 Temp 97.8 97.8 97.8 97.8 Pulse 101 98 Resp 20 B/P (MAP) 122/92 (102) 107/70 (82) Pulse Ox 94 96 92 O2 Delivery Nasal Cannula Nasal Cannula Nasal Cannula Nasal Cannula O2 Flow Rate 3.0 3.0 3.0 3.0 01/08/19 11:57 O2 Delivery Nasal Cannula O2 Flow Rate 3.0 Intake and Output 01/07/19 01/07/19 01/08/19 15:00 23:00 07:00 Intake Total 100 ml Output Total 500 ml Balance -400 ml RADAMES MÉNDEZ MD Jan 08, 2019 13:06
--- NOTE | 2019-01-08 13:16 | RAD ---
Indication: NG tube placement. Small bowel obstruction. TECHNIQUE: Upright and supine AP view of the abdomen COMPARISON: KUB from 01/05/2019 FINDINGS: NG tube is seen with its tip in the fundus of the stomach. Dilated small bowel loops are redemonstrated. No evidence of large pneumoperitoneum. Clear lung bases. Heart is normal in size. IMPRESSION: Redemonstrated dilated bowel loops likely ileus or small bowel obstruction. NG tube is in the fundus of the stomach. Electronically signed by: Gabe Madden DO (01/08/2019 1:13 PM) [facility]
--- NOTE | 2019-01-08 14:40 | NUR ---
Notified MD patient has not voided, orders received to straight cath if unsuccessful with voiding with PT/OT. This nurse will continue to monitor.
[2019-01-08] MEDS ORDERED: SALIVA STIMULANT AGENT 44ML SPRAY BOTTLE. PO PRN (14:45)
[2019-01-08] MEDS: BENZOCAINE/MENTHOL LOZENGE. PO PRN (14:55)
[2019-01-08 15:00] VITALS: BP 115/70
--- NOTE | 2019-01-08 16:00 | NUR ---
Patient was able to void on BSC, will start a goal of getting up to BSC every other hour. Discussed with family, and patient. This nurse will continue to monitor.
[2019-01-08 19:00] VITALS: BP 114/78
--- NOTE | 2019-01-08 19:10 | NUR ---
This nurse called daughterBessy with goals for patient to get up more. Family agrees to assist in encouragement for patient to get up more frequently. This nurse will continue to monitor.
[2019-01-08] MEDS: rOPINIRole 1 MG TABLET. PO SCH (21:00)
--- NOTE | 2019-01-08 21:45 | NUR ---
Assisted patient up to bedside commode. Patient had mix of urine and stool. Patient assisted back to bed. Bladder scan done. Patient has 303cc in bladder. Will continue to monitor patient.
[2019-01-08] MEDS ORDERED: [UNRECOGNIZED DRUG - OTHER] IV SCH ×10 (22:00)
[2019-01-08] MEDS ORDERED: AMINO ACID IV SCH ×10 (22:00)
[2019-01-08] MEDS ORDERED: DEXTROSE 70% IV SCH ×10 (22:00)
[2019-01-08] MEDS ORDERED: TOTAL PARENTERAL NUTRITION IV SCH ×10 (22:00)
[2019-01-08 23:00] VITALS: BP 134/75
[2019-01-09 03:00] VITALS: BP 135/83
[2019-01-09] MEDS: IPRATRPIUM/ALBUTEROL 0.5/2.5MG 3 ML NEBU. NEB SCH ×7 (03:42→23:17)
[2019-01-09] MEDS: HYDROmorphone 2 MG/ML VIAL IV PRN ×3 (04:28→18:37)
[2019-01-09] MEDS: INSULIN LISPRO 300 UNITS/3 ML INSULN.PEN. SQ SCH ×7 (06:00→18:00)
[2019-01-09 06:05] LABS: BASO # 0.1 x10^3/uL (0.0-0.2); BASO % 1 % (0-3); EOS # 0.1 x10^3/uL (0.0-0.7); EOS % 1 % (0-3); HEMOGLOBIN 7.3 g/dL (12.0-15.5); LYMPH % 9 % (24-48); MEAN CORPUSCULAR HEMOGLOBIN 23 pg (25-35); MEAN CORPUSCULAR HGB CONC 31 g/dL (31-37); MEAN CORPUSCULAR VOLUME 77 fL (79-100); MONO # 0.8 x10^3/uL (0.0-1.1); MONO % 7 % (0-9); NEUT # 9.5 x10^3uL (1.8-7.7); NEUT % 82 % (31-73); PLATELET COUNT 308 x10^3/uL (140-400); RED BLOOD COUNT 3.14 x10^6/uL (3.50-5.40); RED CELL DISTRIBUTION WIDTH 24.6 % (11.5-14.5); WHITE BLOOD COUNT 11.6 x10^3/uL (4.0-11.0)
[2019-01-09 07:00] VITALS: BP 120/75
--- NOTE | 2019-01-09 07:29 | PDOC ---
PULMONARY PROGRESS NOTES Subjective used BIPAP for 3-4 hrs last night has sob, occ cough, had bm, ng still has large drainage Vitals Vital Signs Date Time Temp Pulse Resp B/P (MAP) Pulse Ox O2 Delivery O2 Flow Rate FiO2 01/09/19 04:58 20 Nasal Cannula 2.0 01/09/19 03:43 97 01/09/19 03:00 97.9 97 135/83 (100) 97.9 ROS: No Nausea, No Chest Pain General: Alert, Mild Distress HEENT: Other (nc at perrl nose throat clear neck +JVD no lad, no thyromegaly ) Lungs: Crackles Cardiovascular: S1, S2 Abdomen: Soft, Non-tender, Other (distended) Neuro Exam: Alert, Oriented Extremities: No Edema Skin: Warm Labs Laboratory Tests Test 01/07/19 12:01 01/07/19 13:39 01/07/19 17:00 01/08/19 00:24 Glucose (Fingerstick) 419 mg/dL (70-99) 255 mg/dL (70-99) 153 mg/dL (70-99) 134 mg/dL (70-99) Test 01/08/19 05:00 01/08/19 05:58 01/08/19 12:02 01/08/19 17:41 White Blood Count 14.0 x10^3/uL (4.0-11.0) Red Blood Count 3.32 x10^6/uL (3.50-5.40) Hemoglobin 7.9 g/dL (12.0-15.5) Hematocrit 25.6 % (36.0-47.0) Mean Corpuscular Volume 77 fL (79-100) Mean Corpuscular Hemoglobin 24 pg (25-35) Mean Corpuscular Hemoglobin Concent 31 g/dL (31-37) Red Cell Distribution Width 24.4 % (11.5-14.5) Platelet Count 358 x10^3/uL (140-400) Neutrophils (%) (Auto) 86 % (31-73) Lymphocytes (%) (Auto) 7 % (24-48) Monocytes (%) (Auto) 6 % (0-9) Eosinophils (%) (Auto) 1 % (0-3) Basophils (%) (Auto) 0 % (0-3) Neutrophils # (Auto) 12.0 x10^3uL (1.8-7.7) Lymphocytes # (Auto) 0.9 x10^3/uL (1.0-4.8) Monocytes # (Auto) 0.9 x10^3/uL (0.0-1.1) Eosinophils # (Auto) 0.2 x10^3/uL (0.0-0.7) Basophils # (Auto) 0.0 x10^3/uL (0.0-0.2) Sodium Level 146 mmol/L (136-145) Potassium Level 4.6 mmol/L (3.5-5.1) Chloride Level 108 mmol/L (98-107) Carbon Dioxide Level 28 mmol/L (21-32) Anion Gap 10 (6-14) Blood Urea Nitrogen 36 mg/dL (7-20) Creatinine 0.9 mg/dL (0.6-1.0) Estimated GFR (Cockcroft-Gault) 73.9 Glucose Level 240 mg/dL (70-99) Calcium Level 9.1 mg/dL (8.5-10.1) Phosphorus Level 4.3 mg/dL (2.6-4.7) Magnesium Level 2.1 mg/dL (1.8-2.4) Glucose (Fingerstick) 227 mg/dL (70-99) 295 mg/dL (70-99) 191 mg/dL (70-99) Test 01/09/19 05:00 White Blood Count 11.6 x10^3/uL (4.0-11.0) Red Blood Count 3.14 x10^6/uL (3.50-5.40) Hemoglobin 7.3 g/dL (12.0-15.5) Hematocrit 24.0 % (36.0-47.0) Mean Corpuscular Volume 77 fL (79-100) Mean Corpuscular Hemoglobin 23 pg (25-35) Mean Corpuscular Hemoglobin Concent 31 g/dL (31-37) Red Cell Distribution Width 24.6 % (11.5-14.5) Platelet Count 308 x10^3/uL (140-400) Neutrophils (%) (Auto) 82 % (31-73) Lymphocytes (%) (Auto) 9 % (24-48) Monocytes (%) (Auto) 7 % (0-9) Eosinophils (%) (Auto) 1 % (0-3) Basophils (%) (Auto) 1 % (0-3) Neutrophils # (Auto) 9.5 x10^3uL (1.8-7.7) Lymphocytes # (Auto) 1.0 x10^3/uL (1.0-4.8) Monocytes # (Auto) 0.8 x10^3/uL (0.0-1.1) Eosinophils # (Auto) 0.1 x10^3/uL (0.0-0.7) Basophils # (Auto) 0.1 x10^3/uL (0.0-0.2) Laboratory Tests Test 01/08/19 12:02 01/08/19 17:41 01/09/19 05:00 Glucose (Fingerstick) 295 mg/dL (70-99) 191 mg/dL (70-99) White Blood Count 11.6 x10^3/uL (4.0-11.0) Red Blood Count 3.14 x10^6/uL (3.50-5.40) Hemoglobin 7.3 g/dL (12.0-15.5) Hematocrit 24.0 % (36.0-47.0) Mean Corpuscular Volume 77 fL (79-100) Mean Corpuscular Hemoglobin 23 pg (25-35) Mean Corpuscular Hemoglobin Concent 31 g/dL (31-37) Red Cell Distribution Width 24.6 % (11.5-14.5) Platelet Count 308 x10^3/uL (140-400) Neutrophils (%) (Auto) 82 % (31-73) Lymphocytes (%) (Auto) 9 % (24-48) Monocytes (%) (Auto) 7 % (0-9) Eosinophils (%) (Auto) 1 % (0-3) Basophils (%) (Auto) 1 % (0-3) Neutrophils # (Auto) 9.5 x10^3uL (1.8-7.7) Lymphocytes # (Auto) 1.0 x10^3/uL (1.0-4.8) Monocytes # (Auto) 0.8 x10^3/uL (0.0-1.1) Eosinophils # (Auto) 0.1 x10^3/uL (0.0-0.7) Basophils # (Auto) 0.1 x10^3/uL (0.0-0.2) Medications Active Scripts Medications Dose Route/Sig Max Daily Dose Days Date Category Chlorhexidine Gluconate 473 Ml Mouthwash 473 Ml MM BID 7 12/10/18 Rx Vitamin C (Ascorbate Calcium) 500 Mg Tablet 500 Mg PO DAILY 30 11/22/18 Rx Slow Release Iron (Ferrous Sulfate) 250 Mg Tablet.er 250 Mg PO DAILY 30 11/22/18 Rx Protonix (Pantoprazole Sodium) 40 Mg Granpkt.dr 40 Mg PO DAILY 30 11/22/18 Rx Metformin Hcl Er (Metformin Hcl) 500 Mg Tab.er.24h 1 Tab PO DAILY 11/12/16 Reported Namenda (Memantine Hcl) 10 Mg Tablet 1 Tab PO BID 11/12/16 Reported Losartan Potassium 100 Mg Tablet 100 Mg PO DAILY 11/12/16 Reported Spironolactone 25 Mg Tablet 1 Tab PO DAILY 11/12/16 Reported Ventolin Hfa Inhaler (Albuterol Sulfate) 18 Gm Hfa.aer.ad 2 Puff INH Q4HRS 11/11/16 Reported Cymbalta (Duloxetine Hcl) 20 Mg Capsule.dr 90 Mg PO DAILY 01/27/16 Reported Requip (Ropinirole Hcl) 1 Mg Tablet 3 Mg PO DAILY 01/27/16 Reported Amlodipine Besylate 10 Mg Tablet 10 Mg PO DAILY 01/27/16 Reported Comments cxr reviewed, b lat ll effusion/atelectasis/infilt L>R Impression . 1. Acute hypoxic respiratory failure MULTIFACTORIAL EXPECTED POST SURGICAL INTERVENTION 2. Gastrointestinal bleed/cecal ulceration by colonoscopy, status post laparoscopic-assisted right colon resection and hemorrhoidectomy 12/17 3. ileus S/P SECOND SURGERY 12/30 SEE BELOW 4. Underlying suspected severe chronic obstructive pulmonary disease. 5. Abnormal CT chest with focal opacity in the right upper lobe, could be nodule/ATELECTASIS Date: 12/17/2018 Preoperative diagnosis: GI bleed cecal ulceration by colonoscopy with active bleeding hemorrhoids Postoperative diagnosis: Same Procedure: Laparoscopic-assisted right colon resection and hemorrhoidectomy Surgeon: Jan Specimen: Right colon and hemorrhoids Date: 12/30/2018 Preoperative diagnosis: Small bowel obstruction Postoperative diagnosis: Small bowel obstruction at previous anastomotic site Procedure: Exploratory laparotomy with extended right hemicolectomy and primary anastomosis Plan . d/w RN, avoid oversedation PRN BIPAP during day, continuos at night, setting reviewed. pulmicort NG PER SURGEON IS, the importance of use discussed BD q 4hrs, cxr reviewed 01/02 elevate hob pt/ot FOLLOW UP CT IN 3 MONTHS, dr hoover discussed w DAUGHTER discussed w pt, rn, AMBIKA GONZALEZ MD Jan 09, 2019 07:29
[2019-01-09] MEDS: FERROUS SULFATE 325 MG TABLET. PO SCH (08:00)
[2019-01-09] MEDS: BUDESONIDE 0.5 MG/2 ML NEBU. NEB SCH ×2 (08:23→19:15)
[2019-01-09] MEDS: MEMANTINE 10 MG TABLET. PO SCH ×2 (09:00→21:00)
[2019-01-09] MEDS: amLODIPine BESYLATE 10 MG TABLET PO SCH (09:00)
[2019-01-09] MEDS: LOSARTAN POTASSIUM 50 MG TABLET. PO SCH (09:00)
[2019-01-09] MEDS: SPIRONOLACTONE 25 MG TABLET PO SCH (09:00)
[2019-01-09] MEDS: DOCUSATE SODIUM 100 MG CAPSULE. PO SCH (09:00)
[2019-01-09] MEDS: DULoxetine HCL 30 MG CAPSULE.DR PO SCH (09:00)
[2019-01-09] MEDS: ASCORBIC ACID 500 MG TABLET PO SCH (09:00)
[2019-01-09] MEDS: CHLORHEXIDINE 0.12% 15 ML MOUTHWASH. MM SCH ×2 (09:17→21:27)
[2019-01-09] MEDS: PANTOPRAZOLE IV PUSH 40 MG VIAL. IVP SCH (09:17)
[2019-01-09] MEDS: ENOXAPARIN 40 MG/0.4 ML SYRINGE. SQ SCH (09:18)
[2019-01-09] MEDS: BENZOCAINE/MENTHOL LOZENGE. PO PRN ×3 (09:28→16:05)
[2019-01-09] MEDS: INSULIN GLARGINE 300 UNITS/3 ML INSULN.PEN. SQ SCH (09:36)
[2019-01-09 11:00] VITALS: BP 126/84
--- NOTE | 2019-01-09 11:24 | PDOC ---
Infectious Disease Note Subjective Subjective Abdomen feeling some better following decompression Several BM this morning TPN O2 No F/C/S/N/V/SOA ROS ROS per HPI Vital Sign Vital Signs Vital Signs Date Time Temp Pulse Resp B/P (MAP) Pulse Ox O2 Delivery O2 Flow Rate FiO2 01/09/19 11:16 92 Nasal Cannula 3.0 01/09/19 07:00 98.0 86 18 120/75 (90) 98.0 Physical Exam PHYSICAL EXAM GENERAL: Sitting in the chair, relaxed appearance, alert. Inbed now HEENT: Oral cavity pink, dry NECK: Supple LUNGS: Diminished aeration bases, nonlabored HEART: S1, S2 ABDOMEN: Distended, NT to light palpation. + BS, dressing. mild serous fluid EXTREMITIES: LLE 1+ edema. no cyanosis SKIN: No rash. NEUROLOGIC: Alert, responding appropriately RUE-PICC (12/23) clean Labs Lab Laboratory Tests Test 01/08/19 12:02 01/08/19 17:41 01/09/19 05:00 Glucose (Fingerstick) 295 mg/dL (70-99) 191 mg/dL (70-99) White Blood Count 11.6 x10^3/uL (4.0-11.0) Red Blood Count 3.14 x10^6/uL (3.50-5.40) Hemoglobin 7.3 g/dL (12.0-15.5) Hematocrit 24.0 % (36.0-47.0) Mean Corpuscular Volume 77 fL (79-100) Mean Corpuscular Hemoglobin 23 pg (25-35) Mean Corpuscular Hemoglobin Concent 31 g/dL (31-37) Red Cell Distribution Width 24.6 % (11.5-14.5) Platelet Count 308 x10^3/uL (140-400) Neutrophils (%) (Auto) 82 % (31-73) Lymphocytes (%) (Auto) 9 % (24-48) Monocytes (%) (Auto) 7 % (0-9) Eosinophils (%) (Auto) 1 % (0-3) Basophils (%) (Auto) 1 % (0-3) Neutrophils # (Auto) 9.5 x10^3uL (1.8-7.7) Lymphocytes # (Auto) 1.0 x10^3/uL (1.0-4.8) Monocytes # (Auto) 0.8 x10^3/uL (0.0-1.1) Eosinophils # (Auto) 0.1 x10^3/uL (0.0-0.7) Basophils # (Auto) 0.1 x10^3/uL (0.0-0.2) Micro 01/01. BLOOD CULTURE Preliminary NO GROWTH AFTER 1 DAY 12/21/18 Blood Culture - Preliminary, Resulted NO GROWTH AFTER 4 DAYS Objective Assessment Illeus Small bowel obstruction at previous anastomotic site. s/p exploratory laparotomy with extended right hemicolectomy and primary anastomosis, 12/30. Leukocytosis - better and has been off abx for several days S/P laparoscopic-assisted right colon resection and hemorrhoidectomy on 2018 for bleeding cecal ulcer and hemorrhoids; path negative for malignancy . Left pleural effusion with left basilar atelectasis or infiltrate. cxr 01/02 shows improvement COPD Pneumonia sputum c/s nonrevealing, 12/25 - yeast Allergies to PCN Plan Plan of Care Continue to observe off antibiotics Monitor WBC/temp - if worsens will need CT abd/pelv maintain aspiration precautions D/w daughter D/w nursing Attending Co-Sign Attending Co-Sign The patient was seen and interviewed as well as examined at the bedside. The chart was reviewed. The case was discussed. Agree with the plan of care. HERSON PARSON APRN Jan 09, 2019 11:[address] MD Jan 09, 2019 13:02
[2019-01-09] MEDS: TPN PER PHARMACY MC PRN (13:02)
--- NOTE | 2019-01-09 13:03 | NUR ---
Pharmacy TPN Dosing Note S: ELLE LATHAM is a 72 year old F Currently receiving Central Continuous TPN started 12/23/18 B:Pertinent PMH: SBO Height: 5 feet, 7 inches Weight: 85 kg Current diet: npo LABS: Sodium: 146 Potassium: 4.6 Chloride: 108 Calcium: 9.1 Corrected Calcium: 10.78 Magnesium: 2.1 CO2: 28 SCr: 0.9 Glucose: 134-295 Albumin: 1.9 AST: 35 ALT: 44 TPN FORMULA: TPN TYPE: Central Continuous AMINO ACIDS: 85 gm DEXTROSE: 260 gm LIPIDS: 40 gm SODIUM CHLORIDE: 40 mEq POTASSIUM CHLORIDE: 30 mEq POTASSIUM PHOSPHATE: 10 mmol MAGNESIUM: 15 mEq INSULIN: 10 units MULTIPLE VITAMIN: 10 ml TRACE ELEMENTS: MTE5 1 ml TPN PLAN: No changes today. Labs ordered for tomorrow AM. R: Continue TPN Will monitor electrolytes, glucose, and tolerance to TPN. Latoya Burns [facility], 01/09/19 [id number]
--- NOTE | 2019-01-09 14:38 | PDOC ---
SURGICAL PROGRESS NOTE Subjective Pt without new c/o, reports passing flatus and stool Vital Signs Vital Signs Date Time Temp Pulse Resp B/P (MAP) Pulse Ox O2 Delivery O2 Flow Rate FiO2 01/09/19 12:03 97 Nasal Cannula 3.0 01/09/19 11:00 98.2 63 18 126/84 (98) 98.2 I&O Intake and Output 01/09/19 07:00 Intake Total 1510 ml Output Total 900 ml Balance 610 ml Intake Oral 0 ml IV Total 755 ml Other 755 ml Gastric Drainage Total 900 ml # Voids 3 # Bowel Movements 2 General: Alert, Cooperative, No acute distress Abdomen: Soft, No tenderness, Other (distended) Labs Laboratory Tests Test 01/07/19 17:00 01/08/19 00:24 01/08/19 05:00 01/08/19 05:58 Glucose (Fingerstick) 153 mg/dL (70-99) 134 mg/dL (70-99) 227 mg/dL (70-99) White Blood Count 14.0 x10^3/uL (4.0-11.0) Red Blood Count 3.32 x10^6/uL (3.50-5.40) Hemoglobin 7.9 g/dL (12.0-15.5) Hematocrit 25.6 % (36.0-47.0) Mean Corpuscular Volume 77 fL (79-100) Mean Corpuscular Hemoglobin 24 pg (25-35) Mean Corpuscular Hemoglobin Concent 31 g/dL (31-37) Red Cell Distribution Width 24.4 % (11.5-14.5) Platelet Count 358 x10^3/uL (140-400) Neutrophils (%) (Auto) 86 % (31-73) Lymphocytes (%) (Auto) 7 % (24-48) Monocytes (%) (Auto) 6 % (0-9) Eosinophils (%) (Auto) 1 % (0-3) Basophils (%) (Auto) 0 % (0-3) Neutrophils # (Auto) 12.0 x10^3uL (1.8-7.7) Lymphocytes # (Auto) 0.9 x10^3/uL (1.0-4.8) Monocytes # (Auto) 0.9 x10^3/uL (0.0-1.1) Eosinophils # (Auto) 0.2 x10^3/uL (0.0-0.7) Basophils # (Auto) 0.0 x10^3/uL (0.0-0.2) Sodium Level 146 mmol/L (136-145) Potassium Level 4.6 mmol/L (3.5-5.1) Chloride Level 108 mmol/L (98-107) Carbon Dioxide Level 28 mmol/L (21-32) Anion Gap 10 (6-14) Blood Urea Nitrogen 36 mg/dL (7-20) Creatinine 0.9 mg/dL (0.6-1.0) Estimated GFR (Cockcroft-Gault) 73.9 Glucose Level 240 mg/dL (70-99) Calcium Level 9.1 mg/dL (8.5-10.1) Phosphorus Level 4.3 mg/dL (2.6-4.7) Magnesium Level 2.1 mg/dL (1.8-2.4) Test 01/08/19 12:02 01/08/19 17:41 01/09/19 00:01 01/09/19 05:00 Glucose (Fingerstick) 295 mg/dL (70-99) 191 mg/dL (70-99) 165 mg/dL (70-99) White Blood Count 11.6 x10^3/uL (4.0-11.0) Red Blood Count 3.14 x10^6/uL (3.50-5.40) Hemoglobin 7.3 g/dL (12.0-15.5) Hematocrit 24.0 % (36.0-47.0) Mean Corpuscular Volume 77 fL (79-100) Mean Corpuscular Hemoglobin 23 pg (25-35) Mean Corpuscular Hemoglobin Concent 31 g/dL (31-37) Red Cell Distribution Width 24.6 % (11.5-14.5) Platelet Count 308 x10^3/uL (140-400) Neutrophils (%) (Auto) 82 % (31-73) Lymphocytes (%) (Auto) 9 % (24-48) Monocytes (%) (Auto) 7 % (0-9) Eosinophils (%) (Auto) 1 % (0-3) Basophils (%) (Auto) 1 % (0-3) Neutrophils # (Auto) 9.5 x10^3uL (1.8-7.7) Lymphocytes # (Auto) 1.0 x10^3/uL (1.0-4.8) Monocytes # (Auto) 0.8 x10^3/uL (0.0-1.1) Eosinophils # (Auto) 0.1 x10^3/uL (0.0-0.7) Basophils # (Auto) 0.1 x10^3/uL (0.0-0.2) Test 01/09/19 06:20 01/09/19 11:47 Glucose (Fingerstick) 179 mg/dL (70-99) 182 mg/dL (70-99) Laboratory Tests Test 01/08/19 17:41 01/09/19 00:01 01/09/19 05:00 01/09/19 06:20 Glucose (Fingerstick) 191 mg/dL (70-99) 165 mg/dL (70-99) 179 mg/dL (70-99) White Blood Count 11.6 x10^3/uL (4.0-11.0) Red Blood Count 3.14 x10^6/uL (3.50-5.40) Hemoglobin 7.3 g/dL (12.0-15.5) Hematocrit 24.0 % (36.0-47.0) Mean Corpuscular Volume 77 fL (79-100) Mean Corpuscular Hemoglobin 23 pg (25-35) Mean Corpuscular Hemoglobin Concent 31 g/dL (31-37) Red Cell Distribution Width 24.6 % (11.5-14.5) Platelet Count 308 x10^3/uL (140-400) Neutrophils (%) (Auto) 82 % (31-73) Lymphocytes (%) (Auto) 9 % (24-48) Monocytes (%) (Auto) 7 % (0-9) Eosinophils (%) (Auto) 1 % (0-3) Basophils (%) (Auto) 1 % (0-3) Neutrophils # (Auto) 9.5 x10^3uL (1.8-7.7) Lymphocytes # (Auto) 1.0 x10^3/uL (1.0-4.8) Monocytes # (Auto) 0.8 x10^3/uL (0.0-1.1) Eosinophils # (Auto) 0.1 x10^3/uL (0.0-0.7) Basophils # (Auto) 0.1 x10^3/uL (0.0-0.2) Test 01/09/19 11:47 Glucose (Fingerstick) 182 mg/dL (70-99) Problem List s/p xlap cont NGT await improvement in bowel fxn monitor labs, suspect hgb secondary to dilution CAROLINE WAGNER MD Jan 09, 2019 14:38
[2019-01-09 15:00] VITALS: BP 137/82
--- NOTE | 2019-01-09 16:00 | NUR ---
This nurse discussed with Dr. Cooper patient output from [facility], amount, color, no new orders at this time. This nurse will continue to monitor.
--- NOTE | 2019-01-09 16:45 | NUR ---
This nurse notified MD while on the floor patient had coughed up some contents, showed MD specimen in specimen cup, no new orders at this time. Family at bed side. This nurse will continue to monitor.
[2019-01-09 19:00] VITALS: BP 143/83
[2019-01-09] MEDS: rOPINIRole 1 MG TABLET. PO SCH (21:00)
[2019-01-09] MEDS ORDERED: DEXTROSE 70% IV SCH ×10 (22:00)
[2019-01-09] MEDS ORDERED: TOTAL PARENTERAL NUTRITION IV SCH ×10 (22:00)
[2019-01-09] MEDS ORDERED: AMINO ACID IV SCH ×10 (22:00)
[2019-01-09] MEDS ORDERED: [UNRECOGNIZED DRUG - OTHER] IV SCH ×10 (22:00)
[2019-01-09 23:00] VITALS: BP 131/80
[2019-01-09] MEDS: ONDANSETRON PF 4 MG/2 ML VIAL. IV PRN (23:44)
[2019-01-10] MEDS: HYDROmorphone 2 MG/ML VIAL IV PRN ×4 (01:29→22:05)
[2019-01-10 03:00] VITALS: BP 119/85
[2019-01-10] MEDS: IPRATRPIUM/ALBUTEROL 0.5/2.5MG 3 ML NEBU. NEB SCH ×6 (03:55→23:12)
[2019-01-10] MEDS: BUDESONIDE 0.5 MG/2 ML NEBU. NEB SCH ×2 (05:50→20:08)
[2019-01-10] MEDS: INSULIN LISPRO 300 UNITS/3 ML INSULN.PEN. SQ SCH ×7 (06:32→18:04)
[2019-01-10 07:00] VITALS: BP 116/83
[2019-01-10] MEDS: PANTOPRAZOLE IV PUSH 40 MG VIAL. IVP SCH (08:27)
[2019-01-10] MEDS: ENOXAPARIN 40 MG/0.4 ML SYRINGE. SQ SCH (08:41)
[2019-01-10] MEDS: DULoxetine HCL 30 MG CAPSULE.DR PO SCH (09:00)
[2019-01-10] MEDS: MEMANTINE 10 MG TABLET. PO SCH (09:00)
[2019-01-10 09:10] LABS: BASO % 0 % (0-3); EOS # 0.1 x10^3/uL (0.0-0.7); EOS % 1 % (0-3); HEMATOCRIT 25.2 % (36.0-47.0); HEMOGLOBIN 7.7 g/dL (12.0-15.5); LYMPH % 7 % (24-48); MEAN CORPUSCULAR HEMOGLOBIN 24 pg (25-35); MEAN CORPUSCULAR HGB CONC 31 g/dL (31-37); MEAN CORPUSCULAR VOLUME 77 fL (79-100); MONO # 0.8 x10^3/uL (0.0-1.1); MONO % 6 % (0-9); NEUT # 11.7 x10^3uL (1.8-7.7); NEUT % 86 % (31-73); PLATELET COUNT 340 x10^3/uL (140-400); RED BLOOD COUNT 3.29 x10^6/uL (3.50-5.40); RED CELL DISTRIBUTION WIDTH 24.1 % (11.5-14.5); WHITE BLOOD COUNT 13.6 x10^3/uL (4.0-11.0)
--- NOTE | 2019-01-10 09:21 | PDOC ---
Infectious Disease Note Subjective Subjective Abdomen feeling some better following decompression Several BM this morning TPN O2 No F/C/S/N/V/SOA Vital Sign Vital Signs Vital Signs Date Time Temp Pulse Resp B/P (MAP) Pulse Ox O2 Delivery O2 Flow Rate FiO2 01/10/19 07:20 Nasal Cannula 2.0 01/10/19 07:00 98.1 85 18 116/83 (94) 97 98.1 Physical Exam PHYSICAL EXAM GENERAL: Sitting in the chair, relaxed appearance, alert. Inbed now HEENT: Oral cavity pink, dry NECK: Supple LUNGS: Diminished aeration bases, nonlabored HEART: S1, S2 ABDOMEN: Distended, NT to light palpation. + BS, dressing. mild serous fluid EXTREMITIES: LLE 1+ edema. no cyanosis SKIN: No rash. NEUROLOGIC: Alert, responding appropriately RUE-PICC (12/23) clean Labs Lab Laboratory Tests Test 01/09/19 11:47 01/09/19 18:15 01/10/19 00:47 01/10/19 06:30 Glucose (Fingerstick) 182 mg/dL (70-99) 132 mg/dL (70-99) 168 mg/dL (70-99) 177 mg/dL (70-99) Test 01/10/19 08:45 White Blood Count 13.6 x10^3/uL (4.0-11.0) Red Blood Count 3.29 x10^6/uL (3.50-5.40) Hemoglobin 7.7 g/dL (12.0-15.5) Hematocrit 25.2 % (36.0-47.0) Mean Corpuscular Volume 77 fL (79-100) Mean Corpuscular Hemoglobin 24 pg (25-35) Mean Corpuscular Hemoglobin Concent 31 g/dL (31-37) Red Cell Distribution Width 24.1 % (11.5-14.5) Platelet Count 340 x10^3/uL (140-400) Neutrophils (%) (Auto) 86 % (31-73) Lymphocytes (%) (Auto) 7 % (24-48) Monocytes (%) (Auto) 6 % (0-9) Eosinophils (%) (Auto) 1 % (0-3) Basophils (%) (Auto) 0 % (0-3) Neutrophils # (Auto) 11.7 x10^3uL (1.8-7.7) Lymphocytes # (Auto) 1.0 x10^3/uL (1.0-4.8) Monocytes # (Auto) 0.8 x10^3/uL (0.0-1.1) Eosinophils # (Auto) 0.1 x10^3/uL (0.0-0.7) Basophils # (Auto) 0.0 x10^3/uL (0.0-0.2) Micro Microbiology 12/19/18 Blood Culture - Preliminary, Resulted NO GROWTH AFTER 1 DAY Objective Assessment Leukocytosis S/P rt hemicolectomy COPD Pneumonia Ileus Plan Plan of Care Continue to observe off antibiotics Monitor WBC/temp - if worsens will need CT abd/pelv maintain aspiration precautions D/w nursing DENI SALINAS MD Jan 10, 2019 09:21
[2019-01-10 09:29] LABS: ALBUMIN 1.9 g/dL (3.4-5.0); ALBUMIN/GLOBULIN RATIO 0.4 (1.0-1.7); CALCIUM 8.6 mg/dL (8.5-10.1); CREATININE 0.6 mg/dL (0.6-1.0); GFR 117.9; MAGNESIUM 1.8 mg/dL (1.8-2.4); PHOSPHORUS 3.6 mg/dL (2.6-4.7); POTASSIUM 3.9 mmol/L (3.5-5.1); TOTAL BILIRUBIN 0.3 mg/dL (0.2-1.0); TOTAL PROTEIN 6.3 g/dL (6.4-8.2)
[2019-01-10] MEDS: LOSARTAN POTASSIUM 50 MG TABLET. PO SCH (09:30)
[2019-01-10] MEDS: FERROUS SULFATE 325 MG TABLET. PO SCH (09:30)
[2019-01-10] MEDS: amLODIPine BESYLATE 10 MG TABLET PO SCH (09:30)
[2019-01-10] MEDS: SPIRONOLACTONE 25 MG TABLET PO SCH (09:30)
[2019-01-10] MEDS: CHLORHEXIDINE 0.12% 15 ML MOUTHWASH. MM SCH ×2 (09:30→22:05)
[2019-01-10] MEDS: ASCORBIC ACID 500 MG TABLET PO SCH (09:30)
[2019-01-10] MEDS: DOCUSATE SODIUM 100 MG CAPSULE. PO SCH (09:30)
--- NOTE | 2019-01-10 09:31 | PDOC ---
ABRAHAM WEBER [employer]OTELY [employer]ED [employer] 01/10/19 0931: SURGICAL PROGRESS NOTE Subjective 2 stools documented up in chair Vital Signs Vital Signs Date Time Temp Pulse Resp B/P (MAP) Pulse Ox O2 Delivery O2 Flow Rate FiO2 01/10/19 07:20 Nasal Cannula 2.0 01/10/19 07:00 98.1 85 18 116/83 (94) 97 98.1 I&O Intake and Output 01/10/19 06:59 Intake Total 1510 ml Output Total 150 ml Balance 1360 ml IV Total 755 ml Other 755 ml Gastric Drainage Total 150 ml # Voids 4 # Bowel Movements 2 General: Alert, Oriented X3, Cooperative, No acute distress Abdomen: Soft, Other (dressing dry, less distended ) Labs Laboratory Tests Test 01/08/19 12:02 01/08/19 17:41 01/09/19 00:01 01/09/19 05:00 Glucose (Fingerstick) 295 mg/dL (70-99) 191 mg/dL (70-99) 165 mg/dL (70-99) White Blood Count 11.6 x10^3/uL (4.0-11.0) Red Blood Count 3.14 x10^6/uL (3.50-5.40) Hemoglobin 7.3 g/dL (12.0-15.5) Hematocrit 24.0 % (36.0-47.0) Mean Corpuscular Volume 77 fL (79-100) Mean Corpuscular Hemoglobin 23 pg (25-35) Mean Corpuscular Hemoglobin Concent 31 g/dL (31-37) Red Cell Distribution Width 24.6 % (11.5-14.5) Platelet Count 308 x10^3/uL (140-400) Neutrophils (%) (Auto) 82 % (31-73) Lymphocytes (%) (Auto) 9 % (24-48) Monocytes (%) (Auto) 7 % (0-9) Eosinophils (%) (Auto) 1 % (0-3) Basophils (%) (Auto) 1 % (0-3) Neutrophils # (Auto) 9.5 x10^3uL (1.8-7.7) Lymphocytes # (Auto) 1.0 x10^3/uL (1.0-4.8) Monocytes # (Auto) 0.8 x10^3/uL (0.0-1.1) Eosinophils # (Auto) 0.1 x10^3/uL (0.0-0.7) Basophils # (Auto) 0.1 x10^3/uL (0.0-0.2) Test 01/09/19 06:20 01/09/19 11:47 01/09/19 18:15 01/10/19 00:47 Glucose (Fingerstick) 179 mg/dL (70-99) 182 mg/dL (70-99) 132 mg/dL (70-99) 168 mg/dL (70-99) Test 01/10/19 06:30 01/10/19 08:45 Glucose (Fingerstick) 177 mg/dL (70-99) White Blood Count 13.6 x10^3/uL (4.0-11.0) Red Blood Count 3.29 x10^6/uL (3.50-5.40) Hemoglobin 7.7 g/dL (12.0-15.5) Hematocrit 25.2 % (36.0-47.0) Mean Corpuscular Volume 77 fL (79-100) Mean Corpuscular Hemoglobin 24 pg (25-35) Mean Corpuscular Hemoglobin Concent 31 g/dL (31-37) Red Cell Distribution Width 24.1 % (11.5-14.5) Platelet Count 340 x10^3/uL (140-400) Neutrophils (%) (Auto) 86 % (31-73) Lymphocytes (%) (Auto) 7 % (24-48) Monocytes (%) (Auto) 6 % (0-9) Eosinophils (%) (Auto) 1 % (0-3) Basophils (%) (Auto) 0 % (0-3) Neutrophils # (Auto) 11.7 x10^3uL (1.8-7.7) Lymphocytes # (Auto) 1.0 x10^3/uL (1.0-4.8) Monocytes # (Auto) 0.8 x10^3/uL (0.0-1.1) Eosinophils # (Auto) 0.1 x10^3/uL (0.0-0.7) Basophils # (Auto) 0.0 x10^3/uL (0.0-0.2) Laboratory Tests Test 01/09/19 11:47 01/09/19 18:15 01/10/19 00:47 01/10/19 06:30 Glucose (Fingerstick) 182 mg/dL (70-99) 132 mg/dL (70-99) 168 mg/dL (70-99) 177 mg/dL (70-99) Test 01/10/19 08:45 White Blood Count 13.6 x10^3/uL (4.0-11.0) Red Blood Count 3.29 x10^6/uL (3.50-5.40) Hemoglobin 7.7 g/dL (12.0-15.5) Hematocrit 25.2 % (36.0-47.0) Mean Corpuscular Volume 77 fL (79-100) Mean Corpuscular Hemoglobin 24 pg (25-35) Mean Corpuscular Hemoglobin Concent 31 g/dL (31-37) Red Cell Distribution Width 24.1 % (11.5-14.5) Platelet Count 340 x10^3/uL (140-400) Neutrophils (%) (Auto) 86 % (31-73) Lymphocytes (%) (Auto) 7 % (24-48) Monocytes (%) (Auto) 6 % (0-9) Eosinophils (%) (Auto) 1 % (0-3) Basophils (%) (Auto) 0 % (0-3) Neutrophils # (Auto) 11.7 x10^3uL (1.8-7.7) Lymphocytes # (Auto) 1.0 x10^3/uL (1.0-4.8) Monocytes # (Auto) 0.8 x10^3/uL (0.0-1.1) Eosinophils # (Auto) 0.1 x10^3/uL (0.0-0.7) Basophils # (Auto) 0.0 x10^3/uL (0.0-0.2) Assessment/Plan will try clamping NG DAYLIN WEI MD 01/10/19 1550: SURGICAL PROGRESS NOTE Assessment/Plan Patient seen and examined. She has been passing flatus and has had BM's overnight. Will clamp NGT idf tolerated will then D/C in AM. Agree with Lisandra' s assessment and plan. ABRAHAM WEBER APRN Jan 10, 2019 09:31 DAYLIN WEI MD Jan 10, 2019 15:50
--- NOTE | 2019-01-10 10:16 | PDOC ---
PROGRESS NOTES Chief Complaint Chief Complaint Cecal ulceration - s/p X LAP - rt colon resection and hemorrhoidectomy 12/30 Anemia, colonic Avms Acute hypoxic respiratory failure, improving post op malnutrition VISHNU COPD Sepsis/Leukopenia - meropenem and vanco, ID following ileus on nGT History of Present Illness History of Present Illness Status post exploratory laparoscopy 12/30 and had a remarkable postop course- ileus on TPN with NGT Positive flatus per chart NG tube in place She wants to go home, sleepy though Hemoglobin 7, WBC 11 with no fevers BMP is good Plan: continue TPN Continue NGT per GS MIght need to back down in sedatives Ambulate with PT Social work screen pending PT recommendations Monitor that hemoglobin of 7 Vitals Vitals Vital Signs Date Time Temp Pulse Resp B/P (MAP) Pulse Ox O2 Delivery O2 Flow Rate FiO2 01/10/19 07:20 Nasal Cannula 2.0 01/10/19 07:00 98.1 85 18 116/83 (94) 97 98.1 Physical Exam Physical Exam GENERAL: Sitting in the chair, relaxed appearance, alert. Inbed now HEENT: Oral cavity pink, dry NECK: Supple LUNGS: Diminished aeration bases, nonlabored HEART: S1, S2 ABDOMEN: Distended, NT to light palpation. + BS, dressing. mild serous fluid EXTREMITIES: LLE 1+ edema. no cyanosis SKIN: No rash. NEUROLOGIC: Alert, responding appropriately RUE-PICC (12/23) clean General: Alert, Oriented X3, Cooperative, No acute distress, Other (NGT in place) Heart: Regular rate, Normal S1, Normal S2, No murmurs Lungs: Clear, Crackles Abdomen: Soft, Other (dressing dry, less distended ) Extremities: No clubbing, No cyanosis, No edema Skin: No breakdown, No significant lesion Labs LABS Laboratory Tests Test 01/09/19 11:47 01/09/19 18:15 01/10/19 00:47 01/10/19 06:30 Glucose (Fingerstick) 182 mg/dL (70-99) 132 mg/dL (70-99) 168 mg/dL (70-99) 177 mg/dL (70-99) Test 01/10/19 08:45 White Blood Count 13.6 x10^3/uL (4.0-11.0) Red Blood Count 3.29 x10^6/uL (3.50-5.40) Hemoglobin 7.7 g/dL (12.0-15.5) Hematocrit 25.2 % (36.0-47.0) Mean Corpuscular Volume 77 fL (79-100) Mean Corpuscular Hemoglobin 24 pg (25-35) Mean Corpuscular Hemoglobin Concent 31 g/dL (31-37) Red Cell Distribution Width 24.1 % (11.5-14.5) Platelet Count 340 x10^3/uL (140-400) Neutrophils (%) (Auto) 86 % (31-73) Lymphocytes (%) (Auto) 7 % (24-48) Monocytes (%) (Auto) 6 % (0-9) Eosinophils (%) (Auto) 1 % (0-3) Basophils (%) (Auto) 0 % (0-3) Neutrophils # (Auto) 11.7 x10^3uL (1.8-7.7) Lymphocytes # (Auto) 1.0 x10^3/uL (1.0-4.8) Monocytes # (Auto) 0.8 x10^3/uL (0.0-1.1) Eosinophils # (Auto) 0.1 x10^3/uL (0.0-0.7) Basophils # (Auto) 0.0 x10^3/uL (0.0-0.2) Sodium Level 144 mmol/L (136-145) Potassium Level 3.9 mmol/L (3.5-5.1) Chloride Level 107 mmol/L (98-107) Carbon Dioxide Level 28 mmol/L (21-32) Anion Gap 9 (6-14) Blood Urea Nitrogen 30 mg/dL (7-20) Creatinine 0.6 mg/dL (0.6-1.0) Estimated GFR (Cockcroft-Gault) 117.9 BUN/Creatinine Ratio 50 (6-20) Glucose Level 209 mg/dL (70-99) Calcium Level 8.6 mg/dL (8.5-10.1) Phosphorus Level 3.6 mg/dL (2.6-4.7) Magnesium Level 1.8 mg/dL (1.8-2.4) Total Bilirubin 0.3 mg/dL (0.2-1.0) Aspartate Amino Transf (AST/SGOT) 34 U/L (15-37) Alanine Aminotransferase (ALT/SGPT) 58 U/L (14-59) Alkaline Phosphatase 118 U/L (46-116) Total Protein 6.3 g/dL (6.4-8.2) Albumin 1.9 g/dL (3.4-5.0) Albumin/Globulin Ratio 0.4 (1.0-1.7) Triglycerides Level 145 mg/dL (0-150) Review of Systems Review of Systems Sleepy hence limited ROS Comment Review of Relevant I have reviewed the following items abdifatah (where applicable) has been applied. Labs Laboratory Tests Test 01/08/19 12:02 01/08/19 17:41 01/09/19 00:01 01/09/19 05:00 Glucose (Fingerstick) 295 mg/dL (70-99) 191 mg/dL (70-99) 165 mg/dL (70-99) White Blood Count 11.6 x10^3/uL (4.0-11.0) Red Blood Count 3.14 x10^6/uL (3.50-5.40) Hemoglobin 7.3 g/dL (12.0-15.5) Hematocrit 24.0 % (36.0-47.0) Mean Corpuscular Volume 77 fL (79-100) Mean Corpuscular Hemoglobin 23 pg (25-35) Mean Corpuscular Hemoglobin Concent 31 g/dL (31-37) Red Cell Distribution Width 24.6 % (11.5-14.5) Platelet Count 308 x10^3/uL (140-400) Neutrophils (%) (Auto) 82 % (31-73) Lymphocytes (%) (Auto) 9 % (24-48) Monocytes (%) (Auto) 7 % (0-9) Eosinophils (%) (Auto) 1 % (0-3) Basophils (%) (Auto) 1 % (0-3) Neutrophils # (Auto) 9.5 x10^3uL (1.8-7.7) Lymphocytes # (Auto) 1.0 x10^3/uL (1.0-4.8) Monocytes # (Auto) 0.8 x10^3/uL (0.0-1.1) Eosinophils # (Auto) 0.1 x10^3/uL (0.0-0.7) Basophils # (Auto) 0.1 x10^3/uL (0.0-0.2) Test 01/09/19 06:20 01/09/19 11:47 01/09/19 18:15 01/10/19 00:47 Glucose (Fingerstick) 179 mg/dL (70-99) 182 mg/dL (70-99) 132 mg/dL (70-99) 168 mg/dL (70-99) Test 01/10/19 06:30 01/10/19 08:45 Glucose (Fingerstick) 177 mg/dL (70-99) White Blood Count 13.6 x10^3/uL (4.0-11.0) Red Blood Count 3.29 x10^6/uL (3.50-5.40) Hemoglobin 7.7 g/dL (12.0-15.5) Hematocrit 25.2 % (36.0-47.0) Mean Corpuscular Volume 77 fL (79-100) Mean Corpuscular Hemoglobin 24 pg (25-35) Mean Corpuscular Hemoglobin Concent 31 g/dL (31-37) Red Cell Distribution Width 24.1 % (11.5-14.5) Platelet Count 340 x10^3/uL (140-400) Neutrophils (%) (Auto) 86 % (31-73) Lymphocytes (%) (Auto) 7 % (24-48) Monocytes (%) (Auto) 6 % (0-9) Eosinophils (%) (Auto) 1 % (0-3) Basophils (%) (Auto) 0 % (0-3) Neutrophils # (Auto) 11.7 x10^3uL (1.8-7.7) Lymphocytes # (Auto) 1.0 x10^3/uL (1.0-4.8) Monocytes # (Auto) 0.8 x10^3/uL (0.0-1.1) Eosinophils # (Auto) 0.1 x10^3/uL (0.0-0.7) Basophils # (Auto) 0.0 x10^3/uL (0.0-0.2) Sodium Level 144 mmol/L (136-145) Potassium Level 3.9 mmol/L (3.5-5.1) Chloride Level 107 mmol/L (98-107) Carbon Dioxide Level 28 mmol/L (21-32) Anion Gap 9 (6-14) Blood Urea Nitrogen 30 mg/dL (7-20) Creatinine 0.6 mg/dL (0.6-1.0) Estimated GFR (Cockcroft-Gault) 117.9 BUN/Creatinine Ratio 50 (6-20) Glucose Level 209 mg/dL (70-99) Calcium Level 8.6 mg/dL (8.5-10.1) Phosphorus Level 3.6 mg/dL (2.6-4.7) Magnesium Level 1.8 mg/dL (1.8-2.4) Total Bilirubin 0.3 mg/dL (0.2-1.0) Aspartate Amino Transf (AST/SGOT) 34 U/L (15-37) Alanine Aminotransferase (ALT/SGPT) 58 U/L (14-59) Alkaline Phosphatase 118 U/L (46-116) Total Protein 6.3 g/dL (6.4-8.2) Albumin 1.9 g/dL (3.4-5.0) Albumin/Globulin Ratio 0.4 (1.0-1.7) Triglycerides Level 145 mg/dL (0-150) Laboratory Tests Test 01/09/19 11:47 01/09/19 18:15 01/10/19 00:47 01/10/19 06:30 Glucose (Fingerstick) 182 mg/dL (70-99) 132 mg/dL (70-99) 168 mg/dL (70-99) 177 mg/dL (70-99) Test 01/10/19 08:45 White Blood Count 13.6 x10^3/uL (4.0-11.0) Red Blood Count 3.29 x10^6/uL (3.50-5.40) Hemoglobin 7.7 g/dL (12.0-15.5) Hematocrit 25.2 % (36.0-47.0) Mean Corpuscular Volume 77 fL (79-100) Mean Corpuscular Hemoglobin 24 pg (25-35) Mean Corpuscular Hemoglobin Concent 31 g/dL (31-37) Red Cell Distribution Width 24.1 % (11.5-14.5) Platelet Count 340 x10^3/uL (140-400) Neutrophils (%) (Auto) 86 % (31-73) Lymphocytes (%) (Auto) 7 % (24-48) Monocytes (%) (Auto) 6 % (0-9) Eosinophils (%) (Auto) 1 % (0-3) Basophils (%) (Auto) 0 % (0-3) Neutrophils # (Auto) 11.7 x10^3uL (1.8-7.7) Lymphocytes # (Auto) 1.0 x10^3/uL (1.0-4.8) Monocytes # (Auto) 0.8 x10^3/uL (0.0-1.1) Eosinophils # (Auto) 0.1 x10^3/uL (0.0-0.7) Basophils # (Auto) 0.0 x10^3/uL (0.0-0.2) Sodium Level 144 mmol/L (136-145) Potassium Level 3.9 mmol/L (3.5-5.1) Chloride Level 107 mmol/L (98-107) Carbon Dioxide Level 28 mmol/L (21-32) Anion Gap 9 (6-14) Blood Urea Nitrogen 30 mg/dL (7-20) Creatinine 0.6 mg/dL (0.6-1.0) Estimated GFR (Cockcroft-Gault) 117.9 BUN/Creatinine Ratio 50 (6-20) Glucose Level 209 mg/dL (70-99) Calcium Level 8.6 mg/dL (8.5-10.1) Phosphorus Level 3.6 mg/dL (2.6-4.7) Magnesium Level 1.8 mg/dL (1.8-2.4) Total Bilirubin 0.3 mg/dL (0.2-1.0) Aspartate Amino Transf (AST/SGOT) 34 U/L (15-37) Alanine Aminotransferase (ALT/SGPT) 58 U/L (14-59) Alkaline Phosphatase 118 U/L (46-116) Total Protein 6.3 g/dL (6.4-8.2) Albumin 1.9 g/dL (3.4-5.0) Albumin/Globulin Ratio 0.4 (1.0-1.7) Triglycerides Level 145 mg/dL (0-150) Microbiology 01/01/19 Blood Culture - Final, Complete NO GROWTH AFTER 5 DAYS 12/25/18 - Final, Complete 12/25/18 - Final, Complete 12/25/18 - Final, Complete 12/25/18 - Final, Complete 12/25/18 Gram Stain Evaluation - Final, Complete 12/25/18 Sputum Culture - Final, Complete 12/25/18 Sputum Result 1 - Final, Complete Medications Current Medications Sodium Chloride 1,000 ml @ 1,000 mls/hr 1X ONCE IV Last administered on 13:52; Start 12/14/18 at 13:30; Stop 12/14/18 at 14:29; Status DC Amlodipine Besylate (Norvasc) 10 mg DAILY PO Last administered on 01/07/19 08: 45; Start 12/14/18 at 17:00 Chlorhexidine Gluconate (Peridex) 15 ml BID MM Last administered on 01/09/19 21:27; Start 12/14/18 at 21:00 Non-Formulary Medication (Albuterol Sulfate (Ventolin Hfa Inhaler)) 2 puff Q4HRS INH ; Start 12/14/18 at 20:00; Status UNV Ascorbic Acid (Vitamin C) 500 mg DAILY PO Last administered on 12/22/18 10:30; Start 12/14/18 at 17:00 Duloxetine HCl (Cymbalta) 90 mg DAILY PO Last administered on 01/07/19 08:48; Start 12/14/18 at 17:00 Ferrous Sulfate (Feosol) 325 mg DAILYWBKFT PO Last administered on 12/22/18 10: 30; Start 12/14/18 at 17:00 Losartan Potassium (Cozaar) 100 mg DAILY PO Last administered on 12/22/18 10:29 ; Start 12/14/18 at 17:00 Memantine (Namenda) 10 mg BID PO Last administered on 01/07/19 08:45; Start at 21:00 Pantoprazole Sodium (Protonix) 40 mg DAILYAC PO Last administered on 12/22/18 05:28; Start 12/14/18 at 17:00; Stop 12/24/18 at 09:25; Status DC Ropinirole HCl (Requip) 3 mg QHS PO Last administered on 01/07/19 20:26; Start 12/14/18 at 21:00 Spironolactone (Aldactone) 25 mg DAILY PO Last administered on 01/07/19at 08:45 ; Start 12/14/18 at 17:00 Albuterol Sulfate (Ventolin Neb Soln) 2.5 mg Q4HRS NEB Last administered on at 06:52; Start 12/14/18 at 20:00; Stop 01/02/19 at 07:24; Status DC Sodium Chloride 1,000 ml @ 80 mls/hr [id number] IV Last administered on 12/23/18at 15:25; Start 12/14/18 at 17:15; Stop 12/23/18 at 21:59; Status DC Acetaminophen (Tylenol) 650 mg PRN Q6HRS PRN PO Pain Last administered on at 21:27; Start 12/15/18 at 04:45; Stop 12/26/18 at 21:07; Status DC Polyethylene Glycol (miraLAX Powder BULK BOTTLE) 238 gm 1X ONCE PO Last administered on 12/15/18at 12:48; Start 12/15/18 at 12:00; Stop 12/15/18 at 12:01 ; Status DC Ondansetron HCl (Zofran) 4 mg PRN Q6HRS PRN IV NAUSEA/VOMITING; Start 12/16/18 at 07:00; Stop 12/17/18 at 06:59; Status DC Fentanyl Citrate (Fentanyl 2ml Vial) 25 mcg PRN Q5MIN PRN IV MILD PAIN; Start 12/16/18 at 07:00; Stop 12/16/18 at 16:33; Status DC Fentanyl Citrate (Fentanyl 2ml Vial) 50 mcg PRN Q5MIN PRN IV MODERATE TO SEVERE PAIN; Start 12/16/18 at 07:00; Stop 12/16/18 at 16:33; Status DC Morphine Sulfate (Morphine Sulfate) 1 mg PRN Q10MIN PRN IV SEVERE PAIN; Start 12/16/18 at 07:00; Stop 12/17/18 at 06:59; Status DC Ringer's Solution 1,000 ml @ 30 mls/hr Q24H IV Last administered on 12/16/18at 13:00; Start 12/16/18 at 07:00; Stop 12/16/18 at 18:59; Status DC Lidocaine HCl (Xylocaine-Mpf 1% 2ml Vial) 2 ml PRN 1X PRN ID IV START; Start at 07:00; Stop 12/17/18 at 06:59; Status DC Hydromorphone HCl (Dilaudid) 0.5 mg PRN Q10MIN PRN IV SEV PAIN, Second choice; Start 12/16/18 at 07:00; Stop 12/17/18 at 06:59; Status DC Prochlorperazine Edisylate (Compazine) 5 mg PACU PRN PRN IV NAUSEA, MRX1; Start 12/16/18 at 07:00; Stop 12/17/18 at 06:59; Status DC Midazolam HCl (Versed) 2 mg PRN 1X PRN IV PRIOR TO PROCEDURE; Start 12/16/18 at 07:15; Stop 12/17/18 at 07:14; Status DC Fentanyl Citrate (Fentanyl 2ml Vial) 25 mcg PRN Q5MIN PRN IV X 2 DOSES FOR PAIN ; Start 12/16/18 at 07:15; Stop 12/16/18 at 16:33; Status DC Fentanyl Citrate (Fentanyl 2ml Vial) 50 mcg PRN Q5MIN PRN IV X 2 DOSES FOR PAIN ; Start 12/16/18 at 07:15; Stop 12/16/18 at 16:34; Status DC Ringer's Solution 1,000 ml @ 125 mls/hr Q8H IV ; Start 12/16/18 at 07:13; Stop 12/16/18 at 19:12; Status DC Lidocaine HCl (Xylocaine-Mpf 1% 2ml Vial) 2 ml 1X PRN PRN ID IV START; Start at 07:15; Stop 12/17/18 at 07:14; Status DC Propofol 40 ml @ As Directed STK-MED ONCE IV ; Start 12/16/18 at 13:58; Stop at 14:00; Status DC Prochlorperazine Edisylate (Compazine) 5 mg PACU PRN PRN IV NAUSEA, MRX1; Start 12/17/18 at 07:00; Stop 12/18/18 at 06:59; Status DC Hydromorphone HCl (Dilaudid) 0.5 mg PRN Q10MIN PRN IV SEV PAIN, Second choice; Start 12/17/18 at 07:00; Stop 12/18/18 at 06:59; Status DC Lidocaine HCl (Xylocaine-Mpf 1% 2ml Vial) 2 ml PRN 1X PRN ID IV START; Start at 07:00; Stop 12/18/18 at 06:59; Status DC Ringer's Solution 1,000 ml @ 30 mls/hr Q24H IV Last administered on 12/17/18at 10:34; Start 12/17/18 at 07:00; Stop 12/17/18 at 18:59; Status DC Morphine Sulfate (Morphine Sulfate) 1 mg PRN Q10MIN PRN IV SEVERE PAIN; Start 12/17/18 at 07:00; Stop 12/18/18 at 06:59; Status DC Fentanyl Citrate (Fentanyl 2ml Vial) 50 mcg PRN Q5MIN PRN IV MODERATE TO SEVERE PAIN Last administered on 12/17/18at 11:13; Start 12/17/18 at 07:00; Stop at 06:59; Status DC Fentanyl Citrate (Fentanyl 2ml Vial) 25 mcg PRN Q5MIN PRN IV MILD PAIN; Start 12/17/18 at 07:00; Stop 12/18/18 at 06:59; Status DC Ondansetron HCl (Zofran) 4 mg PRN Q6HRS PRN IV NAUSEA/VOMITING; Start 12/17/18 at 07:00; Stop 12/18/18 at 06:59; Status DC Propofol 20 ml @ As Directed STK-MED ONCE IV ; Start 12/17/18 at 07:21; Stop 12/17 at 07:23; Status DC Albuterol Sulfate (Ventolin Neb Soln) 2.5 mg 1X ONCE NEB ; Start 12/17/18 at 07: 30; Stop 12/17/18 at 07:31; Status DC Lidocaine HCl (Lidocaine Pf 2% Vial) 5 ml STK-MED ONCE .ROUTE ; Start 12/17/18 at 07:21; Stop 12/17/18 at 07:23; Status DC Succinylcholine Chloride (Anectine) 200 mg STK-MED ONCE .ROUTE ; Start 12/17/18 at 07:21; Stop 12/17/18 at 07:23; Status DC Rocuronium [place] (Zemuron) 50 mg STK-MED ONCE .ROUTE ; Start 12/17/18 at 07:21 ; Stop 12/17/18 at 07:23; Status DC Fentanyl Citrate (Fentanyl 2ml Vial) 100 mcg STK-MED ONCE .ROUTE ; Start at 07:21; Stop 12/17/18 at 07:24; Status DC Cefazolin Sodium/ Dextrose 50 ml @ 100 mls/hr 1X ONCE IV Last administered on 12/17/18at 08:07; Start 12/17/18 at 07:45; Stop 12/17/18 at 08:18; Status DC Bupivacaine HCl/ Epinephrine Bitart (Sensorcain-Mpf Epi 0.5%-1:431014) 30 ml STK -MED ONCE .ROUTE Last administered on 12/17/18at 08:34; Start 12/17/18 at 07:46; Stop 12/17/18 at 07:49; Status DC Neomycin/ Polymyxin/ Bacitracin (Triple Antibiotic Ointment) 1 pkt STK-MED ONCE TP Last administered on 12/17/18at 10:07; Start 12/17/18 at 07:46; Stop 12/17/18 at 07:49; Status DC Neomycin/ Polymyxin/ Bacitracin (Triple Antibiotic Ointment) 1 pkt STK-MED ONCE TP Last administered on 12/17/18at 10:07; Start 12/17/18 at 07:46; Stop 12/17/18 at 07:49; Status DC Neomycin/ Polymyxin/ Bacitracin (Triple Antibiotic Ointment) 1 pkt STK-MED ONCE TP ; Start 12/17/18 at 07:47; Stop 12/17/18 at 07:49; Status DC Dexamethasone Sodium Phosphate (Decadron) 20 mg STK-MED ONCE .ROUTE ; Start 12/17 at 07:54; Stop 12/17/18 at 07:56; Status DC Hydrocortisone Sodium Succinate (Solu-CORTEF) 100 mg STK-MED ONCE .ROUTE ; Start 12/17/18 at 07:54; Stop 12/17/18 at 07:56; Status DC Desflurane (Suprane) 90 ml STK-MED ONCE IH ; Start 12/17/18 at 07:54; Stop at 07:56; Status DC Neostigmine Methylsulfate (Bloxiverz) 10 mg STK-MED ONCE .ROUTE ; Start 12/17/18 at 08:21; Stop 12/17/18 at 08:24; Status DC Glycopyrrolate (Robinul) 1 mg STK-MED ONCE .ROUTE ; Start 12/17/18 at 08:21; Stop 12/17/18 at 08:24; Status DC Phenylephrine HCl (Bogdan-Synephrine Inj) 10 mg STK-MED ONCE .ROUTE ; Start at 08:23; Stop 12/17/18 at 08:26; Status DC Desflurane (Suprane) 60 ml STK-MED ONCE IH ; Start 12/17/18 at 09:23; Stop at 09:26; Status DC Bupivacaine HCl/ Epinephrine Bitart (Sensorcain-Mpf Epi 0.5%-1:[id number]) 30 ml STK -MED ONCE .ROUTE Last administered on 12/17/18at 10:06; Start 12/17/18 at 09:41; Stop 12/17/18 at 09:43; Status DC Morphine Sulfate (Morphine Sulfate) 2 mg PRN Q2HR PRN IV PAIN Last administered on 12/25/18at 09:26; Start 12/17/18 at 10:15; Stop 12/25/18 at 17:54; Status DC Ketorolac Tromethamine (Toradol 15mg Vial) 15 mg Q6HRS IV Last administered on 12/18/18at 05:39; Start 12/17/18 at 12:00; Stop 12/18/18 at 10:00; Status DC Artificial Tears (Artificial Tears) 1 drop PRN Q15MIN PRN OU DRY EYE Last administered on 12/20/18at 21:28; Start 12/18/18 at 08:00 Docusate Sodium (Colace) 100 mg DAILY PO Last administered on 01/07/19 08:45; Start 12/18/18 at 10:00 Throat Lozenges (Cepacol Sore Throat Lozenge) 1 kristyn PRN Q2HRS PRN PO SORE THROAT Last administered on 01/09/19at 16:05; Start 12/18/18 at 14:00 Enoxaparin Sodium (Lovenox 40mg Syringe) 40 mg Q24H SQ Last administered on at 08:41; Start 12/19/18 at 09:00 Ondansetron HCl (Zofran) 4 mg PRN Q6HRS PRN IV NAUSEA/VOMITING Last administered on 01/09/19 23:44; Start 12/19/18 at 11:30 Insulin Human Lispro (HumaLOG) 0-5 UNITS TIDWMEALS SQ Last administered on 12/30 18:23; Start 12/19/18 at 17:00; Stop 12/31/18 at 00:05; Status DC Dextrose (Dextrose 50%-Water Syringe) 12.5 gm PRN Q15MIN PRN IV SEE COMMENTS; Start 12/19/18 at 16:45 Levofloxacin/ Dextrose 100 ml @ 100 mls/hr 1X ONCE IV Last administered on 20:56; Start 12/19/18 at 21:00; Stop 12/19/18 at 21:59; Status DC Cefepime HCl (Maxipime) 2 gm Q12HR IVP Last administered on 12/29/18 10:02; Start 12/21/18 at 10:00; Stop 12/29/18 at 10:37; Status DC Sodium Chloride 1,000 ml @ 125 mls/hr 1X ONCE IV Last administered on 10:43; Start 12/21/18 at 09:45; Stop 12/21/18 at 17:44; Status DC Calcium Carbonate/ Glycine (Tums) 500 mg PRN AFTMEALHC PRN PO INDIGESTION Last administered on 12/21/18 13:10; Start 12/21/18 at 12:15 Lorazepam (Ativan) 1 mg 1X ONCE IV Last administered on 12/21/18 17:50; Start 12/21/18 at 17:30; Stop 12/21/18 at 17:31; Status DC Albuterol Sulfate (Ventolin Neb Soln) 2.5 mg PRN Q2HRS PRN NEB SHORTNESS OF BREATH Last administered on 01/07/19 12:45; Start 12/21/18 at 17:30 Nicotine (Nicoderm Cq 14mg) 1 patch PRN DAILY PRN TD SMOKING CESSATION Last administered on 12/26/18 09:59; Start 12/21/18 at 19:30 Lorazepam (Ativan) 1 mg 1X ONCE IV Last administered on 12/21/18 23:45; Start 12/21/18 at 23:45; Stop 12/21/18 at 23:46; Status DC Lorazepam (Ativan) 1 mg PRN Q4HRS PRN IV ANXIETY / AGITATION Last administered on 12/22/18 11:15; Start 12/21/18 at 23:30; Stop 12/22/18 at 14:42; Status DC Sodium Chloride 1,000 ml @ 250 mls/hr 1X ONCE IV Last administered on 09:15; Start 12/22/18 at 09:15; Stop 12/22/18 at 13:14; Status DC Lidocaine/Sodium Bicarbonate (Buffered Lidocaine 1%) 3 ml STK-MED ONCE .ROUTE ; Start 12/23/18 at 10:33; Stop 12/23/18 at 10:35; Status DC Lidocaine/Sodium Bicarbonate (Buffered Lidocaine 1%) 3 ml 1X ONCE INJ Last administered on 12/23/18 11:24; Start 12/23/18 at 11:00; Stop 12/23/18 at 11:10; Status DC Info (Tpn Per Pharmacy) 1 each PRN DAILY PRN MC SEE COMMENTS Last administered on 01/09/19 13:02; Start 12/23/18 at 14:00 Sodium Chloride 90 meq/Potassium Chloride 50 meq/ Potassium Phosphate 20.4 mmol/ Magnesium Sulfate 18 meq/ Calcium Gluconate 5 meq/ Multivitamins 10 ml/Chromium / Copper/Manganese/ Seleni/Zn 1 ml/ Total Parenteral Nutrition/Amino Acids/ Dextrose/ Fat Emulsion Intravenous 1,512 ml @ 63 mls/hr TPN CONT IV Last administered on 12/23/18 21:37; Start 12/23/18 at 22:00; Stop 12/24/18 at 21:59; Status DC Alprazolam (Xanax) 0.25 mg PRN BID PRN PO ANXIETY / AGITATION Last administered on 12/25/18 09:25; Start 12/23/18 at 23:00; Stop 12/25/18 at 17:54; Status DC Lorazepam (Ativan) 1 mg PRN Q4HRS PRN IV ANXIETY / AGITATION Last administered on 12/24/18 09:21; Start 12/24/18 at 08:45; Stop 12/24/18 at 10:19; Status DC Pantoprazole Sodium (PROTONIX VIAL for IV PUSH) 40 mg DAILYAC IVP Last administered on 01/10/19 08:27; Start 12/24/18 at 09:30 Lorazepam (Ativan) 0.5 mg PRN Q4HRS PRN IV ANXIETY / AGITATION Last administered on 12/25/18 04:47; Start 12/24/18 at 10:30; Stop 12/25/18 at 10:22; Status DC Sodium Chloride 45 meq/Sodium Acetate 45 meq/ Potassium Chloride 50 meq/ Potassium Phosphate 20.4 mmol/Magnesium Sulfate 18 meq/ Calcium Gluconate 5 meq / Multivitamins 10 ml/Chromium/ Copper/Manganese/ Seleni/Zn 1 ml/ Total Parenteral Nutrition/Amino Acids/Dextrose/ Fat Emuls... 1,512 ml @ 63 mls/hr TPN CONT IV Last administered on 12/24/18 21:57; Start 12/24/18 at 22:00; Stop 12/25/18 at 21:59; Status DC Phenyleph/Shark Oil/Min Oil/Petrol (Preparation H) 1 ranjith PRN Q4HRS PRN RC RECTAL PAIN; Start 12/24/18 at 12:45; Stop 12/25/18 at 20:20; Status DC Sodium Chloride 45 meq/Sodium Acetate 45 meq/ Potassium Chloride 50 meq/ Potassium Phosphate 20.4 mmol/Magnesium Sulfate 18 meq/ Calcium Gluconate 5 meq / Multivitamins 10 ml/Chromium/ Copper/Manganese/ Seleni/Zn 1 ml/ Total Parenteral Nutrition/Amino Acids/Dextrose/ Fat Emuls... 1,512 ml @ 63 mls/hr TPN CONT IV Last administered on 12/26/18at 00:34; Start 12/25/18 at 22:00; Stop 12/26/18 at 21:59; Status DC Neomycin/ Polymyxin/ Bacitracin (Triple Antibiotic Ointment) 1 pkt PRN TID PRN TP skin around rectum, post op Last administered on 01/05/19at 08:07; Start at 14:30 Alprazolam (Xanax) 0.25 mg PRN Q8HRS PRN PO ANXIETY / AGITATION Last administered on 01/07/19at 13:01; Start 12/25/18 at 18:00 Morphine Sulfate (Morphine Sulfate) 2 mg PRN Q6HRS PRN IV PAIN Last administered on 12/29/18at 21:47; Start 12/25/18 at 18:00; Stop 12/30/18 at 03:17 ; Status DC Guaifenesin (Mucinex) 600 mg BID PO Last administered on 12/26/18at 21:26; Start 12/26/18 at 11:00 Guaifenesin (Mucinex) 600 mg BID PO ; Start 12/26/18 at 11:00; Status UNV Guaifenesin/ Codeine Phosphate (Robitussin Ac) 5 ml PRN Q6HRS PRN PO COUGH Last administered on 12/26/18at 10:41; Start 12/26/18 at 10:30 Sodium Acetate 90 meq/Potassium Chloride 50 meq/ Potassium Phosphate 13.6 mmol/ Magnesium Sulfate 18 meq/ Calcium Gluconate 5 meq/ Multivitamins 10 ml/Chromium / Copper/Manganese/ Seleni/Zn 1 ml/ Total Parenteral Nutrition/Amino Acids/ Dextrose/ Fat Emulsion Intravenous 1,512 ml @ 63 mls/hr TPN CONT IV Last administered on 12/26/18at 21:37; Start 12/26/18 at 22:00; Stop 12/28/18 at 01:28 ; Status DC Benzocaine (Hurricaine One) 1 spray 1X ONCE MM ; Start 12/26/18 at 19:15; Stop 12/26/18 at 19:16; Status DC Acetaminophen (Tylenol) 650 mg PRN Q6HRS PRN PO MILD PAIN / TEMP Last administered on 12/27/18at 04:39; Start 12/26/18 at 21:00 Benzocaine (Hurricaine One) 1 spray 1X ONCE MM Last administered on 12/27/18at 09:00; Start 12/27/18 at 09:15; Stop 12/27/18 at 09:16; Status DC Sodium Acetate 90 meq/Potassium Chloride 50 meq/ Potassium Phosphate 13.6 mmol/ Magnesium Sulfate 15 meq/ Calcium Gluconate 5 meq/ Multivitamins 10 ml/Chromium / Copper/Manganese/ Seleni/Zn 1 ml/ Total Parenteral Nutrition/Amino Acids/ Dextrose/ Fat Emulsion Intravenous 1,512 ml @ 63 mls/hr TPN CONT IV ; Start at 22:00; Stop 12/28/18 at 21:59; Status Cancel Sodium Acetate 90 meq/Potassium Chloride 50 meq/ Potassium Phosphate 13.6 mmol/ Magnesium Sulfate 15 meq/ Calcium Gluconate 5 meq/ Multivitamins 10 ml/Chromium / Copper/Manganese/ Seleni/Zn 1 ml/ Total Parenteral Nutrition/Amino Acids/ Dextrose/ Fat Emulsion Intravenous 1,512 ml @ 63 mls/hr TPN CONT IV ; Start at 22:00; Stop 12/28/18 at 21:59; Status DC Lidocaine/Sodium Bicarbonate (Buffered Lidocaine 1%) 3 ml 1X ONCE INJ ; Start 12/28/18 at 09:00; Stop 12/28/18 at 09:01; Status Cancel Benzocaine (Hurricaine One) 1 spray 1X ONCE MM Last administered on 12/28/18at 09:32; Start 12/28/18 at 09:30; Stop 12/28/18 at 09:33; Status DC Sodium Acetate 90 meq/Potassium Chloride 50 meq/ Potassium Phosphate 13.6 mmol/ Magnesium Sulfate 15 meq/ Calcium Gluconate 5 meq/ Multivitamins 10 ml/Chromium / Copper/Manganese/ Seleni/Zn 1 ml/ Total Parenteral Nutrition/Amino Acids/ Dextrose/ Fat Emulsion Intravenous 1,512 ml @ 63 mls/hr TPN CONT IV Last administered on 12/28/18at 22:06; Start 12/28/18 at 22:00; Stop 12/29/18 at 21:59 ; Status DC Iohexol (Omnipaque 300 Mg/ml) 400 ml 1X ONCE PO Last administered on at 08:15; Start 12/29/18 at 06:45; Stop 12/29/18 at 06:46; Status DC Info (CONTRAST GIVEN -- Rx MONITORING) 1 each PRN DAILY PRN MC SEE COMMENTS; Start 12/29/18 at 06:45; Stop 12/31/18 at 06:44; Status DC Iohexol (Omnipaque 300 Mg/ml) 400 ml 1X ONCE PO ; Start 12/29/18 at 07:00; Stop 12/29/18 at 07:03; Status DC Info (CONTRAST GIVEN -- Rx MONITORING) 1 each PRN DAILY PRN MC SEE COMMENTS; Start 12/29/18 at 07:15; Stop 12/31/18 at 07:14; Status DC Meropenem 500 mg/ Sodium Chloride 50 ml @ 100 mls/hr Q6HRS IV Last administered on 01/07/19at 06:05; Start 12/29/18 at 12:00; Stop 01/07/19 at 08:34 ; Status DC Multi-Ingredient Ointment (Analgesic [place]) 1 ranjith PRN QID PRN TP MUSCLE PAIN Last administered on 12/29/18at 14:40; Start 12/29/18 at 13:00 Sodium Acetate 90 meq/Potassium Chloride 50 meq/ Potassium Phosphate 13.6 mmol/ Magnesium Sulfate 15 meq/ Calcium Gluconate 5 meq/ Multivitamins 10 ml/Chromium / Copper/Manganese/ Seleni/Zn 1 ml/ Total Parenteral Nutrition/Amino Acids/ Dextrose/ Fat Emulsion Intravenous 1,512 ml @ 63 mls/hr TPN CONT IV Last administered on 12/29/18at 21:40; Start 12/29/18 at 22:00; Stop 12/30/18 at 21:59 ; Status DC Morphine Sulfate (Morphine Sulfate) 2 mg PRN Q4HRS PRN IV SEVERE PAIN Last administered on 12/30/18at 19:50; Start 12/30/18 at 03:30; Stop 12/30/18 at 21:33 ; Status DC Propofol 20 ml @ As Directed STK-MED ONCE IV ; Start 12/30/18 at 12:51; Stop at 12:52; Status DC Dexamethasone Sodium Phosphate (Decadron) 20 mg STK-MED ONCE .ROUTE ; Start at 12:51; Stop 12/30/18 at 12:52; Status DC Lidocaine HCl (Lidocaine Pf 2% Vial) 5 ml STK-MED ONCE .ROUTE ; Start 12/30/18 at 12:51; Stop 12/30/18 at 12:52; Status DC Ondansetron HCl (Zofran) 4 mg STK-MED ONCE .ROUTE ; Start 12/30/18 at 12:51; Stop 12/30/18 at 12:52; Status DC Rocuronium [place] (Zemuron) 50 mg STK-MED ONCE .ROUTE ; Start 12/30/18 at 12:51 ; Stop 12/30/18 at 12:52; Status DC Succinylcholine Chloride (Anectine) 200 mg STK-MED ONCE .ROUTE ; Start 12/30/18 at 12:51; Stop 12/30/18 at 12:52; Status DC Fentanyl Citrate (Fentanyl 5ml Vial) 250 mcg STK-MED ONCE .ROUTE ; Start at 13:49; Stop 12/30/18 at 13:50; Status DC Sodium Chloride 90 meq/Potassium Chloride 50 meq/ Potassium Phosphate 13.6 mmol/ Magnesium Sulfate 15 meq/ Multivitamins 10 ml/Chromium/ Copper/Manganese/ Seleni /Zn 1 ml/ Total Parenteral Nutrition/Amino Acids/Dextrose/ Fat Emulsion Intravenous 1,512 ml @ 63 mls/hr TPN CONT IV Last administered on 12/30/18at 23:43; Start 12/30/18 at 22:00; Stop 12/31/18 at 21:59; Status DC Vasopressin (Vasostrict) 20 unit STK-MED ONCE .ROUTE ; Start 12/30/18 at 15:00; Stop 12/30/18 at 15:01; Status DC Sodium Chloride (SODIUM CHLORIDE 20ml) 20 ml STK-MED ONCE IJ ; Start 12/30/18 at 15:01; Stop 12/30/18 at 15:02; Status DC Albumin Human 500 ml @ As Directed STK-MED ONCE IV ; Start 12/30/18 at 15:01; Stop 12/30/18 at 15:02; Status DC Glycopyrrolate (Robinul) 1 mg STK-MED ONCE .ROUTE ; Start 12/30/18 at 15:21; Stop 12/30/18 at 15:22; Status DC Neostigmine Methylsulfate (Bloxiverz) 10 mg STK-MED ONCE .ROUTE ; Start at 15:21; Stop 12/30/18 at 15:22; Status DC Albuterol/ Ipratropium (Duoneb) 3 ml STK-MED ONCE .ROUTE ; Start 12/30/18 at 15: 45; Stop 12/30/18 at 15:46; Status DC Fentanyl Citrate (Fentanyl 2ml Vial) 100 mcg STK-MED ONCE .ROUTE ; Start at 16:56; Stop 12/30/18 at 16:57; Status DC Ondansetron HCl (Zofran) 4 mg PRN Q6HRS PRN IV NAUSEA/VOMITING; Start 12/30/18 at 17:15; Stop 12/30/18 at 21:35; Status DC Fentanyl Citrate (Fentanyl 2ml Vial) 25 mcg PRN Q5MIN PRN IV MILD PAIN Last administered on 12/30/18at 17:15; Start 12/30/18 at 17:15; Stop 12/30/18 at 21:35 ; Status DC Fentanyl Citrate (Fentanyl 2ml Vial) 50 mcg PRN Q5MIN PRN IV MODERATE TO SEVERE PAIN Last administered on 12/30/18at 17:57; Start 12/30/18 at 17:15; Stop 12/30/18 at 21:35; Status DC Morphine Sulfate (Morphine Sulfate) 1 mg PRN Q10MIN PRN IV SEVERE PAIN; Start 12/30/18 at 17:15; Stop 12/31/18 at 17:14; Status DC Ringer's Solution 1,000 ml @ 30 mls/hr Q24H IV Last administered on 12/30/18at 18:09; Start 12/30/18 at 17:10; Stop 12/30/18 at 21:33; Status DC Lidocaine HCl (Xylocaine-Mpf 1% 2ml Vial) 2 ml 1X PRN PRN ID IV START; Start at 17:15; Stop 12/30/18 at 21:35; Status DC Hydromorphone HCl (Dilaudid) 0.5 mg PRN Q10MIN PRN IV SEV PAIN, Second choice; Start 12/30/18 at 17:15; Stop 12/30/18 at 21:35; Status DC Prochlorperazine Edisylate (Compazine) 5 mg PACU PRN PRN IV NAUSEA, MRX1; Start 12/30/18 at 17:15; Stop 12/30/18 at 21:35; Status DC Albumin Human 100 ml @ 100 mls/hr 1X ONCE IV Last administered on 12/30/18at 22:00; Start 12/30/18 at 22:00; Stop 12/30/18 at 22:59; Status DC Ringer's Solution 500 ml @ 500 mls/hr 1X ONCE IV Last administered on at 22:00; Start 12/30/18 at 22:00; Stop 12/30/18 at 22:59; Status DC Ringer's Solution 1,000 ml @ 100 mls/hr Q10H IV Last administered on at 00:58; Start 12/30/18 at 23:00; Stop 01/01/19 at 09:30; Status DC Hydromorphone HCl (Dilaudid) 0.5 mg PRN Q2HR PRN IV MODERATE PAIN Last administered on 01/04/19at 10:08; Start 12/30/18 at 21:30; Stop 01/04/19 at 15:05 ; Status DC Hydromorphone HCl (Dilaudid) 1 mg PRN Q2HR PRN IV SEVERE PAIN Last administered on 01/04/19 04:51; Start 12/30/18 at 21:30; Stop 01/04/19 at 15:05 ; Status DC Insulin Human Lispro (HumaLOG) 0-5 UNITS Q6HRS SQ Last administered on 06:42; Start 12/31/18 at 00:30; Stop 01/06/19 at 12:47; Status DC Sodium Chloride 90 meq/Potassium Chloride 30 meq/ Potassium Phosphate 13.6 mmol/ Magnesium Sulfate 15 meq/ Calcium Gluconate 5 meq/ Multivitamins 10 ml/Chromium / Copper/Manganese/ Seleni/Zn 1 ml/ Total Parenteral Nutrition/Amino Acids/ Dextrose/ Fat Emulsion Intravenous 1,512 ml @ 63 mls/hr TPN CONT IV Last administered on 12/31/18at 21:58; Start 12/31/18 at 22:00; Stop 01/01/19 at 21:59 ; Status DC Sodium Chloride 90 meq/Potassium Chloride 30 meq/ Potassium Phosphate 13.6 mmol/ Magnesium Sulfate 15 meq/ Calcium Gluconate 5 meq/ Multivitamins 10 ml/Chromium / Copper/Manganese/ Seleni/Zn 1 ml/ Total Parenteral Nutrition/Amino Acids/ Dextrose/ Fat Emulsion Intravenous 1,512 ml @ 63 mls/hr TPN CONT IV Last administered on 01/01/19at 21:09; Start 01/01/19 at 22:00; Stop 01/02/19 at 21:59 ; Status DC Vancomycin HCl (Vanco Per Pharmacy) 1 each PRN DAILY PRN MC SEE COMMENTS Last administered on 01/03/19at 10:18; Start 01/01/19 at 11:15; Stop 01/03/19 at 11:23 ; Status DC Vancomycin HCl 2 gm/Sodium Chloride 500 ml @ 250 mls/hr ONCE ONCE IV Last administered on 01/01/19at 12:28; Start 01/01/19 at 12:00; Stop 01/01/19 at 13:59 ; Status DC Vancomycin HCl 1.25 gm/Sodium Chloride 250 ml @ 166.667 mls/hr Q24H IV ; Start 01/01/19 at 12:00; Status Cancel Vancomycin HCl (Vancomycin Trough Level) 1 each 1X ONCE MC ; Start 01/03/19 at 11:30; Stop 01/03/19 at 11:31; Status Cancel Vancomycin HCl 1.25 gm/Sodium Chloride 250 ml @ 166.667 mls/hr Q24H IV Last administered on 01/02/19at 13:04; Start 01/02/19 at 12:00; Stop 01/03/19 at 11:23 ; Status DC Albuterol/ Ipratropium (Duoneb) 3 ml 1X ONCE NEB Last administered on at 08:19; Start 01/02/19 at 07:30; Stop 01/02/19 at 07:31; Status DC Albuterol/ Ipratropium (Duoneb) 3 ml Q4HRS NEB Last administered on 01/10/19at 05:50; Start 01/02/19 at 12:00 Furosemide (Lasix) 20 mg 1X ONCE IVP Last administered on 01/02/19at 07:36; Start 01/02/19 at 07:30; Stop 01/02/19 at 07:31; Status DC Sodium Chloride 90 meq/Potassium Chloride 30 meq/ Potassium Phosphate 13.6 mmol/ Magnesium Sulfate 15 meq/ Calcium Gluconate 5 meq/ Multivitamins 10 ml/Chromium / Copper/Manganese/ Seleni/Zn 1 ml/ Total Parenteral Nutrition/Amino Acids/ Dextrose/ Fat Emulsion Intravenous 1,512 ml @ 63 mls/hr TPN CONT IV Last administered on 01/02/19at 21:20; Start 01/02/19 at 22:00; Stop 01/03/19 at 21:59 ; Status DC Sodium Chloride 90 meq/Potassium Chloride 30 meq/ Potassium Phosphate 13.6 mmol/ Magnesium Sulfate 15 meq/ Multivitamins 10 ml/Chromium/ Copper/Manganese/ Seleni /Zn 1 ml/ Insulin Human Regular 10 unit/ Total Parenteral Nutrition/Amino Acids/ Dextrose/ Fat Emulsion Intravenous 1,512 ml @ 63 mls/hr TPN CONT IV Last administered on 01/03/19at 22:07; Start 01/03/19 at 22:00; Stop 01/04/19 at 21:59 ; Status DC Sodium Chloride 90 meq/Potassium Chloride 30 meq/ Potassium Phosphate 13.6 mmol/ Magnesium Sulfate 15 meq/ Multivitamins 10 ml/Chromium/ Copper/Manganese/ Seleni /Zn 1 ml/ Insulin Human Regular 10 unit/ Total Parenteral Nutrition/Amino Acids/ Dextrose/ Fat Emulsion Intravenous 1,512 ml @ 63 mls/hr TPN CONT IV Last administered on 01/04/19at 22:11; Start 01/04/19 at 22:00; Stop 01/05/19 at 21:59 ; Status DC Hydromorphone HCl (Dilaudid) 0.5 mg PRN Q6HRS PRN IV MODERATE PAIN Last administered on 01/10/19 01:29; Start 01/04/19 at 15:15 Hydromorphone HCl (Dilaudid) 1 mg PRN Q6HRS PRN IV SEVERE PAIN Last administered on 01/05/19at 02:18; Start 01/04/19 at 15:15 Dextrose (Dextrose 50%-Water Syringe) 25 gm STK-MED ONCE IV ; Start 01/04/19 at 08:50; Stop 01/05/19 at 08:26; Status DC Sodium Chloride 90 meq/Potassium Chloride 30 meq/ Potassium Phosphate 13.6 mmol/ Magnesium Sulfate 15 meq/ Multivitamins 10 ml/Chromium/ Copper/Manganese/ Seleni /Zn 1 ml/ Insulin Human Regular 10 unit/ Total Parenteral Nutrition/Amino Acids/ Dextrose/ Fat Emulsion Intravenous 1,512 ml @ 63 mls/hr TPN CONT IV Last administered on 01/05/19at 21:52; Start 01/05/19 at 22:00; Stop 01/06/19 at 21:59 ; Status DC Budesonide (Pulmicort) 0.5 mg RTBID NEB Last administered on 01/10/19at 05:50; Start 01/05/19 at 12:00 Insulin Glargine (Lantus) 12 units DAILY10 SQ Last administered on 01/09/19 09 :36; Start 01/06/19 at 13:30; Stop 01/09/19 at 12:16; Status DC Sodium Chloride 40 meq/Potassium Chloride 30 meq/ Potassium Phosphate 13.6 mmol/ Magnesium Sulfate 15 meq/ Multivitamins 10 ml/Chromium/ Copper/Manganese/ Seleni /Zn 1 ml/ Insulin Human Regular 10 unit/ Total Parenteral Nutrition/Amino Acids/ Dextrose/ Fat Emulsion Intravenous 1,512 ml @ 63 mls/hr TPN CONT IV Last administered on 01/07/19at 00:36; Start 01/06/19 at 22:00; Stop 01/07/19 at 21:59 ; Status DC Insulin Human Lispro (HumaLOG) 12 units 1X ONCE SQ Last administered on at 14:18; Start 01/06/19 at 13:00; Stop 01/06/19 at 13:01; Status DC Insulin Human Lispro (HumaLOG) 0-9 UNITS Q6HRS SQ Last administered on at 12:16; Start 01/06/19 at 18:00 Insulin Human Lispro (HumaLOG) 3 units 1X ONCE SQ Last administered on at 00:33; Start 01/07/19 at 00:30; Stop 01/07/19 at 00:31; Status DC Insulin Human Lispro (HumaLOG) 20 units 1X ONCE SQ Last administered on at 12:22; Start 01/07/19 at 12:15; Stop 01/07/19 at 12:16; Status DC Insulin Human Lispro (HumaLOG) 10 units TIDAC SQ Last administered on at 08:49; Start 01/07/19 at 16:30 Sodium Chloride 40 meq/Potassium Chloride 30 meq/ Potassium Phosphate 13.6 mmol/ Magnesium Sulfate 15 meq/ Multivitamins 10 ml/Chromium/ Copper/Manganese/ Seleni /Zn 1 ml/ Insulin Human Regular 10 unit/ Total Parenteral Nutrition/Amino Acids/ Dextrose/ Fat Emulsion Intravenous 1,512 ml @ 63 mls/hr TPN CONT IV Last administered on 01/07/19at 21:45; Start 01/07/19 at 22:00; Stop 01/08/19 at 21:59 ; Status DC Insulin Human Lispro (HumaLOG) 10 units 1X ONCE SQ Last administered on at 14:19; Start 01/07/19 at 14:00; Stop 01/07/19 at 14:01; Status DC Benzocaine (Hurricaine One) 1 spray 1X ONCE MM Last administered on 01/08/19at 09:44; Start 01/08/19 at 09:30; Stop 01/08/19 at 09:31; Status DC Lorazepam (Ativan) 0.5 mg PRN Q4HRS PRN IV ANXIETY / AGITATION Last administered on 01/10/19at 08:35; Start 01/08/19 at 10:45 Sodium Chloride 40 meq/Potassium Chloride 30 meq/ Potassium Phosphate 10 mmol/ Magnesium Sulfate 15 meq/ Multivitamins 10 ml/Chromium/ Copper/Manganese/ Seleni /Zn 1 ml/ Insulin Human Regular 10 unit/ Total Parenteral Nutrition/Amino Acids/ Dextrose/ Fat Emulsion Intravenous 1,512 ml @ 63 mls/hr TPN CONT IV Last administered on 01/08/19at 22:00; Start 01/08/19 at 22:00; Stop 01/09/19 at 21:59 ; Status DC Saliva Substitute (Biotene Moisturizing Mouth) 2 spray PRN Q15MIN PRN PO DRY MOUTH Last administered on 01/08/19at 14:55; Start 01/08/19 at 14:45 Insulin Glargine (Lantus) 18 units DAILY10 SQ ; Start 01/10/19 at 10:00 Sodium Chloride 40 meq/Potassium Chloride 30 meq/ Potassium Phosphate 10 mmol/ Magnesium Sulfate 15 meq/ Multivitamins 10 ml/Chromium/ Copper/Manganese/ Seleni /Zn 1 ml/ Insulin Human Regular 10 unit/ Total Parenteral Nutrition/Amino Acids/ Dextrose/ Fat Emulsion Intravenous 1,512 ml @ 63 mls/hr TPN CONT IV Last administered on 01/09/19at 22:22; Start 01/09/19 at 22:00; Stop 01/10/19 at 21:59 Active Scripts Active Chlorhexidine Gluconate 473 Ml Mouthwash 473 Ml MM BID 7 Days Vitamin C (Ascorbate Calcium) 500 Mg Tablet 500 Mg PO DAILY 30 Days Slow Release Iron (Ferrous Sulfate) 250 Mg Tablet.er 250 Mg PO DAILY 30 Days Protonix (Pantoprazole Sodium) 40 Mg Granpkt.dr 40 Mg PO DAILY 30 Days Reported Alprazolam 0.25 Mg Tablet 0.25 Mg PO DAILY Metformin Hcl Er (Metformin Hcl) 500 Mg Tab.er.24h 1 Tab PO DAILY Namenda (Memantine Hcl) 10 Mg Tablet 1 Tab PO BID Losartan Potassium 100 Mg Tablet 100 Mg PO DAILY Spironolactone 25 Mg Tablet 1 Tab PO DAILY Ventolin Hfa Inhaler (Albuterol Sulfate) 18 Gm Hfa.aer.ad 2 Puff INH Q4HRS Cymbalta (Duloxetine Hcl) 20 Mg Capsule.dr 90 Mg PO DAILY Requip (Ropinirole Hcl) 1 Mg Tablet 3 Mg PO DAILY Amlodipine Besylate 10 Mg Tablet 10 Mg PO DAILY Vitals/I & O Vital Sign - Last 24 Hours 01/09/19 01/09/19 01/09/19 01/09/19 11:00 11:16 12:03 15:00 Temp 98.2 97.7 98.2 97.7 Pulse 63 83 Resp 18 18 B/P (MAP) 126/84 (98) 137/82 (100) Pulse Ox 97 92 97 98 O2 Delivery Nasal Cannula Nasal Cannula Nasal Cannula Nasal Cannula O2 Flow Rate 2.0 3.0 3.0 01/09/19 01/09/19 01/09/19 01/09/19 16:22 18:37 19:00 19:10 Temp 97.5 97.5 Pulse 78 Resp 18 B/P (MAP) 143/83 (103) Pulse Ox 98 100 95 O2 Delivery Nasal Cannula Nasal Cannula Nasal Cannula O2 Flow Rate 3.0 3.0 2.0 01/09/19 01/09/19 01/09/19 01/09/19 19:15 19:16 19:45 23:00 Temp 97.7 97.7 Pulse 90 Resp 18 B/P (MAP) 131/80 (97) Pulse Ox 95 95 100 O2 Delivery Nasal Cannula Nasal Cannula Nasal Cannula Nasal Cannula O2 Flow Rate 3.0 3.0 3.0 2.0 01/09/19 01/10/19 01/10/19 01/10/19 23:17 01:29 01:59 03:00 Temp 98.1 98.1 Pulse 72 Resp 20 20 18 B/P (MAP) 119/85 (96) Pulse Ox 100 O2 Delivery Nasal Cannula Nasal Cannula Nasal Cannula Nasal Cannula O2 Flow Rate 3.0 2.0 2.0 2.0 01/10/19 01/10/19 01/10/19 01/10/19 03:55 05:51 07:00 07:20 Temp 98.1 98.1 Pulse 85 Resp 18 B/P (MAP) 116/83 (94) Pulse Ox 96 97 O2 Delivery Nasal Cannula Nasal Cannula Nasal Cannula Nasal Cannula O2 Flow Rate 3.0 3.0 2.0 2.0 Intake and Output 01/09/19 01/09/19 01/10/19 14:59 22:59 06:59 Intake Total 1510 ml Output Total 150 ml Balance -150 ml 1510 ml SON LAU MD Jan 10, 2019 10:16
--- NOTE | 2019-01-10 10:31 | PDOC ---
PULMONARY PROGRESS NOTES Subjective no kaylan, resting in chair Vitals Vital Signs Date Time Temp Pulse Resp B/P (MAP) Pulse Ox O2 Delivery O2 Flow Rate FiO2 01/10/19 07:20 Nasal Cannula 2.0 01/10/19 07:00 98.1 85 18 116/83 (94) 97 98.1 ROS: No Nausea, No Chest Pain General: Alert, Mild Distress HEENT: Other (nc at perrl nose throat clear neck +JVD no lad, no thyromegaly ) Lungs: Clear Cardiovascular: S1, S2 Abdomen: Soft, Non-tender, Other (distended) Neuro Exam: Alert, Oriented Extremities: No Edema Skin: Warm Labs Laboratory Tests Test 01/08/19 12:02 01/08/19 17:41 01/09/19 00:01 01/09/19 05:00 Glucose (Fingerstick) 295 mg/dL (70-99) 191 mg/dL (70-99) 165 mg/dL (70-99) White Blood Count 11.6 x10^3/uL (4.0-11.0) Red Blood Count 3.14 x10^6/uL (3.50-5.40) Hemoglobin 7.3 g/dL (12.0-15.5) Hematocrit 24.0 % (36.0-47.0) Mean Corpuscular Volume 77 fL (79-100) Mean Corpuscular Hemoglobin 23 pg (25-35) Mean Corpuscular Hemoglobin Concent 31 g/dL (31-37) Red Cell Distribution Width 24.6 % (11.5-14.5) Platelet Count 308 x10^3/uL (140-400) Neutrophils (%) (Auto) 82 % (31-73) Lymphocytes (%) (Auto) 9 % (24-48) Monocytes (%) (Auto) 7 % (0-9) Eosinophils (%) (Auto) 1 % (0-3) Basophils (%) (Auto) 1 % (0-3) Neutrophils # (Auto) 9.5 x10^3uL (1.8-7.7) Lymphocytes # (Auto) 1.0 x10^3/uL (1.0-4.8) Monocytes # (Auto) 0.8 x10^3/uL (0.0-1.1) Eosinophils # (Auto) 0.1 x10^3/uL (0.0-0.7) Basophils # (Auto) 0.1 x10^3/uL (0.0-0.2) Test 01/09/19 06:20 01/09/19 11:47 01/09/19 18:15 01/10/19 00:47 Glucose (Fingerstick) 179 mg/dL (70-99) 182 mg/dL (70-99) 132 mg/dL (70-99) 168 mg/dL (70-99) Test 01/10/19 06:30 01/10/19 08:45 Glucose (Fingerstick) 177 mg/dL (70-99) White Blood Count 13.6 x10^3/uL (4.0-11.0) Red Blood Count 3.29 x10^6/uL (3.50-5.40) Hemoglobin 7.7 g/dL (12.0-15.5) Hematocrit 25.2 % (36.0-47.0) Mean Corpuscular Volume 77 fL (79-100) Mean Corpuscular Hemoglobin 24 pg (25-35) Mean Corpuscular Hemoglobin Concent 31 g/dL (31-37) Red Cell Distribution Width 24.1 % (11.5-14.5) Platelet Count 340 x10^3/uL (140-400) Neutrophils (%) (Auto) 86 % (31-73) Lymphocytes (%) (Auto) 7 % (24-48) Monocytes (%) (Auto) 6 % (0-9) Eosinophils (%) (Auto) 1 % (0-3) Basophils (%) (Auto) 0 % (0-3) Neutrophils # (Auto) 11.7 x10^3uL (1.8-7.7) Lymphocytes # (Auto) 1.0 x10^3/uL (1.0-4.8) Monocytes # (Auto) 0.8 x10^3/uL (0.0-1.1) Eosinophils # (Auto) 0.1 x10^3/uL (0.0-0.7) Basophils # (Auto) 0.0 x10^3/uL (0.0-0.2) Sodium Level 144 mmol/L (136-145) Potassium Level 3.9 mmol/L (3.5-5.1) Chloride Level 107 mmol/L (98-107) Carbon Dioxide Level 28 mmol/L (21-32) Anion Gap 9 (6-14) Blood Urea Nitrogen 30 mg/dL (7-20) Creatinine 0.6 mg/dL (0.6-1.0) Estimated GFR (Cockcroft-Gault) 117.9 BUN/Creatinine Ratio 50 (6-20) Glucose Level 209 mg/dL (70-99) Calcium Level 8.6 mg/dL (8.5-10.1) Phosphorus Level 3.6 mg/dL (2.6-4.7) Magnesium Level 1.8 mg/dL (1.8-2.4) Total Bilirubin 0.3 mg/dL (0.2-1.0) Aspartate Amino Transf (AST/SGOT) 34 U/L (15-37) Alanine Aminotransferase (ALT/SGPT) 58 U/L (14-59) Alkaline Phosphatase 118 U/L (46-116) Total Protein 6.3 g/dL (6.4-8.2) Albumin 1.9 g/dL (3.4-5.0) Albumin/Globulin Ratio 0.4 (1.0-1.7) Triglycerides Level 145 mg/dL (0-150) Laboratory Tests Test 01/09/19 11:47 01/09/19 18:15 01/10/19 00:47 01/10/19 06:30 Glucose (Fingerstick) 182 mg/dL (70-99) 132 mg/dL (70-99) 168 mg/dL (70-99) 177 mg/dL (70-99) Test 01/10/19 08:45 White Blood Count 13.6 x10^3/uL (4.0-11.0) Red Blood Count 3.29 x10^6/uL (3.50-5.40) Hemoglobin 7.7 g/dL (12.0-15.5) Hematocrit 25.2 % (36.0-47.0) Mean Corpuscular Volume 77 fL (79-100) Mean Corpuscular Hemoglobin 24 pg (25-35) Mean Corpuscular Hemoglobin Concent 31 g/dL (31-37) Red Cell Distribution Width 24.1 % (11.5-14.5) Platelet Count 340 x10^3/uL (140-400) Neutrophils (%) (Auto) 86 % (31-73) Lymphocytes (%) (Auto) 7 % (24-48) Monocytes (%) (Auto) 6 % (0-9) Eosinophils (%) (Auto) 1 % (0-3) Basophils (%) (Auto) 0 % (0-3) Neutrophils # (Auto) 11.7 x10^3uL (1.8-7.7) Lymphocytes # (Auto) 1.0 x10^3/uL (1.0-4.8) Monocytes # (Auto) 0.8 x10^3/uL (0.0-1.1) Eosinophils # (Auto) 0.1 x10^3/uL (0.0-0.7) Basophils # (Auto) 0.0 x10^3/uL (0.0-0.2) Sodium Level 144 mmol/L (136-145) Potassium Level 3.9 mmol/L (3.5-5.1) Chloride Level 107 mmol/L (98-107) Carbon Dioxide Level 28 mmol/L (21-32) Anion Gap 9 (6-14) Blood Urea Nitrogen 30 mg/dL (7-20) Creatinine 0.6 mg/dL (0.6-1.0) Estimated GFR (Cockcroft-Gault) 117.9 BUN/Creatinine Ratio 50 (6-20) Glucose Level 209 mg/dL (70-99) Calcium Level 8.6 mg/dL (8.5-10.1) Phosphorus Level 3.6 mg/dL (2.6-4.7) Magnesium Level 1.8 mg/dL (1.8-2.4) Total Bilirubin 0.3 mg/dL (0.2-1.0) Aspartate Amino Transf (AST/SGOT) 34 U/L (15-37) Alanine Aminotransferase (ALT/SGPT) 58 U/L (14-59) Alkaline Phosphatase 118 U/L (46-116) Total Protein 6.3 g/dL (6.4-8.2) Albumin 1.9 g/dL (3.4-5.0) Albumin/Globulin Ratio 0.4 (1.0-1.7) Triglycerides Level 145 mg/dL (0-150) Medications Active Scripts Medications Dose Route/Sig Max Daily Dose Days Date Category Chlorhexidine Gluconate 473 Ml Mouthwash 473 Ml MM BID 7 12/10/18 Rx Vitamin C (Ascorbate Calcium) 500 Mg Tablet 500 Mg PO DAILY 30 11/22/18 Rx Slow Release Iron (Ferrous Sulfate) 250 Mg Tablet.er 250 Mg PO DAILY 30 11/22/18 Rx Protonix (Pantoprazole Sodium) 40 Mg Granpkt.dr 40 Mg PO DAILY 30 11/22/18 Rx Metformin Hcl Er (Metformin Hcl) 500 Mg Tab.er.24h 1 Tab PO DAILY 11/12/16 Reported Namenda (Memantine Hcl) 10 Mg Tablet 1 Tab PO BID 11/12/16 Reported Losartan Potassium 100 Mg Tablet 100 Mg PO DAILY 11/12/16 Reported Spironolactone 25 Mg Tablet 1 Tab PO DAILY 11/12/16 Reported Ventolin Hfa Inhaler (Albuterol Sulfate) 18 Gm Hfa.aer.ad 2 Puff INH Q4HRS 11/11/16 Reported Cymbalta (Duloxetine Hcl) 20 Mg Capsule.dr 90 Mg PO DAILY 01/27/16 Reported Requip (Ropinirole Hcl) 1 Mg Tablet 3 Mg PO DAILY 01/27/16 Reported Amlodipine Besylate 10 Mg Tablet 10 Mg PO DAILY 01/27/16 Reported Comments cxr reviewed, b lat ll effusion/atelectasis/infilt L>R Impression . 1. Acute hypoxic respiratory failure MULTIFACTORIAL EXPECTED POST SURGICAL INTERVENTION 2. Gastrointestinal bleed/cecal ulceration by colonoscopy, status post laparoscopic-assisted right colon resection and hemorrhoidectomy 12/17 3. ileus S/P SECOND SURGERY 12/30 SEE BELOW 4. Underlying suspected severe chronic obstructive pulmonary disease. 5. Abnormal CT chest with focal opacity in the right upper lobe, could be nodule/ATELECTASIS Date: 12/17/2018 Preoperative diagnosis: GI bleed cecal ulceration by colonoscopy with active bleeding hemorrhoids Postoperative diagnosis: Same Procedure: Laparoscopic-assisted right colon resection and hemorrhoidectomy Surgeon: Jan Specimen: Right colon and hemorrhoids Date: 12/30/2018 Preoperative diagnosis: Small bowel obstruction Postoperative diagnosis: Small bowel obstruction at previous anastomotic site Procedure: Exploratory laparotomy with extended right hemicolectomy and primary anastomosis Plan . d/w RN, avoid oversedation PRN BIPAP during day, continuos at night, setting reviewed. pulmicort NG PER SURGEON IS, the importance of use discussed BD q 4hrs, cxr reviewed 01/02 elevate hob pt/ot FOLLOW UP CT IN 3 MONTHS, dr hoover discussed w DAUGHTER discussed w pt, rn, JEF CARLIN MD Jan 10, 2019 10:31
[2019-01-10 11:00] VITALS: BP 116/71
--- NOTE | 2019-01-10 12:30 | PDOC ---
Subjective: Subjective: Son present - says he has encouraged her to get up and move around. Objective: Objective: Reviewed w/ RN - stooled yesterday, NG clamped this morning, gets drowsy w/ meds. Vital Signs: Vital Signs Date Time Temp Pulse Resp B/P (MAP) Pulse Ox O2 Delivery O2 Flow Rate FiO2 01/10/19 11:09 Nasal Cannula 3.0 01/10/19 11:02 95 01/10/19 11:00 97.3 84 20 116/71 (86) 97.3 Labs: Laboratory Tests Test 01/09/19 18:15 01/10/19 00:47 01/10/19 06:30 01/10/19 08:45 Glucose (Fingerstick) 132 mg/dL 168 mg/dL 177 mg/dL White Blood Count 13.6 x10^3/uL Red Blood Count 3.29 x10^6/uL Hemoglobin 7.7 g/dL Hematocrit 25.2 % Mean Corpuscular Volume 77 fL Mean Corpuscular Hemoglobin 24 pg Mean Corpuscular Hemoglobin Concent 31 g/dL Red Cell Distribution Width 24.1 % Platelet Count 340 x10^3/uL Neutrophils (%) (Auto) 86 % Lymphocytes (%) (Auto) 7 % Monocytes (%) (Auto) 6 % Eosinophils (%) (Auto) 1 % Basophils (%) (Auto) 0 % Neutrophils # (Auto) 11.7 x10^3uL Lymphocytes # (Auto) 1.0 x10^3/uL Monocytes # (Auto) 0.8 x10^3/uL Eosinophils # (Auto) 0.1 x10^3/uL Basophils # (Auto) 0.0 x10^3/uL Sodium Level 144 mmol/L Potassium Level 3.9 mmol/L Chloride Level 107 mmol/L Carbon Dioxide Level 28 mmol/L Anion Gap 9 Blood Urea Nitrogen 30 mg/dL Creatinine 0.6 mg/dL Estimated GFR (Cockcroft-Gault) 117.9 BUN/Creatinine Ratio 50 Glucose Level 209 mg/dL Calcium Level 8.6 mg/dL Phosphorus Level 3.6 mg/dL Magnesium Level 1.8 mg/dL Total Bilirubin 0.3 mg/dL Aspartate Amino Transf (AST/SGOT) 34 U/L Alanine Aminotransferase (ALT/SGPT) 58 U/L Alkaline Phosphatase 118 U/L Total Protein 6.3 g/dL Albumin 1.9 g/dL Albumin/Globulin Ratio 0.4 Triglycerides Level 145 mg/dL Test 01/10/19 11:41 Glucose (Fingerstick) 179 mg/dL Imaging: Abd X-Ray 01/08 IMPRESSION: Redemonstrated dilated bowel loops likely ileus or small bowel obstruction. NG tube is in the fundus of the stomach. PE: GEN: in in recliner LUNGS: NC HEART: RRR ABD: distended, a couple gurgles to right NEURO/PSYCH: drowsy A/P: S/p extended right hemicolectomy, ileus Leukocytosis, anemia COPD -- NG replaced over the weekend, now clamped after stooling yesterday. Continue per surgery. RADHA JUSTICE Jan 10, 2019 12:30
[2019-01-10] MEDS: INSULIN GLARGINE 300 UNITS/3 ML INSULN.PEN. SQ SCH (13:45)
[2019-01-10] MEDS: TPN PER PHARMACY MC PRN (13:52)
--- NOTE | 2019-01-10 14:07 | NUR ---
Pharmacy TPN Dosing Note S: ELLE LATHAM is a 72 year old F Currently receiving Central Continuous TPN started 12/23/18 B:Pertinent PMH: SBO Height: 5 feet, 7 inches Weight: 85.934088 kg Current diet: npo LABS: Sodium: 144 Potassium: 3.9 Chloride: 107 Calcium: 8.6 Corrected Calcium: 10.28 Magnesium: 1.8 CO2: 28 SCr: 0.6 Glucose: 209 Albumin: 1.9 AST: 34 ALT: 58 TPN FORMULA: TPN TYPE: Central Continuous AMINO ACIDS: 85 gm DEXTROSE: 260 gm LIPIDS: 40 gm SODIUM CHLORIDE: 40 mEq SODIUM ACETATE: - mEq SODIUM PHOSPHATE: - mmol POTASSIUM CHLORIDE: - mEq POTASSIUM ACETATE: 50 mEq POTASSIUM PHOSPHATE: 10 mmol MAGNESIUM: 18 mEq CALCIUM: 0 mEq INSULIN: 10 units MULTIPLE VITAMIN: 10 ml TRACE ELEMENTS: MTE5 1 ml(s) TPN PLAN: change kcl to kacetate 50 meq, up magso4 to 18 meq R: Continue TPN AT 63ML/HR Will monitor electrolytes, glucose, and tolerance to TPN. JAMILA WILKINS [facility], 01/10/19 0692
[2019-01-10 15:00] VITALS: BP 128/75
[2019-01-10] MEDS: ONDANSETRON PF 4 MG/2 ML VIAL. IV PRN ×2 (16:10→22:21)
[2019-01-10 19:00] VITALS: BP 147/78
[2019-01-10] MEDS: rOPINIRole 1 MG TABLET. PO SCH (21:13)
[2019-01-10] MEDS ORDERED: [UNRECOGNIZED DRUG - OTHER] IV SCH ×10 (22:00)
[2019-01-10] MEDS ORDERED: DEXTROSE 70% IV SCH ×10 (22:00)
[2019-01-10] MEDS ORDERED: TOTAL PARENTERAL NUTRITION IV SCH ×10 (22:00)
[2019-01-10] MEDS ORDERED: AMINO ACID IV SCH ×10 (22:00)
[2019-01-10 23:00] VITALS: BP 112/71
[2019-01-11] MEDS: INSULIN LISPRO 300 UNITS/3 ML INSULN.PEN. SQ SCH ×7 (00:29→17:12)
[2019-01-11 03:00] VITALS: BP 117/76
[2019-01-11] MEDS: IPRATRPIUM/ALBUTEROL 0.5/2.5MG 3 ML NEBU. NEB SCH ×5 (04:05→20:08)
[2019-01-11] MEDS: HYDROmorphone 2 MG/ML VIAL IV PRN ×3 (04:05→17:28)
[2019-01-11 07:00] VITALS: BP 138/87
[2019-01-11] MEDS: BUDESONIDE 0.5 MG/2 ML NEBU. NEB SCH ×2 (07:42→20:08)
[2019-01-11] MEDS: FERROUS SULFATE 325 MG TABLET. PO SCH (08:00)
[2019-01-11] MEDS: MEMANTINE 10 MG TABLET. PO SCH (09:00)
[2019-01-11] MEDS: ASCORBIC ACID 500 MG TABLET PO SCH (09:00)
[2019-01-11] MEDS: amLODIPine BESYLATE 10 MG TABLET PO SCH (09:00)
[2019-01-11] MEDS: DULoxetine HCL 30 MG CAPSULE.DR PO SCH (09:00)
[2019-01-11] MEDS: LOSARTAN POTASSIUM 50 MG TABLET. PO SCH (09:00)
[2019-01-11] MEDS: SPIRONOLACTONE 25 MG TABLET PO SCH (09:00)
[2019-01-11] MEDS: DOCUSATE SODIUM 100 MG CAPSULE. PO SCH (09:00)
[2019-01-11] MEDS: ENOXAPARIN 40 MG/0.4 ML SYRINGE. SQ SCH (09:01)
[2019-01-11] MEDS: CHLORHEXIDINE 0.12% 15 ML MOUTHWASH. MM SCH ×2 (09:01→20:50)
[2019-01-11] MEDS: PANTOPRAZOLE IV PUSH 40 MG VIAL. IVP SCH (09:01)
--- NOTE | 2019-01-11 09:09 | PDOC ---
PULMONARY PROGRESS NOTES Subjective no kaylan, resting in chair Vitals Vital Signs Date Time Temp Pulse Resp B/P (MAP) Pulse Ox O2 Delivery O2 Flow Rate FiO2 01/11/19 07:41 98 Nasal Cannula 3.0 01/11/19 07:00 97.7 97 18 138/87 (104) 97.7 ROS: No Nausea, No Chest Pain General: Alert, Mild Distress HEENT: Other (nc at perrl nose throat clear neck +JVD no lad, no thyromegaly ) Lungs: Clear Cardiovascular: S1, S2 Abdomen: Soft, Non-tender, Other (distended) Neuro Exam: Alert, Oriented Extremities: No Edema Skin: Warm Labs Laboratory Tests Test 01/09/19 11:47 01/09/19 18:15 01/10/19 00:47 01/10/19 06:30 Glucose (Fingerstick) 182 mg/dL (70-99) 132 mg/dL (70-99) 168 mg/dL (70-99) 177 mg/dL (70-99) Test 01/10/19 08:45 01/10/19 11:41 01/10/19 17:51 01/11/19 00:28 White Blood Count 13.6 x10^3/uL (4.0-11.0) Red Blood Count 3.29 x10^6/uL (3.50-5.40) Hemoglobin 7.7 g/dL (12.0-15.5) Hematocrit 25.2 % (36.0-47.0) Mean Corpuscular Volume 77 fL (79-100) Mean Corpuscular Hemoglobin 24 pg (25-35) Mean Corpuscular Hemoglobin Concent 31 g/dL (31-37) Red Cell Distribution Width 24.1 % (11.5-14.5) Platelet Count 340 x10^3/uL (140-400) Neutrophils (%) (Auto) 86 % (31-73) Lymphocytes (%) (Auto) 7 % (24-48) Monocytes (%) (Auto) 6 % (0-9) Eosinophils (%) (Auto) 1 % (0-3) Basophils (%) (Auto) 0 % (0-3) Neutrophils # (Auto) 11.7 x10^3uL (1.8-7.7) Lymphocytes # (Auto) 1.0 x10^3/uL (1.0-4.8) Monocytes # (Auto) 0.8 x10^3/uL (0.0-1.1) Eosinophils # (Auto) 0.1 x10^3/uL (0.0-0.7) Basophils # (Auto) 0.0 x10^3/uL (0.0-0.2) Sodium Level 144 mmol/L (136-145) Potassium Level 3.9 mmol/L (3.5-5.1) Chloride Level 107 mmol/L (98-107) Carbon Dioxide Level 28 mmol/L (21-32) Anion Gap 9 (6-14) Blood Urea Nitrogen 30 mg/dL (7-20) Creatinine 0.6 mg/dL (0.6-1.0) Estimated GFR (Cockcroft-Gault) 117.9 BUN/Creatinine Ratio 50 (6-20) Glucose Level 209 mg/dL (70-99) Calcium Level 8.6 mg/dL (8.5-10.1) Phosphorus Level 3.6 mg/dL (2.6-4.7) Magnesium Level 1.8 mg/dL (1.8-2.4) Total Bilirubin 0.3 mg/dL (0.2-1.0) Aspartate Amino Transf (AST/SGOT) 34 U/L (15-37) Alanine Aminotransferase (ALT/SGPT) 58 U/L (14-59) Alkaline Phosphatase 118 U/L (46-116) Total Protein 6.3 g/dL (6.4-8.2) Albumin 1.9 g/dL (3.4-5.0) Albumin/Globulin Ratio 0.4 (1.0-1.7) Triglycerides Level 145 mg/dL (0-150) Glucose (Fingerstick) 179 mg/dL (70-99) 90 mg/dL (70-99) 108 mg/dL (70-99) Test 01/11/19 06:24 Glucose (Fingerstick) 153 mg/dL (70-99) Laboratory Tests Test 01/10/19 11:41 01/10/19 17:51 01/11/19 00:28 01/11/19 06:24 Glucose (Fingerstick) 179 mg/dL (70-99) 90 mg/dL (70-99) 108 mg/dL (70-99) 153 mg/dL (70-99) Medications Active Scripts Medications Dose Route/Sig Max Daily Dose Days Date Category Chlorhexidine Gluconate 473 Ml Mouthwash 473 Ml MM BID 7 12/10/18 Rx Vitamin C (Ascorbate Calcium) 500 Mg Tablet 500 Mg PO DAILY 30 11/22/18 Rx Slow Release Iron (Ferrous Sulfate) 250 Mg Tablet.er 250 Mg PO DAILY 30 11/22/18 Rx Protonix (Pantoprazole Sodium) 40 Mg Granpkt.dr 40 Mg PO DAILY 30 11/22/18 Rx Metformin Hcl Er (Metformin Hcl) 500 Mg Tab.er.24h 1 Tab PO DAILY 11/12/16 Reported Namenda (Memantine Hcl) 10 Mg Tablet 1 Tab PO BID 11/12/16 Reported Losartan Potassium 100 Mg Tablet 100 Mg PO DAILY 11/12/16 Reported Spironolactone 25 Mg Tablet 1 Tab PO DAILY 11/12/16 Reported Ventolin Hfa Inhaler (Albuterol Sulfate) 18 Gm Hfa.aer.ad 2 Puff INH Q4HRS 11/11/16 Reported Cymbalta (Duloxetine Hcl) 20 Mg Capsule.dr 90 Mg PO DAILY 01/27/16 Reported Requip (Ropinirole Hcl) 1 Mg Tablet 3 Mg PO DAILY 01/27/16 Reported Amlodipine Besylate 10 Mg Tablet 10 Mg PO DAILY 01/27/16 Reported Comments cxr reviewed, b lat ll effusion/atelectasis/infilt L>R Impression . 1. Acute hypoxic respiratory failure MULTIFACTORIAL EXPECTED POST SURGICAL INTERVENTION 2. Gastrointestinal bleed/cecal ulceration by colonoscopy, status post laparoscopic-assisted right colon resection and hemorrhoidectomy 12/17 3. ileus S/P SECOND SURGERY 12/30 SEE BELOW 4. Underlying suspected severe chronic obstructive pulmonary disease. 5. Abnormal CT chest with focal opacity in the right upper lobe, could be nodule/ATELECTASIS Date: 12/17/2018 Preoperative diagnosis: GI bleed cecal ulceration by colonoscopy with active bleeding hemorrhoids Postoperative diagnosis: Same Procedure: Laparoscopic-assisted right colon resection and hemorrhoidectomy Surgeon: Jan Specimen: Right colon and hemorrhoids Date: 12/30/2018 Preoperative diagnosis: Small bowel obstruction Postoperative diagnosis: Small bowel obstruction at previous anastomotic site Procedure: Exploratory laparotomy with extended right hemicolectomy and primary anastomosis Plan . d/w RN, avoid oversedation PRN BIPAP during day, continuos at night, setting reviewed. pulmicort NG PER SURGEON IS, the importance of use discussed BD q 4hrs, cxr reviewed 01/02 elevate hob pt/ot FOLLOW UP CT IN 3 MONTHS, dr valentine discussed w DAUGHTER discussed w pt, rn, MARIA ALEJANDRA VALENTINE MD Jan 11, 2019 09:09
[2019-01-11] MEDS: INSULIN GLARGINE 300 UNITS/3 ML INSULN.PEN. SQ SCH (09:18)
--- NOTE | 2019-01-11 10:12 | PDOC ---
Infectious Disease Note Subjective Subjective pt is feeling ok, still has NG ROS ROS no n/v/d/fever Vital Sign Vital Signs Vital Signs Date Time Temp Pulse Resp B/P (MAP) Pulse Ox O2 Delivery O2 Flow Rate FiO2 01/11/19 08:00 Nasal Cannula 3.0 01/11/19 07:41 98 01/11/19 07:00 97.7 97 18 138/87 (104) 97.7 Physical Exam PHYSICAL EXAM GENERAL: Sitting in the chair, relaxed appearance, alert. HEENT: Oral cavity pink, dry NECK: Supple LUNGS: Diminished aeration bases, nonlabored HEART: S1, S2 ABDOMEN: Distended, NT to light palpation. + BS, dressing. mild serous fluid EXTREMITIES: LLE 1+ edema. no cyanosis SKIN: No rash. NEUROLOGIC: Alert, responding appropriately RUE-PICC (12/23) clean Labs Lab Laboratory Tests Test 01/10/19 11:41 01/10/19 17:51 01/11/19 00:28 01/11/19 06:24 Glucose (Fingerstick) 179 mg/dL (70-99) 90 mg/dL (70-99) 108 mg/dL (70-99) 153 mg/dL (70-99) Micro Microbiology 12/19/18 Blood Culture - Preliminary, Resulted NO GROWTH AFTER 1 DAY Objective Assessment Leukocytosis S/P rt hemicolectomy COPD Pneumonia Ileus Plan Plan of Care Continue to observe off antibiotics Monitor WBC/temp - if worsens will need CT abd/pelv maintain aspiration precautions D/w nursing DENI SALINAS MD Jan 11, 2019 10:12
--- NOTE | 2019-01-11 10:42 | PDOC ---
ABRAHAM WEBER [employer] 01/11/19 1042: SURGICAL PROGRESS NOTE Subjective had distention and nausea this AM + stools and nothing from NG when hooked to LIS Vital Signs Vital Signs Date Time Temp Pulse Resp B/P (MAP) Pulse Ox O2 Delivery O2 Flow Rate FiO2 01/11/19 10:21 Nasal Cannula 3.0 01/11/19 07:41 98 01/11/19 07:00 97.7 97 18 138/87 (104) 97.7 I&O Intake and Output 01/11/19 07:00 Output Total 0 ml Balance 0 ml Gastric Drainage Total 0 ml # Voids 6 General: Cooperative, No acute distress Abdomen: Soft, Other (distented, some pain on exam) Labs Laboratory Tests Test 01/09/19 11:47 01/09/19 18:15 01/10/19 00:47 01/10/19 06:30 Glucose (Fingerstick) 182 mg/dL (70-99) 132 mg/dL (70-99) 168 mg/dL (70-99) 177 mg/dL (70-99) Test 01/10/19 08:45 01/10/19 11:41 01/10/19 17:51 01/11/19 00:28 White Blood Count 13.6 x10^3/uL (4.0-11.0) Red Blood Count 3.29 x10^6/uL (3.50-5.40) Hemoglobin 7.7 g/dL (12.0-15.5) Hematocrit 25.2 % (36.0-47.0) Mean Corpuscular Volume 77 fL (79-100) Mean Corpuscular Hemoglobin 24 pg (25-35) Mean Corpuscular Hemoglobin Concent 31 g/dL (31-37) Red Cell Distribution Width 24.1 % (11.5-14.5) Platelet Count 340 x10^3/uL (140-400) Neutrophils (%) (Auto) 86 % (31-73) Lymphocytes (%) (Auto) 7 % (24-48) Monocytes (%) (Auto) 6 % (0-9) Eosinophils (%) (Auto) 1 % (0-3) Basophils (%) (Auto) 0 % (0-3) Neutrophils # (Auto) 11.7 x10^3uL (1.8-7.7) Lymphocytes # (Auto) 1.0 x10^3/uL (1.0-4.8) Monocytes # (Auto) 0.8 x10^3/uL (0.0-1.1) Eosinophils # (Auto) 0.1 x10^3/uL (0.0-0.7) Basophils # (Auto) 0.0 x10^3/uL (0.0-0.2) Sodium Level 144 mmol/L (136-145) Potassium Level 3.9 mmol/L (3.5-5.1) Chloride Level 107 mmol/L (98-107) Carbon Dioxide Level 28 mmol/L (21-32) Anion Gap 9 (6-14) Blood Urea Nitrogen 30 mg/dL (7-20) Creatinine 0.6 mg/dL (0.6-1.0) Estimated GFR (Cockcroft-Gault) 117.9 BUN/Creatinine Ratio 50 (6-20) Glucose Level 209 mg/dL (70-99) Calcium Level 8.6 mg/dL (8.5-10.1) Phosphorus Level 3.6 mg/dL (2.6-4.7) Magnesium Level 1.8 mg/dL (1.8-2.4) Total Bilirubin 0.3 mg/dL (0.2-1.0) Aspartate Amino Transf (AST/SGOT) 34 U/L (15-37) Alanine Aminotransferase (ALT/SGPT) 58 U/L (14-59) Alkaline Phosphatase 118 U/L (46-116) Total Protein 6.3 g/dL (6.4-8.2) Albumin 1.9 g/dL (3.4-5.0) Albumin/Globulin Ratio 0.4 (1.0-1.7) Triglycerides Level 145 mg/dL (0-150) Glucose (Fingerstick) 179 mg/dL (70-99) 90 mg/dL (70-99) 108 mg/dL (70-99) Test 01/11/19 06:24 Glucose (Fingerstick) 153 mg/dL (70-99) Laboratory Tests Test 01/10/19 11:41 01/10/19 17:51 01/11/19 00:28 01/11/19 06:24 Glucose (Fingerstick) 179 mg/dL (70-99) 90 mg/dL (70-99) 108 mg/dL (70-99) 153 mg/dL (70-99) Assessment/Plan will review with DAYLIN Griffin MD 01/11/19 1117: SURGICAL PROGRESS NOTE Assessment/Plan Patient seen and examined by me has had several bowel movements. She does describe some nausea although this tolerated clamping of her NG tube currently. We'll continue to clamp NG tube over the night of tolerated we'll remove in the morning and start liquids with Germania assessment and plan ABRAHAM WEBER APRN Jan 11, 2019 10:42 DAYLIN WEI MD Jan 11, 2019 11:17
--- NOTE | 2019-01-11 10:42 | PDOC ---
PROGRESS NOTES Chief Complaint Chief Complaint Cecal ulceration - s/p X LAP - rt colon resection and hemorrhoidectomy 12/30 Anemia, colonic Avms Acute hypoxic respiratory failure, improving post op malnutrition VISHNU COPD Sepsis/Leukopenia - meropenem and vanco, ID following ileus on nGT History of Present Illness History of Present Illness Status post exploratory laparoscopy 12/30 and had a remarkable postop course- ileus on TPN with NGT Positive flatus per chart NG tube in place - clamped yesterday and did well yesterday but apparently this morning had some output She wants to go home, sleepy though but wakes up easy Hemoglobin 7, WBC 11 with no fevers BMP is good Plan: continue TPN planned for ngt clamping again Ambulate with PT Social work screen pending PT recommendations Monitor that hemoglobin of 7 Vitals Vitals Vital Signs Date Time Temp Pulse Resp B/P (MAP) Pulse Ox O2 Delivery O2 Flow Rate FiO2 01/11/19 10:21 Nasal Cannula 3.0 01/11/19 07:41 98 01/11/19 07:00 97.7 97 18 138/87 (104) 97.7 Physical Exam Physical Exam GENERAL: Sitting in the chair, relaxed appearance, alert. HEENT: Oral cavity pink, dry NECK: Supple LUNGS: Diminished aeration bases, nonlabored HEART: S1, S2 ABDOMEN: Distended, NT to light palpation. + BS, dressing. mild serous fluid EXTREMITIES: LLE 1+ edema. no cyanosis SKIN: No rash. NEUROLOGIC: Alert, responding appropriately RUE-PICC (12/23) clean General: Alert, Oriented X3, Cooperative, No acute distress, Other (NGT in place) Heart: Regular rate, Normal S1, Normal S2, No murmurs Lungs: Clear Abdomen: Soft, Other (dressing dry, less distended ) Extremities: No clubbing, No cyanosis, No edema Skin: No breakdown, No significant lesion Labs LABS Laboratory Tests Test 01/10/19 11:41 01/10/19 17:51 01/11/19 00:28 01/11/19 06:24 Glucose (Fingerstick) 179 mg/dL (70-99) 90 mg/dL (70-99) 108 mg/dL (70-99) 153 mg/dL (70-99) Review of Systems Review of Systems A 14 point ROS was completed with the following noted as positive: Other systems reviewed and negative. \CONSTITUTIONAL: No fever or chills EYES: No recent changes SKIN: No rash or itching CARDIOVASCULAR: No chest pain, syncope, palpitations, or edema RESPIRATORY: No SOB or cough GASTROINTESTINAL: No nausea, vomiting or abdominal pain NEUROLOGICAL: No headaches or weakness ENDOCRINE: No cold or heat intolerance GENITOURINARY: No urgency or frequency of urination MUSCULOSKELETAL: No back pain or joint pain LYMPHATICS: No enlarged lymph nodes PSYCHIATRIC: No anxiety or depression Comment Review of Relevant I have reviewed the following items abdifatah (where applicable) has been applied. Labs Laboratory Tests Test 01/09/19 11:47 01/09/19 18:15 01/10/19 00:47 01/10/19 06:30 Glucose (Fingerstick) 182 mg/dL (70-99) 132 mg/dL (70-99) 168 mg/dL (70-99) 177 mg/dL (70-99) Test 01/10/19 08:45 01/10/19 11:41 01/10/19 17:51 01/11/19 00:28 White Blood Count 13.6 x10^3/uL (4.0-11.0) Red Blood Count 3.29 x10^6/uL (3.50-5.40) Hemoglobin 7.7 g/dL (12.0-15.5) Hematocrit 25.2 % (36.0-47.0) Mean Corpuscular Volume 77 fL (79-100) Mean Corpuscular Hemoglobin 24 pg (25-35) Mean Corpuscular Hemoglobin Concent 31 g/dL (31-37) Red Cell Distribution Width 24.1 % (11.5-14.5) Platelet Count 340 x10^3/uL (140-400) Neutrophils (%) (Auto) 86 % (31-73) Lymphocytes (%) (Auto) 7 % (24-48) Monocytes (%) (Auto) 6 % (0-9) Eosinophils (%) (Auto) 1 % (0-3) Basophils (%) (Auto) 0 % (0-3) Neutrophils # (Auto) 11.7 x10^3uL (1.8-7.7) Lymphocytes # (Auto) 1.0 x10^3/uL (1.0-4.8) Monocytes # (Auto) 0.8 x10^3/uL (0.0-1.1) Eosinophils # (Auto) 0.1 x10^3/uL (0.0-0.7) Basophils # (Auto) 0.0 x10^3/uL (0.0-0.2) Sodium Level 144 mmol/L (136-145) Potassium Level 3.9 mmol/L (3.5-5.1) Chloride Level 107 mmol/L (98-107) Carbon Dioxide Level 28 mmol/L (21-32) Anion Gap 9 (6-14) Blood Urea Nitrogen 30 mg/dL (7-20) Creatinine 0.6 mg/dL (0.6-1.0) Estimated GFR (Cockcroft-Gault) 117.9 BUN/Creatinine Ratio 50 (6-20) Glucose Level 209 mg/dL (70-99) Calcium Level 8.6 mg/dL (8.5-10.1) Phosphorus Level 3.6 mg/dL (2.6-4.7) Magnesium Level 1.8 mg/dL (1.8-2.4) Total Bilirubin 0.3 mg/dL (0.2-1.0) Aspartate Amino Transf (AST/SGOT) 34 U/L (15-37) Alanine Aminotransferase (ALT/SGPT) 58 U/L (14-59) Alkaline Phosphatase 118 U/L (46-116) Total Protein 6.3 g/dL (6.4-8.2) Albumin 1.9 g/dL (3.4-5.0) Albumin/Globulin Ratio 0.4 (1.0-1.7) Triglycerides Level 145 mg/dL (0-150) Glucose (Fingerstick) 179 mg/dL (70-99) 90 mg/dL (70-99) 108 mg/dL (70-99) Test 01/11/19 06:24 Glucose (Fingerstick) 153 mg/dL (70-99) Laboratory Tests Test 01/10/19 11:41 01/10/19 17:51 01/11/19 00:28 01/11/19 06:24 Glucose (Fingerstick) 179 mg/dL (70-99) 90 mg/dL (70-99) 108 mg/dL (70-99) 153 mg/dL (70-99) Microbiology 01/01/19 Blood Culture - Final, Complete NO GROWTH AFTER 5 DAYS 12/25/18 - Final, Complete 12/25/18 - Final, Complete 12/25/18 - Final, Complete 12/25/18 - Final, Complete 12/25/18 Gram Stain Evaluation - Final, Complete 12/25/18 Sputum Culture - Final, Complete 12/25/18 Sputum Result 1 - Final, Complete Medications Current Medications Sodium Chloride 1,000 ml @ 1,000 mls/hr 1X ONCE IV Last administered on at 13:52; Start 12/14/18 at 13:30; Stop 12/14/18 at 14:29; Status DC Amlodipine Besylate (Norvasc) 10 mg DAILY PO Last administered on 01/07/19 08: 45; Start 12/14/18 at 17:00 Chlorhexidine Gluconate (Peridex) 15 ml BID MM Last administered on 01/11/19 09:01; Start 12/14/18 at 21:00 Non-Formulary Medication (Albuterol Sulfate (Ventolin Hfa Inhaler)) 2 puff Q4HRS INH ; Start 12/14/18 at 20:00; Status UNV Ascorbic Acid (Vitamin C) 500 mg DAILY PO Last administered on 12/22/18 10:30; Start 12/14/18 at 17:00 Duloxetine HCl (Cymbalta) 90 mg DAILY PO Last administered on 01/07/19 08:48; Start 12/14/18 at 17:00; Stop 01/10/19 at 10:18; Status DC Ferrous Sulfate (Feosol) 325 mg DAILYWBKFT PO Last administered on 12/22/18 10: 30; Start 12/14/18 at 17:00 Losartan Potassium (Cozaar) 100 mg DAILY PO Last administered on 12/22/18 10:29 ; Start 12/14/18 at 17:00 Memantine (Namenda) 10 mg BID PO Last administered on 01/07/19 08:45; Start at 21:00; Stop 01/10/19 at 10:18; Status DC Pantoprazole Sodium (Protonix) 40 mg DAILYAC PO Last administered on 12/22/18 05:28; Start 12/14/18 at 17:00; Stop 12/24/18 at 09:25; Status DC Ropinirole HCl (Requip) 3 mg QHS PO Last administered on 01/07/19at 20:26; Start 12/14/18 at 21:00 Spironolactone (Aldactone) 25 mg DAILY PO Last administered on 01/07/19at 08:45 ; Start 12/14/18 at 17:00 Albuterol Sulfate (Ventolin Neb Soln) 2.5 mg Q4HRS NEB Last administered on at 06:52; Start 12/14/18 at 20:00; Stop 01/02/19 at 07:24; Status DC Sodium Chloride 1,000 ml @ 80 mls/hr [id number] IV Last administered on 12/23/18at 15:25; Start 12/14/18 at 17:15; Stop 12/23/18 at 21:59; Status DC Acetaminophen (Tylenol) 650 mg PRN Q6HRS PRN PO Pain Last administered on at 21:27; Start 12/15/18 at 04:45; Stop 12/26/18 at 21:07; Status DC Polyethylene Glycol (miraLAX Powder BULK BOTTLE) 238 gm 1X ONCE PO Last administered on 12/15/18at 12:48; Start 12/15/18 at 12:00; Stop 12/15/18 at 12:01 ; Status DC Ondansetron HCl (Zofran) 4 mg PRN Q6HRS PRN IV NAUSEA/VOMITING; Start 12/16/18 at 07:00; Stop 12/17/18 at 06:59; Status DC Fentanyl Citrate (Fentanyl 2ml Vial) 25 mcg PRN Q5MIN PRN IV MILD PAIN; Start 12/16/18 at 07:00; Stop 12/16/18 at 16:33; Status DC Fentanyl Citrate (Fentanyl 2ml Vial) 50 mcg PRN Q5MIN PRN IV MODERATE TO SEVERE PAIN; Start 12/16/18 at 07:00; Stop 12/16/18 at 16:33; Status DC Morphine Sulfate (Morphine Sulfate) 1 mg PRN Q10MIN PRN IV SEVERE PAIN; Start 12/16/18 at 07:00; Stop 12/17/18 at 06:59; Status DC Ringer's Solution 1,000 ml @ 30 mls/hr Q24H IV Last administered on 12/16/18at 13:00; Start 12/16/18 at 07:00; Stop 12/16/18 at 18:59; Status DC Lidocaine HCl (Xylocaine-Mpf 1% 2ml Vial) 2 ml PRN 1X PRN ID IV START; Start at 07:00; Stop 12/17/18 at 06:59; Status DC Hydromorphone HCl (Dilaudid) 0.5 mg PRN Q10MIN PRN IV SEV PAIN, Second choice; Start 12/16/18 at 07:00; Stop 12/17/18 at 06:59; Status DC Prochlorperazine Edisylate (Compazine) 5 mg PACU PRN PRN IV NAUSEA, MRX1; Start 12/16/18 at 07:00; Stop 12/17/18 at 06:59; Status DC Midazolam HCl (Versed) 2 mg PRN 1X PRN IV PRIOR TO PROCEDURE; Start 12/16/18 at 07:15; Stop 12/17/18 at 07:14; Status DC Fentanyl Citrate (Fentanyl 2ml Vial) 25 mcg PRN Q5MIN PRN IV X 2 DOSES FOR PAIN ; Start 12/16/18 at 07:15; Stop 12/16/18 at 16:33; Status DC Fentanyl Citrate (Fentanyl 2ml Vial) 50 mcg PRN Q5MIN PRN IV X 2 DOSES FOR PAIN ; Start 12/16/18 at 07:15; Stop 12/16/18 at 16:34; Status DC Ringer's Solution 1,000 ml @ 125 mls/hr Q8H IV ; Start 12/16/18 at 07:13; Stop 12/16/18 at 19:12; Status DC Lidocaine HCl (Xylocaine-Mpf 1% 2ml Vial) 2 ml 1X PRN PRN ID IV START; Start at 07:15; Stop 12/17/18 at 07:14; Status DC Propofol 40 ml @ As Directed STK-MED ONCE IV ; Start 12/16/18 at 13:58; Stop at 14:00; Status DC Prochlorperazine Edisylate (Compazine) 5 mg PACU PRN PRN IV NAUSEA, MRX1; Start 12/17/18 at 07:00; Stop 12/18/18 at 06:59; Status DC Hydromorphone HCl (Dilaudid) 0.5 mg PRN Q10MIN PRN IV SEV PAIN, Second choice; Start 12/17/18 at 07:00; Stop 12/18/18 at 06:59; Status DC Lidocaine HCl (Xylocaine-Mpf 1% 2ml Vial) 2 ml PRN 1X PRN ID IV START; Start at 07:00; Stop 12/18/18 at 06:59; Status DC Ringer's Solution 1,000 ml @ 30 mls/hr Q24H IV Last administered on 12/17/18at 10:34; Start 12/17/18 at 07:00; Stop 12/17/18 at 18:59; Status DC Morphine Sulfate (Morphine Sulfate) 1 mg PRN Q10MIN PRN IV SEVERE PAIN; Start 12/17/18 at 07:00; Stop 12/18/18 at 06:59; Status DC Fentanyl Citrate (Fentanyl 2ml Vial) 50 mcg PRN Q5MIN PRN IV MODERATE TO SEVERE PAIN Last administered on 12/17/18at 11:13; Start 12/17/18 at 07:00; Stop at 06:59; Status DC Fentanyl Citrate (Fentanyl 2ml Vial) 25 mcg PRN Q5MIN PRN IV MILD PAIN; Start 12/17/18 at 07:00; Stop 12/18/18 at 06:59; Status DC Ondansetron HCl (Zofran) 4 mg PRN Q6HRS PRN IV NAUSEA/VOMITING; Start 12/17/18 at 07:00; Stop 12/18/18 at 06:59; Status DC Propofol 20 ml @ As Directed STK-MED ONCE IV ; Start 12/17/18 at 07:21; Stop 12/17 at 07:23; Status DC Albuterol Sulfate (Ventolin Neb Soln) 2.5 mg 1X ONCE NEB ; Start 12/17/18 at 07: 30; Stop 12/17/18 at 07:31; Status DC Lidocaine HCl (Lidocaine Pf 2% Vial) 5 ml STK-MED ONCE .ROUTE ; Start 12/17/18 at 07:21; Stop 12/17/18 at 07:23; Status DC Succinylcholine Chloride (Anectine) 200 mg STK-MED ONCE .ROUTE ; Start 12/17/18 at 07:21; Stop 12/17/18 at 07:23; Status DC Rocuronium [place] (Zemuron) 50 mg STK-MED ONCE .ROUTE ; Start 12/17/18 at 07:21 ; Stop 12/17/18 at 07:23; Status DC Fentanyl Citrate (Fentanyl 2ml Vial) 100 mcg STK-MED ONCE .ROUTE ; Start at 07:21; Stop 12/17/18 at 07:24; Status DC Cefazolin Sodium/ Dextrose 50 ml @ 100 mls/hr 1X ONCE IV Last administered on 12/17/18at 08:07; Start 12/17/18 at 07:45; Stop 12/17/18 at 08:18; Status DC Bupivacaine HCl/ Epinephrine Bitart (Sensorcain-Mpf Epi 0.5%-[id number]) 30 ml STK -MED ONCE .ROUTE Last administered on 12/17/18at 08:34; Start 12/17/18 at 07:46; Stop 12/17/18 at 07:49; Status DC Neomycin/ Polymyxin/ Bacitracin (Triple Antibiotic Ointment) 1 pkt STK-MED ONCE TP Last administered on 12/17/18at 10:07; Start 12/17/18 at 07:46; Stop 12/17/18 at 07:49; Status DC Neomycin/ Polymyxin/ Bacitracin (Triple Antibiotic Ointment) 1 pkt STK-MED ONCE TP Last administered on 12/17/18at 10:07; Start 12/17/18 at 07:46; Stop 12/17/18 at 07:49; Status DC Neomycin/ Polymyxin/ Bacitracin (Triple Antibiotic Ointment) 1 pkt STK-MED ONCE TP ; Start 12/17/18 at 07:47; Stop 12/17/18 at 07:49; Status DC Dexamethasone Sodium Phosphate (Decadron) 20 mg STK-MED ONCE .ROUTE ; Start 12/17 at 07:54; Stop 12/17/18 at 07:56; Status DC Hydrocortisone Sodium Succinate (Solu-CORTEF) 100 mg STK-MED ONCE .ROUTE ; Start 12/17/18 at 07:54; Stop 12/17/18 at 07:56; Status DC Desflurane (Suprane) 90 ml STK-MED ONCE IH ; Start 12/17/18 at 07:54; Stop at 07:56; Status DC Neostigmine Methylsulfate (Bloxiverz) 10 mg STK-MED ONCE .ROUTE ; Start 12/17/18 at 08:21; Stop 12/17/18 at 08:24; Status DC Glycopyrrolate (Robinul) 1 mg STK-MED ONCE .ROUTE ; Start 12/17/18 at 08:21; Stop 12/17/18 at 08:24; Status DC Phenylephrine HCl (Bogdan-Synephrine Inj) 10 mg STK-MED ONCE .ROUTE ; Start at 08:23; Stop 12/17/18 at 08:26; Status DC Desflurane (Suprane) 60 ml STK-MED ONCE IH ; Start 12/17/18 at 09:23; Stop at 09:26; Status DC Bupivacaine HCl/ Epinephrine Bitart (Sensorcain-Mpf Epi 0.5%-1:[id number]) 30 ml STK -MED ONCE .ROUTE Last administered on 12/17/18at 10:06; Start 12/17/18 at 09:41; Stop 12/17/18 at 09:43; Status DC Morphine Sulfate (Morphine Sulfate) 2 mg PRN Q2HR PRN IV PAIN Last administered on 12/25/18at 09:26; Start 12/17/18 at 10:15; Stop 12/25/18 at 17:54; Status DC Ketorolac Tromethamine (Toradol 15mg Vial) 15 mg Q6HRS IV Last administered on 12/18/18at 05:39; Start 12/17/18 at 12:00; Stop 12/18/18 at 10:00; Status DC Artificial Tears (Artificial Tears) 1 drop PRN Q15MIN PRN OU DRY EYE Last administered on 12/20/18 21:28; Start 12/18/18 at 08:00 Docusate Sodium (Colace) 100 mg DAILY PO Last administered on 01/07/19at 08:45; Start 12/18/18 at 10:00 Throat Lozenges (Cepacol Sore Throat Lozenge) 1 kristyn PRN Q2HRS PRN PO SORE THROAT Last administered on 01/09/19at 16:05; Start 12/18/18 at 14:00 Enoxaparin Sodium (Lovenox 40mg Syringe) 40 mg Q24H SQ Last administered on 09:01; Start 12/19/18 at 09:00 Ondansetron HCl (Zofran) 4 mg PRN Q6HRS PRN IV NAUSEA/VOMITING Last administered on 01/10/19 22:21; Start 12/19/18 at 11:30 Insulin Human Lispro (HumaLOG) 0-5 UNITS TIDWMEALS SQ Last administered on 12/30 18:23; Start 12/19/18 at 17:00; Stop 12/31/18 at 00:05; Status DC Dextrose (Dextrose 50%-Water Syringe) 12.5 gm PRN Q15MIN PRN IV SEE COMMENTS; Start 12/19/18 at 16:45 Levofloxacin/ Dextrose 100 ml @ 100 mls/hr 1X ONCE IV Last administered on 20:56; Start 12/19/18 at 21:00; Stop 12/19/18 at 21:59; Status DC Cefepime HCl (Maxipime) 2 gm Q12HR IVP Last administered on 12/29/18at 10:02; Start 12/21/18 at 10:00; Stop 12/29/18 at 10:37; Status DC Sodium Chloride 1,000 ml @ 125 mls/hr 1X ONCE IV Last administered on 10:43; Start 12/21/18 at 09:45; Stop 12/21/18 at 17:44; Status DC Calcium Carbonate/ Glycine (Tums) 500 mg PRN AFTMEALHC PRN PO INDIGESTION Last administered on 12/21/18 13:10; Start 12/21/18 at 12:15 Lorazepam (Ativan) 1 mg 1X ONCE IV Last administered on 12/21/18 17:50; Start 12/21/18 at 17:30; Stop 12/21/18 at 17:31; Status DC Albuterol Sulfate (Ventolin Neb Soln) 2.5 mg PRN Q2HRS PRN NEB SHORTNESS OF BREATH Last administered on 01/07/19 12:45; Start 12/21/18 at 17:30 Nicotine (Nicoderm Cq 14mg) 1 patch PRN DAILY PRN TD SMOKING CESSATION Last administered on 12/26/18 09:59; Start 12/21/18 at 19:30 Lorazepam (Ativan) 1 mg 1X ONCE IV Last administered on 12/21/18 23:45; Start 12/21/18 at 23:45; Stop 12/21/18 at 23:46; Status DC Lorazepam (Ativan) 1 mg PRN Q4HRS PRN IV ANXIETY / AGITATION Last administered on 12/22/18 11:15; Start 12/21/18 at 23:30; Stop 12/22/18 at 14:42; Status DC Sodium Chloride 1,000 ml @ 250 mls/hr 1X ONCE IV Last administered on 09:15; Start 12/22/18 at 09:15; Stop 12/22/18 at 13:14; Status DC Lidocaine/Sodium Bicarbonate (Buffered Lidocaine 1%) 3 ml STK-MED ONCE .ROUTE ; Start 12/23/18 at 10:33; Stop 12/23/18 at 10:35; Status DC Lidocaine/Sodium Bicarbonate (Buffered Lidocaine 1%) 3 ml 1X ONCE INJ Last administered on 12/23/18 11:24; Start 12/23/18 at 11:00; Stop 12/23/18 at 11:10; Status DC Info (Tpn Per Pharmacy) 1 each PRN DAILY PRN MC SEE COMMENTS Last administered on 01/10/19 13:52; Start 12/23/18 at 14:00 Sodium Chloride 90 meq/Potassium Chloride 50 meq/ Potassium Phosphate 20.4 mmol/ Magnesium Sulfate 18 meq/ Calcium Gluconate 5 meq/ Multivitamins 10 ml/Chromium / Copper/Manganese/ Seleni/Zn 1 ml/ Total Parenteral Nutrition/Amino Acids/ Dextrose/ Fat Emulsion Intravenous 1,512 ml @ 63 mls/hr TPN CONT IV Last administered on 12/23/18 21:37; Start 12/23/18 at 22:00; Stop 12/24/18 at 21:59; Status DC Alprazolam (Xanax) 0.25 mg PRN BID PRN PO ANXIETY / AGITATION Last administered on 12/25/18 09:25; Start 12/23/18 at 23:00; Stop 12/25/18 at 17:54; Status DC Lorazepam (Ativan) 1 mg PRN Q4HRS PRN IV ANXIETY / AGITATION Last administered on 12/24/18at 09:21; Start 12/24/18 at 08:45; Stop 12/24/18 at 10:19; Status DC Pantoprazole Sodium (PROTONIX VIAL for IV PUSH) 40 mg DAILYAC IVP Last administered on 01/11/19at 09:01; Start 12/24/18 at 09:30 Lorazepam (Ativan) 0.5 mg PRN Q4HRS PRN IV ANXIETY / AGITATION Last administered on 12/25/18at 04:47; Start 12/24/18 at 10:30; Stop 12/25/18 at 10:22; Status DC Sodium Chloride 45 meq/Sodium Acetate 45 meq/ Potassium Chloride 50 meq/ Potassium Phosphate 20.4 mmol/Magnesium Sulfate 18 meq/ Calcium Gluconate 5 meq / Multivitamins 10 ml/Chromium/ Copper/Manganese/ Seleni/Zn 1 ml/ Total Parenteral Nutrition/Amino Acids/Dextrose/ Fat Emuls... 1,512 ml @ 63 mls/hr TPN CONT IV Last administered on 12/24/18at 21:57; Start 12/24/18 at 22:00; Stop 12/25/18 at 21:59; Status DC Phenyleph/Shark Oil/Min Oil/Petrol (Preparation H) 1 ranjith PRN Q4HRS PRN RC RECTAL PAIN; Start 12/24/18 at 12:45; Stop 12/25/18 at 20:20; Status DC Sodium Chloride 45 meq/Sodium Acetate 45 meq/ Potassium Chloride 50 meq/ Potassium Phosphate 20.4 mmol/Magnesium Sulfate 18 meq/ Calcium Gluconate 5 meq / Multivitamins 10 ml/Chromium/ Copper/Manganese/ Seleni/Zn 1 ml/ Total Parenteral Nutrition/Amino Acids/Dextrose/ Fat Emuls... 1,512 ml @ 63 mls/hr TPN CONT IV Last administered on 12/26/18at 00:34; Start 12/25/18 at 22:00; Stop 12/26/18 at 21:59; Status DC Neomycin/ Polymyxin/ Bacitracin (Triple Antibiotic Ointment) 1 pkt PRN TID PRN TP skin around rectum, post op Last administered on 01/05/19at 08:07; Start at 14:30 Alprazolam (Xanax) 0.25 mg PRN Q8HRS PRN PO ANXIETY / AGITATION Last administered on 01/07/19 13:01; Start 12/25/18 at 18:00 Morphine Sulfate (Morphine Sulfate) 2 mg PRN Q6HRS PRN IV PAIN Last administered on 12/29/18at 21:47; Start 12/25/18 at 18:00; Stop 12/30/18 at 03:17 ; Status DC Guaifenesin (Mucinex) 600 mg BID PO Last administered on 12/26/18at 21:26; Start 12/26/18 at 11:00 Guaifenesin (Mucinex) 600 mg BID PO ; Start 12/26/18 at 11:00; Status UNV Guaifenesin/ Codeine Phosphate (Robitussin Ac) 5 ml PRN Q6HRS PRN PO COUGH Last administered on 12/26/18at 10:41; Start 12/26/18 at 10:30 Sodium Acetate 90 meq/Potassium Chloride 50 meq/ Potassium Phosphate 13.6 mmol/ Magnesium Sulfate 18 meq/ Calcium Gluconate 5 meq/ Multivitamins 10 ml/Chromium / Copper/Manganese/ Seleni/Zn 1 ml/ Total Parenteral Nutrition/Amino Acids/ Dextrose/ Fat Emulsion Intravenous 1,512 ml @ 63 mls/hr TPN CONT IV Last administered on 12/26/18at 21:37; Start 12/26/18 at 22:00; Stop 12/28/18 at 01:28 ; Status DC Benzocaine (Hurricaine One) 1 spray 1X ONCE MM ; Start 12/26/18 at 19:15; Stop 12/26/18 at 19:16; Status DC Acetaminophen (Tylenol) 650 mg PRN Q6HRS PRN PO MILD PAIN / TEMP Last administered on 12/27/18at 04:39; Start 12/26/18 at 21:00 Benzocaine (Hurricaine One) 1 spray 1X ONCE MM Last administered on 12/27/18at 09:00; Start 12/27/18 at 09:15; Stop 12/27/18 at 09:16; Status DC Sodium Acetate 90 meq/Potassium Chloride 50 meq/ Potassium Phosphate 13.6 mmol/ Magnesium Sulfate 15 meq/ Calcium Gluconate 5 meq/ Multivitamins 10 ml/Chromium / Copper/Manganese/ Seleni/Zn 1 ml/ Total Parenteral Nutrition/Amino Acids/ Dextrose/ Fat Emulsion Intravenous 1,512 ml @ 63 mls/hr TPN CONT IV ; Start at 22:00; Stop 12/28/18 at 21:59; Status Cancel Sodium Acetate 90 meq/Potassium Chloride 50 meq/ Potassium Phosphate 13.6 mmol/ Magnesium Sulfate 15 meq/ Calcium Gluconate 5 meq/ Multivitamins 10 ml/Chromium / Copper/Manganese/ Seleni/Zn 1 ml/ Total Parenteral Nutrition/Amino Acids/ Dextrose/ Fat Emulsion Intravenous 1,512 ml @ 63 mls/hr TPN CONT IV ; Start at 22:00; Stop 12/28/18 at 21:59; Status DC Lidocaine/Sodium Bicarbonate (Buffered Lidocaine 1%) 3 ml 1X ONCE INJ ; Start 12/28/18 at 09:00; Stop 12/28/18 at 09:01; Status Cancel Benzocaine (Hurricaine One) 1 spray 1X ONCE MM Last administered on 12/28/18at 09:32; Start 12/28/18 at 09:30; Stop 12/28/18 at 09:33; Status DC Sodium Acetate 90 meq/Potassium Chloride 50 meq/ Potassium Phosphate 13.6 mmol/ Magnesium Sulfate 15 meq/ Calcium Gluconate 5 meq/ Multivitamins 10 ml/Chromium / Copper/Manganese/ Seleni/Zn 1 ml/ Total Parenteral Nutrition/Amino Acids/ Dextrose/ Fat Emulsion Intravenous 1,512 ml @ 63 mls/hr TPN CONT IV Last administered on 12/28/18at 22:06; Start 12/28/18 at 22:00; Stop 12/29/18 at 21:59 ; Status DC Iohexol (Omnipaque 300 Mg/ml) 400 ml 1X ONCE PO Last administered on at 08:15; Start 12/29/18 at 06:45; Stop 12/29/18 at 06:46; Status DC Info (CONTRAST GIVEN -- Rx MONITORING) 1 each PRN DAILY PRN MC SEE COMMENTS; Start 12/29/18 at 06:45; Stop 12/31/18 at 06:44; Status DC Iohexol (Omnipaque 300 Mg/ml) 400 ml 1X ONCE PO ; Start 12/29/18 at 07:00; Stop 12/29/18 at 07:03; Status DC Info (CONTRAST GIVEN -- Rx MONITORING) 1 each PRN DAILY PRN MC SEE COMMENTS; Start 12/29/18 at 07:15; Stop 12/31/18 at 07:14; Status DC Meropenem 500 mg/ Sodium Chloride 50 ml @ 100 mls/hr Q6HRS IV Last administered on 01/07/19at 06:05; Start 12/29/18 at 12:00; Stop 01/07/19 at 08:34 ; Status DC Multi-Ingredient Ointment (Analgesic [place]) 1 ranjith PRN QID PRN TP MUSCLE PAIN Last administered on 12/29/18at 14:40; Start 12/29/18 at 13:00 Sodium Acetate 90 meq/Potassium Chloride 50 meq/ Potassium Phosphate 13.6 mmol/ Magnesium Sulfate 15 meq/ Calcium Gluconate 5 meq/ Multivitamins 10 ml/Chromium / Copper/Manganese/ Seleni/Zn 1 ml/ Total Parenteral Nutrition/Amino Acids/ Dextrose/ Fat Emulsion Intravenous 1,512 ml @ 63 mls/hr TPN CONT IV Last administered on 12/29/18at 21:40; Start 12/29/18 at 22:00; Stop 12/30/18 at 21:59 ; Status DC Morphine Sulfate (Morphine Sulfate) 2 mg PRN Q4HRS PRN IV SEVERE PAIN Last administered on 12/30/18at 19:50; Start 12/30/18 at 03:30; Stop 12/30/18 at 21:33 ; Status DC Propofol 20 ml @ As Directed STK-MED ONCE IV ; Start 12/30/18 at 12:51; Stop at 12:52; Status DC Dexamethasone Sodium Phosphate (Decadron) 20 mg STK-MED ONCE .ROUTE ; Start at 12:51; Stop 12/30/18 at 12:52; Status DC Lidocaine HCl (Lidocaine Pf 2% Vial) 5 ml STK-MED ONCE .ROUTE ; Start 12/30/18 at 12:51; Stop 12/30/18 at 12:52; Status DC Ondansetron HCl (Zofran) 4 mg STK-MED ONCE .ROUTE ; Start 12/30/18 at 12:51; Stop 12/30/18 at 12:52; Status DC Rocuronium [place] (Zemuron) 50 mg STK-MED ONCE .ROUTE ; Start 12/30/18 at 12:51 ; Stop 12/30/18 at 12:52; Status DC Succinylcholine Chloride (Anectine) 200 mg STK-MED ONCE .ROUTE ; Start 12/30/18 at 12:51; Stop 12/30/18 at 12:52; Status DC Fentanyl Citrate (Fentanyl 5ml Vial) 250 mcg STK-MED ONCE .ROUTE ; Start at 13:49; Stop 12/30/18 at 13:50; Status DC Sodium Chloride 90 meq/Potassium Chloride 50 meq/ Potassium Phosphate 13.6 mmol/ Magnesium Sulfate 15 meq/ Multivitamins 10 ml/Chromium/ Copper/Manganese/ Seleni /Zn 1 ml/ Total Parenteral Nutrition/Amino Acids/Dextrose/ Fat Emulsion Intravenous 1,512 ml @ 63 mls/hr TPN CONT IV Last administered on 12/30/18at 23:43; Start 12/30/18 at 22:00; Stop 12/31/18 at 21:59; Status DC Vasopressin (Vasostrict) 20 unit STK-MED ONCE .ROUTE ; Start 12/30/18 at 15:00; Stop 12/30/18 at 15:01; Status DC Sodium Chloride (SODIUM CHLORIDE 20ml) 20 ml STK-MED ONCE IJ ; Start 12/30/18 at 15:01; Stop 12/30/18 at 15:02; Status DC Albumin Human 500 ml @ As Directed STK-MED ONCE IV ; Start 12/30/18 at 15:01; Stop 12/30/18 at 15:02; Status DC Glycopyrrolate (Robinul) 1 mg STK-MED ONCE .ROUTE ; Start 12/30/18 at 15:21; Stop 12/30/18 at 15:22; Status DC Neostigmine Methylsulfate (Bloxiverz) 10 mg STK-MED ONCE .ROUTE ; Start at 15:21; Stop 12/30/18 at 15:22; Status DC Albuterol/ Ipratropium (Duoneb) 3 ml STK-MED ONCE .ROUTE ; Start 12/30/18 at 15: 45; Stop 12/30/18 at 15:46; Status DC Fentanyl Citrate (Fentanyl 2ml Vial) 100 mcg STK-MED ONCE .ROUTE ; Start at 16:56; Stop 12/30/18 at 16:57; Status DC Ondansetron HCl (Zofran) 4 mg PRN Q6HRS PRN IV NAUSEA/VOMITING; Start 12/30/18 at 17:15; Stop 12/30/18 at 21:35; Status DC Fentanyl Citrate (Fentanyl 2ml Vial) 25 mcg PRN Q5MIN PRN IV MILD PAIN Last administered on 12/30/18at 17:15; Start 12/30/18 at 17:15; Stop 12/30/18 at 21:35 ; Status DC Fentanyl Citrate (Fentanyl 2ml Vial) 50 mcg PRN Q5MIN PRN IV MODERATE TO SEVERE PAIN Last administered on 12/30/18at 17:57; Start 12/30/18 at 17:15; Stop 12/30/18 at 21:35; Status DC Morphine Sulfate (Morphine Sulfate) 1 mg PRN Q10MIN PRN IV SEVERE PAIN; Start 12/30/18 at 17:15; Stop 12/31/18 at 17:14; Status DC Ringer's Solution 1,000 ml @ 30 mls/hr Q24H IV Last administered on 12/30/18at 18:09; Start 12/30/18 at 17:10; Stop 12/30/18 at 21:33; Status DC Lidocaine HCl (Xylocaine-Mpf 1% 2ml Vial) 2 ml 1X PRN PRN ID IV START; Start at 17:15; Stop 12/30/18 at 21:35; Status DC Hydromorphone HCl (Dilaudid) 0.5 mg PRN Q10MIN PRN IV SEV PAIN, Second choice; Start 12/30/18 at 17:15; Stop 12/30/18 at 21:35; Status DC Prochlorperazine Edisylate (Compazine) 5 mg PACU PRN PRN IV NAUSEA, MRX1; Start 12/30/18 at 17:15; Stop 12/30/18 at 21:35; Status DC Albumin Human 100 ml @ 100 mls/hr 1X ONCE IV Last administered on 12/30/18at 22:00; Start 12/30/18 at 22:00; Stop 12/30/18 at 22:59; Status DC Ringer's Solution 500 ml @ 500 mls/hr 1X ONCE IV Last administered on at 22:00; Start 12/30/18 at 22:00; Stop 12/30/18 at 22:59; Status DC Ringer's Solution 1,000 ml @ 100 mls/hr Q10H IV Last administered on at 00:58; Start 12/30/18 at 23:00; Stop 01/01/19 at 09:30; Status DC Hydromorphone HCl (Dilaudid) 0.5 mg PRN Q2HR PRN IV MODERATE PAIN Last administered on 01/04/19at 10:08; Start 12/30/18 at 21:30; Stop 01/04/19 at 15:05 ; Status DC Hydromorphone HCl (Dilaudid) 1 mg PRN Q2HR PRN IV SEVERE PAIN Last administered on 01/04/19at 04:51; Start 12/30/18 at 21:30; Stop 01/04/19 at 15:05 ; Status DC Insulin Human Lispro (HumaLOG) 0-5 UNITS Q6HRS SQ Last administered on at 06:42; Start 12/31/18 at 00:30; Stop 01/06/19 at 12:47; Status DC Sodium Chloride 90 meq/Potassium Chloride 30 meq/ Potassium Phosphate 13.6 mmol/ Magnesium Sulfate 15 meq/ Calcium Gluconate 5 meq/ Multivitamins 10 ml/Chromium / Copper/Manganese/ Seleni/Zn 1 ml/ Total Parenteral Nutrition/Amino Acids/ Dextrose/ Fat Emulsion Intravenous 1,512 ml @ 63 mls/hr TPN CONT IV Last administered on 12/31/18at 21:58; Start 12/31/18 at 22:00; Stop 01/01/19 at 21:59 ; Status DC Sodium Chloride 90 meq/Potassium Chloride 30 meq/ Potassium Phosphate 13.6 mmol/ Magnesium Sulfate 15 meq/ Calcium Gluconate 5 meq/ Multivitamins 10 ml/Chromium / Copper/Manganese/ Seleni/Zn 1 ml/ Total Parenteral Nutrition/Amino Acids/ Dextrose/ Fat Emulsion Intravenous 1,512 ml @ 63 mls/hr TPN CONT IV Last administered on 01/01/19at 21:09; Start 01/01/19 at 22:00; Stop 01/02/19 at 21:59 ; Status DC Vancomycin HCl (Vanco Per Pharmacy) 1 each PRN DAILY PRN MC SEE COMMENTS Last administered on 01/03/19at 10:18; Start 01/01/19 at 11:15; Stop 01/03/19 at 11:23 ; Status DC Vancomycin HCl 2 gm/Sodium Chloride 500 ml @ 250 mls/hr ONCE ONCE IV Last administered on 01/01/19at 12:28; Start 01/01/19 at 12:00; Stop 01/01/19 at 13:59 ; Status DC Vancomycin HCl 1.25 gm/Sodium Chloride 250 ml @ 166.667 mls/hr Q24H IV ; Start 01/01/19 at 12:00; Status Cancel Vancomycin HCl (Vancomycin Trough Level) 1 each 1X ONCE MC ; Start 01/03/19 at 11:30; Stop 01/03/19 at 11:31; Status Cancel Vancomycin HCl 1.25 gm/Sodium Chloride 250 ml @ 166.667 mls/hr Q24H IV Last administered on 01/02/19at 13:04; Start 01/02/19 at 12:00; Stop 01/03/19 at 11:23 ; Status DC Albuterol/ Ipratropium (Duoneb) 3 ml 1X ONCE NEB Last administered on at 08:19; Start 01/02/19 at 07:30; Stop 01/02/19 at 07:31; Status DC Albuterol/ Ipratropium (Duoneb) 3 ml Q4HRS NEB Last administered on 01/11/19at 07:42; Start 01/02/19 at 12:00 Furosemide (Lasix) 20 mg 1X ONCE IVP Last administered on 01/02/19at 07:36; Start 01/02/19 at 07:30; Stop 01/02/19 at 07:31; Status DC Sodium Chloride 90 meq/Potassium Chloride 30 meq/ Potassium Phosphate 13.6 mmol/ Magnesium Sulfate 15 meq/ Calcium Gluconate 5 meq/ Multivitamins 10 ml/Chromium / Copper/Manganese/ Seleni/Zn 1 ml/ Total Parenteral Nutrition/Amino Acids/ Dextrose/ Fat Emulsion Intravenous 1,512 ml @ 63 mls/hr TPN CONT IV Last administered on 01/02/19at 21:20; Start 01/02/19 at 22:00; Stop 01/03/19 at 21:59 ; Status DC Sodium Chloride 90 meq/Potassium Chloride 30 meq/ Potassium Phosphate 13.6 mmol/ Magnesium Sulfate 15 meq/ Multivitamins 10 ml/Chromium/ Copper/Manganese/ Seleni /Zn 1 ml/ Insulin Human Regular 10 unit/ Total Parenteral Nutrition/Amino Acids/ Dextrose/ Fat Emulsion Intravenous 1,512 ml @ 63 mls/hr TPN CONT IV Last administered on 01/03/19at 22:07; Start 01/03/19 at 22:00; Stop 01/04/19 at 21:59 ; Status DC Sodium Chloride 90 meq/Potassium Chloride 30 meq/ Potassium Phosphate 13.6 mmol/ Magnesium Sulfate 15 meq/ Multivitamins 10 ml/Chromium/ Copper/Manganese/ Seleni /Zn 1 ml/ Insulin Human Regular 10 unit/ Total Parenteral Nutrition/Amino Acids/ Dextrose/ Fat Emulsion Intravenous 1,512 ml @ 63 mls/hr TPN CONT IV Last administered on 01/04/19at 22:11; Start 01/04/19 at 22:00; Stop 01/05/19 at 21:59 ; Status DC Hydromorphone HCl (Dilaudid) 0.5 mg PRN Q6HRS PRN IV MODERATE PAIN Last administered on 01/11/19at 10:21; Start 01/04/19 at 15:15 Hydromorphone HCl (Dilaudid) 1 mg PRN Q6HRS PRN IV SEVERE PAIN Last administered on 01/05/19at 02:18; Start 01/04/19 at 15:15 Dextrose (Dextrose 50%-Water Syringe) 25 gm STK-MED ONCE IV ; Start 01/04/19 at 08:50; Stop 01/05/19 at 08:26; Status DC Sodium Chloride 90 meq/Potassium Chloride 30 meq/ Potassium Phosphate 13.6 mmol/ Magnesium Sulfate 15 meq/ Multivitamins 10 ml/Chromium/ Copper/Manganese/ Seleni /Zn 1 ml/ Insulin Human Regular 10 unit/ Total Parenteral Nutrition/Amino Acids/ Dextrose/ Fat Emulsion Intravenous 1,512 ml @ 63 mls/hr TPN CONT IV Last administered on 01/05/19at 21:52; Start 01/05/19 at 22:00; Stop 01/06/19 at 21:59 ; Status DC Budesonide (Pulmicort) 0.5 mg RTBID NEB Last administered on 01/11/19at 07:42; Start 01/05/19 at 12:00 Insulin Glargine (Lantus) 12 units DAILY10 SQ Last administered on 01/09/19at 09 :36; Start 01/06/19 at 13:30; Stop 01/09/19 at 12:16; Status DC Sodium Chloride 40 meq/Potassium Chloride 30 meq/ Potassium Phosphate 13.6 mmol/ Magnesium Sulfate 15 meq/ Multivitamins 10 ml/Chromium/ Copper/Manganese/ Seleni /Zn 1 ml/ Insulin Human Regular 10 unit/ Total Parenteral Nutrition/Amino Acids/ Dextrose/ Fat Emulsion Intravenous 1,512 ml @ 63 mls/hr TPN CONT IV Last administered on 01/07/19at 00:36; Start 01/06/19 at 22:00; Stop 01/07/19 at 21:59 ; Status DC Insulin Human Lispro (HumaLOG) 12 units 1X ONCE SQ Last administered on at 14:18; Start 01/06/19 at 13:00; Stop 01/06/19 at 13:01; Status DC Insulin Human Lispro (HumaLOG) 0-9 UNITS Q6HRS SQ Last administered on at 12:16; Start 01/06/19 at 18:00 Insulin Human Lispro (HumaLOG) 3 units 1X ONCE SQ Last administered on at 00:33; Start 01/07/19 at 00:30; Stop 01/07/19 at 00:31; Status DC Insulin Human Lispro (HumaLOG) 20 units 1X ONCE SQ Last administered on at 12:22; Start 01/07/19 at 12:15; Stop 01/07/19 at 12:16; Status DC Insulin Human Lispro (HumaLOG) 10 units TIDAC SQ Last administered on at 09:19; Start 01/07/19 at 16:30 Sodium Chloride 40 meq/Potassium Chloride 30 meq/ Potassium Phosphate 13.6 mmol/ Magnesium Sulfate 15 meq/ Multivitamins 10 ml/Chromium/ Copper/Manganese/ Seleni /Zn 1 ml/ Insulin Human Regular 10 unit/ Total Parenteral Nutrition/Amino Acids/ Dextrose/ Fat Emulsion Intravenous 1,512 ml @ 63 mls/hr TPN CONT IV Last administered on 01/07/19at 21:45; Start 01/07/19 at 22:00; Stop 01/08/19 at 21:59 ; Status DC Insulin Human Lispro (HumaLOG) 10 units 1X ONCE SQ Last administered on at 14:19; Start 01/07/19 at 14:00; Stop 01/07/19 at 14:01; Status DC Benzocaine (Hurricaine One) 1 spray 1X ONCE MM Last administered on 01/08/19at 09:44; Start 01/08/19 at 09:30; Stop 01/08/19 at 09:31; Status DC Lorazepam (Ativan) 0.5 mg PRN Q4HRS PRN IV ANXIETY / AGITATION Last administered on 01/11/19at 09:01; Start 01/08/19 at 10:45 Sodium Chloride 40 meq/Potassium Chloride 30 meq/ Potassium Phosphate 10 mmol/ Magnesium Sulfate 15 meq/ Multivitamins 10 ml/Chromium/ Copper/Manganese/ Seleni /Zn 1 ml/ Insulin Human Regular 10 unit/ Total Parenteral Nutrition/Amino Acids/ Dextrose/ Fat Emulsion Intravenous 1,512 ml @ 63 mls/hr TPN CONT IV Last administered on 01/08/19at 22:00; Start 01/08/19 at 22:00; Stop 01/09/19 at 21:59 ; Status DC Saliva Substitute (Biotene Moisturizing Mouth) 2 spray PRN Q15MIN PRN PO DRY MOUTH Last administered on 01/08/19at 14:55; Start 01/08/19 at 14:45 Insulin Glargine (Lantus) 18 units DAILY10 SQ Last administered on 01/11/19at 09 :18; Start 01/10/19 at 10:00 Sodium Chloride 40 meq/Potassium Chloride 30 meq/ Potassium Phosphate 10 mmol/ Magnesium Sulfate 15 meq/ Multivitamins 10 ml/Chromium/ Copper/Manganese/ Seleni /Zn 1 ml/ Insulin Human Regular 10 unit/ Total Parenteral Nutrition/Amino Acids/ Dextrose/ Fat Emulsion Intravenous 1,512 ml @ 63 mls/hr TPN CONT IV Last administered on 01/09/19at 22:22; Start 01/09/19 at 22:00; Stop 01/10/19 at 21:59 ; Status DC Duloxetine HCl (Cymbalta) 60 mg DAILY PO ; Start 01/11/19 at 09:00 Memantine (Namenda) 10 mg DAILY PO ; Start 01/11/19 at 09:00 Sodium Chloride 40 meq/Potassium Acetate 50 meq/ Potassium Phosphate 10 mmol/ Magnesium Sulfate 18 meq/ Multivitamins 10 ml/Chromium/ Copper/Manganese/ Seleni /Zn 1 ml/ Insulin Human Regular 10 unit/ Total Parenteral Nutrition/Amino Acids/ Dextrose/ Fat Emulsion Intravenous 1,512 ml @ 63 mls/hr TPN CONT IV Last administered on 01/10/19at 22:18; Start 01/10/19 at 22:00; Stop 01/11/19 at 21:59 Active Scripts Active Chlorhexidine Gluconate 473 Ml Mouthwash 473 Ml MM BID 7 Days Vitamin C (Ascorbate Calcium) 500 Mg Tablet 500 Mg PO DAILY 30 Days Slow Release Iron (Ferrous Sulfate) 250 Mg Tablet.er 250 Mg PO DAILY 30 Days Protonix (Pantoprazole Sodium) 40 Mg Granpkt.dr 40 Mg PO DAILY 30 Days Reported Alprazolam 0.25 Mg Tablet 0.25 Mg PO DAILY Metformin Hcl Er (Metformin Hcl) 500 Mg Tab.er.24h 1 Tab PO DAILY Namenda (Memantine Hcl) 10 Mg Tablet 1 Tab PO BID Losartan Potassium 100 Mg Tablet 100 Mg PO DAILY Spironolactone 25 Mg Tablet 1 Tab PO DAILY Ventolin Hfa Inhaler (Albuterol Sulfate) 18 Gm Hfa.aer.ad 2 Puff INH Q4HRS Cymbalta (Duloxetine Hcl) 20 Mg Capsule.dr 90 Mg PO DAILY Requip (Ropinirole Hcl) 1 Mg Tablet 3 Mg PO DAILY Amlodipine Besylate 10 Mg Tablet 10 Mg PO DAILY Vitals/I & O Vital Sign - Last 24 Hours 01/10/19 01/10/19 01/10/19 01/10/19 11:00 11:02 11:09 15:00 Temp 97.3 97.5 97.3 97.5 Pulse 84 88 Resp 20 20 B/P (MAP) 116/71 (86) 128/75 (92) Pulse Ox 98 95 95 O2 Delivery Nasal Cannula Nasal Cannula Nasal Cannula Nasal Cannula O2 Flow Rate 3.0 3.0 3.0 3.0 01/10/19 01/10/19 01/10/19 01/10/19 15:24 16:11 19:00 20:00 Temp 97.5 97.5 Pulse 86 Resp 18 B/P (MAP) 147/78 (101) Pulse Ox 96 O2 Delivery Nasal Cannula Nasal Cannula Nasal Cannula Nasal Cannula O2 Flow Rate 3.0 3.0 3.0 2.0 01/10/19 01/10/19 01/10/19 01/10/19 20:08 22:05 23:00 23:12 Temp 97.8 97.8 Pulse 85 Resp 20 B/P (MAP) 112/71 (85) Pulse Ox 100 O2 Delivery Nasal Cannula Nasal Cannula Nasal Cannula Nasal Cannula O2 Flow Rate 3.0 2.0 3.0 3.0 01/11/19 01/11/19 01/11/19 01/11/19 03:00 04:05 04:05 04:36 Temp 97.6 97.6 Pulse 81 Resp 22 B/P (MAP) 117/76 (90) Pulse Ox 100 100 100 O2 Delivery Nasal Cannula Nasal Cannula Nasal Cannula Nasal Cannula O2 Flow Rate 3.0 3.0 3.0 3.0 01/11/19 01/11/19 01/11/19 01/11/19 07:00 07:41 08:00 10:21 Temp 97.7 97.7 Pulse 97 Resp 18 B/P (MAP) 138/87 (104) Pulse Ox 100 98 O2 Delivery Nasal Cannula Nasal Cannula Nasal Cannula Nasal Cannula O2 Flow Rate 2.0 3.0 3.0 3.0 Intake and Output 01/10/19 01/10/19 01/11/19 14:59 22:59 06:59 Output Total 0 ml Balance 0 ml SON LAU MD Jan 11, 2019 10:42
[2019-01-11 11:00] VITALS: BP 97/65
[2019-01-11] MEDS: ONDANSETRON PF 4 MG/2 ML VIAL. IV PRN (12:19)
[2019-01-11] MEDS: TPN PER PHARMACY MC PRN (13:11)
--- NOTE | 2019-01-11 13:34 | NUR ---
Pharmacy TPN Dosing Note S: ELLE LATHAM is a 72 year old F Currently receiving Central Continuous TPN started 12/23/18 B:Pertinent PMH: SBO Height: 5 feet, 7 inches Weight: 85.883860 kg Current diet: npo LABS: Sodium: 144 Potassium: 3.9 Chloride: 107 Calcium: 8.6 Corrected Calcium: 10.28 Magnesium: 1.8 CO2: 28 SCr: 0.6 Glucose: 209 Albumin: 1.9 AST: 34 ALT: 58 TPN FORMULA: TPN TYPE: Central Continuous AMINO ACIDS: 85 gm DEXTROSE: 260 gm LIPIDS: 40 gm SODIUM CHLORIDE: 40 mEq SODIUM ACETATE: - mEq SODIUM PHOSPHATE: - mmol POTASSIUM CHLORIDE: - mEq POTASSIUM ACETATE: 50 mEq POTASSIUM PHOSPHATE: 10 mmol MAGNESIUM: 18 mEq CALCIUM: 0 mEq INSULIN: 10 units MULTIPLE VITAMIN: 10 ml TRACE ELEMENTS: MTE5 1 ml(s) TPN PLAN: cont same tpn, START LIQUID DIET. R: Continue TPN AT 63ML/HR Will monitor electrolytes, glucose, and tolerance to TPN. JAMILA WILKINS [facility], 01/11/19 [id number]
--- NOTE | 2019-01-11 14:43 | PDOC ---
Subjective: Subjective: Passing gas and stool. Objective: Objective: Per RN - nausea and distention, plan to keep NG in place w/ possible removal tomorrow and trial of clears. Vital Signs: Vital Signs Date Time Temp Pulse Resp B/P (MAP) Pulse Ox O2 Delivery O2 Flow Rate FiO2 01/11/19 11:15 Nasal Cannula 3.0 01/11/19 11:00 97.6 90 18 97/65 (76) 97 97.6 Labs: Laboratory Tests Test 01/10/19 17:51 01/11/19 00:28 01/11/19 06:24 01/11/19 11:19 Glucose (Fingerstick) 90 mg/dL 108 mg/dL 153 mg/dL 101 mg/dL PE: GEN: NAD, up to chair LUNGS: NC HEART: RRR ABD: distended, softer NEURO/PSYCH: A & O 3 A/P: S/p extended right hemicolectomy, ileus Leukocytosis, anemia COPD -- NG clamped. Continue per surgery. RADHA JUSTICE Jan 11, 2019 14:43
[2019-01-11 15:00] VITALS: BP 124/72
--- NOTE | 2019-01-11 15:31 | RAD ---
EXAM: Abdomen, single view. HISTORY: Ileus. COMPARISON: 01/05/2019 FINDINGS: A frontal view of the abdomen is obtained. There has been no significant change in distended air-filled bowel throughout the upper and mid abdomen. There is a nasogastric tube within the stomach. There is instrumented posterior spinal fusion and laminectomy decompression at L2-L4. There are anastomotic sutures within the right lateral abdomen. There is gas within the rectum. IMPRESSION: No significant change in distended air-filled bowel throughout the upper and mid abdomen. The differential includes partial distal obstruction and ileus. Electronically signed by: Judy Valencia MD (01/11/2019 3:28 PM) [id number]
[2019-01-11 19:30] VITALS: BP 113/74
[2019-01-11] MEDS: rOPINIRole 1 MG TABLET. PO SCH (20:34)
[2019-01-11] MEDS ORDERED: AMINO ACID IV SCH ×10 (22:00)
[2019-01-11] MEDS ORDERED: TOTAL PARENTERAL NUTRITION IV SCH ×10 (22:00)
[2019-01-11] MEDS ORDERED: [UNRECOGNIZED DRUG - OTHER] IV SCH ×10 (22:00)
[2019-01-11] MEDS ORDERED: DEXTROSE 70% IV SCH ×10 (22:00)
[2019-01-11 23:20] VITALS: BP 127/76
[2019-01-12] MEDS: IPRATRPIUM/ALBUTEROL 0.5/2.5MG 3 ML NEBU. NEB SCH ×8 (03:30→23:45)
[2019-01-12 03:37] VITALS: BP 114/78
[2019-01-12 05:55] LABS: CALCIUM 8.1 mg/dL (8.5-10.1); CREATININE 0.7 mg/dL (0.6-1.0); GFR 98.7; POTASSIUM 4.1 mmol/L (3.5-5.1)
[2019-01-12] MEDS: INSULIN LISPRO 300 UNITS/3 ML INSULN.PEN. SQ SCH ×7 (06:00→18:00)
[2019-01-12] MEDS: PANTOPRAZOLE IV PUSH 40 MG VIAL. IVP SCH (06:16)
[2019-01-12] MEDS: BUDESONIDE 0.5 MG/2 ML NEBU. NEB SCH ×2 (06:54→20:38)
[2019-01-12 07:00] VITALS: BP 123/69
[2019-01-12] MEDS: FERROUS SULFATE 325 MG TABLET. PO SCH (08:00)
[2019-01-12] MEDS: ASCORBIC ACID 500 MG TABLET PO SCH (08:02)
[2019-01-12] MEDS: MEMANTINE 10 MG TABLET. PO SCH (08:02)
[2019-01-12] MEDS: amLODIPine BESYLATE 10 MG TABLET PO SCH (08:02)
[2019-01-12] MEDS: DULoxetine HCL 30 MG CAPSULE.DR PO SCH (08:02)
[2019-01-12] MEDS: DOCUSATE SODIUM 100 MG CAPSULE. PO SCH (08:02)
[2019-01-12] MEDS: SPIRONOLACTONE 25 MG TABLET PO SCH (08:02)
[2019-01-12] MEDS: LOSARTAN POTASSIUM 50 MG TABLET. PO SCH (08:02)
[2019-01-12] MEDS: ENOXAPARIN 40 MG/0.4 ML SYRINGE. SQ SCH (08:03)
[2019-01-12] MEDS: CHLORHEXIDINE 0.12% 15 ML MOUTHWASH. MM SCH ×2 (08:03→22:05)
[2019-01-12] MEDS: ONDANSETRON PF 4 MG/2 ML VIAL. IV PRN ×2 (08:04→19:49)
[2019-01-12] MEDS: HYDROmorphone 2 MG/ML VIAL IV PRN ×2 (08:04→16:14)
--- NOTE | 2019-01-12 09:00 | PDOC ---
SURGICAL PROGRESS NOTE Subjective Patient has passed flatus and more stools still having some nausea was able to tolerate 48 hours of clamped NG tube without emesis Vital Signs Vital Signs Date Time Temp Pulse Resp B/P (MAP) Pulse Ox O2 Delivery O2 Flow Rate FiO2 01/12/19 08:04 Nasal Cannula 3.0 01/12/19 06:55 97 01/12/19 03:37 98.0 90 22 114/78 (90) 98.0 I&O Intake and Output 01/12/19 06:59 Intake Total 0 ml Output Total 201 ml Balance -201 ml Intake Oral 0 ml Stool Total 1 ml Gastric Drainage Total 200 ml # Voids 4 # Bowel Movements 2 PATIENT HAS A PILLAI: No General: Alert, Oriented X3, Cooperative, mild distress Abdomen: Normal bowel sounds, Soft, No tenderness, Other (serous drainage from [place]) Labs Laboratory Tests Test 01/10/19 11:41 01/10/19 17:51 01/11/19 00:28 01/11/19 06:24 Glucose (Fingerstick) 179 mg/dL (70-99) 90 mg/dL (70-99) 108 mg/dL (70-99) 153 mg/dL (70-99) Test 01/11/19 11:19 01/11/19 16:47 01/12/19 00:31 01/12/19 05:10 Glucose (Fingerstick) 101 mg/dL (70-99) 82 mg/dL (70-99) 99 mg/dL (70-99) Sodium Level 142 mmol/L (136-145) Potassium Level 4.1 mmol/L (3.5-5.1) Chloride Level 108 mmol/L (98-107) Carbon Dioxide Level 28 mmol/L (21-32) Anion Gap 6 (6-14) Blood Urea Nitrogen 25 mg/dL (7-20) Creatinine 0.7 mg/dL (0.6-1.0) Estimated GFR (Cockcroft-Gault) 98.7 Glucose Level 114 mg/dL (70-99) Calcium Level 8.1 mg/dL (8.5-10.1) Test 01/12/19 06:17 Glucose (Fingerstick) 110 mg/dL (70-99) Laboratory Tests Test 01/11/19 11:19 01/11/19 16:47 01/12/19 00:31 01/12/19 05:10 Glucose (Fingerstick) 101 mg/dL (70-99) 82 mg/dL (70-99) 99 mg/dL (70-99) Sodium Level 142 mmol/L (136-145) Potassium Level 4.1 mmol/L (3.5-5.1) Chloride Level 108 mmol/L (98-107) Carbon Dioxide Level 28 mmol/L (21-32) Anion Gap 6 (6-14) Blood Urea Nitrogen 25 mg/dL (7-20) Creatinine 0.7 mg/dL (0.6-1.0) Estimated GFR (Cockcroft-Gault) 98.7 Glucose Level 114 mg/dL (70-99) Calcium Level 8.1 mg/dL (8.5-10.1) Test 01/12/19 06:17 Glucose (Fingerstick) 110 mg/dL (70-99) Assessment/Plan Colectomy for AVM slow return of bowel function Will DC NG tube is been clamped for 48 hours Will not advance diet yet maintained on TPN ice chips and water only DAYLIN WEI MD Jan 12, 2019 09:00
--- NOTE | 2019-01-12 09:13 | PDOC ---
Infectious Disease Note Subjective Subjective pt is feeling ok, still has NG ROS ROS nausea +, no vomiting, does have abd distention Vital Sign Vital Signs Vital Signs Date Time Temp Pulse Resp B/P (MAP) Pulse Ox O2 Delivery O2 Flow Rate FiO2 01/12/19 08:30 Nasal Cannula 3.0 01/12/19 07:00 97.8 88 18 123/69 (87) 94 97.8 Physical Exam PHYSICAL EXAM GENERAL: Sitting in the chair, relaxed appearance, alert. HEENT: Oral cavity pink, dry NECK: Supple LUNGS: Diminished aeration bases, nonlabored HEART: S1, S2 ABDOMEN: Distended, NT to light palpation. + BS, dressing. mild serous fluid EXTREMITIES: LLE 1+ edema. no cyanosis SKIN: No rash. NEUROLOGIC: Alert, responding appropriately RUE-PICC (12/23) clean Labs Lab Laboratory Tests Test 01/11/19 11:19 01/11/19 16:47 01/12/19 00:31 01/12/19 05:10 Glucose (Fingerstick) 101 mg/dL (70-99) 82 mg/dL (70-99) 99 mg/dL (70-99) Sodium Level 142 mmol/L (136-145) Potassium Level 4.1 mmol/L (3.5-5.1) Chloride Level 108 mmol/L (98-107) Carbon Dioxide Level 28 mmol/L (21-32) Anion Gap 6 (6-14) Blood Urea Nitrogen 25 mg/dL (7-20) Creatinine 0.7 mg/dL (0.6-1.0) Estimated GFR (Cockcroft-Gault) 98.7 Glucose Level 114 mg/dL (70-99) Calcium Level 8.1 mg/dL (8.5-10.1) Test 01/12/19 06:17 Glucose (Fingerstick) 110 mg/dL (70-99) Micro Microbiology 12/19/18 Blood Culture - Preliminary, Resulted NO GROWTH AFTER 1 DAY Objective Assessment Leukocytosis S/P rt hemicolectomy COPD Pneumonia treated Ileus Plan Plan of Care Continue to observe off antibiotics Monitor WBC/temp - if worsens will need CT abd/pelv maintain aspiration precautions d/w Dr Montoya D/w nursing EDNI SALINAS MD Jan 12, 2019 09:13
--- NOTE | 2019-01-12 09:46 | PDOC ---
PULMONARY PROGRESS NOTES Subjective NOT MORE SOA Vitals Vital Signs Date Time Temp Pulse Resp B/P (MAP) Pulse Ox O2 Delivery O2 Flow Rate FiO2 01/12/19 08:30 Nasal Cannula 3.0 01/12/19 07:00 97.8 88 18 123/69 (87) 94 97.8 ROS: No Nausea, No Chest Pain General: Alert, Mild Distress HEENT: Other (nc at perrl nose throat clear neck +JVD no lad, no thyromegaly ) Lungs: Clear Cardiovascular: S1, S2 Abdomen: Soft, Non-tender, Other (distended) Neuro Exam: Alert, Oriented Extremities: No Edema Skin: Warm Labs Laboratory Tests Test 01/10/19 11:41 01/10/19 17:51 01/11/19 00:28 01/11/19 06:24 Glucose (Fingerstick) 179 mg/dL (70-99) 90 mg/dL (70-99) 108 mg/dL (70-99) 153 mg/dL (70-99) Test 01/11/19 11:19 01/11/19 16:47 01/12/19 00:31 01/12/19 05:10 Glucose (Fingerstick) 101 mg/dL (70-99) 82 mg/dL (70-99) 99 mg/dL (70-99) Sodium Level 142 mmol/L (136-145) Potassium Level 4.1 mmol/L (3.5-5.1) Chloride Level 108 mmol/L (98-107) Carbon Dioxide Level 28 mmol/L (21-32) Anion Gap 6 (6-14) Blood Urea Nitrogen 25 mg/dL (7-20) Creatinine 0.7 mg/dL (0.6-1.0) Estimated GFR (Cockcroft-Gault) 98.7 Glucose Level 114 mg/dL (70-99) Calcium Level 8.1 mg/dL (8.5-10.1) Test 01/12/19 06:17 Glucose (Fingerstick) 110 mg/dL (70-99) Laboratory Tests Test 01/11/19 11:19 01/11/19 16:47 01/12/19 00:31 01/12/19 05:10 Glucose (Fingerstick) 101 mg/dL (70-99) 82 mg/dL (70-99) 99 mg/dL (70-99) Sodium Level 142 mmol/L (136-145) Potassium Level 4.1 mmol/L (3.5-5.1) Chloride Level 108 mmol/L (98-107) Carbon Dioxide Level 28 mmol/L (21-32) Anion Gap 6 (6-14) Blood Urea Nitrogen 25 mg/dL (7-20) Creatinine 0.7 mg/dL (0.6-1.0) Estimated GFR (Cockcroft-Gault) 98.7 Glucose Level 114 mg/dL (70-99) Calcium Level 8.1 mg/dL (8.5-10.1) Test 01/12/19 06:17 Glucose (Fingerstick) 110 mg/dL (70-99) Medications Active Scripts Medications Dose Route/Sig Max Daily Dose Days Date Category Chlorhexidine Gluconate 473 Ml Mouthwash 473 Ml MM BID 7 12/10/18 Rx Vitamin C (Ascorbate Calcium) 500 Mg Tablet 500 Mg PO DAILY 30 11/22/18 Rx Slow Release Iron (Ferrous Sulfate) 250 Mg Tablet.er 250 Mg PO DAILY 30 11/22/18 Rx Protonix (Pantoprazole Sodium) 40 Mg Granpkt.dr 40 Mg PO DAILY 30 11/22/18 Rx Metformin Hcl Er (Metformin Hcl) 500 Mg Tab.er.24h 1 Tab PO DAILY 11/12/16 Reported Namenda (Memantine Hcl) 10 Mg Tablet 1 Tab PO BID 11/12/16 Reported Losartan Potassium 100 Mg Tablet 100 Mg PO DAILY 11/12/16 Reported Spironolactone 25 Mg Tablet 1 Tab PO DAILY 11/12/16 Reported Ventolin Hfa Inhaler (Albuterol Sulfate) 18 Gm Hfa.aer.ad 2 Puff INH Q4HRS 11/11/16 Reported Cymbalta (Duloxetine Hcl) 20 Mg Capsule.dr 90 Mg PO DAILY 01/27/16 Reported Requip (Ropinirole Hcl) 1 Mg Tablet 3 Mg PO DAILY 01/27/16 Reported Amlodipine Besylate 10 Mg Tablet 10 Mg PO DAILY 01/27/16 Reported Comments cxr reviewed, b lat ll effusion/atelectasis/infilt L>R Impression . 1. Acute hypoxic respiratory failure MULTIFACTORIAL EXPECTED POST SURGICAL INTERVENTION 2. Gastrointestinal bleed/cecal ulceration by colonoscopy, status post laparoscopic-assisted right colon resection and hemorrhoidectomy 12/17 3. ileus S/P SECOND SURGERY 12/30 SEE BELOW 4. Underlying suspected severe chronic obstructive pulmonary disease. 5. Abnormal CT chest with focal opacity in the right upper lobe, could be nodule/ATELECTASIS Date: 12/17/2018 Preoperative diagnosis: GI bleed cecal ulceration by colonoscopy with active bleeding hemorrhoids Postoperative diagnosis: Same Procedure: Laparoscopic-assisted right colon resection and hemorrhoidectomy Surgeon: Jan Specimen: Right colon and hemorrhoids Date: 12/30/2018 Preoperative diagnosis: Small bowel obstruction Postoperative diagnosis: Small bowel obstruction at previous anastomotic site Procedure: Exploratory laparotomy with extended right hemicolectomy and primary anastomosis Plan . NEEDS PT OT DIET PER SURGEY RESP STATUS IS COMPENSATED PRN BIPAP FOLLOW UP CT IN 3 MONTHS, dr valentine discussed w DAUGHTER MARIA ALEJANDRA VALENTINE MD Jan 12, 2019 09:46
[2019-01-12] MEDS: INSULIN GLARGINE 300 UNITS/3 ML INSULN.PEN. SQ SCH (10:00)
[2019-01-12 11:00] VITALS: BP 124/81
--- NOTE | 2019-01-12 11:01 | NUR ---
removed pt NG tube at this time. will continue to monitor.
--- NOTE | 2019-01-12 14:52 | PDOC ---
Subjective: Subjective: Pt seen earlier during [employer] downtime. Objective: Objective: Per RN - NG out, trying sips and chips. Stools charted. Vital Signs: Vital Signs Date Time Temp Pulse Resp B/P (MAP) Pulse Ox O2 Delivery O2 Flow Rate FiO2 01/12/19 10:37 100 Nasal Cannula 3.0 01/12/19 07:00 97.8 88 18 123/69 (87) 97.8 Labs: Laboratory Tests Test 01/11/19 16:47 01/12/19 00:31 01/12/19 05:10 01/12/19 06:17 Glucose (Fingerstick) 82 mg/dL 99 mg/dL 110 mg/dL Erythrocyte Sedimentation Rate 45 Sodium Level 142 mmol/L Potassium Level 4.1 mmol/L Chloride Level 108 mmol/L Carbon Dioxide Level 28 mmol/L Anion Gap 6 Blood Urea Nitrogen 25 mg/dL Creatinine 0.7 mg/dL Estimated GFR (Cockcroft-Gault) 98.7 Glucose Level 114 mg/dL Calcium Level 8.1 mg/dL Imaging: KUB 01/11 IMPRESSION: No significant change in distended air-filled bowel throughout the upper and mid abdomen. The differential includes partial distal obstruction and ileus. PE: GEN: NAD LUNGS: NC ABD: distended NEURO/PSYCH: sleeping, not awakened A/P: S/p extended right hemicolectomy, ileus -- Slow to improve. Continue per surgery, monitor labs. RADHA JUSTICE Jan 12, 2019 14:52 ELIZABETH PACHECO MD Jan 12, 2019 14:55
[2019-01-12 15:00] VITALS: BP 122/68
--- NOTE | 2019-01-12 15:08 | NUR ---
SW following. Discussed with RN, pt is out of network for [facility] and [facility] is unable to do the TPN. LATANYA faxed new referral to [facility] (fax: [phone]). LATANYA will continue to follow. RN notified.
[2019-01-12] MEDS: TPN PER PHARMACY MC PRN (15:26)
--- NOTE | 2019-01-12 15:26 | NUR ---
Wound Care Wound care consult for healing hemorrhoidectomy. Pt has reddened area around rectum with what appears to still be remnants of hemorrhoidal tissue. No open areas noted. Recommend vitamin A&D ointment with each brief change. No other wounds noted at this time. WC will sign off, please reconsult if new wounds develop.
--- NOTE | 2019-01-12 15:29 | NUR ---
Pharmacy TPN Dosing Note S: ELLE LATHAM is a 72 year old F Currently receiving Central Continuous TPN started 12/23/18 B:Pertinent PMH: SBO Height: 5 feet, 7 inches Weight: 85.629604 kg Current diet: npo LABS: Sodium: 142 Potassium: 4.1 Chloride: 108 Calcium: 8.1 Corrected Calcium: 9.78 Magnesium: 1.8 CO2: 28 SCr: 0.7 Glucose: 110 Albumin: 1.9 AST: 34 ALT: 58 TPN FORMULA: TPN TYPE: Central Continuous AMINO ACIDS: 85 gm DEXTROSE: 260 gm LIPIDS: 40 gm SODIUM CHLORIDE: 40 mEq POTASSIUM ACETATE: 50 mEq POTASSIUM PHOSPHATE: 10 mmol MAGNESIUM: 18 mEq INSULIN: 10 units MULTIPLE VITAMIN: 10 ml TRACE ELEMENTS: MTE5 1 ml(s) TPN PLAN: Continue same TPN. Lytes ordered for tomorrow. R: Continue TPN Will monitor electrolytes, glucose, and tolerance to TPN. Umair Oconnell, [facility], 01/12/19 [id number]
[2019-01-12 19:00] VITALS: BP 127/70
[2019-01-12] MEDS ORDERED: DEXTROSE 70% IV SCH ×10 (22:00)
[2019-01-12] MEDS ORDERED: TOTAL PARENTERAL NUTRITION IV SCH ×10 (22:00)
[2019-01-12] MEDS ORDERED: AMINO ACID IV SCH ×10 (22:00)
[2019-01-12] MEDS ORDERED: [UNRECOGNIZED DRUG - OTHER] IV SCH ×10 (22:00)
[2019-01-12 23:00] VITALS: BP 134/71
--- NOTE | 2019-01-13 01:09 | PN ---
DATE: 01/12/2019 SUBJECTIVE: The patient in bed, NG tube remains. KUB, I ordered yesterday, shows persistent ileus. The patient is somewhat drowsy but is much better since I tapered some sedative medications. I did discuss with Social Work since the patient has been on TPN and with poor progress and still persistent ileus, minimal ambulation, then we can screen for LTAC. The patient came from [facility]. GS and GI on board along with ID. The patient on IV antibiotics. The patient is purely n.p.o. because of the persistent ileus. OBJECTIVE: GENERAL: Awake, alert, oriented x 3, not in acute distress. HEENT AND NECK: NG tube in place. Tympanitic. ABDOMEN: With minimal tenderness. No rebound or guarding. Hypoactive bowel sounds. RESPIRATORY: Symmetrical chest expansion. Negative retractions, diminished in the bases. CARDIOVASCULAR: Normal rate and rhythm. No murmurs, rubs or gallops. ABDOMEN: As above. GENITALIA: Appropriate for age. EXTREMITIES: Negative edema. Pulses full and equal. No pallor or cyanosis of nailbeds. NEUROLOGICAL AND PSYCHIATRIC: Within normal limits. ASSESSMENT: 1. Persistent ileus. 2. Status post exploratory laparotomy. 3. Indwelling total parenteral nutrition. 4. Sepsis, on IV antibiotics. 5. Generalized weakness, new resident, but we will screen for LTAC. 6. Anemia of chronic disease. 7. Electrolyte abnormalities. PLAN: 1. I have discontinued p.o. meds as clearly cannot give something because of the persistent ileus. 2. Continue TPN. 3. Social Work for LTAC screen - I have discussed with Karen. 4. Continue IV antibiotics per ID. SON LAU MD DR: /nts JOB#: [id number] / [id number]
[2019-01-13 03:00] VITALS: BP 120/72
[2019-01-13] MEDS ORDERED: BISACODYL 10 MG SUPP.RECT. PR PRN (03:15)
[2019-01-13] MEDS: HYDROmorphone 2 MG/ML VIAL IV PRN ×2 (03:21→18:29)
[2019-01-13] MEDS: ONDANSETRON PF 4 MG/2 ML VIAL. IV PRN (03:21)
[2019-01-13] MEDS: CALCIUM CARBONATE 500 MG TAB.CHEW PO PRN (03:22)
--- NOTE | 2019-01-13 03:34 | NUR ---
Paged doctor hutchinson about patients abdominal distention, nausea, and "fullness" Doctor jasper gave orders. will continue to monitor.
[2019-01-13] MEDS: IPRATRPIUM/ALBUTEROL 0.5/2.5MG 3 ML NEBU. NEB SCH ×5 (03:55→20:13)
[2019-01-13] MEDS: INSULIN LISPRO 300 UNITS/3 ML INSULN.PEN. SQ SCH ×7 (05:56→18:00)
[2019-01-13] MEDS: PANTOPRAZOLE IV PUSH 40 MG VIAL. IVP SCH (06:07)
[2019-01-13 06:13] LABS: HEMATOCRIT 23.4 % (36.0-47.0); HEMOGLOBIN 7.4 g/dL (12.0-15.5); RED BLOOD COUNT 3.13 x10^6/uL (3.50-5.40); WHITE BLOOD COUNT 9.2 x10^3/uL (4.0-11.0)
[2019-01-13 06:32] LABS: CALCIUM 8.3 mg/dL (8.5-10.1); CREATININE 0.6 mg/dL (0.6-1.0); GFR 117.9; MAGNESIUM 1.7 mg/dL (1.8-2.4); PHOSPHORUS 3.5 mg/dL (2.6-4.7); POTASSIUM 4.1 mmol/L (3.5-5.1)
[2019-01-13] MEDS: BUDESONIDE 0.5 MG/2 ML NEBU. NEB SCH ×2 (07:10→20:13)
[2019-01-13 07:20] VITALS: BP 138/83
[2019-01-13] MEDS: CHLORHEXIDINE 0.12% 15 ML MOUTHWASH. MM SCH ×2 (08:59→21:08)
--- NOTE | 2019-01-13 08:59 | PDOC ---
PULMONARY PROGRESS NOTES Subjective UP IN CHAIR NOT SOA LIQUIDS DIET Vitals Vital Signs Date Time Temp Pulse Resp B/P (MAP) Pulse Ox O2 Delivery O2 Flow Rate FiO2 01/13/19 07:20 97.7 61 20 138/83 (101) 100 Room Air 3.0 97.7 ROS: No Nausea, No Chest Pain General: Alert, Mild Distress HEENT: Other (nc at perrl nose throat clear neck +JVD no lad, no thyromegaly ) Lungs: Clear Cardiovascular: S1, S2 Abdomen: Soft, Non-tender, Other (distended) Neuro Exam: Alert, Oriented Extremities: No Edema Skin: Warm Labs Laboratory Tests Test 01/11/19 11:19 01/11/19 16:47 01/12/19 00:31 01/12/19 05:10 Glucose (Fingerstick) 101 mg/dL (70-99) 82 mg/dL (70-99) 99 mg/dL (70-99) Erythrocyte Sedimentation Rate 45 (0-25) Sodium Level 142 mmol/L (136-145) Potassium Level 4.1 mmol/L (3.5-5.1) Chloride Level 108 mmol/L (98-107) Carbon Dioxide Level 28 mmol/L (21-32) Anion Gap 6 (6-14) Blood Urea Nitrogen 25 mg/dL (7-20) Creatinine 0.7 mg/dL (0.6-1.0) Estimated GFR (Cockcroft-Gault) 98.7 Glucose Level 114 mg/dL (70-99) Calcium Level 8.1 mg/dL (8.5-10.1) Test 01/12/19 06:17 01/12/19 18:24 01/13/19 00:19 01/13/19 05:33 Glucose (Fingerstick) 110 mg/dL (70-99) 115 mg/dL (70-99) 97 mg/dL (70-99) 123 mg/dL (70-99) Test 01/13/19 06:10 White Blood Count 9.2 x10^3/uL (4.0-11.0) Red Blood Count 3.13 x10^6/uL (3.50-5.40) Hemoglobin 7.4 g/dL (12.0-15.5) Hematocrit 23.4 % (36.0-47.0) Mean Corpuscular Volume 75 fL (79-100) Mean Corpuscular Hemoglobin 24 pg (25-35) Mean Corpuscular Hemoglobin Concent 32 g/dL (31-37) Red Cell Distribution Width 24.0 % (11.5-14.5) Platelet Count 306 x10^3/uL (140-400) Sodium Level 141 mmol/L (136-145) Potassium Level 4.1 mmol/L (3.5-5.1) Chloride Level 105 mmol/L (98-107) Carbon Dioxide Level 30 mmol/L (21-32) Anion Gap 6 (6-14) Blood Urea Nitrogen 18 mg/dL (7-20) Creatinine 0.6 mg/dL (0.6-1.0) Estimated GFR (Cockcroft-Gault) 117.9 Glucose Level 122 mg/dL (70-99) Calcium Level 8.3 mg/dL (8.5-10.1) Phosphorus Level 3.5 mg/dL (2.6-4.7) Magnesium Level 1.7 mg/dL (1.8-2.4) Laboratory Tests Test 01/12/19 18:24 01/13/19 00:19 01/13/19 05:33 01/13/19 06:10 Glucose (Fingerstick) 115 mg/dL (70-99) 97 mg/dL (70-99) 123 mg/dL (70-99) White Blood Count 9.2 x10^3/uL (4.0-11.0) Red Blood Count 3.13 x10^6/uL (3.50-5.40) Hemoglobin 7.4 g/dL (12.0-15.5) Hematocrit 23.4 % (36.0-47.0) Mean Corpuscular Volume 75 fL (79-100) Mean Corpuscular Hemoglobin 24 pg (25-35) Mean Corpuscular Hemoglobin Concent 32 g/dL (31-37) Red Cell Distribution Width 24.0 % (11.5-14.5) Platelet Count 306 x10^3/uL (140-400) Sodium Level 141 mmol/L (136-145) Potassium Level 4.1 mmol/L (3.5-5.1) Chloride Level 105 mmol/L (98-107) Carbon Dioxide Level 30 mmol/L (21-32) Anion Gap 6 (6-14) Blood Urea Nitrogen 18 mg/dL (7-20) Creatinine 0.6 mg/dL (0.6-1.0) Estimated GFR (Cockcroft-Gault) 117.9 Glucose Level 122 mg/dL (70-99) Calcium Level 8.3 mg/dL (8.5-10.1) Phosphorus Level 3.5 mg/dL (2.6-4.7) Magnesium Level 1.7 mg/dL (1.8-2.4) Medications Active Scripts Medications Dose Route/Sig Max Daily Dose Days Date Category Chlorhexidine Gluconate 473 Ml Mouthwash 473 Ml MM BID 7 12/10/18 Rx Vitamin C (Ascorbate Calcium) 500 Mg Tablet 500 Mg PO DAILY 30 11/22/18 Rx Slow Release Iron (Ferrous Sulfate) 250 Mg Tablet.er 250 Mg PO DAILY 30 11/22/18 Rx Protonix (Pantoprazole Sodium) 40 Mg Granpkt.dr 40 Mg PO DAILY 30 11/22/18 Rx Metformin Hcl Er (Metformin Hcl) 500 Mg Tab.er.24h 1 Tab PO DAILY 11/12/16 Reported Namenda (Memantine Hcl) 10 Mg Tablet 1 Tab PO BID 11/12/16 Reported Losartan Potassium 100 Mg Tablet 100 Mg PO DAILY 11/12/16 Reported Spironolactone 25 Mg Tablet 1 Tab PO DAILY 11/12/16 Reported Ventolin Hfa Inhaler (Albuterol Sulfate) 18 Gm Hfa.aer.ad 2 Puff INH Q4HRS 11/11/16 Reported Cymbalta (Duloxetine Hcl) 20 Mg Capsule.dr 90 Mg PO DAILY 01/27/16 Reported Requip (Ropinirole Hcl) 1 Mg Tablet 3 Mg PO DAILY 01/27/16 Reported Amlodipine Besylate 10 Mg Tablet 10 Mg PO DAILY 01/27/16 Reported Comments cxr reviewed, b lat ll effusion/atelectasis/infilt L>R Impression . 1. Acute hypoxic respiratory failure MULTIFACTORIAL EXPECTED POST SURGICAL INTERVENTION 2. Gastrointestinal bleed/cecal ulceration by colonoscopy, status post laparoscopic-assisted right colon resection and hemorrhoidectomy 12/17 3. ileus S/P SECOND SURGERY 12/30 SEE BELOW 4. Underlying suspected severe chronic obstructive pulmonary disease. 5. Abnormal CT chest with focal opacity in the right upper lobe, could be nodule/ATELECTASIS Date: 12/17/2018 Preoperative diagnosis: GI bleed cecal ulceration by colonoscopy with active bleeding hemorrhoids Postoperative diagnosis: Same Procedure: Laparoscopic-assisted right colon resection and hemorrhoidectomy Surgeon: Jan Specimen: Right colon and hemorrhoids Date: 12/30/2018 Preoperative diagnosis: Small bowel obstruction Postoperative diagnosis: Small bowel obstruction at previous anastomotic site Procedure: Exploratory laparotomy with extended right hemicolectomy and primary anastomosis Plan . NEEDS PT OT GETTING STONGER TOLERATED LIQUIDS TODAY MAY NEED LTAC RESP STATUS IS COMPENSATED PRN BIPAP FOLLOW UP CT IN 3 MONTHS, dr valentine discussed w DAUGHTER MARIA ALEJANDRA VALENTINE MD Jan 13, 2019 08:58
[2019-01-13] MEDS: ENOXAPARIN 40 MG/0.4 ML SYRINGE. SQ SCH (09:03)
--- NOTE | 2019-01-13 09:16 | PDOC ---
Subjective: Subjective: Daughter present - says pt is doing better and got up to walk to the restroom yesterday. Wonders about diet. Objective: Objective: Reviewed w/ RN - stable, passing gas and stool, still distended, takes ice chips and sips of water, ?working toward DC to [facility] Vital Signs: Vital Signs Date Time Temp Pulse Resp B/P (MAP) Pulse Ox O2 Delivery O2 Flow Rate FiO2 01/13/19 07:20 97.7 61 20 138/83 (101) 100 Room Air 3.0 97.7 Labs: Laboratory Tests Test 01/12/19 18:24 01/13/19 00:19 01/13/19 05:33 01/13/19 06:10 Glucose (Fingerstick) 115 mg/dL 97 mg/dL 123 mg/dL White Blood Count 9.2 x10^3/uL Red Blood Count 3.13 x10^6/uL Hemoglobin 7.4 g/dL Hematocrit 23.4 % Mean Corpuscular Volume 75 fL Mean Corpuscular Hemoglobin 24 pg Mean Corpuscular Hemoglobin Concent 32 g/dL Red Cell Distribution Width 24.0 % Platelet Count 306 x10^3/uL Sodium Level 141 mmol/L Potassium Level 4.1 mmol/L Chloride Level 105 mmol/L Carbon Dioxide Level 30 mmol/L Anion Gap 6 Blood Urea Nitrogen 18 mg/dL Creatinine 0.6 mg/dL Estimated GFR (Cockcroft-Gault) 117.9 Glucose Level 122 mg/dL Calcium Level 8.3 mg/dL Phosphorus Level 3.5 mg/dL Magnesium Level 1.7 mg/dL PE: GEN: NAD LUNGS: NC, occasional snore HEART: RRR ABD: distended but softer than before, a few gurgles to right NEURO/PSYCH: sleeping, did not awaken during exam A/P: Post-op ileus Anemia COPD -- Continue per surgery, await DC plans. RADHA JUSTICE Jan 13, 2019 09:16
--- NOTE | 2019-01-13 09:22 | PDOC ---
Infectious Disease Note Subjective Subjective pt is feeling better, NG is out ROS ROS no n/v had BM Vital Sign Vital Signs Vital Signs Date Time Temp Pulse Resp B/P (MAP) Pulse Ox O2 Delivery O2 Flow Rate FiO2 01/13/19 07:20 97.7 61 20 138/83 (101) 100 Room Air 3.0 97.7 Physical Exam PHYSICAL EXAM GENERAL: Sitting in the chair, relaxed appearance, alert. HEENT: Oral cavity pink, dry NECK: Supple LUNGS: Diminished aeration bases, nonlabored HEART: S1, S2 ABDOMEN: Distended, NT to light palpation. + BS, dressing. mild serous fluid EXTREMITIES: LLE 1+ edema. no cyanosis SKIN: No rash. NEUROLOGIC: Alert, responding appropriately RUE-PICC (12/23) clean Labs Lab Laboratory Tests Test 01/12/19 18:24 01/13/19 00:19 01/13/19 05:33 01/13/19 06:10 Glucose (Fingerstick) 115 mg/dL (70-99) 97 mg/dL (70-99) 123 mg/dL (70-99) White Blood Count 9.2 x10^3/uL (4.0-11.0) Red Blood Count 3.13 x10^6/uL (3.50-5.40) Hemoglobin 7.4 g/dL (12.0-15.5) Hematocrit 23.4 % (36.0-47.0) Mean Corpuscular Volume 75 fL (79-100) Mean Corpuscular Hemoglobin 24 pg (25-35) Mean Corpuscular Hemoglobin Concent 32 g/dL (31-37) Red Cell Distribution Width 24.0 % (11.5-14.5) Platelet Count 306 x10^3/uL (140-400) Sodium Level 141 mmol/L (136-145) Potassium Level 4.1 mmol/L (3.5-5.1) Chloride Level 105 mmol/L (98-107) Carbon Dioxide Level 30 mmol/L (21-32) Anion Gap 6 (6-14) Blood Urea Nitrogen 18 mg/dL (7-20) Creatinine 0.6 mg/dL (0.6-1.0) Estimated GFR (Cockcroft-Gault) 117.9 Glucose Level 122 mg/dL (70-99) Calcium Level 8.3 mg/dL (8.5-10.1) Phosphorus Level 3.5 mg/dL (2.6-4.7) Magnesium Level 1.7 mg/dL (1.8-2.4) Micro Microbiology 12/19/18 Blood Culture - Preliminary, Resulted NO GROWTH AFTER 1 DAY Objective Assessment Leukocytosis ,, improved S/P rt hemicolectomy COPD Pneumonia treated Ileus Plan Plan of Care Continue to observe off antibiotics maintain aspiration precautions d/w Dr Montoya D/w nursing d/w daughter DENI SALINAS MD Jan 13, 2019 09:22
[2019-01-13] MEDS ORDERED: MAGNESIUM SULFATE 1GM 100 ML IV ONE (09:30)
[2019-01-13 10:35] VITALS: BP 131/77
--- NOTE | 2019-01-13 10:55 | PDOC ---
PROGRESS NOTES Chief Complaint Chief Complaint Cecal ulceration - s/p X LAP - rt colon resection and hemorrhoidectomy 12/30 Anemia, colonic Avms Acute hypoxic respiratory failure, improving post op malnutrition VISHNU COPD Sepsis/Leukopenia - meropenem and vanco, ID following ileus on nGT History of Present Illness History of Present Illness Status post exploratory laparoscopy 12/30 and had a remarkable postop course- ileus on TPN with NGT THis is the first day I am seeing her better NG tube out BM today Also ambulated some with physical therapy within her room Patient does feel weak though Still TPN running Apparently GS we'll start some liquid diet today RT picc Plan: liquid diet per GS today Continue TPN for now Continue daily PT OT I am okay doing peer to peer with [employer] today Low magnesium 1.7-replace IV 1gm I might be able to restart some by mouth meds if she tolerates liquid diet Vitals Vitals Vital Signs Date Time Temp Pulse Resp B/P (MAP) Pulse Ox O2 Delivery O2 Flow Rate FiO2 01/13/19 10:35 97.5 84 22 131/77 (95) 98 Room Air 3.0 97.5 Physical Exam Physical Exam GENERAL: Sitting in the chair, relaxed appearance, alert. HEENT: Oral cavity pink, dry NECK: Supple LUNGS: Diminished aeration bases, nonlabored HEART: S1, S2 ABDOMEN: Distended, NT to light palpation. + BS, dressing. mild serous fluid EXTREMITIES: LLE 1+ edema. no cyanosis SKIN: No rash. NEUROLOGIC: Alert, responding appropriately RUE-PICC (12/23) clean General: Alert, Oriented X3, Cooperative, mild distress Heart: Regular rate, Normal S1, Normal S2, No murmurs Lungs: Clear Abdomen: Normal bowel sounds, Soft, No tenderness, Other (serous drainage from [place]) Extremities: No clubbing, No cyanosis, No edema Skin: No breakdown, No significant lesion Labs LABS Laboratory Tests Test 01/12/19 18:24 01/13/19 00:19 01/13/19 05:33 01/13/19 06:10 Glucose (Fingerstick) 115 mg/dL (70-99) 97 mg/dL (70-99) 123 mg/dL (70-99) White Blood Count 9.2 x10^3/uL (4.0-11.0) Red Blood Count 3.13 x10^6/uL (3.50-5.40) Hemoglobin 7.4 g/dL (12.0-15.5) Hematocrit 23.4 % (36.0-47.0) Mean Corpuscular Volume 75 fL (79-100) Mean Corpuscular Hemoglobin 24 pg (25-35) Mean Corpuscular Hemoglobin Concent 32 g/dL (31-37) Red Cell Distribution Width 24.0 % (11.5-14.5) Platelet Count 306 x10^3/uL (140-400) Sodium Level 141 mmol/L (136-145) Potassium Level 4.1 mmol/L (3.5-5.1) Chloride Level 105 mmol/L (98-107) Carbon Dioxide Level 30 mmol/L (21-32) Anion Gap 6 (6-14) Blood Urea Nitrogen 18 mg/dL (7-20) Creatinine 0.6 mg/dL (0.6-1.0) Estimated GFR (Cockcroft-Gault) 117.9 Glucose Level 122 mg/dL (70-99) Calcium Level 8.3 mg/dL (8.5-10.1) Phosphorus Level 3.5 mg/dL (2.6-4.7) Magnesium Level 1.7 mg/dL (1.8-2.4) Review of Systems Review of Systems weak, the rest of ROS 14 point negative Comment Review of Relevant I have reviewed the following items abdifatah (where applicable) has been applied. Labs Laboratory Tests Test 01/11/19 11:19 01/11/19 16:47 01/12/19 00:31 01/12/19 05:10 Glucose (Fingerstick) 101 mg/dL (70-99) 82 mg/dL (70-99) 99 mg/dL (70-99) Erythrocyte Sedimentation Rate 45 (0-25) Sodium Level 142 mmol/L (136-145) Potassium Level 4.1 mmol/L (3.5-5.1) Chloride Level 108 mmol/L (98-107) Carbon Dioxide Level 28 mmol/L (21-32) Anion Gap 6 (6-14) Blood Urea Nitrogen 25 mg/dL (7-20) Creatinine 0.7 mg/dL (0.6-1.0) Estimated GFR (Cockcroft-Gault) 98.7 Glucose Level 114 mg/dL (70-99) Calcium Level 8.1 mg/dL (8.5-10.1) Test 01/12/19 06:17 01/12/19 18:24 01/13/19 00:19 01/13/19 05:33 Glucose (Fingerstick) 110 mg/dL (70-99) 115 mg/dL (70-99) 97 mg/dL (70-99) 123 mg/dL (70-99) Test 01/13/19 06:10 White Blood Count 9.2 x10^3/uL (4.0-11.0) Red Blood Count 3.13 x10^6/uL (3.50-5.40) Hemoglobin 7.4 g/dL (12.0-15.5) Hematocrit 23.4 % (36.0-47.0) Mean Corpuscular Volume 75 fL (79-100) Mean Corpuscular Hemoglobin 24 pg (25-35) Mean Corpuscular Hemoglobin Concent 32 g/dL (31-37) Red Cell Distribution Width 24.0 % (11.5-14.5) Platelet Count 306 x10^3/uL (140-400) Sodium Level 141 mmol/L (136-145) Potassium Level 4.1 mmol/L (3.5-5.1) Chloride Level 105 mmol/L (98-107) Carbon Dioxide Level 30 mmol/L (21-32) Anion Gap 6 (6-14) Blood Urea Nitrogen 18 mg/dL (7-20) Creatinine 0.6 mg/dL (0.6-1.0) Estimated GFR (Cockcroft-Gault) 117.9 Glucose Level 122 mg/dL (70-99) Calcium Level 8.3 mg/dL (8.5-10.1) Phosphorus Level 3.5 mg/dL (2.6-4.7) Magnesium Level 1.7 mg/dL (1.8-2.4) Laboratory Tests Test 01/12/19 18:24 01/13/19 00:19 01/13/19 05:33 01/13/19 06:10 Glucose (Fingerstick) 115 mg/dL (70-99) 97 mg/dL (70-99) 123 mg/dL (70-99) White Blood Count 9.2 x10^3/uL (4.0-11.0) Red Blood Count 3.13 x10^6/uL (3.50-5.40) Hemoglobin 7.4 g/dL (12.0-15.5) Hematocrit 23.4 % (36.0-47.0) Mean Corpuscular Volume 75 fL (79-100) Mean Corpuscular Hemoglobin 24 pg (25-35) Mean Corpuscular Hemoglobin Concent 32 g/dL (31-37) Red Cell Distribution Width 24.0 % (11.5-14.5) Platelet Count 306 x10^3/uL (140-400) Sodium Level 141 mmol/L (136-145) Potassium Level 4.1 mmol/L (3.5-5.1) Chloride Level 105 mmol/L (98-107) Carbon Dioxide Level 30 mmol/L (21-32) Anion Gap 6 (6-14) Blood Urea Nitrogen 18 mg/dL (7-20) Creatinine 0.6 mg/dL (0.6-1.0) Estimated GFR (Cockcroft-Gault) 117.9 Glucose Level 122 mg/dL (70-99) Calcium Level 8.3 mg/dL (8.5-10.1) Phosphorus Level 3.5 mg/dL (2.6-4.7) Magnesium Level 1.7 mg/dL (1.8-2.4) Microbiology 01/01/19 Blood Culture - Final, Complete NO GROWTH AFTER 5 DAYS 12/25/18 - Final, Complete 12/25/18 - Final, Complete 12/25/18 - Final, Complete 12/25/18 - Final, Complete 12/25/18 Gram Stain Evaluation - Final, Complete 12/25/18 Sputum Culture - Final, Complete 12/25/18 Sputum Result 1 - Final, Complete Medications Current Medications Sodium Chloride 1,000 ml @ 1,000 mls/hr 1X ONCE IV Last administered on at 13:52; Start 12/14/18 at 13:30; Stop 12/14/18 at 14:29; Status DC Amlodipine Besylate (Norvasc) 10 mg DAILY PO Last administered on 01/07/19at 08: 45; Start 12/14/18 at 17:00; Stop 01/12/19 at 08:54; Status DC Chlorhexidine Gluconate (Peridex) 15 ml BID MM Last administered on 01/13/19 08:59; Start 12/14/18 at 21:00 Non-Formulary Medication (Albuterol Sulfate (Ventolin Hfa Inhaler)) 2 puff Q4HRS INH ; Start 12/14/18 at 20:00; Status UNV Ascorbic Acid (Vitamin C) 500 mg DAILY PO Last administered on 12/22/18 10:30; Start 12/14/18 at 17:00; Stop 01/12/19 at 08:54; Status DC Duloxetine HCl (Cymbalta) 90 mg DAILY PO Last administered on 01/07/19 08:48; Start 12/14/18 at 17:00; Stop 01/10/19 at 10:18; Status DC Ferrous Sulfate (Feosol) 325 mg DAILYWBKFT PO Last administered on 12/22/18 10: 30; Start 12/14/18 at 17:00; Stop 01/12/19 at 08:54; Status DC Losartan Potassium (Cozaar) 100 mg DAILY PO Last administered on 12/22/18 10:29 ; Start 12/14/18 at 17:00; Stop 01/12/19 at 08:54; Status DC Memantine (Namenda) 10 mg BID PO Last administered on 01/07/19 08:45; Start at 21:00; Stop 01/10/19 at 10:18; Status DC Pantoprazole Sodium (Protonix) 40 mg DAILYAC PO Last administered on 12/22/18 05:28; Start 12/14/18 at 17:00; Stop 12/24/18 at 09:25; Status DC Ropinirole HCl (Requip) 3 mg QHS PO Last administered on 01/07/19at 20:26; Start 12/14/18 at 21:00; Stop 01/12/19 at 08:54; Status DC Spironolactone (Aldactone) 25 mg DAILY PO Last administered on 01/07/19at 08:45 ; Start 12/14/18 at 17:00; Stop 01/12/19 at 08:54; Status DC Albuterol Sulfate (Ventolin Neb Soln) 2.5 mg Q4HRS NEB Last administered on at 06:52; Start 12/14/18 at 20:00; Stop 01/02/19 at 07:24; Status DC Sodium Chloride 1,000 ml @ 80 mls/hr [id number] IV Last administered on 12/23/18at 15:25; Start 12/14/18 at 17:15; Stop 12/23/18 at 21:59; Status DC Acetaminophen (Tylenol) 650 mg PRN Q6HRS PRN PO Pain Last administered on at 21:27; Start 12/15/18 at 04:45; Stop 12/26/18 at 21:07; Status DC Polyethylene Glycol (miraLAX Powder BULK BOTTLE) 238 gm 1X ONCE PO Last administered on 12/15/18at 12:48; Start 12/15/18 at 12:00; Stop 12/15/18 at 12:01 ; Status DC Ondansetron HCl (Zofran) 4 mg PRN Q6HRS PRN IV NAUSEA/VOMITING; Start 12/16/18 at 07:00; Stop 12/17/18 at 06:59; Status DC Fentanyl Citrate (Fentanyl 2ml Vial) 25 mcg PRN Q5MIN PRN IV MILD PAIN; Start 12/16/18 at 07:00; Stop 12/16/18 at 16:33; Status DC Fentanyl Citrate (Fentanyl 2ml Vial) 50 mcg PRN Q5MIN PRN IV MODERATE TO SEVERE PAIN; Start 12/16/18 at 07:00; Stop 12/16/18 at 16:33; Status DC Morphine Sulfate (Morphine Sulfate) 1 mg PRN Q10MIN PRN IV SEVERE PAIN; Start 12/16/18 at 07:00; Stop 12/17/18 at 06:59; Status DC Ringer's Solution 1,000 ml @ 30 mls/hr Q24H IV Last administered on 12/16/18at 13:00; Start 12/16/18 at 07:00; Stop 12/16/18 at 18:59; Status DC Lidocaine HCl (Xylocaine-Mpf 1% 2ml Vial) 2 ml PRN 1X PRN ID IV START; Start at 07:00; Stop 12/17/18 at 06:59; Status DC Hydromorphone HCl (Dilaudid) 0.5 mg PRN Q10MIN PRN IV SEV PAIN, Second choice; Start 12/16/18 at 07:00; Stop 12/17/18 at 06:59; Status DC Prochlorperazine Edisylate (Compazine) 5 mg PACU PRN PRN IV NAUSEA, MRX1; Start 12/16/18 at 07:00; Stop 12/17/18 at 06:59; Status DC Midazolam HCl (Versed) 2 mg PRN 1X PRN IV PRIOR TO PROCEDURE; Start 12/16/18 at 07:15; Stop 12/17/18 at 07:14; Status DC Fentanyl Citrate (Fentanyl 2ml Vial) 25 mcg PRN Q5MIN PRN IV X 2 DOSES FOR PAIN ; Start 12/16/18 at 07:15; Stop 12/16/18 at 16:33; Status DC Fentanyl Citrate (Fentanyl 2ml Vial) 50 mcg PRN Q5MIN PRN IV X 2 DOSES FOR PAIN ; Start 12/16/18 at 07:15; Stop 12/16/18 at 16:34; Status DC Ringer's Solution 1,000 ml @ 125 mls/hr Q8H IV ; Start 12/16/18 at 07:13; Stop 12/16/18 at 19:12; Status DC Lidocaine HCl (Xylocaine-Mpf 1% 2ml Vial) 2 ml 1X PRN PRN ID IV START; Start at 07:15; Stop 12/17/18 at 07:14; Status DC Propofol 40 ml @ As Directed STK-MED ONCE IV ; Start 12/16/18 at 13:58; Stop at 14:00; Status DC Prochlorperazine Edisylate (Compazine) 5 mg PACU PRN PRN IV NAUSEA, MRX1; Start 12/17/18 at 07:00; Stop 12/18/18 at 06:59; Status DC Hydromorphone HCl (Dilaudid) 0.5 mg PRN Q10MIN PRN IV SEV PAIN, Second choice; Start 12/17/18 at 07:00; Stop 12/18/18 at 06:59; Status DC Lidocaine HCl (Xylocaine-Mpf 1% 2ml Vial) 2 ml PRN 1X PRN ID IV START; Start at 07:00; Stop 12/18/18 at 06:59; Status DC Ringer's Solution 1,000 ml @ 30 mls/hr Q24H IV Last administered on 12/17/18at 10:34; Start 12/17/18 at 07:00; Stop 12/17/18 at 18:59; Status DC Morphine Sulfate (Morphine Sulfate) 1 mg PRN Q10MIN PRN IV SEVERE PAIN; Start 12/17/18 at 07:00; Stop 12/18/18 at 06:59; Status DC Fentanyl Citrate (Fentanyl 2ml Vial) 50 mcg PRN Q5MIN PRN IV MODERATE TO SEVERE PAIN Last administered on 12/17/18at 11:13; Start 12/17/18 at 07:00; Stop at 06:59; Status DC Fentanyl Citrate (Fentanyl 2ml Vial) 25 mcg PRN Q5MIN PRN IV MILD PAIN; Start 12/17/18 at 07:00; Stop 12/18/18 at 06:59; Status DC Ondansetron HCl (Zofran) 4 mg PRN Q6HRS PRN IV NAUSEA/VOMITING; Start 12/17/18 at 07:00; Stop 12/18/18 at 06:59; Status DC Propofol 20 ml @ As Directed STK-MED ONCE IV ; Start 12/17/18 at 07:21; Stop 12/17 at 07:23; Status DC Albuterol Sulfate (Ventolin Neb Soln) 2.5 mg 1X ONCE NEB ; Start 12/17/18 at 07: 30; Stop 12/17/18 at 07:31; Status DC Lidocaine HCl (Lidocaine Pf 2% Vial) 5 ml STK-MED ONCE .ROUTE ; Start 12/17/18 at 07:21; Stop 12/17/18 at 07:23; Status DC Succinylcholine Chloride (Anectine) 200 mg STK-MED ONCE .ROUTE ; Start 12/17/18 at 07:21; Stop 12/17/18 at 07:23; Status DC Rocuronium [place] (Zemuron) 50 mg STK-MED ONCE .ROUTE ; Start 12/17/18 at 07:21 ; Stop 12/17/18 at 07:23; Status DC Fentanyl Citrate (Fentanyl 2ml Vial) 100 mcg STK-MED ONCE .ROUTE ; Start at 07:21; Stop 12/17/18 at 07:24; Status DC Cefazolin Sodium/ Dextrose 50 ml @ 100 mls/hr 1X ONCE IV Last administered on 12/17/18at 08:07; Start 12/17/18 at 07:45; Stop 12/17/18 at 08:18; Status DC Bupivacaine HCl/ Epinephrine Bitart (Sensorcain-Mpf Epi 0.5%-1:432123) 30 ml STK -MED ONCE .ROUTE Last administered on 12/17/18at 08:34; Start 12/17/18 at 07:46; Stop 12/17/18 at 07:49; Status DC Neomycin/ Polymyxin/ Bacitracin (Triple Antibiotic Ointment) 1 pkt STK-MED ONCE TP Last administered on 12/17/18at 10:07; Start 12/17/18 at 07:46; Stop 12/17/18 at 07:49; Status DC Neomycin/ Polymyxin/ Bacitracin (Triple Antibiotic Ointment) 1 pkt STK-MED ONCE TP Last administered on 12/17/18at 10:07; Start 12/17/18 at 07:46; Stop 12/17/18 at 07:49; Status DC Neomycin/ Polymyxin/ Bacitracin (Triple Antibiotic Ointment) 1 pkt STK-MED ONCE TP ; Start 12/17/18 at 07:47; Stop 12/17/18 at 07:49; Status DC Dexamethasone Sodium Phosphate (Decadron) 20 mg STK-MED ONCE .ROUTE ; Start 12/17 at 07:54; Stop 12/17/18 at 07:56; Status DC Hydrocortisone Sodium Succinate (Solu-CORTEF) 100 mg STK-MED ONCE .ROUTE ; Start 12/17/18 at 07:54; Stop 12/17/18 at 07:56; Status DC Desflurane (Suprane) 90 ml STK-MED ONCE IH ; Start 12/17/18 at 07:54; Stop at 07:56; Status DC Neostigmine Methylsulfate (Bloxiverz) 10 mg STK-MED ONCE .ROUTE ; Start 12/17/18 at 08:21; Stop 12/17/18 at 08:24; Status DC Glycopyrrolate (Robinul) 1 mg STK-MED ONCE .ROUTE ; Start 12/17/18 at 08:21; Stop 12/17/18 at 08:24; Status DC Phenylephrine HCl (Bogdan-Synephrine Inj) 10 mg STK-MED ONCE .ROUTE ; Start at 08:23; Stop 12/17/18 at 08:26; Status DC Desflurane (Suprane) 60 ml STK-MED ONCE IH ; Start 12/17/18 at 09:23; Stop at 09:26; Status DC Bupivacaine HCl/ Epinephrine Bitart (Sensorcain-Mpf Epi 0.5%-1:264119) 30 ml STK -MED ONCE .ROUTE Last administered on 12/17/18at 10:06; Start 12/17/18 at 09:41; Stop 12/17/18 at 09:43; Status DC Morphine Sulfate (Morphine Sulfate) 2 mg PRN Q2HR PRN IV PAIN Last administered on 12/25/18 09:26; Start 12/17/18 at 10:15; Stop 12/25/18 at 17:54; Status DC Ketorolac Tromethamine (Toradol 15mg Vial) 15 mg Q6HRS IV Last administered on 12/18/18 05:39; Start 12/17/18 at 12:00; Stop 12/18/18 at 10:00; Status DC Artificial Tears (Artificial Tears) 1 drop PRN Q15MIN PRN OU DRY EYE Last administered on 12/20/18 21:28; Start 12/18/18 at 08:00 Docusate Sodium (Colace) 100 mg DAILY PO Last administered on 01/07/19at 08:45; Start 12/18/18 at 10:00; Stop 01/12/19 at 08:54; Status DC Throat Lozenges (Cepacol Sore Throat Lozenge) 1 kristyn PRN Q2HRS PRN PO SORE THROAT Last administered on 01/09/19 16:05; Start 12/18/18 at 14:00 Enoxaparin Sodium (Lovenox 40mg Syringe) 40 mg Q24H SQ Last administered on 09:03; Start 12/19/18 at 09:00 Ondansetron HCl (Zofran) 4 mg PRN Q6HRS PRN IV NAUSEA/VOMITING Last administered on 01/13/19 03:21; Start 12/19/18 at 11:30 Insulin Human Lispro (HumaLOG) 0-5 UNITS TIDWMEALS SQ Last administered on 12/30 18:23; Start 12/19/18 at 17:00; Stop 12/31/18 at 00:05; Status DC Dextrose (Dextrose 50%-Water Syringe) 12.5 gm PRN Q15MIN PRN IV SEE COMMENTS; Start 12/19/18 at 16:45 Levofloxacin/ Dextrose 100 ml @ 100 mls/hr 1X ONCE IV Last administered on 12/19/18at 20:56; Start 12/19/18 at 21:00; Stop 12/19/18 at 21:59; Status DC Cefepime HCl (Maxipime) 2 gm Q12HR IVP Last administered on 12/29/18at 10:02; Start 12/21/18 at 10:00; Stop 12/29/18 at 10:37; Status DC Sodium Chloride 1,000 ml @ 125 mls/hr 1X ONCE IV Last administered on at 10:43; Start 12/21/18 at 09:45; Stop 12/21/18 at 17:44; Status DC Calcium Carbonate/ Glycine (Tums) 500 mg PRN AFTMEALHC PRN PO INDIGESTION Last administered on 01/13/19 03:22; Start 12/21/18 at 12:15; Stop 01/13/19 at 08:50 ; Status DC Lorazepam (Ativan) 1 mg 1X ONCE IV Last administered on 12/21/18at 17:50; Start 12/21/18 at 17:30; Stop 12/21/18 at 17:31; Status DC Albuterol Sulfate (Ventolin Neb Soln) 2.5 mg PRN Q2HRS PRN NEB SHORTNESS OF BREATH Last administered on 01/07/19at 12:45; Start 12/21/18 at 17:30 Nicotine (Nicoderm Cq 14mg) 1 patch PRN DAILY PRN TD SMOKING CESSATION Last administered on 12/26/18 09:59; Start 12/21/18 at 19:30 Lorazepam (Ativan) 1 mg 1X ONCE IV Last administered on 12/21/18at 23:45; Start 12/21/18 at 23:45; Stop 12/21/18 at 23:46; Status DC Lorazepam (Ativan) 1 mg PRN Q4HRS PRN IV ANXIETY / AGITATION Last administered on 12/22/18at 11:15; Start 12/21/18 at 23:30; Stop 12/22/18 at 14:42; Status DC Sodium Chloride 1,000 ml @ 250 mls/hr 1X ONCE IV Last administered on at 09:15; Start 12/22/18 at 09:15; Stop 12/22/18 at 13:14; Status DC Lidocaine/Sodium Bicarbonate (Buffered Lidocaine 1%) 3 ml STK-MED ONCE .ROUTE ; Start 12/23/18 at 10:33; Stop 12/23/18 at 10:35; Status DC Lidocaine/Sodium Bicarbonate (Buffered Lidocaine 1%) 3 ml 1X ONCE INJ Last administered on 12/23/18at 11:24; Start 12/23/18 at 11:00; Stop 12/23/18 at 11:10; Status DC Info (Tpn Per Pharmacy) 1 each PRN DAILY PRN MC SEE COMMENTS Last administered on 01/12/19at 15:26; Start 12/23/18 at 14:00 Sodium Chloride 90 meq/Potassium Chloride 50 meq/ Potassium Phosphate 20.4 mmol/ Magnesium Sulfate 18 meq/ Calcium Gluconate 5 meq/ Multivitamins 10 ml/Chromium / Copper/Manganese/ Seleni/Zn 1 ml/ Total Parenteral Nutrition/Amino Acids/ Dextrose/ Fat Emulsion Intravenous 1,512 ml @ 63 mls/hr TPN CONT IV Last administered on 12/23/18 21:37; Start 12/23/18 at 22:00; Stop 12/24/18 at 21:59; Status DC Alprazolam (Xanax) 0.25 mg PRN BID PRN PO ANXIETY / AGITATION Last administered on 12/25/18at 09:25; Start 12/23/18 at 23:00; Stop 12/25/18 at 17:54; Status DC Lorazepam (Ativan) 1 mg PRN Q4HRS PRN IV ANXIETY / AGITATION Last administered on 12/24/18at 09:21; Start 12/24/18 at 08:45; Stop 12/24/18 at 10:19; Status DC Pantoprazole Sodium (PROTONIX VIAL for IV PUSH) 40 mg DAILYAC IVP Last administered on 01/13/19at 06:07; Start 12/24/18 at 09:30 Lorazepam (Ativan) 0.5 mg PRN Q4HRS PRN IV ANXIETY / AGITATION Last administered on 12/25/18at 04:47; Start 12/24/18 at 10:30; Stop 12/25/18 at 10:22; Status DC Sodium Chloride 45 meq/Sodium Acetate 45 meq/ Potassium Chloride 50 meq/ Potassium Phosphate 20.4 mmol/Magnesium Sulfate 18 meq/ Calcium Gluconate 5 meq / Multivitamins 10 ml/Chromium/ Copper/Manganese/ Seleni/Zn 1 ml/ Total Parenteral Nutrition/Amino Acids/Dextrose/ Fat Emuls... 1,512 ml @ 63 mls/hr TPN CONT IV Last administered on 12/24/18at 21:57; Start 12/24/18 at 22:00; Stop 12/25/18 at 21:59; Status DC Phenyleph/Shark Oil/Min Oil/Petrol (Preparation H) 1 ranjith PRN Q4HRS PRN RC RECTAL PAIN; Start 12/24/18 at 12:45; Stop 12/25/18 at 20:20; Status DC Sodium Chloride 45 meq/Sodium Acetate 45 meq/ Potassium Chloride 50 meq/ Potassium Phosphate 20.4 mmol/Magnesium Sulfate 18 meq/ Calcium Gluconate 5 meq / Multivitamins 10 ml/Chromium/ Copper/Manganese/ Seleni/Zn 1 ml/ Total Parenteral Nutrition/Amino Acids/Dextrose/ Fat Emuls... 1,512 ml @ 63 mls/hr TPN CONT IV Last administered on 12/26/18at 00:34; Start 12/25/18 at 22:00; Stop 12/26/18 at 21:59; Status DC Neomycin/ Polymyxin/ Bacitracin (Triple Antibiotic Ointment) 1 pkt PRN TID PRN TP skin around rectum, post op Last administered on 01/05/19at 08:07; Start at 14:30 Alprazolam (Xanax) 0.25 mg PRN Q8HRS PRN PO ANXIETY / AGITATION Last administered on 01/07/19at 13:01; Start 12/25/18 at 18:00; Stop 01/12/19 at 08:54 ; Status DC Morphine Sulfate (Morphine Sulfate) 2 mg PRN Q6HRS PRN IV PAIN Last administered on 12/29/18at 21:47; Start 12/25/18 at 18:00; Stop 12/30/18 at 03:17 ; Status DC Guaifenesin (Mucinex) 600 mg BID PO Last administered on 12/26/18at 21:26; Start 12/26/18 at 11:00; Stop 01/12/19 at 08:54; Status DC Guaifenesin (Mucinex) 600 mg BID PO ; Start 12/26/18 at 11:00; Status UNV Guaifenesin/ Codeine Phosphate (Robitussin Ac) 5 ml PRN Q6HRS PRN PO COUGH Last administered on 12/26/18at 10:41; Start 12/26/18 at 10:30; Stop 01/13/19 at 08:50; Status DC Sodium Acetate 90 meq/Potassium Chloride 50 meq/ Potassium Phosphate 13.6 mmol/ Magnesium Sulfate 18 meq/ Calcium Gluconate 5 meq/ Multivitamins 10 ml/Chromium / Copper/Manganese/ Seleni/Zn 1 ml/ Total Parenteral Nutrition/Amino Acids/ Dextrose/ Fat Emulsion Intravenous 1,512 ml @ 63 mls/hr TPN CONT IV Last administered on 12/26/18at 21:37; Start 12/26/18 at 22:00; Stop 12/28/18 at 01:28 ; Status DC Benzocaine (Hurricaine One) 1 spray 1X ONCE MM ; Start 12/26/18 at 19:15; Stop 12/26/18 at 19:16; Status DC Acetaminophen (Tylenol) 650 mg PRN Q6HRS PRN PO MILD PAIN / TEMP Last administered on 12/27/18at 04:39; Start 12/26/18 at 21:00 Benzocaine (Hurricaine One) 1 spray 1X ONCE MM Last administered on 12/27/18at 09:00; Start 12/27/18 at 09:15; Stop 12/27/18 at 09:16; Status DC Sodium Acetate 90 meq/Potassium Chloride 50 meq/ Potassium Phosphate 13.6 mmol/ Magnesium Sulfate 15 meq/ Calcium Gluconate 5 meq/ Multivitamins 10 ml/Chromium / Copper/Manganese/ Seleni/Zn 1 ml/ Total Parenteral Nutrition/Amino Acids/ Dextrose/ Fat Emulsion Intravenous 1,512 ml @ 63 mls/hr TPN CONT IV ; Start at 22:00; Stop 12/28/18 at 21:59; Status Cancel Sodium Acetate 90 meq/Potassium Chloride 50 meq/ Potassium Phosphate 13.6 mmol/ Magnesium Sulfate 15 meq/ Calcium Gluconate 5 meq/ Multivitamins 10 ml/Chromium / Copper/Manganese/ Seleni/Zn 1 ml/ Total Parenteral Nutrition/Amino Acids/ Dextrose/ Fat Emulsion Intravenous 1,512 ml @ 63 mls/hr TPN CONT IV ; Start at 22:00; Stop 12/28/18 at 21:59; Status DC Lidocaine/Sodium Bicarbonate (Buffered Lidocaine 1%) 3 ml 1X ONCE INJ ; Start 12/28/18 at 09:00; Stop 12/28/18 at 09:01; Status Cancel Benzocaine (Hurricaine One) 1 spray 1X ONCE MM Last administered on 12/28/18at 09:32; Start 12/28/18 at 09:30; Stop 12/28/18 at 09:33; Status DC Sodium Acetate 90 meq/Potassium Chloride 50 meq/ Potassium Phosphate 13.6 mmol/ Magnesium Sulfate 15 meq/ Calcium Gluconate 5 meq/ Multivitamins 10 ml/Chromium / Copper/Manganese/ Seleni/Zn 1 ml/ Total Parenteral Nutrition/Amino Acids/ Dextrose/ Fat Emulsion Intravenous 1,512 ml @ 63 mls/hr TPN CONT IV Last administered on 12/28/18at 22:06; Start 12/28/18 at 22:00; Stop 12/29/18 at 21:59 ; Status DC Iohexol (Omnipaque 300 Mg/ml) 400 ml 1X ONCE PO Last administered on at 08:15; Start 12/29/18 at 06:45; Stop 12/29/18 at 06:46; Status DC Info (CONTRAST GIVEN -- Rx MONITORING) 1 each PRN DAILY PRN MC SEE COMMENTS; Start 12/29/18 at 06:45; Stop 12/31/18 at 06:44; Status DC Iohexol (Omnipaque 300 Mg/ml) 400 ml 1X ONCE PO ; Start 12/29/18 at 07:00; Stop 12/29/18 at 07:03; Status DC Info (CONTRAST GIVEN -- Rx MONITORING) 1 each PRN DAILY PRN MC SEE COMMENTS; Start 12/29/18 at 07:15; Stop 12/31/18 at 07:14; Status DC Meropenem 500 mg/ Sodium Chloride 50 ml @ 100 mls/hr Q6HRS IV Last administered on 01/07/19at 06:05; Start 12/29/18 at 12:00; Stop 01/07/19 at 08:34 ; Status DC Multi-Ingredient Ointment (Analgesic [place]) 1 ranjith PRN QID PRN TP MUSCLE PAIN Last administered on 12/29/18at 14:40; Start 12/29/18 at 13:00 Sodium Acetate 90 meq/Potassium Chloride 50 meq/ Potassium Phosphate 13.6 mmol/ Magnesium Sulfate 15 meq/ Calcium Gluconate 5 meq/ Multivitamins 10 ml/Chromium / Copper/Manganese/ Seleni/Zn 1 ml/ Total Parenteral Nutrition/Amino Acids/ Dextrose/ Fat Emulsion Intravenous 1,512 ml @ 63 mls/hr TPN CONT IV Last administered on 12/29/18at 21:40; Start 12/29/18 at 22:00; Stop 12/30/18 at 21:59 ; Status DC Morphine Sulfate (Morphine Sulfate) 2 mg PRN Q4HRS PRN IV SEVERE PAIN Last administered on 12/30/18at 19:50; Start 12/30/18 at 03:30; Stop 12/30/18 at 21:33 ; Status DC Propofol 20 ml @ As Directed STK-MED ONCE IV ; Start 12/30/18 at 12:51; Stop at 12:52; Status DC Dexamethasone Sodium Phosphate (Decadron) 20 mg STK-MED ONCE .ROUTE ; Start at 12:51; Stop 12/30/18 at 12:52; Status DC Lidocaine HCl (Lidocaine Pf 2% Vial) 5 ml STK-MED ONCE .ROUTE ; Start 12/30/18 at 12:51; Stop 12/30/18 at 12:52; Status DC Ondansetron HCl (Zofran) 4 mg STK-MED ONCE .ROUTE ; Start 12/30/18 at 12:51; Stop 12/30/18 at 12:52; Status DC Rocuronium [place] (Zemuron) 50 mg STK-MED ONCE .ROUTE ; Start 12/30/18 at 12:51 ; Stop 12/30/18 at 12:52; Status DC Succinylcholine Chloride (Anectine) 200 mg STK-MED ONCE .ROUTE ; Start 12/30/18 at 12:51; Stop 12/30/18 at 12:52; Status DC Fentanyl Citrate (Fentanyl 5ml Vial) 250 mcg STK-MED ONCE .ROUTE ; Start at 13:49; Stop 12/30/18 at 13:50; Status DC Sodium Chloride 90 meq/Potassium Chloride 50 meq/ Potassium Phosphate 13.6 mmol/ Magnesium Sulfate 15 meq/ Multivitamins 10 ml/Chromium/ Copper/Manganese/ Seleni /Zn 1 ml/ Total Parenteral Nutrition/Amino Acids/Dextrose/ Fat Emulsion Intravenous 1,512 ml @ 63 mls/hr TPN CONT IV Last administered on 12/30/18at 23:43; Start 12/30/18 at 22:00; Stop 12/31/18 at 21:59; Status DC Vasopressin (Vasostrict) 20 unit STK-MED ONCE .ROUTE ; Start 12/30/18 at 15:00; Stop 12/30/18 at 15:01; Status DC Sodium Chloride (SODIUM CHLORIDE 20ml) 20 ml STK-MED ONCE IJ ; Start 12/30/18 at 15:01; Stop 12/30/18 at 15:02; Status DC Albumin Human 500 ml @ As Directed STK-MED ONCE IV ; Start 12/30/18 at 15:01; Stop 12/30/18 at 15:02; Status DC Glycopyrrolate (Robinul) 1 mg STK-MED ONCE .ROUTE ; Start 12/30/18 at 15:21; Stop 12/30/18 at 15:22; Status DC Neostigmine Methylsulfate (Bloxiverz) 10 mg STK-MED ONCE .ROUTE ; Start at 15:21; Stop 12/30/18 at 15:22; Status DC Albuterol/ Ipratropium (Duoneb) 3 ml STK-MED ONCE .ROUTE ; Start 12/30/18 at 15: 45; Stop 12/30/18 at 15:46; Status DC Fentanyl Citrate (Fentanyl 2ml Vial) 100 mcg STK-MED ONCE .ROUTE ; Start at 16:56; Stop 12/30/18 at 16:57; Status DC Ondansetron HCl (Zofran) 4 mg PRN Q6HRS PRN IV NAUSEA/VOMITING; Start 12/30/18 at 17:15; Stop 12/30/18 at 21:35; Status DC Fentanyl Citrate (Fentanyl 2ml Vial) 25 mcg PRN Q5MIN PRN IV MILD PAIN Last administered on 12/30/18at 17:15; Start 12/30/18 at 17:15; Stop 12/30/18 at 21:35 ; Status DC Fentanyl Citrate (Fentanyl 2ml Vial) 50 mcg PRN Q5MIN PRN IV MODERATE TO SEVERE PAIN Last administered on 12/30/18at 17:57; Start 12/30/18 at 17:15; Stop 12/30/18 at 21:35; Status DC Morphine Sulfate (Morphine Sulfate) 1 mg PRN Q10MIN PRN IV SEVERE PAIN; Start 12/30/18 at 17:15; Stop 12/31/18 at 17:14; Status DC Ringer's Solution 1,000 ml @ 30 mls/hr Q24H IV Last administered on 12/30/18at 18:09; Start 12/30/18 at 17:10; Stop 12/30/18 at 21:33; Status DC Lidocaine HCl (Xylocaine-Mpf 1% 2ml Vial) 2 ml 1X PRN PRN ID IV START; Start at 17:15; Stop 12/30/18 at 21:35; Status DC Hydromorphone HCl (Dilaudid) 0.5 mg PRN Q10MIN PRN IV SEV PAIN, Second choice; Start 12/30/18 at 17:15; Stop 12/30/18 at 21:35; Status DC Prochlorperazine Edisylate (Compazine) 5 mg PACU PRN PRN IV NAUSEA, MRX1; Start 12/30/18 at 17:15; Stop 12/30/18 at 21:35; Status DC Albumin Human 100 ml @ 100 mls/hr 1X ONCE IV Last administered on 12/30/18at 22:00; Start 12/30/18 at 22:00; Stop 12/30/18 at 22:59; Status DC Ringer's Solution 500 ml @ 500 mls/hr 1X ONCE IV Last administered on at 22:00; Start 12/30/18 at 22:00; Stop 12/30/18 at 22:59; Status DC Ringer's Solution 1,000 ml @ 100 mls/hr Q10H IV Last administered on at 00:58; Start 12/30/18 at 23:00; Stop 01/01/19 at 09:30; Status DC Hydromorphone HCl (Dilaudid) 0.5 mg PRN Q2HR PRN IV MODERATE PAIN Last administered on 01/04/19at 10:08; Start 12/30/18 at 21:30; Stop 01/04/19 at 15:05 ; Status DC Hydromorphone HCl (Dilaudid) 1 mg PRN Q2HR PRN IV SEVERE PAIN Last administered on 01/04/19at 04:51; Start 12/30/18 at 21:30; Stop 01/04/19 at 15:05 ; Status DC Insulin Human Lispro (HumaLOG) 0-5 UNITS Q6HRS SQ Last administered on 06:42; Start 12/31/18 at 00:30; Stop 01/06/19 at 12:47; Status DC Sodium Chloride 90 meq/Potassium Chloride 30 meq/ Potassium Phosphate 13.6 mmol/ Magnesium Sulfate 15 meq/ Calcium Gluconate 5 meq/ Multivitamins 10 ml/Chromium / Copper/Manganese/ Seleni/Zn 1 ml/ Total Parenteral Nutrition/Amino Acids/ Dextrose/ Fat Emulsion Intravenous 1,512 ml @ 63 mls/hr TPN CONT IV Last administered on 12/31/18at 21:58; Start 12/31/18 at 22:00; Stop 01/01/19 at 21:59 ; Status DC Sodium Chloride 90 meq/Potassium Chloride 30 meq/ Potassium Phosphate 13.6 mmol/ Magnesium Sulfate 15 meq/ Calcium Gluconate 5 meq/ Multivitamins 10 ml/Chromium / Copper/Manganese/ Seleni/Zn 1 ml/ Total Parenteral Nutrition/Amino Acids/ Dextrose/ Fat Emulsion Intravenous 1,512 ml @ 63 mls/hr TPN CONT IV Last administered on 01/01/19at 21:09; Start 01/01/19 at 22:00; Stop 01/02/19 at 21:59 ; Status DC Vancomycin HCl (Vanco Per Pharmacy) 1 each PRN DAILY PRN MC SEE COMMENTS Last administered on 01/03/19at 10:18; Start 01/01/19 at 11:15; Stop 01/03/19 at 11:23 ; Status DC Vancomycin HCl 2 gm/Sodium Chloride 500 ml @ 250 mls/hr ONCE ONCE IV Last administered on 01/01/19at 12:28; Start 01/01/19 at 12:00; Stop 01/01/19 at 13:59 ; Status DC Vancomycin HCl 1.25 gm/Sodium Chloride 250 ml @ 166.667 mls/hr Q24H IV ; Start 01/01/19 at 12:00; Status Cancel Vancomycin HCl (Vancomycin Trough Level) 1 each 1X ONCE MC ; Start 01/03/19 at 11:30; Stop 01/03/19 at 11:31; Status Cancel Vancomycin HCl 1.25 gm/Sodium Chloride 250 ml @ 166.667 mls/hr Q24H IV Last administered on 01/02/19at 13:04; Start 01/02/19 at 12:00; Stop 01/03/19 at 11:23 ; Status DC Albuterol/ Ipratropium (Duoneb) 3 ml 1X ONCE NEB Last administered on at 08:19; Start 01/02/19 at 07:30; Stop 01/02/19 at 07:31; Status DC Albuterol/ Ipratropium (Duoneb) 3 ml Q4HRS NEB Last administered on 01/13/19at 07:09; Start 01/02/19 at 12:00 Furosemide (Lasix) 20 mg 1X ONCE IVP Last administered on 01/02/19at 07:36; Start 01/02/19 at 07:30; Stop 01/02/19 at 07:31; Status DC Sodium Chloride 90 meq/Potassium Chloride 30 meq/ Potassium Phosphate 13.6 mmol/ Magnesium Sulfate 15 meq/ Calcium Gluconate 5 meq/ Multivitamins 10 ml/Chromium / Copper/Manganese/ Seleni/Zn 1 ml/ Total Parenteral Nutrition/Amino Acids/ Dextrose/ Fat Emulsion Intravenous 1,512 ml @ 63 mls/hr TPN CONT IV Last administered on 01/02/19at 21:20; Start 01/02/19 at 22:00; Stop 01/03/19 at 21:59 ; Status DC Sodium Chloride 90 meq/Potassium Chloride 30 meq/ Potassium Phosphate 13.6 mmol/ Magnesium Sulfate 15 meq/ Multivitamins 10 ml/Chromium/ Copper/Manganese/ Seleni /Zn 1 ml/ Insulin Human Regular 10 unit/ Total Parenteral Nutrition/Amino Acids/ Dextrose/ Fat Emulsion Intravenous 1,512 ml @ 63 mls/hr TPN CONT IV Last administered on 01/03/19at 22:07; Start 01/03/19 at 22:00; Stop 01/04/19 at 21:59 ; Status DC Sodium Chloride 90 meq/Potassium Chloride 30 meq/ Potassium Phosphate 13.6 mmol/ Magnesium Sulfate 15 meq/ Multivitamins 10 ml/Chromium/ Copper/Manganese/ Seleni /Zn 1 ml/ Insulin Human Regular 10 unit/ Total Parenteral Nutrition/Amino Acids/ Dextrose/ Fat Emulsion Intravenous 1,512 ml @ 63 mls/hr TPN CONT IV Last administered on 01/04/19at 22:11; Start 01/04/19 at 22:00; Stop 01/05/19 at 21:59 ; Status DC Hydromorphone HCl (Dilaudid) 0.5 mg PRN Q6HRS PRN IV MODERATE PAIN Last administered on 01/13/19at 03:21; Start 01/04/19 at 15:15 Hydromorphone HCl (Dilaudid) 1 mg PRN Q6HRS PRN IV SEVERE PAIN Last administered on 01/05/19at 02:18; Start 01/04/19 at 15:15; Stop 01/12/19 at 08:54 ; Status DC Dextrose (Dextrose 50%-Water Syringe) 25 gm STK-MED ONCE IV ; Start 01/04/19 at 08:50; Stop 01/05/19 at 08:26; Status DC Sodium Chloride 90 meq/Potassium Chloride 30 meq/ Potassium Phosphate 13.6 mmol/ Magnesium Sulfate 15 meq/ Multivitamins 10 ml/Chromium/ Copper/Manganese/ Seleni /Zn 1 ml/ Insulin Human Regular 10 unit/ Total Parenteral Nutrition/Amino Acids/ Dextrose/ Fat Emulsion Intravenous 1,512 ml @ 63 mls/hr TPN CONT IV Last administered on 01/05/19at 21:52; Start 01/05/19 at 22:00; Stop 01/06/19 at 21:59 ; Status DC Budesonide (Pulmicort) 0.5 mg RTBID NEB Last administered on 01/13/19at 07:10; Start 01/05/19 at 12:00 Insulin Glargine (Lantus) 12 units DAILY10 SQ Last administered on 01/09/19 09 :36; Start 01/06/19 at 13:30; Stop 01/09/19 at 12:16; Status DC Sodium Chloride 40 meq/Potassium Chloride 30 meq/ Potassium Phosphate 13.6 mmol/ Magnesium Sulfate 15 meq/ Multivitamins 10 ml/Chromium/ Copper/Manganese/ Seleni /Zn 1 ml/ Insulin Human Regular 10 unit/ Total Parenteral Nutrition/Amino Acids/ Dextrose/ Fat Emulsion Intravenous 1,512 ml @ 63 mls/hr TPN CONT IV Last administered on 01/07/19at 00:36; Start 01/06/19 at 22:00; Stop 01/07/19 at 21:59 ; Status DC Insulin Human Lispro (HumaLOG) 12 units 1X ONCE SQ Last administered on at 14:18; Start 01/06/19 at 13:00; Stop 01/06/19 at 13:01; Status DC Insulin Human Lispro (HumaLOG) 0-9 UNITS Q6HRS SQ Last administered on at 12:16; Start 01/06/19 at 18:00 Insulin Human Lispro (HumaLOG) 3 units 1X ONCE SQ Last administered on at 00:33; Start 01/07/19 at 00:30; Stop 01/07/19 at 00:31; Status DC Insulin Human Lispro (HumaLOG) 20 units 1X ONCE SQ Last administered on at 12:22; Start 01/07/19 at 12:15; Stop 01/07/19 at 12:16; Status DC Insulin Human Lispro (HumaLOG) 10 units TIDAC SQ Last administered on at 09:19; Start 01/07/19 at 16:30 Sodium Chloride 40 meq/Potassium Chloride 30 meq/ Potassium Phosphate 13.6 mmol/ Magnesium Sulfate 15 meq/ Multivitamins 10 ml/Chromium/ Copper/Manganese/ Seleni /Zn 1 ml/ Insulin Human Regular 10 unit/ Total Parenteral Nutrition/Amino Acids/ Dextrose/ Fat Emulsion Intravenous 1,512 ml @ 63 mls/hr TPN CONT IV Last administered on 01/07/19at 21:45; Start 01/07/19 at 22:00; Stop 01/08/19 at 21:59 ; Status DC Insulin Human Lispro (HumaLOG) 10 units 1X ONCE SQ Last administered on at 14:19; Start 01/07/19 at 14:00; Stop 01/07/19 at 14:01; Status DC Benzocaine (Hurricaine One) 1 spray 1X ONCE MM Last administered on 01/08/19at 09:44; Start 01/08/19 at 09:30; Stop 01/08/19 at 09:31; Status DC Lorazepam (Ativan) 0.5 mg PRN Q4HRS PRN IV ANXIETY / AGITATION Last administered on 01/13/19at 00:40; Start 01/08/19 at 10:45 Sodium Chloride 40 meq/Potassium Chloride 30 meq/ Potassium Phosphate 10 mmol/ Magnesium Sulfate 15 meq/ Multivitamins 10 ml/Chromium/ Copper/Manganese/ Seleni /Zn 1 ml/ Insulin Human Regular 10 unit/ Total Parenteral Nutrition/Amino Acids/ Dextrose/ Fat Emulsion Intravenous 1,512 ml @ 63 mls/hr TPN CONT IV Last administered on 01/08/19at 22:00; Start 01/08/19 at 22:00; Stop 01/09/19 at 21:59 ; Status DC Saliva Substitute (Biotene Moisturizing Mouth) 2 spray PRN Q15MIN PRN PO DRY MOUTH Last administered on 01/08/19at 14:55; Start 01/08/19 at 14:45 Insulin Glargine (Lantus) 18 units DAILY10 SQ Last administered on 01/12/19at 10 :00; Start 01/10/19 at 10:00 Sodium Chloride 40 meq/Potassium Chloride 30 meq/ Potassium Phosphate 10 mmol/ Magnesium Sulfate 15 meq/ Multivitamins 10 ml/Chromium/ Copper/Manganese/ Seleni /Zn 1 ml/ Insulin Human Regular 10 unit/ Total Parenteral Nutrition/Amino Acids/ Dextrose/ Fat Emulsion Intravenous 1,512 ml @ 63 mls/hr TPN CONT IV Last administered on 01/09/19at 22:22; Start 01/09/19 at 22:00; Stop 01/10/19 at 21:59 ; Status DC Duloxetine HCl (Cymbalta) 60 mg DAILY PO ; Start 01/11/19 at 09:00; Stop at 08:54; Status DC Memantine (Namenda) 10 mg DAILY PO ; Start 01/11/19 at 09:00; Stop 01/12/19 at 08:54; Status DC Sodium Chloride 40 meq/Potassium Acetate 50 meq/ Potassium Phosphate 10 mmol/ Magnesium Sulfate 18 meq/ Multivitamins 10 ml/Chromium/ Copper/Manganese/ Seleni /Zn 1 ml/ Insulin Human Regular 10 unit/ Total Parenteral Nutrition/Amino Acids/ Dextrose/ Fat Emulsion Intravenous 1,512 ml @ 63 mls/hr TPN CONT IV Last administered on 01/10/19at 22:18; Start 01/10/19 at 22:00; Stop 01/11/19 at 21:59 ; Status DC Sodium Chloride 40 meq/Potassium Acetate 50 meq/ Potassium Phosphate 10 mmol/ Magnesium Sulfate 18 meq/ Multivitamins 10 ml/Chromium/ Copper/Manganese/ Seleni /Zn 1 ml/ Insulin Human Regular 10 unit/ Total Parenteral Nutrition/Amino Acids/ Dextrose/ Fat Emulsion Intravenous 1,512 ml @ 63 mls/hr TPN CONT IV Last administered on 01/11/19at 22:05; Start 01/11/19 at 22:00; Stop 01/12/19 at 21:59 ; Status DC Sodium Chloride 40 meq/Potassium Acetate 50 meq/ Potassium Phosphate 10 mmol/ Magnesium Sulfate 18 meq/ Multivitamins 10 ml/Chromium/ Copper/Manganese/ Seleni /Zn 1 ml/ Insulin Human Regular 10 unit/ Total Parenteral Nutrition/Amino Acids/ Dextrose/ Fat Emulsion Intravenous 1,512 ml @ 63 mls/hr TPN CONT IV Last administered on 01/12/19at 22:07; Start 01/12/19 at 22:00; Stop 01/13/19 at 21:59 Vitamin A/Vitamin D (Vitamin A & D Ointment) 1 ranjith PRN Q1HR PRN TP SKIN PROTECTION; Start 01/12/19 at 15:30 Bisacodyl (Dulcolax Supp) 10 mg PRN DAILY PRN [place] [employer] 1ST CHOICE; Start 01/13/19 at 03:15 Magnesium Sulfate/ Dextrose 100 ml @ 100 mls/hr 1X ONCE IV Last administered on 01/13/19at 10:07; Start 01/13/19 at 09:30; Stop 01/13/19 at 10:29; Status DC Active Scripts Active Chlorhexidine Gluconate 473 Ml Mouthwash 473 Ml MM BID 7 Days Vitamin C (Ascorbate Calcium) 500 Mg Tablet 500 Mg PO DAILY 30 Days Slow Release Iron (Ferrous Sulfate) 250 Mg Tablet.er 250 Mg PO DAILY 30 Days Protonix (Pantoprazole Sodium) 40 Mg Granpkt.dr 40 Mg PO DAILY 30 Days Reported Alprazolam 0.25 Mg Tablet 0.25 Mg PO DAILY Metformin Hcl Er (Metformin Hcl) 500 Mg Tab.er.24h 1 Tab PO DAILY Namenda (Memantine Hcl) 10 Mg Tablet 1 Tab PO BID Losartan Potassium 100 Mg Tablet 100 Mg PO DAILY Spironolactone 25 Mg Tablet 1 Tab PO DAILY Ventolin Hfa Inhaler (Albuterol Sulfate) 18 Gm Hfa.aer.ad 2 Puff INH Q4HRS Cymbalta (Duloxetine Hcl) 20 Mg Capsule.dr 90 Mg PO DAILY Requip (Ropinirole Hcl) 1 Mg Tablet 3 Mg PO DAILY Amlodipine Besylate 10 Mg Tablet 10 Mg PO DAILY Vitals/I & O Vital Sign - Last 24 Hours 01/12/19 01/12/19 01/12/19 01/12/19 11:00 15:00 15:03 16:14 Temp 98.1 98.0 98.1 98.0 Pulse 82 80 Resp 18 20 B/P (MAP) 124/81 (95) 122/68 (86) Pulse Ox 95 92 O2 Delivery Nasal Cannula Room Air Nasal Cannula Nasal Cannula O2 Flow Rate 3.0 3.0 3.0 3.0 01/12/19 01/12/19 01/12/19 01/12/19 19:00 20:00 20:39 23:00 Temp 97.8 98.0 97.8 98.0 Pulse 78 81 Resp 20 20 B/P (MAP) 127/70 (89) 134/71 (92) Pulse Ox 96 96 99 O2 Delivery Room Air Nasal Cannula Nasal Cannula Room Air O2 Flow Rate 3.0 3.0 3.0 3.0 01/12/19 01/13/19 01/13/19 01/13/19 23:46 03:00 03:21 03:51 Temp 99.0 99.0 Pulse 86 Resp 20 B/P (MAP) 120/72 (88) Pulse Ox 100 O2 Delivery Nasal Cannula Room Air Nasal Cannula Nasal Cannula O2 Flow Rate 3.0 3.0 3.0 3.0 01/13/19 01/13/19 01/13/19 01/13/19 03:54 07:11 07:20 10:35 Temp 97.7 97.5 97.7 97.5 Pulse 61 84 Resp 20 22 B/P (MAP) 138/83 (101) 131/77 (95) Pulse Ox 98 100 98 O2 Delivery Nasal Cannula Nasal Cannula Room Air Room Air O2 Flow Rate 3.0 3.0 3.0 3.0 Intake and Output 01/12/19 01/12/19 01/13/19 14:59 22:59 06:59 Intake Total 240 ml Balance 240 ml SON LAU MD Jan 13, 2019 10:54
[2019-01-13] MEDS: TPN PER PHARMACY MC PRN (11:40)
--- NOTE | 2019-01-13 11:42 | PDOC ---
SURGICAL PROGRESS NOTE Subjective no emesis very hungry + stools Vital Signs Vital Signs Date Time Temp Pulse Resp B/P (MAP) Pulse Ox O2 Delivery O2 Flow Rate FiO2 01/13/19 10:35 97.5 84 22 131/77 (95) 98 Room Air 3.0 97.5 I&O Intake and Output 01/13/19 07:00 Intake Total 240 ml Balance 240 ml Intake Oral 240 ml # Voids 4 # Bowel Movements 3 Abdomen: Soft, Other (distention improved ) Labs Laboratory Tests Test 01/11/19 16:47 01/12/19 00:31 01/12/19 05:10 01/12/19 06:17 Glucose (Fingerstick) 82 mg/dL (70-99) 99 mg/dL (70-99) 110 mg/dL (70-99) Erythrocyte Sedimentation Rate 45 (0-25) Sodium Level 142 mmol/L (136-145) Potassium Level 4.1 mmol/L (3.5-5.1) Chloride Level 108 mmol/L (98-107) Carbon Dioxide Level 28 mmol/L (21-32) Anion Gap 6 (6-14) Blood Urea Nitrogen 25 mg/dL (7-20) Creatinine 0.7 mg/dL (0.6-1.0) Estimated GFR (Cockcroft-Gault) 98.7 Glucose Level 114 mg/dL (70-99) Calcium Level 8.1 mg/dL (8.5-10.1) Test 01/12/19 18:24 01/13/19 00:19 01/13/19 05:33 01/13/19 06:10 Glucose (Fingerstick) 115 mg/dL (70-99) 97 mg/dL (70-99) 123 mg/dL (70-99) White Blood Count 9.2 x10^3/uL (4.0-11.0) Red Blood Count 3.13 x10^6/uL (3.50-5.40) Hemoglobin 7.4 g/dL (12.0-15.5) Hematocrit 23.4 % (36.0-47.0) Mean Corpuscular Volume 75 fL (79-100) Mean Corpuscular Hemoglobin 24 pg (25-35) Mean Corpuscular Hemoglobin Concent 32 g/dL (31-37) Red Cell Distribution Width 24.0 % (11.5-14.5) Platelet Count 306 x10^3/uL (140-400) Sodium Level 141 mmol/L (136-145) Potassium Level 4.1 mmol/L (3.5-5.1) Chloride Level 105 mmol/L (98-107) Carbon Dioxide Level 30 mmol/L (21-32) Anion Gap 6 (6-14) Blood Urea Nitrogen 18 mg/dL (7-20) Creatinine 0.6 mg/dL (0.6-1.0) Estimated GFR (Cockcroft-Gault) 117.9 Glucose Level 122 mg/dL (70-99) Calcium Level 8.3 mg/dL (8.5-10.1) Phosphorus Level 3.5 mg/dL (2.6-4.7) Magnesium Level 1.7 mg/dL (1.8-2.4) Laboratory Tests Test 01/12/19 18:24 01/13/19 00:19 01/13/19 05:33 01/13/19 06:10 Glucose (Fingerstick) 115 mg/dL (70-99) 97 mg/dL (70-99) 123 mg/dL (70-99) White Blood Count 9.2 x10^3/uL (4.0-11.0) Red Blood Count 3.13 x10^6/uL (3.50-5.40) Hemoglobin 7.4 g/dL (12.0-15.5) Hematocrit 23.4 % (36.0-47.0) Mean Corpuscular Volume 75 fL (79-100) Mean Corpuscular Hemoglobin 24 pg (25-35) Mean Corpuscular Hemoglobin Concent 32 g/dL (31-37) Red Cell Distribution Width 24.0 % (11.5-14.5) Platelet Count 306 x10^3/uL (140-400) Sodium Level 141 mmol/L (136-145) Potassium Level 4.1 mmol/L (3.5-5.1) Chloride Level 105 mmol/L (98-107) Carbon Dioxide Level 30 mmol/L (21-32) Anion Gap 6 (6-14) Blood Urea Nitrogen 18 mg/dL (7-20) Creatinine 0.6 mg/dL (0.6-1.0) Estimated GFR (Cockcroft-Gault) 117.9 Glucose Level 122 mg/dL (70-99) Calcium Level 8.3 mg/dL (8.5-10.1) Phosphorus Level 3.5 mg/dL (2.6-4.7) Magnesium Level 1.7 mg/dL (1.8-2.4) Assessment/Plan try ABRAHAM Hua APRN Jan 13, 2019 11:42
--- NOTE | 2019-01-13 12:06 | NUR ---
SW following. Discussed with RN. LATANYA faxed referral to [facility] yesterday (01/12/19). Awaiting insurance approval. LATANYA will continue to follow.
--- NOTE | 2019-01-13 12:09 | NUR ---
Pharmacy TPN Dosing Note S: ELLE LATHAM is a 72 year old F Currently receiving Central Continuous TPN started 12/23/18 B:Pertinent PMH: SBO Height: 5 feet, 7 inches Weight: 85.946176 kg Current diet: npo LABS: Sodium: 141 Potassium: 4.1 Chloride: 105 Calcium: 8.3 Corrected Calcium: 9.98 Magnesium: 1.7 CO2: 30 SCr: 0.6 Glucose: 122 Albumin: 1.9 AST: 34 ALT: 58 TPN FORMULA: TPN TYPE: Central Continuous AMINO ACIDS: 85 gm DEXTROSE: 260 gm LIPIDS: 40 gm SODIUM CHLORIDE: 40 mEq SODIUM ACETATE: - mEq SODIUM PHOSPHATE: - mmol POTASSIUM CHLORIDE: - mEq POTASSIUM ACETATE: 50 mEq POTASSIUM PHOSPHATE: 10 mmol MAGNESIUM: 22 mEq CALCIUM: 0 mEq INSULIN: 10 units MULTIPLE VITAMIN: 10 ml TRACE ELEMENTS: MTE5 1 ml(s) TPN PLAN: Lytes WNL. Mag 1.7 with 1 g (8meq) repletion given per primary. Four meq added to TPN. Mag R: Continue TPN as above. Will monitor electrolytes, glucose, and tolerance to TPN. MELIA PRUITT [facility], 01/13/19 [id number]
[2019-01-13] MEDS: INSULIN GLARGINE 300 UNITS/3 ML INSULN.PEN. SQ SCH (12:19)
[2019-01-13] MEDS ORDERED: HYDROCORTISONE ACETATE 25 MG SUPP.RECT PR PRN (14:00)
[2019-01-13 14:36] VITALS: BP 124/77
[2019-01-13 19:00] VITALS: BP 144/80
[2019-01-13] MEDS: VITS A & D/LANOLIN TOPICAL OINTMENT 56GM TUBE. TP PRN (21:08)
[2019-01-13] MEDS: NEOMY/BACITR/POLYMYXIN OINT PACKET. TP PRN (21:08)
[2019-01-13] MEDS ORDERED: TOTAL PARENTERAL NUTRITION IV SCH ×10 (22:00)
[2019-01-13] MEDS ORDERED: AMINO ACID IV SCH ×10 (22:00)
[2019-01-13] MEDS ORDERED: [UNRECOGNIZED DRUG - OTHER] IV SCH ×10 (22:00)
[2019-01-13] MEDS ORDERED: DEXTROSE 70% IV SCH ×10 (22:00)
[2019-01-13 23:00] VITALS: BP 150/82
[2019-01-13] MEDS: BENZOCAINE/MENTHOL LOZENGE. PO PRN (23:35)
[2019-01-14] MEDS: HYDROmorphone 2 MG/ML VIAL IV PRN ×2 (02:10→14:54)
[2019-01-14 03:00] VITALS: BP 135/77
[2019-01-14] MEDS: IPRATRPIUM/ALBUTEROL 0.5/2.5MG 3 ML NEBU. NEB SCH ×7 (03:39→23:16)
[2019-01-14] MEDS: PANTOPRAZOLE IV PUSH 40 MG VIAL. IVP SCH (05:56)
[2019-01-14] MEDS: INSULIN LISPRO 300 UNITS/3 ML INSULN.PEN. SQ SCH ×7 (06:00→17:30)
[2019-01-14 06:44] LABS: HEMATOCRIT 23.4 % (36.0-47.0); HEMOGLOBIN 7.4 g/dL (12.0-15.5)
[2019-01-14 07:00] VITALS: BP 137/74
[2019-01-14] MEDS: BUDESONIDE 0.5 MG/2 ML NEBU. NEB SCH ×2 (07:30→20:25)
[2019-01-14] MEDS: ONDANSETRON PF 4 MG/2 ML VIAL. IV PRN (07:54)
--- NOTE | 2019-01-14 08:28 | NUR ---
SW following. Insurance has denied pt to go to [facility]. Tea from [employer] insurance advised pt has been approved to go to a retirement facility. LATANYA faxed referral to [facility] as [facility] T[facility]. [facility] are out of network. LATANYA will continue to follow.
[2019-01-14] MEDS: ENOXAPARIN 40 MG/0.4 ML SYRINGE. SQ SCH (08:36)
[2019-01-14] MEDS: CHLORHEXIDINE 0.12% 15 ML MOUTHWASH. MM SCH ×2 (08:39→21:52)
--- NOTE | 2019-01-14 09:04 | PDOC ---
SURGICAL PROGRESS NOTE Subjective Patient resting comfortably in bed states that she's had several bowel movements overnight passing flatus tolerating clear liquid diet Vital Signs Vital Signs Date Time Temp Pulse Resp B/P (MAP) Pulse Ox O2 Delivery O2 Flow Rate FiO2 01/14/19 07:32 100 Nasal Cannula 3.0 01/14/19 03:00 98.6 78 18 135/77 (96) 98.6 I&O Intake and Output 01/14/19 06:59 Intake Total 1110 ml Balance 1110 ml Intake Oral 1010 ml IV Total 100 ml # Voids 4 # Bowel Movements 4 PATIENT HAS A PILLAI: No General: Alert, Oriented X3, Cooperative, No acute distress Abdomen: Normal bowel sounds, Soft, Other (wounds clean dry and intact [place] removed) Labs Laboratory Tests Test 01/12/19 18:24 01/13/19 00:19 01/13/19 05:33 01/13/19 06:10 Glucose (Fingerstick) 115 mg/dL (70-99) 97 mg/dL (70-99) 123 mg/dL (70-99) White Blood Count 9.2 x10^3/uL (4.0-11.0) Red Blood Count 3.13 x10^6/uL (3.50-5.40) Hemoglobin 7.4 g/dL (12.0-15.5) Hematocrit 23.4 % (36.0-47.0) Mean Corpuscular Volume 75 fL (79-100) Mean Corpuscular Hemoglobin 24 pg (25-35) Mean Corpuscular Hemoglobin Concent 32 g/dL (31-37) Red Cell Distribution Width 24.0 % (11.5-14.5) Platelet Count 306 x10^3/uL (140-400) Sodium Level 141 mmol/L (136-145) Potassium Level 4.1 mmol/L (3.5-5.1) Chloride Level 105 mmol/L (98-107) Carbon Dioxide Level 30 mmol/L (21-32) Anion Gap 6 (6-14) Blood Urea Nitrogen 18 mg/dL (7-20) Creatinine 0.6 mg/dL (0.6-1.0) Estimated GFR (Cockcroft-Gault) 117.9 Glucose Level 122 mg/dL (70-99) Calcium Level 8.3 mg/dL (8.5-10.1) Phosphorus Level 3.5 mg/dL (2.6-4.7) Magnesium Level 1.7 mg/dL (1.8-2.4) Test 01/13/19 11:41 01/13/19 17:32 01/13/19 23:52 01/14/19 06:00 Glucose (Fingerstick) 178 mg/dL (70-99) 107 mg/dL (70-99) 124 mg/dL (70-99) Hemoglobin 7.4 g/dL (12.0-15.5) Hematocrit 23.4 % (36.0-47.0) Mean Corpuscular Hemoglobin Concent 32 g/dL (31-37) Magnesium Level 1.8 mg/dL (1.8-2.4) Test 01/14/19 06:20 Glucose (Fingerstick) 142 mg/dL (70-99) Laboratory Tests Test 01/13/19 11:41 01/13/19 17:32 01/13/19 23:52 01/14/19 06:00 Glucose (Fingerstick) 178 mg/dL (70-99) 107 mg/dL (70-99) 124 mg/dL (70-99) Hemoglobin 7.4 g/dL (12.0-15.5) Hematocrit 23.4 % (36.0-47.0) Mean Corpuscular Hemoglobin Concent 32 g/dL (31-37) Magnesium Level 1.8 mg/dL (1.8-2.4) Test 01/14/19 06:20 Glucose (Fingerstick) 142 mg/dL (70-99) Assessment/Plan That is post right colectomy prolonged ileus appears to be resolving and is passing stool advanced diet to full liquids DAYLIN WEI MD Jan 14, 2019 09:04
--- NOTE | 2019-01-14 09:23 | PDOC ---
PULMONARY PROGRESS NOTES Subjective UP IN CHAIR NOT SOA LIQUIDS DIET Vitals Vital Signs Date Time Temp Pulse Resp B/P (MAP) Pulse Ox O2 Delivery O2 Flow Rate FiO2 01/14/19 07:32 100 Nasal Cannula 3.0 01/14/19 03:00 98.6 78 18 135/77 (96) 98.6 ROS: No Nausea, No Chest Pain General: Alert, Mild Distress HEENT: Other (nc at perrl nose throat clear neck +JVD no lad, no thyromegaly ) Lungs: Clear Cardiovascular: S1, S2 Abdomen: Soft, Non-tender, Other (distended) Neuro Exam: Alert, Oriented Extremities: No Edema Skin: Warm Labs Laboratory Tests Test 01/12/19 18:24 01/13/19 00:19 01/13/19 05:33 01/13/19 06:10 Glucose (Fingerstick) 115 mg/dL (70-99) 97 mg/dL (70-99) 123 mg/dL (70-99) White Blood Count 9.2 x10^3/uL (4.0-11.0) Red Blood Count 3.13 x10^6/uL (3.50-5.40) Hemoglobin 7.4 g/dL (12.0-15.5) Hematocrit 23.4 % (36.0-47.0) Mean Corpuscular Volume 75 fL (79-100) Mean Corpuscular Hemoglobin 24 pg (25-35) Mean Corpuscular Hemoglobin Concent 32 g/dL (31-37) Red Cell Distribution Width 24.0 % (11.5-14.5) Platelet Count 306 x10^3/uL (140-400) Sodium Level 141 mmol/L (136-145) Potassium Level 4.1 mmol/L (3.5-5.1) Chloride Level 105 mmol/L (98-107) Carbon Dioxide Level 30 mmol/L (21-32) Anion Gap 6 (6-14) Blood Urea Nitrogen 18 mg/dL (7-20) Creatinine 0.6 mg/dL (0.6-1.0) Estimated GFR (Cockcroft-Gault) 117.9 Glucose Level 122 mg/dL (70-99) Calcium Level 8.3 mg/dL (8.5-10.1) Phosphorus Level 3.5 mg/dL (2.6-4.7) Magnesium Level 1.7 mg/dL (1.8-2.4) Test 01/13/19 11:41 01/13/19 17:32 01/13/19 23:52 01/14/19 06:00 Glucose (Fingerstick) 178 mg/dL (70-99) 107 mg/dL (70-99) 124 mg/dL (70-99) Hemoglobin 7.4 g/dL (12.0-15.5) Hematocrit 23.4 % (36.0-47.0) Mean Corpuscular Hemoglobin Concent 32 g/dL (31-37) Magnesium Level 1.8 mg/dL (1.8-2.4) Test 01/14/19 06:20 Glucose (Fingerstick) 142 mg/dL (70-99) Laboratory Tests Test 01/13/19 11:41 01/13/19 17:32 01/13/19 23:52 01/14/19 06:00 Glucose (Fingerstick) 178 mg/dL (70-99) 107 mg/dL (70-99) 124 mg/dL (70-99) Hemoglobin 7.4 g/dL (12.0-15.5) Hematocrit 23.4 % (36.0-47.0) Mean Corpuscular Hemoglobin Concent 32 g/dL (31-37) Magnesium Level 1.8 mg/dL (1.8-2.4) Test 01/14/19 06:20 Glucose (Fingerstick) 142 mg/dL (70-99) Medications Active Scripts Medications Dose Route/Sig Max Daily Dose Days Date Category Chlorhexidine Gluconate 473 Ml Mouthwash 473 Ml MM BID 12/10/18 Rx Vitamin C (Ascorbate Calcium) 500 Mg Tablet 500 Mg PO DAILY 30 11/22/18 Rx Slow Release Iron (Ferrous Sulfate) 250 Mg Tablet.er 250 Mg PO DAILY 30 11/22/18 Rx Protonix (Pantoprazole Sodium) 40 Mg Granpkt.dr 40 Mg PO DAILY 11/22/18 Rx Metformin Hcl Er (Metformin Hcl) 500 Mg Tab.er.24h 1 Tab PO DAILY 11/12/16 Reported Namenda (Memantine Hcl) 10 Mg Tablet 1 Tab PO BID 11/12/16 Reported Losartan Potassium 100 Mg Tablet 100 Mg PO DAILY 11/12/16 Reported Spironolactone 25 Mg Tablet 1 Tab PO DAILY 11/12/16 Reported Ventolin Hfa Inhaler (Albuterol Sulfate) 18 Gm Hfa.aer.ad 2 Puff INH Q4HRS 11/11/16 Reported Cymbalta (Duloxetine Hcl) 20 Mg Capsule.dr 90 Mg PO DAILY 01/27/16 Reported Requip (Ropinirole Hcl) 1 Mg Tablet 3 Mg PO DAILY 01/27/16 Reported Amlodipine Besylate 10 Mg Tablet 10 Mg PO DAILY 01/27/16 Reported Comments cxr reviewed, b lat ll effusion/atelectasis/infilt L>R Impression . 1. Acute hypoxic respiratory failure MULTIFACTORIAL EXPECTED POST SURGICAL INTERVENTION 2. Gastrointestinal bleed/cecal ulceration by colonoscopy, status post laparoscopic-assisted right colon resection and hemorrhoidectomy 12/17 3. ileus S/P SECOND SURGERY 12/30 SEE BELOW 4. Underlying suspected severe chronic obstructive pulmonary disease. 5. Abnormal CT chest with focal opacity in the right upper lobe, could be nodule/ATELECTASIS Date: 12/17/2018 Preoperative diagnosis: GI bleed cecal ulceration by colonoscopy with active bleeding hemorrhoids Postoperative diagnosis: Same Procedure: Laparoscopic-assisted right colon resection and hemorrhoidectomy Surgeon: Jan Specimen: Right colon and hemorrhoids Date: 12/30/2018 Preoperative diagnosis: Small bowel obstruction Postoperative diagnosis: Small bowel obstruction at previous anastomotic site Procedure: Exploratory laparotomy with extended right hemicolectomy and primary anastomosis Plan . NEEDS PT OT GETTING STONGER TOLERATED LIQUIDS TODAY MAY NEED LTAC RESP STATUS IS COMPENSATED PRN BIPAP FOLLOW UP CT IN 3 MONTHS, dr valentine discussed w DAUGHTER MARIA ALEJANDRA VALENTINE MD Jan 14, 2019 09:22
--- NOTE | 2019-01-14 09:35 | PDOC ---
Subjective: Subjective: Says she's movin up in the world and got some jello. Also "I get mashed potatoes today." Stooling a lot, passing gas. Pain about 5/10. Objective: Vital Signs: Vital Signs Date Time Temp Pulse Resp B/P (MAP) Pulse Ox O2 Delivery O2 Flow Rate FiO2 01/14/19 07:32 100 Nasal Cannula 3.0 01/14/19 07:00 98.1 85 16 137/74 (95) 98.1 Labs: Laboratory Tests Test 01/13/19 11:41 01/13/19 17:32 01/13/19 23:52 01/14/19 06:00 Glucose (Fingerstick) 178 mg/dL 107 mg/dL 124 mg/dL Hemoglobin 7.4 g/dL Hematocrit 23.4 % Mean Corpuscular Hemoglobin Concent 32 g/dL Magnesium Level 1.8 mg/dL Test 01/14/19 06:20 Glucose (Fingerstick) 142 mg/dL PE: GEN: NAD - rolled on side, staff cleaning up LUNGS: NC HEART: RRR ABD: less distended NEURO/PSYCH: A & O 3 A/P: Post-op ileus - improving Anemia - stable COPD -- Plans to advance diet, await response. Change to PO PPI. RADHA JUSTICE Jan 14, 2019 09:35
[2019-01-14] MEDS: INSULIN GLARGINE 300 UNITS/3 ML INSULN.PEN. SQ SCH (10:51)
[2019-01-14 11:00] VITALS: BP 105/75
[2019-01-14] MEDS: TPN PER PHARMACY MC PRN (11:33)
--- NOTE | 2019-01-14 11:33 | NUR ---
Pharmacy TPN Dosing Note S: ELLE LATHAM is a 72 year old F Currently receiving Central Continuous TPN started 12/23/18 B:Pertinent PMH: SBO Height: 5 feet, 7 inches Weight: 85 kg Current diet: npo LABS: Sodium: 141 Potassium: 4.1 Chloride: 105 Calcium: 8.3 Corrected Calcium: 9.98 Magnesium: 1.8 CO2: 30 SCr: 0.6 Glucose: 122 Albumin: 1.9 AST: 34 ALT: 58 TPN FORMULA: TPN TYPE: Central Continuous AMINO ACIDS: 85 gm DEXTROSE: 260 gm LIPIDS: 40 gm SODIUM CHLORIDE: 40 mEq POTASSIUM ACETATE: 50 mEq POTASSIUM PHOSPHATE: 10 mmol MAGNESIUM: 22 mEq INSULIN: 10 units MULTIPLE VITAMIN: 10 ml TRACE ELEMENTS: MTE5 1 ml TPN PLAN: -Magnesium WNL, no other labs today, continue same TPN formula. -Patient starting full liquid diet today. -No labs tomorrow per protocol. R: Continue TPN @ current rate and above formula. Will monitor electrolytes, glucose, and tolerance to TPN. ELIDA HUFFMAN [facility], 01/14/19 [id number]
--- NOTE | 2019-01-14 12:53 | PDOC ---
PROGRESS NOTES Chief Complaint Chief Complaint Cecal ulceration - s/p X LAP - rt colon resection and hemorrhoidectomy 12/30 Anemia, colonic Avms Acute hypoxic respiratory failure, improving post op malnutrition VISHNU COPD Sepsis/Leukopenia - meropenem and vanco, ID following ileus History of Present Illness History of Present Illness Status post exploratory laparoscopy 12/30 and had a remarkable postop course- ileus on TPN with NGT eating full liquid, feeling better, needs PT, still on TPN, if calorie count goes well, may be able to DC on DC Continue daily PT OT I am okay doing peer to peer with [employer] today Low magnesium replaced Vitals Vitals Vital Signs Date Time Temp Pulse Resp B/P (MAP) Pulse Ox O2 Delivery O2 Flow Rate FiO2 01/14/19 11:38 96 Nasal Cannula 3.0 01/14/19 11:00 97.8 86 18 105/75 (85) 97.8 Physical Exam Physical Exam GENERAL: Sitting in the chair, relaxed appearance, alert. HEENT: Oral cavity pink, dry NECK: Supple LUNGS: Diminished aeration bases, nonlabored HEART: S1, S2 ABDOMEN: Distended, NT to light palpation. + BS, dressing. mild serous fluid EXTREMITIES: LLE 1+ edema. no cyanosis SKIN: No rash. NEUROLOGIC: Alert, responding appropriately RUE-PICC (12/23) clean General: Alert, Oriented X3, Cooperative, No acute distress Heart: Regular rate, Normal S1, Normal S2, No murmurs Lungs: Clear Abdomen: Normal bowel sounds, Soft, Other (wounds clean dry and intact [place] removed) Extremities: No clubbing, No cyanosis, No edema Skin: No breakdown, No significant lesion Labs LABS Laboratory Tests Test 01/13/19 17:32 01/13/19 23:52 01/14/19 06:00 01/14/19 06:20 Glucose (Fingerstick) 107 mg/dL (70-99) 124 mg/dL (70-99) 142 mg/dL (70-99) Hemoglobin 7.4 g/dL (12.0-15.5) Hematocrit 23.4 % (36.0-47.0) Mean Corpuscular Hemoglobin Concent 32 g/dL (31-37) Magnesium Level 1.8 mg/dL (1.8-2.4) Comment Review of Relevant I have reviewed the following items abdifatah (where applicable) has been applied. Labs Laboratory Tests Test 01/12/19 18:24 01/13/19 00:19 01/13/19 05:33 01/13/19 06:10 Glucose (Fingerstick) 115 mg/dL (70-99) 97 mg/dL (70-99) 123 mg/dL (70-99) White Blood Count 9.2 x10^3/uL (4.0-11.0) Red Blood Count 3.13 x10^6/uL (3.50-5.40) Hemoglobin 7.4 g/dL (12.0-15.5) Hematocrit 23.4 % (36.0-47.0) Mean Corpuscular Volume 75 fL (79-100) Mean Corpuscular Hemoglobin 24 pg (25-35) Mean Corpuscular Hemoglobin Concent 32 g/dL (31-37) Red Cell Distribution Width 24.0 % (11.5-14.5) Platelet Count 306 x10^3/uL (140-400) Sodium Level 141 mmol/L (136-145) Potassium Level 4.1 mmol/L (3.5-5.1) Chloride Level 105 mmol/L (98-107) Carbon Dioxide Level 30 mmol/L (21-32) Anion Gap 6 (6-14) Blood Urea Nitrogen 18 mg/dL (7-20) Creatinine 0.6 mg/dL (0.6-1.0) Estimated GFR (Cockcroft-Gault) 117.9 Glucose Level 122 mg/dL (70-99) Calcium Level 8.3 mg/dL (8.5-10.1) Phosphorus Level 3.5 mg/dL (2.6-4.7) Magnesium Level 1.7 mg/dL (1.8-2.4) Test 01/13/19 11:41 01/13/19 17:32 01/13/19 23:52 01/14/19 06:00 Glucose (Fingerstick) 178 mg/dL (70-99) 107 mg/dL (70-99) 124 mg/dL (70-99) Hemoglobin 7.4 g/dL (12.0-15.5) Hematocrit 23.4 % (36.0-47.0) Mean Corpuscular Hemoglobin Concent 32 g/dL (31-37) Magnesium Level 1.8 mg/dL (1.8-2.4) Test 01/14/19 06:20 Glucose (Fingerstick) 142 mg/dL (70-99) Laboratory Tests Test 01/13/19 17:32 01/13/19 23:52 01/14/19 06:00 01/14/19 06:20 Glucose (Fingerstick) 107 mg/dL (70-99) 124 mg/dL (70-99) 142 mg/dL (70-99) Hemoglobin 7.4 g/dL (12.0-15.5) Hematocrit 23.4 % (36.0-47.0) Mean Corpuscular Hemoglobin Concent 32 g/dL (31-37) Magnesium Level 1.8 mg/dL (1.8-2.4) Microbiology 01/01/19 Blood Culture - Final, Complete NO GROWTH AFTER 5 DAYS 12/25/18 - Final, Complete 12/25/18 - Final, Complete 12/25/18 - Final, Complete 12/25/18 - Final, Complete 12/25/18 Gram Stain Evaluation - Final, Complete 12/25/18 Sputum Culture - Final, Complete 12/25/18 Sputum Result 1 - Final, Complete Medications Current Medications Sodium Chloride 1,000 ml @ 1,000 mls/hr 1X ONCE IV Last administered on at 13:52; Start 12/14/18 at 13:30; Stop 12/14/18 at 14:29; Status DC Amlodipine Besylate (Norvasc) 10 mg DAILY PO Last administered on 01/07/19at 08: 45; Start 12/14/18 at 17:00; Stop 01/12/19 at 08:54; Status DC Chlorhexidine Gluconate (Peridex) 15 ml BID MM Last administered on 01/13/19at 21:08; Start 12/14/18 at 21:00 Non-Formulary Medication (Albuterol Sulfate (Ventolin Hfa Inhaler)) 2 puff Q4HRS INH ; Start 12/14/18 at 20:00; Status UNV Ascorbic Acid (Vitamin C) 500 mg DAILY PO Last administered on 12/22/18at 10:30; Start 12/14/18 at 17:00; Stop 01/12/19 at 08:54; Status DC Duloxetine HCl (Cymbalta) 90 mg DAILY PO Last administered on 01/07/19 08:48; Start 12/14/18 at 17:00; Stop 01/10/19 at 10:18; Status DC Ferrous Sulfate (Feosol) 325 mg DAILYWBKFT PO Last administered on 12/22/18 10: 30; Start 12/14/18 at 17:00; Stop 01/12/19 at 08:54; Status DC Losartan Potassium (Cozaar) 100 mg DAILY PO Last administered on 12/22/18 10:29 ; Start 12/14/18 at 17:00; Stop 01/12/19 at 08:54; Status DC Memantine (Namenda) 10 mg BID PO Last administered on 01/07/19 08:45; Start at 21:00; Stop 01/10/19 at 10:18; Status DC Pantoprazole Sodium (Protonix) 40 mg DAILYAC PO Last administered on 12/22/18 05:28; Start 12/14/18 at 17:00; Stop 12/24/18 at 09:25; Status DC Ropinirole HCl (Requip) 3 mg QHS PO Last administered on 01/07/19 20:26; Start 12/14/18 at 21:00; Stop 01/12/19 at 08:54; Status DC Spironolactone (Aldactone) 25 mg DAILY PO Last administered on 01/07/19 08:45 ; Start 12/14/18 at 17:00; Stop 01/12/19 at 08:54; Status DC Albuterol Sulfate (Ventolin Neb Soln) 2.5 mg Q4HRS NEB Last administered on at 06:52; Start 12/14/18 at 20:00; Stop 01/02/19 at 07:24; Status DC Sodium Chloride 1,000 ml @ 80 mls/hr [id number] IV Last administered on 12/23/18 15:25; Start 12/14/18 at 17:15; Stop 12/23/18 at 21:59; Status DC Acetaminophen (Tylenol) 650 mg PRN Q6HRS PRN PO Pain Last administered on 21:27; Start 12/15/18 at 04:45; Stop 12/26/18 at 21:07; Status DC Polyethylene Glycol (miraLAX Powder BULK BOTTLE) 238 gm 1X ONCE PO Last administered on 12/15/18at 12:48; Start 12/15/18 at 12:00; Stop 12/15/18 at 12:01 ; Status DC Ondansetron HCl (Zofran) 4 mg PRN Q6HRS PRN IV NAUSEA/VOMITING; Start 12/16/18 at 07:00; Stop 12/17/18 at 06:59; Status DC Fentanyl Citrate (Fentanyl 2ml Vial) 25 mcg PRN Q5MIN PRN IV MILD PAIN; Start 12/16/18 at 07:00; Stop 12/16/18 at 16:33; Status DC Fentanyl Citrate (Fentanyl 2ml Vial) 50 mcg PRN Q5MIN PRN IV MODERATE TO SEVERE PAIN; Start 12/16/18 at 07:00; Stop 12/16/18 at 16:33; Status DC Morphine Sulfate (Morphine Sulfate) 1 mg PRN Q10MIN PRN IV SEVERE PAIN; Start 12/16/18 at 07:00; Stop 12/17/18 at 06:59; Status DC Ringer's Solution 1,000 ml @ 30 mls/hr Q24H IV Last administered on 12/16/18at 13:00; Start 12/16/18 at 07:00; Stop 12/16/18 at 18:59; Status DC Lidocaine HCl (Xylocaine-Mpf 1% 2ml Vial) 2 ml PRN 1X PRN ID IV START; Start at 07:00; Stop 12/17/18 at 06:59; Status DC Hydromorphone HCl (Dilaudid) 0.5 mg PRN Q10MIN PRN IV SEV PAIN, Second choice; Start 12/16/18 at 07:00; Stop 12/17/18 at 06:59; Status DC Prochlorperazine Edisylate (Compazine) 5 mg PACU PRN PRN IV NAUSEA, MRX1; Start 12/16/18 at 07:00; Stop 12/17/18 at 06:59; Status DC Midazolam HCl (Versed) 2 mg PRN 1X PRN IV PRIOR TO PROCEDURE; Start 12/16/18 at 07:15; Stop 12/17/18 at 07:14; Status DC Fentanyl Citrate (Fentanyl 2ml Vial) 25 mcg PRN Q5MIN PRN IV X 2 DOSES FOR PAIN ; Start 12/16/18 at 07:15; Stop 12/16/18 at 16:33; Status DC Fentanyl Citrate (Fentanyl 2ml Vial) 50 mcg PRN Q5MIN PRN IV X 2 DOSES FOR PAIN ; Start 12/16/18 at 07:15; Stop 12/16/18 at 16:34; Status DC Ringer's Solution 1,000 ml @ 125 mls/hr Q8H IV ; Start 12/16/18 at 07:13; Stop 12/16/18 at 19:12; Status DC Lidocaine HCl (Xylocaine-Mpf 1% 2ml Vial) 2 ml 1X PRN PRN ID IV START; Start at 07:15; Stop 12/17/18 at 07:14; Status DC Propofol 40 ml @ As Directed STK-MED ONCE IV ; Start 12/16/18 at 13:58; Stop at 14:00; Status DC Prochlorperazine Edisylate (Compazine) 5 mg PACU PRN PRN IV NAUSEA, MRX1; Start 12/17/18 at 07:00; Stop 12/18/18 at 06:59; Status DC Hydromorphone HCl (Dilaudid) 0.5 mg PRN Q10MIN PRN IV SEV PAIN, Second choice; Start 12/17/18 at 07:00; Stop 12/18/18 at 06:59; Status DC Lidocaine HCl (Xylocaine-Mpf 1% 2ml Vial) 2 ml PRN 1X PRN ID IV START; Start at 07:00; Stop 12/18/18 at 06:59; Status DC Ringer's Solution 1,000 ml @ 30 mls/hr Q24H IV Last administered on 12/17/18at 10:34; Start 12/17/18 at 07:00; Stop 12/17/18 at 18:59; Status DC Morphine Sulfate (Morphine Sulfate) 1 mg PRN Q10MIN PRN IV SEVERE PAIN; Start 12/17/18 at 07:00; Stop 12/18/18 at 06:59; Status DC Fentanyl Citrate (Fentanyl 2ml Vial) 50 mcg PRN Q5MIN PRN IV MODERATE TO SEVERE PAIN Last administered on 12/17/18at 11:13; Start 12/17/18 at 07:00; Stop at 06:59; Status DC Fentanyl Citrate (Fentanyl 2ml Vial) 25 mcg PRN Q5MIN PRN IV MILD PAIN; Start 12/17/18 at 07:00; Stop 12/18/18 at 06:59; Status DC Ondansetron HCl (Zofran) 4 mg PRN Q6HRS PRN IV NAUSEA/VOMITING; Start 12/17/18 at 07:00; Stop 12/18/18 at 06:59; Status DC Propofol 20 ml @ As Directed STK-MED ONCE IV ; Start 12/17/18 at 07:21; Stop 12/17 at 07:23; Status DC Albuterol Sulfate (Ventolin Neb Soln) 2.5 mg 1X ONCE NEB ; Start 12/17/18 at 07: 30; Stop 12/17/18 at 07:31; Status DC Lidocaine HCl (Lidocaine Pf 2% Vial) 5 ml STK-MED ONCE .ROUTE ; Start 12/17/18 at 07:21; Stop 12/17/18 at 07:23; Status DC Succinylcholine Chloride (Anectine) 200 mg STK-MED ONCE .ROUTE ; Start 12/17/18 at 07:21; Stop 12/17/18 at 07:23; Status DC Rocuronium [place] (Zemuron) 50 mg STK-MED ONCE .ROUTE ; Start 12/17/18 at 07:21 ; Stop 12/17/18 at 07:23; Status DC Fentanyl Citrate (Fentanyl 2ml Vial) 100 mcg STK-MED ONCE .ROUTE ; Start at 07:21; Stop 12/17/18 at 07:24; Status DC Cefazolin Sodium/ Dextrose 50 ml @ 100 mls/hr 1X ONCE IV Last administered on 12/17/18at 08:07; Start 12/17/18 at 07:45; Stop 12/17/18 at 08:18; Status DC Bupivacaine HCl/ Epinephrine Bitart (Sensorcain-Mpf Epi 0.5%-1:[id number]) 30 ml STK -MED ONCE .ROUTE Last administered on 12/17/18at 08:34; Start 12/17/18 at 07:46; Stop 12/17/18 at 07:49; Status DC Neomycin/ Polymyxin/ Bacitracin (Triple Antibiotic Ointment) 1 pkt STK-MED ONCE TP Last administered on 12/17/18at 10:07; Start 12/17/18 at 07:46; Stop 12/17/18 at 07:49; Status DC Neomycin/ Polymyxin/ Bacitracin (Triple Antibiotic Ointment) 1 pkt STK-MED ONCE TP Last administered on 12/17/18at 10:07; Start 12/17/18 at 07:46; Stop 12/17/18 at 07:49; Status DC Neomycin/ Polymyxin/ Bacitracin (Triple Antibiotic Ointment) 1 pkt STK-MED ONCE TP ; Start 12/17/18 at 07:47; Stop 12/17/18 at 07:49; Status DC Dexamethasone Sodium Phosphate (Decadron) 20 mg STK-MED ONCE .ROUTE ; Start 12/17 at 07:54; Stop 12/17/18 at 07:56; Status DC Hydrocortisone Sodium Succinate (Solu-CORTEF) 100 mg STK-MED ONCE .ROUTE ; Start 12/17/18 at 07:54; Stop 12/17/18 at 07:56; Status DC Desflurane (Suprane) 90 ml STK-MED ONCE IH ; Start 12/17/18 at 07:54; Stop at 07:56; Status DC Neostigmine Methylsulfate (Bloxiverz) 10 mg STK-MED ONCE .ROUTE ; Start 12/17/18 at 08:21; Stop 12/17/18 at 08:24; Status DC Glycopyrrolate (Robinul) 1 mg STK-MED ONCE .ROUTE ; Start 12/17/18 at 08:21; Stop 12/17/18 at 08:24; Status DC Phenylephrine HCl (Bogdan-Synephrine Inj) 10 mg STK-MED ONCE .ROUTE ; Start at 08:23; Stop 12/17/18 at 08:26; Status DC Desflurane (Suprane) 60 ml STK-MED ONCE IH ; Start 12/17/18 at 09:23; Stop at 09:26; Status DC Bupivacaine HCl/ Epinephrine Bitart (Sensorcain-Mpf Epi 0.5%-1:[id number]) 30 ml STK -MED ONCE .ROUTE Last administered on 12/17/18 10:06; Start 12/17/18 at 09:41; Stop 12/17/18 at 09:43; Status DC Morphine Sulfate (Morphine Sulfate) 2 mg PRN Q2HR PRN IV PAIN Last administered on 12/25/18 09:26; Start 12/17/18 at 10:15; Stop 12/25/18 at 17:54; Status DC Ketorolac Tromethamine (Toradol 15mg Vial) 15 mg Q6HRS IV Last administered on 12/18/18 05:39; Start 12/17/18 at 12:00; Stop 12/18/18 at 10:00; Status DC Artificial Tears (Artificial Tears) 1 drop PRN Q15MIN PRN OU DRY EYE Last administered on 12/20/18 21:28; Start 12/18/18 at 08:00 Docusate Sodium (Colace) 100 mg DAILY PO Last administered on 01/07/19 08:45; Start 12/18/18 at 10:00; Stop 01/12/19 at 08:54; Status DC Throat Lozenges (Cepacol Sore Throat Lozenge) 1 kristyn PRN Q2HRS PRN PO SORE THROAT Last administered on 01/13/19 23:35; Start 12/18/18 at 14:00 Enoxaparin Sodium (Lovenox 40mg Syringe) 40 mg Q24H SQ Last administered on 01/14 08:36; Start 12/19/18 at 09:00 Ondansetron HCl (Zofran) 4 mg PRN Q6HRS PRN IV NAUSEA/VOMITING Last administered on 01/14/19 07:54; Start 12/19/18 at 11:30 Insulin Human Lispro (HumaLOG) 0-5 UNITS TIDWMEALS SQ Last administered on 12/30 18:23; Start 12/19/18 at 17:00; Stop 12/31/18 at 00:05; Status DC Dextrose (Dextrose 50%-Water Syringe) 12.5 gm PRN Q15MIN PRN IV SEE COMMENTS; Start 12/19/18 at 16:45 Levofloxacin/ Dextrose 100 ml @ 100 mls/hr 1X ONCE IV Last administered on 12/19/18at 20:56; Start 12/19/18 at 21:00; Stop 12/19/18 at 21:59; Status DC Cefepime HCl (Maxipime) 2 gm Q12HR IVP Last administered on 12/29/18at 10:02; Start 12/21/18 at 10:00; Stop 12/29/18 at 10:37; Status DC Sodium Chloride 1,000 ml @ 125 mls/hr 1X ONCE IV Last administered on at 10:43; Start 12/21/18 at 09:45; Stop 12/21/18 at 17:44; Status DC Calcium Carbonate/ Glycine (Tums) 500 mg PRN AFTMEALHC PRN PO INDIGESTION Last administered on 01/13/19 03:22; Start 12/21/18 at 12:15; Stop 01/13/19 at 08:50 ; Status DC Lorazepam (Ativan) 1 mg 1X ONCE IV Last administered on 12/21/18at 17:50; Start 12/21/18 at 17:30; Stop 12/21/18 at 17:31; Status DC Albuterol Sulfate (Ventolin Neb Soln) 2.5 mg PRN Q2HRS PRN NEB SHORTNESS OF BREATH Last administered on 01/07/19at 12:45; Start 12/21/18 at 17:30 Nicotine (Nicoderm Cq 14mg) 1 patch PRN DAILY PRN TD SMOKING CESSATION Last administered on 12/26/18at 09:59; Start 12/21/18 at 19:30 Lorazepam (Ativan) 1 mg 1X ONCE IV Last administered on 12/21/18at 23:45; Start 12/21/18 at 23:45; Stop 12/21/18 at 23:46; Status DC Lorazepam (Ativan) 1 mg PRN Q4HRS PRN IV ANXIETY / AGITATION Last administered on 12/22/18 11:15; Start 12/21/18 at 23:30; Stop 12/22/18 at 14:42; Status DC Sodium Chloride 1,000 ml @ 250 mls/hr 1X ONCE IV Last administered on 09:15; Start 12/22/18 at 09:15; Stop 12/22/18 at 13:14; Status DC Lidocaine/Sodium Bicarbonate (Buffered Lidocaine 1%) 3 ml STK-MED ONCE .ROUTE ; Start 12/23/18 at 10:33; Stop 12/23/18 at 10:35; Status DC Lidocaine/Sodium Bicarbonate (Buffered Lidocaine 1%) 3 ml 1X ONCE INJ Last administered on 12/23/18at 11:24; Start 12/23/18 at 11:00; Stop 12/23/18 at 11:10; Status DC Info (Tpn Per Pharmacy) 1 each PRN DAILY PRN MC SEE COMMENTS Last administered on 01/14/19at 11:33; Start 12/23/18 at 14:00 Sodium Chloride 90 meq/Potassium Chloride 50 meq/ Potassium Phosphate 20.4 mmol/ Magnesium Sulfate 18 meq/ Calcium Gluconate 5 meq/ Multivitamins 10 ml/Chromium / Copper/Manganese/ Seleni/Zn 1 ml/ Total Parenteral Nutrition/Amino Acids/ Dextrose/ Fat Emulsion Intravenous 1,512 ml @ 63 mls/hr TPN CONT IV Last administered on 12/23/18at 21:37; Start 12/23/18 at 22:00; Stop 12/24/18 at 21:59; Status DC Alprazolam (Xanax) 0.25 mg PRN BID PRN PO ANXIETY / AGITATION Last administered on 12/25/18at 09:25; Start 12/23/18 at 23:00; Stop 12/25/18 at 17:54; Status DC Lorazepam (Ativan) 1 mg PRN Q4HRS PRN IV ANXIETY / AGITATION Last administered on 12/24/18at 09:21; Start 12/24/18 at 08:45; Stop 12/24/18 at 10:19; Status DC Pantoprazole Sodium (PROTONIX VIAL for IV PUSH) 40 mg DAILYAC IVP Last administered on 01/14/19at 05:56; Start 12/24/18 at 09:30; Stop 01/14/19 at 09:35; Status DC Lorazepam (Ativan) 0.5 mg PRN Q4HRS PRN IV ANXIETY / AGITATION Last administered on 12/25/18at 04:47; Start 12/24/18 at 10:30; Stop 12/25/18 at 10:22; Status DC Sodium Chloride 45 meq/Sodium Acetate 45 meq/ Potassium Chloride 50 meq/ Potassium Phosphate 20.4 mmol/Magnesium Sulfate 18 meq/ Calcium Gluconate 5 meq / Multivitamins 10 ml/Chromium/ Copper/Manganese/ Seleni/Zn 1 ml/ Total Parenteral Nutrition/Amino Acids/Dextrose/ Fat Emuls... 1,512 ml @ 63 mls/hr TPN CONT IV Last administered on 12/24/18at 21:57; Start 12/24/18 at 22:00; Stop 12/25/18 at 21:59; Status DC Phenyleph/Shark Oil/Min Oil/Petrol (Preparation H) 1 ranjith PRN Q4HRS PRN RC RECTAL PAIN; Start 12/24/18 at 12:45; Stop 12/25/18 at 20:20; Status DC Sodium Chloride 45 meq/Sodium Acetate 45 meq/ Potassium Chloride 50 meq/ Potassium Phosphate 20.4 mmol/Magnesium Sulfate 18 meq/ Calcium Gluconate 5 meq / Multivitamins 10 ml/Chromium/ Copper/Manganese/ Seleni/Zn 1 ml/ Total Parenteral Nutrition/Amino Acids/Dextrose/ Fat Emuls... 1,512 ml @ 63 mls/hr TPN CONT IV Last administered on 12/26/18at 00:34; Start 12/25/18 at 22:00; Stop 12/26/18 at 21:59; Status DC Neomycin/ Polymyxin/ Bacitracin (Triple Antibiotic Ointment) 1 pkt PRN TID PRN TP skin around rectum, post op Last administered on 01/13/19at 21:08; Start at 14:30 Alprazolam (Xanax) 0.25 mg PRN Q8HRS PRN PO ANXIETY / AGITATION Last administered on 01/07/19at 13:01; Start 12/25/18 at 18:00; Stop 01/12/19 at 08:54 ; Status DC Morphine Sulfate (Morphine Sulfate) 2 mg PRN Q6HRS PRN IV PAIN Last administered on 12/29/18at 21:47; Start 12/25/18 at 18:00; Stop 12/30/18 at 03:17 ; Status DC Guaifenesin (Mucinex) 600 mg BID PO Last administered on 12/26/18at 21:26; Start 12/26/18 at 11:00; Stop 01/12/19 at 08:54; Status DC Guaifenesin (Mucinex) 600 mg BID PO ; Start 12/26/18 at 11:00; Status UNV Guaifenesin/ Codeine Phosphate (Robitussin Ac) 5 ml PRN Q6HRS PRN PO COUGH Last administered on 12/26/18at 10:41; Start 12/26/18 at 10:30; Stop 01/13/19 at 08:50; Status DC Sodium Acetate 90 meq/Potassium Chloride 50 meq/ Potassium Phosphate 13.6 mmol/ Magnesium Sulfate 18 meq/ Calcium Gluconate 5 meq/ Multivitamins 10 ml/Chromium / Copper/Manganese/ Seleni/Zn 1 ml/ Total Parenteral Nutrition/Amino Acids/ Dextrose/ Fat Emulsion Intravenous 1,512 ml @ 63 mls/hr TPN CONT IV Last administered on 12/26/18at 21:37; Start 12/26/18 at 22:00; Stop 12/28/18 at 01:28 ; Status DC Benzocaine (Hurricaine One) 1 spray 1X ONCE MM ; Start 12/26/18 at 19:15; Stop 12/26/18 at 19:16; Status DC Acetaminophen (Tylenol) 650 mg PRN Q6HRS PRN PO MILD PAIN / TEMP Last administered on 12/27/18at 04:39; Start 12/26/18 at 21:00 Benzocaine (Hurricaine One) 1 spray 1X ONCE MM Last administered on 12/27/18at 09:00; Start 12/27/18 at 09:15; Stop 12/27/18 at 09:16; Status DC Sodium Acetate 90 meq/Potassium Chloride 50 meq/ Potassium Phosphate 13.6 mmol/ Magnesium Sulfate 15 meq/ Calcium Gluconate 5 meq/ Multivitamins 10 ml/Chromium / Copper/Manganese/ Seleni/Zn 1 ml/ Total Parenteral Nutrition/Amino Acids/ Dextrose/ Fat Emulsion Intravenous 1,512 ml @ 63 mls/hr TPN CONT IV ; Start at 22:00; Stop 12/28/18 at 21:59; Status Cancel Sodium Acetate 90 meq/Potassium Chloride 50 meq/ Potassium Phosphate 13.6 mmol/ Magnesium Sulfate 15 meq/ Calcium Gluconate 5 meq/ Multivitamins 10 ml/Chromium / Copper/Manganese/ Seleni/Zn 1 ml/ Total Parenteral Nutrition/Amino Acids/ Dextrose/ Fat Emulsion Intravenous 1,512 ml @ 63 mls/hr TPN CONT IV ; Start at 22:00; Stop 12/28/18 at 21:59; Status DC Lidocaine/Sodium Bicarbonate (Buffered Lidocaine 1%) 3 ml 1X ONCE INJ ; Start 12/28/18 at 09:00; Stop 12/28/18 at 09:01; Status Cancel Benzocaine (Hurricaine One) 1 spray 1X ONCE MM Last administered on 12/28/18at 09:32; Start 12/28/18 at 09:30; Stop 12/28/18 at 09:33; Status DC Sodium Acetate 90 meq/Potassium Chloride 50 meq/ Potassium Phosphate 13.6 mmol/ Magnesium Sulfate 15 meq/ Calcium Gluconate 5 meq/ Multivitamins 10 ml/Chromium / Copper/Manganese/ Seleni/Zn 1 ml/ Total Parenteral Nutrition/Amino Acids/ Dextrose/ Fat Emulsion Intravenous 1,512 ml @ 63 mls/hr TPN CONT IV Last administered on 12/28/18at 22:06; Start 12/28/18 at 22:00; Stop 12/29/18 at 21:59 ; Status DC Iohexol (Omnipaque 300 Mg/ml) 400 ml 1X ONCE PO Last administered on at 08:15; Start 12/29/18 at 06:45; Stop 12/29/18 at 06:46; Status DC Info (CONTRAST GIVEN -- Rx MONITORING) 1 each PRN DAILY PRN MC SEE COMMENTS; Start 12/29/18 at 06:45; Stop 12/31/18 at 06:44; Status DC Iohexol (Omnipaque 300 Mg/ml) 400 ml 1X ONCE PO ; Start 12/29/18 at 07:00; Stop 12/29/18 at 07:03; Status DC Info (CONTRAST GIVEN -- Rx MONITORING) 1 each PRN DAILY PRN MC SEE COMMENTS; Start 12/29/18 at 07:15; Stop 12/31/18 at 07:14; Status DC Meropenem 500 mg/ Sodium Chloride 50 ml @ 100 mls/hr Q6HRS IV Last administered on 01/07/19at 06:05; Start 12/29/18 at 12:00; Stop 01/07/19 at 08:34 ; Status DC Multi-Ingredient Ointment (Analgesic [place]) 1 ranjith PRN QID PRN TP MUSCLE PAIN Last administered on 12/29/18at 14:40; Start 12/29/18 at 13:00 Sodium Acetate 90 meq/Potassium Chloride 50 meq/ Potassium Phosphate 13.6 mmol/ Magnesium Sulfate 15 meq/ Calcium Gluconate 5 meq/ Multivitamins 10 ml/Chromium / Copper/Manganese/ Seleni/Zn 1 ml/ Total Parenteral Nutrition/Amino Acids/ Dextrose/ Fat Emulsion Intravenous 1,512 ml @ 63 mls/hr TPN CONT IV Last administered on 12/29/18at 21:40; Start 12/29/18 at 22:00; Stop 12/30/18 at 21:59 ; Status DC Morphine Sulfate (Morphine Sulfate) 2 mg PRN Q4HRS PRN IV SEVERE PAIN Last administered on 12/30/18at 19:50; Start 12/30/18 at 03:30; Stop 12/30/18 at 21:33 ; Status DC Propofol 20 ml @ As Directed STK-MED ONCE IV ; Start 12/30/18 at 12:51; Stop at 12:52; Status DC Dexamethasone Sodium Phosphate (Decadron) 20 mg STK-MED ONCE .ROUTE ; Start at 12:51; Stop 12/30/18 at 12:52; Status DC Lidocaine HCl (Lidocaine Pf 2% Vial) 5 ml STK-MED ONCE .ROUTE ; Start 12/30/18 at 12:51; Stop 12/30/18 at 12:52; Status DC Ondansetron HCl (Zofran) 4 mg STK-MED ONCE .ROUTE ; Start 12/30/18 at 12:51; Stop 12/30/18 at 12:52; Status DC Rocuronium [place] (Zemuron) 50 mg STK-MED ONCE .ROUTE ; Start 12/30/18 at 12:51 ; Stop 12/30/18 at 12:52; Status DC Succinylcholine Chloride (Anectine) 200 mg STK-MED ONCE .ROUTE ; Start 12/30/18 at 12:51; Stop 12/30/18 at 12:52; Status DC Fentanyl Citrate (Fentanyl 5ml Vial) 250 mcg STK-MED ONCE .ROUTE ; Start at 13:49; Stop 12/30/18 at 13:50; Status DC Sodium Chloride 90 meq/Potassium Chloride 50 meq/ Potassium Phosphate 13.6 mmol/ Magnesium Sulfate 15 meq/ Multivitamins 10 ml/Chromium/ Copper/Manganese/ Seleni /Zn 1 ml/ Total Parenteral Nutrition/Amino Acids/Dextrose/ Fat Emulsion Intravenous 1,512 ml @ 63 mls/hr TPN CONT IV Last administered on 12/30/18at 23:43; Start 12/30/18 at 22:00; Stop 12/31/18 at 21:59; Status DC Vasopressin (Vasostrict) 20 unit STK-MED ONCE .ROUTE ; Start 12/30/18 at 15:00; Stop 12/30/18 at 15:01; Status DC Sodium Chloride (SODIUM CHLORIDE 20ml) 20 ml STK-MED ONCE IJ ; Start 12/30/18 at 15:01; Stop 12/30/18 at 15:02; Status DC Albumin Human 500 ml @ As Directed STK-MED ONCE IV ; Start 12/30/18 at 15:01; Stop 12/30/18 at 15:02; Status DC Glycopyrrolate (Robinul) 1 mg STK-MED ONCE .ROUTE ; Start 12/30/18 at 15:21; Stop 12/30/18 at 15:22; Status DC Neostigmine Methylsulfate (Bloxiverz) 10 mg STK-MED ONCE .ROUTE ; Start at 15:21; Stop 12/30/18 at 15:22; Status DC Albuterol/ Ipratropium (Duoneb) 3 ml STK-MED ONCE .ROUTE ; Start 12/30/18 at 15: 45; Stop 12/30/18 at 15:46; Status DC Fentanyl Citrate (Fentanyl 2ml Vial) 100 mcg STK-MED ONCE .ROUTE ; Start at 16:56; Stop 12/30/18 at 16:57; Status DC Ondansetron HCl (Zofran) 4 mg PRN Q6HRS PRN IV NAUSEA/VOMITING; Start 12/30/18 at 17:15; Stop 12/30/18 at 21:35; Status DC Fentanyl Citrate (Fentanyl 2ml Vial) 25 mcg PRN Q5MIN PRN IV MILD PAIN Last administered on 12/30/18at 17:15; Start 12/30/18 at 17:15; Stop 12/30/18 at 21:35 ; Status DC Fentanyl Citrate (Fentanyl 2ml Vial) 50 mcg PRN Q5MIN PRN IV MODERATE TO SEVERE PAIN Last administered on 12/30/18at 17:57; Start 12/30/18 at 17:15; Stop 12/30/18 at 21:35; Status DC Morphine Sulfate (Morphine Sulfate) 1 mg PRN Q10MIN PRN IV SEVERE PAIN; Start 12/30/18 at 17:15; Stop 12/31/18 at 17:14; Status DC Ringer's Solution 1,000 ml @ 30 mls/hr Q24H IV Last administered on 12/30/18at 18:09; Start 12/30/18 at 17:10; Stop 12/30/18 at 21:33; Status DC Lidocaine HCl (Xylocaine-Mpf 1% 2ml Vial) 2 ml 1X PRN PRN ID IV START; Start at 17:15; Stop 12/30/18 at 21:35; Status DC Hydromorphone HCl (Dilaudid) 0.5 mg PRN Q10MIN PRN IV SEV PAIN, Second choice; Start 12/30/18 at 17:15; Stop 12/30/18 at 21:35; Status DC Prochlorperazine Edisylate (Compazine) 5 mg PACU PRN PRN IV NAUSEA, MRX1; Start 12/30/18 at 17:15; Stop 12/30/18 at 21:35; Status DC Albumin Human 100 ml @ 100 mls/hr 1X ONCE IV Last administered on 12/30/18at 22:00; Start 12/30/18 at 22:00; Stop 12/30/18 at 22:59; Status DC Ringer's Solution 500 ml @ 500 mls/hr 1X ONCE IV Last administered on at 22:00; Start 12/30/18 at 22:00; Stop 12/30/18 at 22:59; Status DC Ringer's Solution 1,000 ml @ 100 mls/hr Q10H IV Last administered on at 00:58; Start 12/30/18 at 23:00; Stop 01/01/19 at 09:30; Status DC Hydromorphone HCl (Dilaudid) 0.5 mg PRN Q2HR PRN IV MODERATE PAIN Last administered on 01/04/19at 10:08; Start 12/30/18 at 21:30; Stop 01/04/19 at 15:05 ; Status DC Hydromorphone HCl (Dilaudid) 1 mg PRN Q2HR PRN IV SEVERE PAIN Last administered on 01/04/19at 04:51; Start 12/30/18 at 21:30; Stop 01/04/19 at 15:05 ; Status DC Insulin Human Lispro (HumaLOG) 0-5 UNITS Q6HRS SQ Last administered on at 06:42; Start 12/31/18 at 00:30; Stop 01/06/19 at 12:47; Status DC Sodium Chloride 90 meq/Potassium Chloride 30 meq/ Potassium Phosphate 13.6 mmol/ Magnesium Sulfate 15 meq/ Calcium Gluconate 5 meq/ Multivitamins 10 ml/Chromium / Copper/Manganese/ Seleni/Zn 1 ml/ Total Parenteral Nutrition/Amino Acids/ Dextrose/ Fat Emulsion Intravenous 1,512 ml @ 63 mls/hr TPN CONT IV Last administered on 12/31/18at 21:58; Start 12/31/18 at 22:00; Stop 01/01/19 at 21:59 ; Status DC Sodium Chloride 90 meq/Potassium Chloride 30 meq/ Potassium Phosphate 13.6 mmol/ Magnesium Sulfate 15 meq/ Calcium Gluconate 5 meq/ Multivitamins 10 ml/Chromium / Copper/Manganese/ Seleni/Zn 1 ml/ Total Parenteral Nutrition/Amino Acids/ Dextrose/ Fat Emulsion Intravenous 1,512 ml @ 63 mls/hr TPN CONT IV Last administered on 01/01/19at 21:09; Start 01/01/19 at 22:00; Stop 01/02/19 at 21:59 ; Status DC Vancomycin HCl (Vanco Per Pharmacy) 1 each PRN DAILY PRN MC SEE COMMENTS Last administered on 01/03/19at 10:18; Start 01/01/19 at 11:15; Stop 01/03/19 at 11:23 ; Status DC Vancomycin HCl 2 gm/Sodium Chloride 500 ml @ 250 mls/hr ONCE ONCE IV Last administered on 01/01/19at 12:28; Start 01/01/19 at 12:00; Stop 01/01/19 at 13:59 ; Status DC Vancomycin HCl 1.25 gm/Sodium Chloride 250 ml @ 166.667 mls/hr Q24H IV ; Start 01/01/19 at 12:00; Status Cancel Vancomycin HCl (Vancomycin Trough Level) 1 each 1X ONCE MC ; Start 01/03/19 at 11:30; Stop 01/03/19 at 11:31; Status Cancel Vancomycin HCl 1.25 gm/Sodium Chloride 250 ml @ 166.667 mls/hr Q24H IV Last administered on 01/02/19at 13:04; Start 01/02/19 at 12:00; Stop 01/03/19 at 11:23 ; Status DC Albuterol/ Ipratropium (Duoneb) 3 ml 1X ONCE NEB Last administered on at 08:19; Start 01/02/19 at 07:30; Stop 01/02/19 at 07:31; Status DC Albuterol/ Ipratropium (Duoneb) 3 ml Q4HRS NEB Last administered on 01/14/19at 11 :36; Start 01/02/19 at 12:00 Furosemide (Lasix) 20 mg 1X ONCE IVP Last administered on 01/02/19at 07:36; Start 01/02/19 at 07:30; Stop 01/02/19 at 07:31; Status DC Sodium Chloride 90 meq/Potassium Chloride 30 meq/ Potassium Phosphate 13.6 mmol/ Magnesium Sulfate 15 meq/ Calcium Gluconate 5 meq/ Multivitamins 10 ml/Chromium / Copper/Manganese/ Seleni/Zn 1 ml/ Total Parenteral Nutrition/Amino Acids/ Dextrose/ Fat Emulsion Intravenous 1,512 ml @ 63 mls/hr TPN CONT IV Last administered on 01/02/19at 21:20; Start 01/02/19 at 22:00; Stop 01/03/19 at 21:59 ; Status DC Sodium Chloride 90 meq/Potassium Chloride 30 meq/ Potassium Phosphate 13.6 mmol/ Magnesium Sulfate 15 meq/ Multivitamins 10 ml/Chromium/ Copper/Manganese/ Seleni /Zn 1 ml/ Insulin Human Regular 10 unit/ Total Parenteral Nutrition/Amino Acids/ Dextrose/ Fat Emulsion Intravenous 1,512 ml @ 63 mls/hr TPN CONT IV Last administered on 01/03/19at 22:07; Start 01/03/19 at 22:00; Stop 01/04/19 at 21:59 ; Status DC Sodium Chloride 90 meq/Potassium Chloride 30 meq/ Potassium Phosphate 13.6 mmol/ Magnesium Sulfate 15 meq/ Multivitamins 10 ml/Chromium/ Copper/Manganese/ Seleni /Zn 1 ml/ Insulin Human Regular 10 unit/ Total Parenteral Nutrition/Amino Acids/ Dextrose/ Fat Emulsion Intravenous 1,512 ml @ 63 mls/hr TPN CONT IV Last administered on 01/04/19at 22:11; Start 01/04/19 at 22:00; Stop 01/05/19 at 21:59 ; Status DC Hydromorphone HCl (Dilaudid) 0.5 mg PRN Q6HRS PRN IV MODERATE PAIN Last administered on 01/14/19at 02:10; Start 01/04/19 at 15:15 Hydromorphone HCl (Dilaudid) 1 mg PRN Q6HRS PRN IV SEVERE PAIN Last administered on 01/05/19at 02:18; Start 01/04/19 at 15:15; Stop 01/12/19 at 08:54 ; Status DC Dextrose (Dextrose 50%-Water Syringe) 25 gm STK-MED ONCE IV ; Start 01/04/19 at 08:50; Stop 01/05/19 at 08:26; Status DC Sodium Chloride 90 meq/Potassium Chloride 30 meq/ Potassium Phosphate 13.6 mmol/ Magnesium Sulfate 15 meq/ Multivitamins 10 ml/Chromium/ Copper/Manganese/ Seleni /Zn 1 ml/ Insulin Human Regular 10 unit/ Total Parenteral Nutrition/Amino Acids/ Dextrose/ Fat Emulsion Intravenous 1,512 ml @ 63 mls/hr TPN CONT IV Last administered on 01/05/19at 21:52; Start 01/05/19 at 22:00; Stop 01/06/19 at 21:59 ; Status DC Budesonide (Pulmicort) 0.5 mg RTBID NEB Last administered on 01/14/19at 07:30; Start 01/05/19 at 12:00 Insulin Glargine (Lantus) 12 units DAILY10 SQ Last administered on 01/09/19at 09 :36; Start 01/06/19 at 13:30; Stop 01/09/19 at 12:16; Status DC Sodium Chloride 40 meq/Potassium Chloride 30 meq/ Potassium Phosphate 13.6 mmol/ Magnesium Sulfate 15 meq/ Multivitamins 10 ml/Chromium/ Copper/Manganese/ Seleni /Zn 1 ml/ Insulin Human Regular 10 unit/ Total Parenteral Nutrition/Amino Acids/ Dextrose/ Fat Emulsion Intravenous 1,512 ml @ 63 mls/hr TPN CONT IV Last administered on 01/07/19at 00:36; Start 01/06/19 at 22:00; Stop 01/07/19 at 21:59 ; Status DC Insulin Human Lispro (HumaLOG) 12 units 1X ONCE SQ Last administered on at 14:18; Start 01/06/19 at 13:00; Stop 01/06/19 at 13:01; Status DC Insulin Human Lispro (HumaLOG) 0-9 UNITS Q6HRS SQ Last administered on at 12:19; Start 01/06/19 at 18:00 Insulin Human Lispro (HumaLOG) 3 units 1X ONCE SQ Last administered on at 00:33; Start 01/07/19 at 00:30; Stop 01/07/19 at 00:31; Status DC Insulin Human Lispro (HumaLOG) 20 units 1X ONCE SQ Last administered on at 12:22; Start 01/07/19 at 12:15; Stop 01/07/19 at 12:16; Status DC Insulin Human Lispro (HumaLOG) 10 units TIDAC SQ Last administered on at 09:19; Start 01/07/19 at 16:30 Sodium Chloride 40 meq/Potassium Chloride 30 meq/ Potassium Phosphate 13.6 mmol/ Magnesium Sulfate 15 meq/ Multivitamins 10 ml/Chromium/ Copper/Manganese/ Seleni /Zn 1 ml/ Insulin Human Regular 10 unit/ Total Parenteral Nutrition/Amino Acids/ Dextrose/ Fat Emulsion Intravenous 1,512 ml @ 63 mls/hr TPN CONT IV Last administered on 01/07/19at 21:45; Start 01/07/19 at 22:00; Stop 01/08/19 at 21:59 ; Status DC Insulin Human Lispro (HumaLOG) 10 units 1X ONCE SQ Last administered on at 14:19; Start 01/07/19 at 14:00; Stop 01/07/19 at 14:01; Status DC Benzocaine (Hurricaine One) 1 spray 1X ONCE MM Last administered on 01/08/19at 09:44; Start 01/08/19 at 09:30; Stop 01/08/19 at 09:31; Status DC Lorazepam (Ativan) 0.5 mg PRN Q4HRS PRN IV ANXIETY / AGITATION Last administered on 01/13/19at 15:09; Start 01/08/19 at 10:45 Sodium Chloride 40 meq/Potassium Chloride 30 meq/ Potassium Phosphate 10 mmol/ Magnesium Sulfate 15 meq/ Multivitamins 10 ml/Chromium/ Copper/Manganese/ Seleni /Zn 1 ml/ Insulin Human Regular 10 unit/ Total Parenteral Nutrition/Amino Acids/ Dextrose/ Fat Emulsion Intravenous 1,512 ml @ 63 mls/hr TPN CONT IV Last administered on 01/08/19at 22:00; Start 01/08/19 at 22:00; Stop 01/09/19 at 21:59 ; Status DC Saliva Substitute (Biotene Moisturizing Mouth) 2 spray PRN Q15MIN PRN PO DRY MOUTH Last administered on 01/08/19at 14:55; Start 01/08/19 at 14:45 Insulin Glargine (Lantus) 18 units DAILY10 SQ Last administered on 01/14/19at 10: 51; Start 01/10/19 at 10:00 Sodium Chloride 40 meq/Potassium Chloride 30 meq/ Potassium Phosphate 10 mmol/ Magnesium Sulfate 15 meq/ Multivitamins 10 ml/Chromium/ Copper/Manganese/ Seleni /Zn 1 ml/ Insulin Human Regular 10 unit/ Total Parenteral Nutrition/Amino Acids/ Dextrose/ Fat Emulsion Intravenous 1,512 ml @ 63 mls/hr TPN CONT IV Last administered on 01/09/19at 22:22; Start 01/09/19 at 22:00; Stop 01/10/19 at 21:59 ; Status DC Duloxetine HCl (Cymbalta) 60 mg DAILY PO ; Start 01/11/19 at 09:00; Stop at 08:54; Status DC Memantine (Namenda) 10 mg DAILY PO ; Start 01/11/19 at 09:00; Stop 01/12/19 at 08:54; Status DC Sodium Chloride 40 meq/Potassium Acetate 50 meq/ Potassium Phosphate 10 mmol/ Magnesium Sulfate 18 meq/ Multivitamins 10 ml/Chromium/ Copper/Manganese/ Seleni /Zn 1 ml/ Insulin Human Regular 10 unit/ Total Parenteral Nutrition/Amino Acids/ Dextrose/ Fat Emulsion Intravenous 1,512 ml @ 63 mls/hr TPN CONT IV Last administered on 01/10/19at 22:18; Start 01/10/19 at 22:00; Stop 01/11/19 at 21:59 ; Status DC Sodium Chloride 40 meq/Potassium Acetate 50 meq/ Potassium Phosphate 10 mmol/ Magnesium Sulfate 18 meq/ Multivitamins 10 ml/Chromium/ Copper/Manganese/ Seleni /Zn 1 ml/ Insulin Human Regular 10 unit/ Total Parenteral Nutrition/Amino Acids/ Dextrose/ Fat Emulsion Intravenous 1,512 ml @ 63 mls/hr TPN CONT IV Last administered on 01/11/19at 22:05; Start 01/11/19 at 22:00; Stop 01/12/19 at 21:59 ; Status DC Sodium Chloride 40 meq/Potassium Acetate 50 meq/ Potassium Phosphate 10 mmol/ Magnesium Sulfate 18 meq/ Multivitamins 10 ml/Chromium/ Copper/Manganese/ Seleni /Zn 1 ml/ Insulin Human Regular 10 unit/ Total Parenteral Nutrition/Amino Acids/ Dextrose/ Fat Emulsion Intravenous 1,512 ml @ 63 mls/hr TPN CONT IV Last administered on 01/12/19at 22:07; Start 01/12/19 at 22:00; Stop 01/13/19 at 21:59 ; Status DC Vitamin A/Vitamin D (Vitamin A & D Ointment) 1 ranjith PRN Q1HR PRN TP SKIN PROTECTION Last administered on 01/13/19at 21:08; Start 01/12/19 at 15:30 Bisacodyl (Dulcolax Supp) 10 mg PRN DAILY PRN [place] CONSTIPATION 1ST CHOICE; Start 01/13/19 at 03:15 Magnesium Sulfate/ Dextrose 100 ml @ 100 mls/hr 1X ONCE IV Last administered on 01/13/19at 10:07; Start 01/13/19 at 09:30; Stop 01/13/19 at 10:29; Status DC Sodium Chloride 40 meq/Potassium Acetate 50 meq/ Potassium Phosphate 10 mmol/ Magnesium Sulfate 22 meq/ Multivitamins 10 ml/Chromium/ Copper/Manganese/ Seleni /Zn 1 ml/ Insulin Human Regular 10 unit/ Total Parenteral Nutrition/Amino Acids/ Dextrose/ Fat Emulsion Intravenous 1,512 ml @ 63 mls/hr TPN CONT IV Last administered on 01/13/19at 21:55; Start 01/13/19 at 22:00; Stop 01/14/19 at 21:59 Hydrocortisone Acetate (Anucort-Hc) 25 mg PRN QID PRN [place] RECTAL PAIN; Start at 14:00 Pantoprazole Sodium (Protonix) 40 mg DAILYAC PO ; Start 01/15/19 at 07:30 Sodium Chloride 40 meq/Potassium Acetate 50 meq/ Potassium Phosphate 10 mmol/ Magnesium Sulfate 22 meq/ Multivitamins 10 ml/Chromium/ Copper/Manganese/ Seleni /Zn 1 ml/ Insulin Human Regular 10 unit/ Total Parenteral Nutrition/Amino Acids/ Dextrose/ Fat Emulsion Intravenous 1,512 ml @ 63 mls/hr TPN CONT IV ; Start at 22:00; Stop 01/15/19 at 21:59 Active Scripts Active Chlorhexidine Gluconate 473 Ml Mouthwash 473 Ml MM BID 7 Days Vitamin C (Ascorbate Calcium) 500 Mg Tablet 500 Mg PO DAILY 30 Days Slow Release Iron (Ferrous Sulfate) 250 Mg Tablet.er 250 Mg PO DAILY 30 Days Protonix (Pantoprazole Sodium) 40 Mg Granpkt.dr 40 Mg PO DAILY 30 Days Reported Alprazolam 0.25 Mg Tablet 0.25 Mg PO DAILY Metformin Hcl Er (Metformin Hcl) 500 Mg Tab.er.24h 1 Tab PO DAILY Namenda (Memantine Hcl) 10 Mg Tablet 1 Tab PO BID Losartan Potassium 100 Mg Tablet 100 Mg PO DAILY Spironolactone 25 Mg Tablet 1 Tab PO DAILY Ventolin Hfa Inhaler (Albuterol Sulfate) 18 Gm Hfa.aer.ad 2 Puff INH Q4HRS Cymbalta (Duloxetine Hcl) 20 Mg Capsule.dr 90 Mg PO DAILY Requip (Ropinirole Hcl) 1 Mg Tablet 3 Mg PO DAILY Amlodipine Besylate 10 Mg Tablet 10 Mg PO DAILY Vitals/I & O Vital Sign - Last 24 Hours 01/13/19 01/13/19 01/13/19 01/13/19 14:36 15:57 18:29 19:00 Temp 97.6 98.3 97.6 98.3 Pulse 78 87 Resp 20 18 B/P (MAP) 124/77 (93) 144/80 (101) Pulse Ox 100 97 100 O2 Delivery Room Air Nasal Cannula Nasal Cannula Nasal Cannula O2 Flow Rate 3.0 3.0 3.0 2.0 01/13/19 01/13/19 01/13/19 01/13/19 20:00 20:14 20:15 23:00 Temp 98.4 98.4 Pulse 86 Resp 18 B/P (MAP) 150/82 (104) Pulse Ox 96 O2 Delivery Nasal Cannula Nasal Cannula Nasal Cannula Nasal Cannula O2 Flow Rate 3.0 3.0 3.0 2.0 01/13/19 01/14/19 01/14/19 01/14/19 23:30 02:10 02:40 03:00 Temp 98.6 98.6 Pulse 78 Resp 20 20 18 B/P (MAP) 135/77 (96) Pulse Ox 97 97 97 98 O2 Delivery Nasal Cannula Nasal Cannula Nasal Cannula Nasal Cannula O2 Flow Rate 3.0 3.0 3.0 2.0 01/14/19 01/14/19 01/14/19 01/14/19 03:40 07:00 07:31 07:32 Temp 98.1 98.1 Pulse 85 Resp 16 B/P (MAP) 137/74 (95) Pulse Ox 98 94 100 100 O2 Delivery Nasal Cannula Nasal Cannula Nasal Cannula Nasal Cannula O2 Flow Rate 3.0 3.0 3.0 3.0 01/14/19 01/14/19 11:00 11:38 Temp 97.8 97.8 Pulse 86 Resp 18 B/P (MAP) 105/75 (85) Pulse Ox 96 96 O2 Delivery Room Air Nasal Cannula O2 Flow Rate 3.0 Intake and Output 01/13/19 01/13/19 01/14/19 15:00 23:00 07:00 Intake Total 460 ml 550 ml 100 ml Balance 460 ml 550 ml 100 ml RADAMES MÉNDEZ MD Jan 14, 2019 12:53
[2019-01-14 15:00] VITALS: BP 141/67
--- NOTE | 2019-01-14 16:30 | NUR ---
SW following. Pt has been accepted clinically at [facility], pending insurance approval. Pt possibly being tapered off TPN over the weekend. Looking for discharge Thursday01/17/19. Dr. Chandler also wanting a calorie coutn. RN notified. SW will continue to follow.
[2019-01-14 19:00] VITALS: BP 133/72
--- NOTE | 2019-01-14 21:20 | NUR ---
Pt's daughter Bessy called to receive a patient update status. RN advised patient is currently resting quietly. Advised this RN is currently working on getting all patient's home meds restarted since patient is taking PO. Dgtr advised she visited SNU facility and was satisfied with placing patient there, plans to DC on Thursday pending patient status. Will continue to monitor closely.
[2019-01-14] MEDS: rOPINIRole 1 MG TABLET. PO SCH (21:52)
[2019-01-14] MEDS: HYDROcodone/APAP 5/325MG 1 TAB TABLET PO PRN (21:52)
[2019-01-14] MEDS: ALPRAZolam 0.25 MG TABLET PO PRN (21:52)
[2019-01-14] MEDS ORDERED: DEXTROSE 70% IV SCH ×10 (22:00)
[2019-01-14] MEDS ORDERED: TOTAL PARENTERAL NUTRITION IV SCH ×10 (22:00)
[2019-01-14] MEDS ORDERED: AMINO ACID IV SCH ×10 (22:00)
[2019-01-14] MEDS ORDERED: [UNRECOGNIZED DRUG - OTHER] IV SCH ×10 (22:00)
[2019-01-14 23:00] VITALS: BP 120/68
[2019-01-15] MEDS: INSULIN LISPRO 300 UNITS/3 ML INSULN.PEN. SQ SCH ×7 (00:30→17:53)
[2019-01-15] MEDS: HYDROcodone/APAP 5/325MG 1 TAB TABLET PO PRN ×3 (02:43→21:07)
--- NOTE | 2019-01-15 02:51 | NUR ---
Patient shouting 'Help' from room. When entering the room, RN found patient diaphoretic, tachypnic. RR 36, NC 3L O2 currently on. Patient coughing, and unable to catch breath. Pt asked for anxiety medication, but RN advised it was not time for another dose. RN offered pain medication, Elevated HOB, Removed blankets, encouraged deep breaths. Will continue to monitor closely.
[2019-01-15 03:00] VITALS: BP 129/80
[2019-01-15] MEDS: IPRATRPIUM/ALBUTEROL 0.5/2.5MG 3 ML NEBU. NEB SCH ×7 (03:31→22:34)
[2019-01-15] MEDS: ALPRAZolam 0.25 MG TABLET PO PRN ×2 (06:42→21:07)
[2019-01-15] MEDS: PANTOPRAZOLE 40 MG TABLET.DR. PO SCH (06:42)
[2019-01-15 07:00] VITALS: BP 142/75
[2019-01-15] MEDS: BUDESONIDE 0.5 MG/2 ML NEBU. NEB SCH ×2 (07:21→19:19)
[2019-01-15] MEDS: DULoxetine HCL 30 MG CAPSULE.DR PO SCH (08:42)
[2019-01-15] MEDS: amLODIPine BESYLATE 10 MG TABLET PO SCH (08:43)
[2019-01-15] MEDS: MEMANTINE 10 MG TABLET. PO SCH (08:44)
[2019-01-15] MEDS: FERROUS SULFATE 325 MG TABLET. PO SCH (08:44)
[2019-01-15] MEDS: DOCUSATE SODIUM 100 MG CAPSULE. PO SCH (08:45)
[2019-01-15] MEDS: CHLORHEXIDINE 0.12% 15 ML MOUTHWASH. MM SCH ×2 (08:45→21:06)
[2019-01-15] MEDS: NEOMY/BACITR/POLYMYXIN OINT PACKET. TP PRN (08:45)
[2019-01-15] MEDS: BENZOCAINE/MENTHOL LOZENGE. PO PRN (08:45)
[2019-01-15] MEDS: ASCORBIC ACID 500 MG TABLET PO SCH (08:45)
[2019-01-15] MEDS: METHYL SALICYLATE/MENTHOL TOPICAL OINTMENT 29GM TUBE. TP PRN (08:48)
[2019-01-15] MEDS: ENOXAPARIN 40 MG/0.4 ML SYRINGE. SQ SCH (08:48)
[2019-01-15] MEDS: VITS A & D/LANOLIN TOPICAL OINTMENT 56GM TUBE. TP PRN (08:48)
[2019-01-15] MEDS: SPIRONOLACTONE 25 MG TABLET PO SCH (08:54)
[2019-01-15] MEDS: INSULIN GLARGINE 300 UNITS/3 ML INSULN.PEN. SQ SCH (09:06)
--- NOTE | 2019-01-15 09:27 | PDOC ---
ABRAHAM WEBER STRAWHAT INSPECTOR AND PACKER 01/15/19 0927: SURGICAL PROGRESS NOTE Subjective tolerating diet having stools no significant pain Vital Signs Vital Signs Date Time Temp Pulse Resp B/P (MAP) Pulse Ox O2 Delivery O2 Flow Rate FiO2 01/15/19 08:43 73 142/75 01/15/19 07:42 16 98 Nasal Cannula 3.0 01/15/19 07:00 98.1 98.1 I&O Intake and Output 01/15/19 06:59 Intake Total 737 ml Balance 737 ml Intake Oral 270 ml IV Total 467 ml # Voids 2 # Bowel Movements 7 General: Alert, Oriented X3, Cooperative, No acute distress Abdomen: Soft, Other (incision intact, NTTP) Labs Laboratory Tests Test 01/13/19 11:41 01/13/19 17:32 01/13/19 23:52 01/14/19 02:30 Glucose (Fingerstick) 178 mg/dL (70-99) 107 mg/dL (70-99) 124 mg/dL (70-99) Clostridium difficile Toxin B Gene Negative (Negative) Test 01/14/19 06:00 01/14/19 06:20 01/14/19 11:59 01/15/19 00:26 Hemoglobin 7.4 g/dL (12.0-15.5) Hematocrit 23.4 % (36.0-47.0) Mean Corpuscular Hemoglobin Concent 32 g/dL (31-37) Magnesium Level 1.8 mg/dL (1.8-2.4) Glucose (Fingerstick) 142 mg/dL (70-99) 165 mg/dL (70-99) 132 mg/dL (70-99) Test 01/15/19 06:12 Glucose (Fingerstick) 144 mg/dL (70-99) Laboratory Tests Test 01/14/19 11:59 01/15/19 00:26 01/15/19 06:12 Glucose (Fingerstick) 165 mg/dL (70-99) 132 mg/dL (70-99) 144 mg/dL (70-99) Problem List advance diet ELIZABETH BUTCHER MD 01/16/19 1227: SURGICAL PROGRESS NOTE Assessment/Plan Agree with above ABRAHAM WEBER APRN Jan 15, 2019 09:27 ELIZABETH BUTCHER MD Jan 16, 2019 12:27
[2019-01-15] MEDS: CALCIUM CARBONATE 500 MG TAB.CHEW PO PRN (09:51)
[2019-01-15] MEDS ORDERED: Pantoprazole PO (10:06)
[2019-01-15] MEDS ORDERED: IPRA3AMP29 NEB (10:06)
[2019-01-15] MEDS ORDERED: INSU100I13 SQ (10:06)
[2019-01-15] MEDS ORDERED: BUDE10.22 IH (10:06)
[2019-01-15] MEDS ORDERED: DULO30CA2 PO (10:06)
[2019-01-15] MEDS ORDERED: BISACODYL PR (10:06)
[2019-01-15] MEDS ORDERED: DOCU-109 PO (10:06)
[2019-01-15] MEDS ORDERED: ALPR0.254 PO (10:06)
[2019-01-15] MEDS ORDERED: INSU100I11 SQ (10:06)
--- NOTE | 2019-01-15 10:08 | DISCH ---
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 and hemorrhoidectomy 12/30 Anemia, colonic Avms, Acute hypoxic respiratory failure, improved by discharge post op malnutrition Acuet renal failure, vasomotor nephropathy COPD Sepsis/Leukopenia ileus, post o weakness and debility cognitive decline Dm2, hypomagnesemia, CONDITION ON DISCHARGE: Stable CODE STATUS: Code Status: Full HALF-WAY: SNF STAY <30 DAYS: Yes HOSPICE: HOSPICE: No POST DISCHARGE ORDERS: ACTIVITY ORDERS: Activity as tolerated WEIGHT BEARING STATUS: As tolerated WOUND/INCISION CARE: No wound care needed CHECKS AFTER DISCHARGE: CHECKS AFTER DISCHARGE: Check blood press - daily, Check blood sugar, ac/hs FOLLOW-UP: PHYSICIAN FOLLOW-UP: 1 week ADDITIONAL FOLLOW-UP: may stop TPN if PO intake >50% LAB ORDERS FOR FOLLOW-UP: chem 12, cbc < 1 week TREATMENT/EQUIPMENT ORDERS: ADAPTIVE EQUIPMENT NEEDED: None RESPIRATORY EQUIPMENT NEEDED: Oxygen Physical Therapy For: Evalulation/Treatment Occupational Therapy For: Evaluation/Treatment DISCHARGE MEDICATIONS: Home Meds Active Scripts Budesonide/Formoterol Fumarate (SYMBICORT 80-4.5 MCG INHALER) 10.2 Gm Hfa.aer.ad , 1 PUFF IH BID for COPD, #10.2 GM 5 Refills Prov:RADAMES MNÉDEZ MD 01/15/19 Ipratropium/Albuterol Sulfate (DUONEB 0.5-3(2.5) MG/3 ML) 3 Ml Ampul.neb, 3 ML NEB BID for COPD, #60 EACH Prov:RADAMES MÉNDEZ MD 01/15/19 [Bisacodyl Supp] 10 MG SUPP.RECT No Conflict Check, 10 MG MD PRN DAILY PRN for CONSTIPATION 1ST CHOICE, #10 SUPP.RECT Prov:RADAMES MÉNDEZ MD 01/15/19 Docusate Sodium (COLACE) 100 Mg Capsule, 100 MG PO DAILY for stool softener, # 90 CAP Prov:RADAMES MÉNDEZ MD 01/15/19 Insulin Lispro (HUMALOG) 100 Unit/1 Ml Insuln.pen, 10 UNITS SQ TIDAC for diabetes for 30 Days, EACH Prov:RADAMES MÉNDEZ MD 01/15/19 Insulin Glargine,Hum.rec.anlog (LANTUS SOLOSTAR) 100 Unit/1 Ml Insuln.pen, 18 UNITS SQ DAILY10 for diabetes for 30 Days, EACH Prov:RADAMES MÉNDEZ MD 01/15/19 [Pantoprazole] 40 MG TABLET. No Conflict Check, 40 MG PO DAILYAC for stomach, #30 Prov:RADAMES MÉNEDZ MD 01/15/19 Alprazolam (ALPRAZOLAM) 0.25 Mg Tablet, 0.25 MG PO PRN Q8HRS PRN for ANXIETY / AGITATION, #30 TAB Prov:RADAMES MÉNDEZ MD 01/15/19 Duloxetine Hcl (CYMBALTA) 30 Mg Capsule., 60 MG PO DAILY for pain, mood, #30 CAP Prov:RADAMES MÉNDEZ MD 01/15/19 Chlorhexidine Gluconate (CHLORHEXIDINE GLUCONATE) 473 Ml Mouthwash, 473 ML MM BID for 7 Days, #1 MISC Prov:OLYA MORE ELEVATOR OPERATOR 12/10/18 Ascorbate Calcium (VITAMIN C) 500 Mg Tablet, 500 MG PO DAILY for with iron for 30 Days, #30 TAB 2 Refills Prov:FLORY NEAL MD 11/22/18 Ferrous Sulfate (Slow Release Iron) 250 Mg Tablet.er, 250 MG PO DAILY for GI bleed for 30 Days, #30 TAB.SR 2 Refills Prov:FLORY NEAL MD 11/22/18 Pantoprazole Sodium (PROTONIX) 40 Mg Granpkt., 40 MG PO DAILY for GI BLEEDING for 30 Days, #30 TAB 2 Refills Prov:FLORY NEAL MD 11/22/18 Reported Medications Metformin Hcl (METFORMIN HCL ER) 500 Mg Tab.er.24h, 1 TAB PO DAILY, #90 TAB 3 Refills 11/12/16 Memantine Hcl (NAMENDA) 10 Mg Tablet, 1 TAB PO BID, #180 TAB 1 Refill 11/12/16 Losartan Potassium (LOSARTAN POTASSIUM) 100 Mg Tablet, 100 MG PO DAILY, TAB 11/12/16 Spironolactone (SPIRONOLACTONE) 25 Mg Tablet, 1 TAB PO DAILY, #90 TAB 1 Refill 11/12/16 Albuterol Sulfate (VENTOLIN HFA INHALER) 18 Gm Hfa.aer.ad, 2 PUFF INH Q4HRS for FOR ASTHMA, INHALER 0 Refills 11/11/16 Ropinirole Hcl (REQUIP) 1 Mg Tablet, 3 MG PO DAILY, TAB 01/27/16 Amlodipine Besylate (AMLODIPINE BESYLATE) 10 Mg Tablet, 10 MG PO DAILY, TAB 01/27/16 Discontinued Reported Medications Alprazolam (ALPRAZOLAM) 0.25 Mg Tablet, 0.25 MG PO DAILY for ANXIETY 12/23/18 Duloxetine Hcl (CYMBALTA) 20 Mg Capsule.dr, 90 MG PO DAILY, CAP 01/27/16 RADAMES MÉNDEZ MD Jan 15, 2019 10:08
--- NOTE | 2019-01-15 10:12 | PDOC3 ---
Discharge Summary Visit Information Date of Admission: Dec 14, 2018 Date of Discharge: Jan 15, 2019 Admitting Diagnosis: acute abd pain Final Diagnosis . Cecal ulceration - s/p X LAP - rt colon resection and hemorrhoidectomy 12/17 and again 12/30 Anemia, colonic Avms, Acute hypoxic respiratory failure, improved by discharge, was multifactorial post op malnutrition Acuet renal failure, vasomotor nephropathy COPD, with bronchitis here and acute hypoxia Sepsis/Leukopenia ileus, post o weakness and debility cognitive decline Dm2, hypomagnesemia, Brief Hospital Course Allergies Allergies Coded Allergies Type Severity Reaction Last Updated Verified Penicillins Allergy Intermediate 12/16/18 Yes Vital Signs Vital Signs Date Time Temp Pulse Resp B/P (MAP) Pulse Ox O2 Delivery O2 Flow Rate FiO2 01/15/19 08:43 73 142/75 01/15/19 07:42 16 98 Nasal Cannula 3.0 01/15/19 07:00 98.1 98.1 Lab Results Laboratory Tests Test 01/13/19 11:41 01/13/19 17:32 01/13/19 23:52 01/14/19 02:30 Glucose (Fingerstick) 178 mg/dL (70-99) 107 mg/dL (70-99) 124 mg/dL (70-99) Clostridium difficile Toxin B Gene Negative (Negative) Test 01/14/19 06:00 01/14/19 06:20 01/14/19 11:59 01/15/19 00:26 Hemoglobin 7.4 g/dL (12.0-15.5) Hematocrit 23.4 % (36.0-47.0) Mean Corpuscular Hemoglobin Concent 32 g/dL (31-37) Magnesium Level 1.8 mg/dL (1.8-2.4) Glucose (Fingerstick) 142 mg/dL (70-99) 165 mg/dL (70-99) 132 mg/dL (70-99) Test 01/15/19 06:12 Glucose (Fingerstick) 144 mg/dL (70-99) Laboratory Tests Test 01/14/19 11:59 01/15/19 00:26 01/15/19 06:12 Glucose (Fingerstick) 165 mg/dL (70-99) 132 mg/dL (70-99) 144 mg/dL (70-99) Brief Hospital Course Ms. Mccray is a 73 -[place] female with history of COPD, who came in with a GI bleed. The patient had workup done including colonoscopy and found to have bleeding ulcer in the colon. The patient underwent a right hemicolectomy on 12/17/2018. Then white cound went up, hypoxia, treated for poss infection, ID consult, PULM consult, returned to OR 11/29 for Small bowel obstruction at previous anastomotic site Dr. Montoya Exploratory laparotomy with extended right hemicolectomy and primary anastomosis then poor PO intake, malnutrition, req. TPN, then ileus, weakness, confusion , hypoxia, complicated hospital course, but better at [facility], PUlM, ID, surg consult following to SNU Discharge Information Condition at Discharge: Improved, Stable Follow Up: Weeks Disposition/Orders: D/C to Another Facility ([facility]) Scheduled Albuterol Sulfate (Ventolin Hfa Inhaler) 18 Gm Hfa.aer.ad, 2 PUFF INH Q4HRS for FOR ASTHMA, Ref 0 (Reported) Entered as Reported by: CHARLENE DEL CASTILLO on 11/11/16 1711 Last Action: Converted on 12/14/181611 by DAYLIN MILLER MD Amlodipine Besylate (Amlodipine Besylate) 10 Mg Tablet, 10 MG PO DAILY, ( Reported) Entered as Reported by: PITA GARG on 01/27/16 0455 Last Action: Continued on 12/14/181611 by DAYLIN MILLER MD Ascorbate Calcium (Vitamin C) 500 Mg Tablet, 500 MG PO DAILY for with iron for 30 Days, #30 Ref 2 Prescribed by: FLORY NEAL MD on 11/22/18 1613 Last Action: Converted on 12/14/181611 by DAYLIN MILLER MD Budesonide/Formoterol Fumarate (Symbicort 80-4.5 Mcg Inhaler) 10.2 Gm Hfa.aer.ad , 1 PUFF IH BID for COPD, #10.2 Ref 5 Prescribed by: RADAMES MÉNDEZ on 01/15/19 1006 Chlorhexidine Gluconate (Chlorhexidine Gluconate) 473 Ml Mouthwash, 473 ML MM BID for 7 Days, #1 Prescribed by: OLYA MORE APRN on 12/10/182221 Last Action: Continued on 12/14/181611 by DAYLIN MILLER MD Docusate Sodium (Colace) 100 Mg Capsule, 100 MG PO DAILY for stool softener, #90 Prescribed by: RADAMES MÉNDEZ on 01/15/19 1006 Duloxetine Hcl (Cymbalta) 30 Mg Capsule.dr, 60 MG PO DAILY for pain, mood, #30 Prescribed by: RADAMES MÉNDEZ on 01/15/19 1006 Ferrous Sulfate (Slow Release Iron) 250 Mg Tablet.er, 250 MG PO DAILY for GI bleed for 30 Days, #30 Ref 2 Prescribed by: FLORY NEAL MD on 11/22/181612 Last Action: Converted on 12/14/181611 by DAYLIN MILLER MD Insulin Glargine,Hum.rec.anlog (Lantus Solostar) 100 Unit/1 Ml Insuln.pen, 18 UNITS SQ DAILY10 for diabetes for 30 Days Prescribed by: RADAMES MÉNDEZ on 01/15/19 1006 Insulin Lispro (Humalog) 100 Unit/1 Ml Insuln.pen, 10 UNITS SQ TIDAC for diabetes for 30 Days Prescribed by: RADAMES MÉNDEZ on 01/15/19 1006 Ipratropium/Albuterol Sulfate (Duoneb 0.5-3(2.5) Mg/3 Ml) 3 Ml Ampul.neb, 3 ML NEB BID for COPD, #60 Prescribed by: RADAMES MÉNDEZ on 01/15/19 1006 Losartan Potassium (Losartan Potassium) 100 Mg Tablet, 100 MG PO DAILY, ( Reported) Entered as Reported by: CHARLENE DEL CASTILLO on 11/12/161834 Last Action: Converted on 12/14/181611 by DAYLIN MILLER MD Memantine Hcl (Namenda) 10 Mg Tablet, 1 TAB PO BID, #180 Ref 1 (Reported) Entered as Reported by: CHARLENE DEL CASTILLO on 11/12/161834 Last Action: Converted on 12/14/181611 by DAYLIN MILLER MD Metformin Hcl (Metformin Hcl Er) 500 Mg Tab.er.24h, 1 TAB PO DAILY, #90 Ref 3 ( Reported) Entered as Reported by: CHARLENE DEL CASTILLO on 11/12/161834 Last Action: HELD on 12/14/181611 by DAYLIN MILLER MD Pantoprazole Sodium (Protonix) 40 Mg Granpkt.dr, 40 MG PO DAILY for GI BLEEDING for 30 Days, #30 Ref 2 Prescribed by: FLORY NEAL MD on 11/22/181612 Last Action: Converted on 12/14/181611 by DAYLIN MILLER MD Ropinirole Hcl (Requip) 1 Mg Tablet, 3 MG PO DAILY, (Reported) Entered as Reported by: PITA GARG on 01/27/16 0455 Last Action: Converted on 12/14/181611 by DAYLIN MILLER MD Spironolactone (Spironolactone) 25 Mg Tablet, 1 TAB PO DAILY, #90 Ref 1 ( Reported) Entered as Reported by: CHARLENE DEL CASTILLO on 11/12/16 183 Last Action: Converted on 12/14/181611 by DAYLIN MILLER MD [Pantoprazole] 40 MG TABLET.DR, 40 MG PO DAILYAC for stomach, #30 Prescribed by: RADAMES MÉNDEZ on 01/15/19 1006 Scheduled PRN Alprazolam (Alprazolam) 0.25 Mg Tablet, 0.25 MG PO PRN Q8HRS PRN for ANXIETY / AGITATION, #30 Prescribed by: RADAMES MÉNDEZ on 01/15/19 1006 [Bisacodyl] 10 MG SUPP.RECT, 10 MG SD PRN DAILY PRN for CONSTIPATION 1ST CHOICE , #10 Prescribed by: RADAMES MÉNDEZ on 01/15/19 1006 Discontinued Medications Alprazolam (Alprazolam) 0.25 Mg Tablet, 0.25 MG PO DAILY for ANXIETY, (Reported) Entered as Reported by: BRENNAN MATUTE on 12/23/182212 Last Taken: Unknown Dose on Unknown Date & Time Last Action: New Order on 12/23/182212 by BRENNAN MATUTE Duloxetine Hcl (Cymbalta) 20 Mg Capsule.dr, 90 MG PO DAILY, (Reported) Entered as Reported by: PITA GARG on 01/27/16 0510 Last Action: Converted on 12/14/181611 by DAYLIN MILLER MD Patient Instructions Patient Instructions > 30 min on TPN, may stop if PO intake > 50% RADAMES MÉNDEZ MD Jan 15, 2019 10:12
[2019-01-15] MEDS ORDERED: HYDR-2761 PO (10:23)
--- NOTE | 2019-01-15 10:25 | DISCH ---
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 and hemorrhoidectomy 12/30 Anemia, colonic Avms, Acute hypoxic respiratory failure, improved by discharge post op malnutrition Acuet renal failure, vasomotor nephropathy COPD Sepsis/Leukopenia ileus, post o weakness and debility cognitive decline Dm2, now on insulin hypomagnesemia, CONDITION ON DISCHARGE: Stable CODE STATUS: Code Status: Full [facility]CI: SNF STAY <30 DAYS: Yes HOSPICE: HOSPICE: No POST DISCHARGE ORDERS: ACTIVITY ORDERS: Activity as tolerated WEIGHT BEARING STATUS: As tolerated DIET AFTER DISCHARGE: Regular (GI soft, ) WOUND/INCISION CARE: No wound care needed CHECKS AFTER DISCHARGE: CHECKS AFTER DISCHARGE: Check blood press - daily, Check blood sugar, ac/hs FOLLOW-UP: PHYSICIAN FOLLOW-UP: 1 week ADDITIONAL FOLLOW-UP: may stop TPN if PO intake >50% LAB ORDERS FOR FOLLOW-UP: chem 12, cbc < 1 week TREATMENT/EQUIPMENT ORDERS: ADAPTIVE EQUIPMENT NEEDED: None RESPIRATORY EQUIPMENT NEEDED: Oxygen Physical Therapy For: Evalulation/Treatment Occupational Therapy For: Evaluation/Treatment DISCHARGE MEDICATIONS: Home Meds Active Scripts Hydrocodone Bit/Acetaminophen (HYDROCODONE-APAP 5-325 ) 1 Tab Tablet, 1 TAB PO PRN Q4HRS PRN for MODERATE PAIN, #40 TAB Prov:RADAMES MÉNDEZ MD 01/15/19 Budesonide/Formoterol Fumarate (SYMBICORT 80-4.5 MCG INHALER) 10.2 Gm Hfa.aer.ad , 1 PUFF IH BID for COPD, #10.2 GM 5 Refills Prov:RADAMES MÉNDEZ MD 01/15/19 Ipratropium/Albuterol Sulfate (DUONEB 0.5-3(2.5) MG/3 ML) 3 Ml Ampul.neb, 3 ML NEB BID for COPD, #60 EACH Prov:RADAMES MÉNDEZ MD 01/15/19 [Bisacodyl Supp] 10 MG SUPP.RECT No Conflict Check, 10 MG TN PRN DAILY PRN for CONSTIPATION 1ST CHOICE, #10 SUPP.RECT Prov:RADAMES MÉNDEZ MD 01/15/19 Docusate Sodium (COLACE) 100 Mg Capsule, 100 MG PO DAILY for stool softener, # 90 CAP Prov:RADAMES MÉNDEZ MD 01/15/19 Insulin Lispro (HUMALOG) 100 Unit/1 Ml Insuln.pen, 10 UNITS SQ TIDAC for diabetes for 30 Days, EACH Prov:RADAMES MÉNDEZ MD 01/15/19 Insulin Glargine,Hum.rec.anlog (LANTUS SOLOSTAR) 100 Unit/1 Ml Insuln.pen, 18 UNITS SQ DAILY10 for diabetes for 30 Days, EACH Prov:RADAMES MÉNDEZ MD 01/15/19 [Pantoprazole] 40 MG TABLET. No Conflict Check, 40 MG PO DAILYAC for stomach, #30 Prov:RADAMES MÉNDEZ MD 01/15/19 Alprazolam (ALPRAZOLAM) 0.25 Mg Tablet, 0.25 MG PO PRN Q8HRS PRN for ANXIETY / AGITATION, #30 TAB Prov:RADAMES MÉNDEZ MD 01/15/19 Duloxetine Hcl (CYMBALTA) 30 Mg Capsule., 60 MG PO DAILY for pain, mood, #30 CAP Prov:RADAMES MÉNDEZ MD 01/15/19 Chlorhexidine Gluconate (CHLORHEXIDINE GLUCONATE) 473 Ml Mouthwash, 473 ML MM BID for 7 Days, #1 MISC Prov:OLYA MORE DATE PULLER 12/10/18 Ascorbate Calcium (VITAMIN C) 500 Mg Tablet, 500 MG PO DAILY for with iron for 30 Days, #30 TAB 2 Refills Prov:FLORY NEAL MD 11/22/18 Ferrous Sulfate (Slow Release Iron) 250 Mg Tablet.er, 250 MG PO DAILY for GI bleed for 30 Days, #30 TAB.SR 2 Refills Prov:FLORY NEAL MD 11/22/18 Pantoprazole Sodium (PROTONIX) 40 Mg Granpkt.dr, 40 MG PO DAILY for GI BLEEDING for 30 Days, #30 TAB 2 Refills Prov:FLORY NEAL MD 11/22/18 Reported Medications Metformin Hcl (METFORMIN HCL ER) 500 Mg Tab.er.24h, 1 TAB PO DAILY, #90 TAB 3 Refills 11/12/16 Memantine Hcl (NAMENDA) 10 Mg Tablet, 1 TAB PO BID, #180 TAB 1 Refill 11/12/16 Losartan Potassium (LOSARTAN POTASSIUM) 100 Mg Tablet, 100 MG PO DAILY, TAB 11/12/16 Spironolactone (SPIRONOLACTONE) 25 Mg Tablet, 1 TAB PO DAILY, #90 TAB 1 Refill 11/12/16 Albuterol Sulfate (VENTOLIN HFA INHALER) 18 Gm Hfa.aer.ad, 2 PUFF INH Q4HRS for FOR ASTHMA, INHALER 0 Refills 11/11/16 Ropinirole Hcl (REQUIP) 1 Mg Tablet, 3 MG PO DAILY, TAB 01/27/16 Amlodipine Besylate (AMLODIPINE BESYLATE) 10 Mg Tablet, 10 MG PO DAILY, TAB 01/27/16 Discontinued Reported Medications Alprazolam (ALPRAZOLAM) 0.25 Mg Tablet, 0.25 MG PO DAILY for ANXIETY 12/23/18 Duloxetine Hcl (CYMBALTA) 20 Mg Capsule.dr, 90 MG PO DAILY, CAP 01/27/16 RADAMES MÉNDEZ MD Jan 15, 2019 10:25
--- NOTE | 2019-01-15 10:50 | PDOC ---
PROGRESS NOTES Chief Complaint Chief Complaint Cecal ulceration - s/p X LAP - rt colon resection and hemorrhoidectomy 12/30 Anemia, colonic Avms Acute hypoxic respiratory failure, improving post op malnutrition VISHNU COPD Sepsis/Leukopenia - meropenem and vanco, ID following ileus History of Present Illness History of Present Illness I worked on DC plan, > 30 min surg team would prefer she stay, diet to GI soft only yesterday, cont current , try to DC each day Vitals Vitals Vital Signs Date Time Temp Pulse Resp B/P (MAP) Pulse Ox O2 Delivery O2 Flow Rate FiO2 01/15/19 08:43 73 142/75 01/15/19 07:42 16 98 Nasal Cannula 3.0 01/15/19 07:00 98.1 98.1 Physical Exam Physical Exam GENERAL: Sitting in the chair, relaxed appearance, alert. HEENT: Oral cavity pink, dry NECK: Supple LUNGS: Diminished aeration bases, nonlabored HEART: S1, S2 ABDOMEN: Distended, NT to light palpation. + BS, dressing. mild serous fluid EXTREMITIES: LLE 1+ edema. no cyanosis SKIN: No rash. NEUROLOGIC: Alert, responding appropriately RUE-PICC (12/23) clean General: Alert, Oriented X3, Cooperative, No acute distress Heart: Regular rate, Normal S1, Normal S2, No murmurs Lungs: Clear Abdomen: Soft, Other (incision intact, NTTP) Extremities: No clubbing, No cyanosis, No edema Skin: No breakdown, No significant lesion Labs LABS Laboratory Tests Test 01/14/19 11:59 01/15/19 00:26 01/15/19 06:12 Glucose (Fingerstick) 165 mg/dL (70-99) 132 mg/dL (70-99) 144 mg/dL (70-99) Comment Review of Relevant I have reviewed the following items abdifatah (where applicable) has been applied. Labs Laboratory Tests Test 01/13/19 11:41 01/13/19 17:32 01/13/19 23:52 01/14/19 02:30 Glucose (Fingerstick) 178 mg/dL (70-99) 107 mg/dL (70-99) 124 mg/dL (70-99) Clostridium difficile Toxin B Gene Negative (Negative) Test 01/14/19 06:00 01/14/19 06:20 01/14/19 11:59 01/15/19 00:26 Hemoglobin 7.4 g/dL (12.0-15.5) Hematocrit 23.4 % (36.0-47.0) Mean Corpuscular Hemoglobin Concent 32 g/dL (31-37) Magnesium Level 1.8 mg/dL (1.8-2.4) Glucose (Fingerstick) 142 mg/dL (70-99) 165 mg/dL (70-99) 132 mg/dL (70-99) Test 01/15/19 06:12 Glucose (Fingerstick) 144 mg/dL (70-99) Laboratory Tests Test 01/14/19 11:59 01/15/19 00:26 01/15/19 06:12 Glucose (Fingerstick) 165 mg/dL (70-99) 132 mg/dL (70-99) 144 mg/dL (70-99) Microbiology 01/01/19 Blood Culture - Final, Complete NO GROWTH AFTER 5 DAYS 12/25/18 - Final, Complete 12/25/18 - Final, Complete 12/25/18 - Final, Complete 12/25/18 - Final, Complete 12/25/18 Gram Stain Evaluation - Final, Complete 12/25/18 Sputum Culture - Final, Complete 12/25/18 Sputum Result 1 - Final, Complete Medications Current Medications Sodium Chloride 1,000 ml @ 1,000 mls/hr 1X ONCE IV Last administered on at 13:52; Start 12/14/18 at 13:30; Stop 12/14/18 at 14:29; Status DC Amlodipine Besylate (Norvasc) 10 mg DAILY PO Last administered on 01/07/19at 08: 45; Start 12/14/18 at 17:00; Stop 01/12/19 at 08:54; Status DC Chlorhexidine Gluconate (Peridex) 15 ml BID MM Last administered on 01/15/19at 08 :45; Start 12/14/18 at 21:00 Non-Formulary Medication (Albuterol Sulfate (Ventolin Hfa Inhaler)) 2 puff Q4HRS INH ; Start 12/14/18 at 20:00; Status UNV Ascorbic Acid (Vitamin C) 500 mg DAILY PO Last administered on 12/22/18at 10:30; Start 12/14/18 at 17:00; Stop 01/12/19 at 08:54; Status DC Duloxetine HCl (Cymbalta) 90 mg DAILY PO Last administered on 01/07/19 08:48; Start 12/14/18 at 17:00; Stop 01/10/19 at 10:18; Status DC Ferrous Sulfate (Feosol) 325 mg DAILYWBKFT PO Last administered on 12/22/18at 10: 30; Start 12/14/18 at 17:00; Stop 01/12/19 at 08:54; Status DC Losartan Potassium (Cozaar) 100 mg DAILY PO Last administered on 12/22/18 10:29 ; Start 12/14/18 at 17:00; Stop 01/12/19 at 08:54; Status DC Memantine (Namenda) 10 mg BID PO Last administered on 01/07/19 08:45; Start at 21:00; Stop 01/10/19 at 10:18; Status DC Pantoprazole Sodium (Protonix) 40 mg DAILYAC PO Last administered on 12/22/18 05:28; Start 12/14/18 at 17:00; Stop 12/24/18 at 09:25; Status DC Ropinirole HCl (Requip) 3 mg QHS PO Last administered on 01/07/19 20:26; Start 12/14/18 at 21:00; Stop 01/12/19 at 08:54; Status DC Spironolactone (Aldactone) 25 mg DAILY PO Last administered on 01/07/19 08:45 ; Start 12/14/18 at 17:00; Stop 01/12/19 at 08:54; Status DC Albuterol Sulfate (Ventolin Neb Soln) 2.5 mg Q4HRS NEB Last administered on at 06:52; Start 12/14/18 at 20:00; Stop 01/02/19 at 07:24; Status DC Sodium Chloride 1,000 ml @ 80 mls/hr [id number] IV Last administered on 12/23/18at 15:25; Start 12/14/18 at 17:15; Stop 12/23/18 at 21:59; Status DC Acetaminophen (Tylenol) 650 mg PRN Q6HRS PRN PO Pain Last administered on at 21:27; Start 12/15/18 at 04:45; Stop 12/26/18 at 21:07; Status DC Polyethylene Glycol (miraLAX Powder BULK BOTTLE) 238 gm 1X ONCE PO Last administered on 12/15/18at 12:48; Start 12/15/18 at 12:00; Stop 12/15/18 at 12:01 ; Status DC Ondansetron HCl (Zofran) 4 mg PRN Q6HRS PRN IV NAUSEA/VOMITING; Start 12/16/18 at 07:00; Stop 12/17/18 at 06:59; Status DC Fentanyl Citrate (Fentanyl 2ml Vial) 25 mcg PRN Q5MIN PRN IV MILD PAIN; Start 12/16/18 at 07:00; Stop 12/16/18 at 16:33; Status DC Fentanyl Citrate (Fentanyl 2ml Vial) 50 mcg PRN Q5MIN PRN IV MODERATE TO SEVERE PAIN; Start 12/16/18 at 07:00; Stop 12/16/18 at 16:33; Status DC Morphine Sulfate (Morphine Sulfate) 1 mg PRN Q10MIN PRN IV SEVERE PAIN; Start 12/16/18 at 07:00; Stop 12/17/18 at 06:59; Status DC Ringer's Solution 1,000 ml @ 30 mls/hr Q24H IV Last administered on 12/16/18at 13:00; Start 12/16/18 at 07:00; Stop 12/16/18 at 18:59; Status DC Lidocaine HCl (Xylocaine-Mpf 1% 2ml Vial) 2 ml PRN 1X PRN ID IV START; Start at 07:00; Stop 12/17/18 at 06:59; Status DC Hydromorphone HCl (Dilaudid) 0.5 mg PRN Q10MIN PRN IV SEV PAIN, Second choice; Start 12/16/18 at 07:00; Stop 12/17/18 at 06:59; Status DC Prochlorperazine Edisylate (Compazine) 5 mg PACU PRN PRN IV NAUSEA, MRX1; Start 12/16/18 at 07:00; Stop 12/17/18 at 06:59; Status DC Midazolam HCl (Versed) 2 mg PRN 1X PRN IV PRIOR TO PROCEDURE; Start 12/16/18 at 07:15; Stop 12/17/18 at 07:14; Status DC Fentanyl Citrate (Fentanyl 2ml Vial) 25 mcg PRN Q5MIN PRN IV X 2 DOSES FOR PAIN ; Start 12/16/18 at 07:15; Stop 12/16/18 at 16:33; Status DC Fentanyl Citrate (Fentanyl 2ml Vial) 50 mcg PRN Q5MIN PRN IV X 2 DOSES FOR PAIN ; Start 12/16/18 at 07:15; Stop 12/16/18 at 16:34; Status DC Ringer's Solution 1,000 ml @ 125 mls/hr Q8H IV ; Start 12/16/18 at 07:13; Stop 12/16/18 at 19:12; Status DC Lidocaine HCl (Xylocaine-Mpf 1% 2ml Vial) 2 ml 1X PRN PRN ID IV START; Start at 07:15; Stop 12/17/18 at 07:14; Status DC Propofol 40 ml @ As Directed STK-MED ONCE IV ; Start 12/16/18 at 13:58; Stop at 14:00; Status DC Prochlorperazine Edisylate (Compazine) 5 mg PACU PRN PRN IV NAUSEA, MRX1; Start 12/17/18 at 07:00; Stop 12/18/18 at 06:59; Status DC Hydromorphone HCl (Dilaudid) 0.5 mg PRN Q10MIN PRN IV SEV PAIN, Second choice; Start 12/17/18 at 07:00; Stop 12/18/18 at 06:59; Status DC Lidocaine HCl (Xylocaine-Mpf 1% 2ml Vial) 2 ml PRN 1X PRN ID IV START; Start at 07:00; Stop 12/18/18 at 06:59; Status DC Ringer's Solution 1,000 ml @ 30 mls/hr Q24H IV Last administered on 12/17/18at 10:34; Start 12/17/18 at 07:00; Stop 12/17/18 at 18:59; Status DC Morphine Sulfate (Morphine Sulfate) 1 mg PRN Q10MIN PRN IV SEVERE PAIN; Start 12/17/18 at 07:00; Stop 12/18/18 at 06:59; Status DC Fentanyl Citrate (Fentanyl 2ml Vial) 50 mcg PRN Q5MIN PRN IV MODERATE TO SEVERE PAIN Last administered on 12/17/18at 11:13; Start 12/17/18 at 07:00; Stop at 06:59; Status DC Fentanyl Citrate (Fentanyl 2ml Vial) 25 mcg PRN Q5MIN PRN IV MILD PAIN; Start 12/17/18 at 07:00; Stop 12/18/18 at 06:59; Status DC Ondansetron HCl (Zofran) 4 mg PRN Q6HRS PRN IV NAUSEA/VOMITING; Start 12/17/18 at 07:00; Stop 12/18/18 at 06:59; Status DC Propofol 20 ml @ As Directed STK-MED ONCE IV ; Start 12/17/18 at 07:21; Stop 12/17 at 07:23; Status DC Albuterol Sulfate (Ventolin Neb Soln) 2.5 mg 1X ONCE NEB ; Start 12/17/18 at 07: 30; Stop 12/17/18 at 07:31; Status DC Lidocaine HCl (Lidocaine Pf 2% Vial) 5 ml STK-MED ONCE .ROUTE ; Start 12/17/18 at 07:21; Stop 12/17/18 at 07:23; Status DC Succinylcholine Chloride (Anectine) 200 mg STK-MED ONCE .ROUTE ; Start 12/17/18 at 07:21; Stop 12/17/18 at 07:23; Status DC Rocuronium [place] (Zemuron) 50 mg STK-MED ONCE .ROUTE ; Start 12/17/18 at 07:21 ; Stop 12/17/18 at 07:23; Status DC Fentanyl Citrate (Fentanyl 2ml Vial) 100 mcg STK-MED ONCE .ROUTE ; Start at 07:21; Stop 12/17/18 at 07:24; Status DC Cefazolin Sodium/ Dextrose 50 ml @ 100 mls/hr 1X ONCE IV Last administered on 12/17/18at 08:07; Start 12/17/18 at 07:45; Stop 12/17/18 at 08:18; Status DC Bupivacaine HCl/ Epinephrine Bitart (Sensorcain-Mpf Epi 0.5%-[id number]) 30 ml STK -MED ONCE .ROUTE Last administered on 12/17/18at 08:34; Start 12/17/18 at 07:46; Stop 12/17/18 at 07:49; Status DC Neomycin/ Polymyxin/ Bacitracin (Triple Antibiotic Ointment) 1 pkt STK-MED ONCE TP Last administered on 12/17/18at 10:07; Start 12/17/18 at 07:46; Stop 12/17/18 at 07:49; Status DC Neomycin/ Polymyxin/ Bacitracin (Triple Antibiotic Ointment) 1 pkt STK-MED ONCE TP Last administered on 12/17/18at 10:07; Start 12/17/18 at 07:46; Stop 12/17/18 at 07:49; Status DC Neomycin/ Polymyxin/ Bacitracin (Triple Antibiotic Ointment) 1 pkt STK-MED ONCE TP ; Start 12/17/18 at 07:47; Stop 12/17/18 at 07:49; Status DC Dexamethasone Sodium Phosphate (Decadron) 20 mg STK-MED ONCE .ROUTE ; Start 12/17 at 07:54; Stop 12/17/18 at 07:56; Status DC Hydrocortisone Sodium Succinate (Solu-CORTEF) 100 mg STK-MED ONCE .ROUTE ; Start 12/17/18 at 07:54; Stop 12/17/18 at 07:56; Status DC Desflurane (Suprane) 90 ml STK-MED ONCE IH ; Start 12/17/18 at 07:54; Stop at 07:56; Status DC Neostigmine Methylsulfate (Bloxiverz) 10 mg STK-MED ONCE .ROUTE ; Start 12/17/18 at 08:21; Stop 12/17/18 at 08:24; Status DC Glycopyrrolate (Robinul) 1 mg STK-MED ONCE .ROUTE ; Start 12/17/18 at 08:21; Stop 12/17/18 at 08:24; Status DC Phenylephrine HCl (Bogdan-Synephrine Inj) 10 mg STK-MED ONCE .ROUTE ; Start at 08:23; Stop 12/17/18 at 08:26; Status DC Desflurane (Suprane) 60 ml STK-MED ONCE IH ; Start 12/17/18 at 09:23; Stop at 09:26; Status DC Bupivacaine HCl/ Epinephrine Bitart (Sensorcain-Mpf Epi 0.5%-1:[id number]) 30 ml STK -MED ONCE .ROUTE Last administered on 12/17/18 10:06; Start 12/17/18 at 09:41; Stop 12/17/18 at 09:43; Status DC Morphine Sulfate (Morphine Sulfate) 2 mg PRN Q2HR PRN IV PAIN Last administered on 12/25/18 09:26; Start 12/17/18 at 10:15; Stop 12/25/18 at 17:54; Status DC Ketorolac Tromethamine (Toradol 15mg Vial) 15 mg Q6HRS IV Last administered on 12/18/18 05:39; Start 12/17/18 at 12:00; Stop 12/18/18 at 10:00; Status DC Artificial Tears (Artificial Tears) 1 drop PRN Q15MIN PRN OU DRY EYE Last administered on 12/20/18 21:28; Start 12/18/18 at 08:00 Docusate Sodium (Colace) 100 mg DAILY PO Last administered on 01/07/19 08:45; Start 12/18/18 at 10:00; Stop 01/12/19 at 08:54; Status DC Throat Lozenges (Cepacol Sore Throat Lozenge) 1 kristyn PRN Q2HRS PRN PO SORE THROAT Last administered on 01/15/19 08:45; Start 12/18/18 at 14:00 Enoxaparin Sodium (Lovenox 40mg Syringe) 40 mg Q24H SQ Last administered on 01/15 08:48; Start 12/19/18 at 09:00 Ondansetron HCl (Zofran) 4 mg PRN Q6HRS PRN IV NAUSEA/VOMITING Last administered on 01/14/19 07:54; Start 12/19/18 at 11:30 Insulin Human Lispro (HumaLOG) 0-5 UNITS TIDWMEALS SQ Last administered on 12/30 18:23; Start 12/19/18 at 17:00; Stop 12/31/18 at 00:05; Status DC Dextrose (Dextrose 50%-Water Syringe) 12.5 gm PRN Q15MIN PRN IV SEE COMMENTS; Start 12/19/18 at 16:45 Levofloxacin/ Dextrose 100 ml @ 100 mls/hr 1X ONCE IV Last administered on 20:56; Start 12/19/18 at 21:00; Stop 12/19/18 at 21:59; Status DC Cefepime HCl (Maxipime) 2 gm Q12HR IVP Last administered on 12/29/18 10:02; Start 12/21/18 at 10:00; Stop 12/29/18 at 10:37; Status DC Sodium Chloride 1,000 ml @ 125 mls/hr 1X ONCE IV Last administered on 10:43; Start 12/21/18 at 09:45; Stop 12/21/18 at 17:44; Status DC Calcium Carbonate/ Glycine (Tums) 500 mg PRN AFTMEALHC PRN PO INDIGESTION Last administered on 01/13/19 03:22; Start 12/21/18 at 12:15; Stop 01/13/19 at 08:50 ; Status DC Lorazepam (Ativan) 1 mg 1X ONCE IV Last administered on 12/21/18 17:50; Start 12/21/18 at 17:30; Stop 12/21/18 at 17:31; Status DC Albuterol Sulfate (Ventolin Neb Soln) 2.5 mg PRN Q2HRS PRN NEB SHORTNESS OF BREATH Last administered on 01/07/19 12:45; Start 12/21/18 at 17:30 Nicotine (Nicoderm Cq 14mg) 1 patch PRN DAILY PRN TD SMOKING CESSATION Last administered on 12/26/18 09:59; Start 12/21/18 at 19:30 Lorazepam (Ativan) 1 mg 1X ONCE IV Last administered on 12/21/18 23:45; Start 12/21/18 at 23:45; Stop 12/21/18 at 23:46; Status DC Lorazepam (Ativan) 1 mg PRN Q4HRS PRN IV ANXIETY / AGITATION Last administered on 12/22/18 11:15; Start 12/21/18 at 23:30; Stop 12/22/18 at 14:42; Status DC Sodium Chloride 1,000 ml @ 250 mls/hr 1X ONCE IV Last administered on 09:15; Start 12/22/18 at 09:15; Stop 12/22/18 at 13:14; Status DC Lidocaine/Sodium Bicarbonate (Buffered Lidocaine 1%) 3 ml STK-MED ONCE .ROUTE ; Start 12/23/18 at 10:33; Stop 12/23/18 at 10:35; Status DC Lidocaine/Sodium Bicarbonate (Buffered Lidocaine 1%) 3 ml 1X ONCE INJ Last administered on 12/23/18at 11:24; Start 12/23/18 at 11:00; Stop 12/23/18 at 11:10; Status DC Info (Tpn Per Pharmacy) 1 each PRN DAILY PRN MC SEE COMMENTS Last administered on 01/14/19at 11:33; Start 12/23/18 at 14:00 Sodium Chloride 90 meq/Potassium Chloride 50 meq/ Potassium Phosphate 20.4 mmol/ Magnesium Sulfate 18 meq/ Calcium Gluconate 5 meq/ Multivitamins 10 ml/Chromium / Copper/Manganese/ Seleni/Zn 1 ml/ Total Parenteral Nutrition/Amino Acids/ Dextrose/ Fat Emulsion Intravenous 1,512 ml @ 63 mls/hr TPN CONT IV Last administered on 12/23/18at 21:37; Start 12/23/18 at 22:00; Stop 12/24/18 at 21:59; Status DC Alprazolam (Xanax) 0.25 mg PRN BID PRN PO ANXIETY / AGITATION Last administered on 12/25/18at 09:25; Start 12/23/18 at 23:00; Stop 12/25/18 at 17:54; Status DC Lorazepam (Ativan) 1 mg PRN Q4HRS PRN IV ANXIETY / AGITATION Last administered on 12/24/18at 09:21; Start 12/24/18 at 08:45; Stop 12/24/18 at 10:19; Status DC Pantoprazole Sodium (PROTONIX VIAL for IV PUSH) 40 mg DAILYAC IVP Last administered on 01/14/19at 05:56; Start 12/24/18 at 09:30; Stop 01/14/19 at 09:35; Status DC Lorazepam (Ativan) 0.5 mg PRN Q4HRS PRN IV ANXIETY / AGITATION Last administered on 12/25/18at 04:47; Start 12/24/18 at 10:30; Stop 12/25/18 at 10:22; Status DC Sodium Chloride 45 meq/Sodium Acetate 45 meq/ Potassium Chloride 50 meq/ Potassium Phosphate 20.4 mmol/Magnesium Sulfate 18 meq/ Calcium Gluconate 5 meq / Multivitamins 10 ml/Chromium/ Copper/Manganese/ Seleni/Zn 1 ml/ Total Parenteral Nutrition/Amino Acids/Dextrose/ Fat Emuls... 1,512 ml @ 63 mls/hr TPN CONT IV Last administered on 12/24/18at 21:57; Start 12/24/18 at 22:00; Stop 12/25/18 at 21:59; Status DC Phenyleph/Shark Oil/Min Oil/Petrol (Preparation H) 1 ranjith PRN Q4HRS PRN RC RECTAL PAIN; Start 12/24/18 at 12:45; Stop 12/25/18 at 20:20; Status DC Sodium Chloride 45 meq/Sodium Acetate 45 meq/ Potassium Chloride 50 meq/ Potassium Phosphate 20.4 mmol/Magnesium Sulfate 18 meq/ Calcium Gluconate 5 meq / Multivitamins 10 ml/Chromium/ Copper/Manganese/ Seleni/Zn 1 ml/ Total Parenteral Nutrition/Amino Acids/Dextrose/ Fat Emuls... 1,512 ml @ 63 mls/hr TPN CONT IV Last administered on 12/26/18at 00:34; Start 12/25/18 at 22:00; Stop 12/26/18 at 21:59; Status DC Neomycin/ Polymyxin/ Bacitracin (Triple Antibiotic Ointment) 1 pkt PRN TID PRN TP skin around rectum, post op Last administered on 01/15/19at 08:45; Start at 14:30 Alprazolam (Xanax) 0.25 mg PRN Q8HRS PRN PO ANXIETY / AGITATION Last administered on 01/07/19at 13:01; Start 12/25/18 at 18:00; Stop 01/12/19 at 08:54 ; Status DC Morphine Sulfate (Morphine Sulfate) 2 mg PRN Q6HRS PRN IV PAIN Last administered on 12/29/18at 21:47; Start 12/25/18 at 18:00; Stop 12/30/18 at 03:17 ; Status DC Guaifenesin (Mucinex) 600 mg BID PO Last administered on 12/26/18at 21:26; Start 12/26/18 at 11:00; Stop 01/12/19 at 08:54; Status DC Guaifenesin (Mucinex) 600 mg BID PO ; Start 12/26/18 at 11:00; Status UNV Guaifenesin/ Codeine Phosphate (Robitussin Ac) 5 ml PRN Q6HRS PRN PO COUGH Last administered on 12/26/18at 10:41; Start 12/26/18 at 10:30; Stop 01/13/19 at 08:50; Status DC Sodium Acetate 90 meq/Potassium Chloride 50 meq/ Potassium Phosphate 13.6 mmol/ Magnesium Sulfate 18 meq/ Calcium Gluconate 5 meq/ Multivitamins 10 ml/Chromium / Copper/Manganese/ Seleni/Zn 1 ml/ Total Parenteral Nutrition/Amino Acids/ Dextrose/ Fat Emulsion Intravenous 1,512 ml @ 63 mls/hr TPN CONT IV Last administered on 12/26/18at 21:37; Start 12/26/18 at 22:00; Stop 12/28/18 at 01:28 ; Status DC Benzocaine (Hurricaine One) 1 spray 1X ONCE MM ; Start 12/26/18 at 19:15; Stop 12/26/18 at 19:16; Status DC Acetaminophen (Tylenol) 650 mg PRN Q6HRS PRN PO MILD PAIN / TEMP Last administered on 12/27/18at 04:39; Start 12/26/18 at 21:00 Benzocaine (Hurricaine One) 1 spray 1X ONCE MM Last administered on 12/27/18at 09:00; Start 12/27/18 at 09:15; Stop 12/27/18 at 09:16; Status DC Sodium Acetate 90 meq/Potassium Chloride 50 meq/ Potassium Phosphate 13.6 mmol/ Magnesium Sulfate 15 meq/ Calcium Gluconate 5 meq/ Multivitamins 10 ml/Chromium / Copper/Manganese/ Seleni/Zn 1 ml/ Total Parenteral Nutrition/Amino Acids/ Dextrose/ Fat Emulsion Intravenous 1,512 ml @ 63 mls/hr TPN CONT IV ; Start at 22:00; Stop 12/28/18 at 21:59; Status Cancel Sodium Acetate 90 meq/Potassium Chloride 50 meq/ Potassium Phosphate 13.6 mmol/ Magnesium Sulfate 15 meq/ Calcium Gluconate 5 meq/ Multivitamins 10 ml/Chromium / Copper/Manganese/ Seleni/Zn 1 ml/ Total Parenteral Nutrition/Amino Acids/ Dextrose/ Fat Emulsion Intravenous 1,512 ml @ 63 mls/hr TPN CONT IV ; Start at 22:00; Stop 12/28/18 at 21:59; Status DC Lidocaine/Sodium Bicarbonate (Buffered Lidocaine 1%) 3 ml 1X ONCE INJ ; Start 12/28/18 at 09:00; Stop 12/28/18 at 09:01; Status Cancel Benzocaine (Hurricaine One) 1 spray 1X ONCE MM Last administered on 12/28/18at 09:32; Start 12/28/18 at 09:30; Stop 12/28/18 at 09:33; Status DC Sodium Acetate 90 meq/Potassium Chloride 50 meq/ Potassium Phosphate 13.6 mmol/ Magnesium Sulfate 15 meq/ Calcium Gluconate 5 meq/ Multivitamins 10 ml/Chromium / Copper/Manganese/ Seleni/Zn 1 ml/ Total Parenteral Nutrition/Amino Acids/ Dextrose/ Fat Emulsion Intravenous 1,512 ml @ 63 mls/hr TPN CONT IV Last administered on 12/28/18at 22:06; Start 12/28/18 at 22:00; Stop 12/29/18 at 21:59 ; Status DC Iohexol (Omnipaque 300 Mg/ml) 400 ml 1X ONCE PO Last administered on at 08:15; Start 12/29/18 at 06:45; Stop 12/29/18 at 06:46; Status DC Info (CONTRAST GIVEN -- Rx MONITORING) 1 each PRN DAILY PRN MC SEE COMMENTS; Start 12/29/18 at 06:45; Stop 12/31/18 at 06:44; Status DC Iohexol (Omnipaque 300 Mg/ml) 400 ml 1X ONCE PO ; Start 12/29/18 at 07:00; Stop 12/29/18 at 07:03; Status DC Info (CONTRAST GIVEN -- Rx MONITORING) 1 each PRN DAILY PRN MC SEE COMMENTS; Start 12/29/18 at 07:15; Stop 12/31/18 at 07:14; Status DC Meropenem 500 mg/ Sodium Chloride 50 ml @ 100 mls/hr Q6HRS IV Last administered on 01/07/19at 06:05; Start 12/29/18 at 12:00; Stop 01/07/19 at 08:34 ; Status DC Multi-Ingredient Ointment (Analgesic [place]) 1 ranjith PRN QID PRN TP MUSCLE PAIN Last administered on 01/15/19at 08:48; Start 12/29/18 at 13:00 Sodium Acetate 90 meq/Potassium Chloride 50 meq/ Potassium Phosphate 13.6 mmol/ Magnesium Sulfate 15 meq/ Calcium Gluconate 5 meq/ Multivitamins 10 ml/Chromium / Copper/Manganese/ Seleni/Zn 1 ml/ Total Parenteral Nutrition/Amino Acids/ Dextrose/ Fat Emulsion Intravenous 1,512 ml @ 63 mls/hr TPN CONT IV Last administered on 12/29/18at 21:40; Start 12/29/18 at 22:00; Stop 12/30/18 at 21:59 ; Status DC Morphine Sulfate (Morphine Sulfate) 2 mg PRN Q4HRS PRN IV SEVERE PAIN Last administered on 12/30/18at 19:50; Start 12/30/18 at 03:30; Stop 12/30/18 at 21:33 ; Status DC Propofol 20 ml @ As Directed STK-MED ONCE IV ; Start 12/30/18 at 12:51; Stop at 12:52; Status DC Dexamethasone Sodium Phosphate (Decadron) 20 mg STK-MED ONCE .ROUTE ; Start at 12:51; Stop 12/30/18 at 12:52; Status DC Lidocaine HCl (Lidocaine Pf 2% Vial) 5 ml STK-MED ONCE .ROUTE ; Start 12/30/18 at 12:51; Stop 12/30/18 at 12:52; Status DC Ondansetron HCl (Zofran) 4 mg STK-MED ONCE .ROUTE ; Start 12/30/18 at 12:51; Stop 12/30/18 at 12:52; Status DC Rocuronium [place] (Zemuron) 50 mg STK-MED ONCE .ROUTE ; Start 12/30/18 at 12:51 ; Stop 12/30/18 at 12:52; Status DC Succinylcholine Chloride (Anectine) 200 mg STK-MED ONCE .ROUTE ; Start 12/30/18 at 12:51; Stop 12/30/18 at 12:52; Status DC Fentanyl Citrate (Fentanyl 5ml Vial) 250 mcg STK-MED ONCE .ROUTE ; Start at 13:49; Stop 12/30/18 at 13:50; Status DC Sodium Chloride 90 meq/Potassium Chloride 50 meq/ Potassium Phosphate 13.6 mmol/ Magnesium Sulfate 15 meq/ Multivitamins 10 ml/Chromium/ Copper/Manganese/ Seleni /Zn 1 ml/ Total Parenteral Nutrition/Amino Acids/Dextrose/ Fat Emulsion Intravenous 1,512 ml @ 63 mls/hr TPN CONT IV Last administered on 12/30/18at 23:43; Start 12/30/18 at 22:00; Stop 12/31/18 at 21:59; Status DC Vasopressin (Vasostrict) 20 unit STK-MED ONCE .ROUTE ; Start 12/30/18 at 15:00; Stop 12/30/18 at 15:01; Status DC Sodium Chloride (SODIUM CHLORIDE 20ml) 20 ml STK-MED ONCE IJ ; Start 12/30/18 at 15:01; Stop 12/30/18 at 15:02; Status DC Albumin Human 500 ml @ As Directed STK-MED ONCE IV ; Start 12/30/18 at 15:01; Stop 12/30/18 at 15:02; Status DC Glycopyrrolate (Robinul) 1 mg STK-MED ONCE .ROUTE ; Start 12/30/18 at 15:21; Stop 12/30/18 at 15:22; Status DC Neostigmine Methylsulfate (Bloxiverz) 10 mg STK-MED ONCE .ROUTE ; Start at 15:21; Stop 12/30/18 at 15:22; Status DC Albuterol/ Ipratropium (Duoneb) 3 ml STK-MED ONCE .ROUTE ; Start 12/30/18 at 15: 45; Stop 12/30/18 at 15:46; Status DC Fentanyl Citrate (Fentanyl 2ml Vial) 100 mcg STK-MED ONCE .ROUTE ; Start at 16:56; Stop 12/30/18 at 16:57; Status DC Ondansetron HCl (Zofran) 4 mg PRN Q6HRS PRN IV NAUSEA/VOMITING; Start 12/30/18 at 17:15; Stop 12/30/18 at 21:35; Status DC Fentanyl Citrate (Fentanyl 2ml Vial) 25 mcg PRN Q5MIN PRN IV MILD PAIN Last administered on 12/30/18at 17:15; Start 12/30/18 at 17:15; Stop 12/30/18 at 21:35 ; Status DC Fentanyl Citrate (Fentanyl 2ml Vial) 50 mcg PRN Q5MIN PRN IV MODERATE TO SEVERE PAIN Last administered on 12/30/18at 17:57; Start 12/30/18 at 17:15; Stop 12/30/18 at 21:35; Status DC Morphine Sulfate (Morphine Sulfate) 1 mg PRN Q10MIN PRN IV SEVERE PAIN; Start 12/30/18 at 17:15; Stop 12/31/18 at 17:14; Status DC Ringer's Solution 1,000 ml @ 30 mls/hr Q24H IV Last administered on 12/30/18at 18:09; Start 12/30/18 at 17:10; Stop 12/30/18 at 21:33; Status DC Lidocaine HCl (Xylocaine-Mpf 1% 2ml Vial) 2 ml 1X PRN PRN ID IV START; Start at 17:15; Stop 12/30/18 at 21:35; Status DC Hydromorphone HCl (Dilaudid) 0.5 mg PRN Q10MIN PRN IV SEV PAIN, Second choice; Start 12/30/18 at 17:15; Stop 12/30/18 at 21:35; Status DC Prochlorperazine Edisylate (Compazine) 5 mg PACU PRN PRN IV NAUSEA, MRX1; Start 12/30/18 at 17:15; Stop 12/30/18 at 21:35; Status DC Albumin Human 100 ml @ 100 mls/hr 1X ONCE IV Last administered on 12/30/18at 22:00; Start 12/30/18 at 22:00; Stop 12/30/18 at 22:59; Status DC Ringer's Solution 500 ml @ 500 mls/hr 1X ONCE IV Last administered on at 22:00; Start 12/30/18 at 22:00; Stop 12/30/18 at 22:59; Status DC Ringer's Solution 1,000 ml @ 100 mls/hr Q10H IV Last administered on at 00:58; Start 12/30/18 at 23:00; Stop 01/01/19 at 09:30; Status DC Hydromorphone HCl (Dilaudid) 0.5 mg PRN Q2HR PRN IV MODERATE PAIN Last administered on 01/04/19at 10:08; Start 12/30/18 at 21:30; Stop 01/04/19 at 15:05 ; Status DC Hydromorphone HCl (Dilaudid) 1 mg PRN Q2HR PRN IV SEVERE PAIN Last administered on 01/04/19at 04:51; Start 12/30/18 at 21:30; Stop 01/04/19 at 15:05 ; Status DC Insulin Human Lispro (HumaLOG) 0-5 UNITS Q6HRS SQ Last administered on at 06:42; Start 12/31/18 at 00:30; Stop 01/06/19 at 12:47; Status DC Sodium Chloride 90 meq/Potassium Chloride 30 meq/ Potassium Phosphate 13.6 mmol/ Magnesium Sulfate 15 meq/ Calcium Gluconate 5 meq/ Multivitamins 10 ml/Chromium / Copper/Manganese/ Seleni/Zn 1 ml/ Total Parenteral Nutrition/Amino Acids/ Dextrose/ Fat Emulsion Intravenous 1,512 ml @ 63 mls/hr TPN CONT IV Last administered on 12/31/18at 21:58; Start 12/31/18 at 22:00; Stop 01/01/19 at 21:59 ; Status DC Sodium Chloride 90 meq/Potassium Chloride 30 meq/ Potassium Phosphate 13.6 mmol/ Magnesium Sulfate 15 meq/ Calcium Gluconate 5 meq/ Multivitamins 10 ml/Chromium / Copper/Manganese/ Seleni/Zn 1 ml/ Total Parenteral Nutrition/Amino Acids/ Dextrose/ Fat Emulsion Intravenous 1,512 ml @ 63 mls/hr TPN CONT IV Last administered on 01/01/19at 21:09; Start 01/01/19 at 22:00; Stop 01/02/19 at 21:59 ; Status DC Vancomycin HCl (Vanco Per Pharmacy) 1 each PRN DAILY PRN MC SEE COMMENTS Last administered on 01/03/19at 10:18; Start 01/01/19 at 11:15; Stop 01/03/19 at 11:23 ; Status DC Vancomycin HCl 2 gm/Sodium Chloride 500 ml @ 250 mls/hr ONCE ONCE IV Last administered on 01/01/19at 12:28; Start 01/01/19 at 12:00; Stop 01/01/19 at 13:59 ; Status DC Vancomycin HCl 1.25 gm/Sodium Chloride 250 ml @ 166.667 mls/hr Q24H IV ; Start 01/01/19 at 12:00; Status Cancel Vancomycin HCl (Vancomycin Trough Level) 1 each 1X ONCE MC ; Start 01/03/19 at 11:30; Stop 01/03/19 at 11:31; Status Cancel Vancomycin HCl 1.25 gm/Sodium Chloride 250 ml @ 166.667 mls/hr Q24H IV Last administered on 01/02/19at 13:04; Start 01/02/19 at 12:00; Stop 01/03/19 at 11:23 ; Status DC Albuterol/ Ipratropium (Duoneb) 3 ml 1X ONCE NEB Last administered on at 08:19; Start 01/02/19 at 07:30; Stop 01/02/19 at 07:31; Status DC Albuterol/ Ipratropium (Duoneb) 3 ml Q4HRS NEB Last administered on 01/15/19at 07 :20; Start 01/02/19 at 12:00 Furosemide (Lasix) 20 mg 1X ONCE IVP Last administered on 01/02/19at 07:36; Start 01/02/19 at 07:30; Stop 01/02/19 at 07:31; Status DC Sodium Chloride 90 meq/Potassium Chloride 30 meq/ Potassium Phosphate 13.6 mmol/ Magnesium Sulfate 15 meq/ Calcium Gluconate 5 meq/ Multivitamins 10 ml/Chromium / Copper/Manganese/ Seleni/Zn 1 ml/ Total Parenteral Nutrition/Amino Acids/ Dextrose/ Fat Emulsion Intravenous 1,512 ml @ 63 mls/hr TPN CONT IV Last administered on 01/02/19at 21:20; Start 01/02/19 at 22:00; Stop 01/03/19 at 21:59 ; Status DC Sodium Chloride 90 meq/Potassium Chloride 30 meq/ Potassium Phosphate 13.6 mmol/ Magnesium Sulfate 15 meq/ Multivitamins 10 ml/Chromium/ Copper/Manganese/ Seleni /Zn 1 ml/ Insulin Human Regular 10 unit/ Total Parenteral Nutrition/Amino Acids/ Dextrose/ Fat Emulsion Intravenous 1,512 ml @ 63 mls/hr TPN CONT IV Last administered on 01/03/19at 22:07; Start 01/03/19 at 22:00; Stop 01/04/19 at 21:59 ; Status DC Sodium Chloride 90 meq/Potassium Chloride 30 meq/ Potassium Phosphate 13.6 mmol/ Magnesium Sulfate 15 meq/ Multivitamins 10 ml/Chromium/ Copper/Manganese/ Seleni /Zn 1 ml/ Insulin Human Regular 10 unit/ Total Parenteral Nutrition/Amino Acids/ Dextrose/ Fat Emulsion Intravenous 1,512 ml @ 63 mls/hr TPN CONT IV Last administered on 01/04/19at 22:11; Start 01/04/19 at 22:00; Stop 01/05/19 at 21:59 ; Status DC Hydromorphone HCl (Dilaudid) 0.5 mg PRN Q6HRS PRN IV MODERATE PAIN Last administered on 01/14/19at 14:54; Start 01/04/19 at 15:15 Hydromorphone HCl (Dilaudid) 1 mg PRN Q6HRS PRN IV SEVERE PAIN Last administered on 01/05/19at 02:18; Start 01/04/19 at 15:15; Stop 01/12/19 at 08:54 ; Status DC Dextrose (Dextrose 50%-Water Syringe) 25 gm STK-MED ONCE IV ; Start 01/04/19 at 08:50; Stop 01/05/19 at 08:26; Status DC Sodium Chloride 90 meq/Potassium Chloride 30 meq/ Potassium Phosphate 13.6 mmol/ Magnesium Sulfate 15 meq/ Multivitamins 10 ml/Chromium/ Copper/Manganese/ Seleni /Zn 1 ml/ Insulin Human Regular 10 unit/ Total Parenteral Nutrition/Amino Acids/ Dextrose/ Fat Emulsion Intravenous 1,512 ml @ 63 mls/hr TPN CONT IV Last administered on 01/05/19at 21:52; Start 01/05/19 at 22:00; Stop 01/06/19 at 21:59 ; Status DC Budesonide (Pulmicort) 0.5 mg RTBID NEB Last administered on 01/15/19 07:21; Start 01/05/19 at 12:00 Insulin Glargine (Lantus) 12 units DAILY10 SQ Last administered on 01/09/19at 09 :36; Start 01/06/19 at 13:30; Stop 01/09/19 at 12:16; Status DC Sodium Chloride 40 meq/Potassium Chloride 30 meq/ Potassium Phosphate 13.6 mmol/ Magnesium Sulfate 15 meq/ Multivitamins 10 ml/Chromium/ Copper/Manganese/ Seleni /Zn 1 ml/ Insulin Human Regular 10 unit/ Total Parenteral Nutrition/Amino Acids/ Dextrose/ Fat Emulsion Intravenous 1,512 ml @ 63 mls/hr TPN CONT IV Last administered on 01/07/19at 00:36; Start 01/06/19 at 22:00; Stop 01/07/19 at 21:59 ; Status DC Insulin Human Lispro (HumaLOG) 12 units 1X ONCE SQ Last administered on at 14:18; Start 01/06/19 at 13:00; Stop 01/06/19 at 13:01; Status DC Insulin Human Lispro (HumaLOG) 0-9 UNITS Q6HRS SQ Last administered on at 12:19; Start 01/06/19 at 18:00 Insulin Human Lispro (HumaLOG) 3 units 1X ONCE SQ Last administered on at 00:33; Start 01/07/19 at 00:30; Stop 01/07/19 at 00:31; Status DC Insulin Human Lispro (HumaLOG) 20 units 1X ONCE SQ Last administered on at 12:22; Start 01/07/19 at 12:15; Stop 01/07/19 at 12:16; Status DC Insulin Human Lispro (HumaLOG) 10 units TIDAC SQ Last administered on 01/15/19at 06:44; Start 01/07/19 at 16:30 Sodium Chloride 40 meq/Potassium Chloride 30 meq/ Potassium Phosphate 13.6 mmol/ Magnesium Sulfate 15 meq/ Multivitamins 10 ml/Chromium/ Copper/Manganese/ Seleni /Zn 1 ml/ Insulin Human Regular 10 unit/ Total Parenteral Nutrition/Amino Acids/ Dextrose/ Fat Emulsion Intravenous 1,512 ml @ 63 mls/hr TPN CONT IV Last administered on 01/07/19at 21:45; Start 01/07/19 at 22:00; Stop 01/08/19 at 21:59 ; Status DC Insulin Human Lispro (HumaLOG) 10 units 1X ONCE SQ Last administered on at 14:19; Start 01/07/19 at 14:00; Stop 01/07/19 at 14:01; Status DC Benzocaine (Hurricaine One) 1 spray 1X ONCE MM Last administered on 01/08/19at 09:44; Start 01/08/19 at 09:30; Stop 01/08/19 at 09:31; Status DC Lorazepam (Ativan) 0.5 mg PRN Q4HRS PRN IV ANXIETY / AGITATION Last administered on 01/15/19 01:21; Start 01/08/19 at 10:45 Sodium Chloride 40 meq/Potassium Chloride 30 meq/ Potassium Phosphate 10 mmol/ Magnesium Sulfate 15 meq/ Multivitamins 10 ml/Chromium/ Copper/Manganese/ Seleni /Zn 1 ml/ Insulin Human Regular 10 unit/ Total Parenteral Nutrition/Amino Acids/ Dextrose/ Fat Emulsion Intravenous 1,512 ml @ 63 mls/hr TPN CONT IV Last administered on 01/08/19at 22:00; Start 01/08/19 at 22:00; Stop 01/09/19 at 21:59 ; Status DC Saliva Substitute (Biotene Moisturizing Mouth) 2 spray PRN Q15MIN PRN PO DRY MOUTH Last administered on 01/08/19at 14:55; Start 01/08/19 at 14:45 Insulin Glargine (Lantus) 18 units DAILY10 SQ Last administered on 01/15/19at 09: 06; Start 01/10/19 at 10:00 Sodium Chloride 40 meq/Potassium Chloride 30 meq/ Potassium Phosphate 10 mmol/ Magnesium Sulfate 15 meq/ Multivitamins 10 ml/Chromium/ Copper/Manganese/ Seleni /Zn 1 ml/ Insulin Human Regular 10 unit/ Total Parenteral Nutrition/Amino Acids/ Dextrose/ Fat Emulsion Intravenous 1,512 ml @ 63 mls/hr TPN CONT IV Last administered on 01/09/19at 22:22; Start 01/09/19 at 22:00; Stop 01/10/19 at 21:59 ; Status DC Duloxetine HCl (Cymbalta) 60 mg DAILY PO ; Start 01/11/19 at 09:00; Stop at 08:54; Status DC Memantine (Namenda) 10 mg DAILY PO ; Start 01/11/19 at 09:00; Stop 01/12/19 at 08:54; Status DC Sodium Chloride 40 meq/Potassium Acetate 50 meq/ Potassium Phosphate 10 mmol/ Magnesium Sulfate 18 meq/ Multivitamins 10 ml/Chromium/ Copper/Manganese/ Seleni /Zn 1 ml/ Insulin Human Regular 10 unit/ Total Parenteral Nutrition/Amino Acids/ Dextrose/ Fat Emulsion Intravenous 1,512 ml @ 63 mls/hr TPN CONT IV Last administered on 01/10/19at 22:18; Start 01/10/19 at 22:00; Stop 01/11/19 at 21:59 ; Status DC Sodium Chloride 40 meq/Potassium Acetate 50 meq/ Potassium Phosphate 10 mmol/ Magnesium Sulfate 18 meq/ Multivitamins 10 ml/Chromium/ Copper/Manganese/ Seleni /Zn 1 ml/ Insulin Human Regular 10 unit/ Total Parenteral Nutrition/Amino Acids/ Dextrose/ Fat Emulsion Intravenous 1,512 ml @ 63 mls/hr TPN CONT IV Last administered on 01/11/19at 22:05; Start 01/11/19 at 22:00; Stop 01/12/19 at 21:59 ; Status DC Sodium Chloride 40 meq/Potassium Acetate 50 meq/ Potassium Phosphate 10 mmol/ Magnesium Sulfate 18 meq/ Multivitamins 10 ml/Chromium/ Copper/Manganese/ Seleni /Zn 1 ml/ Insulin Human Regular 10 unit/ Total Parenteral Nutrition/Amino Acids/ Dextrose/ Fat Emulsion Intravenous 1,512 ml @ 63 mls/hr TPN CONT IV Last administered on 01/12/19at 22:07; Start 01/12/19 at 22:00; Stop 01/13/19 at 21:59 ; Status DC Vitamin A/Vitamin D (Vitamin A & D Ointment) 1 ranjith PRN Q1HR PRN TP SKIN PROTECTION Last administered on 01/15/19at 08:48; Start 01/12/19 at 15:30 Bisacodyl (Dulcolax Supp) 10 mg PRN DAILY PRN [place] [employer]ST[place] 1ST CHOICE; Start 01/13/19 at 03:15 Magnesium Sulfate/ Dextrose 100 ml @ 100 mls/hr 1X ONCE IV Last administered on 01/13/19at 10:07; Start 01/13/19 at 09:30; Stop 01/13/19 at 10:29; Status DC Sodium Chloride 40 meq/Potassium Acetate 50 meq/ Potassium Phosphate 10 mmol/ Magnesium Sulfate 22 meq/ Multivitamins 10 ml/Chromium/ Copper/Manganese/ Seleni /Zn 1 ml/ Insulin Human Regular 10 unit/ Total Parenteral Nutrition/Amino Acids/ Dextrose/ Fat Emulsion Intravenous 1,512 ml @ 63 mls/hr TPN CONT IV Last administered on 01/13/19at 21:55; Start 01/13/19 at 22:00; Stop 01/14/19 at 21:59 ; Status DC Hydrocortisone Acetate (Anucort-Hc) 25 mg PRN QID PRN [place] RECTAL PAIN; Start at 14:00 Pantoprazole Sodium (Protonix) 40 mg DAILYAC PO Last administered on 01/15/19at 06:42; Start 01/15/19 at 07:30 Sodium Chloride 40 meq/Potassium Acetate 50 meq/ Potassium Phosphate 10 mmol/ Magnesium Sulfate 22 meq/ Multivitamins 10 ml/Chromium/ Copper/Manganese/ Seleni /Zn 1 ml/ Insulin Human Regular 10 unit/ Total Parenteral Nutrition/Amino Acids/ Dextrose/ Fat Emulsion Intravenous 1,512 ml @ 63 mls/hr TPN CONT IV Last administered on 01/14/19 21:58; Start 01/14/19 at 22:00; Stop 01/15/19 at 21:59 Acetaminophen/ Hydrocodone Bitart (Lortab 5/325) 1 tab PRN Q4HRS PRN PO MODERATE PAIN Last administered on 01/15/19 06:42; Start 01/14/19 at 21:45 Alprazolam (Xanax) 0.25 mg PRN Q8HRS PRN PO ANXIETY / AGITATION Last administered on 01/15/19 06:42; Start 01/14/19 at 21:45 Amlodipine Besylate (Norvasc) 10 mg DAILY PO Last administered on 01/15/19 08: 43; Start 01/15/19 at 09:00 Ascorbic Acid (Vitamin C) 500 mg DAILY PO Last administered on 01/15/19 08:45; Start 01/15/19 at 09:00 Ferrous Sulfate (Feosol) 325 mg DAILYWBKFT PO Last administered on 01/15/19 08: 44; Start 01/15/19 at 08:00 Ropinirole HCl (Requip) 3 mg QHS PO Last administered on 01/14/19 21:52; Start 01/14/19 at 22:00 Spironolactone (Aldactone) 25 mg DAILY PO Last administered on 01/15/19 08:54; Start 01/15/19 at 09:00 Docusate Sodium (Colace) 100 mg DAILY PO Last administered on 01/15/19 08:45; Start 01/15/19 at 09:00 Calcium Carbonate/ Glycine (Tums) 500 mg PRN AFTMEALHC PRN PO INDIGESTION Last administered on 01/15/19 09:51; Start 01/14/19 at 21:45 Duloxetine HCl (Cymbalta) 60 mg DAILY PO Last administered on 01/15/19 08:42; Start 01/15/19 at 09:00 Memantine (Namenda) 10 mg DAILY PO Last administered on 01/15/19at 08:44; Start 01/15/19 at 09:00 Active Scripts Active Hydrocodone-Apap 5-325 (Hydrocodone Bit/Acetaminophen) 1 Tab Tablet 1 Tab PO PRN Q4HRS PRN Symbicort 80-4.5 Mcg Inhaler (Budesonide/Formoterol Fumarate) 10.2 Gm Hfa.aer.ad 1 Puff IH BID Duoneb 0.5-3(2.5) Mg/3 Ml (Albuterol/Ipratropium) 3 Ml Ampul.neb 3 Ml NEB BID [Bisacodyl] 10 MG Supp.rect 10 Mg [place] PRN DAILY PRN Colace (Docusate Sodium) 100 Mg Capsule 100 Mg PO DAILY Humalog (Insulin Lispro) 100 Unit/1 Ml Insuln.pen 10 Units SQ TIDAC 30 Days Lantus Solostar (Insulin Glargine,Hum.rec.anlog) 100 Unit/1 Ml Insuln.pen 18 Units SQ DAILY10 30 Days [Pantoprazole] 40 MG Tablet.dr 40 Mg PO DAILYAC Alprazolam 0.25 Mg Tablet 0.25 Mg PO PRN Q8HRS PRN Cymbalta (Duloxetine Hcl) 30 Mg Capsule.dr 60 Mg PO DAILY Chlorhexidine Gluconate 473 Ml Mouthwash 473 Ml MM BID 7 Days Vitamin C (Ascorbate Calcium) 500 Mg Tablet 500 Mg PO DAILY 30 Days Slow Release Iron (Ferrous Sulfate) 250 Mg Tablet.er 250 Mg PO DAILY 30 Days Protonix (Pantoprazole Sodium) 40 Mg Granpkt. 40 Mg PO DAILY 30 Days Reported Metformin Hcl Er (Metformin Hcl) 500 Mg Tab.er.24h 1 Tab PO DAILY Namenda (Memantine Hcl) 10 Mg Tablet 1 Tab PO BID Losartan Potassium 100 Mg Tablet 100 Mg PO DAILY Spironolactone 25 Mg Tablet 1 Tab PO DAILY Ventolin Hfa Inhaler (Albuterol Sulfate) 18 Gm Hfa.aer.ad 2 Puff INH Q4HRS Requip (Ropinirole Hcl) 1 Mg Tablet 3 Mg PO DAILY Amlodipine Besylate 10 Mg Tablet 10 Mg PO DAILY Vitals/I & O Vital Sign - Last 24 Hours 01/14/19 01/14/19 01/14/19 01/14/19 11:00 11:38 14:54 15:00 Temp 97.8 98.2 97.8 98.2 Pulse 86 117 Resp 18 18 B/P (MAP) 105/75 (85) 141/67 (91) Pulse Ox 96 96 99 O2 Delivery Room Air Nasal Cannula Nasal Cannula Room Air O2 Flow Rate 3.0 3.0 01/14/19 01/14/19 01/14/19 01/14/19 15:13 15:30 19:00 20:00 Temp 98.6 98.6 Pulse 75 Resp 18 B/P (MAP) 133/72 (92) Pulse Ox 96 100 O2 Delivery Nasal Cannula Nasal Cannula Nasal Cannula Nasal Cannula O2 Flow Rate 3.0 3.0 3.0 3.0 01/14/19 01/14/19 01/14/19 01/14/19 20:25 20:27 21:52 23:00 Temp 98.0 98.0 Pulse 83 Resp 20 18 B/P (MAP) 120/68 (85) Pulse Ox 97 97 97 91 O2 Delivery Nasal Cannula Nasal Cannula Nasal Cannula Nasal Cannula O2 Flow Rate 3.0 3.0 3.0 3.0 01/14/19 01/15/19 01/15/19 01/15/19 23:17 02:43 03:00 03:31 Temp 97.8 97.8 Pulse 79 Resp 18 B/P (MAP) 129/80 (96) Pulse Ox 98 98 98 O2 Delivery Nasal Cannula Nasal Cannula Nasal Cannula Nasal Cannula O2 Flow Rate 3.0 3.0 3.0 3.0 01/15/19 01/15/19 01/15/19 01/15/19 06:42 07:00 07:23 07:42 Temp 98.1 98.1 Pulse 73 Resp 18 16 B/P (MAP) 142/75 (97) Pulse Ox 98 95 98 98 O2 Delivery Nasal Cannula Nasal Cannula Nasal Cannula Nasal Cannula O2 Flow Rate 3.0 3.0 3.0 3.0 01/15/19 08:43 Pulse 73 B/P (MAP) 142/75 Intake and Output 01/14/19 01/14/19 01/15/19 15:00 23:00 07:00 Intake Total 50 ml 687 ml Balance 50 ml 687 ml RADAMES MÉNDEZ MD Jan 15, 2019 10:50
[2019-01-15 11:00] VITALS: BP 147/85
[2019-01-15] MEDS: TPN PER PHARMACY MC PRN (11:48)
--- NOTE | 2019-01-15 11:48 | NUR ---
Pharmacy TPN Dosing Note S: ELLE LATHAM is a 72 year old F Currently receiving Central Continuous TPN started 12/23/18 B:Pertinent PMH: SBO Current diet: GI SOFT LABS: Sodium: 141 Potassium: 4.1 Chloride: 105 Calcium: 8.3 Corrected Calcium: 9.98 Magnesium: 1.8 CO2: 30 SCr: 0.6 Glucose: 122 Albumin: 1.9 AST: 34 ALT: 58 TPN FORMULA: TPN TYPE: Central Continuous AMINO ACIDS: 85 gm DEXTROSE: 260 gm LIPIDS: 40 gm SODIUM CHLORIDE: 40 mEq SODIUM ACETATE: - mEq SODIUM PHOSPHATE: - mmol POTASSIUM CHLORIDE: - mEq POTASSIUM ACETATE: 50 mEq POTASSIUM PHOSPHATE: 10 mmol MAGNESIUM: 22 mEq CALCIUM: 0 mEq INSULIN: 10 units MULTIPLE VITAMIN: 10 ml TRACE ELEMENTS: MTE5 1 ml(s) TPN PLAN: 01/15 no labs today per protocol, continue same TPN formula. Pt tolerating diet, TPN to be tapered off soon. Discharge pending for 01/17/19. R: Continue TPN Will monitor electrolytes, glucose, and tolerance to TPN. MANSI DIA [facility], 01/15/19 1141
[2019-01-15] MEDS: ONDANSETRON PF 4 MG/2 ML VIAL. IV PRN ×2 (12:40→21:07)
[2019-01-15 15:00] VITALS: BP 145/80
--- NOTE | 2019-01-15 15:53 | NUR ---
FACULTY CO-SIGN I have reviewed the documentation by director of emergency nursing Cydney Hickey:
[2019-01-15] MEDS: SIMETHICONE 80 MG TAB.CHEW PO PRN (17:50)
[2019-01-15 19:00] VITALS: BP 145/73
[2019-01-15] MEDS: ALBUTEROL SULFATE 2.5 MG/3 ML NEBU. NEB PRN (19:19)
[2019-01-15] MEDS: rOPINIRole 1 MG TABLET. PO SCH (21:08)
[2019-01-15] MEDS ORDERED: AMINO ACID IV SCH ×10 (22:00)
[2019-01-15] MEDS ORDERED: TOTAL PARENTERAL NUTRITION IV SCH ×10 (22:00)
[2019-01-15] MEDS ORDERED: [UNRECOGNIZED DRUG - OTHER] IV SCH ×10 (22:00)
[2019-01-15] MEDS ORDERED: DEXTROSE 70% IV SCH ×10 (22:00)
[2019-01-15 22:58] VITALS: BP 131/75
[2019-01-16] MEDS: IPRATRPIUM/ALBUTEROL 0.5/2.5MG 3 ML NEBU. NEB SCH ×6 (02:57→22:37)
[2019-01-16 03:00] VITALS: BP 155/82
[2019-01-16] MEDS: ACETAMINOPHEN 325 MG TABLET. PO PRN (03:12)
[2019-01-16] MEDS: INSULIN LISPRO 300 UNITS/3 ML INSULN.PEN. SQ SCH ×7 (05:46→18:00)
[2019-01-16] MEDS: HYDROcodone/APAP 5/325MG 1 TAB TABLET PO PRN ×3 (06:22→21:17)
[2019-01-16] MEDS: PANTOPRAZOLE 40 MG TABLET.DR. PO SCH (06:22)
[2019-01-16 07:00] VITALS: BP 162/85
[2019-01-16] MEDS: BUDESONIDE 0.5 MG/2 ML NEBU. NEB SCH ×2 (09:06→19:32)
[2019-01-16] MEDS: CALCIUM CARBONATE 500 MG TAB.CHEW PO PRN ×2 (09:18→13:20)
[2019-01-16] MEDS: MEMANTINE 10 MG TABLET. PO SCH (09:18)
[2019-01-16] MEDS: DULoxetine HCL 30 MG CAPSULE.DR PO SCH (09:18)
[2019-01-16] MEDS: CHLORHEXIDINE 0.12% 15 ML MOUTHWASH. MM SCH ×3 (09:18→21:16)
[2019-01-16] MEDS: ASCORBIC ACID 500 MG TABLET PO SCH (09:18)
[2019-01-16] MEDS: DOCUSATE SODIUM 100 MG CAPSULE. PO SCH (09:18)
[2019-01-16] MEDS: ENOXAPARIN 40 MG/0.4 ML SYRINGE. SQ SCH (09:19)
[2019-01-16] MEDS: NEOMY/BACITR/POLYMYXIN OINT PACKET. TP PRN (09:19)
[2019-01-16] MEDS: amLODIPine BESYLATE 10 MG TABLET PO SCH (09:19)
[2019-01-16] MEDS: FERROUS SULFATE 325 MG TABLET. PO SCH (09:24)
[2019-01-16] MEDS: SIMETHICONE 80 MG TAB.CHEW PO PRN ×3 (09:24→17:55)
[2019-01-16] MEDS: SPIRONOLACTONE 25 MG TABLET PO SCH (09:24)
[2019-01-16] MEDS: ALPRAZolam 0.25 MG TABLET PO PRN ×3 (09:24→21:16)
[2019-01-16] MEDS: INSULIN GLARGINE 300 UNITS/3 ML INSULN.PEN. SQ SCH (09:36)
--- NOTE | 2019-01-16 09:38 | PDOC ---
ABRAHAM WEBER APRN 01/16/19 0938: SURGICAL PROGRESS NOTE Subjective tolerating diet + stools no emesis Vital Signs Vital Signs Date Time Temp Pulse Resp B/P (MAP) Pulse Ox O2 Delivery O2 Flow Rate FiO2 01/16/19 09:08 96 Nasal Cannula 3.0 01/16/19 07:00 97.7 69 162/85 (110) 97.7 01/16/19 03:00 20 I&O Intake and Output 01/16/19 07:00 Intake Total 600 ml Balance 600 ml Intake Oral 600 ml # Voids 8 General: Alert, Cooperative Abdomen: Soft, Other (NTTP, incision healing ) Labs Laboratory Tests Test 01/14/19 11:59 01/15/19 00:26 01/15/19 06:12 01/15/19 12:02 Glucose (Fingerstick) 165 mg/dL (70-99) 132 mg/dL (70-99) 144 mg/dL (70-99) 126 mg/dL (70-99) Test 01/15/19 17:45 01/16/19 00:14 01/16/19 05:45 Glucose (Fingerstick) 157 mg/dL (70-99) 148 mg/dL (70-99) 172 mg/dL (70-99) Laboratory Tests Test 01/15/19 12:02 01/15/19 17:45 01/16/19 00:14 01/16/19 05:45 Glucose (Fingerstick) 126 mg/dL (70-99) 157 mg/dL (70-99) 148 mg/dL (70-99) 172 mg/dL (70-99) Assessment/Plan work toward dc--possible today FU 2-3 weeks with ELIZABETH Lira MD 01/16/19 1228: SURGICAL PROGRESS NOTE Assessment/Plan Agree with above ABRAHAM WEBER APRN Jan 16, 2019 09:38 ELIZABETH BUTCHER MD Jan 16, 2019 12:28
[2019-01-16] MEDS: TPN PER PHARMACY MC PRN (10:26)
--- NOTE | 2019-01-16 10:27 | NUR ---
Pharmacy TPN Dosing Note S: ELLE LATHAM is a 72 year old F Currently receiving Central Continuous TPN started 12/23/18 B:Pertinent PMH: SBO Height: 5 feet, 7 inches Weight: 85.943000 kg Current diet: GI SOFT LABS: Sodium: 141 Potassium: 4.1 Chloride: 105 Calcium: 8.3 Corrected Calcium: 9.98 Magnesium: 1.8 CO2: 30 SCr: 0.6 Glucose: 122 Albumin: 1.9 AST: 34 ALT: 58 TPN FORMULA: TPN TYPE: Central Continuous AMINO ACIDS: 85 gm DEXTROSE: 260 gm LIPIDS: 40 gm SODIUM CHLORIDE: 40 mEq SODIUM ACETATE: - mEq SODIUM PHOSPHATE: - mmol POTASSIUM CHLORIDE: - mEq POTASSIUM ACETATE: 50 mEq POTASSIUM PHOSPHATE: 10 mmol MAGNESIUM: 22 mEq CALCIUM: 0 mEq INSULIN: 10 units MULTIPLE VITAMIN: 10 ml TRACE ELEMENTS: MTE5 1 ml(s) TPN PLAN: 01/16 no labs today per protocol, continue same TPN formula. Pt tolerating diet but only ate 25% lunch and 0% dinner yesterday, TPN to be continued for now. Discharge pending for 01/17/19. R: Continue TPN as written above. Will monitor electrolytes, glucose, and tolerance to TPN. [facility], 01/16/19 0750
[2019-01-16 11:00] VITALS: BP 139/82
--- NOTE | 2019-01-16 12:56 | PDOC ---
PROGRESS NOTES Chief Complaint Chief Complaint Cecal ulceration - s/p X LAP - rt colon resection and hemorrhoidectomy 12/30 Anemia, colonic Avms Acute hypoxic respiratory failure, improving post op malnutrition VISHNU COPD Sepsis/Leukopenia - meropenem and vanco, ID following ileus History of Present Illness History of Present Illness plan DC in AM taper off the TPN, she has eaten > 50%, about 75% of breakfast today, cont PO intake discussed with surg team Vitals Vitals Vital Signs Date Time Temp Pulse Resp B/P (MAP) Pulse Ox O2 Delivery O2 Flow Rate FiO2 01/16/19 11:20 99 Nasal Cannula 3.0 01/16/19 11:00 72 20 139/82 (101) 01/16/19 07:00 97.7 97.7 Physical Exam Physical Exam GENERAL: Sitting in the chair, relaxed appearance, alert. HEENT: Oral cavity pink, dry NECK: Supple LUNGS: Diminished aeration bases, nonlabored HEART: S1, S2 ABDOMEN: Distended, NT to light palpation. + BS, dressing. mild serous fluid EXTREMITIES: LLE 1+ edema. no cyanosis SKIN: No rash. NEUROLOGIC: Alert, responding appropriately RUE-PICC (12/23) clean General: Alert, Cooperative Heart: Regular rate, Normal S1, Normal S2, No murmurs Lungs: Clear Abdomen: Soft, Other (NTTP, incision healing ) Extremities: No clubbing, No cyanosis, No edema Skin: No breakdown, No significant lesion Labs LABS Laboratory Tests Test 01/15/19 17:45 01/16/19 00:14 01/16/19 05:45 01/16/19 11:32 Glucose (Fingerstick) 157 mg/dL (70-99) 148 mg/dL (70-99) 172 mg/dL (70-99) 143 mg/dL (70-99) Comment Review of Relevant I have reviewed the following items abdifatah (where applicable) has been applied. Labs Laboratory Tests Test 01/15/19 00:26 01/15/19 06:12 01/15/19 12:02 01/15/19 17:45 Glucose (Fingerstick) 132 mg/dL (70-99) 144 mg/dL (70-99) 126 mg/dL (70-99) 157 mg/dL (70-99) Test 01/16/19 00:14 01/16/19 05:45 01/16/19 11:32 Glucose (Fingerstick) 148 mg/dL (70-99) 172 mg/dL (70-99) 143 mg/dL (70-99) Laboratory Tests Test 01/15/19 17:45 01/16/19 00:14 01/16/19 05:45 01/16/19 11:32 Glucose (Fingerstick) 157 mg/dL (70-99) 148 mg/dL (70-99) 172 mg/dL (70-99) 143 mg/dL (70-99) Microbiology 01/01/19 Blood Culture - Final, Complete NO GROWTH AFTER 5 DAYS 12/25/18 - Final, Complete 12/25/18 - Final, Complete 12/25/18 - Final, Complete 12/25/18 - Final, Complete 12/25/18 Gram Stain Evaluation - Final, Complete 12/25/18 Sputum Culture - Final, Complete 12/25/18 Sputum Result 1 - Final, Complete Medications Current Medications Sodium Chloride 1,000 ml @ 1,000 mls/hr 1X ONCE IV Last administered on at 13:52; Start 12/14/18 at 13:30; Stop 12/14/18 at 14:29; Status DC Amlodipine Besylate (Norvasc) 10 mg DAILY PO Last administered on 01/07/19at 08: 45; Start 12/14/18 at 17:00; Stop 01/12/19 at 08:54; Status DC Chlorhexidine Gluconate (Peridex) 15 ml BID MM Last administered on 01/16/19 09 :18; Start 12/14/18 at 21:00 Non-Formulary Medication (Albuterol Sulfate (Ventolin Hfa Inhaler)) 2 puff Q4HRS INH ; Start 12/14/18 at 20:00; Status UNV Ascorbic Acid (Vitamin C) 500 mg DAILY PO Last administered on 12/22/18at 10:30; Start 12/14/18 at 17:00; Stop 01/12/19 at 08:54; Status DC Duloxetine HCl (Cymbalta) 90 mg DAILY PO Last administered on 01/07/19at 08:48; Start 12/14/18 at 17:00; Stop 01/10/19 at 10:18; Status DC Ferrous Sulfate (Feosol) 325 mg DAILYWBKFT PO Last administered on 12/22/18 10: 30; Start 12/14/18 at 17:00; Stop 01/12/19 at 08:54; Status DC Losartan Potassium (Cozaar) 100 mg DAILY PO Last administered on 12/22/18 10:29 ; Start 12/14/18 at 17:00; Stop 01/12/19 at 08:54; Status DC Memantine (Namenda) 10 mg BID PO Last administered on 01/07/19at 08:45; Start at 21:00; Stop 01/10/19 at 10:18; Status DC Pantoprazole Sodium (Protonix) 40 mg DAILYAC PO Last administered on 12/22/18 05:28; Start 12/14/18 at 17:00; Stop 12/24/18 at 09:25; Status DC Ropinirole HCl (Requip) 3 mg QHS PO Last administered on 01/07/19 20:26; Start 12/14/18 at 21:00; Stop 01/12/19 at 08:54; Status DC Spironolactone (Aldactone) 25 mg DAILY PO Last administered on 01/07/19 08:45 ; Start 12/14/18 at 17:00; Stop 01/12/19 at 08:54; Status DC Albuterol Sulfate (Ventolin Neb Soln) 2.5 mg Q4HRS NEB Last administered on 06:52; Start 12/14/18 at 20:00; Stop 01/02/19 at 07:24; Status DC Sodium Chloride 1,000 ml @ 80 mls/hr [id number] IV Last administered on 12/23/18 15:25; Start 12/14/18 at 17:15; Stop 12/23/18 at 21:59; Status DC Acetaminophen (Tylenol) 650 mg PRN Q6HRS PRN PO Pain Last administered on 21:27; Start 12/15/18 at 04:45; Stop 12/26/18 at 21:07; Status DC Polyethylene Glycol (miraLAX Powder BULK BOTTLE) 238 gm 1X ONCE PO Last administered on 12/15/18at 12:48; Start 12/15/18 at 12:00; Stop 12/15/18 at 12:01 ; Status DC Ondansetron HCl (Zofran) 4 mg PRN Q6HRS PRN IV NAUSEA/VOMITING; Start 12/16/18 at 07:00; Stop 12/17/18 at 06:59; Status DC Fentanyl Citrate (Fentanyl 2ml Vial) 25 mcg PRN Q5MIN PRN IV MILD PAIN; Start 12/16/18 at 07:00; Stop 12/16/18 at 16:33; Status DC Fentanyl Citrate (Fentanyl 2ml Vial) 50 mcg PRN Q5MIN PRN IV MODERATE TO SEVERE PAIN; Start 12/16/18 at 07:00; Stop 12/16/18 at 16:33; Status DC Morphine Sulfate (Morphine Sulfate) 1 mg PRN Q10MIN PRN IV SEVERE PAIN; Start 12/16/18 at 07:00; Stop 12/17/18 at 06:59; Status DC Ringer's Solution 1,000 ml @ 30 mls/hr Q24H IV Last administered on 12/16/18at 13:00; Start 12/16/18 at 07:00; Stop 12/16/18 at 18:59; Status DC Lidocaine HCl (Xylocaine-Mpf 1% 2ml Vial) 2 ml PRN 1X PRN ID IV START; Start at 07:00; Stop 12/17/18 at 06:59; Status DC Hydromorphone HCl (Dilaudid) 0.5 mg PRN Q10MIN PRN IV SEV PAIN, Second choice; Start 12/16/18 at 07:00; Stop 12/17/18 at 06:59; Status DC Prochlorperazine Edisylate (Compazine) 5 mg PACU PRN PRN IV NAUSEA, MRX1; Start 12/16/18 at 07:00; Stop 12/17/18 at 06:59; Status DC Midazolam HCl (Versed) 2 mg PRN 1X PRN IV PRIOR TO PROCEDURE; Start 12/16/18 at 07:15; Stop 12/17/18 at 07:14; Status DC Fentanyl Citrate (Fentanyl 2ml Vial) 25 mcg PRN Q5MIN PRN IV X 2 DOSES FOR PAIN ; Start 12/16/18 at 07:15; Stop 12/16/18 at 16:33; Status DC Fentanyl Citrate (Fentanyl 2ml Vial) 50 mcg PRN Q5MIN PRN IV X 2 DOSES FOR PAIN ; Start 12/16/18 at 07:15; Stop 12/16/18 at 16:34; Status DC Ringer's Solution 1,000 ml @ 125 mls/hr Q8H IV ; Start 12/16/18 at 07:13; Stop 12/16/18 at 19:12; Status DC Lidocaine HCl (Xylocaine-Mpf 1% 2ml Vial) 2 ml 1X PRN PRN ID IV START; Start at 07:15; Stop 12/17/18 at 07:14; Status DC Propofol 40 ml @ As Directed STK-MED ONCE IV ; Start 12/16/18 at 13:58; Stop at 14:00; Status DC Prochlorperazine Edisylate (Compazine) 5 mg PACU PRN PRN IV NAUSEA, MRX1; Start 12/17/18 at 07:00; Stop 12/18/18 at 06:59; Status DC Hydromorphone HCl (Dilaudid) 0.5 mg PRN Q10MIN PRN IV SEV PAIN, Second choice; Start 12/17/18 at 07:00; Stop 12/18/18 at 06:59; Status DC Lidocaine HCl (Xylocaine-Mpf 1% 2ml Vial) 2 ml PRN 1X PRN ID IV START; Start at 07:00; Stop 12/18/18 at 06:59; Status DC Ringer's Solution 1,000 ml @ 30 mls/hr Q24H IV Last administered on 12/17/18at 10:34; Start 12/17/18 at 07:00; Stop 12/17/18 at 18:59; Status DC Morphine Sulfate (Morphine Sulfate) 1 mg PRN Q10MIN PRN IV SEVERE PAIN; Start 12/17/18 at 07:00; Stop 12/18/18 at 06:59; Status DC Fentanyl Citrate (Fentanyl 2ml Vial) 50 mcg PRN Q5MIN PRN IV MODERATE TO SEVERE PAIN Last administered on 12/17/18at 11:13; Start 12/17/18 at 07:00; Stop at 06:59; Status DC Fentanyl Citrate (Fentanyl 2ml Vial) 25 mcg PRN Q5MIN PRN IV MILD PAIN; Start 12/17/18 at 07:00; Stop 12/18/18 at 06:59; Status DC Ondansetron HCl (Zofran) 4 mg PRN Q6HRS PRN IV NAUSEA/VOMITING; Start 12/17/18 at 07:00; Stop 12/18/18 at 06:59; Status DC Propofol 20 ml @ As Directed STK-MED ONCE IV ; Start 12/17/18 at 07:21; Stop 12/17 at 07:23; Status DC Albuterol Sulfate (Ventolin Neb Soln) 2.5 mg 1X ONCE NEB ; Start 12/17/18 at 07: 30; Stop 12/17/18 at 07:31; Status DC Lidocaine HCl (Lidocaine Pf 2% Vial) 5 ml STK-MED ONCE .ROUTE ; Start 12/17/18 at 07:21; Stop 12/17/18 at 07:23; Status DC Succinylcholine Chloride (Anectine) 200 mg STK-MED ONCE .ROUTE ; Start 12/17/18 at 07:21; Stop 12/17/18 at 07:23; Status DC Rocuronium [place] (Zemuron) 50 mg STK-MED ONCE .ROUTE ; Start 12/17/18 at 07:21 ; Stop 12/17/18 at 07:23; Status DC Fentanyl Citrate (Fentanyl 2ml Vial) 100 mcg STK-MED ONCE .ROUTE ; Start at 07:21; Stop 12/17/18 at 07:24; Status DC Cefazolin Sodium/ Dextrose 50 ml @ 100 mls/hr 1X ONCE IV Last administered on 12/17/18at 08:07; Start 12/17/18 at 07:45; Stop 12/17/18 at 08:18; Status DC Bupivacaine HCl/ Epinephrine Bitart (Sensorcain-Mpf Epi 0.5%-1:585013) 30 ml STK -MED ONCE .ROUTE Last administered on 12/17/18at 08:34; Start 12/17/18 at 07:46; Stop 12/17/18 at 07:49; Status DC Neomycin/ Polymyxin/ Bacitracin (Triple Antibiotic Ointment) 1 pkt STK-MED ONCE TP Last administered on 12/17/18at 10:07; Start 12/17/18 at 07:46; Stop 12/17/18 at 07:49; Status DC Neomycin/ Polymyxin/ Bacitracin (Triple Antibiotic Ointment) 1 pkt STK-MED ONCE TP Last administered on 12/17/18at 10:07; Start 12/17/18 at 07:46; Stop 12/17/18 at 07:49; Status DC Neomycin/ Polymyxin/ Bacitracin (Triple Antibiotic Ointment) 1 pkt STK-MED ONCE TP ; Start 12/17/18 at 07:47; Stop 12/17/18 at 07:49; Status DC Dexamethasone Sodium Phosphate (Decadron) 20 mg STK-MED ONCE .ROUTE ; Start 12/17 at 07:54; Stop 12/17/18 at 07:56; Status DC Hydrocortisone Sodium Succinate (Solu-CORTEF) 100 mg STK-MED ONCE .ROUTE ; Start 12/17/18 at 07:54; Stop 12/17/18 at 07:56; Status DC Desflurane (Suprane) 90 ml STK-MED ONCE IH ; Start 12/17/18 at 07:54; Stop at 07:56; Status DC Neostigmine Methylsulfate (Bloxiverz) 10 mg STK-MED ONCE .ROUTE ; Start 12/17/18 at 08:21; Stop 12/17/18 at 08:24; Status DC Glycopyrrolate (Robinul) 1 mg STK-MED ONCE .ROUTE ; Start 12/17/18 at 08:21; Stop 12/17/18 at 08:24; Status DC Phenylephrine HCl (Bogdan-Synephrine Inj) 10 mg STK-MED ONCE .ROUTE ; Start at 08:23; Stop 12/17/18 at 08:26; Status DC Desflurane (Suprane) 60 ml STK-MED ONCE IH ; Start 12/17/18 at 09:23; Stop at 09:26; Status DC Bupivacaine HCl/ Epinephrine Bitart (Sensorcain-Mpf Epi 0.5%-1:110093) 30 ml STK -MED ONCE .ROUTE Last administered on 12/17/18at 10:06; Start 12/17/18 at 09:41; Stop 12/17/18 at 09:43; Status DC Morphine Sulfate (Morphine Sulfate) 2 mg PRN Q2HR PRN IV PAIN Last administered on 12/25/18 09:26; Start 12/17/18 at 10:15; Stop 12/25/18 at 17:54; Status DC Ketorolac Tromethamine (Toradol 15mg Vial) 15 mg Q6HRS IV Last administered on 12/18/18 05:39; Start 12/17/18 at 12:00; Stop 12/18/18 at 10:00; Status DC Artificial Tears (Artificial Tears) 1 drop PRN Q15MIN PRN OU DRY EYE Last administered on 12/20/18 21:28; Start 12/18/18 at 08:00 Docusate Sodium (Colace) 100 mg DAILY PO Last administered on 01/07/19 08:45; Start 12/18/18 at 10:00; Stop 01/12/19 at 08:54; Status DC Throat Lozenges (Cepacol Sore Throat Lozenge) 1 kristyn PRN Q2HRS PRN PO SORE THROAT Last administered on 01/15/19 08:45; Start 12/18/18 at 14:00 Enoxaparin Sodium (Lovenox 40mg Syringe) 40 mg Q24H SQ Last administered on 01/16 09:19; Start 12/19/18 at 09:00 Ondansetron HCl (Zofran) 4 mg PRN Q6HRS PRN IV NAUSEA/VOMITING Last administered on 01/15/19 21:07; Start 12/19/18 at 11:30 Insulin Human Lispro (HumaLOG) 0-5 UNITS TIDWMEALS SQ Last administered on 12/30 18:23; Start 12/19/18 at 17:00; Stop 12/31/18 at 00:05; Status DC Dextrose (Dextrose 50%-Water Syringe) 12.5 gm PRN Q15MIN PRN IV SEE COMMENTS; Start 12/19/18 at 16:45 Levofloxacin/ Dextrose 100 ml @ 100 mls/hr 1X ONCE IV Last administered on 20:56; Start 12/19/18 at 21:00; Stop 12/19/18 at 21:59; Status DC Cefepime HCl (Maxipime) 2 gm Q12HR IVP Last administered on 12/29/18 10:02; Start 12/21/18 at 10:00; Stop 12/29/18 at 10:37; Status DC Sodium Chloride 1,000 ml @ 125 mls/hr 1X ONCE IV Last administered on at 10:43; Start 12/21/18 at 09:45; Stop 12/21/18 at 17:44; Status DC Calcium Carbonate/ Glycine (Tums) 500 mg PRN AFTMEALHC PRN PO INDIGESTION Last administered on 01/13/19at 03:22; Start 12/21/18 at 12:15; Stop 01/13/19 at 08:50 ; Status DC Lorazepam (Ativan) 1 mg 1X ONCE IV Last administered on 12/21/18at 17:50; Start 12/21/18 at 17:30; Stop 12/21/18 at 17:31; Status DC Albuterol Sulfate (Ventolin Neb Soln) 2.5 mg PRN Q2HRS PRN NEB SHORTNESS OF BREATH Last administered on 01/15/19 19:19; Start 12/21/18 at 17:30 Nicotine (Nicoderm Cq 14mg) 1 patch PRN DAILY PRN TD SMOKING CESSATION Last administered on 12/26/18at 09:59; Start 12/21/18 at 19:30 Lorazepam (Ativan) 1 mg 1X ONCE IV Last administered on 12/21/18at 23:45; Start 12/21/18 at 23:45; Stop 12/21/18 at 23:46; Status DC Lorazepam (Ativan) 1 mg PRN Q4HRS PRN IV ANXIETY / AGITATION Last administered on 12/22/18at 11:15; Start 12/21/18 at 23:30; Stop 12/22/18 at 14:42; Status DC Sodium Chloride 1,000 ml @ 250 mls/hr 1X ONCE IV Last administered on at 09:15; Start 12/22/18 at 09:15; Stop 12/22/18 at 13:14; Status DC Lidocaine/Sodium Bicarbonate (Buffered Lidocaine 1%) 3 ml STK-MED ONCE .ROUTE ; Start 12/23/18 at 10:33; Stop 12/23/18 at 10:35; Status DC Lidocaine/Sodium Bicarbonate (Buffered Lidocaine 1%) 3 ml 1X ONCE INJ Last administered on 12/23/18at 11:24; Start 12/23/18 at 11:00; Stop 12/23/18 at 11:10; Status DC Info (Tpn Per Pharmacy) 1 each PRN DAILY PRN MC SEE COMMENTS Last administered on 01/16/19 10:26; Start 12/23/18 at 14:00 Sodium Chloride 90 meq/Potassium Chloride 50 meq/ Potassium Phosphate 20.4 mmol/ Magnesium Sulfate 18 meq/ Calcium Gluconate 5 meq/ Multivitamins 10 ml/Chromium / Copper/Manganese/ Seleni/Zn 1 ml/ Total Parenteral Nutrition/Amino Acids/ Dextrose/ Fat Emulsion Intravenous 1,512 ml @ 63 mls/hr TPN CONT IV Last administered on 12/23/18at 21:37; Start 12/23/18 at 22:00; Stop 12/24/18 at 21:59; Status DC Alprazolam (Xanax) 0.25 mg PRN BID PRN PO ANXIETY / AGITATION Last administered on 12/25/18at 09:25; Start 12/23/18 at 23:00; Stop 12/25/18 at 17:54; Status DC Lorazepam (Ativan) 1 mg PRN Q4HRS PRN IV ANXIETY / AGITATION Last administered on 12/24/18 09:21; Start 12/24/18 at 08:45; Stop 12/24/18 at 10:19; Status DC Pantoprazole Sodium (PROTONIX VIAL for IV PUSH) 40 mg DAILYAC IVP Last administered on 01/14/19at 05:56; Start 12/24/18 at 09:30; Stop 01/14/19 at 09:35; Status DC Lorazepam (Ativan) 0.5 mg PRN Q4HRS PRN IV ANXIETY / AGITATION Last administered on 12/25/18at 04:47; Start 12/24/18 at 10:30; Stop 12/25/18 at 10:22; Status DC Sodium Chloride 45 meq/Sodium Acetate 45 meq/ Potassium Chloride 50 meq/ Potassium Phosphate 20.4 mmol/Magnesium Sulfate 18 meq/ Calcium Gluconate 5 meq / Multivitamins 10 ml/Chromium/ Copper/Manganese/ Seleni/Zn 1 ml/ Total Parenteral Nutrition/Amino Acids/Dextrose/ Fat Emuls... 1,512 ml @ 63 mls/hr TPN CONT IV Last administered on 12/24/18at 21:57; Start 12/24/18 at 22:00; Stop 12/25/18 at 21:59; Status DC Phenyleph/Shark Oil/Min Oil/Petrol (Preparation H) 1 ranjith PRN Q4HRS PRN RC RECTAL PAIN; Start 12/24/18 at 12:45; Stop 12/25/18 at 20:20; Status DC Sodium Chloride 45 meq/Sodium Acetate 45 meq/ Potassium Chloride 50 meq/ Potassium Phosphate 20.4 mmol/Magnesium Sulfate 18 meq/ Calcium Gluconate 5 meq / Multivitamins 10 ml/Chromium/ Copper/Manganese/ Seleni/Zn 1 ml/ Total Parenteral Nutrition/Amino Acids/Dextrose/ Fat Emuls... 1,512 ml @ 63 mls/hr TPN CONT IV Last administered on 12/26/18at 00:34; Start 12/25/18 at 22:00; Stop 12/26/18 at 21:59; Status DC Neomycin/ Polymyxin/ Bacitracin (Triple Antibiotic Ointment) 1 pkt PRN TID PRN TP skin around rectum, post op Last administered on 01/16/19at 09:19; Start at 14:30 Alprazolam (Xanax) 0.25 mg PRN Q8HRS PRN PO ANXIETY / AGITATION Last administered on 01/07/19at 13:01; Start 12/25/18 at 18:00; Stop 01/12/19 at 08:54 ; Status DC Morphine Sulfate (Morphine Sulfate) 2 mg PRN Q6HRS PRN IV PAIN Last administered on 12/29/18at 21:47; Start 12/25/18 at 18:00; Stop 12/30/18 at 03:17 ; Status DC Guaifenesin (Mucinex) 600 mg BID PO Last administered on 12/26/18at 21:26; Start 12/26/18 at 11:00; Stop 01/12/19 at 08:54; Status DC Guaifenesin (Mucinex) 600 mg BID PO ; Start 12/26/18 at 11:00; Status UNV Guaifenesin/ Codeine Phosphate (Robitussin Ac) 5 ml PRN Q6HRS PRN PO COUGH Last administered on 12/26/18at 10:41; Start 12/26/18 at 10:30; Stop 01/13/19 at 08:50; Status DC Sodium Acetate 90 meq/Potassium Chloride 50 meq/ Potassium Phosphate 13.6 mmol/ Magnesium Sulfate 18 meq/ Calcium Gluconate 5 meq/ Multivitamins 10 ml/Chromium / Copper/Manganese/ Seleni/Zn 1 ml/ Total Parenteral Nutrition/Amino Acids/ Dextrose/ Fat Emulsion Intravenous 1,512 ml @ 63 mls/hr TPN CONT IV Last administered on 12/26/18at 21:37; Start 12/26/18 at 22:00; Stop 12/28/18 at 01:28 ; Status DC Benzocaine (Hurricaine One) 1 spray 1X ONCE MM ; Start 12/26/18 at 19:15; Stop 12/26/18 at 19:16; Status DC Acetaminophen (Tylenol) 650 mg PRN Q6HRS PRN PO MILD PAIN / TEMP Last administered on 01/16/19at 03:12; Start 12/26/18 at 21:00 Benzocaine (Hurricaine One) 1 spray 1X ONCE MM Last administered on 12/27/18at 09:00; Start 12/27/18 at 09:15; Stop 12/27/18 at 09:16; Status DC Sodium Acetate 90 meq/Potassium Chloride 50 meq/ Potassium Phosphate 13.6 mmol/ Magnesium Sulfate 15 meq/ Calcium Gluconate 5 meq/ Multivitamins 10 ml/Chromium / Copper/Manganese/ Seleni/Zn 1 ml/ Total Parenteral Nutrition/Amino Acids/ Dextrose/ Fat Emulsion Intravenous 1,512 ml @ 63 mls/hr TPN CONT IV ; Start at 22:00; Stop 12/28/18 at 21:59; Status Cancel Sodium Acetate 90 meq/Potassium Chloride 50 meq/ Potassium Phosphate 13.6 mmol/ Magnesium Sulfate 15 meq/ Calcium Gluconate 5 meq/ Multivitamins 10 ml/Chromium / Copper/Manganese/ Seleni/Zn 1 ml/ Total Parenteral Nutrition/Amino Acids/ Dextrose/ Fat Emulsion Intravenous 1,512 ml @ 63 mls/hr TPN CONT IV ; Start at 22:00; Stop 12/28/18 at 21:59; Status DC Lidocaine/Sodium Bicarbonate (Buffered Lidocaine 1%) 3 ml 1X ONCE INJ ; Start 12/28/18 at 09:00; Stop 12/28/18 at 09:01; Status Cancel Benzocaine (Hurricaine One) 1 spray 1X ONCE MM Last administered on 12/28/18at 09:32; Start 12/28/18 at 09:30; Stop 12/28/18 at 09:33; Status DC Sodium Acetate 90 meq/Potassium Chloride 50 meq/ Potassium Phosphate 13.6 mmol/ Magnesium Sulfate 15 meq/ Calcium Gluconate 5 meq/ Multivitamins 10 ml/Chromium / Copper/Manganese/ Seleni/Zn 1 ml/ Total Parenteral Nutrition/Amino Acids/ Dextrose/ Fat Emulsion Intravenous 1,512 ml @ 63 mls/hr TPN CONT IV Last administered on 12/28/18at 22:06; Start 12/28/18 at 22:00; Stop 12/29/18 at 21:59 ; Status DC Iohexol (Omnipaque 300 Mg/ml) 400 ml 1X ONCE PO Last administered on at 08:15; Start 12/29/18 at 06:45; Stop 12/29/18 at 06:46; Status DC Info (CONTRAST GIVEN -- Rx MONITORING) 1 each PRN DAILY PRN MC SEE COMMENTS; Start 12/29/18 at 06:45; Stop 12/31/18 at 06:44; Status DC Iohexol (Omnipaque 300 Mg/ml) 400 ml 1X ONCE PO ; Start 12/29/18 at 07:00; Stop 12/29/18 at 07:03; Status DC Info (CONTRAST GIVEN -- Rx MONITORING) 1 each PRN DAILY PRN MC SEE COMMENTS; Start 12/29/18 at 07:15; Stop 12/31/18 at 07:14; Status DC Meropenem 500 mg/ Sodium Chloride 50 ml @ 100 mls/hr Q6HRS IV Last administered on 01/07/19at 06:05; Start 12/29/18 at 12:00; Stop 01/07/19 at 08:34 ; Status DC Multi-Ingredient Ointment (Analgesic [place]) 1 ranjith PRN QID PRN TP MUSCLE PAIN Last administered on 01/15/19at 08:48; Start 12/29/18 at 13:00 Sodium Acetate 90 meq/Potassium Chloride 50 meq/ Potassium Phosphate 13.6 mmol/ Magnesium Sulfate 15 meq/ Calcium Gluconate 5 meq/ Multivitamins 10 ml/Chromium / Copper/Manganese/ Seleni/Zn 1 ml/ Total Parenteral Nutrition/Amino Acids/ Dextrose/ Fat Emulsion Intravenous 1,512 ml @ 63 mls/hr TPN CONT IV Last administered on 12/29/18at 21:40; Start 12/29/18 at 22:00; Stop 12/30/18 at 21:59 ; Status DC Morphine Sulfate (Morphine Sulfate) 2 mg PRN Q4HRS PRN IV SEVERE PAIN Last administered on 12/30/18at 19:50; Start 12/30/18 at 03:30; Stop 12/30/18 at 21:33 ; Status DC Propofol 20 ml @ As Directed STK-MED ONCE IV ; Start 12/30/18 at 12:51; Stop at 12:52; Status DC Dexamethasone Sodium Phosphate (Decadron) 20 mg STK-MED ONCE .ROUTE ; Start at 12:51; Stop 12/30/18 at 12:52; Status DC Lidocaine HCl (Lidocaine Pf 2% Vial) 5 ml STK-MED ONCE .ROUTE ; Start 12/30/18 at 12:51; Stop 12/30/18 at 12:52; Status DC Ondansetron HCl (Zofran) 4 mg STK-MED ONCE .ROUTE ; Start 12/30/18 at 12:51; Stop 12/30/18 at 12:52; Status DC Rocuronium [place] (Zemuron) 50 mg STK-MED ONCE .ROUTE ; Start 12/30/18 at 12:51 ; Stop 12/30/18 at 12:52; Status DC Succinylcholine Chloride (Anectine) 200 mg STK-MED ONCE .ROUTE ; Start 12/30/18 at 12:51; Stop 12/30/18 at 12:52; Status DC Fentanyl Citrate (Fentanyl 5ml Vial) 250 mcg STK-MED ONCE .ROUTE ; Start at 13:49; Stop 12/30/18 at 13:50; Status DC Sodium Chloride 90 meq/Potassium Chloride 50 meq/ Potassium Phosphate 13.6 mmol/ Magnesium Sulfate 15 meq/ Multivitamins 10 ml/Chromium/ Copper/Manganese/ Seleni /Zn 1 ml/ Total Parenteral Nutrition/Amino Acids/Dextrose/ Fat Emulsion Intravenous 1,512 ml @ 63 mls/hr TPN CONT IV Last administered on 12/30/18at 23:43; Start 12/30/18 at 22:00; Stop 12/31/18 at 21:59; Status DC Vasopressin (Vasostrict) 20 unit STK-MED ONCE .ROUTE ; Start 12/30/18 at 15:00; Stop 12/30/18 at 15:01; Status DC Sodium Chloride (SODIUM CHLORIDE 20ml) 20 ml STK-MED ONCE IJ ; Start 12/30/18 at 15:01; Stop 12/30/18 at 15:02; Status DC Albumin Human 500 ml @ As Directed STK-MED ONCE IV ; Start 12/30/18 at 15:01; Stop 12/30/18 at 15:02; Status DC Glycopyrrolate (Robinul) 1 mg STK-MED ONCE .ROUTE ; Start 12/30/18 at 15:21; Stop 12/30/18 at 15:22; Status DC Neostigmine Methylsulfate (Bloxiverz) 10 mg STK-MED ONCE .ROUTE ; Start at 15:21; Stop 12/30/18 at 15:22; Status DC Albuterol/ Ipratropium (Duoneb) 3 ml STK-MED ONCE .ROUTE ; Start 12/30/18 at 15: 45; Stop 12/30/18 at 15:46; Status DC Fentanyl Citrate (Fentanyl 2ml Vial) 100 mcg STK-MED ONCE .ROUTE ; Start at 16:56; Stop 12/30/18 at 16:57; Status DC Ondansetron HCl (Zofran) 4 mg PRN Q6HRS PRN IV NAUSEA/VOMITING; Start 12/30/18 at 17:15; Stop 12/30/18 at 21:35; Status DC Fentanyl Citrate (Fentanyl 2ml Vial) 25 mcg PRN Q5MIN PRN IV MILD PAIN Last administered on 12/30/18at 17:15; Start 12/30/18 at 17:15; Stop 12/30/18 at 21:35 ; Status DC Fentanyl Citrate (Fentanyl 2ml Vial) 50 mcg PRN Q5MIN PRN IV MODERATE TO SEVERE PAIN Last administered on 12/30/18at 17:57; Start 12/30/18 at 17:15; Stop 12/30/18 at 21:35; Status DC Morphine Sulfate (Morphine Sulfate) 1 mg PRN Q10MIN PRN IV SEVERE PAIN; Start 12/30/18 at 17:15; Stop 12/31/18 at 17:14; Status DC Ringer's Solution 1,000 ml @ 30 mls/hr Q24H IV Last administered on 12/30/18at 18:09; Start 12/30/18 at 17:10; Stop 12/30/18 at 21:33; Status DC Lidocaine HCl (Xylocaine-Mpf 1% 2ml Vial) 2 ml 1X PRN PRN ID IV START; Start at 17:15; Stop 12/30/18 at 21:35; Status DC Hydromorphone HCl (Dilaudid) 0.5 mg PRN Q10MIN PRN IV SEV PAIN, Second choice; Start 12/30/18 at 17:15; Stop 12/30/18 at 21:35; Status DC Prochlorperazine Edisylate (Compazine) 5 mg PACU PRN PRN IV NAUSEA, MRX1; Start 12/30/18 at 17:15; Stop 12/30/18 at 21:35; Status DC Albumin Human 100 ml @ 100 mls/hr 1X ONCE IV Last administered on 12/30/18at 22:00; Start 12/30/18 at 22:00; Stop 12/30/18 at 22:59; Status DC Ringer's Solution 500 ml @ 500 mls/hr 1X ONCE IV Last administered on at 22:00; Start 12/30/18 at 22:00; Stop 12/30/18 at 22:59; Status DC Ringer's Solution 1,000 ml @ 100 mls/hr Q10H IV Last administered on at 00:58; Start 12/30/18 at 23:00; Stop 01/01/19 at 09:30; Status DC Hydromorphone HCl (Dilaudid) 0.5 mg PRN Q2HR PRN IV MODERATE PAIN Last administered on 01/04/19at 10:08; Start 12/30/18 at 21:30; Stop 01/04/19 at 15:05 ; Status DC Hydromorphone HCl (Dilaudid) 1 mg PRN Q2HR PRN IV SEVERE PAIN Last administered on 01/04/19at 04:51; Start 12/30/18 at 21:30; Stop 01/04/19 at 15:05 ; Status DC Insulin Human Lispro (HumaLOG) 0-5 UNITS Q6HRS SQ Last administered on at 06:42; Start 12/31/18 at 00:30; Stop 01/06/19 at 12:47; Status DC Sodium Chloride 90 meq/Potassium Chloride 30 meq/ Potassium Phosphate 13.6 mmol/ Magnesium Sulfate 15 meq/ Calcium Gluconate 5 meq/ Multivitamins 10 ml/Chromium / Copper/Manganese/ Seleni/Zn 1 ml/ Total Parenteral Nutrition/Amino Acids/ Dextrose/ Fat Emulsion Intravenous 1,512 ml @ 63 mls/hr TPN CONT IV Last administered on 12/31/18at 21:58; Start 12/31/18 at 22:00; Stop 01/01/19 at 21:59 ; Status DC Sodium Chloride 90 meq/Potassium Chloride 30 meq/ Potassium Phosphate 13.6 mmol/ Magnesium Sulfate 15 meq/ Calcium Gluconate 5 meq/ Multivitamins 10 ml/Chromium / Copper/Manganese/ Seleni/Zn 1 ml/ Total Parenteral Nutrition/Amino Acids/ Dextrose/ Fat Emulsion Intravenous 1,512 ml @ 63 mls/hr TPN CONT IV Last administered on 01/01/19at 21:09; Start 01/01/19 at 22:00; Stop 01/02/19 at 21:59 ; Status DC Vancomycin HCl (Vanco Per Pharmacy) 1 each PRN DAILY PRN MC SEE COMMENTS Last administered on 01/03/19at 10:18; Start 01/01/19 at 11:15; Stop 01/03/19 at 11:23 ; Status DC Vancomycin HCl 2 gm/Sodium Chloride 500 ml @ 250 mls/hr ONCE ONCE IV Last administered on 01/01/19at 12:28; Start 01/01/19 at 12:00; Stop 01/01/19 at 13:59 ; Status DC Vancomycin HCl 1.25 gm/Sodium Chloride 250 ml @ 166.667 mls/hr Q24H IV ; Start 01/01/19 at 12:00; Status Cancel Vancomycin HCl (Vancomycin Trough Level) 1 each 1X ONCE MC ; Start 01/03/19 at 11:30; Stop 01/03/19 at 11:31; Status Cancel Vancomycin HCl 1.25 gm/Sodium Chloride 250 ml @ 166.667 mls/hr Q24H IV Last administered on 01/02/19at 13:04; Start 01/02/19 at 12:00; Stop 01/03/19 at 11:23 ; Status DC Albuterol/ Ipratropium (Duoneb) 3 ml 1X ONCE NEB Last administered on at 08:19; Start 01/02/19 at 07:30; Stop 01/02/19 at 07:31; Status DC Albuterol/ Ipratropium (Duoneb) 3 ml Q4HRS NEB Last administered on 01/16/19at 11 :19; Start 01/02/19 at 12:00 Furosemide (Lasix) 20 mg 1X ONCE IVP Last administered on 01/02/19at 07:36; Start 01/02/19 at 07:30; Stop 01/02/19 at 07:31; Status DC Sodium Chloride 90 meq/Potassium Chloride 30 meq/ Potassium Phosphate 13.6 mmol/ Magnesium Sulfate 15 meq/ Calcium Gluconate 5 meq/ Multivitamins 10 ml/Chromium / Copper/Manganese/ Seleni/Zn 1 ml/ Total Parenteral Nutrition/Amino Acids/ Dextrose/ Fat Emulsion Intravenous 1,512 ml @ 63 mls/hr TPN CONT IV Last administered on 01/02/19at 21:20; Start 01/02/19 at 22:00; Stop 01/03/19 at 21:59 ; Status DC Sodium Chloride 90 meq/Potassium Chloride 30 meq/ Potassium Phosphate 13.6 mmol/ Magnesium Sulfate 15 meq/ Multivitamins 10 ml/Chromium/ Copper/Manganese/ Seleni /Zn 1 ml/ Insulin Human Regular 10 unit/ Total Parenteral Nutrition/Amino Acids/ Dextrose/ Fat Emulsion Intravenous 1,512 ml @ 63 mls/hr TPN CONT IV Last administered on 01/03/19at 22:07; Start 01/03/19 at 22:00; Stop 01/04/19 at 21:59 ; Status DC Sodium Chloride 90 meq/Potassium Chloride 30 meq/ Potassium Phosphate 13.6 mmol/ Magnesium Sulfate 15 meq/ Multivitamins 10 ml/Chromium/ Copper/Manganese/ Seleni /Zn 1 ml/ Insulin Human Regular 10 unit/ Total Parenteral Nutrition/Amino Acids/ Dextrose/ Fat Emulsion Intravenous 1,512 ml @ 63 mls/hr TPN CONT IV Last administered on 01/04/19at 22:11; Start 01/04/19 at 22:00; Stop 01/05/19 at 21:59 ; Status DC Hydromorphone HCl (Dilaudid) 0.5 mg PRN Q6HRS PRN IV MODERATE TO SEVERE PAIN Last administered on 01/14/19at 14:54; Start 01/04/19 at 15:15 Hydromorphone HCl (Dilaudid) 1 mg PRN Q6HRS PRN IV SEVERE PAIN Last administered on 01/05/19at 02:18; Start 01/04/19 at 15:15; Stop 01/12/19 at 08:54 ; Status DC Dextrose (Dextrose 50%-Water Syringe) 25 gm STK-MED ONCE IV ; Start 01/04/19 at 08:50; Stop 01/05/19 at 08:26; Status DC Sodium Chloride 90 meq/Potassium Chloride 30 meq/ Potassium Phosphate 13.6 mmol/ Magnesium Sulfate 15 meq/ Multivitamins 10 ml/Chromium/ Copper/Manganese/ Seleni /Zn 1 ml/ Insulin Human Regular 10 unit/ Total Parenteral Nutrition/Amino Acids/ Dextrose/ Fat Emulsion Intravenous 1,512 ml @ 63 mls/hr TPN CONT IV Last administered on 01/05/19at 21:52; Start 01/05/19 at 22:00; Stop 01/06/19 at 21:59 ; Status DC Budesonide (Pulmicort) 0.5 mg RTBID NEB Last administered on 01/16/19at 09:06; Start 01/05/19 at 12:00 Insulin Glargine (Lantus) 12 units DAILY10 SQ Last administered on 01/09/19at 09 :36; Start 01/06/19 at 13:30; Stop 01/09/19 at 12:16; Status DC Sodium Chloride 40 meq/Potassium Chloride 30 meq/ Potassium Phosphate 13.6 mmol/ Magnesium Sulfate 15 meq/ Multivitamins 10 ml/Chromium/ Copper/Manganese/ Seleni /Zn 1 ml/ Insulin Human Regular 10 unit/ Total Parenteral Nutrition/Amino Acids/ Dextrose/ Fat Emulsion Intravenous 1,512 ml @ 63 mls/hr TPN CONT IV Last administered on 01/07/19at 00:36; Start 01/06/19 at 22:00; Stop 01/07/19 at 21:59 ; Status DC Insulin Human Lispro (HumaLOG) 12 units 1X ONCE SQ Last administered on at 14:18; Start 01/06/19 at 13:00; Stop 01/06/19 at 13:01; Status DC Insulin Human Lispro (HumaLOG) 0-9 UNITS Q6HRS SQ Last administered on 17:53; Start 01/06/19 at 18:00 Insulin Human Lispro (HumaLOG) 3 units 1X ONCE SQ Last administered on at 00:33; Start 01/07/19 at 00:30; Stop 01/07/19 at 00:31; Status DC Insulin Human Lispro (HumaLOG) 20 units 1X ONCE SQ Last administered on at 12:22; Start 01/07/19 at 12:15; Stop 01/07/19 at 12:16; Status DC Insulin Human Lispro (HumaLOG) 10 units TIDAC SQ Last administered on 01/16/19 09:37; Start 01/07/19 at 16:30 Sodium Chloride 40 meq/Potassium Chloride 30 meq/ Potassium Phosphate 13.6 mmol/ Magnesium Sulfate 15 meq/ Multivitamins 10 ml/Chromium/ Copper/Manganese/ Seleni /Zn 1 ml/ Insulin Human Regular 10 unit/ Total Parenteral Nutrition/Amino Acids/ Dextrose/ Fat Emulsion Intravenous 1,512 ml @ 63 mls/hr TPN CONT IV Last administered on 01/07/19 21:45; Start 01/07/19 at 22:00; Stop 01/08/19 at 21:59 ; Status DC Insulin Human Lispro (HumaLOG) 10 units 1X ONCE SQ Last administered on 14:19; Start 01/07/19 at 14:00; Stop 01/07/19 at 14:01; Status DC Benzocaine (Hurricaine One) 1 spray 1X ONCE MM Last administered on 01/08/19 09:44; Start 01/08/19 at 09:30; Stop 01/08/19 at 09:31; Status DC Lorazepam (Ativan) 0.5 mg PRN Q4HRS PRN IV ANXIETY / AGITATION Last administered on 01/15/19 01:21; Start 01/08/19 at 10:45; Stop 01/15/19 at 19:16; Status DC Sodium Chloride 40 meq/Potassium Chloride 30 meq/ Potassium Phosphate 10 mmol/ Magnesium Sulfate 15 meq/ Multivitamins 10 ml/Chromium/ Copper/Manganese/ Seleni /Zn 1 ml/ Insulin Human Regular 10 unit/ Total Parenteral Nutrition/Amino Acids/ Dextrose/ Fat Emulsion Intravenous 1,512 ml @ 63 mls/hr TPN CONT IV Last administered on 01/08/19at 22:00; Start 01/08/19 at 22:00; Stop 01/09/19 at 21:59 ; Status DC Saliva Substitute (Biotene Moisturizing Mouth) 2 spray PRN Q15MIN PRN PO DRY MOUTH Last administered on 01/08/19at 14:55; Start 01/08/19 at 14:45 Insulin Glargine (Lantus) 18 units DAILY10 SQ Last administered on 01/16/19at 09: 36; Start 01/10/19 at 10:00 Sodium Chloride 40 meq/Potassium Chloride 30 meq/ Potassium Phosphate 10 mmol/ Magnesium Sulfate 15 meq/ Multivitamins 10 ml/Chromium/ Copper/Manganese/ Seleni /Zn 1 ml/ Insulin Human Regular 10 unit/ Total Parenteral Nutrition/Amino Acids/ Dextrose/ Fat Emulsion Intravenous 1,512 ml @ 63 mls/hr TPN CONT IV Last administered on 01/09/19at 22:22; Start 01/09/19 at 22:00; Stop 01/10/19 at 21:59 ; Status DC Duloxetine HCl (Cymbalta) 60 mg DAILY PO ; Start 01/11/19 at 09:00; Stop at 08:54; Status DC Memantine (Namenda) 10 mg DAILY PO ; Start 01/11/19 at 09:00; Stop 01/12/19 at 08:54; Status DC Sodium Chloride 40 meq/Potassium Acetate 50 meq/ Potassium Phosphate 10 mmol/ Magnesium Sulfate 18 meq/ Multivitamins 10 ml/Chromium/ Copper/Manganese/ Seleni /Zn 1 ml/ Insulin Human Regular 10 unit/ Total Parenteral Nutrition/Amino Acids/ Dextrose/ Fat Emulsion Intravenous 1,512 ml @ 63 mls/hr TPN CONT IV Last administered on 01/10/19at 22:18; Start 01/10/19 at 22:00; Stop 01/11/19 at 21:59 ; Status DC Sodium Chloride 40 meq/Potassium Acetate 50 meq/ Potassium Phosphate 10 mmol/ Magnesium Sulfate 18 meq/ Multivitamins 10 ml/Chromium/ Copper/Manganese/ Seleni /Zn 1 ml/ Insulin Human Regular 10 unit/ Total Parenteral Nutrition/Amino Acids/ Dextrose/ Fat Emulsion Intravenous 1,512 ml @ 63 mls/hr TPN CONT IV Last administered on 01/11/19at 22:05; Start 01/11/19 at 22:00; Stop 01/12/19 at 21:59 ; Status DC Sodium Chloride 40 meq/Potassium Acetate 50 meq/ Potassium Phosphate 10 mmol/ Magnesium Sulfate 18 meq/ Multivitamins 10 ml/Chromium/ Copper/Manganese/ Seleni /Zn 1 ml/ Insulin Human Regular 10 unit/ Total Parenteral Nutrition/Amino Acids/ Dextrose/ Fat Emulsion Intravenous 1,512 ml @ 63 mls/hr TPN CONT IV Last administered on 01/12/19at 22:07; Start 01/12/19 at 22:00; Stop 01/13/19 at 21:59 ; Status DC Vitamin A/Vitamin D (Vitamin A & D Ointment) 1 ranjith PRN Q1HR PRN TP SKIN PROTECTION Last administered on 01/15/19at 08:48; Start 01/12/19 at 15:30 Bisacodyl (Dulcolax Supp) 10 mg PRN DAILY PRN MO CONSTIPATION 1ST CHOICE; Start 01/13/19 at 03:15 Magnesium Sulfate/ Dextrose 100 ml @ 100 mls/hr 1X ONCE IV Last administered on 01/13/19at 10:07; Start 01/13/19 at 09:30; Stop 01/13/19 at 10:29; Status DC Sodium Chloride 40 meq/Potassium Acetate 50 meq/ Potassium Phosphate 10 mmol/ Magnesium Sulfate 22 meq/ Multivitamins 10 ml/Chromium/ Copper/Manganese/ Seleni /Zn 1 ml/ Insulin Human Regular 10 unit/ Total Parenteral Nutrition/Amino Acids/ Dextrose/ Fat Emulsion Intravenous 1,512 ml @ 63 mls/hr TPN CONT IV Last administered on 01/13/19at 21:55; Start 01/13/19 at 22:00; Stop 01/14/19 at 21:59 ; Status DC Hydrocortisone Acetate (Anucort-Hc) 25 mg PRN QID PRN MO RECTAL PAIN; Start at 14:00 Pantoprazole Sodium (Protonix) 40 mg DAILYAC PO Last administered on 01/16/19at 06:22; Start 01/15/19 at 07:30 Sodium Chloride 40 meq/Potassium Acetate 50 meq/ Potassium Phosphate 10 mmol/ Magnesium Sulfate 22 meq/ Multivitamins 10 ml/Chromium/ Copper/Manganese/ Seleni /Zn 1 ml/ Insulin Human Regular 10 unit/ Total Parenteral Nutrition/Amino Acids/ Dextrose/ Fat Emulsion Intravenous 1,512 ml @ 63 mls/hr TPN CONT IV Last administered on 01/14/19 21:58; Start 01/14/19 at 22:00; Stop 01/15/19 at 21:59; Status DC Acetaminophen/ Hydrocodone Bitart (Lortab 5/325) 1 tab PRN Q4HRS PRN PO MODERATE PAIN Last administered on 01/16/19 06:22; Start 01/14/19 at 21:45 Alprazolam (Xanax) 0.25 mg PRN Q8HRS PRN PO ANXIETY / AGITATION Last administered on 01/16/19 09:24; Start 01/14/19 at 21:45 Amlodipine Besylate (Norvasc) 10 mg DAILY PO Last administered on 01/16/19 09: 19; Start 01/15/19 at 09:00 Ascorbic Acid (Vitamin C) 500 mg DAILY PO Last administered on 01/16/19 09:18; Start 01/15/19 at 09:00 Ferrous Sulfate (Feosol) 325 mg DAILYWBKFT PO Last administered on 01/16/19 09: 24; Start 01/15/19 at 08:00 Ropinirole HCl (Requip) 3 mg QHS PO Last administered on 01/15/19 21:08; Start 01/14/19 at 22:00 Spironolactone (Aldactone) 25 mg DAILY PO Last administered on 01/16/19 09:24; Start 01/15/19 at 09:00 Docusate Sodium (Colace) 100 mg DAILY PO Last administered on 01/16/19 09:18; Start 01/15/19 at 09:00 Calcium Carbonate/ Glycine (Tums) 500 mg PRN AFTMEALHC PRN PO INDIGESTION Last administered on 01/16/19 09:18; Start 01/14/19 at 21:45 Duloxetine HCl (Cymbalta) 60 mg DAILY PO Last administered on 01/16/19 09:18; Start 01/15/19 at 09:00 Memantine (Namenda) 10 mg DAILY PO Last administered on 01/16/19 09:18; Start 01/15/19 at 09:00 Sodium Chloride 40 meq/Potassium Acetate 50 meq/ Potassium Phosphate 10 mmol/ Magnesium Sulfate 22 meq/ Multivitamins 10 ml/Chromium/ Copper/Manganese/ Seleni /Zn 1 ml/ Insulin Human Regular 10 unit/ Total Parenteral Nutrition/Amino Acids/ Dextrose/ Fat Emulsion Intravenous 1,512 ml @ 63 mls/hr TPN CONT IV Last administered on 01/15/19at 22:19; Start 01/15/19 at 22:00; Stop 01/16/19 at 21:59 Simethicone (Gas-X) 80 mg PRN AFTMEALHC PRN PO GAS / BLOATING Last administered on 01/16/19at 09:24; Start 01/15/19 at 16:45 Sodium Chloride 40 meq/Potassium Acetate 50 meq/ Potassium Phosphate 10 mmol/ Magnesium Sulfate 22 meq/ Multivitamins 10 ml/Chromium/ Copper/Manganese/ Seleni /Zn 1 ml/ Insulin Human Regular 10 unit/ Total Parenteral Nutrition/Amino Acids/ Dextrose/ Fat Emulsion Intravenous 1,512 ml @ 63 mls/hr TPN CONT IV ; Start at 22:00; Stop 01/16/19 at 22:00; Status DC Active Scripts Active Hydrocodone-Apap 5-325 (Hydrocodone Bit/Acetaminophen) 1 Tab Tablet 1 Tab PO PRN Q4HRS PRN Symbicort 80-4.5 Mcg Inhaler (Budesonide/Formoterol Fumarate) 10.2 Gm Hfa.aer.ad 1 Puff IH BID Duoneb 0.5-3(2.5) Mg/3 Ml (Albuterol/Ipratropium) 3 Ml Ampul.neb 3 Ml NEB BID [Bisacodyl] 10 MG Supp.rect 10 Mg MO PRN DAILY PRN Colace (Docusate Sodium) 100 Mg Capsule 100 Mg PO DAILY Humalog (Insulin Lispro) 100 Unit/1 Ml Insuln.pen 10 Units SQ TIDAC 30 Days Lantus Solostar (Insulin Glargine,Hum.rec.anlog) 100 Unit/1 Ml Insuln.pen 18 Units SQ DAILY10 30 Days [Pantoprazole] 40 MG Tablet.dr 40 Mg PO DAILYAC Alprazolam 0.25 Mg Tablet 0.25 Mg PO PRN Q8HRS PRN Cymbalta (Duloxetine Hcl) 30 Mg Capsule.dr 60 Mg PO DAILY Chlorhexidine Gluconate 473 Ml Mouthwash 473 Ml MM BID 7 Days Vitamin C (Ascorbate Calcium) 500 Mg Tablet 500 Mg PO DAILY 30 Days Slow Release Iron (Ferrous Sulfate) 250 Mg Tablet.er 250 Mg PO DAILY 30 Days Protonix (Pantoprazole Sodium) 40 Mg Granpkt.dr 40 Mg PO DAILY 30 Days Reported Metformin Hcl Er (Metformin Hcl) 500 Mg Tab.er.24h 1 Tab PO DAILY Namenda (Memantine Hcl) 10 Mg Tablet 1 Tab PO BID Losartan Potassium 100 Mg Tablet 100 Mg PO DAILY Spironolactone 25 Mg Tablet 1 Tab PO DAILY Ventolin Hfa Inhaler (Albuterol Sulfate) 18 Gm Hfa.aer.ad 2 Puff INH Q4HRS Requip (Ropinirole Hcl) 1 Mg Tablet 3 Mg PO DAILY Amlodipine Besylate 10 Mg Tablet 10 Mg PO DAILY Vitals/I & O Vital Sign - Last 24 Hours 01/15/19 01/15/19 01/15/19 01/15/19 15:00 18:23 19:00 19:21 Temp 98.5 98.6 98.5 98.6 Pulse 83 79 Resp 18 18 B/P (MAP) 145/80 (101) 145/73 (97) Pulse Ox 98 99 100 O2 Delivery Nasal Cannula Nasal Cannula Nasal Cannula Nasal Cannula O2 Flow Rate 3.0 3.0 3.0 3.0 01/15/19 01/15/19 01/15/19 01/15/19 19:21 20:00 21:07 22:07 Resp 20 18 O2 Delivery Nasal Cannula Nasal Cannula Nasal Cannula O2 Flow Rate 3.0 3.0 3.0 01/15/19 01/15/19 01/16/19 01/16/19 22:34 22:58 02:57 03:00 Temp 98.4 98.1 98.4 98.1 Pulse 87 83 Resp 22 20 B/P (MAP) 131/75 (93) 155/82 (106) Pulse Ox 98 92 O2 Delivery Nasal Cannula Nasal Cannula Nasal Cannula Nasal Cannula O2 Flow Rate 3.0 3.0 3.0 3.0 01/16/19 01/16/19 01/16/19 01/16/19 06:22 07:00 08:15 09:08 Temp 97.7 97.7 Pulse 69 B/P (MAP) 162/85 (110) Pulse Ox 98 96 O2 Delivery Room Air Nasal Cannula Nasal Cannula Nasal Cannula O2 Flow Rate 3.0 3.0 3.0 3.0 01/16/19 01/16/19 01/16/19 01/16/19 09:19 09:38 11:00 11:20 Pulse 69 72 Resp 20 B/P (MAP) 162/85 139/82 (101) Pulse Ox 96 100 99 O2 Delivery Nasal Cannula Nasal Cannula Nasal Cannula O2 Flow Rate 3.0 3.0 3.0 Intake and Output 01/15/19 01/15/19 01/16/19 15:00 23:00 07:00 Intake Total 600 ml Balance 600 ml RADAMES MÉNDEZ MD Jan 16, 2019 12:56
[2019-01-16 15:00] VITALS: BP 150/78
[2019-01-16 19:00] VITALS: BP 142/73
[2019-01-16] MEDS: METHYL SALICYLATE/MENTHOL TOPICAL OINTMENT 29GM TUBE. TP PRN (21:16)
[2019-01-16] MEDS: rOPINIRole 1 MG TABLET. PO SCH (21:16)
[2019-01-16] MEDS ORDERED: AMINO ACID IV SCH ×10 (22:00)
[2019-01-16] MEDS ORDERED: DEXTROSE 70% IV SCH ×10 (22:00)
[2019-01-16] MEDS ORDERED: [UNRECOGNIZED DRUG - OTHER] IV SCH ×10 (22:00)
[2019-01-16] MEDS ORDERED: TOTAL PARENTERAL NUTRITION IV SCH ×10 (22:00)
[2019-01-16 23:00] VITALS: BP 140/83
[2019-01-17] VITALS (10 sets, daily range): BP systolic 136–156; BP diastolic 8–91
[2019-01-17] MEDS: IPRATRPIUM/ALBUTEROL 0.5/2.5MG 3 ML NEBU. NEB SCH ×4 (03:31→14:44)
--- NOTE | 2019-01-17 04:55 | NUR ---
01/16/190: Pt.'s daughter Bessy called for an update on discharge. She would like to for day shift to call when it is close for pt. to d/c from facility. Will pass on to day shift report.
[2019-01-17] MEDS: INSULIN LISPRO 300 UNITS/3 ML INSULN.PEN. SQ SCH ×5 (06:00→11:46)
[2019-01-17] MEDS: HYDROcodone/APAP 5/325MG 1 TAB TABLET PO PRN ×2 (06:09→11:04)
[2019-01-17] MEDS: PANTOPRAZOLE 40 MG TABLET.DR. PO SCH (06:09)
[2019-01-17 06:54] LABS: BASO % 1 % (0-3); EOS # 0.2 x10^3/uL (0.0-0.7); EOS % 3 % (0-3); HEMATOCRIT 22.2 % (36.0-47.0); LYMPH # 1.6 x10^3/uL (1.0-4.8); LYMPH % 19 % (24-48); MEAN CORPUSCULAR HEMOGLOBIN 23 pg (25-35); MEAN CORPUSCULAR HGB CONC 32 g/dL (31-37); MEAN CORPUSCULAR VOLUME 74 fL (79-100); MONO # 0.7 x10^3/uL (0.0-1.1); MONO % 8 % (0-9); NEUT # 5.9 x10^3uL (1.8-7.7); NEUT % 70 % (31-73); PLATELET COUNT 275 x10^3/uL (140-400); RED CELL DISTRIBUTION WIDTH 24.4 % (11.5-14.5); WHITE BLOOD COUNT 8.4 x10^3/uL (4.0-11.0)
[2019-01-17 06:55] LABS: CALCIUM 8.3 mg/dL (8.5-10.1); CREATININE 0.6 mg/dL (0.6-1.0); GFR 117.9; POTASSIUM 4.1 mmol/L (3.5-5.1)
[2019-01-17] MEDS: BUDESONIDE 0.5 MG/2 ML NEBU. NEB SCH (07:10)
[2019-01-17] MEDS: ASCORBIC ACID 500 MG TABLET PO SCH (08:10)
[2019-01-17] MEDS: DOCUSATE SODIUM 100 MG CAPSULE. PO SCH (08:10)
--- NOTE | 2019-01-17 08:10 | PDOC ---
PROGRESS NOTES Chief Complaint Chief Complaint Cecal ulceration - s/p X LAP - rt colon resection and hemorrhoidectomy 12/30 Anemia, colonic Avms Acute hypoxic respiratory failure, improving post op malnutrition VISHNU COPD Sepsis/Leukopenia - meropenem and vanco, ID following ileus History of Present Illness History of Present Illness S/p right hemicolectomy and hemorrhoidectomy on 12/17. Hb 7 this morning, 1x PRBC ordered plan DC in AM taper off the TPN, she has eaten > 50%, about 75% of breakfast today, cont PO intake discussed with surg team Vitals Vitals Vital Signs Date Time Temp Pulse Resp B/P (MAP) Pulse Ox O2 Delivery O2 Flow Rate FiO2 01/17/19 07:17 Nasal Cannula 3.0 01/17/19 07:10 99 01/17/19 07:00 97.8 86 22 151/91 (111) 97.8 Physical Exam Physical Exam GENERAL: Sitting in the chair, relaxed appearance, alert. HEENT: Oral cavity pink, dry NECK: Supple LUNGS: Diminished aeration bases, nonlabored HEART: S1, S2 ABDOMEN: Distended, NT to light palpation. + BS, dressing. mild serous fluid EXTREMITIES: LLE 1+ edema. no cyanosis SKIN: No rash. NEUROLOGIC: Alert, responding appropriately RUE-PICC (12/23) clean General: Alert, Cooperative Heart: Regular rate, Normal S1, Normal S2, No murmurs Lungs: Clear Abdomen: Soft, Other (NTTP, incision healing ) Extremities: No clubbing, No cyanosis, No edema Skin: No breakdown, No significant lesion Labs LABS Laboratory Tests Test 01/16/19 11:32 01/16/19 17:52 01/17/19 00:34 01/17/19 06:08 Glucose (Fingerstick) 143 mg/dL (70-99) 118 mg/dL (70-99) 184 mg/dL (70-99) 118 mg/dL (70-99) Test 01/17/19 06:30 White Blood Count 8.4 x10^3/uL (4.0-11.0) Red Blood Count 3.00 x10^6/uL (3.50-5.40) Hemoglobin 7.0 g/dL (12.0-15.5) Hematocrit 22.2 % (36.0-47.0) Mean Corpuscular Volume 74 fL (79-100) Mean Corpuscular Hemoglobin 23 pg (25-35) Mean Corpuscular Hemoglobin Concent 32 g/dL (31-37) Red Cell Distribution Width 24.4 % (11.5-14.5) Platelet Count 275 x10^3/uL (140-400) Neutrophils (%) (Auto) 70 % (31-73) Lymphocytes (%) (Auto) 19 % (24-48) Monocytes (%) (Auto) 8 % (0-9) Eosinophils (%) (Auto) 3 % (0-3) Basophils (%) (Auto) 1 % (0-3) Neutrophils # (Auto) 5.9 x10^3uL (1.8-7.7) Lymphocytes # (Auto) 1.6 x10^3/uL (1.0-4.8) Monocytes # (Auto) 0.7 x10^3/uL (0.0-1.1) Eosinophils # (Auto) 0.2 x10^3/uL (0.0-0.7) Basophils # (Auto) 0.0 x10^3/uL (0.0-0.2) Sodium Level 137 mmol/L (136-145) Potassium Level 4.1 mmol/L (3.5-5.1) Chloride Level 98 mmol/L (98-107) Carbon Dioxide Level 33 mmol/L (21-32) Anion Gap 6 (6-14) Blood Urea Nitrogen 10 mg/dL (7-20) Creatinine 0.6 mg/dL (0.6-1.0) Estimated GFR (Cockcroft-Gault) 117.9 Glucose Level 115 mg/dL (70-99) Calcium Level 8.3 mg/dL (8.5-10.1) Comment Review of Relevant I have reviewed the following items abdifatah (where applicable) has been applied. Labs Laboratory Tests Test 01/15/19 12:02 01/15/19 17:45 01/16/19 00:14 01/16/19 05:45 Glucose (Fingerstick) 126 mg/dL (70-99) 157 mg/dL (70-99) 148 mg/dL (70-99) 172 mg/dL (70-99) Test 01/16/19 11:32 01/16/19 17:52 01/17/19 00:34 01/17/19 06:08 Glucose (Fingerstick) 143 mg/dL (70-99) 118 mg/dL (70-99) 184 mg/dL (70-99) 118 mg/dL (70-99) Test 01/17/19 06:30 White Blood Count 8.4 x10^3/uL (4.0-11.0) Red Blood Count 3.00 x10^6/uL (3.50-5.40) Hemoglobin 7.0 g/dL (12.0-15.5) Hematocrit 22.2 % (36.0-47.0) Mean Corpuscular Volume 74 fL (79-100) Mean Corpuscular Hemoglobin 23 pg (25-35) Mean Corpuscular Hemoglobin Concent 32 g/dL (31-37) Red Cell Distribution Width 24.4 % (11.5-14.5) Platelet Count 275 x10^3/uL (140-400) Neutrophils (%) (Auto) 70 % (31-73) Lymphocytes (%) (Auto) 19 % (24-48) Monocytes (%) (Auto) 8 % (0-9) Eosinophils (%) (Auto) 3 % (0-3) Basophils (%) (Auto) 1 % (0-3) Neutrophils # (Auto) 5.9 x10^3uL (1.8-7.7) Lymphocytes # (Auto) 1.6 x10^3/uL (1.0-4.8) Monocytes # (Auto) 0.7 x10^3/uL (0.0-1.1) Eosinophils # (Auto) 0.2 x10^3/uL (0.0-0.7) Basophils # (Auto) 0.0 x10^3/uL (0.0-0.2) Sodium Level 137 mmol/L (136-145) Potassium Level 4.1 mmol/L (3.5-5.1) Chloride Level 98 mmol/L (98-107) Carbon Dioxide Level 33 mmol/L (21-32) Anion Gap 6 (6-14) Blood Urea Nitrogen 10 mg/dL (7-20) Creatinine 0.6 mg/dL (0.6-1.0) Estimated GFR (Cockcroft-Gault) 117.9 Glucose Level 115 mg/dL (70-99) Calcium Level 8.3 mg/dL (8.5-10.1) Laboratory Tests Test 01/16/19 11:32 01/16/19 17:52 01/17/19 00:34 01/17/19 06:08 Glucose (Fingerstick) 143 mg/dL (70-99) 118 mg/dL (70-99) 184 mg/dL (70-99) 118 mg/dL (70-99) Test 01/17/19 06:30 White Blood Count 8.4 x10^3/uL (4.0-11.0) Red Blood Count 3.00 x10^6/uL (3.50-5.40) Hemoglobin 7.0 g/dL (12.0-15.5) Hematocrit 22.2 % (36.0-47.0) Mean Corpuscular Volume 74 fL (79-100) Mean Corpuscular Hemoglobin 23 pg (25-35) Mean Corpuscular Hemoglobin Concent 32 g/dL (31-37) Red Cell Distribution Width 24.4 % (11.5-14.5) Platelet Count 275 x10^3/uL (140-400) Neutrophils (%) (Auto) 70 % (31-73) Lymphocytes (%) (Auto) 19 % (24-48) Monocytes (%) (Auto) 8 % (0-9) Eosinophils (%) (Auto) 3 % (0-3) Basophils (%) (Auto) 1 % (0-3) Neutrophils # (Auto) 5.9 x10^3uL (1.8-7.7) Lymphocytes # (Auto) 1.6 x10^3/uL (1.0-4.8) Monocytes # (Auto) 0.7 x10^3/uL (0.0-1.1) Eosinophils # (Auto) 0.2 x10^3/uL (0.0-0.7) Basophils # (Auto) 0.0 x10^3/uL (0.0-0.2) Sodium Level 137 mmol/L (136-145) Potassium Level 4.1 mmol/L (3.5-5.1) Chloride Level 98 mmol/L (98-107) Carbon Dioxide Level 33 mmol/L (21-32) Anion Gap 6 (6-14) Blood Urea Nitrogen 10 mg/dL (7-20) Creatinine 0.6 mg/dL (0.6-1.0) Estimated GFR (Cockcroft-Gault) 117.9 Glucose Level 115 mg/dL (70-99) Calcium Level 8.3 mg/dL (8.5-10.1) Microbiology 01/01/19 Blood Culture - Final, Complete NO GROWTH AFTER 5 DAYS 12/25/18 - Final, Complete 12/25/18 - Final, Complete 12/25/18 - Final, Complete 12/25/18 - Final, Complete 12/25/18 Gram Stain Evaluation - Final, Complete 12/25/18 Sputum Culture - Final, Complete 12/25/18 Sputum Result 1 - Final, Complete Medications Current Medications Sodium Chloride 1,000 ml @ 1,000 mls/hr 1X ONCE IV Last administered on at 13:52; Start 12/14/18 at 13:30; Stop 12/14/18 at 14:29; Status DC Amlodipine Besylate (Norvasc) 10 mg DAILY PO Last administered on 01/07/19at 08: 45; Start 12/14/18 at 17:00; Stop 01/12/19 at 08:54; Status DC Chlorhexidine Gluconate (Peridex) 15 ml BID MM Last administered on 01/16/19at 09 :18; Start 12/14/18 at 21:00 Non-Formulary Medication (Albuterol Sulfate (Ventolin Hfa Inhaler)) 2 puff Q4HRS INH ; Start 12/14/18 at 20:00; Status UNV Ascorbic Acid (Vitamin C) 500 mg DAILY PO Last administered on 12/22/18at 10:30; Start 12/14/18 at 17:00; Stop 01/12/19 at 08:54; Status DC Duloxetine HCl (Cymbalta) 90 mg DAILY PO Last administered on 01/07/19at 08:48; Start 12/14/18 at 17:00; Stop 01/10/19 at 10:18; Status DC Ferrous Sulfate (Feosol) 325 mg DAILYWBKFT PO Last administered on 12/22/18at 10: 30; Start 12/14/18 at 17:00; Stop 01/12/19 at 08:54; Status DC Losartan Potassium (Cozaar) 100 mg DAILY PO Last administered on 12/22/18 10:29 ; Start 12/14/18 at 17:00; Stop 01/12/19 at 08:54; Status DC Memantine (Namenda) 10 mg BID PO Last administered on 01/07/19 08:45; Start at 21:00; Stop 01/10/19 at 10:18; Status DC Pantoprazole Sodium (Protonix) 40 mg DAILYAC PO Last administered on 12/22/18 05:28; Start 12/14/18 at 17:00; Stop 12/24/18 at 09:25; Status DC Ropinirole HCl (Requip) 3 mg QHS PO Last administered on 01/07/19 20:26; Start 12/14/18 at 21:00; Stop 01/12/19 at 08:54; Status DC Spironolactone (Aldactone) 25 mg DAILY PO Last administered on 01/07/19 08:45 ; Start 12/14/18 at 17:00; Stop 01/12/19 at 08:54; Status DC Albuterol Sulfate (Ventolin Neb Soln) 2.5 mg Q4HRS NEB Last administered on at 06:52; Start 12/14/18 at 20:00; Stop 01/02/19 at 07:24; Status DC Sodium Chloride 1,000 ml @ 80 mls/hr [id number] IV Last administered on 12/23/18 15:25; Start 12/14/18 at 17:15; Stop 12/23/18 at 21:59; Status DC Acetaminophen (Tylenol) 650 mg PRN Q6HRS PRN PO Pain Last administered on 21:27; Start 12/15/18 at 04:45; Stop 12/26/18 at 21:07; Status DC Polyethylene Glycol (miraLAX Powder BULK BOTTLE) 238 gm 1X ONCE PO Last administered on 12/15/18at 12:48; Start 12/15/18 at 12:00; Stop 12/15/18 at 12:01 ; Status DC Ondansetron HCl (Zofran) 4 mg PRN Q6HRS PRN IV NAUSEA/VOMITING; Start 12/16/18 at 07:00; Stop 12/17/18 at 06:59; Status DC Fentanyl Citrate (Fentanyl 2ml Vial) 25 mcg PRN Q5MIN PRN IV MILD PAIN; Start 12/16/18 at 07:00; Stop 12/16/18 at 16:33; Status DC Fentanyl Citrate (Fentanyl 2ml Vial) 50 mcg PRN Q5MIN PRN IV MODERATE TO SEVERE PAIN; Start 12/16/18 at 07:00; Stop 12/16/18 at 16:33; Status DC Morphine Sulfate (Morphine Sulfate) 1 mg PRN Q10MIN PRN IV SEVERE PAIN; Start 12/16/18 at 07:00; Stop 12/17/18 at 06:59; Status DC Ringer's Solution 1,000 ml @ 30 mls/hr Q24H IV Last administered on 12/16/18at 13:00; Start 12/16/18 at 07:00; Stop 12/16/18 at 18:59; Status DC Lidocaine HCl (Xylocaine-Mpf 1% 2ml Vial) 2 ml PRN 1X PRN ID IV START; Start at 07:00; Stop 12/17/18 at 06:59; Status DC Hydromorphone HCl (Dilaudid) 0.5 mg PRN Q10MIN PRN IV SEV PAIN, Second choice; Start 12/16/18 at 07:00; Stop 12/17/18 at 06:59; Status DC Prochlorperazine Edisylate (Compazine) 5 mg PACU PRN PRN IV NAUSEA, MRX1; Start 12/16/18 at 07:00; Stop 12/17/18 at 06:59; Status DC Midazolam HCl (Versed) 2 mg PRN 1X PRN IV PRIOR TO PROCEDURE; Start 12/16/18 at 07:15; Stop 12/17/18 at 07:14; Status DC Fentanyl Citrate (Fentanyl 2ml Vial) 25 mcg PRN Q5MIN PRN IV X 2 DOSES FOR PAIN ; Start 12/16/18 at 07:15; Stop 12/16/18 at 16:33; Status DC Fentanyl Citrate (Fentanyl 2ml Vial) 50 mcg PRN Q5MIN PRN IV X 2 DOSES FOR PAIN ; Start 12/16/18 at 07:15; Stop 12/16/18 at 16:34; Status DC Ringer's Solution 1,000 ml @ 125 mls/hr Q8H IV ; Start 12/16/18 at 07:13; Stop 12/16/18 at 19:12; Status DC Lidocaine HCl (Xylocaine-Mpf 1% 2ml Vial) 2 ml 1X PRN PRN ID IV START; Start at 07:15; Stop 12/17/18 at 07:14; Status DC Propofol 40 ml @ As Directed STK-MED ONCE IV ; Start 12/16/18 at 13:58; Stop at 14:00; Status DC Prochlorperazine Edisylate (Compazine) 5 mg PACU PRN PRN IV NAUSEA, MRX1; Start 12/17/18 at 07:00; Stop 12/18/18 at 06:59; Status DC Hydromorphone HCl (Dilaudid) 0.5 mg PRN Q10MIN PRN IV SEV PAIN, Second choice; Start 12/17/18 at 07:00; Stop 12/18/18 at 06:59; Status DC Lidocaine HCl (Xylocaine-Mpf 1% 2ml Vial) 2 ml PRN 1X PRN ID IV START; Start at 07:00; Stop 12/18/18 at 06:59; Status DC Ringer's Solution 1,000 ml @ 30 mls/hr Q24H IV Last administered on 12/17/18at 10:34; Start 12/17/18 at 07:00; Stop 12/17/18 at 18:59; Status DC Morphine Sulfate (Morphine Sulfate) 1 mg PRN Q10MIN PRN IV SEVERE PAIN; Start 12/17/18 at 07:00; Stop 12/18/18 at 06:59; Status DC Fentanyl Citrate (Fentanyl 2ml Vial) 50 mcg PRN Q5MIN PRN IV MODERATE TO SEVERE PAIN Last administered on 12/17/18at 11:13; Start 12/17/18 at 07:00; Stop at 06:59; Status DC Fentanyl Citrate (Fentanyl 2ml Vial) 25 mcg PRN Q5MIN PRN IV MILD PAIN; Start 12/17/18 at 07:00; Stop 12/18/18 at 06:59; Status DC Ondansetron HCl (Zofran) 4 mg PRN Q6HRS PRN IV NAUSEA/VOMITING; Start 12/17/18 at 07:00; Stop 12/18/18 at 06:59; Status DC Propofol 20 ml @ As Directed STK-MED ONCE IV ; Start 12/17/18 at 07:21; Stop 12/17 at 07:23; Status DC Albuterol Sulfate (Ventolin Neb Soln) 2.5 mg 1X ONCE NEB ; Start 12/17/18 at 07: 30; Stop 12/17/18 at 07:31; Status DC Lidocaine HCl (Lidocaine Pf 2% Vial) 5 ml STK-MED ONCE .ROUTE ; Start 12/17/18 at 07:21; Stop 12/17/18 at 07:23; Status DC Succinylcholine Chloride (Anectine) 200 mg STK-MED ONCE .ROUTE ; Start 12/17/18 at 07:21; Stop 12/17/18 at 07:23; Status DC Rocuronium [place] (Zemuron) 50 mg STK-MED ONCE .ROUTE ; Start 12/17/18 at 07:21 ; Stop 12/17/18 at 07:23; Status DC Fentanyl Citrate (Fentanyl 2ml Vial) 100 mcg STK-MED ONCE .ROUTE ; Start at 07:21; Stop 12/17/18 at 07:24; Status DC Cefazolin Sodium/ Dextrose 50 ml @ 100 mls/hr 1X ONCE IV Last administered on 12/17/18at 08:07; Start 12/17/18 at 07:45; Stop 12/17/18 at 08:18; Status DC Bupivacaine HCl/ Epinephrine Bitart (Sensorcain-Mpf Epi 0.5%-[id number]) 30 ml STK -MED ONCE .ROUTE Last administered on 12/17/18at 08:34; Start 12/17/18 at 07:46; Stop 12/17/18 at 07:49; Status DC Neomycin/ Polymyxin/ Bacitracin (Triple Antibiotic Ointment) 1 pkt STK-MED ONCE TP Last administered on 12/17/18at 10:07; Start 12/17/18 at 07:46; Stop 12/17/18 at 07:49; Status DC Neomycin/ Polymyxin/ Bacitracin (Triple Antibiotic Ointment) 1 pkt STK-MED ONCE TP Last administered on 12/17/18at 10:07; Start 12/17/18 at 07:46; Stop 12/17/18 at 07:49; Status DC Neomycin/ Polymyxin/ Bacitracin (Triple Antibiotic Ointment) 1 pkt STK-MED ONCE TP ; Start 12/17/18 at 07:47; Stop 12/17/18 at 07:49; Status DC Dexamethasone Sodium Phosphate (Decadron) 20 mg STK-MED ONCE .ROUTE ; Start 12/17 at 07:54; Stop 12/17/18 at 07:56; Status DC Hydrocortisone Sodium Succinate (Solu-CORTEF) 100 mg STK-MED ONCE .ROUTE ; Start 12/17/18 at 07:54; Stop 12/17/18 at 07:56; Status DC Desflurane (Suprane) 90 ml STK-MED ONCE IH ; Start 12/17/18 at 07:54; Stop at 07:56; Status DC Neostigmine Methylsulfate (Bloxiverz) 10 mg STK-MED ONCE .ROUTE ; Start 12/17/18 at 08:21; Stop 12/17/18 at 08:24; Status DC Glycopyrrolate (Robinul) 1 mg STK-MED ONCE .ROUTE ; Start 12/17/18 at 08:21; Stop 12/17/18 at 08:24; Status DC Phenylephrine HCl (Bogdan-Synephrine Inj) 10 mg STK-MED ONCE .ROUTE ; Start at 08:23; Stop 12/17/18 at 08:26; Status DC Desflurane (Suprane) 60 ml STK-MED ONCE IH ; Start 12/17/18 at 09:23; Stop at 09:26; Status DC Bupivacaine HCl/ Epinephrine Bitart (Sensorcain-Mpf Epi 0.5%-1:[id number]) 30 ml STK -MED ONCE .ROUTE Last administered on 12/17/18at 10:06; Start 12/17/18 at 09:41; Stop 12/17/18 at 09:43; Status DC Morphine Sulfate (Morphine Sulfate) 2 mg PRN Q2HR PRN IV PAIN Last administered on 12/25/18at 09:26; Start 12/17/18 at 10:15; Stop 12/25/18 at 17:54; Status DC Ketorolac Tromethamine (Toradol 15mg Vial) 15 mg Q6HRS IV Last administered on 12/18/18 05:39; Start 12/17/18 at 12:00; Stop 12/18/18 at 10:00; Status DC Artificial Tears (Artificial Tears) 1 drop PRN Q15MIN PRN OU DRY EYE Last administered on 12/20/18 21:28; Start 12/18/18 at 08:00 Docusate Sodium (Colace) 100 mg DAILY PO Last administered on 01/07/19 08:45; Start 12/18/18 at 10:00; Stop 01/12/19 at 08:54; Status DC Throat Lozenges (Cepacol Sore Throat Lozenge) 1 kristyn PRN Q2HRS PRN PO SORE THROAT Last administered on 01/15/19 08:45; Start 12/18/18 at 14:00 Enoxaparin Sodium (Lovenox 40mg Syringe) 40 mg Q24H SQ Last administered on 01/16 09:19; Start 12/19/18 at 09:00 Ondansetron HCl (Zofran) 4 mg PRN Q6HRS PRN IV NAUSEA/VOMITING Last administered on 01/15/19 21:07; Start 12/19/18 at 11:30 Insulin Human Lispro (HumaLOG) 0-5 UNITS TIDWMEALS SQ Last administered on 12/30 18:23; Start 12/19/18 at 17:00; Stop 12/31/18 at 00:05; Status DC Dextrose (Dextrose 50%-Water Syringe) 12.5 gm PRN Q15MIN PRN IV SEE COMMENTS; Start 12/19/18 at 16:45 Levofloxacin/ Dextrose 100 ml @ 100 mls/hr 1X ONCE IV Last administered on 20:56; Start 12/19/18 at 21:00; Stop 12/19/18 at 21:59; Status DC Cefepime HCl (Maxipime) 2 gm Q12HR IVP Last administered on 12/29/18 10:02; Start 12/21/18 at 10:00; Stop 12/29/18 at 10:37; Status DC Sodium Chloride 1,000 ml @ 125 mls/hr 1X ONCE IV Last administered on 10:43; Start 12/21/18 at 09:45; Stop 12/21/18 at 17:44; Status DC Calcium Carbonate/ Glycine (Tums) 500 mg PRN AFTMEALHC PRN PO INDIGESTION Last administered on 01/13/19 03:22; Start 12/21/18 at 12:15; Stop 01/13/19 at 08:50 ; Status DC Lorazepam (Ativan) 1 mg 1X ONCE IV Last administered on 12/21/18 17:50; Start 12/21/18 at 17:30; Stop 12/21/18 at 17:31; Status DC Albuterol Sulfate (Ventolin Neb Soln) 2.5 mg PRN Q2HRS PRN NEB SHORTNESS OF BREATH Last administered on 01/15/19 19:19; Start 12/21/18 at 17:30 Nicotine (Nicoderm Cq 14mg) 1 patch PRN DAILY PRN TD SMOKING CESSATION Last administered on 12/26/18 09:59; Start 12/21/18 at 19:30 Lorazepam (Ativan) 1 mg 1X ONCE IV Last administered on 12/21/18at 23:45; Start 12/21/18 at 23:45; Stop 12/21/18 at 23:46; Status DC Lorazepam (Ativan) 1 mg PRN Q4HRS PRN IV ANXIETY / AGITATION Last administered on 12/22/18 11:15; Start 12/21/18 at 23:30; Stop 12/22/18 at 14:42; Status DC Sodium Chloride 1,000 ml @ 250 mls/hr 1X ONCE IV Last administered on 09:15; Start 12/22/18 at 09:15; Stop 12/22/18 at 13:14; Status DC Lidocaine/Sodium Bicarbonate (Buffered Lidocaine 1%) 3 ml STK-MED ONCE .ROUTE ; Start 12/23/18 at 10:33; Stop 12/23/18 at 10:35; Status DC Lidocaine/Sodium Bicarbonate (Buffered Lidocaine 1%) 3 ml 1X ONCE INJ Last administered on 12/23/18at 11:24; Start 12/23/18 at 11:00; Stop 12/23/18 at 11:10; Status DC Info (Tpn Per Pharmacy) 1 each PRN DAILY PRN MC SEE COMMENTS Last administered on 3/3/19at 10:26; Start 12/23/18 at 14:00; Stop 01/16/19 at 21:59; Status DC Sodium Chloride 90 meq/Potassium Chloride 50 meq/ Potassium Phosphate 20.4 mmol/ Magnesium Sulfate 18 meq/ Calcium Gluconate 5 meq/ Multivitamins 10 ml/Chromium / Copper/Manganese/ Seleni/Zn 1 ml/ Total Parenteral Nutrition/Amino Acids/ Dextrose/ Fat Emulsion Intravenous 1,512 ml @ 63 mls/hr TPN CONT IV Last administered on 12/23/18at 21:37; Start 12/23/18 at 22:00; Stop 12/24/18 at 21:59; Status DC Alprazolam (Xanax) 0.25 mg PRN BID PRN PO ANXIETY / AGITATION Last administered on 12/25/18at 09:25; Start 12/23/18 at 23:00; Stop 12/25/18 at 17:54; Status DC Lorazepam (Ativan) 1 mg PRN Q4HRS PRN IV ANXIETY / AGITATION Last administered on 12/24/18at 09:21; Start 12/24/18 at 08:45; Stop 12/24/18 at 10:19; Status DC Pantoprazole Sodium (PROTONIX VIAL for IV PUSH) 40 mg DAILYAC IVP Last administered on 01/14/19at 05:56; Start 12/24/18 at 09:30; Stop 01/14/19 at 09:35; Status DC Lorazepam (Ativan) 0.5 mg PRN Q4HRS PRN IV ANXIETY / AGITATION Last administered on 12/25/18at 04:47; Start 12/24/18 at 10:30; Stop 12/25/18 at 10:22; Status DC Sodium Chloride 45 meq/Sodium Acetate 45 meq/ Potassium Chloride 50 meq/ Potassium Phosphate 20.4 mmol/Magnesium Sulfate 18 meq/ Calcium Gluconate 5 meq / Multivitamins 10 ml/Chromium/ Copper/Manganese/ Seleni/Zn 1 ml/ Total Parenteral Nutrition/Amino Acids/Dextrose/ Fat Emuls... 1,512 ml @ 63 mls/hr TPN CONT IV Last administered on 12/24/18at 21:57; Start 12/24/18 at 22:00; Stop 12/25/18 at 21:59; Status DC Phenyleph/Shark Oil/Min Oil/Petrol (Preparation H) 1 ranjith PRN Q4HRS PRN RC RECTAL PAIN; Start 12/24/18 at 12:45; Stop 12/25/18 at 20:20; Status DC Sodium Chloride 45 meq/Sodium Acetate 45 meq/ Potassium Chloride 50 meq/ Potassium Phosphate 20.4 mmol/Magnesium Sulfate 18 meq/ Calcium Gluconate 5 meq / Multivitamins 10 ml/Chromium/ Copper/Manganese/ Seleni/Zn 1 ml/ Total Parenteral Nutrition/Amino Acids/Dextrose/ Fat Emuls... 1,512 ml @ 63 mls/hr TPN CONT IV Last administered on 12/26/18at 00:34; Start 12/25/18 at 22:00; Stop 12/26/18 at 21:59; Status DC Neomycin/ Polymyxin/ Bacitracin (Triple Antibiotic Ointment) 1 pkt PRN TID PRN TP skin around rectum, post op Last administered on 01/16/19at 09:19; Start at 14:30 Alprazolam (Xanax) 0.25 mg PRN Q8HRS PRN PO ANXIETY / AGITATION Last administered on 01/07/19at 13:01; Start 12/25/18 at 18:00; Stop 01/12/19 at 08:54 ; Status DC Morphine Sulfate (Morphine Sulfate) 2 mg PRN Q6HRS PRN IV PAIN Last administered on 12/29/18at 21:47; Start 12/25/18 at 18:00; Stop 12/30/18 at 03:17 ; Status DC Guaifenesin (Mucinex) 600 mg BID PO Last administered on 12/26/18at 21:26; Start 12/26/18 at 11:00; Stop 01/12/19 at 08:54; Status DC Guaifenesin (Mucinex) 600 mg BID PO ; Start 12/26/18 at 11:00; Status UNV Guaifenesin/ Codeine Phosphate (Robitussin Ac) 5 ml PRN Q6HRS PRN PO COUGH Last administered on 12/26/18at 10:41; Start 12/26/18 at 10:30; Stop 01/13/19 at 08:50; Status DC Sodium Acetate 90 meq/Potassium Chloride 50 meq/ Potassium Phosphate 13.6 mmol/ Magnesium Sulfate 18 meq/ Calcium Gluconate 5 meq/ Multivitamins 10 ml/Chromium / Copper/Manganese/ Seleni/Zn 1 ml/ Total Parenteral Nutrition/Amino Acids/ Dextrose/ Fat Emulsion Intravenous 1,512 ml @ 63 mls/hr TPN CONT IV Last administered on 12/26/18at 21:37; Start 12/26/18 at 22:00; Stop 12/28/18 at 01:28 ; Status DC Benzocaine (Hurricaine One) 1 spray 1X ONCE MM ; Start 12/26/18 at 19:15; Stop 12/26/18 at 19:16; Status DC Acetaminophen (Tylenol) 650 mg PRN Q6HRS PRN PO MILD PAIN / TEMP Last administered on 01/16/19at 03:12; Start 12/26/18 at 21:00 Benzocaine (Hurricaine One) 1 spray 1X ONCE MM Last administered on 12/27/18at 09:00; Start 12/27/18 at 09:15; Stop 12/27/18 at 09:16; Status DC Sodium Acetate 90 meq/Potassium Chloride 50 meq/ Potassium Phosphate 13.6 mmol/ Magnesium Sulfate 15 meq/ Calcium Gluconate 5 meq/ Multivitamins 10 ml/Chromium / Copper/Manganese/ Seleni/Zn 1 ml/ Total Parenteral Nutrition/Amino Acids/ Dextrose/ Fat Emulsion Intravenous 1,512 ml @ 63 mls/hr TPN CONT IV ; Start at 22:00; Stop 12/28/18 at 21:59; Status Cancel Sodium Acetate 90 meq/Potassium Chloride 50 meq/ Potassium Phosphate 13.6 mmol/ Magnesium Sulfate 15 meq/ Calcium Gluconate 5 meq/ Multivitamins 10 ml/Chromium / Copper/Manganese/ Seleni/Zn 1 ml/ Total Parenteral Nutrition/Amino Acids/ Dextrose/ Fat Emulsion Intravenous 1,512 ml @ 63 mls/hr TPN CONT IV ; Start at 22:00; Stop 12/28/18 at 21:59; Status DC Lidocaine/Sodium Bicarbonate (Buffered Lidocaine 1%) 3 ml 1X ONCE INJ ; Start 12/28/18 at 09:00; Stop 12/28/18 at 09:01; Status Cancel Benzocaine (Hurricaine One) 1 spray 1X ONCE MM Last administered on 12/28/18at 09:32; Start 12/28/18 at 09:30; Stop 12/28/18 at 09:33; Status DC Sodium Acetate 90 meq/Potassium Chloride 50 meq/ Potassium Phosphate 13.6 mmol/ Magnesium Sulfate 15 meq/ Calcium Gluconate 5 meq/ Multivitamins 10 ml/Chromium / Copper/Manganese/ Seleni/Zn 1 ml/ Total Parenteral Nutrition/Amino Acids/ Dextrose/ Fat Emulsion Intravenous 1,512 ml @ 63 mls/hr TPN CONT IV Last administered on 12/28/18at 22:06; Start 12/28/18 at 22:00; Stop 12/29/18 at 21:59 ; Status DC Iohexol (Omnipaque 300 Mg/ml) 400 ml 1X ONCE PO Last administered on at 08:15; Start 12/29/18 at 06:45; Stop 12/29/18 at 06:46; Status DC Info (CONTRAST GIVEN -- Rx MONITORING) 1 each PRN DAILY PRN MC SEE COMMENTS; Start 12/29/18 at 06:45; Stop 12/31/18 at 06:44; Status DC Iohexol (Omnipaque 300 Mg/ml) 400 ml 1X ONCE PO ; Start 12/29/18 at 07:00; Stop 12/29/18 at 07:03; Status DC Info (CONTRAST GIVEN -- Rx MONITORING) 1 each PRN DAILY PRN MC SEE COMMENTS; Start 12/29/18 at 07:15; Stop 12/31/18 at 07:14; Status DC Meropenem 500 mg/ Sodium Chloride 50 ml @ 100 mls/hr Q6HRS IV Last administered on 01/07/19at 06:05; Start 12/29/18 at 12:00; Stop 01/07/19 at 08:34 ; Status DC Multi-Ingredient Ointment (Analgesic [place]) 1 ranjith PRN QID PRN TP MUSCLE PAIN Last administered on 01/16/19at 21:16; Start 12/29/18 at 13:00 Sodium Acetate 90 meq/Potassium Chloride 50 meq/ Potassium Phosphate 13.6 mmol/ Magnesium Sulfate 15 meq/ Calcium Gluconate 5 meq/ Multivitamins 10 ml/Chromium / Copper/Manganese/ Seleni/Zn 1 ml/ Total Parenteral Nutrition/Amino Acids/ Dextrose/ Fat Emulsion Intravenous 1,512 ml @ 63 mls/hr TPN CONT IV Last administered on 12/29/18at 21:40; Start 12/29/18 at 22:00; Stop 12/30/18 at 21:59 ; Status DC Morphine Sulfate (Morphine Sulfate) 2 mg PRN Q4HRS PRN IV SEVERE PAIN Last administered on 12/30/18at 19:50; Start 12/30/18 at 03:30; Stop 12/30/18 at 21:33 ; Status DC Propofol 20 ml @ As Directed STK-MED ONCE IV ; Start 12/30/18 at 12:51; Stop at 12:52; Status DC Dexamethasone Sodium Phosphate (Decadron) 20 mg STK-MED ONCE .ROUTE ; Start at 12:51; Stop 12/30/18 at 12:52; Status DC Lidocaine HCl (Lidocaine Pf 2% Vial) 5 ml STK-MED ONCE .ROUTE ; Start 12/30/18 at 12:51; Stop 12/30/18 at 12:52; Status DC Ondansetron HCl (Zofran) 4 mg STK-MED ONCE .ROUTE ; Start 12/30/18 at 12:51; Stop 12/30/18 at 12:52; Status DC Rocuronium [place] (Zemuron) 50 mg STK-MED ONCE .ROUTE ; Start 12/30/18 at 12:51 ; Stop 12/30/18 at 12:52; Status DC Succinylcholine Chloride (Anectine) 200 mg STK-MED ONCE .ROUTE ; Start 12/30/18 at 12:51; Stop 12/30/18 at 12:52; Status DC Fentanyl Citrate (Fentanyl 5ml Vial) 250 mcg STK-MED ONCE .ROUTE ; Start at 13:49; Stop 12/30/18 at 13:50; Status DC Sodium Chloride 90 meq/Potassium Chloride 50 meq/ Potassium Phosphate 13.6 mmol/ Magnesium Sulfate 15 meq/ Multivitamins 10 ml/Chromium/ Copper/Manganese/ Seleni /Zn 1 ml/ Total Parenteral Nutrition/Amino Acids/Dextrose/ Fat Emulsion Intravenous 1,512 ml @ 63 mls/hr TPN CONT IV Last administered on 12/30/18at 23:43; Start 12/30/18 at 22:00; Stop 12/31/18 at 21:59; Status DC Vasopressin (Vasostrict) 20 unit STK-MED ONCE .ROUTE ; Start 12/30/18 at 15:00; Stop 12/30/18 at 15:01; Status DC Sodium Chloride (SODIUM CHLORIDE 20ml) 20 ml STK-MED ONCE IJ ; Start 12/30/18 at 15:01; Stop 12/30/18 at 15:02; Status DC Albumin Human 500 ml @ As Directed STK-MED ONCE IV ; Start 12/30/18 at 15:01; Stop 12/30/18 at 15:02; Status DC Glycopyrrolate (Robinul) 1 mg STK-MED ONCE .ROUTE ; Start 12/30/18 at 15:21; Stop 12/30/18 at 15:22; Status DC Neostigmine Methylsulfate (Bloxiverz) 10 mg STK-MED ONCE .ROUTE ; Start at 15:21; Stop 12/30/18 at 15:22; Status DC Albuterol/ Ipratropium (Duoneb) 3 ml STK-MED ONCE .ROUTE ; Start 12/30/18 at 15: 45; Stop 12/30/18 at 15:46; Status DC Fentanyl Citrate (Fentanyl 2ml Vial) 100 mcg STK-MED ONCE .ROUTE ; Start at 16:56; Stop 12/30/18 at 16:57; Status DC Ondansetron HCl (Zofran) 4 mg PRN Q6HRS PRN IV NAUSEA/VOMITING; Start 12/30/18 at 17:15; Stop 12/30/18 at 21:35; Status DC Fentanyl Citrate (Fentanyl 2ml Vial) 25 mcg PRN Q5MIN PRN IV MILD PAIN Last administered on 12/30/18at 17:15; Start 12/30/18 at 17:15; Stop 12/30/18 at 21:35 ; Status DC Fentanyl Citrate (Fentanyl 2ml Vial) 50 mcg PRN Q5MIN PRN IV MODERATE TO SEVERE PAIN Last administered on 12/30/18at 17:57; Start 12/30/18 at 17:15; Stop 12/30/18 at 21:35; Status DC Morphine Sulfate (Morphine Sulfate) 1 mg PRN Q10MIN PRN IV SEVERE PAIN; Start 12/30/18 at 17:15; Stop 12/31/18 at 17:14; Status DC Ringer's Solution 1,000 ml @ 30 mls/hr Q24H IV Last administered on 12/30/18at 18:09; Start 12/30/18 at 17:10; Stop 12/30/18 at 21:33; Status DC Lidocaine HCl (Xylocaine-Mpf 1% 2ml Vial) 2 ml 1X PRN PRN ID IV START; Start at 17:15; Stop 12/30/18 at 21:35; Status DC Hydromorphone HCl (Dilaudid) 0.5 mg PRN Q10MIN PRN IV SEV PAIN, Second choice; Start 12/30/18 at 17:15; Stop 12/30/18 at 21:35; Status DC Prochlorperazine Edisylate (Compazine) 5 mg PACU PRN PRN IV NAUSEA, MRX1; Start 12/30/18 at 17:15; Stop 12/30/18 at 21:35; Status DC Albumin Human 100 ml @ 100 mls/hr 1X ONCE IV Last administered on 12/30/18at 22:00; Start 12/30/18 at 22:00; Stop 12/30/18 at 22:59; Status DC Ringer's Solution 500 ml @ 500 mls/hr 1X ONCE IV Last administered on at 22:00; Start 12/30/18 at 22:00; Stop 12/30/18 at 22:59; Status DC Ringer's Solution 1,000 ml @ 100 mls/hr Q10H IV Last administered on at 00:58; Start 12/30/18 at 23:00; Stop 01/01/19 at 09:30; Status DC Hydromorphone HCl (Dilaudid) 0.5 mg PRN Q2HR PRN IV MODERATE PAIN Last administered on 01/04/19at 10:08; Start 12/30/18 at 21:30; Stop 01/04/19 at 15:05 ; Status DC Hydromorphone HCl (Dilaudid) 1 mg PRN Q2HR PRN IV SEVERE PAIN Last administered on 01/04/19at 04:51; Start 12/30/18 at 21:30; Stop 01/04/19 at 15:05 ; Status DC Insulin Human Lispro (HumaLOG) 0-5 UNITS Q6HRS SQ Last administered on at 06:42; Start 12/31/18 at 00:30; Stop 01/06/19 at 12:47; Status DC Sodium Chloride 90 meq/Potassium Chloride 30 meq/ Potassium Phosphate 13.6 mmol/ Magnesium Sulfate 15 meq/ Calcium Gluconate 5 meq/ Multivitamins 10 ml/Chromium / Copper/Manganese/ Seleni/Zn 1 ml/ Total Parenteral Nutrition/Amino Acids/ Dextrose/ Fat Emulsion Intravenous 1,512 ml @ 63 mls/hr TPN CONT IV Last administered on 12/31/18at 21:58; Start 12/31/18 at 22:00; Stop 01/01/19 at 21:59 ; Status DC Sodium Chloride 90 meq/Potassium Chloride 30 meq/ Potassium Phosphate 13.6 mmol/ Magnesium Sulfate 15 meq/ Calcium Gluconate 5 meq/ Multivitamins 10 ml/Chromium / Copper/Manganese/ Seleni/Zn 1 ml/ Total Parenteral Nutrition/Amino Acids/ Dextrose/ Fat Emulsion Intravenous 1,512 ml @ 63 mls/hr TPN CONT IV Last administered on 01/01/19at 21:09; Start 01/01/19 at 22:00; Stop 01/02/19 at 21:59 ; Status DC Vancomycin HCl (Vanco Per Pharmacy) 1 each PRN DAILY PRN MC SEE COMMENTS Last administered on 01/03/19at 10:18; Start 01/01/19 at 11:15; Stop 01/03/19 at 11:23 ; Status DC Vancomycin HCl 2 gm/Sodium Chloride 500 ml @ 250 mls/hr ONCE ONCE IV Last administered on 01/01/19at 12:28; Start 01/01/19 at 12:00; Stop 01/01/19 at 13:59 ; Status DC Vancomycin HCl 1.25 gm/Sodium Chloride 250 ml @ 166.667 mls/hr Q24H IV ; Start 01/01/19 at 12:00; Status Cancel Vancomycin HCl (Vancomycin Trough Level) 1 each 1X ONCE MC ; Start 01/03/19 at 11:30; Stop 01/03/19 at 11:31; Status Cancel Vancomycin HCl 1.25 gm/Sodium Chloride 250 ml @ 166.667 mls/hr Q24H IV Last administered on 01/02/19at 13:04; Start 01/02/19 at 12:00; Stop 01/03/19 at 11:23 ; Status DC Albuterol/ Ipratropium (Duoneb) 3 ml 1X ONCE NEB Last administered on at 08:19; Start 01/02/19 at 07:30; Stop 01/02/19 at 07:31; Status DC Albuterol/ Ipratropium (Duoneb) 3 ml Q4HRS NEB Last administered on 01/17/19at 07 :10; Start 01/02/19 at 12:00 Furosemide (Lasix) 20 mg 1X ONCE IVP Last administered on 01/02/19at 07:36; Start 01/02/19 at 07:30; Stop 01/02/19 at 07:31; Status DC Sodium Chloride 90 meq/Potassium Chloride 30 meq/ Potassium Phosphate 13.6 mmol/ Magnesium Sulfate 15 meq/ Calcium Gluconate 5 meq/ Multivitamins 10 ml/Chromium / Copper/Manganese/ Seleni/Zn 1 ml/ Total Parenteral Nutrition/Amino Acids/ Dextrose/ Fat Emulsion Intravenous 1,512 ml @ 63 mls/hr TPN CONT IV Last administered on 01/02/19at 21:20; Start 01/02/19 at 22:00; Stop 01/03/19 at 21:59 ; Status DC Sodium Chloride 90 meq/Potassium Chloride 30 meq/ Potassium Phosphate 13.6 mmol/ Magnesium Sulfate 15 meq/ Multivitamins 10 ml/Chromium/ Copper/Manganese/ Seleni /Zn 1 ml/ Insulin Human Regular 10 unit/ Total Parenteral Nutrition/Amino Acids/ Dextrose/ Fat Emulsion Intravenous 1,512 ml @ 63 mls/hr TPN CONT IV Last administered on 01/03/19at 22:07; Start 01/03/19 at 22:00; Stop 01/04/19 at 21:59 ; Status DC Sodium Chloride 90 meq/Potassium Chloride 30 meq/ Potassium Phosphate 13.6 mmol/ Magnesium Sulfate 15 meq/ Multivitamins 10 ml/Chromium/ Copper/Manganese/ Seleni /Zn 1 ml/ Insulin Human Regular 10 unit/ Total Parenteral Nutrition/Amino Acids/ Dextrose/ Fat Emulsion Intravenous 1,512 ml @ 63 mls/hr TPN CONT IV Last administered on 01/04/19at 22:11; Start 01/04/19 at 22:00; Stop 01/05/19 at 21:59 ; Status DC Hydromorphone HCl (Dilaudid) 0.5 mg PRN Q6HRS PRN IV MODERATE TO SEVERE PAIN Last administered on 01/14/19at 14:54; Start 01/04/19 at 15:15 Hydromorphone HCl (Dilaudid) 1 mg PRN Q6HRS PRN IV SEVERE PAIN Last administered on 01/05/19 02:18; Start 01/04/19 at 15:15; Stop 01/12/19 at 08:54 ; Status DC Dextrose (Dextrose 50%-Water Syringe) 25 gm STK-MED ONCE IV ; Start 01/04/19 at 08:50; Stop 01/05/19 at 08:26; Status DC Sodium Chloride 90 meq/Potassium Chloride 30 meq/ Potassium Phosphate 13.6 mmol/ Magnesium Sulfate 15 meq/ Multivitamins 10 ml/Chromium/ Copper/Manganese/ Seleni /Zn 1 ml/ Insulin Human Regular 10 unit/ Total Parenteral Nutrition/Amino Acids/ Dextrose/ Fat Emulsion Intravenous 1,512 ml @ 63 mls/hr TPN CONT IV Last administered on 01/05/19at 21:52; Start 01/05/19 at 22:00; Stop 01/06/19 at 21:59 ; Status DC Budesonide (Pulmicort) 0.5 mg RTBID NEB Last administered on 01/17/19at 07:10; Start 01/05/19 at 12:00 Insulin Glargine (Lantus) 12 units DAILY10 SQ Last administered on 01/09/19at 09 :36; Start 01/06/19 at 13:30; Stop 01/09/19 at 12:16; Status DC Sodium Chloride 40 meq/Potassium Chloride 30 meq/ Potassium Phosphate 13.6 mmol/ Magnesium Sulfate 15 meq/ Multivitamins 10 ml/Chromium/ Copper/Manganese/ Seleni /Zn 1 ml/ Insulin Human Regular 10 unit/ Total Parenteral Nutrition/Amino Acids/ Dextrose/ Fat Emulsion Intravenous 1,512 ml @ 63 mls/hr TPN CONT IV Last administered on 01/07/19at 00:36; Start 01/06/19 at 22:00; Stop 01/07/19 at 21:59 ; Status DC Insulin Human Lispro (HumaLOG) 12 units 1X ONCE SQ Last administered on at 14:18; Start 01/06/19 at 13:00; Stop 01/06/19 at 13:01; Status DC Insulin Human Lispro (HumaLOG) 0-9 UNITS Q6HRS SQ Last administered on at 17:53; Start 01/06/19 at 18:00 Insulin Human Lispro (HumaLOG) 3 units 1X ONCE SQ Last administered on at 00:33; Start 01/07/19 at 00:30; Stop 01/07/19 at 00:31; Status DC Insulin Human Lispro (HumaLOG) 20 units 1X ONCE SQ Last administered on at 12:22; Start 01/07/19 at 12:15; Stop 01/07/19 at 12:16; Status DC Insulin Human Lispro (HumaLOG) 10 units TIDAC SQ Last administered on 01/16/19at 09:37; Start 01/07/19 at 16:30 Sodium Chloride 40 meq/Potassium Chloride 30 meq/ Potassium Phosphate 13.6 mmol/ Magnesium Sulfate 15 meq/ Multivitamins 10 ml/Chromium/ Copper/Manganese/ Seleni /Zn 1 ml/ Insulin Human Regular 10 unit/ Total Parenteral Nutrition/Amino Acids/ Dextrose/ Fat Emulsion Intravenous 1,512 ml @ 63 mls/hr TPN CONT IV Last administered on 01/07/19at 21:45; Start 01/07/19 at 22:00; Stop 01/08/19 at 21:59 ; Status DC Insulin Human Lispro (HumaLOG) 10 units 1X ONCE SQ Last administered on at 14:19; Start 01/07/19 at 14:00; Stop 01/07/19 at 14:01; Status DC Benzocaine (Hurricaine One) 1 spray 1X ONCE MM Last administered on 01/08/19at 09:44; Start 01/08/19 at 09:30; Stop 01/08/19 at 09:31; Status DC Lorazepam (Ativan) 0.5 mg PRN Q4HRS PRN IV ANXIETY / AGITATION Last administered on 01/15/19at 01:21; Start 01/08/19 at 10:45; Stop 01/15/19 at 19:16; Status DC Sodium Chloride 40 meq/Potassium Chloride 30 meq/ Potassium Phosphate 10 mmol/ Magnesium Sulfate 15 meq/ Multivitamins 10 ml/Chromium/ Copper/Manganese/ Seleni /Zn 1 ml/ Insulin Human Regular 10 unit/ Total Parenteral Nutrition/Amino Acids/ Dextrose/ Fat Emulsion Intravenous 1,512 ml @ 63 mls/hr TPN CONT IV Last administered on 01/08/19at 22:00; Start 01/08/19 at 22:00; Stop 01/09/19 at 21:59 ; Status DC Saliva Substitute (Biotene Moisturizing Mouth) 2 spray PRN Q15MIN PRN PO DRY MOUTH Last administered on 01/08/19at 14:55; Start 01/08/19 at 14:45 Insulin Glargine (Lantus) 18 units DAILY10 SQ Last administered on 01/16/19at 09: 36; Start 01/10/19 at 10:00 Sodium Chloride 40 meq/Potassium Chloride 30 meq/ Potassium Phosphate 10 mmol/ Magnesium Sulfate 15 meq/ Multivitamins 10 ml/Chromium/ Copper/Manganese/ Seleni /Zn 1 ml/ Insulin Human Regular 10 unit/ Total Parenteral Nutrition/Amino Acids/ Dextrose/ Fat Emulsion Intravenous 1,512 ml @ 63 mls/hr TPN CONT IV Last administered on 01/09/19at 22:22; Start 01/09/19 at 22:00; Stop 01/10/19 at 21:59 ; Status DC Duloxetine HCl (Cymbalta) 60 mg DAILY PO ; Start 01/11/19 at 09:00; Stop at 08:54; Status DC Memantine (Namenda) 10 mg DAILY PO ; Start 01/11/19 at 09:00; Stop 01/12/19 at 08:54; Status DC Sodium Chloride 40 meq/Potassium Acetate 50 meq/ Potassium Phosphate 10 mmol/ Magnesium Sulfate 18 meq/ Multivitamins 10 ml/Chromium/ Copper/Manganese/ Seleni /Zn 1 ml/ Insulin Human Regular 10 unit/ Total Parenteral Nutrition/Amino Acids/ Dextrose/ Fat Emulsion Intravenous 1,512 ml @ 63 mls/hr TPN CONT IV Last administered on 01/10/19at 22:18; Start 01/10/19 at 22:00; Stop 01/11/19 at 21:59 ; Status DC Sodium Chloride 40 meq/Potassium Acetate 50 meq/ Potassium Phosphate 10 mmol/ Magnesium Sulfate 18 meq/ Multivitamins 10 ml/Chromium/ Copper/Manganese/ Seleni /Zn 1 ml/ Insulin Human Regular 10 unit/ Total Parenteral Nutrition/Amino Acids/ Dextrose/ Fat Emulsion Intravenous 1,512 ml @ 63 mls/hr TPN CONT IV Last administered on 01/11/19at 22:05; Start 01/11/19 at 22:00; Stop 01/12/19 at 21:59 ; Status DC Sodium Chloride 40 meq/Potassium Acetate 50 meq/ Potassium Phosphate 10 mmol/ Magnesium Sulfate 18 meq/ Multivitamins 10 ml/Chromium/ Copper/Manganese/ Seleni /Zn 1 ml/ Insulin Human Regular 10 unit/ Total Parenteral Nutrition/Amino Acids/ Dextrose/ Fat Emulsion Intravenous 1,512 ml @ 63 mls/hr TPN CONT IV Last administered on 01/12/19at 22:07; Start 01/12/19 at 22:00; Stop 01/13/19 at 21:59 ; Status DC Vitamin A/Vitamin D (Vitamin A & D Ointment) 1 ranjith PRN Q1HR PRN TP SKIN PROTECTION Last administered on 01/15/19at 08:48; Start 01/12/19 at 15:30 Bisacodyl (Dulcolax Supp) 10 mg PRN DAILY PRN GA CONSTIPATION 1ST CHOICE; Start 01/13/19 at 03:15 Magnesium Sulfate/ Dextrose 100 ml @ 100 mls/hr 1X ONCE IV Last administered on 01/13/19at 10:07; Start 01/13/19 at 09:30; Stop 01/13/19 at 10:29; Status DC Sodium Chloride 40 meq/Potassium Acetate 50 meq/ Potassium Phosphate 10 mmol/ Magnesium Sulfate 22 meq/ Multivitamins 10 ml/Chromium/ Copper/Manganese/ Seleni /Zn 1 ml/ Insulin Human Regular 10 unit/ Total Parenteral Nutrition/Amino Acids/ Dextrose/ Fat Emulsion Intravenous 1,512 ml @ 63 mls/hr TPN CONT IV Last administered on 01/13/19at 21:55; Start 01/13/19 at 22:00; Stop 01/14/19 at 21:59 ; Status DC Hydrocortisone Acetate (Anucort-Hc) 25 mg PRN QID PRN GA RECTAL PAIN; Start at 14:00 Pantoprazole Sodium (Protonix) 40 mg DAILYAC PO Last administered on 01/17/19at 06:09; Start 01/15/19 at 07:30 Sodium Chloride 40 meq/Potassium Acetate 50 meq/ Potassium Phosphate 10 mmol/ Magnesium Sulfate 22 meq/ Multivitamins 10 ml/Chromium/ Copper/Manganese/ Seleni /Zn 1 ml/ Insulin Human Regular 10 unit/ Total Parenteral Nutrition/Amino Acids/ Dextrose/ Fat Emulsion Intravenous 1,512 ml @ 63 mls/hr TPN CONT IV Last administered on 01/14/19at 21:58; Start 01/14/19 at 22:00; Stop 01/15/19 at 21:59; Status DC Acetaminophen/ Hydrocodone Bitart (Lortab 5/325) 1 tab PRN Q4HRS PRN PO MODERATE PAIN Last administered on 01/17/19 06:09; Start 01/14/19 at 21:45 Alprazolam (Xanax) 0.25 mg PRN Q8HRS PRN PO ANXIETY / AGITATION Last administered on 01/16/19 21:16; Start 01/14/19 at 21:45 Amlodipine Besylate (Norvasc) 10 mg DAILY PO Last administered on 01/16/19 09: 19; Start 01/15/19 at 09:00 Ascorbic Acid (Vitamin C) 500 mg DAILY PO Last administered on 01/16/19 09:18; Start 01/15/19 at 09:00 Ferrous Sulfate (Feosol) 325 mg DAILYWBKFT PO Last administered on 01/16/19 09: 24; Start 01/15/19 at 08:00 Ropinirole HCl (Requip) 3 mg QHS PO Last administered on 01/16/19 21:16; Start 01/14/19 at 22:00 Spironolactone (Aldactone) 25 mg DAILY PO Last administered on 01/16/19 09:24; Start 01/15/19 at 09:00 Docusate Sodium (Colace) 100 mg DAILY PO Last administered on 01/16/19 09:18; Start 01/15/19 at 09:00 Calcium Carbonate/ Glycine (Tums) 500 mg PRN AFTMEALHC PRN PO INDIGESTION Last administered on 01/16/19 13:20; Start 01/14/19 at 21:45 Duloxetine HCl (Cymbalta) 60 mg DAILY PO Last administered on 01/16/19 09:18; Start 01/15/19 at 09:00 Memantine (Namenda) 10 mg DAILY PO Last administered on 01/16/19 09:18; Start 01/15/19 at 09:00 Sodium Chloride 40 meq/Potassium Acetate 50 meq/ Potassium Phosphate 10 mmol/ Magnesium Sulfate 22 meq/ Multivitamins 10 ml/Chromium/ Copper/Manganese/ Seleni /Zn 1 ml/ Insulin Human Regular 10 unit/ Total Parenteral Nutrition/Amino Acids/ Dextrose/ Fat Emulsion Intravenous 1,512 ml @ 63 mls/hr TPN CONT IV Last administered on 01/15/19at 22:19; Start 01/15/19 at 22:00; Stop 01/16/19 at 21:59; Status DC Simethicone (Gas-X) 80 mg PRN AFTMEALHC PRN PO GAS / BLOATING Last administered on 01/16/19at 17:55; Start 01/15/19 at 16:45 Sodium Chloride 40 meq/Potassium Acetate 50 meq/ Potassium Phosphate 10 mmol/ Magnesium Sulfate 22 meq/ Multivitamins 10 ml/Chromium/ Copper/Manganese/ Seleni /Zn 1 ml/ Insulin Human Regular 10 unit/ Total Parenteral Nutrition/Amino Acids/ Dextrose/ Fat Emulsion Intravenous 1,512 ml @ 63 mls/hr TPN CONT IV ; Start at 22:00; Stop 01/16/19 at 22:00; Status DC Active Scripts Active Hydrocodone-Apap 5-325 (Hydrocodone Bit/Acetaminophen) 1 Tab Tablet 1 Tab PO PRN Q4HRS PRN Symbicort 80-4.5 Mcg Inhaler (Budesonide/Formoterol Fumarate) 10.2 Gm Hfa.aer.ad 1 Puff IH BID Duoneb 0.5-3(2.5) Mg/3 Ml (Albuterol/Ipratropium) 3 Ml Ampul.neb 3 Ml NEB BID [Bisacodyl] 10 MG Supp.rect 10 Mg GA PRN DAILY PRN Colace (Docusate Sodium) 100 Mg Capsule 100 Mg PO DAILY Humalog (Insulin Lispro) 100 Unit/1 Ml Insuln.pen 10 Units SQ TIDAC 30 Days Lantus Solostar (Insulin Glargine,Hum.rec.anlog) 100 Unit/1 Ml Insuln.pen 18 Units SQ DAILY10 30 Days [Pantoprazole] 40 MG Tablet.dr 40 Mg PO DAILYAC Alprazolam 0.25 Mg Tablet 0.25 Mg PO PRN Q8HRS PRN Cymbalta (Duloxetine Hcl) 30 Mg Capsule.dr 60 Mg PO DAILY Chlorhexidine Gluconate 473 Ml Mouthwash 473 Ml MM BID 7 Days Vitamin C (Ascorbate Calcium) 500 Mg Tablet 500 Mg PO DAILY 30 Days Slow Release Iron (Ferrous Sulfate) 250 Mg Tablet.er 250 Mg PO DAILY 30 Days Protonix (Pantoprazole Sodium) 40 Mg Granpkt.dr 40 Mg PO DAILY 30 Days Reported Metformin Hcl Er (Metformin Hcl) 500 Mg Tab.er.24h 1 Tab PO DAILY Namenda (Memantine Hcl) 10 Mg Tablet 1 Tab PO BID Losartan Potassium 100 Mg Tablet 100 Mg PO DAILY Spironolactone 25 Mg Tablet 1 Tab PO DAILY Ventolin Hfa Inhaler (Albuterol Sulfate) 18 Gm Hfa.aer.ad 2 Puff INH Q4HRS Requip (Ropinirole Hcl) 1 Mg Tablet 3 Mg PO DAILY Amlodipine Besylate 10 Mg Tablet 10 Mg PO DAILY Vitals/I & O Vital Sign - Last 24 Hours 01/16/19 01/16/19 01/16/19 01/16/19 08:15 09:08 09:19 11:00 Pulse 69 72 Resp 20 B/P (MAP) 162/85 139/82 (101) Pulse Ox 96 100 O2 Delivery Nasal Cannula Nasal Cannula Nasal Cannula O2 Flow Rate 3.0 3.0 3.0 01/16/19 01/16/19 01/16/19 01/16/19 11:20 15:00 15:20 17:55 Temp 98.7 98.7 Pulse 82 Resp 22 B/P (MAP) 150/78 (102) Pulse Ox 99 97 97 O2 Delivery Nasal Cannula Nasal Cannula Nasal Cannula Nasal Cannula O2 Flow Rate 3.0 3.0 3.0 3.0 01/16/19 01/16/19 01/16/19 01/16/19 19:00 19:09 19:32 20:00 Temp 98.1 98.1 Pulse 87 Resp 16 B/P (MAP) 142/73 (96) Pulse Ox 95 97 98 O2 Delivery Nasal Cannula Nasal Cannula Nasal Cannula O2 Flow Rate 3.0 3.0 3.0 01/16/19 01/16/19 01/16/19 01/16/19 21:17 22:17 22:38 23:00 Temp 97.7 97.7 Pulse 82 Resp 22 20 18 B/P (MAP) 140/83 (102) Pulse Ox 98 O2 Delivery Nasal Cannula Nasal Cannula Nasal Cannula O2 Flow Rate 3.0 3.0 3.0 01/17/19 01/17/19 01/17/19 01/17/19 03:00 03:31 06:09 07:00 Temp 97.9 97.8 97.9 97.8 Pulse 86 86 Resp 18 20 22 B/P (MAP) 156/85 (108) 151/91 (111) Pulse Ox 100 98 93 O2 Delivery Nasal Cannula Nasal Cannula Nasal Cannula Nasal Cannula O2 Flow Rate 3.0 3.0 3.0 3.0 01/17/19 01/17/19 01/17/19 07:10 07:16 07:17 Pulse Ox 99 O2 Delivery Nasal Cannula Nasal Cannula Nasal Cannula O2 Flow Rate 3.0 3.0 3.0 FLORY NEAL MD Jan 17, 2019 08:10
[2019-01-17] MEDS: MEMANTINE 10 MG TABLET. PO SCH (08:11)
[2019-01-17] MEDS: DULoxetine HCL 30 MG CAPSULE.DR PO SCH (08:11)
[2019-01-17] MEDS: FERROUS SULFATE 325 MG TABLET. PO SCH (08:11)
[2019-01-17] MEDS: SPIRONOLACTONE 25 MG TABLET PO SCH (08:11)
[2019-01-17] MEDS: amLODIPine BESYLATE 10 MG TABLET PO SCH (08:11)
[2019-01-17] MEDS: ENOXAPARIN 40 MG/0.4 ML SYRINGE. SQ SCH (08:12)
[2019-01-17] MEDS: CHLORHEXIDINE 0.12% 15 ML MOUTHWASH. MM SCH (08:12)
[2019-01-17] MEDS: ONDANSETRON PF 4 MG/2 ML VIAL. IV PRN (08:20)
--- NOTE | 2019-01-17 09:07 | PDOC ---
SURGICAL PROGRESS NOTE Subjective Patient doing well, wants to get out of hospital Vital Signs Vital Signs Date Time Temp Pulse Resp B/P (MAP) Pulse Ox O2 Delivery O2 Flow Rate FiO2 01/17/19 08:11 86 151/91 01/17/19 07:17 Nasal Cannula 3.0 01/17/19 07:10 99 01/17/19 07:00 97.8 22 97.8 I&O Intake and Output 01/17/19 06:59 # Voids 8 # Bowel Movements 1 PATIENT HAS A PILLAI: No General: Alert, Oriented X3, Cooperative, No acute distress Abdomen: Normal bowel sounds, Soft, No tenderness, Other (wound c/d/i) Labs Laboratory Tests Test 01/15/19 12:02 01/15/19 17:45 01/16/19 00:14 01/16/19 05:45 Glucose (Fingerstick) 126 mg/dL (70-99) 157 mg/dL (70-99) 148 mg/dL (70-99) 172 mg/dL (70-99) Test 01/16/19 11:32 01/16/19 17:52 01/17/19 00:34 01/17/19 06:08 Glucose (Fingerstick) 143 mg/dL (70-99) 118 mg/dL (70-99) 184 mg/dL (70-99) 118 mg/dL (70-99) Test 01/17/19 06:30 White Blood Count 8.4 x10^3/uL (4.0-11.0) Red Blood Count 3.00 x10^6/uL (3.50-5.40) Hemoglobin 7.0 g/dL (12.0-15.5) Hematocrit 22.2 % (36.0-47.0) Mean Corpuscular Volume 74 fL (79-100) Mean Corpuscular Hemoglobin 23 pg (25-35) Mean Corpuscular Hemoglobin Concent 32 g/dL (31-37) Red Cell Distribution Width 24.4 % (11.5-14.5) Platelet Count 275 x10^3/uL (140-400) Neutrophils (%) (Auto) 70 % (31-73) Lymphocytes (%) (Auto) 19 % (24-48) Monocytes (%) (Auto) 8 % (0-9) Eosinophils (%) (Auto) 3 % (0-3) Basophils (%) (Auto) 1 % (0-3) Neutrophils # (Auto) 5.9 x10^3uL (1.8-7.7) Lymphocytes # (Auto) 1.6 x10^3/uL (1.0-4.8) Monocytes # (Auto) 0.7 x10^3/uL (0.0-1.1) Eosinophils # (Auto) 0.2 x10^3/uL (0.0-0.7) Basophils # (Auto) 0.0 x10^3/uL (0.0-0.2) Sodium Level 137 mmol/L (136-145) Potassium Level 4.1 mmol/L (3.5-5.1) Chloride Level 98 mmol/L (98-107) Carbon Dioxide Level 33 mmol/L (21-32) Anion Gap 6 (6-14) Blood Urea Nitrogen 10 mg/dL (7-20) Creatinine 0.6 mg/dL (0.6-1.0) Estimated GFR (Cockcroft-Gault) 117.9 Glucose Level 115 mg/dL (70-99) Calcium Level 8.3 mg/dL (8.5-10.1) Laboratory Tests Test 01/16/19 11:32 01/16/19 17:52 01/17/19 00:34 01/17/19 06:08 Glucose (Fingerstick) 143 mg/dL (70-99) 118 mg/dL (70-99) 184 mg/dL (70-99) 118 mg/dL (70-99) Test 01/17/19 06:30 White Blood Count 8.4 x10^3/uL (4.0-11.0) Red Blood Count 3.00 x10^6/uL (3.50-5.40) Hemoglobin 7.0 g/dL (12.0-15.5) Hematocrit 22.2 % (36.0-47.0) Mean Corpuscular Volume 74 fL (79-100) Mean Corpuscular Hemoglobin 23 pg (25-35) Mean Corpuscular Hemoglobin Concent 32 g/dL (31-37) Red Cell Distribution Width 24.4 % (11.5-14.5) Platelet Count 275 x10^3/uL (140-400) Neutrophils (%) (Auto) 70 % (31-73) Lymphocytes (%) (Auto) 19 % (24-48) Monocytes (%) (Auto) 8 % (0-9) Eosinophils (%) (Auto) 3 % (0-3) Basophils (%) (Auto) 1 % (0-3) Neutrophils # (Auto) 5.9 x10^3uL (1.8-7.7) Lymphocytes # (Auto) 1.6 x10^3/uL (1.0-4.8) Monocytes # (Auto) 0.7 x10^3/uL (0.0-1.1) Eosinophils # (Auto) 0.2 x10^3/uL (0.0-0.7) Basophils # (Auto) 0.0 x10^3/uL (0.0-0.2) Sodium Level 137 mmol/L (136-145) Potassium Level 4.1 mmol/L (3.5-5.1) Chloride Level 98 mmol/L (98-107) Carbon Dioxide Level 33 mmol/L (21-32) Anion Gap 6 (6-14) Blood Urea Nitrogen 10 mg/dL (7-20) Creatinine 0.6 mg/dL (0.6-1.0) Estimated GFR (Cockcroft-Gault) 117.9 Glucose Level 115 mg/dL (70-99) Calcium Level 8.3 mg/dL (8.5-10.1) Assessment/Plan S/P right colon resection and SBO resolved Hgb 7.0 likely from chronic illness Ok for rehab from surgical POV DAYLIN WEI MD Jan 17, 2019 09:07
--- NOTE | 2019-01-17 09:36 | PDOC ---
Subjective: Subjective: Doing better, says eating and stooling without issue, would like to get out of the hospital. Objective: Objective: Reviewed w/ RN - tolerating soft diet, plans for transfusion w/ Hgb 7, no bleeding, possible DC to [facility] today. Vital Signs: Vital Signs Date Time Temp Pulse Resp B/P (MAP) Pulse Ox O2 Delivery O2 Flow Rate FiO2 01/17/19 08:11 86 151/91 01/17/19 07:17 Nasal Cannula 3.0 01/17/19 07:10 99 01/17/19 07:00 97.8 22 97.8 Labs: Laboratory Tests Test 01/16/19 11:32 01/16/19 17:52 01/17/19 00:34 01/17/19 06:08 Glucose (Fingerstick) 143 mg/dL 118 mg/dL 184 mg/dL 118 mg/dL Test 01/17/19 06:30 White Blood Count 8.4 x10^3/uL Red Blood Count 3.00 x10^6/uL Hemoglobin 7.0 g/dL Hematocrit 22.2 % Mean Corpuscular Volume 74 fL Mean Corpuscular Hemoglobin 23 pg Mean Corpuscular Hemoglobin Concent 32 g/dL Red Cell Distribution Width 24.4 % Platelet Count 275 x10^3/uL Neutrophils (%) (Auto) 70 % Lymphocytes (%) (Auto) 19 % Monocytes (%) (Auto) 8 % Eosinophils (%) (Auto) 3 % Basophils (%) (Auto) 1 % Neutrophils # (Auto) 5.9 x10^3uL Lymphocytes # (Auto) 1.6 x10^3/uL Monocytes # (Auto) 0.7 x10^3/uL Eosinophils # (Auto) 0.2 x10^3/uL Basophils # (Auto) 0.0 x10^3/uL Sodium Level 137 mmol/L Potassium Level 4.1 mmol/L Chloride Level 98 mmol/L Carbon Dioxide Level 33 mmol/L Anion Gap 6 Blood Urea Nitrogen 10 mg/dL Creatinine 0.6 mg/dL Estimated GFR (Cockcroft-Gault) 117.9 Glucose Level 115 mg/dL Calcium Level 8.3 mg/dL PE: GEN: NAD LUNGS: NC HEART: RRR ABD: less distended, soft NEURO/PSYCH: A & O 3 A/P: Post-op ileus - resolved Anemia - chronic, Hgb to 7 w/o bleeding, plans for transfusion -- Improved. DC to rehab per primary. RADHA JUSTICE Jan 17, 2019 09:36
[2019-01-17] MEDS: INSULIN GLARGINE 300 UNITS/3 ML INSULN.PEN. SQ SCH (09:41)
--- NOTE | 2019-01-17 11:56 | NUR ---
Pt's BS was 64, pt drank 1/2 cup of apple juice. Pt. drowsy. BS rechecked at 1147, 52. D50 given. Will continue to monitor.
--- NOTE | 2019-01-17 13:33 | NUR ---
SW following. Discussed with RN, pt getting blood today. SW faxed updates to [facility], awaiting insurance approval. LATANYA will continue to follow.
--- NOTE | 2019-01-17 15:10 | NUR ---
SW following. [facility] will transport pt at 1630. RN notified. Pt choice and rights letter signed and placed on chart.
--- NOTE | 2019-01-17 15:55 | PDOC3 ---
Discharge Summary Visit Information Date of Admission: Dec 14, 2018 Date of Discharge: Jan 17, 2019 Admitting Diagnosis: acute abd pain Final Diagnosis Right hemicolectomy Brief Hospital Course Allergies Allergies Coded Allergies Type Severity Reaction Last Updated Verified Penicillins Allergy Intermediate 12/16/18 Yes Vital Signs Vital Signs Date Time Temp Pulse Resp B/P (MAP) Pulse Ox O2 Delivery O2 Flow Rate FiO2 01/17/19 15:00 98.0 78 20 149/89 (109) 97 Nasal Cannula 3.0 98.0 Lab Results Laboratory Tests Test 01/15/19 17:45 01/16/19 00:14 01/16/19 05:45 01/16/19 11:32 Glucose (Fingerstick) 157 mg/dL (70-99) 148 mg/dL (70-99) 172 mg/dL (70-99) 143 mg/dL (70-99) Test 01/16/19 17:52 01/17/19 00:34 01/17/19 06:08 01/17/19 06:30 Glucose (Fingerstick) 118 mg/dL (70-99) 184 mg/dL (70-99) 118 mg/dL (70-99) White Blood Count 8.4 x10^3/uL (4.0-11.0) Red Blood Count 3.00 x10^6/uL (3.50-5.40) Hemoglobin 7.0 g/dL (12.0-15.5) Hematocrit 22.2 % (36.0-47.0) Mean Corpuscular Volume 74 fL (79-100) Mean Corpuscular Hemoglobin 23 pg (25-35) Mean Corpuscular Hemoglobin Concent 32 g/dL (31-37) Red Cell Distribution Width 24.4 % (11.5-14.5) Platelet Count 275 x10^3/uL (140-400) Neutrophils (%) (Auto) 70 % (31-73) Lymphocytes (%) (Auto) 19 % (24-48) Monocytes (%) (Auto) 8 % (0-9) Eosinophils (%) (Auto) 3 % (0-3) Basophils (%) (Auto) 1 % (0-3) Neutrophils # (Auto) 5.9 x10^3uL (1.8-7.7) Lymphocytes # (Auto) 1.6 x10^3/uL (1.0-4.8) Monocytes # (Auto) 0.7 x10^3/uL (0.0-1.1) Eosinophils # (Auto) 0.2 x10^3/uL (0.0-0.7) Basophils # (Auto) 0.0 x10^3/uL (0.0-0.2) Sodium Level 137 mmol/L (136-145) Potassium Level 4.1 mmol/L (3.5-5.1) Chloride Level 98 mmol/L (98-107) Carbon Dioxide Level 33 mmol/L (21-32) Anion Gap 6 (6-14) Blood Urea Nitrogen 10 mg/dL (7-20) Creatinine 0.6 mg/dL (0.6-1.0) Estimated GFR (Cockcroft-Gault) 117.9 Glucose Level 115 mg/dL (70-99) Calcium Level 8.3 mg/dL (8.5-10.1) Test 01/17/19 09:39 01/17/19 11:30 01/17/19 11:48 01/17/19 12:08 Glucose (Fingerstick) 95 mg/dL (70-99) 64 mg/dL (70-99) 52 mg/dL (70-99) 105 mg/dL (70-99) Test 01/17/19 14:15 Hemoglobin 8.6 g/dL (12.0-15.5) Laboratory Tests Test 01/16/19 17:52 01/17/19 00:34 01/17/19 06:08 01/17/19 06:30 Glucose (Fingerstick) 118 mg/dL (70-99) 184 mg/dL (70-99) 118 mg/dL (70-99) White Blood Count 8.4 x10^3/uL (4.0-11.0) Red Blood Count 3.00 x10^6/uL (3.50-5.40) Hemoglobin 7.0 g/dL (12.0-15.5) Hematocrit 22.2 % (36.0-47.0) Mean Corpuscular Volume 74 fL (79-100) Mean Corpuscular Hemoglobin 23 pg (25-35) Mean Corpuscular Hemoglobin Concent 32 g/dL (31-37) Red Cell Distribution Width 24.4 % (11.5-14.5) Platelet Count 275 x10^3/uL (140-400) Neutrophils (%) (Auto) 70 % (31-73) Lymphocytes (%) (Auto) 19 % (24-48) Monocytes (%) (Auto) 8 % (0-9) Eosinophils (%) (Auto) 3 % (0-3) Basophils (%) (Auto) 1 % (0-3) Neutrophils # (Auto) 5.9 x10^3uL (1.8-7.7) Lymphocytes # (Auto) 1.6 x10^3/uL (1.0-4.8) Monocytes # (Auto) 0.7 x10^3/uL (0.0-1.1) Eosinophils # (Auto) 0.2 x10^3/uL (0.0-0.7) Basophils # (Auto) 0.0 x10^3/uL (0.0-0.2) Sodium Level 137 mmol/L (136-145) Potassium Level 4.1 mmol/L (3.5-5.1) Chloride Level 98 mmol/L (98-107) Carbon Dioxide Level 33 mmol/L (21-32) Anion Gap 6 (6-14) Blood Urea Nitrogen 10 mg/dL (7-20) Creatinine 0.6 mg/dL (0.6-1.0) Estimated GFR (Cockcroft-Gault) 117.9 Glucose Level 115 mg/dL (70-99) Calcium Level 8.3 mg/dL (8.5-10.1) Test 01/17/19 09:39 01/17/19 11:30 01/17/19 11:48 01/17/19 12:08 Glucose (Fingerstick) 95 mg/dL (70-99) 64 mg/dL (70-99) 52 mg/dL (70-99) 105 mg/dL (70-99) Test 01/17/19 14:15 Hemoglobin 8.6 g/dL (12.0-15.5) Brief Hospital Course Ms. Mccray is a 73 -[place] female with history of COPD, who came in with a GI bleed. The patient had workup done including colonoscopy and found to have bleeding ulcer in the colon. The patient underwent a right hemicolectomy on 12/17/2018. Then white cound went up, hypoxia, treated for poss infection, ID consult, PULM consult, returned to OR 11/29 for Small bowel obstruction at previous anastomotic site Dr. Montoya Exploratory laparotomy with extended right hemicolectomy and primary anastomosis then poor PO intake, malnutrition, req. TPN, then ileus, weakness, confusion , hypoxia, complicated hospital course, but better at DC GI, PUlM, ID, surg consult following to SNU Hb 7 this morning, 1x PRBC ordered taper off the TPN, she has eaten > 50%, about 75% of breakfast today, cont PO intake discussed with surg team Greater than 30 minutes spent on d/c including coordination for SNF care Discharge Information Condition at Discharge: Improved Follow Up: Weeks (2) Disposition/Orders: D/C to Another Facility ([facility]) Scheduled Albuterol Sulfate (Ventolin Hfa Inhaler) 18 Gm Hfa.aer.ad, 2 PUFF INH Q4HRS for FOR ASTHMA, Ref 0 (Reported) Entered as Reported by: CHARLENE DEL CASTILLO on 11/11/16 1711 Last Action: Converted on 12/14/181611 by DAYLIN MILLER MD Amlodipine Besylate (Amlodipine Besylate) 10 Mg Tablet, 10 MG PO DAILY, ( Reported) Entered as Reported by: PITA GARG on 01/27/16 0455 Last Action: Continued on 12/14/181611 by DAYLIN MILLER MD Ascorbate Calcium (Vitamin C) 500 Mg Tablet, 500 MG PO DAILY for with iron for 30 Days, #30 Ref 2 Prescribed by: FLORY NEAL MD on 11/22/18 1613 Last Action: Converted on 12/14/181611 by DAYLIN MILLER MD Budesonide/Formoterol Fumarate (Symbicort 80-4.5 Mcg Inhaler) 10.2 Gm Hfa.aer.ad , 1 PUFF IH BID for COPD, #10.2 Ref 5 Prescribed by: RADAMES MÉNDEZ on 01/15/19 1006 Chlorhexidine Gluconate (Chlorhexidine Gluconate) 473 Ml Mouthwash, 473 ML MM BID for 7 Days, #1 Prescribed by: OLYA MORE APRN on 12/10/182 Last Action: Continued on 12/14/181611 by DAYLIN MILLER MD Docusate Sodium (Colace) 100 Mg Capsule, 100 MG PO DAILY for stool softener, #90 Prescribed by: RADAMES MÉNDEZ on 01/15/19 1006 Duloxetine Hcl (Cymbalta) 30 Mg Capsule.dr, 60 MG PO DAILY for pain, mood, #30 Prescribed by: RADAMES MÉNDEZ on 01/15/19 1006 Ferrous Sulfate (Slow Release Iron) 250 Mg Tablet.er, 250 MG PO DAILY for GI bleed for 30 Days, #30 Ref 2 Prescribed by: FLORY NEAL MD on 11/22/181612 Last Action: Converted on 12/14/181611 by DAYLIN MILLER MD Insulin Glargine,Hum.rec.anlog (Lantus Solostar) 100 Unit/1 Ml Insuln.pen, 18 UNITS SQ DAILY10 for diabetes for 30 Days Prescribed by: RADAMES MÉNDEZ on 01/15/19 1006 Insulin Lispro (Humalog) 100 Unit/1 Ml Insuln.pen, 10 UNITS SQ TIDAC for diabetes for 30 Days Prescribed by: RADAMES MÉNDEZ on 01/15/19 1006 Ipratropium/Albuterol Sulfate (Duoneb 0.5-3(2.5) Mg/3 Ml) 3 Ml Ampul.neb, 3 ML NEB BID for COPD, #60 Prescribed by: RADAMES MÉNDEZ on 01/15/19 1006 Losartan Potassium (Losartan Potassium) 100 Mg Tablet, 100 MG PO DAILY, ( Reported) Entered as Reported by: CHARLENE DEL CASTILLO on 11/12/161834 Last Action: Converted on 12/14/181611 by DAYLIN MILLER MD Memantine Hcl (Namenda) 10 Mg Tablet, 1 TAB PO BID, #180 Ref 1 (Reported) Entered as Reported by: CHARLENE DEL CASTILLO on 11/12/161834 Last Action: Converted on 12/14/181611 by DAYLIN MILLER MD Metformin Hcl (Metformin Hcl Er) 500 Mg Tab.er.24h, 1 TAB PO DAILY, #90 Ref 3 ( Reported) Entered as Reported by: CHARLENE DEL CASTILLO on 11/12/161834 Last Action: HELD on 12/14/181611 by DAYLIN MILLER MD Pantoprazole Sodium (Protonix) 40 Mg Granpkt.dr, 40 MG PO DAILY for GI BLEEDING for 30 Days, #30 Ref 2 Prescribed by: FLORY NEAL MD on 11/22/181612 Last Action: Converted on 12/14/181611 by DAYLIN MILLER MD Ropinirole Hcl (Requip) 1 Mg Tablet, 3 MG PO DAILY, (Reported) Entered as Reported by: PITA GARG on 01/27/16 0455 Last Action: Converted on 12/14/181611 by DAYLIN MILLER MD Spironolactone (Spironolactone) 25 Mg Tablet, 1 TAB PO DAILY, #90 Ref 1 ( Reported) Entered as Reported by: CHARLENE DEL CASTILLO on 11/12/16 1835 Last Action: Converted on 12/14/181611 by DAYLIN MILLER MD [Pantoprazole] 40 MG TABLET.DR, 40 MG PO DAILYAC for stomach, #30 Prescribed by: RADAMES MÉNDEZ on 01/15/19 1006 Scheduled PRN Alprazolam (Alprazolam) 0.25 Mg Tablet, 0.25 MG PO PRN Q8HRS PRN for ANXIETY / AGITATION, #30 Prescribed by: RADAMES MÉNDEZ on 01/15/19 1006 Hydrocodone Bit/Acetaminophen (Hydrocodone-Apap 5-325 ) 1 Tab Tablet, 1 TAB PO PRN Q4HRS PRN for MODERATE PAIN, #40 Prescribed by: RADAMES MÉNDEZ on 01/15/19 1023 [Bisacodyl] 10 MG SUPP.RECT, 10 MG KS PRN DAILY PRN for CONSTIPATION 1ST CHOICE , #10 Prescribed by: RADAMES MÉNDEZ on 01/15/19 1006 Discontinued Medications Alprazolam (Alprazolam) 0.25 Mg Tablet, 0.25 MG PO DAILY for ANXIETY, (Reported) Entered as Reported by: BRENNAN MATUTE on 12/23/182212 Last Taken: Unknown Dose on Unknown Date & Time Last Action: New Order on 12/23/182212 by BRENNAN MATUTE Duloxetine Hcl (Cymbalta) 20 Mg Capsule.dr, 90 MG PO DAILY, (Reported) Entered as Reported by: PITA GARG on 01/27/16 0510 Last Action: Converted on 12/14/181611 by MD ÁNGEL HELMS CHRISTOPHER S MD Jan 17, 2019 15:55
--- NOTE | 2019-01-17 16:54 | PDOC ---
PULMONARY PROGRESS NOTES Subjective UP IN CHAIR NOT SOA LIQUIDS DIET Vitals Vital Signs Date Time Temp Pulse Resp B/P (MAP) Pulse Ox O2 Delivery O2 Flow Rate FiO2 01/17/19 15:00 98.0 78 20 149/89 (109) 97 Nasal Cannula 3.0 98.0 ROS: No Nausea, No Chest Pain General: Alert, Mild Distress HEENT: Other (nc at perrl nose throat clear neck +JVD no lad, no thyromegaly ) Lungs: Clear Cardiovascular: S1, S2 Abdomen: Soft, Non-tender, Other (distended) Neuro Exam: Alert, Oriented Extremities: No Edema Skin: Warm Labs Laboratory Tests Test 01/15/19 17:45 01/16/19 00:14 01/16/19 05:45 01/16/19 11:32 Glucose (Fingerstick) 157 mg/dL (70-99) 148 mg/dL (70-99) 172 mg/dL (70-99) 143 mg/dL (70-99) Test 01/16/19 17:52 01/17/19 00:34 01/17/19 06:08 01/17/19 06:30 Glucose (Fingerstick) 118 mg/dL (70-99) 184 mg/dL (70-99) 118 mg/dL (70-99) White Blood Count 8.4 x10^3/uL (4.0-11.0) Red Blood Count 3.00 x10^6/uL (3.50-5.40) Hemoglobin 7.0 g/dL (12.0-15.5) Hematocrit 22.2 % (36.0-47.0) Mean Corpuscular Volume 74 fL (79-100) Mean Corpuscular Hemoglobin 23 pg (25-35) Mean Corpuscular Hemoglobin Concent 32 g/dL (31-37) Red Cell Distribution Width 24.4 % (11.5-14.5) Platelet Count 275 x10^3/uL (140-400) Neutrophils (%) (Auto) 70 % (31-73) Lymphocytes (%) (Auto) 19 % (24-48) Monocytes (%) (Auto) 8 % (0-9) Eosinophils (%) (Auto) 3 % (0-3) Basophils (%) (Auto) 1 % (0-3) Neutrophils # (Auto) 5.9 x10^3uL (1.8-7.7) Lymphocytes # (Auto) 1.6 x10^3/uL (1.0-4.8) Monocytes # (Auto) 0.7 x10^3/uL (0.0-1.1) Eosinophils # (Auto) 0.2 x10^3/uL (0.0-0.7) Basophils # (Auto) 0.0 x10^3/uL (0.0-0.2) Sodium Level 137 mmol/L (136-145) Potassium Level 4.1 mmol/L (3.5-5.1) Chloride Level 98 mmol/L (98-107) Carbon Dioxide Level 33 mmol/L (21-32) Anion Gap 6 (6-14) Blood Urea Nitrogen 10 mg/dL (7-20) Creatinine 0.6 mg/dL (0.6-1.0) Estimated GFR (Cockcroft-Gault) 117.9 Glucose Level 115 mg/dL (70-99) Calcium Level 8.3 mg/dL (8.5-10.1) Test 01/17/19 09:39 01/17/19 11:30 01/17/19 11:48 01/17/19 12:08 Glucose (Fingerstick) 95 mg/dL (70-99) 64 mg/dL (70-99) 52 mg/dL (70-99) 105 mg/dL (70-99) Test 01/17/19 14:15 Hemoglobin 8.6 g/dL (12.0-15.5) Laboratory Tests Test 01/16/19 17:52 01/17/19 00:34 01/17/19 06:08 01/17/19 06:30 Glucose (Fingerstick) 118 mg/dL (70-99) 184 mg/dL (70-99) 118 mg/dL (70-99) White Blood Count 8.4 x10^3/uL (4.0-11.0) Red Blood Count 3.00 x10^6/uL (3.50-5.40) Hemoglobin 7.0 g/dL (12.0-15.5) Hematocrit 22.2 % (36.0-47.0) Mean Corpuscular Volume 74 fL (79-100) Mean Corpuscular Hemoglobin 23 pg (25-35) Mean Corpuscular Hemoglobin Concent 32 g/dL (31-37) Red Cell Distribution Width 24.4 % (11.5-14.5) Platelet Count 275 x10^3/uL (140-400) Neutrophils (%) (Auto) 70 % (31-73) Lymphocytes (%) (Auto) 19 % (24-48) Monocytes (%) (Auto) 8 % (0-9) Eosinophils (%) (Auto) 3 % (0-3) Basophils (%) (Auto) 1 % (0-3) Neutrophils # (Auto) 5.9 x10^3uL (1.8-7.7) Lymphocytes # (Auto) 1.6 x10^3/uL (1.0-4.8) Monocytes # (Auto) 0.7 x10^3/uL (0.0-1.1) Eosinophils # (Auto) 0.2 x10^3/uL (0.0-0.7) Basophils # (Auto) 0.0 x10^3/uL (0.0-0.2) Sodium Level 137 mmol/L (136-145) Potassium Level 4.1 mmol/L (3.5-5.1) Chloride Level 98 mmol/L (98-107) Carbon Dioxide Level 33 mmol/L (21-32) Anion Gap 6 (6-14) Blood Urea Nitrogen 10 mg/dL (7-20) Creatinine 0.6 mg/dL (0.6-1.0) Estimated GFR (Cockcroft-Gault) 117.9 Glucose Level 115 mg/dL (70-99) Calcium Level 8.3 mg/dL (8.5-10.1) Test 01/17/19 09:39 01/17/19 11:30 01/17/19 11:48 01/17/19 12:08 Glucose (Fingerstick) 95 mg/dL (70-99) 64 mg/dL (70-99) 52 mg/dL (70-99) 105 mg/dL (70-99) Test 01/17/19 14:15 Hemoglobin 8.6 g/dL (12.0-15.5) Medications Active Scripts Medications Dose Route/Sig Max Daily Dose Days Date Category Chlorhexidine Gluconate 473 Ml Mouthwash 473 Ml MM BID 7 12/10/18 Rx Vitamin C (Ascorbate Calcium) 500 Mg Tablet 500 Mg PO DAILY 30 11/22/18 Rx Slow Release Iron (Ferrous Sulfate) 250 Mg Tablet.er 250 Mg PO DAILY 30 11/22/18 Rx Protonix (Pantoprazole Sodium) 40 Mg Granpkt.dr 40 Mg PO DAILY 30 11/22/18 Rx Metformin Hcl Er (Metformin Hcl) 500 Mg Tab.er.24h 1 Tab PO DAILY 11/12/16 Reported Namenda (Memantine Hcl) 10 Mg Tablet 1 Tab PO BID 11/12/16 Reported Losartan Potassium 100 Mg Tablet 100 Mg PO DAILY 11/12/16 Reported Spironolactone 25 Mg Tablet 1 Tab PO DAILY 11/12/16 Reported Ventolin Hfa Inhaler (Albuterol Sulfate) 18 Gm Hfa.aer.ad 2 Puff INH Q4HRS 11/11/16 Reported Cymbalta (Duloxetine Hcl) 20 Mg Capsule.dr 90 Mg PO DAILY 01/27/16 Reported Requip (Ropinirole Hcl) 1 Mg Tablet 3 Mg PO DAILY 01/27/16 Reported Amlodipine Besylate 10 Mg Tablet 10 Mg PO DAILY 01/27/16 Reported Comments cxr reviewed, b lat ll effusion/atelectasis/infilt L>R Impression . 1. Acute hypoxic respiratory failure MULTIFACTORIAL EXPECTED POST SURGICAL INTERVENTION 2. Gastrointestinal bleed/cecal ulceration by colonoscopy, status post laparoscopic-assisted right colon resection and hemorrhoidectomy 12/17 3. ileus S/P SECOND SURGERY 12/30 SEE BELOW 4. Underlying suspected severe chronic obstructive pulmonary disease. 5. Abnormal CT chest with focal opacity in the right upper lobe, could be nodule/ATELECTASIS Date: 12/17/2018 Preoperative diagnosis: GI bleed cecal ulceration by colonoscopy with active bleeding hemorrhoids Postoperative diagnosis: Same Procedure: Laparoscopic-assisted right colon resection and hemorrhoidectomy Surgeon: Jan Specimen: Right colon and hemorrhoids Date: 12/30/2018 Preoperative diagnosis: Small bowel obstruction Postoperative diagnosis: Small bowel obstruction at previous anastomotic site Procedure: Exploratory laparotomy with extended right hemicolectomy and primary anastomosis Plan . OK TO D/C FOLLOW UP CT IN 3 MONTHS, dr valentine discussed w DAUGHTER MARIA ALEJANDRA VALENTINE MD Jan 17, 2019 16:54
--- NOTE | 2019-01-17 17:05 | NUR ---
Pt. transferred to [place] via per transportation, family with pt.
== END 2019-01-17 17:06 | DRG 853 ==
LOC: ER 13:02 → 5 NORTH 13:39 → 4 NORTH 12-17 10:57 → 1 WEST ICU 12-22 13:22 → 4 NORTH 12-23 11:33 → 1 WEST ICU 12-30 17:45 → 4 NORTH 12-31 12:19
PROVIDERS: ADMIT Family Medicine; ATTEND Family Medicine
PROC: 30233N1 Transfusion of Nonautologous Red Blood Cells into Peripheral Vein, Percutaneous Approach (ICD-10-PCS; 2018-12-14)
PROC: 0W3P8ZZ Control Bleeding in Gastrointestinal Tract, Via Natural or Artificial Opening Endoscopic (ICD-10-PCS; 2018-12-16)
PROC: 0DTF4ZZ Resection of Right Large Intestine, Percutaneous Endoscopic Approach (ICD-10-PCS; principal; 2018-12-17 08:00)
PROC: 06BY3ZC Excision of Hemorrhoidal Plexus, Percutaneous Approach (ICD-10-PCS; 2018-12-17 08:00)
PROC: 02HV33Z Insertion of Infusion Device into Superior Vena Cava, Percutaneous Approach (ICD-10-PCS; 2018-12-23)
PROC: B5181ZA Fluoroscopy of Superior Vena Cava using Low Osmolar Contrast, Guidance (ICD-10-PCS; 2018-12-23)
PROC: B548ZZA Ultrasonography of Superior Vena Cava, Guidance (ICD-10-PCS; 2018-12-23)
PROC: 5A09357 Assistance with Respiratory Ventilation, Less than 24 Consecutive Hours, Continuous Positive Airway Pressure (ICD-10-PCS; 2018-12-30)
PROC: 0DTF0ZZ Resection of Right Large Intestine, Open Approach (ICD-10-PCS; 2018-12-30)
PROC: 5A09357 Assistance with Respiratory Ventilation, Less than 24 Consecutive Hours, Continuous Positive Airway Pressure (ICD-10-PCS; 2018-12-31)
PROC: 5A09357 Assistance with Respiratory Ventilation, Less than 24 Consecutive Hours, Continuous Positive Airway Pressure (ICD-10-PCS; 2019-01-07)
PROC: 5A09357 Assistance with Respiratory Ventilation, Less than 24 Consecutive Hours, Continuous Positive Airway Pressure (ICD-10-PCS; 2019-01-09)
DX: A41.9 Sepsis, unspecified organism (principal); N17.0 Acute kidney failure with tubular necrosis; J96.01 Acute respiratory failure with hypoxia; J18.9 Pneumonia, unspecified organism; K28.4 Chronic or unspecified gastrojejunal ulcer with hemorrhage; K56.7 Ileus, unspecified; K56.609 Unspecified intestinal obstruction, unspecified as to partial versus complete obstruction; J98.11 Atelectasis; J90 Pleural effusion, not elsewhere classified; J44.1 Chronic obstructive pulmonary disease with (acute) exacerbation; E46 Unspecified protein-calorie malnutrition; J44.0 Chronic obstructive pulmonary disease with (acute) lower respiratory infection; K91.89 Other postprocedural complications and disorders of digestive system; R18.8 Other ascites; K64.2 Third degree hemorrhoids; K64.4 Residual hemorrhoidal skin tags; K64.8 Other hemorrhoids; D50.0 Iron deficiency anemia secondary to blood loss (chronic); Z99.81 Dependence on supplemental oxygen; D63.8 Anemia in other chronic diseases classified elsewhere; T38.0X5A Adverse effect of glucocorticoids and synthetic analogues, initial encounter; E78.00 Pure hypercholesterolemia, unspecified; E83.42 Hypomagnesemia; F17.210 Nicotine dependence, cigarettes, uncomplicated; F41.9 Anxiety disorder, unspecified; I10 Essential (primary) hypertension; K29.70 Gastritis, unspecified, without bleeding; Z88.0 Allergy status to penicillin; R41.3 Other amnesia; E11.65 Type 2 diabetes mellitus with hyperglycemia; K55.20 Angiodysplasia of colon without hemorrhage; K57.30 Diverticulosis of large intestine without perforation or abscess without bleeding; Q27.9 Congenital malformation of peripheral vascular system, unspecified; Z79.4 Long term (current) use of insulin; Z90.49 Acquired absence of other specified parts of digestive tract; Y92.89 Other specified places as the place of occurrence of the external cause; Z79.899 Other long term (current) drug therapy
CPT/HCPCS: 36415; 36569; 36600; 45380; 71045; 71046; 71250; 74018; 74021; 74022; 74176; 74250; 76937; 77001; 78278; 80048; 80053; 81001; 82140; 82805; 82962; 83605; 83735; 84100; 84145; 84478; 85007; 85014; 85018; 85025; 85027; 85610; 85651; 85730; 86850; 86900; 86901; 86920; 87040; 87070; 87205; 87493; 87641; 88304; 88307; 93005; 93971; 94640; 94660; 94760; 96360; 96374; A7015; A9560; C1751; C1892; C9113; G0238; J0330; J0610; J0692; J0696; J1100; J1170; J1650; J1720; J1815; J1885; J1940; J1956; J2001; J2060; J2185; J2270; J2405; J2704; J2710; J3010; J3370; J3475; J3480; J3490; J7030; J7040; J7042; J7050; J7120; J7613; J7620; J7626; P9016; P9045; P9046; Q9967; 97110; 97116; 97530; 97535; 99285-25

== ENCOUNTER 2019-02-05 22:52 | Inpatient (IN) | payer MEDICARE ==
[~2019-02-05] VITALS: Ht 170.2 cm; Wt 70.3 kg
[~2019-02-05 22:52] MED LIST changes: +ALPR0.254 PO; +BISACODYL PR; +BUDE10.22 IH; +DOCU-109 PO; +DULO30CA2 PO; +HYDR-2761 PO; +INSU100I11 SQ; +INSU100I13 SQ; +IPRA3AMP29 NEB; +Pantoprazole PO
[2019-02-05] MEDS ORDERED: IPRATRPIUM/ALBUTEROL 0.5/2.5MG 3 ML NEBU. NEB ONE (23:30)
[2019-02-05] MEDS ORDERED: methylPREDNISolone SOD SUCC PF 125 MG/2 ML VIAL. IV ONE (23:30)
[2019-02-05 23:53] LABS: CALCIUM 9.5 mg/dL (8.5-10.1); CREATININE 0.8 mg/dL (0.6-1.0); GFR 84.6; POTASSIUM 4.1 mmol/L (3.5-5.1)
[2019-02-05 23:59] LABS: ALBUMIN 3.1 g/dL (3.4-5.0); ALBUMIN/GLOBULIN RATIO 0.7 (1.0-1.7); MAGNESIUM 1.8 mg/dL (1.8-2.4); PROTHROMBIN TIME PATIENT 13.5 SEC (11.7-14.0); TOTAL BILIRUBIN 0.3 mg/dL (0.2-1.0); TOTAL PROTEIN 7.7 g/dL (6.4-8.2)
[2019-02-06 00:01] LABS: BASO % 0 % (0-3); EOS # 0.1 x10^3/uL (0.0-0.7); EOS % 1 % (0-3); HEMATOCRIT 33.7 % (36.0-47.0); HEMOGLOBIN 10.7 g/dL (12.0-15.5); LYMPH # 2.5 x10^3/uL (1.0-4.8); LYMPH % 27 % (24-48); MEAN CORPUSCULAR HEMOGLOBIN 25 pg (25-35); MEAN CORPUSCULAR HGB CONC 32 g/dL (31-37); MEAN CORPUSCULAR VOLUME 79 fL (79-100); MONO # 0.7 x10^3/uL (0.0-1.1); MONO % 8 % (0-9); NEUT % 64 % (31-73); PLATELET COUNT 309 x10^3/uL (140-400); RED CELL DISTRIBUTION WIDTH 24.5 % (11.5-14.5); WHITE BLOOD COUNT 9.3 x10^3/uL (4.0-11.0)
[2019-02-06] MEDS ORDERED: CONTRAST GIVEN. MC PRN (00:30)
[2019-02-06] MEDS ORDERED: DOXYCYCLINE HYCLATE 100 MG in IV DEXTROSE 5% 100ML 100 ML IV ONE (00:30)
[2019-02-06] MEDS ORDERED: IOHEXOL 350 MG/ML 100 ML VIAL. IV ONE (00:30)
--- NOTE | 2019-02-06 01:40 | RAD ---
CTA scan of the Chest with Contrast (Pulmonary Embolism protocol) 02/06/2019 Clinical History: Shortness of breath. Technique: After the intravenous administration of 100 cc of Omnipaque 350, contiguous, 0.625 mm axial sections were obtained through the chest. 2 mm axial and 3D MIP coronal and sagittal reconstructed images were obtained. One or more of the following individualized dose reduction techniques were utilized for this study: 1. Automated exposure control. 2. Adjustment of the mA and/or kV according to patient size. 3. Use of iterative reconstruction technique. Findings: No filling defect is seen within the major branches of either pulmonary artery. There is no CT evidence of pulmonary embolism. The heart is mildly enlarged. Sclerotic calcification thoracic aorta and its branches is seen. The thoracic aorta is tortuous but tapers normally. Mild to moderate emphysematous changes are seen involving both lungs. Minimal dependent subsegmental atelectasis is seen involving both lungs. No area of consolidation, pleural effusion or pneumothorax is seen. Impression: There is no CT evidence of pulmonary embolism. Electronically signed by: Ramos Swartz MD (02/06/2019 1:37 AM) [facility]
--- NOTE | 2019-02-06 02:10 | PHYS DOC ---
Past Medical History Past Medical History: Anxiety, COPD, Diabetes-Type II, GI Bleed, High Cholesterol, Hypertension, Other Additional Past Medical Histor: "MEMORY LOSS" Past Surgical History: Tonsillectomy, Other Additional Past Surgical Histo: BACK SURGERY X2, POLYPS REMOVED FROM THROAT Alcohol Use: Occasionally Drug Use: None Adult General Chief Complaint Chief Complaint: SHORTNESS OF BREATH HPI HPI Patient is a 73 year old female was presenting with worsening shortness of breath. Apparently she was just at rehabilitation she left yesterday she has been more short of breath coughing mostly dried no fever has some chest pain with coughing mainly this is been going on for the last 24 hours or so. She did have a prolonged admission recently for bowel resections with postoperative respiratory failure. Review of Systems Review of Systems Constitutional: Denies fever or chills [] Eyes: Denies change in visual acuity, redness, or eye pain [] HENT: Denies nasal congestion or sore throat [] Respiratory: GI: Denies abdominal pain, nausea, vomiting, bloody stools or diarrhea [] Neurologic: Denies headache, focal weakness or sensory changes [] Endocrine: Denies polyuria or polydipsia [] All other systems were reviewed and found to be within normal limits, except as documented in this note. Current Medications Current Medications Current Medications Medications (Trade) Dose Ordered Sig/Buffy Start Time Stop Time Status Last Admin Dose Admin Albuterol/ Ipratropium (Duoneb) 3 ml 1X ONCE 02/05/19 23:30 02/05/19 23:31 DC 02/05/19 23:29 3 ML Methylprednisolone Sodium Succinate (SOLU-Medrol 125MG VIAL) 125 mg 1X ONCE 02/05/19 23:30 02/05/19 23:31 DC 02/06/19 00:23 125 MG Allergies Allergies Allergies Coded Allergies Type Severity Reaction Last Updated Verified Penicillins Allergy Intermediate 12/16/18 Yes Physical Exam Physical Exam Constitutional: Well developed, well nourished, mild to moderate respiratory distress, non-toxic appearance. [] HENT: Normocephalic, atraumatic, bilateral external ears normal, oropharynx moist, no oral exudates, nose normal. [] Eyes: PERRLA, EOMI, conjunctiva normal, no discharge. [] Neck: Normal range of motion, no tenderness, supple, no stridor. [] Cardiovascular:Heart rate regular rhythm, no murmur but diff exam Lungs & Thorax: wheezing noted throghout speaking full sentences Abdomen: mild distension but soft, no tenderness, no masses, no pulsatile masses. [] Skin: Warm, dry, no erythema, no rash. [] Back: No tenderness, no CVA tenderness. [] Extremities: No tenderness, no cyanosis, no clubbing, ROM intact, trace edema[] Neurologic: Alert and oriented X 3, normal motor function, normal sensory function, no focal deficits noted. [] Psychologic: Affect normal, judgement normal, mood normal. [] Current Patient Data Vital Signs Vital Signs Date Time Temp Pulse Resp B/P (MAP) Pulse Ox O2 Delivery O2 Flow Rate FiO2 02/05/19 23:32 95 Room Air 02/05/19 23:00 97.8 94 24 156/95 (115) 4.0 97.8 Lab Values Laboratory Tests Test 02/05/19 23:30 White Blood Count 9.3 x10^3/uL (4.0-11.0) Red Blood Count 4.30 x10^6/uL (3.50-5.40) Hemoglobin 10.7 g/dL (12.0-15.5) L Hematocrit 33.7 % (36.0-47.0) L Mean Corpuscular Volume 79 fL (79-100) Mean Corpuscular Hemoglobin 25 pg (25-35) Mean Corpuscular Hemoglobin Concent 32 g/dL (31-37) Red Cell Distribution Width 24.5 % (11.5-14.5) H Platelet Count 309 x10^3/uL (140-400) Neutrophils (%) (Auto) 64 % (31-73) Lymphocytes (%) (Auto) 27 % (24-48) Monocytes (%) (Auto) 8 % (0-9) Eosinophils (%) (Auto) 1 % (0-3) Basophils (%) (Auto) 0 % (0-3) Neutrophils # (Auto) 6.0 x10^3uL (1.8-7.7) Lymphocytes # (Auto) 2.5 x10^3/uL (1.0-4.8) Monocytes # (Auto) 0.7 x10^3/uL (0.0-1.1) Eosinophils # (Auto) 0.1 x10^3/uL (0.0-0.7) Basophils # (Auto) 0.0 x10^3/uL (0.0-0.2) Platelet Estimate Pending Prothrombin Time 13.5 SEC (11.7-14.0) Prothrombin Time INR 1.1 (0.8-1.1) Sodium Level 145 mmol/L (136-145) Potassium Level 4.1 mmol/L (3.5-5.1) Chloride Level 105 mmol/L (98-107) Carbon Dioxide Level 35 mmol/L (21-32) H Anion Gap 5 (6-14) L Blood Urea Nitrogen 16 mg/dL (7-20) Creatinine 0.8 mg/dL (0.6-1.0) Estimated GFR (Cockcroft-Gault) 84.6 BUN/Creatinine Ratio 20 (6-20) Glucose Level 121 mg/dL (70-99) H Lactic Acid Level 1.0 mmol/L (0.4-2.0) Calcium Level 9.5 mg/dL (8.5-10.1) Magnesium Level 1.8 mg/dL (1.8-2.4) Total Bilirubin 0.3 mg/dL (0.2-1.0) Aspartate Amino Transferase (AST) 17 U/L (15-37) Alanine Aminotransferase (ALT) 19 U/L (14-59) Alkaline Phosphatase 91 U/L (46-116) Troponin I Quantitative < 0.017 ng/mL (0.000-0.055) NM-Nvj-P-Type Natriuretic Peptide 110 pg/mL (0-449) Total Protein 7.7 g/dL (6.4-8.2) Albumin 3.1 g/dL (3.4-5.0) L Albumin/Globulin Ratio 0.7 (1.0-1.7) L Lipase 151 U/L (73-393) Laboratory Tests 02/05/19 23:30 Laboratory Tests 02/05/19 23:30 EKG EKG []EKG shows normal sinus rhythm rate of 83 there are no acute ischemic changes noted lead 3 appears mildly abnormal but it is an isolated lead no STEMI Radiology/Procedures Radiology/Procedures [] Impressions: Findings: No filling defect is seen within the major branches of either pulmonary artery. There is no CT evidence of pulmonary embolism. The heart is mildly enlarged. Sclerotic calcification thoracic aorta and its branches is seen. The thoracic aorta is tortuous but tapers normally. Mild to moderate emphysematous changes are seen involving both lungs. Minimal dependent subsegmental atelectasis is seen involving both lungs. No area of consolidation, pleural effusion or pneumothorax is seen. Impression: There is no CT evidence of pulmonary embolism. Electronically signed by: Ramos Swartz MD (02/06/2019 1:37 AM) [id number] DICTATED and SIGNED BY: RAMOS SWARTZ MD DATE: 02/06/19 0137 Course & Med Decision Making Course & Med Decision Making Pertinent Labs and Imaging studies reviewed. (See chart for details) []Hypertension COPD anxiety recent long admission 2 bowel resections SBO complicated history with postoperative respiratory failure just got sent home from rehabilitation facility yesterday now presenting with worsening shortness of breath. Extensive workup in the emergency room showed normal EKG normal BNP CT scan shows no PE no signs of pneumonia patient has consistent wheezing improved after neb and on reevaluation at 2 AM was more short of breath more wheezing oxygen saturation remains normal with supplementation. Continue his nebs were ordered patient will be admitted to the service of Dr. grant. Patient did receive doxycycline as well as steroids in the emergency room as well for presumed COPD exacerbation. I did consider multiple other etiologies in the differential diagnosis. Flu swab Is also pending at this time Dragon Disclaimer Dragon Disclaimer This electronic medical record was generated, in whole or in part, using a voice recognition dictation system. Departure Departure Impression: Primary Impression: COPD (chronic obstructive pulmonary disease) Disposition: 09 ADMITTED INPATIENT Admitting Physician: Nevaeh Grant Condition: STABLE Referrals: MINI TREJO (PCP) MERCEDEZ FERRIS MD Feb 06, 2019 02:10
[2019-02-06] MEDS ORDERED: ALBUTEROL SULFATE 2.5 MG/3 ML NEBU. CONT NEB ONE (02:15)
--- NOTE | 2019-02-06 02:27 | RAD ---
AP portable chest radiograph 02/05/2019 Clinical History: Shortness of breath. An AP erect portable digital radiograph of the chest was obtained. Comparison study is dated 01/07/2019. A right arm PICC has been removed. Stabilizing rods and pedicle screws overlie the lower lumbar spine. The patient is rotated slightly to the right. The cardiac silhouette is borderline enlarged. The thoracic aorta is mildly tortuous. No acute pulmonary infiltrate is seen. No pleural effusion or pneumothorax is noted. The osseous structures are unchanged. IMPRESSION: No acute abnormality is seen. Electronically signed by: Ramos Swartz MD (02/06/2019 2:24 AM) [id number]
[2019-02-06 02:29] VITALS: BP 183/98
[2019-02-06] MEDS ORDERED: ACET325T9 PO (03:15)
[2019-02-06] MEDS ORDERED: POLY119P19 PO (03:15)
[2019-02-06] MEDS ORDERED: METO-239 PO (03:15)
[2019-02-06] MEDS ORDERED: LOPE2CAP PO (03:15)
[2019-02-06] MEDS ORDERED: HYDR30CR6 RC (03:15)
[2019-02-06] MEDS ORDERED: HYDR25SU18 RC (03:15)
[2019-02-06 03:19] LABS: INFLUENZA A PATIENT NEGATIVE (NEGATIVE); INFLUENZA B PATIENT NEGATIVE (NEGATIVE)
--- NOTE | 2019-02-06 05:06 | NUR ---
pt received at 0224 via cart, accompanied by family. alert/oriented with nonrebreather on. rt to initiated 1 hour breathing treatment, then after apply venting mask at 50%. assessment complete, see charting. explained poc pt/family verbalized understanding. call light in place will cont to monitor. pmrn
[2019-02-06 05:21] LABS: PLT ESTIMATE ADEQUATE (ADEQUATE); TARGET CELLS OCC
[2019-02-06 05:22] LABS: MICROCYTOSIS SLIGHT; OVALOCYTES OCC
[2019-02-06 07:00] VITALS: BP 159/91
[2019-02-06] MEDS ORDERED: IPRATRPIUM/ALBUTEROL 0.5/2.5MG 3 ML NEBU. NEB SCH (08:00)
[2019-02-06] MEDS ORDERED: ACETAMINOPHEN 325 MG TABLET. PO PRN (10:45)
[2019-02-06] MEDS ORDERED: ALPRAZolam 0.25 MG TABLET PO PRN (10:45)
[2019-02-06 11:00] VITALS: BP 160/92
[2019-02-06] MEDS ORDERED: BISACODYL 10 MG SUPP.RECT. PR PRN (11:00)
[2019-02-06] MEDS ORDERED: LOPERAMIDE 2 MG CAPSULE PO PRN (11:00)
[2019-02-06] MEDS ORDERED: HYDROCORTISONE 2.5% RECTAL CREAM 30GM TUBE. RC PRN (11:00)
[2019-02-06] MEDS: IPRATRPIUM/ALBUTEROL 0.5/2.5MG 3 ML NEBU. NEB SCH ×2 (11:20→19:51)
--- NOTE | 2019-02-06 11:26 | EKG ---
[facility] [address] [place] [address] Test Date: 2019-02-06 Test Time: 00:02:44 Pat Name: ELLE LATHAM Department: Room: 254 1 Gender: F Recovery Coordinator: : 1945 Requested By: MERCEDEZ FERRIS Order Number: [id number] Reading MD: Wes Christianson MD Measurements Intervals [place] Rate: 85 P: -18 CO: 140 QRS: 8 QRSD: 80 T: 55 QT: 374 QTc: 450 Interpretive Statements SINUS RHYTHM PAC'S Electronically Signed On 02-07-2019 10:49:04 CDT by Wes Christianson MD
--- NOTE | 2019-02-06 11:54 | HP ---
ADMIT DATE: 02/06/2019 CHIEF COMPLAINT: Shortness of breath. HISTORY OF PRESENT ILLNESS: The patient is a pleasant 73-year-old female who I just had in the hospital a few weeks ago. We did a couple of bowel resections at that time. She then went to nursing home for a few weeks and did well. She has got home a day or so ago and now, she became short of breath. She presented to the ER for evaluation. They gave her an hour's worth of breathing treatments. She was still somewhat short of breath. I suspect she may have started smoking again perhaps had a COPD exacerbation. She is hypoxic. She is on 4 liters of oxygen. I have discussed the case with ER physician. We are going to admit the patient and consult Pulmonary. PAST MEDICAL HISTORY: COPD, recent bowel resection x 2, anxiety, diabetes, hypertension, hyperlipidemia, memory loss, tonsillectomy, back surgery, polyps removed from her throat. ALLERGIES: PENICILLIN. FAMILY HISTORY: Colon polyps. SOCIAL HISTORY: She does not drink or take drugs. She still smokes. MEDICATIONS: Reviewed. She is on DuoNeb, Ventolin, iron, metoprolol, losartan, Aldactone, hydrocodone, Cymbalta, alprazolam, Requip, Namenda, Symbicort, loperamide, Colace, polyethylene glycol, Protonix, metformin, Anusol, hydrocortisone cream and vitamins. REVIEW OF SYSTEMS: GENERAL: No history of weight change, weakness or fevers. SKIN: No bruising, hair changes or rashes. EYES: No blurred, double or loss of vision. NOSE AND THROAT: No history of nosebleeds, hoarseness or sore throat. HEART: No history of palpitations, chest pain or shortness of breath on exertion. LUNGS: She complains of shortness of breath. GASTROINTESTINAL: Denies changes in appetite, nausea, vomiting, diarrhea or constipation. GENITOURINARY: No history of frequency, urgency, hesitancy or nocturia. NEUROLOGIC: Denies history of numbness, tingling, tremor or weakness. PSYCHIATRIC: No history of panic, anxiety or depression. ENDOCRINE: No history of heat or cold intolerance, polyuria or polydipsia. EXTREMITIES: Denies muscle weakness, joint pain, pain on walking or stiffness. PHYSICAL EXAMINATION: VITAL SIGNS: Temperature is afebrile, pulse 93, respirations 24, blood pressure 159/91, O2 sat 100% on 4 liters. GENERAL: She is alert, pleasant. Her family is present. They are good support for her. HEART: Normal S1, S2. LUNGS: Diminished, but clear. ABDOMEN: Soft, positive bowel sounds. EXTREMITIES: Trace edema. SKIN: No rashes. ENDOCRINE: No thyromegaly. LYMPHATICS: No cervical nodes. HEMATOPOIETIC: No bruising. PSYCHIATRIC: She is stable. LABORATORY DATA: Hematology is normal except for hemoglobin of 10.7. Electrolytes are pending. Troponin is 0. CT of the chest was negative for PE. Chest x-ray was negative. ASSESSMENT AND PLAN: Shortness of breath and hypoxia in an elderly female with the above noted comorbidities. Suspect she may have got home and started smoking again, I am not quite sure. Nevertheless, she seems to be having a chronic obstructive pulmonary disease exacerbation. We will give her DuoNeb. Consult Pulmonary. We will consider IV steroids if Pulmonary agrees. Could consider antibiotics and in fact, she did receive a dose of doxycycline in the ER as well that is what she just wants. We will hold off until pulmonary sees her. Deep vein thrombosis prophylaxis. Full code. Frequent labs, PT, OT, SNU eval. DAVID DORAN DO DR: CINDY/courtney JOB#: [id number] / [id number]
[2019-02-06] MEDS ORDERED: NON FORMULARY ITEM (Albuterol Sulfate (Ventolin Hfa Inhaler) 2 PUFF) INH SCH (12:00)
[2019-02-06] MEDS: FERROUS SULFATE 325 MG TABLET. PO SCH (12:08)
[2019-02-06] MEDS: METOPROLOL SUCC 24HR ER 25 MG TAB.ER.24H. PO SCH (12:08)
[2019-02-06] MEDS: LOSARTAN POTASSIUM 50 MG TABLET. PO SCH (12:08)
[2019-02-06] MEDS: PANTOPRAZOLE 40 MG TABLET.DR. PO SCH (12:08)
[2019-02-06] MEDS: SPIRONOLACTONE 25 MG TABLET PO SCH (12:08)
[2019-02-06] MEDS: MEMANTINE 10 MG TABLET. PO SCH ×2 (12:09→21:56)
[2019-02-06] MEDS: ASCORBIC ACID 500 MG TABLET PO SCH (12:09)
[2019-02-06] MEDS: HYDROcodone/APAP 5/325MG 1 TAB TABLET PO PRN ×2 (12:13→18:21)
[2019-02-06] MEDS ORDERED: DEXTROSE 50% 25 GM / 50ML DISP.SYRIN. IV PRN (14:45)
[2019-02-06 15:00] VITALS: BP 125/77
[2019-02-06] MEDS: BENZOCAINE/MENTHOL LOZENGE. PO PRN ×2 (15:18→18:20)
[2019-02-06] MEDS: INSULIN LISPRO 300 UNITS/3 ML INSULN.PEN. SQ SCH (17:00)
[2019-02-06 18:58] VITALS: BP 139/81
[2019-02-06] MEDS: BUDESONIDE 0.5 MG/2 ML NEBU. NEB SCH (19:51)
[2019-02-06] MEDS: HYDROCORTISONE ACETATE 25 MG SUPP.RECT PR SCH (21:00)
[2019-02-06] MEDS ORDERED: rOPINIRole 1 MG TABLET. PO SCH (21:00)
[2019-02-06 22:57] VITALS: BP 162/96
[2019-02-07] MEDS: BENZOCAINE/MENTHOL LOZENGE. PO PRN (01:38)
[2019-02-07 03:09] VITALS: BP 170/95
[2019-02-07] MEDS ORDERED: hydrALAZINE 20 MG/ML VIAL. IVP ONE (04:30)
[2019-02-07] MEDS: BUDESONIDE 0.5 MG/2 ML NEBU. NEB SCH ×2 (05:33→08:45)
[2019-02-07] MEDS: IPRATRPIUM/ALBUTEROL 0.5/2.5MG 3 ML NEBU. NEB SCH ×3 (05:33→12:53)
[2019-02-07] MEDS: PANTOPRAZOLE 40 MG TABLET.DR. PO SCH (05:42)
[2019-02-07] MEDS: HYDROcodone/APAP 5/325MG 1 TAB TABLET PO PRN (05:44)
[2019-02-07 07:28] VITALS: BP 135/76
[2019-02-07 08:07] LABS: BASO % 0 % (0-3); EOS # 0.1 x10^3/uL (0.0-0.7); EOS % 1 % (0-3); HEMATOCRIT 32.4 % (36.0-47.0); HEMOGLOBIN 10.3 g/dL (12.0-15.5); LYMPH # 2.1 x10^3/uL (1.0-4.8); LYMPH % 25 % (24-48); MEAN CORPUSCULAR HEMOGLOBIN 25 pg (25-35); MEAN CORPUSCULAR HGB CONC 32 g/dL (31-37); MEAN CORPUSCULAR VOLUME 78 fL (79-100); MONO # 0.6 x10^3/uL (0.0-1.1); MONO % 7 % (0-9); NEUT # 5.6 x10^3uL (1.8-7.7); NEUT % 67 % (31-73); PLATELET COUNT 297 x10^3/uL (140-400); RED BLOOD COUNT 4.17 x10^6/uL (3.50-5.40); RED CELL DISTRIBUTION WIDTH 25.4 % (11.5-14.5); WHITE BLOOD COUNT 8.3 x10^3/uL (4.0-11.0)
[2019-02-07 08:20] LABS: CREATININE 0.7 mg/dL (0.6-1.0); GFR 98.7; POTASSIUM 3.7 mmol/L (3.5-5.1)
[2019-02-07] MEDS: FERROUS SULFATE 325 MG TABLET. PO SCH (08:50)
[2019-02-07] MEDS: LOSARTAN POTASSIUM 50 MG TABLET. PO SCH (08:51)
[2019-02-07] MEDS: ASCORBIC ACID 500 MG TABLET PO SCH (08:51)
[2019-02-07] MEDS: MEMANTINE 10 MG TABLET. PO SCH (08:51)
[2019-02-07] MEDS: METOPROLOL SUCC 24HR ER 25 MG TAB.ER.24H. PO SCH (08:51)
[2019-02-07] MEDS: SPIRONOLACTONE 25 MG TABLET PO SCH (08:51)
[2019-02-07] MEDS ORDERED: DOCUSATE SODIUM 100 MG CAPSULE. PO SCH (09:00)
[2019-02-07] MEDS ORDERED: DULoxetine HCL 30 MG CAPSULE.DR PO SCH (09:00)
[2019-02-07] MEDS ORDERED: POLYETHYLENE GLYCOL 3350 17 GM PACKET. PO PRN (09:00)
[2019-02-07 09:11] LABS: ANISOCYTOSIS MOD; PLT ESTIMATE ADEQUATE (ADEQUATE)
[2019-02-07 09:17] LABS: BIZZARE CELLS OCC; POIKILOCYTOSIS SLIGHT
[2019-02-07] MEDS: INSULIN LISPRO 300 UNITS/3 ML INSULN.PEN. SQ SCH ×2 (09:44→12:00)
[2019-02-07 11:13] VITALS: BP 146/86
--- NOTE | 2019-02-07 11:41 | PDOC ---
PROGRESS NOTES Chief Complaint Chief Complaint SOB COPD Hypoxia Nicotine Use Disorder Recent bowel resection x2 DM2 HTN HLD Anxiety Memory loss History of Present Illness History of Present Illness Pt was seen and examined She was seen ambulating quite well with tech, did have O2 via NC Feeling better today, in NAD Discussed with RN Vitals Vitals Vital Signs Date Time Temp Pulse Resp B/P (MAP) Pulse Ox O2 Delivery O2 Flow Rate FiO2 02/07/19 11:13 98.0 75 18 146/86 (106) 100 Nasal Cannula 2.0 98.0 Physical Exam General: Alert, Oriented X3, Cooperative, No acute distress Heart: Regular rate, No murmurs Lungs: Clear Abdomen: Normal bowel sounds, No tenderness Extremities: No clubbing, No edema Skin: No rashes, No significant lesion Labs LABS Laboratory Tests Test 02/06/19 17:02 02/06/19 21:26 02/07/19 07:18 02/07/19 07:20 Glucose (Fingerstick) 99 mg/dL (70-99) 170 mg/dL (70-99) 156 mg/dL (70-99) White Blood Count 8.3 x10^3/uL (4.0-11.0) Red Blood Count 4.17 x10^6/uL (3.50-5.40) Hemoglobin 10.3 g/dL (12.0-15.5) Hematocrit 32.4 % (36.0-47.0) Mean Corpuscular Volume 78 fL (79-100) Mean Corpuscular Hemoglobin 25 pg (25-35) Mean Corpuscular Hemoglobin Concent 32 g/dL (31-37) Red Cell Distribution Width 25.4 % (11.5-14.5) Platelet Count 297 x10^3/uL (140-400) Neutrophils (%) (Auto) 67 % (31-73) Lymphocytes (%) (Auto) 25 % (24-48) Monocytes (%) (Auto) 7 % (0-9) Eosinophils (%) (Auto) 1 % (0-3) Basophils (%) (Auto) 0 % (0-3) Neutrophils # (Auto) 5.6 x10^3uL (1.8-7.7) Lymphocytes # (Auto) 2.1 x10^3/uL (1.0-4.8) Monocytes # (Auto) 0.6 x10^3/uL (0.0-1.1) Eosinophils # (Auto) 0.1 x10^3/uL (0.0-0.7) Basophils # (Auto) 0.0 x10^3/uL (0.0-0.2) Platelet Estimate Adequate (ADEQUATE) Poikilocytosis Slight Anisocytosis Mod RBC Morphology Bizarre Forms Occ Sodium Level 140 mmol/L (136-145) Potassium Level 3.7 mmol/L (3.5-5.1) Chloride Level 101 mmol/L (98-107) Carbon Dioxide Level 30 mmol/L (21-32) Anion Gap 9 (6-14) Blood Urea Nitrogen 21 mg/dL (7-20) Creatinine 0.7 mg/dL (0.6-1.0) Estimated GFR (Cockcroft-Gault) 98.7 Glucose Level 135 mg/dL (70-99) Calcium Level 9.0 mg/dL (8.5-10.1) Test 02/07/19 10:58 Glucose (Fingerstick) 149 mg/dL (70-99) Review of Systems Review of Systems Pt reports mild SOB with ambulation She denies TOLENTINO, CP, n/v Assessment and Plan Assessmemt and Plan Problems Medical Problems: (1) COPD (chronic obstructive pulmonary disease) Status: Acute Assessment: SOB COPD Hypoxia Nicotine Use Disorder Recent bowel resection x2 DM2 HTN HLD Anxiety Memory loss Plan: Pulm consult- appreciate recs Considering IV steroids- will start if Pulm agrees Continue to hold off on ABx- will start if Pulm feels this is necessary DuoNebs prn PT/OT home meds frequent labs smoking cessation DVT prophylaxis SNU eval Comment Review of Relevant I have reviewed the following items abdifatah (where applicable) has been applied. Labs Laboratory Tests Test 02/05/19 23:30 02/06/19 02:20 02/06/19 06:05 02/06/19 06:30 White Blood Count 9.3 x10^3/uL (4.0-11.0) Red Blood Count 4.30 x10^6/uL (3.50-5.40) Hemoglobin 10.7 g/dL (12.0-15.5) Hematocrit 33.7 % (36.0-47.0) Mean Corpuscular Volume 79 fL (79-100) Mean Corpuscular Hemoglobin 25 pg (25-35) Mean Corpuscular Hemoglobin Concent 32 g/dL (31-37) Red Cell Distribution Width 24.5 % (11.5-14.5) Platelet Count 309 x10^3/uL (140-400) Neutrophils (%) (Auto) 64 % (31-73) Lymphocytes (%) (Auto) 27 % (24-48) Monocytes (%) (Auto) 8 % (0-9) Eosinophils (%) (Auto) 1 % (0-3) Basophils (%) (Auto) 0 % (0-3) Neutrophils # (Auto) 6.0 x10^3uL (1.8-7.7) Lymphocytes # (Auto) 2.5 x10^3/uL (1.0-4.8) Monocytes # (Auto) 0.7 x10^3/uL (0.0-1.1) Eosinophils # (Auto) 0.1 x10^3/uL (0.0-0.7) Basophils # (Auto) 0.0 x10^3/uL (0.0-0.2) Platelet Estimate Adequate (ADEQUATE) Microcytosis Slight Macrocytosis Slight Target Cells Occ Ovalocytes Occ Prothrombin Time 13.5 SEC (11.7-14.0) Prothromb Time International Ratio 1.1 (0.8-1.1) Sodium Level 145 mmol/L (136-145) Potassium Level 4.1 mmol/L (3.5-5.1) Chloride Level 105 mmol/L (98-107) Carbon Dioxide Level 35 mmol/L (21-32) Anion Gap 5 (6-14) Blood Urea Nitrogen 16 mg/dL (7-20) Creatinine 0.8 mg/dL (0.6-1.0) Estimated GFR (Cockcroft-Gault) 84.6 BUN/Creatinine Ratio 20 (6-20) Glucose Level 121 mg/dL (70-99) Lactic Acid Level 1.0 mmol/L (0.4-2.0) Calcium Level 9.5 mg/dL (8.5-10.1) Magnesium Level 1.8 mg/dL (1.8-2.4) Total Bilirubin 0.3 mg/dL (0.2-1.0) Aspartate Amino Transf (AST/SGOT) 17 U/L (15-37) Alanine Aminotransferase (ALT/SGPT) 19 U/L (14-59) Alkaline Phosphatase 91 U/L (46-116) Troponin I Quantitative < 0.017 ng/mL (0.000-0.055) < 0.017 ng/mL (0.000-0.055) EG-Kfc-W-Type Natriuretic Peptide 110 pg/mL (0-449) Total Protein 7.7 g/dL (6.4-8.2) Albumin 3.1 g/dL (3.4-5.0) Albumin/Globulin Ratio 0.7 (1.0-1.7) Lipase 151 U/L (73-393) Influenza Type A Antigen Negative (NEGATIVE) Influenza Type B Antigen Negative (NEGATIVE) Nasal Screen MRSA (PCR) Negative (Negative) Test 02/06/19 07:33 02/06/19 11:05 02/06/19 17:02 02/06/19 21:26 Glucose (Fingerstick) 163 mg/dL (70-99) 251 mg/dL (70-99) 99 mg/dL (70-99) 170 mg/dL (70-99) Test 02/07/19 07:18 02/07/19 07:20 02/07/19 10:58 White Blood Count 8.3 x10^3/uL (4.0-11.0) Red Blood Count 4.17 x10^6/uL (3.50-5.40) Hemoglobin 10.3 g/dL (12.0-15.5) Hematocrit 32.4 % (36.0-47.0) Mean Corpuscular Volume 78 fL (79-100) Mean Corpuscular Hemoglobin 25 pg (25-35) Mean Corpuscular Hemoglobin Concent 32 g/dL (31-37) Red Cell Distribution Width 25.4 % (11.5-14.5) Platelet Count 297 x10^3/uL (140-400) Neutrophils (%) (Auto) 67 % (31-73) Lymphocytes (%) (Auto) 25 % (24-48) Monocytes (%) (Auto) 7 % (0-9) Eosinophils (%) (Auto) 1 % (0-3) Basophils (%) (Auto) 0 % (0-3) Neutrophils # (Auto) 5.6 x10^3uL (1.8-7.7) Lymphocytes # (Auto) 2.1 x10^3/uL (1.0-4.8) Monocytes # (Auto) 0.6 x10^3/uL (0.0-1.1) Eosinophils # (Auto) 0.1 x10^3/uL (0.0-0.7) Basophils # (Auto) 0.0 x10^3/uL (0.0-0.2) Platelet Estimate Adequate (ADEQUATE) Poikilocytosis Slight Anisocytosis Mod RBC Morphology Bizarre Forms Occ Sodium Level 140 mmol/L (136-145) Potassium Level 3.7 mmol/L (3.5-5.1) Chloride Level 101 mmol/L (98-107) Carbon Dioxide Level 30 mmol/L (21-32) Anion Gap 9 (6-14) Blood Urea Nitrogen 21 mg/dL (7-20) Creatinine 0.7 mg/dL (0.6-1.0) Estimated GFR (Cockcroft-Gault) 98.7 Glucose Level 135 mg/dL (70-99) Calcium Level 9.0 mg/dL (8.5-10.1) Glucose (Fingerstick) 156 mg/dL (70-99) 149 mg/dL (70-99) Laboratory Tests Test 02/06/19 17:02 02/06/19 21:26 02/07/19 07:18 02/07/19 07:20 Glucose (Fingerstick) 99 mg/dL (70-99) 170 mg/dL (70-99) 156 mg/dL (70-99) White Blood Count 8.3 x10^3/uL (4.0-11.0) Red Blood Count 4.17 x10^6/uL (3.50-5.40) Hemoglobin 10.3 g/dL (12.0-15.5) Hematocrit 32.4 % (36.0-47.0) Mean Corpuscular Volume 78 fL (79-100) Mean Corpuscular Hemoglobin 25 pg (25-35) Mean Corpuscular Hemoglobin Concent 32 g/dL (31-37) Red Cell Distribution Width 25.4 % (11.5-14.5) Platelet Count 297 x10^3/uL (140-400) Neutrophils (%) (Auto) 67 % (31-73) Lymphocytes (%) (Auto) 25 % (24-48) Monocytes (%) (Auto) 7 % (0-9) Eosinophils (%) (Auto) 1 % (0-3) Basophils (%) (Auto) 0 % (0-3) Neutrophils # (Auto) 5.6 x10^3uL (1.8-7.7) Lymphocytes # (Auto) 2.1 x10^3/uL (1.0-4.8) Monocytes # (Auto) 0.6 x10^3/uL (0.0-1.1) Eosinophils # (Auto) 0.1 x10^3/uL (0.0-0.7) Basophils # (Auto) 0.0 x10^3/uL (0.0-0.2) Platelet Estimate Adequate (ADEQUATE) Poikilocytosis Slight Anisocytosis Mod RBC Morphology Bizarre Forms Occ Sodium Level 140 mmol/L (136-145) Potassium Level 3.7 mmol/L (3.5-5.1) Chloride Level 101 mmol/L (98-107) Carbon Dioxide Level 30 mmol/L (21-32) Anion Gap 9 (6-14) Blood Urea Nitrogen 21 mg/dL (7-20) Creatinine 0.7 mg/dL (0.6-1.0) Estimated GFR (Cockcroft-Gault) 98.7 Glucose Level 135 mg/dL (70-99) Calcium Level 9.0 mg/dL (8.5-10.1) Test 02/07/19 10:58 Glucose (Fingerstick) 149 mg/dL (70-99) Microbiology 02/06/19 Blood Culture - Preliminary, Resulted NO GROWTH AFTER 1 DAY Medications Current Medications Albuterol/ Ipratropium (Duoneb) 3 ml 1X ONCE NEB Last administered on at 23:29; Start 02/05/19 at 23:30; Stop 02/05/19 at 23:31; Status DC Methylprednisolone Sodium Succinate (SOLU-Medrol 125MG VIAL) 125 mg 1X ONCE IV Last administered on 02/06/19at 00:23; Start 02/05/19 at 23:30; Stop 02/05/19 at 23:31; Status DC Doxycycline Hyclate 100 mg/ Dextrose 100 ml @ 50 mls/hr 1X ONCE IV Last administered on 02/06/19at 00:23; Start 02/06/19 at 00:30; Stop 02/06/19 at 02:29 ; Status DC Albuterol/ Ipratropium (Duoneb) 3 ml RTQID NEB Last administered on 02/06/19at 07:46; Start 02/06/19 at 08:00; Stop 02/06/19 at 13:33; Status DC Iohexol (Omnipaque 350 Mg/ml) 100 ml 1X ONCE IV Last administered on at 00:54; Start 02/06/19 at 00:30; Stop 02/06/19 at 00:31; Status DC Info (CONTRAST GIVEN -- Rx MONITORING) 1 each PRN DAILY PRN MC SEE COMMENTS; Start 02/06/19 at 00:30; Stop 02/08/19 at 00:29 Albuterol Sulfate (Ventolin Neb Soln) 10 mg 1X ONCE CONT NEB Last administered on 02/06/19at 02:40; Start 02/06/19 at 02:15; Stop 02/06/19 at 02:16 ; Status DC Acetaminophen (Tylenol) 650 mg PRN Q6HRS PRN PO PAIN Last administered on at 21:59; Start 02/06/19 at 10:45 Alprazolam (Xanax) 0.25 mg PRN Q8HRS PRN PO ANXIETY / AGITATION; Start at 10:45 Docusate Sodium (Colace) 100 mg DAILY PO Last administered on 02/07/19at 08:50; Start 02/07/19 at 09:00 Duloxetine HCl (Cymbalta) 60 mg DAILY PO Last administered on 02/07/19 08:51; Start 02/07/19 at 09:00 Acetaminophen/ Hydrocodone Bitart (Lortab 5/325) 1 tab PRN Q4HRS PRN PO MODERATE PAIN Last administered on 02/07/19 05:44; Start 02/06/19 at 10:45 Albuterol/ Ipratropium (Duoneb) 3 ml BID NEB Last administered on 02/07/19at 08: 45; Start 02/06/19 at 11:00 Metoprolol Succinate (Toprol Xl) 25 mg DAILY PO Last administered on 02/07/19 08:51; Start 02/06/19 at 11:00 Non-Formulary Medication (Albuterol Sulfate (Ventolin Hfa Inhaler)) 2 puff Q4HRS INH ; Start 02/06/19 at 12:00; Status UNV Ascorbic Acid (Vitamin C) 500 mg DAILY PO Last administered on 02/07/19 08:51 ; Start 02/06/19 at 11:00 Budesonide (Pulmicort) 0.5 mg RTBID NEB Last administered on 02/07/19 08:45; Start 02/06/19 at 20:00 Ferrous Sulfate (Feosol) 325 mg DAILYWBKFT PO Last administered on 02/07/19 08 :50; Start 02/06/19 at 11:00 Hydrocortisone Acetate (Anucort-Hc) 25 mg BID [place] ; Start 02/06/19 at 21:00 Hydrocortisone (Proctosol-Hc) 1 ranjith PRN Q6HRS PRN RC HEMORRHOIDS; Start at 11:00 Loperamide HCl (Imodium) 2 mg PRN Q1HR PRN PO DIARRHEA; Start 02/06/19 at 11:00 Losartan Potassium (Cozaar) 100 mg DAILY PO Last administered on 02/07/19 08: 51; Start 02/06/19 at 11:00 Memantine (Namenda) 10 mg BID PO Last administered on 02/07/19 08:51; Start at 11:00 Metformin HCl (Glucophage Xr) 500 mg DAILYWBKFT PO ; Start 02/09/19 at 08:00 Pantoprazole Sodium (Protonix) 40 mg DAILYAC PO Last administered on 02/07/19 05:42; Start 02/06/19 at 11:00 Polyethylene Glycol (miraLAX PACKET) 17 gm PRN DAILY PRN PO CONSTIPATION; Start 02/07/19 at 09:00 Ropinirole HCl (Requip) 3 mg QHS PO Last administered on 02/06/19 21:55; Start 02/06/19 at 21:00 Spironolactone (Aldactone) 25 mg DAILY PO Last administered on 02/07/19 08:51 ; Start 02/06/19 at 11:00 Bisacodyl (Dulcolax Supp) 10 mg PRN DAILY PRN [place] CONSTIPATION; Start 02/06/19 at 11:00 Throat Lozenges (Cepacol Sore Throat Lozenge) 1 kristyn PRN Q2HRS PRN PO SORE THROAT Last administered on 02/07/19at 01:38; Start 02/06/19 at 14:45 Insulin Human Lispro (HumaLOG) 0-7 UNITS TIDWMEALS SQ Last administered on 02/07at 09:44; Start 02/06/19 at 17:00 Dextrose (Dextrose 50%-Water Syringe) 12.5 gm PRN Q15MIN PRN IV SEE COMMENTS; Start 02/06/19 at 14:45 Hydralazine HCl (Apresoline Inj) 10 mg 1X ONCE IVP Last administered on at 04:39; Start 02/07/19 at 04:30; Stop 02/07/19 at 04:32; Status DC Active Scripts Active Hydrocodone-Apap 5-325 (Hydrocodone Bit/Acetaminophen) 1 Tab Tablet 1 Tab PO PRN Q4HRS PRN Symbicort 80-4.5 Mcg Inhaler (Budesonide/Formoterol Fumarate) 10.2 Gm Hfa.aer.ad 1 Puff IH BID Duoneb 0.5-3(2.5) Mg/3 Ml (Albuterol/Ipratropium) 3 Ml Ampul.neb 3 Ml NEB BID [Bisacodyl] 10 MG Supp.rect 10 Mg [place] PRN DAILY PRN Colace (Docusate Sodium) 100 Mg Capsule 100 Mg PO DAILY Alprazolam 0.25 Mg Tablet 0.25 Mg PO PRN Q8HRS PRN Cymbalta (Duloxetine Hcl) 30 Mg Capsule. 60 Mg PO DAILY Vitamin C (Ascorbate Calcium) 500 Mg Tablet 500 Mg PO DAILY 30 Days Slow Release Iron (Ferrous Sulfate) 250 Mg Tablet.er 250 Mg PO DAILY 30 Days Protonix (Pantoprazole Sodium) 40 Mg Granpkt.dr 40 Mg PO DAILY 30 Days Reported Metoprolol Succinate ( Xl ) (Metoprolol Succinate) 25 Mg Tab.er.24h 25 Mg PO DAILY Loperamide (Loperamide Hcl) 2 Mg Capsule 2 Mg PO PRN Q1HR PRN Anusol-Hc (Hydrocortisone Acetate) 25 Mg Supp.rect 1 Supp RC BID Glycolax (Polyethylene Glycol 3350) 119 Gm Powder 17 Gm PO UD PRN Analpram Hc 2.5% Cream (Hydrocortisone/Pramoxine) 30 Gm Cream.appl 1 Ranjith RC PRN Q6HRS PRN Tylenol (Acetaminophen) 325 Mg Tablet 650 Mg PO PRN Q6HRS PRN Metformin Hcl Er (Metformin Hcl) 500 Mg Tab.er.24h 1 Tab PO DAILY Namenda (Memantine Hcl) 10 Mg Tablet 1 Tab PO BID Losartan Potassium 100 Mg Tablet 100 Mg PO DAILY Spironolactone 25 Mg Tablet 1 Tab PO DAILY Ventolin Hfa Inhaler (Albuterol Sulfate) 18 Gm Hfa.aer.ad 2 Puff INH Q4HRS Requip (Ropinirole Hcl) 1 Mg Tablet 3 Mg PO HS Vitals/I & O Vital Sign - Last 24 Hours 02/06/19 02/06/19 02/06/19 02/06/19 12:08 12:08 12:13 13:10 Pulse 83 83 Resp 18 B/P (MAP) 159/91 159/91 Pulse Ox 99 99 O2 Delivery Nasal Cannula O2 Flow Rate 4.0 02/06/19 02/06/19 02/06/19 02/06/19 15:00 18:21 18:58 19:21 Temp 98.0 98.5 98.0 98.5 Pulse 76 78 Resp 16 18 18 B/P (MAP) 125/77 (93) 139/81 (100) Pulse Ox 94 94 94 O2 Delivery Nasal Cannula Nasal Cannula Nasal Cannula Nasal Cannula O2 Flow Rate 2.0 2.0 2.0 02/06/19 02/06/19 02/06/19 02/06/19 19:47 19:52 19:53 22:57 Temp 98.0 98.0 Pulse 80 Resp 18 B/P (MAP) 162/96 (118) Pulse Ox 97 97 96 O2 Delivery Nasal Cannula Nasal Cannula Nasal Cannula Nasal Cannula O2 Flow Rate 2.0 2.0 2.0 2.0 02/07/19 02/07/19 02/07/19 02/07/19 03:09 04:39 05:34 05:35 Temp 98.0 98.0 Pulse 79 79 Resp 18 B/P (MAP) 170/95 (120) 179/95 Pulse Ox 92 97 97 O2 Delivery Nasal Cannula Nasal Cannula Nasal Cannula O2 Flow Rate 2.0 2.0 2.0 02/07/19 02/07/19 02/07/19 02/07/19 05:44 07:28 08:00 08:45 Temp 98.0 98.0 Pulse 79 Resp 18 B/P (MAP) 135/76 (95) Pulse Ox 93 94 O2 Delivery Nasal Cannula Nasal Cannula Nasal Cannula Room Air O2 Flow Rate 2.0 2.0 2.0 02/07/19 02/07/19 02/07/19 02/07/19 08:47 08:51 08:51 11:13 Temp 98.0 98.0 Pulse 79 79 75 Resp 18 B/P (MAP) 135/76 135/76 146/86 (106) Pulse Ox 94 100 O2 Delivery Room Air Nasal Cannula O2 Flow Rate 2.0 Intake and Output 02/06/19 02/06/19 02/07/19 14:59 22:59 06:59 Intake Total 300 ml 200 ml 100 ml Balance 300 ml 200 ml 100 ml DAVID DORAN III DO Feb 07, 2019 11:41
--- NOTE | 2019-02-07 11:59 | DS ---
DATE OF DISCHARGE: 02/07/2019 ADMISSION DIAGNOSES: Shortness of breath and hypoxia. DISCHARGE DIAGNOSES: Resolving shortness of breath, resolving hypoxia, recent bowel surgery x 2, chronic obstructive pulmonary disease, anxiety, diabetes, hypertension, hyperlipidemia, memory loss, tonsillectomy, back surgery and polyps removed from her throat. CONSULTS: Pulmonary. PROCEDURES: None. HOSPITAL COURSE: The patient is a pleasant middle-aged female who we just discharged recently. She had had 2 bowel surgeries. She went to a nursing home for a few weeks and did great. Once she got home, she became short of breath. She was brought in. She was a little hypoxic. I was concerned she may have smoked some cigarettes and had a little bit of bronchospasm. We admitted the patient overnight for observation. This morning, she looks great. She is up walking the halls. I told her we are going to keep her, maybe sending her to skilled, she refuses to go to skilled. She states she does want to go home. If okay with Pulmonary, I am going to discharge with home health. DISPOSITION: Home with home health. ACTIVITY: As tolerated. DIET: Low sodium. MEDICATIONS: Please see the MRAD. TOTAL TIME IN DISCHARGE: Thirty-two minutes. DAVID DORAN DO DR: CINDY/courtney JOB#: [id number] / [id number]
--- NOTE | 2019-02-07 12:05 | NUR ---
Ss following for discharge planning. SS reviewed pt chart. Pt has had recent admission to [place] and discharged to shelter unit at [facility] on 01/17/2019. Pt was in [facility] from 01/17/2019-02/04/2019 and was discharged to home. Pt is currently requiring oxygen. Discharge ordered received for home healthcare. Melisa from [facility] meeting with pt to discuss home healthcare. Pt's RN notified.
--- NOTE | 2019-02-07 12:35 | NUR ---
SS following for discharge planning. Melisa from [facility] met with pt and spoke with pt's daughter via phone. Pt's daughter requested [facility] [place] at discharge, ; fax [phone]. SS will await discharge instructions for home healthcare and will proceed accordingly with discharge planning.
[2019-02-07] MEDS: HYDROCORTISONE ACETATE 25 MG SUPP.RECT PR SCH (13:10)
[2019-02-07 14:58] VITALS: BP 167/89
--- NOTE | 2019-02-07 15:30 | NUR ---
DISCHARGE INSTRUCTIONS GIVEN, QUESTIONS AND CONCERNS ANSWERED, PATIENT VERBALIZED UNDERSTANDING OF DISCHARGE INFORMATION INCLUDING TAKING ALL MEDICATIONS INSTRUCTED AND FOLLOWING UP WITH THEIR PRIMARY PROVIDER IN 1-2 WEEKS. PATIENTS DAUGHTER AT THE BEDSIDE WITH PATIENTS' PERSONAL OXYGEN TANK, SALINE LOCK REMOVED PRIOR TO DISCHARGE. PATIENT RECEIVED A PRESCRIPTION FOR PREDNISONE PRIOR TO DISCHARGE, ALL PERSONAL BELONGINGS GATHERED BY THE DAUGHTER AND PLACED IN BAGS FOR DISCHARGE. PATIENT INFORMED THAT [facility] WOULD FOLLOW YOUR CARE AT HOME AND THAT THEY SHOLD CONTACT HER ON 02/08/19.
--- NOTE | 2019-02-07 15:45 | NUR ---
SS following up with discharge planning. SS phoned and faxed discharge orders and referral for home healthcare to [facility], ; fax [phone].
--- NOTE | 2019-02-07 15:55 | NUR ---
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
--- NOTE | 2019-02-07 22:51 | CONS ---
DATE OF CONSULTATION: 02/07/2019 ATTENDING PHYSICIAN: Dr. Rach Bob. CONSULTING PHYSICIAN: Dr. Maria Alejandra Valentine. REASON FOR CONSULTATION: The patient seen in pulmonary consultation at the request of Dr. Bob for increasing shortness of air. HISTORY OF PRESENT ILLNESS: The patient is well known to me from previous hospitalization. She is a 73-year-old that underwent surgical intervention for gastrointestinal bleed during the last hospitalization. She had a prolonged hospitalization secondary to small-bowel obstruction. She required surgery. She had bilateral effusions, bilateral atelectasis. She went to rehabilitation. She was home for 1 day, presented with increasing shortness of breath, cough mostly nonproductive, some wheezing. She wears oxygen at home. She had a CT angiogram, which revealed no evidence of PE or infiltrates. She denies fever, chills, nausea, vomiting, diarrhea. PAST MEDICAL HISTORY: COPD, bronchitis, recent prolonged hospitalization for laparoscopic-assisted right colon resection and hemorrhoidectomy. Her course was complicated with a small-bowel obstruction and ileus. She also had atelectasis, respiratory failure. PAST SURGICAL HISTORY: As above. SOCIAL HISTORY: She is currently not smoking, quit during the last hospitalization. ALLERGIES: PENICILLIN. CURRENT MEDICATIONS: List was reviewed. REVIEW OF SYSTEMS: As indicated above, otherwise, a 10-point system was reviewed and negative. PHYSICAL EXAMINATION: VITAL SIGNS: Stable. O2 saturation currently on 2 liters was greater than 92%. HEENT: Eyes, the sclerae were nonicteric. NECK: Jugular venous distention was not elevated. No lymphadenopathy. CHEST: Full expansion. LUNGS: Adequate airway flow, no wheezes. CARDIOVASCULAR: Regular rate and rhythm with S1, S2, no S3. ABDOMEN: Soft, nontender, nondistended. EXTREMITIES: No clubbing, cyanosis or edema. NEUROLOGIC: The patient was awake, alert, following commands. A detailed neuro exam was not performed. LABORATORY DATA: Reviewed. CT angiogram was reviewed, no evidence of pulmonary embolism. IMPRESSION: 1. Progressive dyspnea secondary to acute exacerbation of chronic obstructive pulmonary disease. 2. CT angiogram revealing no evidence of infiltrate or pulmonary embolism. 3. Recent prolonged hospitalization for resection of right colon, subsequent ileus and respiratory failure with atelectasis. PLAN: 1. Respiratory status appears to be compensated, discharged home on prednisone 30 mg x 5 days. 2. Follow up in the office. 3. Continue oxygen supplementation. 4. Nebulized treatments. I do appreciate the privilege in sharing in the patient's care. MARIA ALEJANDRA VALENTINE MD DR: ZEKE/courtney JOB#: [id number] / [id number]
[2019-02-09] MEDS ORDERED: metFORMIN XR 500 MG TAB.ER.24H PO SCH (08:00)
== END 2019-02-07 15:55 | disposition home health service (06) | DRG 190 ==
LOC: ER 02-06 00:04 → 6 SOUTH 02-06 00:10 → 2 SOUTH 02-06 02:07
PROVIDERS: ADMIT Internal Medicine; ATTEND Internal Medicine
DX: J44.1 Chronic obstructive pulmonary disease with (acute) exacerbation (principal); J96.20 Acute and chronic respiratory failure, unspecified whether with hypoxia or hypercapnia; F41.9 Anxiety disorder, unspecified; E11.9 Type 2 diabetes mellitus without complications; E78.00 Pure hypercholesterolemia, unspecified; I10 Essential (primary) hypertension; E78.5 Hyperlipidemia, unspecified; F17.200 Nicotine dependence, unspecified, uncomplicated; R41.3 Other amnesia; Z83.71 Family history of colonic polyps; Z88.0 Allergy status to penicillin; Z99.81 Dependence on supplemental oxygen
CPT/HCPCS: 36415; 71045; 71275; 80048; 80053; 82962; 83605; 83690; 83735; 83880; 84484; 85025; 85610; 87040; 87641; 87804; 93005; 94640; 94644; 94760; 96365; 96366; 96375; J0360; J1815; J2930; J3490; J7613; J7620; J7626; Q9967; 97110; 97116; 97530; 99285-25

== ENCOUNTER 2019-02-21 17:07 | Inpatient (IN) | payer MEDICARE ==
[~2019-02-21] VITALS: Ht 170.2 cm; Wt 70.3 kg
[~2019-02-21 17:07] MED LIST changes: +ACET325T9 PO; +HYDR25SU18 RC; +HYDR30CR6 RC; +LOPE2CAP PO; +METO-239 PO; +POLY119P19 PO
[2019-02-21] MEDS ORDERED: IV NORMAL SALINE 1000ML BAG 1,000 ML IV ONE ×2 (17:45→21:15)
[2019-02-21] MEDS ORDERED: IOHEXOL 300 MG/ML 100ML VIAL. IV ONE (18:00)
[2019-02-21 18:14] LABS: CALCIUM 9.2 mg/dL (8.5-10.1); CREATININE 1.2 mg/dL (0.6-1.0); POTASSIUM 4.6 mmol/L (3.5-5.1)
[2019-02-21] MEDS ORDERED: CONTRAST GIVEN. MC PRN (18:15)
[2019-02-21 18:21] LABS: ALBUMIN 3.2 g/dL (3.4-5.0); ALBUMIN/GLOBULIN RATIO 0.7 (1.0-1.7); TOTAL BILIRUBIN 0.3 mg/dL (0.2-1.0); TOTAL PROTEIN 7.6 g/dL (6.4-8.2)
[2019-02-21 18:22] LABS: BASO % 1 % (0-3); EOS # 0.1 x10^3/uL (0.0-0.7); EOS % 2 % (0-3); HEMATOCRIT 33.3 % (36.0-47.0); HEMOGLOBIN 10.6 g/dL (12.0-15.5); LYMPH # 2.2 x10^3/uL (1.0-4.8); LYMPH % 27 % (24-48); MEAN CORPUSCULAR HEMOGLOBIN 25 pg (25-35); MEAN CORPUSCULAR HGB CONC 32 g/dL (31-37); MEAN CORPUSCULAR VOLUME 78 fL (79-100); MONO # 0.7 x10^3/uL (0.0-1.1); MONO % 9 % (0-9); NEUT # 4.9 x10^3uL (1.8-7.7); NEUT % 62 % (31-73); PLATELET COUNT 189 x10^3/uL (140-400); RED BLOOD COUNT 4.28 x10^6/uL (3.50-5.40); RED CELL DISTRIBUTION WIDTH 24.3 % (11.5-14.5)
--- NOTE | 2019-02-21 20:05 | RAD ---
INDICATION: RLQ abdominal pain hx of bowel resection x2, IV contrast only, Omni 300 60mLs reduced dose per protocol. COMPARISON: December 2018 TECHNIQUE: Axial CT images obtained through the abdomen and pelvis with contrast. One or more of the following individualized dose reduction techniques were utilized for this examination: 1. Automated exposure control; 2. Adjustment of the mA and/or kV according to patient size; 3. Use of iterative reconstruction technique. FINDINGS: Mild opacity at right lung base. There are some cystic changes at partially visualized lung bases. Coronary artery calcific atherosclerosis. Severe calcific atherosclerosis. No intrahepatic bile duct dilation. No definite fluid collection at pancreas. Spleen is not enlarged. No left-sided hydronephrosis. Urinary bladder has minimal urine within it at time of exam. Calcification within uterus could be from fibroid. Mild prominence right extrarenal pelvis. Calcification within again seen which could be vascular or secondary to a nonobstructive stone. Degenerative changes of spine with multilevel central canal neural foraminal stenosis. Large amount of stool within the rectal region. Colonic diverticulosis. Dilated loops of bowel are seen proximally with more distal decompression. Small amount of edema within the mesentery as well as a small amount of fluid. Postoperative changes to the bowel with suture line seen. Degenerative changes throughout the spine with postoperative changes with pedicle screws and stabilizing ari at L4, L3 and L2. Sclerotic focus right iliac wing measuring up to approximately a centimeter. Also present on prior. Could be bone island unless the patient has history of neoplasm. There are some other sclerotic foci as well. IMPRESSION: 1. There are some dilated loops of bowel within the abdomen with more distal decompression. Could be secondary to ileus or obstruction. 2. Large amount of stool at the rectal region. Could be from constipation or fecal impaction. 3. Mild patchy opacity right lung base. Could be secondary to atelectasis or infiltrate. Electronically signed by: Candido Wade MD (02/21/2019 8:03 PM) [facility]
[2019-02-21 20:17] LABS: ANISOCYTOSIS SLIGHT; HYPOCHROMIA SLIGHT; PLT ESTIMATE ADEQUATE (ADEQUATE)
[2019-02-21 20:18] LABS: MICROCYTOSIS SLIGHT
[2019-02-21] MEDS ORDERED: MORPHINE SULFATE 2 MG/ML VIAL. IV PRN (21:15)
[2019-02-21] MEDS ORDERED: ONDANSETRON PF 4 MG/2 ML VIAL. IV PRN (21:15)
--- NOTE | 2019-02-21 21:16 | PHYS DOC ---
Past Medical History Past Medical History: Anxiety, COPD, Diabetes-Type II, GI Bleed, High Cholesterol, Hypertension, Other Additional Past Medical Histor: "MEMORY LOSS" Past Surgical History: Tonsillectomy, Other Additional Past Surgical Histo: BACK SURGERY X2, POLYPS REMOVED FROM THROAT, bowel resection x 2 Alcohol Use: Occasionally Drug Use: None Adult General Chief Complaint Chief Complaint: ABDOMINAL PAIN HPI HPI Patient is a 73 year old female with history of hypertension, diabetes type 2, high cholesterol, GI bleed, who presents today complaining of 6 out of 10 constant left lower quadrant abdominal pain that began 2 days ago. Patient states she also has history of constipation. She states she had a bowel movement today. Denies any nausea vomiting. She states 2 months ago she had a bowel resection then developed small bowel obstruction and ended up having surgery after that. Denies any fever. Review of Systems Review of Systems Constitutional: Denies fever or chills [] Eyes: Denies change in visual acuity, redness, or eye pain [] HENT: Denies nasal congestion or sore throat [] Respiratory: Denies cough or shortness of breath [] Cardiovascular: No additional information not addressed in HPI [] GI: Reports left lower quadrant abdominal pain denies nausea, vomiting, bloody stools or diarrhea [] : Denies dysuria or hematuria [] Musculoskeletal: Denies back pain or joint pain [] Integument: Denies rash or skin lesions [] Neurologic: Denies headache, focal weakness or sensory changes [] All other systems were reviewed and found to be within normal limits, except as documented in this note. Current Medications Current Medications Current Medications Medications (Trade) Dose Ordered Sig/Buffy Start Time Stop Time Status Last Admin Dose Admin Info (CONTRAST GIVEN -- Rx MONITORING) 1 each PRN DAILY PRN 02/21/19 18:15 02/23/19 18:14 Iohexol (Omnipaque 300 Mg/ml) 75 ml 1X ONCE 02/21/19 18:00 02/21/19 18:01 DC 02/21/19 19:00 60 ML Morphine Sulfate (Morphine Sulfate) 2 mg PRN Q2HR PRN 02/21/19 21:15 02/22/19 21:14 Ondansetron HCl (Zofran) 4 mg PRN Q8HRS PRN 02/21/19 21:15 02/22/19 21:14 Sodium Chloride 1,000 ml @ 125 mls/hr 1X ONCE 02/21/19 21:15 02/22/19 05:14 Allergies Allergies Allergies Coded Allergies Type Severity Reaction Last Updated Verified Penicillins Allergy Intermediate 12/16/18 Yes Physical Exam Physical Exam Constitutional: Well developed, well nourished, no acute distress, non-toxic appearance. [] HENT: Normocephalic, atraumatic, bilateral external ears normal, oropharynx moist, no oral exudates, nose normal. [] Eyes: PERRLA, EOMI, conjunctiva normal, no discharge. [] Neck: Normal range of motion, no tenderness, supple, no stridor. [] Cardiovascular:Heart rate regular rhythm, no murmur [] Lungs & Thorax: Bilateral breath sounds clear to auscultation [] Abdomen: Midline abdominal surgical incision noted. Abdomen appears round and distended slightly. Bowel sounds normal, soft, tenderness diffusely on the left lower quadrant, slight tenderness on the right lower quadrant tenderness, no masses, no pulsatile masses. [] Skin: Warm, dry, no erythema, no rash. [] Back: No tenderness, no CVA tenderness. [] Extremities: No tenderness, no cyanosis, no clubbing, ROM intact, no edema. [] Neurologic: Alert and oriented X 3, normal motor function, normal sensory function, no focal deficits noted. [] Psychologic: Affect normal, judgement normal, mood normal. [] Current Patient Data Vital Signs Vital Signs Date Time Temp Pulse Resp B/P (MAP) Pulse Ox O2 Delivery O2 Flow Rate FiO2 02/21/19 17:15 98.8 73 17 119/72 (88) 95 Room Air 98.8 Lab Values Laboratory Tests Test 02/21/19 18:00 White Blood Count 8.0 x10^3/uL (4.0-11.0) Red Blood Count 4.28 x10^6/uL (3.50-5.40) Hemoglobin 10.6 g/dL (12.0-15.5) L Hematocrit 33.3 % (36.0-47.0) L Mean Corpuscular Volume 78 fL (79-100) L Mean Corpuscular Hemoglobin 25 pg (25-35) Mean Corpuscular Hemoglobin Concent 32 g/dL (31-37) Red Cell Distribution Width 24.3 % (11.5-14.5) H Platelet Count 189 x10^3/uL (140-400) Neutrophils (%) (Auto) 62 % (31-73) Lymphocytes (%) (Auto) 27 % (24-48) Monocytes (%) (Auto) 9 % (0-9) Eosinophils (%) (Auto) 2 % (0-3) Basophils (%) (Auto) 1 % (0-3) Neutrophils # (Auto) 4.9 x10^3uL (1.8-7.7) Lymphocytes # (Auto) 2.2 x10^3/uL (1.0-4.8) Monocytes # (Auto) 0.7 x10^3/uL (0.0-1.1) Eosinophils # (Auto) 0.1 x10^3/uL (0.0-0.7) Basophils # (Auto) 0.0 x10^3/uL (0.0-0.2) Platelet Estimate Adequate (ADEQUATE) Hypochromasia Slight Anisocytosis Slight Microcytosis Slight Sodium Level 142 mmol/L (136-145) Potassium Level 4.6 mmol/L (3.5-5.1) Chloride Level 104 mmol/L (98-107) Carbon Dioxide Level 27 mmol/L (21-32) Anion Gap 11 (6-14) Blood Urea Nitrogen 18 mg/dL (7-20) Creatinine 1.2 mg/dL (0.6-1.0) H Estimated GFR (Cockcroft-Gault) 53.0 BUN/Creatinine Ratio 15 (6-20) Glucose Level 112 mg/dL (70-99) H Calcium Level 9.2 mg/dL (8.5-10.1) Total Bilirubin 0.3 mg/dL (0.2-1.0) Aspartate Amino Transferase (AST) 16 U/L (15-37) Alanine Aminotransferase (ALT) 17 U/L (14-59) Alkaline Phosphatase 70 U/L (46-116) Total Protein 7.6 g/dL (6.4-8.2) Albumin 3.2 g/dL (3.4-5.0) L Albumin/Globulin Ratio 0.7 (1.0-1.7) L Lipase 267 U/L (73-393) Laboratory Tests 02/21/19 18:00 Laboratory Tests 02/21/19 18:00 EKG EKG [] Radiology/Procedures Radiology/Procedures []PROCEDURE: CT ABD PELV W/ IV CONTRST ONLY INDICATION: RLQ abdominal pain hx of bowel resection x2, IV contrast only, Omni 300 60mLs reduced dose per protocol. COMPARISON: December 2018 TECHNIQUE: Axial CT images obtained through the abdomen and pelvis with contrast. One or more of the following individualized dose reduction techniques were utilized for this examination: 1. Automated exposure control; 2. Adjustment of the mA and/or kV according to patient size; 3. Use of iterative reconstruction technique. FINDINGS: Mild opacity at right lung base. There are some cystic changes at partially visualized lung bases. Coronary artery calcific atherosclerosis. Severe calcific atherosclerosis. No intrahepatic bile duct dilation. No definite fluid collection at pancreas. Spleen is not enlarged. No left-sided hydronephrosis. Urinary bladder has minimal urine within it at time of exam. Calcification within uterus could be from fibroid. Mild prominence right extrarenal pelvis. Calcification within again seen which could be vascular or secondary to a nonobstructive stone. Degenerative changes of spine with multilevel central canal neural foraminal stenosis. Large amount of stool within the rectal region. Colonic diverticulosis. Dilated loops of bowel are seen proximally with more distal decompression. Small amount of edema within the mesentery as well as a small amount of fluid. Postoperative changes to the bowel with suture line seen. Degenerative changes throughout the spine with postoperative changes with pedicle screws and stabilizing ari at L4, L3 and L2. Sclerotic focus right iliac wing measuring up to approximately a centimeter. Also present on prior. Could be bone island unless the patient has history of neoplasm. There are some other sclerotic foci as well. IMPRESSION: 1. There are some dilated loops of bowel within the abdomen with more distal decompression. Could be secondary to ileus or obstruction. 2. Large amount of stool at the rectal region. Could be from constipation or fecal impaction. 3. Mild patchy opacity right lung base. Could be secondary to atelectasis or infiltrate. Electronically signed by: Suzy Lawson MD (02/21/2019 8:03 PM) [facility] DICTATED and SIGNED BY: SUZY LAWSON MD DATE: 02/21/192002 Course & Med Decision Making Course & Med Decision Making Pertinent Labs and Imaging studies reviewed. (See chart for details) This is a 73-year-old female patient presenting to the ED today complaining of left lower quadrant abdominal pain for 2 days. Patient had bowel resection done in December of this year, she developed small bowel obstruction and had to have another surgery after that. CBC with a normal WBC, hemoglobin and hematocrit are within her baseline. CMP would not acute findings. CT of the abdomen and pelvic was noted for dilated loops of bowel within the abdomen with more distal decompression. Could be secondary to ileus or obstruction. Large amount of stool at the rectal region. Could be from constipation or fecal impaction. Mild patchy opacity right lung base. Could be secondary to atelectasis or infiltrate. Patient is in no distress. Consulted with Dr. Balderrama on-call for Dr. oMntoya. NG tube ordered in the ED. Consulted with Dr. Balderrama who accepted patient for admission. Dragon Disclaimer Dragon Disclaimer This electronic medical record was generated, in whole or in part, using a voice recognition dictation system. Departure Departure Impression: Primary Impression: Small bowel obstruction Disposition: ADMITTED INPATIENT Condition: STABLE Referrals: MINI TREJO (PCP) LALY AYALA APRN Feb 21, 2019 21:16
[2019-02-21 22:50] VITALS: BP 135/85
--- NOTE | 2019-02-21 22:50 | NUR ---
Admit Pt arrived via gurney. Goals and pain management discuss with Pt. Pt express understanding. POC done. Pt express concern of home meds. MD notified. Orders received. Will continue to monitor.
--- NOTE | 2019-02-22 00:12 | HP ---
ADMIT DATE: 02/21/2019 CHIEF COMPLAINT: Abdominal pain. HISTORY OF PRESENT ILLNESS: The patient is a pleasant elderly female, well known to my service. We have admitted her a few times in the past 6 months. Today, she presents with abdominal pain, rates it at 7/10. It is in the left lower quadrant, began 2 days ago. She tried increasing her home meds, but that is not working. She also has been constipated. We did some imaging in the ER showing a small-bowel obstruction. I discussed the case with the ER physician. We are going to admit the patient and consult Dr. Montoya. PAST MEDICAL HISTORY: GI bleed, COPD, diabetes, hypertension, hyperlipidemia, memory loss, back surgeries, polypectomy, throat surgery, bowel resection. ALLERGIES: PENICILLIN. FAMILY HISTORY: Hypertension. SOCIAL HISTORY: She does not drink, smoke or take drugs. MEDICATIONS: Reviewed. She is on 22 including DuoNeb, Ventolin, slow release iron, metoprolol, losartan, spironolactone, hydrocodone, Tylenol, Cymbalta, alprazolam, Requip, Namenda, Symbicort, loperamide, Protonix, metformin, Anusol, vitamins. REVIEW OF SYSTEMS: GENERAL: No history of weight change, weakness or fevers. SKIN: No bruising, hair changes or rashes. EYES: No blurred, double or loss of vision. NOSE AND THROAT: No history of nosebleeds, hoarseness or sore throat. HEART: No history of palpitations, chest pain or shortness of breath on exertion. LUNGS: Denies cough, hemoptysis, wheezing or shortness of breath. GASTROINTESTINAL: She complains of abdominal pain. GENITOURINARY: No history of frequency, urgency, hesitancy or nocturia. NEUROLOGIC: Denies history of numbness, tingling, tremor or weakness. PSYCHIATRIC: No history of panic, anxiety or depression. ENDOCRINE: No history of heat or cold intolerance, polyuria or polydipsia. EXTREMITIES: Denies muscle weakness, joint pain, pain on walking or stiffness. PHYSICAL EXAMINATION: VITAL SIGNS: Temperature 98, pulse 70, respirations 17, blood pressure 119/60. GENERAL: She is alert, cooperative. HEART: Normal S1, S2. LUNGS: Clear. ABDOMEN: Soft and tender. EXTREMITIES: Trace edema. SKIN: No rash. ENDOCRINE: No thyromegaly. LYMPHATICS: No cervical nodes. HEMATOPOIETIC: No bruising. PSYCHIATRIC: She is stable. LABORATORY DATA: Hemoglobin is low at 10.6. Electrolytes are normal. Glucose is 112. Abdominal CT shows dilated loops of bowel, which was probably secondary to an ileus or obstruction. Large amount of stool and atelectasis. ASSESSMENT AND PLAN: Small-bowel obstruction. The patient has been admitted. We will give her IV fluids, p.r.n. antiemetics, n.p.o. Consult Dr. Montoya. Home meds, deep venous thrombosis prophylaxis. Full code. DAVID DORAN DO DR: CINDY/courtney JOB#: [id number] / [id number]
[2019-02-22] MEDS ORDERED: ONDANSETRON PF 4 MG/2 ML VIAL. IV PRN (00:30)
[2019-02-22] MEDS ORDERED: DEXTROSE 50% 25 GM / 50ML DISP.SYRIN. IV PRN (00:30)
[2019-02-22] MEDS: PHENOL ORAL SPRAY 177ML BOTTLE. PO PRN (01:20)
[2019-02-22] MEDS: fentaNYL PF VIAL 100 MCG/2 ML VIAL IV PRN ×5 (01:20→20:27)
[2019-02-22] MEDS: HYDROCORTISONE 1% TOPICAL CREAM 30GM TUBE. TP PRN (01:20)
[2019-02-22] MEDS: HYDROCORTISONE ACETATE 25 MG SUPP.RECT RC SCH ×3 (01:20→20:28)
[2019-02-22] MEDS: IV NORMAL SALINE 1000ML BAG 1,000 ML IV SCH ×2 (01:21→14:18)
[2019-02-22 03:00] VITALS: BP 127/77
[2019-02-22] MEDS: ALBUTEROL SULFATE 2.5 MG/3 ML NEBU. NEB SCH ×5 (03:25→23:05)
[2019-02-22] MEDS ORDERED: NON FORMULARY ITEM (Albuterol Sulfate (Ventolin Hfa Inhaler) 2 PUFF) INH SCH (04:00)
[2019-02-22 05:39] LABS: BILIRUBIN,URINE NEGATIVE (NEG); CLARITY,URINE CLEAR; COLOR,URINE YELLOW; NITRITE,URINE NEGATIVE (NEG); PH,URINE 5.5; PROTEIN,URINE NEGATIVE (NEG-TRACE)
[2019-02-22 05:50] LABS: SQUAMOUS EPITHELIAL CELL,UR MOD /LPF; WBC,URINE OCC /HPF (0-4)
[2019-02-22 05:51] LABS: BACTERIA,URINE 0 /HPF (0-FEW)
[2019-02-22] MEDS: PANTOPRAZOLE IV PUSH 40 MG VIAL. IVP SCH (06:11)
[2019-02-22 06:38] LABS: BASO # 0.1 x10^3/uL (0.0-0.2); BASO % 1 % (0-3); EOS # 0.1 x10^3/uL (0.0-0.7); EOS % 1 % (0-3); HEMATOCRIT 32.6 % (36.0-47.0); HEMOGLOBIN 10.4 g/dL (12.0-15.5); LYMPH # 2.5 x10^3/uL (1.0-4.8); LYMPH % 25 % (24-48); MEAN CORPUSCULAR HEMOGLOBIN 25 pg (25-35); MEAN CORPUSCULAR HGB CONC 32 g/dL (31-37); MEAN CORPUSCULAR VOLUME 77 fL (79-100); MONO # 0.8 x10^3/uL (0.0-1.1); MONO % 8 % (0-9); NEUT # 6.3 x10^3uL (1.8-7.7); NEUT % 65 % (31-73); PLATELET COUNT 206 x10^3/uL (140-400); RED BLOOD COUNT 4.22 x10^6/uL (3.50-5.40); RED CELL DISTRIBUTION WIDTH 24.1 % (11.5-14.5); WHITE BLOOD COUNT 9.7 x10^3/uL (4.0-11.0)
[2019-02-22 06:56] LABS: ALBUMIN 2.9 g/dL (3.4-5.0); ALBUMIN/GLOBULIN RATIO 0.6 (1.0-1.7); CALCIUM 8.9 mg/dL (8.5-10.1); CREATININE 0.7 mg/dL (0.6-1.0); GFR 98.7; TOTAL BILIRUBIN 0.3 mg/dL (0.2-1.0); TOTAL PROTEIN 7.4 g/dL (6.4-8.2)
[2019-02-22 07:00] VITALS: BP 153/92
[2019-02-22] MEDS: IPRATRPIUM/ALBUTEROL 0.5/2.5MG 3 ML NEBU. NEB SCH ×2 (07:17→18:36)
[2019-02-22] MEDS: INSULIN LISPRO 300 UNITS/3 ML INSULN.PEN. SQ SCH ×3 (08:00→17:00)
--- NOTE | 2019-02-22 08:05 | RAD ---
EXAM: Abdomen, single view. HISTORY: Nasogastric tube placement. COMPARISON: CT obtained on the same date. FINDINGS: A frontal view of the upper abdomen is obtained. There is a nasogastric tube within the proximal stomach. The side-port is at or near the gastroesophageal junction. There are distended air-filled loops of bowel within the upper abdomen. There is suspected bilateral lower lobe atelectasis superimposed on chronic interstitial changes and emphysema. There is a prominent cardiac silhouette. There is lumbar fusion instrumentation. There is a small amount contrast within the renal collecting system due to a recent CT. IMPRESSION: 1. Nasogastric tube within the proximal stomach. The side-port is at or near the gastroesophageal junction. 2. Distended air-filled bowel within the upper abdomen. This better characterized on the recent CT. 3. Suspected bilateral lower lobe atelectasis superimposed on emphysema. Electronically signed by: Judy Valencia MD (02/22/2019 8:02 AM) [id number]
[2019-02-22] MEDS ORDERED: NICOTINE 21MG PATCH. TD PRN (08:30)
--- NOTE | 2019-02-22 08:41 | NUR ---
SW following for discharge planning. Discussed with RN, pt currently has an NG tube, and is here for similar reasons as prior admissions. SW will continue to follow for any discharge planning needs.
--- NOTE | 2019-02-22 08:47 | PDOC2 ---
ABRAHAM WEBER [employer] TECHNICIAN 02/22/19 0847: CONSULT Date of Consult Date of Consult DATE: 02/22/19 TIME: 08:40 Reason for Consult Reason for Consult: SBO Referring Physician Referring Physician: ER Identification/Chief Complaint Chief Complaint abd pain Source Source: Chart review, Patient History of Present Illness Reason for Visit: Patient known from surgery with Dr Wei in December where she underwent Laparoscopic-assisted right colon resection and hemorrhoidectomy for bleeding ulcer and then underwent Exploratory laparotomy with extended right hemicolectomy and primary anastomosis for sbo 2 weeks later. She had a extended recovery and very slow return of her bowel function. Now returns with abdominal pain and nausea.. She reports BM yesterday, small, no diarrhea. Still had been taking some PO at home. Currently no flatus Past Medical History Cardiovascular: HTN Pulmonary: Asthma, Bronchitis, COPD Past Surgical History Past Surgical History: Colon Resection Family History Family History: No Significant, Heart Disease Social History Social History: Parent ALCOHOL: none Drugs: None Lives: with Family Current Problem List Problem List Problems Medical Problems: (1) Small bowel obstruction Status: Acute Current Medications Current Medications Current Medications Sodium Chloride 1,000 ml @ 1,000 mls/hr 1X ONCE IV Last administered on at 17:59; Start 02/21/19 at 17:45; Stop 02/21/19 at 18:44; Status DC Iohexol (Omnipaque 300 Mg/ml) 75 ml 1X ONCE IV Last administered on 02/21/19at 19:00; Start 02/21/19 at 18:00; Stop 02/21/19 at 18:01; Status DC Info (CONTRAST GIVEN -- Rx MONITORING) 1 each PRN DAILY PRN MC SEE COMMENTS; Start 02/21/19 at 18:15; Stop 02/23/19 at 18:14 Ondansetron HCl (Zofran) 4 mg PRN Q8HRS PRN IV NAUSEA/VOMITING; Start 02/21/19 at 21:15; Stop 02/22/19 at 00:58; Status DC Morphine Sulfate (Morphine Sulfate) 2 mg PRN Q2HR PRN IV PAIN; Start 02/21/19 at 21:15; Stop 02/22/19 at 21:14 Sodium Chloride 1,000 ml @ 125 mls/hr 1X ONCE IV Last administered on at 00:07; Start 02/21/19 at 21:15; Stop 02/22/19 at 05:14; Status DC Albuterol/ Ipratropium (Duoneb) 3 ml RTBID NEB Last administered on 02/22/19 07 :17; Start 02/22/19 at 08:00 Non-Formulary Medication (Albuterol Sulfate (Ventolin Hfa Inhaler)) 2 puff Q4HRS INH ; Start 02/22/19 at 04:00; Status UNV Hydrocortisone Acetate (Anucort-Hc) 25 mg BID RC Last administered on 02/22/19 01:20; Start 02/22/19 at 01:15 Hydrocortisone (Cortaid) 1 tomy PRN Q6HRS PRN TP hemorrhoids Last administered on 02/22/19 01:20; Start 02/22/19 at 00:30 Fentanyl Citrate (Fentanyl 2ml Vial) 50 mcg PRN Q2HR PRN IV PAIN; Start at 00:30 Fentanyl Citrate (Fentanyl 2ml Vial) 25 mcg PRN Q2HR PRN IV PAIN Last administered on 02/22/19at 06:17; Start 02/22/19 at 00:30 Throat Lozenges (Chloraseptic) 1 spray PRN Q2HR PRN PO SORE THROAT Last administered on 02/22/19 01:20; Start 02/22/19 at 00:30 Ondansetron HCl (Zofran) 4 mg PRN Q6HRS PRN IV NAUSEA/VOMITING; Start 02/22/19 at 00:30 Sodium Chloride 1,000 ml @ 75 mls/hr [id number] IV Last administered on 02/22/19at 01:21; Start 02/22/19 at 00:30 Insulin Human Lispro (HumaLOG) 0-7 UNITS TIDWMEALS SQ ; Start 02/22/19 at 08:00 Dextrose (Dextrose 50%-Water Syringe) 12.5 gm PRN Q15MIN PRN IV SEE COMMENTS; Start 02/22/19 at 00:30 Pantoprazole Sodium (PROTONIX VIAL for IV PUSH) 40 mg DAILYAC IVP Last administered on 02/22/19at 06:11; Start 02/22/19 at 07:30 Albuterol Sulfate (Ventolin Neb Soln) 2.5 mg Q4HRS NEB Last administered on 02/22at 03:25; Start 02/22/19 at 04:00 Nicotine (Nicoderm Cq 21mg) 1 patch PRN DAILY PRN TD SMOKING CESSATION; Start 02/22/19 at 08:30 Active Scripts Active Hydrocodone-Apap 5-325 (Hydrocodone Bit/Acetaminophen) 1 Tab Tablet 1 Tab PO PRN Q4HRS PRN Symbicort 80-4.5 Mcg Inhaler (Budesonide/Formoterol Fumarate) 10.2 Gm Hfa.aer.ad 1 Puff IH BID Duoneb 0.5-3(2.5) Mg/3 Ml (Albuterol/Ipratropium) 3 Ml Ampul.neb 3 Ml NEB BID [Bisacodyl] 10 MG Supp.rect 10 Mg LA PRN DAILY PRN Colace (Docusate Sodium) 100 Mg Capsule 100 Mg PO DAILY Alprazolam 0.25 Mg Tablet 0.25 Mg PO PRN Q8HRS PRN Cymbalta (Duloxetine Hcl) 30 Mg Capsule.dr 60 Mg PO DAILY Vitamin C (Ascorbate Calcium) 500 Mg Tablet 500 Mg PO DAILY 30 Days Slow Release Iron (Ferrous Sulfate) 250 Mg Tablet.er 250 Mg PO DAILY 30 Days Protonix (Pantoprazole Sodium) 40 Mg Granpkt.dr 40 Mg PO DAILY 30 Days Reported Metoprolol Succinate ( Xl ) (Metoprolol Succinate) 25 Mg Tab.er.24h 25 Mg PO DAILY Loperamide (Loperamide Hcl) 2 Mg Capsule 2 Mg PO PRN Q1HR PRN Anusol-Hc (Hydrocortisone Acetate) 25 Mg Supp.rect 1 Supp RC BID Glycolax (Polyethylene Glycol 3350) 119 Gm Powder 17 Gm PO UD PRN Analpram Hc 2.5% Cream (Hydrocortisone/Pramoxine) 30 Gm Cream.appl 1 Tomy RC PRN Q6HRS PRN Tylenol (Acetaminophen) 325 Mg Tablet 650 Mg PO PRN Q6HRS PRN Metformin Hcl Er (Metformin Hcl) 500 Mg Tab.er.24h 1 Tab PO DAILY Namenda (Memantine Hcl) 10 Mg Tablet 1 Tab PO BID Losartan Potassium 100 Mg Tablet 100 Mg PO DAILY Spironolactone 25 Mg Tablet 1 Tab PO DAILY Ventolin Hfa Inhaler (Albuterol Sulfate) 18 Gm Hfa.aer.ad 2 Puff INH Q4HRS Requip (Ropinirole Hcl) 1 Mg Tablet 3 Mg PO HS Allergies Allergies: Coded Allergies: Penicillins (Verified Allergy, Intermediate, 12/16/18) ROS General: No: Chills, Other (fevers) PSYCHOLOGICAL ROS: No: Anxiety, Depression Eyes: No Blurry vision, No Double vision HEENT: No: Heacaches, Sore Throat Hematological and Lymphatic: No: Bleeding Problems, Blood Clots Respiratory: No: Cough, Shortness of breath Cardiovascular: No Chest Pain, No Palpitations Gastrointestinal: Yes Other (see hpi) Genitourinary: No Dysuria, No Hematuria Musculoskeletal: No Joint Pain, No Muscle Pain Neurological: No Confusion, No Impaired Coord/balance Skin: No Pruritus, No Rash Physical Exam General: Alert, Oriented X3, Cooperative, No acute distress HEENT: Other (NG present ) Lungs: Clear to auscultation, Normal air movement Heart: Regular rate, Normal S1, Normal S2 Abdomen: Soft, Other (ttp mid abdomen, nd) Extremities: No clubbing, No cyanosis Skin: No rashes, No breakdown Neuro: Normal gait, Normal speech, Sensation intact Psych/Mental Status: Mental status NL, Mood NL MUSCULOSKELETAL: No deformity, No swelling Vitals VITALS Vital Signs Date Time Temp Pulse Resp B/P (MAP) Pulse Ox O2 Delivery O2 Flow Rate FiO2 02/22/19 07:19 96 Room Air 02/22/19 07:00 98.5 82 16 153/92 (112) 98.5 Labs Labs Laboratory Tests Test 02/21/19 18:00 02/21/19 23:23 02/22/19 05:18 02/22/19 06:00 White Blood Count 8.0 x10^3/uL (4.0-11.0) 9.7 x10^3/uL (4.0-11.0) Red Blood Count 4.28 x10^6/uL (3.50-5.40) 4.22 x10^6/uL (3.50-5.40) Hemoglobin 10.6 g/dL (12.0-15.5) 10.4 g/dL (12.0-15.5) Hematocrit 33.3 % (36.0-47.0) 32.6 % (36.0-47.0) Mean Corpuscular Volume 78 fL (79-100) 77 fL (79-100) Mean Corpuscular Hemoglobin 25 pg (25-35) 25 pg (25-35) Mean Corpuscular Hemoglobin Concent 32 g/dL (31-37) 32 g/dL (31-37) Red Cell Distribution Width 24.3 % (11.5-14.5) 24.1 % (11.5-14.5) Platelet Count 189 x10^3/uL (140-400) 206 x10^3/uL (140-400) Neutrophils (%) (Auto) 62 % (31-73) 65 % (31-73) Lymphocytes (%) (Auto) 27 % (24-48) 25 % (24-48) Monocytes (%) (Auto) 9 % (0-9) 8 % (0-9) Eosinophils (%) (Auto) 2 % (0-3) 1 % (0-3) Basophils (%) (Auto) 1 % (0-3) 1 % (0-3) Neutrophils # (Auto) 4.9 x10^3uL (1.8-7.7) 6.3 x10^3uL (1.8-7.7) Lymphocytes # (Auto) 2.2 x10^3/uL (1.0-4.8) 2.5 x10^3/uL (1.0-4.8) Monocytes # (Auto) 0.7 x10^3/uL (0.0-1.1) 0.8 x10^3/uL (0.0-1.1) Eosinophils # (Auto) 0.1 x10^3/uL (0.0-0.7) 0.1 x10^3/uL (0.0-0.7) Basophils # (Auto) 0.0 x10^3/uL (0.0-0.2) 0.1 x10^3/uL (0.0-0.2) Platelet Estimate Adequate (ADEQUATE) Hypochromasia Slight Anisocytosis Slight Microcytosis Slight Sodium Level 142 mmol/L (136-145) 139 mmol/L (136-145) Potassium Level 4.6 mmol/L (3.5-5.1) 4.0 mmol/L (3.5-5.1) Chloride Level 104 mmol/L (98-107) 103 mmol/L (98-107) Carbon Dioxide Level 27 mmol/L (21-32) 25 mmol/L (21-32) Anion Gap 11 (6-14) 11 (6-14) Blood Urea Nitrogen 18 mg/dL (7-20) 13 mg/dL (7-20) Creatinine 1.2 mg/dL (0.6-1.0) 0.7 mg/dL (0.6-1.0) Estimated GFR (Cockcroft-Gault) 53.0 98.7 BUN/Creatinine Ratio 15 (6-20) 19 (6-20) Glucose Level 112 mg/dL (70-99) 123 mg/dL (70-99) Calcium Level 9.2 mg/dL (8.5-10.1) 8.9 mg/dL (8.5-10.1) Total Bilirubin 0.3 mg/dL (0.2-1.0) 0.3 mg/dL (0.2-1.0) Aspartate Amino Transf (AST/SGOT) 16 U/L (15-37) 13 U/L (15-37) Alanine Aminotransferase (ALT/SGPT) 17 U/L (14-59) 16 U/L (14-59) Alkaline Phosphatase 70 U/L (46-116) 66 U/L (46-116) Total Protein 7.6 g/dL (6.4-8.2) 7.4 g/dL (6.4-8.2) Albumin 3.2 g/dL (3.4-5.0) 2.9 g/dL (3.4-5.0) Albumin/Globulin Ratio 0.7 (1.0-1.7) 0.6 (1.0-1.7) Lipase 267 U/L (73-393) Glucose (Fingerstick) 105 mg/dL (70-99) Urine Collection Type Unknown Urine Color Yellow Urine Clarity Clear Urine pH 5.5 Urine Specific Brick 1.015 Urine Protein Negative mg/dL (NEG-TRACE) Urine Glucose (UA) Negative mg/dL (NEG) Urine Ketones (Stick) Negative mg/dL (NEG) Urine Blood Moderate (NEG) Urine Nitrite Negative (NEG) Urine Bilirubin Negative (NEG) Urine Urobilinogen Dipstick 1.0 mg/dL (0.2 mg/dL) Urine Leukocyte Esterase Negative (NEG) Urine RBC 6-10 /HPF (0-2) Urine WBC Occ /HPF (0-4) Urine Squamous Epithelial Cells Mod /LPF Urine Bacteria 0 /HPF (0-FEW) Urine Mucus Mod /LPF Laboratory Tests Test 02/21/19 18:00 02/21/19 23:23 02/22/19 05:18 02/22/19 06:00 White Blood Count 8.0 x10^3/uL (4.0-11.0) 9.7 x10^3/uL (4.0-11.0) Red Blood Count 4.28 x10^6/uL (3.50-5.40) 4.22 x10^6/uL (3.50-5.40) Hemoglobin 10.6 g/dL (12.0-15.5) 10.4 g/dL (12.0-15.5) Hematocrit 33.3 % (36.0-47.0) 32.6 % (36.0-47.0) Mean Corpuscular Volume 78 fL (79-100) 77 fL (79-100) Mean Corpuscular Hemoglobin 25 pg (25-35) 25 pg (25-35) Mean Corpuscular Hemoglobin Concent 32 g/dL (31-37) 32 g/dL (31-37) Red Cell Distribution Width 24.3 % (11.5-14.5) 24.1 % (11.5-14.5) Platelet Count 189 x10^3/uL (140-400) 206 x10^3/uL (140-400) Neutrophils (%) (Auto) 62 % (31-73) 65 % (31-73) Lymphocytes (%) (Auto) 27 % (24-48) 25 % (24-48) Monocytes (%) (Auto) 9 % (0-9) 8 % (0-9) Eosinophils (%) (Auto) 2 % (0-3) 1 % (0-3) Basophils (%) (Auto) 1 % (0-3) 1 % (0-3) Neutrophils # (Auto) 4.9 x10^3uL (1.8-7.7) 6.3 x10^3uL (1.8-7.7) Lymphocytes # (Auto) 2.2 x10^3/uL (1.0-4.8) 2.5 x10^3/uL (1.0-4.8) Monocytes # (Auto) 0.7 x10^3/uL (0.0-1.1) 0.8 x10^3/uL (0.0-1.1) Eosinophils # (Auto) 0.1 x10^3/uL (0.0-0.7) 0.1 x10^3/uL (0.0-0.7) Basophils # (Auto) 0.0 x10^3/uL (0.0-0.2) 0.1 x10^3/uL (0.0-0.2) Platelet Estimate Adequate (ADEQUATE) Hypochromasia Slight Anisocytosis Slight Microcytosis Slight Sodium Level 142 mmol/L (136-145) 139 mmol/L (136-145) Potassium Level 4.6 mmol/L (3.5-5.1) 4.0 mmol/L (3.5-5.1) Chloride Level 104 mmol/L (98-107) 103 mmol/L (98-107) Carbon Dioxide Level 27 mmol/L (21-32) 25 mmol/L (21-32) Anion Gap 11 (6-14) 11 (6-14) Blood Urea Nitrogen 18 mg/dL (7-20) 13 mg/dL (7-20) Creatinine 1.2 mg/dL (0.6-1.0) 0.7 mg/dL (0.6-1.0) Estimated GFR (Cockcroft-Gault) 53.0 98.7 BUN/Creatinine Ratio 15 (6-20) 19 (6-20) Glucose Level 112 mg/dL (70-99) 123 mg/dL (70-99) Calcium Level 9.2 mg/dL (8.5-10.1) 8.9 mg/dL (8.5-10.1) Total Bilirubin 0.3 mg/dL (0.2-1.0) 0.3 mg/dL (0.2-1.0) Aspartate Amino Transf (AST/SGOT) 16 U/L (15-37) 13 U/L (15-37) Alanine Aminotransferase (ALT/SGPT) 17 U/L (14-59) 16 U/L (14-59) Alkaline Phosphatase 70 U/L (46-116) 66 U/L (46-116) Total Protein 7.6 g/dL (6.4-8.2) 7.4 g/dL (6.4-8.2) Albumin 3.2 g/dL (3.4-5.0) 2.9 g/dL (3.4-5.0) Albumin/Globulin Ratio 0.7 (1.0-1.7) 0.6 (1.0-1.7) Lipase 267 U/L (73-393) Glucose (Fingerstick) 105 mg/dL (70-99) Urine Collection Type Unknown Urine Color Yellow Urine Clarity Clear Urine pH 5.5 Urine Specific Brick 1.015 Urine Protein Negative mg/dL (NEG-TRACE) Urine Glucose (UA) Negative mg/dL (NEG) Urine Ketones (Stick) Negative mg/dL (NEG) Urine Blood Moderate (NEG) Urine Nitrite Negative (NEG) Urine Bilirubin Negative (NEG) Urine Urobilinogen Dipstick 1.0 mg/dL (0.2 mg/dL) Urine Leukocyte Esterase Negative (NEG) Urine RBC 6-10 /HPF (0-2) Urine WBC Occ /HPF (0-4) Urine Squamous Epithelial Cells Mod /LPF Urine Bacteria 0 /HPF (0-FEW) Urine Mucus Mod /LPF Assessment/Plan Assessment/Plan SBO bowel rest, iv hydration, pain management, NG to LIS xray in AM DAYLIN WEI MD 02/23/19 0755: CONSULT Assessment/Plan Assessment/Plan Agree with Germania assessment and plan ABRAHAM WEBER [employer] TECHNICIAN Feb 22, 2019 08:47 DAYLIN WEI MD Feb 23, 2019 07:55
[2019-02-22] MEDS ORDERED: AMLO10TA8 PO (10:07)
--- NOTE | 2019-02-22 10:32 | PDOC ---
PROGRESS NOTES Chief Complaint Chief Complaint Ileus, SBO Constipation/obstipation COPD-chronic stable hx GI bleed History tension headache History of Present Illness History of Present Illness NGT in place with positive bowel sounds She has an NG tube in place with some 100 mL output in the can Family at bedside I have personally reviewed films, lots of stool in the rectal vault Family does mention constipation history Other chart reviewed, she was here 2 visits ago and stayed here for 40 days from GI related issues Plan: Ask general surgery if okay to give enema Family also concerned about obstipation Plan for acute abdominal series tomorrow Keep nothing by mouth IV fluids, PPI IV while nothing by mouth and NG tube Discussed with RN STrict nPO Vitals Vitals Vital Signs Date Time Temp Pulse Resp B/P (MAP) Pulse Ox O2 Delivery O2 Flow Rate FiO2 02/22/19 08:00 Room Air 02/22/19 07:19 96 02/22/19 07:00 98.5 82 16 153/92 (112) 98.5 Physical Exam General: Alert, Oriented X3, Cooperative, No acute distress Heart: Regular rate, Normal S1, Normal S2 Lungs: Clear Abdomen: Soft, Other (ttp mid abdomen, nd) Extremities: No clubbing, No cyanosis Skin: No rashes, No breakdown Labs LABS Laboratory Tests Test 02/21/19 18:00 02/21/19 23:23 02/22/19 05:18 02/22/19 06:00 White Blood Count 8.0 x10^3/uL (4.0-11.0) 9.7 x10^3/uL (4.0-11.0) Red Blood Count 4.28 x10^6/uL (3.50-5.40) 4.22 x10^6/uL (3.50-5.40) Hemoglobin 10.6 g/dL (12.0-15.5) 10.4 g/dL (12.0-15.5) Hematocrit 33.3 % (36.0-47.0) 32.6 % (36.0-47.0) Mean Corpuscular Volume 78 fL (79-100) 77 fL (79-100) Mean Corpuscular Hemoglobin 25 pg (25-35) 25 pg (25-35) Mean Corpuscular Hemoglobin Concent 32 g/dL (31-37) 32 g/dL (31-37) Red Cell Distribution Width 24.3 % (11.5-14.5) 24.1 % (11.5-14.5) Platelet Count 189 x10^3/uL (140-400) 206 x10^3/uL (140-400) Neutrophils (%) (Auto) 62 % (31-73) 65 % (31-73) Lymphocytes (%) (Auto) 27 % (24-48) 25 % (24-48) Monocytes (%) (Auto) 9 % (0-9) 8 % (0-9) Eosinophils (%) (Auto) 2 % (0-3) 1 % (0-3) Basophils (%) (Auto) 1 % (0-3) 1 % (0-3) Neutrophils # (Auto) 4.9 x10^3uL (1.8-7.7) 6.3 x10^3uL (1.8-7.7) Lymphocytes # (Auto) 2.2 x10^3/uL (1.0-4.8) 2.5 x10^3/uL (1.0-4.8) Monocytes # (Auto) 0.7 x10^3/uL (0.0-1.1) 0.8 x10^3/uL (0.0-1.1) Eosinophils # (Auto) 0.1 x10^3/uL (0.0-0.7) 0.1 x10^3/uL (0.0-0.7) Basophils # (Auto) 0.0 x10^3/uL (0.0-0.2) 0.1 x10^3/uL (0.0-0.2) Platelet Estimate Adequate (ADEQUATE) Hypochromasia Slight Anisocytosis Slight Microcytosis Slight Sodium Level 142 mmol/L (136-145) 139 mmol/L (136-145) Potassium Level 4.6 mmol/L (3.5-5.1) 4.0 mmol/L (3.5-5.1) Chloride Level 104 mmol/L (98-107) 103 mmol/L (98-107) Carbon Dioxide Level 27 mmol/L (21-32) 25 mmol/L (21-32) Anion Gap 11 (6-14) 11 (6-14) Blood Urea Nitrogen 18 mg/dL (7-20) 13 mg/dL (7-20) Creatinine 1.2 mg/dL (0.6-1.0) 0.7 mg/dL (0.6-1.0) Estimated GFR (Cockcroft-Gault) 53.0 98.7 BUN/Creatinine Ratio 15 (6-20) 19 (6-20) Glucose Level 112 mg/dL (70-99) 123 mg/dL (70-99) Calcium Level 9.2 mg/dL (8.5-10.1) 8.9 mg/dL (8.5-10.1) Total Bilirubin 0.3 mg/dL (0.2-1.0) 0.3 mg/dL (0.2-1.0) Aspartate Amino Transf (AST/SGOT) 16 U/L (15-37) 13 U/L (15-37) Alanine Aminotransferase (ALT/SGPT) 17 U/L (14-59) 16 U/L (14-59) Alkaline Phosphatase 70 U/L (46-116) 66 U/L (46-116) Total Protein 7.6 g/dL (6.4-8.2) 7.4 g/dL (6.4-8.2) Albumin 3.2 g/dL (3.4-5.0) 2.9 g/dL (3.4-5.0) Albumin/Globulin Ratio 0.7 (1.0-1.7) 0.6 (1.0-1.7) Lipase 267 U/L (73-393) Glucose (Fingerstick) 105 mg/dL (70-99) Urine Collection Type Unknown Urine Color Yellow Urine Clarity Clear Urine pH 5.5 Urine Specific [place] 1.015 Urine Protein Negative mg/dL (NEG-TRACE) Urine Glucose (UA) Negative mg/dL (NEG) Urine Ketones (Stick) Negative mg/dL (NEG) Urine Blood Moderate (NEG) Urine Nitrite Negative (NEG) Urine Bilirubin Negative (NEG) Urine Urobilinogen Dipstick 1.0 mg/dL (0.2 mg/dL) Urine Leukocyte Esterase Negative (NEG) Urine RBC 6-10 /HPF (0-2) Urine WBC Occ /HPF (0-4) Urine Squamous Epithelial Cells Mod /LPF Urine Bacteria 0 /HPF (0-FEW) Urine Mucus Mod /LPF Review of Systems Review of Systems abd bloatedness/discomfort, no emesis, no nausea, positive for constipation Assessment and Plan Assessmemt and Plan Problems Medical Problems: (1) Small bowel obstruction Status: Acute Comment Review of Relevant I have reviewed the following items abdifatah (where applicable) has been applied. Labs Laboratory Tests Test 02/21/19 18:00 02/21/19 23:23 02/22/19 05:18 02/22/19 06:00 White Blood Count 8.0 x10^3/uL (4.0-11.0) 9.7 x10^3/uL (4.0-11.0) Red Blood Count 4.28 x10^6/uL (3.50-5.40) 4.22 x10^6/uL (3.50-5.40) Hemoglobin 10.6 g/dL (12.0-15.5) 10.4 g/dL (12.0-15.5) Hematocrit 33.3 % (36.0-47.0) 32.6 % (36.0-47.0) Mean Corpuscular Volume 78 fL (79-100) 77 fL (79-100) Mean Corpuscular Hemoglobin 25 pg (25-35) 25 pg (25-35) Mean Corpuscular Hemoglobin Concent 32 g/dL (31-37) 32 g/dL (31-37) Red Cell Distribution Width 24.3 % (11.5-14.5) 24.1 % (11.5-14.5) Platelet Count 189 x10^3/uL (140-400) 206 x10^3/uL (140-400) Neutrophils (%) (Auto) 62 % (31-73) 65 % (31-73) Lymphocytes (%) (Auto) 27 % (24-48) 25 % (24-48) Monocytes (%) (Auto) 9 % (0-9) 8 % (0-9) Eosinophils (%) (Auto) 2 % (0-3) 1 % (0-3) Basophils (%) (Auto) 1 % (0-3) 1 % (0-3) Neutrophils # (Auto) 4.9 x10^3uL (1.8-7.7) 6.3 x10^3uL (1.8-7.7) Lymphocytes # (Auto) 2.2 x10^3/uL (1.0-4.8) 2.5 x10^3/uL (1.0-4.8) Monocytes # (Auto) 0.7 x10^3/uL (0.0-1.1) 0.8 x10^3/uL (0.0-1.1) Eosinophils # (Auto) 0.1 x10^3/uL (0.0-0.7) 0.1 x10^3/uL (0.0-0.7) Basophils # (Auto) 0.0 x10^3/uL (0.0-0.2) 0.1 x10^3/uL (0.0-0.2) Platelet Estimate Adequate (ADEQUATE) Hypochromasia Slight Anisocytosis Slight Microcytosis Slight Sodium Level 142 mmol/L (136-145) 139 mmol/L (136-145) Potassium Level 4.6 mmol/L (3.5-5.1) 4.0 mmol/L (3.5-5.1) Chloride Level 104 mmol/L (98-107) 103 mmol/L (98-107) Carbon Dioxide Level 27 mmol/L (21-32) 25 mmol/L (21-32) Anion Gap 11 (6-14) 11 (6-14) Blood Urea Nitrogen 18 mg/dL (7-20) 13 mg/dL (7-20) Creatinine 1.2 mg/dL (0.6-1.0) 0.7 mg/dL (0.6-1.0) Estimated GFR (Cockcroft-Gault) 53.0 98.7 BUN/Creatinine Ratio 15 (6-20) 19 (6-20) Glucose Level 112 mg/dL (70-99) 123 mg/dL (70-99) Calcium Level 9.2 mg/dL (8.5-10.1) 8.9 mg/dL (8.5-10.1) Total Bilirubin 0.3 mg/dL (0.2-1.0) 0.3 mg/dL (0.2-1.0) Aspartate Amino Transf (AST/SGOT) 16 U/L (15-37) 13 U/L (15-37) Alanine Aminotransferase (ALT/SGPT) 17 U/L (14-59) 16 U/L (14-59) Alkaline Phosphatase 70 U/L (46-116) 66 U/L (46-116) Total Protein 7.6 g/dL (6.4-8.2) 7.4 g/dL (6.4-8.2) Albumin 3.2 g/dL (3.4-5.0) 2.9 g/dL (3.4-5.0) Albumin/Globulin Ratio 0.7 (1.0-1.7) 0.6 (1.0-1.7) Lipase 267 U/L (73-393) Glucose (Fingerstick) 105 mg/dL (70-99) Urine Collection Type Unknown Urine Color Yellow Urine Clarity Clear Urine pH 5.5 Urine Specific [place] 1.015 Urine Protein Negative mg/dL (NEG-TRACE) Urine Glucose (UA) Negative mg/dL (NEG) Urine Ketones (Stick) Negative mg/dL (NEG) Urine Blood Moderate (NEG) Urine Nitrite Negative (NEG) Urine Bilirubin Negative (NEG) Urine Urobilinogen Dipstick 1.0 mg/dL (0.2 mg/dL) Urine Leukocyte Esterase Negative (NEG) Urine RBC 6-10 /HPF (0-2) Urine WBC Occ /HPF (0-4) Urine Squamous Epithelial Cells Mod /LPF Urine Bacteria 0 /HPF (0-FEW) Urine Mucus Mod /LPF Laboratory Tests Test 02/21/19 18:00 02/21/19 23:23 02/22/19 05:18 02/22/19 06:00 White Blood Count 8.0 x10^3/uL (4.0-11.0) 9.7 x10^3/uL (4.0-11.0) Red Blood Count 4.28 x10^6/uL (3.50-5.40) 4.22 x10^6/uL (3.50-5.40) Hemoglobin 10.6 g/dL (12.0-15.5) 10.4 g/dL (12.0-15.5) Hematocrit 33.3 % (36.0-47.0) 32.6 % (36.0-47.0) Mean Corpuscular Volume 78 fL (79-100) 77 fL (79-100) Mean Corpuscular Hemoglobin 25 pg (25-35) 25 pg (25-35) Mean Corpuscular Hemoglobin Concent 32 g/dL (31-37) 32 g/dL (31-37) Red Cell Distribution Width 24.3 % (11.5-14.5) 24.1 % (11.5-14.5) Platelet Count 189 x10^3/uL (140-400) 206 x10^3/uL (140-400) Neutrophils (%) (Auto) 62 % (31-73) 65 % (31-73) Lymphocytes (%) (Auto) 27 % (24-48) 25 % (24-48) Monocytes (%) (Auto) 9 % (0-9) 8 % (0-9) Eosinophils (%) (Auto) 2 % (0-3) 1 % (0-3) Basophils (%) (Auto) 1 % (0-3) 1 % (0-3) Neutrophils # (Auto) 4.9 x10^3uL (1.8-7.7) 6.3 x10^3uL (1.8-7.7) Lymphocytes # (Auto) 2.2 x10^3/uL (1.0-4.8) 2.5 x10^3/uL (1.0-4.8) Monocytes # (Auto) 0.7 x10^3/uL (0.0-1.1) 0.8 x10^3/uL (0.0-1.1) Eosinophils # (Auto) 0.1 x10^3/uL (0.0-0.7) 0.1 x10^3/uL (0.0-0.7) Basophils # (Auto) 0.0 x10^3/uL (0.0-0.2) 0.1 x10^3/uL (0.0-0.2) Platelet Estimate Adequate (ADEQUATE) Hypochromasia Slight Anisocytosis Slight Microcytosis Slight Sodium Level 142 mmol/L (136-145) 139 mmol/L (136-145) Potassium Level 4.6 mmol/L (3.5-5.1) 4.0 mmol/L (3.5-5.1) Chloride Level 104 mmol/L (98-107) 103 mmol/L (98-107) Carbon Dioxide Level 27 mmol/L (21-32) 25 mmol/L (21-32) Anion Gap 11 (6-14) 11 (6-14) Blood Urea Nitrogen 18 mg/dL (7-20) 13 mg/dL (7-20) Creatinine 1.2 mg/dL (0.6-1.0) 0.7 mg/dL (0.6-1.0) Estimated GFR (Cockcroft-Gault) 53.0 98.7 BUN/Creatinine Ratio 15 (6-20) 19 (6-20) Glucose Level 112 mg/dL (70-99) 123 mg/dL (70-99) Calcium Level 9.2 mg/dL (8.5-10.1) 8.9 mg/dL (8.5-10.1) Total Bilirubin 0.3 mg/dL (0.2-1.0) 0.3 mg/dL (0.2-1.0) Aspartate Amino Transf (AST/SGOT) 16 U/L (15-37) 13 U/L (15-37) Alanine Aminotransferase (ALT/SGPT) 17 U/L (14-59) 16 U/L (14-59) Alkaline Phosphatase 70 U/L (46-116) 66 U/L (46-116) Total Protein 7.6 g/dL (6.4-8.2) 7.4 g/dL (6.4-8.2) Albumin 3.2 g/dL (3.4-5.0) 2.9 g/dL (3.4-5.0) Albumin/Globulin Ratio 0.7 (1.0-1.7) 0.6 (1.0-1.7) Lipase 267 U/L (73-393) Glucose (Fingerstick) 105 mg/dL (70-99) Urine Collection Type Unknown Urine Color Yellow Urine Clarity Clear Urine pH 5.5 Urine Specific [place] 1.015 Urine Protein Negative mg/dL (NEG-TRACE) Urine Glucose (UA) Negative mg/dL (NEG) Urine Ketones (Stick) Negative mg/dL (NEG) Urine Blood Moderate (NEG) Urine Nitrite Negative (NEG) Urine Bilirubin Negative (NEG) Urine Urobilinogen Dipstick 1.0 mg/dL (0.2 mg/dL) Urine Leukocyte Esterase Negative (NEG) Urine RBC 6-10 /HPF (0-2) Urine WBC Occ /HPF (0-4) Urine Squamous Epithelial Cells Mod /LPF Urine Bacteria 0 /HPF (0-FEW) Urine Mucus Mod /LPF Medications Current Medications Sodium Chloride 1,000 ml @ 1,000 mls/hr 1X ONCE IV Last administered on at 17:59; Start 02/21/19 at 17:45; Stop 02/21/19 at 18:44; Status DC Iohexol (Omnipaque 300 Mg/ml) 75 ml 1X ONCE IV Last administered on 02/21/19at 19:00; Start 02/21/19 at 18:00; Stop 02/21/19 at 18:01; Status DC Info (CONTRAST GIVEN -- Rx MONITORING) 1 each PRN DAILY PRN MC SEE COMMENTS; Start 02/21/19 at 18:15; Stop 02/23/19 at 18:14 Ondansetron HCl (Zofran) 4 mg PRN Q8HRS PRN IV NAUSEA/VOMITING; Start 02/21/19 at 21:15; Stop 02/22/19 at 00:58; Status DC Morphine Sulfate (Morphine Sulfate) 2 mg PRN Q2HR PRN IV PAIN; Start 02/21/19 at 21:15; Stop 02/22/19 at 21:14 Sodium Chloride 1,000 ml @ 125 mls/hr 1X ONCE IV Last administered on at 00:07; Start 02/21/19 at 21:15; Stop 02/22/19 at 05:14; Status DC Albuterol/ Ipratropium (Duoneb) 3 ml RTBID NEB Last administered on 02/22/19at 07 :17; Start 02/22/19 at 08:00 Non-Formulary Medication (Albuterol Sulfate (Ventolin Hfa Inhaler)) 2 puff Q4HRS INH ; Start 02/22/19 at 04:00; Status UNV Hydrocortisone Acetate (Anucort-Hc) 25 mg BID RC Last administered on 02/22/19at 09:56; Start 02/22/19 at 01:15 Hydrocortisone (Cortaid) 1 tomy PRN Q6HRS PRN TP hemorrhoids Last administered on 02/22/19at 01:20; Start 02/22/19 at 00:30 Fentanyl Citrate (Fentanyl 2ml Vial) 50 mcg PRN Q2HR PRN IV PAIN; Start at 00:30 Fentanyl Citrate (Fentanyl 2ml Vial) 25 mcg PRN Q2HR PRN IV PAIN Last administered on 02/22/19at 06:17; Start 02/22/19 at 00:30 Throat Lozenges (Chloraseptic) 1 spray PRN Q2HR PRN PO SORE THROAT Last administered on 02/22/19at 01:20; Start 02/22/19 at 00:30 Ondansetron HCl (Zofran) 4 mg PRN Q6HRS PRN IV NAUSEA/VOMITING; Start 02/22/19 at 00:30 Sodium Chloride 1,000 ml @ 75 mls/hr [id number] IV Last administered on 02/22/19at 01:21; Start 02/22/19 at 00:30 Insulin Human Lispro (HumaLOG) 0-7 UNITS TIDWMEALS SQ ; Start 02/22/19 at 08:00 Dextrose (Dextrose 50%-Water Syringe) 12.5 gm PRN Q15MIN PRN IV SEE COMMENTS; Start 02/22/19 at 00:30 Pantoprazole Sodium (PROTONIX VIAL for IV PUSH) 40 mg DAILYAC IVP Last administered on 02/22/19at 06:11; Start 02/22/19 at 07:30 Albuterol Sulfate (Ventolin Neb Soln) 2.5 mg Q4HRS NEB Last administered on 02/22at 03:25; Start 02/22/19 at 04:00 Nicotine (Nicoderm Cq 21mg) 1 patch PRN DAILY PRN TD SMOKING CESSATION; Start 02/22/19 at 08:30 Active Scripts Active Duoneb 0.5-3(2.5) Mg/3 Ml (Albuterol/Ipratropium) 3 Ml Ampul.neb 3 Ml NEB BID Alprazolam 0.25 Mg Tablet 0.25 Mg PO PRN Q8HRS PRN Cymbalta (Duloxetine Hcl) 30 Mg Capsule.dr 60 Mg PO DAILY Vitamin C (Ascorbate Calcium) 500 Mg Tablet 500 Mg PO DAILY 30 Days Slow Release Iron (Ferrous Sulfate) 250 Mg Tablet.er 250 Mg PO DAILY 30 Days Protonix (Pantoprazole Sodium) 40 Mg Granpkt.dr 40 Mg PO DAILY 30 Days Reported Amlodipine Besylate 10 Mg Tablet 10 Mg PO DAILY Metoprolol Succinate ( Xl ) (Metoprolol Succinate) 25 Mg Tab.er.24h 25 Mg PO DAILY Anusol-Hc (Hydrocortisone Acetate) 25 Mg Supp.rect 1 Supp RC BID Analpram Hc 2.5% Cream (Hydrocortisone/Pramoxine) 30 Gm Cream.appl 1 Tomy RC PRN Q6HRS PRN Tylenol (Acetaminophen) 325 Mg Tablet 650 Mg PO PRN Q6HRS PRN Metformin Hcl Er (Metformin Hcl) 500 Mg Tab.er.24h 1 Tab PO DAILY Namenda (Memantine Hcl) 10 Mg Tablet 1 Tab PO BID Losartan Potassium 100 Mg Tablet 100 Mg PO DAILY Spironolactone 25 Mg Tablet 1 Tab PO DAILY Ventolin Hfa Inhaler (Albuterol Sulfate) 18 Gm Hfa.aer.ad 2 Puff INH Q4HRS Requip (Ropinirole Hcl) 1 Mg Tablet 3 Mg PO HS Vitals/I & O Vital Sign - Last 24 Hours 02/21/19 02/21/19 02/21/19 02/21/19 17:15 17:32 17:58 19:28 Temp 98.8 98.8 Pulse 73 72 69 68 Resp 17 16 16 15 B/P (MAP) 119/72 (88) 119/72 (88) 114/70 (85) 113/72 (86) Pulse Ox 95 96 95 95 O2 Delivery Room Air Room Air Room Air Room Air 02/21/19 02/21/19 02/21/19 02/22/19 22:00 22:50 22:50 01:20 Temp 98.6 98.6 Pulse 66 64 Resp 15 16 B/P (MAP) 124/67 (86) 135/85 (102) Pulse Ox 96 91 O2 Delivery Room Air Room Air Room Air Room Air 02/22/19 02/22/19 02/22/19 02/22/19 03:00 03:25 03:56 06:17 Temp 98.9 98.9 Pulse 74 Resp 18 B/P (MAP) 127/77 (94) Pulse Ox 92 93 O2 Delivery Room Air Room Air Room Air Room Air 02/22/19 02/22/19 02/22/19 02/22/19 06:47 07:00 07:19 08:00 Temp 98.5 98.5 Pulse 82 Resp 16 B/P (MAP) 153/92 (112) Pulse Ox 95 96 O2 Delivery Room Air Room Air Room Air Room Air Intake and Output 02/21/19 02/21/19 02/22/19 14:59 22:59 06:59 Intake Total 1000 ml Balance 1000 ml SON LAU MD Feb 22, 2019 10:32
[2019-02-22 11:00] VITALS: BP 141/83
[2019-02-22] MEDS ORDERED: SODIUM PHOSPHATES 19/7GM 133 ML ENEMA. PR ONE (11:00)
[2019-02-22 15:00] VITALS: BP 162/98
[2019-02-22] MEDS: LABETALOL 20 MG/4 ML DISP.SYRIN. IVP PRN ×2 (15:08→23:05)
[2019-02-22] MEDS ORDERED: L GA1CAP2 PO (15:12)
[2019-02-22] MEDS ORDERED: METHYL SALICYLATE/MENTHOL TOPICAL OINTMENT 29GM TUBE. TP PRN (18:30)
[2019-02-22 19:00] VITALS: BP_SYST 122; BP_SYST 163; BP_DIAS 86; BP_DIAS 99
[2019-02-22 23:00] VITALS: BP 122/86
[2019-02-23 03:00] VITALS: BP 173/98
[2019-02-23] MEDS: IV NORMAL SALINE 1000ML BAG 1,000 ML IV SCH ×2 (03:10→16:30)
[2019-02-23] MEDS: ALBUTEROL SULFATE 2.5 MG/3 ML NEBU. NEB SCH ×6 (04:00→23:05)
[2019-02-23 07:00] VITALS: BP 134/99
[2019-02-23] MEDS: IPRATRPIUM/ALBUTEROL 0.5/2.5MG 3 ML NEBU. NEB SCH (07:29)
--- NOTE | 2019-02-23 07:57 | PDOC ---
SURGICAL PROGRESS NOTE Subjective Patient feeling better this morning this had 2 bowel movements one last night after enema and one this morning. Denies any nausea passing flatus Vital Signs Vital Signs Date Time Temp Pulse Resp B/P (MAP) Pulse Ox O2 Delivery O2 Flow Rate FiO2 02/23/19 07:29 92 Room Air 02/23/19 03:00 98.4 89 18 173/98 (123) 98.4 I&O Intake and Output 02/23/19 07:00 Intake Total 0 ml Output Total 250 ml Balance -250 ml Intake Oral 0 ml Output Gastric Drainage Total 250 ml # Voids 8 # Bowel Movements 3 PATIENT HAS A PILLAI: No General: Alert, Oriented X3, Cooperative, mild distress Abdomen: Normal bowel sounds, Soft, No tenderness, Other (NG tube in place) Labs Laboratory Tests Test 02/21/19 18:00 02/21/19 23:23 02/22/19 05:18 02/22/19 06:00 White Blood Count 8.0 x10^3/uL (4.0-11.0) 9.7 x10^3/uL (4.0-11.0) Red Blood Count 4.28 x10^6/uL (3.50-5.40) 4.22 x10^6/uL (3.50-5.40) Hemoglobin 10.6 g/dL (12.0-15.5) 10.4 g/dL (12.0-15.5) Hematocrit 33.3 % (36.0-47.0) 32.6 % (36.0-47.0) Mean Corpuscular Volume 78 fL (79-100) 77 fL (79-100) Mean Corpuscular Hemoglobin 25 pg (25-35) 25 pg (25-35) Mean Corpuscular Hemoglobin Concent 32 g/dL (31-37) 32 g/dL (31-37) Red Cell Distribution Width 24.3 % (11.5-14.5) 24.1 % (11.5-14.5) Platelet Count 189 x10^3/uL (140-400) 206 x10^3/uL (140-400) Neutrophils (%) (Auto) 62 % (31-73) 65 % (31-73) Lymphocytes (%) (Auto) 27 % (24-48) 25 % (24-48) Monocytes (%) (Auto) 9 % (0-9) 8 % (0-9) Eosinophils (%) (Auto) 2 % (0-3) 1 % (0-3) Basophils (%) (Auto) 1 % (0-3) 1 % (0-3) Neutrophils # (Auto) 4.9 x10^3uL (1.8-7.7) 6.3 x10^3uL (1.8-7.7) Lymphocytes # (Auto) 2.2 x10^3/uL (1.0-4.8) 2.5 x10^3/uL (1.0-4.8) Monocytes # (Auto) 0.7 x10^3/uL (0.0-1.1) 0.8 x10^3/uL (0.0-1.1) Eosinophils # (Auto) 0.1 x10^3/uL (0.0-0.7) 0.1 x10^3/uL (0.0-0.7) Basophils # (Auto) 0.0 x10^3/uL (0.0-0.2) 0.1 x10^3/uL (0.0-0.2) Platelet Estimate Adequate (ADEQUATE) Hypochromasia Slight Anisocytosis Slight Microcytosis Slight Sodium Level 142 mmol/L (136-145) 139 mmol/L (136-145) Potassium Level 4.6 mmol/L (3.5-5.1) 4.0 mmol/L (3.5-5.1) Chloride Level 104 mmol/L (98-107) 103 mmol/L (98-107) Carbon Dioxide Level 27 mmol/L (21-32) 25 mmol/L (21-32) Anion Gap 11 (6-14) 11 (6-14) Blood Urea Nitrogen 18 mg/dL (7-20) 13 mg/dL (7-20) Creatinine 1.2 mg/dL (0.6-1.0) 0.7 mg/dL (0.6-1.0) Estimated GFR (Cockcroft-Gault) 53.0 98.7 BUN/Creatinine Ratio 15 (6-20) 19 (6-20) Glucose Level 112 mg/dL (70-99) 123 mg/dL (70-99) Calcium Level 9.2 mg/dL (8.5-10.1) 8.9 mg/dL (8.5-10.1) Total Bilirubin 0.3 mg/dL (0.2-1.0) 0.3 mg/dL (0.2-1.0) Aspartate Amino Transf (AST/SGOT) 16 U/L (15-37) 13 U/L (15-37) Alanine Aminotransferase (ALT/SGPT) 17 U/L (14-59) 16 U/L (14-59) Alkaline Phosphatase 70 U/L (46-116) 66 U/L (46-116) Total Protein 7.6 g/dL (6.4-8.2) 7.4 g/dL (6.4-8.2) Albumin 3.2 g/dL (3.4-5.0) 2.9 g/dL (3.4-5.0) Albumin/Globulin Ratio 0.7 (1.0-1.7) 0.6 (1.0-1.7) Lipase 267 U/L (73-393) Glucose (Fingerstick) 105 mg/dL (70-99) Urine Collection Type Unknown Urine Color Yellow Urine Clarity Clear Urine pH 5.5 Urine Specific [place] 1.015 Urine Protein Negative mg/dL (NEG-TRACE) Urine Glucose (UA) Negative mg/dL (NEG) Urine Ketones (Stick) Negative mg/dL (NEG) Urine Blood Moderate (NEG) Urine Nitrite Negative (NEG) Urine Bilirubin Negative (NEG) Urine Urobilinogen Dipstick 1.0 mg/dL (0.2 mg/dL) Urine Leukocyte Esterase Negative (NEG) Urine RBC 6-10 /HPF (0-2) Urine WBC Occ /HPF (0-4) Urine Squamous Epithelial Cells Mod /LPF Urine Bacteria 0 /HPF (0-FEW) Urine Mucus Mod /LPF Test 02/22/19 08:08 02/22/19 12:29 02/22/19 17:04 02/22/19 21:32 Glucose (Fingerstick) 130 mg/dL (70-99) 123 mg/dL (70-99) 121 mg/dL (70-99) 111 mg/dL (70-99) Laboratory Tests Test 02/22/19 08:08 02/22/19 12:29 02/22/19 17:04 02/22/19 21:32 Glucose (Fingerstick) 130 mg/dL (70-99) 123 mg/dL (70-99) 121 mg/dL (70-99) 111 mg/dL (70-99) Problem List Problems Medical Problems: (1) Small bowel obstruction Status: Acute Assessment/Plan Small bowel obstruction versus constipation had good results with enema will review abdominal films of improvable DC NG tube and start clear liquids DAYLIN WEI MD Feb 23, 2019 07:57
[2019-02-23] MEDS: INSULIN LISPRO 300 UNITS/3 ML INSULN.PEN. SQ SCH ×3 (08:00→17:00)
[2019-02-23] MEDS: PANTOPRAZOLE IV PUSH 40 MG VIAL. IVP SCH (08:59)
[2019-02-23] MEDS: LACTOBACILLUS RHAMNOSUS GG 1 CAPSULE. PO SCH (09:00)
[2019-02-23] MEDS: HYDROCORTISONE ACETATE 25 MG SUPP.RECT RC SCH ×2 (09:19→22:52)
--- NOTE | 2019-02-23 09:59 | RAD ---
Examination: ACUTE ABDOMEN SERIES History: SMALL BOWEL OBSTRUCTION Comparison/Correlation: 02/21/2019 CT abdomen and pelvis with contrast Findings: Frontal view chest, upright view of the abdomen, and supine view of the abdomen were obtained. Nasogastric tube terminates slightly beyond the gastroesophageal junction. Heart size and pulmonary vasculature are normal. Medial right basilar discoid atelectasis noted. Left lung field is unremarkable. Rods and screws involving the upper to mid lumbar spine. Fluid levels are present within nondistended bowel. Suture material involves the pelvis and right lower quadrant. Moderate gaseous distention of colon noted. Impression: Decreased gaseous distention of bowel. Fluid levels in bowel may represent gastroenteritis. No infiltrate. Electronically signed by: Omar Galindo MD (02/23/2019 9:56 AM) [facility]
--- NOTE | 2019-02-23 09:59 | PDOC ---
PROGRESS NOTES Chief Complaint Chief Complaint Ileus, SBO Constipation/obstipation COPD-chronic stable hx GI bleed History tension headache History of Present Illness History of Present Illness NG tube in place About 600 mL output last night Positive flatus Move BM 2 significant Positive bowel sounds and she feels much better Abdomen is soft, nondistended Acute abdominal series pending Plan: await acute abdominal series, if looks good possible DC NG tube and start some diet GS following Discussed with RN and patient Vitals Vitals Vital Signs Date Time Temp Pulse Resp B/P (MAP) Pulse Ox O2 Delivery O2 Flow Rate FiO2 02/23/19 07:29 92 Room Air 02/23/19 07:00 98.2 90 18 134/99 (111) 98.2 Physical Exam General: Alert, Oriented X3, Cooperative, mild distress Heart: Regular rate, Normal S1, Normal S2 Lungs: Clear Abdomen: Normal bowel sounds, Soft, No tenderness, Other (NG tube in place) Extremities: No clubbing, No cyanosis Skin: No rashes, No breakdown Labs LABS Laboratory Tests Test 02/22/19 12:29 02/22/19 17:04 02/22/19 21:32 02/23/19 08:10 Glucose (Fingerstick) 123 mg/dL (70-99) 121 mg/dL (70-99) 111 mg/dL (70-99) 141 mg/dL (70-99) Review of Systems Review of Systems A 14 point ROS was completed with the following noted as positive: Other systems reviewed and negative. \CONSTITUTIONAL: No fever or chills EYES: No recent changes SKIN: No rash or itching CARDIOVASCULAR: No chest pain, syncope, palpitations, or edema RESPIRATORY: No SOB or cough GASTROINTESTINAL: No nausea, vomiting or abdominal pain NEUROLOGICAL: No headaches or weakness ENDOCRINE: No cold or heat intolerance GENITOURINARY: No urgency or frequency of urination MUSCULOSKELETAL: No back pain or joint pain LYMPHATICS: No enlarged lymph nodes PSYCHIATRIC: No anxiety or depression Assessment and Plan Assessmemt and Plan Problems Medical Problems: (1) Small bowel obstruction Status: Acute Comment Review of Relevant I have reviewed the following items abdifatah (where applicable) has been applied. Labs Laboratory Tests Test 02/21/19 18:00 02/21/19 23:23 02/22/19 05:18 02/22/19 06:00 White Blood Count 8.0 x10^3/uL (4.0-11.0) 9.7 x10^3/uL (4.0-11.0) Red Blood Count 4.28 x10^6/uL (3.50-5.40) 4.22 x10^6/uL (3.50-5.40) Hemoglobin 10.6 g/dL (12.0-15.5) 10.4 g/dL (12.0-15.5) Hematocrit 33.3 % (36.0-47.0) 32.6 % (36.0-47.0) Mean Corpuscular Volume 78 fL (79-100) 77 fL (79-100) Mean Corpuscular Hemoglobin 25 pg (25-35) 25 pg (25-35) Mean Corpuscular Hemoglobin Concent 32 g/dL (31-37) 32 g/dL (31-37) Red Cell Distribution Width 24.3 % (11.5-14.5) 24.1 % (11.5-14.5) Platelet Count 189 x10^3/uL (140-400) 206 x10^3/uL (140-400) Neutrophils (%) (Auto) 62 % (31-73) 65 % (31-73) Lymphocytes (%) (Auto) 27 % (24-48) 25 % (24-48) Monocytes (%) (Auto) 9 % (0-9) 8 % (0-9) Eosinophils (%) (Auto) 2 % (0-3) 1 % (0-3) Basophils (%) (Auto) 1 % (0-3) 1 % (0-3) Neutrophils # (Auto) 4.9 x10^3uL (1.8-7.7) 6.3 x10^3uL (1.8-7.7) Lymphocytes # (Auto) 2.2 x10^3/uL (1.0-4.8) 2.5 x10^3/uL (1.0-4.8) Monocytes # (Auto) 0.7 x10^3/uL (0.0-1.1) 0.8 x10^3/uL (0.0-1.1) Eosinophils # (Auto) 0.1 x10^3/uL (0.0-0.7) 0.1 x10^3/uL (0.0-0.7) Basophils # (Auto) 0.0 x10^3/uL (0.0-0.2) 0.1 x10^3/uL (0.0-0.2) Platelet Estimate Adequate (ADEQUATE) Hypochromasia Slight Anisocytosis Slight Microcytosis Slight Sodium Level 142 mmol/L (136-145) 139 mmol/L (136-145) Potassium Level 4.6 mmol/L (3.5-5.1) 4.0 mmol/L (3.5-5.1) Chloride Level 104 mmol/L (98-107) 103 mmol/L (98-107) Carbon Dioxide Level 27 mmol/L (21-32) 25 mmol/L (21-32) Anion Gap 11 (6-14) 11 (6-14) Blood Urea Nitrogen 18 mg/dL (7-20) 13 mg/dL (7-20) Creatinine 1.2 mg/dL (0.6-1.0) 0.7 mg/dL (0.6-1.0) Estimated GFR (Cockcroft-Gault) 53.0 98.7 BUN/Creatinine Ratio 15 (6-20) 19 (6-20) Glucose Level 112 mg/dL (70-99) 123 mg/dL (70-99) Calcium Level 9.2 mg/dL (8.5-10.1) 8.9 mg/dL (8.5-10.1) Total Bilirubin 0.3 mg/dL (0.2-1.0) 0.3 mg/dL (0.2-1.0) Aspartate Amino Transf (AST/SGOT) 16 U/L (15-37) 13 U/L (15-37) Alanine Aminotransferase (ALT/SGPT) 17 U/L (14-59) 16 U/L (14-59) Alkaline Phosphatase 70 U/L (46-116) 66 U/L (46-116) Total Protein 7.6 g/dL (6.4-8.2) 7.4 g/dL (6.4-8.2) Albumin 3.2 g/dL (3.4-5.0) 2.9 g/dL (3.4-5.0) Albumin/Globulin Ratio 0.7 (1.0-1.7) 0.6 (1.0-1.7) Lipase 267 U/L (73-393) Glucose (Fingerstick) 105 mg/dL (70-99) Urine Collection Type Unknown Urine Color Yellow Urine Clarity Clear Urine pH 5.5 Urine Specific Patten 1.015 Urine Protein Negative mg/dL (NEG-TRACE) Urine Glucose (UA) Negative mg/dL (NEG) Urine Ketones (Stick) Negative mg/dL (NEG) Urine Blood Moderate (NEG) Urine Nitrite Negative (NEG) Urine Bilirubin Negative (NEG) Urine Urobilinogen Dipstick 1.0 mg/dL (0.2 mg/dL) Urine Leukocyte Esterase Negative (NEG) Urine RBC 6-10 /HPF (0-2) Urine WBC Occ /HPF (0-4) Urine Squamous Epithelial Cells Mod /LPF Urine Bacteria 0 /HPF (0-FEW) Urine Mucus Mod /LPF Test 02/22/19 08:08 02/22/19 12:29 02/22/19 17:04 02/22/19 21:32 Glucose (Fingerstick) 130 mg/dL (70-99) 123 mg/dL (70-99) 121 mg/dL (70-99) 111 mg/dL (70-99) Test 02/23/19 08:10 Glucose (Fingerstick) 141 mg/dL (70-99) Laboratory Tests Test 02/22/19 12:29 02/22/19 17:04 02/22/19 21:32 02/23/19 08:10 Glucose (Fingerstick) 123 mg/dL (70-99) 121 mg/dL (70-99) 111 mg/dL (70-99) 141 mg/dL (70-99) Medications Current Medications Sodium Chloride 1,000 ml @ 1,000 mls/hr 1X ONCE IV Last administered on at 17:59; Start 02/21/19 at 17:45; Stop 02/21/19 at 18:44; Status DC Iohexol (Omnipaque 300 Mg/ml) 75 ml 1X ONCE IV Last administered on 02/21/19at 19:00; Start 02/21/19 at 18:00; Stop 02/21/19 at 18:01; Status DC Info (CONTRAST GIVEN -- Rx MONITORING) 1 each PRN DAILY PRN MC SEE COMMENTS; Start 02/21/19 at 18:15; Stop 02/23/19 at 18:14 Ondansetron HCl (Zofran) 4 mg PRN Q8HRS PRN IV NAUSEA/VOMITING; Start 02/21/19 at 21:15; Stop 02/22/19 at 00:58; Status DC Morphine Sulfate (Morphine Sulfate) 2 mg PRN Q2HR PRN IV PAIN; Start 02/21/19 at 21:15; Stop 02/22/19 at 21:14; Status DC Sodium Chloride 1,000 ml @ 125 mls/hr 1X ONCE IV Last administered on at 00:07; Start 02/21/19 at 21:15; Stop 02/22/19 at 05:14; Status DC Albuterol/ Ipratropium (Duoneb) 3 ml RTBID NEB Last administered on 02/22/19at 18 :36; Start 02/22/19 at 08:00; Stop 02/23/19 at 09:38; Status DC Non-Formulary Medication (Albuterol Sulfate (Ventolin Hfa Inhaler)) 2 puff Q4HRS INH ; Start 02/22/19 at 04:00; Status UNV Hydrocortisone Acetate (Anucort-Hc) 25 mg BID RC Last administered on 09:19; Start 02/22/19 at 01:15 Hydrocortisone (Cortaid) 1 tomy PRN Q6HRS PRN TP hemorrhoids Last administered on 02/22/19 01:20; Start 02/22/19 at 00:30 Fentanyl Citrate (Fentanyl 2ml Vial) 50 mcg PRN Q2HR PRN IV SEVERE PAIN Last administered on 02/22/19 20:27; Start 02/22/19 at 00:30 Fentanyl Citrate (Fentanyl 2ml Vial) 25 mcg PRN Q2HR PRN IV MODERATE PAIN Last administered on 02/22/19 06:17; Start 02/22/19 at 00:30 Throat Lozenges (Chloraseptic) 1 spray PRN Q2HR PRN PO SORE THROAT Last administered on 02/22/19 01:20; Start 02/22/19 at 00:30 Ondansetron HCl (Zofran) 4 mg PRN Q6HRS PRN IV NAUSEA/VOMITING; Start 02/22/19 at 00:30 Sodium Chloride 1,000 ml @ 75 mls/hr [id number] IV Last administered on at 03:10; Start 02/22/19 at 00:30 Insulin Human Lispro (HumaLOG) 0-7 UNITS TIDWMEALS SQ ; Start 02/22/19 at 08:00 Dextrose (Dextrose 50%-Water Syringe) 12.5 gm PRN Q15MIN PRN IV SEE COMMENTS; Start 02/22/19 at 00:30 Pantoprazole Sodium (PROTONIX VIAL for IV PUSH) 40 mg DAILYAC IVP Last administered on 02/23/19at 08:59; Start 02/22/19 at 07:30 Albuterol Sulfate (Ventolin Neb Soln) 2.5 mg Q4HRS NEB Last administered on 09/03at 07:29; Start 02/22/19 at 04:00 Nicotine (Nicoderm Cq 21mg) 1 patch PRN DAILY PRN TD SMOKING CESSATION; Start 02/22/19 at 08:30 Sodium Monofluorophosphate (Fleet Adult) 133 ml 1X ONCE [place] Last administered on 02/22/19at 12:12; Start 02/22/19 at 11:00; Stop 02/22/19 at 11:01; Status DC Labetalol HCl (Normodyne Iv Push) 20 mg PRN Q2HR PRN IVP HYPERTENSION, SEE COMMENTS Last administered on 02/22/19at 23:05; Start 02/22/19 at 15:00 Multi-Ingredient Ointment (Analgesic [place]) 1 tomy PRN TID PRN TP MUSCLE PAIN Last administered on 02/22/19at 18:27; Start 02/22/19 at 18:30 Active Scripts Active Duoneb 0.5-3(2.5) Mg/3 Ml (Albuterol/Ipratropium) 3 Ml Ampul.neb 3 Ml NEB BID Alprazolam 0.25 Mg Tablet 0.25 Mg PO PRN Q8HRS PRN Cymbalta (Duloxetine Hcl) 30 Mg Capsule.dr 60 Mg PO DAILY Vitamin C (Ascorbate Calcium) 500 Mg Tablet 500 Mg PO DAILY 30 Days Slow Release Iron (Ferrous Sulfate) 250 Mg Tablet.er 250 Mg PO DAILY 30 Days Protonix (Pantoprazole Sodium) 40 Mg Granpkt.dr 40 Mg PO DAILY 30 Days Reported [facility] Capsule (L Gasseri/B Bifidum/B Longum) 1 Each Capsule 2 Each PO DAILY Amlodipine Besylate 10 Mg Tablet 10 Mg PO DAILY Metoprolol Succinate ( Xl ) (Metoprolol Succinate) 25 Mg Tab.er.24h 25 Mg PO DAILY Anusol-Hc (Hydrocortisone Acetate) 25 Mg Supp.rect 1 Supp RC BID Analpram Hc 2.5% Cream (Hydrocortisone/Pramoxine) 30 Gm Cream.appl 1 Tomy RC PRN Q6HRS PRN Tylenol (Acetaminophen) 325 Mg Tablet 650 Mg PO PRN Q6HRS PRN Metformin Hcl Er (Metformin Hcl) 500 Mg Tab.er.24h 1 Tab PO DAILY Namenda (Memantine Hcl) 10 Mg Tablet 1 Tab PO BID Losartan Potassium 100 Mg Tablet 100 Mg PO DAILY Spironolactone 25 Mg Tablet 1 Tab PO DAILY Ventolin Hfa Inhaler (Albuterol Sulfate) 18 Gm Hfa.aer.ad 2 Puff INH Q4HRS Requip (Ropinirole Hcl) 1 Mg Tablet 3 Mg PO HS Vitals/I & O Vital Sign - Last 24 Hours 02/22/19 02/22/19 02/22/19 02/22/19 10:44 11:00 11:32 15:00 Temp 98.1 97.9 98.1 97.9 Pulse 68 91 Resp 16 16 B/P (MAP) 141/83 (102) 162/98 (119) Pulse Ox 94 93 97 O2 Delivery Room Air Room Air Room Air Room Air 02/22/19 02/22/19 02/22/19 02/22/19 15:08 15:46 18:38 18:38 Pulse 91 B/P (MAP) 162/98 O2 Delivery Room Air Room Air Room Air 02/22/19 02/22/19 02/22/19 02/22/19 19:00 20:00 20:27 20:57 Temp 98.5 98.5 Pulse 90 Resp 18 18 16 B/P (MAP) 163/99 (120) Pulse Ox 94 O2 Delivery Room Air Room Air Room Air 02/22/19 02/22/19 02/22/19 02/23/19 23:00 23:05 23:05 03:00 Temp 98.6 98.4 98.6 98.4 Pulse 85 92 89 Resp 18 18 B/P (MAP) 122/86 (98) 175/101 173/98 (123) Pulse Ox 92 92 92 O2 Delivery Room Air Room Air Room Air 02/23/19 02/23/19 02/23/19 04:00 07:00 07:29 Temp 98.2 98.2 Pulse 90 Resp 18 B/P (MAP) 134/99 (111) Pulse Ox 95 92 O2 Delivery Room Air Room Air Room Air Intake and Output 02/22/19 02/22/19 02/23/19 15:00 23:00 07:00 Intake Total 0 ml Output Total 250 ml Balance -250 ml SON LAU MD Feb 23, 2019 09:59
--- NOTE | 2019-02-23 10:24 | NUR ---
SW following for discharge planning. Discussed with RN, pt is on services with [facility]. Pt has had a bowel movement, surgery recommending daily miralax at home. Chelsi Vincent RN aware pt is here. SW will continue to follow.
[2019-02-23 11:00] VITALS: BP 143/63
[2019-02-23 15:00] VITALS: BP 139/81
[2019-02-23] MEDS ORDERED: ALPRAZolam 0.25 MG TABLET PO PRN (15:15)
[2019-02-23] MEDS: FERROUS SULFATE 325 MG TABLET. PO SCH (16:00)
[2019-02-23] MEDS: amLODIPine BESYLATE 10 MG TABLET PO SCH (16:00)
[2019-02-23] MEDS: ASCORBIC ACID 500 MG TABLET PO SCH (16:00)
[2019-02-23] MEDS: SPIRONOLACTONE 25 MG TABLET PO SCH (16:00)
[2019-02-23] MEDS: POLYETHYLENE GLYCOL 3350 17 GM PACKET. PO SCH (16:00)
[2019-02-23] MEDS: LOSARTAN POTASSIUM 50 MG TABLET. PO SCH (16:00)
[2019-02-23] MEDS: METOPROLOL SUCC 24HR ER 25 MG TAB.ER.24H. PO SCH (17:23)
[2019-02-23] MEDS: DULoxetine HCL 30 MG CAPSULE.DR PO SCH (17:24)
[2019-02-23 19:00] VITALS: BP 161/92
[2019-02-23] MEDS: MEMANTINE 10 MG TABLET. PO SCH (20:20)
[2019-02-23] MEDS: rOPINIRole 1 MG TABLET. PO SCH (20:20)
[2019-02-23] MEDS: LABETALOL 20 MG/4 ML DISP.SYRIN. IVP PRN (20:20)
[2019-02-23] MEDS: ACETAMINOPHEN 325 MG TABLET. PO PRN (20:21)
[2019-02-23 23:00] VITALS: BP 159/86
[2019-02-24 03:00] VITALS: BP 167/92
[2019-02-24] MEDS: LABETALOL 20 MG/4 ML DISP.SYRIN. IVP PRN ×2 (03:26→23:44)
[2019-02-24] MEDS: ALBUTEROL SULFATE 2.5 MG/3 ML NEBU. NEB SCH ×4 (03:58→16:00)
[2019-02-24] MEDS: IV NORMAL SALINE 1000ML BAG 1,000 ML IV SCH (05:43)
[2019-02-24 07:00] VITALS: BP 156/105
[2019-02-24] MEDS: INSULIN LISPRO 300 UNITS/3 ML INSULN.PEN. SQ SCH ×3 (08:00→17:00)
[2019-02-24] MEDS: MEMANTINE 10 MG TABLET. PO SCH ×2 (08:21→21:13)
[2019-02-24] MEDS: SPIRONOLACTONE 25 MG TABLET PO SCH (08:21)
[2019-02-24] MEDS: FERROUS SULFATE 325 MG TABLET. PO SCH (08:21)
[2019-02-24] MEDS: LACTOBACILLUS RHAMNOSUS GG 1 CAPSULE. PO SCH (08:21)
[2019-02-24 08:22] LABS: CALCIUM 9.3 mg/dL (8.5-10.1); CREATININE 0.8 mg/dL (0.6-1.0); GFR 84.6; POTASSIUM 3.3 mmol/L (3.5-5.1)
[2019-02-24] MEDS: PANTOPRAZOLE 40 MG TABLET.DR. PO SCH (08:22)
[2019-02-24] MEDS: amLODIPine BESYLATE 10 MG TABLET PO SCH (08:22)
[2019-02-24] MEDS: ASCORBIC ACID 500 MG TABLET PO SCH (08:22)
[2019-02-24] MEDS: DULoxetine HCL 30 MG CAPSULE.DR PO SCH (08:22)
[2019-02-24] MEDS: HYDROCORTISONE ACETATE 25 MG SUPP.RECT RC SCH ×2 (08:22→21:13)
[2019-02-24] MEDS: POLYETHYLENE GLYCOL 3350 17 GM PACKET. PO SCH (08:22)
[2019-02-24] MEDS: METOPROLOL SUCC 24HR ER 25 MG TAB.ER.24H. PO SCH (08:23)
[2019-02-24] MEDS: metFORMIN XR 500 MG TAB.ER.24H PO SCH (08:23)
[2019-02-24] MEDS: LOSARTAN POTASSIUM 50 MG TABLET. PO SCH (08:23)
[2019-02-24] MEDS ORDERED: DEXTROSE 50% 25 GM / 50ML DISP.SYRIN. IV PRN (09:00)
--- NOTE | 2019-02-24 09:08 | PDOC ---
ABRAHAM WEBER H[employer] FACULT[employer] MEMBER 02/24/19 0907: SURGICAL PROGRESS NOTE Subjective tolerating diet having stools no pain Vital Signs Vital Signs Date Time Temp Pulse Resp B/P (MAP) Pulse Ox O2 Delivery O2 Flow Rate FiO2 02/24/19 08:23 75 156/105 02/24/19 07:17 94 Room Air 02/24/19 07:00 98.4 20 98.4 I&O Intake and Output 02/24/19 06:59 Intake Total 480 ml Output Total 600 ml Balance -120 ml Intake Oral 480 ml Output Gastric Drainage Total 600 ml # Voids 3 General: Alert, Oriented X3, Cooperative, No acute distress Abdomen: Soft, No tenderness Labs Laboratory Tests Test 02/22/19 12:29 02/22/19 17:04 02/22/19 21:32 02/23/19 08:10 Glucose (Fingerstick) 123 mg/dL (70-99) 121 mg/dL (70-99) 111 mg/dL (70-99) 141 mg/dL (70-99) Test 02/23/19 11:42 02/23/19 16:39 02/23/19 20:32 02/24/19 06:25 Glucose (Fingerstick) 132 mg/dL (70-99) 86 mg/dL (70-99) 111 mg/dL (70-99) Sodium Level 141 mmol/L (136-145) Potassium Level 3.3 mmol/L (3.5-5.1) Chloride Level 104 mmol/L (98-107) Carbon Dioxide Level 24 mmol/L (21-32) Anion Gap 13 (6-14) Blood Urea Nitrogen 8 mg/dL (7-20) Creatinine 0.8 mg/dL (0.6-1.0) Estimated GFR (Cockcroft-Gault) 84.6 Glucose Level 129 mg/dL (70-99) Calcium Level 9.3 mg/dL (8.5-10.1) Test 02/24/19 07:41 Glucose (Fingerstick) 138 mg/dL (70-99) Laboratory Tests Test 02/23/19 11:42 02/23/19 16:39 02/23/19 20:32 02/24/19 06:25 Glucose (Fingerstick) 132 mg/dL (70-99) 86 mg/dL (70-99) 111 mg/dL (70-99) Sodium Level 141 mmol/L (136-145) Potassium Level 3.3 mmol/L (3.5-5.1) Chloride Level 104 mmol/L (98-107) Carbon Dioxide Level 24 mmol/L (21-32) Anion Gap 13 (6-14) Blood Urea Nitrogen 8 mg/dL (7-20) Creatinine 0.8 mg/dL (0.6-1.0) Estimated GFR (Cockcroft-Gault) 84.6 Glucose Level 129 mg/dL (70-99) Calcium Level 9.3 mg/dL (8.5-10.1) Test 02/24/19 07:41 Glucose (Fingerstick) 138 mg/dL (70-99) Problem List Problems Medical Problems: (1) Small bowel obstruction Status: Acute Assessment/Plan continues bowel regimen advance diet dc planning DAYLIN WEI MD 02/24/19 1025: SURGICAL PROGRESS NOTE Assessment/Plan Patient doing quite well having bowel movements passing flatus tolerating diet. Abdomen is soft nondistended nontender resolving constipation recommend daily MiraLAX. Yell with Lisandra's assessment and plan ABRAHAM WEBER [employer]AC[employer] MEMBER Feb 24, 2019 09:07 DAYLIN WEI MD Feb 24, 2019 10:25
--- NOTE | 2019-02-24 10:48 | NUR ---
SW following for discharge planning. Discussed with RN, pt on clear liquid diet and NG tube. Pt current with [facility], resumption of care orders needed for discharge. Chelsi Vincent RN aware. SW will continue to follow.
--- NOTE | 2019-02-24 10:56 | PDOC ---
PROGRESS NOTES Chief Complaint Chief Complaint Ileus, SBO Constipation/obstipation COPD-chronic stable hx GI bleed History tension headache History of Present Illness History of Present Illness NG-tube out Started on clear liquid diet 02/23/19 Tolerating diet, interval imaging shows resolution of gaseous distention but maybe some gastroenteritis findings Patient complaining of sore throat and cough HAs had 2 BMs last one 09/03 Plan: home meds have been reconciled We'll go home health tentatively planned tomorrow (Aquinabebeto) Robitusmaximo and Cepastat basilia RN Vitals Vitals Vital Signs Date Time Temp Pulse Resp B/P (MAP) Pulse Ox O2 Delivery O2 Flow Rate FiO2 02/24/19 08:23 75 156/105 02/24/19 07:17 94 Room Air 02/24/19 07:00 98.4 20 98.4 Physical Exam General: Alert, Oriented X3, Cooperative, No acute distress Heart: Regular rate, Normal S1, Normal S2 Lungs: Clear Abdomen: Soft, No tenderness Extremities: No clubbing, No cyanosis Skin: No rashes, No breakdown Labs LABS Laboratory Tests Test 02/23/19 11:42 02/23/19 16:39 02/23/19 20:32 02/24/19 06:25 Glucose (Fingerstick) 132 mg/dL (70-99) 86 mg/dL (70-99) 111 mg/dL (70-99) Sodium Level 141 mmol/L (136-145) Potassium Level 3.3 mmol/L (3.5-5.1) Chloride Level 104 mmol/L (98-107) Carbon Dioxide Level 24 mmol/L (21-32) Anion Gap 13 (6-14) Blood Urea Nitrogen 8 mg/dL (7-20) Creatinine 0.8 mg/dL (0.6-1.0) Estimated GFR (Cockcroft-Gault) 84.6 Glucose Level 129 mg/dL (70-99) Calcium Level 9.3 mg/dL (8.5-10.1) Test 02/24/19 07:41 Glucose (Fingerstick) 138 mg/dL (70-99) Review of Systems Review of Systems sOre throat, cough, the rest of ROS 14 point negative Assessment and Plan Assessmemt and Plan Problems Medical Problems: (1) Small bowel obstruction Status: Acute Comment Review of Relevant I have reviewed the following items abdifatah (where applicable) has been applied. Labs Laboratory Tests Test 02/22/19 12:29 02/22/19 17:04 02/22/19 21:32 02/23/19 08:10 Glucose (Fingerstick) 123 mg/dL (70-99) 121 mg/dL (70-99) 111 mg/dL (70-99) 141 mg/dL (70-99) Test 02/23/19 11:42 02/23/19 16:39 02/23/19 20:32 02/24/19 06:25 Glucose (Fingerstick) 132 mg/dL (70-99) 86 mg/dL (70-99) 111 mg/dL (70-99) Sodium Level 141 mmol/L (136-145) Potassium Level 3.3 mmol/L (3.5-5.1) Chloride Level 104 mmol/L (98-107) Carbon Dioxide Level 24 mmol/L (21-32) Anion Gap 13 (6-14) Blood Urea Nitrogen 8 mg/dL (7-20) Creatinine 0.8 mg/dL (0.6-1.0) Estimated GFR (Cockcroft-Gault) 84.6 Glucose Level 129 mg/dL (70-99) Calcium Level 9.3 mg/dL (8.5-10.1) Test 02/24/19 07:41 Glucose (Fingerstick) 138 mg/dL (70-99) Laboratory Tests Test 02/23/19 11:42 02/23/19 16:39 02/23/19 20:32 02/24/19 06:25 Glucose (Fingerstick) 132 mg/dL (70-99) 86 mg/dL (70-99) 111 mg/dL (70-99) Sodium Level 141 mmol/L (136-145) Potassium Level 3.3 mmol/L (3.5-5.1) Chloride Level 104 mmol/L (98-107) Carbon Dioxide Level 24 mmol/L (21-32) Anion Gap 13 (6-14) Blood Urea Nitrogen 8 mg/dL (7-20) Creatinine 0.8 mg/dL (0.6-1.0) Estimated GFR (Cockcroft-Gault) 84.6 Glucose Level 129 mg/dL (70-99) Calcium Level 9.3 mg/dL (8.5-10.1) Test 02/24/19 07:41 Glucose (Fingerstick) 138 mg/dL (70-99) Medications Current Medications Sodium Chloride 1,000 ml @ 1,000 mls/hr 1X ONCE IV Last administered on at 17:59; Start 02/21/19 at 17:45; Stop 02/21/19 at 18:44; Status DC Iohexol (Omnipaque 300 Mg/ml) 75 ml 1X ONCE IV Last administered on 02/21/19at 19:00; Start 02/21/19 at 18:00; Stop 02/21/19 at 18:01; Status DC Info (CONTRAST GIVEN -- Rx MONITORING) 1 each PRN DAILY PRN MC SEE COMMENTS; Start 02/21/19 at 18:15; Stop 02/23/19 at 18:14; Status DC Ondansetron HCl (Zofran) 4 mg PRN Q8HRS PRN IV NAUSEA/VOMITING; Start 02/21/19 at 21:15; Stop 02/22/19 at 00:58; Status DC Morphine Sulfate (Morphine Sulfate) 2 mg PRN Q2HR PRN IV PAIN; Start 02/21/19 at 21:15; Stop 02/22/19 at 21:14; Status DC Sodium Chloride 1,000 ml @ 125 mls/hr 1X ONCE IV Last administered on at 00:07; Start 02/21/19 at 21:15; Stop 02/22/19 at 05:14; Status DC Albuterol/ Ipratropium (Duoneb) 3 ml RTBID NEB Last administered on 02/22/19at 18 :36; Start 02/22/19 at 08:00; Stop 02/23/19 at 09:38; Status DC Non-Formulary Medication (Albuterol Sulfate (Ventolin Hfa Inhaler)) 2 puff Q4HRS INH ; Start 02/22/19 at 04:00; Status UNV Hydrocortisone Acetate (Anucort-Hc) 25 mg BID RC Last administered on at 08:22; Start 02/22/19 at 01:15 Hydrocortisone (Cortaid) 1 tomy PRN Q6HRS PRN TP hemorrhoids Last administered on 02/22/19at 01:20; Start 02/22/19 at 00:30 Fentanyl Citrate (Fentanyl 2ml Vial) 50 mcg PRN Q2HR PRN IV SEVERE PAIN Last administered on 02/22/19 20:27; Start 02/22/19 at 00:30 Fentanyl Citrate (Fentanyl 2ml Vial) 25 mcg PRN Q2HR PRN IV MODERATE PAIN Last administered on 02/22/19 06:17; Start 02/22/19 at 00:30 Throat Lozenges (Chloraseptic) 1 spray PRN Q2HR PRN PO SORE THROAT Last administered on 02/22/19at 01:20; Start 02/22/19 at 00:30 Ondansetron HCl (Zofran) 4 mg PRN Q6HRS PRN IV NAUSEA/VOMITING; Start 02/22/19 at 00:30 Sodium Chloride 1,000 ml @ 75 mls/hr [id number] IV Last administered on 05:43; Start 02/22/19 at 00:30; Stop 02/24/19 at 08:46; Status DC Insulin Human Lispro (HumaLOG) 0-7 UNITS TIDWMEALS SQ ; Start 02/22/19 at 08:00 Dextrose (Dextrose 50%-Water Syringe) 12.5 gm PRN Q15MIN PRN IV SEE COMMENTS; Start 02/22/19 at 00:30 Pantoprazole Sodium (PROTONIX VIAL for IV PUSH) 40 mg DAILYAC IVP Last administered on 02/23/19at 08:59; Start 02/22/19 at 07:30; Stop 02/23/19 at 15:10 ; Status DC Albuterol Sulfate (Ventolin Neb Soln) 2.5 mg Q4HRS NEB Last administered on 10/04at 07:16; Start 02/22/19 at 04:00 Nicotine (Nicoderm Cq 21mg) 1 patch PRN DAILY PRN TD SMOKING CESSATION; Start 02/22/19 at 08:30 Sodium Monofluorophosphate (Fleet Adult) 133 ml 1X ONCE OR Last administered on 02/22/19at 12:12; Start 02/22/19 at 11:00; Stop 02/22/19 at 11:01; Status DC Labetalol HCl (Normodyne Iv Push) 20 mg PRN Q2HR PRN IVP HYPERTENSION, SEE COMMENTS Last administered on 02/24/19at 03:26; Start 02/22/19 at 15:00 Multi-Ingredient Ointment (Analgesic [place]) 1 tomy PRN TID PRN TP MUSCLE PAIN Last administered on 02/22/19 18:27; Start 02/22/19 at 18:30 Polyethylene Glycol (miraLAX PACKET) 17 gm DAILY PO Last administered on 08:22; Start 02/23/19 at 16:00 Acetaminophen (Tylenol) 650 mg PRN Q6HRS PRN PO PAIN Last administered on 20:21; Start 02/23/19 at 15:15 Alprazolam (Xanax) 0.25 mg PRN Q8HRS PRN PO ANXIETY / AGITATION; Start at 15:15 Amlodipine Besylate (Norvasc) 10 mg DAILY PO Last administered on 02/24/19 08: 22; Start 02/23/19 at 16:00 Duloxetine HCl (Cymbalta) 60 mg DAILY PO Last administered on 02/24/19 08:22; Start 02/23/19 at 16:00 Metoprolol Succinate (Toprol Xl) 25 mg DAILY PO Last administered on 02/24/19 08:23; Start 02/23/19 at 16:00 Ascorbic Acid (Vitamin C) 500 mg DAILY PO Last administered on 02/24/19 08:22 ; Start 02/23/19 at 16:00 Ferrous Sulfate (Feosol) 325 mg DAILYWBKFT PO Last administered on 02/24/19 08 :21; Start 02/23/19 at 16:00 Lactobacillus Rhamnosus (Culturelle) 2 cap DAILY PO Last administered on 08:21; Start 02/23/19 at 09:00 Losartan Potassium (Cozaar) 100 mg DAILY PO Last administered on 02/24/19 08: 23; Start 02/23/19 at 16:00 Memantine (Namenda) 10 mg BID PO Last administered on 02/24/19 08:21; Start at 21:00 Metformin HCl (Glucophage Xr) 500 mg DAILYWBKFT PO Last administered on 08:23; Start 02/24/19 at 08:00 Ropinirole HCl (Requip) 3 mg QHS PO Last administered on 02/23/19at 20:20; Start 02/23/19 at 21:00 Spironolactone (Aldactone) 25 mg DAILY PO Last administered on 02/24/19at 08:21 ; Start 02/23/19 at 16:00 Pantoprazole Sodium (Protonix) 40 mg DAILYAC PO Last administered on 02/24/19at 08:22; Start 02/24/19 at 07:30 Insulin Human Lispro (HumaLOG) 0-7 UNITS TIDWMEALS SQ ; Start 02/24/19 at 12:00 ; Status UNV Dextrose (Dextrose 50%-Water Syringe) 12.5 gm PRN Q15MIN PRN IV SEE COMMENTS; Start 02/24/19 at 09:00; Status UNV Active Scripts Active Duoneb 0.5-3(2.5) Mg/3 Ml (Albuterol/Ipratropium) 3 Ml Ampul.neb 3 Ml NEB BID Alprazolam 0.25 Mg Tablet 0.25 Mg PO PRN Q8HRS PRN Cymbalta (Duloxetine Hcl) 30 Mg Capsule.dr 60 Mg PO DAILY Vitamin C (Ascorbate Calcium) 500 Mg Tablet 500 Mg PO DAILY 30 Days Slow Release Iron (Ferrous Sulfate) 250 Mg Tablet.er 250 Mg PO DAILY 30 Days Protonix (Pantoprazole Sodium) 40 Mg Granpkt.dr 40 Mg PO DAILY 30 Days Reported [facility] Health Capsule (L Gasseri/B Bifidum/B Longum) 1 Each Capsule 2 Each PO DAILY Amlodipine Besylate 10 Mg Tablet 10 Mg PO DAILY Metoprolol Succinate ( Xl ) (Metoprolol Succinate) 25 Mg Tab.er.24h 25 Mg PO DAILY Anusol-Hc (Hydrocortisone Acetate) 25 Mg Supp.rect 1 Supp RC BID Analpram Hc 2.5% Cream (Hydrocortisone/Pramoxine) 30 Gm Cream.appl 1 Tomy RC PRN Q6HRS PRN Tylenol (Acetaminophen) 325 Mg Tablet 650 Mg PO PRN Q6HRS PRN Metformin Hcl Er (Metformin Hcl) 500 Mg Tab.er.24h 1 Tab PO DAILY Namenda (Memantine Hcl) 10 Mg Tablet 1 Tab PO BID Losartan Potassium 100 Mg Tablet 100 Mg PO DAILY Spironolactone 25 Mg Tablet 1 Tab PO DAILY Ventolin Hfa Inhaler (Albuterol Sulfate) 18 Gm Hfa.aer.ad 2 Puff INH Q4HRS Requip (Ropinirole Hcl) 1 Mg Tablet 3 Mg PO HS Vitals/I & O Vital Sign - Last 24 Hours 02/23/19 02/23/19 02/23/19 02/23/19 11:00 11:11 15:00 16:24 Temp 98.0 98.6 98.0 98.6 Pulse 69 67 Resp 16 18 B/P (MAP) 143/63 (89) 139/81 (100) Pulse Ox 96 94 94 O2 Delivery Room Air Room Air Room Air Room Air 02/23/19 02/23/19 02/23/19 02/23/19 17:23 19:00 19:38 20:00 Temp 99.5 99.5 Pulse 67 73 Resp 18 B/P (MAP) 139/81 161/92 (115) Pulse Ox 92 100 O2 Delivery Room Air Room Air Room Air 02/23/19 02/23/19 02/23/19 02/24/19 20:20 23:00 23:04 03:00 Temp 98.1 98.5 98.1 98.5 Pulse 73 71 79 Resp 18 18 B/P (MAP) 161/92 159/86 (110) 167/92 (117) Pulse Ox 91 99 O2 Delivery Room Air Room Air Room Air 02/24/19 02/24/19 02/24/19 02/24/19 03:26 03:58 07:00 07:17 Temp 98.4 98.4 Pulse 79 75 Resp 20 B/P (MAP) 167/92 156/105 (122) Pulse Ox 92 94 O2 Delivery Room Air Room Air Room Air 02/24/19 02/24/19 02/24/19 08:22 08:23 08:23 Pulse 75 75 75 B/P (MAP) 156/105 156/105 156/105 Intake and Output 02/23/19 02/23/19 02/24/19 14:59 22:59 06:59 Intake Total 480 ml Output Total 600 ml Balance -600 ml 480 ml SON LAU MD Feb 24, 2019 10:55
[2019-02-24 11:00] VITALS: BP 164/101
[2019-02-24] MEDS ORDERED: POLYETHYLENE GLYCOL 3350 17 GM PACKET. PO PRN (11:00)
[2019-02-24] MEDS ORDERED: INSULIN LISPRO 300 UNITS/3 ML INSULN.PEN. SQ SCH (12:00)
[2019-02-24] MEDS: guaiFENesin DM 200MG/20MG 10 ML SYRUP PO PRN ×2 (13:23→19:20)
[2019-02-24 15:00] VITALS: BP 114/91
[2019-02-24] MEDS: BENZOCAINE/MENTHOL LOZENGE. PO PRN ×4 (15:44→23:43)
[2019-02-24 19:00] VITALS: BP 150/96
[2019-02-24] MEDS ORDERED: IPRATROPIUM BROMIDE 0.5 MG/2.5 ML NEBU. NEB SCH (20:00)
[2019-02-24] MEDS: IPRATRPIUM/ALBUTEROL 0.5/2.5MG 3 ML NEBU. NEB SCH (20:14)
[2019-02-24] MEDS: rOPINIRole 1 MG TABLET. PO SCH (21:12)
[2019-02-24] MEDS: ACETAMINOPHEN 325 MG TABLET. PO PRN (21:12)
[2019-02-24] MEDS: DOCUSATE SODIUM 100 MG CAPSULE. PO SCH (21:12)
[2019-02-24 23:00] VITALS: BP 166/97
--- NOTE | 2019-02-24 23:05 | NUR ---
Pt c/o SOB, O2 saturation checked and measured at 87%. Pt placed on 2L NC, O2 saturation now measured at 98%. Pt resting in bed, no distress noted, will continue to monitor.
[2019-02-24] MEDS: PHENOL ORAL SPRAY 177ML BOTTLE. PO PRN (23:43)
[2019-02-25 02:43] VITALS: BP 133/91
[2019-02-25] MEDS: guaiFENesin DM 200MG/20MG 10 ML SYRUP PO PRN ×2 (05:46→13:00)
[2019-02-25] MEDS: PANTOPRAZOLE 40 MG TABLET.DR. PO SCH (05:46)
[2019-02-25] MEDS: BENZOCAINE/MENTHOL LOZENGE. PO PRN ×2 (05:46→12:57)
[2019-02-25] MEDS: ACETAMINOPHEN 325 MG TABLET. PO PRN (05:46)
[2019-02-25 07:00] VITALS: BP 139/88
[2019-02-25] MEDS: IPRATRPIUM/ALBUTEROL 0.5/2.5MG 3 ML NEBU. NEB SCH ×2 (07:21→11:34)
[2019-02-25] MEDS: INSULIN LISPRO 300 UNITS/3 ML INSULN.PEN. SQ SCH ×2 (08:00→11:42)
[2019-02-25] MEDS: HYDROCORTISONE 1% TOPICAL CREAM 30GM TUBE. TP PRN (08:58)
[2019-02-25] MEDS: POLYETHYLENE GLYCOL 3350 17 GM PACKET. PO SCH (08:58)
[2019-02-25] MEDS: SPIRONOLACTONE 25 MG TABLET PO SCH (08:58)
[2019-02-25] MEDS: metFORMIN XR 500 MG TAB.ER.24H PO SCH (08:58)
[2019-02-25] MEDS: FERROUS SULFATE 325 MG TABLET. PO SCH (08:59)
[2019-02-25] MEDS: HYDROCORTISONE ACETATE 25 MG SUPP.RECT RC SCH (08:59)
[2019-02-25] MEDS: LOSARTAN POTASSIUM 50 MG TABLET. PO SCH (08:59)
[2019-02-25] MEDS: DOCUSATE SODIUM 100 MG CAPSULE. PO SCH (08:59)
[2019-02-25] MEDS: DULoxetine HCL 30 MG CAPSULE.DR PO SCH (08:59)
[2019-02-25] MEDS: amLODIPine BESYLATE 10 MG TABLET PO SCH (08:59)
[2019-02-25] MEDS: METOPROLOL SUCC 24HR ER 25 MG TAB.ER.24H. PO SCH (09:00)
[2019-02-25] MEDS: ASCORBIC ACID 500 MG TABLET PO SCH (09:00)
[2019-02-25] MEDS: MEMANTINE 10 MG TABLET. PO SCH (09:00)
[2019-02-25] MEDS: LACTOBACILLUS RHAMNOSUS GG 1 CAPSULE. PO SCH (09:08)
--- NOTE | 2019-02-25 09:16 | PDOC ---
SURGICAL PROGRESS NOTE Subjective tolerating diet no pain plans for dc today Vital Signs Vital Signs Date Time Temp Pulse Resp B/P (MAP) Pulse Ox O2 Delivery O2 Flow Rate FiO2 02/25/19 09:00 74 139/88 02/25/19 07:23 98 Nasal Cannula 2.0 02/25/19 07:00 97.7 16 97.7 I&O Intake and Output 02/25/19 07:00 Intake Total 240 ml Balance 240 ml Intake Oral 240 ml # Voids 3 General: Alert, Oriented X3, Cooperative, No acute distress Abdomen: Soft, No tenderness Labs Laboratory Tests Test 02/23/19 11:42 02/23/19 16:39 02/23/19 20:32 02/24/19 06:25 Glucose (Fingerstick) 132 mg/dL (70-99) 86 mg/dL (70-99) 111 mg/dL (70-99) Sodium Level 141 mmol/L (136-145) Potassium Level 3.3 mmol/L (3.5-5.1) Chloride Level 104 mmol/L (98-107) Carbon Dioxide Level 24 mmol/L (21-32) Anion Gap 13 (6-14) Blood Urea Nitrogen 8 mg/dL (7-20) Creatinine 0.8 mg/dL (0.6-1.0) Estimated GFR (Cockcroft-Gault) 84.6 Glucose Level 129 mg/dL (70-99) Calcium Level 9.3 mg/dL (8.5-10.1) Test 02/24/19 07:41 02/24/19 11:27 02/24/19 16:36 02/24/19 20:41 Glucose (Fingerstick) 138 mg/dL (70-99) 97 mg/dL (70-99) 99 mg/dL (70-99) 139 mg/dL (70-99) Test 02/25/19 07:45 Glucose (Fingerstick) 113 mg/dL (70-99) Laboratory Tests Test 02/24/19 11:27 02/24/19 16:36 02/24/19 20:41 02/25/19 07:45 Glucose (Fingerstick) 97 mg/dL (70-99) 99 mg/dL (70-99) 139 mg/dL (70-99) 113 mg/dL (70-99) Problem List Problems Medical Problems: (1) Small bowel obstruction Status: Acute Assessment/Plan improved home ABRAHAM WEBER APRN Feb 25, 2019 09:15
--- NOTE | 2019-02-25 09:20 | SNU/HH DC ---
DISCHARGE WITH HOME HEALTH DISCHARGE INFORMATION: Discharge Date: Feb 25, 2019 Final Diagnosis: Problems Medical Problems: (1) Small bowel obstruction Status: Acute Condition on Discharge: Stable CODE STATUS: Code Status: Full HOME HEALTH: Face to Face: I certify this patient is under my care and that I, or a nurse practitioner or physician's temporary administrative assistant working with me, had a face to face encounter that meets the physician face to face encounter requirements with this patient on []. Medical Complications: Falls, HTN RN For Eval/Treatment: Yes Physical Therapy For: Evalulation/Treatment Occupational Therapy For: Evaluation/Treatment Speech Language Pathology For: Evaluation/Treatment Home Health Aide For: Self-care MAIL SORTING SUPERVISOR For: Community Resources Pt Meets Homebound Status: Unsteady balance w/ amb, POST DISCHARGE ORDERS: Activity Instructions for Disc: Activity as tolerated Weight Bearing Status after Di: As tolerated DIET AFTER DISCHARGE: Regular Wound/Incision Care: No wound care needed CHECKS AFTER DISCHARGE: Checks after discharge: Check blood press - daily, Check blood sugar, ac/hs FOLLOW-UP: Follow up with: pcp 4 weeks DC TO SNF LABS: chem 12, cbc < 1 week TREATMENT/EQUIPMENT ORDERS: Adaptive Equipment Issued: None Discharge Respiratory Equipmen: Oxygen CERTIFICATION STATEMENT: Certification Statement: Certification Statement: Based on the above finding, I certify that this patient is confined to the home and needs intermittent half-way care, physical therapy and/or speech therapy, or continues to need occupational therapy.~ This patient is under my care, and I have initiated the establishment of the plan of care.~ This patient will be followed by myself or a community physician who will periodically review the plan of care. Home Meds Active Scripts Ipratropium/Albuterol Sulfate (DUONEB 0.5-3(2.5) MG/3 ML) 3 Ml Ampul.neb, 3 ML NEB BID for COPD, #60 EACH Prov:RADAMES MÉNDEZ MD 01/15/19 Alprazolam (ALPRAZOLAM) 0.25 Mg Tablet, 0.25 MG PO PRN Q8HRS PRN for ANXIETY / AGITATION, #30 TAB Prov:RADAMES MÉNDEZ MD 01/15/19 Duloxetine Hcl (CYMBALTA) 30 Mg Capsule.dr, 60 MG PO DAILY for pain, mood, #30 CAP Prov:RADAMES MÉNDEZ MD 01/15/19 Ascorbate Calcium (VITAMIN C) 500 Mg Tablet, 500 MG PO DAILY for with iron for 30 Days, #30 TAB 2 Refills Prov:FLORY NEAL MD 11/22/18 Ferrous Sulfate (Slow Release Iron) 250 Mg Tablet.er, 250 MG PO DAILY for GI bleed for 30 Days, #30 TAB.SR 2 Refills Prov:FLORY NEAL MD 11/22/18 Pantoprazole Sodium (PROTONIX) 40 Mg Granpkt.dr, 40 MG PO DAILY for GI BLEEDING for 30 Days, #30 TAB 2 Refills Prov:FLORY NEAL MD 11/22/18 Reported Medications L Gasseri/B Bifidum/B Longum (GOVEA COLON HEALTH CAPSULE) 1 Each Capsule, 2 EACH PO DAILY for Colon health, CAP 02/22/19 Amlodipine Besylate (AMLODIPINE BESYLATE) 10 Mg Tablet, 10 MG PO DAILY for HTN, TAB 02/22/19 Metoprolol Succinate (METOPROLOL SUCCINATE ( XL )) 25 Mg Tab.er.24h, 25 MG PO DAILY for FOR HYPERTENSION, #30 TAB 0 Refills 02/06/19 Hydrocortisone Acetate (ANUSOL-HC) 25 Mg Supp.rect, 1 SUPP RC BID for hemorrhoids, #14 SUPP 02/06/19 Hydrocortisone/Pramoxine (ANALPRAM HC 2.5% CREAM) 30 Gm Cream.appl, 1 BASIM RC PRN Q6HRS PRN for hemorrhoids, #30 GM 2 Refills 02/06/19 Acetaminophen (TYLENOL) 325 Mg Tablet, 650 MG PO PRN Q6HRS PRN for PAIN, TAB 02/06/19 Metformin Hcl (METFORMIN HCL ER) 500 Mg Tab.er.24h, 1 TAB PO DAILY, #90 TAB 3 Refills 11/12/16 Memantine Hcl (NAMENDA) 10 Mg Tablet, 1 TAB PO BID, #180 TAB 1 Refill 11/12/16 Losartan Potassium (LOSARTAN POTASSIUM) 100 Mg Tablet, 100 MG PO DAILY, TAB 11/12/16 Spironolactone (SPIRONOLACTONE) 25 Mg Tablet, 1 TAB PO DAILY, #90 TAB 1 Refill 11/12/16 Albuterol Sulfate (VENTOLIN HFA INHALER) 18 Gm Hfa.aer.ad, 2 PUFF INH Q4HRS for FOR ASTHMA, INHALER 0 Refills 11/11/16 Ropinirole Hcl (REQUIP) 1 Mg Tablet, 3 MG PO HS for restless leg , TAB 01/27/16 Discontinued Reported Medications Polyethylene Glycol 3350 (GLYCOLAX) 119 Gm Powder, 17 GM PO UD PRN for daily, # 527 GM 02/06/19 SON LAU MD Feb 25, 2019 09:20
--- NOTE | 2019-02-25 10:43 | NUR ---
LATANYA following. Discussed with RN, pt ready to discharge home today with Chelsi BINGHAM. Chelsi Vincent RN following.
[2019-02-25 11:00] VITALS: BP 98/75
--- NOTE | 2019-02-25 12:13 | PDOC3 ---
Discharge Summary Visit Information Date of Admission: Feb 21, 2019 Date of Discharge: Feb 25, 2019 Admitting Diagnosis Comment: Ileus, SBO Constipation/obstipation COPD-chronic stable hx GI bleed History tension headache Final Diagnosis Problems Medical Problems: (1) Small bowel obstruction Status: Acute Brief Hospital Course Allergies Allergies Coded Allergies Type Severity Reaction Last Updated Verified Penicillins Allergy Intermediate 12/16/18 Yes Vital Signs Vital Signs Date Time Temp Pulse Resp B/P (MAP) Pulse Ox O2 Delivery O2 Flow Rate FiO2 02/25/19 11:00 98.1 82 16 98/75 (83) 98 Nasal Cannula 3.0 98.1 Lab Results Laboratory Tests Test 02/23/19 16:39 02/23/19 20:32 02/24/19 06:25 02/24/19 07:41 Glucose (Fingerstick) 86 mg/dL (70-99) 111 mg/dL (70-99) 138 mg/dL (70-99) Sodium Level 141 mmol/L (136-145) Potassium Level 3.3 mmol/L (3.5-5.1) Chloride Level 104 mmol/L (98-107) Carbon Dioxide Level 24 mmol/L (21-32) Anion Gap 13 (6-14) Blood Urea Nitrogen 8 mg/dL (7-20) Creatinine 0.8 mg/dL (0.6-1.0) Estimated GFR (Cockcroft-Gault) 84.6 Glucose Level 129 mg/dL (70-99) Calcium Level 9.3 mg/dL (8.5-10.1) Test 02/24/19 11:27 02/24/19 16:36 02/24/19 20:41 02/25/19 07:45 Glucose (Fingerstick) 97 mg/dL (70-99) 99 mg/dL (70-99) 139 mg/dL (70-99) 113 mg/dL (70-99) Test 02/25/19 11:33 Glucose (Fingerstick) 111 mg/dL (70-99) Laboratory Tests Test 02/24/19 16:36 02/24/19 20:41 02/25/19 07:45 02/25/19 11:33 Glucose (Fingerstick) 99 mg/dL (70-99) 139 mg/dL (70-99) 113 mg/dL (70-99) 111 mg/dL (70-99) Brief Hospital Course Ms. Mccray is a 73 old [place] Faro[place] female who came [facility], comes in because of ileus SBO. Her PMHX history is remarkable because 2 prior visits ago she stayed here for 40 days because of ileus, bowel obstruction, tpn etc. She comes in again needing NG tube. But this time she only needed it for 24-48 hrs. Tolerating a liquid diet. Course was remarkable for obstipation but better after Fleet enema. Will go home tolerating a diet with no change in meds. A little bit hoarse post NG tube with have advised [id number] Cepastat consults performed GI GS Procedures performed NG tube decompression DispO; [facility] Discharge Information Condition at Discharge: Improved, Stable Disposition/Orders: D/C to Home w/ HH Scheduled Albuterol Sulfate (Ventolin Hfa Inhaler) 18 Gm Hfa.aer.ad, 2 PUFF INH Q4HRS for FOR ASTHMA, Ref 0 (Reported) Entered as Reported by: CHARLENE DEL CASTILLO on 11/11/16 1711 Last Taken: UNKNOWN on Unknown Date & Time Last Action: Converted on 0020 by CHIVO VELEZ RN Amlodipine Besylate (Amlodipine Besylate) 10 Mg Tablet, 10 MG PO DAILY for HTN, (Reported) Entered as Reported by: TASH GARCIA on 02/22/19 1007 Last Action: Continued on 02/23/191506 by BETH RAIN RN Ascorbate Calcium (Vitamin C) 500 Mg Tablet, 500 MG PO DAILY for with iron for 30 Days, #30 Ref 2 Prescribed by: FLORY NEAL MD on 11/22/18 1613 Last Action: Converted on 02/23/19 150 by BETH RAIN RN Duloxetine Hcl (Cymbalta) 30 Mg Capsule.dr, 60 MG PO DAILY for pain, mood, #30 Prescribed by: RADAMES MÉNDEZ on 01/15/19 1006 Last Action: Continued on 02/23/19 150 by BETH RAIN RN Ferrous Sulfate (Slow Release Iron) 250 Mg Tablet.er, 250 MG PO DAILY for GI bleed for 30 Days, #30 Ref 2 Prescribed by: FLORY NEAL MD on 11/22/18 1613 Last Action: Converted on 02/23/191506 by BETH RAIN RN Hydrocortisone Acetate (Anusol-Hc) 25 Mg Supp.rect, 1 SUPP RC BID for hemorrhoids, #14 (Reported) Entered as Reported by: Thor Zepeda on 02/06/19314 Last Taken: UNKNOWN on Unknown Date & Time Last Action: Reviewed on 1007 by TASH GARCIA Ipratropium/Albuterol Sulfate (Duoneb 0.5-3(2.5) Mg/3 Ml) 3 Ml Ampul.neb, 3 ML NEB BID for COPD, #60 Prescribed by: RADAMES MÉNDEZ on 01/15/19 1006 Last Taken: UNKNOWN on Unknown Date & Time Last Action: Continued on 002 by CHIVO VELEZ RN L Gasseri/B Bifidum/B Longum (Gold' Colon Health Capsule) 1 Each Capsule, 2 EACH PO DAILY for Colon health, (Reported) Entered as Reported by: TASH GARCIA on 02/22/19 151 Last Action: Converted on 02/23/191506 by BETH RAIN RN Losartan Potassium (Losartan Potassium) 100 Mg Tablet, 100 MG PO DAILY, ( Reported) Entered as Reported by: CHARLENE DEL CASTILLO on 11/12/161834 Last Action: Converted on 02/23/191506 by BETH RAIN RN Memantine Hcl (Namenda) 10 Mg Tablet, 1 TAB PO BID, #180 Ref 1 (Reported) Entered as Reported by: CHARLENE DEL CASTILLO on 11/12/161834 Last Action: Converted on 02/23/191506 by BETH RAIN RN Metformin Hcl (Metformin Hcl Er) 500 Mg Tab.er.24h, 1 TAB PO DAILY, #90 Ref 3 ( Reported) Entered as Reported by: CHARLENE DEL CASTILLO on 11/12/161834 Last Action: Converted on 02/23/191506 by BETH RAIN RN Metoprolol Succinate (Metoprolol Succinate ( Xl )) 25 Mg Tab.er.24h, 25 MG PO DAILY for FOR HYPERTENSION, #30 Ref 0 (Reported) Entered as Reported by: Thor Zepeda on 02/06/19314 Last Action: Continued on 02/23/191506 by BETH RAIN RN Pantoprazole Sodium (Protonix) 40 Mg Granpkt.dr, 40 MG PO DAILY for GI BLEEDING for 30 Days, #30 Ref 2 Prescribed by: FLORY NEAL MD on 11/22/18 1613 Last Action: Reviewed on 02/22/19 1007 by TASH GARCIA Ropinirole Hcl (Requip) 1 Mg Tablet, 3 MG PO HS for restless leg , (Reported) Entered as Reported by: PIAT GARG on 01/27/16 0455 Last Action: Converted on 02/23/19 150 by BETH RAIN RN Spironolactone (Spironolactone) 25 Mg Tablet, 1 TAB PO DAILY, #90 Ref 1 ( Reported) Entered as Reported by: CHARLENE DEL CASTILLO on 11/12/16 1835 Last Action: Converted on 02/23/19 150 by BETH RAIN RN Scheduled PRN Acetaminophen (Tylenol) 325 Mg Tablet, 650 MG PO PRN Q6HRS PRN for PAIN, ( Reported) Entered as Reported by: Thor Zepeda on 02/06/195 Last Action: Continued on 02/23/19 150 by BETH RAIN RN Alprazolam (Alprazolam) 0.25 Mg Tablet, 0.25 MG PO PRN Q8HRS PRN for ANXIETY / AGITATION, #30 Prescribed by: RADAMES MÉNDEZ on 01/15/19 1006 Last Action: Continued on 02/23/191506 by BETH RAIN RN Hydrocortisone/Pramoxine (Analpram Hc 2.5% Cream) 30 Gm Cream.appl, 1 BASIM RC PRN Q6HRS PRN for hemorrhoids, #30 Ref 2 (Reported) Entered as Reported by: Thor Zepeda on 02/06/19314 Last Taken: UNKNOWN on Unknown Date & Time Last Action: Reviewed on 1007 by TASH GARCIA Discontinued Medications Polyethylene Glycol 3350 (Glycolax) 119 Gm Powder, 17 GM PO UD PRN for daily, # 527 (Reported) Entered as Reported by: Thor Zepeda on 02/06/19314 Last Action: Discontinued on 02/22/19 1007 by SON SHEIKH MD Feb 25, 2019 12:12
--- NOTE | 2019-02-25 14:30 | NUR ---
Discharge: Pt DC to home with home health per private car accompanied by son. No complaints of pain. Discussed DC instructions, constipation management, and follow up. IV DC'ed no complications. Left with belongings, no concerns at this time.
== END 2019-02-25 14:30 | disposition home health service (06) | DRG 388 ==
LOC: ER 17:07 → 4 NORTH 20:48
PROVIDERS: ADMIT Internal Medicine; ATTEND Internal Medicine
PROC: 0D9670Z Drainage of Stomach with Drainage Device, Via Natural or Artificial Opening (ICD-10-PCS; principal; 2019-02-21)
DX: K56.609 Unspecified intestinal obstruction, unspecified as to partial versus complete obstruction (principal); N17.0 Acute kidney failure with tubular necrosis; I10 Essential (primary) hypertension; E11.9 Type 2 diabetes mellitus without complications; E78.00 Pure hypercholesterolemia, unspecified; K56.7 Ileus, unspecified; J44.9 Chronic obstructive pulmonary disease, unspecified; K59.00 Constipation, unspecified; E78.5 Hyperlipidemia, unspecified; F41.9 Anxiety disorder, unspecified; G25.81 Restless legs syndrome; K64.9 Unspecified hemorrhoids; Z79.84 Long term (current) use of oral hypoglycemic drugs; Z79.899 Other long term (current) drug therapy; Z82.49 Family history of ischemic heart disease and other diseases of the circulatory system; Z90.49 Acquired absence of other specified parts of digestive tract
CPT/HCPCS: 36415; 74018; 74022; 74177; 80048; 80053; 81001; 82962; 83690; 85025; 94640; 94760; 96360; C9113; J1815; J2405; J3010; J3490; J7030; J7613; J7620; Q9967; 97110; 97116; 97535; 99285-25

== ENCOUNTER 2019-03-05 09:39 | Inpatient (IN) | payer MEDICARE ==
[~2019-03-05] VITALS: Ht 170.2 cm; Wt 63.5 kg
[~2019-03-05 09:39] MED LIST changes: +L GA1CAP2 PO
--- NOTE | 2019-03-05 10:18 | PHYS DOC ---
Past Medical History Past Medical History: Anxiety, COPD, Diabetes-Type II, Diverticulitis, GI Bleed , High Cholesterol, Hypertension, Other Additional Past Medical Histor: "MEMORY LOSS" Past Surgical History: Tonsillectomy, Other Additional Past Surgical Histo: BACK SURGERY X2,POLYPS REMOVED FROM THROAT, bowel resection x 2 Alcohol Use: Occasionally Drug Use: None Adult General Chief Complaint Chief Complaint: DIARRHEA HPI HPI Patient is a 73 year old female who presents to the ED today complaining of non -bloody diarrhea for one week. Patient states she was admitted to the hospital on Thursday last week for constipation, she states she underwent a bowel prep including enemas, she states her bowels started moving and they sent her home. She states since then she's had diarrhea for one week. Daughter states they have tried Imodium with no relief. Patient has history of diabetes type 2, hypertension, constipation, bowel resection 2 months ago which resulted to small bowel obstruction. Patient denies any abdominal pain. Denies any fever nausea vomiting. Denies any urgency frequency or dysuria. Patient denies being on any antibiotics. Review of Systems Review of Systems Constitutional: Denies fever or chills [] Eyes: Denies change in visual acuity, redness, or eye pain [] HENT: Denies nasal congestion or sore throat [] Respiratory: Denies cough or shortness of breath [] Cardiovascular: No additional information not addressed in HPI [] GI: Reports diarrhea. Denies abdominal pain, nausea, vomiting, bloody stools : Denies dysuria or hematuria [] Musculoskeletal: Denies back pain or joint pain [] Integument: Denies rash or skin lesions [] Neurologic: Denies headache, focal weakness or sensory changes [] All other systems were reviewed and found to be within normal limits, except as documented in this note. Current Medications Current Medications Current Medications Medications (Trade) Dose Ordered Sig/Buffy Start Time Stop Time Status Last Admin Dose Admin Info (CONTRAST GIVEN -- Rx MONITORING) 1 each PRN DAILY PRN 03/05/19 11:15 03/07/19 11:14 Iohexol (Omnipaque 300 Mg/ml) 75 ml 1X ONCE 03/05/19 11:00 03/05/19 11:02 DC Allergies Allergies Allergies Coded Allergies Type Severity Reaction Last Updated Verified Penicillins Allergy Intermediate 12/16/18 Yes Physical Exam Physical Exam Constitutional: Well developed, well nourished, no acute distress, non-toxic appearance. [] HENT: Normocephalic, atraumatic, bilateral external ears normal, oropharynx moist, no oral exudates, nose normal. [] Eyes: PERRLA, EOMI, conjunctiva normal, no discharge. [] Neck: Normal range of motion, no tenderness, supple, no stridor. [] Cardiovascular:Heart rate regular rhythm, no murmur [] Lungs & Thorax: Bilateral breath sounds clear to auscultation [] Abdomen: Old healed surgical incision noted midline abdomen. Bowel sounds normal , soft, no tenderness, no masses, no pulsatile masses. [] Skin: Warm, dry, no erythema, no rash. [] Back: No tenderness, no CVA tenderness. [] Extremities: No tenderness, no cyanosis, no clubbing, ROM intact, no edema. [] Neurologic: Alert and oriented X 3, normal motor function, normal sensory function, no focal deficits noted. [] Psychologic: Affect normal, judgement normal, mood normal. [] Current Patient Data Vital Signs Vital Signs Date Time Temp Pulse Resp B/P (MAP) Pulse Ox O2 Delivery O2 Flow Rate FiO2 03/05/19 11:47 68 165/90 (115) 96 Room Air 03/05/19 09:43 98.0 16 98.0 Lab Values Laboratory Tests Test 03/05/19 09:45 03/05/19 10:00 03/05/19 10:19 03/05/19 10:40 White Blood Count 8.8 x10^3/uL (4.0-11.0) Red Blood Count 4.67 x10^6/uL (3.50-5.40) Hemoglobin 11.7 g/dL (12.0-15.5) L Hematocrit 37.0 % (36.0-47.0) Mean Corpuscular Volume 79 fL (79-100) Mean Corpuscular Hemoglobin 25 pg (25-35) Mean Corpuscular Hemoglobin Concent 32 g/dL (31-37) Red Cell Distribution Width 25.8 % (11.5-14.5) H Platelet Count 292 x10^3/uL (140-400) Neutrophils (%) (Auto) 63 % (31-73) Lymphocytes (%) (Auto) 28 % (24-48) Monocytes (%) (Auto) 6 % (0-9) Eosinophils (%) (Auto) 2 % (0-3) Basophils (%) (Auto) 0 % (0-3) Neutrophils # (Auto) 5.5 x10^3uL (1.8-7.7) Lymphocytes # (Auto) 2.4 x10^3/uL (1.0-4.8) Monocytes # (Auto) 0.6 x10^3/uL (0.0-1.1) Eosinophils # (Auto) 0.2 x10^3/uL (0.0-0.7) Basophils # (Auto) 0.0 x10^3/uL (0.0-0.2) Platelet Estimate Adequate (ADEQUATE) Anisocytosis Mod Prothrombin Time 14.5 SEC (11.7-14.0) H Prothrombin Time INR 1.2 (0.8-1.1) H PTT 31 SEC (24-38) Sodium Level 137 mmol/L (136-145) Potassium Level 4.0 mmol/L (3.5-5.1) Chloride Level 104 mmol/L (98-107) Carbon Dioxide Level 25 mmol/L (21-32) Anion Gap 8 (6-14) Blood Urea Nitrogen 14 mg/dL (7-20) Creatinine 0.9 mg/dL (0.6-1.0) Estimated GFR (Cockcroft-Gault) 73.9 BUN/Creatinine Ratio 16 (6-20) Glucose Level 126 mg/dL (70-99) H Calcium Level 9.5 mg/dL (8.5-10.1) Total Bilirubin 0.4 mg/dL (0.2-1.0) Aspartate Amino Transferase (AST) 18 U/L (15-37) Alanine Aminotransferase (ALT) 16 U/L (14-59) Alkaline Phosphatase 78 U/L (46-116) Total Protein 7.7 g/dL (6.4-8.2) Albumin 3.5 g/dL (3.4-5.0) Albumin/Globulin Ratio 0.8 (1.0-1.7) L Lipase 139 U/L (73-393) Test 03/05/19 11:55 Urine Collection Type Unknown Urine Color Yellow Urine Clarity Clear Urine pH 5.5 Urine Specific [place] >=1.030 Urine Protein Negative mg/dL (NEG-TRACE) Urine Glucose (UA) Negative mg/dL (NEG) Urine Ketones (Stick) Negative mg/dL (NEG) Urine Blood Negative (NEG) Urine Nitrite Negative (NEG) Urine Bilirubin Negative (NEG) Urine Urobilinogen Dipstick 0.2 mg/dL (0.2 mg/dL) Urine Leukocyte Esterase Small (NEG) Urine RBC 0 /HPF (0-2) Urine WBC Rare /HPF (0-4) Urine Squamous Epithelial Cells Mod /LPF Urine Bacteria 0 /HPF (0-FEW) Laboratory Tests 03/05/19 09:45 Laboratory Tests 03/05/19 10:40 EKG EKG [] Radiology/Procedures Radiology/Procedures []PROCEDURE: CT ABD PELV W/ IV CONTRST ONLY Exam performed: CT abdomen and pelvis with contrast HISTORY: History of bowel resection for constipation GI bleed DATE OF SERVICE: 03/05/2019. COMPARISON: None available TECHNIQUE: Contiguous helical acquisitions are obtained through the abdomen and pelvis during intravenous administration of 75 cc of Omnipaque 300.Sagittal and coronal reformatted images are obtained and reviewed. FINDINGS: Minimal right basilar atelectasis seen. The visualized heart is normal. The liver, spleen and pancreas appear normal. The gallbladder is distended. Both adrenal glands and bilateral kidneys are normal in size with symmetric excretion of contrast via both kidneys. There is perhaps a small 6 mm calculus in the right renal pelvis. There is no hydronephrosis or nephrolithiasis. The aorta is normal in caliber demonstrating mild atheromatous calcification. Mild to moderate dilation of fluid-filled small bowel loops seen. No definite transition seen. Anastomosis seen in the right lower quadrant. The urinary bladder is compressed. Hysterectomy. No adnexal masses seen. IMPRESSION: Mild to moderate dilation of the small bowel loops without a definite transition. Ileus pattern is suspected. Early and/or developing of acute obstruction not excluded. Clinical and radiographic follow-up recommended. PQRS Compliance Statement: One or more of the following individualized dose reduction techniques were utilized for this examination: 1. Automated exposure control 2. Adjustment of the mA and/or kV according to patient size 3. Use of iterative reconstruction technique Electronically signed by: Jessica Gasca MD (03/05/2019 11:56 AM) [facility] DICTATED and SIGNED BY: JESSICA GASCA MD DATE: 03/05/19 9625 Course & Med Decision Making Course & Med Decision Making Pertinent Labs and Imaging studies reviewed. (See chart for details) This is a 73-year-old female patient with history of constipation presenting to the ED today complaining of diarrhea for one week. Patient was admitted on 2018 and discharged Thursday last week for constipation underwent bowel prep including enema, had BMs was sent home. Has had diarrhea since she was d/c. CBC with a normal WBC, CMP would not acute findings, CT of the abdomen and pelvic was noted for possible illeus or SBO. 12:[address] Balderrama, he requested we admit patient and they will monitor patient her. No NG tube considering patient has no abdominal pain nausea vomiting. Spoke with Dr. Griffin who accepted patient for admission Dragon Disclaimer Dragon Disclaimer This electronic medical record was generated, in whole or in part, using a voice recognition dictation system. Departure Departure Impression: Primary Impression: Diarrhea Additional Impression: Ileus Disposition: ADMITTED INPATIENT Condition: STABLE Referrals: MINI TREJO (PCP) Problem Qualifiers Primary Impression: Diarrhea Diarrhea type: unspecified type Qualified Codes: R19.7 - Diarrhea, unspecified LALY AYALA [employer] BUR[employer] SERVICER AND INSTALLER Mar 05, 2019 10:18
[2019-03-05 10:24] LABS: BASO % 0 % (0-3); EOS # 0.2 x10^3/uL (0.0-0.7); EOS % 2 % (0-3); HEMOGLOBIN 11.7 g/dL (12.0-15.5); LYMPH # 2.4 x10^3/uL (1.0-4.8); LYMPH % 28 % (24-48); MEAN CORPUSCULAR HEMOGLOBIN 25 pg (25-35); MEAN CORPUSCULAR HGB CONC 32 g/dL (31-37); MEAN CORPUSCULAR VOLUME 79 fL (79-100); MONO # 0.6 x10^3/uL (0.0-1.1); MONO % 6 % (0-9); NEUT # 5.5 x10^3uL (1.8-7.7); NEUT % 63 % (31-73); PLATELET COUNT 292 x10^3/uL (140-400); RED BLOOD COUNT 4.67 x10^6/uL (3.50-5.40); RED CELL DISTRIBUTION WIDTH 25.8 % (11.5-14.5); WHITE BLOOD COUNT 8.8 x10^3/uL (4.0-11.0)
[2019-03-05 10:36] LABS: PROTHROMBIN TIME PATIENT 14.5 SEC (11.7-14.0)
[2019-03-05 10:57] LABS: CALCIUM 9.5 mg/dL (8.5-10.1); CREATININE 0.9 mg/dL (0.6-1.0); GFR 73.9
[2019-03-05] MEDS ORDERED: IOHEXOL 300 MG/ML 100ML VIAL. IV ONE (11:00)
[2019-03-05 11:03] LABS: ALBUMIN 3.5 g/dL (3.4-5.0); ALBUMIN/GLOBULIN RATIO 0.8 (1.0-1.7); TOTAL BILIRUBIN 0.4 mg/dL (0.2-1.0); TOTAL PROTEIN 7.7 g/dL (6.4-8.2)
[2019-03-05 11:09] LABS: PLT ESTIMATE ADEQUATE (ADEQUATE)
[2019-03-05 11:10] LABS: ANISOCYTOSIS MOD
[2019-03-05] MEDS ORDERED: CONTRAST GIVEN. MC PRN (11:15)
--- NOTE | 2019-03-05 11:59 | RAD ---
Exam performed: CT abdomen and pelvis with contrast HISTORY: History of bowel resection for constipation GI bleed DATE OF SERVICE: 03/05/2019. COMPARISON: None available TECHNIQUE: Contiguous helical acquisitions are obtained through the abdomen and pelvis during intravenous administration of 75 cc of Omnipaque 300.Sagittal and coronal reformatted images are obtained and reviewed. FINDINGS: Minimal right basilar atelectasis seen. The visualized heart is normal. The liver, spleen and pancreas appear normal. The gallbladder is distended. Both adrenal glands and bilateral kidneys are normal in size with symmetric excretion of contrast via both kidneys. There is perhaps a small 6 mm calculus in the right renal pelvis. There is no hydronephrosis or nephrolithiasis. The aorta is normal in caliber demonstrating mild atheromatous calcification. Mild to moderate dilation of fluid-filled small bowel loops seen. No definite transition seen. Anastomosis seen in the right lower quadrant. The urinary bladder is compressed. Hysterectomy. No adnexal masses seen. IMPRESSION: Mild to moderate dilation of the small bowel loops without a definite transition. Ileus pattern is suspected. Early and/or developing of acute obstruction not excluded. Clinical and radiographic follow-up recommended. PQRS Compliance Statement: One or more of the following individualized dose reduction techniques were utilized for this examination: 1. Automated exposure control 2. Adjustment of the mA and/or kV according to patient size 3. Use of iterative reconstruction technique Electronically signed by: Jessica Gasca MD (03/05/2019 11:56 AM) [facility]
[2019-03-05 12:08] LABS: BILIRUBIN,URINE NEGATIVE (NEG); CLARITY,URINE CLEAR; COLOR,URINE YELLOW; NITRITE,URINE NEGATIVE (NEG); PH,URINE 5.5; PROTEIN,URINE NEGATIVE (NEG-TRACE); UROBILINOGEN,URINE 0.2 mg/dL (0.2 mg/dL)
[2019-03-05 12:21] LABS: BACTERIA,URINE 0 /HPF (0-FEW); RBC,URINE 0 /HPF (0-2); SQUAMOUS EPITHELIAL CELL,UR MOD /LPF; WBC,URINE RARE /HPF (0-4)
--- NOTE | 2019-03-05 12:54 | PDOC1 ---
History and Physical Date of Admission Date of Admission DATE: 03/05/19 TIME: 12:51 Identification/Chief Complaint Chief Complaint Diarrhea, abdominal pain Source Source: Patient History of Present Illness History of Present Illness 73 year old F w/ PMHx COPD, DM2, HTN, and recent right hemicolectomy with a revision who presents to the ED today complaining of non-bloody diarrhea for one week. Patient states she was admitted to the hospital on Thursday last week for constipation, she states she underwent a bowel prep including enemas, she states her bowels started moving and they sent her home. She states since then she's had diarrhea for one week. Daughter states they have tried Imodium with no relief. Patient denies any abdominal pain. Denies any fever nausea vomiting. Denies any urgency frequency or dysuria. Patient denies being on any antibiotics. Previously seen in late November 2018 for GI bleed. The patient had workup done including colonoscopy and found to have bleeding ulcer in the colon. The patient underwent a right hemicolectomy on 12/17/2018. She returned to OR 11/29 for small bowel obstruction at previous anastomotic site with exploratory laparotomy with extended right hemicolectomy and primary anastomosis. Required TPN for a short time. Hospitalized the entire month of December, discharged to [facility] 6 weeks ago, readmitted twice since, has HH with Chelsi [facility] On CT abdomen no obstruction noted, but dilated small bowel loops notable. Past Medical History Cardiovascular: HTN Pulmonary: Asthma, Bronchitis, COPD Past Surgical History Past Surgical History: Colectomy, Colon Resection Family History Family History: Heart Disease Family History: Parent Social History Smoke: No ALCOHOL: none Drugs: None Current Problem List Problem List Problems Medical Problems: (1) Diarrhea Status: Acute Current Medications Current Medications Current Medications Iohexol (Omnipaque 300 Mg/ml) 75 ml 1X ONCE IV ; Start 03/05/19 at 11:00; Stop 03/05/19 at 11:02; Status DC Info (CONTRAST GIVEN -- Rx MONITORING) 1 each PRN DAILY PRN MC SEE COMMENTS; Start 03/05/19 at 11:15; Stop 03/07/19 at 11:14 Active Scripts Active Duoneb 0.5-3(2.5) Mg/3 Ml (Albuterol/Ipratropium) 3 Ml Ampul.neb 3 Ml NEB BID Alprazolam 0.25 Mg Tablet 0.25 Mg PO PRN Q8HRS PRN Cymbalta (Duloxetine Hcl) 30 Mg Capsule.dr 60 Mg PO DAILY Vitamin C (Ascorbate Calcium) 500 Mg Tablet 500 Mg PO DAILY 30 Days Slow Release Iron (Ferrous Sulfate) 250 Mg Tablet.er 250 Mg PO DAILY 30 Days Protonix (Pantoprazole Sodium) 40 Mg Granpkt.dr 40 Mg PO DAILY 30 Days Reported Gold Promineo studios Capsule (L Gasseri/B Bifidum/B Longum) 1 Each Capsule 2 Each PO DAILY Amlodipine Besylate 10 Mg Tablet 10 Mg PO DAILY Metoprolol Succinate ( Xl ) (Metoprolol Succinate) 25 Mg Tab.er.24h 25 Mg PO DAILY Anusol-Hc (Hydrocortisone Acetate) 25 Mg Supp.rect 1 Supp RC BID Analpram Hc 2.5% Cream (Hydrocortisone/Pramoxine) 30 Gm Cream.appl 1 Tomy RC PRN Q6HRS PRN Tylenol (Acetaminophen) 325 Mg Tablet 650 Mg PO PRN Q6HRS PRN Metformin Hcl Er (Metformin Hcl) 500 Mg Tab.er.24h 1 Tab PO DAILY Namenda (Memantine Hcl) 10 Mg Tablet 1 Tab PO BID Losartan Potassium 100 Mg Tablet 100 Mg PO DAILY Spironolactone 25 Mg Tablet 1 Tab PO DAILY Ventolin Hfa Inhaler (Albuterol Sulfate) 18 Gm Hfa.aer.ad 2 Puff INH Q4HRS Requip (Ropinirole Hcl) 1 Mg Tablet 3 Mg PO HS Allergies Allergies: Coded Allergies: Penicillins (Verified Allergy, Intermediate, 12/16/18) ROS General: YES: Fatigue, Malaise, Appetite; No: Chills, Night Sweats, Other PSYCHOLOGICAL ROS: No: Anxiety, Behavioral Disorder, Concentration difficultie , Decreased libido, Depression, Disorientation, Hallucinations, Hostility, Irritablity, Memory difficulties, Mood Swings, Obsessive thoughts, Physical abuse, Sexual abuse, Sleep disturbances, Suicidal ideation, Other Eyes: No Blurry vision, No Decreased vision, No Double vision, No Dry eyes, No Excessive tearing, No Eye Pain, No Itchy Eyes, No Loss of vision, No Photophobia , No Scotomata, No Uses contacts, No Uses glasses, No Other HEENT: No: Heacaches, Visual Changes, Hearing change, Nasal congestion, Nasal discharge, Oral lesions, Sinus pain, Sore Throat, Epistaxis, Sneezing, Snoring, Tinnitus, Vertigo, Vocal changes, Other ALLERGY AND IMMUNOLOGY: No: Hives, Insect Bite Sensitivity, Itchy/Watery Eyes, Nasal Congestion, Post Nasal Drip, Seasonal Allergies, Other Hematological and Lymphatic: No: Bleeding Problems, Blood Clots, Blood Transfusions, Brusing, Night Sweats, Pallor, Swollen Lymph Nodes, Other ENDOCRINE: No: Breast Changes, Galactorrhea, Hair Pattern Changes, Hot Flashes , Malaise/lethargy, Mood Swings, Palpitations, Polydipsia/polyuria, Skin Changes , Temperature Intolerance, Unexpected Weight Changes, Other Breast: No New/Changing Breast Lumps, No Nipple changes, No Nipple discharge, No Other Respiratory: No: Cough, Hemoptysis, Orthopnea, Pleuritic Pain, Shortness of breath, SOB with excertion, Sputum Changes, Stridor, Tachypnea, Wheezing, Other Cardiovascular: No Chest Pain, No Palpitations, No Orthopnea, No Paroxysmal Noc. Dyspnea, No Edema, No Lt Headedness, No Other Gastrointestinal: Yes Nausea, Yes Diarrhea; No Vomiting, No Abdominal Pain, No Constipation, No Melena, No Hematochezia, No Other Genitourinary: No Dysuria, No Frequency, No Incontinence, No Hematuria, No Retention, No Discharge, No Urgency, No Pain, No Flank Pain, No Other, No , No , No , No , No , No , No Musculoskeletal: No Gait Disturbance, No Joint Pain, No Joint Stiffness, No Joint Swelling, No Muscle Pain, No Muscular Weakness, No Pain In:, No Swelling In:, No Other Neurological: No Behavorial Changes, No Bowel/Bladder ControlChng, No Confusion , No Dizziness, No Gait Disturbance, No Headaches, No Impaired Coord/balance, No Memory Loss, No Numbness/Tingling, No Seizures, No Speech Problems, No Tremors, No Visual Changes, No Weakness, No Other Skin: No Dry Skin, No Eczema, No Hair Changes, No Lumps, No Mole Changes, No Mottling, No Nail Changes, No Pruritus, No Rash, No Skin Lesion Changes, No Other, No Acne Physical Exam General: Alert, Oriented X3, Cooperative, No acute distress HEENT: Atraumatic, PERRLA, EOMI, Mucous membr. moist/pink Lungs: Clear to auscultation, Normal air movement Heart: S1S2, RRR, no gallops Abdomen: Normal bowel sounds, Soft, No tenderness, No hepatosplenomegaly, No masses Extremities: No clubbing, No cyanosis, No edema, Normal pulses, No tenderness/ swelling Skin: No rashes, No breakdown, No significant lesion Neuro: Normal gait, Normal speech, Strength at 5/5 X4 ext, Normal tone, Sensation intact, Cranial nerves 3-12 NL, Reflexes 2+ Psych/Mental Status: Mental status NL, Mood NL Vitals Vitals Vital Signs Date Time Temp Pulse Resp B/P (MAP) Pulse Ox O2 Delivery O2 Flow Rate FiO2 03/05/19 11:47 68 165/90 (115) 96 Room Air 03/05/19 09:43 98.0 16 98.0 Labs Labs Laboratory Tests Test 03/05/19 09:45 03/05/19 10:00 03/05/19 10:19 03/05/19 10:40 White Blood Count 8.8 x10^3/uL (4.0-11.0) Red Blood Count 4.67 x10^6/uL (3.50-5.40) Hemoglobin 11.7 g/dL (12.0-15.5) Hematocrit 37.0 % (36.0-47.0) Mean Corpuscular Volume 79 fL (79-100) Mean Corpuscular Hemoglobin 25 pg (25-35) Mean Corpuscular Hemoglobin Concent 32 g/dL (31-37) Red Cell Distribution Width 25.8 % (11.5-14.5) Platelet Count 292 x10^3/uL (140-400) Neutrophils (%) (Auto) 63 % (31-73) Lymphocytes (%) (Auto) 28 % (24-48) Monocytes (%) (Auto) 6 % (0-9) Eosinophils (%) (Auto) 2 % (0-3) Basophils (%) (Auto) 0 % (0-3) Neutrophils # (Auto) 5.5 x10^3uL (1.8-7.7) Lymphocytes # (Auto) 2.4 x10^3/uL (1.0-4.8) Monocytes # (Auto) 0.6 x10^3/uL (0.0-1.1) Eosinophils # (Auto) 0.2 x10^3/uL (0.0-0.7) Basophils # (Auto) 0.0 x10^3/uL (0.0-0.2) Platelet Estimate Adequate (ADEQUATE) Anisocytosis Mod Prothrombin Time 14.5 SEC (11.7-14.0) Prothromb Time International Ratio 1.2 (0.8-1.1) Activated Partial Thromboplast Time 31 SEC (24-38) Sodium Level 137 mmol/L (136-145) Potassium Level 4.0 mmol/L (3.5-5.1) Chloride Level 104 mmol/L (98-107) Carbon Dioxide Level 25 mmol/L (21-32) Anion Gap 8 (6-14) Blood Urea Nitrogen 14 mg/dL (7-20) Creatinine 0.9 mg/dL (0.6-1.0) Estimated GFR (Cockcroft-Gault) 73.9 BUN/Creatinine Ratio 16 (6-20) Glucose Level 126 mg/dL (70-99) Calcium Level 9.5 mg/dL (8.5-10.1) Total Bilirubin 0.4 mg/dL (0.2-1.0) Aspartate Amino Transf (AST/SGOT) 18 U/L (15-37) Alanine Aminotransferase (ALT/SGPT) 16 U/L (14-59) Alkaline Phosphatase 78 U/L (46-116) Total Protein 7.7 g/dL (6.4-8.2) Albumin 3.5 g/dL (3.4-5.0) Albumin/Globulin Ratio 0.8 (1.0-1.7) Lipase 139 U/L (73-393) Test 03/05/19 11:55 Urine Collection Type Unknown Urine Color Yellow Urine Clarity Clear Urine pH 5.5 Urine Specific Hubbell >=1.030 Urine Protein Negative mg/dL (NEG-TRACE) Urine Glucose (UA) Negative mg/dL (NEG) Urine Ketones (Stick) Negative mg/dL (NEG) Urine Blood Negative (NEG) Urine Nitrite Negative (NEG) Urine Bilirubin Negative (NEG) Urine Urobilinogen Dipstick 0.2 mg/dL (0.2 mg/dL) Urine Leukocyte Esterase Small (NEG) Urine RBC 0 /HPF (0-2) Urine WBC Rare /HPF (0-4) Urine Squamous Epithelial Cells Mod /LPF Urine Bacteria 0 /HPF (0-FEW) Laboratory Tests Test 03/05/19 09:45 03/05/19 10:00 03/05/19 10:19 03/05/19 10:40 White Blood Count 8.8 x10^3/uL (4.0-11.0) Red Blood Count 4.67 x10^6/uL (3.50-5.40) Hemoglobin 11.7 g/dL (12.0-15.5) Hematocrit 37.0 % (36.0-47.0) Mean Corpuscular Volume 79 fL (79-100) Mean Corpuscular Hemoglobin 25 pg (25-35) Mean Corpuscular Hemoglobin Concent 32 g/dL (31-37) Red Cell Distribution Width 25.8 % (11.5-14.5) Platelet Count 292 x10^3/uL (140-400) Neutrophils (%) (Auto) 63 % (31-73) Lymphocytes (%) (Auto) 28 % (24-48) Monocytes (%) (Auto) 6 % (0-9) Eosinophils (%) (Auto) 2 % (0-3) Basophils (%) (Auto) 0 % (0-3) Neutrophils # (Auto) 5.5 x10^3uL (1.8-7.7) Lymphocytes # (Auto) 2.4 x10^3/uL (1.0-4.8) Monocytes # (Auto) 0.6 x10^3/uL (0.0-1.1) Eosinophils # (Auto) 0.2 x10^3/uL (0.0-0.7) Basophils # (Auto) 0.0 x10^3/uL (0.0-0.2) Platelet Estimate Adequate (ADEQUATE) Anisocytosis Mod Prothrombin Time 14.5 SEC (11.7-14.0) Prothromb Time International Ratio 1.2 (0.8-1.1) Activated Partial Thromboplast Time 31 SEC (24-38) Sodium Level 137 mmol/L (136-145) Potassium Level 4.0 mmol/L (3.5-5.1) Chloride Level 104 mmol/L (98-107) Carbon Dioxide Level 25 mmol/L (21-32) Anion Gap 8 (6-14) Blood Urea Nitrogen 14 mg/dL (7-20) Creatinine 0.9 mg/dL (0.6-1.0) Estimated GFR (Cockcroft-Gault) 73.9 BUN/Creatinine Ratio 16 (6-20) Glucose Level 126 mg/dL (70-99) Calcium Level 9.5 mg/dL (8.5-10.1) Total Bilirubin 0.4 mg/dL (0.2-1.0) Aspartate Amino Transf (AST/SGOT) 18 U/L (15-37) Alanine Aminotransferase (ALT/SGPT) 16 U/L (14-59) Alkaline Phosphatase 78 U/L (46-116) Total Protein 7.7 g/dL (6.4-8.2) Albumin 3.5 g/dL (3.4-5.0) Albumin/Globulin Ratio 0.8 (1.0-1.7) Lipase 139 U/L (73-393) Test 03/05/19 11:55 Urine Collection Type Unknown Urine Color Yellow Urine Clarity Clear Urine pH 5.5 Urine Specific Hubbell >=1.030 Urine Protein Negative mg/dL (NEG-TRACE) Urine Glucose (UA) Negative mg/dL (NEG) Urine Ketones (Stick) Negative mg/dL (NEG) Urine Blood Negative (NEG) Urine Nitrite Negative (NEG) Urine Bilirubin Negative (NEG) Urine Urobilinogen Dipstick 0.2 mg/dL (0.2 mg/dL) Urine Leukocyte Esterase Small (NEG) Urine RBC 0 /HPF (0-2) Urine WBC Rare /HPF (0-4) Urine Squamous Epithelial Cells Mod /LPF Urine Bacteria 0 /HPF (0-FEW) Images Images CT abdomen/pelvis - Mild to moderate dilation of the small bowel loops without a definite transition. Ileus pattern is suspected. Early and/or developing of acute obstruction not excluded. Clinical and radiographic follow-up recommended. VTE Prophylaxis Ordered VTE Prophylaxis Devices: No VTE Pharmacological Prophylaxi: Yes Assessment/Plan Assessment/Plan A/P: Diarrhea - will check C. diff with her multiple hospital stays, stool culture. Hold off on immodium and antibiotics until we have a culture back. Psyllium ok Abnormal CT abdomen - no definite obstruction and she has diarrhea, will cont GI soft diet as she has no pain. Consult GI and surgery COPD - nebs prn DM2 - sliding scale HTN - cont meds S/p recent right hemicolectomy - with revision. Will monitor. Let surgery know she is hospitalized FEN - ADA gi soft PPX - Heparin FULL CODE Inpatient for acute diarrheal illness with concern for early small bowel obstruction, likely 2 midnights. FLORY NEAL MD Mar 05, 2019 12:54
[2019-03-05] MEDS ORDERED: IV NORMAL SALINE 1000ML BAG 1,000 ML IV ONE (13:00)
[2019-03-05] MEDS ORDERED: ONDANSETRON PF 4 MG/2 ML VIAL. IV PRN (13:00)
[2019-03-05] MEDS ORDERED: MORPHINE SULFATE 2 MG/ML VIAL. IV PRN (13:00)
[2019-03-05 13:30] VITALS: BP 144/90
[2019-03-05 15:00] VITALS: BP 166/89
[2019-03-05] MEDS ORDERED: ALPRAZolam 0.25 MG TABLET PO PRN (16:15)
[2019-03-05] MEDS ORDERED: ACETAMINOPHEN 325 MG TABLET. PO PRN (16:15)
[2019-03-05] MEDS ORDERED: DEXTROSE 50% 25 GM / 50ML DISP.SYRIN. IV PRN (16:15)
[2019-03-05] MEDS ORDERED: ALBUTEROL SULFATE 2.5 MG/3 ML NEBU. NEB PRN (16:30)
[2019-03-05] MEDS ORDERED: PHENYLEPH/MINERAL OIL/PETROLAT RECTAL OINTMENT 28GM TUBE. RC PRN (16:30)
[2019-03-05] MEDS: PANTOPRAZOLE 40 MG TABLET.DR. PO SCH (17:00)
[2019-03-05] MEDS: INSULIN LISPRO 300 UNITS/3 ML INSULN.PEN. SQ SCH (17:00)
[2019-03-05] MEDS: SPIRONOLACTONE 25 MG TABLET PO SCH (17:06)
[2019-03-05] MEDS: LOSARTAN POTASSIUM 50 MG TABLET. PO SCH (17:06)
[2019-03-05] MEDS: amLODIPine BESYLATE 10 MG TABLET PO SCH (17:07)
[2019-03-05] MEDS: METOPROLOL SUCC 24HR ER 25 MG TAB.ER.24H. PO SCH (17:07)
[2019-03-05] MEDS: ASCORBIC ACID 500 MG TABLET PO SCH (17:07)
[2019-03-05] MEDS: FERROUS SULFATE 325 MG TABLET. PO SCH (17:07)
[2019-03-05] MEDS: DULoxetine HCL 30 MG CAPSULE.DR PO SCH (17:07)
[2019-03-05] MEDS ORDERED: IPRATRPIUM/ALBUTEROL 0.5/2.5MG 3 ML NEBU. ONE (18:05)
[2019-03-05] MEDS: IPRATRPIUM/ALBUTEROL 0.5/2.5MG 3 ML NEBU. NEB SCH (18:15)
[2019-03-05 19:00] VITALS: BP 132/87
[2019-03-05] MEDS ORDERED: HYDROcodone/APAP 7.5/325MG 1 TAB TABLET PO PRN (20:15)
[2019-03-05] MEDS ORDERED: PROCHLORPERAZINE 10 MG/2 ML VIAL. IV PRN (20:30)
[2019-03-05] MEDS: MEMANTINE 10 MG TABLET. PO SCH (20:59)
[2019-03-05] MEDS: BENZOCAINE/MENTHOL LOZENGE. PO PRN (20:59)
[2019-03-05] MEDS ORDERED: PSYLLIUM HUSK (SUGAR FREE) 1 PKT PACKET PO SCH (21:00)
[2019-03-05] MEDS: HYDROCORTISONE ACETATE 25 MG SUPP.RECT PR SCH (21:00)
[2019-03-05] MEDS ORDERED: rOPINIRole 1 MG TABLET. PO SCH (21:00)
[2019-03-05] MEDS: HEPARIN for SUB-Q USE 5,000 UNIT/ML VIAL. SQ SCH (21:02)
[2019-03-05 22:38] VITALS: BP 136/83
[2019-03-06 03:00] VITALS: BP 128/81
[2019-03-06 05:34] LABS: BASO % 0 % (0-3); EOS # 0.2 x10^3/uL (0.0-0.7); EOS % 3 % (0-3); HEMATOCRIT 34.4 % (36.0-47.0); HEMOGLOBIN 11.4 g/dL (12.0-15.5); LYMPH % 26 % (24-48); MEAN CORPUSCULAR HEMOGLOBIN 26 pg (25-35); MEAN CORPUSCULAR HGB CONC 33 g/dL (31-37); MEAN CORPUSCULAR VOLUME 78 fL (79-100); MONO # 0.7 x10^3/uL (0.0-1.1); MONO % 8 % (0-9); NEUT # 5.1 x10^3uL (1.8-7.7); NEUT % 63 % (31-73); PLATELET COUNT 261 x10^3/uL (140-400); RED BLOOD COUNT 4.42 x10^6/uL (3.50-5.40); RED CELL DISTRIBUTION WIDTH 25.2 % (11.5-14.5)
[2019-03-06] MEDS: HEPARIN for SUB-Q USE 5,000 UNIT/ML VIAL. SQ SCH ×2 (05:45→14:00)
[2019-03-06 05:56] LABS: ALBUMIN 3.3 g/dL (3.4-5.0); ALBUMIN/GLOBULIN RATIO 0.8 (1.0-1.7); CALCIUM 9.3 mg/dL (8.5-10.1); CREATININE 0.8 mg/dL (0.6-1.0); GFR 84.6; POTASSIUM 3.7 mmol/L (3.5-5.1); TOTAL BILIRUBIN 0.4 mg/dL (0.2-1.0); TOTAL PROTEIN 7.5 g/dL (6.4-8.2)
[2019-03-06] MEDS: IPRATRPIUM/ALBUTEROL 0.5/2.5MG 3 ML NEBU. NEB SCH (06:22)
[2019-03-06 07:00] VITALS: BP 145/78
[2019-03-06] MEDS: INSULIN LISPRO 300 UNITS/3 ML INSULN.PEN. SQ SCH ×2 (08:00→11:22)
[2019-03-06] MEDS: HYDROCORTISONE ACETATE 25 MG SUPP.RECT PR SCH (09:00)
--- NOTE | 2019-03-06 09:48 | PDOC2 ---
CONSULT Date of Consult Date of Consult DATE: 03/06/19 TIME: 09:47 History of Present Illness Reason for Visit: The patient is a 73 year old female who reported to the ER due to diarrhea. She underwent a laparoscopic R colectomy on 12/17/18 with subsequent take back for extended R colectomy on 12/30/18. She was recently treated and discharged for constipation. She reports consistent watery diarrhea over the last several days. She denies any bleeding, abdominal pain, or vomiting. Past Medical History Cardiovascular: HTN Pulmonary: Asthma, Bronchitis, COPD Past Surgical History Past Surgical History: Colectomy, Colon Resection Family History Family History: Heart Disease Social History Social History: Parent No ALCOHOL: none Drugs: None Lives: with Family Current Problem List Problem List Problems Medical Problems: (1) Diarrhea Status: Acute Current Medications Current Medications Current Medications Iohexol (Omnipaque 300 Mg/ml) 75 ml 1X ONCE IV Last administered on 03/05/19at 11:00; Start 03/05/19 at 11:00; Stop 03/05/19 at 11:02; Status DC Info (CONTRAST GIVEN -- Rx MONITORING) 1 each PRN DAILY PRN MC SEE COMMENTS; Start 03/05/19 at 11:15; Stop 03/07/19 at 11:14 Ondansetron HCl (Zofran) 4 mg PRN Q8HRS PRN IV NAUSEA/VOMITING; Start 03/05/19 at 13:00; Stop 03/06/19 at 12:59 Morphine Sulfate (Morphine Sulfate) 2 mg PRN Q2HR PRN IV PAIN; Start 03/05/19 at 13:00; Stop 03/06/19 at 12:59 Sodium Chloride 1,000 ml @ 75 mls/hr 1X ONCE IV Last administered on at 13:34; Start 03/05/19 at 13:00; Stop 03/06/19 at 02:19; Status DC Acetaminophen (Tylenol) 650 mg PRN Q6HRS PRN PO PAIN; Start 03/05/19 at 16:15 Alprazolam (Xanax) 0.25 mg PRN Q8HRS PRN PO ANXIETY / AGITATION; Start at 16:15 Amlodipine Besylate (Norvasc) 10 mg DAILY PO Last administered on 03/05/19at 17: 07; Start 03/05/19 at 17:00 Duloxetine HCl (Cymbalta) 60 mg DAILY PO Last administered on 03/05/19at 17:07; Start 03/05/19 at 17:00 Albuterol/ Ipratropium (Duoneb) 3 ml RTBID NEB Last administered on 03/06/19at 06:22; Start 03/05/19 at 20:00 Metoprolol Succinate (Toprol Xl) 25 mg DAILY PO Last administered on 03/05/19at 17:07; Start 03/05/19 at 17:00 Albuterol Sulfate (Ventolin Neb Soln) 2.5 mg PRN Q4HRS PRN NEB SHORTNESS OF BREATH; Start 03/05/19 at 16:30 Ascorbic Acid (Vitamin C) 500 mg DAILY PO Last administered on 03/05/19at 17:07 ; Start 03/05/19 at 17:00 Ferrous Sulfate (Feosol) 325 mg DAILYWBKFT PO Last administered on 03/05/19at 17 :07; Start 03/05/19 at 17:00 Hydrocortisone Acetate (Anucort-Hc) 25 mg BID UT ; Start 03/05/19 at 21:00 Phenyleph/Shark Oil/Min Oil/Petrol (Preparation H) 1 tomy PRN Q6HRS PRN RC RECTAL PAIN; Start 03/05/19 at 16:30 Losartan Potassium (Cozaar) 100 mg DAILY PO Last administered on 03/05/19at 17: 06; Start 03/05/19 at 17:00 Memantine (Namenda) 10 mg BID PO Last administered on 03/05/19at 20:59; Start at 21:00 Pantoprazole Sodium (Protonix) 40 mg DAILYAC PO ; Start 03/05/19 at 17:00 Ropinirole HCl (Requip) 3 mg QHS PO Last administered on 03/05/19at 20:59; Start 03/05/19 at 21:00 Spironolactone (Aldactone) 25 mg DAILY PO Last administered on 03/05/19at 17:06 ; Start 03/05/19 at 17:00 Insulin Human Lispro (HumaLOG) 0-5 UNITS TIDWMEALS SQ ; Start 03/05/19 at 17:00 Dextrose (Dextrose 50%-Water Syringe) 12.5 gm PRN Q15MIN PRN IV SEE COMMENTS; Start 03/05/19 at 16:15 Albuterol/ Ipratropium (Duoneb) 3 ml STK-MED ONCE .ROUTE ; Start 03/05/19 at 18: 05; Stop 03/05/19 at 18:06; Status DC Throat Lozenges (Cepacol Sore Throat Lozenge) 1 kristyn PRN Q2HRS PRN PO SORE THROAT Last administered on 03/05/19at 20:59; Start 03/05/19 at 20:15 Acetaminophen/ Hydrocodone Bitart (Lortab 7.5/325) 1 tab PRN Q6HRS PRN PO PAIN Last administered on 03/05/19at 20:59; Start 03/05/19 at 20:15 Psyllium Hydrophilic Mucilloid (Metamucil Fiber Packet) 1 pkt QHS PO ; Start at 21:00 Heparin Sodium (Porcine) (Heparin Sodium) 5,000 unit Q8HRS SQ Last administered on 03/05/19at 21:02; Start 03/05/19 at 22:00 Prochlorperazine Edisylate (Compazine) 10 mg PRN Q6HRS PRN IV NAUSEA/VOMITING; Start 03/05/19 at 20:30 Active Scripts Active Duoneb 0.5-3(2.5) Mg/3 Ml (Albuterol/Ipratropium) 3 Ml Ampul.neb 3 Ml NEB BID Alprazolam 0.25 Mg Tablet 0.25 Mg PO PRN Q8HRS PRN Cymbalta (Duloxetine Hcl) 30 Mg Capsule.dr 60 Mg PO DAILY Vitamin C (Ascorbate Calcium) 500 Mg Tablet 500 Mg PO DAILY 30 Days Slow Release Iron (Ferrous Sulfate) 250 Mg Tablet.er 250 Mg PO DAILY 30 Days Protonix (Pantoprazole Sodium) 40 Mg Granpkt.dr 40 Mg PO DAILY 30 Days Reported Amlodipine Besylate 10 Mg Tablet 10 Mg PO DAILY Metoprolol Succinate ( Xl ) (Metoprolol Succinate) 25 Mg Tab.er.24h 25 Mg PO DAILY Anusol-Hc (Hydrocortisone Acetate) 25 Mg Supp.rect 1 Supp RC BID Analpram Hc 2.5% Cream (Hydrocortisone/Pramoxine) 30 Gm Cream.appl 1 Tomy RC PRN Q6HRS PRN Tylenol (Acetaminophen) 325 Mg Tablet 650 Mg PO PRN Q6HRS PRN Namenda (Memantine Hcl) 10 Mg Tablet 1 Tab PO BID Losartan Potassium 100 Mg Tablet 100 Mg PO DAILY Spironolactone 25 Mg Tablet 1 Tab PO DAILY Ventolin Hfa Inhaler (Albuterol Sulfate) 18 Gm Hfa.aer.ad 2 Puff INH Q4HRS Requip (Ropinirole Hcl) 1 Mg Tablet 3 Mg PO HS Allergies Allergies: Coded Allergies: Penicillins (Verified Allergy, Intermediate, 12/16/18) ROS General: No: Night Sweats, Fatigue, Malaise, Appetite, Other PSYCHOLOGICAL ROS: No: Anxiety, Behavioral Disorder, Concentration difficultie , Decreased libido, Depression, Disorientation, Hallucinations, Hostility, Irritablity, Memory difficulties, Mood Swings, Obsessive thoughts, Physical abuse, Sexual abuse, Sleep disturbances, Suicidal ideation, Other Eyes: No Blurry vision, No Decreased vision, No Double vision, No Dry eyes, No Excessive tearing, No Eye Pain, No Itchy Eyes, No Loss of vision, No Photophobia , No Scotomata, No Uses contacts, No Uses glasses, No Other HEENT: No: Heacaches, Visual Changes, Hearing change, Nasal congestion, Nasal discharge, Oral lesions, Sinus pain, Sore Throat, Epistaxis, Sneezing, Snoring, Tinnitus, Vertigo, Vocal changes, Other ALLERGY AND IMMUNOLOGY: No: Hives, Insect Bite Sensitivity, Itchy/Watery Eyes, Nasal Congestion, Post Nasal Drip, Seasonal Allergies, Other Hematological and Lymphatic: No: Bleeding Problems, Blood Clots, Blood Transfusions, Brusing, Night Sweats, Pallor, Swollen Lymph Nodes, Other ENDOCRINE: No: Breast Changes, Galactorrhea, Hair Pattern Changes, Hot Flashes , Malaise/lethargy, Mood Swings, Palpitations, Polydipsia/polyuria, Skin Changes , Temperature Intolerance, Unexpected Weight Changes, Other Breast: No New/Changing Breast Lumps, No Nipple changes, No Nipple discharge, No Other Respiratory: No: Cough, Hemoptysis, Orthopnea, Pleuritic Pain, Shortness of breath, SOB with excertion, Sputum Changes, Stridor, Tachypnea, Wheezing, Other Cardiovascular: No Chest Pain, No Palpitations, No Orthopnea, No Paroxysmal Noc. Dyspnea, No Edema, No Lt Headedness, No Other Gastrointestinal: Yes Diarrhea Genitourinary: No Dysuria, No Frequency, No Incontinence, No Hematuria, No Retention, No Discharge, No Urgency, No Pain, No Flank Pain, No Other, No , No , No , No , No , No , No Musculoskeletal: No Gait Disturbance, No Joint Pain, No Joint Stiffness, No Joint Swelling, No Muscle Pain, No Muscular Weakness, No Pain In:, No Swelling In:, No Other Neurological: No Behavorial Changes, No Bowel/Bladder ControlChng, No Confusion , No Dizziness, No Gait Disturbance, No Headaches, No Impaired Coord/balance, No Memory Loss, No Numbness/Tingling, No Seizures, No Speech Problems, No Tremors, No Visual Changes, No Weakness, No Other Skin: No Dry Skin, No Eczema, No Hair Changes, No Lumps, No Mole Changes, No Mottling, No Nail Changes, No Pruritus, No Rash, No Skin Lesion Changes, No Other, No Acne Physical Exam General: Alert, Oriented X3, Cooperative HEENT: Atraumatic Lungs: Clear to auscultation Heart: Regular rate Abdomen: Soft, No tenderness Extremities: No clubbing, No cyanosis Skin: No rashes, No breakdown Neuro: Normal speech Psych/Mental Status: Mental status NL Vitals VITALS Vital Signs Date Time Temp Pulse Resp B/P (MAP) Pulse Ox O2 Delivery O2 Flow Rate FiO2 03/06/19 06:13 Room Air 03/06/19 03:00 98.5 80 18 128/81 (97) 90 98.5 Labs Labs Laboratory Tests Test 03/05/19 09:45 03/05/19 10:00 03/05/19 10:19 03/05/19 10:40 White Blood Count 8.8 x10^3/uL (4.0-11.0) Red Blood Count 4.67 x10^6/uL (3.50-5.40) Hemoglobin 11.7 g/dL (12.0-15.5) Hematocrit 37.0 % (36.0-47.0) Mean Corpuscular Volume 79 fL (79-100) Mean Corpuscular Hemoglobin 25 pg (25-35) Mean Corpuscular Hemoglobin Concent 32 g/dL (31-37) Red Cell Distribution Width 25.8 % (11.5-14.5) Platelet Count 292 x10^3/uL (140-400) Neutrophils (%) (Auto) 63 % (31-73) Lymphocytes (%) (Auto) 28 % (24-48) Monocytes (%) (Auto) 6 % (0-9) Eosinophils (%) (Auto) 2 % (0-3) Basophils (%) (Auto) 0 % (0-3) Neutrophils # (Auto) 5.5 x10^3uL (1.8-7.7) Lymphocytes # (Auto) 2.4 x10^3/uL (1.0-4.8) Monocytes # (Auto) 0.6 x10^3/uL (0.0-1.1) Eosinophils # (Auto) 0.2 x10^3/uL (0.0-0.7) Basophils # (Auto) 0.0 x10^3/uL (0.0-0.2) Platelet Estimate Adequate (ADEQUATE) Anisocytosis Mod Prothrombin Time 14.5 SEC (11.7-14.0) Prothromb Time International Ratio 1.2 (0.8-1.1) Activated Partial Thromboplast Time 31 SEC (24-38) Sodium Level 137 mmol/L (136-145) Potassium Level 4.0 mmol/L (3.5-5.1) Chloride Level 104 mmol/L (98-107) Carbon Dioxide Level 25 mmol/L (21-32) Anion Gap 8 (6-14) Blood Urea Nitrogen 14 mg/dL (7-20) Creatinine 0.9 mg/dL (0.6-1.0) Estimated GFR (Cockcroft-Gault) 73.9 BUN/Creatinine Ratio 16 (6-20) Glucose Level 126 mg/dL (70-99) Calcium Level 9.5 mg/dL (8.5-10.1) Total Bilirubin 0.4 mg/dL (0.2-1.0) Aspartate Amino Transf (AST/SGOT) 18 U/L (15-37) Alanine Aminotransferase (ALT/SGPT) 16 U/L (14-59) Alkaline Phosphatase 78 U/L (46-116) Total Protein 7.7 g/dL (6.4-8.2) Albumin 3.5 g/dL (3.4-5.0) Albumin/Globulin Ratio 0.8 (1.0-1.7) Lipase 139 U/L (73-393) Test 03/05/19 11:55 03/05/19 16:38 03/05/19 20:36 03/06/19 04:45 Urine Collection Type Unknown Urine Color Yellow Urine Clarity Clear Urine pH 5.5 Urine Specific [place] >=1.030 Urine Protein Negative mg/dL (NEG-TRACE) Urine Glucose (UA) Negative mg/dL (NEG) Urine Ketones (Stick) Negative mg/dL (NEG) Urine Blood Negative (NEG) Urine Nitrite Negative (NEG) Urine Bilirubin Negative (NEG) Urine Urobilinogen Dipstick 0.2 mg/dL (0.2 mg/dL) Urine Leukocyte Esterase Small (NEG) Urine RBC 0 /HPF (0-2) Urine WBC Rare /HPF (0-4) Urine Squamous Epithelial Cells Mod /LPF Urine Bacteria 0 /HPF (0-FEW) Glucose (Fingerstick) 92 mg/dL (70-99) 96 mg/dL (70-99) White Blood Count 8.0 x10^3/uL (4.0-11.0) Red Blood Count 4.42 x10^6/uL (3.50-5.40) Hemoglobin 11.4 g/dL (12.0-15.5) Hematocrit 34.4 % (36.0-47.0) Mean Corpuscular Volume 78 fL (79-100) Mean Corpuscular Hemoglobin 26 pg (25-35) Mean Corpuscular Hemoglobin Concent 33 g/dL (31-37) Red Cell Distribution Width 25.2 % (11.5-14.5) Platelet Count 261 x10^3/uL (140-400) Neutrophils (%) (Auto) 63 % (31-73) Lymphocytes (%) (Auto) 26 % (24-48) Monocytes (%) (Auto) 8 % (0-9) Eosinophils (%) (Auto) 3 % (0-3) Basophils (%) (Auto) 0 % (0-3) Neutrophils # (Auto) 5.1 x10^3uL (1.8-7.7) Lymphocytes # (Auto) 2.0 x10^3/uL (1.0-4.8) Monocytes # (Auto) 0.7 x10^3/uL (0.0-1.1) Eosinophils # (Auto) 0.2 x10^3/uL (0.0-0.7) Basophils # (Auto) 0.0 x10^3/uL (0.0-0.2) Sodium Level 137 mmol/L (136-145) Potassium Level 3.7 mmol/L (3.5-5.1) Chloride Level 102 mmol/L (98-107) Carbon Dioxide Level 25 mmol/L (21-32) Anion Gap 10 (6-14) Blood Urea Nitrogen 13 mg/dL (7-20) Creatinine 0.8 mg/dL (0.6-1.0) Estimated GFR (Cockcroft-Gault) 84.6 BUN/Creatinine Ratio 16 (6-20) Glucose Level 119 mg/dL (70-99) Calcium Level 9.3 mg/dL (8.5-10.1) Total Bilirubin 0.4 mg/dL (0.2-1.0) Aspartate Amino Transf (AST/SGOT) 17 U/L (15-37) Alanine Aminotransferase (ALT/SGPT) 16 U/L (14-59) Alkaline Phosphatase 77 U/L (46-116) Total Protein 7.5 g/dL (6.4-8.2) Albumin 3.3 g/dL (3.4-5.0) Albumin/Globulin Ratio 0.8 (1.0-1.7) Test 03/06/19 07:31 Glucose (Fingerstick) 112 mg/dL (70-99) Laboratory Tests Test 03/05/19 10:00 03/05/19 10:19 03/05/19 10:40 03/05/19 11:55 Platelet Estimate Adequate (ADEQUATE) Anisocytosis Mod Prothrombin Time 14.5 SEC (11.7-14.0) Prothromb Time International Ratio 1.2 (0.8-1.1) Activated Partial Thromboplast Time 31 SEC (24-38) Sodium Level 137 mmol/L (136-145) Potassium Level 4.0 mmol/L (3.5-5.1) Chloride Level 104 mmol/L (98-107) Carbon Dioxide Level 25 mmol/L (21-32) Anion Gap 8 (6-14) Blood Urea Nitrogen 14 mg/dL (7-20) Creatinine 0.9 mg/dL (0.6-1.0) Estimated GFR (Cockcroft-Gault) 73.9 BUN/Creatinine Ratio 16 (6-20) Glucose Level 126 mg/dL (70-99) Calcium Level 9.5 mg/dL (8.5-10.1) Total Bilirubin 0.4 mg/dL (0.2-1.0) Aspartate Amino Transf (AST/SGOT) 18 U/L (15-37) Alanine Aminotransferase (ALT/SGPT) 16 U/L (14-59) Alkaline Phosphatase 78 U/L (46-116) Total Protein 7.7 g/dL (6.4-8.2) Albumin 3.5 g/dL (3.4-5.0) Albumin/Globulin Ratio 0.8 (1.0-1.7) Lipase 139 U/L (73-393) Urine Collection Type Unknown Urine Color Yellow Urine Clarity Clear Urine pH 5.5 Urine Specific [place] >=1.030 Urine Protein Negative mg/dL (NEG-TRACE) Urine Glucose (UA) Negative mg/dL (NEG) Urine Ketones (Stick) Negative mg/dL (NEG) Urine Blood Negative (NEG) Urine Nitrite Negative (NEG) Urine Bilirubin Negative (NEG) Urine Urobilinogen Dipstick 0.2 mg/dL (0.2 mg/dL) Urine Leukocyte Esterase Small (NEG) Urine RBC 0 /HPF (0-2) Urine WBC Rare /HPF (0-4) Urine Squamous Epithelial Cells Mod /LPF Urine Bacteria 0 /HPF (0-FEW) Test 03/05/19 16:38 03/05/19 20:36 03/06/19 04:45 03/06/19 07:31 Glucose (Fingerstick) 92 mg/dL (70-99) 96 mg/dL (70-99) 112 mg/dL (70-99) White Blood Count 8.0 x10^3/uL (4.0-11.0) Red Blood Count 4.42 x10^6/uL (3.50-5.40) Hemoglobin 11.4 g/dL (12.0-15.5) Hematocrit 34.4 % (36.0-47.0) Mean Corpuscular Volume 78 fL (79-100) Mean Corpuscular Hemoglobin 26 pg (25-35) Mean Corpuscular Hemoglobin Concent 33 g/dL (31-37) Red Cell Distribution Width 25.2 % (11.5-14.5) Platelet Count 261 x10^3/uL (140-400) Neutrophils (%) (Auto) 63 % (31-73) Lymphocytes (%) (Auto) 26 % (24-48) Monocytes (%) (Auto) 8 % (0-9) Eosinophils (%) (Auto) 3 % (0-3) Basophils (%) (Auto) 0 % (0-3) Neutrophils # (Auto) 5.1 x10^3uL (1.8-7.7) Lymphocytes # (Auto) 2.0 x10^3/uL (1.0-4.8) Monocytes # (Auto) 0.7 x10^3/uL (0.0-1.1) Eosinophils # (Auto) 0.2 x10^3/uL (0.0-0.7) Basophils # (Auto) 0.0 x10^3/uL (0.0-0.2) Sodium Level 137 mmol/L (136-145) Potassium Level 3.7 mmol/L (3.5-5.1) Chloride Level 102 mmol/L (98-107) Carbon Dioxide Level 25 mmol/L (21-32) Anion Gap 10 (6-14) Blood Urea Nitrogen 13 mg/dL (7-20) Creatinine 0.8 mg/dL (0.6-1.0) Estimated GFR (Cockcroft-Gault) 84.6 BUN/Creatinine Ratio 16 (6-20) Glucose Level 119 mg/dL (70-99) Calcium Level 9.3 mg/dL (8.5-10.1) Total Bilirubin 0.4 mg/dL (0.2-1.0) Aspartate Amino Transf (AST/SGOT) 17 U/L (15-37) Alanine Aminotransferase (ALT/SGPT) 16 U/L (14-59) Alkaline Phosphatase 77 U/L (46-116) Total Protein 7.5 g/dL (6.4-8.2) Albumin 3.3 g/dL (3.4-5.0) Albumin/Globulin Ratio 0.8 (1.0-1.7) Assessment/Plan Assessment/Plan Diarrhea, CT showing some dilated SB loops, most consistent with enteritis; improved at this time; ok to advance diet and monitor ELIZABETH BUTCHER MD Mar 06, 2019 09:48
[2019-03-06] MEDS: MEMANTINE 10 MG TABLET. PO SCH (10:01)
[2019-03-06] MEDS: ASCORBIC ACID 500 MG TABLET PO SCH (10:01)
[2019-03-06] MEDS: PANTOPRAZOLE 40 MG TABLET.DR. PO SCH (10:01)
[2019-03-06] MEDS: SPIRONOLACTONE 25 MG TABLET PO SCH (10:01)
[2019-03-06] MEDS: DULoxetine HCL 30 MG CAPSULE.DR PO SCH (10:01)
[2019-03-06] MEDS: amLODIPine BESYLATE 10 MG TABLET PO SCH (10:02)
[2019-03-06] MEDS: METOPROLOL SUCC 24HR ER 25 MG TAB.ER.24H. PO SCH (10:02)
[2019-03-06] MEDS: BENZOCAINE/MENTHOL LOZENGE. PO PRN (10:02)
[2019-03-06] MEDS: LOSARTAN POTASSIUM 50 MG TABLET. PO SCH (10:03)
[2019-03-06] MEDS: FERROUS SULFATE 325 MG TABLET. PO SCH (10:03)
[2019-03-06 11:00] VITALS: BP 158/88
--- NOTE | 2019-03-06 12:20 | PDOC ---
PROGRESS NOTES Chief Complaint Chief Complaint Diarrhea, abdominal pain History of Present Illness History of Present Illness The patient was seen sitting up in bed today. She is still having some diarrhea , but it is much better. She states she is ready to go home. Vitals Vitals Vital Signs Date Time Temp Pulse Resp B/P (MAP) Pulse Ox O2 Delivery O2 Flow Rate FiO2 03/06/19 10:03 78 145/78 03/06/19 07:00 98.4 18 96 98.4 03/06/19 06:13 Room Air Physical Exam General: Alert, Oriented X3, Cooperative, No acute distress Heart: Regular rate, Normal S1, Normal S2, No murmurs Lungs: Clear (No wheezes, ralse, or rhonchi) Abdomen: Soft, No tenderness, No masses Extremities: No edema, Normal pulses, No tenderness/swelling Skin: No rashes, No breakdown, No significant lesion Labs LABS Laboratory Tests Test 03/05/19 16:38 03/05/19 20:36 03/06/19 04:45 03/06/19 07:31 Glucose (Fingerstick) 92 mg/dL (70-99) 96 mg/dL (70-99) 112 mg/dL (70-99) White Blood Count 8.0 x10^3/uL (4.0-11.0) Red Blood Count 4.42 x10^6/uL (3.50-5.40) Hemoglobin 11.4 g/dL (12.0-15.5) Hematocrit 34.4 % (36.0-47.0) Mean Corpuscular Volume 78 fL (79-100) Mean Corpuscular Hemoglobin 26 pg (25-35) Mean Corpuscular Hemoglobin Concent 33 g/dL (31-37) Red Cell Distribution Width 25.2 % (11.5-14.5) Platelet Count 261 x10^3/uL (140-400) Neutrophils (%) (Auto) 63 % (31-73) Lymphocytes (%) (Auto) 26 % (24-48) Monocytes (%) (Auto) 8 % (0-9) Eosinophils (%) (Auto) 3 % (0-3) Basophils (%) (Auto) 0 % (0-3) Neutrophils # (Auto) 5.1 x10^3uL (1.8-7.7) Lymphocytes # (Auto) 2.0 x10^3/uL (1.0-4.8) Monocytes # (Auto) 0.7 x10^3/uL (0.0-1.1) Eosinophils # (Auto) 0.2 x10^3/uL (0.0-0.7) Basophils # (Auto) 0.0 x10^3/uL (0.0-0.2) Sodium Level 137 mmol/L (136-145) Potassium Level 3.7 mmol/L (3.5-5.1) Chloride Level 102 mmol/L (98-107) Carbon Dioxide Level 25 mmol/L (21-32) Anion Gap 10 (6-14) Blood Urea Nitrogen 13 mg/dL (7-20) Creatinine 0.8 mg/dL (0.6-1.0) Estimated GFR (Cockcroft-Gault) 84.6 BUN/Creatinine Ratio 16 (6-20) Glucose Level 119 mg/dL (70-99) Calcium Level 9.3 mg/dL (8.5-10.1) Total Bilirubin 0.4 mg/dL (0.2-1.0) Aspartate Amino Transf (AST/SGOT) 17 U/L (15-37) Alanine Aminotransferase (ALT/SGPT) 16 U/L (14-59) Alkaline Phosphatase 77 U/L (46-116) Total Protein 7.5 g/dL (6.4-8.2) Albumin 3.3 g/dL (3.4-5.0) Albumin/Globulin Ratio 0.8 (1.0-1.7) Test 03/06/19 11:14 Glucose (Fingerstick) 103 mg/dL (70-99) Review of Systems Review of Systems Patient is still having some minor diarrhea. Her abdominal pain has diminished. She denies fevers, chills, nausea, vomiting, CP, SOB. Assessment and Plan Assessmemt and Plan Problems Medical Problems: (1) Diarrhea Status: Acute Assessment: Diarrhea and abdominal pain- was given enema one week ago Enteritis- Dilated small bowel loops on CT Hemicolectomy 12/17/18 COPD T2DM HTN Plan: Metamucil Advance diet as tolerated Awaiting C diff results Continue home meds F/u labs PT/OT DVT prophylaxis Discharge today Comment Review of Relevant I have reviewed the following items abdifatah (where applicable) has been applied. Labs Laboratory Tests Test 03/05/19 09:45 03/05/19 10:00 03/05/19 10:19 03/05/19 10:40 White Blood Count 8.8 x10^3/uL (4.0-11.0) Red Blood Count 4.67 x10^6/uL (3.50-5.40) Hemoglobin 11.7 g/dL (12.0-15.5) Hematocrit 37.0 % (36.0-47.0) Mean Corpuscular Volume 79 fL (79-100) Mean Corpuscular Hemoglobin 25 pg (25-35) Mean Corpuscular Hemoglobin Concent 32 g/dL (31-37) Red Cell Distribution Width 25.8 % (11.5-14.5) Platelet Count 292 x10^3/uL (140-400) Neutrophils (%) (Auto) 63 % (31-73) Lymphocytes (%) (Auto) 28 % (24-48) Monocytes (%) (Auto) 6 % (0-9) Eosinophils (%) (Auto) 2 % (0-3) Basophils (%) (Auto) 0 % (0-3) Neutrophils # (Auto) 5.5 x10^3uL (1.8-7.7) Lymphocytes # (Auto) 2.4 x10^3/uL (1.0-4.8) Monocytes # (Auto) 0.6 x10^3/uL (0.0-1.1) Eosinophils # (Auto) 0.2 x10^3/uL (0.0-0.7) Basophils # (Auto) 0.0 x10^3/uL (0.0-0.2) Platelet Estimate Adequate (ADEQUATE) Anisocytosis Mod Prothrombin Time 14.5 SEC (11.7-14.0) Prothromb Time International Ratio 1.2 (0.8-1.1) Activated Partial Thromboplast Time 31 SEC (24-38) Sodium Level 137 mmol/L (136-145) Potassium Level 4.0 mmol/L (3.5-5.1) Chloride Level 104 mmol/L (98-107) Carbon Dioxide Level 25 mmol/L (21-32) Anion Gap 8 (6-14) Blood Urea Nitrogen 14 mg/dL (7-20) Creatinine 0.9 mg/dL (0.6-1.0) Estimated GFR (Cockcroft-Gault) 73.9 BUN/Creatinine Ratio 16 (6-20) Glucose Level 126 mg/dL (70-99) Calcium Level 9.5 mg/dL (8.5-10.1) Total Bilirubin 0.4 mg/dL (0.2-1.0) Aspartate Amino Transf (AST/SGOT) 18 U/L (15-37) Alanine Aminotransferase (ALT/SGPT) 16 U/L (14-59) Alkaline Phosphatase 78 U/L (46-116) Total Protein 7.7 g/dL (6.4-8.2) Albumin 3.5 g/dL (3.4-5.0) Albumin/Globulin Ratio 0.8 (1.0-1.7) Lipase 139 U/L (73-393) Test 03/05/19 11:55 03/05/19 16:38 03/05/19 20:36 03/06/19 04:45 Urine Collection Type Unknown Urine Color Yellow Urine Clarity Clear Urine pH 5.5 Urine Specific [place] >=1.030 Urine Protein Negative mg/dL (NEG-TRACE) Urine Glucose (UA) Negative mg/dL (NEG) Urine Ketones (Stick) Negative mg/dL (NEG) Urine Blood Negative (NEG) Urine Nitrite Negative (NEG) Urine Bilirubin Negative (NEG) Urine Urobilinogen Dipstick 0.2 mg/dL (0.2 mg/dL) Urine Leukocyte Esterase Small (NEG) Urine RBC 0 /HPF (0-2) Urine WBC Rare /HPF (0-4) Urine Squamous Epithelial Cells Mod /LPF Urine Bacteria 0 /HPF (0-FEW) Glucose (Fingerstick) 92 mg/dL (70-99) 96 mg/dL (70-99) White Blood Count 8.0 x10^3/uL (4.0-11.0) Red Blood Count 4.42 x10^6/uL (3.50-5.40) Hemoglobin 11.4 g/dL (12.0-15.5) Hematocrit 34.4 % (36.0-47.0) Mean Corpuscular Volume 78 fL (79-100) Mean Corpuscular Hemoglobin 26 pg (25-35) Mean Corpuscular Hemoglobin Concent 33 g/dL (31-37) Red Cell Distribution Width 25.2 % (11.5-14.5) Platelet Count 261 x10^3/uL (140-400) Neutrophils (%) (Auto) 63 % (31-73) Lymphocytes (%) (Auto) 26 % (24-48) Monocytes (%) (Auto) 8 % (0-9) Eosinophils (%) (Auto) 3 % (0-3) Basophils (%) (Auto) 0 % (0-3) Neutrophils # (Auto) 5.1 x10^3uL (1.8-7.7) Lymphocytes # (Auto) 2.0 x10^3/uL (1.0-4.8) Monocytes # (Auto) 0.7 x10^3/uL (0.0-1.1) Eosinophils # (Auto) 0.2 x10^3/uL (0.0-0.7) Basophils # (Auto) 0.0 x10^3/uL (0.0-0.2) Sodium Level 137 mmol/L (136-145) Potassium Level 3.7 mmol/L (3.5-5.1) Chloride Level 102 mmol/L (98-107) Carbon Dioxide Level 25 mmol/L (21-32) Anion Gap 10 (6-14) Blood Urea Nitrogen 13 mg/dL (7-20) Creatinine 0.8 mg/dL (0.6-1.0) Estimated GFR (Cockcroft-Gault) 84.6 BUN/Creatinine Ratio 16 (6-20) Glucose Level 119 mg/dL (70-99) Calcium Level 9.3 mg/dL (8.5-10.1) Total Bilirubin 0.4 mg/dL (0.2-1.0) Aspartate Amino Transf (AST/SGOT) 17 U/L (15-37) Alanine Aminotransferase (ALT/SGPT) 16 U/L (14-59) Alkaline Phosphatase 77 U/L (46-116) Total Protein 7.5 g/dL (6.4-8.2) Albumin 3.3 g/dL (3.4-5.0) Albumin/Globulin Ratio 0.8 (1.0-1.7) Test 03/06/19 07:31 03/06/19 11:14 Glucose (Fingerstick) 112 mg/dL (70-99) 103 mg/dL (70-99) Laboratory Tests Test 03/05/19 16:38 03/05/19 20:36 03/06/19 04:45 03/06/19 07:31 Glucose (Fingerstick) 92 mg/dL (70-99) 96 mg/dL (70-99) 112 mg/dL (70-99) White Blood Count 8.0 x10^3/uL (4.0-11.0) Red Blood Count 4.42 x10^6/uL (3.50-5.40) Hemoglobin 11.4 g/dL (12.0-15.5) Hematocrit 34.4 % (36.0-47.0) Mean Corpuscular Volume 78 fL (79-100) Mean Corpuscular Hemoglobin 26 pg (25-35) Mean Corpuscular Hemoglobin Concent 33 g/dL (31-37) Red Cell Distribution Width 25.2 % (11.5-14.5) Platelet Count 261 x10^3/uL (140-400) Neutrophils (%) (Auto) 63 % (31-73) Lymphocytes (%) (Auto) 26 % (24-48) Monocytes (%) (Auto) 8 % (0-9) Eosinophils (%) (Auto) 3 % (0-3) Basophils (%) (Auto) 0 % (0-3) Neutrophils # (Auto) 5.1 x10^3uL (1.8-7.7) Lymphocytes # (Auto) 2.0 x10^3/uL (1.0-4.8) Monocytes # (Auto) 0.7 x10^3/uL (0.0-1.1) Eosinophils # (Auto) 0.2 x10^3/uL (0.0-0.7) Basophils # (Auto) 0.0 x10^3/uL (0.0-0.2) Sodium Level 137 mmol/L (136-145) Potassium Level 3.7 mmol/L (3.5-5.1) Chloride Level 102 mmol/L (98-107) Carbon Dioxide Level 25 mmol/L (21-32) Anion Gap 10 (6-14) Blood Urea Nitrogen 13 mg/dL (7-20) Creatinine 0.8 mg/dL (0.6-1.0) Estimated GFR (Cockcroft-Gault) 84.6 BUN/Creatinine Ratio 16 (6-20) Glucose Level 119 mg/dL (70-99) Calcium Level 9.3 mg/dL (8.5-10.1) Total Bilirubin 0.4 mg/dL (0.2-1.0) Aspartate Amino Transf (AST/SGOT) 17 U/L (15-37) Alanine Aminotransferase (ALT/SGPT) 16 U/L (14-59) Alkaline Phosphatase 77 U/L (46-116) Total Protein 7.5 g/dL (6.4-8.2) Albumin 3.3 g/dL (3.4-5.0) Albumin/Globulin Ratio 0.8 (1.0-1.7) Test 03/06/19 11:14 Glucose (Fingerstick) 103 mg/dL (70-99) Medications Current Medications Iohexol (Omnipaque 300 Mg/ml) 75 ml 1X ONCE IV Last administered on 03/05/19at 11:00; Start 03/05/19 at 11:00; Stop 03/05/19 at 11:02; Status DC Info (CONTRAST GIVEN -- Rx MONITORING) 1 each PRN DAILY PRN MC SEE COMMENTS; Start 03/05/19 at 11:15; Stop 03/07/19 at 11:14 Ondansetron HCl (Zofran) 4 mg PRN Q8HRS PRN IV NAUSEA/VOMITING Last administered on 03/06/19at 11:11; Start 03/05/19 at 13:00; Stop 03/06/19 at 12:59 Morphine Sulfate (Morphine Sulfate) 2 mg PRN Q2HR PRN IV PAIN; Start 03/05/19 at 13:00; Stop 03/06/19 at 12:59 Sodium Chloride 1,000 ml @ 75 mls/hr 1X ONCE IV Last administered on at 13:34; Start 03/05/19 at 13:00; Stop 03/06/19 at 02:19; Status DC Acetaminophen (Tylenol) 650 mg PRN Q6HRS PRN PO PAIN Last administered on at 11:10; Start 03/05/19 at 16:15 Alprazolam (Xanax) 0.25 mg PRN Q8HRS PRN PO ANXIETY / AGITATION; Start at 16:15 Amlodipine Besylate (Norvasc) 10 mg DAILY PO Last administered on 03/06/19 10: 02; Start 03/05/19 at 17:00 Duloxetine HCl (Cymbalta) 60 mg DAILY PO Last administered on 03/06/19 10:01; Start 03/05/19 at 17:00 Albuterol/ Ipratropium (Duoneb) 3 ml RTBID NEB Last administered on 03/06/19 06:22; Start 03/05/19 at 20:00 Metoprolol Succinate (Toprol Xl) 25 mg DAILY PO Last administered on 03/06/19 10:02; Start 03/05/19 at 17:00 Albuterol Sulfate (Ventolin Neb Soln) 2.5 mg PRN Q4HRS PRN NEB SHORTNESS OF BREATH; Start 03/05/19 at 16:30 Ascorbic Acid (Vitamin C) 500 mg DAILY PO Last administered on 03/06/19 10:01 ; Start 03/05/19 at 17:00 Ferrous Sulfate (Feosol) 325 mg DAILYWBKFT PO Last administered on 03/06/19 10 :03; Start 03/05/19 at 17:00 Hydrocortisone Acetate (Anucort-Hc) 25 mg BID PA ; Start 03/05/19 at 21:00 Phenyleph/Shark Oil/Min Oil/Petrol (Preparation H) 1 ranjith PRN Q6HRS PRN RC RECTAL PAIN; Start 03/05/19 at 16:30 Losartan Potassium (Cozaar) 100 mg DAILY PO Last administered on 03/06/19 10: 03; Start 03/05/19 at 17:00 Memantine (Namenda) 10 mg BID PO Last administered on 03/06/19 10:01; Start at 21:00 Pantoprazole Sodium (Protonix) 40 mg DAILYAC PO Last administered on 03/06/19 10:01; Start 03/05/19 at 17:00 Ropinirole HCl (Requip) 3 mg QHS PO Last administered on 03/05/19at 20:59; Start 03/05/19 at 21:00 Spironolactone (Aldactone) 25 mg DAILY PO Last administered on 03/06/19 10:01 ; Start 03/05/19 at 17:00 Insulin Human Lispro (HumaLOG) 0-5 UNITS TIDWMEALS SQ ; Start 03/05/19 at 17:00 Dextrose (Dextrose 50%-Water Syringe) 12.5 gm PRN Q15MIN PRN IV SEE COMMENTS; Start 03/05/19 at 16:15 Albuterol/ Ipratropium (Duoneb) 3 ml STK-MED ONCE .ROUTE ; Start 03/05/19 at 18: 05; Stop 03/05/19 at 18:06; Status DC Throat Lozenges (Cepacol Sore Throat Lozenge) 1 kristyn PRN Q2HRS PRN PO SORE THROAT Last administered on 03/06/19at 10:02; Start 03/05/19 at 20:15 Acetaminophen/ Hydrocodone Bitart (Lortab 7.5/325) 1 tab PRN Q6HRS PRN PO PAIN Last administered on 03/05/19at 20:59; Start 03/05/19 at 20:15 Psyllium Hydrophilic Mucilloid (Metamucil Fiber Packet) 1 pkt QHS PO ; Start at 21:00 Heparin Sodium (Porcine) (Heparin Sodium) 5,000 unit Q8HRS SQ Last administered on 03/05/19at 21:02; Start 03/05/19 at 22:00 Prochlorperazine Edisylate (Compazine) 10 mg PRN Q6HRS PRN IV NAUSEA/VOMITING; Start 03/05/19 at 20:30 Active Scripts Active Duoneb 0.5-3(2.5) Mg/3 Ml (Albuterol/Ipratropium) 3 Ml Ampul.neb 3 Ml NEB BID Alprazolam 0.25 Mg Tablet 0.25 Mg PO PRN Q8HRS PRN Cymbalta (Duloxetine Hcl) 30 Mg Capsule. 60 Mg PO DAILY Vitamin C (Ascorbate Calcium) 500 Mg Tablet 500 Mg PO DAILY 30 Days Slow Release Iron (Ferrous Sulfate) 250 Mg Tablet.er 250 Mg PO DAILY 30 Days Protonix (Pantoprazole Sodium) 40 Mg Granpkt.dr 40 Mg PO DAILY 30 Days Reported Amlodipine Besylate 10 Mg Tablet 10 Mg PO DAILY Metoprolol Succinate ( Xl ) (Metoprolol Succinate) 25 Mg Tab.er.24h 25 Mg PO DAILY Anusol-Hc (Hydrocortisone Acetate) 25 Mg Supp.rect 1 Supp RC BID Analpram Hc 2.5% Cream (Hydrocortisone/Pramoxine) 30 Gm Cream.appl 1 Ranjith RC PRN Q6HRS PRN Tylenol (Acetaminophen) 325 Mg Tablet 650 Mg PO PRN Q6HRS PRN Namenda (Memantine Hcl) 10 Mg Tablet 1 Tab PO BID Losartan Potassium 100 Mg Tablet 100 Mg PO DAILY Spironolactone 25 Mg Tablet 1 Tab PO DAILY Ventolin Hfa Inhaler (Albuterol Sulfate) 18 Gm Hfa.aer.ad 2 Puff INH Q4HRS Requip (Ropinirole Hcl) 1 Mg Tablet 3 Mg PO HS Vitals/I & O Vital Sign - Last 24 Hours 03/05/19 03/05/19 03/05/19 03/05/19 12:32 13:02 13:30 15:00 Temp 98.1 98.3 98.1 98.3 Pulse 84 72 75 71 Resp 16 18 16 B/P (MAP) 168/95 (119) 157/89 (111) 144/90 (108) 166/89 (114) Pulse Ox 94 96 95 O2 Delivery Room Air Room Air Room Air Room Air 03/05/19 03/05/19 03/05/19 03/05/19 17:06 17:07 17:07 18:15 Pulse 71 71 71 B/P (MAP) 166/89 166/89 166/89 Pulse Ox 95 O2 Delivery Room Air 03/05/19 03/05/19 03/05/19 03/05/19 19:00 20:59 22:00 22:38 Temp 98.6 98.6 98.6 98.6 Pulse 77 75 Resp 18 18 B/P (MAP) 132/87 (102) 136/83 (100) Pulse Ox 98 98 98 90 O2 Delivery Room Air Room Air Room Air Room Air 03/06/19 03/06/19 03/06/19 03/06/19 03:00 06:13 07:00 10:02 Temp 98.5 98.4 98.5 98.4 Pulse 80 78 78 Resp 18 18 B/P (MAP) 128/81 (97) 145/78 (100) 145/78 Pulse Ox 90 96 O2 Delivery Room Air Room Air 03/06/19 03/06/19 10:02 10:03 Pulse 78 78 B/P (MAP) 145/78 145/78 Intake and Output 03/05/19 03/05/19 03/06/19 14:59 22:59 06:59 Intake Total 0 ml 480 ml Balance 0 ml 480 ml DAVID DORAN III DO Mar 06, 2019 12:20
--- NOTE | 2019-03-06 19:13 | DS ---
DATE OF DISCHARGE: 03/06/2019 ADMISSION DIAGNOSES: Diarrhea, abdominal pain, enteritis, history of hemicolectomy, chronic obstructive pulmonary disease, diabetes, and hypertension. DISCHARGE DIAGNOSIS: Resolving diarrhea. CONSULTS: General Surgery. PROCEDURES: None. HOSPITAL COURSE: The patient is a pleasant elderly female, well known to our service. We admit her periodically. We had her in the hospital a couple of times in the past month or so. Basically this time, she became constipated and then took a laxative and that caused her to have diarrhea. She presented to the ER for evaluation. She was admitted. This morning, her symptoms have resolved. I examined her. Her heart tones are normal. Her lungs were clear. Abdomen was soft, nontender. Extremities, no edema. We plan to discharge with close outpatient followup. DISPOSITION: Home. ACTIVITY: As tolerated. DIET: Low sodium. MEDICATIONS: Please see the MRAD. We are resuming her home meds. We have not changed anything. TOTAL TIME: 32 minutes. DAVID DORAN DO DR: CINDY/courtney JOB#: [id number] / [id number]
== END 2019-03-06 14:33 | disposition home or self-care (01) | DRG 394 ==
LOC: ER 09:39 → 5 NORTH 12:20
PROVIDERS: ADMIT Internal Medicine; ATTEND Internal Medicine
DX: K52.1 Toxic gastroenteritis and colitis (principal); K56.7 Ileus, unspecified; E11.9 Type 2 diabetes mellitus without complications; E78.00 Pure hypercholesterolemia, unspecified; I10 Essential (primary) hypertension; J44.9 Chronic obstructive pulmonary disease, unspecified; F41.9 Anxiety disorder, unspecified; Z90.49 Acquired absence of other specified parts of digestive tract; Z88.0 Allergy status to penicillin; Z79.899 Other long term (current) drug therapy; Z82.49 Family history of ischemic heart disease and other diseases of the circulatory system; T47.4X5A Adverse effect of other laxatives, initial encounter
CPT/HCPCS: 36415; 74177; 80053; 81001; 82962; 83690; 85025; 85610; 85730; 87086; 94640; J1644; J1815; J2405; J7030; J7620; Q9967; 99285-25

== ENCOUNTER 2020-02-06 06:25 | Emergency (ER) | payer MEDICARE ==
[~2020-02-06] VITALS: Ht 170.2 cm; Wt 75.0 kg
[~2020-02-06 06:25] MED LIST changes: -BISO5TAB2 PO; +BISO5TAB8 PO; +COLE1TAB2 PO; +DOXY100T PO; +DULO60CA6 PO; +LIDO1ADH63 TD; +METF500T11 PO; -METF500T9 PO; -OXYB10TA PO; +OXYB10TA26 PO; -OXYB15TA PO; +OXYB15TA18 PO; +OXYB5TAB10 PO; -OXYB5TAB7 PO; -POTA10TA12 PO; +POTASSIUM CHLO10 ME1 PO
[2020-02-06] MEDS ORDERED: IPRATRPIUM/ALBUTEROL 0.5/2.5MG 3 ML NEBU. NEB ONE (07:00)
[2020-02-06] MEDS ORDERED: methylPREDNISolone SOD SUCC PF 125 MG/2 ML VIAL. IV ONE (07:00)
--- NOTE | 2020-02-06 07:08 | PHYS DOC ---
Past Medical History Past Medical History: COPD, Diabetes-Type II, Hypertension, Other Additional Past Medical Histor: SBO Past Surgical History: Other Additional Past Surgical Histo: PARTIAL PANCREATECTOMY Smoking Status: Current Some Day Smoker Alcohol Use: Occasionally Drug Use: None Adult General Chief Complaint Chief Complaint: SHORTNESS OF BREATH HPI HPI c Patient is a 74 year old female with history of COPD on 4 L of home oxygen, diabetes mellitus, hypertension who presents with complaint of shortness of breath. Patient complaining of intermittent episodes of exertional shortness of breath for the last 4 days with increasing chronic nonproductive cough. Patient complaining of sore throat and mild headache without fever and chills, chest pain, sick contacts, nausea and vomiting, diarrhea and constipation, urinary symptoms, abdominal pain, myalgia. Patient states she took several nebulizer treatments without improvement of her condition. Patient had frequent emergency room visits and hospitalization because of COPD exacerbation. Patient drove herself to the hospital without change portable oxygen and had O2 sat of 91% at room air at arrival to ER with increasing to 98% at 4 L of oxygen. Review of Systems Review of Systems Constitutional: Denies fever or chills [] Eyes: Denies change in visual acuity, redness, or eye pain [] HENT: Denies nasal congestion, report sore throat [] Respiratory: Reports cough and shortness of breath Cardiovascular: No additional information not addressed in HPI [] GI: Denies abdominal pain, nausea, vomiting, bloody stools or diarrhea [] : Denies dysuria or hematuria [] Musculoskeletal: Denies back pain or joint pain [] Integument: Denies rash or skin lesions [] Neurologic: Denies headache, focal weakness or sensory changes [] Endocrine: Denies polyuria or polydipsia [] All other systems were reviewed and found to be within normal limits, except as documented in this note. Current Medications Current Medications Current Medications Medications (Trade) Dose Ordered Sig/Buffy Start Time Stop Time Status Last Admin Dose Admin Albuterol/ Ipratropium (Duoneb) 3 ml 1X ONCE 02/06/20 07:00 02/06/20 07:04 DC 02/06/20 07:30 3 ML Methylprednisolone Sodium Succinate (SOLU-Medrol 125MG VIAL) 125 mg 1X ONCE 02/06/20 07:00 02/06/20 07:04 DC 02/06/20 07:39 125 MG Allergies Allergies Allergies Coded Allergies Type Severity Reaction Last Updated Verified Penicillins Allergy Intermediate 12/16/18 Yes Physical Exam Physical Exam Constitutional: Well developed, well nourished, mild distress, non-toxic appearance. [] HENT: Normocephalic, atraumatic, bilateral external ears normal, oropharynx moist, no oral exudates, nose normal. [] Eyes: PERRLA, EOMI, conjunctiva normal, no discharge. [] Neck: Normal range of motion, no tenderness, supple, no stridor. [] Cardiovascular:Heart rate regular rhythm, no murmur [] Lungs & Thorax: No respiratory distress, mild decrease of air movement bilaterally, no wheezing and rhonchi. Abdomen: Bowel sounds normal, soft, no tenderness, no masses, no pulsatile masses. [] Skin: Warm, dry, no erythema, no rash. [] Back: No tenderness, no CVA tenderness. [] Extremities: No tenderness, no cyanosis, no clubbing, ROM intact, no edema. [] Neurologic: Alert and oriented X 3, normal motor function, normal sensory function, no focal deficits noted. [] Psychologic: Affect normal, judgement normal, mood normal. [] Current Patient Data Vital Signs Vital Signs Date Time Temp Pulse Resp B/P (MAP) Pulse Ox O2 Delivery O2 Flow Rate FiO2 02/06/20 08:36 71 150/85 (106) 97 Room Air 02/06/20 07:35 4.0 02/06/20 06:33 97.0 22 97.0 Lab Values Laboratory Tests Test 02/06/20 06:50 White Blood Count 10.1 x10^3/uL (4.0-11.0) Red Blood Count 4.27 x10^6/uL (3.50-5.40) Hemoglobin 13.0 g/dL (12.0-15.5) Hematocrit 39.3 % (36.0-47.0) Mean Corpuscular Volume 92 fL (79-100) Mean Corpuscular Hemoglobin 31 pg (25-35) Mean Corpuscular Hemoglobin Concent 33 g/dL (31-37) Red Cell Distribution Width 14.2 % (11.5-14.5) Platelet Count 182 x10^3/uL (140-400) Neutrophils (%) (Auto) 73 % (31-73) Lymphocytes (%) (Auto) 17 % (24-48) L Monocytes (%) (Auto) 6 % (0-9) Eosinophils (%) (Auto) 4 % (0-3) H Basophils (%) (Auto) 0 % (0-3) Neutrophils # (Auto) 7.4 x10^3/uL (1.8-7.7) Lymphocytes # (Auto) 1.7 x10^3/uL (1.0-4.8) Monocytes # (Auto) 0.6 x10^3/uL (0.0-1.1) Eosinophils # (Auto) 0.4 x10^3/uL (0.0-0.7) Basophils # (Auto) 0.0 x10^3/uL (0.0-0.2) Sodium Level 143 mmol/L (136-145) Potassium Level 3.7 mmol/L (3.5-5.1) Chloride Level 104 mmol/L (98-107) Carbon Dioxide Level 28 mmol/L (21-32) Anion Gap 11 (6-14) Blood Urea Nitrogen 25 mg/dL (7-20) H Creatinine 0.8 mg/dL (0.6-1.0) Estimated GFR (Cockcroft-Gault) 84.4 BUN/Creatinine Ratio 31 (6-20) H Glucose Level 175 mg/dL (70-99) H Lactic Acid Level 2.0 mmol/L (0.4-2.0) Calcium Level 9.3 mg/dL (8.5-10.1) Total Bilirubin 0.5 mg/dL (0.2-1.0) Aspartate Amino Transferase (AST) 24 U/L (15-37) Alanine Aminotransferase (ALT) 35 U/L (14-59) Alkaline Phosphatase 83 U/L (46-116) Creatine Kinase 191 U/L (26-192) Troponin I Quantitative < 0.017 ng/mL (0.000-0.055) TS-Hzr-J-Type Natriuretic Peptide 140 pg/mL (0-449) Total Protein 7.2 g/dL (6.4-8.2) Albumin 3.9 g/dL (3.4-5.0) Albumin/Globulin Ratio 1.2 (1.0-1.7) Laboratory Tests 02/06/20 06:50 Laboratory Tests 02/06/20 06:50 EKG EKG [] Radiology/Procedures Radiology/Procedures [address] [place] [address] IMAGING REPORT Signed PATIENT: ELLE LATHAM AACCOUNT: [id number] : 1945 LOCATION: ER AGE: 74 SEX: F EXAM STATUS: REG ER ORD. PHYSICIAN: BENEDICTO GARLAND MD REASON: Shortness of breath PROCEDURE: CHEST PA & LATERAL Chest, PA and Lateral: Technique: PA and lateral views of the chest were obtained. History: Shortness of breath. Comparison: 01/21/2020. Findings: The cardiomediastinal silhouette grossly appears unremarkable. Minimal bibasilar lung atelectasis. IMPRESSION: 1. Minimal bibasilar lung atelectasis. Electronically signed by: Bryon Lindquist MD (02/06/2020 7:28 AM) [id number] DICTATED and SIGNED BY: BRYON LINDQUIST MD DATE: 02/06/20727 Course & Med Decision Making Course & Med Decision Making Pertinent Labs and Imaging studies reviewed. (See chart for details) Evaluation of patient in ER showed 74-year-old female patient with complaining of shortness of breath intermittently for the last 4 days. Patient had O2 sat of 98% on 4 L of her home oxygen with unremarkable CBC, CMP, cardiac enzymes and chest x-ray. Patient prefers to go home. Patient treated with nebulizer treatment and prednisone with improvement of her condition. Plan discharge patient home with prescription of doxycycline and Medrol Dosepak and instruction to continue home nebulizer and follow-up with her primary care physician. I've spoken with the patient and/or caregivers. I've explained the patient's condition, diagnosis and treatment plan based on information available to me at this time. I've answered the patient's and/or caregivers questions and addressed any concerns. The patient and/or caregivers have a good understanding the patient's diagnosis, condition and treatment plan as can be expected at this point. Vital signs have been stabilized. The patient's condition is stable for discharge from the emergency department. The patient will pursue further outpatient evaluation with her primary care provider or other designated consulting physician as outlined in the discharge instructions. Patient and/or caregivers are agreeable to this plan of care and follow-up instructions have been explained in detail. The patient and/or caregivers have received these instructions in written format and expressed understanding of these discharge instructions. The patient and her caregivers are aware that if any significant change in condition or worsening of symptoms should prompt him to immediately return to this of the closest emergency department. If an emergent department is not readily available I would encourage him to call 911. Dragon Disclaimer Dragon Disclaimer This electronic medical record was generated, in whole or in part, using a voice recognition dictation system. Departure Departure Impression: Primary Impression: COPD exacerbation Additional Impression: Shortness of breath Disposition: HOME, SELF-CARE (At 0757) Condition: IMPROVED Referrals: MINI TREJO (PCP) Patient Instructions: Chronic Obstructive Pulmonary Disease Exacerbation Additional Instructions: Continue home inhaler Follow-up with your primary care physician in 3-5 days Return to ER if not getting better Scripts Benzonatate (TESSALON PERLE) 100 Mg Capsule 1 CAP PO TID for cough, #21 CAP Prov: BENEDICTO GARLAND MD 02/06/20 Methylprednisolone (MEDROL) 4 Mg Tab.ds.pk 1 PKG PO UD for inflammation, #1 PKG Prov: BENEDICTO GARLAND MD 02/06/20 Doxycycline Hyclate (DOXYCYCLINE HYCLATE) 100 Mg Capsule 1 CAP PO BID, #14 CAP Prov: BENEDICTO GARLAND MD 02/06/20 Problem Qualifiers BENEDICTO GARLAND MD Feb 06, 2020 07:08
[2020-02-06 07:20] LABS: BASO % 0 % (0-3); EOS # 0.4 x10^3/uL (0.0-0.7); EOS % 4 % (0-3); HEMATOCRIT 39.3 % (36.0-47.0); LYMPH # 1.7 x10^3/uL (1.0-4.8); LYMPH % 17 % (24-48); MEAN CORPUSCULAR HEMOGLOBIN 31 pg (25-35); MEAN CORPUSCULAR HGB CONC 33 g/dL (31-37); MEAN CORPUSCULAR VOLUME 92 fL (79-100); MONO # 0.6 x10^3/uL (0.0-1.1); MONO % 6 % (0-9); NEUT # 7.4 x10^3/uL (1.8-7.7); NEUT % 73 % (31-73); PLATELET COUNT 182 x10^3/uL (140-400); RED BLOOD COUNT 4.27 x10^6/uL (3.50-5.40); RED CELL DISTRIBUTION WIDTH 14.2 % (11.5-14.5); WHITE BLOOD COUNT 10.1 x10^3/uL (4.0-11.0)
[2020-02-06 07:27] LABS: CALCIUM 9.3 mg/dL (8.5-10.1); CREATININE 0.8 mg/dL (0.6-1.0); GFR 84.4; POTASSIUM 3.7 mmol/L (3.5-5.1)
--- NOTE | 2020-02-06 07:31 | RAD ---
Chest, PA and Lateral: Technique: PA and lateral views of the chest were obtained. History: Shortness of breath. Comparison: 01/21/2020. Findings: The cardiomediastinal silhouette grossly appears unremarkable. Minimal bibasilar lung atelectasis. IMPRESSION: 1. Minimal bibasilar lung atelectasis. Electronically signed by: Bryon Lindquist MD (02/06/2020 7:28 AM) [id number]
[2020-02-06 07:33] LABS: ALBUMIN 3.9 g/dL (3.4-5.0); ALBUMIN/GLOBULIN RATIO 1.2 (1.0-1.7); TOTAL BILIRUBIN 0.5 mg/dL (0.2-1.0); TOTAL PROTEIN 7.2 g/dL (6.4-8.2)
[2020-02-06] MEDS ORDERED: DOXY100C2 PO (07:59)
[2020-02-06] MEDS ORDERED: METH4TAB2 PO (07:59)
[2020-02-06] MEDS ORDERED: BENZ100C PO (07:59)
[2020-02-06 08:36] VITALS: BP 150/85
== END 2020-02-06 09:05 | disposition home or self-care (01) ==
LOC: ER 06:25
DX: J44.1 Chronic obstructive pulmonary disease with (acute) exacerbation (principal); E11.9 Type 2 diabetes mellitus without complications; I10 Essential (primary) hypertension; F17.200 Nicotine dependence, unspecified, uncomplicated; Z88.0 Allergy status to penicillin
CPT/HCPCS: 36415; 71046; 80053; 82550; 83605; 83880; 84484; 85025; 94640; 96374; 99285; J2930

== ENCOUNTER 2020-02-26 14:57 | Emergency (ER) | payer MEDICARE ==
[~2020-02-26] VITALS: Ht 170.2 cm; Wt 68.2 kg
[~2020-02-26 14:57] MED LIST changes: +BENZ100C PO; +DOXY100C2 PO; +METH4TAB2 PO
--- NOTE | 2020-02-26 16:10 | PHYS DOC ---
Past Medical History Past Medical History: COPD, Diabetes-Type II, Hypertension, Other Additional Past Medical Histor: SBO Past Surgical History: Other Additional Past Surgical Histo: PARTIAL PANCREATECTOMY Smoking Status: Current Some Day Smoker Alcohol Use: Occasionally Drug Use: None General Adult EDM: Chief Complaint: SHORTNESS OF BREATH HPI: HPI: Patient is a 74 year old AA female who presents to the emergency department with complaints of increased shortness of breath and a dry cough for the last 4 days. Patient reports a history of COPD and states that she wears 4 L of home oxygen by nasal cannula. She also reports a history of high blood pressure and diabetes. She denies any chest pain, palpitations, nausea, vomiting, diarrhea, abdominal pain, body aches, fatigue, or weakness. She denies any headache, fever, or chills. Patient states she took 2 albuterol nebulizer treatments at h ome with no relief of her symptoms. She currently denies any pain. Review of Systems: Review of Systems: Complete ROS is negative unless otherwise noted in HPI. Heart Score: Risk Factors: Risk Factors: DM, Current or recent (<one month) smoker, HTN, HLP, family history of CAD, obesity. Risk Scores: Score 0 - 3: 2.5% MACE over next 6 weeks - Discharge Home Score 4 - 6: 20.3% MACE over next 6 weeks - Admit for Clinical Observation Score 7 - 10: 72.7% MACE over next 6 weeks - Early Invasive Strategies Allergies: Allergies: Allergies Coded Allergies Type Severity Reaction Last Updated Verified Penicillins Allergy Intermediate 12/16/18 Yes Physical Exam: PE: Constitutional: Well developed, well nourished, no acute distress, non-toxic appearance. [] HENT: Normocephalic, atraumatic, bilateral external ears normal, oropharynx moist, no oral exudates, nose normal. [] Eyes: PERRLA, EOMI, conjunctiva normal, no discharge. [] Neck: Normal range of motion, no tenderness, supple, no stridor. [] Cardiovascular:Heart rate regular rhythm, no murmur [] Lungs & Thorax: Bilateral breath sounds clear to auscultation in upper lobes bilaterally, diminished in posterior barnes with scattered expiratory wheezes and crackles; mild increased rate of breathing, no retractions, no grunting, no nasal flaring Abdomen: Soft, no tenderness Skin: Warm, dry, no erythema, no rash. [] Back: No tenderness Extremities: No cyanosis, no clubbing, ROM intact, no edema. [] Neurologic: Alert and oriented X 3, no focal deficits noted. [] Psychologic: Affect normal, judgement normal, mood normal. [] EKG: EK- Sinus arrhythmia, rate 72, no STEMI read by Dr. Alexandra [] Radiology/Procedures: Radiology/Procedures: PROCEDURE: CHEST AP ONLY AP portable chest radiograph 02/26/2020 Clinical History: Shortness of breath. An AP erect portable digital radiograph of the chest was obtained. Comparison study is dated 02/06/2020. The cardiac silhouette is mildly enlarged. The thoracic aorta is tortuous. No acute pulmonary infiltrate is seen. No pleural effusion or pneumothorax is noted. Degenerative changes are seen involving the thoracic spine and both shoulders. Impression: No acute abnormality is seen.[] Course & Med Decision Making: Course & Med Decision Making Pertinent Labs and Imaging studies reviewed. (See chart for details) Patient is a 74-year-old female who presents to the emergency department with complaints of increased shortness of breath for the last 4 days. Patient states she was seen here 2 weeks ago for similar symptoms and states that she feels like the doxycycline that was prescribed that day did not help her. Chest x-ray compared to the previous chest x-ray looks improved. Patient's CBC is unremarkable; PT/INR within normal limits; CMP revealed normal electrolytes, mildly elevated CK 193, CK-MB mass at 4.5, negative troponin less than 0.017. Patient's BNP is 119. Patient was hypertensive throughout her visit. She was given 0.1 mg of clonidine prior to discharge. The patient's blood pressure was improving upon discharge. She was encouraged to stay at home to avoid exposure to the COVID-19 pandemic that is currently having an impact on her community. She was advised to follow-up with her primary care doctor about her frequent COPD exacerbations and her high blood pressure this week. Prescription was written for prednisone to begin taking tomorrow February 27, 2020 and a Z-Gerard. The patient was encouraged to continue wearing her home oxygen and using her albuterol nebulizer as previously prescribed. Patient verbalized an understanding of home care, medications, follow-up, and return to ED instructions and was in agreement with the plan of care. COVID-19 CRITERIA: The patient was evaluated during the global COVID-19 pandemic, and that diagnosis was suspected/considered upon their initial presentation. Their evaluation, treatment and testing was consistent with current guidelines for patients who present with complaints or symptoms that may be related to COVID-19. Full PPE with gown, gloves, and N95 respirator was donned for the treatment of this patient. Critical care time 30 minutes. [] Dragon Disclaimer: Dragon Disclaimer: This electronic medical record was generated, in whole or in part, using a voice recognition dictation system. Departure Departure Impression: Primary Impression: COPD exacerbation Additional Impression: HTN (hypertension) Disposition: HOME, SELF-CARE Condition: STABLE Referrals: MINI TREJO (PCP) Patient Instructions: Chronic Obstructive Pulmonary Disease Exacerbation, [id number] Additional Instructions: Fill prescription(s) and use as directed. Continue taking your home medications and wearing your home oxygen as prescribed. Recommend use of a Cool mist humidifier in room at bedtime. Alternate Tylenol or ibuprofen as needed for pain/fever. Increase clear fluids. Avoid airway triggers such as smoke, frag jordin, dust, and pollen. Follow-up with your primary care doctor this week, return to the ER if symptoms worsen or you develop a fever. Your blood sugars will elevate while taking steroids, keep track of your blood sugar while taking this medication. Scripts Prednisone (PREDNISONE) 20 Mg Tablet 2 TAB PO DAILY for 4 Days, #8 TAB 0 Refills begin taking on 02/27/20 Prov: KRISTY MARISCAL APRN 02/26/20 Azithromycin (AZITHROMYCIN TABLET) 250 Mg Tablet 1 PKG PO UD for 5 Days, #6 TAB 0 Refills 2 the first day followed by 1 for days 2-5 Prov: KRISTY MARISCAL APRN 02/26/20 COVID-19 Assessment: COVID-19 Patient Risks: Age 65 or older: Yes Sign of co-morbidity: Yes Exp to person + for COVID: No Exp to PUI: No Travel from affected area: No Lower respiratory symptoms: No Fever: No Other: No PPE Use: Full PPE with N95 mask or PAPR: Yes (N95 worn) Critical Care Time Critical care time was 30 minutes exclusive of procedures. KRISTY MARISCAL APRN Feb 26, 2020 16:10
[2020-02-26 16:15] LABS: BASO % 1 % (0-3); EOS # 0.4 x10^3/uL (0.0-0.7); EOS % 5 % (0-3); HEMATOCRIT 39.6 % (36.0-47.0); HEMOGLOBIN 13.1 g/dL (12.0-15.5); LYMPH # 1.6 x10^3/uL (1.0-4.8); LYMPH % 23 % (24-48); MEAN CORPUSCULAR HEMOGLOBIN 31 pg (25-35); MEAN CORPUSCULAR HGB CONC 33 g/dL (31-37); MEAN CORPUSCULAR VOLUME 92 fL (79-100); MONO # 0.6 x10^3/uL (0.0-1.1); MONO % 8 % (0-9); NEUT # 4.4 x10^3/uL (1.8-7.7); NEUT % 62 % (31-73); PLATELET COUNT 204 x10^3/uL (140-400); RED CELL DISTRIBUTION WIDTH 13.8 % (11.5-14.5); WHITE BLOOD COUNT 7.1 x10^3/uL (4.0-11.0)
[2020-02-26 16:25] LABS: PROTHROMBIN TIME PATIENT 13.6 SEC (11.7-14.0)
[2020-02-26 16:35] LABS: CALCIUM 9.6 mg/dL (8.5-10.1); CREATININE 0.9 mg/dL (0.6-1.0); GFR 73.7; POTASSIUM 3.6 mmol/L (3.5-5.1)
[2020-02-26 16:40] LABS: ALBUMIN 3.7 g/dL (3.4-5.0); ALBUMIN/GLOBULIN RATIO 0.9 (1.0-1.7); TOTAL BILIRUBIN 0.4 mg/dL (0.2-1.0); TOTAL PROTEIN 7.6 g/dL (6.4-8.2)
--- NOTE | 2020-02-26 16:43 | RAD ---
AP portable chest radiograph 02/26/2020 Clinical History: Shortness of breath. An AP erect portable digital radiograph of the chest was obtained. Comparison study is dated 02/06/2020. The cardiac silhouette is mildly enlarged. The thoracic aorta is tortuous. No acute pulmonary infiltrate is seen. No pleural effusion or pneumothorax is noted. Degenerative changes are seen involving the thoracic spine and both shoulders. Impression: No acute abnormality is seen. Electronically signed by: Ramos Swartz MD (02/26/2020 4:40 PM) [id number]
[2020-02-26] MEDS ORDERED: methylPREDNISolone SOD SUCC PF 125 MG/2 ML VIAL. IV ONE (17:00)
[2020-02-26] MEDS ORDERED: AZIT250T6 PO (17:28)
[2020-02-26] MEDS ORDERED: PRED20TA PO (17:28)
[2020-02-26] MEDS ORDERED: cloNIDine HCL 0.1 MG TABLET PO ONE (17:45)
[2020-02-26 18:11] VITALS: BP 170/101
--- NOTE | 2020-02-26 22:41 | EKG ---
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
== END 2020-02-26 18:25 | disposition home or self-care (01) ==
LOC: ER 14:57
DX: J44.1 Chronic obstructive pulmonary disease with (acute) exacerbation (principal); I10 Essential (primary) hypertension; E11.9 Type 2 diabetes mellitus without complications; F17.200 Nicotine dependence, unspecified, uncomplicated; Z88.0 Allergy status to penicillin
CPT/HCPCS: 36415; 71045; 80053; 82553; 83880; 84484; 85025; 85610; 85730; 93005; 96374; 99285; J2930

== ENCOUNTER → 2020-03-12 | Outpatient (CLI) | payer MEDICARE ==
[2020-02-26 18:11] VITALS: BP 170/101
[~2020-03-12] MED LIST changes: +AZIT250T6 PO; +PRED20TA PO
[2020-03-12 12:53] LABS: BASO # 0.1 x10^3/uL (0.0-0.2); BASO % 1 % (0-3); EOS # 0.5 x10^3/uL (0.0-0.7); EOS % 6 % (0-3); HEMATOCRIT 41.9 % (36.0-47.0); HEMOGLOBIN 13.8 g/dL (12.0-15.5); LYMPH # 1.5 x10^3/uL (1.0-4.8); LYMPH % 20 % (24-48); MEAN CORPUSCULAR HEMOGLOBIN 30 pg (25-35); MEAN CORPUSCULAR HGB CONC 33 g/dL (31-37); MEAN CORPUSCULAR VOLUME 92 fL (79-100); MONO # 0.5 x10^3/uL (0.0-1.1); MONO % 7 % (0-9); NEUT # 5.1 x10^3/uL (1.8-7.7); NEUT % 66 % (31-73); PLATELET COUNT 183 x10^3/uL (140-400); RED BLOOD COUNT 4.56 x10^6/uL (3.50-5.40); RED CELL DISTRIBUTION WIDTH 13.8 % (11.5-14.5); WHITE BLOOD COUNT 7.7 x10^3/uL (4.0-11.0)
[2020-03-12 13:16] LABS: ALBUMIN 3.6 g/dL (3.4-5.0); ALBUMIN/GLOBULIN RATIO 1.1 (1.0-1.7); CALCIUM 9.1 mg/dL (8.5-10.1); CHOLESTEROL/HDL RATIO 2.3; CREATININE 1.1 mg/dL (0.6-1.0); GFR 58.4; POTASSIUM 4.3 mmol/L (3.5-5.1); TOTAL BILIRUBIN 0.5 mg/dL (0.2-1.0); TOTAL PROTEIN 6.8 g/dL (6.4-8.2); URIC ACID 4.9 mg/dL (2.6-6.0)
[2020-03-13 02:07] LABS: HEMOGLOBIN A1C 5.8 % (4.8-5.6)
[2020-03-13 11:44] LABS: BILIRUBIN,URINE NEGATIVE (NEG); CLARITY,URINE CLEAR; COLOR,URINE YELLOW; NITRITE,URINE NEGATIVE (NEG); PROTEIN,URINE NEGATIVE (NEG-TRACE); UROBILINOGEN,URINE 0.2 mg/dL (0.2 mg/dL)
[2020-03-13 11:52] LABS: SQUAMOUS EPITHELIAL CELL,UR MOD /LPF
[2020-03-13 11:53] LABS: BACTERIA,URINE 0 /HPF (0-FEW); RBC,URINE 0 /HPF (0-2); WBC,URINE OCC /HPF (0-4)
== END | disposition home or self-care (01) ==
LOC: LAB 12:22
PROVIDERS: ATTEND Family Medicine
DX: I10 Essential (primary) hypertension (principal); E11.9 Type 2 diabetes mellitus without complications
CPT/HCPCS: 36415; 80053; 80061; 81001; 83036; 84443; 84550; 85025

== ENCOUNTER 2020-04-05 10:24 | Emergency (ER) | payer MEDICARE ==
[~2020-04-05] VITALS: Ht 170.2 cm; Wt 70.0 kg
[~2020-04-05 10:24] MED LIST changes: +METF-658 PO; -METF500T11 PO
[2020-04-05] MEDS ORDERED: IPRATRPIUM/ALBUTEROL 0.5/2.5MG 3 ML NEBU. NEB ONE (11:00)
[2020-04-05] MEDS ORDERED: methylPREDNISolone SOD SUCC PF 125 MG/2 ML VIAL. IV ONE (11:00)
[2020-04-05 11:07] LABS: BASO % 1 % (0-3); EOS # 0.2 x10^3/uL (0.0-0.7); EOS % 3 % (0-3); HEMATOCRIT 37.9 % (36.0-47.0); HEMOGLOBIN 12.6 g/dL (12.0-15.5); LYMPH # 1.1 x10^3/uL (1.0-4.8); LYMPH % 18 % (24-48); MEAN CORPUSCULAR HEMOGLOBIN 31 pg (25-35); MEAN CORPUSCULAR HGB CONC 33 g/dL (31-37); MEAN CORPUSCULAR VOLUME 92 fL (79-100); MONO # 0.5 x10^3/uL (0.0-1.1); MONO % 7 % (0-9); NEUT # 4.7 x10^3/uL (1.8-7.7); NEUT % 72 % (31-73); PLATELET COUNT 173 x10^3/uL (140-400); RED CELL DISTRIBUTION WIDTH 13.5 % (11.5-14.5); WHITE BLOOD COUNT 6.5 x10^3/uL (4.0-11.0)
[2020-04-05 11:14] LABS: CALCIUM 8.8 mg/dL (8.5-10.1); CREATININE 1.2 mg/dL (0.6-1.0); GFR 52.9; POTASSIUM 4.2 mmol/L (3.5-5.1)
[2020-04-05 11:20] LABS: ALBUMIN 3.8 g/dL (3.4-5.0); TOTAL BILIRUBIN 0.5 mg/dL (0.2-1.0); TOTAL PROTEIN 7.5 g/dL (6.4-8.2)
--- NOTE | 2020-04-05 11:22 | RAD ---
EXAM: CHEST AP ONLY 04/05/2020 10:56 AM CLINICAL INDICATION:Shortness of breath COMPARISON:Chest 02/26/2020 TECHNIQUE:AP upright view of the chest FINDINGS:The cardiomediastinal silhouette is unchanged. The lungs are hypoexpanded. There is slightly increased elevation of left hemidiaphragm. No pulmonary edema. Mild right basilar atelectasis. No consolidation, pleural effusion, or pneumothorax. No acute osseous abnormality. IMPRESSION:Hypoexpanded lungs with mild right basilar atelectasis. Electronically signed by: Yadira Cabello MD (04/05/2020 11:19 AM) [id number]
[2020-04-05] MEDS ORDERED: PRED20TA PO (11:38)
--- NOTE | 2020-04-05 11:38 | PHYS DOC ---
Past Medical History Past Medical History: COPD, Diabetes-Type II, Hypertension, Other Additional Past Medical Histor: SBO Past Surgical History: Other Additional Past Surgical Histo: PARTIAL PANCREATECTOMY Smoking Status: Former Smoker Alcohol Use: Occasionally Drug Use: None General Adult EDM: Chief Complaint: SHORTNESS OF BREATH HPI: HPI: Patient is a 74-year-old female with a history of COPD who presents with a 2-day history of progressive shortness of breath cough and congestion. She states this is very typical of her previous bouts of COPD. She has not had any fever chills or sweats. She does not think she has been exposed to anybody with COVID-19. She denies any hemoptysis. She has not had any chest pain. She states she has taken medicines at home but they just have not seemed to work. [] Review of Systems: Review of Systems: Constitutional: Denies fever or chills. [] Eyes: Denies change in visual acuity. [] HENT: Denies nasal congestion or sore throat. [] Respiratory: Per HPI [] Cardiovascular: Denies chest pain or edema. [] GI: Denies abdominal pain, nausea, vomiting, bloody stools or diarrhea. [] : Denies dysuria. [] Musculoskeletal: Denies back pain or joint pain. [] Integument: Denies rash. [] Neurologic: Denies headache, focal weakness or sensory changes. [] Endocrine: Denies polyuria or polydipsia. [] Lymphatic: Denies swollen glands. [] Psychiatric: Denies depression or anxiety. [] Heart Score: Risk Factors: Risk Factors: DM, Current or recent (<one month) smoker, HTN, HLP, family history of CAD, obesity. Risk Scores: Score 0 - 3: 2.5% MACE over next 6 weeks - Discharge Home Score 4 - 6: 20.3% MACE over next 6 weeks - Admit for Clinical Observation Score 7 - 10: 72.7% MACE over next 6 weeks - Early Invasive Strategies Current Medications: Current Medications Medications (Trade) Dose Ordered Sig/Buffy Start Time Stop Time Status Last Admin Dose Admin Albuterol/ Ipratropium (Duoneb) 6 ml 1X ONCE 04/05/20 11:00 04/05/20 11:02 DC 04/05/20 11:19 6 ML Methylprednisolone Sodium Succinate (SOLU-Medrol 125MG VIAL) 125 mg 1X ONCE 04/05/20 11:00 04/05/20 11:02 DC 04/05/20 11:30 125 MG Allergies: Allergies: Allergies Coded Allergies Type Severity Reaction Last Updated Verified Penicillins Allergy Intermediate 04/05/20 Yes Physical Exam: PE: Constitutional: Well developed, well nourished, n mild distress, non-toxic ap pearance. [] HENT: Normocephalic, atraumatic, bilateral external ears normal, oropharynx moist, no oral exudates, nose normal. [] Eyes: PERRLA, EOMI, conjunctiva normal, no discharge. [] Neck: Normal range of motion, no tenderness, supple, no stridor. [] Cardiovascular:Heart rate regular rhythm, no murmur [] Lungs & Thorax: Scattered wheezes throughout both lungs [] Abdomen: Bowel sounds normal, soft, no tenderness, no masses, no pulsatile masses. [] Skin: Warm, dry, no erythema, no rash. [] Back: No tenderness, no CVA tenderness. [] Extremities: No tenderness, no cyanosis, no clubbing, ROM intact, no edema. [] Neurologic: Alert and oriented X 3, normal motor function, normal sensory function, no focal deficits noted. [] Psychologic: Affect normal, judgement normal, mood normal. [] Current Patient Data: Labs: Laboratory Tests Test 04/05/20 10:50 White Blood Count 6.5 x10^3/uL (4.0-11.0) Red Blood Count 4.10 x10^6/uL (3.50-5.40) Hemoglobin 12.6 g/dL (12.0-15.5) Hematocrit 37.9 % (36.0-47.0) Mean Corpuscular Volume 92 fL (79-100) Mean Corpuscular Hemoglobin 31 pg (25-35) Mean Corpuscular Hemoglobin Concent 33 g/dL (31-37) Red Cell Distribution Width 13.5 % (11.5-14.5) Platelet Count 173 x10^3/uL (140-400) Neutrophils (%) (Auto) 72 % (31-73) Lymphocytes (%) (Auto) 18 % (24-48) L Monocytes (%) (Auto) 7 % (0-9) Eosinophils (%) (Auto) 3 % (0-3) Basophils (%) (Auto) 1 % (0-3) Neutrophils # (Auto) 4.7 x10^3/uL (1.8-7.7) Lymphocytes # (Auto) 1.1 x10^3/uL (1.0-4.8) Monocytes # (Auto) 0.5 x10^3/uL (0.0-1.1) Eosinophils # (Auto) 0.2 x10^3/uL (0.0-0.7) Basophils # (Auto) 0.0 x10^3/uL (0.0-0.2) Sodium Level 138 mmol/L (136-145) Potassium Level 4.2 mmol/L (3.5-5.1) Chloride Level 102 mmol/L (98-107) Carbon Dioxide Level 26 mmol/L (21-32) Anion Gap 10 (6-14) Blood Urea Nitrogen 23 mg/dL (7-20) H Creatinine 1.2 mg/dL (0.6-1.0) H Estimated GFR (Cockcroft-Gault) 52.9 BUN/Creatinine Ratio 19 (6-20) Glucose Level 158 mg/dL (70-99) H Calcium Level 8.8 mg/dL (8.5-10.1) Total Bilirubin 0.5 mg/dL (0.2-1.0) Aspartate Amino Transferase (AST) 23 U/L (15-37) Alanine Aminotransferase (ALT) 26 U/L (14-59) Alkaline Phosphatase 94 U/L (46-116) Troponin I Quantitative < 0.017 ng/mL (0.000-0.055) QV-Idp-R-Type Natriuretic Peptide 46 pg/mL (0-449) Total Protein 7.5 g/dL (6.4-8.2) Albumin 3.8 g/dL (3.4-5.0) Albumin/Globulin Ratio 1.0 (1.0-1.7) Laboratory Tests 04/05/20 10:50 Laboratory Tests 04/05/20 10:50 Vital Signs: Vital Signs Date Time Temp Pulse Resp B/P (MAP) Pulse Ox O2 Delivery O2 Flow Rate FiO2 04/05/20 11:19 Nasal Cannula 2.0 04/05/20 10:32 98.1 94 26 135/81 (99) 98 98.1 EKG: EKG: [] Radiology/Procedures: Radiology/Procedures: [] Impression: REASON: soa PROCEDURE: CHEST AP ONLY EXAM: CHEST AP ONLY 04/05/2020 10:56 AM CLINICAL INDICATION:Shortness of breath COMPARISON:Chest 02/26/2020 TECHNIQUE:AP upright view of the chest FINDINGS:The cardiomediastinal silhouette is unchanged. The lungs are hypoexpanded. There is slightly increased elevation of left hemidiaphragm. No pulmonary edema. Mild right basilar atelectasis. No consolidation, pleural effusion, or pneumothorax. No acute osseous abnormality. IMPRESSION:Hypoexpanded lungs with mild right basilar atelectasis. Course & Med Decision Making: Course & Med Decision Making Pertinent Labs and Imaging studies reviewed. (See chart for details) [ED course: Evaluation reveals a 74-year-old female with wheezing typical of her previous COPD. She was given [id number] DuoNeb's and 125 of Solu-Medrol with near complete resolution of her symptoms. She will be discharged to home with steroids.] Raimundo Disclaimer: Raimundo Disclaimer: This electronic medical record was generated, in whole or in part, using a voice recognition dictation system. Departure Departure Impression: Primary Impression: COPD exacerbation Disposition: 01 HOME, SELF-CARE Condition: IMPROVED Referrals: MINI TREJO (PCP) Patient Instructions: Chronic Obstructive Pulmonary Disease Exacerbation Additional Instructions: Return to the emergency department with any new or concerning symptoms Scripts Prednisone (PREDNISONE) 20 Mg Tablet 1 TAB PO TID PRN for COUGH for 5 Days, #15 TAB Prov: TOMER HERNANDEZ DO 04/05/20 TOMER HERNANDEZ DO April 05, 2020 11:38
[2020-04-05 12:11] VITALS: BP 111/60
--- NOTE | 2020-04-05 12:17 | EKG ---
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
== END 2020-04-05 13:00 | disposition home or self-care (01) ==
LOC: ER 10:24
DX: J44.1 Chronic obstructive pulmonary disease with (acute) exacerbation (principal); E11.9 Type 2 diabetes mellitus without complications; I10 Essential (primary) hypertension; Z87.891 Personal history of nicotine dependence; Z90.411 Acquired partial absence of pancreas; Z88.0 Allergy status to penicillin
CPT/HCPCS: 36415; 71045; 80053; 83880; 84484; 85025; 93005; 94640; 96374; 99285; J2930

== ENCOUNTER 2020-04-25 16:21 | Inpatient (IN) | payer MEDICARE ==
[~2020-04-25] VITALS: Ht 170.2 cm; Wt 73.1 kg
[2020-04-25] MEDS ORDERED: IPRATRPIUM/ALBUTEROL 0.5/2.5MG 3 ML NEBU. NEB ONE (17:00)
[2020-04-25] MEDS ORDERED: methylPREDNISolone SOD SUCC PF 125 MG/2 ML VIAL. IV ONE (17:00)
[2020-04-25 17:09] LABS: BASO % 0 % (0-3); EOS # 0.4 x10^3/uL (0.0-0.7); EOS % 7 % (0-3); HEMATOCRIT 36.8 % (36.0-47.0); HEMOGLOBIN 12.5 g/dL (12.0-15.5); LYMPH # 1.6 x10^3/uL (1.0-4.8); LYMPH % 24 % (24-48); MEAN CORPUSCULAR HEMOGLOBIN 31 pg (25-35); MEAN CORPUSCULAR HGB CONC 34 g/dL (31-37); MEAN CORPUSCULAR VOLUME 92 fL (79-100); MONO # 0.4 x10^3/uL (0.0-1.1); MONO % 7 % (0-9); NEUT # 4.1 x10^3/uL (1.8-7.7); NEUT % 62 % (31-73); PLATELET COUNT 197 x10^3/uL (140-400); RED BLOOD COUNT 4.01 x10^6/uL (3.50-5.40); RED CELL DISTRIBUTION WIDTH 13.7 % (11.5-14.5); WHITE BLOOD COUNT 6.6 x10^3/uL (4.0-11.0)
[2020-04-25 17:19] LABS: PROTHROMBIN TIME PATIENT 14.4 SEC (11.7-14.0)
--- NOTE | 2020-04-25 17:19 | RAD ---
PORTABLE CHEST 1V Clinical Indication: Reason: SOA / Spl. Instructions: / History: Comparison: AP chest April 05, 2020. Findings: Tortuous thoracic aorta. Cardiac size is normal. Lungs are clear. There is no pneumothorax. No pleural effusion is appreciated. Bones appear stable. IMPRESSION: No acute cardiopulmonary process. Electronically signed by: Bruno Kinney MD (04/25/2020 5:16 PM) [facility]
[2020-04-25 17:28] LABS: CALCIUM 8.9 mg/dL (8.5-10.1); CREATININE 1.1 mg/dL (0.6-1.0); GFR 58.4; POTASSIUM 3.9 mmol/L (3.5-5.1)
[2020-04-25 17:33] LABS: ALBUMIN 3.6 g/dL (3.4-5.0); MAGNESIUM 1.8 mg/dL (1.8-2.4); TOTAL BILIRUBIN 0.3 mg/dL (0.2-1.0); TOTAL PROTEIN 7.2 g/dL (6.4-8.2)
--- NOTE | 2020-04-25 17:54 | PHYS DOC ---
Past Medical History Past Medical History: COPD, Diabetes-Type II, Hypertension, Other Additional Past Medical Histor: SBO Past Surgical History: Other Additional Past Surgical Histo: PARTIAL PANCREATECTOMY Smoking Status: Current Some Day Smoker Alcohol Use: Occasionally Drug Use: None General Adult EDM: Chief Complaint: SHORTNESS OF BREATH HPI: HPI: Patient is a 74 year old female with a history of COPD current smoker, diabetes type 2, hypertension who presents to the ED today complaining of 2-day episode shortness of breath and coughing. Patient denies any fever. She states her current symptoms are consistent with her COPD. She is on oxygen 1 to 2 L . She states she has tried using her inhaler with no relief. She states typically IV steroids help her. Patient resides at home and denies any concerns for COVID19 exposure Review of Systems: Review of Systems: Constitutional: Denies fever or chills. [] Eyes: Denies change in visual acuity. [] HENT: Denies nasal congestion or sore throat. [] Respiratory: Reports shortness of breath. Reports cough. Cardiovascular: Denies chest pain or edema. [] GI: Denies abdominal pain, nausea, vomiting, bloody stools or diarrhea. [] : Denies dysuria. [] Musculoskeletal: Denies back pain or joint pain. [] Integument: Denies rash. [] Neurologic: Denies headache, focal weakness or sensory changes. [] Endocrine: Denies polyuria or polydipsia. [] Lymphatic: Denies swollen glands. [] Psychiatric: Denies depression or anxiety. [] Heart Score: Risk Factors: Risk Factors: DM, Current or recent (<one month) smoker, HTN, HLP, family history of CAD, obesity. Risk Scores: Score 0 - 3: 2.5% MACE over next 6 weeks - Discharge Home Score 4 - 6: 20.3% MACE over next 6 weeks - Admit for Clinical Observation Score 7 - 10: 72.7% MACE over next 6 weeks - Early Invasive Strategies Current Medications: Current Medications Medications (Trade) Dose Ordered Sig/Buffy Start Time Stop Time Status Last Admin Dose Admin Albuterol/ Ipratropium (Duoneb) 3 ml 1X ONCE 04/25/20 17:00 04/25/20 17:01 DC 04/25/20 17:10 3 ML Methylprednisolone Sodium Succinate (SOLU-Medrol 125MG VIAL) 125 mg 1X ONCE 04/25/20 17:00 04/25/20 17:01 DC Allergies: Allergies: Allergies Coded Allergies Type Severity Reaction Last Updated Verified Penicillins Allergy Intermediate 04/05/20 Yes Physical Exam: PE: Constitutional: Well developed, well nourished, no acute distress, non-toxic appearance. [] HENT: Normocephalic, atraumatic, bilateral external ears normal, oropharynx moist, no oral exudates, nose normal. [] Eyes: PERRLA, EOMI, conjunctiva normal, no discharge. [] Neck: Normal range of motion, no tenderness, supple, no stridor. [] Cardiovascular:Heart rate regular rhythm, no murmur [] Lungs & Thorax: Patient is short of air. Diminished breath sounds to posterior lung bases Abdomen: Bowel sounds normal, soft, no tenderness, no masses, no pulsatile masses. [] Skin: Warm, dry, no erythema, no rash. [] Back: No tenderness, no CVA tenderness. [] Extremities: No tenderness, no cyanosis, no clubbing, ROM intact, no edema. [] Neurologic: Alert and oriented X 3, normal motor function, normal sensory fu nction, no focal deficits noted. [] Psychologic: Affect normal, judgement normal, mood normal. [] Current Patient Data: Labs: Laboratory Tests Test 04/25/20 16:55 White Blood Count 6.6 x10^3/uL (4.0-11.0) Red Blood Count 4.01 x10^6/uL (3.50-5.40) Hemoglobin 12.5 g/dL (12.0-15.5) Hematocrit 36.8 % (36.0-47.0) Mean Corpuscular Volume 92 fL (79-100) Mean Corpuscular Hemoglobin 31 pg (25-35) Mean Corpuscular Hemoglobin Concent 34 g/dL (31-37) Red Cell Distribution Width 13.7 % (11.5-14.5) Platelet Count 197 x10^3/uL (140-400) Neutrophils (%) (Auto) 62 % (31-73) Lymphocytes (%) (Auto) 24 % (24-48) Monocytes (%) (Auto) 7 % (0-9) Eosinophils (%) (Auto) 7 % (0-3) H Basophils (%) (Auto) 0 % (0-3) Neutrophils # (Auto) 4.1 x10^3/uL (1.8-7.7) Lymphocytes # (Auto) 1.6 x10^3/uL (1.0-4.8) Monocytes # (Auto) 0.4 x10^3/uL (0.0-1.1) Eosinophils # (Auto) 0.4 x10^3/uL (0.0-0.7) Basophils # (Auto) 0.0 x10^3/uL (0.0-0.2) Prothrombin Time 14.4 SEC (11.7-14.0) H Prothrombin Time INR 1.2 (0.8-1.1) H Activated Partial Thromboplast Time 30 SEC (24-38) Sodium Level 139 mmol/L (136-145) Potassium Level 3.9 mmol/L (3.5-5.1) Chloride Level 102 mmol/L (98-107) Carbon Dioxide Level 28 mmol/L (21-32) Anion Gap 9 (6-14) Blood Urea Nitrogen 17 mg/dL (7-20) Creatinine 1.1 mg/dL (0.6-1.0) H Estimated GFR (Cockcroft-Gault) 58.4 BUN/Creatinine Ratio 15 (6-20) Glucose Level 197 mg/dL (70-99) H Lactic Acid Level 2.5 mmol/L (0.4-2.0) H Calcium Level 8.9 mg/dL (8.5-10.1) Magnesium Level 1.8 mg/dL (1.8-2.4) Total Bilirubin 0.3 mg/dL (0.2-1.0) Aspartate Amino Transferase (AST) 21 U/L (15-37) Alanine Aminotransferase (ALT) 20 U/L (14-59) Alkaline Phosphatase 124 U/L (46-116) H Troponin I Quantitative < 0.017 ng/mL (0.000-0.055) Total Protein 7.2 g/dL (6.4-8.2) Albumin 3.6 g/dL (3.4-5.0) Albumin/Globulin Ratio 1.0 (1.0-1.7) Procalcitonin < 0.10 ng/mL (0.00-0.10) Thyroid Stimulating Hormone (TSH) 0.553 uIU/mL (0.358-3.74) Laboratory Tests 04/25/20 16:55 Laboratory Tests 04/25/20 16:55 Vital Signs: Vital Signs Date Time Temp Pulse Resp B/P (MAP) Pulse Ox O2 Delivery O2 Flow Rate FiO2 04/25/20 17:10 99 Nasal Cannula 1.0 04/25/20 16:38 97.7 83 21 121/83 (96) 97.7 EKG: EKG: [] Radiology/Procedures: Radiology/Procedures: []PROCEDURE: PORTABLE CHEST 1V PORTABLE CHEST 1V Clinical Indication: Reason: SOA / Spl. Instructions: / History: Comparison: AP chest April 05, 2020. Findings: Tortuous thoracic aorta. Cardiac size is normal. Lungs are clear. There is no pneumothorax. No pleural effusion is appreciated. Bones appear stable. IMPRESSION: No acute cardiopulmonary process. Electronically signed by: Bruno Aguilar MD (04/25/2020 5:16 PM) [facility] DICTATED and SIGNED BY: BRUNO AGUILAR MD DATE: 04/25/20 0166 Course & Med Decision Making: Course & Med Decision Making Pertinent Labs and Imaging studies reviewed. (See chart for details) This is a 74-year-old female patient presenting to the ED today complaining of shortness of breath and a dry cough that began 2 days ago. Patient has history of COPD. She reports symptoms are consistent with her COPD. O2 sats 95% on 2 L of oxygen. Chest x-ray negative for pneumonia. CBC, CMP with no acute findings, lactic acid 2.5. Patient was given DuoNeb treatment and Solu-Medrol IV in the ED, she continued to be short of breath especially on speaking. 1 hour albuterol treatment ordered. Spoke with Dr. Rajan who accepted patient for admission Raimundo Disclaimer: Raimundo Disclaimer: This electronic medical record was generated, in whole or in part, using a voice recognition dictation system. Departure Departure Impression: Primary Impression: COPD (chronic obstructive pulmonary disease) Qualified Codes: J44.9 - Chronic obstructive pulmonary disease, unspecified Additional Impression: Shortness of breath Disposition: ADMITTED INPATIENT Condition: STABLE Referrals: MINI TREJO (PCP) Justicifation of Admission Dx: Justifications for Admission: Justification of Admission Dx: Yes Respiratory Failure: Severe Resp Distress MUTUNGA,LALY BOOKSTORE CLERK Apr 25, 2020 17:54
[2020-04-25] MEDS ORDERED: ALBUTEROL SULFATE 2.5 MG/3 ML NEBU. CONT NEB ONE (18:30)
[2020-04-25] MEDS ORDERED: ACETAMINOPHEN 325 MG TABLET. PO ONE (19:15)
[2020-04-25] MEDS ORDERED: ACETAMINOPHEN 500 MG TABLET PO ONE (19:15)
[2020-04-25] MEDS ORDERED: ONDANSETRON PF 4 MG/2 ML VIAL. IV PRN ×2 (20:45→21:00)
[2020-04-25] MEDS ORDERED: ACETAMINOPHEN 325 MG TABLET. PO PRN ×3 (20:45→23:30)
[2020-04-25] MEDS ORDERED: PATCH REMOVAL. MC SCH (21:00)
[2020-04-25 23:00] VITALS: BP 139/83
--- NOTE | 2020-04-25 23:22 | PDOC1 ---
History and Physical Date of Admission Date of Admission DATE: 04/25/20 TIME: 23:19 Identification/Chief Complaint Chief Complaint Shortness of breath Source Source: Patient History of Present Illness History of Present Illness Ms Mccray is a 73 yo F w/ PMHx COPD, DM2, HTN, and recent right hemicolectomy with a revision, current smoker who presents to the ED c/o shortness of breath and coughing. Patient denies any fever. She states her current symptoms are consistent with her COPD. She is on oxygen 1 to 2 L . She states she has tried using her inhaler with no relief. She states typically IV steroids help her. Patient resides at home and denies any concerns for COVID19 exposure CBC, CMP with no acute findings, lactic acid 2.5. Patient was given DuoNeb treatment and Solu-Medrol IV in the ED, she continued to be short of breath especially on speaking. 1 hour albuterol treatment ordered without significant improvement. Admitted for further care. Past Medical History Cardiovascular: HTN Pulmonary: Asthma, Bronchitis, COPD Past Surgical History Past Surgical History: Colectomy, Colon Resection Family History Family History: Heart Disease Family History: Parent Social History Smoke: 1 pack per day ALCOHOL: none Drugs: None Current Problem List Problem List Problems Medical Problems: (1) COPD (chronic obstructive pulmonary disease) Status: Acute Current Medications Current Medications Current Medications Methylprednisolone Sodium Succinate (SOLU-Medrol 125MG VIAL) 125 mg 1X ONCE IV Last administered on 04/25/20at 18:22; Start 04/25/20 at 17:00; Stop 04/25/20 at 17:01; Status DC Albuterol/ Ipratropium (Duoneb) 3 ml 1X ONCE NEB Last administered on 04/25/20at 17:10; Start 04/25/20 at 17:00; Stop 04/25/20 at 17:01; Status DC Albuterol Sulfate (Ventolin Neb Soln) 10 mg 1X ONCE CONT NEB Last administered on 04/25/20at 18:45; Start 04/25/20 at 18:30; Stop 04/25/20 at 18:31; Status DC Acetaminophen (Tylenol) 1,000 mg 1X ONCE PO ; Start 04/25/20 at 19:15; Stop 04/25/20 at 19:16; Status DC Acetaminophen (Tylenol) 650 mg 1X ONCE PO Last administered on 04/25/20at 19:22; Start 04/25/20 at 19:15; Stop 04/25/20 at 19:16; Status DC Ondansetron HCl (Zofran) 4 mg PRN Q8HRS PRN IV NAUSEA/VOMITING; Start 04/25/20 at 20:45; Stop 04/25/20 at 20:46; Status DC Acetaminophen (Tylenol) 650 mg PRN Q4HRS PRN PO FEVER > 100.3'F; Start 04/25/20 at 20:45; Stop 04/25/20 at 20:46; Status DC Albuterol/ Ipratropium (Duoneb) 3 ml RTQID NEB ; Start 04/26/20 at 08:00; Stop 04/25/20 at 20:46; Status DC Albuterol/ Ipratropium (Duoneb) 3 ml RTQID NEB ; Start 04/26/20 at 08:00; Stop 04/27/20 at 07:59 Ondansetron HCl (Zofran) 4 mg PRN Q8HRS PRN IV NAUSEA/VOMITING; Start 04/25/20 at 21:00; Stop 04/26/20 at 20:44 Acetaminophen (Tylenol) 650 mg PRN Q4HRS PRN PO FEVER > 100.3'F; Start 04/25/20 at 21:00; Stop 04/26/20 at 20:44 Active Scripts Active Duoneb 0.5-3(2.5) Mg/3 Ml (Albuterol/Ipratropium) 3 Ml Ampul.neb 3 Ml NEB BID Alprazolam 0.25 Mg Tablet 0.25 Mg PO PRN Q8HRS PRN Vitamin C (Ascorbate Calcium) 500 Mg Tablet 500 Mg PO DAILY 30 Days Slow Release Iron (Ferrous Sulfate) 250 Mg Tablet.er 250 Mg PO DAILY 30 Days Reported Colestipol Hcl 1 Gm Tablet 1 Tab PO TIDAC Metformin Hcl Er (Metformin Hcl) 500 Mg Tab.er.24h 500 Mg PO DAILYWBKFT Cymbalta (Duloxetine Hcl) 60 Mg Capsule.dr 60 Mg PO BID Lidocaine 1 Each Adh..patch 1 Patch TD DAILY Metoprolol Succinate ( Xl ) (Metoprolol Succinate) 25 Mg Tab.er.24h 25 Mg PO DAILY Tylenol (Acetaminophen) 325 Mg Tablet 650 Mg PO PRN Q6HRS PRN Namenda (Memantine Hcl) 10 Mg Tablet 1 Tab PO BID Losartan Potassium 100 Mg Tablet 100 Mg PO DAILY Spironolactone 25 Mg Tablet 1 Tab PO DAILY Ventolin Hfa Inhaler (Albuterol Sulfate) 18 Gm Hfa.aer.ad 2 Puff INH Q4HRS Requip (Ropinirole Hcl) 1 Mg Tablet 3 Mg PO HS Allergies Allergies: Coded Allergies: Penicillins (Verified Allergy, Intermediate, 04/05/20) ROS General: YES: Fatigue, Malaise; No: Chills, Night Sweats, Appetite, Other PSYCHOLOGICAL ROS: YES: Anxiety; No: Behavioral Disorder, Concentration difficultie, Decreased libido, Depression, Disorientation, Hallucinations, Hostility, Irritablity, Memory difficulties, Mood Swings, Obsessive thoughts, Physical abuse, Sexual abuse, Sleep disturbances, Suicidal ideation, Other Eyes: No Blurry vision, No Decreased vision, No Double vision, No Dry eyes, No Excessive tearing, No Eye Pain, No Itchy Eyes, No Loss of vision, No Photophobia, No Scotomata, No Uses contacts, No Uses glasses, No Other HEENT: No: Heacaches, Visual Changes, Hearing change, Nasal congestion, Nasal discharge, Oral lesions, Sinus pain, Sore Throat, Epistaxis, Sneezing, Snoring, Tinnitus, Vertigo, Vocal changes, Other ALLERGY AND IMMUNOLOGY: No: Hives, Insect Bite Sensitivity, Itchy/Watery Eyes, Nasal Congestion, Post Nasal Drip, Seasonal Allergies, Other Hematological and Lymphatic: No: Bleeding Problems, Blood Clots, Blood Transfusions, Brusing, Night Sweats, Pallor, Swollen Lymph Nodes, Other ENDOCRINE: No: Breast Changes, Galactorrhea, Hair Pattern Changes, Hot Flashes, Malaise/lethargy, Mood Swings, Palpitations, Polydipsia/polyuria, Skin Changes, Temperature Intolerance, Unexpected Weight Changes, Other Breast: No New/Changing Breast Lumps, No Nipple changes, No Nipple discharge, No Other Respiratory: YES: Cough, Shortness of breath, SOB with excertion, Tachypnea, Wheezing; No: Hemoptysis, Orthopnea, Pleuritic Pain, Sputum Changes, Stridor, Other Cardiovascular: No Chest Pain, No Palpitations, No Orthopnea, No Paroxysmal Noc. Dyspnea, No Edema, No Lt Headedness, No Other Gastrointestinal: No Nausea, No Vomiting, No Abdominal Pain, No Diarrhea, No Constipation, No Melena, No Hematochezia, No Other Genitourinary: No Dysuria, No Frequency, No Incontinence, No Hematuria, No Retention, No Discharge, No Urgency, No Pain, No Flank Pain, No Other, No , No , No , No , No , No , No Musculoskeletal: No Gait Disturbance, No Joint Pain, No Joint Stiffness, No Joint Swelling, No Muscle Pain, No Muscular Weakness, No Pain In:, No Swelling In:, No Other Neurological: No Behavorial Changes, No Bowel/Bladder ControlChng, No Confusion, No Dizziness, No Gait Disturbance, No Headaches, No Impaired Coord/balance, No Memory Loss, No Numbness/Tingling, No Seizures, No Speech Problems, No Tremors, No Visual Changes, No Weakness, No Other Skin: No Dry Skin, No Eczema, No Hair Changes, No Lumps, No Mole Changes, No Mottling, No Nail Changes, No Pruritus, No Rash, No Skin Lesion Changes, No Other, No Acne Physical Exam General: Alert, Oriented X3, Cooperative, moderate distress Lungs: Other (Diffuse wheezing) Heart: S1S2, RRR, no thrills, no rubs Abdomen: Normal bowel sounds, Soft, No tenderness, No hepatosplenomegaly, No masses Rectal Exam: not examined Extremities: No clubbing, No cyanosis, No edema, Normal pulses, No tenderness/swelling Skin: No rashes, No breakdown, No significant lesion Neuro: Normal gait, Normal speech, Strength at 5/5 X4 ext, Normal tone, Sensation intact, Cranial nerves 3-12 NL, Reflexes 2+ Psych/Mental Status: Mental status NL, Mood NL Vitals Vitals Vital Signs Date Time Temp Pulse Resp B/P (MAP) Pulse Ox O2 Delivery O2 Flow Rate FiO2 04/25/20 20:39 75 22 121/66 (84) 97 Nasal Cannula 2.0 04/25/20 16:38 97.7 97.7 Labs Labs Laboratory Tests Test 04/25/20 16:55 04/25/20 20:00 White Blood Count 6.6 x10^3/uL (4.0-11.0) Red Blood Count 4.01 x10^6/uL (3.50-5.40) Hemoglobin 12.5 g/dL (12.0-15.5) Hematocrit 36.8 % (36.0-47.0) Mean Corpuscular Volume 92 fL (79-100) Mean Corpuscular Hemoglobin 31 pg (25-35) Mean Corpuscular Hemoglobin Concent 34 g/dL (31-37) Red Cell Distribution Width 13.7 % (11.5-14.5) Platelet Count 197 x10^3/uL (140-400) Neutrophils (%) (Auto) 62 % (31-73) Lymphocytes (%) (Auto) 24 % (24-48) Monocytes (%) (Auto) 7 % (0-9) Eosinophils (%) (Auto) 7 % (0-3) Basophils (%) (Auto) 0 % (0-3) Neutrophils # (Auto) 4.1 x10^3/uL (1.8-7.7) Lymphocytes # (Auto) 1.6 x10^3/uL (1.0-4.8) Monocytes # (Auto) 0.4 x10^3/uL (0.0-1.1) Eosinophils # (Auto) 0.4 x10^3/uL (0.0-0.7) Basophils # (Auto) 0.0 x10^3/uL (0.0-0.2) Prothrombin Time 14.4 SEC (11.7-14.0) Prothromb Time International Ratio 1.2 (0.8-1.1) Activated Partial Thromboplast Time 30 SEC (24-38) Sodium Level 139 mmol/L (136-145) Potassium Level 3.9 mmol/L (3.5-5.1) Chloride Level 102 mmol/L (98-107) Carbon Dioxide Level 28 mmol/L (21-32) Anion Gap 9 (6-14) Blood Urea Nitrogen 17 mg/dL (7-20) Creatinine 1.1 mg/dL (0.6-1.0) Estimated GFR (Cockcroft-Gault) 58.4 BUN/Creatinine Ratio 15 (6-20) Glucose Level 197 mg/dL (70-99) Lactic Acid Level 2.5 mmol/L (0.4-2.0) 0.8 mmol/L (0.4-2.0) Calcium Level 8.9 mg/dL (8.5-10.1) Magnesium Level 1.8 mg/dL (1.8-2.4) Total Bilirubin 0.3 mg/dL (0.2-1.0) Aspartate Amino Transf (AST/SGOT) 21 U/L (15-37) Alanine Aminotransferase (ALT/SGPT) 20 U/L (14-59) Alkaline Phosphatase 124 U/L (46-116) Creatine Kinase 227 U/L (26-192) Creatine Kinase MB (Mass) 5.8 ng/mL (0.0-3.6) Creatine Kinase MB Relative Index 2.6 % (0-4) Troponin I Quantitative < 0.017 ng/mL (0.000-0.055) LF-Stn-Q-Type Natriuretic Peptide 91 pg/mL (0-449) Total Protein 7.2 g/dL (6.4-8.2) Albumin 3.6 g/dL (3.4-5.0) Albumin/Globulin Ratio 1.0 (1.0-1.7) Procalcitonin < 0.10 ng/mL (0.00-0.10) Thyroid Stimulating Hormone (TSH) 0.553 uIU/mL (0.358-3.74) Laboratory Tests Test 04/25/20 16:55 04/25/20 20:00 White Blood Count 6.6 x10^3/uL (4.0-11.0) Red Blood Count 4.01 x10^6/uL (3.50-5.40) Hemoglobin 12.5 g/dL (12.0-15.5) Hematocrit 36.8 % (36.0-47.0) Mean Corpuscular Volume 92 fL (79-100) Mean Corpuscular Hemoglobin 31 pg (25-35) Mean Corpuscular Hemoglobin Concent 34 g/dL (31-37) Red Cell Distribution Width 13.7 % (11.5-14.5) Platelet Count 197 x10^3/uL (140-400) Neutrophils (%) (Auto) 62 % (31-73) Lymphocytes (%) (Auto) 24 % (24-48) Monocytes (%) (Auto) 7 % (0-9) Eosinophils (%) (Auto) 7 % (0-3) Basophils (%) (Auto) 0 % (0-3) Neutrophils # (Auto) 4.1 x10^3/uL (1.8-7.7) Lymphocytes # (Auto) 1.6 x10^3/uL (1.0-4.8) Monocytes # (Auto) 0.4 x10^3/uL (0.0-1.1) Eosinophils # (Auto) 0.4 x10^3/uL (0.0-0.7) Basophils # (Auto) 0.0 x10^3/uL (0.0-0.2) Prothrombin Time 14.4 SEC (11.7-14.0) Prothromb Time International Ratio 1.2 (0.8-1.1) Activated Partial Thromboplast Time 30 SEC (24-38) Sodium Level 139 mmol/L (136-145) Potassium Level 3.9 mmol/L (3.5-5.1) Chloride Level 102 mmol/L (98-107) Carbon Dioxide Level 28 mmol/L (21-32) Anion Gap 9 (6-14) Blood Urea Nitrogen 17 mg/dL (7-20) Creatinine 1.1 mg/dL (0.6-1.0) Estimated GFR (Cockcroft-Gault) 58.4 BUN/Creatinine Ratio 15 (6-20) Glucose Level 197 mg/dL (70-99) Lactic Acid Level 2.5 mmol/L (0.4-2.0) 0.8 mmol/L (0.4-2.0) Calcium Level 8.9 mg/dL (8.5-10.1) Magnesium Level 1.8 mg/dL (1.8-2.4) Total Bilirubin 0.3 mg/dL (0.2-1.0) Aspartate Amino Transf (AST/SGOT) 21 U/L (15-37) Alanine Aminotransferase (ALT/SGPT) 20 U/L (14-59) Alkaline Phosphatase 124 U/L (46-116) Creatine Kinase 227 U/L (26-192) Creatine Kinase MB (Mass) 5.8 ng/mL (0.0-3.6) Creatine Kinase MB Relative Index 2.6 % (0-4) Troponin I Quantitative < 0.017 ng/mL (0.000-0.055) XC-Ivw-Z-Type Natriuretic Peptide 91 pg/mL (0-449) Total Protein 7.2 g/dL (6.4-8.2) Albumin 3.6 g/dL (3.4-5.0) Albumin/Globulin Ratio 1.0 (1.0-1.7) Procalcitonin < 0.10 ng/mL (0.00-0.10) Thyroid Stimulating Hormone (TSH) 0.553 uIU/mL (0.358-3.74) Images Images CXR: Tortuous thoracic aorta. Cardiac size is normal. Lungs are clear. There is no pneumothorax. No pleural effusion is appreciated. Bones appear stable. IMPRESSION: No acute cardiopulmonary process. VTE Prophylaxis Ordered VTE Prophylaxis Devices: Yes VTE Pharmacological Prophylaxi: Yes Assessment/Plan Assessment/Plan A/P: COPD (chronic obstructive pulmonary disease) with acute exacerbation - nebs ordered, steroids Shortness of breath - 2/2 above Acute hypoxic respiratory failure - on chronic hypoxia, likely from smoking with COPD exacerbation, will wean as tolerated DM2 - cont home meds, sliding scale HTN - cont meds Recent right hemicolectomy with a revision - recovered well Current smoker - offered nicotine patch, cessation counseling FEN - ADA diet PPX - lovenox FULL CODE Dispo - inpatient for 2 midnights Justicifation of Admission Dx: Justifications for Admission: Justification of Admission Dx: Yes Acute COPD Exacerbation: Acute COPD Exacerbation FLORY NEAL MD Apr 25, 2020 23:22
[2020-04-25] MEDS ORDERED: ALPRAZolam 0.25 MG TABLET PO PRN (23:30)
[2020-04-26] MEDS ORDERED: NON FORMULARY ITEM (Albuterol Sulfate (Ventolin Hfa Inhaler) 2 PUFF) INH SCH
[2020-04-26] MEDS ORDERED: DEXTROSE 50% 25 GM / 50ML DISP.SYRIN. IV PRN
[2020-04-26 03:00] VITALS: BP 123/69
--- NOTE | 2020-04-26 06:41 | EKG ---
[facility] [address] [place] [address] Test Date: 2020-04-25 Test Time: 17:28:03 Pat Name: ELLE LATAHM Department: Room: [facility] Gender: F Patient Care: : 1945 Requested By: LALY AYALA Order Number: [id number] Reading MD: Serafin Flores Measurements Intervals [place] Rate: 79 P: VT: QRS: 11 QRSD: 84 T: 69 QT: 410 QTc: 471 Interpretive Statements SINUS RHYTHM QRS(T) CONTOUR ABNORMALITY CONSISTENT WITH ANTEROSEPTAL INFARCT PROBABLY OLD Electronically Signed On 04-27-2020 16:30:14 CDT by Serafin Flores
[2020-04-26 07:00] VITALS: BP 115/73
[2020-04-26] MEDS: COLESTIPOL HCL 1 GM TABLET PO SCH ×2 (07:30→11:21)
[2020-04-26] MEDS ORDERED: FERROUS SULFATE 325 MG TABLET. PO SCH (08:00)
[2020-04-26] MEDS ORDERED: IPRATRPIUM/ALBUTEROL 0.5/2.5MG 3 ML NEBU. NEB SCH ×3 (08:00)
[2020-04-26] MEDS ORDERED: metFORMIN XR 500 MG TAB.ER.24H PO SCH (08:00)
[2020-04-26] MEDS: INSULIN LISPRO 300 UNITS/3 ML VIAL. SQ SCH ×2 (08:00→12:00)
[2020-04-26] MEDS ORDERED: MEMANTINE 10 MG TABLET. PO SCH (09:00)
[2020-04-26] MEDS ORDERED: DULoxetine HCL 30 MG CAPSULE.DR PO SCH (09:00)
[2020-04-26] MEDS ORDERED: METOPROLOL SUCC 24HR ER 25 MG TAB.ER.24H. PO SCH (09:00)
[2020-04-26] MEDS ORDERED: LIDOCAINE (700MG/PATCH) PATCH. TD SCH (09:00)
[2020-04-26] MEDS ORDERED: LOSARTAN POTASSIUM 50 MG TABLET. PO SCH (09:00)
[2020-04-26] MEDS ORDERED: ENOXAPARIN 40 MG/0.4 ML SYRINGE. SQ SCH (09:00)
[2020-04-26] MEDS ORDERED: ASCORBIC ACID 500 MG TABLET PO SCH (09:00)
[2020-04-26] MEDS ORDERED: SPIRONOLACTONE 25 MG TABLET PO SCH (09:00)
[2020-04-26 11:00] VITALS: BP 115/72
--- NOTE | 2020-04-26 11:20 | CONS ---
DATE OF CONSULTATION: PULMONARY CONSULTATION ATTENDING PHYSICIAN: Dr. Rajan. REASON FOR CONSULTATION: Dyspnea. HISTORY OF PRESENT ILLNESS: The patient is a 74-year-old who has smoked for 55 years. She is down to 1 cigarette a day. She is on home oxygen 2 liters p.r.n. She came to the hospital. She said she was upset. As a result, she was short of breath. She said she has been coughing. No chest pain, no headaches, no nausea, vomiting, no diarrhea. No history of deep vein thrombosis or pulmonary embolism. Her chest x-ray was reviewed and there was no acute infiltrates or consolidation. She feels better. PAST MEDICAL HISTORY: Significant for COPD. PAST SURGICAL HISTORY: Colectomy. FAMILY HISTORY: Heart disease. SOCIAL HISTORY: Smoker for 55 years. She is down to 1 cigarette a day. REVIEW OF SYSTEMS: Twelve-point system obtained. Pertinent positives discussed in my history of present illness, otherwise noncontributory. All systems that were negative were reviewed as well. ALLERGIES: PENICILLIN. MEDICATIONS: Reviewed as listed in the MRAD including DuoNeb along with she received Solu-Medrol and Lovenox for DVT prophylaxis. PHYSICAL EXAMINATION: VITAL SIGNS: Reviewed. She is afebrile, pulse ox 99% on 3 liters. HEENT: Sclerae nonicteric. NECK: Supple. LUNGS: Clear. No wheezing. CARDIOVASCULAR: With a regular rate. ABDOMEN: Soft, nontender. EXTREMITIES: No pitting edema. LABORATORY DATA: Reviewed. White cell count 6.6, hemoglobin 12.5 and platelets are 197. IMPRESSION: 1. Acute on chronic hypoxic respiratory failure secondary to chronic obstructive pulmonary disease exacerbation triggered by anxiety and possibly mild viral bronchitis. 2. No definite consolidation seen on the chest x-ray. 3. No COVID-19 exposures. She is afebrile. RECOMMENDATIONS: 1. Wean oxygen down to baseline of 2 liters, she uses p.r.n. Currently, she is on continuous. 2. Clinically, she has improved. We will continue with present bronchodilators with DuoNeb. 3. No need for IV steroids. 4. Antibiotics can be withheld. 5. Likely discharge in the next 24 hours. 6. Smoking cessation counseling was also provided. JEF U. CARLIN, MD DR: DAKOTA/courtney JOB#: [id number] / [id number]
[2020-04-26] MEDS: guaiFENesin DM 200MG/20MG 10 ML SYRUP PO PRN ×2 (12:47→13:03)
--- NOTE | 2020-04-26 15:29 | DS ---
DATE OF DISCHARGE: 04/26/2020 ADMISSION DIAGNOSIS: Respiratory failure secondary to chronic obstructive pulmonary disease. DISCHARGE DIAGNOSES: 1. Resolving respiratory failure. 2. Chronic obstructive pulmonary disease. HOSPITAL COURSE: The patient is a pleasant elderly female who has known COPD. We admit her periodically with COPD exacerbation. She was admitted. We consulted Pulmonary Medicine and gave her breathing treatments and oxygen and nebulizers. Today, I saw her and examined her, she is at her baseline. I gave her a prescription for p.o. antibiotics. We plan to discharge. DISPOSITION: Home. ACTIVITY: As tolerated. DIET: Low sodium. MEDICATIONS: Please see the MRAD. TOTAL TIME: 38 minutes. DAVID DORAN DO DR: CINDY/courtney JOB#: [id number] / [id number]
[2020-04-26] MEDS ORDERED: rOPINIRole 1 MG TABLET. PO SCH (21:00)
== END 2020-04-26 15:46 | disposition home or self-care (01) | DRG 189 ==
LOC: ER 16:21 → 6 SOUTH 19:02 → ER 20:46
PROVIDERS: ADMIT Internal Medicine; ATTEND Internal Medicine
DX: J96.21 Acute and chronic respiratory failure with hypoxia (principal); J44.1 Chronic obstructive pulmonary disease with (acute) exacerbation; E11.9 Type 2 diabetes mellitus without complications; I10 Essential (primary) hypertension; F41.9 Anxiety disorder, unspecified; F17.210 Nicotine dependence, cigarettes, uncomplicated; Z90.411 Acquired partial absence of pancreas; Z71.6 Tobacco abuse counseling; Z90.49 Acquired absence of other specified parts of digestive tract; Z82.49 Family history of ischemic heart disease and other diseases of the circulatory system
CPT/HCPCS: 36415; 71045; 80053; 82553; 82962; 83605; 83735; 83880; 84145; 84443; 84484; 85025; 85610; 85730; 87040; 93005; 94640; 94760; 96361; 96374; J1650; J1815; J2930; 99285-25; G0378; J7613

== ENCOUNTER 2020-04-28 08:35 | Inpatient (IN) | payer MEDICARE ==
[~2020-04-28] VITALS: Ht 170.2 cm; Wt 74.0 kg
[2020-04-28] MEDS ORDERED: methylPREDNISolone SOD SUCC PF 125 MG/2 ML VIAL. IV ONE (09:00)
[2020-04-28] MEDS ORDERED: IPRATRPIUM/ALBUTEROL 0.5/2.5MG 3 ML NEBU. NEB ONE (09:00)
--- NOTE | 2020-04-28 09:41 | RAD ---
EXAM: AP View of the chest DATE: 04/28/2020 8:57 AM INDICATION: Shortness of air COMPARISON: 04/25/2020 FINDINGS: The heart is not enlarged. Aorta is tortuous. Patchy opacities left greater than right lung bases likely atelectasis. No pleural effusion or pneumothorax. Patient is rotated to the right limiting evaluation. IMPRESSION: 1. Patchy opacities left greater than right lung base likely atelectasis. 2. No radiographic evidence for acute cardiopulmonary process. Electronically signed by: Martín Pérez MD (04/28/2020 9:38 AM) [facility]
[2020-04-28 09:51] LABS: BASO % 0 % (0-3); EOS # 0.4 x10^3/uL (0.0-0.7); EOS % 6 % (0-3); HEMATOCRIT 37.3 % (36.0-47.0); HEMOGLOBIN 12.4 g/dL (12.0-15.5); LYMPH # 1.2 x10^3/uL (1.0-4.8); LYMPH % 17 % (24-48); MEAN CORPUSCULAR HEMOGLOBIN 31 pg (25-35); MEAN CORPUSCULAR HGB CONC 33 g/dL (31-37); MEAN CORPUSCULAR VOLUME 93 fL (79-100); MONO # 0.4 x10^3/uL (0.0-1.1); MONO % 6 % (0-9); NEUT % 71 % (31-73); PLATELET COUNT 192 x10^3/uL (140-400); RED BLOOD COUNT 4.01 x10^6/uL (3.50-5.40); RED CELL DISTRIBUTION WIDTH 13.7 % (11.5-14.5)
[2020-04-28 10:02] LABS: CALCIUM 9.1 mg/dL (8.5-10.1); CREATININE 1.2 mg/dL (0.6-1.0); GFR 52.9; POTASSIUM 4.2 mmol/L (3.5-5.1)
[2020-04-28 10:08] LABS: ALBUMIN 3.6 g/dL (3.4-5.0); TOTAL BILIRUBIN 0.3 mg/dL (0.2-1.0); TOTAL PROTEIN 7.2 g/dL (6.4-8.2)
[2020-04-28] MEDS ORDERED: MAGNESIUM SULFATE 1GM 100 ML IV ONE (11:45)
--- NOTE | 2020-04-28 12:28 | PDOC1 ---
History and Physical Date of Admission Date of Admission DATE: 04/28/20 TIME: 12:27 Identification/Chief Complaint Chief Complaint Shortness of breath Source Source: Patient History of Present Illness History of Present Illness Ms Mccray is a 73 yo F w/ PMHx COPD on 1 to 2 L home O2, DM2, HTN, and recent right hemicolectomy with a revision, current smoker who presents to the ED c/o shortness of breath and coughing. Patient denies any fever. She was just admitted here, discharged home couple days ago for COPD exacerbation and went back to smoking at least 1 cigarette per day. Patient denies any fever, no chest pain, no abdominal pain, no nausea or vomiting. She has been having diarrhea, improved with immodium. She states she has tried using her inhaler with no relief. Patient was given DuoNeb treatment and Solu-Medrol IV in the ED, she continued to be short of breath especially on speaking. 4x breathing treatments ordered without significant improvement. She was hypoxic requiring increase of her O2 to 4 L nasal cannula. CXR with bibasilar opacities left greater than right. Labs significant for NA 143 K4.2 BUN 22, CR 1.2, glucose 140 magnesium 1.7. EKG heart rate of 99 bpm, sinus tachycardia, no ST segment elevation. Admitted for further care. Past Medical History Cardiovascular: HTN Pulmonary: Asthma, Bronchitis, COPD Past Surgical History Past Surgical History: Colectomy, Colon Resection Family History Family History: Heart Disease Family History: Parent Social History Smoke: <1 pack per day (Light smoker) ALCOHOL: none Drugs: None Current Medications Current Medications Current Medications Albuterol/ Ipratropium (Duoneb) 3 ml 1X ONCE NEB Last administered on 04/28/20at 09:02; Start 04/28/20 at 09:00; Stop 04/28/20 at 09:01; Status DC Methylprednisolone Sodium Succinate (SOLU-Medrol 125MG VIAL) 125 mg 1X ONCE IV Last administered on 04/28/20at 09:25; Start 04/28/20 at 09:00; Stop 04/28/20 at 09:01; Status DC Magnesium Sulfate/ Dextrose 100 ml @ 100 mls/hr 1X ONCE IV ; Start 04/28/20 at 11:45; Stop 04/28/20 at 12:44 Active Scripts Active Duoneb 0.5-3(2.5) Mg/3 Ml (Albuterol/Ipratropium) 3 Ml Ampul.neb 3 Ml NEB BID Alprazolam 0.25 Mg Tablet 0.25 Mg PO PRN Q8HRS PRN Vitamin C (Ascorbate Calcium) 500 Mg Tablet 500 Mg PO DAILY 30 Days Slow Release Iron (Ferrous Sulfate) 250 Mg Tablet.er 250 Mg PO DAILY 30 Days Reported Colestipol Hcl 1 Gm Tablet 1 Tab PO TIDAC Metformin Hcl Er (Metformin Hcl) 500 Mg Tab.er.24h 500 Mg PO DAILYWBKFT Cymbalta (Duloxetine Hcl) 60 Mg Capsule.dr 60 Mg PO BID Lidocaine 1 Each Adh..patch 1 Patch TD DAILY Metoprolol Succinate ( Xl ) (Metoprolol Succinate) 25 Mg Tab.er.24h 25 Mg PO DAILY Tylenol (Acetaminophen) 325 Mg Tablet 650 Mg PO PRN Q6HRS PRN Namenda (Memantine Hcl) 10 Mg Tablet 1 Tab PO BID Losartan Potassium 100 Mg Tablet 100 Mg PO DAILY Spironolactone 25 Mg Tablet 1 Tab PO DAILY Ventolin Hfa Inhaler (Albuterol Sulfate) 18 Gm Hfa.aer.ad 2 Puff INH Q4HRS Requip (Ropinirole Hcl) 1 Mg Tablet 3 Mg PO HS Allergies Allergies: Coded Allergies: Penicillins (Verified Allergy, Intermediate, 04/05/20) ROS General: YES: Fatigue, Malaise; No: Chills, Night Sweats, Appetite, Other PSYCHOLOGICAL ROS: No: Anxiety, Behavioral Disorder, Concentration difficultie, Decreased libido, Depression, Disorientation, Hallucinations, Hostility, Irritablity, Memory difficulties, Mood Swings, Obsessive thoughts, Physical abuse, Sexual abuse, Sleep disturbances, Suicidal ideation, Other Eyes: No Blurry vision, No Decreased vision, No Double vision, No Dry eyes, No Excessive tearing, No Eye Pain, No Itchy Eyes, No Loss of vision, No Photophobia, No Scotomata, No Uses contacts, No Uses glasses, No Other HEENT: No: Heacaches, Visual Changes, Hearing change, Nasal congestion, Nasal discharge, Oral lesions, Sinus pain, Sore Throat, Epistaxis, Sneezing, Snoring, Tinnitus, Vertigo, Vocal changes, Other ALLERGY AND IMMUNOLOGY: No: Hives, Insect Bite Sensitivity, Itchy/Watery Eyes, Nasal Congestion, Post Nasal Drip, Seasonal Allergies, Other Hematological and Lymphatic: No: Bleeding Problems, Blood Clots, Blood Transfusions, Brusing, Night Sweats, Pallor, Swollen Lymph Nodes, Other ENDOCRINE: No: Breast Changes, Galactorrhea, Hair Pattern Changes, Hot Flashes, Malaise/lethargy, Mood Swings, Palpitations, Polydipsia/polyuria, Skin Changes, Temperature Intolerance, Unexpected Weight Changes, Other Breast: No New/Changing Breast Lumps, No Nipple changes, No Nipple discharge, No Other Respiratory: YES: Cough, Shortness of breath, SOB with excertion, Tachypnea, Wheezing; No: Hemoptysis, Orthopnea, Pleuritic Pain, Sputum Changes, Stridor, Other Cardiovascular: No Chest Pain, No Palpitations, No Orthopnea, No Paroxysmal Noc. Dyspnea, No Edema, No Lt Headedness, No Other Gastrointestinal: No Nausea, No Vomiting, No Abdominal Pain, No Diarrhea, No Constipation, No Melena, No Hematochezia, No Other Genitourinary: No Dysuria, No Frequency, No Incontinence, No Hematuria, No Retention, No Discharge, No Urgency, No Pain, No Flank Pain, No Other, No , No , No , No , No , No , No Musculoskeletal: No Gait Disturbance, No Joint Pain, No Joint Stiffness, No Joint Swelling, No Muscle Pain, No Muscular Weakness, No Pain In:, No Swelling In:, No Other Neurological: No Behavorial Changes, No Bowel/Bladder ControlChng, No Confusion, No Dizziness, No Gait Disturbance, No Headaches, No Impaired Coord/balance, No Memory Loss, No Numbness/Tingling, No Seizures, No Speech Problems, No Tremors, No Visual Changes, No Weakness, No Other Skin: No Dry Skin, No Eczema, No Hair Changes, No Lumps, No Mole Changes, No Mottling, No Nail Changes, No Pruritus, No Rash, No Skin Lesion Changes, No Other, No Acne Physical Exam General: Alert, Oriented X3, Cooperative, moderate distress HEENT: Atraumatic, PERRLA, EOMI, Mucous membr. moist/pink Lungs: Other (Diffuse wheezing) Heart: S1S2, RRR, no thrills, no rubs, no gallops, no murmurs Abdomen: Normal bowel sounds, Soft, No tenderness, No hepatosplenomegaly, No masses Rectal Exam: not examined Extremities: No clubbing, No cyanosis, No edema, Normal pulses, No tenderness/swelling Skin: No rashes, No breakdown, No significant lesion Neuro: Normal gait, Normal speech, Strength at 5/5 X4 ext, Normal tone, Sensation intact, Cranial nerves 3-12 NL, Reflexes 2+ Psych/Mental Status: Mental status NL, Mood NL Vitals Vitals Vital Signs Date Time Temp Pulse Resp B/P (MAP) Pulse Ox O2 Delivery O2 Flow Rate FiO2 04/28/20 11:55 77 21 111/74 (86) 97 Nasal Cannula 2.0 04/28/20 09:06 97.9 97.9 Labs Labs Laboratory Tests Test 04/28/20 09:36 White Blood Count 7.0 x10^3/uL (4.0-11.0) Red Blood Count 4.01 x10^6/uL (3.50-5.40) Hemoglobin 12.4 g/dL (12.0-15.5) Hematocrit 37.3 % (36.0-47.0) Mean Corpuscular Volume 93 fL (79-100) Mean Corpuscular Hemoglobin 31 pg (25-35) Mean Corpuscular Hemoglobin Concent 33 g/dL (31-37) Red Cell Distribution Width 13.7 % (11.5-14.5) Platelet Count 192 x10^3/uL (140-400) Neutrophils (%) (Auto) 71 % (31-73) Lymphocytes (%) (Auto) 17 % (24-48) Monocytes (%) (Auto) 6 % (0-9) Eosinophils (%) (Auto) 6 % (0-3) Basophils (%) (Auto) 0 % (0-3) Neutrophils # (Auto) 5.0 x10^3/uL (1.8-7.7) Lymphocytes # (Auto) 1.2 x10^3/uL (1.0-4.8) Monocytes # (Auto) 0.4 x10^3/uL (0.0-1.1) Eosinophils # (Auto) 0.4 x10^3/uL (0.0-0.7) Basophils # (Auto) 0.0 x10^3/uL (0.0-0.2) Sodium Level 143 mmol/L (136-145) Potassium Level 4.2 mmol/L (3.5-5.1) Chloride Level 105 mmol/L (98-107) Carbon Dioxide Level 28 mmol/L (21-32) Anion Gap 10 (6-14) Blood Urea Nitrogen 22 mg/dL (7-20) Creatinine 1.2 mg/dL (0.6-1.0) Estimated GFR (Cockcroft-Gault) 52.9 BUN/Creatinine Ratio 18 (6-20) Glucose Level 140 mg/dL (70-99) Calcium Level 9.1 mg/dL (8.5-10.1) Magnesium Level 1.7 mg/dL (1.8-2.4) Total Bilirubin 0.3 mg/dL (0.2-1.0) Aspartate Amino Transf (AST/SGOT) 14 U/L (15-37) Alanine Aminotransferase (ALT/SGPT) 23 U/L (14-59) Alkaline Phosphatase 115 U/L (46-116) Troponin I Quantitative < 0.017 ng/mL (0.000-0.055) YF-Bqe-V-Type Natriuretic Peptide 94 pg/mL (0-449) Total Protein 7.2 g/dL (6.4-8.2) Albumin 3.6 g/dL (3.4-5.0) Albumin/Globulin Ratio 1.0 (1.0-1.7) Laboratory Tests Test 04/28/20 09:36 White Blood Count 7.0 x10^3/uL (4.0-11.0) Red Blood Count 4.01 x10^6/uL (3.50-5.40) Hemoglobin 12.4 g/dL (12.0-15.5) Hematocrit 37.3 % (36.0-47.0) Mean Corpuscular Volume 93 fL (79-100) Mean Corpuscular Hemoglobin 31 pg (25-35) Mean Corpuscular Hemoglobin Concent 33 g/dL (31-37) Red Cell Distribution Width 13.7 % (11.5-14.5) Platelet Count 192 x10^3/uL (140-400) Neutrophils (%) (Auto) 71 % (31-73) Lymphocytes (%) (Auto) 17 % (24-48) Monocytes (%) (Auto) 6 % (0-9) Eosinophils (%) (Auto) 6 % (0-3) Basophils (%) (Auto) 0 % (0-3) Neutrophils # (Auto) 5.0 x10^3/uL (1.8-7.7) Lymphocytes # (Auto) 1.2 x10^3/uL (1.0-4.8) Monocytes # (Auto) 0.4 x10^3/uL (0.0-1.1) Eosinophils # (Auto) 0.4 x10^3/uL (0.0-0.7) Basophils # (Auto) 0.0 x10^3/uL (0.0-0.2) Sodium Level 143 mmol/L (136-145) Potassium Level 4.2 mmol/L (3.5-5.1) Chloride Level 105 mmol/L (98-107) Carbon Dioxide Level 28 mmol/L (21-32) Anion Gap 10 (6-14) Blood Urea Nitrogen 22 mg/dL (7-20) Creatinine 1.2 mg/dL (0.6-1.0) Estimated GFR (Cockcroft-Gault) 52.9 BUN/Creatinine Ratio 18 (6-20) Glucose Level 140 mg/dL (70-99) Calcium Level 9.1 mg/dL (8.5-10.1) Magnesium Level 1.7 mg/dL (1.8-2.4) Total Bilirubin 0.3 mg/dL (0.2-1.0) Aspartate Amino Transf (AST/SGOT) 14 U/L (15-37) Alanine Aminotransferase (ALT/SGPT) 23 U/L (14-59) Alkaline Phosphatase 115 U/L (46-116) Troponin I Quantitative < 0.017 ng/mL (0.000-0.055) IY-Qxt-W-Type Natriuretic Peptide 94 pg/mL (0-449) Total Protein 7.2 g/dL (6.4-8.2) Albumin 3.6 g/dL (3.4-5.0) Albumin/Globulin Ratio 1.0 (1.0-1.7) Images Images CXR: The heart is not enlarged. Aorta is tortuous. Patchy opacities left greater than right lung bases likely atelectasis. No pleural effusion or pneumothorax. Patient is rotated to the right limiting evaluation. IMPRESSION: 1. Patchy opacities left greater than right lung base likely atelectasis. 2. No radiographic evidence for acute cardiopulmonary process. VTE Prophylaxis Ordered VTE Prophylaxis Devices: Yes VTE Pharmacological Prophylaxi: Yes Assessment/Plan Assessment/Plan A/P: COPD (chronic obstructive pulmonary disease) with acute exacerbation - nebs ordered, steroids. Consult pulm Shortness of breath - 2/2 above Abnormal CXR - will give antibiotics for bronchitis, early pneumonia, likely gram negative infection/atypical Acute hypoxic respiratory failure - on chronic hypoxia, likely from smoking with COPD exacerbation, will wean as tolerated DM2 - cont home meds, sliding scale HTN - cont meds Recent right hemicolectomy with a revision - recovered well Current smoker - offered nicotine patch, cessation counseling Diarrhea - if x3 will check c diff. No leukocytosis, this is less likely FEN - ADA diet PPX - lovenox FULL CODE Dispo - inpatient for 2 midnights Justicifation of Admission Dx: Justifications for Admission: Justification of Admission Dx: Yes Acute COPD Exacerbation: Acute COPD Exacerbation FLORY NEAL MD Apr 28, 2020 12:28
[2020-04-28] MEDS ORDERED: MAGNESIUM SULFATE 2GM 50 ML IV ONE (12:30)
[2020-04-28] MEDS ORDERED: ONDANSETRON PF 4 MG/2 ML VIAL. IV PRN ×2 (12:30→16:30)
--- NOTE | 2020-04-28 12:34 | PHYS DOC ---
Past Medical History Past Medical History: COPD, Diabetes-Type II, Hypertension, Other Additional Past Medical Histor: SBO Past Surgical History: Tonsillectomy, Other Additional Past Surgical Histo: PARTIAL PANCREATECTOMY Smoking Status: Light Tobacco Smoker Alcohol Use: Occasionally Drug Use: None General Adult EDM: Chief Complaint: SHORTNESS OF BREATH HPI: HPI: Patient is a 74 year old female who was presenting with shortness of AIR. Patient has history of COPD, she is on 2 L oxygen at home, she is a smoker. Patient was just admitted here, discharged home couple days ago for COPD exacerbation. Patient denies any fever, no chest pain, no abdominal pain, no nausea or vomiting. Patient states she woke up this morning with severe trouble breathing, Tried her breathing treatment but did not get better so she came here. Review of Systems: Review of Systems: Constitutional: Denies fever or chills. [] Eyes: Denies change in visual acuity. [] HENT: Denies nasal congestion or sore throat. [] Respiratory: positive for shortness of air, cough Cardiovascular: Denies chest pain or edema. [] GI: Denies abdominal pain, nausea, vomiting, bloody stools or diarrhea. [] : Denies dysuria. [] Musculoskeletal: Denies back pain or joint pain. [] Integument: Denies rash. [] Neurologic: Denies headache, focal weakness or sensory changes. [] Endocrine: Denies polyuria or polydipsia. [] Lymphatic: Denies swollen glands. [] Psychiatric: Denies depression or anxiety. [] Heart Score: Risk Factors: Risk Factors: DM, Current or recent (<one month) smoker, HTN, HLP, family history of CAD, obesity. Risk Scores: Score 0 - 3: 2.5% MACE over next 6 weeks - Discharge Home Score 4 - 6: 20.3% MACE over next 6 weeks - Admit for Clinical Observation Score 7 - 10: 72.7% MACE over next 6 weeks - Early Invasive Strategies Current Medications: Current Medications Medications (Trade) Dose Ordered Sig/Buffy Start Time Stop Time Status Last Admin Dose Admin Acetaminophen (Tylenol) 650 mg PRN Q6HRS PRN 04/28/20 12:30 Albuterol/ Ipratropium (Duoneb) 3 ml RTBID 04/28/20 20:00 Colestipol HCl (Colestid) 1 gm TIDAC 04/28/20 16:30 UNV Lidocaine (Lidoderm) 1 patch DAILY 04/29/20 09:00 UNV Magnesium Sulfate 50 ml @ 25 mls/hr 1X ONCE 04/28/20 12:30 04/28/20 14:29 Magnesium Sulfate/ Dextrose 100 ml @ 100 mls/hr 1X ONCE 04/28/20 11:45 04/28/20 12:44 Cancel Memantine (Namenda) 10 mg BID 04/28/20 21:00 UNV Methylprednisolone Sodium Succinate (SOLU-Medrol 125MG VIAL) 125 mg 1X ONCE 04/28/20 09:00 04/28/20 09:01 DC 04/28/20 09:25 125 MG Metoprolol Succinate (Toprol Xl) 25 mg DAILY 04/29/20 09:00 UNV Non-Formulary Medication (Albuterol Sulfate (Ventolin Hfa Inhaler)) 2 puff Q4HRS 04/28/20 16:00 UNV Non-Formulary Medication (Ascorbate Calcium (Vitamin C)) 500 mg DAILY 04/29/20 09:00 UNV Non-Formulary Medication (Duloxetine Hcl (Cymbalta)) 60 mg BID 04/28/20 21:00 UNV Ropinirole HCl (Requip) 3 mg HS 04/28/20 21:00 UNV Allergies: Allergies: Allergies Coded Allergies Type Severity Reaction Last Updated Verified Penicillins Allergy Intermediate 04/05/20 Yes Physical Exam: PE: Constitutional: Well developed, well nourished, MODERATE acute distress, non- toxic appearance. [] HENT: Normocephalic, atraumatic, bilateral external ears normal, oropharynx moist, no oral exudates, nose normal. [] Eyes: PERRLA, EOMI, conjunctiva normal, no discharge. [] Neck: Normal range of motion, no tenderness, supple, no stridor. [] Cardiovascular:Heart rate regular rhythm, no murmur [] Lungs & Thorax: DECREASE AIR MOVEMENT WITH DIFFUSE WHEEZING, TACHYPNIC, IN TRIPOD POSITION. Abdomen: Bowel sounds normal, soft, no tenderness, no masses, no pulsatile masses. [] Skin: Warm, dry, no erythema, no rash. [] Back: No tenderness, no CVA tenderness. [] Extremities: No tenderness, no cyanosis, no clubbing, ROM intact, no edema. [] Neurologic: Alert and oriented X 3, normal motor function, normal sensory function, no focal deficits noted. [] Psychologic: Affect normal, judgement normal, mood normal. [] Current Patient Data: Labs: Laboratory Tests Test 04/28/20 09:36 White Blood Count 7.0 x10^3/uL (4.0-11.0) Red Blood Count 4.01 x10^6/uL (3.50-5.40) Hemoglobin 12.4 g/dL (12.0-15.5) Hematocrit 37.3 % (36.0-47.0) Mean Corpuscular Volume 93 fL (79-100) Mean Corpuscular Hemoglobin 31 pg (25-35) Mean Corpuscular Hemoglobin Concent 33 g/dL (31-37) Red Cell Distribution Width 13.7 % (11.5-14.5) Platelet Count 192 x10^3/uL (140-400) Neutrophils (%) (Auto) 71 % (31-73) Lymphocytes (%) (Auto) 17 % (24-48) L Monocytes (%) (Auto) 6 % (0-9) Eosinophils (%) (Auto) 6 % (0-3) H Basophils (%) (Auto) 0 % (0-3) Neutrophils # (Auto) 5.0 x10^3/uL (1.8-7.7) Lymphocytes # (Auto) 1.2 x10^3/uL (1.0-4.8) Monocytes # (Auto) 0.4 x10^3/uL (0.0-1.1) Eosinophils # (Auto) 0.4 x10^3/uL (0.0-0.7) Basophils # (Auto) 0.0 x10^3/uL (0.0-0.2) Sodium Level 143 mmol/L (136-145) Potassium Level 4.2 mmol/L (3.5-5.1) Chloride Level 105 mmol/L (98-107) Carbon Dioxide Level 28 mmol/L (21-32) Anion Gap 10 (6-14) Blood Urea Nitrogen 22 mg/dL (7-20) H Creatinine 1.2 mg/dL (0.6-1.0) H Estimated GFR (Cockcroft-Gault) 52.9 BUN/Creatinine Ratio 18 (6-20) Glucose Level 140 mg/dL (70-99) H Calcium Level 9.1 mg/dL (8.5-10.1) Magnesium Level 1.7 mg/dL (1.8-2.4) L Total Bilirubin 0.3 mg/dL (0.2-1.0) Aspartate Amino Transferase (AST) 14 U/L (15-37) L Alanine Aminotransferase (ALT) 23 U/L (14-59) Alkaline Phosphatase 115 U/L (46-116) Troponin I Quantitative < 0.017 ng/mL (0.000-0.055) VR-Qhf-F-Type Natriuretic Peptide 94 pg/mL (0-449) Total Protein 7.2 g/dL (6.4-8.2) Albumin 3.6 g/dL (3.4-5.0) Albumin/Globulin Ratio 1.0 (1.0-1.7) Laboratory Tests 04/28/20 09:36 Laboratory Tests 04/28/20 09:36 Vital Signs: Vital Signs Date Time Temp Pulse Resp B/P (MAP) Pulse Ox O2 Delivery O2 Flow Rate FiO2 04/28/20 11:55 77 21 111/74 (86) 97 Nasal Cannula 2.0 04/28/20 09:06 97.9 97.9 EKG: EKG: EKG was done at 911, heart rate of 99 bpm, sinus tachycardia, no ST segment elevation. [] Radiology/Procedures: Radiology/Procedures: [][facility] [address] [place] [address] IMAGING REPORT Signed PATIENT: ELLE LATHAM AACCOUNT: [id number] : 1945 LOCATION: ER AGE: 74 SEX: F EXAM STATUS: PRE ER ORD. PHYSICIAN: ROMAN HENNING DO REASON: soa PROCEDURE: PORTABLE CHEST 1V EXAM: AP View of the chest DATE: 04/28/2020 8:57 AM INDICATION: Shortness of air COMPARISON: 04/25/2020 FINDINGS: The heart is not enlarged. Aorta is tortuous. Patchy opacities left greater than right lung bases likely atelectasis. No pleural effusion or pneumothorax. Patient is rotated to the right limiting evaluation. IMPRESSION: 1. Patchy opacities left greater than right lung base likely atelectasis. 2. No radiographic evidence for acute cardiopulmonary process. Electronically signed by: Martín Nicholson MD (04/28/2020 9:38 AM) [id number] DICTATED and SIGNED BY: MARTÍN NICHOLSON MD DATE: 04/28/20 0938 Course & Med Decision Making: Course & Med Decision Making Pertinent Labs and Imaging studies reviewed. (See chart for details) 74-year-old female with COPD exacerbation, patient required to increase oxygen to 4 L, had multiple neb treatment in ER, lower still wheezing, patient IS still not feeling well so she will be admitted to hospital for further treatment. Discussed with Dr. Neal who agreed to admit the patient. Raimundo Disclaimer: Raimundo Disclaimer: This electronic medical record was generated, in whole or in part, using a voice recognition dictation system. Departure Departure Impression: Primary Impression: COPD exacerbation Disposition: ADMITTED INPATIENT Admitting Physician: NILA (DR. NEAL) Condition: IMPROVED Referrals: MINI TREJO (PCP) Justicifation of Admission Dx: Justifications for Admission: Justification of Admission Dx: Yes Acute COPD Exacerbation: Acute COPD Exacerbation ROMAN HENNING DO Apr 28, 2020 12:34
[2020-04-28] MEDS ORDERED: ALBUTEROL SULFATE 2.5 MG/3 ML NEBU. NEB SCH (14:00)
[2020-04-28] MEDS: IPRATRPIUM/ALBUTEROL 0.5/2.5MG 3 ML NEBU. NEB SCH ×2 (15:45→20:13)
[2020-04-28 15:46] VITALS: BP 106/71
[2020-04-28] MEDS ORDERED: NON FORMULARY ITEM (Albuterol Sulfate (Ventolin Hfa Inhaler) 2 PUFF) INH SCH (16:00)
[2020-04-28] MEDS ORDERED: ALBUTEROL SULFATE 2.5 MG/3 ML NEBU. NEB PRN (16:30)
[2020-04-28] MEDS ORDERED: IPRATRPIUM/ALBUTEROL 0.5/2.5MG 3 ML NEBU. NEB PRN (16:30)
[2020-04-28] MEDS: COLESTIPOL HCL 1 GM TABLET PO SCH (17:59)
[2020-04-28] MEDS: DOXYCYCLINE HYCLATE 100 MG in IV DEXTROSE 5% 100ML 100 ML IV SCH (17:59)
[2020-04-28] MEDS: methylPREDNISolone SOD SUCC PF 40 MG/ML VIAL. IV SCH ×2 (18:00→22:06)
[2020-04-28] MEDS: ENOXAPARIN 40 MG/0.4 ML SYRINGE. SQ SCH (18:03)
[2020-04-28 19:00] VITALS: BP 101/69
[2020-04-28] MEDS ORDERED: IPRATRPIUM/ALBUTEROL 0.5/2.5MG 3 ML NEBU. NEB SCH (20:00)
[2020-04-28] MEDS: BUDESONIDE 0.5 MG/2 ML NEBU. NEB SCH (20:13)
[2020-04-28] MEDS: MEMANTINE 10 MG TABLET. PO SCH (22:04)
[2020-04-28] MEDS: DULoxetine HCL 30 MG CAPSULE.DR PO SCH (22:04)
[2020-04-28] MEDS: rOPINIRole 1 MG TABLET. PO SCH (22:05)
[2020-04-28] MEDS: ACETAMINOPHEN 325 MG TABLET. PO PRN (22:05)
[2020-04-28] MEDS: MONTELUKAST SODIUM 10 MG TABLET. PO SCH (22:05)
[2020-04-28 22:53] LABS: BILIRUBIN,URINE NEGATIVE (NEG); CLARITY,URINE CLEAR; COLOR,URINE YELLOW; NITRITE,URINE NEGATIVE (NEG); PROTEIN,URINE NEGATIVE (NEG-TRACE); UROBILINOGEN,URINE 0.2 mg/dL (0.2 mg/dL)
[2020-04-28 22:58] LABS: BACTERIA,URINE FEW /HPF (0-FEW); HYALINE CASTS, URINE FEW /HPF; RBC,URINE 0 /HPF (0-2); SQUAMOUS EPITHELIAL CELL,UR MOD /LPF; WBC,URINE OCC /HPF (0-4)
[2020-04-28 23:00] VITALS: BP 125/77
[2020-04-29 03:00] VITALS: BP 131/84
[2020-04-29 05:33] LABS: BASO % 0 % (0-3); EOS % 0 % (0-3); HEMOGLOBIN 12.2 g/dL (12.0-15.5); LYMPH # 0.8 x10^3/uL (1.0-4.8); LYMPH % 17 % (24-48); MEAN CORPUSCULAR HEMOGLOBIN 31 pg (25-35); MEAN CORPUSCULAR HGB CONC 34 g/dL (31-37); MEAN CORPUSCULAR VOLUME 92 fL (79-100); MONO # 0.1 x10^3/uL (0.0-1.1); MONO % 2 % (0-9); NEUT # 3.8 x10^3/uL (1.8-7.7); NEUT % 81 % (31-73); PLATELET COUNT 184 x10^3/uL (140-400); RED BLOOD COUNT 3.93 x10^6/uL (3.50-5.40); RED CELL DISTRIBUTION WIDTH 13.7 % (11.5-14.5); WHITE BLOOD COUNT 4.7 x10^3/uL (4.0-11.0)
[2020-04-29 05:48] LABS: GFR 65.2; MAGNESIUM 2.3 mg/dL (1.8-2.4); POTASSIUM 4.5 mmol/L (3.5-5.1)
[2020-04-29 07:11] VITALS: BP 139/72
[2020-04-29] MEDS: BUDESONIDE 0.5 MG/2 ML NEBU. NEB SCH ×2 (07:29→20:40)
[2020-04-29] MEDS: IPRATRPIUM/ALBUTEROL 0.5/2.5MG 3 ML NEBU. NEB SCH ×3 (07:30→20:39)
[2020-04-29] MEDS: methylPREDNISolone SOD SUCC PF 40 MG/ML VIAL. IV SCH ×3 (07:59→21:37)
[2020-04-29] MEDS: COLESTIPOL HCL 1 GM TABLET PO SCH ×3 (07:59→16:46)
[2020-04-29] MEDS: ASCORBIC ACID 500 MG TABLET PO SCH (09:14)
[2020-04-29] MEDS: DULoxetine HCL 30 MG CAPSULE.DR PO SCH ×2 (09:15→21:03)
[2020-04-29] MEDS: MEMANTINE 10 MG TABLET. PO SCH ×2 (09:15→21:03)
[2020-04-29] MEDS: DOXYCYCLINE HYCLATE 100 MG in IV DEXTROSE 5% 100ML 100 ML IV SCH ×2 (09:16→21:04)
[2020-04-29] MEDS: METOPROLOL SUCC 24HR ER 25 MG TAB.ER.24H. PO SCH (09:16)
[2020-04-29] MEDS: LIDOCAINE (700MG/PATCH) PATCH. TD SCH (09:17)
[2020-04-29 11:00] VITALS: BP 141/78
--- NOTE | 2020-04-29 11:19 | CONS ---
DATE OF CONSULTATION: 04/29/2020 I was asked to see this 74-year-old lady for acute on chronic respiratory failure, acute exacerbation of COPD. HISTORY OF PRESENT ILLNESS: She does have history of [id number] smoking, continues to smoke about one cigarette per day. She was discharged from [facility] few days ago. She was admitted for COPD exacerbation. She did start smoking. She has had increased shortness of breath and cough and wheezing. She did use her breathing treatment with no improvement, presented to the Emergency Room and was admitted for further evaluation. She is on oxygen 2 liters per minute via nasal cannula at home. She denies fever, chills, body ache. She has stomach pain. PAST MEDICAL HISTORY: COPD, diabetes mellitus, hypertension, status post partial pancreatectomy, tonsillectomy. ALLERGIES: PENICILLIN. MEDICATIONS: Currently, she is on Singulair, Toprol-XL, vitamin C, Cymbalta, Requip, Namenda, Pulmicort, doxycycline, Lovenox 40 mg subcutaneous daily, Solu-Medrol 40 mg IV every 8 hours, DuoNeb q.i.d. SOCIAL HISTORY: History of [id number] smoking, continues to smoke one cigarette per day. FAMILY HISTORY: Hypertension. REVIEW OF SYSTEMS: As mentioned as above. She denies chest pain. Other systems are otherwise negative. PHYSICAL EXAMINATION: GENERAL: This is an overweight lady. VITAL SIGNS: Her O2 saturation is 94%, respiratory rate 18, heart rate 76, blood pressure 139/72, temperature 98. HEENT: Normocephalic, atraumatic. Pupils equal, round, reactive to light. There is shallow oropharynx. Nose is clear. NECK: There is no lymphadenopathy or thyromegaly. CARDIOVASCULAR: Regular rate and rhythm. PMI is nondisplaced. CHEST: Inspection is normal. LUNGS: A few end-expiratory wheezing, dullness at the bases. ABDOMEN: Soft. Bowel sounds are good. There is no mass. EXTREMITIES: There is no edema. LYMPHATICS: There is no lymphadenopathy. NEUROLOGIC: Alert and oriented. SKIN: Chronic changes. LABORATORY DATA: I reviewed the following lab data: Chest x-ray shows patchy opacities, left more than right, atelectasis versus infiltrate. WBC 4.7, hemoglobin 12.2, platelets 184. Sodium 138, potassium 4.5, chloride 102, CO2 of 27, glucose 152, BUN 28, creatinine 1. Troponin less than 0.017. BNP 94 IMPRESSION: 1. Acute on chronic respiratory failure secondary to acute exacerbation of chronic obstructive pulmonary disease, acute bronchitis. 2. Abnormal chest x-ray, infiltrate versus atelectasis. 3. Acute exacerbation of chronic obstructive pulmonary disease. 4. Acute bronchitis. 5. Diabetes mellitus. 6. Hypertension. 7. Tobacco habituation. PLAN AND RECOMMENDATIONS: 1. I had a long discussion with her regarding the smoking cessation, I have advised her to stop smoking forever. 2. Continue Solu-Medrol. She still has a cough and wheezing. 3. Continue antibiotic. 4. I will do CT of the chest to rule out infiltrate. She also has a history of [id number] smoking. 5. Bronchodilator. 6. Inhaled corticosteroid. 7. Lovenox for DVT prophylaxis. 8. Add Protonix for stress ulcer prophylaxis. Thank you very much for allowing me to participate in care of this very nice lady. AMBIKA GONZALEZ M.D. : ADRY/courtney JOB#: [id number] / [id number]
--- NOTE | 2020-04-29 11:22 | PDOC ---
[employer] PROGRESS NOTE Chief Complaint Chief Complaint COPD (chronic obstructive pulmonary disease) with acute exacerbation Possible early pneumonia on chest x-ray Acute hypoxic respiratory failure DM2 HTN Recent right hemicolectomy with a revision Current smoker Diarrhea History of Present Illness History of Present Illness 04/29/2020 Patient seen and examined Discussed with RN Chart reviewed Patient can planes of nausea headache and "feeling like crap" Vitals/I&O Vitals/I&O: Vital Signs Date Time Temp Pulse Resp B/P (MAP) Pulse Ox O2 Delivery O2 Flow Rate FiO2 04/29/20 11:00 98.0 67 18 141/78 (99) 97 Nasal Cannula 2.0 98.0 I & O 04/28/20 04/28/20 04/29/20 15:00 23:00 07:00 Intake Total 50 ml 220 ml 0 ml Output Total 200 ml 225 ml Balance 50 ml 20 ml -225 ml Physical Exam General: Alert, Oriented X3, Cooperative, moderate distress Heart: Regular rate, Normal S1 Lungs: Clear Abdomen: Normal bowel sounds, Soft, No tenderness, No hepatosplenomegaly, No masses Extremities: No clubbing, No cyanosis, No edema, Normal pulses, No tenderness/swelling Skin: No rashes, No breakdown, No significant lesion Labs Labs: Laboratory Tests Test 04/28/20 16:03 04/28/20 20:37 04/28/20 22:25 04/29/20 05:20 Glucose (Fingerstick) 160 mg/dL (70-99) 186 mg/dL (70-99) Urine Collection Type Unknown Urine Color Yellow Urine Clarity Clear Urine pH 5.0 (<5.0-8.0) Urine Specific [place] 1.025 (1.000-1.030) Urine Protein Negative mg/dL (NEG-TRACE) Urine Glucose (UA) Negative mg/dL (NEG) Urine Ketones (Stick) Trace mg/dL (NEG) Urine Blood Negative (NEG) Urine Nitrite Negative (NEG) Urine Bilirubin Negative (NEG) Urine Urobilinogen Dipstick 0.2 mg/dL (0.2 mg/dL) Urine Leukocyte Esterase Negative (NEG) Urine RBC 0 /HPF (0-2) Urine WBC Occ /HPF (0-4) Urine Squamous Epithelial Cells Mod /LPF Urine Bacteria Few /HPF (0-FEW) Urine Hyaline Casts Few /HPF Urine Mucus Mod /LPF White Blood Count 4.7 x10^3/uL (4.0-11.0) Red Blood Count 3.93 x10^6/uL (3.50-5.40) Hemoglobin 12.2 g/dL (12.0-15.5) Hematocrit 36.0 % (36.0-47.0) Mean Corpuscular Volume 92 fL (79-100) Mean Corpuscular Hemoglobin 31 pg (25-35) Mean Corpuscular Hemoglobin Concent 34 g/dL (31-37) Red Cell Distribution Width 13.7 % (11.5-14.5) Platelet Count 184 x10^3/uL (140-400) Neutrophils (%) (Auto) 81 % (31-73) Lymphocytes (%) (Auto) 17 % (24-48) Monocytes (%) (Auto) 2 % (0-9) Eosinophils (%) (Auto) 0 % (0-3) Basophils (%) (Auto) 0 % (0-3) Neutrophils # (Auto) 3.8 x10^3/uL (1.8-7.7) Lymphocytes # (Auto) 0.8 x10^3/uL (1.0-4.8) Monocytes # (Auto) 0.1 x10^3/uL (0.0-1.1) Eosinophils # (Auto) 0.0 x10^3/uL (0.0-0.7) Basophils # (Auto) 0.0 x10^3/uL (0.0-0.2) Sodium Level 138 mmol/L (136-145) Potassium Level 4.5 mmol/L (3.5-5.1) Chloride Level 102 mmol/L (98-107) Carbon Dioxide Level 27 mmol/L (21-32) Anion Gap 9 (6-14) Blood Urea Nitrogen 28 mg/dL (7-20) Creatinine 1.0 mg/dL (0.6-1.0) Estimated GFR (Cockcroft-Gault) 65.2 Glucose Level 152 mg/dL (70-99) Calcium Level 9.0 mg/dL (8.5-10.1) Magnesium Level 2.3 mg/dL (1.8-2.4) Test 04/29/20 06:56 04/29/20 10:39 Glucose (Fingerstick) 140 mg/dL (70-99) 190 mg/dL (70-99) Assessment and Plan Assessmemt and Plan Problems Medical Problems: (1) COPD exacerbation Status: Acute COPD (chronic obstructive pulmonary disease) with acute exacerbation - nebs ordered, steroids. Consult pulm Shortness of breath - 2/2 above Abnormal CXR - will give antibiotics for bronchitis, early pneumonia, likely gram negative infection/atypical Acute hypoxic respiratory failure - on chronic hypoxia, likely from smoking with COPD exacerbation, will wean as tolerated DM2 - cont home meds, sliding scale HTN - cont meds Recent right hemicolectomy with a revision - recovered well Current smoker - offered nicotine patch, cessation counseling Diarrhea - if x3 will check c diff. No leukocytosis, this is less likely Comment Review of Relevant I have reviewed the following items abdifatah (where applicable) has been applied. Medications: Current Medications Medications (Trade) Dose Ordered Sig/Buffy Route PRN Reason Start Time Stop Time Status Last Admin Dose Admin Magnesium Sulfate 50 ml @ 25 mls/hr 1X ONCE IV 04/28/20 12:30 04/28/20 14:29 DC 04/28/20 12:37 Acetaminophen (Tylenol) 650 mg PRN Q6HRS PRN PO PAIN 04/28/20 12:30 04/28/20 22:05 Colestipol HCl (Colestid) 1 gm TIDAC PO 04/28/20 16:30 04/29/20 07:59 Lidocaine (Lidoderm) 1 patch DAILY TD 04/29/20 09:00 04/29/20 09:17 Memantine (Namenda) 10 mg BID PO 04/28/20 21:00 04/29/20 09:15 Metoprolol Succinate (Toprol Xl) 25 mg DAILY PO 04/29/20 09:00 04/29/20 09:16 Ropinirole HCl (Requip) 3 mg HS PO 04/28/20 21:00 04/28/20 22:05 Ascorbic Acid (Vitamin C) 500 mg DAILY PO 04/29/20 09:00 04/29/20 09:14 Duloxetine HCl (Cymbalta) 60 mg BID PO 04/28/20 21:00 04/29/20 09:15 Albuterol/ Ipratropium (Duoneb) 3 ml RTQID NEB 04/28/20 16:00 04/29/20 15:59 04/29/20 07:30 Albuterol Sulfate (Ventolin Neb Soln) 2.5 mg Q4HRS W/A NEB 04/28/20 14:00 04/28/20 16:31 DC 04/28/20 15:45 Methylprednisolone Sodium Succinate (SOLU-Medrol 40MG VIAL) 40 mg Q8HRS IV 04/28/20 17:00 04/29/20 07:59 Enoxaparin Sodium (Lovenox 40mg Syringe) 40 mg Q24H SQ 04/28/20 17:00 04/28/20 18:03 Doxycycline Hyclate 100 mg/ Dextrose 100 ml @ 50 mls/hr Q12HR IV 04/28/20 17:00 04/29/20 09:16 Budesonide (Pulmicort) 0.5 mg RTBID NEB 04/28/20 20:00 04/29/20 07:29 Montelukast Sodium (Singulair) 10 mg QHS PO 04/28/20 21:00 04/28/20 22:05 Justicifation of Admission Dx: Justifications for Admission: Justification of Admission Dx: Yes Acute COPD Exacerbation: Acute COPD Exacerbation DAVID DORAN III DO Apr 29, 2020 11:21
[2020-04-29] MEDS: BENZONATATE 100 MG CAPSULE. PO SCH ×2 (13:51→21:37)
[2020-04-29 14:54] VITALS: BP 150/73
[2020-04-29] MEDS: ENOXAPARIN 40 MG/0.4 ML SYRINGE. SQ SCH (16:47)
[2020-04-29 19:00] VITALS: BP 163/90
[2020-04-29] MEDS: rOPINIRole 1 MG TABLET. PO SCH (21:03)
[2020-04-29] MEDS: LACTOBACILLUS RHAMNOSUS GG 1 CAPSULE. PO SCH (21:03)
[2020-04-29] MEDS: MONTELUKAST SODIUM 10 MG TABLET. PO SCH (21:04)
[2020-04-29] MEDS: ACETAMINOPHEN 325 MG TABLET. PO PRN (21:04)
[2020-04-29 23:00] VITALS: BP 153/86
--- NOTE | 2020-04-30 00:14 | RAD ---
EXAM: CT OF THE CHEST WITHOUT CONTRAST. HISTORY: Smoking history, infiltrate. TECHNIQUE: Computed tomography of the chest was performed without intravenous contrast. One or more of the following individualized dose reduction techniques were utilized for this examination: 1. Automated exposure control. 2. Adjustment of the mA and/or kV according to patient size. 3. Use of iterative reconstruction technique. COMPARISON: 02/06/2019, 04/28/2020. FINDINGS: Images of the upper abdomen reveal no acute abnormality. Bone windows reveal no suspicious lesions. A lipoma in the right subscapularis muscle measures 3.9 x 2.9 cm. There are no pathologically enlarged mediastinal or axillary lymph nodes. There is no pleural or pericardial effusion. The heart is not enlarged. The main pulmonary artery measures 3.7 cm. There are atherosclerotic calcifications of the coronary arteries. A nodule in the right upper lobe on image 20 is uncalcified and measures 8 mm. This is smaller than on the prior study when it measured 13 mm. This favors a postinflammatory etiology. Another angulated nodule on image 30 in the right upper lobe measures 8 mm, increased from 4 mm. A small groundglass nodule anteriorly in the left upper lobe on image 20 measures <6 mm and is unchanged. The right hemidiaphragm is moderately elevated. There is atelectasis or focal infiltrate in the right lower lobe. Atelectasis is favored, as there is mild mediastinal shift toward the right. No central obstructing lesion is identified. There is moderate centrilobular emphysema. IMPRESSION: 1. An 8 mm nodule in the right upper lobe on image 30 has increased in size and is concerning for malignancy. Follow-up is recommended in 3 months. 2. Other nodules are stable or have decreased in size favoring benignity. 3. Atelectasis in the right base. Correlate for evidence of infection to exclude pneumonia. 4. Moderate centrilobular emphysema. Pulmonary arterial enlargement is consistent with pulmonary arterial hypertension. Electronically signed by: Francisco Hargrove MD (04/30/2020 12:12 AM) [facility]
[2020-04-30 03:42] VITALS: BP 156/79
[2020-04-30] MEDS: BENZONATATE 100 MG CAPSULE. PO SCH (06:12)
[2020-04-30] MEDS: methylPREDNISolone SOD SUCC PF 40 MG/ML VIAL. IV SCH (06:13)
--- NOTE | 2020-04-30 06:17 | EKG ---
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
[2020-04-30 07:00] VITALS: BP 162/87
[2020-04-30] MEDS ORDERED: guaiFENesin/CODEINE 100mg/10mg 5 ML LIQUID PO PRN (07:15)
[2020-04-30] MEDS: BUDESONIDE 0.5 MG/2 ML NEBU. NEB SCH (07:53)
[2020-04-30] MEDS: IPRATRPIUM/ALBUTEROL 0.5/2.5MG 3 ML NEBU. NEB SCH ×2 (07:53→11:39)
[2020-04-30] MEDS: COLESTIPOL HCL 1 GM TABLET PO SCH ×2 (08:40→10:53)
[2020-04-30] MEDS: LIDOCAINE (700MG/PATCH) PATCH. TD SCH (08:40)
[2020-04-30] MEDS: DULoxetine HCL 30 MG CAPSULE.DR PO SCH (08:41)
[2020-04-30] MEDS: MEMANTINE 10 MG TABLET. PO SCH (08:41)
[2020-04-30] MEDS: LACTOBACILLUS RHAMNOSUS GG 1 CAPSULE. PO SCH (08:41)
[2020-04-30] MEDS: ASCORBIC ACID 500 MG TABLET PO SCH (08:41)
[2020-04-30] MEDS: METOPROLOL SUCC 24HR ER 25 MG TAB.ER.24H. PO SCH (08:42)
[2020-04-30] MEDS: DOXYCYCLINE HYCLATE 100 MG in IV DEXTROSE 5% 100ML 100 ML IV SCH (08:43)
--- NOTE | 2020-04-30 09:41 | SNU/HH DC ---
DISCHARGE WITH HOME HEALTH DISCHARGE INFORMATION: Final Diagnosis: Problems Medical Problems: (1) COPD exacerbation Status: Acute Condition on Discharge: Stable CODE STATUS: Code Status: Full HOME HEALTH: Face to Face: I certify this patient is under my care and that I, or a nurse practitioner or physician's dental front office assistant working with me, had a face to face encounter that meets the physician face to face encounter requirements with this patient on []. Medical Complications: COPD Retirement For: Assess & Educate Safety RN For Eval/Treatment: Yes Physical Therapy For: Evalulation/Treatment Occupational Therapy For: Evaluation/Treatment Home Health Aide For: Self-care CHUMMER For: Community Resources Pt Meets Homebound Status: Unsteady balance w/ amb, POST DISCHARGE ORDERS: Activity Instructions for Disc: Activity as tolerated Weight Bearing Status after Di: As tolerated DIET AFTER DISCHARGE: Regular Wound/Incision Care: No wound care needed CHECKS AFTER DISCHARGE: Checks after discharge: Check blood press - daily FOLLOW-UP: DC TO SNF LABS: chem 12, cbc < 1 week TREATMENT/EQUIPMENT ORDERS: Adaptive Equipment Issued: Front wheeled walker Discharge Respiratory Equipmen: Oxygen CERTIFICATION STATEMENT: Certification Statement: Certification Statement: Based on the above finding, I certify that this patient is confined to the home and needs intermittent shelter care, physical therapy and/or speech therapy, or continues to need occupational therapy.~ This patient is under my care, and I have initiated the establishment of the plan of care.~ This patient will be followed by myself or a community physician who will periodically review the plan of care. Home Meds Active Scripts Ipratropium/Albuterol Sulfate (DUONEB 0.5-3(2.5) MG/3 ML) 3 Ml Ampul.neb, 3 ML NEB BID for COPD, #60 EACH Prov:RADAMES MÉNDEZ MD 01/15/19 Alprazolam (ALPRAZOLAM) 0.25 Mg Tablet, 0.25 MG PO PRN Q8HRS PRN for ANXIETY / AGITATION, #30 TAB Prov:RADAMES MÉNDEZ MD 01/15/19 Ascorbate Calcium (VITAMIN C) 500 Mg Tablet, 500 MG PO DAILY for with iron for 30 Days, #30 TAB 2 Refills Prov:FLORY NEAL MD 11/22/18 Ferrous Sulfate (Slow Release Iron) 250 Mg Tablet.er, 250 MG PO DAILY for GI bleed for 30 Days, #30 TAB.SR 2 Refills Prov:FLORY NEAL MD 11/22/18 Reported Medications Colestipol Hcl (COLESTIPOL HCL) 1 Gm Tablet, 1 TAB PO TIDAC for heart 01/22/20 Metformin Hcl (METFORMIN HCL ER) 500 Mg Tab.er.24h, 500 MG PO DAILYWBKFT for ANTI-DIABETIC, TAB 0 Refills 12/03/19 Duloxetine Hcl (CYMBALTA) 60 Mg Capsule.dr, 60 MG PO BID for pain, mood, CAP 12/03/19 Lidocaine (Lidocaine) 1 Each Adh..patch, 1 PATCH TD DAILY for pain 10/21/19 Metoprolol Succinate (METOPROLOL SUCCINATE ( XL )) 25 Mg Tab.er.24h, 25 MG PO DAILY for FOR HYPERTENSION, #30 TAB 0 Refills 02/06/19 Acetaminophen (TYLENOL) 325 Mg Tablet, 650 MG PO PRN Q6HRS PRN for PAIN, TAB 02/06/19 Memantine Hcl (NAMENDA) 10 Mg Tablet, 1 TAB PO BID, #180 TAB 1 Refill 11/12/16 Losartan Potassium (LOSARTAN POTASSIUM) 100 Mg Tablet, 100 MG PO DAILY, TAB 11/12/16 Spironolactone (SPIRONOLACTONE) 25 Mg Tablet, 1 TAB PO DAILY, #90 TAB 1 Refill 11/12/16 Albuterol Sulfate (VENTOLIN HFA INHALER) 18 Gm Hfa.aer.ad, 2 PUFF INH Q4HRS for FOR ASTHMA, INHALER 0 Refills 11/11/16 Ropinirole Hcl (REQUIP) 1 Mg Tablet, 3 MG PO HS for restless leg , TAB 01/27/16 DAVID DORAN III DO Apr 30, 2020 09:41
--- NOTE | 2020-04-30 09:41 | SNU/HH DC ---
DISCHARGE ORDERS DISCHARGE INFORMATION: FINAL DIAGNOSIS Problems Medical Problems: (1) COPD exacerbation Status: Acute CONDITION ON DISCHARGE: Stable CODE STATUS: Code Status: Full MCFP: SNF STAY <30 DAYS: Yes HOSPICE: HOSPICE: No HOSPICE EVAL & TREAT: No LTAC: ADMIT TO LTAC: No POST DISCHARGE ORDERS: ACTIVITY ORDERS: Activity as tolerated WEIGHT BEARING STATUS: As tolerated DIET AFTER DISCHARGE: Regular WOUND/INCISION CARE: No wound care needed CHECKS AFTER DISCHARGE: CHECKS AFTER DISCHARGE: Check blood press - daily FOLLOW-UP: LAB ORDERS FOR FOLLOW-UP: chem 12, cbc < 1 week TREATMENT/EQUIPMENT ORDERS: ADAPTIVE EQUIPMENT NEEDED: Front wheeled walker RESPIRATORY EQUIPMENT NEEDED: Oxygen Physical Therapy For: Evalulation/Treatment Occupational Therapy For: Evaluation/Treatment DISCHARGE MEDICATIONS: Home Meds Active Scripts Ipratropium/Albuterol Sulfate (DUONEB 0.5-3(2.5) MG/3 ML) 3 Ml Ampul.neb, 3 ML NEB BID for COPD, #60 EACH Prov:RADAMES MÉNDEZ MD 01/15/19 Alprazolam (ALPRAZOLAM) 0.25 Mg Tablet, 0.25 MG PO PRN Q8HRS PRN for ANXIETY / AGITATION, #30 TAB Prov:RADAMES MÉNDEZ MD 01/15/19 Ascorbate Calcium (VITAMIN C) 500 Mg Tablet, 500 MG PO DAILY for with iron for 30 Days, #30 TAB 2 Refills Prov:FLORY NEAL MD 11/22/18 Ferrous Sulfate (Slow Release Iron) 250 Mg Tablet.er, 250 MG PO DAILY for GI bleed for 30 Days, #30 TAB.SR 2 Refills Prov:FLORY NEAL MD 11/22/18 Reported Medications Colestipol Hcl (COLESTIPOL HCL) 1 Gm Tablet, 1 TAB PO TIDAC for heart 01/22/20 Metformin Hcl (METFORMIN HCL ER) 500 Mg Tab.er.24h, 500 MG PO DAILYWBKFT for ANTI-DIABETIC, TAB 0 Refills 12/03/19 Duloxetine Hcl (CYMBALTA) 60 Mg Capsule.dr, 60 MG PO BID for pain, mood, CAP 12/03/19 Lidocaine (Lidocaine) 1 Each Adh..patch, 1 PATCH TD DAILY for pain 10/21/19 Metoprolol Succinate (METOPROLOL SUCCINATE ( XL )) 25 Mg Tab.er.24h, 25 MG PO DAILY for FOR HYPERTENSION, #30 TAB 0 Refills 02/06/19 Acetaminophen (TYLENOL) 325 Mg Tablet, 650 MG PO PRN Q6HRS PRN for PAIN, TAB 02/06/19 Memantine Hcl (NAMENDA) 10 Mg Tablet, 1 TAB PO BID, #180 TAB 1 Refill 11/12/16 Losartan Potassium (LOSARTAN POTASSIUM) 100 Mg Tablet, 100 MG PO DAILY, TAB 11/12/16 Spironolactone (SPIRONOLACTONE) 25 Mg Tablet, 1 TAB PO DAILY, #90 TAB 1 Refill 11/12/16 Albuterol Sulfate (VENTOLIN HFA INHALER) 18 Gm Hfa.aer.ad, 2 PUFF INH Q4HRS for FOR ASTHMA, INHALER 0 Refills 11/11/16 Ropinirole Hcl (REQUIP) 1 Mg Tablet, 3 MG PO HS for restless leg , TAB 01/27/16 DAVID DORAN III DO Apr 30, 2020 09:41
--- NOTE | 2020-04-30 10:25 | NUR ---
LATANYA following. Discussed with RN, pt apparently wanting to go somewhere called "[facility]." LATANYA is not familiar with this facility, per google, this looks like an assisted living facility. SW to meet with pt to discuss this facility. RN ordered PT/OT in case pt is actually wanting SNU. LATANYA will continue to follow. Addendum: 04/30/20 at 1134 by CRISELDA PELAEZ LATANYA met with pt (no isolation precautions at the time), pt does not want SNU, agreeable to home health - wants [facility] as she has had them before. Pt reported she wants to move to [facility] but does not have a high enough income. LATANYA advised [facility] has a marriage and family social worker who can met with her to discuss other options for assisted living. RN notified. Pt accepted with [facility] - discharging home with [facility] today.
--- NOTE | 2020-04-30 10:47 | DS ---
DATE OF DISCHARGE: 04/30/2020 ADMISSION DIAGNOSES: Chronic obstructive pulmonary disease exacerbation. DISCHARGE DIAGNOSIS: Resolving chronic obstructive pulmonary disease exacerbation. HOSPITAL COURSE: The patient is a pleasant elderly female who continues to smoke. She has end-stage COPD. We admitted the patient, gave her steroids, breathing treatments and oxygen. Consulted Pulmonary. Today, I saw her, examined her, she is at her baseline. PHYSICAL EXAMINATION: HEART: Tones are normal. LUNGS: Diminished, but clear. ABDOMEN: Soft. EXTREMITIES: Without edema. PLAN: We plan to discharge. DISPOSITION: Home. ACTIVITY: As tolerated. DIET: Low sodium. MEDICATIONS: Please see MRAD. TOTAL TIME: 34 minutes. DAVID DORAN DO DR: CINDY/courtney JOB#: [id number] / [id number]
[2020-04-30 10:59] VITALS: BP 158/82
--- NOTE | 2020-04-30 11:12 | PDOC ---
PULMONARY PROGRESS NOTES Subjective no soa Vitals Vital Signs Date Time Temp Pulse Resp B/P (MAP) Pulse Ox O2 Delivery O2 Flow Rate FiO2 04/30/20 10:59 97.9 68 19 158/82 (107) 98 Nasal Cannula 2.0 97.9 General: Alert, No acute distress Lungs: Clear Cardiovascular: S1, S2 Abdomen: Soft, Non-tender, Other Extremities: No Edema Labs Laboratory Tests Test 04/28/20 16:03 04/28/20 20:37 04/28/20 22:25 04/29/20 05:20 Glucose (Fingerstick) 160 mg/dL (70-99) 186 mg/dL (70-99) Urine Collection Type Unknown Urine Color Yellow Urine Clarity Clear Urine pH 5.0 (<5.0-8.0) Urine Specific [place] 1.025 (1.000-1.030) Urine Protein Negative mg/dL (NEG-TRACE) Urine Glucose (UA) Negative mg/dL (NEG) Urine Ketones (Stick) Trace mg/dL (NEG) Urine Blood Negative (NEG) Urine Nitrite Negative (NEG) Urine Bilirubin Negative (NEG) Urine Urobilinogen Dipstick 0.2 mg/dL (0.2 mg/dL) Urine Leukocyte Esterase Negative (NEG) Urine RBC 0 /HPF (0-2) Urine WBC Occ /HPF (0-4) Urine Squamous Epithelial Cells Mod /LPF Urine Bacteria Few /HPF (0-FEW) Urine Hyaline Casts Few /HPF Urine Mucus Mod /LPF White Blood Count 4.7 x10^3/uL (4.0-11.0) Red Blood Count 3.93 x10^6/uL (3.50-5.40) Hemoglobin 12.2 g/dL (12.0-15.5) Hematocrit 36.0 % (36.0-47.0) Mean Corpuscular Volume 92 fL (79-100) Mean Corpuscular Hemoglobin 31 pg (25-35) Mean Corpuscular Hemoglobin Concent 34 g/dL (31-37) Red Cell Distribution Width 13.7 % (11.5-14.5) Platelet Count 184 x10^3/uL (140-400) Neutrophils (%) (Auto) 81 % (31-73) Lymphocytes (%) (Auto) 17 % (24-48) Monocytes (%) (Auto) 2 % (0-9) Eosinophils (%) (Auto) 0 % (0-3) Basophils (%) (Auto) 0 % (0-3) Neutrophils # (Auto) 3.8 x10^3/uL (1.8-7.7) Lymphocytes # (Auto) 0.8 x10^3/uL (1.0-4.8) Monocytes # (Auto) 0.1 x10^3/uL (0.0-1.1) Eosinophils # (Auto) 0.0 x10^3/uL (0.0-0.7) Basophils # (Auto) 0.0 x10^3/uL (0.0-0.2) Sodium Level 138 mmol/L (136-145) Potassium Level 4.5 mmol/L (3.5-5.1) Chloride Level 102 mmol/L (98-107) Carbon Dioxide Level 27 mmol/L (21-32) Anion Gap 9 (6-14) Blood Urea Nitrogen 28 mg/dL (7-20) Creatinine 1.0 mg/dL (0.6-1.0) Estimated GFR (Cockcroft-Gault) 65.2 Glucose Level 152 mg/dL (70-99) Calcium Level 9.0 mg/dL (8.5-10.1) Magnesium Level 2.3 mg/dL (1.8-2.4) Test 04/29/20 06:56 04/29/20 10:39 04/29/20 16:06 04/30/20 07:01 Glucose (Fingerstick) 140 mg/dL (70-99) 190 mg/dL (70-99) 132 mg/dL (70-99) 132 mg/dL (70-99) Laboratory Tests Test 04/29/20 16:06 04/30/20 07:01 Glucose (Fingerstick) 132 mg/dL (70-99) 132 mg/dL (70-99) Medications Active Scripts Medications Dose Route/Sig Max Daily Dose Days Date Category Colestipol Hcl 1 Gm Tablet 1 Tab PO TIDAC 01/22/20 Reported Metformin Hcl Er (Metformin Hcl) 500 Mg Tab.er.24h 500 Mg PO DAILYWBKFT 12/03/19 Reported Cymbalta (Duloxetine Hcl) 60 Mg Capsule.dr 60 Mg PO BID 1/18/20 Reported Lidocaine 1 Each Adh..patch 1 Patch TD DAILY 10/21/19 Reported Metoprolol Succinate ( Xl ) (Metoprolol Succinate) 25 Mg Tab.er.24h 25 Mg PO DAILY 02/06/19 Reported Tylenol (Acetaminophen) 325 Mg Tablet 650 Mg PO PRN Q6HRS PRN 02/06/19 Reported Duoneb 0.5-3(2.5) Mg/3 Ml (Albuterol/Ipratropium) 3 Ml Ampul.neb 3 Ml NEB BID 01/15/19 Rx Alprazolam 0.25 Mg Tablet 0.25 Mg PO PRN Q8HRS PRN 01/15/19 Rx Vitamin C (Ascorbate Calcium) 500 Mg Tablet 500 Mg PO DAILY 30 11/22/18 Rx Slow Release Iron (Ferrous Sulfate) 250 Mg Tablet.er 250 Mg PO DAILY 30 11/22/18 Rx Namenda (Memantine Hcl) 10 Mg Tablet 1 Tab PO BID 11/12/16 Reported Losartan Potassium 100 Mg Tablet 100 Mg PO DAILY 11/12/16 Reported Spironolactone 25 Mg Tablet 1 Tab PO DAILY 11/12/16 Reported Ventolin Hfa Inhaler (Albuterol Sulfate) 18 Gm Hfa.aer.ad 2 Puff INH Q4HRS 11/11/16 Reported Requip (Ropinirole Hcl) 1 Mg Tablet 3 Mg PO HS 01/27/[address] chest 04/29 1. An 8 mm nodule in the right upper lobe on image 30 has increased in size and is concerning for malignancy. Follow-up is recommended in 3 months. 2. Other nodules are stable or have decreased in size favoring benignity. 3. Atelectasis in the right base. Correlate for evidence of infection to exclude pneumonia. 4. Moderate centrilobular emphysema. Pulmonary arterial enlargement is consistent with pulmonary arterial hypertension. Electronically signed by: Francisco Hargrove MD (04/30/2020 12:12 AM) [facility] Impression . 1. Acute on chronic respiratory failure secondary to acute exacerbation of chronic obstructive pulmonary disease, acute bronchitis. 2. Abnormal chest x-ray, infiltrate versus atelectasis. 3. Acute exacerbation of chronic obstructive pulmonary disease. 4. Acute bronchitis. 5. Diabetes mellitus. 6. Hypertension. 7. Tobacco habituation. Plan . 1. I had a long discussion with her regarding the smoking cessation, I have advised her to stop smoking forever. 2. Continue Solu-Medrol. She still has a cough and wheezing. 3. Continue antibiotic. 4. CT of the chest reviewed. Increase in RUL nodule to 8 mm from 4 mm. still too small, needs f/u in 3 months She also has a history of [id number] smoking. 5. Bronchodilator. 6. Inhaled corticosteroid. 7. Lovenox for DVT prophylaxis. 8. Add Protonix for stress ulcer prophylaxis. ok with dc . f/u given with Dr Rodriguez for jul [address] chest before JEF CARLIN MD Apr 30, 2020 11:12
[2020-04-30 14:51] VITALS: BP 149/74
--- NOTE | 2020-04-30 15:28 | NUR ---
Discharge instructions given with prescriptions. Answered questions and concerns. Verbalized understanding. Pt discharged home with home health.
== END 2020-04-30 15:28 | disposition home health service (06) | DRG 177 ==
LOC: ER 08:35 → 4 NORTH 12:33
PROVIDERS: ADMIT Internal Medicine; ATTEND Internal Medicine
DX: J15.6 Pneumonia due to other Gram-negative bacteria (principal); J96.21 Acute and chronic respiratory failure with hypoxia; J44.0 Chronic obstructive pulmonary disease with (acute) lower respiratory infection; J98.11 Atelectasis; J44.1 Chronic obstructive pulmonary disease with (acute) exacerbation; J20.9 Acute bronchitis, unspecified; E11.9 Type 2 diabetes mellitus without complications; F17.210 Nicotine dependence, cigarettes, uncomplicated; I10 Essential (primary) hypertension; Z82.49 Family history of ischemic heart disease and other diseases of the circulatory system; Z90.411 Acquired partial absence of pancreas; Z71.6 Tobacco abuse counseling; Z88.0 Allergy status to penicillin
CPT/HCPCS: 36415; 71045; 71250; 80048; 80053; 81001; 82962; 83735; 83880; 84484; 85025; 93005; 94640; 94760; 96365; 96366; 96375; 99285; J1650; J2920; J2930; J3475; J3490; J7060; G0378; J7613; J7626

== ENCOUNTER → 2020-07-09 | Outpatient (CLI) | payer MEDICARE ==
[~2020-07-09] MED LIST changes: +PANT20TA2 PO
--- NOTE | 2020-07-09 15:09 | RAD ---
Examination: CT chest without contrast HISTORY: History of lung nodule follow-up COMPARISON: 04/29/2020 TECHNIQUE: Axial CT images of the right chest were performed without contrast. Coronal and sagittal reformats are performed Exposure: One or more of the following individualized dose reduction techniques were utilized for this examination: 1. Automated exposure control 2. Adjustment of the mA and/or kV according to patient size 3. Use of iterative reconstruction technique FINDINGS: The central airways are patent. Coronary artery calcifications identified. Mild cardiomegaly. No radiologically significant mediastinal lymphadenopathy identified. Moderate bilateral lung emphysematous changes. There is a 1 cm nodule identified in the right middle lobe of the lung abutting the pleura which is increased in size compared to prior exam where it measured 8 mm.. Small subcentimeter nodules identified in the right upper lobe are unchanged. The previously visualized right lower lobe lung atelectasis has resolved. Mild elevation of the right hemidiaphragm. Partially visualized fluid distended small bowel loops. Moderate degenerative changes thoracic spine. IMPRESSION: 1. Increase in size of the right middle lobe lung nodule now measuring 1 cm. Primary consideration is a malignancy. Recommend PET/CT scan. 2. Other smaller lung nodules in the right upper lobe the lung similar to prior exam. 3. Moderate bilateral lung emphysematous changes. Electronically signed by: Bryon Lindquist MD (07/09/2020 3:06 PM) [place] [id number]
== END ==
LOC: CT 10:14
PROVIDERS: ATTEND Internal Medicine Critical Care Medicine
DX: R91.8 Other nonspecific abnormal finding of lung field (principal); I25.10 Atherosclerotic heart disease of native coronary artery without angina pectoris; I51.7 Cardiomegaly; J43.9 Emphysema, unspecified
CPT/HCPCS: 71250

== ENCOUNTER → 2020-08-10 | Outpatient (CLI) | payer MEDICARE ==
[2020-08-06 14:53] VITALS: BP 120/76
--- NOTE | 2020-08-10 19:16 | RAD ---
EXAMINATION: PET W CT SKULL TO MIDTHIGH HISTORY: Non-small cell lung cancer COMPARISON/CORRELATION: 07/09/2020 CT chest without contrast FINDINGS: Net dose 15.03 mCi F-18 FDG was administered intravenously for purposes of PET/CT exam. Blood glucose level at the time of radiotracer administration was 145 mg/dL. Imaging was performed from the skull base to the proximal thighs. Hepatic reference uptake is SUV max of 2.4 . Head and neck No suspicious uptake. Thorax Right midlung pulmonary nodule currently measures 1.3 cm x 1.1 cm surrounding stranding noted. This is somewhat greater as compared to 07/09/2020 CT chest without contrast. SUV max is 1.5. Incidental note is made of a benign lipoma anterior to the right humeral head. Emphysematous involvement of the lung barnes noted. Subcutaneous emphysema involving the right chest wall extending to the right abdominal wall subcutaneous changes are noted. Subcutaneous emphysema also extends to the base of the neck. No enlarged thoracic lymph nodes. Abdomen and pelvis Small hiatal hernia. Fluid and gas are present within bowel. Uptake within bowel is physiologic in distribution. Suture material involving the cecum and right anterior pelvic region noted. Liver, spleen spleen, pancreas, adrenal glands, and left kidney are unremarkable. Gallbladder fossa is unremarkable. Vascular calcification involving the right renal hilum noted. Abdominal aortic diameter is unremarkable. Fibroid involvement of the uterus is evident. Postoperative lumbar spine noted with rods and screws and laminectomy defects. No enlarged abdominal or pelvic lymph nodes. No suspicious bony process. IMPRESSION: Right midlung nodule is slightly increased in size with subtle stranding about it since 07/09/2020. Uptake of radiotracer is not particularly intense. This likely represents inflammatory/infectious process rather than neoplastic etiology. Neoplastic etiology is not necessarily entirely excluded however. PQRS Compliance Statement: One or more of the following individualized dose reduction techniques were utilized for this examination: 1. Automated exposure control 2. Adjustment of the mA and/or kV according to patient size 3. Use of iterative reconstruction technique Electronically signed by: Omar Galindo MD (08/10/2020 7:13 PM) [facility]
== END | disposition home or self-care (01) ==
LOC: PETSC 12:01
PROVIDERS: ATTEND Radiology Radiation Oncology
DX: C34.11 Malignant neoplasm of upper lobe, right bronchus or lung (principal); R91.1 Solitary pulmonary nodule; K44.9 Diaphragmatic hernia without obstruction or gangrene; J43.9 Emphysema, unspecified
CPT/HCPCS: 78815; A9552

== ENCOUNTER → 2020-08-13 | Outpatient (CLI) | payer MEDICARE ==
[2020-08-06 14:53] VITALS: BP 120/76
[~2020-08-13] MED LIST changes: +BENZ-8 PO
== END | disposition home or self-care (01) ==
LOC: LAB 14:11
PROVIDERS: ATTEND Radiology Radiation Oncology
DX: Z01.812 Encounter for preprocedural laboratory examination (principal); C34.11 Malignant neoplasm of upper lobe, right bronchus or lung; Z20.828 Contact with and (suspected) exposure to other viral communicable diseases
CPT/HCPCS: U0003-CS

== ENCOUNTER 2020-09-18 17:37 | Emergency (ER) | payer MEDICARE ==
[~2020-09-18] VITALS: Ht 170.2 cm; Wt 65.9 kg
[~2020-09-18 17:37] MED LIST changes: +ALBU2.5V5 NEB; +AMLO-187 PO; -AMLO10TA8 PO; +BUDE0.5A NEB; +TIOT18CA IH
[2020-09-18] MEDS ORDERED: IPRATRPIUM/ALBUTEROL 0.5/2.5MG 3 ML NEBU. NEB ONE (18:15)
[2020-09-18] MEDS ORDERED: methylPREDNISolone SOD SUCC PF 125 MG/2 ML VIAL. IV ONE (18:15)
--- NOTE | 2020-09-18 18:25 | PHYS DOC ---
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 Past Surgical History: Tonsillectomy, Other Additional Past Surgical Histo: PARTIAL PANCREATECTOMY Smoking Status: Current Every Day Smoker Alcohol Use: Occasionally Drug Use: None General Adult EDM: Chief Complaint: SHORTNESS OF BREATH HPI: HPI: Patient is a 74 year old female with history of COPD, recently diagnosed with bronchogenic carcinoma, undergo radiation treatment, on 4 L oxygen at home, presented to ER with trouble breathing started today. Patient has used 3 nebulizer treatment at home already did not feel better so she came here for evaluation. Patient had chronic cough, no fever. Patient has been tested multiple times for COVID-19 and all came back negative. Patient was admitted here recently last month for the same problem. Patient denies any chest pain, no abdominal pain, no nausea vomiting. Review of Systems: Review of Systems: Constitutional: Denies fever or chills. [] Eyes: Denies change in visual acuity. [] HENT: Denies nasal congestion or sore throat. [] Respiratory: Positive for cough and trouble breathing Cardiovascular: Denies chest pain or edema. [] GI: Denies abdominal pain, nausea, vomiting, bloody stools or diarrhea. [] : Denies dysuria. [] Musculoskeletal: Denies back pain or joint pain. [] Integument: Denies rash. [] Neurologic: Denies headache, focal weakness or sensory changes. [] Endocrine: Denies polyuria or polydipsia. [] Lymphatic: Denies swollen glands. [] Psychiatric: Denies depression or anxiety. [] Heart Score: Risk Factors: Risk Factors: DM, Current or recent (<one month) smoker, HTN, HLP, family history of CAD, obesity. Risk Scores: Score 0 - 3: 2.5% MACE over next 6 weeks - Discharge Home Score 4 - 6: 20.3% MACE over next 6 weeks - Admit for Clinical Observation Score 7 - 10: 72.7% MACE over next 6 weeks - Early Invasive Strategies Current Medications: Current Medications Medications (Trade) Dose Ordered Sig/Buffy Start Time Stop Time Status Last Admin Dose Admin Albuterol/ Ipratropium (Duoneb) 3 ml 1X ONCE 09/18/20 18:15 09/18/20 18:16 DC Methylprednisolone Sodium Succinate (SOLU-Medrol 125MG VIAL) 125 mg 1X ONCE 09/18/20 18:15 09/18/20 18:16 DC Allergies: Allergies: Allergies Coded Allergies Type Severity Reaction Last Updated Verified Penicillins Allergy Intermediate 04/05/20 Yes Physical Exam: PE: Constitutional: Well developed, well nourished, no acute distress, non-toxic appearance. [] HENT: Normocephalic, atraumatic, bilateral external ears normal, oropharynx moist, no oral exudates, nose normal. [] Eyes: PERRLA, EOMI, conjunctiva normal, no discharge. [] Neck: Normal range of motion, no tenderness, supple, no stridor. [] Cardiovascular:Heart rate regular rhythm, no murmur [] Lungs & Thorax: Bilateral breath sounds with expiratory wheezing, no respiratory distress. Abdomen: Bowel sounds normal, soft, no tenderness, no masses, no pulsatile mas ses. [] Skin: Warm, dry, no erythema, no rash. [] Back: No tenderness, no CVA tenderness. [] Extremities: No tenderness, no cyanosis, no clubbing, ROM intact, no edema. [] Neurologic: Alert and oriented X 3, normal motor function, normal sensory function, no focal deficits noted. [] Psychologic: Affect normal, judgement normal, mood normal. [] Current Patient Data: Labs: Laboratory Tests Test 09/18/20 18:25 White Blood Count 8.5 x10^3/uL Red Blood Count 4.36 x10^6/uL Hemoglobin 13.2 g/dL Hematocrit 39.1 % Mean Corpuscular Volume 90 fL Mean Corpuscular Hemoglobin 30 pg Mean Corpuscular Hemoglobin Concent 34 g/dL Red Cell Distribution Width 15.4 % Platelet Count 208 x10^3/uL Neutrophils (%) (Auto) 68 % Lymphocytes (%) (Auto) 19 % Monocytes (%) (Auto) 9 % Eosinophils (%) (Auto) 4 % Basophils (%) (Auto) 0 % Neutrophils # (Auto) 5.8 x10^3/uL Lymphocytes # (Auto) 1.6 x10^3/uL Monocytes # (Auto) 0.7 x10^3/uL Eosinophils # (Auto) 0.4 x10^3/uL Basophils # (Auto) 0.0 x10^3/uL Sodium Level 143 mmol/L Potassium Level 4.0 mmol/L Chloride Level 105 mmol/L Carbon Dioxide Level 29 mmol/L Anion Gap 9 Blood Urea Nitrogen 20 mg/dL Creatinine 1.2 mg/dL Estimated GFR (Cockcroft-Gault) 52.9 BUN/Creatinine Ratio 17 Glucose Level 105 mg/dL Calcium Level 9.4 mg/dL Magnesium Level 2.0 mg/dL Total Bilirubin 0.3 mg/dL Aspartate Amino Transf (AST/SGOT) 18 U/L Alanine Aminotransferase (ALT/SGPT) 22 U/L Alkaline Phosphatase 73 U/L Troponin I Quantitative < 0.017 ng/mL XG-Kho-L-Type Natriuretic Peptide 70 pg/mL Total Protein 7.7 g/dL Albumin 3.7 g/dL Albumin/Globulin Ratio 0.9 Current Medications Medications (Trade) Dose Ordered Sig/Buffy Route PRN Reason Start Time Stop Time Status Last Admin Dose Admin Albuterol/ Ipratropium (Duoneb) 3 ml 1X ONCE NEB 09/18/20 18:15 09/18/20 18:16 DC 09/18/20 19:39 Methylprednisolone Sodium Succinate (SOLU-Medrol 125MG VIAL) 125 mg 1X ONCE IV 09/18/20 18:15 09/18/20 18:16 DC 09/18/20 18:42 Vital Signs: Vital Signs Date Time Temp Pulse Resp B/P (MAP) Pulse Ox O2 Delivery O2 Flow Rate FiO2 09/18/20 17:45 98.7 106 24 135/85 (102) 95 Room Air 98.7 EKG: EKG: EKG was done at 1813, heart rate of 90 bpm, sinus rhythm, no ST segment elevation. Radiology/Procedures: Radiology/Procedures: [][facility] [address] [place] [address] IMAGING REPORT Signed PATIENT: ELLE LATHAM AACCOUNT: [id number] : 1945 LOCATION: ER AGE: 74 SEX: F EXAM STATUS: REG ER ORD. PHYSICIAN: ROMAN HENNING DO REASON: soa PROCEDURE: PORTABLE CHEST 1V EXAM: PORTABLE CHEST 1V INDICATION: Reason: soa / Spl. Instructions: / History: . TECHNIQUE: Single view COMPARISON: 09/05/2020 chest x-ray, and 08/15/2020 CT angiogram chest with IV contrast FINDINGS: The heart size is normal. Great vessels show tortuosity of the ascending thoracic aorta, similar to prior. There is no hilar or mediastinal mass. The lungs are emphysematous but show no focal infiltrates.. There is no pleural effusion or pneumothorax. There are no significant osseous abnormalities. IMPRESSION: No active cardiopulmonary disease. Electronically signed by: Roz Wagner MD (09/18/2020 7:32 PM) [facility] [place] and SIGNED BY: ROZ WAGNER MD DATE: 09/18/201931 Course & Med Decision Making: Course & Med Decision Making Pertinent Labs and Imaging studies reviewed. (See chart for details) Patient is a 74-year-old he was evaluated in ER due to trouble breathing. Patient has COPD, she is on 4 L oxygen at home. Her chest x-ray is normal here. Patient was given steroid IV and DuoNeb treatment in ER, she feels much better. Patient would like to go home. Patient was in no acute distress. 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 Raimundo Disclaimer: Raimundo Disclaimer: This electronic medical record was generated, in whole or in part, using a voice recognition dictation system. Departure Departure Impression: Primary Impression: COPD exacerbation Disposition: 01 DC HOME SELF CARE/HOMELESS Condition: IMPROVED Referrals: MINI TREJO (PCP) PLEASE FOLLOW UP WITH YOUR DOCTOR THIS WEEK FOR REEVALUATION. Patient Instructions: Chronic Obstructive Pulmonary Disease Exacerbation Additional Instructions: Thank you for visiting our Emergency Department. We appreciate you trusting us with your care. If any additional problems come up don't hesitate to return to visit us. Please follow up with your primary care provider so they can plan additional care if needed and know about the problem that you had. If symptoms worsen come back to the Emergency Department. Any concerning symptoms that start such as chest pain, shortness of air, weakness or numbness on one side of the body, running high fevers or any other concerning symptoms return to the ER. Scripts Doxycycline Hyclate (DOXYCYCLINE HYCLATE) 100 Mg Tablet 1 TAB PO BID, #14 TAB Prov: ROMAN HENNING DO 09/18/20 Prednisone (PREDNISONE) 20 Mg Tablet 1 TAB PO DAILY, #7 TAB Prov: ROMAN HENNING DO 09/18/20 ROMAN HENNING DO Sep 18, 2020 18:25
--- NOTE | 2020-09-18 18:38 | EKG ---
[facility] [address] [place] [address] Test Date: 2020-09-18 Test Time: 18:13:25 Pat Name: ELLE LATHAM Department: Room: Gender: F Size Stamper: : 1945 Requested By: ROMAN HENNING Order Number: [id number] Reading MD: Jaswinder Tucker Measurements Intervals [place] Rate: 98 P: 34 MN: 146 QRS: 2 QRSD: 80 T: 60 QT: 352 QTc: 451 Interpretive Statements SINUS RHYTHM QRS(T) CONTOUR ABNORMALITY CONSISTENT WITH ANTEROSEPTAL INFARCT PROBABLY OLD ABNORMAL ECG Electronically Signed On 09-19-2020 9:22:45 [employer]IDENT [employer] by Jaswinder Tucker
[2020-09-18 18:54] LABS: BASO % 0 % (0-3); EOS # 0.4 x10^3/uL (0.0-0.7); EOS % 4 % (0-3); HEMATOCRIT 39.1 % (36.0-47.0); HEMOGLOBIN 13.2 g/dL (12.0-15.5); LYMPH # 1.6 x10^3/uL (1.0-4.8); LYMPH % 19 % (24-48); MEAN CORPUSCULAR HEMOGLOBIN 30 pg (25-35); MEAN CORPUSCULAR HGB CONC 34 g/dL (31-37); MEAN CORPUSCULAR VOLUME 90 fL (79-100); MONO # 0.7 x10^3/uL (0.0-1.1); MONO % 9 % (0-9); NEUT # 5.8 x10^3/uL (1.8-7.7); NEUT % 68 % (31-73); PLATELET COUNT 208 x10^3/uL (140-400); RED BLOOD COUNT 4.36 x10^6/uL (3.50-5.40); RED CELL DISTRIBUTION WIDTH 15.4 % (11.5-14.5); WHITE BLOOD COUNT 8.5 x10^3/uL (4.0-11.0)
[2020-09-18 19:17] LABS: CALCIUM 9.4 mg/dL (8.5-10.1); CREATININE 1.2 mg/dL (0.6-1.0); GFR 52.9
[2020-09-18 19:20] LABS: ALBUMIN 3.7 g/dL (3.4-5.0); ALBUMIN/GLOBULIN RATIO 0.9 (1.0-1.7); TOTAL BILIRUBIN 0.3 mg/dL (0.2-1.0); TOTAL PROTEIN 7.7 g/dL (6.4-8.2)
--- NOTE | 2020-09-18 19:35 | RAD ---
EXAM: PORTABLE CHEST 1V INDICATION: Reason: soa / Spl. Instructions: / History: . TECHNIQUE: Single view COMPARISON: 09/05/2020 chest x-ray, and 08/15/2020 CT angiogram chest with IV contrast FINDINGS: The heart size is normal. Great vessels show tortuosity of the ascending thoracic aorta, similar to prior. There is no hilar or mediastinal mass. The lungs are emphysematous but show no focal infiltrates.. There is no pleural effusion or pneumothorax. There are no significant osseous abnormalities. IMPRESSION: No active cardiopulmonary disease. Electronically signed by: Edmund Wagner MD (09/18/2020 7:32 PM) [facility] [place]
[2020-09-18 20:33] VITALS: BP 126/85
[2020-09-18] MEDS ORDERED: PRED20TA PO (20:47)
[2020-09-18] MEDS ORDERED: DOXY100T PO (20:47)
== END 2020-09-18 21:14 | disposition home or self-care (01) ==
LOC: ER 17:37
DX: J44.1 Chronic obstructive pulmonary disease with (acute) exacerbation (principal); R05 Cough; R06.02 Shortness of breath; E11.9 Type 2 diabetes mellitus without complications; I10 Essential (primary) hypertension; F17.200 Nicotine dependence, unspecified, uncomplicated; Z90.89 Acquired absence of other organs; Z98.890 Other specified postprocedural states; Z88.0 Allergy status to penicillin
CPT/HCPCS: 36415; 71045; 80053; 83735; 83880; 84484; 85025; 93005; 94640; 96374; 99285; J2930

== ENCOUNTER → 2021-01-04 | Outpatient (CLI) | payer MEDICARE ==
[~2021-01-04] MED LIST changes: +METH-561 PO; -METH500T7 PO
--- NOTE | 2021-01-04 18:25 | RAD ---
EXAM: NM PET/CT SKULL BASE TO MID THIGH EXAM DATE: 01/04/2021 INDICATION: Lung cancer restaging RADIOPHARMACEUTICAL: 13.2 mCi of F-18 Fluorodeoxyglucose (FDG) I.V. via the left forearm. TECHNIQUE: Patient weight: 165 pounds. Following at least four-hour fasting, the patient's blood gluc ose was 133 mg/dl. Approximately 1 hour and 40 minutes after administration of FDG, overlapping emis megan scanning was performed from the orbital meatal line through the pelvis. A low-dose CT was perfo rmed for attenuation correction purposes and anatomic localization. Fused images of PET and CT were r eviewed. Any standardized uptake values (SUV) reported are maximum values within a volume region of interest, expressed in gm/ml. COMPARISON: CT pulmonary angiogram of 08/15/2020, PET CT of 08/10/2020 FINDINGS: PET: In the head and neck, there is asymmetric FDG uptake to max SUV of 6.54 in the right lower neck at th e approximate C6-C7 level where no asymmetric lymph node or mass is identified on noncontrast CT. In the chest, a 1 cm right middle lobe nodule abutting the minor fissure shows FDG uptake to max SUV of 0.66, compared with mediastinal background activity of 2.7. No new pulmonary nodules nor abnormal uptake in the chest is identified. In the abdomen and pelvis, no abnormal FDG uptake is identified. Activity in the liver is 3.2 Max SUV. No abnormal FDG uptake in the bones. CT: The head and neck, no acute findings are evident. No adenopathy or masses seen. Atherosclerotic vascu lar calcifications are present. In the chest, the treated right middle lobe pulmonary nodule shows slight interval decrease in soft t issue component and size. No evidence of thoracic adenopathy with upper normal right lower paratrache al lymph node measuring 9 mm. No pleural effusions. There is background centrilobular emphysema, meliza lar to prior. A reticular opacity in the anterior right upper lobe (image 132 of series 3) persists unchanged frank red with August 10, 2020 and shows no abnormal FDG uptake (image 132 series 3 this examination com pared with image 92 series 3 on the prior PET scan). No new pulmonary nodules. Chest wall shows stable lipoma in the right subscapularis muscle. Previously evident subcutaneous emp hysema in the anterior right chest wall has since resolved. Abdomen and pelvis shows multiple gas-filled mildly distended bowel loops. Surgical changes from prev ious partial colectomy on the right. There is extensive aortic calcifications without aneurysmal dila tion. Calcified mass in the low left pelvis is suggestive of a calcified fibroid. No acute or aggressive appearing bony lesions. Lumbar spinal decompressive surgical changes with ari and pedicle screw construct fusion hardware is redemonstrated. IMPRESSION: Positive treatment response with decrease in size of the right middle lobe spiculated pulmonary nodul e. No evidence of disease progression. Electronically signed by: Edmund Wagner MD (01/04/2021 6:22 PM) [id number]
== END ==
LOC: PETSC 08:06
PROVIDERS: ATTEND Radiology Radiation Oncology
DX: C34.11 Malignant neoplasm of upper lobe, right bronchus or lung (principal); J43.2 Centrilobular emphysema; R91.1 Solitary pulmonary nodule
CPT/HCPCS: 78815; A9552

== ENCOUNTER 2021-04-22 01:01 | Inpatient (IN) | payer MEDICARE ==
[~2021-04-22] VITALS: Ht 170.2 cm; Wt 71.8 kg
--- NOTE | 2021-04-22 01:26 | EKG ---
[facility] [address] [place] [address] Test Date: 2021-04-22 Test Time: 01:13:02 Pat Name: ELLE LATHAM Department: Room: Gender: F Auto Washer: : 1945 Requested By: LUCY WHALEN Order Number: [id number] Reading MD: Measurements Intervals [place] Rate: 87 P: VA: QRS: 7 QRSD: 80 T: 57 QT: 398 QTc: 480 Interpretive Statements ATRIAL FLUTTER PROLONGED QT ABNORMAL ECG RI6.02 Compared to ECG 04/22/2021 01:11:41 Prolonged QT interval now present Supraventricular rhythm no longer present
[2021-04-22] MEDS ORDERED: DEXAMETHASONE SOD PHOS 4 MG/ML VIAL IVP ONE (01:30)
[2021-04-22 01:33] LABS: BASO # 0.1 x10^3/uL (0.0-0.2); BASO % 1 % (0-3); EOS # 0.5 x10^3/uL (0.0-0.7); EOS % 7 % (0-3); HEMATOCRIT 39.6 % (36.0-47.0); HEMOGLOBIN 13.3 g/dL (12.0-15.5); LYMPH # 1.8 x10^3/uL (1.0-4.8); LYMPH % 27 % (24-48); MEAN CORPUSCULAR HEMOGLOBIN 31 pg (25-35); MEAN CORPUSCULAR HGB CONC 34 g/dL (31-37); MEAN CORPUSCULAR VOLUME 91 fL (79-100); MONO # 0.5 x10^3/uL (0.0-1.1); MONO % 7 % (0-9); NEUT # 3.8 x10^3/uL (1.8-7.7); NEUT % 57 % (31-73); PLATELET COUNT 177 x10^3/uL (140-400); RED BLOOD COUNT 4.33 x10^6/uL (3.50-5.40); RED CELL DISTRIBUTION WIDTH 14.2 % (11.5-14.5); WHITE BLOOD COUNT 6.7 x10^3/uL (4.0-11.0)
[2021-04-22] MEDS: IPRATRPIUM/ALBUTEROL 0.5/2.5MG 3 ML NEBU. NEB ONE ×2 (01:40→02:29)
[2021-04-22 01:41] LABS: PROTHROMBIN TIME PATIENT 13.9 SEC (11.7-14.0)
[2021-04-22 01:45] LABS: CREATININE 1.1 mg/dL (0.6-1.0); GFR 58.3; POTASSIUM 3.7 mmol/L (3.5-5.1)
[2021-04-22 01:51] LABS: ALBUMIN 4.2 g/dL (3.4-5.0); ALBUMIN/GLOBULIN RATIO 1.1 (1.0-1.7); TOTAL BILIRUBIN 0.7 mg/dL (0.2-1.0); TOTAL PROTEIN 7.9 g/dL (6.4-8.2)
--- NOTE | 2021-04-22 01:52 | PHYS DOC ---
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 Past Surgical History: Tonsillectomy, Other Additional Past Surgical Histo: PARTIAL PANCREATECTOMY Smoking Status: Current Every Day Smoker Alcohol Use: Occasionally Drug Use: None General Adult EDM: Chief Complaint: SHORTNESS OF BREATH HPI: HPI: Patient is a 75 year old [f__sex] who presents with [] Review of Systems: Review of Systems: Constitutional: Denies fever or chills Eyes: Denies redness or eye pain HENT: Denies nasal congestion or sore throat Respiratory: Denies cough or shortness of breath Cardiovascular: Denies chest pain or palpitations GI: Denies abdominal pain, nausea, or vomiting : Denies dysuria or hematuria Musculoskeletal: Denies back pain or joint pain Integument: Denies rash or skin lesions Neurologic: Denies headache, focal weakness or sensory changes Complete systems were reviewed and found to be within normal limits, except as documented in this note. Heart Score: C/O Chest Pain: N/A Current Medications: Current Medications Medications (Trade) Dose Ordered Sig/Buffy Start Time Stop Time Status Last Admin Dose Admin Albuterol/ Ipratropium (Duoneb) 3 ml 1X ONCE 04/22/21 01:30 04/22/21 01:31 DC 04/22/21 01:40 3 ML Dexamethasone Sodium Phosphate (Decadron) 10 mg 1X ONCE 04/22/21 01:30 04/22/21 01:31 DC 04/22/21 01:37 10 MG Allergies: Allergies: Allergies Coded Allergies Type Severity Reaction Last Updated Verified Penicillins Allergy Intermediate 04/05/20 Yes Physical Exam: PE: Constitutional: Well developed, well nourished, no acute distress, non-toxic appearance HENT: Normocephalic, atraumatic Eyes: PERRL, EOMI, conjunctiva normal, no discharge Neck: Normal range of motion, no tenderness, supple Lungs & Thorax: No respiratory distress, equal chest rise and fall Abdomen: Soft, no tenderness Skin: Warm, dry, no erythema, no rash Back: No tenderness, no CVA tenderness Extremities: No tenderness, ROM intact, no edema Neurologic: Alert and oriented X 3, normal motor function, normal sensory function, no focal deficits noted Psychologic: Affect normal, judgment normal Current Patient Data: Labs: Laboratory Tests Test 04/22/21 01:20 White Blood Count 6.7 x10^3/uL (4.0-11.0) Red Blood Count 4.33 x10^6/uL (3.50-5.40) Hemoglobin 13.3 g/dL (12.0-15.5) Hematocrit 39.6 % (36.0-47.0) Mean Corpuscular Volume 91 fL (79-100) Mean Corpuscular Hemoglobin 31 pg (25-35) Mean Corpuscular Hemoglobin Concent 34 g/dL (31-37) Red Cell Distribution Width 14.2 % (11.5-14.5) Platelet Count 177 x10^3/uL (140-400) Neutrophils (%) (Auto) 57 % (31-73) Lymphocytes (%) (Auto) 27 % (24-48) Monocytes (%) (Auto) 7 % (0-9) Eosinophils (%) (Auto) 7 % (0-3) H Basophils (%) (Auto) 1 % (0-3) Neutrophils # (Auto) 3.8 x10^3/uL (1.8-7.7) Lymphocytes # (Auto) 1.8 x10^3/uL (1.0-4.8) Monocytes # (Auto) 0.5 x10^3/uL (0.0-1.1) Eosinophils # (Auto) 0.5 x10^3/uL (0.0-0.7) Basophils # (Auto) 0.1 x10^3/uL (0.0-0.2) Prothrombin Time 13.9 SEC (11.7-14.0) Prothrombin Time INR 1.1 (0.8-1.1) Activated Partial Thromboplast Time 32 SEC (24-38) Sodium Level 144 mmol/L (136-145) Potassium Level 3.7 mmol/L (3.5-5.1) Chloride Level 104 mmol/L (98-107) Carbon Dioxide Level 31 mmol/L (21-32) Anion Gap 9 (6-14) Blood Urea Nitrogen 17 mg/dL (7-20) Creatinine 1.1 mg/dL (0.6-1.0) H Estimated GFR (Cockcroft-Gault) 58.3 BUN/Creatinine Ratio 15 (6-20) Glucose Level 118 mg/dL (70-99) H Calcium Level 10.0 mg/dL (8.5-10.1) Total Bilirubin Pending Aspartate Amino Transferase (AST) Pending Alanine Aminotransferase (ALT) Pending Alkaline Phosphatase Pending Total Protein Pending Albumin Pending Albumin/Globulin Ratio Pending Laboratory Tests 04/22/21 01:20 Laboratory Tests 04/22/21 01:20 Vital Signs: Vital Signs Date Time Temp Pulse Resp B/P (MAP) Pulse Ox O2 Delivery O2 Flow Rate FiO2 04/22/21 01:25 94 BiPAP/CPAP EKG: EKG: @0113 NSR at 87bpm, NO ST elevation, baseline artifact noted in precordial leads, PAC noted, QRS 80ms, QT/QTc 398/480ms Radiology/Procedures: Radiology/Procedures: PROCEDURE: CT ANGIOGRAPHY CHEST CTA CHEST History: Short of breath. Cancer. Technique: CT of the chest was performed with intravenous contrast. PE protocol. Maximum intensity projection coronal and sagittal reconstructions were performed. Exposure: One or more of the following individualized dose reduction techniques were utilized for this examination: 1. Automated exposure control 2. Adjustment of the mA and/or kV according to patient size 3. Use of iterative reconstruction technique. Comparison: August 15, 2020. PET CT January 04, 2021 Findings: Chest: Enlarged thyroid, unchanged. No pathologic lymphadenopathy. No pulmonary embolism allowing for mild respiratory degradation within the lung bases. No aortic aneurysm or dissection. Atheromatous plaque within the aorta and branch vessels. Severe pulmonary emphysema. Elevation the right hemidiaphragm with adjacent atelectasis. No consolidation or pleural effusion. No pneumothorax. Diffuse bronchial wall thickening with increased multifocal mucus plugging. Unchanged spiculated the right middle lobe nodule measures 0.9 cm (series 3 image 68). 3 mm left upper lobe pleural-based nodule (image 68), unchanged. 2 mm left lower lobe pulmonary nodule (image 46), unchanged. 2 minor right upper lobe pulmonary nodules pleural-based (series 46 and 38), unchanged. Upper abdomen: Dilated loops of bowel within the imaged upper abdomen, partially imaged. Bones: No pathologic osseous lesions. Impression: 1. No evidence of pulmonary embolism allowing for mild respiratory degradation. 2. Diffuse bronchial wall thickening with increased multifocal mucus plugging, may indicate bronchitis. 3. Unchanged spiculated right middle lobe pulmonary nodule compatible with known malignancy. 4. Severe pulmonary emphysema. 5. Dilated loops of bowel within the imaged upper abdomen partially imaged. Recommend dedicated imaging if persistent clinical concern. Electronically signed by: Landen Warner DO (04/22/2021 2:57 AM) [facility] Course & Med Decision Making: Course & Med Decision Making Pertinent Labs and Imaging studies reviewed. (See chart for details) [] Dragon Disclaimer: Dragon Disclaimer: This electronic medical record was generated, in whole or in part, using a voice recognition dictation system. Departure Departure Impression: Primary Impression: COPD exacerbation Additional Impression: Hypoxia Disposition: ADMITTED INPATIENT Admitting Physician: NILA ([facility]) Condition: STABLE Referrals: MINI TREJO (PCP) LUCY WHALEN DO Apr 22, 2021 01:52
[2021-04-22] MEDS ORDERED: CONTRAST GIVEN. MC PRN (02:00)
[2021-04-22 02:08] LABS: BASE EXCESS COOX 3 mmol/L (-3-3); HCO3 COOX 28 mmol/L (21-28); METHEMOGLOBIN 0.3 % (0.0-1.9); OXYHEMOGLOBIN 92.8 %; PCO2 COOX 45 mmHg (35-46); PO2 COOX 75 mmHg (65-108); SAT O2 COOX 94 % (92-99)
[2021-04-22] MEDS ORDERED: IOHEXOL 350 MG/ML 100 ML VIAL. IV ONE (02:30)
--- NOTE | 2021-04-22 02:59 | RAD ---
CTA CHEST History: Short of breath. Cancer. Technique: CT of the chest was performed with intravenous contrast. PE protocol. Maximum intensity pr ojection coronal and sagittal reconstructions were performed. Exposure: One or more of the following individualized dose reduction techniques were utilized for thi s examination: 1. Automated exposure control 2. Adjustment of the mA and/or kV according to patient size 3. Use of iterative reconstruction technique. Comparison: August 15, 2020. PET CT January 04, 2021 Findings: Chest: Enlarged thyroid, unchanged. No pathologic lymphadenopathy. No pulmonary embolism allowing for mild respiratory degradation within the lung bases. No aortic aneurysm or dissection. Atheromatous p laque within the aorta and branch vessels. Severe pulmonary emphysema. Elevation the right hemidiaphragm with adjacent atelectasis. No consolidation or pleural effusion. No pneumothorax. Diffuse bronchial wall thickening with increased multifocal mucus plugging. Unchanged spiculated the right middle lobe nodule measures 0.9 cm (series 3 image 68). 3 mm left upper lobe pleural-based nodu le (image 68), unchanged. 2 mm left lower lobe pulmonary nodule (image 46), unchanged. 2 minor right upper lobe pulmonary nodules pleural-based (series 46 and 38), unchanged. Upper abdomen: Dilated loops of bowel within the imaged upper abdomen, partially imaged. Bones: No pathologic osseous lesions. Impression: 1. No evidence of pulmonary embolism allowing for mild respiratory degradation. 2. Diffuse bronchial wall thickening with increased multifocal mucus plugging, may indicate bronchit is. 3. Unchanged spiculated right middle lobe pulmonary nodule compatible with known malignancy. 4. Severe pulmonary emphysema. 5. Dilated loops of bowel within the imaged upper abdomen partially imaged. Recommend dedicated imag ing if persistent clinical concern. Electronically signed by: Landen Warner DO (04/22/2021 2:57 AM) [facility]
[2021-04-22] MEDS ORDERED: ACETAMINOPHEN 325 MG TABLET. PO PRN ×2 (03:30→07:30)
[2021-04-22] MEDS ORDERED: DOXYCYCLINE HYCLATE 100 MG TABLET PO ONE (03:30)
[2021-04-22] MEDS ORDERED: ONDANSETRON PF 4 MG/2 ML VIAL. IV PRN ×2 (03:30→07:30)
[2021-04-22] MEDS ORDERED: ALBUTEROL SULFATE 2.5 MG/3 ML NEBU. NEB PRN ×2 (03:45→06:00)
[2021-04-22 04:45] VITALS: BP 159/85
[2021-04-22] MEDS ORDERED: GABA-585 PO (05:39)
[2021-04-22] MEDS ORDERED: HYDR-2761 PO (05:39)
[2021-04-22] MEDS ORDERED: LIDO1ADH TP (05:40)
[2021-04-22] MEDS ORDERED: FLUT1BLS3 IH (05:42)
[2021-04-22] MEDS ORDERED: DULO60CA6 PO (05:42)
[2021-04-22] MEDS ORDERED: IRBE300T23 PO (05:43)
--- NOTE | 2021-04-22 07:20 | PDOC1 ---
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 Patient denies any chest pain. Patient denies any abdominal pain, no nausea vomiting. CTPA negative for PE, shows known mass in right lung. WBC 6.7, Hb 13.3, Platelets 177, Na 144, K 3.7, BUN 17, Cr 1.1, BNP 109, Trop 0, Glucose 118. EKG appears to be sinus arrhythmia with multiple PACs and variable P wave morphology rate of 87 bpm QTC 480, no ST segment elevation. She states she has tried using her inhaler with no relief. Patient was given DuoNeb treatment and Solu-Medrol IV in the ED, she continued to be short of breath especially on speaking. Breathing treatments ordered without significant improvement. She was hypoxic requiring increase of her O2 to 4 L nasal cannula and eventually BIPAP with some relief. Admitted for further care. Past Medical History Cardiovascular: HTN Pulmonary: Asthma, Bronchitis, COPD Past Surgical History Past Surgical History: Colectomy, Colon Resection Family History Family History: Heart Disease Family History: Parent Social History Smoke: <1 pack per day ALCOHOL: none Drugs: None Current Problem List Problem List Problems Medical Problems: (1) COPD exacerbation Status: Acute (2) Hypoxia Status: Acute Current Medications Current Medications Current Medications Dexamethasone Sodium Phosphate (Decadron) 10 mg 1X ONCE IVP Last administered on 04/22/21at 01:37; Start 04/22/21 at 01:30; Stop 04/22/21 at 01:31; Status DC Albuterol/ Ipratropium (Duoneb) 3 ml 1X ONCE NEB Last administered on 04/22/21at 02:29; Start 04/22/21 at 01:30; Stop 04/22/21 at 01:31; Status DC Iohexol (Omnipaque 350 Mg/ml) 80 ml 1X ONCE IV Last administered on 04/22/21at 02:32; Start 04/22/21 at 02:30; Stop 04/22/21 at 02:31; Status DC Info (CONTRAST GIVEN -- Rx MONITORING) 1 each PRN DAILY PRN MC SEE COMMENTS; Start 04/22/21 at 02:00; Stop 04/24/21 at 01:59 Doxycycline Hyclate (Vibra-Tab) 100 mg 1X ONCE PO Last administered on 04/22/21at 03:23; Start 04/22/21 at 03:30; Stop 04/22/21 at 03:31; Status DC Ondansetron HCl (Zofran) 4 mg PRN Q8HRS PRN IV NAUSEA/VOMITING 1st choice; Start 04/22/21 at 03:30; Stop 04/23/21 at 03:29 Acetaminophen (Tylenol) 650 mg PRN Q4HRS PRN PO FEVER > 100.3'F; Start 04/22/21 at 03:30; Stop 04/23/21 at 03:29 Albuterol Sulfate (Ventolin Neb Soln) 2.5 mg PRN Q4HRS PRN NEB WHEEZING; Start 04/22/21 at 03:45 Albuterol Sulfate (Ventolin Neb Soln) 2.5 mg PRN BID PRN NEB SHORTNESS OF BREATH; Start 04/22/21 at 06:00; Stop 04/22/21 at 06:08; Status DC Gabapentin (Neurontin) 100 mg TID PO ; Start 04/22/21 at 09:00 Acetaminophen/ Hydrocodone Bitart (Lortab 5/325) 1 tab PRN Q8HRS PRN PO MODERATE PAIN 4-6; Start 04/22/21 at 06:00 Albuterol/ Ipratropium (Duoneb) 3 ml RTQID NEB ; Start 04/22/21 at 08:00 Memantine (Namenda) 10 mg BID PO ; Start 04/22/21 at 09:00 Spironolactone (Aldactone) 25 mg DAILY PO ; Start 04/22/21 at 09:00 Non-Formulary Medication (Albuterol Sulfate (Ventolin Hfa Inhaler)) 2 puff Q4HRS INH ; Start 04/22/21 at 08:00; Status UNV Duloxetine HCl (Cymbalta) 120 mg DAILY PO ; Start 04/22/21 at 09:00 Budesonide (Pulmicort) 0.5 mg RTBID NEB ; Start 04/22/21 at 08:00 Losartan Potassium (Cozaar) 100 mg DAILY PO ; Start 04/22/21 at 09:00 Lidocaine (Lidoderm) 1 patch DAILY TD ; Start 04/22/21 at 09:00 Oxybutynin Chloride (Ditropan) 5 mg CTH129 PO ; Start 04/22/21 at 09:00 Guaifenesin (Robitussin Dm) 10 ml PRN Q6HRS PRN PO COUGH; Start 04/22/21 at 06:00 Miscellaneous (Lidoderm Patch Removal) 1 ea QHS MC ; Start 04/22/21 at 21:00 Active Scripts Active Duoneb 0.5-3(2.5) Mg/3 Ml (Albuterol/Ipratropium) 3 Ml Ampul.neb 3 Ml NEB BID Reported Irbesartan 300 Mg Tablet 300 Mg PO DAILY Cymbalta (Duloxetine Hcl) 60 Mg Capsule.dr 120 Mg PO DAILY Trelegy Ellipta 100-62.5-25 (Fluticasone/Umeclidin/Vilanter) 1 Each Blst.w.dev 1 Each IH DAILY Lidopatch (Lidocaine/Menthol) 1 Each Adh..patch 1 Each TP DAILY Hydrocodone-Apap 5-325 (Hydrocodone Bit/Acetaminophen) 1 Tab Tablet 1 Tab PO DAILY Gabapentin (Gabapentin) 100 Mg Capsule 100 Mg PO TID Albuterol Sulfate Neb Soln (Albuterol Sulfate) 2.5 Mg/3 Ml Vial.neb 1 Inh NEB Q4-6HRS PRN Namenda (Memantine Hcl) 10 Mg Tablet 1 Tab PO BID Oxybutynin Chloride Er (Oxybutynin Chloride) 15 Mg Tab.er.24 1 Tab PO DAILY Spironolactone 25 Mg Tablet 1 Tab PO DAILY Ventolin Hfa Inhaler (Albuterol Sulfate) 18 Gm Hfa.aer.ad 2 Puff INH Q4HRS Allergies Allergies: Coded Allergies: Penicillins (Verified Allergy, Intermediate, 04/05/20) ROS General: YES: Fatigue, Malaise; No: Chills, Night Sweats, Appetite, Other PSYCHOLOGICAL ROS: No: Anxiety, Behavioral Disorder, Concentration difficultie, Decreased libido, Depression, Disorientation, Hallucinations, Hostility, Irritablity, Memory difficulties, Mood Swings, Obsessive thoughts, Physical abuse, Sexual abuse, Sleep disturbances, Suicidal ideation, Other Eyes: No Blurry vision, No Decreased vision, No Double vision, No Dry eyes, No Excessive tearing, No Eye Pain, No Itchy Eyes, No Loss of vision, No Photophobia, No Scotomata, No Uses contacts, No Uses glasses, No Other HEENT: No: Heacaches, Visual Changes, Hearing change, Nasal congestion, Nasal discharge, Oral lesions, Sinus pain, Sore Throat, Epistaxis, Sneezing, Snoring, Tinnitus, Vertigo, Vocal changes, Other ALLERGY AND IMMUNOLOGY: No: Hives, Insect Bite Sensitivity, Itchy/Watery Eyes, Nasal Congestion, Post Nasal Drip, Seasonal Allergies, Other Hematological and Lymphatic: No: Bleeding Problems, Blood Clots, Blood Transfusions, Brusing, Night Sweats, Pallor, Swollen Lymph Nodes, Other ENDOCRINE: No: Breast Changes, Galactorrhea, Hair Pattern Changes, Hot Flashes, Malaise/lethargy, Mood Swings, Palpitations, Polydipsia/polyuria, Skin Changes, Temperature Intolerance, Unexpected Weight Changes, Other Breast: No New/Changing Breast Lumps, No Nipple changes, No Nipple discharge, No Other Respiratory: YES: Shortness of breath, SOB with excertion; No: Cough, Hemoptysis, Orthopnea, Pleuritic Pain, Sputum Changes, Stridor, Tachypnea, Wheezing, Other Cardiovascular: No Chest Pain, No Palpitations, No Orthopnea, No Paroxysmal N oc. Dyspnea, No Edema, No Lt Headedness, No Other Gastrointestinal: No Nausea, No Vomiting, No Abdominal Pain, No Diarrhea, No Constipation, No Melena, No Hematochezia, No Other Genitourinary: No Dysuria, No Frequency, No Incontinence, No Hematuria, No Retention, No Discharge, No Urgency, No Pain, No Flank Pain, No Other, No , No , No , No , No , No , No Musculoskeletal: No Gait Disturbance, No Joint Pain, No Joint Stiffness, No Joint Swelling, No Muscle Pain, No Muscular Weakness, No Pain In:, No Swelling In:, No Other Neurological: No Behavorial Changes, No Bowel/Bladder ControlChng, No Confusion, No Dizziness, No Gait Disturbance, No Headaches, No Impaired Coord/balance, No Memory Loss, No Numbness/Tingling, No Seizures, No Speech Problems, No Tremors, No Visual Changes, No Weakness, No Other Skin: No Dry Skin, No Eczema, No Hair Changes, No Lumps, No Mole Changes, No Mottling, No Nail Changes, No Pruritus, No Rash, No Skin Lesion Changes, No Other, No Acne Physical Exam General: Alert, Oriented X3, Cooperative, moderate distress HEENT: Atraumatic, PERRLA, EOMI, Mucous membr. moist/pink Lungs: Other (Bilateral wheezes) Heart: S1S2, RRR, no thrills, no rubs, no gallops, no murmurs Abdomen: Normal bowel sounds, Soft, No tenderness, No hepatosplenomegaly, No masses Rectal Exam: not examined Extremities: No clubbing, No cyanosis, No edema, Normal pulses, No tenderne ss/swelling Skin: No rashes, No breakdown, No significant lesion Neuro: Normal gait, Normal speech, Strength at 5/5 X4 ext, Normal tone, Sensation intact, Cranial nerves 3-12 NL, Reflexes 2+ Psych/Mental Status: Mental status NL, Mood NL Vitals Vitals Vital Signs Date Time Temp Pulse Resp B/P (MAP) Pulse Ox O2 Delivery O2 Flow Rate FiO2 04/22/21 05:31 Nasal Cannula 5.0 04/22/21 04:45 98.0 73 22 159/85 (109) 92 98.0 Labs Labs Laboratory Tests Test 04/22/21 01:20 04/22/21 02:05 White Blood Count 6.7 x10^3/uL (4.0-11.0) Red Blood Count 4.33 x10^6/uL (3.50-5.40) Hemoglobin 13.3 g/dL (12.0-15.5) Hematocrit 39.6 % (36.0-47.0) Mean Corpuscular Volume 91 fL (79-100) Mean Corpuscular Hemoglobin 31 pg (25-35) Mean Corpuscular Hemoglobin Concent 34 g/dL (31-37) Red Cell Distribution Width 14.2 % (11.5-14.5) Platelet Count 177 x10^3/uL (140-400) Neutrophils (%) (Auto) 57 % (31-73) Lymphocytes (%) (Auto) 27 % (24-48) Monocytes (%) (Auto) 7 % (0-9) Eosinophils (%) (Auto) 7 % (0-3) Basophils (%) (Auto) 1 % (0-3) Neutrophils # (Auto) 3.8 x10^3/uL (1.8-7.7) Lymphocytes # (Auto) 1.8 x10^3/uL (1.0-4.8) Monocytes # (Auto) 0.5 x10^3/uL (0.0-1.1) Eosinophils # (Auto) 0.5 x10^3/uL (0.0-0.7) Basophils # (Auto) 0.1 x10^3/uL (0.0-0.2) Prothrombin Time 13.9 SEC (11.7-14.0) Prothromb Time International Ratio 1.1 (0.8-1.1) Activated Partial Thromboplast Time 32 SEC (24-38) Sodium Level 144 mmol/L (136-145) Potassium Level 3.7 mmol/L (3.5-5.1) Chloride Level 104 mmol/L (98-107) Carbon Dioxide Level 31 mmol/L (21-32) Anion Gap 9 (6-14) Blood Urea Nitrogen 17 mg/dL (7-20) Creatinine 1.1 mg/dL (0.6-1.0) Estimated GFR (Cockcroft-Gault) 58.3 BUN/Creatinine Ratio 15 (6-20) Glucose Level 118 mg/dL (70-99) Lactic Acid Level 1.1 mmol/L (0.4-2.0) Calcium Level 10.0 mg/dL (8.5-10.1) Total Bilirubin 0.7 mg/dL (0.2-1.0) Aspartate Amino Transf (AST/SGOT) 24 U/L (15-37) Alanine Aminotransferase (ALT/SGPT) 30 U/L (14-59) Alkaline Phosphatase 79 U/L (46-116) Creatine Kinase 269 U/L (26-192) Creatine Kinase MB (Mass) 5.8 ng/mL (0.0-3.6) Creatine Kinase MB Relative Index 2.2 % (0-4) Troponin I Quantitative < 0.017 ng/mL (0.000-0.055) BW-Fif-B-Type Natriuretic Peptide 109 pg/mL (0-449) Total Protein 7.9 g/dL (6.4-8.2) Albumin 4.2 g/dL (3.4-5.0) Albumin/Globulin Ratio 1.1 (1.0-1.7) O2 Saturation 94 % (92-99) Arterial Blood pH 7.41 (7.35-7.45) Arterial Blood pCO2 at Patient Temp 45 mmHg (35-46) Arterial Blood pO2 at Patient Temp 75 mmHg (65-108) Arterial Blood HCO3 28 mmol/L (21-28) Arterial Blood Base Excess 3 mmol/L (-3-3) Oxyhemoglobin 92.8 % Methemoglobin 0.3 % (0.0-1.9) Carbon Monoxide, Quantitative 1.4 % (0.0-1.9) FiO2 50 Laboratory Tests Test 04/22/21 01:20 04/22/21 02:05 White Blood Count 6.7 x10^3/uL (4.0-11.0) Red Blood Count 4.33 x10^6/uL (3.50-5.40) Hemoglobin 13.3 g/dL (12.0-15.5) Hematocrit 39.6 % (36.0-47.0) Mean Corpuscular Volume 91 fL (79-100) Mean Corpuscular Hemoglobin 31 pg (25-35) Mean Corpuscular Hemoglobin Concent 34 g/dL (31-37) Red Cell Distribution Width 14.2 % (11.5-14.5) Platelet Count 177 x10^3/uL (140-400) Neutrophils (%) (Auto) 57 % (31-73) Lymphocytes (%) (Auto) 27 % (24-48) Monocytes (%) (Auto) 7 % (0-9) Eosinophils (%) (Auto) 7 % (0-3) Basophils (%) (Auto) 1 % (0-3) Neutrophils # (Auto) 3.8 x10^3/uL (1.8-7.7) Lymphocytes # (Auto) 1.8 x10^3/uL (1.0-4.8) Monocytes # (Auto) 0.5 x10^3/uL (0.0-1.1) Eosinophils # (Auto) 0.5 x10^3/uL (0.0-0.7) Basophils # (Auto) 0.1 x10^3/uL (0.0-0.2) Prothrombin Time 13.9 SEC (11.7-14.0) Prothromb Time International Ratio 1.1 (0.8-1.1) Activated Partial Thromboplast Time 32 SEC (24-38) Sodium Level 144 mmol/L (136-145) Potassium Level 3.7 mmol/L (3.5-5.1) Chloride Level 104 mmol/L (98-107) Carbon Dioxide Level 31 mmol/L (21-32) Anion Gap 9 (6-14) Blood Urea Nitrogen 17 mg/dL (7-20) Creatinine 1.1 mg/dL (0.6-1.0) Estimated GFR (Cockcroft-Gault) 58.3 BUN/Creatinine Ratio 15 (6-20) Glucose Level 118 mg/dL (70-99) Lactic Acid Level 1.1 mmol/L (0.4-2.0) Calcium Level 10.0 mg/dL (8.5-10.1) Total Bilirubin 0.7 mg/dL (0.2-1.0) Aspartate Amino Transf (AST/SGOT) 24 U/L (15-37) Alanine Aminotransferase (ALT/SGPT) 30 U/L (14-59) Alkaline Phosphatase 79 U/L (46-116) Creatine Kinase 269 U/L (26-192) Creatine Kinase MB (Mass) 5.8 ng/mL (0.0-3.6) Creatine Kinase MB Relative Index 2.2 % (0-4) Troponin I Quantitative < 0.017 ng/mL (0.000-0.055) JC-Pfe-E-Type Natriuretic Peptide 109 pg/mL (0-449) Total Protein 7.9 g/dL (6.4-8.2) Albumin 4.2 g/dL (3.4-5.0) Albumin/Globulin Ratio 1.1 (1.0-1.7) O2 Saturation 94 % (92-99) Arterial Blood pH 7.41 (7.35-7.45) Arterial Blood pCO2 at Patient Temp 45 mmHg (35-46) Arterial Blood pO2 at Patient Temp 75 mmHg (65-108) Arterial Blood HCO3 28 mmol/L (21-28) Arterial Blood Base Excess 3 mmol/L (-3-3) Oxyhemoglobin 92.8 % Methemoglobin 0.3 % (0.0-1.9) Carbon Monoxide, Quantitative 1.4 % (0.0-1.9) FiO2 50 Images Images CTPA: Chest: Enlarged thyroid, unchanged. No pathologic lymphadenopathy. No pulmonary embolism allowing for mild respiratory degradation within the lung bases. No aortic aneurysm or dissection. Atheromatous plaque within the aorta and branch vessels. Severe pulmonary emphysema. Elevation the right hemidiaphragm with adjacent atelectasis. No consolidation or pleural effusion. No pneumothorax. Diffuse bronchial wall thickening with increased multifocal mucus plugging. Unchanged spiculated the right middle lobe nodule measures 0.9 cm (series 3 image 68). 3 mm left upper lobe pleural-based nodule (image 68), unchanged. 2 mm left lower lobe pulmonary nodule (image 46), unchanged. 2 minor right upper lobe pulmonary nodules pleural-based (series 46 and 38), unchanged. Upper abdomen: Dilated loops of bowel within the imaged upper abdomen, partially imaged. Bones: No pathologic osseous lesions. Impression: 1. No evidence of pulmonary embolism allowing for mild respiratory degradation. 2. Diffuse bronchial wall thickening with increased multifocal mucus plugging, may indicate bronchitis. 3. Unchanged spiculated right middle lobe pulmonary nodule compatible with known malignancy. 4. Severe pulmonary emphysema. 5. Dilated loops of bowel within the imaged upper abdomen partially imaged. Recommend dedicated imaging if persistent clinical concern. VTE Prophylaxis Ordered VTE Prophylaxis Devices: Yes VTE Pharmacological Prophylaxi: Yes Assessment/Plan Assessment/Plan A/P: Acute shortness of breath - likely COPD exacerbation. Aggressive nebs. IV steroids. Pulm consulted Adenocarcinoma of right lung - has f/u with heme/onc COPD (chronic obstructive pulmonary disease) with acute exacerbation - nebs ordered, steroids. Consult pulm Abnormal CT chest - will give antibiotics for bronchitis, early pneumonia, likely gram negative infection/atypical Acute on chronic hypoxic respiratory failure - on chronic hypoxia, likely from smoking with COPD exacerbation, will wean as tolerated to baseline. She is requesting a portable concentrator, has run out twice at her last 2 doctors appointments. Prediabetes - A1c 5.8 - cont home meds, sliding scale HTN - cont meds Recent right hemicolectomy with a revision - recovered well Current smoker - offered nicotine patch, cessation counseling FEN - ADA diet PPX - lovenox FULL CODE Dispo - inpatient for 2 midnights Justifications for Admission Other Justification FLORY NEAL MD Apr 22, 2021 07:20
[2021-04-22] MEDS: BUDESONIDE 0.5 MG/2 ML NEBU. NEB SCH ×2 (07:43→19:48)
[2021-04-22] MEDS: IPRATRPIUM/ALBUTEROL 0.5/2.5MG 3 ML NEBU. NEB SCH ×4 (07:44→19:48)
[2021-04-22 07:50] VITALS: BP 140/92
[2021-04-22] MEDS ORDERED: NON FORMULARY ITEM (Albuterol Sulfate (Ventolin Hfa Inhaler) 2 PUFF) INH SCH (08:00)
[2021-04-22] MEDS ORDERED: NICOTINE 14MG PATCH. TD PRN (09:00)
[2021-04-22] MEDS: ENOXAPARIN 40 MG/0.4 ML SYRINGE. SQ SCH (09:08)
[2021-04-22] MEDS: MEMANTINE 10 MG TABLET. PO SCH ×2 (09:08→20:03)
[2021-04-22] MEDS: GABAPENTIN 100 MG CAPSULE. PO SCH ×3 (09:09→20:03)
[2021-04-22] MEDS: DULoxetine HCL 30 MG CAPSULE.DR PO SCH (09:09)
[2021-04-22] MEDS: LOSARTAN POTASSIUM 50 MG TABLET. PO SCH (09:10)
[2021-04-22] MEDS: OXYBUTYNIN CHLORIDE 5 MG TABLET PO SCH ×3 (09:10→20:03)
[2021-04-22] MEDS: SPIRONOLACTONE 25 MG TABLET PO SCH (09:10)
[2021-04-22] MEDS: LIDOCAINE (700MG/PATCH) PATCH. TD SCH (09:11)
[2021-04-22] MEDS: HYDROcodone/APAP 5/325MG 1 TAB TABLET PO PRN ×2 (09:14→20:04)
--- NOTE | 2021-04-22 09:42 | PDOC ---
PULMONARY PROGRESS NOTES DATE: 04/22/21 TIME: 09:41 Vitals Vital Signs Date Time Temp Pulse Resp B/P (MAP) Pulse Ox O2 Delivery O2 Flow Rate FiO2 04/22/21 09:14 96 Nasal Cannula 5.0 04/22/21 09:10 64 140/92 04/22/21 07:50 97.4 22 97.4 General: Alert, No acute distress Lungs: Crackles Cardiovascular: S1, S2 Abdomen: Soft, Non-tender, Other Extremities: No Edema Labs Laboratory Tests Test 04/22/21 01:20 04/22/21 02:05 White Blood Count 6.7 x10^3/uL (4.0-11.0) Red Blood Count 4.33 x10^6/uL (3.50-5.40) Hemoglobin 13.3 g/dL (12.0-15.5) Hematocrit 39.6 % (36.0-47.0) Mean Corpuscular Volume 91 fL (79-100) Mean Corpuscular Hemoglobin 31 pg (25-35) Mean Corpuscular Hemoglobin Concent 34 g/dL (31-37) Red Cell Distribution Width 14.2 % (11.5-14.5) Platelet Count 177 x10^3/uL (140-400) Neutrophils (%) (Auto) 57 % (31-73) Lymphocytes (%) (Auto) 27 % (24-48) Monocytes (%) (Auto) 7 % (0-9) Eosinophils (%) (Auto) 7 % (0-3) Basophils (%) (Auto) 1 % (0-3) Neutrophils # (Auto) 3.8 x10^3/uL (1.8-7.7) Lymphocytes # (Auto) 1.8 x10^3/uL (1.0-4.8) Monocytes # (Auto) 0.5 x10^3/uL (0.0-1.1) Eosinophils # (Auto) 0.5 x10^3/uL (0.0-0.7) Basophils # (Auto) 0.1 x10^3/uL (0.0-0.2) Prothrombin Time 13.9 SEC (11.7-14.0) Prothromb Time International Ratio 1.1 (0.8-1.1) Activated Partial Thromboplast Time 32 SEC (24-38) Sodium Level 144 mmol/L (136-145) Potassium Level 3.7 mmol/L (3.5-5.1) Chloride Level 104 mmol/L (98-107) Carbon Dioxide Level 31 mmol/L (21-32) Anion Gap 9 (6-14) Blood Urea Nitrogen 17 mg/dL (7-20) Creatinine 1.1 mg/dL (0.6-1.0) Estimated GFR (Cockcroft-Gault) 58.3 BUN/Creatinine Ratio 15 (6-20) Glucose Level 118 mg/dL (70-99) Lactic Acid Level 1.1 mmol/L (0.4-2.0) Calcium Level 10.0 mg/dL (8.5-10.1) Total Bilirubin 0.7 mg/dL (0.2-1.0) Aspartate Amino Transf (AST/SGOT) 24 U/L (15-37) Alanine Aminotransferase (ALT/SGPT) 30 U/L (14-59) Alkaline Phosphatase 79 U/L (46-116) Creatine Kinase 269 U/L (26-192) Creatine Kinase MB (Mass) 5.8 ng/mL (0.0-3.6) Creatine Kinase MB Relative Index 2.2 % (0-4) Troponin I Quantitative < 0.017 ng/mL (0.000-0.055) BJ-Iku-I-Type Natriuretic Peptide 109 pg/mL (0-449) Total Protein 7.9 g/dL (6.4-8.2) Albumin 4.2 g/dL (3.4-5.0) Albumin/Globulin Ratio 1.1 (1.0-1.7) O2 Saturation 94 % (92-99) Arterial Blood pH 7.41 (7.35-7.45) Arterial Blood pCO2 at Patient Temp 45 mmHg (35-46) Arterial Blood pO2 at Patient Temp 75 mmHg (65-108) Arterial Blood HCO3 28 mmol/L (21-28) Arterial Blood Base Excess 3 mmol/L (-3-3) Oxyhemoglobin 92.8 % Methemoglobin 0.3 % (0.0-1.9) Carbon Monoxide, Quantitative 1.4 % (0.0-1.9) FiO2 50 Laboratory Tests Test 04/22/21 01:20 04/22/21 02:05 White Blood Count 6.7 x10^3/uL (4.0-11.0) Red Blood Count 4.33 x10^6/uL (3.50-5.40) Hemoglobin 13.3 g/dL (12.0-15.5) Hematocrit 39.6 % (36.0-47.0) Mean Corpuscular Volume 91 fL (79-100) Mean Corpuscular Hemoglobin 31 pg (25-35) Mean Corpuscular Hemoglobin Concent 34 g/dL (31-37) Red Cell Distribution Width 14.2 % (11.5-14.5) Platelet Count 177 x10^3/uL (140-400) Neutrophils (%) (Auto) 57 % (31-73) Lymphocytes (%) (Auto) 27 % (24-48) Monocytes (%) (Auto) 7 % (0-9) Eosinophils (%) (Auto) 7 % (0-3) Basophils (%) (Auto) 1 % (0-3) Neutrophils # (Auto) 3.8 x10^3/uL (1.8-7.7) Lymphocytes # (Auto) 1.8 x10^3/uL (1.0-4.8) Monocytes # (Auto) 0.5 x10^3/uL (0.0-1.1) Eosinophils # (Auto) 0.5 x10^3/uL (0.0-0.7) Basophils # (Auto) 0.1 x10^3/uL (0.0-0.2) Prothrombin Time 13.9 SEC (11.7-14.0) Prothromb Time International Ratio 1.1 (0.8-1.1) Activated Partial Thromboplast Time 32 SEC (24-38) Sodium Level 144 mmol/L (136-145) Potassium Level 3.7 mmol/L (3.5-5.1) Chloride Level 104 mmol/L (98-107) Carbon Dioxide Level 31 mmol/L (21-32) Anion Gap 9 (6-14) Blood Urea Nitrogen 17 mg/dL (7-20) Creatinine 1.1 mg/dL (0.6-1.0) Estimated GFR (Cockcroft-Gault) 58.3 BUN/Creatinine Ratio 15 (6-20) Glucose Level 118 mg/dL (70-99) Lactic Acid Level 1.1 mmol/L (0.4-2.0) Calcium Level 10.0 mg/dL (8.5-10.1) Total Bilirubin 0.7 mg/dL (0.2-1.0) Aspartate Amino Transf (AST/SGOT) 24 U/L (15-37) Alanine Aminotransferase (ALT/SGPT) 30 U/L (14-59) Alkaline Phosphatase 79 U/L (46-116) Creatine Kinase 269 U/L (26-192) Creatine Kinase MB (Mass) 5.8 ng/mL (0.0-3.6) Creatine Kinase MB Relative Index 2.2 % (0-4) Troponin I Quantitative < 0.017 ng/mL (0.000-0.055) KJ-Rra-Q-Type Natriuretic Peptide 109 pg/mL (0-449) Total Protein 7.9 g/dL (6.4-8.2) Albumin 4.2 g/dL (3.4-5.0) Albumin/Globulin Ratio 1.1 (1.0-1.7) O2 Saturation 94 % (92-99) Arterial Blood pH 7.41 (7.35-7.45) Arterial Blood pCO2 at Patient Temp 45 mmHg (35-46) Arterial Blood pO2 at Patient Temp 75 mmHg (65-108) Arterial Blood HCO3 28 mmol/L (21-28) Arterial Blood Base Excess 3 mmol/L (-3-3) Oxyhemoglobin 92.8 % Methemoglobin 0.3 % (0.0-1.9) Carbon Monoxide, Quantitative 1.4 % (0.0-1.9) FiO2 50 Medications Active Scripts Medications Dose Route/Sig Max Daily Dose Days Date Category Irbesartan 300 Mg Tablet 300 Mg PO DAILY 04/22/21 Reported Cymbalta (Duloxetine Hcl) 60 Mg Capsule.dr 120 Mg PO DAILY 04/22/21 Reported Trelegy Ellipta 100-62.5-25 (Fluticasone/Umeclidin/Vilanter) 1 Each Blst.w.dev 1 Each IH DAILY 04/22/21 Reported Lidopatch (Lidocaine/Menthol) 1 Each Adh..patch 1 Each TP DAILY 04/22/21 Reported Hydrocodone-Apap 5-325 (Hydrocodone Bit/Acetaminophen) 1 Tab Tablet 1 Tab PO DAILY 04/22/21 Reported Gabapentin (Gabapentin) 100 Mg Capsule 100 Mg PO TID 04/22/21 Reported Albuterol Sulfate Neb Soln (Albuterol Sulfate) 2.5 Mg/3 Ml Vial.neb 1 Inh NEB Q4-6HRS PRN 09/06/20 Reported Namenda (Memantine Hcl) 10 Mg Tablet 1 Tab PO BID 08/02/20 Reported Oxybutynin Chloride Er (Oxybutynin Chloride) 15 Mg Tab.er.24 1 Tab PO DAILY 08/02/20 Reported Duoneb 0.5-3(2.5) Mg/3 Ml (Albuterol/Ipratropium) 3 Ml Ampul.neb 3 Ml NEB BID 01/15/19 Rx Spironolactone 25 Mg Tablet 1 Tab PO DAILY 11/12/16 Reported Ventolin Hfa Inhaler (Albuterol Sulfate) 18 Gm Hfa.aer.ad 2 Puff INH Q4HRS 11/11/16 Reported Impression . Acute on chronic hypoxemic respiratory failure Acute exacerbation COPD Possible discharge in the [facility] ALEJANDRA Gaspar MD Apr 22, 2021 09:42
[2021-04-22 10:09] VITALS: BP 144/84
--- NOTE | 2021-04-22 13:21 | NUR ---
SS following for discharge planning. SS reviewed pt chart and discussed with pt RN. Pt is from home and is currently requiring oxygen at four liters nasal canula. Per daughter, pt has home oxygen and concentrator. SS will continue to follow for discharge planning.
[2021-04-22 14:40] VITALS: BP 116/67
[2021-04-22 19:35] VITALS: BP 163/77
[2021-04-22] MEDS: guaiFENesin DM 200MG/20MG 10 ML SYRUP PO PRN (20:02)
[2021-04-22] MEDS: DOXYCYCLINE HYCLATE 100 MG TABLET PO SCH (20:03)
[2021-04-22] MEDS ORDERED: PATCH REMOVAL. MC SCH (21:00)
--- NOTE | 2021-04-22 22:22 | CONS ---
DATE OF CONSULTATION: 04/22/2021 ATTENDING PHYSICIAN: Dr. Rajan. REASON FOR CONSULTATION: The patient is seen in pulmonary consultation at the request of Dr. Rajan for increasing shortness of air. HISTORY OF PRESENT ILLNESS: The patient is a 75-year-old known to me from previous hospitalization. She is a patient of mine who follows up in the Outpatient Department. She has a prior history of lung cancer, diagnosed to have right-sided adenocarcinoma, poorly differentiated. She completed a course of radiation. She presents with acute onset of shortness of air. She had O2 saturation, which was decreased. She is normally on 4 liters of oxygen at home. Her sats at home were in the 70s-80s. The patient normally utilizes nebulized treatments at home. She ran out of her nebulized medication. She was using metered dose inhalers with no significant improvement. She has a cough, mostly nonproductive. She had a CT angiogram, which I personally reviewed. There was no evidence of pulmonary emboli. There was diffuse bronchial wall thickening compatible with bronchitis unchanged, spiculated right middle lobe pulmonary nodule compatible with known malignancy, severe pulmonary emphysema. PAST MEDICAL HISTORY: 1. Diagnosis of bronchogenic carcinoma status post radiation, status post biopsy of a right-sided lesion compatible with adenocarcinoma. 2. Chronic respiratory failure. 3. COPD. 4. Tobacco dependence, in remission. PAST SURGICAL HISTORY: 1. Status post colectomy. 2. Colon resection. FAMILY HISTORY: Heart disease. REVIEW OF SYSTEMS: CONSTITUTIONAL: No fever or chills. EYES: No change in visual acuity. HENT: No nasal congestion or sore throat. PULMONARY: As indicated above. CARDIOVASCULAR: No chest pain or pressure. GASTROINTESTINAL: No nausea, vomiting, diarrhea. GENITOURINARY: No dysuria or frequency. MUSCULOSKELETAL: No localized muscle aches or joint pains. SKIN: No new skin rashes. NEUROLOGIC: No headaches, diplopia or blurred vision. VACCINATION HISTORY: The patient is updated on her COVID-19 vaccine. CURRENT MEDICATIONS: List was reviewed. Please see MAR. PHYSICAL EXAMINATION: VITAL SIGNS: Stable. O2 saturation was greater than 92%. HEENT: Eyes: The sclerae were nonicteric. NECK: Jugular venous distention was not elevated. No lymphadenopathy. CHEST: Full expansion. LUNGS: She had poor airflow with expiratory wheeze. CARDIOVASCULAR: Regular rate and rhythm with S1, S2. No S3. She had a grade 3/4 systolic ejection murmur compatible with aortic stenosis. ABDOMEN: Soft, nontender, nondistended. EXTREMITIES: No clubbing, cyanosis or edema. LABORATORY DATA: Arterial blood gas on 50% FIO2, pH of 7.41, PaCO2 of 41, pO2 of 75. White count was normal. Hemoglobin and hematocrit were noted. Electrolytes were noted. DIAGNOSTIC DATA: CT angiogram is indicated above. IMPRESSION: 1. Acute on chronic respiratory failure secondary to acute exacerbation of chronic obstructive pulmonary disease. 2. Acute exacerbation of chronic obstructive pulmonary disease. 3. Negative CT angiogram for pulmonary embolism. 4. Abnormal CT angiogram revealing spiculated right middle lobe pulmonary nodule. Known lung cancer. 5. Acute nonspecific bronchitis. 6. Tobacco dependence, in remission. PLAN: 1. Continue IV steroids. 2. Doxycycline for nonspecific bronchitis. 3. Uncontrolled blood pressure. 4. Possible discharge in the morning. 5. Follow up in the office. She had a grade 3/4 systolic ejection murmur compatible with aortic stenosis. I do appreciate the privilege in sharing in this patient's care. WILBUR DR: Karolina TID: [id number]
[2021-04-22 23:45] VITALS: BP 153/69
[2021-04-23 03:15] VITALS: BP 139/78
[2021-04-23] MEDS: IPRATRPIUM/ALBUTEROL 0.5/2.5MG 3 ML NEBU. NEB SCH ×3 (07:11→16:05)
[2021-04-23] MEDS: BUDESONIDE 0.5 MG/2 ML NEBU. NEB SCH (07:11)
[2021-04-23 07:55] VITALS: BP 155/75
[2021-04-23] MEDS ORDERED: predniSONE 20 MG TABLET PO SCH (09:00)
[2021-04-23] MEDS: LIDOCAINE (700MG/PATCH) PATCH. TD SCH (09:01)
[2021-04-23] MEDS: LOSARTAN POTASSIUM 50 MG TABLET. PO SCH (09:02)
[2021-04-23] MEDS: SPIRONOLACTONE 25 MG TABLET PO SCH (09:02)
[2021-04-23] MEDS: OXYBUTYNIN CHLORIDE 5 MG TABLET PO SCH ×2 (09:02→14:38)
[2021-04-23] MEDS: MEMANTINE 10 MG TABLET. PO SCH (09:02)
[2021-04-23] MEDS: ENOXAPARIN 40 MG/0.4 ML SYRINGE. SQ SCH (09:02)
[2021-04-23] MEDS: DULoxetine HCL 30 MG CAPSULE.DR PO SCH (09:02)
[2021-04-23] MEDS: DOXYCYCLINE HYCLATE 100 MG TABLET PO SCH (09:03)
[2021-04-23] MEDS: HYDROcodone/APAP 5/325MG 1 TAB TABLET PO PRN (09:03)
[2021-04-23] MEDS: guaiFENesin DM 200MG/20MG 10 ML SYRUP PO PRN (09:03)
[2021-04-23] MEDS: GABAPENTIN 100 MG CAPSULE. PO SCH ×2 (09:03→14:38)
--- NOTE | 2021-04-23 10:12 | PDOC ---
PULMONARY PROGRESS NOTES DATE: 04/23/21 TIME: 10:12 Subjective No overnight events no increased SOB or cough want to go home today Vitals Vital Signs Date Time Temp Pulse Resp B/P (MAP) Pulse Ox O2 Delivery O2 Flow Rate FiO2 04/23/21 09:56 96 Nasal Cannula 4.0 04/23/21 09:02 79 155/75 04/23/21 07:55 97.9 18 97.9 ROS: No Nausea, No Chest Pain, No Abdominal Pain, No Increase Cough General: Alert, Oriented X4, No acute distress Lungs: Crackles Cardiovascular: S1, S2 Abdomen: Soft, Non-tender, Other Extremities: No Edema Labs Laboratory Tests Test 04/22/21 01:20 04/22/21 02:05 White Blood Count 6.7 x10^3/uL (4.0-11.0) Red Blood Count 4.33 x10^6/uL (3.50-5.40) Hemoglobin 13.3 g/dL (12.0-15.5) Hematocrit 39.6 % (36.0-47.0) Mean Corpuscular Volume 91 fL (79-100) Mean Corpuscular Hemoglobin 31 pg (25-35) Mean Corpuscular Hemoglobin Concent 34 g/dL (31-37) Red Cell Distribution Width 14.2 % (11.5-14.5) Platelet Count 177 x10^3/uL (140-400) Neutrophils (%) (Auto) 57 % (31-73) Lymphocytes (%) (Auto) 27 % (24-48) Monocytes (%) (Auto) 7 % (0-9) Eosinophils (%) (Auto) 7 % (0-3) Basophils (%) (Auto) 1 % (0-3) Neutrophils # (Auto) 3.8 x10^3/uL (1.8-7.7) Lymphocytes # (Auto) 1.8 x10^3/uL (1.0-4.8) Monocytes # (Auto) 0.5 x10^3/uL (0.0-1.1) Eosinophils # (Auto) 0.5 x10^3/uL (0.0-0.7) Basophils # (Auto) 0.1 x10^3/uL (0.0-0.2) Prothrombin Time 13.9 SEC (11.7-14.0) Prothromb Time International Ratio 1.1 (0.8-1.1) Activated Partial Thromboplast Time 32 SEC (24-38) Sodium Level 144 mmol/L (136-145) Potassium Level 3.7 mmol/L (3.5-5.1) Chloride Level 104 mmol/L (98-107) Carbon Dioxide Level 31 mmol/L (21-32) Anion Gap 9 (6-14) Blood Urea Nitrogen 17 mg/dL (7-20) Creatinine 1.1 mg/dL (0.6-1.0) Estimated GFR (Cockcroft-Gault) 58.3 BUN/Creatinine Ratio 15 (6-20) Glucose Level 118 mg/dL (70-99) Lactic Acid Level 1.1 mmol/L (0.4-2.0) Calcium Level 10.0 mg/dL (8.5-10.1) Total Bilirubin 0.7 mg/dL (0.2-1.0) Aspartate Amino Transf (AST/SGOT) 24 U/L (15-37) Alanine Aminotransferase (ALT/SGPT) 30 U/L (14-59) Alkaline Phosphatase 79 U/L (46-116) Creatine Kinase 269 U/L (26-192) Creatine Kinase MB (Mass) 5.8 ng/mL (0.0-3.6) Creatine Kinase MB Relative Index 2.2 % (0-4) Troponin I Quantitative < 0.017 ng/mL (0.000-0.055) RK-Neo-R-Type Natriuretic Peptide 109 pg/mL (0-449) Total Protein 7.9 g/dL (6.4-8.2) Albumin 4.2 g/dL (3.4-5.0) Albumin/Globulin Ratio 1.1 (1.0-1.7) O2 Saturation 94 % (92-99) Arterial Blood pH 7.41 (7.35-7.45) Arterial Blood pCO2 at Patient Temp 45 mmHg (35-46) Arterial Blood pO2 at Patient Temp 75 mmHg (65-108) Arterial Blood HCO3 28 mmol/L (21-28) Arterial Blood Base Excess 3 mmol/L (-3-3) Oxyhemoglobin 92.8 % Methemoglobin 0.3 % (0.0-1.9) Carbon Monoxide, Quantitative 1.4 % (0.0-1.9) FiO2 50 Medications Active Scripts Medications Dose Route/Sig Max Daily Dose Days Date Category Irbesartan 300 Mg Tablet 300 Mg PO DAILY 04/22/21 Reported Cymbalta (Duloxetine Hcl) 60 Mg Capsule.dr 120 Mg PO DAILY 04/22/21 Reported Trelegy Ellipta 100-62.5-25 (Fluticasone/Umeclidin/Vilanter) 1 Each Blst.w.dev 1 Each IH DAILY 04/22/21 Reported Lidopatch (Lidocaine/Menthol) 1 Each Adh..patch 1 Each TP DAILY 04/22/21 Reported Hydrocodone-Apap 5-325 (Hydrocodone Bit/Acetaminophen) 1 Tab Tablet 1 Tab PO DAILY 04/22/21 Reported Gabapentin (Gabapentin) 100 Mg Capsule 100 Mg PO TID 04/22/21 Reported Albuterol Sulfate Neb Soln (Albuterol Sulfate) 2.5 Mg/3 Ml Vial.neb 1 Inh NEB Q4-6HRS PRN 09/06/20 Reported Namenda (Memantine Hcl) 10 Mg Tablet 1 Tab PO BID 08/02/20 Reported Oxybutynin Chloride Er (Oxybutynin Chloride) 15 Mg Tab.er.24 1 Tab PO DAILY 08/02/20 Reported Duoneb 0.5-3(2.5) Mg/3 Ml (Albuterol/Ipratropium) 3 Ml Ampul.neb 3 Ml NEB BID 01/15/19 Rx Spironolactone 25 Mg Tablet 1 Tab PO DAILY 11/12/16 Reported Ventolin Hfa Inhaler (Albuterol Sulfate) 18 Gm Hfa.aer.ad 2 Puff INH Q4HRS 11/11/16 Reported Impression . Acute on chronic hypoxemic respiratory failure Acute exacerbation COPD Possible discharge in the a.m. Plan . PLAN: Ok to DC home today from our standpoint Continue steroids with taper Continue DALIA saldivar for cough Follow up in the office DVT/GII PPX MARIA ALEJANDRA VALENTINE MD Apr 23, 2021 10:12
[2021-04-23 11:04] VITALS: BP 125/87
--- NOTE | 2021-04-23 12:03 | PDOC ---
[facility] PROGRESS NOTE Date of Service DOS: DATE: 04/23/21 TIME: 12:02 Chief Complaint Chief Complaint A/P: Acute shortness of breath - likely COPD exacerbation. Aggressive nebs. IV steroids. Pulm consulted Adenocarcinoma of right lung - has f/u with heme/onc COPD (chronic obstructive pulmonary disease) with acute exacerbation - nebs ordered, steroids. Consult pulm Abnormal CT chest - will give antibiotics for bronchitis, early pneumonia, likely gram negative infection/atypical Acute on chronic hypoxic respiratory failure - on chronic hypoxia, likely from smoking with COPD exacerbation, will wean as tolerated to baseline. She is requesting a portable concentrator, has run out twice at her last 2 doctors appointments, turns out she already has one. Prediabetes - A1c 5.8 - cont home meds, sliding scale HTN - cont meds Recent right hemicolectomy with a revision - recovered well Current smoker - offered nicotine patch, cessation counseling FEN - ADA diet PPX - lovenox FULL CODE Dispo - inpatient for 2 midnights History of Present Illness History of Present Illness Ms Mccray is a 75yo F w/ PMHx COPD on 1 to 2 L home O2, prediabetes, HTN, prior right hemicolectomy with a revision, current smoker, and recent diagnosis of 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 Patient denies any chest pain. Patient denies any abdominal pain, no nausea vomiting. CTPA negative for PE, shows known mass in right lung. WBC 6.7, Hb 13.3, Platelets 177, Na 144, K 3.7, BUN 17, Cr 1.1, BNP 109, Trop 0, Glucose 118. EKG appears to be sinus arrhythmia with multiple PACs and variable P wave morphology rate of 87 bpm QTC 480, no ST segment elevation. She states she has tried using her inhaler with no relief. Patient was given DuoNeb treatment and Solu-Medrol IV in the ED, she continued to be short of breath especially on speaking. Breathing treatments ordered without significant improvement. She was hypoxic requiring increase of her O2 to 4 L nasal cannula and eventually BIPAP with some relief. Admitted for further care. Afebrile. Back on her home O2 breathing improved. Minimal cough productive of whitish sputum. No GI complaints. Able to stand up on her own with minimal assistance today. Vitals/I&O Vitals/I&O: Vital Signs Date Time Temp Pulse Resp B/P (MAP) Pulse Ox O2 Delivery O2 Flow Rate FiO2 04/23/21 11:27 96 Nasal Cannula 4.0 04/23/21 11:04 98.4 73 18 125/87 (100) 98.4 I & O 04/22/21 04/22/21 04/23/21 14:59 22:59 06:59 Intake Total 700 ml 650 ml 300 ml Balance 700 ml 650 ml 300 ml Physical Exam General: Alert, Oriented X3, Cooperative, moderate distress Lungs: Crackles Abdomen: Normal bowel sounds, Soft, No tenderness, No hepatosplenomegaly, No masses Extremities: No clubbing, No cyanosis, No edema, Normal pulses, No tenderness/swelling Skin: No rashes, No breakdown, No significant lesion Assessment and Plan Assessmemt and Plan Problems Medical Problems: (1) COPD exacerbation Status: Acute (2) Hypoxia Status: Acute Comment Review of Relevant I have reviewed the following items abdifatah (where applicable) has been applied. Medications: Current Medications Medications (Trade) Dose Ordered Sig/Buffy Route PRN Reason Start Time Stop Time Status Last Admin Dose Admin Miscellaneous (Lidoderm Patch Removal) 1 ea QHS 04/22/21 21:00 04/22/21 21:00 Prednisone (Prednisone) 20 mg DAILY PO 04/23/21 09:00 04/23/21 09:03 Doxycycline Hyclate (Vibra-Tab) 100 mg BID PO 04/22/21 21:00 04/23/21 09:03 Justifications for Admission Other Justification FLORY NEAL MD Apr 23, 2021 12:03
[2021-04-23] MEDS ORDERED: PRED20TA PO (13:02)
[2021-04-23] MEDS ORDERED: IPRA3AMP29 NEB (13:02)
--- NOTE | 2021-04-23 13:10 | SNU/HH DC ---
DISCHARGE WITH HOME HEALTH DISCHARGE INFORMATION: Discharge Date: Apr 23, 2021 Final Diagnosis: Problems Medical Problems: (1) COPD exacerbation Status: Acute (2) Hypoxia Status: Acute Condition on Discharge: Stable CODE STATUS: Code Status: Full HOME HEALTH: Face to Face: I certify this patient is under my care and that I, or a nurse practitioner or physician's assistant plant control operator working with me, had a face to face encounter that meets the physician face to face encounter requirements with this patient on 04/23/2021. Medical Complications: COPD Longterm For: Assess/Skilled Observatio, Medication Management RN For Eval/Treatment: Yes Physical Therapy For: Evalulation/Treatment Occupational Therapy For: Evaluation/Treatment Pt Meets Homebound Status: Fatigue w/ amb., Limited distance walking, Poor cognition POST DISCHARGE ORDERS: Activity Instructions for Disc: Activity as tolerated Weight Bearing Status after Di: As tolerated DIET AFTER DISCHARGE: Cardiac Wound/Incision Care: No wound care needed CHECKS AFTER DISCHARGE: Checks after discharge: Check blood press - daily, Check blood sugar, ac/hs, Check your Temp as needed FOLLOW-UP: DC TO SNF LABS: chem 12, cbc < 1 week TREATMENT/EQUIPMENT ORDERS: Adaptive Equipment Issued: None Discharge Respiratory Equipmen: Oxygen, Nebulizer CERTIFICATION STATEMENT: Certification Statement: Certification Statement: Based on the above finding, I certify that this patient is confined to the home and needs intermittent senior living care, physical therapy and/or speech therapy, or continues to need occupational therapy.~ This patient is under my care, and I have initiated the establishment of the plan of care.~ This patient will be followed by myself or a community physician who will periodically review the plan of care. Home Meds Active Scripts Prednisone (PREDNISONE) 20 Mg Tablet, 20 MG PO DAILY for COPD for 5 Days, #5 TAB Prov:FLORY NEAL MD 04/23/21 Ipratropium/Albuterol Sulfate (DUONEB 0.5-3(2.5) MG/3 ML) 3 Ml Ampul.neb, 3 ML NEB QID for COPD for 30 Days, #120 EACH 3 Refills Prov:FLORY NEAL MD 04/23/21 Reported Medications Irbesartan (IRBESARTAN) 300 Mg Tablet, 300 MG PO DAILY, TAB 04/22/21 Duloxetine Hcl (CYMBALTA) 60 Mg Capsule.dr, 120 MG PO DAILY, CAP 04/22/21 Fluticasone/Umeclidin/Vilanter (Trelegy Ellipta 100-62.5-25) 1 Each Blst.w.dev, 1 EACH IH DAILY 04/22/21 Lidocaine/Menthol (LIDOPATCH) 1 Each Adh..patch, 1 EACH TP DAILY, PATCH 04/22/21 Hydrocodone Bit/Acetaminophen (HYDROCODONE-APAP 5-325 ) 1 Tab Tablet, 1 TAB PO DAILY for pain, TAB 0 Refills 04/22/21 Gabapentin (GABAPENTIN ) 100 Mg Capsule, 100 MG PO TID for NEUROGENIC PAIN, CAP 04/22/21 Albuterol Sulfate (ALBUTEROL SULFATE NEB SOLN) 2.5 Mg/3 Ml Vial.neb, 1 INH NEB Q4-6HRS PRN for SHORTNESS OF BREATH 09/06/20 Memantine Hcl (NAMENDA) 10 Mg Tablet, 1 TAB PO BID for MENTAL HEALTH, #180 TAB 1 Refill 08/02/20 Oxybutynin Chloride (OXYBUTYNIN CHLORIDE ER) 15 Mg Tab.er.24, 1 TAB PO DAILY for BLADDER, #90 TAB 1 Refill 08/02/20 Spironolactone (SPIRONOLACTONE) 25 Mg Tablet, 1 TAB PO DAILY, #90 TAB 1 Refill 11/12/16 Albuterol Sulfate (VENTOLIN HFA INHALER) 18 Gm Hfa.aer.ad, 2 PUFF INH Q4HRS for FOR ASTHMA, INHALER 0 Refills 11/11/16 Discontinued Reported Medications Budesonide (BUDESONIDE) 0.5 Mg/2 Ml Ampul.neb, 1 VIAL NEB BID for copd 09/06/20 Pantoprazole Sodium (PROTONIX) 20 Mg Tablet., 1 TAB PO DAILY for GERD, #30 TAB 08/02/20 Amlodipine Besylate (AMLODIPINE BESYLATE) 10 Mg Tablet, 10 MG PO DAILY for HTN, TAB 08/02/20 Colestipol Hcl (COLESTIPOL HCL) 1 Gm Tablet, 1 TAB PO TIDAC for heart 01/22/20 Metformin Hcl (METFORMIN HCL ER) 500 Mg Tab.er.24h, 500 MG PO DAILYWBKFT for ANTI-DIABETIC, TAB 0 Refills 12/03/19 Duloxetine Hcl (CYMBALTA) 60 Mg Capsule.dr, 60 MG PO BID for pain, mood, CAP 12/03/19 Acetaminophen (TYLENOL) 325 Mg Tablet, 650 MG PO PRN Q6HRS PRN for PAIN, TAB 02/06/19 Ropinirole Hcl (REQUIP) 1 Mg Tablet, 3 MG PO HS for restless leg , TAB 01/27/16 Discontinued Scripts Doxycycline Hyclate (DOXYCYCLINE HYCLATE) 100 Mg Tablet, 1 TAB PO BID, #14 TAB Prov:ROMAN HENNING DO 09/18/20 Prednisone (PREDNISONE) 20 Mg Tablet, 1 TAB PO DAILY, #7 TAB Prov:ROMAN HENNING DO 09/18/20 Prednisone (PREDNISONE) 20 Mg Tablet, 1 TAB PO DAILY for COPD exac for 5 Days, #5 TAB Prov:RAHEEM NIXON MD 09/06/20 Tiotropium [place] (SPIRIVA) 18 Mcg Cap.w.dev, 2 INH IH DAILY for copd, #1 INH 0 Refills Prov:RAHEEM NIXON MD 09/06/20 Benzonatate (BENZONATATE) 100 Mg Capsule, 100 MG PO TID PRN for COUGH, #20 CAP Prov:ELIZABET LEE MD 08/17/20 Alprazolam (ALPRAZOLAM) 0.25 Mg Tablet, 0.25 MG PO PRN Q8HRS PRN for ANXIETY / AGITATION, #30 TAB Prov:RADAMES MÉNDEZ MD 01/15/19 FLORY NEAL MD Apr 23, 2021 13:10
--- NOTE | 2021-04-23 13:16 | PDOC3 ---
Discharge Summary Visit Information Date of Admission: Apr 22, 2021 Date of Discharge: Apr 23, 2021 Admitting Diagnosis: Acute COPD exacerbation Final Diagnosis Problems Medical Problems: (1) COPD exacerbation Status: Acute (2) Hypoxia Status: Acute Brief Hospital Course Allergies Allergies Coded Allergies Type Severity Reaction Last Updated Verified Penicillins Allergy Intermediate 04/05/20 Yes Vital Signs Vital Signs Date Time Temp Pulse Resp B/P (MAP) Pulse Ox O2 Delivery O2 Flow Rate FiO2 04/23/21 11:27 96 Nasal Cannula 4.0 04/23/21 11:04 98.4 73 18 125/87 (100) 98.4 Lab Results Laboratory Tests Test 04/22/21 01:20 04/22/21 02:05 White Blood Count 6.7 x10^3/uL (4.0-11.0) Red Blood Count 4.33 x10^6/uL (3.50-5.40) Hemoglobin 13.3 g/dL (12.0-15.5) Hematocrit 39.6 % (36.0-47.0) Mean Corpuscular Volume 91 fL (79-100) Mean Corpuscular Hemoglobin 31 pg (25-35) Mean Corpuscular Hemoglobin Concent 34 g/dL (31-37) Red Cell Distribution Width 14.2 % (11.5-14.5) Platelet Count 177 x10^3/uL (140-400) Neutrophils (%) (Auto) 57 % (31-73) Lymphocytes (%) (Auto) 27 % (24-48) Monocytes (%) (Auto) 7 % (0-9) Eosinophils (%) (Auto) 7 % (0-3) Basophils (%) (Auto) 1 % (0-3) Neutrophils # (Auto) 3.8 x10^3/uL (1.8-7.7) Lymphocytes # (Auto) 1.8 x10^3/uL (1.0-4.8) Monocytes # (Auto) 0.5 x10^3/uL (0.0-1.1) Eosinophils # (Auto) 0.5 x10^3/uL (0.0-0.7) Basophils # (Auto) 0.1 x10^3/uL (0.0-0.2) Prothrombin Time 13.9 SEC (11.7-14.0) Prothromb Time International Ratio 1.1 (0.8-1.1) Activated Partial Thromboplast Time 32 SEC (24-38) Sodium Level 144 mmol/L (136-145) Potassium Level 3.7 mmol/L (3.5-5.1) Chloride Level 104 mmol/L (98-107) Carbon Dioxide Level 31 mmol/L (21-32) Anion Gap 9 (6-14) Blood Urea Nitrogen 17 mg/dL (7-20) Creatinine 1.1 mg/dL (0.6-1.0) Estimated GFR (Cockcroft-Gault) 58.3 BUN/Creatinine Ratio 15 (6-20) Glucose Level 118 mg/dL (70-99) Lactic Acid Level 1.1 mmol/L (0.4-2.0) Calcium Level 10.0 mg/dL (8.5-10.1) Total Bilirubin 0.7 mg/dL (0.2-1.0) Aspartate Amino Transf (AST/SGOT) 24 U/L (15-37) Alanine Aminotransferase (ALT/SGPT) 30 U/L (14-59) Alkaline Phosphatase 79 U/L (46-116) Creatine Kinase 269 U/L (26-192) Creatine Kinase MB (Mass) 5.8 ng/mL (0.0-3.6) Creatine Kinase MB Relative Index 2.2 % (0-4) Troponin I Quantitative < 0.017 ng/mL (0.000-0.055) CP-Qqk-G-Type Natriuretic Peptide 109 pg/mL (0-449) Total Protein 7.9 g/dL (6.4-8.2) Albumin 4.2 g/dL (3.4-5.0) Albumin/Globulin Ratio 1.1 (1.0-1.7) O2 Saturation 94 % (92-99) Arterial Blood pH 7.41 (7.35-7.45) Arterial Blood pCO2 at Patient Temp 45 mmHg (35-46) Arterial Blood pO2 at Patient Temp 75 mmHg (65-108) Arterial Blood HCO3 28 mmol/L (21-28) Arterial Blood Base Excess 3 mmol/L (-3-3) Oxyhemoglobin 92.8 % Methemoglobin 0.3 % (0.0-1.9) Carbon Monoxide, Quantitative 1.4 % (0.0-1.9) FiO2 50 Brief Hospital Course Ms Mccray is a 75yo F w/ PMHx COPD on 1 to 2 L home O2, prediabetes, HTN, prior right hemicolectomy with a revision, current smoker, and recent diagnosis of 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 Patient denies any chest pain. Patient denies any abdominal pain, no nausea vomiting. CTPA negative for PE, shows known mass in right lung. WBC 6.7, Hb 13.3, Platelets 177, Na 144, K 3.7, BUN 17, Cr 1.1, BNP 109, Trop 0, Glucose 118. EKG appears to be sinus arrhythmia with multiple PACs and variable P wave morphology rate of 87 bpm QTC 480, no ST segment elevation. She states she has tried using her inhaler with no relief. Patient was given DuoNeb treatment and Solu-Medrol IV in the ED, she continued to be short of breath especially on speaking. Breathing treatments ordered without significant improvement. She was hypoxic requiring increase of her O2 to 4 L nasal cannula and eventually BIPAP with some relief. Admitted for further care. 48 hours of IV steroids proved significantly. Aggressive nebulizers. She does have home O2 and will get a nebulizer and prednisone prescription and has pulmonary follow-up outpatient. Afebrile. Back on her home O2 breathing improved. Minimal cough productive of whitish sputum. No GI complaints. Able to stand up on her own with minimal assistance today. Consults: Pulm Problem list: Acute shortness of breath - likely COPD exacerbation. Aggressive nebs. IV steroids. Pulm consulted Adenocarcinoma of right lung - has f/u with heme/onc COPD (chronic obstructive pulmonary disease) with acute exacerbation - nebs ordered, steroids. Consult pulm Abnormal CT chest - will give antibiotics for bronchitis, early pneumonia, likely gram negative infection/atypical Acute on chronic hypoxic respiratory failure - on chronic hypoxia, likely from smoking with COPD exacerbation, will wean as tolerated to baseline. She is requesting a portable concentrator, has run out twice at her last 2 doctors appointments, turns out she already has one. Prediabetes - A1c 5.8 - cont home meds, sliding scale HTN - cont meds Recent right hemicolectomy with a revision - recovered well Current smoker - offered nicotine patch, cessation counseling Greater than 30 minutes spent on d/c home with home health Discharge Information Condition at Discharge: Improved Follow Up: Weeks Disposition/Orders: D/C to Home w/ HH Scheduled Albuterol Sulfate (Ventolin Hfa Inhaler) 18 Gm Hfa.aer.ad, 2 PUFF INH Q4HRS for FOR ASTHMA, Ref 0 (Reported) Entered as Reported by: CHARLENE DEL CASTILLO on 11/11/16 1711 Last Action: Converted on 04/22/21599 by JEREMIAH THOMSON Duloxetine Hcl (Cymbalta) 60 Mg Capsule.dr, 120 MG PO DAILY, (Reported) Entered as Reported by: Yadira Taylor on 04/22/21541 Last Action: Converted on 04/22/21599 by JEREMIAH THOMSON Fluticasone/Umeclidin/Vilanter (Trelegy Ellipta 100-62.5-25) 1 Each Blst.w.dev, 1 EACH IH DAILY, (Reported) Entered as Reported by: Yadira Taylor on 04/22/21541 Last Action: Converted on 04/22/21599 by JEREMIAH THOMSON Gabapentin (Gabapentin ) 100 Mg Capsule, 100 MG PO TID for NEUROGENIC PAIN, (Reported) Entered as Reported by: Yadira Taylor on 04/22/21538 Last Action: Continued on 04/22/21599 by JEREMIAH THOMSON Hydrocodone Bit/Acetaminophen (Hydrocodone-Apap 5-325 ) 1 Tab Tablet, 1 TAB PO DAILY for pain, Ref 0 (Reported) Entered as Reported by: Yadira Taylor on 04/22/21538 Last Action: Continued on 04/22/21599 by JEREMIAH THOMSON Ipratropium/Albuterol Sulfate (Duoneb 0.5-3(2.5) Mg/3 Ml) 3 Ml Ampul.neb, 3 ML NEB QID for COPD for 30 Days, #120 Ref 3 Prescribed by: FLORY NEAL MD on 04/23/21 1302 Irbesartan (Irbesartan) 300 Mg Tablet, 300 MG PO DAILY, (Reported) Entered as Reported by: Yadira Taylor on 04/22/21542 Last Action: Converted on 04/22/21599 by JEREMIAH THOMSON Lidocaine/Menthol (Lidopatch) 1 Each Adh..patch, 1 EACH TP DAILY, (Reported) Entered as Reported by: Yadira Taylor on 04/22/21 0540 Last Action: Converted on 04/22/21599 by JEREMIAH THOMSON Memantine Hcl (Namenda) 10 Mg Tablet, 1 TAB PO BID for MENTAL HEALTH, #180 Ref 1 (Reported) Entered as Reported by: NICK MORA on 08/02/20812 Last Action: Continued on 04/22/21599 by JEREMIAH THOMSON Oxybutynin Chloride (Oxybutynin Chloride Er) 15 Mg Tab.er.24, 1 TAB PO DAILY for BLADDER, #90 Ref 1 (Reported) Entered as Reported by: NICK MORA on 08/02/20812 Last Action: Converted on 04/22/21599 by JEREMIAH THOMSON Prednisone (Prednisone) 20 Mg Tablet, 20 MG PO DAILY for COPD for 5 Days, #5 Prescribed by: FLORY NEAL MD on 04/23/21 1302 Spironolactone (Spironolactone) 25 Mg Tablet, 1 TAB PO DAILY, #90 Ref 1 (Reported) Entered as Reported by: CHARLENE DEL CASTILLO on 11/12/16 1835 Last Action: Continued on 04/22/21599 by JEREMIAH THOMSON Scheduled PRN Albuterol Sulfate (Albuterol Sulfate Neb Soln) 2.5 Mg/3 Ml Vial.neb, 1 INH NEB Q4-6HRS PRN for SHORTNESS OF BREATH, (Reported) Entered as Reported by: TOMASA DAVIS on 09/06/20 1054 Last Action: Continued on 04/22/21599 by JEREMIAH THOMSON Discontinued Medications Acetaminophen (Tylenol) 325 Mg Tablet, 650 MG PO PRN Q6HRS PRN for PAIN, (Reported) Discontinued Reason: pt no taki Entered as Reported by: Thor Zepeda on 02/06/19 0315 Last Action: Discontinued on 04/22/21 0538 by Yadira Taylor Alprazolam (Alprazolam) 0.25 Mg Tablet, 0.25 MG PO PRN Q8HRS PRN for ANXIETY / AGITATION, #30 Discontinued Reason: pt not on Prescribed by: RADAMES MÉNDEZ on 01/15/19 1006 Last Action: Discontinued on 04/22/21537 by Yadira Taylor Amlodipine Besylate (Amlodipine Besylate) 10 Mg Tablet, 10 MG PO DAILY for HTN, (Reported) Discontinued Reason: not taking Entered as Reported by: NICK MORA on 08/02/20 0813 Last Action: Discontinued on 04/22/21537 by Yadira Taylor Benzonatate (Benzonatate) 100 Mg Capsule, 100 MG PO TID PRN for COUGH, #20 Discontinued Reason: not taking Prescribed by: ELIZABET LEE MD on 08/17/20 1117 Last Action: Discontinued on 04/22/21537 by Yadira Taylor Budesonide (Budesonide) 0.5 Mg/2 Ml Ampul.neb, 1 VIAL NEB BID for copd, (Reported) Discontinued Reason: not on Entered as Reported by: TOMASA DAVIS on 09/06/20 1054 Last Action: Discontinued on 04/22/21537 by Yadira Taylor Colestipol Hcl (Colestipol Hcl) 1 Gm Tablet, 1 TAB PO TIDAC for heart, (Reported) Discontinued Reason: not on Entered as Reported by: MARIETTA PRICE on 01/22/20 0123 Last Action: Discontinued on 04/22/21537 by Yadira Taylor Doxycycline Hyclate (Doxycycline Hyclate) 100 Mg Tablet, 1 TAB PO BID, #14 Discontinued Reason: pt not on Prescribed by: ROMAN HENNING D.O. on 09/18/202046 Last Action: Discontinued on 04/22/21537 by Yadira Taylor Duloxetine Hcl (Cymbalta) 60 Mg Capsule.dr, 60 MG PO BID for pain, mood, (Reported) Discontinued Reason: not taking Entered as Reported by: OG HOYOS RN on 12/03/19 1405 Last Action: Discontinued on 04/22/21537 by Yadira Taylor Metformin Hcl (Metformin Hcl Er) 500 Mg Tab.er.24h, 500 MG PO DAILYWBKFT for ANTI-DIABETIC, Ref 0 (Reported) Discontinued Reason: not taking Entered as Reported by: OG HOYOS RN on 1/18/20 1405 Last Action: Discontinued on 04/22/21537 by Yadira Taylor Pantoprazole Sodium (Protonix) 20 Mg Tablet.dr, 1 TAB PO DAILY for GERD, #30 (Reported) Discontinued Reason: not taking Entered as Reported by: NICK MORA on 08/02/20 0813 Last Action: Discontinued on 04/22/21537 by Yadira Taylor Prednisone (Prednisone) 20 Mg Tablet, 1 TAB PO DAILY for COPD exac for 5 Days, #5 Discontinued Reason: not taking Prescribed by: RAHEEM NIXON MD on 09/06/20 1201 Last Action: Discontinued on 04/22/21537 by Yadira Taylor Prednisone (Prednisone) 20 Mg Tablet, 1 TAB PO DAILY, #7 Discontinued Reason: not taking Prescribed by: ROMAN HENNING D.O. on 09/18/202046 Last Action: Discontinued on 04/22/21537 by Yadira Taylor Ropinirole Hcl (Requip) 1 Mg Tablet, 3 MG PO HS for restless leg , (Reported) Discontinued Reason: pt not on Entered as Reported by: PITA GARG on 01/27/16 0455 Last Action: Discontinued on 04/22/21537 by Yadira Taylor Tiotropium [place] (Spiriva) 18 Mcg Cap.w.dev, 2 INH IH DAILY for copd, #1 Ref 0 Discontinued Reason: not taking Prescribed by: RAHEEM NIXON MD on 09/06/20 1153 Last Action: Discontinued on 04/22/21 05 by Yadira Taylor Justicifation of Admission Dx: Justifications for Admission: Justification of Admission Dx: Yes Acute COPD Exacerbation: Acute COPD Exacerbation FLORY NEAL MD Apr 23, 2021 13:16
[2021-04-23] MEDS ORDERED: BUDE0.5A3 NEB (13:17)
--- NOTE | 2021-04-23 13:40 | NUR ---
SS following up with discharge planning. SS reviewed pt chart and discussed with pt RN. Pt is currently requiring oxygen at four liters nasal canula. Pt has home oxygen through [facility], ; fax [phone]. Per pt's daughter, pt had home healthcare in the past with [facility], ; fax [phone]. Discharge orders for home healthcare received. SS faxed script for Duoneb's to [facility]. Referral sent to [facility]. Pt's daughter reporting that she will transport pt to home at 1600. Pt's RN notified.
[2021-04-23 14:57] VITALS: BP 118/72
--- NOTE | 2021-04-23 16:40 | NUR ---
Discharge Note: ELLE LATHAM [address] Discharge instructions and discharge home medications reviewed with Patient and a copy given. All questions have been answered and understanding verbalized. The following instructions and handouts were given: Shortness of breath, oxygen use. Patient's daughter did not bring patient's home oxygen take, advised [facility] social work, [facility] brought over tank, patient and patients daughter refused to take oxygen take home. IV out, leads off and placed at nursing station.
== END 2021-04-23 16:35 | disposition home health service (06) | DRG 189 ==
LOC: ER 01:01 → 6 SOUTH 03:50 → 2 SOUTH 04:51
PROVIDERS: ADMIT Family Medicine; ATTEND Family Medicine
DX: J96.21 Acute and chronic respiratory failure with hypoxia (principal); C34.91 Malignant neoplasm of unspecified part of right bronchus or lung; J43.9 Emphysema, unspecified; Z88.0 Allergy status to penicillin; I10 Essential (primary) hypertension; E11.9 Type 2 diabetes mellitus without complications; F17.211 Nicotine dependence, cigarettes, in remission; Z90.49 Acquired absence of other specified parts of digestive tract; Z82.49 Family history of ischemic heart disease and other diseases of the circulatory system; Z90.411 Acquired partial absence of pancreas; Z92.3 Personal history of irradiation
CPT/HCPCS: 36415; 36600; 71275; 80053; 82553; 82805; 83605; 83880; 84484; 85025; 85610; 85730; 87040; 93005; 94640; 94660; 96374; 99406; J1100; J1650; J7512; Q9967; 99285-25; G0378; J7626

== ENCOUNTER → 2021-06-07 | Outpatient (CLI) | payer MEDICARE ==
[~2021-06-07] MED LIST changes: +BUDE0.5A3 NEB; +FLUT1BLS3 IH; +GABA-585 PO; +IRBE300T23 PO; +LIDO1ADH TP
--- NOTE | 2021-06-08 12:22 | RAD ---
CT scan of the chest without contrast 06/07/2021 CLINICAL HISTORY: Lung cancer. TECHNIQUE: Unenhanced contiguous, 5 mm axial sections were obtained through the chest and upper abdom en. FINDINGS: Comparison study is dated 04/22/2021. Atherosclerotic calcification of the thoracic aorta and its branches is noted. The thoracic aorta is tortuous but tapers normally. The heart is normal in size. No hilar, mediastinal or axillary lymphade nopathy is seen. Scattered coronary artery calcifications are noted. A spiculated mass is seen within the right middle lobe which measures 1.2 x 0.7 x 0.7 cm in transvers e, AP and craniocaudal dimensions. This has decreased in size slightly since the previous examination where it measured 1.3 x 0.9 0.9 cm in size. No new pulmonary mass is seen. Emphysematous changes are seen throughout both lungs. No area of conso lidation is noted. Dependent subsegmental atelectasis is seen involving both lower lobes, right great er than left. No pleural effusion or pneumothorax is seen. Images through the upper abdomen demonstrate atherosclerotic calcification of the abdominal aorta and its branches. The osseous structures are unchanged. IMPRESSION: 1.2 cm spiculated mass is seen within the right middle lobe consistent with a patient's h istory of lung cancer. This has decreased in size slightly since the previous examination. No acute a bnormality is seen. Electronically signed by: Ramos Swartz MD (06/08/2021 12:20 PM) [id number]
== END ==
LOC: CT 10:30
PROVIDERS: ATTEND Radiology Radiation Oncology
DX: C34.11 Malignant neoplasm of upper lobe, right bronchus or lung (principal); R91.8 Other nonspecific abnormal finding of lung field; J43.9 Emphysema, unspecified; J98.11 Atelectasis; I70.0 Atherosclerosis of aorta
CPT/HCPCS: 71250

== ENCOUNTER 2021-07-27 08:25 | Emergency (ER) | payer MEDICARE ==
[~2021-07-27] VITALS: Ht 170.2 cm; Wt 67.0 kg
[~2021-07-27 08:25] MED LIST changes: -DOXY100C2 PO; +DOXY100C3 PO
--- NOTE | 2021-07-27 08:48 | PHYS DOC ---
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 Past Surgical History: Tonsillectomy, Other Additional Past Surgical Histo: PARTIAL PANCREATECTOMY Smoking Status: Current Every Day Smoker Alcohol Use: Occasionally Drug Use: None General Adult EDM: Chief Complaint: LOWER EXTREMITY SWELLING HPI: HPI: Patient is a 75 year old female with past medical history of COPD, HTN, DM, remote history of lung cancer in remission who presents with right lower extremity swelling for the past 3-4 days. Has some pain behind the knee on that side. She also has varicose veins that are stable and unchanged. She denies any redness or skin changes. Was sent in by her PCP for consideration of a DVT. She has had no infectious symptoms such as fever/chills. No trauma to the leg. She does have arthritis that is longstanding in her right knee, and has been wearing a knee brace for the past month. She has no recent surgeries. No his tory of DVT/PE. No active chemotherapy or cancer treatments. She was hospitalized in early April for COPD exacerbation. No blood thinners. She denies any shortness of breath aside from her baseline COPD symptoms. No chest pain. Review of Systems: Review of Systems: Constitutional: Denies fever or chills. [] Eyes: Denies change in visual acuity. [] HENT: Denies nasal congestion or sore throat. [] Respiratory: Denies cough or shortness of breath. [] Cardiovascular: Denies chest pain or edema. [] GI: Denies abdominal pain, nausea, vomiting, bloody stools or diarrhea. [] : Denies dysuria. [] Musculoskeletal: Right lower extremity swelling, chronic right knee pain [] Integument: Denies rash. [] Neurologic: Denies headache, focal weakness or sensory changes. [] Endocrine: Denies polyuria or polydipsia. [] Lymphatic: Denies swollen glands. [] Psychiatric: Denies depression or anxiety. [] Heart Score: C/O Chest Pain: No Risk Factors: Risk Factors: DM, Current or recent (<one month) smoker, HTN, HLP, family hi story of CAD, obesity. Risk Scores: Score 0 - 3: 2.5% MACE over next 6 weeks - Discharge Home Score 4 - 6: 20.3% MACE over next 6 weeks - Admit for Clinical Observation Score 7 - 10: 72.7% MACE over next 6 weeks - Early Invasive Strategies Allergies: Allergies: Allergies Coded Allergies Type Severity Reaction Last Updated Verified Penicillins Allergy Intermediate 04/05/20 Yes Physical Exam: PE: Constitutional: Well developed, well nourished, no acute distress, non-toxic appearance. [] HENT: Normocephalic, atraumatic, bilateral external ears normal, oropharynx moist, no oral exudates, nose normal. [] Eyes: PERRLA, EOMI, conjunctiva normal, no discharge. [] Neck: Normal range of motion, no tenderness, supple, no stridor. [] Cardiovascular:Heart rate regular rhythm, no murmur [] Lungs & Thorax: Bilateral breath sounds clear to auscultation [] Abdomen: Bowel sounds normal, soft, no tenderness, no masses, no pulsatile masses. [] Skin: Warm, dry, no erythema, no rash. [] Back: No tenderness, no CVA tenderness. [] Extremities: Right lower extremity with varicose veins, calf appears slightly larger than contralateral calf, but no pitting edema. DP pulse 2+, PT pulse 2+. Mild tenderness to the posterior to the knee and in the calf. No joint line tenderness. No joint effusion. Normal range of motion of the knee without significant pain. [] Neurologic: Alert and oriented X 3, normal motor function, normal sensory function, no focal deficits noted. [] Psychologic: Affect normal, judgement normal, mood normal. [] EKG: EKG: [] Radiology/Procedures: Radiology/Procedures: [] Impression: [facility] [address] [place] [address] IMAGING REPORT Signed PATIENT: ELLE LATHAM AACCOUNT: [id number] : 1945 LOCATION: ER AGE: 75 SEX: F EXAM STATUS: REG ER ORD. PHYSICIAN: KEO RIVERA MD REASON: RLE swelling PROCEDURE: VENOUS LOWER EXTREMITY RIGHT RIGHT LEG VENOUS DOPPLER STUDY: Clinical indications: Right leg swelling. Findings: Duplex sonography (including meza scale evaluation and color flow and waveform spectral analysis) of the proximal aspect of the greater saphenous vein and proximal aspect of the profunda femoral vein and the entire length of the common femoral and superficial femoral and popliteal veins and the tibioperoneal trunk and the proximal aspect of the posterior tibial and peroneal veins of the right leg was performed. Normal compressibility, augmentation of color Doppler flow after calf compression, and respiratory variation of Doppler flow is seen. Thus, there are no sonographic findings of deep venous thrombosis within these veins. Impression: There are no sonographic findings of deep venous thrombosis within the veins discussed above of the right lower extremity. Electronically signed by: Sofi Sanchez MD (07/27/2021 9:55 AM) [id number] DICTATED and SIGNED BY: SOFI SANCHEZ MD DATE: 07/27/21 [id number] 0 Course & Med Decision Making: Course & Med Decision Making Pertinent Labs and Imaging studies reviewed. (See chart for details) Patient is 75-year-old female who presents with 3-4 days of right lower extremity swelling. Sent in for consideration of DVT by PCP. Vital signs stable on arrival. Only mild enlargement of the right calf as compared to the left seen on exam. Otherwise normal exam aside from varicose veins on the right that are longstanding. We will obtain DVT ultrasound to exclude DVT. Other diagnoses considered: -No evidence of cellulitis -No evidence of septic arthritis -No signs/symptoms of PE DVT study negative. Dragon Disclaimer: Dragon Disclaimer: This electronic medical record was generated, in whole or in part, using a voice recognition dictation system. Departure Departure Impression: Primary Impression: Right leg swelling Disposition: 01 HOME / SELF CARE / HOMELESS Condition: STABLE Referrals: MINI TREJO (PCP) Additional Instructions: Your DVT ultrasound was negative. Please follow-up with your primary care doctor if the swelling persists or if you develop new symptoms like rash, leg redness, worsening pain. Please return to the emergency department if you develop chest pain or shortness of breath. KEO RIVERA MD Jul 27, 2021 08:48
--- NOTE | 2021-07-27 09:57 | RAD ---
RIGHT LEG VENOUS DOPPLER STUDY: Clinical indications: Right leg swelling. Findings: Duplex sonography (including meza scale evaluation and color flow and waveform spectral carmen lysis) of the proximal aspect of the greater saphenous vein and proximal aspect of the profunda femor al vein and the entire length of the common femoral and superficial femoral and popliteal veins and t he tibioperoneal trunk and the proximal aspect of the posterior tibial and peroneal veins of the righ t leg was performed. Normal compressibility, augmentation of color Doppler flow after calf compressio n, and respiratory variation of Doppler flow is seen. Thus, there are no sonographic findings of deep venous thrombosis within these veins. Impression: There are no sonographic findings of deep venous thrombosis within the veins discussed ab ove of the right lower extremity. Electronically signed by: Favian Sanchez MD (07/27/2021 9:55 AM) [id number]
[2021-07-27 10:40] VITALS: BP 167/92
== END 2021-07-27 10:44 | disposition home or self-care (01) ==
LOC: ER 08:25
DX: R22.41 Localized swelling, mass and lump, right lower limb (principal); J44.9 Chronic obstructive pulmonary disease, unspecified; E11.9 Type 2 diabetes mellitus without complications; I10 Essential (primary) hypertension; F17.200 Nicotine dependence, unspecified, uncomplicated; Z88.0 Allergy status to penicillin
CPT/HCPCS: 93971; 99284

== ENCOUNTER 2021-09-11 10:29 | Emergency (ER) | payer MEDICARE ==
[~2021-09-11] VITALS: Ht 170.2 cm; Wt 70.0 kg
[~2021-09-11 10:29] MED LIST changes: -DULO60CA6 PO; +DULO60CA7 PO
--- NOTE | 2021-09-11 11:13 | PHYS DOC ---
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 Past Surgical History: Other Additional Past Surgical Histo: PARTIAL PANCREATECTOMY, BOWEL RESECTION X 2 Smoking Status: Former Smoker Alcohol Use: None Drug Use: None General Adult EDM: Chief Complaint: HYPERTENSION HPI: HPI: Patient is a 75 year old female who presents with states she noticed yesterday but cannot remember what the numbers were. She states that she takes a blood pressure medication but does not remember what it is. She denies chest pain, new shortness of breath, numbness or tingling, vision change, focal weakness, headache, dizziness, swelling, abdominal pain, nausea, vomiting, fever. Patient is a poor historian. Patient's pharmacy at [facility] stated that she has not gotten any medication for blood pressure since March. He states that the only thing he could see that could possibly be for blood pressure medication is spironolactone. He states that again she has not refilled that since March. He states that she is there often and has been only refilling more acute medication such as an inhaler and thinks for her COPD. Patient has a history of lung cancer but states she is in remission. She states she does not know she got radiation or chemo but she was " placed in a tube". She also has a history of COPD, small bowel obstruction with bowel resection x2, hypertension, anemia, GI bleed, diabetes, partial pancreatomy, former smoker. She wears 4 L of oxygen at all times. Denies any pain. Review of Systems: Review of Systems: Constitutional: Denies fever or chills. [] Eyes: Denies change in visual acuity. [] HENT: Denies nasal congestion or sore throat. [] Respiratory: Denies cough or shortness of breath. [] Cardiovascular: Denies chest pain or edema. + Hypertension [] GI: Denies abdominal pain, nausea, vomiting, bloody stools or diarrhea. [] : Denies dysuria. [] Musculoskeletal: Denies back pain or joint pain. [] Integument: Denies rash. [] Neurologic: Denies headache, focal weakness or sensory changes. [] Endocrine: Denies polyuria or polydipsia. [] Lymphatic: Denies swollen glands. [] Psychiatric: Denies depression or anxiety. [] Heart Score: C/O Chest Pain: No Risk Factors: Risk Factors: DM, Current or recent (<one month) smoker, HTN, HLP, family history of CAD, obesity. Risk Scores: Score 0 - 3: 2.5% MACE over next 6 weeks - Discharge Home Score 4 - 6: 20.3% MACE over next 6 weeks - Admit for Clinical Observation Score 7 - 10: 72.7% MACE over next 6 weeks - Early Invasive Strategies Allergies: Allergies: Allergies Coded Allergies Type Severity Reaction Last Updated Verified Penicillins Allergy Intermediate 09/11/21 Yes Physical Exam: PE: Constitutional: Well developed, well nourished, no acute distress, non-toxic appearance. [] HENT: Normocephalic, atraumatic, bilateral external ears normal, oropharynx moist, no oral exudates, nose normal. [] Eyes: PERRLA, EOMI, conjunctiva normal, no discharge. [] Neck: Normal range of motion, no tenderness, supple, no stridor. [] Cardiovascular:Heart rate regular rhythm, no murmur [] Lungs & Thorax: Bilateral upper breath sounds clear lower diminished to auscultation [] Abdomen: Bowel sounds normal, soft, no tenderness, no masses, no pulsatile ma sses. [] Skin: Warm, dry, no erythema, no rash. [] Back: No tenderness, no CVA tenderness. [] Extremities: No tenderness, no cyanosis, no clubbing, ROM intact, no edema. [] Neurologic: Alert and oriented X 3, normal motor function, normal sensory function, no focal deficits noted. [] Psychologic: Affect normal, judgement normal, mood normal. [] Current Patient Data: Vital Signs: Vital Signs Date Time Temp Pulse Resp B/P (MAP) Pulse Ox O2 Delivery O2 Flow Rate FiO2 09/11/21 10:41 97.9 65 15 229/105 (146) 98 Nasal Cannula 4.0 97.9 EKG: EK and read by Dr. Alexandra is sinus rhythm and no STEMI Radiology/Procedures: Radiology/Procedures: [] Impression: [facility] [address] [place] [address] IMAGING REPORT Signed PATIENT: ELLE LATHAM AACCOUNT: [id number] : 1945 LOCATION: ER AGE: 75 SEX: F EXAM STATUS: PRE ER ORD. PHYSICIAN: OLYA MORE APRN REASON: hypertesnion PROCEDURE: PORTABLE CHEST 1V EXAM: Chest, single view. HISTORY: Hypertension. COMPARISON: 06/07/2021 FINDINGS: A frontal view of the chest is obtained. There is diffuse increased interstitial opacity. There is oblique patient positioning. No pleural effusion or pneumothorax is seen. There is a prominent cardiac silhouette. There is lumbar spinal fusion instrumentation. IMPRESSION: 1. Trace diffuse increased interstitial opacity suggesting interstitial infiltrate. 2. Prominent cardiac silhouette, likely accentuated due to oblique patient position. Electronically signed by: Judy Lerner MD (09/11/2021 11:17 AM) [id number] DICTATED and SIGNED BY: JUDY LERNER MD DATE: 09/11/21 [id number] [facility] [address] [facility] [place] [address] IMAGING REPORT Signed PATIENT: ELLE LATHAM AACCOUNT: [id number] : 1945 LOCATION: ER AGE: 75 SEX: F EXAM STATUS: REG ER ORD. PHYSICIAN: OLYA MORE APRN REASON: hypertension PROCEDURE: CT HEAD WO CONTRAST EXAM: Head CT without contrast. HISTORY: Hypertension. TECHNIQUE: Computed tomographic images of the head were obtained without contrast. *One or more of the following individualized dose reduction techniques were utilized for this examination: 1. Automated exposure control. 2. Adjustment of the mA and/or kV according to patient size. 3. Use of iterative reconstruction technique. COMPARISON: 12/10/2018. FINDINGS: There is no acute or subacute extra-axial or intraparenchymal hemorrhage. There is no mass effect or midline shift. There is no hydrocephalus. There are areas of decreased attenuation within the cerebral white matter, nonspecific and likely related to chronic small vessel disease. The visualized portions of the orbits, paranasal sinuses and mastoid air cells are unremarkable. No suspicious calvarial lesion is seen. IMPRESSION: 1. No acute intracranial finding. Note is made that MRI is more sensitive for acute infarction. 2. Bilateral cerebral white matter changes, likely due to chronic small vessel disease in a patient of this age. Electronically signed by: Judy Lerner MD (09/11/2021 11:52 AM) [id number] DICTATED and SIGNED BY: JUDY LERNER MD DATE: 09/11/21 [id number] 0 Course & Med Decision Making: Course & Med Decision Making Pertinent Labs and Imaging studies reviewed. (See chart for details) See HPI. Alert and oriented x4. Speaks in full clear sentences. Very poor historian. Ambulatory with a steady gait. Skin pink warm and dry. No extremity edema. Abdomen soft and nontender. Lungs are clear in upper lobes but diminished in lower lobes. Blood pressures in the 220s over 100s. Blood work is unremarkable. Blood pressure without any medication has gone down to the 160s. Patient remains asymptomatic. Chest x-ray shows increased interstitial opacities. I will send her with doxycycline and a Medrol Dosepak. Patient will be started on Norvasc 5 mg daily. Patient to follow-up with her primary care provider this week. [] Raimundo Disclaimer: Dragon Disclaimer: This electronic medical record was generated, in whole or in part, using a voice recognition dictation system. Departure Departure Impression: Primary Impression: HTN (hypertension) Qualified Codes: I10 - Essential (primary) hypertension Additional Impression: COPD exacerbation Disposition: HOME / SELF CARE / HOMELESS Condition: STABLE Referrals: MINI TREJO (PCP) Patient Instructions: Hypertension, Pneumonia, Adult Additional Instructions: Follow-up with your primary care provider soon as possible. I would call today to make an appointment. Take medication as prescribed and with food. Drink plenty of fluids. A been having chest pain, increase shortness of breath, fever, headache or dizziness return emergency room. Scripts Methylprednisolone (MEDROL) 4 Mg Tab.ds.pk 1 PKG PO UD, #1 PKG Prov: OLYA MORE BOX GLUER 09/11/21 Doxycycline Hyclate (DOXYCYCLINE HYCLATE) 100 Mg Capsule 1 CAP PO BID, #14 CAP Prov: OLYA MORE BOX GLUER 09/11/21 Amlodipine Besylate (NORVASC) 5 Mg Tablet 1 TAB PO DAILY, #30 TAB Prov: BAFUS,OLYA M BOX GLUER 09/11/21 OLYA MORE APRN Sep 11, 2021 11:13
--- NOTE | 2021-09-11 11:20 | RAD ---
EXAM: Chest, single view. HISTORY: Hypertension. COMPARISON: 06/07/2021 FINDINGS: A frontal view of the chest is obtained. There is diffuse increased interstitial opacity. T here is oblique patient positioning. No pleural effusion or pneumothorax is seen. There is a prominen t cardiac silhouette. There is lumbar spinal fusion instrumentation. IMPRESSION: 1. Trace diffuse increased interstitial opacity suggesting interstitial infiltrate. 2. Prominent cardiac silhouette, likely accentuated due to oblique patient position. Electronically signed by: Judy Valencia MD (09/11/2021 11:17 AM) [id number]
[2021-09-11 11:43] LABS: BASO % 1 % (0-3); EOS # 0.3 x10^3/uL (0.0-0.7); EOS % 4 % (0-3); HEMATOCRIT 37.4 % (36.0-47.0); HEMOGLOBIN 12.5 g/dL (12.0-15.5); LYMPH # 1.9 x10^3/uL (1.0-4.8); LYMPH % 25 % (24-48); MEAN CORPUSCULAR HEMOGLOBIN 31 pg (25-35); MEAN CORPUSCULAR HGB CONC 34 g/dL (31-37); MEAN CORPUSCULAR VOLUME 92 fL (79-100); MONO # 0.5 x10^3/uL (0.0-1.1); MONO % 7 % (0-9); NEUT # 4.7 x10^3/uL (1.8-7.7); NEUT % 64 % (31-73); PLATELET COUNT 163 x10^3/uL (140-400); RED BLOOD COUNT 4.05 x10^6/uL (3.50-5.40); RED CELL DISTRIBUTION WIDTH 14.5 % (11.5-14.5); WHITE BLOOD COUNT 7.5 x10^3/uL (4.0-11.0)
[2021-09-11 11:53] LABS: CALCIUM 9.3 mg/dL (8.5-10.1); CREATININE 0.8 mg/dL (0.6-1.0); GFR 84.2; POTASSIUM 3.7 mmol/L (3.5-5.1)
--- NOTE | 2021-09-11 11:54 | RAD ---
EXAM: Head CT without contrast. HISTORY: Hypertension. TECHNIQUE: Computed tomographic images of the head were obtained without contrast. *One or more of the following individualized dose reduction techniques were utilized for this examina tion: 1. Automated exposure control. 2. Adjustment of the mA and/or kV according to patient size. 3. Use of iterative reconstruction technique. COMPARISON: 12/10/2018. FINDINGS: There is no acute or subacute extra-axial or intraparenchymal hemorrhage. There is no mass effect or midline shift. There is no hydrocephalus. There are areas of decreased attenuation within the cerebral white matter, nonspecific and likely rel ated to chronic small vessel disease. The visualized portions of the orbits, paranasal sinuses and mastoid air cells are unremarkable. No s uspicious calvarial lesion is seen. IMPRESSION: 1. No acute intracranial finding. Note is made that MRI is more sensitive for acute infarction. 2. Bilateral cerebral white matter changes, likely due to chronic small vessel disease in a patient o f this age. Electronically signed by: Judy Valencia MD (09/11/2021 11:52 AM) [id number]
[2021-09-11 12:02] LABS: ALBUMIN 3.4 g/dL (3.4-5.0); ALBUMIN/GLOBULIN RATIO 0.9 (1.0-1.7); TOTAL BILIRUBIN 0.3 mg/dL (0.2-1.0); TOTAL PROTEIN 7.4 g/dL (6.4-8.2)
[2021-09-11] MEDS ORDERED: AMLO5TAB4 PO (12:24)
[2021-09-11] MEDS ORDERED: METH4TAB2 PO (12:24)
[2021-09-11] MEDS ORDERED: DOXY100C3 PO (12:24)
[2021-09-11 12:38] LABS: BILIRUBIN,URINE NEGATIVE (NEG); CLARITY,URINE CLEAR; COLOR,URINE YELLOW; NITRITE,URINE NEGATIVE (NEG); PROTEIN,URINE NEGATIVE (NEG-TRACE)
[2021-09-11 12:52] LABS: BACTERIA,URINE 0 /HPF (0-FEW); RBC,URINE OCC /HPF (0-2)
[2021-09-11 13:07] VITALS: BP 181/78
--- NOTE | 2021-09-11 17:26 | EKG ---
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
== END 2021-09-11 13:18 | disposition home or self-care (01) ==
LOC: ER 10:29
DX: I10 Essential (primary) hypertension (principal); J44.1 Chronic obstructive pulmonary disease with (acute) exacerbation; E11.9 Type 2 diabetes mellitus without complications; Z87.891 Personal history of nicotine dependence; Z88.0 Allergy status to penicillin
CPT/HCPCS: 36415; 70450; 71045; 80053; 81001; 83690; 83880; 84484; 85025; 93005; 99285-25

== ENCOUNTER 2022-01-01 05:57 | Emergency (ER) | payer MEDICARE ==
[~2022-01-01] VITALS: Ht 167.6 cm; Wt 59.1 kg
[~2022-01-01 05:57] MED LIST changes: +AMLO5TAB4 PO
--- NOTE | 2022-01-01 06:07 | PHYS DOC ---
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 Past Surgical History: Other Additional Past Surgical Histo: PARTIAL PANCREATECTOMY, BOWEL RESECTION X 2 Smoking Status: Former Smoker Alcohol Use: None Drug Use: None General Adult EDM: Chief Complaint: SHORTNESS OF BREATH HPI: HPI: Patient is a 76 year old female brought in by EMS from home for evaluation of 2 to 3 days of progressively worsening shortness of breath. She has a chronic cough, which is unchanged, she has chronic production of clear sputum. No purulent sputum or hemoptysis reported. She denies fevers or chills. She denies chest pain. She denies abdominal pain, nausea, vomiting. She has COPD and she usually wears 4 L per nasal cannula supplemental oxygen at all times. EMS reported that she was saturating 88% on her usual nasal cannula. She was given duo nebs in route, her oxygenation is now improved, she is saturating 96% on her usual 4 L. She reports feeling slightly better. She denies recent hospitalization, travel history or known sick contacts. She has been fully vaccinated against COVID-19, including booster. She has had her influenza vaccine as well. She denies lower extremity pain or swelling. She denies dizziness, diaphoresis, syncope or weakness. She continues to smoke tobacco. Review of Systems: Review of Systems: Constitutional: Denies fever or chills. [] HENT: Denies nasal congestion or sore throat. [] Respiratory: Dyspnea, wheezing, cough Cardiovascular: Denies chest pain or edema. [] GI: Denies abdominal pain, nausea, vomiting Musculoskeletal: Denies back pain or joint pain. [] Integument: Denies rash. [] Neurologic: Denies headache, focal weakness or sensory changes. [] Psychiatric: Denies depression or anxiety. [] Heart Score: C/O Chest Pain: No Risk Factors: Risk Factors: DM, Current or recent (<one month) smoker, HTN, HLP, family history of CAD, obesity. Risk Scores: Score 0 - 3: 2.5% MACE over next 6 weeks - Discharge Home Score 4 - 6: 20.3% MACE over next 6 weeks - Admit for Clinical Observation Score 7 - 10: 72.7% MACE over next 6 weeks - Early Invasive Strategies Allergies: Allergies: Allergies Coded Allergies Type Severity Reaction Last Updated Verified Penicillins Allergy Intermediate 09/11/21 Yes Physical Exam: PE: Constitutional: Well developed, well nourished, she is chronically ill- appearing, mild respiratory distress with tachypnea, nontoxic appearing HENT: Normocephalic, atraumatic Eyes: Conjunctiva normal, no discharge. [] Neck: Normal range of motion, no tenderness, supple, no stridor. Trachea midline, no JVD. Cardiovascular:Heart rate regular rhythm, systolic murmur noted, +2 dorsalis pedis and +2 radial pulses bilaterally. Lungs & Thorax: Mild tachypnea. Mild expiratory wheezes bilaterally. Slightly diminished breath sounds at bilateral bases. No retractions. No subcutaneous emphysema or crepitus of the chest or thorax. No stridor. Speaks in full sentences. No cyanosis. Abdomen: Abdomen is soft, nondistended, nontender to palpation Skin: Warm, dry, no erythema, no rash. [] Back: No tenderness, no CVA tenderness. [] Extremities: No tenderness, no cyanosis, no clubbing, ROM intact, no edema. No calf tenderness. Neurologic: Alert and oriented X 3, normal motor function, normal sensory function, no focal deficits noted. [] Psychologic: Affect normal, judgement normal, mood normal. [] EKG: EKG: EKG is interpreted at 0612 Rhythm is sinus Rate is 100 bpm [place] is left artifact No STEMI Radiology/Procedures: Radiology/Procedures: IMAGING REPORT Signed PATIENT: ELLE LATHAM AACCOUNT: [id number] : 1945 LOCATION: ER AGE: 76 SEX: F EXAM STATUS: REG ER ORD. PHYSICIAN: ELIDA VALDEZ DO REASON: dyspnea, cough, copd PROCEDURE: PORTABLE CHEST 1V XR CHEST 1V INDICATION: dyspnea, cough, copd COMPARISON STUDY: 09/11/2021. FINDINGS: Lungs: Normal lung volume. Mild right greater than left basilar opacities. Pleura: No pleural effusion or pneumothorax. Heart and Mediastinum: The cardiomediastinal silhouette is normal. Tortuous thoracic aorta. IMPRESSION: Mild right greater than left basilar opacities, which could represent subsegmental atelectasis or potentially an infectious process. Electronically signed by: Sherrill Paris MD (01/01/2022 6:53 AM) [facility] DICTATED and SIGNED BY: SHERRILL PARIS MD DATE: 01/01/22 [id number] 0 Course & Med Decision Making: Course & Med Decision Making Pertinent Labs and Imaging studies reviewed. (See chart for details) The patient is given an albuterol neb and Solu-Medrol here. Her oxygen saturation is 97 to 98% on her usual 4 L per nasal cannula. Tachypnea is resolved. She is feeling much better. Lung exam is markedly improved. She manifests no evidence of distress or hypoxia. She is afebrile, has no leukocytosis, no sputum changes. I suspect atelectasis noted on chest x-ray. There is no current indication for administration of antibiotics. I have discussed all of the findings, differential diagnosis and plan of care with her. She feels much better and requests to go home. She follows here with Dr. Hicks for her pulmonology care. I told her to contact him as well as her primary care doctor for follow-up. She reports that she frequently feels better after administration of steroids. She reports that she has plenty of her reg ular medications at home, including bronchodilator treatments. I did encourage smoking cessation. She continues to deny chest pain or chest tightness. Strict return precautions are given. She is discharged home in stable and improved condition. Raimundo Disclaimer: Raimundo Disclaimer: This electronic medical record was generated, in whole or in part, using a voice recognition dictation system. Departure Departure Impression: Primary Impression: COPD exacerbation Disposition: 01 HOME / SELF CARE / HOMELESS Condition: STABLE Referrals: MINI TREJO (PCP) Patient Instructions: Chronic Obstructive Pulmonary Disease, Chronic Obstructive Pulmonary Disease Exacerbation Additional Instructions: Take the full course of steroids as directed until gone. You may continue taking your regularly prescribed medications, including your nebulizer treatments as directed. Return to the ER for chest pain, coughing up blood, if you start coughing up yellow or green sputum, if you develop a temperature of 100.4 or higher, uncontrolled vomiting, dizziness, weakness or any other concerns. Please stop smoking tobacco. 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 Scripts Prednisone (PREDNISONE) 50 Mg Tablet 1 TAB PO DAILY for 5 Days, #5 TAB Prov: ELIDA VALDEZ DO 01/01/22 ELIDA VALDEZ DO Jan 01, 2022 06:07
[2022-01-01 06:42] LABS: BASO % 1 % (0-3); EOS # 0.5 x10^3/uL (0.0-0.7); EOS % 6 % (0-3); HEMATOCRIT 38.1 % (36.0-47.0); HEMOGLOBIN 12.7 g/dL (12.0-15.5); LYMPH # 2.3 x10^3/uL (1.0-4.8); LYMPH % 27 % (24-48); MEAN CORPUSCULAR HEMOGLOBIN 31 pg (25-35); MEAN CORPUSCULAR HGB CONC 33 g/dL (31-37); MEAN CORPUSCULAR VOLUME 93 fL (79-100); MONO # 0.5 x10^3/uL (0.0-1.1); MONO % 5 % (0-9); NEUT # 5.2 x10^3/uL (1.8-7.7); NEUT % 61 % (31-73); PLATELET COUNT 174 x10^3/uL (140-400); RED BLOOD COUNT 4.11 x10^6/uL (3.50-5.40); RED CELL DISTRIBUTION WIDTH 14.2 % (11.5-14.5); WHITE BLOOD COUNT 8.5 x10^3/uL (4.0-11.0)
[2022-01-01 06:53] LABS: CALCIUM 8.7 mg/dL (8.5-10.1); GFR 64.9; POTASSIUM 3.8 mmol/L (3.5-5.1)
--- NOTE | 2022-01-01 06:55 | RAD ---
XR CHEST 1V INDICATION: dyspnea, cough, copd COMPARISON STUDY: 09/11/2021. FINDINGS: Lungs: Normal lung volume. Mild right greater than left basilar opacities. Pleura: No pleural effusion or pneumothorax. Heart and Mediastinum: The cardiomediastinal silhouette is normal. Tortuous thoracic aorta. IMPRESSION: Mild right greater than left basilar opacities, which could represent subsegmental atelectasis or pot entially an infectious process. Electronically signed by: Hardik Paris MD (01/01/2022 6:53 AM) [facility]
[2022-01-01 06:59] LABS: ALBUMIN 3.4 g/dL (3.4-5.0); ALBUMIN/GLOBULIN RATIO 0.8 (1.0-1.7); MAGNESIUM 1.9 mg/dL (1.8-2.4); TOTAL BILIRUBIN 0.5 mg/dL (0.2-1.0); TOTAL PROTEIN 7.7 g/dL (6.4-8.2)
[2022-01-01] MEDS ORDERED: methylPREDNISolone SOD SUCC PF 125 MG/2 ML VIAL. IV ONE (07:00)
[2022-01-01] MEDS ORDERED: ALBUTEROL SULFATE 2.5 MG/3 ML NEBU. NEB ONE (07:00)
[2022-01-01 08:32] VITALS: BP 163/81
[2022-01-01] MEDS ORDERED: PRED50TA PO (08:41)
--- NOTE | 2022-01-01 14:21 | EKG ---
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
== END 2022-01-01 08:55 | disposition home or self-care (01) ==
LOC: ER 05:57
DX: J44.1 Chronic obstructive pulmonary disease with (acute) exacerbation (principal); E11.9 Type 2 diabetes mellitus without complications; I10 Essential (primary) hypertension; Z87.891 Personal history of nicotine dependence; Z88.0 Allergy status to penicillin
CPT/HCPCS: 36415; 71045; 80053; 83605; 83735; 83880; 84484; 85025; 87040; 93005; 94640; 96374; 99285; J2930; J7613

== ENCOUNTER 2022-01-21 02:28 | Emergency (ER) | payer MEDICARE ==
[~2022-01-21] VITALS: Ht 170.2 cm; Wt 70.0 kg
[2022-01-21] MEDS ORDERED: methylPREDNISolone SOD SUCC PF 125 MG/2 ML VIAL. IV ONE (02:45)
--- NOTE | 2022-01-21 03:02 | PHYS DOC ---
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 Past Surgical History: Other Additional Past Surgical Histo: PARTIAL PANCREATECTOMY, BOWEL RESECTION X 2 Smoking Status: Current Every Day Smoker Additional Information: smoked all my life. normal to have a rasp voice, [place] Alcohol Use: Occasionally Drug Use: None General Adult EDM: Chief Complaint: DYSPNEA/RESPIRATORY DISTRESS HPI: HPI: Patient is a 76 year old female with past medical history of COPD presents with a chief complaint of shortness of breath. Patient states shortness of breath has been ongoing on and off for the last few days progressively coming worse. Patient states she has a chronic cough without sputum production. Patient denies any fevers or chills. Patient states tonight prior to arrival she felt increasingly short of breath states she took multiple breathing treatments with minimal improvement. Upon EMS arrival patient was treated with a DuoNeb. On arrival patient stated that she actually felt much better. Oxygen saturations in the upper 90s on 2 L nasal cannula. Patient denied any associated chest pain. Review of Systems: Review of Systems: Constitutional: Denies fever or chills. [] Eyes: Denies change in visual acuity. [] HENT: Denies nasal congestion or sore throat. [] Respiratory: positive cough or shortness of breath. [] Cardiovascular: Denies chest pain or edema. [] GI: Denies abdominal pain, nausea, vomiting, bloody stools or diarrhea. [] : Denies dysuria. [] Musculoskeletal: Denies back pain or joint pain. [] Integument: Denies rash. [] Neurologic: Denies headache, focal weakness or sensory changes. [] Endocrine: Denies polyuria or polydipsia. [] Lymphatic: Denies swollen glands. [] Psychiatric: Denies depression or anxiety. [] Heart Score: C/O Chest Pain: N/A Risk Factors: Risk Factors: DM, Current or recent (<one month) smoker, HTN, HLP, family history of CAD, obesity. Risk Scores: Score 0 - 3: 2.5% MACE over next 6 weeks - Discharge Home Score 4 - 6: 20.3% MACE over next 6 weeks - Admit for Clinical Observation Score 7 - 10: 72.7% MACE over next 6 weeks - Early Invasive Strategies Current Medications: Current Medications Medications (Trade) Dose Ordered Sig/Buffy Start Time Stop Time Status Last Admin Dose Admin Methylprednisolone Sodium Succinate (SOLU-Medrol 125MG VIAL) 125 mg 1X ONCE 01/21/22 02:45 01/21/22 02:46 DC 01/21/22 02:54 125 MG Allergies: Allergies: Allergies Coded Allergies Type Severity Reaction Last Updated Verified Penicillins Allergy Intermediate 01/21/22 Yes Physical Exam: PE: Constitutional: Well developed, well nourished, no acute distress, non-toxic appearance. [] HENT: Normocephalic, atraumatic, bilateral external ears normal, oropharynx moist, no oral exudates, nose normal. [] Eyes: PERRLA, EOMI, conjunctiva normal, no discharge. [] Neck: Normal range of motion, no tenderness, supple, no stridor. [] Cardiovascular:Heart rate regular rhythm, no murmur [] Lungs & Thorax: Bilateral breath sounds clear to auscultation [] Abdomen: Bowel sounds normal, soft, no tenderness, no masses, no pulsatile masses. [] Skin: Warm, dry, no erythema, no rash. [] Back: No tenderness, no CVA tenderness. [] Extremities: No tenderness, no cyanosis, no clubbing, ROM intact, no edema. [] Neurologic: Alert and oriented X 3, normal motor function, normal sensory function, no focal deficits noted. [] Psychologic: Affect normal, judgement normal, mood normal. [] Current Patient Data: Vital Signs: Vital Signs Date Time Temp Pulse Resp B/P (MAP) Pulse Ox O2 Delivery O2 Flow Rate FiO2 01/21/22 02:28 98.1 82 24 151/81 (104) 93 Room Air 4.0 98.1 EKG: EKG: [] Performed at 0241 Rate 65 Normal sinus rhythm No ST elevation No ST depression No acute AL Radiology/Procedures: Radiology/Procedures: [] Impression: FINDINGS: Normal cardiomediastinal silhouette. Tortuous thoracic aorta. Ill-defined opacity in the left suprahilar lung. No pleural effusion or pneumothorax. No acute osseous process. IMPRESSION: Ill-defined opacity in the left suprahilar lung could represent atelectatic changes versus pneumonia. Course & Med Decision Making: Course & Med Decision Making Pertinent Labs and Imaging studies reviewed. (See chart for details) [] Patient was treated with Solu-Medrol and retreated with DuoNeb. Patient was discharged home on prednisone and Zithromax. Raimundo Disclaimer: Raimundo Disclaimer: This electronic medical record was generated, in whole or in part, using a voice recognition dictation system. Departure Departure Impression: Primary Impression: COPD exacerbation Disposition: HOME / SELF CARE / HOMELESS Condition: STABLE Referrals: MINI TREJO (PCP) Patient Instructions: Bronchitis Scripts Azithromycin (ZITHROMAX) 250 Mg Tablet 1 PKG PO UD, #6 TAB Prov: DAVID MCHUGH DO 01/21/22 Prednisone (PREDNISONE) 50 Mg Tablet 1 TAB PO DAILY, #5 TAB Prov: DAVID MCHUGH DO 01/21/22 DAVID MCHUGH DO Jan 21, 2022 03:02
[2022-01-21 03:10] LABS: BASO # 0.1 x10^3/uL (0.0-0.2); BASO % 1 % (0-3); EOS # 0.6 x10^3/uL (0.0-0.7); EOS % 9 % (0-3); HEMATOCRIT 36.1 % (36.0-47.0); LYMPH # 1.7 x10^3/uL (1.0-4.8); LYMPH % 23 % (24-48); MEAN CORPUSCULAR HEMOGLOBIN 31 pg (25-35); MEAN CORPUSCULAR HGB CONC 33 g/dL (31-37); MEAN CORPUSCULAR VOLUME 93 fL (79-100); MONO # 0.5 x10^3/uL (0.0-1.1); MONO % 7 % (0-9); NEUT # 4.3 x10^3/uL (1.8-7.7); NEUT % 61 % (31-73); PLATELET COUNT 169 x10^3/uL (140-400); RED CELL DISTRIBUTION WIDTH 14.1 % (11.5-14.5); WHITE BLOOD COUNT 7.1 x10^3/uL (4.0-11.0)
[2022-01-21 03:17] LABS: CALCIUM 9.1 mg/dL (8.5-10.1); GFR 64.9; POTASSIUM 4.3 mmol/L (3.5-5.1)
[2022-01-21 03:23] LABS: ALBUMIN 3.8 g/dL (3.4-5.0); TOTAL BILIRUBIN 0.4 mg/dL (0.2-1.0); TOTAL PROTEIN 7.6 g/dL (6.4-8.2)
--- NOTE | 2022-01-21 03:28 | RAD ---
EXAMINATION: Chest radiograph. VIEWS: 1 COMPARISON: 01/01/2022 INDICATION:76 years, Female, cough. FINDINGS: Normal cardiomediastinal silhouette. Tortuous thoracic aorta. Ill-defined opacity in the left suprahi lar lung. No pleural effusion or pneumothorax. No acute osseous process. IMPRESSION: Ill-defined opacity in the left suprahilar lung could represent atelectatic changes versus pneumonia. Electronically signed by: Campbell Dewey MD (01/21/2022 3:26 AM) [facility]
[2022-01-21] MEDS ORDERED: IPRATRPIUM/ALBUTEROL 0.5/2.5MG 3 ML NEBU. NEB ONE (03:45)
[2022-01-21] MEDS ORDERED: PRED50TA PO (04:23)
[2022-01-21] MEDS ORDERED: AZIT250T PO (04:23)
[2022-01-21 05:01] VITALS: BP 166/93
--- NOTE | 2022-01-23 08:34 | EKG ---
[facility] [address] [place] [address] Test Date: 2022-01-21 Test Time: 02:41:39 Pat Name: ELLE LATHAM Department: Room: Gender: F Language Asst: : 1945 Requested By: DAVID MCHUGH Order Number: [id number] Reading MD: Jaswinder Tucker Measurements Intervals [place] Rate: 65 P: -49 WI: 136 QRS: 11 QRSD: 82 T: 77 QT: 436 QTc: 454 Interpretive Statements SINUS RHYTHM ATRIAL PREMATURE COMPLEX(ES) T ABNORMALITY IN HIGH LATERAL LEADS Electronically Signed On 01-23-2022 8:39:45 SMALL EQUIPMENT OPERATOR by Jaswinder Tucker
== END 2022-01-21 05:47 | disposition home or self-care (01) ==
LOC: ER 02:28
DX: J44.1 Chronic obstructive pulmonary disease with (acute) exacerbation (principal); E11.9 Type 2 diabetes mellitus without complications; I10 Essential (primary) hypertension; F17.200 Nicotine dependence, unspecified, uncomplicated; Z88.0 Allergy status to penicillin
CPT/HCPCS: 36415; 71045; 80053; 84484; 85025; 93005; 94640; 96374; 99285; J2930